=== PATIENT | female | born 1950 | race Caucasian/White ===

== ENCOUNTER → 2018-06-05 07:39 | Outpatient (CLI) | payer MEDICARE, SELFPAY ==
--- NOTE | 2018-06-05 07:43 | CT_ITS ---
CT abdomen pelvis wo con CLINICAL INDICATION: Right flank pain, hematuria ITS.REASON: RUQ PAIN, FLANK PAIN ORDERING PHYSICIAN: Camila Parekh PATIENT AGE: 67 years COMPARISON: 04/26/2016 TECHNIQUE: Axial images obtained with sagittal and coronal reformats. All CT scans at the facility use one or more dose reduction, viz: automated exposure control, ma/kV adjustment per patient size (including targeted exams where dose is matched to indication, i.e. head), or iterative reconstruction technique. PROCEDURE: Oral Contrast: None IV Contrast: None . FINDINGS: Lung bases are clear. Coronary artery calcifications. Prior cholecystectomy without ductal dilatation. The spleen, adrenal glands, and pancreas have an unremarkable unenhanced appearance. There are multiple bilateral nonobstructing renal calculi measuring up to 3 mm in the upper pole on the right and 4 mm in the mid polar region on the left is small bilateral renal cysts noted. No hydronephrosis. No ureteral calculi. No evidence of appendicitis. No intestinal obstruction or free air. Prior hysterectomy. No pelvic mass or abnormal fluid collection or focal inflammatory change evident. There is some sclerosis of the right SI joint with degenerative disc disease noted at the lumbosacral junction. IMPRESSION: 1. No acute finding. 2. Nonobstructing bilateral renal calculi. No hydronephrosis. No ureteral calculi.
== END ==
PROVIDERS: PCP Nurse Practitioner; Visit Provider Nurse Practitioner
DX: R10.9 Unspecified abdominal pain (principal); R10.11 Right upper quadrant pain
CPT/HCPCS: 74176

== ENCOUNTER 2018-07-14 15:21 | Outpatient (CLI) | payer MEDICARE, SELFPAY ==
[2018-07-14 14:10] VITALS: BP 144/72; PULSE 72; RESP 20; TEMP 36.9; O2SAT 98
[2018-07-14 15:00] VITALS: BP 138/74; PULSE 74; RESP 20; TEMP 36.9; O2SAT 97
[2018-07-14 16:10] VITALS: BP 152/74; PULSE 68; RESP 20; TEMP 37.1; O2SAT 95
== END 2018-07-14 16:25 | disposition home or self-care (01) ==
LOC: INF 15:21
PROVIDERS: Visit Provider Nurse Practitioner
DX: E86.0 Dehydration (principal)
CPT/HCPCS: 96360; 96361

== ENCOUNTER → 2019-02-16 13:39 | Outpatient (POV) | payer MEDICARE, SELFPAY | PROVIDERS: Visit Provider Dermatology | DX: Z00.00 Encounter for general adult medical examination without abnormal findings (principal) ==

== ENCOUNTER 2019-06-28 08:47 | Outpatient (CLI) | payer MEDICARE, SELFPAY ==
[2019-06-28 08:55] VITALS: BP 120/44; PULSE 77; RESP 20; TEMP 36.6; O2SAT 98
[2019-06-28 09:25] VITALS: BP 122/49; PULSE 79; RESP 20; O2SAT 97
[2019-06-28 09:55] VITALS: BP 118/50; PULSE 76; RESP 20; O2SAT 97
[2019-06-28 10:25] VITALS: BP 121/52; PULSE 74; RESP 20; O2SAT 98
[2019-06-28 10:55] VITALS: BP 120/47; PULSE 78; RESP 20; O2SAT 97
[2019-06-28 11:15] VITALS: BP 123/50; PULSE 74; RESP 20; O2SAT 98
[2019-06-28 11:43] LABS: POC Glucose,Bedside 386 (70-110)
[2019-06-28 13:14] LABS: POC Glucose,Bedside 510 (70-110)
== END 2019-06-28 11:15 | disposition home or self-care (01) ==
LOC: INF 08:48
PROVIDERS: PCP Family Medicine; Visit Provider Nurse Practitioner
DX: E11.65 Type 2 diabetes mellitus with hyperglycemia (principal); Z79.4 Long term (current) use of insulin
CPT/HCPCS: 82962; 96360; 96361; 96375

== ENCOUNTER 2019-12-15 08:54 | Outpatient (CLI) | payer MEDICARE, SELFPAY ==
[2019-12-15 08:59] VITALS: BMI 25.8
[2019-12-15 09:10] VITALS: BP 129/69; PULSE 67; RESP 18
[2019-12-15 09:22] LABS: Basophils # 0.1 K/mm3 (0-0.2); Basophils % 0.7 % (0.1-2.0); Eosinophils # 0.4 K/mm3 (0.0-0.4); Eosinophils % 3.7 % (0.1-12.0); Hematocrit 40.8 % (37.0-47.0); Hemoglobin 13.9 g/dL (12.2-16.2); Lymphocytes % 44.1 % (10-50); Mean Corpuscular HGB Conc 34.2 g/dL (31.8-35.4); Mean Corpuscular Hemoglobin 31.1 pg (27.0-31.2); Mean Corpuscular Volume 90.8 fl (81-99); Mean Platelet Volume 7.9 fl (7.4-10.4); Monocytes # 0.4 K/mm3 (0.1-1.0); Monocytes % 3.5 % (1.7-9.3); Neutrophils # 5.4 K/mm3 (1.8-7.8); Platelet Count 302 K/mm3 (142-424); Red Blood Count 4.49 M/mm3 (4.20-5.40); Red Cell Distribution Width 15.5 % (11.5-17.5); White Blood Count 11.2 K/mm3 (4.8-10.8)
[2019-12-15 09:34] LABS: Chloride 103 mmol/L (98-107); Potassium 5.1 mmoL/L (3.5-5.1); Sodium 136 mmol/L (136-145)
[2019-12-15 09:37] LABS: Alanine Aminotransferase 15 U/L (12-78); Albumin Level 4.1 g/dl (3.5-5.0); Albumin/Globulin Ratio 1.3 (1.1-1.8); Alkaline Phosphatase 112 U/L (38-126); Anion Gap 13.1 mEq/L (5-15); Aspartate Amino Transferase 18 U/L (14-36); Bilirubin,Total 0.4 mg/dl (0.2-1.3); Blood Urea Nitrogen 34 mg/dl (7-17); Carbon Dioxide 25 mmol/L (22.0-30.0); Creatinine Clearance Estimated 48 mL/min (50-200); Estimated Glomerular Filt Rate 40 ml/min (>60); GFR (African American) 49 ML/MIN (>60); Globulin 3.1 g/dL (1.3-3.2); Total Protein,Serum 7.2 g/dl (6.3-8.2)
[2019-12-15 09:38] LABS: Calcium 9.2 mg/dl (8.4-10.2); Glucose 374 mg/dl (74-100)
[2019-12-15 11:05] VITALS: BP 112/66; PULSE 63; RESP 18
== END 2019-12-15 11:05 | disposition home or self-care (01) ==
LOC: INF 08:56
PROVIDERS: PCP Nurse Practitioner; Visit Provider Nurse Practitioner
DX: E86.0 Dehydration (principal); R30.0 Dysuria
CPT/HCPCS: 80053; 85025; 96360; 96361; 96375; J2405

== ENCOUNTER 2020-03-17 11:25 | Inpatient (IN) | payer MEDICARE, SELFPAY ==
[2020-03-17] VITALS (11 sets, daily range): BP systolic 107–158; BP diastolic 56–78; PULSE 68–90; RESP 16–72; TEMP 36.9–38.8; O2SAT 94–99; BMI 25.9; BMI 34.0
--- NOTE | 2020-03-17 11:45 | ECG_ITS ---
APPROVED REPORT Exam: Resting ECG HR:85 bpm ECG Measurements Heart Rate 85 AXES IL 148 P 50 QRSd 88 QRS -3 QT 382 T 64 QTc 454 <Conclusion> Normal sinus rhythm Poor R Wave Progression Abnormal ECG Electronically signed by : Albert Cain, 03/17/2020 17:32:19
--- NOTE | 2020-03-17 11:52 | PC.NURSE ---
FSBS 507 pt states she drank 3 soft drinks this morning
[2020-03-17 11:53] LABS: POC Glucose,Bedside 507 (70-110)
--- NOTE | 2020-03-17 11:56 | PC.NURSE ---
Pt up to restroom
--- NOTE | 2020-03-17 12:02 | HMH.EDWEAK ---
ED Disposition Clinical Impression: DKA (diabetic ketoacidoses) Qualifiers: Diabetes mellitus type: type 2 Diabetes mellitus complication detail: without coma Qualified Code(s): E11.10 - Type 2 diabetes mellitus with ketoacidosis without coma UTI (urinary tract infection) Qualifiers: Urinary tract infection type: acute cystitis Hematuria presence: without hematuria Qualified Code(s): N30.00 - Acute cystitis without hematuria Disposition: Admitted As Inpatient Condition on Discharge: Serious - Critical Care Critical Care Time: Yes Attestation: On 03/17/20, the high probability of a clinically significant, sudden or life threatening deterioration of the following system(s) required my full and direct attention, intervention and personal management. The time I documented below is in addition to time spent performing reported procedures but includes the following listed in this critical care notation. Total Critical Care Time: 30 Vital system(s) involved:: Circulatory Failure, Metabolic Failure, Renal Failure My critical care processes included: Assessment & monitoring of V/S, Initial and Re-exams, Data Review/Interpretation, Coordinating Care, Medication Orders and management Medical Decision Making - Medical Records Medical records reviewed: Yes: I reviewed the patient's medical records. - Xu Inquiry Pt receiving controlled substance: No Vital Signs: 03/17/20 11:36 03/17/20 12:00 03/17/20 12:57 Temperature 101.6 F H Temperature Source Oral Pulse Rate Pulse Rate [Left Radial] 85 87 80 Respiratory Rate 16 Blood Pressure Blood Pressure [Right Arm] 158/65 H 139/57 L 135/56 L Blood Pressure Mean [Right Arm] 96 84 82 Blood Pressure Source [Right Arm] Automatic Cuff Automatic Cuff Blood Pressure Position Blood Pressure Position [Right Arm] Sitting Sitting Sitting 02 Sat by Pulse Oximetry 98 97 95 Oxygen Delivery Method Room Air Room Air 03/17/20 14:43 03/17/20 15:52 Temperature 98.6 F Temperature Source Oral Pulse Rate 68 Pulse Rate [Left Radial] 75 Respiratory Rate 16 Blood Pressure 121/78 Blood Pressure [Right Arm] 134/66 Blood Pressure Mean [Right Arm] 88 Blood Pressure Source [Right Arm] Automatic Cuff Blood Pressure Position Sitting Blood Pressure Position [Right Arm] Sitting 02 Sat by Pulse Oximetry 94 L Oxygen Delivery Method Room Air Room Air - Lab Data Lab Results 03/17/20 11:51: POC Glucose 507 H* 03/17/20 12:10: WBC 18.2 H, RBC 4.50, Hgb 13.9, Hct 41.8, MCV 92.9, MCH 30.9, MCHC 33.3, RDW 14.8, Plt Count 279, MPV 7.7, Neut % (Auto) 78.7, Lymph % (Auto) 16.8, [place] % (Auto) 3.3, Eos % (Auto) 0.9, Baso % (Auto) 0.3, Neut # (Auto) 14.3 H, Lymph # (Auto) 3.1, [place] # (Auto) 0.6, Eos # (Auto) 0.2, Baso # (Auto) 0.1, Total Counted 100, Neutrophils % (Manual) 79 H, Lymphocytes % (Manual) 15, Monocytes % (Manual) 5, Eosinophils % (Manual) 1, Platelet Estimate Normal, RBC Morphology Normal 03/17/20 12:10: Sodium 132 L, Potassium 4.6, Chloride 96 L, Carbon Dioxide 23, Anion Gap 17.6 H, BUN 16, Creatinine 1.00, Estimated Creat Clear 61, Estimated GFR 55 L, Est GFR ( Amer) 66, Glucose 547 H*, Calcium 9.8, Total Bilirubin 0.8, AST 24, ALT 18, Alkaline Phosphatase 141 H, Total Protein 7.0, Albumin 3.8, Globulin 3.2, Albumin/Globulin Ratio 1.2 03/17/20 12:10: Lactate 3.0 H 03/17/20 12:10: Acetone Level None detected 03/17/20 12:10: SARS-CoV-2 IgG Ab (Rapid) Negative, SARS-CoV-2 IgM Ab (Rapid) Negative 03/17/20 12:59: VBG pH 7.30 L, VBG pCO2 48.9, VBG pO2 42.2 H, VBG HCO3 23.4, VBG Total CO2 24.9, VBG O2 Saturation 75.3 H, VBG Base Excess -3.1 L 03/17/20 13:41: Urine Color Yellow, Urine Appearance Sl cloudy, Urine pH 5.5, Ur Specific [place] <= 1.005, Urine Protein Negative, Urine Glucose (UA) 3+, Urine Ketones Negative, Urine Blood Trace-i, Urine Nitrate Positive, Urine Bilirubin Negative, Urine Urobilinogen 0.2, Ur Leukocyte Esterase Negative, Urine RBC 5-10, Urine WBC 20-50, Ur Squamous
--- NOTE | 2020-03-17 12:06 | XR_ITS ---
PROCEDURE: XR CHEST PORTABLE CLINICAL HISTORY: cough COMPARISON: CR CXR CHEST(2 VIEWS-NOT PORTABLE) from 03/06/2013 CR CXR CHEST(2 VIEWS-NOT PORTABLE) from 10/06/2014 CR XR CHEST 2V from 07/06/2019 FINDINGS: The cardiomediastinal silhouette and pulmonary vascularity are within normal limits. The lungs are clear without infiltrates, suspicious nodules, or pleural effusions. No acute bony abnormalities. There is a small calcification or ossification projecting near the neck of the left humerus which could either represent a small exostoses or possibly a calcified node. IMPRESSION: No acute findings. Dictated by: Dr. Dagoberto Pineda MD 03/17/2020 12:51 Dr. Dagoberto Pineda MD in [place] 03/17/2020 12:51
[2020-03-17 12:25] LABS: Basophils # 0.1 K/mm3 (0-0.2); Basophils % 0.3 % (0.1-2.0); Eosinophils # 0.2 K/mm3 (0.0-0.4); Eosinophils % 0.9 % (0.1-12.0); Hematocrit 41.8 % (37.0-47.0); Hemoglobin 13.9 g/dL (12.2-16.2); Lymphocytes # 3.1 K/mm3 (0.7-4.5); Lymphocytes % 16.8 % (10-50); Mean Corpuscular HGB Conc 33.3 g/dL (31.8-35.4); Mean Corpuscular Hemoglobin 30.9 pg (27.0-31.2); Mean Corpuscular Volume 92.9 fl (81-99); Mean Platelet Volume 7.7 fl (7.4-10.4); Monocytes # 0.6 K/mm3 (0.1-1.0); Monocytes % 3.3 % (1.7-9.3); Neutrophils # 14.3 K/mm3 (1.8-7.8); Neutrophils % 78.7 % (37.0-80.0); Platelet Count 279 K/mm3 (142-424); Red Cell Distribution Width 14.8 % (11.5-17.5); White Blood Count 18.2 K/mm3 (4.8-10.8)
[2020-03-17 12:28] LABS: Chloride 96 mmol/L (98-107); MANUAL DIFFERENTIAL MANUAL DIFFERENTIAL (MANUAL DIFF); Potassium 4.6 mmoL/L (3.5-5.1); Sodium 132 mmol/L (136-145)
--- NOTE | 2020-03-17 12:29 | PC.NURSE ---
Rad at bedside
[2020-03-17 12:30] LABS: Blood Urea Nitrogen 16 mg/dl (7-17); Creatinine Clearance Estimated 61 mL/min (50-200); Estimated Glomerular Filt Rate 55 ml/min (>60); GFR (African American) 66 ML/MIN (>60)
[2020-03-17 12:31] LABS: Alanine Aminotransferase 18 U/L (12-78); Albumin Level 3.8 g/dl (3.5-5.0); Albumin/Globulin Ratio 1.2 (1.1-1.8); Alkaline Phosphatase 141 U/L (38-126); Anion Gap 17.6 mEq/L (5-15); Aspartate Amino Transferase 24 U/L (14-36); Bilirubin,Total 0.8 mg/dl (0.2-1.3); Calcium 9.8 mg/dl (8.4-10.2); Carbon Dioxide 23 mmol/L (22.0-30.0); Globulin 3.2 g/dL (1.3-3.2)
[2020-03-17 12:32] LABS: Glucose 547 mg/dl (74-100)
[2020-03-17 12:39] LABS: Eosinophils % 1 % (0-3); Lymphocytes % 15 % (10-50); Monocytes % 5 % (2-9); Neutrophils % 79 % (42-76); Platelet Estimate Normal; RBC Morphology Normal; Total Cells Counted 100
[2020-03-17 12:40] LABS: Acetone, Serum (Rapid) None Detected (None Detect)
[2020-03-17 13:11] LABS: VBG Base Excess -3.1 mmol/L (-2.4-2.3); VBG HCO3 23.4 mmol/L (23-30); VBG Oxygen Saturation 75.3 % (50-70); VBG PCO2 48.9 mmol/L (35-51); VBG PO2 42.2 mmol/L (28-40); VBG Total CO2 24.9 mmol/L (23-27)
[2020-03-17 14:10] LABS: Microscopic, Urine URINE MICROSCOPIC (MICROSCOPIC)
[2020-03-17 14:11] LABS: Appearance,Urine SL CLOUDY (Clear); Bilirubin,Urine Negative (Negative); Blood, Urine TRACE-I (Negative); Color,Urine YELLOW (Yellow); Glucose,Urine (UA) 3+ (Negative); Ketones,Urine Negative (Negative); Leukocyte Esterase,Urine Negative (Negative); Nitrate,Urine POSITIVE (Negative); PH,Urine 5.5 (5.0-8.5); Protein,Urine Negative (Negative); Specific Gravity, Urine <= 1.005 (1.005-1.030); Urobilinogen,Urine 0.2 EU/dl (0.2)
[2020-03-17 14:19] LABS: Bacteria,Urine 4+ /lpf; WBC,Urine 20-50 #/hpf (0-3)
--- NOTE | 2020-03-17 14:43 | PC.NURSE ---
calling dr carey at this time.
[2020-03-17 14:58] LABS: Coronavirus 19 IgG Antibody Negative (Negative); Coronavirus 19 IgM Antibody Negative (Negative)
--- NOTE | 2020-03-17 15:24 | PC.NURSE ---
REPORT CALLED TO FLOOR
[2020-03-17 16:16] LABS: Reflex Lactic Add Lactic Reflex
[2020-03-17 16:43] LABS: Lactic Acid Follow Up (RFLX 1) 2.4 mmol/L (0.7-2.1); Reflex Lactic (2 hrs) Add Lactic Reflex
--- NOTE | 2020-03-17 17:27 | HMH.HP ---
*Admission Date: 03/17/20 *Chief complaint: Weakness *History of present illness: 69-year-old female with long history of uncontrolled diabetes presented to the emergency department with generalized weakness and fever. Patient was found to have elevated blood sugars and was mildly acidotic on a venous blood gas and has been admitted for treatment of diabetic ketoacidosis. Patient reports blood sugars have been between 3 and 500 over the last several days. She has been taking her prescribed medications which does include insulin. She denies infectious symptoms of cough, shortness of breath, dysuria, urinary frequency or urgency, runny nose or sore throat, vomiting or diarrhea. Patient received fluid bolus in the emergency department and reports feeling improvement after receiving IV fluids. Patient apparently has a history of becoming dehydrated for which she will receive outpatient fluids periodically. Due to patient's fever, elevated white blood cell count, abnormal urinalysis and diabetic ketoacidosis patient was admitted for medical management. [facility] History I have reviewed the patient's past medical history: Yes Medical History: Reports:: Diabetes Mellitus Type 2, Hypertension Denies:: Diabetes Mellitus Type 1, Internal Pacemaker *Have you ever received a pneumonia vaccine?: Yes *Have you received a flu vaccine this season?: Yes Other Surgeries: No: Pacemaker - *Social History Last grade of school completed: High school graduate Smoking Status: Never smoker Alcohol Intake: never *Occupational Status:: employed Housing: house *Travel in the last 8 weeks: None Family Hx:: No significant family history Review of Systems - Review of Systems Review of systems:: pertinent systems reviewed and negative unless documented below - Constitutional Denies body ache(s), Denies chills - Eyes Denies blurry vision, Denies change in vision - *Cardiovascular Denies chest pain, Denies chest pain at rest - *Respiratory Denies change in phlegm color, Denies chest congestion, Denies cough - *Gastrointestinal Denies abdominal pain, Denies belching, Denies bloating - *Genitourinary Denies difficulty urinating, Denies frequent nighttime urination, Denies difficulty starting urination, Denies urinary incontinence - *Musculoskeletal Denies joint pain - *Neurologic Reports weakness, Denies abnormal walking, Denies abnormal hearing - Psychiatric Reports lack of enjoyment Meds Home Medications Medication Instructions Recorded Confirmed Type Aspirin [Aspirin EC 325mg Tab] 325 mg PO DAILY 10/21/18 03/17/20 History Insulin Glargine,Hum.rec.anlog 45 unit SQ DAILY 10/21/18 03/17/20 History [Lantus Insulin 100units/mL 10mL vial] Insulin Lispro [Humalog] 10 unit SQ AC 10/21/18 03/17/20 History Meloxicam [Mobic 15 mg tab] 15 mg PO DAILY 10/21/18 03/17/20 History allopurinoL [Allopurinol 300mg 300 mg PO DAILY 10/21/18 03/17/20 History tablet] Dapagliflozin/Metformin HCl 1 each PO DAILY 03/17/20 03/17/20 History [Xigduo Xr 10 mg-1,000 mg Tab] Levothyroxine Sodium 112 mcg PO DAILY 03/17/20 03/17/20 History [Levothyroxine 112mcg (0.112mg) Tab] Spironolactone 50 mg PO DAILY 03/17/20 03/17/20 History clonazePAM [Clonazepam] 1 mg PO DAILY PRN 03/17/20 03/17/20 History Allergies Allergy/AdvReac Type Severity Reaction Status Date / Time moxifloxacin Allergy Severe S-ANAPHYLAX Verified 07/06/19 15:53 IS Sulfa (Sulfonamide Allergy Mild NA-NAUSEA/V Verified 07/06/19 15:53 Antibiotics) OMITING Exam Vital signs and Labs for Last 24 Hours: Temp Pulse Resp BP Pulse Ox 98.4 F 72 72 H 107/64 L 97 03/17/20 16:00 03/17/20 16:00 03/17/20 16:00 03/17/20 16:00 03/17/20 16:00 Laboratory Results - last 24 hr 03/17/20 11:51: POC Glucose 507 H* 03/17/20 12:10: WBC 18.2 H, RBC 4.50, Hgb 13.9, Hct 41.8, MCV 92.9, MCH 30.9, MCHC 33.3, RDW 14.8, Plt Count 279, MPV 7.7, Neut % (Auto) 78.7, Ly
[2020-03-17 18:40] LABS: Chloride 105 mmol/L (98-107); Sodium 137 mmol/L (136-145)
[2020-03-17 18:41] LABS: Potassium 3.6 mmoL/L (3.5-5.1)
[2020-03-17 18:43] LABS: Anion Gap 12.6 mEq/L (5-15); Blood Urea Nitrogen 16 mg/dl (7-17); Carbon Dioxide 23 mmol/L (22.0-30.0); Creatinine Clearance Estimated 80 mL/min (50-200); Estimated Glomerular Filt Rate 55 ml/min (>60); GFR (African American) 66 ML/MIN (>60); Lactic Acid Follow up (RFLX 2) 2.5 mmol/L (0.7-2.1)
[2020-03-17 18:44] LABS: Glucose 133 mg/dl (74-100)
[2020-03-17 19:03] LABS: Calcium 8.6 mg/dl (8.4-10.2)
--- NOTE | 2020-03-17 19:15 | PC.NURSE ---
report given to donn
--- NOTE | 2020-03-17 20:24 | PC.NURSE ---
1600- FSBG 301, increased insulin gtt to 15.2units/hr 1700- fsbg 231- no changes to insulin gtt 1800- fsbg 175 no changes to insulin gtt 1900- fsbg 154 no changes to insulin gtt
[2020-03-17 22:13] LABS: POC Glucose,Bedside 301 (70-110)
[2020-03-17 22:13] LABS: POC Glucose,Bedside 231 (70-110)
[2020-03-17 22:13] LABS: POC Glucose,Bedside 154 (70-110)
[2020-03-17 22:13] LABS: POC Glucose,Bedside 175 (70-110)
[2020-03-17 22:13] LABS: POC Glucose,Bedside 142 (70-110)
[2020-03-17 22:22] LABS: POC Glucose,Bedside 129 (70-110)
[2020-03-17 22:22] LABS: POC Glucose,Bedside 98 (70-110)
[2020-03-17 23:23] LABS: POC Glucose,Bedside 150 (70-110)
[2020-03-18] VITALS (8 sets, daily range): BP systolic 107–146; BP diastolic 51–72; PULSE 66–92; RESP 16–24; TEMP 36.6–38.7; O2SAT 94–100; BMI 28.5
--- NOTE | 2020-03-18 00:23 | PC.NURSE ---
rn aware of hr, rr, and temp for 0000 vitals
[2020-03-18 00:45] LABS: Anion Gap 9.9 mEq/L (5-15); Blood Urea Nitrogen 16 mg/dl (7-17); Calcium 8.3 mg/dl (8.4-10.2); Carbon Dioxide 23 mmol/L (22.0-30.0); Chloride 107 mmol/L (98-107); Creatinine Clearance Estimated 80 mL/min (50-200); Estimated Glomerular Filt Rate 55 ml/min (>60); GFR (African American) 66 ML/MIN (>60); Glucose 209 mg/dl (74-100); Potassium 3.9 mmoL/L (3.5-5.1); Sodium 136 mmol/L (136-145)
[2020-03-18 01:21] LABS: POC Glucose,Bedside 184 (70-110)
[2020-03-18 01:21] LABS: POC Glucose,Bedside 192 (70-110)
[2020-03-18 02:41] LABS: POC Glucose,Bedside 342 (70-110)
--- NOTE | 2020-03-18 03:05 | PC.NURSE ---
Pt has been febrile this shift. Medicated per aug. notified of positive blood cultures. Repeat blood cultures per MD. Rocephin DC. Cefepime 2 GM Q12 ordered. No additional lactic at this time. Pt has been up to BR x2 this shift. Incontinent x1. Denies any discomfort with urination. During ambulation, pt noted to be unstable on feet. BSC placed at bedside. Pt has been educated on using call light when assistance is needed, but forgets. Reinforcement needed. Safety measures in place. Insulin gtt infusing @ 3.3 units/hr at this time. Titrated per protocol. No other needs. Will continue to monitor.
[2020-03-18 04:08] LABS: POC Glucose,Bedside 225 (70-110)
[2020-03-18 05:59] LABS: POC Glucose,Bedside 208 (70-110)
[2020-03-18 06:31] LABS: POC Glucose,Bedside 158 (70-110)
[2020-03-18 07:09] LABS: Basophils # 0.1 K/mm3 (0-0.2); Basophils % 0.4 % (0.1-2.0); Eosinophils % 0.1 % (0.1-12.0); Hematocrit 34.3 % (37.0-47.0); Lymphocytes # 2.7 K/mm3 (0.7-4.5); Lymphocytes % 22.9 % (10-50); Mean Corpuscular HGB Conc 33.2 g/dL (31.8-35.4); Mean Corpuscular Hemoglobin 30.6 pg (27.0-31.2); Mean Corpuscular Volume 92.2 fl (81-99); Mean Platelet Volume 7.9 fl (7.4-10.4); Monocytes # 0.5 K/mm3 (0.1-1.0); Monocytes % 4.3 % (1.7-9.3); Neutrophils # 8.7 K/mm3 (1.8-7.8); Neutrophils % 72.3 % (37.0-80.0); Red Blood Count 3.72 M/mm3 (4.20-5.40); Red Cell Distribution Width 15.1 % (11.5-17.5)
--- NOTE | 2020-03-18 08:01 | PC.NURSE ---
Insulin gtt titration 2000 - 7.6 units/hr 2100 - 3.3 units/hr 2200 1.65 units/hr 0200 - 3.3 units/hr
--- NOTE | 2020-03-18 08:09 | HMH.ACPN2 ---
Internal Medicine - PN: Subj *Date: 03/18/20 *Time: 08:09 Interval history: Patient had vomiting yesterday evening with supper. She had additional fevers overnight and blood culture appears to be growing Proteus. Exam Vital signs and Labs for Last 24 Hours: Temp Pulse Resp BP Pulse Ox 97.8 F 67 20 113/63 96 03/18/20 04:00 03/18/20 04:00 03/18/20 04:00 03/18/20 04:00 03/18/20 04:00 Laboratory Results - last 24 hr 03/17/20 11:51: POC Glucose 507 H* 03/17/20 12:10: WBC 18.2 H, RBC 4.50, Hgb 13.9, Hct 41.8, MCV 92.9, MCH 30.9, MCHC 33.3, RDW 14.8, Plt Count 279, MPV 7.7, Neut % (Auto) 78.7, Lymph % (Auto) 16.8, [place] % (Auto) 3.3, Eos % (Auto) 0.9, Baso % (Auto) 0.3, Neut # (Auto) 14.3 H, Lymph # (Auto) 3.1, [place] # (Auto) 0.6, Eos # (Auto) 0.2, Baso # (Auto) 0.1, Total Counted 100, Neutrophils % (Manual) 79 H, Lymphocytes % (Manual) 15, Monocytes % (Manual) 5, Eosinophils % (Manual) 1, Platelet Estimate Normal, RBC Morphology Normal 03/17/20 12:10: Sodium 132 L, Potassium 4.6, Chloride 96 L, Carbon Dioxide 23, Anion Gap 17.6 H, BUN 16, Creatinine 1.00, Estimated Creat Clear 61, Estimated GFR 55 L, Est GFR ( Amer) 66, Glucose 547 H*, Calcium 9.8, Total Bilirubin 0.8, AST 24, ALT 18, Alkaline Phosphatase 141 H, Total Protein 7.0, Albumin 3.8, Globulin 3.2, Albumin/Globulin Ratio 1.2 03/17/20 12:10: Lactate 3.0 H 03/17/20 12:10: Acetone Level None detected 03/17/20 12:10: SARS-CoV-2 IgG Ab (Rapid) Negative, SARS-CoV-2 IgM Ab (Rapid) Negative 03/17/20 12:59: VBG pH 7.30 L, VBG pCO2 48.9, VBG pO2 42.2 H, VBG HCO3 23.4, VBG Total CO2 24.9, VBG O2 Saturation 75.3 H, VBG Base Excess -3.1 L 03/17/20 13:41: Urine Color Yellow, Urine Appearance Sl cloudy, Urine pH 5.5, Ur Specific [place] <= 1.005, Urine Protein Negative, Urine Glucose (UA) 3+, Urine Ketones Negative, Urine Blood Trace-i, Urine Nitrate Positive, Urine Bilirubin Negative, Urine Urobilinogen 0.2, Ur Leukocyte Esterase Negative, Urine RBC 5-10, Urine WBC 20-50, Ur Squamous Epith Cells 5-10, Urine Bacteria 4+ 03/17/20 16:09: POC Glucose 301 H* 03/17/20 16:26: Lactate 2.4 H 03/17/20 17:07: POC Glucose 231 H 03/17/20 18:03: POC Glucose 175 H 03/17/20 18:28: Sodium 137, Potassium 3.6 D, Chloride 105, Carbon Dioxide 23, Anion Gap 12.6, BUN 16, Creatinine 1.00, Estimated Creat Clear 80, Estimated GFR 55 L, Est GFR ( Amer) 66, Glucose 133 H D, Calcium 8.6 D 03/17/20 18:28: Lactate 2.5 H 03/17/20 18:39: POC Glucose 154 H 03/17/20 19:21: POC Glucose 142 H 03/17/20 21:07: POC Glucose 98 03/17/20 22:12: POC Glucose 129 H 03/17/20 23:01: POC Glucose 150 H 03/18/20 00:08: POC Glucose 184 H 03/18/20 00:10: Sodium 136, Potassium 3.9, Chloride 107, Carbon Dioxide 23, Anion Gap 9.9, BUN 16, Creatinine 1.00, Estimated Creat Clear 80, Estimated GFR 55 L, Est GFR ( Amer) 66, Glucose 209 H D, Calcium 8.3 L 03/18/20 00:58: POC Glucose 192 H 03/18/20 02:13: POC Glucose 342 H* 03/18/20 03:55: POC Glucose 225 H 03/18/20 05:17: POC Glucose 208 H 03/18/20 06:19: POC Glucose 158 H 03/18/20 06:29: WBC 12.0 H D, RBC 3.72 L, Hct 34.3 L, MCV 92.2, MCH 30.6, MCHC 33.2, RDW 15.1, Plt Count 204 D, MPV 7.9, Neut % (Auto) 72.3, Lymph % (Auto) 22.9, [place] % (Auto) 4.3, Eos % (Auto) 0.1, Baso % (Auto) 0.4, Neut # (Auto) 8.7 H, Lymph # (Auto) 2.7, [place] # (Auto) 0.5, Eos # (Auto) 0.0, Baso # (Auto) 0.1 I & O for Last 24 hours: Intake & Output 03/15/20 03/16/20 03/17/20 03/18/20 11:59 11:59 11:59 11:59 Intake Total 0 / 0 Output Total 300 / 300 Balance -300 / -300 Weight 166 lb 182 lb 3 oz Microbiology Reports for the Last 24 Hours: Microbiology 03/17/20 12:13 Blood Blood Culture - Preliminary 03/17/20 12:13 Blood Blood Culture - Preliminary - Constitutional no acute distress - *Routine Neck Exam Present: supple. Absent: lymphadenopathy - *Routine Respiratory Exam Present: CTA bilaterally - *Routine Cardiovascular Exam Present: RRR Assessment a
[2020-03-18 08:28] LABS: POC Glucose,Bedside 141 (70-110)
[2020-03-18 08:29] LABS: Chloride 110 mmol/L (98-107); Sodium 138 mmol/L (136-145)
[2020-03-18 08:30] LABS: Potassium 3.8 mmoL/L (3.5-5.1)
[2020-03-18 08:32] LABS: Blood Urea Nitrogen 16 mg/dl (7-17); Creatinine Clearance Estimated 67 mL/min (50-200); Estimated Glomerular Filt Rate 62 ml/min (>60); GFR (African American) 75 ML/MIN (>60)
[2020-03-18 08:33] LABS: Anion Gap 9.8 mEq/L (5-15); Carbon Dioxide 22 mmol/L (22.0-30.0); Glucose 160 mg/dl (74-100)
[2020-03-18 10:30] LABS: Hemoglobin A1C 13.7 % (4.0-6.0)
[2020-03-18 11:53] LABS: Hemoglobin 11.4 g/dL (12.2-16.2)
[2020-03-18 11:54] LABS: Platelet Count 204 K/mm3 (142-424)
[2020-03-18 12:37] LABS: POC Glucose,Bedside 170 (70-110)
--- NOTE | 2020-03-18 14:59 | HMH.PHAVTE ---
[facility] Pharmacy VTE Monitoring - Patient Demographics Admission date: 03/17/20 Report Date: 03/18/20 Time: 14:59 Allergies/Adverse Reactions: Patient Allergies moxifloxacin Allergy (Severe, Verified 07/06/19 15:53) S-ANAPHYLAXIS Sulfa (Sulfonamide Antibiotics) Allergy (Mild, Verified 07/06/19 15:53) NA-NAUSEA/VOMITING Height: 1.7 m Weight: 82.639 kg Patient Problems: Current Active Problems DKA (diabetic ketoacidoses) (Acute) UTI (urinary tract infection) (Acute) Essential hypertension (Acute) Gram-negative bacteremia (Acute) - VTE Risk Labs: VTE Related Lab Results Hgb 11.4 g/dL (12.2-16.2) L D 03/18/20 06:29 Hct 34.3 % (37.0-47.0) L 03/18/20 06:29 Plt Count 204 K/mm3 (142-424) D 03/18/20 06:29 BUN 16 mg/dl (7-17) 03/18/20 06:29 Creatinine 0.90 mg/dl (0.52-1.04) 03/18/20 06:29 Estimated Creat Clear 67 mL/min (50-200) 03/18/20 06:29 Was VTE Risk Assessment Performed: Yes VTE Score: 2 VTE Risk Level: Low Risk - Prophylaxis VTE Prophylaxis Ordered?: Yes Types of VTE Prophylaxis: TEDS Knee High Location of Applied Device: Bilateral Lower Extremeties
--- NOTE | 2020-03-18 15:07 | HMH.PHAINT ---
MEDICATION RECONCILIATION COMPLETED ON PATIENT USING EXTERNAL FILL HISTORY FROM PHARMACY. -RITO RIOS, LORID
[2020-03-18 16:39] LABS: POC Glucose,Bedside 178 (70-110)
--- NOTE | 2020-03-18 18:10 | PC.NURSE ---
ALERT AND ORIENTED X4. PT AMBULATES INDEPENDENTLY TO BATHROOM. ADEQUATE PO INTAKE. ABDOMEN IS SOFT, NON-TENDER WITH ACTIVE BS IN ALL QUADS. PT VOIDS CLEAR DARK YELLOW URINE VIA COMMODE WITHOUT ISSUES. FSBS HAVE REMAINED STABLE. LUNGS CTA. PT DENIES PAIN. VSS. IV IS SECURE, PATENT, AND INFUSING IVF. FALL PREVENTION EDUCATION PROVIDED. SAFETY MEASURES IN PLACE, WILL CONTINUE TO MONITOR
[2020-03-18 20:41] LABS: POC Glucose,Bedside 232 (70-110)
[2020-03-19 04:43] VITALS: BP 115/55; PULSE 72; RESP 17; TEMP 37.3; O2SAT 96
[2020-03-19 05:05] VITALS: BMI 28.8
[2020-03-19 05:59] LABS: POC Glucose,Bedside 92 (70-110)
[2020-03-19 07:05] LABS: Basophils % 0.4 % (0.1-2.0); Eosinophils # 0.2 K/mm3 (0.0-0.4); Eosinophils % 2.3 % (0.1-12.0); Hematocrit 31.8 % (37.0-47.0); Lymphocytes # 3.3 K/mm3 (0.7-4.5); Lymphocytes % 38.2 % (10-50); Mean Corpuscular HGB Conc 34.7 g/dL (31.8-35.4); Mean Corpuscular Hemoglobin 31.2 pg (27.0-31.2); Mean Corpuscular Volume 89.9 fl (81-99); Mean Platelet Volume 7.9 fl (7.4-10.4); Monocytes # 0.5 K/mm3 (0.1-1.0); Monocytes % 5.3 % (1.7-9.3); Neutrophils # 4.7 K/mm3 (1.8-7.8); Neutrophils % 53.8 % (37.0-80.0); Platelet Count 189 K/mm3 (142-424); Red Blood Count 3.54 M/mm3 (4.20-5.40); Red Cell Distribution Width 15.2 % (11.5-17.5); White Blood Count 8.7 K/mm3 (4.8-10.8)
[2020-03-19 07:08] LABS: Chloride 110 mmol/L (98-107); Potassium 3.8 mmoL/L (3.5-5.1); Sodium 136 mmol/L (136-145)
[2020-03-19 07:11] LABS: Anion Gap 7.8 mEq/L (5-15); Blood Urea Nitrogen 11 mg/dl (7-17); Carbon Dioxide 22 mmol/L (22.0-30.0); Creatinine Clearance Estimated 68 mL/min (50-200); Estimated Glomerular Filt Rate 82 ml/min (>60); GFR (African American) 100 ML/MIN (>60)
[2020-03-19 07:12] LABS: Calcium 8.1 mg/dl (8.4-10.2)
[2020-03-19 07:16] LABS: Glucose 109 mg/dl (74-100)
[2020-03-19 07:41] VITALS: BP 121/55; PULSE 71; RESP 20; TEMP 36.9; O2SAT 97
--- NOTE | 2020-03-19 08:33 | HMH.DCSUM ---
General - General Admission date:: 03/17/20 Discharge date: 03/19/20 HPI HPI: 69-year-old female with long history of uncontrolled diabetes presented to the emergency department with generalized weakness and fever. Patient was found to have elevated blood sugars and was mildly acidotic on a venous blood gas and has been admitted for treatment of diabetic ketoacidosis. Patient reports blood sugars have been between 3 and 500 over the last several days. She has been taking her prescribed medications which does include insulin. She denies infectious symptoms of cough, shortness of breath, dysuria, urinary frequency or urgency, runny nose or sore throat, vomiting or diarrhea. Patient received fluid bolus in the emergency department and reports feeling improvement after receiving IV fluids. Patient apparently has a history of becoming dehydrated for which she will receive outpatient fluids periodically. Due to patient's fever, elevated white blood cell count, abnormal urinalysis and diabetic ketoacidosis patient was admitted for medical management. Hospital Course Hospital Course: Patient was admitted and initially placed on insulin drip and treated for diabetic ketoacidosis. Blood sugars responded appropriately and by the following morning patient was transitioned to a basal bolus regimen of insulin. Patient was placed on Lantus and lispro for sliding scale coverage. This kept her blood sugars in the low 200s to 100s. Patient was able to eat without incident. She was ambulating independently. Ketoacidosis resolved and on March 19 patient was discharged home. Patient had urinary tract infection identified on admission as well as fever. Patient was initially started on Rocephin but due to persistence of fevers was transitioned to cefepime. Fevers resolved within 24 hours of admission. Ultimately both urine and blood cultures grew Klebsiella pneumonia that was sensitive to Rocephin. Patient will need a 7-day course of IV Rocephin. Patient was given Rocephin on admission and continued cefepime. She was transitioned back to Rocephin on the day of discharge and will receive 5 additional doses ending on March 24 as an outpatient. Patient was discharged home on March 19. She will follow-up in the office with her primary care provider on March 22 Objective Vital signs: Temp Pulse Resp BP Pulse Ox 98.4 F 71 20 121/55 L 97 03/19/20 07:41 03/19/20 07:41 03/19/20 07:41 03/19/20 07:41 03/19/20 07:41 no acute distress - *Routine Respiratory Exam Present: CTA bilaterally - *Routine Cardiovascular Exam Present: RRR - *Routine Abdominal Exam Present: soft, normoactive bowel sounds. Absent: tenderness Results Labs on day of discharge: Labs from last 24 hours 03/19/20 03/19/20 03/19/20 06:21 06:21 05:49 WBC 8.7 D RBC 3.54 L Hgb 11.0 L Hct 31.8 L MCV 89.9 MCH 31.2 MCHC 34.7 RDW 15.2 Plt Count 189 MPV 7.9 Neut % (Auto) 53.8 Lymph % (Auto) 38.2 [place] % (Auto) 5.3 Eos % (Auto) 2.3 Baso % (Auto) 0.4 Neut # (Auto) 4.7 Lymph # (Auto) 3.3 [place] # (Auto) 0.5 Eos # (Auto) 0.2 Baso # (Auto) 0.0 Sodium 136 Potassium 3.8 Chloride 110 H Carbon Dioxide 22 Anion Gap 7.8 BUN 11 D Creatinine 0.70 D Estimated Creat Clear 68 Estimated GFR 82 Est GFR ( Amer) 100 D Glucose 109 H D POC Glucose 92 Hemoglobin A1c Calcium 8.1 L Urine Color Urine Appearance Urine pH Ur Specific [place] Urine Protein Urine Glucose (UA) Urine Ketones Urine Blood Urine Nitrate Urine Bilirubin Urine Urobilinogen Ur Leukocyte Esterase Urine RBC Urine WBC Ur Squamous Epith Cells Urine Bacteria 03/18/20 03/18/20 03/18/20 20:19 16:27 12:26 WBC RBC Hgb Hct MCV MCH MCHC RDW Plt Count MPV Neut % (Auto)
--- NOTE | 2020-03-19 09:30 | HMH.PHAINT ---
DISCHARGE COUNSELING COMPLETED ON PATIENT. NEW PRESCRIPTIONS INCLUDE ROCEPHIN TO BE GIVEN IN OUTPATIENT INFUSION AND METFORMIN WITH WILL BE REPLACING PATIENT'S XIGDUO. PATIENT IS TO CONTINUE ALL OTHER HOME MEDICATIONS. PATIENT VERBALIZED UNDERSTANDING AND HAD NO QUESTIONS AT THIS TIME. -RITO RIOS, LORID
== END 2020-03-19 09:45 | disposition home or self-care (01) | DRG 638 ==
LOC: ER 11:45 → 2ND 14:54
PROVIDERS: Admitting Provider Family Medicine; Emergency Provider Emergency Medicine; PCP Family Medicine; Visit Provider Family Medicine
DX: E11.10 Type 2 diabetes mellitus with ketoacidosis without coma (principal); N39.0 Urinary tract infection, site not specified; R78.81 Bacteremia; Z79.4 Long term (current) use of insulin; I10 Essential (primary) hypertension; E03.9 Hypothyroidism, unspecified
CPT/HCPCS: 36415; 71045; 80048; 80053; 81001; 82009; 82803; 82962; 83036; 83605; 85007; 85025; 86328; 87040; 87077; 87086; 87088; 87186; 93005; 96365; 96366; 96367; 96375; 99285; J2405

== ENCOUNTER 2020-03-20 09:15 | Outpatient (CLI) | payer MEDICARE, SELFPAY ==
[2020-03-20 09:30] VITALS: BP 133/77; PULSE 61; RESP 19; TEMP 36.7; O2SAT 100
[2020-03-20 10:21] VITALS: BP 125/68; PULSE 60; RESP 18
== END 2020-03-20 10:21 | disposition home or self-care (01) ==
LOC: INF 09:16
PROVIDERS: PCP Family Medicine; Visit Provider Family Medicine
DX: N39.0 Urinary tract infection, site not specified (principal); B96.1 Klebsiella pneumoniae [K. pneumoniae] as the cause of diseases classified elsewhere; R78.81 Bacteremia
CPT/HCPCS: 96365

== ENCOUNTER 2020-03-21 08:41 | Outpatient (CLI) | payer MEDICARE, SELFPAY ==
[2020-03-21 08:56] VITALS: BP 142/67; PULSE 56; RESP 18; TEMP 36.4; O2SAT 99
[2020-03-21 09:40] VITALS: BP 132/68; PULSE 58; RESP 18; TEMP 36.5; O2SAT 100
== END 2020-03-21 09:45 | disposition home or self-care (01) ==
LOC: INF 08:41
PROVIDERS: Visit Provider Family Medicine
DX: N39.0 Urinary tract infection, site not specified (principal); B96.1 Klebsiella pneumoniae [K. pneumoniae] as the cause of diseases classified elsewhere; R78.81 Bacteremia
CPT/HCPCS: 96365

== ENCOUNTER 2020-03-22 09:00 | Outpatient (CLI) | payer MEDICARE, SELFPAY ==
[2020-03-22 09:25] VITALS: BP 142/77; PULSE 62; RESP 20; TEMP 36.3; O2SAT 98
[2020-03-22 10:05] VITALS: BP 127/61; PULSE 60; RESP 18
== END 2020-03-22 10:20 | disposition home or self-care (01) ==
LOC: INF 09:04
PROVIDERS: Visit Provider Family Medicine
DX: N39.0 Urinary tract infection, site not specified (principal); B96.1 Klebsiella pneumoniae [K. pneumoniae] as the cause of diseases classified elsewhere; R78.81 Bacteremia
CPT/HCPCS: 96365

== ENCOUNTER 2020-03-23 08:25 | Outpatient (CLI) | payer MEDICARE, SELFPAY ==
[2020-03-23 08:37] VITALS: BP 137/68; PULSE 57; RESP 18; O2SAT 98
[2020-03-23 09:30] VITALS: BP 145/74; PULSE 59; RESP 18
== END 2020-03-23 09:30 | disposition home or self-care (01) ==
LOC: INF 08:27
PROVIDERS: Visit Provider Family Medicine
DX: N39.0 Urinary tract infection, site not specified (principal); B96.1 Klebsiella pneumoniae [K. pneumoniae] as the cause of diseases classified elsewhere; R78.81 Bacteremia
CPT/HCPCS: 96365

== ENCOUNTER 2020-03-24 08:20 | Outpatient (CLI) | payer MEDICARE, SELFPAY ==
[2020-03-24 08:50] VITALS: BP 152/65; PULSE 55; RESP 18; O2SAT 97
[2020-03-24 09:25] VITALS: BP 133/65; PULSE 48; RESP 18
== END 2020-03-24 09:40 | disposition home or self-care (01) ==
LOC: INF 08:30
PROVIDERS: Visit Provider Family Medicine
DX: N39.0 Urinary tract infection, site not specified (principal); B96.1 Klebsiella pneumoniae [K. pneumoniae] as the cause of diseases classified elsewhere; R78.81 Bacteremia
CPT/HCPCS: 96365

== ENCOUNTER → 2020-04-05 12:14 | Outpatient (CLI) | payer MEDICARE, SELFPAY | PROVIDERS: PCP Nurse Practitioner; Visit Provider Nurse Practitioner | DX: R00.1 Bradycardia, unspecified (principal) | CPT/HCPCS: 93225; 93226 ==

== ENCOUNTER → 2020-06-01 09:18 | Outpatient (CLI) | payer MEDICARE, SELFPAY ==
--- NOTE | 2020-06-01 09:24 | XR_ITS ---
PROCEDURE: XR RIBS LT MIN 3V W CXR1V CLINICAL INDICATION: LT RIB PAIN COMPARISON: CR CXR CHEST(2 VIEWS-NOT PORTABLE) from 10/06/2014 CR XR CHEST 2V from 07/06/2019 CR XR CHEST PORTABLE from 03/17/2020 FINDINGS: Frontal view of the chest shows no acute finding. Multiple views of the left ribs are obtained showing no acute fracture. No lytic or blastic change. There is some minimal atelectatic or fibrotic change in the left lung base IMPRESSION: No acute fracture apparent. Consider volumetric CT with 3D reformats if pain persists. Dictated by: Nakul Strickland MD 06/01/2020 17:37 Nakul Strickland MD in [facility] 06/01/2020 17:37
== END ==
PROVIDERS: PCP Nurse Practitioner; Visit Provider Nurse Practitioner
DX: R07.81 Pleurodynia (principal)
CPT/HCPCS: 71101

== ENCOUNTER 2020-07-17 10:26 | Emergency (ER) | payer MEDICARE, SELFPAY ==
[2020-07-17 10:34] VITALS: BP 129/67; PULSE 88; RESP 18; TEMP 36.6; O2SAT 98; BMI 24.3
[2020-07-17 10:42] VITALS: BMI 24.3
--- NOTE | 2020-07-17 10:44 | XR_ITS ---
PROCEDURE: XR CHEST PORTABLE CLINICAL HISTORY: cough COMPARISON: CR XR CHEST 2V from 07/06/2019 CR XR CHEST PORTABLE from 03/17/2020 CR XR RIBS LT MIN 3V W CXR1V from 06/01/2020 FINDINGS: The cardiomediastinal silhouette and pulmonary vascularity are within normal limits. The lungs are clear without infiltrates, suspicious nodules, or pleural effusions. No acute bony abnormalities. IMPRESSION: No acute findings. Dictated by: Nakul Strickland MD 07/17/2020 11:09 Nakul Strickland MD in [facility] 07/17/2020 11:09
--- NOTE | 2020-07-17 10:49 | HMH.EDGENADL ---
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 The time I documented below is in addition to time spent performing reported procedures but includes the following listed in this critical care notation. Medical Decision Making - Medical Records Medical records reviewed: Yes: I reviewed the patient's medical records. - Xu Inquiry Pt receiving controlled substance: No Vital Signs: 07/17/20 10:34 07/17/20 11:30 07/17/20 12:00 Temperature 97.9 F Temperature Source Oral Pulse Rate [Right Radial] 88 68 68 Respiratory Rate 18 Blood Pressure [Right Arm] 129/67 136/62 147/66 H Blood Pressure Mean [Right Arm] 87 86 93 Blood Pressure Source [Right Arm] Manual Cuff/ Doppler Automatic Cuff Blood Pressure Position [Right Arm] Sitting Sitting 02 Sat by Pulse Oximetry 98 99 97 Oxygen Delivery Method Room Air Room Air Room Air 07/17/20 12:30 07/17/20 13:00 Temperature Temperature Source Pulse Rate [Right Radial] 65 70 Respiratory Rate Blood Pressure [Right Arm] 141/70 H 136/68 Blood Pressure Mean [Right Arm] 93 90 Blood Pressure Source [Right Arm] Automatic Cuff Automatic Cuff Blood Pressure Position [Right Arm] Sitting Sitting 02 Sat by Pulse Oximetry 98 97 Oxygen Delivery Method Room Air Room Air - Lab Data Lab Results 07/17/20 10:50: Urine Color Yellow, Urine Appearance Cloudy, Urine pH 6.0, Ur Specific [place] >= 1.030, Urine Protein 1+, Urine Glucose (UA) 3+, Urine Ketones Negative, Urine Blood Negative, Urine Nitrate Negative, Urine Bilirubin Negative, Urine Urobilinogen 0.2, Ur Leukocyte Esterase Trace, Urine RBC Occasional, Urine WBC 5-10, Ur Squamous Epith Cells 5-10, Urine Bacteria 1+ 07/17/20 11:00: WBC 16.4 H, RBC 5.84 H, Hgb 17.2 H, Hct 52.9 H, MCV 90.7, MCH 29.4, MCHC 32.4, RDW 16.5, Plt Count 334, MPV 11.8 H, Neut % (Auto) 51.6, Lymph % (Auto) 42.2, [place] % (Auto) 2.8, Eos % (Auto) 2.1, Baso % (Auto) 1.3, Neut # (Auto) 8.5 H, Lymph # (Auto) 6.9 H, [place] # (Auto) 0.5, Eos # (Auto) 0.4, Baso # (Auto) 0.2, Total Counted 100, Neutrophils % (Manual) 57, Lymphocytes % (Manual) 38, Monocytes % (Manual) 4, Eosinophils % (Manual) 1, Platelet Estimate Normal, RBC Morphology Normal 07/17/20 11:00: Sodium 135 L, Potassium 3.6, Chloride 95 L, Carbon Dioxide 28, Anion Gap 15.6 H, BUN 36 H, Creatinine 1.80 H, Estimated Creat Clear 33, Estimated GFR 28 L, Est GFR ( Amer) 34 L, Glucose 304 H, Calcium 10.0, Total Bilirubin 0.5, AST 24, ALT 17, Alkaline Phosphatase 118, Total Protein 8.2, Albumin 4.7, Globulin 3.5 H, Albumin/Globulin Ratio 1.3, Lipase 208, Acetone Level None detected 07/17/20 11:00: SARS-CoV-2 IgG Ab (Rapid) Negative, SARS-CoV-2 IgM Ab (Rapid) Negative 07/17/20 11:00: Lactate 2.3 H Result diagrams: 07/17/20 11:00 07/17/20 11:00 Orders (Tests/Meds): ED MEDICATIONS Discontinued Medications Generic Name Dose Route Start Last Admin Trade Name Freq PRN Reason Stop Dose Admin Sodium Chloride 1,000 mls @ 999 mls/hr 07/17/20 10:45 07/17/20 10:57 Sod Chlor 0.9% 1000ml Bag IV 07/17/20 11:45 999 mls/hr .Q1H1M WILFREDO Administration ORDERS Category Date Time Status CT abd
[2020-07-17 10:56] LABS: Microscopic, Urine URINE MICROSCOPIC (MICROSCOPIC)
[2020-07-17 10:59] LABS: Appearance,Urine CLOUDY (Clear); Bilirubin,Urine Negative (Negative); Blood, Urine Negative (Negative); Color,Urine YELLOW (Yellow); Glucose,Urine (UA) 3+ (Negative); Ketones,Urine Negative (Negative); Leukocyte Esterase,Urine TRACE (Negative); Nitrate,Urine Negative (Negative); Protein,Urine 1+ (Negative); Specific Gravity, Urine >= 1.030 (1.005-1.030); Urobilinogen,Urine 0.2 EU/dl (0.2)
[2020-07-17 11:09] LABS: Bacteria,Urine 1+ /lpf; RBC,Urine Occasional #/hpf (0-3)
[2020-07-17 11:16] LABS: Basophils # 0.2 K/mm3 (0-0.2); Basophils % 1.3 % (0.1-2.0); Eosinophils # 0.4 K/mm3 (0.0-0.4); Eosinophils % 2.1 % (0.1-12.0); Hematocrit 52.9 % (37.0-47.0); Hemoglobin 17.2 g/dL (12.2-16.2); Lymphocytes # 6.9 K/mm3 (0.7-4.5); Lymphocytes % 42.2 % (10-50); Mean Corpuscular HGB Conc 32.4 g/dL (31.8-35.4); Mean Corpuscular Hemoglobin 29.4 pg (27.0-31.2); Mean Corpuscular Volume 90.7 fl (81-99); Mean Platelet Volume 11.8 fl (7.4-10.4); Monocytes # 0.5 K/mm3 (0.1-1.0); Monocytes % 2.8 % (1.7-9.3); Neutrophils # 8.5 K/mm3 (1.8-7.8); Neutrophils % 51.6 % (37.0-80.0); Platelet Count 334 K/mm3 (142-424); Red Blood Count 5.84 M/mm3 (4.20-5.40); Red Cell Distribution Width 16.5 % (11.5-17.5); White Blood Count 16.4 K/mm3 (4.8-10.8)
[2020-07-17 11:17] LABS: MANUAL DIFFERENTIAL MANUAL DIFFERENTIAL (MANUAL DIFF)
[2020-07-17 11:23] LABS: Eosinophils % 1 % (0-3); Lymphocytes % 38 % (10-50); Monocytes % 4 % (2-9); Neutrophils % 57 % (42-76); Platelet Estimate Normal; RBC Morphology Normal; Total Cells Counted 100
[2020-07-17 11:25] LABS: Acetone, Serum (Rapid) None Detected (None Detect)
[2020-07-17 11:27] LABS: Alanine Aminotransferase 17 U/L (12-78); Albumin Level 4.7 g/dl (3.5-5.0); Albumin/Globulin Ratio 1.3 (1.1-1.8); Alkaline Phosphatase 118 U/L (38-126); Anion Gap 15.6 mEq/L (5-15); Aspartate Amino Transferase 24 U/L (14-36); Bilirubin,Total 0.5 mg/dl (0.2-1.3); Blood Urea Nitrogen 36 mg/dl (7-17); Carbon Dioxide 28 mmol/L (22.0-30.0); Chloride 95 mmol/L (98-107); Creatinine Clearance Estimated 33 mL/min (50-200); Estimated Glomerular Filt Rate 28 ml/min (>60); GFR (African American) 34 ML/MIN (>60); Globulin 3.5 g/dL (1.3-3.2); Glucose 304 mg/dl (74-100); Lipase 208 U/L (23-300); Potassium 3.6 mmoL/L (3.5-5.1); Sodium 135 mmol/L (136-145); Total Protein,Serum 8.2 g/dl (6.3-8.2)
[2020-07-17 11:30] VITALS: BP 136/62; PULSE 68; O2SAT 99
[2020-07-17 11:43] LABS: Coronavirus 19 IgG Antibody Negative (Negative); Coronavirus 19 IgM Antibody Negative (Negative)
[2020-07-17 12:00] VITALS: BP 147/66; PULSE 68; O2SAT 97
[2020-07-17 12:22] LABS: Lactic Acid 2.3 mmol/L (0.7-2.1)
[2020-07-17 12:30] VITALS: BP 141/70; PULSE 65; O2SAT 98
--- NOTE | 2020-07-17 12:56 | CT_ITS ---
PROCEDURE: CT ABDOMEN PELVIS WO CON CLINICAL INDICATION: diarrhea COMPARISON: CT ABDPELWO CT abdomen pelvis wo con from 10/21/2018 TECHNIQUE: Axial images obtained with sagittal and coronal reformats. All CT scans at the facility use one or more dose reduction, viz: automated exposure control, ma/kV adjustment per patient size (including targeted exams where dose is matched to indication, i.e. head), or iterative reconstruction technique. FINDINGS: LOWER THORAX: No acute finding ABDOMEN & PELVIS: There has been a prior cholecystectomy. There is mild diffuse vascular calcification. The liver, spleen, adrenal glands, pancreas, have an unremarkable appearance. Nonobstructing renal calculi are noted bilaterally a 2 cm cyst is present in the lower pole of the right kidney. Nonobstructing bilateral renal calculi are present. No evidence of appendicitis. Has been a prior hysterectomy. Nondistended fluid-filled loops of small and large bowel noted with a few scattered air-fluid levels. Degenerative disc disease L5-S1. There are few scattered sclerotic foci within the pelvis which may be due to bone islands. IMPRESSION: 1. Possible enterocolitis 2. Nonobstructing bilateral renal calculi Dictated by: Nakul Strickland MD 07/17/2020 16:30 Nakul Strickland MD in [facility] 07/17/2020 16:30
[2020-07-17 13:00] VITALS: BP 136/68; PULSE 70; O2SAT 97
--- NOTE | 2020-07-17 13:08 | PC.NURSE ---
notified Rad of CT order
[2020-07-17 14:31] VITALS: BP 123/65; PULSE 65; RESP 18; TEMP 36.6; O2SAT 96
[2020-07-17 14:55] LABS: Reflex Lactic No Lactic Reflex
== END 2020-07-17 14:33 | disposition home or self-care (01) ==
PROVIDERS: Emergency Provider Emergency Medicine; PCP Family Medicine
DX: K52.9 Noninfective gastroenteritis and colitis, unspecified (principal); I10 Essential (primary) hypertension; E11.65 Type 2 diabetes mellitus with hyperglycemia; Z79.4 Long term (current) use of insulin; E03.9 Hypothyroidism, unspecified; Z01.84 Encounter for antibody response examination; Z79.899 Other long term (current) drug therapy
CPT/HCPCS: 71045; 74176; 80053; 81001; 82009; 83605; 83690; 85007; 85025; 86328; 87040; 96365; 99284

== ENCOUNTER 2020-07-24 11:10 | Outpatient (CLI) | payer MEDICARE, SELFPAY ==
[2020-07-24 11:15] VITALS: BP 130/81; PULSE 75; RESP 18; TEMP 36.9; O2SAT 98
[2020-07-24 13:20] VITALS: BP 157/76; PULSE 66; RESP 18
== END 2020-07-24 13:20 | disposition home or self-care (01) ==
LOC: INF 11:18
PROVIDERS: Visit Provider Nurse Practitioner
DX: E86.0 Dehydration (principal)
CPT/HCPCS: 96360; 96361

== ENCOUNTER → 2020-07-28 14:25 | Outpatient (CLI) | payer MEDICARE, SELFPAY ==
--- NOTE | 2020-07-28 14:28 | US_ITS ---
PROCEDURE: US KIDNEY CLINICAL INDICATION: KIDNEY CYSTS COMPARISON: CT CT ABDOMEN PELVIS WO CON from 07/17/2020 FINDINGS: The right kidney is 13 x 11 by cm. Left kidney is 16 12 x 5 cm. There is bilateral renal cortical thinning. There is a 2.6 x 1.8 cm cyst along the lower pole of the right kidney. No hydronephrosis. IMPRESSION: 1. Bilateral renal cortical thinning without hydronephrosis. 2. Small right renal cyst Dictated by: Nakul Strickland MD 07/28/2020 17:39 Nakul Strickland MD in [facility] 07/28/2020 17:39
== END ==
PROVIDERS: PCP Nurse Practitioner; Visit Provider Nurse Practitioner
DX: N28.1 Cyst of kidney, acquired (principal)
CPT/HCPCS: 76770

== ENCOUNTER → 2020-09-14 08:53 | Outpatient (CLI) | payer MEDICARE, SELFPAY ==
[2020-09-14 09:07] LABS: Basophils # 0.1 K/mm3 (0-0.2); Basophils % 0.6 % (0.1-2.0); Eosinophils # 0.4 K/mm3 (0.0-0.4); Eosinophils % 3.6 % (0.1-12.0); Hematocrit 41.6 % (37.0-47.0); Hemoglobin 13.7 g/dL (12.2-16.2); Lymphocytes # 6.1 K/mm3 (0.7-4.5); Lymphocytes % 51.6 % (10-50); Mean Corpuscular Hemoglobin 30.1 pg (27.0-31.2); Mean Corpuscular Volume 91.1 fl (81-99); Mean Platelet Volume 8.2 fl (7.4-10.4); Monocytes # 0.4 K/mm3 (0.1-1.0); Monocytes % 3.5 % (1.7-9.3); Neutrophils # 4.8 K/mm3 (1.8-7.8); Neutrophils % 40.8 % (37.0-80.0); Platelet Count 308 K/mm3 (142-424); Red Blood Count 4.57 M/mm3 (4.20-5.40); Red Cell Distribution Width 16.4 % (11.5-17.5); White Blood Count 11.8 K/mm3 (4.8-10.8)
[2020-09-14 09:10] LABS: MANUAL DIFFERENTIAL MANUAL DIFFERENTIAL (MANUAL DIFF)
[2020-09-14 09:23] LABS: Alanine Aminotransferase 15 U/L (12-78); Albumin Level 4.2 g/dl (3.5-5.0); Albumin/Globulin Ratio 1.3 (1.1-1.8); Alkaline Phosphatase 104 U/L (38-126); Anion Gap 14.8 mEq/L (5-15); Aspartate Amino Transferase 23 U/L (14-36); Bilirubin,Total 0.5 mg/dl (0.2-1.3); Blood Urea Nitrogen 25 mg/dl (7-17); Calcium 9.8 mg/dl (8.4-10.2); Carbon Dioxide 25 mmol/L (22.0-30.0); Chloride 100 mmol/L (98-107); Estimated Glomerular Filt Rate 49 ml/min (>60); GFR (African American) 59 ML/MIN (>60); Globulin 3.2 g/dL (1.3-3.2); Glucose 399 mg/dl (74-100); Potassium 4.8 mmoL/L (3.5-5.1); Sodium 135 mmol/L (136-145); Total Protein,Serum 7.4 g/dl (6.3-8.2)
[2020-09-14 09:31] LABS: Eosinophils % 2 % (0-3); Lymphocytes % 48 % (10-50); Monocytes % 3 % (2-9); Neutrophils % 47 % (42-76); Platelet Estimate Normal; RBC Morphology Normal; Total Cells Counted 100
[2020-09-22 13:33] LABS: Miscellaneous Test SCANNED RESULTS
== END ==
PROVIDERS: Visit Provider Internal Medicine Hematology & Oncology
DX: D64.9 Anemia, unspecified (principal); I10 Essential (primary) hypertension
CPT/HCPCS: 36415; 80053; 85007; 85025

== ENCOUNTER → 2021-01-15 12:39 | Outpatient (CLI) | payer MEDICARE, SELFPAY ==
--- NOTE | 2021-01-15 12:44 | US_ITS ---
PROCEDURE: US KIDNEY CLINICAL INDICATION: STAGE 3B CHRONIC KIDNEY DISEASE COMPARISON: US US KIDNEY from 07/28/2020 FINDINGS: The right kidney is 11 x 5.3 x 4.9 centimeters. No hydronephrosis, cortical thinning, or renal mass or perinephric fluid collection is evident. Focal anechoic lesion is noted in the inferior pole of the right kidney measuring 1.8 x 2.6 x 2.1 centimeters. Vascularity is within normal limits. The left kidney is 11 x 5.3 x 4.9 centimeters. No hydronephrosis, cortical thinning, or renal mass or perinephric fluid collection is evident. Spleen measures 12.6 centimeters in craniocaudal dimension, within normal limits. IMPRESSION: Cyst in the right kidney measuring 2.6 centimeters. Otherwise unremarkable study. Dictated by: Gaby Guzmán 01/15/2021 15:14 Gaby Guzmán in [facility] 01/15/2021 15:14
== END ==
PROVIDERS: PCP Nurse Practitioner Family; Visit Provider Nurse Practitioner Family
DX: N18.32 Chronic kidney disease, stage 3b (principal)
CPT/HCPCS: 76770

== ENCOUNTER → 2021-02-26 09:30 | Outpatient (CLI) | payer MEDICARE, SELFPAY ==
[2021-02-26 09:36] LABS: Microscopic, Urine URINE MICROSCOPIC (MICROSCOPIC)
[2021-02-26 10:07] LABS: Basophils # 0.1 K/mm3 (0-0.2); Basophils % 0.8 % (0.1-2.0); Eosinophils # 0.5 K/mm3 (0.0-0.4); Eosinophils % 3.8 % (0.1-12.0); Hematocrit 38.7 % (37.0-47.0); Hemoglobin 12.4 g/dL (12.2-16.2); Lymphocytes # 6.8 K/mm3 (0.7-4.5); Lymphocytes % 53.6 % (10-50); Mean Corpuscular Volume 93.6 fl (81-99); Mean Platelet Volume 8.3 fl (7.4-10.4); Monocytes # 0.4 K/mm3 (0.1-1.0); Monocytes % 2.8 % (1.7-9.3); Neutrophils # 4.9 K/mm3 (1.8-7.8); Platelet Count 277 K/mm3 (142-424); Red Blood Count 4.14 M/mm3 (4.20-5.40); Red Cell Distribution Width 15.7 % (11.5-17.5); White Blood Count 12.7 K/mm3 (4.8-10.8)
[2021-02-26 10:09] LABS: MANUAL DIFFERENTIAL MANUAL DIFFERENTIAL (MANUAL DIFF)
[2021-02-26 10:30] LABS: Eosinophils % 1 % (0-3); Lymphocytes % 56 % (10-50); Monocytes % 3 % (2-9); Neutrophils % 37 % (42-76); Platelet Estimate Normal; Total Cells Counted 100
[2021-02-26 11:23] LABS: Albumin Level 3.7 g/dl (3.5-5.0); Blood Urea Nitrogen 31 mg/dl (7-17); Carbon Dioxide 23 mmol/L (22.0-30.0); Chloride 104 mmol/L (98-107); Estimated Glomerular Filt Rate 40 ml/min (>60); GFR (African American) 49 ML/MIN (>60); Glucose 335 mg/dl (74-100); Phosphorous 3.3 mg/dl (2.5-4.5); Sodium 137 mmol/L (136-145)
[2021-02-26 11:30] LABS: Appearance,Urine CLEAR (Clear); Bilirubin,Urine Negative (Negative); Blood, Urine Negative (Negative); Color,Urine YELLOW (Yellow); Glucose,Urine (UA) 3+ (Negative); Ketones,Urine Negative (Negative); Leukocyte Esterase,Urine Negative (Negative); Nitrate,Urine Negative (Negative); PH,Urine 5.5 (5.0-8.5); Protein,Urine Negative (Negative); Urobilinogen,Urine 0.2 EU/dl (0.2)
[2021-02-26 11:34] LABS: Intact Parathyroid Hormone 36.5 pg/mL (7.5-53.5)
[2021-02-26 11:36] LABS: Creatinine,Urine Random 136 mg/dL (Not Estab.)
[2021-02-26 11:43] LABS: Squamous Epithelial Cell,Urine Occasional #/hpf (0-5)
== END ==
PROVIDERS: Internal Medicine Nephrology
DX: N18.30 Chronic kidney disease, stage 3 unspecified (principal); E55.9 Vitamin D deficiency, unspecified
CPT/HCPCS: 36415; 80069; 81001; 82306; 82570; 83970; 84155; 85007; 85025

== ENCOUNTER → 2021-03-01 13:55 | Outpatient (POV) | payer MEDICARE, SELFPAY | PROVIDERS: Visit Provider Internal Medicine Nephrology | DX: Z00.00 Encounter for general adult medical examination without abnormal findings (principal) ==

== ENCOUNTER → 2021-06-29 08:58 | Outpatient (CLI) | payer MEDICARE, SELFPAY ==
[2021-06-29 09:04] LABS: Microscopic, Urine URINE MICROSCOPIC (MICROSCOPIC)
[2021-06-29 09:34] LABS: Hematocrit 38.4 % (37.0-47.0); Hemoglobin 12.3 g/dL (12.2-16.2); Mean Corpuscular HGB Conc 31.9 g/dL (31.8-35.4); Mean Corpuscular Hemoglobin 30.2 pg (27.0-31.2); Mean Corpuscular Volume 94.5 fl (81-99); Platelet Count 318 K/mm3 (142-424); Red Blood Count 4.06 M/mm3 (4.20-5.40); Red Cell Distribution Width 16.3 % (11.5-17.5); White Blood Count 12.2 K/mm3 (4.8-10.8)
[2021-06-29 10:16] LABS: Chloride 99 mmol/L (98-107)
[2021-06-29 10:17] LABS: Albumin Level 3.8 g/dl (3.5-5.0); Potassium 4.3 mmoL/L (3.5-5.1); Sodium 136 mmol/L (136-145)
[2021-06-29 10:19] LABS: Blood Urea Nitrogen 26 mg/dl (7-17); Estimated Glomerular Filt Rate 40 ml/min (>60); GFR (African American) 49 ML/MIN (>60)
[2021-06-29 10:20] LABS: Anion Gap 12.3 mEq/L (5-15); Calcium 9.3 mg/dl (8.4-10.2); Carbon Dioxide 29 mmol/L (22.0-30.0); Glucose 331 mg/dl (74-100); Phosphorous 3.9 mg/dl (2.5-4.5)
[2021-06-29 14:05] LABS: Creatinine,Urine Random 55 mg/dL (Not Estab.)
[2021-06-29 19:35] LABS: Appearance,Urine SL CLOUDY (Clear); Bilirubin,Urine Negative (Negative); Blood, Urine 1+ (Negative); Color,Urine YELLOW (Yellow); Glucose,Urine (UA) 3+ (Negative); Ketones,Urine Negative (Negative); Leukocyte Esterase,Urine Negative (Negative); Nitrate,Urine POSITIVE (Negative); PH,Urine 5.5 (5.0-8.5); Protein,Urine Negative (Negative); Urobilinogen,Urine 0.2 EU/dl (0.2)
[2021-06-29 19:45] LABS: Bacteria,Urine 2+ /lpf; WBC,Urine Occasional #/hpf (0-3)
== END ==
PROVIDERS: PCP Nurse Practitioner Family; Visit Provider Internal Medicine Nephrology
DX: N18.30 Chronic kidney disease, stage 3 unspecified (principal); B96.20 Unspecified Escherichia coli [E. coli] as the cause of diseases classified elsewhere; R82.90 Unspecified abnormal findings in urine
CPT/HCPCS: 36415; 80069; 81001; 82570; 84155; 85014; 85018; 85048; 85049; 87086; 87088; 87186

== ENCOUNTER → 2021-07-05 12:03 | Outpatient (POV) | payer MEDICARE, SELFPAY | PROVIDERS: Visit Provider Internal Medicine Nephrology | DX: Z00.00 Encounter for general adult medical examination without abnormal findings (principal) ==

== ENCOUNTER → 2021-07-27 10:31 | Outpatient (CLI) | payer MEDICARE, SELFPAY ==
[2021-07-28 15:27] LABS: Covid-19 Nasal PCR Sendout Lex POSITIVE
== END ==
PROVIDERS: Visit Provider Nurse Practitioner
DX: U07.1 COVID-19 (principal)
CPT/HCPCS: C9803; U0004; U0005

== ENCOUNTER 2021-07-30 05:30 | Emergency (ER) | payer MEDICARE, SELFPAY ==
[2021-07-30 05:24] VITALS: BP 143/62; PULSE 65; RESP 18; TEMP 36.7; O2SAT 98; BMI 25.8
[2021-07-30 06:00] VITALS: BP 133/59; PULSE 61; RESP 18; O2SAT 97
[2021-07-30 06:03] LABS: Basophils # 0.2 K/mm3 (0-0.2); Basophils % 2.5 % (0.1-2.0); Eosinophils # 0.2 K/mm3 (0.0-0.4); Eosinophils % 2.2 % (0.1-12.0); Hematocrit 39.8 % (37.0-47.0); Hemoglobin 12.8 g/dL (12.2-16.2); Lymphocytes # 3.8 K/mm3 (0.7-4.5); Lymphocytes % 42.5 % (10-50); Mean Corpuscular HGB Conc 32.2 g/dL (31.8-35.4); Mean Corpuscular Hemoglobin 29.7 pg (27.0-31.2); Mean Corpuscular Volume 92.4 fl (81-99); Mean Platelet Volume 8.9 fl (7.4-10.4); Monocytes # 0.3 K/mm3 (0.1-1.0); Monocytes % 3.3 % (1.7-9.3); Neutrophils # 4.5 K/mm3 (1.8-7.8); Neutrophils % 49.4 % (37.0-80.0); Platelet Count 241 K/mm3 (142-424); Red Cell Distribution Width 16.1 % (11.5-17.5)
[2021-07-30 06:14] LABS: Alanine Aminotransferase 19 U/L (12-78); Albumin/Globulin Ratio 1.4 (1.1-1.8); Alkaline Phosphatase 139 U/L (38-126); Anion Gap 14.1 mEq/L (5-15); Aspartate Amino Transferase 27 U/L (14-36); Bilirubin,Total 0.4 mg/dl (0.2-1.3); Blood Urea Nitrogen 35 mg/dl (7-17); Calcium 9.1 mg/dl (8.4-10.2); Carbon Dioxide 25 mmol/L (22.0-30.0); Chloride 100 mmol/L (98-107); Creatinine Clearance Estimated 41 mL/min (50-200); Estimated Glomerular Filt Rate 34 ml/min (>60); GFR (African American) 41 ML/MIN (>60); Globulin 2.8 g/dL (1.3-3.2); Potassium 5.1 mmoL/L (3.5-5.1); Sodium 134 mmol/L (136-145); Total Protein,Serum 6.8 g/dl (6.3-8.2)
[2021-07-30 06:19] LABS: C-Reactive Protein 5.9 mg/L (0-4)
[2021-07-30 06:26] LABS: Erythrocyte Sedimentation Rate 61 mm/hr (0-30)
[2021-07-30 06:27] LABS: Glucose 440 mg/dl (74-100)
[2021-07-30 06:31] LABS: Procalcitonin 0.153 ng/mL (0.0-2.0)
--- NOTE | 2021-07-30 07:07 | HMH.EDNVD ---
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 The time I documented below is in addition to time spent performing reported procedures but includes the following listed in this critical care notation. Medical Decision Making - Medical Records Medical records reviewed: Yes: I reviewed the patient's medical records. - Xu Inquiry Pt receiving controlled substance: No Vital Signs: 07/30/21 05:24 07/30/21 06:00 07/30/21 07:30 Temperature 98.1 F Temperature Source Oral Pulse Rate 61 70 Pulse Rate [Right Radial] 65 Respiratory Rate 18 18 Blood Pressure 133/59 L 116/54 L Blood Pressure [Right Arm] 143/62 H Blood Pressure Mean 77 Blood Pressure Mean [Right Arm] 89 Blood Pressure Source [Right Arm] Automatic Cuff Blood Pressure Position [Right Arm] Sitting 02 Sat by Pulse Oximetry 98 97 97 Oxygen Delivery Method Room Air - Lab Data Lab results reviewed: Yes: I reviewed the patient's lab results. Lab Results 07/30/21 05:52: WBC 9.0, RBC 4.30, Hgb 12.8, Hct 39.8, MCV 92.4, MCH 29.7, MCHC 32.2, RDW 16.1, Plt Count 241, MPV 8.9, Neut % (Auto) 49.4, Lymph % (Auto) 42.5, [place] % (Auto) 3.3, Eos % (Auto) 2.2, Baso % (Auto) 2.5 H, Neut # (Auto) 4.5, Lymph # (Auto) 3.8, [place] # (Auto) 0.3, Eos # (Auto) 0.2, Baso # (Auto) 0.2, ESR 61 H 07/30/21 05:52: Sodium 134 L, Potassium 5.1, Chloride 100, Carbon Dioxide 25, Anion Gap 14.1, BUN 35 H, Creatinine 1.50 H, Estimated Creat Clear 41, Estimated GFR 34 L, Est GFR ( Amer) 41 L, Glucose 440 H*, Calcium 9.1, Total Bilirubin 0.4, AST 27, ALT 19, Alkaline Phosphatase 139 H, C-Reactive Protein 5.9 H, Total Protein 6.8, Albumin 4.0, Globulin 2.8, Albumin/Globulin Ratio 1.4, Procalcitonin 0.153 07/30/21 07:34: POC Glucose 334 H* Result diagrams: 07/30/21 05:52 07/30/21 05:52 Orders (Tests/Meds): ED MEDICATIONS Generic Name Dose Route Start Last Admin Trade Name Freq PRN Reason Stop Dose Admin Lactated Ringer's 1,000 mls @ 999 mls/hr 07/30/21 07:15 Lactated Ringer's 1000 Ml Bag IV 07/30/21 08:15 .Q1H1M WILFREDO Discontinued Medications Generic Name Dose Route Start Last Admin Trade Name Freq PRN Reason Stop Dose Admin Lactated Ringer's 1,000 mls @ 999 mls/hr 07/30/21 05:45 07/30/21 05:56 Lactated Ringer's 1000 Ml Bag IV 07/30/21 06:45 999 mls/hr .Q1H1M WILFREDO Administration Insulin Human Regular 10 unit 07/30/21 06:29 07/30/21 06:35 Insulin Human Regular 100 Units/Ml 10ml Vial IVP 07/30/21 06:30 10 unit ONCE ONE Administration ORDERS Category Date Time Status CXR --portable [XR chest portable] Stat Exams 07/30/21 07:31 Taken Diarrhea 23 Panel, PCR Stat Lab 07/30/21 05:42 Ordered Urinalysis and Microscopic Stat Lab 07/30/21 05:42 Ordered - Radiology Data #1 Image(s): Chest Image Reviewed: Yes I reviewed the patient's radiology image Preliminary Findings: Abnormal - Physician Consults Physician Consulted: aurelio Reason -: Pt condition Medical Decision Narrative: stable exam andlabs will need to take po fluids and monitor glu Nausea/Vomiting/Diarrhea HPI - General Chief complaint: Nausea/Vomiting/Diarrhea Stated complaint: Dizzy and diarrhea T
[2021-07-30 07:30] VITALS: BP 116/54; PULSE 70; O2SAT 97
--- NOTE | 2021-07-30 07:31 | XR_ITS ---
FINAL REPORT TECHNIQUE: Single view chest CLINICAL HISTORY: cough, covid + COMPARISON: 07/17/2020 FINDINGS: A single view of the chest was obtained. The heart and mediastinum are within normal limits. There are mild bibasilar opacities, favor atelectasis. There is no pneumothorax. Osseous structures are unremarkable. IMPRESSION: Mild bibasilar opacities, favor atelectasis. Reviewed, Interpreted and Dictated by Benja Yousif III, MD Transcribed by Abiola Worley Authenticated by Benja Yousif III, MD on 07/30/2021 08:57:44 AM [facility]
[2021-07-30 07:41] LABS: POC Glucose,Bedside 334 (70-110)
--- NOTE | 2021-07-30 08:01 | PC.NURSE ---
Radiology at bedside
[2021-07-30 08:34] VITALS: BP 99/53; PULSE 95; RESP 16; TEMP 36.7; O2SAT 96
== END 2021-07-30 08:50 | disposition home or self-care (01) ==
PROVIDERS: Emergency Provider Emergency Medicine
DX: E11.65 Type 2 diabetes mellitus with hyperglycemia (principal); U07.1 COVID-19; I10 Essential (primary) hypertension; E03.9 Hypothyroidism, unspecified
CPT/HCPCS: 71045; 80053; 82962; 84145; 85025; 85651; 86140; 96365; 96366; 96375; 99283

== ENCOUNTER → 2021-09-05 12:28 | Outpatient (CLI) | payer MEDICARE, SELFPAY ==
[2021-09-05 13:17] LABS: Basophils # 0.3 K/mm3 (0-0.2); Basophils % 2.2 % (0.1-2.0); Eosinophils # 0.2 K/mm3 (0.0-0.4); Eosinophils % 1.4 % (0.1-12.0); Hematocrit 39.8 % (37.0-47.0); Hemoglobin 12.6 g/dL (12.2-16.2); Lymphocytes # 6.3 K/mm3 (0.7-4.5); Lymphocytes % 50.4 % (10-50); Mean Corpuscular HGB Conc 31.6 g/dL (31.8-35.4); Mean Corpuscular Hemoglobin 29.6 pg (27.0-31.2); Mean Corpuscular Volume 93.7 fl (81-99); Mean Platelet Volume 8.7 fl (7.4-10.4); Monocytes # 0.3 K/mm3 (0.1-1.0); Monocytes % 2.6 % (1.7-9.3); Neutrophils # 5.4 K/mm3 (1.8-7.8); Neutrophils % 43.4 % (37.0-80.0); Platelet Count 343 K/mm3 (142-424); Red Blood Count 4.25 M/mm3 (4.20-5.40); Red Cell Distribution Width 16.1 % (11.5-17.5); White Blood Count 12.5 K/mm3 (4.8-10.8)
[2021-09-05 13:25] LABS: MANUAL DIFFERENTIAL MANUAL DIFFERENTIAL (MANUAL DIFF)
[2021-09-05 15:16] LABS: Anisocytosis 1+; Eosinophils % 2 % (0-3); Lymphocytes % 41 % (10-50); Monocytes % 3 % (2-9); Neutrophils % 53 % (42-76); Platelet Estimate Normal; Total Cells Counted 100
[2021-09-05 15:17] LABS: Hypochromasia 2+
== END ==
PROVIDERS: Visit Provider Internal Medicine Medical Oncology
DX: D64.9 Anemia, unspecified (principal)
CPT/HCPCS: 36415; 85007; 85025

== ENCOUNTER → 2021-09-25 09:56 | Outpatient (CLI) | payer MEDICARE, SELFPAY ==
[2021-09-25 11:48] LABS: Thyroid Stimulating Hormone 0.76 uIU/mL (0.465-4.68)
[2021-09-25 12:23] LABS: Vitamin B12 267 pg/mL (239-931)
[2021-09-25 12:39] LABS: Folate 9.15 ng/mL
== END ==
PROVIDERS: Visit Provider Nurse Practitioner Family
DX: R26.89 Other abnormalities of gait and mobility; R29.818 Other symptoms and signs involving the nervous system; R20.0 Anesthesia of skin; E11.65 Type 2 diabetes mellitus with hyperglycemia; Z79.4 Long term (current) use of insulin
CPT/HCPCS: 36415; 82607; 82746; 84443

== ENCOUNTER → 2021-10-02 16:25 | Outpatient (CLI) | payer MEDICARE, SELFPAY ==
--- NOTE | 2021-10-02 16:29 | MR_ITS ---
PROCEDURE INFORMATION: Exam: MR Head Without Contrast Exam date and time: 10/02/2021 4:56 PM Age: 70 years old Clinical indication: Headache. TECHNIQUE: Imaging protocol: MR of the head without contrast. COMPARISON: [facility] CT HEAD-W/WO CONTRAST 05/16/2017 9:14 AM FINDINGS: Brain: There are occasional nonspecific foci of high signal abnormality in the uriarte radiata and centrum semiovale. These are best seen on the flair images. These foci may represent areas of gliosis, demyelination, and/or chronic ischemic change. There is moderate cerebral and cerebellar atrophy. Cerebral ventricles: Normal. No ventriculomegaly. Bones/joints: Unremarkable. Paranasal sinuses: Normal as visualized. No acute sinusitis. Mastoid air cells: Normal as visualized. No mastoid effusion. Orbital cavities: Unremarkable. Soft tissues: Unremarkable. IMPRESSION: 1. There are occasional nonspecific foci of high signal abnormality in the uriarte radiata and centrum semiovale. These are best seen on the flair images. These foci may represent areas of gliosis, demyelination, and/or chronic ischemic change. No acute infarct is identified. 2. There is moderate cerebral and cerebellar atrophy.
== END ==
PROVIDERS: PCP Nurse Practitioner Family; Visit Provider Nurse Practitioner Family
DX: R26.89 Other abnormalities of gait and mobility (principal); R29.818 Other symptoms and signs involving the nervous system
CPT/HCPCS: 70551

== ENCOUNTER → 2021-10-15 12:12 | Outpatient (CLI) | payer MEDICARE, SELFPAY ==
[2021-10-15 12:22] LABS: MANUAL DIFFERENTIAL MANUAL DIFFERENTIAL (MANUAL DIFF)
[2021-10-15 13:20] LABS: Basophils # 0.2 K/mm3 (0-0.2); Basophils % 1.4 % (0.1-2.0); Eosinophils # 0.3 K/mm3 (0.0-0.4); Eosinophils % 2.2 % (0.1-12.0); Hematocrit 38.2 % (37.0-47.0); Hemoglobin 12.3 g/dL (12.2-16.2); Lymphocytes # 5.7 K/mm3 (0.7-4.5); Lymphocytes % 49.9 % (10-50); Mean Corpuscular HGB Conc 32.1 g/dL (31.8-35.4); Mean Corpuscular Hemoglobin 29.9 pg (27.0-31.2); Mean Corpuscular Volume 92.9 fl (81-99); Monocytes # 0.3 K/mm3 (0.1-1.0); Monocytes % 2.5 % (1.7-9.3); Platelet Count 392 K/mm3 (142-424); Red Blood Count 4.11 M/mm3 (4.20-5.40); Red Cell Distribution Width 16.2 % (11.5-17.5); White Blood Count 11.5 K/mm3 (4.8-10.8)
[2021-10-15 13:55] LABS: Lymphocytes % 39 % (10-50); Monocytes % 1 % (2-9); Neutrophils % 60 % (42-76); Total Cells Counted 100
[2021-10-15 13:56] LABS: Anisocytosis 1+; Hypochromasia 1+; Macrocytosis 1+; Platelet Estimate Normal
== END ==
PROVIDERS: PCP Nurse Practitioner Family; Visit Provider Nurse Practitioner Family
DX: S91.302A Unspecified open wound, left foot, initial encounter (principal)
CPT/HCPCS: 36415; 85007; 85014; 85018; 85048; 85049

== ENCOUNTER → 2021-10-24 13:24 | Outpatient (CLI) | payer MEDICARE, SELFPAY ==
--- NOTE | 2021-10-24 13:24 | MR_ITS ---
FINAL REPORT CLINICAL HISTORY: abnormal ncv-emg , imbalance , dec sensation lower back pain x 1 month no injury or trauma FINDINGS: Multiplanar MR imaging of the lumbar spine was performed without contrast. On the sagittal T2-weighted images, there is abnormal decreased signal throughout the lumbar discs. The vertebrae are of normal height. There is moderate loss of height at the L5-S1 disc space with grade 1 spondylolisthesis. L1-2: There is no significant canal stenosis or neural foraminal narrowing. L2-3: There is no significant canal stenosis or neural foraminal narrowing. L3-4: There is no significant canal stenosis or neural foraminal narrowing. L4-5: Mild diffuse disc bulge is present with mild bilateral neural foraminal narrowing. L5-S1: Moderate diffuse disc bulge is present accentuated by spondylolisthesis. There is a broad-based midline disc protrusion with moderate spinal and bilateral neural foraminal compromise. IMPRESSION: Broad-based midline disc protrusion at L5-S1 with moderate spinal and bilateral neural foraminal compromise. Reviewed, Interpreted and Dictated by Richy Reddy MD Transcribed by Shira Panchal Authenticated by Richy Reddy MD on 10/24/2021 03:50:34 PM [facility]
== END ==
PROVIDERS: PCP Nurse Practitioner Family; Visit Provider Nurse Practitioner Family
DX: G89.29 Other chronic pain (principal); M54.50 Low back pain, unspecified; R20.0 Anesthesia of skin; R20.8 Other disturbances of skin sensation; R26.89 Other abnormalities of gait and mobility; R94.130 Abnormal response to nerve stimulation, unspecified
CPT/HCPCS: 72148; 76376

== ENCOUNTER → 2022-03-06 09:29 | Outpatient (CLI) | payer MEDICARE, SELFPAY ==
[2022-03-06 10:17] LABS: Hematocrit 39.6 % (37.0-47.0); Hemoglobin 12.2 g/dL (12.2-16.2); Mean Corpuscular HGB Conc 30.8 g/dL (31.8-35.4); Mean Corpuscular Hemoglobin 29.2 pg (27.0-31.2); Mean Corpuscular Volume 94.9 fl (81-99); Platelet Count 317 K/mm3 (142-424); Red Blood Count 4.17 M/mm3 (4.20-5.40); Red Cell Distribution Width 16.3 % (11.5-17.5); White Blood Count 13.6 K/mm3 (4.8-10.8)
[2022-03-06 10:43] LABS: Albumin Level 3.8 g/dl (3.5-5.0); Anion Gap 13.1 mEq/L (5-15); Blood Urea Nitrogen 36 mg/dl (7-17); Calcium 8.8 mg/dl (8.4-10.2); Carbon Dioxide 25 mmol/L (22.0-30.0); Chloride 105 mmol/L (98-107); Estimated Glomerular Filt Rate 34 ml/min (>60); GFR (African American) 41 ML/MIN (>60); Glucose 216 mg/dl (74-100); Phosphorous 4.3 mg/dl (2.5-4.5); Potassium 5.1 mmoL/L (3.5-5.1); Sodium 138 mmol/L (136-145)
[2022-03-06 10:53] LABS: Intact Parathyroid Hormone 65.7 pg/mL (7.5-53.5)
[2022-03-06 12:28] LABS: Microscopic, Urine URINE MICROSCOPIC (MICROSCOPIC)
[2022-03-06 13:24] LABS: Bilirubin,Urine Negative (Negative); Blood, Urine 1+ (Negative); Color,Urine YELLOW (Yellow); Glucose,Urine (UA) 1+ (Negative); Ketones,Urine Negative (Negative); Leukocyte Esterase,Urine 2+ (Negative); Nitrate,Urine POSITIVE (Negative); Protein,Urine Negative (Negative); Urobilinogen,Urine 0.2 EU/dl (0.2)
[2022-03-06 13:25] LABS: Appearance,Urine Cloudy (Clear)
[2022-03-06 13:40] LABS: Bacteria,Urine 4+ /lpf; Creatinine,Urine Random 99 mg/dL (Not Estab.); RBC,Urine Occasional #/hpf (0-3); WBC,Urine 50-100 #/hpf (0-3)
== END ==
PROVIDERS: PCP Nurse Practitioner Family; Visit Provider Internal Medicine Nephrology
DX: N18.31 Chronic kidney disease, stage 3a (principal); N39.0 Urinary tract infection, site not specified; B96.29 Other Escherichia coli [E. coli] as the cause of diseases classified elsewhere
CPT/HCPCS: 36415; 80069; 81001; 82570; 83970; 84155; 85014; 85018; 85048; 85049; 87086; 87088; 87186

== ENCOUNTER → 2022-03-11 14:18 | Outpatient (POV) | payer MEDICARE, SELFPAY | PROVIDERS: Visit Provider Internal Medicine Nephrology | DX: Z00.00 Encounter for general adult medical examination without abnormal findings (principal) ==

== ENCOUNTER → 2022-03-20 11:36 | Outpatient (CLI) | payer MEDICARE, SELFPAY ==
[2022-03-20 12:50] LABS: Basophils # 0.1 K/mm3 (0-0.2); Basophils % 0.7 % (0.1-2.0); Eosinophils # 0.5 K/mm3 (0.0-0.4); Eosinophils % 3.5 % (0.1-12.0); Hematocrit 41.2 % (37.0-47.0); Hemoglobin 13.2 g/dL (12.2-16.2); Lymphocytes # 7.4 K/mm3 (0.7-4.5); Lymphocytes % 51.9 % (10-50); Mean Corpuscular Hemoglobin 30.1 pg (27.0-31.2); Mean Platelet Volume 8.2 fl (7.4-10.4); Monocytes # 0.5 K/mm3 (0.1-1.0); Monocytes % 3.2 % (1.7-9.3); Neutrophils # 5.8 K/mm3 (1.8-7.8); Neutrophils % 40.7 % (37.0-80.0); Platelet Count 339 K/mm3 (142-424); Red Blood Count 4.38 M/mm3 (4.20-5.40); Red Cell Distribution Width 16.6 % (11.5-17.5); White Blood Count 14.2 K/mm3 (4.8-10.8)
[2022-03-20 12:56] LABS: MANUAL DIFFERENTIAL MANUAL DIFFERENTIAL (MANUAL DIFF)
[2022-03-20 16:29] LABS: Eosinophils % 2 % (0-3); Lymphocytes % 54 % (10-50); Monocytes % 4 % (2-9); Neutrophils % 40 % (42-76); Total Cells Counted 100
[2022-03-20 16:30] LABS: Platelet Estimate Normal; RBC Morphology Normal
== END ==
PROVIDERS: PCP Nurse Practitioner Family; Visit Provider Internal Medicine Medical Oncology
DX: C91.10 Chronic lymphocytic leukemia of B-cell type not having achieved remission (principal)
CPT/HCPCS: 36415; 85007; 85025

== ENCOUNTER → 2022-04-01 09:20 | Outpatient (CLI) | payer MEDICARE, SELFPAY ==
--- NOTE | 2022-04-01 09:25 | XR_ITS ---
FINAL REPORT CLINICAL HISTORY: PRODUCTIVE COUGH X 1 MONTH FINDINGS: Two views of the chest were obtained. The heart size and pulmonary vascularity are within normal limits. The mediastinum is normal. Mild scarring or atelectasis in the left lung base. There is no pneumothorax. The bony thorax is intact. IMPRESSION: Scarring or atelectasis in the left lung base. Reviewed, Interpreted and Dictated by Benja Yousif III, MD Transcribed by Lesa Harper Authenticated and [facility]
== END ==
PROVIDERS: PCP Nurse Practitioner Family; Visit Provider Nurse Practitioner Family
DX: R05.9 Cough, unspecified (principal)
CPT/HCPCS: 71046

== ENCOUNTER → 2022-07-08 09:19 | Outpatient (CLI) | payer MEDICARE, SELFPAY ==
--- NOTE | 2022-07-08 09:25 | XR_ITS ---
FINAL REPORT CLINICAL HISTORY: LOW BACK PAIN FINDINGS: LUMBAR SPINE 5 views of the lumbar spine were obtained. There is no evidence of fracture or dislocation. The vertebral alignment is normal. There are moderate degenerative changes. There is disc space narrowing and vacuum disc phenomenon at L5-S1. There are vascular calcifications. IMPRESSION: Moderate degenerative changes with no acute bony abnormality. Reviewed, Interpreted and Dictated by Benja Yousif III, MD Transcribed by Yarelis Cope Authenticated and . [facility]
== END ==
PROVIDERS: PCP Nurse Practitioner Family; Visit Provider Nurse Practitioner Family
DX: M54.50 Low back pain, unspecified (principal)
CPT/HCPCS: 72110

== ENCOUNTER → 2022-08-12 06:39 | Outpatient (CLI) | payer MEDICARE, SELFPAY ==
--- NOTE | 2022-08-12 07:05 | CT_ITS ---
FINAL REPORT TECHNIQUE: Thin section axial images were obtained from skull base to vertex without contrast. Coronal reconstruction images were obtained from the axial data. Exam was performed using dose reduction technique. CLINICAL HISTORY: DIZZINESS COMPARISON: April 2017 FINDINGS: There is no mass effect or midline shift. There is no hydrocephalus. There is no intracranial hemorrhage. The posterior fossa is without acute abnormality. The basilar cisterns are preserved. The soft tissues are without acute abnormality. No acute osseous abnormality is identified. IMPRESSION: No acute intracranial abnormality. Reviewed, Interpreted and Dictated by Pauline Mar MD Transcribed by Abiola Worley Authenticated and . [facility]
== END ==
PROVIDERS: PCP Nurse Practitioner Family; Visit Provider Nurse Practitioner Family
DX: R42 Dizziness and giddiness (principal)
CPT/HCPCS: 70450

== ENCOUNTER → 2022-09-13 08:58 | Outpatient (CLI) | payer MEDICARE, SELFPAY ==
--- NOTE | 2022-09-13 09:03 | XR_ITS ---
FINAL REPORT CLINICAL HISTORY: LT RIB PAIN, fall yesterday COMPARISON: 06/01/2020 and chest xray 04/01/2022 FINDINGS: A single view of the chest with 3 views of the ribs were obtained. There is mild bibasilar atelectasis. No pneumothorax is identified. There are presumed chronic fractures of the left 5th, 6th, and 7th distal ribs. No definite rib fracture identified. IMPRESSION: No definite rib fracture identified. Presumed chronic fractures. Reviewed, Interpreted and Dictated by Benja Yousif III, MD Transcribed by Alba Huggins Authenticated and [facility]
== END ==
PROVIDERS: PCP Nurse Practitioner Family; Visit Provider Nurse Practitioner Family
DX: R07.81 Pleurodynia (principal); W19.XXXA Unspecified fall, initial encounter
CPT/HCPCS: 71101

== ENCOUNTER → 2022-09-30 07:38 | Outpatient (CLI) | payer MEDICARE, SELFPAY ==
[2022-09-30 07:56] LABS: Microscopic, Urine URINE MICROSCOPIC (MICROSCOPIC)
[2022-09-30 08:29] LABS: Appearance,Urine CLOUDY (Clear); Bilirubin,Urine Negative (Negative); Blood, Urine TRACE-L (Negative); Color,Urine YELLOW (Yellow); Glucose,Urine (UA) 3+ (Negative); Ketones,Urine Negative (Negative); Leukocyte Esterase,Urine 1+ (Negative); Nitrate,Urine POSITIVE (Negative); PH,Urine 5.5 (5.0-8.5); Protein,Urine Negative (Negative); Specific Gravity, Urine <= 1.005 (1.005-1.030); Urobilinogen,Urine 0.2 EU/dl (0.2)
[2022-09-30 08:34] LABS: Hemoglobin 12.5 g/dL (12.2-16.2); Mean Corpuscular HGB Conc 30.5 g/dL (31.8-35.4); Mean Corpuscular Hemoglobin 28.9 pg (27.0-31.2); Mean Corpuscular Volume 94.7 fl (81-99); Platelet Count 386 K/mm3 (142-424); Red Blood Count 4.33 M/mm3 (4.20-5.40); Red Cell Distribution Width 16.9 % (11.5-17.5)
[2022-09-30 08:35] LABS: MANUAL DIFFERENTIAL MANUAL DIFFERENTIAL (MANUAL DIFF)
[2022-09-30 08:38] LABS: Creatinine,Urine Random 76 mg/dL (Not Estab.)
[2022-09-30 09:08] LABS: Bacteria,Urine 1+ /lpf; RBC,Urine Occasional #/hpf (0-3); Yeast,Urine 1+ /lpf
[2022-09-30 09:17] LABS: Albumin Level 4.4 g/dl (3.5-5.0); Anion Gap 17.3 mEq/L (5-15); Blood Urea Nitrogen 54 mg/dl (7-17); Calcium 9.3 mg/dl (8.4-10.2); Carbon Dioxide 25 mmol/L (22.0-30.0); Chloride 98 mmol/L (98-107); Estimated Glomerular Filt Rate 28 ml/min (>60); GFR (African American) 33 ML/MIN (>60); Glucose 349 mg/dl (74-100); Phosphorous 5.1 mg/dl (2.5-4.5); Potassium 5.3 mmoL/L (3.5-5.1); Sodium 135 mmol/L (136-145)
[2022-09-30 09:39] LABS: Lymphocytes % 51 % (10-50); Monocytes % 4 % (2-9); Neutrophils % 45 % (42-76); Platelet Estimate Normal; RBC Morphology Normal; Total Cells Counted 100
== END ==
PROVIDERS: PCP Nurse Practitioner Family; Visit Provider Internal Medicine Nephrology
DX: N18.31 Chronic kidney disease, stage 3a (principal); A04.8 Other specified bacterial intestinal infections; R82.90 Unspecified abnormal findings in urine
CPT/HCPCS: 36415; 80069; 81001; 82570; 84155; 85007; 85014; 85018; 85048; 85049; 87086; 87088; 87186

== ENCOUNTER → 2022-10-03 13:02 | Outpatient (POV) | payer MEDICARE, SELFPAY | PROVIDERS: Visit Provider Internal Medicine Nephrology | DX: Z00.00 Encounter for general adult medical examination without abnormal findings (principal) ==

== ENCOUNTER 2022-11-20 11:00 | Outpatient (RCR) | payer MEDICARE, SELFPAY | END 2022-11-20 11:05 | disposition home or self-care (01) | LOC: PT 11:00 | PROVIDERS: PCP Nurse Practitioner Family; Visit Provider Nurse Practitioner Family | DX: L97.429 Non-pressure chronic ulcer of left heel and midfoot with unspecified severity (principal) | CPT/HCPCS: 97162 ==

== ENCOUNTER 2022-12-12 20:05 | Observation (INO) | payer MEDICARE, SELFPAY ==
[2022-12-12] VITALS (18 sets, daily range): BP systolic 119–161; BP diastolic 32–78; PULSE 53–67; RESP 17; TEMP 36.6; O2SAT 96–98; BMI 27.3
--- NOTE | 2022-12-12 20:43 | XR_ITS ---
PROCEDURE INFORMATION: Exam: XR Pelvis Exam date and time: 12/12/2022 9:48 PM Age: 71 years old Clinical indication: Injury or trauma; Fall; Blunt trauma (contusions or hematomas); Bilateral; Pelvic region TECHNIQUE: Imaging protocol: Radiologic exam of the pelvis. Views: 1 or 2 view. COMPARISON: CT ABDOMEN PELVIS WO CON 17/07/2020 13:12 FINDINGS: Bones/joints: No acute fracture or dislocation. Soft tissues: Unremarkable. IMPRESSION: No acute fracture or dislocation.
--- NOTE | 2022-12-12 20:43 | CT_ITS ---
PROCEDURE INFORMATION: Exam: CT Head Without Contrast Exam date and time: 12/12/2022 9:37 PM Age: 71 years old Clinical indication: Injury or trauma; Fall; Blunt trauma (contusions or hematomas); Consciousness not specified; Additional info: Dizziness. Increased falls TECHNIQUE: Imaging protocol: Computed tomography of the head without contrast. Radiation optimization: All CT scans at this facility use at least one of these dose optimization techniques: automated exposure control; mA and/or kV adjustment per patient size (includes targeted exams where dose is matched to clinical indication); or iterative reconstruction. REPORTING DATA: Count of CT and Cardiac NM exams in prior 12 months: This patient has received [address] and 0 known cardiac nuclear medicine studies in the 12 months prior to the current study. COMPARISON: CT HEAD/BRAIN WO CON 08/12/2022 7:07 AM FINDINGS: Brain: Moderate generalized cerebral atrophy. No intracranial mass, hemorrhage or evidence of acute ischemia. Diffuse white matter hypoattenuation suggests chronic microvascular ischemic change or demyelination. This appears slightly more pronounced than on prior studies. Cerebral ventricles: No ventriculomegaly. Paranasal sinuses: Visualized sinuses are unremarkable. No fluid levels. Mastoid air cells: Visualized mastoid air cells are well aerated. Bones/joints: Unremarkable. No acute fracture. Soft tissues: Unremarkable. IMPRESSION: No acute intracranial abnormality. Chronic appearing white matter changes appear slightly more pronounced than on prior studies.
--- NOTE | 2022-12-12 20:43 | CT_ITS ---
PROCEDURE INFORMATION: Exam: CT Chest Without Contrast; Diagnostic Exam date and time: 12/12/2022 9:43 PM Age: 71 years old Clinical indication: Injury or trauma; Fall; Blunt trauma (contusions or hematomas); Additional info: Right chest wall injury TECHNIQUE: Imaging protocol: Diagnostic computed tomography of the chest without contrast. Radiation optimization: All CT scans at this facility use at least one of these dose optimization techniques: automated exposure control; mA and/or kV adjustment per patient size (includes targeted exams where dose is matched to clinical indication); or iterative reconstruction. REPORTING DATA: Count of CT and Cardiac NM exams in prior 12 months: This patient has received [address] and 0 known cardiac nuclear medicine studies in the 12 months prior to the current study. COMPARISON: CR XR RIBS LT MIN 3V W CXR1V 13/09/2022 09:19 FINDINGS: Lungs: Mild scarring and atelectasis in the lower lungs. Pleural spaces: Unremarkable. No pneumothorax. No pleural effusion. Heart: Unremarkable. No cardiomegaly. No pericardial effusion. Coronary arteries: Coronary artery calcifications. Lymph nodes: Unremarkable. No enlarged lymph nodes. Vasculature: Enlarged pulmonary arteries likely represent chronic pulmonary arterial hypertension. The aorta demonstrates moderate atherosclerotic disease. Bones/joints: Free bodies in the left shoulder. Anterior right 8th through 10th rib fractures are age-indeterminate, possibly acute. T4 bone island. Soft tissues: Unremarkable. Other findings: Stigmata of old granulomatous disease. Please see separate report for abdomen/pelvis. IMPRESSION: 1. No acute intrathoracic organ injury. 2. Anterior right 8th through 10th rib fractures are age-indeterminate, possibly acute. Please correlate with point tenderness.
--- NOTE | 2022-12-12 20:49 | ECG_ITS ---
APPROVED REPORT Exam: Resting ECG HR:62 bpm ECG Measurements Heart Rate 62 AXES GA 179 P 77 QRSd 113 QRS -13 QT 406 T 62 QTc 412 Conclusion SINUS RHYTHM POSSIBLE ANTERIOR MYOCARDIAL INFARCTION , OF INDETERMINATE AGE [30 ms Q WAVE IN V3/V4, OR R < 0.2 mV IN V4] ABNORMAL ECG UNCONFIRMED REPORT Electronically signed by : Rashawn Cook MD 12/13/2022 16:19:12
--- NOTE | 2022-12-12 20:56 | CT_ITS ---
PROCEDURE INFORMATION: Exam: CT Cervical Spine Without Contrast Exam date and time: 12/12/2022 9:39 PM Age: 71 years old Clinical indication: Injury or trauma; Fall; Blunt trauma TECHNIQUE: Imaging protocol: Computed tomography of the cervical spine without contrast. Radiation optimization: All CT scans at this facility use at least one of these dose optimization techniques: automated exposure control; mA and/or kV adjustment per patient size (includes targeted exams where dose is matched to clinical indication); or iterative reconstruction. REPORTING DATA: Count of CT and Cardiac NM exams in prior 12 months: This patient has received [address] and 0 known cardiac nuclear medicine studies in the 12 months prior to the current study. COMPARISON: CR CS5 CERVICAL SPINE 4 OR 5 VIEWS 03/26/2017 11:02 AM FINDINGS: Bones/joints: Osseous alignment is normal. No acute fracture. Significant degenerative changes noted in the atlantoaxial joint. Moderate multilevel degenerative disc changes are noted, most pronounced at the C5-C6 disc level where there is moderate bilateral neural foramen narrowing. There is significant multilevel facet arthropathy with associated mild grade 1 anterolisthesis of C4 and C5. Lungs: Lung apices are normal. Soft tissues: Unremarkable. IMPRESSION: Degenerative changes of the cervical spine as described. No acute abnormality
--- NOTE | 2022-12-12 20:56 | XR_ITS ---
PROCEDURE INFORMATION: Exam: XR Chest Exam date and time: 12/12/2022 9:48 PM Age: 71 years old Clinical indication: Injury or trauma; Fall; Blunt trauma (contusions or hematomas); Additional info: Fall, right sided rib pain TECHNIQUE: Imaging protocol: Radiologic exam of the chest. Views: 1 view. COMPARISON: CT CHEST WO CON 12/12/2022 21:43 FINDINGS: Lungs: Unremarkable. No consolidation. Pleural spaces: Unremarkable. No pleural effusion. No pneumothorax. Heart/Mediastinum: Borderline cardiomegaly. Bones/joints: Left shoulder free bodies are noted. IMPRESSION: No acute intrathoracic organ injury.
--- NOTE | 2022-12-12 21:00 | CT_ITS ---
PROCEDURE INFORMATION: Exam: CT Abdomen And Pelvis Without Contrast Exam date and time: 12/12/2022 9:47 PM Age: 71 years old Clinical indication: Injury or trauma; Fall; Blunt; Generalized; Patient HX: Patient fell. ; Additional info: Ruq abdominal pain TECHNIQUE: Imaging protocol: Computed tomography of the abdomen and pelvis without contrast. Radiation optimization: All CT scans at this facility use at least one of these dose optimization techniques: automated exposure control; mA and/or kV adjustment per patient size (includes targeted exams where dose is matched to clinical indication); or iterative reconstruction. REPORTING DATA: Count of CT and Cardiac NM exams in prior 12 months: This patient has received [address] and 0 known cardiac nuclear medicine studies in the 12 months prior to the current study. COMPARISON: CT ABDOMEN PELVIS WO CON 17/07/2020 13:12 FINDINGS: Liver: There is a 2 cm low-attenuation right hepatic lesion that is more conspicuous than on prior study. This is favored to represent a benign lesion such as a hemangioma. Gallbladder and bile ducts: Gallbladder is absent. Pancreas: Normal. No ductal dilation. Spleen: Normal. No splenomegaly. Adrenal glands: Normal. No mass. Kidneys and ureters: Low attenuation renal lesions measuring up to 2.3 cm in diameter are incompletely characterized, but are likely cysts. No followup imaging is warranted. Nonobstructing bilateral nephrolithiasis. Stomach and bowel: Unremarkable. No obstruction. No mucosal thickening. Appendix: Unremarkable appendix. Intraperitoneal space: Unremarkable. No free air. No significant fluid collection. Vasculature: The arteries demonstrate moderate atherosclerotic disease. Lymph nodes: Unremarkable. No enlarged lymph nodes. Urinary bladder: Unremarkable as visualized. Reproductive: Status post hysterectomy. Bones/joints: Unremarkable. No acute fracture. Soft tissues: Intramuscular left gluteal lipoma measuring 4.5 cm. Other findings: Please see separate report for CT chest. IMPRESSION: 1. No acute intra-abdominal or intrapelvic organ injury. 2. Nonobstructing bilateral nephrolithiasis. COMMENTS: Consistent with the [employer]'s Incidental Findings Committee white paper (J Am Lior Radiol 2018): Any incidental renal lesion less than 1 cm or classified as too small to characterize, or any incidental cystic renal lesion characterized as simple-appearing, is likely benign. No follow-up imaging is recommended for these lesions per consensus recommendations based on imaging criteria.
[2022-12-12 21:07] LABS: Basophils # 0.1 K/mm3 (0-0.2); Basophils % 0.7 % (0.1-2.0); Eosinophils # 0.3 K/mm3 (0.0-0.4); Eosinophils % 2.1 % (0.1-12.0); Hematocrit 38.7 % (37.0-47.0); Hemoglobin 12.2 g/dL (12.2-16.2); Lymphocytes # 8.5 K/mm3 (0.7-4.5); Lymphocytes % 52.6 % (10-50); Mean Corpuscular HGB Conc 31.4 g/dL (31.8-35.4); Mean Corpuscular Hemoglobin 28.5 pg (27.0-31.2); Mean Corpuscular Volume 90.8 fl (81-99); Mean Platelet Volume 8.3 fl (7.4-10.4); Monocytes # 0.4 K/mm3 (0.1-1.0); Monocytes % 2.6 % (1.7-9.3); Neutrophils # 6.8 K/mm3 (1.8-7.8); Neutrophils % 41.9 % (37.0-80.0); Platelet Count 280 K/mm3 (142-424); Red Blood Count 4.26 M/mm3 (4.20-5.40); Red Cell Distribution Width 14.8 % (11.5-17.5); White Blood Count 16.2 K/mm3 (4.8-10.8)
[2022-12-12 21:09] LABS: Alanine Aminotransferase 21 U/L (12-78); Albumin Level 4.1 g/dl (3.5-5.0); Albumin/Globulin Ratio 1.4 (1.1-1.8); Alkaline Phosphatase 116 U/L (38-126); Anion Gap 20.3 mEq/L (5-15); Aspartate Amino Transferase 23 U/L (14-36); Bilirubin,Total 0.2 mg/dl (0.2-1.3); Calcium 8.8 mg/dl (8.4-10.2); Carbon Dioxide 24 mmol/L (22.0-30.0); Chloride 93 mmol/L (98-107); Creatinine Clearance Estimated 25 mL/min (50-200); Estimated Glomerular Filt Rate 19 ml/min (>60); GFR (African American) 23 ML/MIN (>60); Globulin 2.9 g/dL (1.3-3.2); Potassium 5.3 mmoL/L (3.5-5.1); Sodium 132 mmol/L (136-145)
[2022-12-12 21:10] LABS: MANUAL DIFFERENTIAL MANUAL DIFFERENTIAL (MANUAL DIFF)
[2022-12-12 21:14] LABS: Blood Urea Nitrogen 89 mg/dl (7-17); Glucose 472 mg/dl (74-100)
[2022-12-12 21:22] LABS: Creatine Kinase 185 U/L (30-135); Lipase 388 U/L (23-300)
[2022-12-12 21:28] LABS: Troponin I < 0.01 ng/ml (0.00-0.034)
--- NOTE | 2022-12-12 21:28 | PC.NURSE ---
notified of critical labs. Orders for ct abd and pelvis to be completed without contrast entered. Radiology (Denis) notified.
[2022-12-12 21:29] LABS: T4 (Thyroxine) 8.3 ug/dl (5.53-11.0)
--- NOTE | 2022-12-12 21:34 | HMH.EDFALL ---
Discharge Plan Disposition Patient Disposition: Admitted As Inpatient Clinical Impressions Clinical Impression: RANDY (acute kidney injury), Hyperglycemia due to type 2 diabetes mellitus, Fall, Closed rib fracture Discharge ED Provider: Froilan (ED)Gavin Fall HPI General Chief Complaint: Fall Stated Complaint: falling x2, rib pain Time Seen by Provider: 12/12/22 21:10 Mode of Arrival: Wheelchair Source of Information: Patient and Medical Record Limitations: No Limitations Description of Symptoms (Recalled from ER Triage Doc. by RN): 71 F presents from home with c/o increased falls. Her most recent was last night and she hurt her right posterior chest wall. Patient reports she has had issues with being dizzy, and believes that is the cause of her falls. History of Present Illness HPI Narrative: falls at home and dizzyness and rt rib pain MD complaint: fall Onset (ago): day(s) Fall witnessed: no Place fall occurred: home Loss of consciousness: none Prolonged down time: no Symptoms prior to fall: lightheadedness and dizziness Context: history of frequent falls Location of injury: chest Severity: moderate Related Data Home Medications Medication Instructions Recorded Confirmed clonazepam 1 mg tablet 1 mg PO BIDP PRN Anxiety 03/17/20 12/13/22 spironolactone 50 mg tablet 50 mg PO DAILY fluid retention 03/17/20 12/13/22 gabapentin 400 mg capsule 400 mg PO TID Neuropathy 09/14/20 12/13/22 insulin lispro 100 unit/mL 30 unit SQ DAILY Diabetes 09/14/20 12/12/22 subcutaneous pen (Humalog KwikPen (U-100) Insulin) lisinopril 20 1 tab PO DAILY High blood pressure 09/14/20 12/13/22 mg-hydrochlorothiazide 25 mg tablet insulin glargine 100 unit/mL (3 30 unit SQ DAILY Diabetes 09/25/21 12/13/22 mL) subcutaneous pen (Lantus Solostar U-100 Insulin) levothyroxine 88 mcg tablet 88 mcg PO DAILY hypothyroidism 10/15/21 12/13/22 pen needle, diabetic 31 gauge x #50 ea 11/13/21 12/12/2209/12 (BD Ultra-Fine Mini Pen Needle) metformin 500 mg tablet,extended 500 mg PO DAILY Diabetes 03/21/22 12/13/22 release 24 hr furosemide 20 mg tablet 20 mg PO DAILY PRN fluid retention 09/12/22 12/13/22 empagliflozin 10 mg tablet 10 mg PO DAILY diabetes/heart 12/13/22 12/13/22 (Jardiance) failure febuxostat 40 mg tablet (Uloric) 40 mg PO DAILY gout 12/13/22 12/13/22 Allergies Allergy/AdvReac Type Severity Reaction Status Date / Time moxifloxacin Allergy Severe S-ANAPHYLAX Verified 09/12/22 12:21 IS Sulfa (Sulfonamide Allergy Mild NA-NAUSEA/V Verified 09/12/22 12:21 Antibiotics) OMITING PFSH PFSH Disclaimer: The information contained in this section may have been updated after the patient was seen, as this information can be updated by other users. Medical History (Updated 12/13/22 @ 07:50 by Gavin Mcgovern (HUY)MD) CLL (chronic lymphocytic leukemia) Diabetes mellitus History of hypertension Surgical History (Updated 12/13/22 @ 00:22 by Luis Calvo DNP) H/O lithotripsy History of cholecystectomy Social History Smoking Status: Never smoker alcohol intake: never substance use type: denies use current occupational status: unemployed Travel in the last 8 weeks: None household members: none housing: house caffeine: Yes ROS Obtained: Yes All systems reviewed & no additional complaints except as documented Physical Exam General General appearance: alert Head Head exam: normocephalic Eye Eye exam: Present PERRL and EOMI; Absent nystagmus ENT ENT exam: Present normal exam Neck Neck exam: Present trachea midline Respiratory Respiratory exam: Present normal lung sounds bilaterally; Absent respiratory distress Cardiovascular Cardiovascular exam: Present regular rate and systolic murmur Abdominal Exam Abdominal exam: Present soft; Absent tenderness Extremities Exam Extremities exam: Present full ROM Neurological Exam Neuro
[2022-12-12 21:40] LABS: Thyroid Stimulating Hormone 1.75 uIU/mL (0.465-4.68)
[2022-12-12 22:00] LABS: Eosinophils % 2 % (0-3); Lymphocytes % 47 % (10-50); Monocytes % 1 % (2-9); Neutrophils % 49 % (42-76); Platelet Estimate Normal; RBC Morphology Normal; Total Cells Counted 100
[2022-12-12 23:40] LABS: Acetone, Serum (Rapid) None Detected (None Detect)
[2022-12-12 23:45] LABS: Microscopic, Urine URINE MICROSCOPIC (MICROSCOPIC)
[2022-12-12 23:55] LABS: Coronavirus 19, PCR Not Detected (NotDetected); Influenza A, PCR Not Detected (NotDetected); Influenza B, PCR Not Detected (NotDetected)
[2022-12-12 23:57] LABS: Appearance,Urine CLEAR (Clear); Bilirubin,Urine Negative (Negative); Blood, Urine Negative (Negative); Color,Urine YELLOW (Yellow); Glucose,Urine (UA) 2+ (Negative); Ketones,Urine Negative (Negative); Leukocyte Esterase,Urine TRACE (Negative); Nitrate,Urine Negative (Negative); PH,Urine 5.5 (5.0-8.5); Protein,Urine Negative (Negative); Urobilinogen,Urine 0.2 EU/dl (0.2)
[2022-12-13] VITALS (9 sets, daily range): BP systolic 96–165; BP diastolic 47–80; PULSE 51–68; RESP 16–20; TEMP 36.3–37; O2SAT 96–98; BMI 28.8; BMI 29.2
[2022-12-13 00:02] LABS: Bacteria,Urine Trace /lpf; WBC,Urine Occasional #/hpf (0-3); Yeast,Urine Occasional /lpf
--- NOTE | 2022-12-13 00:16 | EXP.HP ---
History of Present Illness *Admission Date: 12/13/22 *Reason for visit:: Fall *History of present illness: Ms. Rivas is a 71-year-old female with a past medical history of CLL, DM, CKD, HTN and Anxiety Disorder. She presents to [facility] due to right sided rib pain following a fall in the home from ground level the day prior to presentation, she also reports a recent fall approximately 1 week prior to that due to dizziness. In the ER, the patient underwent multiple imaging that included a CT of the abdomen and pelvis, Cxray, CT of the cervical spine, pelvic xray, Head CT and CT of the chest. All imaging showed no acute findings except the CT of the chest that showed right anterior 8th through 10th rib fractures. CBC showed an elevated WBC of 16.2, CMP showed a creatinine of 2.50, the patient's most recent baseline is 1.8 and blood glucose of 472. The patient will be admitted with initial impression: RANDY and Falls. The patient's diruetics will be held and she will be given iv fluids. [facility] Disclaimer: The information contained in this section may have been updated after the patient was seen, as this information can be updated by other users. Medical History (Updated 12/13/22 @ 07:50 by Gavin ESCOBEDO)MD) CLL (chronic lymphocytic leukemia) Diabetes mellitus History of hypertension Surgical History (Updated 12/13/22 @ 00:22 by Luis Calvo DNP) H/O lithotripsy History of cholecystectomy Social History Smoking Status: Never smoker alcohol intake: never substance use type: denies use current occupational status: unemployed Travel in the last 8 weeks: None household members: none housing: house caffeine: Yes Review of Systems Constitutional Constitutional: Reports system reviewed and no additional complaints, except as documented and Reports frequent falls Eyes Eyes: Reports system reviewed and no additional complaints, except as documented ENT Ears, Nose, Mouth, and Throat: Reports system reviewed and no additional complaints, except as documented and Reports vertigo *Cardiovascular Cardiovascular: Reports system reviewed and no additional complaints, except as documented *Respiratory Respiratory: Reports system reviewed and no additional complaints, except as documented *Gastrointestinal Gastrointestinal: Reports system reviewed and no additional complaints, except as documented *Genitourinary Genitourinary: Reports system reviewed and no additional complaints, except as documented *Musculoskeletal Musculoskeletal: Reports abnormal gait Integumentary/Breasts Skin/Breast: Reports system reviewed and no additional complaints, except as documented *Neurologic Neurologic: Reports abnormal gait, Reports frequent falls and Reports vertigo Psychiatric Psychiatric: Reports system reviewed and no additional complaints, except as documented Endocrine Endocrine: Reports system reviewed and no additional complaints, except as documented Hematologic/Lymphatic Hematologic/Lymphatic: Reports system reviewed and no additional complaints, except as documented Allergic/Immunologic Allergic/Immunologic: Reports system reviewed and no additional complaints, except as documented Meds Home Medications and Allergies Home Medications Medication Instructions Recorded Confirmed Type clonazepam 1 mg tablet 1 mg PO BIDP PRN Anxiety 03/17/20 12/13/22 History spironolactone 50 mg tablet 50 mg PO DAILY fluid retention 03/17/20 12/13/22 History gabapentin 400 mg capsule 400 mg PO TID Neuropathy 09/14/20 12/13/22 History insulin lispro 100 unit/mL 30 unit SQ DAILY Diabetes 09/14/20 12/12/22 History subcutaneous pen (Humalog KwikPen (U-100) Insulin) lisinopril 20 1 tab PO DAILY High blood pressure 09/14/20 12/13/22 History mg-hydrochlorothiazide 25 mg tablet insulin glargine 100 unit/mL (3 30 unit SQ DAILY Diabetes 09/25/21 12/13/22
[2022-12-13 00:20] LABS: Troponin I < 0.01 ng/ml (0.00-0.034)
--- NOTE | 2022-12-13 00:27 | PC.NURSE ---
at 0010 received phone report from [facility]/ED Nurse. 71 yo female admitting dx: Acute Kidney Injury/DM/ Increase Falls/Dizzy. To transfer per W/C to room 206.
--- NOTE | 2022-12-13 00:31 | PC.NURSE ---
Patient arrived at 0030 via w/c.
--- NOTE | 2022-12-13 00:32 | PC.NURSE ---
pt arrived via wheelchair @00;30
[2022-12-13 02:05] LABS: Creatinine,Urine Random 129 mg/dL (Not Estab.)
[2022-12-13 03:01] LABS: Troponin I < 0.01 ng/ml (0.00-0.034)
[2022-12-13 03:26] LABS: Hemoglobin A1C 10.8 % (4.0-6.0)
--- NOTE | 2022-12-13 04:48 | PC.NURSE ---
RESTING QUIETLY IN BED. ONLY COMPLAINT IS TENDERNESS IN RIGHT RIBS. BED ALARM ON. INSTRUCTED TO CALL FOR ASSIST IF NEEDS TO GET OOB. A/O X 4, COOPERATIVE. USES WALKER AT HOME.
[2022-12-13 05:33] LABS: POC Glucose,Bedside 277 (70-110)
--- NOTE | 2022-12-13 07:34 | HMH.PHAINT1 ---
Pharmacy Intervention Comments: verified home medication list using list from outpatient pharmacy and pt interview
[2022-12-13 08:11] LABS: Chloride 99 mmol/L (98-107); Potassium 4.5 mmoL/L (3.5-5.1); Sodium 131 mmol/L (136-145)
[2022-12-13 08:13] LABS: Basophils # 0.1 K/mm3 (0-0.2); Basophils % 0.5 % (0.1-2.0); Eosinophils # 0.4 K/mm3 (0.0-0.4); Eosinophils % 3.3 % (0.1-12.0); Hematocrit 33.9 % (37.0-47.0); Lymphocytes # 7.2 K/mm3 (0.7-4.5); Mean Corpuscular HGB Conc 31.9 g/dL (31.8-35.4); Mean Corpuscular Hemoglobin 29.1 pg (27.0-31.2); Mean Platelet Volume 8.9 fl (7.4-10.4); Monocytes # 0.4 K/mm3 (0.1-1.0); Monocytes % 3.4 % (1.7-9.3); Neutrophils # 4.1 K/mm3 (1.8-7.8); Neutrophils % 33.7 % (37.0-80.0); Platelet Count 259 K/mm3 (142-424); Red Blood Count 3.72 M/mm3 (4.20-5.40); Red Cell Distribution Width 14.8 % (11.5-17.5); White Blood Count 12.2 K/mm3 (4.8-10.8)
[2022-12-13 08:14] LABS: Anion Gap 13.5 mEq/L (5-15); Calcium 8.5 mg/dl (8.4-10.2); Carbon Dioxide 23 mmol/L (22.0-30.0); Creatinine Clearance Estimated 26 mL/min (50-200); Estimated Glomerular Filt Rate 18 ml/min (>60); GFR (African American) 22 ML/MIN (>60); Glucose 232 mg/dl (74-100)
[2022-12-13 08:15] LABS: MANUAL DIFFERENTIAL MANUAL DIFFERENTIAL (MANUAL DIFF)
[2022-12-13 08:25] LABS: Blood Urea Nitrogen 85 mg/dl (7-17)
--- NOTE | 2022-12-13 10:02 | PC.NURSE ---
COURTESY TECH NOTE; ROUNDED ON PT 0815,
--- NOTE | 2022-12-13 10:03 | PC.NURSE ---
COURTESY TECH NOTE; ROUNDED ON PT 0820, ASSISTED PT TO RESTROOM X1 ASSIST, PT AMBULATED FROM BATHROOM TO CHAIR TWICE, ACTIVITY TOLERATED WELL, PT DENIED NEED FOR DRINK OR NEED TO REPOSITION, CALL LIGHT WITHIN REACH, NO FURTHER REQUESTS AT THIS TIME Alicia VALLEJO, SRNA
--- NOTE | 2022-12-13 10:15 | HMH.PTEV ---
Physical Therapy Evaluation Rehab PT IP Evaluation Start: 12/13/22 00:31 Freq: ONCE Status: Active Protocol: Document 12/13/22 10:08 PHOJANE (Rec: 12/13/22 10:15 PHORNE [id number]) Subjective/History History History 71 yowf adm to [facility] after fall at home with resulting R side rib fxs. She has hx of CLL, DM , CKD, HTN, and previous falls at home. She reports she lives alone, 1 step inside the home, and she is generally independent with all mobility without AD. She reports she has a cane and a walker at home, but she does not usually use them for ambulation. Subjective Subjective Pt reports pain in the R flank , especially with deep inspirations, but agrees to mobility assessment. Rehab PT IP Eval Objective Appearance Patient Behavior Appropriate Patient Orientation Person,Place,Time Difficulty following instructions none Speech Pattern Clear Ambulation Patient Able to Ambulate Yes Ambulation Observation IP General Gait Pattern Observation Wide Based Gait Ambulation Distance (feet) 20 Ambulation Assistive Device None Ambulation Ability Contact Guard/Hand Hold Balance Ability to Arise Able, uses arms to help Sitting Balance Steady, safe Standing Balance Steady, wide stance Dynamic Sitting Balance Ability Good Dynamic Standing Balance Ability Poor Transfers Bed Transfer Ability Contact Guard/Hand Hold Chair Transfer Ability Contact Guard/Hand Hold Sit to Stand Bed Transfer Ability Contact Guard/Hand Hold Sit to Stand Chair Transfer Ability Contact Guard/Hand Hold ROM All Extremities PT ROM Status WFL MMT All Extremities PT MMT WFL Rehab PT IP prob,goals,plan Problems Date of Evaluation: 12/13/22 PT IP Problems Bed Mobility,Transfers,Gait Rehab Potential Rehab Potential Good Plan PT Intervention Plan Bed Mobility,Transfers,Gait, Therapeutic Exercise PT Plan Frequency Daily Duration LOS Discharge Goals Bed Transfer Ability Supervision/Stand by Sit to Stand Chair Transfer Ability Supervision/Stand by Ambulation Assistive Device Rolling Walker Ambulation Distance (feet) 30 Discharge Plan PT Discharge Plan Pt
[2022-12-13 10:29] LABS: POC Glucose,Bedside 256 (70-110)
--- NOTE | 2022-12-13 11:42 | SW/DCPLANNER ---
Addendum entered by Ximena Mendoza 12/16/22 10:00: Kat mon/ [facility] stated that services will begin this week for this patient. Addendum entered by Ximena Mendoza 12/16/22 09:13: Patient information/order has been faxed to [facility]. Original Note: The plan for this patient is to discharge home over the weekend. PT evaluated patient today and recommended returning home w/ home health services. Patient is agreeable to home health and prefers to use [facility]. Home health services will be set up at time of discharge. Patient could potentially be ready for discharge tomorrow.
[2022-12-13 14:09] LABS: Eosinophils % 2 % (0-3); Lymphocytes % 58 % (10-50); Monocytes % 5 % (2-9); Neutrophils % 35 % (42-76); Total Cells Counted 100
[2022-12-13 14:11] LABS: Platelet Estimate Normal; RBC Morphology Normal
[2022-12-13 14:23] LABS: Adenovirus F 40/41, stool Not Detected (NotDetected); Astrovirus Not Detected (NotDetected); Campylobacter Not Detected (NotDetected); Clostridium Difficile A/B, PCR Not Detected (NotDetected); Cryptosporidium Not Detected (NotDetected); Cyclospora Cayetanesis Not Detected (NotDetected); Entamoeba histolytica Not Detected (NotDetected); Enteroaggregative E coli Not Detected (NotDetected); Enteropathogenic E coli Not Detected (NotDetected); Enterotoxigenic E coli Not Detected (NotDetected); Giardia lamblia Not Detected (NotDetected); Norovirus Not Detected (NotDetected); Plesimonas Shigalloides, PCR Not Detected (NotDetected); Rotavirus A Not Detected (NotDetected); Salmonella, PCR Not Detected (NotDetected); Sapovirus Not Detected (NotDetected); Shiga-like toxin E coli Not Detected (NotDetected); Shigella Enterovasive E coli Not Detected (NotDetected); Vibrio Cholerae Not Detected (NotDetected); Vibrio, PCR Not Detected (NotDetected); Yersinia Entercolitica, PCR Not Detected (NotDetected)
--- NOTE | 2022-12-13 14:33 | PC.NURSE ---
COURTESY TECH NOTE; ROUNDED ON PT 1220, ASSISTED PT TO RESTROOM X1 ASSIST, ACTIVITY TOLERATED WELL. PT REFUSED BATHING TWICE, CALL LIGHT WITHIN REACH, NO FURTHER REQUESTS AT THIS TIME. Alicia VALLEJO, LINDSEY
[2022-12-13 16:19] LABS: POC Glucose,Bedside 206 (70-110)
--- NOTE | 2022-12-13 18:09 | PC.NURSE ---
Pt reports several episodes of diarrhea, stool sample sent.
[2022-12-13 18:50] LABS: Chloride 101 mmol/L (98-107); Sodium 132 mmol/L (136-145)
[2022-12-13 18:51] LABS: Potassium 5.7 mmoL/L (3.5-5.1)
[2022-12-13 18:53] LABS: Creatinine Clearance Estimated 30 mL/min (50-200); Estimated Glomerular Filt Rate 22 ml/min (>60); GFR (African American) 26 ML/MIN (>60)
[2022-12-13 18:54] LABS: Anion Gap 15.7 mEq/L (5-15); Calcium 8.5 mg/dl (8.4-10.2); Carbon Dioxide 21 mmol/L (22.0-30.0); Glucose 234 mg/dl (74-100)
[2022-12-13 19:13] LABS: Blood Urea Nitrogen 84 mg/dl (7-17)
--- NOTE | 2022-12-13 19:14 | PC.NURSE ---
GABRIELA MONTES NOTIFIED OF CRITICAL BUN OF 84. NO NEW ORDERS AT THIS TIME.
[2022-12-13 21:07] LABS: POC Glucose,Bedside 292 (70-110)
--- NOTE | 2022-12-13 23:04 | PC.NURSE ---
PATIENT ARRIVED ON THE FLOOR AT 2300. A/O X 4. ORIENTED TO ROOM AND EQUIPEMENT.
[2022-12-14] VITALS: BP 127/53; PULSE 60; RESP 18; TEMP 37.1; O2SAT 96
--- NOTE | 2022-12-14 03:53 | PC.NURSE ---
PATIENT HAS HAD A QUIET NIGHT. WAS MEDICATED AT 2157 WITH ZOFRAN IV AND CLONAZEPAM 1 MG PO FOR NERVES . HAS RESTED WELL SINCE THEN.
[2022-12-14 04:00] VITALS: BP 148/48; PULSE 61; RESP 16; TEMP 37.1; O2SAT 98; BMI 29.5
[2022-12-14 05:17] LABS: POC Glucose,Bedside 297 (70-110)
[2022-12-14 06:48] LABS: Basophils # 0.1 K/mm3 (0-0.2); Basophils % 0.4 % (0.1-2.0); Eosinophils # 0.4 K/mm3 (0.0-0.4); Eosinophils % 2.4 % (0.1-12.0); Hematocrit 37.4 % (37.0-47.0); Hemoglobin 11.9 g/dL (12.2-16.2); Lymphocytes # 6.2 K/mm3 (0.7-4.5); Lymphocytes % 42.4 % (10-50); Mean Corpuscular HGB Conc 31.7 g/dL (31.8-35.4); Mean Corpuscular Hemoglobin 28.8 pg (27.0-31.2); Monocytes # 0.4 K/mm3 (0.1-1.0); Monocytes % 2.4 % (1.7-9.3); Neutrophils # 7.6 K/mm3 (1.8-7.8); Neutrophils % 52.3 % (37.0-80.0); Platelet Count 267 K/mm3 (142-424); Red Blood Count 4.11 M/mm3 (4.20-5.40); Red Cell Distribution Width 14.8 % (11.5-17.5); White Blood Count 14.5 K/mm3 (4.8-10.8)
[2022-12-14 07:01] LABS: Chloride 106 mmol/L (98-107); Sodium 135 mmol/L (136-145)
[2022-12-14 07:04] LABS: Anion Gap 14.5 mEq/L (5-15); Blood Urea Nitrogen 70 mg/dl (7-17); Carbon Dioxide 21 mmol/L (22.0-30.0); Creatinine Clearance Estimated 38 mL/min (50-200); Estimated Glomerular Filt Rate 28 ml/min (>60); GFR (African American) 33 ML/MIN (>60)
[2022-12-14 07:05] LABS: Calcium 8.7 mg/dl (8.4-10.2); Glucose 283 mg/dl (74-100)
[2022-12-14 07:23] LABS: Potassium 6.5 mmoL/L (3.5-5.1)
[2022-12-14 07:44] VITALS: BP 129/54; PULSE 62; RESP 16; TEMP 36.5; O2SAT 98
--- NOTE | 2022-12-14 08:00 | PC.NURSE ---
spoke with MD regarding critical lab result. New orders received
[2022-12-14 09:43] LABS: POC Glucose,Bedside 180 (70-110)
[2022-12-14 10:18] LABS: Sodium, Urine 43 mmol/L (Not Estab.)
[2022-12-14 11:46] LABS: POC Glucose,Bedside 201 (70-110)
--- NOTE | 2022-12-14 15:04 | EXP.DC.SUM ---
General Admission date:: 12/13/22 HPI HPI HPI: Ms. Rivas is a 71-year-old female with a past medical history of CLL, DM, CKD, HTN and Anxiety Disorder. She presents to [facility] due to right sided rib pain following a fall in the home from ground level the day prior to presentation, she also reports a recent fall approximately 1 week prior to that due to dizziness. In the ER, the patient underwent multiple imaging that included a CT of the abdomen and pelvis, Cxray, CT of the cervical spine, pelvic xray, Head CT and CT of the chest. All imaging showed no acute findings except the CT of the chest that showed right anterior 8th through 10th rib fractures. CBC showed an elevated WBC of 16.2, CMP showed a creatinine of 2.50, the patient's most recent baseline is 1.8 and blood glucose of 472. The patient will be admitted with initial impression: RANDY and Falls. The patient's diruetics will be held and she will be given iv fluids. Hospital Course Hospital Course Hospital Course: Patient admitted status post fall, and diagnosed with acute kidney injury, weakness. Patient gently hydrated during hospitalization. Patient also suffer from hypoglycemia with insulin regimen adjusted during hospitalization. 12/14/2022 in a.m., patient suffered from hypokalemia with potassium of 6.5. Patient given 3 units regular insulin IV, 15 g Kayexalate, and [address] Brock for management of issue. Patient denied palpitations, confusion, muscle cramps. Patient counseled at length about Dr. Brock's recommendation for patient to discharge to assisted living facility or fpc. Patient declined assisted living facility or fpc placement, and accepted home health at time of hospital discharge. Patient understands that she is at high risk for recurrent falls given recent fall prior to hospitalization, and previous fall 3 months ago. Patient agrees to follow-up with primary care physician after hospital disposition. Patient also advised to withhold from taking Lasix for at least 5 days after hospital disposition. Patient advised to follow-up with primary care physician before contemplating resuming as needed Lasix therapy as outpatient. Of special note, patient also suffered from acute diarrhea during hospitalization most likely secondary to gastroenteritis. Given 15 g Kayexalate and patient's acute diarrhea issues, expect patient's potassium levels to continue a downward trend after hospital disposition. Patient had stool studies done during hospitalization which for negative by time of hospital discharge. Exam Data for Last 24 hours Vital signs and Labs for Last 24 Hours: Temp Pulse Resp BP Pulse Ox 97.7 F 62 16 129/54 L 98 12/14/22 07:44 12/14/22 07:44 12/14/22 07:44 12/14/22 07:44 12/14/22 07:44 Laboratory Results - last 24 hr 12/13/22 00:00: Urine Sodium 43 12/13/22 14:17: Stl Aeromonas (PCR) Not detected, Stl C. cayetanensis PCR Not detected, Stool Rotavirus (PCR) Not detected, Stl Adenov F 40/41 PCR Not detected, Stool Astrovirus (PCR) Not detected, Stool Campylobacter PCR Not detected, Stl C.difficile Tox PCR Not detected, Stool Cryptosporidium PCR Not detected, Stl E.coli Shiga Tox PCR Not detected, Stool E coli O157 PCR Not detected, Stl Enterotoxigenic E PCR Not detected, Stool EPEC (PCR) Not detected, Stool EAEC (PCR) Not detected, Stl E. histolytica PCR Not detected, Stool Giardia Lamblia PCR Not detected, Stool Salmonella PCR Not detected, Stool Sapovirus (PCR) Not detected, Stl P. shigelloides PCR Not detected, Stl Shigella/EIEC PCR Not detected, St Y.enterocolitica PCR Not detected, Stool Vibrio (PCR) Not detected, Stl Vibrio cholerae PCR Not detected, Stl Norovirus GI/GII PCR Not detected 12/13/22 16:12: POC Glucose 206 H 12/13/22 18:40: Sodium 132 L, Potassium 5.7 H D, Chloride 101, Carbon Dioxide 21 L, Anion Gap 15.7 H, BUN 84 H, Creatinine 2.20 H, Estimated Creat Clear 30, Estimated GFR 22
--- NOTE | 2022-12-14 15:48 | PC.NURSE ---
pt has been discharged form the facility. Took all belongings with her and voiced understanding of all discharge education and follow up apts. Pt will held lasix @ home for five days per dc instruction. pts son states he will help to make accommodations for his mom so that she is not alone until her gait has improved. Home health will see pt. Saline lock removed.
--- NOTE | 2022-12-16 15:11 | CARE MANAGER ---
Spoke with patient for post-discharge phone call, no issues noted.
== END 2022-12-14 15:30 | disposition home health service (06) ==
LOC: ER 22:18 → 2ND 12-13 00:20
PROVIDERS: Nurse Practitioner Family; Admitting Provider Internal Medicine Adolescent Medicine; Emergency Provider Emergency Medicine; PCP Nurse Practitioner Family; Visit Provider Internal Medicine Adolescent Medicine
DX: S22.31XA Fracture of one rib, right side, initial encounter for closed fracture (principal); N17.9 Acute kidney failure, unspecified; E03.9 Hypothyroidism, unspecified; Z79.4 Long term (current) use of insulin; E11.22 Type 2 diabetes mellitus with diabetic chronic kidney disease; N18.9 Chronic kidney disease, unspecified; F41.9 Anxiety disorder, unspecified; Z79.899 Other long term (current) drug therapy; K52.9 Noninfective gastroenteritis and colitis, unspecified; W01.0XXA Fall on same level from slipping, tripping and stumbling without subsequent striking against object, initial encounter; Z91.81 History of falling; Y92.018 Other place in single-family (private) house as the place of occurrence of the external cause
CPT/HCPCS: G0378; 36415; 70450; 71045; 71250; 72125; 72170; 74176; 80048; 80053; 81001; 82009; 82550; 82570; 82962; 83036; 83690; 83735; 84300; 84436; 84443; 84484; 85007; 85025; 87507; 87635; 87636; 93005; 97163; 97530; 99285; C9803; J2405; U0003; U0005

== ENCOUNTER 2023-03-13 10:29 | Outpatient (CLI) | payer MEDICARE, SELFPAY ==
[2023-03-13 10:39] VITALS: BMI 27.9
[2023-03-13 11:02] LABS: Basophils # 0.1 K/mm3 (0-0.2); Basophils % 0.7 % (0.1-2.0); Eosinophils # 0.5 K/mm3 (0.0-0.4); Eosinophils % 3.3 % (0.1-12.0); Hematocrit 40.3 % (37.0-47.0); Hemoglobin 12.7 g/dL (12.2-16.2); Lymphocytes # 8.4 K/mm3 (0.7-4.5); Lymphocytes % 53.8 % (10-50); Mean Corpuscular HGB Conc 31.5 g/dL (31.8-35.4); Mean Corpuscular Hemoglobin 28.3 pg (27.0-31.2); Mean Corpuscular Volume 89.8 fl (81-99); Mean Platelet Volume 7.8 fl (7.4-10.4); Monocytes # 0.4 K/mm3 (0.1-1.0); Monocytes % 2.7 % (1.7-9.3); Neutrophils # 6.2 K/mm3 (1.8-7.8); Neutrophils % 39.6 % (37.0-80.0); Platelet Count 273 K/mm3 (142-424); Red Blood Count 4.49 M/mm3 (4.20-5.40); White Blood Count 15.6 K/mm3 (4.8-10.8)
[2023-03-13 11:07] LABS: MANUAL DIFFERENTIAL MANUAL DIFFERENTIAL (MANUAL DIFF)
--- NOTE | 2023-03-13 11:22 | PC.NURSE ---
1045 - BLOOD DRAWN FROM LEFT AC TO CHECK LABS PRIOR TO DR PORTER APPT.
[2023-03-13 12:03] LABS: Eosinophils % 3 % (0-3); Lymphocytes % 62 % (10-50); Neutrophils % 29 % (42-76); Total Cells Counted 100
[2023-03-13 12:04] LABS: Platelet Estimate Normal; RBC Morphology Normal
== END 2023-03-13 10:50 | disposition home or self-care (01) ==
PROVIDERS: Internal Medicine Medical Oncology; PCP Nurse Practitioner Family; Visit Provider Nurse Practitioner Family
DX: C91.10 Chronic lymphocytic leukemia of B-cell type not having achieved remission (principal)
CPT/HCPCS: 36415; 85007; 85025

== ENCOUNTER → 2023-05-14 16:29 | Outpatient (CLI) | payer MEDICARE, SELFPAY ==
--- NOTE | 2023-05-14 | XR_ITS ---
PROCEDURE INFORMATION: Exam: XR Right Knee Exam date and time: 05/14/2023 4:39 PM Age: 72 years old Clinical indication: Pain; Knee; Right TECHNIQUE: Imaging protocol: Radiologic exam of the right knee. Views: 1 or 2 views. COMPARISON: CR LLR LOWER LEG-RT 09/06/2016 12:24 PM FINDINGS: Bones/joints: There is no evidence of acute fracture or dislocation. [id number] osteoarthritic degenerative changes involve the femoral tibial joint space, most prominent laterally where there is moderate joint space narrowing, subchondral sclerosis and marginal osteophytes. There is sharpening of the tibial spines. Minor medial femoral tibial joint space narrowing is present. There is mild patellofemoral degenerative changes with marginal osteophytes. Soft tissues: There is medial periarticular soft tissue prominence which may reflect mild edema. Correlate clinically. No subcutaneous emphysema or radiopaque foreign bodies. There is likely a small suprapatellar joint effusion. IMPRESSION: 1. No acute posttraumatic osseous injury. 2. Mild to moderate osteoarthritis. 3. Suspect minor joint effusion. 4. Suspect mild medial soft tissue edema.
== END ==
LOC: RAD 16:30
PROVIDERS: PCP Family Medicine; Visit Provider Family Medicine
DX: M25.561 Pain in right knee (principal)
CPT/HCPCS: 73560

== ENCOUNTER 2023-10-14 14:05 | Outpatient (CLI) | payer MEDICARE, SELFPAY ==
--- NOTE | 2023-10-14 14:15 | XR_ITS ---
FINAL REPORT CLINICAL HISTORY: Foot pain COMPARISON: None FINDINGS: 3 images of the right foot were obtained. There is a transverse fracture of the second proximal phalanx in its midportion without intra-articular extension. The joint spaces are intact. There is a linear metallic density measuring 4 mm in size in the soft tissues of the lateral aspect of the hindfoot. Osteopenia is present. IMPRESSION: Transverse fracture of the second proximal midportion of the phalanx, without intra-articular extension. Linear metallic density, 4 mm in size in the soft tissues of the lateral aspect of the hindfoot. Reviewed, Interpreted and Dictated by Richy Reddy MD Transcribed by Sandi Musa Authenticated and [facility]
== END 2023-10-14 23:59 ==
LOC: RAD 14:07
PROVIDERS: PCP Nurse Practitioner; Visit Provider Podiatrist
DX: M79.671 Pain in right foot (principal)
CPT/HCPCS: 73630

== ENCOUNTER 2023-11-01 12:54 | Emergency (ER) | payer MEDICARE, SELFPAY ==
[2023-11-01] VITALS (9 sets, daily range): BP systolic 125–163; BP diastolic 57–89; PULSE 54–63; RESP 16–18; TEMP 36.6; O2SAT 96–100; BMI 28.1
--- NOTE | 2023-11-01 13:04 | ECG_ITS ---
APPROVED REPORT Exam: Resting ECG HR:62 bpm ECG Measurements Heart Rate 62 AXES QRSd 94 QRS 69 QT 431 T -9 QTc 436 Conclusion SINUS RHYTHM WITH HIGH GRADE AV BLOCK POSSIBLE ANTERIOR MYOCARDIAL INFARCTION , PROBABLY OLD [30 ms Q WAVE IN V3/V4, OR R < 0.2 mV IN V4] CRITICAL TEST RESULT UNCONFIRMED REPORT Electronically signed by : ROMMEL MAURO, 11/05/2023 05:25:54
--- NOTE | 2023-11-01 13:10 | XR_ITS ---
PROCEDURE INFORMATION: Exam: XR Chest Exam date and time: 11/01/2023 1:30 PM Age: 72 years old Clinical indication: Other: Syncope TECHNIQUE: Imaging protocol: Radiologic exam of the chest. Views: 1 view. COMPARISON: CR XR CHEST PORTABLE 12/12/2022 9:48 PM FINDINGS: Tubes, catheters and devices: EKG leads. Lungs: Unremarkable. No consolidation. Pleural spaces: Unremarkable. No pleural effusion. No pneumothorax. Heart/Mediastinum: Unremarkable. No cardiomegaly. Vasculature: Atherosclerosis. Bones/joints: Left shoulder region calcified/ossified loose bodies again demonstrated. IMPRESSION: No acute findings.
--- NOTE | 2023-11-01 13:16 | PC.NURSE ---
pt arrived by EMS and transferred from stretcher to bed. Pt was given partial bath , put in clean brief and a gown.
[2023-11-01 13:17] LABS: Chloride 103 mmol/L (98-107); Potassium 4.3 mmoL/L (3.5-5.1); Sodium 139 mmol/L (136-145)
[2023-11-01 13:19] LABS: Blood Urea Nitrogen 47 mg/dl (7-17); Creatinine Clearance Estimated 29 mL/min (50-200); Estimated Glomerular Filt Rate 22 ml/min (>60); GFR (African American) 26 ML/MIN (>60)
[2023-11-01 13:20] LABS: Alanine Aminotransferase 18 U/L (12-78); Albumin Level 3.6 g/dl (3.5-5.0); Albumin/Globulin Ratio 1.2 (1.1-1.8); Alkaline Phosphatase 63 U/L (38-126); Anion Gap 14.3 mEq/L (5-15); Aspartate Amino Transferase 29 U/L (14-36); Bilirubin,Total 0.6 mg/dl (0.2-1.3); Calcium 9.1 mg/dl (8.4-10.2); Carbon Dioxide 26 mmol/L (22.0-30.0); Glucose 152 mg/dl (74-100); Total Protein,Serum 6.6 g/dl (6.3-8.2)
--- NOTE | 2023-11-01 13:21 | HMH.EDGENADL ---
Discharge Plan Disposition Patient Disposition: Home, Self-Care Prescriptions Prescriptions: New cefdinir 300 mg capsule 300 mg PO BID 7 Days Qty: 14 0RF No Action levothyroxine 88 mcg tablet 88 mcg PO DAILY hydrocodone-acetaminophen 5-325 mg tablet 1 tab PO Farxiga 10 mg tablet 10 mg PO DAILY lisinopril-hydrochlorothiazide 20-25 mg tablet 1 tab PO DAILY gabapentin 400 mg capsule 400 mg PO TID (DME) pen needle, diabetic [BD Ultra-Fine Mini Pen Needle] 31 gauge x 3/16 needle See Rx Instructions .ROUTE .MEDSUPPLY Qty: 50 Rx Instructions: As directed febuxostat [Uloric] 40 mg tablet 40 mg PO DAILY insulin lispro [Humalog KwikPen Insulin] 100 unit/mL insulin pen 0 - 14 unit SQ TIDWMEAL Qty: 10 10RF Rx Instructions: Per home sliding scale If blood sugar 151-200 take 4 units short acting insulin If blood sugar 200-250 take 8 units short acting insulin If blood sugar 251-300 take 12 units short acting insulin If blood sugar 301-350 take 14 units short acting insulin If blood sugar greater than 350 take 14 units insulin and call physician for further instructions. insulin glargine [Lantus Solostar U-100 Insulin] 100 unit/mL (3 mL) insulin pen 30 unit SQ BID Qty: 10 10RF clonazepam 1 MG tablet 1 mg PO BIDP PRN (Reason: Anxiety) spironolactone 50 MG tablet 50 mg PO DAILY Referrals Follow up/Referrals: Provider,Referral, MD [Primary Care Provider] - See instructions Activity Restrictions/Add. Instructions Additional Instructions/Restrictions: Call your family doctor to establish care for this visit to the emergency department and schedule follow-up within 48 hours to ensure improvement. If you have any worsening of your condition or any other concerning signs or symptoms, return to the emergency department or your primary care doctor for further evaluation. Also talk to family doctor about physical therapy and home strengthening exercises. Try to eat around 60 to 75 g of protein a day and stay plenty hydrated. Clinical Impressions Clinical Impression: Syncope UTI (urinary tract infection) Qualifiers: Urinary tract infection type: acute cystitis Hematuria presence: without hematuria Qualified Code(s): N30.00 - Acute cystitis without hematuria Instructions Patient Instructions: DI for Syncope in Adults (Fainting), DI for Syncope in Children (Fainting) Discharge ED Provider: Jesus Dias General Adult HPI <Vicente HoodDO - Last Filed: 11/01/23 15:30> General Chief complaint: Syncope Stated complaint: weakness Time Seen by Provider: 11/01/23 13:14 Mode of Arrival: EMS Source of Information: Patient and EMS Limitations: No Limitations Description of Symptoms (Recalled from ER Triage Doc. by RN): weakness,syncopal episode and fell in bathroom, low heart rate History of Present Illness HPI narrative: 72-year-old female with past medical history significant for CLL, hypertension, DM 2, CKD, chronic back pain, presents today for evaluation concerning syncopal episode prior to arrival. Patient also states that she has not felt well and has had generalized weakness over the past week. EMS found patient on the floor in her bathroom covered in feces. Patient states that she was attempting to use the restroom when she passed out. Has not had any fevers, chills, chest pain, shortness of breath, abdominal pain, dysuria or hematuria. She does note that she has slow heart rate at baseline in the 60s. No other complaints. She did receive 0.5 mg of atropine en route to ED by EMS for a heart rate of 40. Related Data Home Medications Medication Instructions Recorded Confirmed clonazepam 1 mg tablet 1 mg PO BIDP PRN Anxiety 03/17/20 10/14/23 spironolactone 50 mg tablet 50 mg PO DAILY fluid retention 03/17/20 10/14/23 gabapentin 400 mg capsule 400 mg PO TID Neuropathy 09/14/20 10/14/23 lisinopril 20 1 tab PO DAILY High blood pressure 09/14/20 10/14/23 mg-hydrochlorothiazide 25 mg tablet levothyroxine 88 mcg tablet 88 mcg PO DAILY hypothyroidism 10/15/21 10/14/23 pen needle, diabetic 31 gauge x #50 ea 11/13/21 10/14/2309/12 (BD Ultra-Fine Mini Pen Needle) febuxostat 40 mg tablet (Uloric) 40 mg PO DAILY gout 12/13/22 10/14/23 dapagliflozin propanediol 10 mg 10 mg PO DAILY 03/13/23 10/14/23 tablet (Farxiga) hydrocodone 5 mg-acetaminophen 325 1 tab PO 03/13/23 10/14/23 mg tablet Previous Rx's Medication Instructions Recorded insulin glargine 100 unit/mL (3 30 unit (0.3 mL) SQ BID Diabetes 12/14/22 mL) subcutaneous pen (Lantus #10 mL Solostar U-100 Insulin) insulin lispro 100 unit/mL 0 - 14 unit (0 - 0.14 mL) SQ 12/14/22 subcutaneous pen (Humalog KwikPen TIDWMEAL Diabetes #10 mL (U-100) Insulin) cefdinir 300 mg capsule 300 mg PO BID 7 days #14 caps 11/01/23 Allergies Allergy/AdvReac Type Severity Reaction Status Date / Time moxifloxacin Allergy Severe S-ANAPHYLAX Verified 10/14/23 14:54 IS Sulfa (Sulfonamide Allergy Mild NA-NAUSEA/V Verified 10/14/23 14:54 Antibiotics) OMITING PFSH <Vicente Hood DO - Last Filed: 11/01/23 15:30> PFSH Disclaimer: The information contained in this section may have been updated after the patient was seen, as this information can be updated by other users. Medical History CLL (chronic lymphocytic leukemia) History of hypertension Diabetes mellitus Surgical History H/O lithotripsy History of cholecystectomy Social History Smoking Status: Never smoker alcohol intake: never substance use type: denies use current occupational status: unemployed Travel in the last 8 weeks: None household members: none housing: house caffeine: Yes <Vicente Hood DO - Last Filed: 11/01/23 15:30> ROS Obtained: Yes All systems reviewed & no additional complaints except as documented Physical Exam <Vicente Hood DO - Last Filed: 11/01/23 15:30> General General appearance: alert and in no apparent distress Head Head exam: atraumatic and normocephalic Eye Eye exam: Present normal appearance, PERRL and EOMI ENT ENT exam: Present normal oropharynx and mucous membranes moist Neck Neck exam: Present full ROM; Absent meningismus Respiratory Respiratory exam: Absent respiratory distress, wheezes, stridor or accessory muscle use Cardiovascular Cardiovascular exam: Present normal rhythm Abdominal Exam Abdominal exam: Present soft; Absent distention, tenderness, guarding, rebound or rigidity Neurological Exam Neurological exam: Present alert, oriented X3 and CN II-XII intact; Absent motor sensory deficit Psychiatric Psychiatric exam: Present normal affect and normal mood Skin Skin exam: Present warm and dry Medical Decision Making <Vicente Hood DO - Last Filed: 11/01/23 15:30> Medical Records Medical records reviewed: Yes I reviewed the patient's medical records. Xu Inquiry Pt receiving controlled substance: No Xu was queried for this patient: No Vital Signs: 11/01/23 12:54 11/01/23 13:30 11/01/23 14:00 Temperature 98 F Temperature Source Oral Pulse Rate 60 57 L Pulse Rate [Right] 63 Respiratory Rate 18 18 16 Blood Pressure 132/89 135/61 Blood Pressure [Right Arm] 125/60 Blood Pressure Mean 97 85 Blood Pressure Mean [Right Arm] 81 02 Sat by Pulse Oximetry 98 96 100 Oxygen Delivery Method Room Air 11/01/23 14:30 11/01/23 15:00 11/01/23 15:30 Temperature Temperature Source Pulse Rate 54 L 55 L 55 L Pulse Rate [Right] Respiratory Rate 16 16 18 Blood Pressure 131/57 L 136/60 143/65 H Blood Pressure [Right Arm] Blood Pressure Mean 75 76 75 Blood Pressure Mean [Right Arm] 02 Sat by Pulse Oximetry 100 99 Oxygen Delivery Method Lab Data Lab Results 11/01/23 12:56: WBC 18.2 H, RBC 4.39, Hgb 13.1, Hct 40.5, MCV 92.2, MCH 29.8, MCHC 32.3, RDW 15.4, Plt Count 278, MPV 8.5, Neut % (Auto) 34.2 L, Lymph % (Auto) 60.8 H, [place] % (Auto) 2.6, Eos % (Auto) 1.5, Baso % (Auto) 0.8, Neut # (Auto) 6.2, Lymph # (Auto) 11.1 H, [place] # (Auto) 0.5, Eos # (Auto) 0.3, Baso # (Auto) 0.2, Total Counted 100, Neutrophils % (Manual) 28 L, Band Neutrophils % 4.0, Lymphocytes % (Manual) 63 H, Monocytes % (Manual) 5, Platelet Estimate Normal, RBC Morphology Normal, Sodium 139, Potassium 4.3, Chloride 103, Carbon Dioxide 26, Anion Gap 14.3, BUN 47 H, Creatinine 2.20 H, Estimated Creat Clear 29, Estimated GFR 22 L, Est GFR ( Amer) 26 L, Glucose 152 H, Calcium 9.1, Magnesium 2.2, Total Bilirubin 0.6, AST 29, ALT 18, Alkaline Phosphatase 63, Troponin I < 0.01, Total Protein 6.6, Albumin 3.6, Globulin 3.0, Albumin/Globulin Ratio 1.2 11/01/23 13:28: SARS-CoV-2 (PCR) Not detected, Influenza A Untype (PCR) Not detected, Influenza Type B (PCR) Not detected 11/01/23 15:52: Urine Color Yellow, Urine Appearance Sl cloudy, Urine pH 6.0, Ur Specific Red [place] 1.025, Urine Protein 2+, Urine Glucose (UA) 3+, Urine Ketones Negative, Urine Blood 2+, Urine Nitrate Negative, Urine Bilirubin Negative, Urine Urobilinogen 0.2, Ur Leukocyte Esterase 1+ A, Urine RBC 10-20, Urine WBC 10-20, Ur Squamous Epith Cells 3-5, Urine Bacteria 1+ 11/01/23 12:56 11/01/23 12:56 Orders (Tests/Meds): ED MEDICATIONS Discontinued Medications Generic Name Dose Route Start Last Admin Trade Name Cyrusq PRN Reason Stop Dose Admin Cefdinir 300 mg 11/01/23 16:13 11/01/23 16:26 Cefdinir 300mg Capsule PO 11/01/23 16:14 300 mg ONCE ONE Administration Sodium Chloride 500 mls @ 500 mls/hr 11/01/23 15:00 11/01/23 15:00 Sod Chloride 0.9% 500ml Bag IV 12/01/23 14:59 500 mls/hr .Q1H WILFREOD Administration Ondansetron HCl 4 mg 11/01/23 15:27 11/01/23 15:51 Ondansetron 4mg/2ml Vial IV 11/01/23 15:28 4 mg ONCE ONE Administration Sodium Chloride 500 ml 11/01/23 14:59 11/01/23 15:44 Sodium Chloride 0.9% 500ml Bag IV 11/01/23 15:00 Not Given ONCE ONE ORDERS Category Date Time Status CT cervical spine wo con Stat Cat Scan 11/01/23 15:[address] head/brain wo con Stat Cat Scan 11/01/23 14:52 Completed CXR --portable [XR chest portable] Stat Exams 11/01/23 13:10 Completed Complete Blood Count Auto Diff Stat Lab 11/01/23 12:56 Completed Comprehensive Metabolic Panel Stat Lab 11/01/23 12:56 Completed Magnesium Stat Lab 11/01/23 12:56 Completed Rapid PCR Covid and Flu A/B Stat Lab 11/01/23 13:28 Completed Troponin I Q3H Lab 11/01/23 16:15 Ordered Troponin I Q3H Lab 11/01/23 19:15 Ordered Troponin I Stat Lab 11/01/23 12:56 Completed UA [Urinalysis and Microscopic] Stat Lab 11/01/23 15:52 Completed Urine Culture Stat Micro 11/01/23 15:52 Received ECG Data Tracing #1: I reviewed this ECG and interpreted as documented below: EKG personally inter by me. Sinus bradycardia with a rate of 55 bpm. No ischemic changes. QTc is 448. QRS 109. HEART Score History (anamnesis): Slightly suspicious ECG: Normal Age: >65 years Risk factors: 1-2 risk factors Troponin: </= normal limit HEART Score: 3 Medical Decision Narrative: 72-year-old female with past medical history significant for CLL, hypertension, DM 2, CKD, chronic back pain, presents today for evaluation concerning syncopal episode prior to arrival. Patient also states that she has not felt well and has had generalized weakness over the past week. EMS found patient on the floor in her bathroom covered in feces. Patient states that she was attempting to use the restroom when she passed out. Has not had any fevers, chills, chest pain, shortness of breath, abdominal pain, dysuria or hematuria. She does note that she has slow heart rate at baseline in the 60s. On assessment she was medically stable and in no acute distress. Afebrile. Abdomen soft nondistended tender palpation. Chest clear to auscultation bilaterally. Neurological exam nonfocal. Otherwise exam findings are normal. Patient diagnoses include not limited to vagal response, orthostasis, electrolyte disturbance, ACS, intracranial abnormality, UTI, among others. Lab workup today remarkable for a WBC of 18.2. Creatinine 2.2 which appears to be at baseline. Initial troponin less than 0.01. Negative COVID and influenza swabs. EKG with no ischemic changes however sinus bradycardia was noted rate of 55. QTc of 448. Chest x-ray did not show any acute cardiopulmonary disease process. I did reassess patient and updated her on lab workup and results. She remained medically stable and in no acute distress at this time. At this time we are pending her CT head and CT C-spine to rule out any abnormalities as she was found on the floor after syncopal episode. It is my suspicion that patient may have had a vagal response which could have led to her syncope. She is also been behind on p.o. intake this week which likely contributes. Care at this time is signed out to oncoming provider pending CT imaging results and reassessment. <Jesus Dias MD - Last Filed: 11/01/23 16:38> Vital Signs: 11/01/23 12:54 11/01/23 13:30 11/01/23 14:00 Temperature 98 F Temperature Source Oral Pulse Rate 60 57 L Pulse Rate [Right] 63 Respiratory Rate 18 18 16 Blood Pressure 132/89 135/61 Blood Pressure [Right Arm] 125/60 Blood Pressure Mean 97 85 Blood Pressure Mean [Right Arm] 81 02 Sat by Pulse Oximetry 98 96 100 Oxygen Delivery Method Room Air 11/01/23 14:30 11/01/23 15:00 11/01/23 15:30 Temperature Temperature Source Pulse Rate 54 L 55 L 55 L Pulse Rate [Right] Respiratory Rate 16 16 18 Blood Pressure 131/57 L 136/60 143/65 H Blood Pressure [Right Arm] Blood Pressure Mean 75 76 75 Blood Pressure Mean [Right Arm] 02 Sat by Pulse Oximetry 100 99 Oxygen Delivery Method Lab Data Lab Results 11/01/23 12:56: WBC 18.2 H, RBC 4.39, Hgb 13.1, Hct 40.5, MCV 92.2, MCH 29.8, MCHC 32.3, RDW 15.4, Plt Count 278, MPV 8.5, Neut % (Auto) 34.2 L, Lymph % (Auto) 60.8 H, [place] % (Auto) 2.6, Eos % (Auto) 1.5, Baso % (Auto) 0.8, Neut # (Auto) 6.2, Lymph # (Auto) 11.1 H, [place] # (Auto) 0.5, Eos # (Auto) 0.3, Baso # (Auto) 0.2, Total Counted 100, Neutrophils % (Manual) 28 L, Band Neutrophils % 4.0, Lymphocytes % (Manual) 63 H, Monocytes % (Manual) 5, Platelet Estimate Normal, RBC Morphology Normal, Sodium 139, Potassium 4.3, Chloride 103, Carbon Dioxide 26, Anion Gap 14.3, BUN 47 H, Creatinine 2.20 H, Estimated Creat Clear 29, Estimated GFR 22 L, Est GFR ( Amer) 26 L, Glucose 152 H, Calcium 9.1, Magnesium 2.2, Total Bilirubin 0.6, AST 29, ALT 18, Alkaline Phosphatase 63, Troponin I < 0.01, Total Protein 6.6, Albumin 3.6, Globulin 3.0, Albumin/Globulin Ratio 1.2 11/01/23 13:28: SARS-CoV-2 (PCR) Not detected, Influenza A Untype (PCR) Not detected, Influenza Type B (PCR) Not detected 11/01/23 15:52: Urine Color Yellow, Urine Appearance Sl cloudy, Urine pH 6.0, Ur Specific Red [place] 1.025, Urine Protein 2+, Urine Glucose (UA) 3+, Urine Ketones Negative, Urine Blood 2+, Urine Nitrate Negative, Urine Bilirubin Negative, Urine Urobilinogen 0.2, Ur Leukocyte Esterase 1+ A, Urine RBC 10-20, Urine WBC 10-20, Ur Squamous Epith Cells 3-5, Urine Bacteria 1+ Orders (Tests/Meds): ED MEDICATIONS Discontinued Medications Generic Name Dose Route Start Last Admin Trade Name Freq PRN Reason Stop Dose Admin Cefdinir 300 mg 11/01/23 16:13 11/01/23 16:26 Cefdinir 300mg Capsule PO 11/01/23 16:14 300 mg ONCE ONE Administration Sodium Chloride 500 mls @ 500 mls/hr 11/01/23 15:00 11/01/23 15:00 Sod Chloride 0.9% 500ml Bag IV 12/01/23 14:59 500 mls/hr .Q1H WILFREDO Administration Ondansetron HCl 4 mg 11/01/23 15:27 11/01/23 15:51 Ondansetron 4mg/2ml Vial IV 11/01/23 15:28 4 mg ONCE ONE Administration Sodium Chloride 500 ml 11/01/23 14:59 11/01/23 15:44 Sodium Chloride 0.9% 500ml Bag IV 11/01/23 15:00 Not Given ONCE ONE ORDERS Category Date Time Status CT cervical spine wo con Stat Cat Scan 11/01/23 15:[address] head/brain wo con Stat Cat Scan 11/01/23 14:52 Completed CXR --portable [XR chest portable] Stat Exams 11/01/23 13:10 Completed Complete Blood Count Auto Diff Stat Lab 11/01/23 12:56 Completed Comprehensive Metabolic Panel Stat Lab 11/01/23 12:56 Completed Magnesium Stat Lab 11/01/23 12:56 Completed Rapid PCR Covid and Flu A/B Stat Lab 11/01/23 13:28 Completed Troponin I Q3H Lab 11/01/23 16:15 Ordered Troponin I Q3H Lab 11/01/23 19:15 Ordered Troponin I Stat Lab 11/01/23 12:56 Completed UA [Urinalysis and Microscopic] Stat Lab 11/01/23 15:52 Completed Urine Culture Stat Micro 11/01/23 15:52 Received HEART Score HEART Score: 3 Medical Decision Narrative: 72-year-old female with past medical history significant for CLL, hypertension, DM 2, CKD, chronic back pain, presents today for evaluation concerning syncopal episode prior to arrival. Patient also states that she has not felt well and has had generalized weakness over the past week. EMS found patient on the floor in her bathroom covered in feces. Patient states that she was attempting to use the restroom when she passed out. Has not had any fevers, chills, chest pain, shortness of breath, abdominal pain, dysuria or hematuria. She does note that she has slow heart rate at baseline in the 60s. On assessment she was medically stable and in no acute distress. Afebrile. Abdomen soft nondistended tender palpation. Chest clear to auscultation bilaterally. Neurological exam nonfocal. Otherwise exam findings are normal. Patient diagnoses include not limited to vagal response, orthostasis, electrolyte disturbance, ACS, intracranial abnormality, UTI, among others. Lab workup today remarkable for a WBC of 18.2. Creatinine 2.2 which appears to be at baseline. Initial troponin less than 0.01. Negative COVID and influenza swabs. EKG with no ischemic changes however sinus bradycardia was noted rate of 55. QTc of 448. Chest x-ray did not show any acute cardiopulmonary disease process. I did reassess patient and updated her on lab workup and results. She remained medically stable and in no acute distress at this time. At this time we are pending her CT head and CT C-spine to rule out any abnormalities as she was found on the floor after syncopal episode. It is my suspicion that patient may have had a vagal response which could have led to her syncope. She is also been behind on p.o. intake this week which likely contributes. Care at this time is signed out to oncoming provider pending CT imaging results and reassessment. Arun: I assumed primary responsibility for this patient after signout from previous physician. On my evaluation, patient able to ambulate, urinate. Independent to rotation of lab work with mild dehydration, patient was given fluids for this. She also has UTI on UA. Head and neck scans without acute abnormality. Because patient at baseline without signs or symptoms of clinical decompensation, deemed appropriate for discharge. Results were relayed to patient who voiced understanding and were agreeable to outpatient management and follow up. I discussed my clinical impression with patient and answered all questions. At this time, the evidence for any other entities in the differential is insufficient to warrant any further testing or ED observation. This was explained as well. Advisory was given that persistent or worsening symptoms require further evaluation. I confirmed the understanding of this discussion. Critical Care <Vicente Hood DO - Last Filed: 11/01/23 15:30> Critical Care Time Critical Care Time: No
[2023-11-01 13:24] LABS: Basophils # 0.2 K/mm3 (0-0.2); Basophils % 0.8 % (0.1-2.0); Eosinophils # 0.3 K/mm3 (0.0-0.4); Eosinophils % 1.5 % (0.1-12.0); Hematocrit 40.5 % (37.0-47.0); Hemoglobin 13.1 g/dL (12.2-16.2); Lymphocytes # 11.1 K/mm3 (0.7-4.5); Lymphocytes % 60.8 % (10-50); Mean Corpuscular HGB Conc 32.3 g/dL (31.8-35.4); Mean Corpuscular Hemoglobin 29.8 pg (27.0-31.2); Mean Corpuscular Volume 92.2 fl (81-99); Mean Platelet Volume 8.5 fl (7.4-10.4); Monocytes # 0.5 K/mm3 (0.1-1.0); Monocytes % 2.6 % (1.7-9.3); Neutrophils # 6.2 K/mm3 (1.8-7.8); Neutrophils % 34.2 % (37.0-80.0); Platelet Count 278 K/mm3 (142-424); Red Blood Count 4.39 M/mm3 (4.20-5.40); Red Cell Distribution Width 15.4 % (11.5-17.5); White Blood Count 18.2 K/mm3 (4.8-10.8)
[2023-11-01 13:26] LABS: MANUAL DIFFERENTIAL MANUAL DIFFERENTIAL (MANUAL DIFF)
[2023-11-01 13:32] LABS: Coronavirus 19, PCR Not Detected (NotDetected); Influenza A, PCR Not Detected (NotDetected); Influenza B, PCR Not Detected (NotDetected)
[2023-11-01 13:37] LABS: Troponin I < 0.01 ng/ml (0.00-0.034)
[2023-11-01 14:00] LABS: Magnesium 2.2 mg/dl (1.6-2.3)
--- NOTE | 2023-11-01 14:00 | ECG_ITS ---
APPROVED REPORT Exam: Resting ECG HR:55 bpm ECG Measurements Heart Rate 55 AXES SD 158 P 59 QRSd 109 QRS -16 QT 460 T 76 QTc 448 Conclusion SINUS BRADYCARDIA MINIMAL VOLTAGE CRITERIA FOR LVH, CONSIDER NORMAL VARIANT [MEETS CRITERIA IN ONE OF: R(aVL), S(V1), R(V5), R(V5/V6)+S(V1)] POSSIBLE ANTERIOR MYOCARDIAL INFARCTION , OF INDETERMINATE AGE [30 ms Q WAVE IN V3/V4, OR R < 0.2 mV IN V4] Electronically signed by : MARJAN DODD, 11/01/2023 16:20:14
--- NOTE | 2023-11-01 14:32 | PC.NURSE ---
family arrived to bedside
[2023-11-01 14:34] LABS: Lymphocytes % 63 % (10-50); Monocytes % 5 % (2-9); Neutrophils % 28 % (42-76); Total Cells Counted 100
[2023-11-01 14:35] LABS: Platelet Estimate Normal; RBC Morphology Normal
--- NOTE | 2023-11-01 14:52 | CT_ITS ---
PROCEDURE INFORMATION: Exam: CT Head Without Contrast Exam date and time: 11/01/2023 3:08 PM Age: 72 years old Clinical indication: Injury or trauma; Fall; Blunt trauma (contusions or hematomas); Additional info: Possible head injury TECHNIQUE: Imaging protocol: Computed tomography of the head without contrast. Radiation optimization: All CT scans at this facility use at least one of these dose optimization techniques: automated exposure control; mA and/or kV adjustment per patient size (includes targeted exams where dose is matched to clinical indication); or iterative reconstruction. COMPARISON: CT HEAD/BRAIN WO CON 12/12/2022 9:37 PM FINDINGS: Brain: No intracranial hemorrhage. Mild-moderate brain volume loss. Moderate white matter changes typical of hypertension or chronic small vessel ischemia. Cerebral ventricles: No ventriculomegaly. Paranasal sinuses: Visualized sinuses are unremarkable. No fluid levels. Mastoid air cells: Visualized mastoid air cells are well aerated. Orbital cavities: Bilateral lens replacements. Bones: Unremarkable. No acute fracture. Soft tissues: Unremarkable. Vasculature: Atherosclerosis. IMPRESSION: No intracranial hemorrhage or acute fracture.
[2023-11-01] MEDS: 0.9 % SODIUM CHLORIDE 500 ML IV (15:00)
--- NOTE | 2023-11-01 15:09 | CT_ITS ---
PROCEDURE INFORMATION: Exam: CT Cervical Spine Without Contrast Exam date and time: 11/01/2023 3:14 PM Age: 72 years old Clinical indication: Injury or trauma; Fall; Blunt trauma; Additional info: Found on floor TECHNIQUE: Imaging protocol: Computed tomography of the cervical spine without contrast. Radiation optimization: All CT scans at this facility use at least one of these dose optimization techniques: automated exposure control; mA and/or kV adjustment per patient size (includes targeted exams where dose is matched to clinical indication); or iterative reconstruction. COMPARISON: CT CERVICAL SPINE WO CON 12/12/2022 9:39 PM FINDINGS: Bones: No acute fracture or subluxation. Multilevel degenerative changes of the spine. Lungs: Lung apices are normal. Vasculature: Atherosclerosis. Soft tissues: Unremarkable. IMPRESSION: 1. No acute fracture or subluxation. 2. Multilevel degenerative changes of the spine.
--- NOTE | 2023-11-01 15:44 | PC.NURSE ---
PT RECEIVED 500ML OF NS BY EMS SO ANOTHER 500ML GIVEN IN ER
[2023-11-01] MEDS: ONDANSETRON 4MG/2ML VIAL 4 MG IV (15:51)
[2023-11-01 15:57] LABS: Microscopic, Urine URINE MICROSCOPIC (MICROSCOPIC)
[2023-11-01 15:59] LABS: Appearance,Urine SL CLOUDY (Clear); Bilirubin,Urine Negative (Negative); Blood, Urine 2+ (Negative); Color,Urine YELLOW (Yellow); Glucose,Urine (UA) 3+ (Negative); Ketones,Urine Negative (Negative); Leukocyte Esterase,Urine 1+ (Negative); Nitrate,Urine Negative (Negative); Protein,Urine 2+ (Negative); Specific Gravity, Urine 1.025 (1.005-1.030); Urobilinogen,Urine 0.2 EU/dl (0.2)
--- NOTE | 2023-11-01 15:59 | PC.NURSE ---
PT AMBULATED TO AND GAVE URINE SAMPLE WITH NO PROBLEMS
[2023-11-01 16:11] LABS: Bacteria,Urine 1+ /lpf
[2023-11-01] MEDS: CEFDINIR 300MG CAPSULE 300 MG PO (16:26)
== END 2023-11-01 17:18 | disposition home or self-care (01) ==
PROVIDERS: Emergency Medicine; Emergency Provider Emergency Medicine
DX: N39.0 Urinary tract infection, site not specified (principal); B95.2 Enterococcus as the cause of diseases classified elsewhere; B96.89 Other specified bacterial agents as the cause of diseases classified elsewhere; R00.1 Bradycardia, unspecified; R55 Syncope and collapse; E11.22 Type 2 diabetes mellitus with diabetic chronic kidney disease; N18.9 Chronic kidney disease, unspecified; I12.9 Hypertensive chronic kidney disease with stage 1 through stage 4 chronic kidney disease, or unspecified chronic kidney disease; C91.10 Chronic lymphocytic leukemia of B-cell type not having achieved remission; Z79.4 Long term (current) use of insulin; Z79.84 Long term (current) use of oral hypoglycemic drugs
CPT/HCPCS: 70450; 71045; 72125; 80053; 81001; 83735; 84484; 85007; 85025; 87086; 87636; 93005; 96361; 96374; 99285; J2405

== ENCOUNTER 2024-01-05 19:07 | Observation (INO) | payer MEDICARE, SELFPAY ==
[2024-01-05] VITALS (9 sets, daily range): BP systolic 148–173; BP diastolic 57–77; PULSE 50–60; RESP 10–18; TEMP 36.4–36.8; O2SAT 96–98; BMI 25.0
--- NOTE | 2024-01-05 19:13 | ECG_ITS ---
APPROVED REPORT Exam: Resting ECG HR:57 bpm ECG Measurements Heart Rate 57 AXES MI 168 P 90 QRSd 103 QRS -37 QT 431 T 69 QTc 426 Conclusion SINUS BRADYCARDIA LEFT AXIS DEVIATION [QRS AXIS < -30] POSSIBLE ANTERIOR MYOCARDIAL INFARCTION , PROBABLY OLD [30 ms Q WAVE IN V3/V4, OR R < 0.2 mV IN V4] Electronically signed by : TYRONE FINN, 01/07/2024 10:14:42
--- NOTE | 2024-01-05 19:16 | ED_ITS ---
<Statement entered by Alejandro Carranza MD - 01/05/24 23:25> I was consulted by the CHARLA, and we discussed the complexity of the problems being addressed. I approved the treatment and management plan for this patient's care in the emergency department, thus performing a substantive portion of the medical decision making. Alejandro Carranza MD Discharge Plan Disposition Patient Disposition: Admitted Condition: Good Chief Complaint: Syncope Prescriptions Prescriptions: No Action levothyroxine 88 mcg tablet 88 mcg PO DAILY hydrocodone-acetaminophen 5-325 mg tablet 1 tab PO Farxiga 10 mg tablet 10 mg PO DAILY lisinopril-hydrochlorothiazide 20-25 mg tablet 1 tab PO DAILY gabapentin 400 mg capsule 400 mg PO TID (DME) pen needle, diabetic [BD Ultra-Fine Mini Pen Needle] 31 gauge x 3/16 needle See Rx Instructions .ROUTE .MEDSUPPLY Qty: 50 Rx Instructions: As directed febuxostat [Uloric] 40 mg tablet 40 mg PO DAILY insulin lispro [Humalog KwikPen Insulin] 100 unit/mL insulin pen 0 - 14 unit SQ TIDWMEAL Qty: 10 10RF Rx Instructions: Per home sliding scale If blood sugar 151-200 take 4 units short acting insulin If blood sugar 200-250 take 8 units short acting insulin If blood sugar 251-300 take 12 units short acting insulin If blood sugar 301-350 take 14 units short acting insulin If blood sugar greater than 350 take 14 units insulin and call physician for further instructions. insulin glargine [Lantus Solostar U-100 Insulin] 100 unit/mL (3 mL) insulin pen 30 unit SQ BID Qty: 10 10RF cefdinir 300 mg capsule 300 mg PO BID 7 Days Qty: 14 0RF clonazepam 1 MG tablet 1 mg PO BIDP PRN (Reason: Anxiety) spironolactone 50 MG tablet 50 mg PO DAILY Clinical Impressions Clinical Impression: Syncope and collapse, Bradycardia Instructions Patient Instructions: DI for Syncope in Adults (Fainting), DI for Syncope in Children (Fainting) Discharge ED Provider: Alejandro Carranza General Adult HPI <FADI Coon - Last Filed: 01/05/24 21:38> General Chief complaint: Syncope Stated complaint: syncope Time Seen by Provider: 01/05/24 19:16 Mode of Arrival: EMS Source of Information: Patient and EMS Limitations: No Limitations Description of Symptoms (Recalled from ER Triage Doc. by RN): EMS reports the pt was at [facility] when she became dizzy and had a syncopal episode. pts son caught her so she did not hit the floor. pt reports she has had these episodes Friday, Friday and Friday as well. EMS reports her FS was 249 when they arrived. pt is an insulin dependent diabetic but states she does not take her insulin. pt reports having some R rib pain from a fall two days ago. History of Present Illness HPI narrative: Patient presents for syncopal episode. Patient was at a local restaurant when she had a sudden syncopal episode. Patient is an insulin-dependent diabetic and reports not taking her sugar like she showed however her sugar was over 200 at EMS arrival however. It was a witnessed syncopal event and she has had 1 every day since Friday. Patient has no heralding event and cannot explain why she is having passing out episodes. Patient reports that after when she hurt her right side of her chest but did not strike her head and has no headache has no chest pain fever chills hemoptysis hematochezia melena visual acuity changes Related Data Home Medications Medication Instructions Recorded Confirmed clonazepam 1 mg tablet 1 mg PO BIDP PRN Anxiety 03/17/20 10/14/23 spironolactone 50 mg tablet 50 mg PO DAILY fluid retention 03/17/20 10/14/23 gabapentin 400 mg capsule 400 mg PO TID Neuropathy 09/14/20 10/14/23 lisinopril 20 1 tab PO DAILY High blood pressure 09/14/20 10/14/23 mg-hydrochlorothiazide 25 mg tablet levothyroxine 88 mcg tablet 88 mcg PO DAILY hypothyroidism 10/15/21 10/14/23 pen needle, diabetic 31 gauge x #50 ea 11/13/21 10/14/2309/12 (BD Ultra-Fine Mini Pen Needle) febuxostat 40 mg tablet (Uloric) 40 mg PO DAILY gout 12/13/22 10/14/23 dapagliflozin propanediol 10 mg 10 mg PO DAILY 03/13/23 10/14/23 tablet (Farxiga) hydrocodone 5 mg-acetaminophen 325 1 tab PO 03/13/23 10/14/23 mg tablet Previous Rx's Medication Instructions Recorded insulin glargine 100 unit/mL (3 30 unit (0.3 mL) SQ BID Diabetes 12/14/22 mL) subcutaneous pen (Lantus #10 mL Solostar U-100 Insulin) insulin lispro 100 unit/mL 0 - 14 unit (0 - 0.14 mL) SQ 12/14/22 subcutaneous pen (Humalog KwikPen TIDWMEAL Diabetes #10 mL (U-100) Insulin) cefdinir 300 mg capsule 300 mg PO BID 7 days #14 caps 11/01/23 Allergies Allergy/AdvReac Type Severity Reaction Status Date / Time moxifloxacin Allergy Severe S-ANAPHYLAX Verified 10/14/23 14:54 IS Sulfa (Sulfonamide Allergy Mild NA-NAUSEA/V Verified 10/14/23 14:54 Antibiotics) OMITING PFSH <FADI Coon - Last Filed: 01/05/24 21:38> PFSH Disclaimer: The information contained in this section may have been updated after the patient was seen, as this information can be updated by other users. Medical History CLL (chronic lymphocytic leukemia) History of hypertension Diabetes mellitus Surgical History H/O lithotripsy History of cholecystectomy Social History Smoking Status: Never smoker alcohol intake: never substance use type: denies use current occupational status: unemployed Travel in the last 8 weeks: None household members: none housing: house caffeine: Yes <FADI Coon - Last Filed: 01/05/24 21:38> ROS Obtained: Yes Systems reviewed as appropriate & no additional complaints except as documented Physical Exam <FADI Coon - Last Filed: 01/05/24 21:38> General General appearance: alert and in no apparent distress Head Head exam: atraumatic and normal inspection Eye Eye exam: Present normal appearance, PERRL and EOMI Neck Neck exam: Present normal inspection, full ROM and other (No carotid bruits); Absent lymphadenopathy Chest Chest inspection: Present normal inspection, symmetric chest wall rise and tenderness (Right chest wall) Respiratory Respiratory exam: Present normal lung sounds bilaterally; Absent respiratory distress, wheezes, stridor or accessory muscle use Cardiovascular Cardiovascular exam: Present normal rhythm, bradycardia, normal heart sounds, +S1 and +S2 Abdominal Exam Abdominal exam: Present soft and normal bowel sounds; Absent tenderness Extremities Exam Extremities exam: Present normal inspection and full ROM; Absent tenderness Back Exam Back exam: Present normal inspection and full ROM; Absent tenderness Neurological Exam Neurological exam: Present alert, oriented X3, CN II-XII intact, normal gait and reflexes normal; Absent motor sensory deficit Psychiatric Psychiatric exam: Present normal affect and normal mood Skin Skin exam: Present warm, dry and normal color Medical Decision Making <FADI Coon - Last Filed: 01/05/24 21:38> Medical Records Medical records reviewed: Yes I reviewed the patient's medical records. Xu Inquiry Pt receiving controlled substance: No Vital Signs: 01/05/24 19:12 Temperature 98.2 F Temperature Source Oral Pulse Rate [Left] 60 Respiratory Rate 16 Blood Pressure [Right Arm] 170/66 H Blood Pressure Mean [Right Arm] 100 Blood Pressure Source [Right Arm] Automatic Cuff Blood Pressure Position [Right Arm] Sitting 02 Sat by Pulse Oximetry 96 Lab Data Lab results reviewed: Yes I reviewed the patient's lab results. Lab Results 01/05/24 19:20: WBC 15.1 H, RBC 3.89 L, Hgb 11.7 L, Hct 36.0 L, MCV 92.5, MCH 30.1, MCHC 32.5, RDW 14.9, Plt Count 235, MPV 8.1, Neut % (Auto) 27.4 L, Lymph % (Auto) 67.7 H, [place] % (Auto) 2.2, Eos % (Auto) 2.0, Baso % (Auto) 0.7, Neut # (Auto) 4.1, Lymph # (Auto) 10.2 H, [place] # (Auto) 0.3, Eos # (Auto) 0.3, Baso # (Auto) 0.1, Total Counted 100, Neutrophils % (Manual) 31 L, Lymphocytes % (Manual) 66 H, Monocytes % (Manual) 1 L, Eosinophils % (Manual) 2, Platelet Estimate Normal, RBC Morphology Normal, Sodium 135 L, Potassium 5.1, Chloride 104, Carbon Dioxide 23, Anion Gap 13.1, BUN 59 H, Creatinine 2.10 H, Estimated Creat Clear 27, Estimated GFR 23 L, Est GFR ( Amer) 28 L, Glucose 315 H, Calcium 9.3, Magnesium 2.3, Total Bilirubin 0.4, AST 19, ALT 16, Alkaline Phosphatase 81, Troponin I < 0.01, Total Protein 6.7, Albumin 3.8, Globulin 2.9, Albumin/Globulin Ratio 1.3, TSH 1.32, Thyroxine (T4) 6.4 01/05/24 20:38: Urine Color Yellow, Urine Appearance Clear, Urine pH 6.0, Ur Specific Sheldon 1.015, Urine Protein 2+, Urine Glucose (UA) 3+, Urine Ketones Negative, Urine Blood Trace-i, Urine Nitrate Negative, Urine Bilirubin Negative, Urine Urobilinogen 0.2, Ur Leukocyte Esterase Negative, Urine RBC 3-5, Urine WBC Occasional, Ur Squamous Epith Cells Occasional, Urine Bacteria Trace 01/05/24 19:20 01/05/24 19:20 Orders (Tests/Meds): ORDERS Category Date Time Status CT chest wo con Stat Cat Scan 01/05/24 20:[address] head/brain wo con Stat Cat Scan 01/05/24 20:10 Completed CXR --portable [XR chest portable] Stat Exams 01/05/24 19:31 Completed Complete Blood Count Auto Diff Stat Lab 01/05/24 19:20 Completed Comprehensive Metabolic Panel Stat Lab 01/05/24 19:20 Completed MG [Magnesium] Stat Lab 01/05/24 19:20 Completed T4 (Thyroxine) Stat Lab 01/05/24 19:20 Completed Thyroid Stimulating Hormone Stat Lab 01/05/24 19:20 Completed Troponin I Q3H Lab 01/05/24 22:30 Ordered Troponin I Q3H Lab 01/06/24 01:30 Ordered Troponin I Stat Lab 01/05/24 19:20 Completed Urinalysis and Microscopic Stat Lab 01/05/24 20:38 Completed Medical Decision Narrative: In summary patient is a 73-year-old female who presents to the emergency department for evaluation of syncope. Patient is normotensive bradycardic upon arrival, afebrile. Physical exam is remarkable for right chest wall tenderness without any bony deformity noted or ecchymosis noted. Glascow coma score is 15 and she has a normal neurologic exam with no focal deficits. Patient noted to be bradycardic on the bedside monitor.. Differential diagnosis includes vasovagal syncope versus hypoglycemia versus arrhythmia versus ACS versus sick sinus syndrome etc. Initial workup will be conducted with hematologic labs twelve-lead EKG CT scan head and chest. Initial interventions include crystalloid bolus Toradol Tylenol. Initial workup reviewed by me and her hematologic labs reveal chronic kidney disease with no changes from her baseline with the remainder of her hematologic labs being nonactionable and my informal interpretation of her CT scan of her head and chest shows no acute processes. Given her findings of unheralded syncope I had interactive discussion with hospital medicine who is agreed for admission for further evaluation and care. <Alejandro Carranza MD - Last Filed: 01/05/24 19:29> Vital Signs: 01/05/24 19:12 Temperature 98.2 F Temperature Source Oral Pulse Rate [Left] 60 Respiratory Rate 16 Blood Pressure [Right Arm] 170/66 H Blood Pressure Mean [Right Arm] 100 Blood Pressure Source [Right Arm] Automatic Cuff Blood Pressure Position [Right Arm] Sitting 02 Sat by Pulse Oximetry 96 Lab Data Lab Results 01/05/24 19:20: WBC 15.1 H, RBC 3.89 L, Hgb 11.7 L, Hct 36.0 L, MCV 92.5, MCH 30.1, MCHC 32.5, RDW 14.9, Plt Count 235, MPV 8.1, Neut % (Auto) 27.4 L, Lymph % (Auto) 67.7 H, [place] % (Auto) 2.2, Eos % (Auto) 2.0, Baso % (Auto) 0.7, Neut # (Auto) 4.1, Lymph # (Auto) 10.2 H, [place] # (Auto) 0.3, Eos # (Auto) 0.3, Baso # (Auto) 0.1, Total Counted 100, Neutrophils % (Manual) 31 L, Lymphocytes % (Manual) 66 H, Monocytes % (Manual) 1 L, Eosinophils % (Manual) 2, Platelet Estimate Normal, RBC Morphology Normal, Sodium 135 L, Potassium 5.1, Chloride 104, Carbon Dioxide 23, Anion Gap 13.1, BUN 59 H, Creatinine 2.10 H, Estimated Creat Clear 27, Estimated GFR 23 L, Est GFR ( Amer) 28 L, Glucose 315 H, Calcium 9.3, Magnesium 2.3, Total Bilirubin 0.4, AST 19, ALT 16, Alkaline Phosphatase 81, Troponin I < 0.01, Total Protein 6.7, Albumin 3.8, Globulin 2.9, Albumin/Globulin Ratio 1.3, TSH 1.32, Thyroxine (T4) 6.4 01/05/24 20:38: Urine Color Yellow, Urine Appearance Clear, Urine pH 6.0, Ur Specific Sheldon 1.015, Urine Protein 2+, Urine Glucose (UA) 3+, Urine Ketones Negative, Urine Blood Trace-i, Urine Nitrate Negative, Urine Bilirubin Negative, Urine Urobilinogen 0.2, Ur Leukocyte Esterase Negative, Urine RBC 3-5, Urine WBC Occasional, Ur Squamous Epith Cells Occasional, Urine Bacteria Trace Orders (Tests/Meds): ORDERS Category Date Time Status CT chest wo con Stat Cat Scan 01/05/24 20:[address] head/brain wo con Stat Cat Scan 01/05/24 20:10 Completed CXR --portable [XR chest portable] Stat Exams 01/05/24 19:31 Completed Complete Blood Count Auto Diff Stat Lab 01/05/24 19:20 Completed Comprehensive Metabolic Panel Stat Lab 01/05/24 19:20 Completed MG [Magnesium] Stat Lab 01/05/24 19:20 Completed T4 (Thyroxine) Stat Lab 01/05/24 19:20 Completed Thyroid Stimulating Hormone Stat Lab 01/05/24 19:20 Completed Troponin I Q3H Lab 01/05/24 22:30 Ordered Troponin I Q3H Lab 01/06/24 01:30 Ordered Troponin I Stat Lab 01/05/24 19:20 Completed Urinalysis and Microscopic Stat Lab 01/05/24 20:38 Completed ECG Data Tracing #1: Independently interpreted by me rate is 57, rhythm is regular, sinus bradycardia, no ST elevation in anatomical contiguous leads, QTc 426, no high degree AV block's. Critical Care <FADI Coon - Last Filed: 01/05/24 21:38> Critical Care Time Critical Care Time: No
--- NOTE | 2024-01-05 19:31 | XR_ITS ---
PROCEDURE INFORMATION: Exam: XR Chest Exam date and time: 01/05/2024 7:29 PM Age: 73 years old Clinical indication: Other: Syncope; Additional info: Recurrent syncope TECHNIQUE: Imaging protocol: Radiologic exam of the chest. Views: 1 view. COMPARISON: CR XR CHEST PORTABLE 11/01/2023 1:30 PM FINDINGS: Lungs: Mild bibasilar atelectasis. No consolidation. Pleural spaces: Normal. No pleural effusion. No pneumothorax. Heart/Mediastinum: Normal. No cardiomegaly. Vasculature: Atherosclerotic thoracic aorta. Bones/joints: Osteopenia. IMPRESSION: No acute findings.
[2024-01-05 19:42] LABS: Basophils # 0.1 K/mm3 (0-0.2); Basophils % 0.7 % (0.1-2.0); Eosinophils # 0.3 K/mm3 (0.0-0.4); Hemoglobin 11.7 g/dL (12.2-16.2); Lymphocytes # 10.2 K/mm3 (0.7-4.5); Lymphocytes % 67.7 % (10-50); Mean Corpuscular HGB Conc 32.5 g/dL (31.8-35.4); Mean Corpuscular Hemoglobin 30.1 pg (27.0-31.2); Mean Corpuscular Volume 92.5 fl (81-99); Mean Platelet Volume 8.1 fl (7.4-10.4); Monocytes # 0.3 K/mm3 (0.1-1.0); Monocytes % 2.2 % (1.7-9.3); Neutrophils # 4.1 K/mm3 (1.8-7.8); Neutrophils % 27.4 % (37.0-80.0); Platelet Count 235 K/mm3 (142-424); Red Blood Count 3.89 M/mm3 (4.20-5.40); Red Cell Distribution Width 14.9 % (11.5-17.5); White Blood Count 15.1 K/mm3 (4.8-10.8)
[2024-01-05 19:43] LABS: MANUAL DIFFERENTIAL MANUAL DIFFERENTIAL (MANUAL DIFF)
[2024-01-05 19:51] LABS: Magnesium 2.3 mg/dl (1.6-2.3)
[2024-01-05 19:52] LABS: Alanine Aminotransferase 16 U/L (12-78); Albumin Level 3.8 g/dl (3.5-5.0); Albumin/Globulin Ratio 1.3 (1.1-1.8); Alkaline Phosphatase 81 U/L (38-126); Anion Gap 13.1 mEq/L (5-15); Aspartate Amino Transferase 19 U/L (14-36); Bilirubin,Total 0.4 mg/dl (0.2-1.3); Blood Urea Nitrogen 59 mg/dl (7-17); Calcium 9.3 mg/dl (8.4-10.2); Carbon Dioxide 23 mmol/L (22.0-30.0); Chloride 104 mmol/L (98-107); Creatinine Clearance Estimated 27 mL/min (50-200); Estimated Glomerular Filt Rate 23 ml/min (>60); GFR (African American) 28 ML/MIN (>60); Globulin 2.9 g/dL (1.3-3.2); Glucose 315 mg/dl (74-100); Potassium 5.1 mmoL/L (3.5-5.1); Sodium 135 mmol/L (136-145); Total Protein,Serum 6.7 g/dl (6.3-8.2)
[2024-01-05 19:59] LABS: Eosinophils % 2 % (0-3); Lymphocytes % 66 % (10-50); Monocytes % 1 % (2-9); Neutrophils % 31 % (42-76); Platelet Estimate Normal; RBC Morphology Normal; Total Cells Counted 100
[2024-01-05 20:09] LABS: Troponin I < 0.01 ng/ml (0.00-0.034)
[2024-01-05 20:10] LABS: T4 (Thyroxine) 6.4 ug/dl (5.53-11.0)
--- NOTE | 2024-01-05 20:10 | CT_ITS ---
PROCEDURE INFORMATION: Exam: CT Head Without Contrast Exam date and time: 01/05/2024 8:20 PM Age: 73 years old Clinical indication: Syncope and collapse TECHNIQUE: Imaging protocol: Computed tomography of the head without contrast. Radiation optimization: All CT scans at this facility use at least one of these dose optimization techniques: automated exposure control; mA and/or kV adjustment per patient size (includes targeted exams where dose is matched to clinical indication); or iterative reconstruction. COMPARISON: CT HEAD/BRAIN WO CON 11/01/2023 3:08 PM FINDINGS: Brain: Mild supratentorial white matter hypodensities are likely the sequela of chronic small vessel ischemic disease. Mild atrophy. No hemorrhage, edema, or mass effect. Cerebral ventricles: No ventriculomegaly. Paranasal sinuses: Visualized sinuses are unremarkable. No fluid levels. Mastoid air cells: Visualized mastoid air cells are well aerated. Bones: Unremarkable. No acute fracture. Soft tissues: Unremarkable. IMPRESSION: No acute intracranial findings.
--- NOTE | 2024-01-05 20:10 | CT_ITS ---
PROCEDURE INFORMATION: Exam: CT Chest Without Contrast; Diagnostic Exam date and time: 01/05/2024 8:22 PM Age: 73 years old Clinical indication: Other: Syncope; Additional info: Syncope, chest wall pain on the right TECHNIQUE: Imaging protocol: Diagnostic computed tomography of the chest without contrast. Radiation optimization: All CT scans at this facility use at least one of these dose optimization techniques: automated exposure control; mA and/or kV adjustment per patient size (includes targeted exams where dose is matched to clinical indication); or iterative reconstruction. COMPARISON: CT CHEST WO CON 01/05/2024 8:22 PM FINDINGS: Lungs: Dependent bilateral lung base opacities favor atelectasis. Pleural spaces: Unremarkable. No pneumothorax. No pleural effusion. Heart: Unremarkable. No cardiomegaly. No pericardial effusion. Coronary arteries: Moderate three-vessel calcific atherosclerotic disease of the coronary arteries. Lymph nodes: Unremarkable. No enlarged lymph nodes. Vasculature: There is moderate calcific atherosclerotic disease of the thoracic aorta without aneurysmal dilatation. Liver: Indeterminate lesion of the right hepatic lobe measures 18 mm in diameter unchanged from 2022. Gallbladder and biliary ducts: There are surgical clips within the gallbladder fossa. Bones/joints: Favored bone island versus sclerosis osseous hemangioma of T4 measuring 13 mm in diameter. Soft tissues: Unremarkable. IMPRESSION: No CT findings that explain patient's symptoms.
--- NOTE | 2024-01-05 20:16 | PC.NURSE ---
Pt to CT at this time
[2024-01-05 20:23] LABS: Thyroid Stimulating Hormone 1.32 uIU/mL (0.465-4.68)
--- NOTE | 2024-01-05 20:24 | PC.NURSE ---
pt is back from CT
[2024-01-05 20:40] LABS: Microscopic, Urine URINE MICROSCOPIC (MICROSCOPIC)
[2024-01-05 20:52] LABS: Appearance,Urine CLEAR (Clear); Bilirubin,Urine Negative (Negative); Blood, Urine TRACE-I (Negative); Color,Urine YELLOW (Yellow); Glucose,Urine (UA) 3+ (Negative); Ketones,Urine Negative (Negative); Leukocyte Esterase,Urine Negative (Negative); Nitrate,Urine Negative (Negative); Protein,Urine 2+ (Negative); Specific Gravity, Urine 1.015 (1.005-1.030); Urobilinogen,Urine 0.2 EU/dl (0.2)
[2024-01-05 21:07] LABS: Bacteria,Urine Trace /lpf; Squamous Epithelial Cell,Urine Occasional #/hpf (0-5); WBC,Urine Occasional #/hpf (0-3)
--- NOTE | 2024-01-05 22:23 | PC.NURSE ---
report given to ELIZABETH Bertrand on second floor at this time.
--- NOTE | 2024-01-05 22:39 | PC.NURSE ---
Patient arrived to floor via wheelchair from ED at 22:27.
[2024-01-05 22:48] LABS: Troponin I < 0.01 ng/ml (0.00-0.034)
[2024-01-06] VITALS (7 sets, daily range): BP systolic 136–159; BP diastolic 62–79; PULSE 50–62; RESP 16–18; TEMP 36.4–37; O2SAT 97–99; BMI 26.0
[2024-01-06 01:50] LABS: Troponin I < 0.01 ng/ml (0.00-0.034)
[2024-01-06 06:18] LABS: POC Glucose,Bedside 270 (70-110)
--- NOTE | 2024-01-06 06:39 | PC.NURSE ---
new admit this shift, pt. A&OX4, ambulates with standby assistance, no episodes of syncope, no complaints of pain, pt. bradycardic with HR in the 50s, FSBS this am 270, MD Antonio Wiggins aware, orders to be put in.
--- NOTE | 2024-01-06 06:49 | CA_ITS ---
APPROVED REPORT EXAM: Comprehensive 2D, Doppler, and color-flow Echocardiogram Clerical Clerk: Eunice Alejandre RT(R) Ht: 5 ft 6 in Wt: 166lbs BSA: 1.85 BP: 136/66 mmHg Indications: syncope, HTN, DM, MVP 2D Dimensions Left Atrium 3.59 cm F: 2.7 - 3.8 LVEF (Garcia's) 59.70 % F: 54 - 74 LVOT 1.86 cm (M/F) 1.5-2.5 LV Volume 72.40 mL F: 46 - 106 LV Volume Index 39.1 mL/m2 F: 29 - 61 LA Volume 34.30 mL LA Volume Index 18.54 mL/m2 (M/F) 16-34 EF AP4 58.20 % EF AP2 60.8 % EF BP 59.7 % GL Strain -19.9 % M-Mode Dimensions RVDd 2.40 cm (0.9-2.6) LVDd 4.58 cm (3.5-5.7) Ao Diam 2.74 cm (2.0-3.7) LVDs 3.52 cm (3.5-5.7) IVSd 0.98 cm (0.6-1.1) PWd 0.98 cm (0.6-1.1) EF (Teich) 46.40% FS 23.10% EDV (Teich) 96.30 mL ESV (Teich) 51.60 mL LV Diastology E Decel Time 289 (160-240 msec) E/A Ratio 0.6 MED E' 5.3 (>= 7 cm/sec) E'/MED E' Ratio 13.85 (<= 14) LAT E' 5.6 (>= 10 cm/sec) E/LAT E' Ratio 13.11 (<= 14) Aortic Valve LVOT Max 121.0 (70-110 cm/s) CHAGO Index 1.27 cm2/m2 LVOT VTI 30.32 cm AoV Peak Dominick. 145.0 (50-130 cm/s) AO Mean GR. 4.10 (<5 mmHg) AO VTI 35.1 (18-25 cm) CHAGO (VTI) 2.35 (2.5-4.5 cm2) Mitral Valve MV E Max Dominick. 73.0 (40-130 cm/s) MV A Velocity 123.0 (40-130 cm/s) E/A Ratio 0.59 MV Decel. Time 289 (160-240 ms) Left Ventricle The left ventricle is normal size. The left ventricular systolic function is normal. The left ventricular ejection fraction is within the normal range. There is increased LV wall thickness. There is normal LV segmental wall motion. Transmitral Doppler flow pattern suggests impaired LV relaxation. LVEF is 60%. Right Ventricle Right ventricle is mildly dilated. The right ventricular systolic function is normal. Atria Left atrium is mildly dilated. The right atrium size is normal. There is no Doppler evidence of interatrial shunt. Aortic Valve The aortic valve is mildly thickened. There is no aortic valvular stenosis. Trace aortic regurgitation. Mitral Valve There is mild prolapse of the posterior mitral valve leaflet. No evidence of mitral annular disjunction. No evidence of mitral valve stenosis. Mild mitral regurgitation. Tricuspid Valve The tricuspid valve leaflets are thin and pliable. Trace tricuspid regurgitation. There is insufficient TR jet to estimate RVSP. Pulmonic Valve The pulmonary valve is normal in structure. Trace pulmonic regurgitation. Great Vessels The aortic root is normal in size. The ascending aorta is not well-visualized. IVC is normal in size and collapses >50% with inspiration. Pericardium There is no pericardial effusion. Other Information Study Quality: Fair Conclusion Normal biventricular systolic function. Mild RV dilation. Mild LA dilation. Mild prolapse of the posterior MV leaflet. Mild MR. No evidence of mitral annular disjunction. Electronically signed by : Nini Malin MD 01/09/2024 20:08:58
--- NOTE | 2024-01-06 06:53 | EXP.HP ---
History of Present Illness *Admission Date: 01/06/24 *Reason for visit:: Syncope *History of present illness: 73-year-old female presents to the emergency department after an episode of syncope. She had gotten out of her car was walking into [employer] [place] when she lost consciousness fell down. Unknown duration of unconsciousness. Had prodromal symptoms preceding syncope which were lightheadedness dizziness 10 seconds prior to syncope. No confusion upon awakening. No urinary or bowel incontinence upon wakening. She has had prior episodes of syncope within the last 6 months. All episodes were similar. In emergency department hyperglycemic and given insulin. EKG sinus claire. currently asymptomatic. Discussed ambulating on a treadmill to assess heart rate and patient would be unable to do so due to functional capacity and walker dependence [facility] Disclaimer: The information contained in this section may have been updated after the patient was seen, as this information can be updated by other users. Medical History CLL (chronic lymphocytic leukemia) History of hypertension Diabetes mellitus Surgical History H/O lithotripsy History of cholecystectomy Family History (Updated 01/05/24 @ 22:51 by Adry Ireland RN) Other Cancer Congestive heart failure (CHF) Heart disease Lymphoma Social History (Updated 01/05/24 @ 22:48 by Adry Ireland RN) Smoking Status: Never smoker alcohol intake: never substance use type: denies use current occupational status: unemployed Travel in the last 8 weeks: None household members: none housing: house caffeine: Yes Meds Home Medications and Allergies Home Medications Medication Instructions Recorded Confirmed Type clonazepam 1 mg tablet 1 mg PO BIDP PRN Anxiety 03/17/20 01/05/24 History spironolactone 50 mg tablet 50 mg PO DAILY fluid retention 03/17/20 01/05/24 History gabapentin 400 mg capsule 400 mg PO TID Neuropathy 09/14/20 01/05/24 History lisinopril 20 1 tab PO DAILY High blood pressure 09/14/20 01/05/24 History mg-hydrochlorothiazide 25 mg tablet levothyroxine 88 mcg tablet 88 mcg PO DAILY hypothyroidism 10/15/21 01/05/24 History pen needle, diabetic 31 gauge x #50 ea 11/13/21 10/14/23 History 09/12 (BD Ultra-Fine Mini Pen Needle) insulin glargine 100 unit/mL (3 30 unit (0.3 mL) SQ BID Diabetes 12/14/22 01/05/24 Rx mL) subcutaneous pen (Lantus #10 mL Solostar U-100 Insulin) insulin lispro 100 unit/mL 0 - 14 unit (0 - 0.14 mL) SQ 12/14/22 01/05/24 Rx subcutaneous pen (Humalog KwikPen TIDWMEAL Diabetes #10 mL (U-100) Insulin) dapagliflozin propanediol 10 mg 10 mg PO DAILY 03/13/23 01/05/24 History tablet (Farxiga) hydrocodone 5 mg-acetaminophen 325 1 tab PO DAILY PRN Pain 03/13/23 01/05/24 History mg tablet New Prescriptions to Start Prescriptions: Allergies Allergy/AdvReac Type Severity Reaction Status Date / Time moxifloxacin Allergy Severe S-ANAPHYLAX Verified 10/14/23 14:54 IS Sulfa (Sulfonamide Allergy Mild NA-NAUSEA/V Verified 10/14/23 14:54 Antibiotics) OMITING Exam Data for Last 24 hours Vital signs and Labs for Last 24 Hours: Temp Pulse Resp BP Pulse Ox O2 Del Method 97.5 F L 50 L 16 136/66 98 Room Air 01/06/24 00:00 01/06/24 04:00 01/06/24 00:00 01/06/24 00:00 01/06/24 00:00 01/06/24 06:38 Laboratory Results - last 24 hr 01/05/24 19:20: WBC 15.1 H, RBC 3.89 L, Hgb 11.7 L, Hct 36.0 L, MCV 92.5, MCH 30.1, MCHC 32.5, RDW 14.9, Plt Count 235, MPV 8.1, Neut % (Auto) 27.4 L, Lymph % (Auto) 67.7 H, [place] % (Auto) 2.2, Eos % (Auto) 2.0, Baso % (Auto) 0.7, Neut # (Auto) 4.1, Lymph # (Auto) 10.2 H, [place] # (Auto) 0.3, Eos # (Auto) 0.3, Baso # (Auto) 0.1, Total Counted 100, Neutrophils % (Manual) 31 L, Lymphocytes % (Manual) 66 H, Monocytes % (Manual) 1 L, Eosinophils % (Manual) 2, Platelet Estimate Normal, RBC Morphology Normal, Sodium 135 L, Potassium 5.1, Chloride 104, Carbon Dioxide 23, Anion Gap 13.1, BUN 59 H, Creatinine 2.10 H, Estimated Creat Clear 27, Estimated GFR 23 L, Est GFR ( Amer) 28 L, Glucose 315 H, Calcium 9.3, Magnesium 2.3, Total Bilirubin 0.4, AST 19, ALT 16, Alkaline Phosphatase 81, Troponin I < 0.01, Total Protein 6.7, Albumin 3.8, Globulin 2.9, Albumin/Globulin Ratio 1.3, TSH 1.32, Thyroxine (T4) 6.4 01/05/24 20:38: Urine Color Yellow, Urine Appearance Clear, Urine pH 6.0, Ur Specific [place] 1.015, Urine Protein 2+, Urine Glucose (UA) 3+, Urine Ketones Negative, Urine Blood Trace-i, Urine Nitrate Negative, Urine Bilirubin Negative, Urine Urobilinogen 0.2, Ur Leukocyte Esterase Negative, Urine RBC 3-5, Urine WBC Occasional, Ur Squamous Epith Cells Occasional, Urine Bacteria Trace 01/05/24 22:17: Troponin I < 0.01 01/06/24 01:25: Troponin I < 0.01 01/06/24 06:11: POC Glucose 270 H I & O for Last 24 hours: Intake & Output 01/03/24 01/04/24 01/05/24 01/06/24 23:59 23:59 23:59 23:59 Intake Total 240 / 240 Balance 240 / 240 Weight 72.575 kg 75.381 kg *Routine HEENT Exam Head: Present normocephalic Eye: Present EOMI ENT: Present mucous membranes moist *Routine Respiratory Exam Respiratory: Present CTA bilaterally *Routine Cardiovascular Exam Cardiovascular: Present RRR, Normal S1 and Normal S2 *Routine Abdominal Exam Abdominal: Present soft *Routine Rectal Exam Rectal:: deferred *Routine Genitalia Exam Genitalia:: deferred Assessment and Plan *Assessment and plan (1) Bradycardia: Status: Acute Category: Medical Code(s): R00.1 - Bradycardia, unspecified (2) Syncope: Status: Acute Qualifiers: Encounter type: subsequent encounter Category: Medical Code(s): R55 - Syncope and collapse Plan Syncope -Bradycardia versus vasovagal -Telemetry -Echo -Consult cardiology for sinus bradycardia, will need evaluation of chronotropic competence Consult PT Anemia -Monitor -Iron studies if echo shows LV dysfunction Diabetes Sliding scale Lantus home dose Hypertension Resume lisinopril hydrochlorothiazide Resume spironolactone
--- NOTE | 2024-01-06 08:10 | HMH.PHAINT1 ---
Pharmacy Intervention Comments: home medication list verified using list from outpatient pharmacy and pt interview
[2024-01-06] MEDS: DAPAGLIFLOZIN PROPANEDIOL 10 MG TABLET PO (08:50)
[2024-01-06] MEDS: LISINOPRIL 20MG TABLET 20 MG PO (08:50)
[2024-01-06] MEDS: GABAPENTIN 400MG CAPSULE 400 MG PO ×2 (08:50→13:21)
[2024-01-06] MEDS: ENOXAPARIN 30MG/0.3ML SYRINGE 30 MG SQ (08:50)
[2024-01-06] MEDS: LEVOTHYROXINE 88MCG (0.088MG) TAB 88 MCG PO (08:50)
[2024-01-06] MEDS: hydroCHLOROthiazide 25MG TABLET 25 MG PO (08:50)
[2024-01-06] MEDS: SPIRONOLACTONE 25MG TABLET 50 MG PO (08:51)
[2024-01-06] MEDS: INSULIN GLARGINE 100 UNITS/ML 3ML FLEXPEN 30 UNIT SQ (08:51)
--- NOTE | 2024-01-06 09:56 | PC.NURSE ---
Orthostatic BP's done. Pt tolerated well. No c/o dizziness, lightheadedness, or spots in eyes with change in position
[2024-01-06 11:17] LABS: POC Glucose,Bedside 326 (70-110)
[2024-01-06] MEDS: humaLOG 100 UNITS/ML 10ML VIAL (SSI) SQ (11:23)
--- NOTE | 2024-01-06 12:07 | P.CONCA_ITS ---
History of Present Illness History of Present Illness Consult date: 01/06/24 Requesting physician: Gerardo Wiggins Chief complaint: syncope History of present illness: 73-year-old white female without known cardiovascular disease presented to the emergency room last night with a single episode of syncope. Patient reports she was ambulating from her car into [employer] [place]. When she arrived in the lobby she felt weak and had complete loss of consciousness for approximately 2 minutes as witnessed by her son who helped her to the chair so she did not fall. Patient states she recovered quickly back to her baseline. She denies witnessed tremors, denies loss of bladder/bowel function and tongue biting. She says she had fallen at home in her bathroom 3 days prior. She cannot state clearly whether this was due to neuropathy and weakness in her legs or dizzy symptoms. She had no loss of consciousness with those episodes. [facility] Disclaimer: The information contained in this section may have been updated after the patient was seen, as this information can be updated by other users. Medical History CLL (chronic lymphocytic leukemia) History of hypertension Diabetes mellitus Surgical History H/O lithotripsy History of cholecystectomy Family History Other Cancer Congestive heart failure (CHF) Heart disease Lymphoma Social History Smoking Status: Never smoker alcohol intake: never substance use type: denies use current occupational status: unemployed Travel in the last 8 weeks: None household members: none housing: house caffeine: Yes Review of Systems Constitutional Constitutional: Denies fatigue and Reports weakness Eyes Eyes: Denies loss of vision ENT Ears, Nose, Mouth, and Throat: Denies hearing loss and Denies vertigo *Cardiovascular Cardiovascular: Denies chest pain, Denies dyspnea and Denies syncope *Respiratory Respiratory: Denies cough and Denies dyspnea *Gastrointestinal Gastrointestinal: Denies change in stool character, Denies nausea and Denies vomiting *Musculoskeletal Musculoskeletal: Denies muscle weakness Comments: BLE weakness/neuropathy Integumentary/Breasts Skin/Breast: Denies changing lesions *Neurologic Neurologic: Denies loss of vision, Denies syncope, Denies vertigo and Reports weakness Psychiatric Comments: syncope Endocrine Endocrine: Denies fatigue Exam Data for Last 24 hours Vital signs and Labs for Last 24 Hours: Temp Pulse Resp BP Pulse Ox O2 Del Method 98.2 F 62 16 153/67 H 97 Room Air 01/06/24 08:00 01/06/24 09:54 01/06/24 08:00 01/06/24 09:54 01/06/24 08:00 01/06/24 11:00 Laboratory Results - last 24 hr 01/05/24 19:20: WBC 15.1 H, RBC 3.89 L, Hgb 11.7 L, Hct 36.0 L, MCV 92.5, MCH 30.1, MCHC 32.5, RDW 14.9, Plt Count 235, MPV 8.1, Neut % (Auto) 27.4 L, Lymph % (Auto) 67.7 H, [place] % (Auto) 2.2, Eos % (Auto) 2.0, Baso % (Auto) 0.7, Neut # (Auto) 4.1, Lymph # (Auto) 10.2 H, [place] # (Auto) 0.3, Eos # (Auto) 0.3, Baso # (Auto) 0.1, Total Counted 100, Neutrophils % (Manual) 31 L, Lymphocytes % (Manual) 66 H, Monocytes % (Manual) 1 L, Eosinophils % (Manual) 2, Platelet Estimate Normal, RBC Morphology Normal, Sodium 135 L, Potassium 5.1, Chloride 104, Carbon Dioxide 23, Anion Gap 13.1, BUN 59 H, Creatinine 2.10 H, Estimated Creat Clear 27, Estimated GFR 23 L, Est GFR ( Amer) 28 L, Glucose 315 H, Calcium 9.3, Magnesium 2.3, Total Bilirubin 0.4, AST 19, ALT 16, Alkaline Phosphatase 81, Troponin I < 0.01, Total Protein 6.7, Albumin 3.8, Globulin 2.9, Albumin/Globulin Ratio 1.3, TSH 1.32, Thyroxine (T4) 6.4 01/05/24 20:38: Urine Color Yellow, Urine Appearance Clear, Urine pH 6.0, Ur Specific [place] 1.015, Urine Protein 2+, Urine Glucose (UA) 3+, Urine Ketones Negative, Urine Blood Trace-i, Urine Nitrate Negative, Urine Bilirubin Negative, Urine Urobilinogen 0.2, Ur Leukocyte Esterase Negative, Urine RBC 3-5, Urine WBC Occasional, Ur Squamous Epith Cells Occasional, Urine Bacteria Trace 01/05/24 22:17: Troponin I < 0.01 01/06/24 01:25: Troponin I < 0.01 01/06/24 06:11: POC Glucose 270 H 01/06/24 11:06: POC Glucose 326 H* I & O for Last 24 hours: Intake & Output 01/03/24 01/04/24 01/05/24 01/06/24 23:59 23:59 23:59 23:59 Intake Total 720 / 720 Balance 720 / 720 Weight 160 lb 166 lb 3 oz Constitutional Constitutional: no acute distress and cooperative *Routine HEENT Exam Eye: Present PERRL *Routine Respiratory Exam Respiratory: Present CTA bilaterally; Absent accessory muscle use, wheezes or crackles *Routine Cardiovascular Exam Cardiovascular: Present RRR, Normal S1 and Normal S2; Absent murmur, gallop or rubs *Routine Abdominal Exam Abdominal: Present soft; Absent tenderness *Routine Extremities Exam Extremities: Present pulses intact; Absent cyanosis or edema *Routine Skin Exam Skin: Present intact; Absent erythema or wounds *Routine Neurological Exam Neurological: Present alert and oriented X3 Routine Psychiatric Exam Psychiatric: Present cooperative Meds Home Medications and Allergies Home Medications Medication Instructions Recorded Confirmed Type clonazepam 1 mg tablet 1 mg PO TIDP PRN Anxiety 03/17/20 01/06/24 History spironolactone 50 mg tablet 50 mg PO DAILY 03/17/20 01/05/24 History gabapentin 400 mg capsule 400 mg PO TID 09/14/20 01/05/24 History lisinopril 20 1 tab PO DAILY 09/14/20 01/05/24 History mg-hydrochlorothiazide 25 mg tablet levothyroxine 88 mcg tablet 88 mcg PO DAILY 10/15/21 01/05/24 History insulin glargine 100 unit/mL (3 30 unit (0.3 mL) SQ BID Diabetes 12/14/22 01/06/24 Rx mL) subcutaneous pen (Lantus #10 mL Solostar U-100 Insulin) insulin lispro 100 unit/mL 0 - 14 unit (0 - 0.14 mL) SQ 12/14/22 01/06/24 Rx subcutaneous pen (Humalog KwikPen TIDWMEAL Diabetes #10 mL (U-100) Insulin) dapagliflozin propanediol 10 mg 10 mg PO DAILY 03/13/23 01/06/24 History tablet (Farxiga) hydrocodone 5 mg-acetaminophen 325 1 tab PO TIDP PRN Moderate Pain 03/13/23 01/06/24 History mg tablet (Scale Score 5-6) cholecalciferol (vitamin D3) 1,250 50,000 unit PO WEEKLY 01/06/24 01/06/24 History mcg (50,000 unit) capsule New Prescriptions to Start Prescriptions: Allergies Allergy/AdvReac Type Severity Reaction Status Date / Time moxifloxacin Allergy Severe S-ANAPHYLAX Verified 10/14/23 14:54 IS Sulfa (Sulfonamide Allergy Mild NA-NAUSEA/V Verified 10/14/23 14:54 Antibiotics) OMITING Assessment and Plan *Assessment and plan (1) Syncope: Status: Acute Qualifiers: Encounter type: subsequent encounter Category: Medical Code(s): R55 - Syncope and collapse (2) Neuropathy: Status: Acute Category: Medical Code(s): G62.9 - Polyneuropathy, unspecified (3) Fall: Status: Acute Category: Medical Code(s): W19.XXXA - Unspecified fall, initial encounter Plan Syncope - uncertain etiology - denies sz like symptoms - EKG SB 58 here otherwise unremarkable - Orthostatic Vitals - normal/negative - ECHO (prelim) - normal EF, no wall motion changes or valve dz - negative troponin - asymptomatic here - consider meds as contributing factor - she has severe neuropathy and takes Gabapentin, Hydrocodone, and Clonazepam daily - Plan: 2 week heart monitor and f/u in our office Neuropathy - severe BLE - plans per Neurology Recurrent Falls - recommend PT and Neuro evaluation 01/05: CV stable for DC home. She needs 2 week monitor placed prior to DC and office f/u with our office in 2 weeks.
[2024-01-06] MEDS: NYSTATIN TOPICAL POWDER 30GM TP (13:21)
--- NOTE | 2024-01-06 15:10 | EXP.DC.SUM ---
General Admission date:: 01/05/24 HPI HPI HPI: 73-year-old female presents to the emergency department after an episode of syncope. She had gotten out of her car was walking into [place] when she lost consciousness fell down. Unknown duration of unconsciousness. Had prodromal symptoms preceding syncope which were lightheadedness dizziness 10 seconds prior to syncope. No confusion upon awakening. No urinary or bowel incontinence upon wakening. She has had prior episodes of syncope within the last 6 months. All episodes were similar. In emergency department hyperglycemic and given insulin. EKG sinus claire. currently asymptomatic. Discussed ambulating on a treadmill to assess heart rate and patient would be unable to do so due to functional capacity and walker dependence Hospital Course Hospital Course Hospital Course: Bradycardia, and received full neurocardiogenic workup and hospitalization. Patient had CT head/chest done showing no acute abnormalities. Patient had echocardiogram done 01/06/2024 which was within normal limits per eap consultant. Patient's heart rate stayed in the 50s at its lowest during hospitalization. Patient showed no malignant arrhythmias on telemetry monitoring during hospitalization. Patient's troponin is within normal limits during hospitalization. Patient ultimately discharged with cardiac event monitor in place, and instructions to follow-up with cardiology/neurology on outpatient basis. Exam Data for Last 24 hours Vital signs and Labs for Last 24 Hours: Temp Pulse Resp BP Pulse Ox O2 Del Method 98.6 F 61 18 143/79 H 99 Room Air 01/06/24 12:00 01/06/24 12:00 01/06/24 12:00 01/06/24 12:00 01/06/24 12:00 01/06/24 13:00 Laboratory Results - last 24 hr 01/05/24 19:20: WBC 15.1 H, RBC 3.89 L, Hgb 11.7 L, Hct 36.0 L, MCV 92.5, MCH 30.1, MCHC 32.5, RDW 14.9, Plt Count 235, MPV 8.1, Neut % (Auto) 27.4 L, Lymph % (Auto) 67.7 H, [place] % (Auto) 2.2, Eos % (Auto) 2.0, Baso % (Auto) 0.7, Neut # (Auto) 4.1, Lymph # (Auto) 10.2 H, [place] # (Auto) 0.3, Eos # (Auto) 0.3, Baso # (Auto) 0.1, Total Counted 100, Neutrophils % (Manual) 31 L, Lymphocytes % (Manual) 66 H, Monocytes % (Manual) 1 L, Eosinophils % (Manual) 2, Platelet Estimate Normal, RBC Morphology Normal, Sodium 135 L, Potassium 5.1, Chloride 104, Carbon Dioxide 23, Anion Gap 13.1, BUN 59 H, Creatinine 2.10 H, Estimated Creat Clear 27, Estimated GFR 23 L, Est GFR ( Amer) 28 L, Glucose 315 H, Calcium 9.3, Magnesium 2.3, Total Bilirubin 0.4, AST 19, ALT 16, Alkaline Phosphatase 81, Troponin I < 0.01, Total Protein 6.7, Albumin 3.8, Globulin 2.9, Albumin/Globulin Ratio 1.3, TSH 1.32, Thyroxine (T4) 6.4 01/05/24 20:38: Urine Color Yellow, Urine Appearance Clear, Urine pH 6.0, Ur Specific [place] 1.015, Urine Protein 2+, Urine Glucose (UA) 3+, Urine Ketones Negative, Urine Blood Trace-i, Urine Nitrate Negative, Urine Bilirubin Negative, Urine Urobilinogen 0.2, Ur Leukocyte Esterase Negative, Urine RBC 3-5, Urine WBC Occasional, Ur Squamous Epith Cells Occasional, Urine Bacteria Trace 01/05/24 22:17: Troponin I < 0.01 01/06/24 01:25: Troponin I < 0.01 01/06/24 06:11: POC Glucose 270 H 01/06/24 11:06: POC Glucose 326 H* I & O for Last 24 hours: Intake & Output 01/03/24 01/04/24 01/05/24 01/06/24 23:59 23:59 23:59 23:59 Intake Total 1700 / 1700 Balance 1700 / 1700 Weight 72.575 kg 75.381 kg Constitutional Constitutional: no acute distress and cooperative *Routine HEENT Exam Head: Present normocephalic Eye: Present normal accommodation ENT: Present mucous membranes moist *Routine Neck Exam Neck: Present supple and full ROM *Routine Respiratory Exam Respiratory: Present accessory muscle use and CTA bilaterally *Routine Cardiovascular Exam Cardiovascular: Present Normal S1, Normal S2 and bradycardia *Routine Abdominal Exam Abdominal: Present soft and normoactive bowel sounds *Routine Extremities Exam Extremities: Present full ROM and normal capillary refill Routine Back/Spine/Pelvis Exam Back/Spine: Present full ROM and warmth *Routine Skin Exam Skin: Present intact and dry *Routine Neurological Exam Neurological: Present alert and oriented X3 Results Data Completed and Pending Labs on day of discharge: Labs from last 24 hours 01/06/24 01/06/24 01/06/24 11:06 06:11 01:25 WBC RBC Hgb Hct MCV MCH MCHC RDW Plt Count MPV Neut % (Auto) Lymph % (Auto) [place] % (Auto) Eos % (Auto) Baso % (Auto) Neut # (Auto) Lymph # (Auto) [place] # (Auto) Eos # (Auto) Baso # (Auto) Total Counted Neutrophils % (Manual) Lymphocytes % (Manual) Monocytes % (Manual) Eosinophils % (Manual) Platelet Estimate RBC Morphology Sodium Potassium Chloride Carbon Dioxide Anion Gap BUN Creatinine Estimated Creat Clear Estimated GFR Est GFR ( Amer) Glucose POC Glucose 326 H* 270 H Calcium Magnesium Total Bilirubin AST ALT Alkaline Phosphatase Troponin I < 0.01 Total Protein Albumin Globulin Albumin/Globulin Ratio TSH Thyroxine (T4) Urine Color Urine Appearance Urine pH Ur Specific [place] Urine Protein Urine Glucose (UA) Urine Ketones Urine Blood Urine Nitrate Urine Bilirubin Urine Urobilinogen Ur Leukocyte Esterase Urine RBC Urine WBC Ur Squamous Epith Cells Urine Bacteria 01/05/24 01/05/24 01/05/24 22:17 20:38 19:20 WBC 15.1 H RBC 3.89 L Hgb 11.7 L Hct 36.0 L MCV 92.5 MCH 30.1 MCHC 32.5 RDW 14.9 Plt Count 235 MPV 8.1 Neut % (Auto) 27.4 L Lymph % (Auto) 67.7 H [place] % (Auto) 2.2 Eos % (Auto) 2.0 Baso % (Auto) 0.7 Neut # (Auto) 4.1 Lymph # (Auto) 10.2 H [place] # (Auto) 0.3 Eos # (Auto) 0.3 Baso # (Auto) 0.1 Total Counted 100 Neutrophils % (Manual) 31 L Lymphocytes % (Manual) 66 H Monocytes % (Manual) 1 L Eosinophils % (Manual) 2 Platelet Estimate Normal RBC Morphology Normal Sodium 135 L Potassium 5.1 Chloride 104 Carbon Dioxide 23 Anion Gap 13.1 BUN 59 H Creatinine 2.10 H Estimated Creat Clear 27 Estimated GFR 23 L Est GFR ( Amer) 28 L Glucose 315 H POC Glucose Calcium 9.3 Magnesium 2.3 Total Bilirubin 0.4 AST 19 ALT 16 Alkaline Phosphatase 81 Troponin I < 0.01 < 0.01 Total Protein 6.7 Albumin 3.8 Globulin 2.9 Albumin/Globulin Ratio 1.3 TSH 1.32 Thyroxine (T4) 6.4 Urine Color Yellow Urine Appearance Clear Urine pH 6.0 Ur Specific [place] 1.015 Urine Protein 2+ Urine Glucose (UA) 3+ Urine Ketones Negative Urine Blood Trace-i Urine Nitrate Negative Urine Bilirubin Negative Urine Urobilinogen 0.2 Ur Leukocyte Esterase Negative Urine RBC 3-5 Urine WBC Occasional Ur Squamous Epith Cells Occasional Urine Bacteria Trace Imaging and Cardiology TESTING: Status: image reviewed by me Additional comments: Echocardiogram 01/06/2024: Within normal limits per cardiology PROCEDURE INFORMATION: Exam: CT Head Without Contrast Exam date and time: 01/05/2024 8:20 PM Age: 73 years old Clinical indication: Syncope and collapse TECHNIQUE: Imaging protocol: Computed tomography of the head without contrast. Radiation optimization: All CT scans at this facility use at least one of these dose optimization techniques: automated exposure control; mA and/or kV adjustment per patient size (includes targeted exams where dose is matched to clinical indication); or iterative reconstruction. COMPARISON: CT HEAD/BRAIN WO CON 11/01/2023 3:08 PM FINDINGS: Brain: Mild supratentorial white matter hypodensities are likely the sequela of chronic small vessel ischemic disease. Mild atrophy. No hemorrhage, edema, or mass effect. Cerebral ventricles: No ventriculomegaly. Paranasal sinuses: Visualized sinuses are unremarkable. No fluid levels. Mastoid air cells: Visualized mastoid air cells are well aerated. Bones: Unremarkable. No acute fracture. Soft tissues: Unremarkable. IMPRESSION: No acute intracranial findings. PROCEDURE INFORMATION: Exam: CT Chest Without Contrast; Diagnostic Exam date and time: 01/05/2024 8:22 PM Age: 73 years old Clinical indication: Other: Syncope; Additional info: Syncope, chest wall pain on the right TECHNIQUE: Imaging protocol: Diagnostic computed tomography of the chest without contrast. Radiation optimization: All CT scans at this facility use at least one of these dose optimization techniques: automated exposure control; mA and/or kV adjustment per patient size (includes targeted exams where dose is matched to clinical indication); or iterative reconstruction. COMPARISON: CT CHEST WO CON 01/05/2024 8:22 PM FINDINGS: Lungs: Dependent bilateral lung base opacities favor atelectasis. Pleural spaces: Unremarkable. No pneumothorax. No pleural effusion. Heart: Unremarkable. No cardiomegaly. No pericardial effusion. Coronary arteries: Moderate three-vessel calcific atherosclerotic disease of the coronary arteries. Lymph nodes: Unremarkable. No enlarged lymph nodes. Vasculature: There is moderate calcific atherosclerotic disease of the thoracic aorta without aneurysmal dilatation. Liver: Indeterminate lesion of the right hepatic lobe measures 18 mm in diameter unchanged from 2022. Gallbladder and biliary ducts: There are surgical clips within the gallbladder fossa. Bones/joints: Favored bone island versus sclerosis osseous hemangioma of T4 measuring 13 mm in diameter. Soft tissues: Unremarkable. IMPRESSION: No CT findings that explain patient's symptoms. PROCEDURE INFORMATION: Exam: XR Chest Exam date and time: 01/05/2024 7:29 PM Age: 73 years old Clinical indication: Other: Syncope; Additional info: Recurrent syncope DS: Diagnosis Discharge Diagnosis (1) Syncope: Status: Acute Code(s): R55 - Syncope and collapse Qualifiers: Encounter type: subsequent encounter (2) Neuropathy: Status: Acute Code(s): G62.9 - Polyneuropathy, unspecified (3) Fall: Status: Acute Code(s): W19.XXXA - Unspecified fall, initial encounter Meds Home Medications and Allergies Home Medications Medication Instructions Recorded Confirmed Type clonazepam 1 mg tablet 1 mg PO TIDP PRN Anxiety 03/17/20 01/06/24 History spironolactone 50 mg tablet 50 mg PO DAILY 03/17/20 01/05/24 History gabapentin 400 mg capsule 400 mg PO TID 09/14/20 01/05/24 History lisinopril 20 1 tab PO DAILY 09/14/20 01/05/24 History mg-hydrochlorothiazide 25 mg tablet levothyroxine 88 mcg tablet 88 mcg PO DAILY 10/15/21 01/05/24 History insulin glargine 100 unit/mL (3 30 unit (0.3 mL) SQ BID Diabetes 12/14/22 01/06/24 Rx mL) subcutaneous pen (Lantus #10 mL Solostar U-100 Insulin) insulin lispro 100 unit/mL 0 - 14 unit (0 - 0.14 mL) SQ 12/14/22 01/06/24 Rx subcutaneous pen (Humalog KwikPen TIDWMEAL Diabetes #10 mL (U-100) Insulin) dapagliflozin propanediol 10 mg 10 mg PO DAILY 03/13/23 01/06/24 History tablet (Farxiga) hydrocodone 5 mg-acetaminophen 325 1 tab PO TIDP PRN Moderate Pain 03/13/23 01/06/24 History mg tablet (Scale Score 5-6) cholecalciferol (vitamin D3) 1,250 50,000 unit PO WEEKLY 01/06/24 01/06/24 History mcg (50,000 unit) capsule New Prescriptions to Start Prescriptions: Allergies Allergy/AdvReac Type Severity Reaction Status Date / Time moxifloxacin Allergy Severe S-ANAPHYLAX Verified 10/14/23 14:54 IS Sulfa (Sulfonamide Allergy Mild NA-NAUSEA/V Verified 10/14/23 14:54 Antibiotics) OMITING Discharge Plan Disposition Patient Disposition: Home, Self-Care Condition: Fair Follow up Plan Follow up with: Camila Parekh APRN [Nurse Practitioner] - 01/13/24 10:30 am John Tamayo MBBS [Referring] - 1 month (The office will call you with an appt after reviewing your referral in 5-7 business days ) Talon Wiggins MD [Staff Physician] - 01/20/24 9:30 am Prescriptions/Medication Reconciliation: Continued levothyroxine 88 mcg tablet 88 mcg PO DAILY hydrocodone-acetaminophen 5-325 mg tablet 1 tab PO TIDP PRN (Reason: Moderate Pain (Scale Score 5-6)) Farxiga 10 mg tablet 10 mg PO DAILY lisinopril-hydrochlorothiazide 20-25 mg tablet 1 tab PO DAILY gabapentin 400 mg capsule 400 mg PO TID insulin lispro [Humalog KwikPen Insulin] 100 unit/mL insulin pen 0 - 14 unit SQ TIDWMEAL Qty: 10 10RF Rx Instructions: Per home sliding scale If blood sugar 151-200 take 4 units short acting insulin If blood sugar 200-250 take 8 units short acting insulin If blood sugar 251-300 take 12 units short acting insulin If blood sugar 301-350 take 14 units short acting insulin If blood sugar greater than 350 take 14 units insulin and call physician for further instructions. insulin glargine [Lantus Solostar U-100 Insulin] 100 unit/mL (3 mL) insulin pen 30 unit SQ BID Qty: 10 10RF cholecalciferol (vitamin D3) 1,250 mcg (50,000 unit) capsule 50,000 unit PO WEEKLY clonazepam 1 MG tablet 1 mg PO TIDP PRN (Reason: Anxiety) spironolactone 50 MG tablet 50 mg PO DAILY Problem Reconciliation Problems Reviewed?: Yes Patient Discharge Instructions ACTIVITY: Continue current activity DIET: continue same diet Patient Instructions: DI for Syncope in Adults (Fainting), DI for Bradycardia Print Language: Yi Providers Primary Care Provider: Provider,Referral Admit Provider: Prasanna Diaz Attending Provider: Prasanna Diaz
--- NOTE | 2024-01-07 13:38 | CARE MANAGER ---
Called and spoke with patient regarding recent discharge. Patient stated that she is doing well and was aware of scheduled f/u appts. Patient voiced no concerns at time of call.
== END 2024-01-06 15:31 | disposition home or self-care (01) ==
LOC: ER 21:38 → 2ND 22:31
PROVIDERS: Physician Assistant; Admitting Provider Family Medicine; Emergency Provider Emergency Medicine; Visit Provider Family Medicine
DX: R00.1 Bradycardia, unspecified (principal); R55 Syncope and collapse; W19.XXXA Unspecified fall, initial encounter; C91.10 Chronic lymphocytic leukemia of B-cell type not having achieved remission; I10 Essential (primary) hypertension; E11.42 Type 2 diabetes mellitus with diabetic polyneuropathy; Z79.4 Long term (current) use of insulin; D64.9 Anemia, unspecified
CPT/HCPCS: 36415; 70450; 71045; 71250; 80053; 81001; 82962; 83735; 84436; 84443; 84484; 85007; 85025; 93005; 93225; 93227; 93306; 99285; G0378; J1650

== ENCOUNTER 2024-01-08 14:47 | Outpatient (CLI) | payer MEDICARE, SELFPAY | END 2024-01-08 23:59 | disposition home or self-care (01) | LOC: RT 14:48 | PROVIDERS: PCP Nurse Practitioner; Visit Provider Internal Medicine | DX: R55 Syncope and collapse (principal) | CPT/HCPCS: 93270 ==

== ENCOUNTER 2024-04-14 14:42 | Emergency (ER) | payer MEDICARE, SELFPAY ==
[2024-04-14] VITALS (9 sets, daily range): BP systolic 147–185; BP diastolic 63–75; PULSE 51–57; RESP 20; TEMP 36.9; O2SAT 96–100; BMI 25.2
--- NOTE | 2024-04-14 14:43 | ED_ITS ---
<Statement entered by Melinda Adamson DO - 04/14/24 23:24> I was consulted by the CHARLA, and we discussed the complexity of the problems being addressed. I approved the treatment and management plan for this patient's care in the emergency department, thus performing a substantive portion of the medical decision making. Melinda Adamson DO Discharge Plan Disposition Patient Disposition: Home, Self-Care Condition: Good Prescriptions Prescriptions: No Action levothyroxine 88 mcg tablet 88 mcg PO DAILY furosemide 20 mg tablet 20 mg PO DAILY Qty: 90 1RF hydrocodone-acetaminophen 5-325 mg tablet 1 tab PO Q8H PRN (Reason: pain) Qty: 90 0RF dapagliflozin propanediol [Farxiga] 10 mg tablet 10 mg PO DAILY cephalexin 500 mg capsule 1,000 mg PO BID Qty: 40 0RF gabapentin 400 mg capsule 400 mg PO TID lisinopril 20 mg tablet 20 mg PO DAILY Qty: 30 2RF insulin lispro [Humalog KwikPen Insulin] 100 unit/mL insulin pen 0 - 14 unit SQ TIDWMEAL Qty: 10 10RF Rx Instructions: Per home sliding scale If blood sugar 151-200 take 4 units short acting insulin If blood sugar 200-250 take 8 units short acting insulin If blood sugar 251-300 take 12 units short acting insulin If blood sugar 301-350 take 14 units short acting insulin If blood sugar greater than 350 take 14 units insulin and call physician for further instructions. insulin glargine [Lantus Solostar U-100 Insulin] 100 unit/mL (3 mL) insulin pen 30 unit SQ BID Qty: 10 10RF cholecalciferol (vitamin D3) 1,250 mcg (50,000 unit) capsule 50,000 unit PO WEEKLY clonazepam 1 MG tablet 1 mg PO TIDP PRN (Reason: Anxiety) spironolactone 50 MG tablet 50 mg PO DAILY Referrals Follow up/Referrals: Lila Parekh APRN [Primary Care Provider] - See instructions Fidelia Jerez DPM [Staff Physician] - See instructions Activity Restrictions/Add. Instructions Additional Instructions/Restrictions: Follow-up with your PCP within 48 hours for recheck. Return to ER for any worsening signs or symptoms as needed. I have referred you to podiatry for evaluation of your heel ulcer. Please call in the morning to make an appointment. Clinical Impressions Clinical Impression: Hyperglycemia due to type 2 diabetes mellitus Qualifiers: Diabetes mellitus fdc insulin use: with termite treater use Qualified Code(s): E11.65 - Type 2 diabetes mellitus with hyperglycemia Diabetic foot ulcer Qualifiers: Diabetic foot ulcer location: heel Diabetes mellitus type: type 2 Laterality: l eft Print Language Print Language: Yakut Discharge ED Provider: Melinda Adamson General Adult HPI General Chief complaint: Recheck/Abnormal Lab/Rx Stated complaint: abnormal labs Time Seen by Provider: 04/14/24 14:43 History of Present Illness HPI narrative: Patient presents for evaluation of abnormal lab results. Patient had routine lab work done on Friday at her PCPs office. She was called and told to come to the ER today for abnormal lab results. She is not sure which lab results specifically were out of range. She has a past medical history of NC dependent type 2 diabetes mellitus with poor compliance, chronic kidney disease, diabetic dyslipidemia, hypertension, hyperlipidemia. She denies however any chest pain shortness of breath fever chills hemoptysis hematochezia melena nausea vomiting diarrhea. Related Data Home Medications ?Medication ?Instructions ?Recorded ?Confirmed clonazepam 1 mg tablet 1 mg PO TIDP PRN Anxiety 03/17/20 03/09/24 spironolactone 50 mg tablet 50 mg PO DAILY 03/17/20 02/10/24 gabapentin 400 mg capsule 400 mg PO TID 09/14/20 03/09/24 levothyroxine 88 mcg tablet 88 mcg PO DAILY 10/15/21 02/10/24 cholecalciferol (vitamin D3) 1,250 50,000 unit PO WEEKLY 01/06/24 03/09/24 mcg (50,000 unit) capsule dapagliflozin propanediol 10 mg 10 mg PO DAILY 03/09/24 03/09/24 tablet (Farxiga) Previous Rx's ?Medication ?Instructions ?Recorded insulin glargine 100 unit/mL (3 30 unit (0.3 mL) SQ BID Diabetes 12/14/22 mL) subcutaneous pen (Lantus #10 mL Solostar U-100 Insulin) insulin lispro 100 unit/mL 0 - 14 unit (0 - 0.14 mL) SQ 12/14/22 subcutaneous pen (Humalog KwikPen TIDWMEAL Diabetes #10 mL (U-100) Insulin) lisinopril 20 mg tablet 20 mg PO DAILY #30 tabs 01/20/24 cephalexin 500 mg capsule 1,000 mg (2 x 500 mg) PO BID #40 03/09/24 caps furosemide 20 mg tablet 20 mg PO DAILY #90 tabs 03/09/24 hydrocodone 5 mg-acetaminophen 325 1 tab PO Q8H PRN pain #90 tabs 03/09/24 mg tablet Allergies Allergy/AdvReac Type Severity Reaction Status Date / Time moxifloxacin Allergy Severe S-ANAPHYLAX Verified 03/09/24 14:48 IS Sulfa (Sulfonamide Allergy Mild NA-NAUSEA/V Verified 03/09/24 14:48 Antibiotics) OMITING PFSH PFSH Disclaimer: The information contained in this section may have been updated after the patient was seen, as this information can be updated by other users. Medical History Neuropathy Osteopenia Onychodystrophy Callus of foot Pain of toe of right foot Fracture of second toe, right, closed Edema of toe Acquired hammer toe Closed rib fracture Fall Hyperglycemia due to type 2 diabetes mellitus Bacteremia due to Klebsiella pneumoniae UTI due to Klebsiella species Gram-negative bacteremia DKA (diabetic ketoacidoses) Hyperglycemia due to type 2 diabetes mellitus CLL (chronic lymphocytic leukemia) History of hypertension Diabetes mellitus Surgical History H/O lithotripsy History of cholecystectomy Family History Other Cancer Congestive heart failure (CHF) Heart disease Lymphoma Social History Smoking Status: Never smoker alcohol intake: never substance use type: denies use current occupational status: unemployed Travel in the last 8 weeks: None household members: none housing: house caffeine: Yes Other Medical History Have you received the Flu Vaccine for this season: No Have you received the Pneumonia Vaccine: No ROS Obtained: Yes Systems reviewed as appropriate & no additional complaints except as documented Physical Exam General General appearance: alert and in no apparent distress Respiratory Respiratory exam: Present normal lung sounds bilaterally Cardiovascular Cardiovascular exam: Present regular rate Neurological Exam Neurological exam: Present alert and oriented X3 Medical Decision Making Medical Records Medical records reviewed: Yes I reviewed the patient's medical records. Screening: Per USPSTF and CDC recommendations, given the prevalence of disease in our region, it is our hospital?s policy to screen for HIV and viral Hepatitis for all patients aged 18 and over and those with ongoing risk factors. Xu Inquiry Pt receiving controlled substance: No Vital Signs: 04/14/24 14:43 04/14/24 15:30 Temperature 98.5 F Temperature Source Oral Pulse Rate 53 L Pulse Rate [Right Radial] 57 L Respiratory Rate 20 Blood Pressure 185/75 H Blood Pressure [Right Arm] 168/68 H Blood Pressure Mean [Right Arm] 101 02 Sat by Pulse Oximetry 100 97 Oxygen Delivery Method Room Air Room Air Lab Data Lab results reviewed: Yes I reviewed the patient's lab results. Lab Results 04/14/24 14:55: VBG pH 7.34, VBG pCO2 44.1, VBG pO2 44.0 H, VBG HCO3 23.2, VBG Total CO2 24.6, VBG O2 Saturation 80.1 H, VBG Base Excess -2.6 L, VBG Lactic Acid 2.1 H 04/14/24 15:04: WBC 13.7 H, RBC 3.68 L, Hgb 11.2 L, Hct 33.3 L, MCV 90.7, MCH 30.4, MCHC 33.5, RDW 14.4, Plt Count 263, MPV 7.9, Neut % (Auto) 31.3 L, Lymph % (Auto) 63.0 H, [place] % (Auto) 3.1, Eos % (Auto) 2.0, Baso % (Auto) 0.5, Neut # (Auto) 4.3, Lymph # (Auto) 8.6 H, [place] # (Auto) 0.4, Eos # (Auto) 0.3, Baso # (Auto) 0.1, Total Counted 100, Neutrophils % (Manual) 28 L, Lymphocytes % (Manual) 67 H, Monocytes % (Manual) 4, Eosinophils % (Manual) 1, Platelet Estimate Normal, Anisocytosis 1+, Microcytosis 1+, Macrocytosis 1+, Sodium 129 L , Potassium 4.5, Chloride 100, Carbon Dioxide 27, Anion Gap 6.5, BUN 54 H, C reatinine 1.80 H, Estimated Creat Clear 32, Estimated GFR 27 L, Est GFR ( Amer) 33 L, Glucose 469 H*, Hemoglobin A1c 12.3 H, Calcium 8.8, Magnesium 2.3, Total Bilirubin 0.5, AST 19, ALT 19, Alkaline Phosphatase 67, Total Protein 6.2 L, Albumin 3.6, Globulin 2.6, Albumin/Globulin Ratio 1.4, Lipase 220, Acetone Level None detected 04/14/24 15:49: Urine Color Yellow, Urine Appearance Clear, Urine pH 6.0, Ur Specific [place] 1.020, Urine Protein 1+ A, Urine Glucose (UA) 3+, Urine Ketones Negative, Urine Blood 1+ A, Urine Nitrate Negative, Urine Bilirubin Negative, Urine Urobilinogen 0.2, Ur Leukocyte Esterase Negative, Urine RBC 5-10, Urine WBC Occasional, Ur Squamous Epith Cells 5-10, Ur Transition Epith Cell 5-10, Urine Bacteria 2+, Urine Yeast 1+ 04/14/24 15:04 04/14/24 15:04 Orders (Tests/Meds): ED MEDICATIONS Discontinued Medications Generic Name Dose Route Start Last Admin Trade Name Freq PRN Reason Stop Dose Admin Insulin Human Regular 10 unit 04/14/24 15:54 04/14/24 16:07 Insulin Human Regular 100 Units/Ml 10ml Vial IVP 04/14/24 15:55 10 unit ONCE ONE Administration ORDERS Category Date Time Status Acetone, Serum (Rapid) Stat Lab 04/14/24 15:04 Completed CBC w/Auto Diff [Complete Blood Count Auto Diff] Stat Lab 04/14/24 15:04 Completed CMP [Comprehensive Metabolic Panel] Stat Lab 04/14/24 15:04 Completed Hemoglobin A1C Stat Lab 04/14/24 15:04 Completed Lipase Stat Lab 04/14/24 15:04 Completed Magnesium Stat Lab 04/14/24 15:04 Completed UA [Urinalysis and Microscopic] Stat Lab 04/14/24 15:49 Completed Urine Culture Stat Micro 04/14/24 15:49 Received VBG [Venous Blood Gas] Stat RT 04/14/24 14:55 Completed Medical Decision Narrative: In summary patient is a 73-year-old female who presents to the emergency department for evaluation of abnormal lab results. Patient is initially hypertensive with a blood pressure 168/68 but with a pulse of 57 respiratory rate of 20 satting at 100% on room air upon arrival, afebrile. Physical exam is mostly unremarkable and nonfocal with exception of a diabetic foot ulcer at her left heel that is not new and that she is currently on antibiotics for. Differential diagnosis includes without knowing what specific lab is out of range it is hard to predict but I suspect she may have worsening renal function versus electrolyte derangement versus hyperglycemia etc. Initial workup will be conducted with hematologic labs as we are unable to review her PCP lab results in our system and patient did not come with them, urinalysis. Initial interventions were considered however patient has no specific complaints thus deferred until lab results return. Initial workup reviewed by me shows the patient has hyperglycemia without DKA, pseudohyponatremia, leukocytosis however that looks to be volume contraction given her hyperosmolar state, normal pH on VBG, creatinine and GFR are at her baseline respectively given her chronic kidney disease.. Upon repeat evaluation I gave patient 10 units of IV push insulin for her hyperglycemia and her blood sugar now has come down to under 300. Given this patient patient is appropriate for discharge with close follow- up within 48 hours with her PCP for recheck. Critical Care Critical Care Time Critical Care Time: No
--- NOTE | 2024-04-14 15:09 | PC.NURSE ---
RT notified of VBG order
[2024-04-14 15:12] LABS: VBG Base Excess -2.6 mmol/L (-2.4-2.3); VBG HCO3 23.2 mmol/L (23-30); VBG Oxygen Saturation 80.1 % (50-70); VBG PCO2 44.1 mmol/L (35-51); VBG PH 7.34 mmol/L (7.31-7.41); VBG Total CO2 24.6 mmol/L (23-27)
[2024-04-14 15:14] LABS: Basophils # 0.1 K/mm3 (0-0.2); Basophils % 0.5 % (0.1-2.0); Eosinophils # 0.3 K/mm3 (0.0-0.4); Hematocrit 33.3 % (37.0-47.0); Hemoglobin 11.2 g/dL (12.2-16.2); Lymphocytes # 8.6 K/mm3 (0.7-4.5); Mean Corpuscular HGB Conc 33.5 g/dL (31.8-35.4); Mean Corpuscular Hemoglobin 30.4 pg (27.0-31.2); Mean Corpuscular Volume 90.7 fl (81-99); Mean Platelet Volume 7.9 fl (7.4-10.4); Monocytes # 0.4 K/mm3 (0.1-1.0); Monocytes % 3.1 % (1.7-9.3); Neutrophils # 4.3 K/mm3 (1.8-7.8); Neutrophils % 31.3 % (37.0-80.0); Platelet Count 263 K/mm3 (142-424); Red Blood Count 3.68 M/mm3 (4.20-5.40); Red Cell Distribution Width 14.4 % (11.5-17.5); White Blood Count 13.7 K/mm3 (4.8-10.8)
[2024-04-14 15:17] LABS: MANUAL DIFFERENTIAL MANUAL DIFFERENTIAL (MANUAL DIFF)
[2024-04-14 15:28] LABS: Alanine Aminotransferase 19 U/L (12-78); Albumin Level 3.6 g/dl (3.5-5.0); Albumin/Globulin Ratio 1.4 (1.1-1.8); Alkaline Phosphatase 67 U/L (38-126); Anion Gap 6.5 mEq/L (5-15); Aspartate Amino Transferase 19 U/L (14-36); Bilirubin,Total 0.5 mg/dl (0.2-1.3); Blood Urea Nitrogen 54 mg/dl (7-17); Calcium 8.8 mg/dl (8.4-10.2); Carbon Dioxide 27 mmol/L (22.0-30.0); Chloride 100 mmol/L (98-107); Creatinine Clearance Estimated 32 mL/min (50-200); Estimated Glomerular Filt Rate 27 ml/min (>60); GFR (African American) 33 ML/MIN (>60); Globulin 2.6 g/dL (1.3-3.2); Lipase 220 U/L (23-300); Magnesium 2.3 mg/dl (1.6-2.3); Potassium 4.5 mmoL/L (3.5-5.1); Sodium 129 mmol/L (136-145); Total Protein,Serum 6.2 g/dl (6.3-8.2)
[2024-04-14 15:33] LABS: Glucose 469 mg/dl (74-100)
[2024-04-14 15:41] LABS: Anisocytosis 1+; Eosinophils % 1 % (0-3); Lymphocytes % 67 % (10-50); Macrocytosis 1+; Microcytosis 1+; Monocytes % 4 % (2-9); Neutrophils % 28 % (42-76); Platelet Estimate Normal; Total Cells Counted 100
[2024-04-14 15:52] LABS: Lactate Venous 2.1 mmol/L (0.4-2.0)
[2024-04-14 15:58] LABS: Microscopic, Urine URINE MICROSCOPIC (MICROSCOPIC)
[2024-04-14 16:01] LABS: Appearance,Urine CLEAR (Clear); Bilirubin,Urine Negative (Negative); Blood, Urine 1+ (Negative); Color,Urine YELLOW (Yellow); Glucose,Urine (UA) 3+ (Negative); Ketones,Urine Negative (Negative); Leukocyte Esterase,Urine Negative (Negative); Nitrate,Urine Negative (Negative); Protein,Urine 1+ (Negative); Urobilinogen,Urine 0.2 EU/dl (0.2)
[2024-04-14] MEDS: INSULIN HUMAN REGULAR 100 UNITS/ML 10ML VIAL 10 UNIT IVP (16:07)
[2024-04-14 16:18] LABS: Hemoglobin A1C 12.3 % (4.0-6.0)
[2024-04-14 16:42] LABS: Bacteria,Urine 2+ /lpf; WBC,Urine Occasional #/hpf (0-3)
[2024-04-14 16:44] LABS: Yeast,Urine 1+ /lpf
[2024-04-14 16:58] LABS: Acetone, Serum (Rapid) None Detected (None Detect)
[2024-04-14 19:53] LABS: Reflex Lactic Add Lactic Reflex
== END 2024-04-14 17:22 | disposition home or self-care (01) ==
PROVIDERS: Physician Assistant; Emergency Provider Emergency Medicine; PCP Nurse Practitioner
DX: E11.65 Type 2 diabetes mellitus with hyperglycemia (principal)
CPT/HCPCS: 80053; 81001; 82009; 82803; 83036; 83690; 83735; 85007; 85025; 87086; 96374; 99284

== ENCOUNTER 2024-05-02 12:51 | Emergency (ER) | payer MEDICARE, SELFPAY ==
[2024-05-02 12:51] VITALS: BP 128/92; PULSE 70; RESP 16; TEMP 36.7; O2SAT 94; BMI 25.0
[2024-05-02 13:26] LABS: HIV (1&2) Antibody Rapid NONREACTIVE (NONREACTIVE)
--- NOTE | 2024-05-02 13:59 | CT_ITS ---
PROCEDURE INFORMATION: Exam: CT Cervical Spine Without Contrast Exam date and time: 05/02/2024 3:12 PM Age: 73 years old Clinical indication: Injury or trauma; Additional info: Fall >65 TECHNIQUE: Imaging protocol: Computed tomography of the cervical spine without contrast. Radiation optimization: All CT scans at this facility use at least one of these dose optimization techniques: automated exposure control; mA and/or kV adjustment per patient size (includes targeted exams where dose is matched to clinical indication); or iterative reconstruction. COMPARISON: CT CERVICAL SPINE WO CON 11/01/2023 3:14 PM FINDINGS: Bones: Straightening of the normal cervical lordosis may be related to patient position or due to muscle spasm. There is 2 mm of anterolisthesis at C4-C5. There is loss of disc space height at C5-C6 and C6-C7, related to degenerative disc disease. There are facet joint degenerative changes throughout. There is no acute cervical spine fracture. Lungs: Lung apices are normal. Thyroid: The thyroid is diminutive. Soft tissues: There is no prevertebral soft tissue swelling. IMPRESSION: 1. Degenerative changes throughout. 2. There is no acute cervical spine fracture.
--- NOTE | 2024-05-02 13:59 | CT_ITS ---
PROCEDURE INFORMATION: Exam: CT Head Without Contrast Exam date and time: 05/02/2024 3:10 PM Age: 73 years old Clinical indication: Injury or trauma; Additional info: Fall >65 TECHNIQUE: Imaging protocol: Computed tomography of the head without contrast. Radiation optimization: All CT scans at this facility use at least one of these dose optimization techniques: automated exposure control; mA and/or kV adjustment per patient size (includes targeted exams where dose is matched to clinical indication); or iterative reconstruction. COMPARISON: CT HEAD/BRAIN WO CON 05/02/2024 3:10 PM FINDINGS: Brain: The brain demonstrates diffuse volume loss. There is white matter hypodensity most consistent with chronic small vessel ischemic change. Cerebral ventricles: The ventricles and CSF spaces are proportionately enlarged. Paranasal sinuses: There is mucoperiosteal reaction involving the maxillary sinuses and ethmoid air cells. Mastoid air cells: Visualized mastoid air cells are well aerated. Orbital cavities: There are postoperative changes from prior cataract surgery. Bones: No acute fracture. Soft tissues: Unremarkable. IMPRESSION: 1. Atrophy and the sequela of prior small vessel ischemia. 2. No sequela of acute intracranial trauma.
--- NOTE | 2024-05-02 13:59 | CT_ITS ---
PROCEDURE INFORMATION: Exam: CT Chest Without Contrast; Diagnostic Exam date and time: 05/02/2024 3:14 PM Age: 73 years old Clinical indication: Injury or trauma; Additional info: Cough, SOA, fall TECHNIQUE: Imaging protocol: Diagnostic computed tomography of the chest without contrast. Radiation optimization: All CT scans at this facility use at least one of these dose optimization techniques: automated exposure control; mA and/or kV adjustment per patient size (includes targeted exams where dose is matched to clinical indication); or iterative reconstruction. COMPARISON: CT CHEST WO CON 01/05/2024 8:22 PM FINDINGS: Lungs: Unremarkable. No consolidation. No masses. Pleural spaces: Unremarkable. No pneumothorax. No pleural effusion. Heart: Unremarkable. No cardiomegaly. No pericardial effusion. Coronary arteries: Coronary artery calcification Lymph nodes: Calcified mediastinal lymph nodes Vasculature: Regions of atherosclerotic vascular calcification involving the aortic arch. Bones/joints: Unremarkable. No acute fracture. Soft tissues: Unremarkable. Other findings: Evidence of prior granulomatous disease. IMPRESSION: No evidence of acute intrathoracic abnormality.
[2024-05-02 14:00] VITALS: BP 153/67; PULSE 66; O2SAT 95
--- NOTE | 2024-05-02 14:02 | ED_ITS ---
Discharge Plan Disposition Patient Disposition: Home, Self-Care Condition: Good Prescriptions Prescriptions: No Action levothyroxine 88 mcg tablet 88 mcg PO DAILY furosemide 20 mg tablet 20 mg PO DAILY Qty: 90 1RF hydrocodone-acetaminophen 5-325 mg tablet 1 tab PO Q8H PRN (Reason: pain) Qty: 90 0RF dapagliflozin propanediol [Farxiga] 10 mg tablet 10 mg PO DAILY cephalexin 500 mg capsule 1,000 mg PO BID Qty: 40 0RF gabapentin 400 mg capsule 400 mg PO TID lisinopril 20 mg tablet 20 mg PO DAILY Qty: 30 2RF insulin lispro [Humalog KwikPen Insulin] 100 unit/mL insulin pen 0 - 14 unit SQ TIDWMEAL Qty: 10 10RF Rx Instructions: Per home sliding scale If blood sugar 151-200 take 4 units short acting insulin If blood sugar 200-250 take 8 units short acting insulin If blood sugar 251-300 take 12 units short acting insulin If blood sugar 301-350 take 14 units short acting insulin If blood sugar greater than 350 take 14 units insulin and call physician for further instructions. insulin glargine [Lantus Solostar U-100 Insulin] 100 unit/mL (3 mL) insulin pen 30 unit SQ BID Qty: 10 10RF cholecalciferol (vitamin D3) 1,250 mcg (50,000 unit) capsule 50,000 unit PO WEEKLY clonazepam 1 MG tablet 1 mg PO TIDP PRN (Reason: Anxiety) spironolactone 50 MG tablet 50 mg PO DAILY Referrals Follow up/Referrals: Lila Parekh APRN [Primary Care Provider] - See instructions Activity Restrictions/Add. Instructions Additional Instructions/Restrictions: You were evaluated in the emergency department today. At this time, we feel that your cough is likely viral in nature because CT scan does not show any evidence of pneumonia. Given this, we are not prescribing you antibiotics. Expect that cough may linger for several days. Please follow-up closely with your primary care provider for reassessment of this. Return to the emergency department for new or worsening symptoms Clinical Impressions Clinical Impression: Viral URI with cough, Falls frequently Instructions Patient Instructions: DI for Cough -- Adult, How to Prevent Falls Print Language Print Language: Kittitian Discharge ED Provider: Melinda Adamson General Adult HPI General Chief complaint: Weakness Stated complaint: weakness Time Seen by Provider: 05/02/24 12:52 Mode of Arrival: EMS Source of Information: Patient Limitations: No Limitations Description of Symptoms (Recalled from ER Triage Doc. by RN): Reports generally not feeling well and having frequent falls. Complaint of shortness of breath and cough that started yesterday. History of Present Illness HPI narrative: This patient is a 73-year-old female with a history of type 2 diabetes, peripheral neuropathy, CKD, CLL, hypertension, and frequent falls presented to the emergency department for evaluation with concern for fall and cough. Patient notes that she falls all the time and usually has a hard time getting back up on her own. She states that today, she was trying to sit in her chair when she missed the chair, falling down on her knees. She had a hard time getting up, which is normal for her. She called EMS and decided to come to the ED for evaluation with concern for cough as well. She notes that she feels like she may have croup. She states that she started having a barking dry cough yesterday. No history of COPD or lung issues. No other concerns noted at this time. During the fall, she did not hit her head or lose consciousness and she denies any injuries related to the fall. Related Data Home Medications ?Medication ?Instructions ?Recorded ?Confirmed clonazepam 1 mg tablet 1 mg PO TIDP PRN Anxiety 03/17/20 03/09/24 spironolactone 50 mg tablet 50 mg PO DAILY 03/17/20 02/10/24 gabapentin 400 mg capsule 400 mg PO TID 09/14/20 03/09/24 levothyroxine 88 mcg tablet 88 mcg PO DAILY 10/15/21 02/10/24 cholecalciferol (vitamin D3) 1,250 50,000 unit PO WEEKLY 01/06/24 03/09/24 mcg (50,000 unit) capsule dapagliflozin propanediol 10 mg 10 mg PO DAILY 03/09/24 03/09/24 tablet (Farxiga) Previous Rx's ?Medication ?Instructions ?Recorded insulin glargine 100 unit/mL (3 30 unit (0.3 mL) SQ BID Diabetes 12/14/22 mL) subcutaneous pen (Lantus #10 mL Solostar U-100 Insulin) insulin lispro 100 unit/mL 0 - 14 unit (0 - 0.14 mL) SQ 12/14/22 subcutaneous pen (Humalog KwikPen TIDWMEAL Diabetes #10 mL (U-100) Insulin) lisinopril 20 mg tablet 20 mg PO DAILY #30 tabs 01/20/24 cephalexin 500 mg capsule 1,000 mg (2 x 500 mg) PO BID #40 03/09/24 caps furosemide 20 mg tablet 20 mg PO DAILY #90 tabs 03/09/24 hydrocodone 5 mg-acetaminophen 325 1 tab PO Q8H PRN pain #90 tabs 03/09/24 mg tablet Allergies Allergy/AdvReac Type Severity Reaction Status Date / Time moxifloxacin Allergy Severe S-ANAPHYLAX Verified 03/09/24 14:48 IS Sulfa (Sulfonamide Allergy Mild NA-NAUSEA/V Verified 03/09/24 14:48 Antibiotics) OMITING PFSH PFSH Disclaimer: The information contained in this section may have been updated after the patient was seen, as this information can be updated by other users. Medical History Neuropathy Osteopenia Onychodystrophy Callus of foot Pain of toe of right foot Fracture of second toe, right, closed Edema of toe Acquired hammer toe Closed rib fracture Fall Hyperglycemia due to type 2 diabetes mellitus Bacteremia due to Klebsiella pneumoniae UTI due to Klebsiella species Gram-negative bacteremia DKA (diabetic ketoacidoses) Hyperglycemia due to type 2 diabetes mellitus CLL (chronic lymphocytic leukemia) History of hypertension Diabetes mellitus Surgical History H/O lithotripsy History of cholecystectomy Family History Other Cancer Congestive heart failure (CHF) Heart disease Lymphoma Social History Smoking Status: Never smoker alcohol intake: never substance use type: denies use current occupational status: unemployed Travel in the last 8 weeks: None household members: none housing: house caffeine: Yes Other Medical History Have you received the Flu Vaccine for this season: No Have you received the Pneumonia Vaccine: No ROS Obtained: Yes All systems reviewed & no additional complaints except as documented Physical Exam General General appearance: alert and in no apparent distress Head Head exam: atraumatic and normocephalic Eye Eye exam: Present normal appearance, PERRL and EOMI ENT ENT exam: Present normal exam, normal oropharynx, mucous membranes moist and normal external ear exam Neck Neck exam: Present normal inspection, full ROM and trachea midline; Absent tenderness Chest Chest inspection: Present normal inspection and symmetric chest wall rise; Absent tenderness Respiratory Respiratory exam: Present normal lung sounds bilaterally; Absent respiratory distress, wheezes, stridor or accessory muscle use Cardiovascular Cardiovascular exam: Present regular rate and normal rhythm Abdominal Exam Abdominal exam: Present soft; Absent distention, tenderness or guarding Extremities Exam Extremities exam: Present normal inspection, full ROM and normal capillary refill; Absent tenderness or edema Back Exam Back exam: Present normal inspection and full ROM; Absent tenderness Neurological Exam Neurological exam: Present alert, oriented X3, CN II-XII intact and normal gait; Absent motor sensory deficit Psychiatric Psychiatric exam: Present normal affect and normal mood Skin Skin exam: Present warm and dry Medical Decision Making Medical Records Medical records reviewed: Yes I reviewed the patient's medical records. Screening: Per USPSTF and CDC recommendations, given the prevalence of disease in our region, it is our hospital?s policy to screen for HIV and viral Hepatitis for all patients aged 18 and over and those with ongoing risk factors. Xu Inquiry Pt receiving controlled substance: No Vital Signs: 05/02/24 12:51 05/02/24 14:00 05/02/24 14:29 Temperature 98.0 F Temperature Source Oral Pulse Rate 66 65 Pulse Rate [Radial] 70 Respiratory Rate 16 Blood Pressure 153/67 H 149/92 H Blood Pressure [Right Arm] 128/92 H Blood Pressure Mean 88 Blood Pressure Mean [Right Arm] 104 Blood Pressure Source [Right Arm] Automatic Cuff Blood Pressure Position [Right Arm] Sitting 02 Sat by Pulse Oximetry 94 L 95 95 Oxygen Delivery Method Room Air Room Air Room Air 05/02/24 15:02 Temperature Temperature Source Pulse Rate 65 Pulse Rate [Radial] Respiratory Rate Blood Pressure 132/107 H Blood Pressure [Right Arm] Blood Pressure Mean 113 Blood Pressure Mean [Right Arm] Blood Pressure Source [Right Arm] Blood Pressure Position [Right Arm] 02 Sat by Pulse Oximetry 93 L Oxygen Delivery Method Room Air Lab Data Lab results reviewed: Yes I reviewed the patient's lab results. Lab Results 05/02/24 12:51: WBC 19.1 H, RBC 4.01 L, Hgb 11.8 L, Hct 36.3 L, MCV 90.5, MCH 29.4, MCHC 32.5, RDW 14.3, Plt Count 257, MPV 7.7, Neut % (Auto) 43.0, Lymph % (Auto) 50.4 H, [place] % (Auto) 3.5, Eos % (Auto) 2.5, Baso % (Auto) 0.7, Neut # (Auto) 8.2 H, Lymph # (Auto) 9.6 H, [place] # (Auto) 0.7, Eos # (Auto) 0.5 H, Baso # (Auto) 0.1, Total Counted 100, Neutrophils % (Manual) 45, Lymphocytes % (Manual) 50, Monocytes % (Manual) 3, Eosinophils % (Manual) 2, Platelet Estimate Normal, RBC Morphology Normal, Sodium 135 L, Potassium 4.8, Chloride 101, Carbon Dioxide 27, Anion Gap 11.8, BUN 29 H, Creatinine 2.10 H, Estimated Creat Clear 27, Estimated GFR 23 L, Est GFR ( Amer) 28 L, Glucose 343 H, Calcium 8.9, Total Bilirubin 0.5, AST 19, ALT 15, Alkaline Phosphatase 114, Total Protein 6.7, Albumin 3.7, Globulin 3.0, Albumin/Globulin Ratio 1.2, HIV 1&2 Antibody Rapid Nonreactive 05/02/24 12:51 05/02/24 12:51 Orders (Tests/Meds): ORDERS Category Date Time Status CT cervical spine wo con Stat Cat Scan 05/02/24 13:[address] chest wo con Stat Cat Scan 05/02/24 13:[address] head/brain wo con Stat Cat Scan 05/02/24 13:59 Completed CBC w/Auto Diff [Complete Blood Count Auto Diff] Stat Lab 05/02/24 12:51 Completed CMP [Comprehensive Metabolic Panel] Stat Lab 05/02/24 12:51 Completed HIV (1&2) Antibody Rapid Stat Lab 05/02/24 12:51 Completed Hep C Ab with Reflex to RNA Stat Lab 05/02/24 12:51 Received Rapid PCR Covid and Flu A/B Stat Lab 05/02/24 13:59 Received Medical Decision Narrative: In summary, this patient is a 73-year-old female presenting to the Emergency Department for evaluation of fall as well as cough that started yesterday. Differential diagnoses considered include but are not limited to head trauma, neck trauma, polytrauma, pneumonia, viral syndrome, bronchitis. Ruling out the most morbid conditions drove assessment. It should be noted patient's history includes diabetes, hypertension, hyperlipidemia, CLL, peripheral neuropathy which may or may not be at goal therapy. This complicates all aspects of care by increasing patient's risk for morbidity. On exam, the patient is lying in bed in no acute distress. She is alert and oriented x 4 and neurologically intact. Cardiopulmonary Víctor is reassuring. No obvious traumatic injuries noted on exam. Workup included CT head, CT C-spine, CT chest without contrast as well as basic lab evaluation. I independently interpreted CT scan prior to the radiologist read and noted no large pneumonia, no obvious intracranial hemorrhage, no obvious fracture. Please see their read for final interpretation. Labs were obtained that demonstrated leukocytosis, which is chronic in the setting of CLL. Labs otherwise around the patient's baseline with baseline CKD. At this time, no acutely concerning abnormalities that would warrant further evaluation noted on workup.. On reassessment, patient continues to lie comfortably in bed in no acute distress with normal vital signs on cardiac telemetry. Overall, workup and exam have been reassuring. I feel she likely has a viral syndrome as a cause of her cough, as symptoms just started yesterday and she has no findings concerning for pneumonia. She also has no traumatic injuries found. Patient was able to ambulate throughout the emergency department. Given this, I feel that she is appropriate for discharge back home. She was given strict return precautions, instructions for supportive management, and instructions for close follow-up with primary care. She was discharged after all questions were answered. Critical Care Critical Care Time Critical Care Time: No
[2024-05-02 14:06] LABS: Basophils # 0.1 K/mm3 (0-0.2); Basophils % 0.7 % (0.1-2.0); Eosinophils # 0.5 K/mm3 (0.0-0.4); Eosinophils % 2.5 % (0.1-12.0); Hematocrit 36.3 % (37.0-47.0); Hemoglobin 11.8 g/dL (12.2-16.2); Lymphocytes # 9.6 K/mm3 (0.7-4.5); Lymphocytes % 50.4 % (10-50); Mean Corpuscular HGB Conc 32.5 g/dL (31.8-35.4); Mean Corpuscular Hemoglobin 29.4 pg (27.0-31.2); Mean Corpuscular Volume 90.5 fl (81-99); Mean Platelet Volume 7.7 fl (7.4-10.4); Monocytes # 0.7 K/mm3 (0.1-1.0); Monocytes % 3.5 % (1.7-9.3); Neutrophils # 8.2 K/mm3 (1.8-7.8); Platelet Count 257 K/mm3 (142-424); Red Blood Count 4.01 M/mm3 (4.20-5.40); Red Cell Distribution Width 14.3 % (11.5-17.5); White Blood Count 19.1 K/mm3 (4.8-10.8)
[2024-05-02 14:08] LABS: MANUAL DIFFERENTIAL MANUAL DIFFERENTIAL (MANUAL DIFF)
[2024-05-02 14:12] LABS: Albumin Level 3.7 g/dl (3.5-5.0); Chloride 101 mmol/L (98-107)
[2024-05-02 14:13] LABS: Potassium 4.8 mmoL/L (3.5-5.1); Sodium 135 mmol/L (136-145)
[2024-05-02 14:14] LABS: Eosinophils % 2 % (0-3); Lymphocytes % 50 % (10-50); Monocytes % 3 % (2-9); Neutrophils % 45 % (42-76); Platelet Estimate Normal; RBC Morphology Normal; Total Cells Counted 100
[2024-05-02 14:15] LABS: Alanine Aminotransferase 15 U/L (12-78); Anion Gap 11.8 mEq/L (5-15); Aspartate Amino Transferase 19 U/L (14-36); Bilirubin,Total 0.5 mg/dl (0.2-1.3); Blood Urea Nitrogen 29 mg/dl (7-17); Carbon Dioxide 27 mmol/L (22.0-30.0); Creatinine Clearance Estimated 27 mL/min (50-200); Estimated Glomerular Filt Rate 23 ml/min (>60); GFR (African American) 28 ML/MIN (>60)
[2024-05-02 14:16] LABS: Albumin/Globulin Ratio 1.2 (1.1-1.8); Alkaline Phosphatase 114 U/L (38-126); Calcium 8.9 mg/dl (8.4-10.2); Glucose 343 mg/dl (74-100); Total Protein,Serum 6.7 g/dl (6.3-8.2)
[2024-05-02 14:29] VITALS: BP 149/92; PULSE 65; O2SAT 95
[2024-05-02 14:34] LABS: Coronavirus 19, PCR Not Detected (NotDetected); Influenza A, PCR Not Detected (NotDetected); Influenza B, PCR Not Detected (NotDetected)
[2024-05-02 15:02] VITALS: BP 132/107; PULSE 65; O2SAT 93
[2024-05-02 15:50] VITALS: BP 126/60; PULSE 65; RESP 18; TEMP 36.7; O2SAT 95
[2024-05-04 09:28] LABS: HCV Ab Non Reactive (Non Reactive)
== END 2024-05-02 15:52 | disposition home or self-care (01) ==
PROVIDERS: Emergency Provider Emergency Medicine; PCP Nurse Practitioner
DX: J06.9 Acute upper respiratory infection, unspecified (principal); R05.9 Cough, unspecified; R29.6 Repeated falls
CPT/HCPCS: 70450; 71250; 72125; 80053; 85007; 85025; 85027; 86803; 87389; 87636; 99285

== ENCOUNTER 2024-07-25 12:50 | Inpatient (IN) | payer MEDICARE, SELFPAY ==
[2024-07-25] VITALS (26 sets, daily range): BP systolic 100–167; BP diastolic 41–73; PULSE 55–68; RESP 10–20; TEMP 35.7–37.1; O2SAT 94–100; BMI 26.6; BMI 26.5
--- NOTE | 2024-07-25 12:55 | CT_ITS ---
PROCEDURE INFORMATION: Exam: CT Cervical Spine Without Contrast Exam date and time: 07/25/2024 1:12 PM Age: 73 years old Clinical indication: Injury or trauma; Fall TECHNIQUE: Imaging protocol: Computed tomography of the cervical spine without contrast. Radiation optimization: All CT scans at this facility use at least one of these dose optimization techniques: automated exposure control; mA and/or kV adjustment per patient size (includes targeted exams where dose is matched to clinical indication); or iterative reconstruction. COMPARISON: CT CERVICAL SPINE WO CON 07/25/2024 1:12 PM FINDINGS: Bones: Alignment normal. posterior vertebral line and the spinal laminar line normal. odontoid process normal. no fracture. Mild degenerative disc disease most pronounced C5-C6 and C6-C7 reflected as disk space narrowing and anterior osteophyte formation. Lungs: The lung apices are normal. Vasculature: Carotid calcifications Soft tissues: Unremarkable. IMPRESSION: 1. No fracture. 2. Mild degenerative disc disease most pronounced C5-C6 and C6-C7 reflected as disk space narrowing and anterior osteophyte formation.
--- NOTE | 2024-07-25 12:55 | CT_ITS ---
PROCEDURE INFORMATION: Exam: CT Lumbar Spine Without Contrast Exam date and time: 07/25/2024 1:17 PM Age: 73 years old Clinical indication: Injury or trauma; Fall; Additional info: Trauma, critical injury suspected TECHNIQUE: Imaging protocol: Computed tomography of the lumbar spine without contrast. Radiation optimization: All CT scans at this facility use at least one of these dose optimization techniques: automated exposure control; mA and/or kV adjustment per patient size (includes targeted exams where dose is matched to clinical indication); or iterative reconstruction. COMPARISON: CT THORACIC SPINE WO CON 07/25/2024 1:14 PM FINDINGS: Bones/joints: Lumbar curvature and alignment is unremarkable.. There are no compression fractures, spondylolysis or spondylolisthesis. There are moderate degenerative disc/endplate changes L5-S1 with diffuse disc space narrowing, endplate sclerosis and posterior osteophytic lipping. Resulting in mild stenosis of the central canal and moderate foraminal narrowing bilaterally. There is also mild degenerative spinal stenosis at L4-L5. Remaining disc heights are fairly well-maintained. Soft tissues: Unremarkable. IMPRESSION: No acute bony abnormalities.
--- NOTE | 2024-07-25 12:55 | CT_ITS ---
PROCEDURE INFORMATION: Exam: CT Head Without Contrast Exam date and time: 07/25/2024 1:11 PM Age: 73 years old Clinical indication: Injury or trauma; Fall TECHNIQUE: Imaging protocol: Computed tomography of the head without contrast. Radiation optimization: All CT scans at this facility use at least one of these dose optimization techniques: automated exposure control; mA and/or kV adjustment per patient size (includes targeted exams where dose is matched to clinical indication); or iterative reconstruction. COMPARISON: CT HEAD/BRAIN WO CON 05/02/2024 3:10 PM FINDINGS: Brain: Hypodensity is seen in the periventricular cerebral white matter. This change is nonspecific but is most likely secondary to chronic ischemia within microvascular distributions. No intra or extra-axial masses, lesions or collections. Brock white matter distinction is maintained throughout the brain. No radiographic evidence of intracranial hemorrhage. Cerebral ventricles: Ventricles are enlarged on the basis of mild diffuse cerebral volume loss. Paranasal sinuses: Visualized sinuses are unremarkable. No fluid levels. Mastoid air cells: Visualized mastoid air cells are well aerated. Bones: Severe degenerative changes left temporomandibular joint Soft tissues: Unremarkable. IMPRESSION: No radiographic evidence of acute intracranial pathology.
--- NOTE | 2024-07-25 12:55 | XR_ITS ---
PROCEDURE INFORMATION: Exam: XR Chest Exam date and time: 07/25/2024 1:20 PM Age: 73 years old Clinical indication: Chest wall pain; Additional info: Rib pain TECHNIQUE: Imaging protocol: Radiologic exam of the chest. Views: 1 view. COMPARISON: CT CHEST WO CON 05/02/2024 3:14 PM FINDINGS: Lungs: Unremarkable. No consolidation. Pleural spaces: Unremarkable. No pleural effusion. No pneumothorax. Heart/Mediastinum: Unremarkable. No cardiomegaly. Bones/joints: No acute bony abnormalities detected. IMPRESSION: Negative chest exam.
--- NOTE | 2024-07-25 12:55 | CT_ITS ---
PROCEDURE INFORMATION: Exam: CT Thoracic Spine Without Contrast Exam date and time: 07/25/2024 1:14 PM Age: 73 years old Clinical indication: Injury or trauma; Fall TECHNIQUE: Imaging protocol: Computed tomography of the thoracic spine without contrast. Radiation optimization: All CT scans at this facility use at least one of these dose optimization techniques: automated exposure control; mA and/or kV adjustment per patient size (includes targeted exams where dose is matched to clinical indication); or iterative reconstruction. COMPARISON: CT THORACIC SPINE WO CON 07/25/2024 1:14 PM FINDINGS: Bones/joints: Normal alignment. No spondylolisthesis. No compression fracture or acute bony abnormality. Disc heights are maintained. No severe spinal canal stenosis. No significant neural foraminal narrowing. Incidental benign bony hemangioma T9 vertebral body. Soft tissues: Unremarkable. IMPRESSION: No acute bony abnormalities.
--- NOTE | 2024-07-25 12:56 | CT_ITS ---
PROCEDURE INFORMATION: Exam: CT Pelvis Without Contrast, Skeleton Exam date and time: 07/25/2024 1:19 PM Age: 73 years old Clinical indication: Injury or trauma; Fall; Additional info: Trauma, critical injury suspected TECHNIQUE: Imaging protocol: Computed tomography of the pelvis without contrast. Exam focused on the skeleton. Radiation optimization: All CT scans at this facility use at least one of these dose optimization techniques: automated exposure control; mA and/or kV adjustment per patient size (includes targeted exams where dose is matched to clinical indication); or iterative reconstruction. COMPARISON: CT ABDOMEN PELVIS WO CON 12/12/2022 9:47 PM FINDINGS: Vasculature: Scattered atherosclerotic changes of the distal abdominal aorta and iliac vessels. Reproductive: Uterus has been removed. Urinary bladder: There is mild bladder wall thickening the may have progressed from previous exam and should be correlated to exclude acute cystitis.. There is a moderate amount of intravesicular air now present there may be a recent catheterization or incompetent urethra. Bones/joints: Mild degenerative changes both hip joints and pubic symphysis. There are more pronounced degenerative changes L5-S1 redemonstrated. Osseous structures are otherwise unremarkable. No fracture deformity or malalignment detected. Soft tissues: Unremarkable. IMPRESSION: 1. No acute bony abnormalities. 2. Nonspecific findings involving the urinary bladder as discussed above.
--- NOTE | 2024-07-25 12:57 | XR_ITS ---
PROCEDURE INFORMATION: Exam: XR Left Knee Exam date and time: 07/25/2024 1:20 PM Age: 73 years old Clinical indication: Injury or trauma; Fall; Blunt trauma; Knee; Left TECHNIQUE: Imaging protocol: Radiologic exam of the left knee. Views: 3 views. COMPARISON: No relevant prior studies available. FINDINGS: Bones/joints: Moderate tricompartmental osteoarthritis most pronounced within the medial knee compartment and patellofemoral joint with joint space narrowing, subchondral sclerosis and marginal spurring. No evidence of fracture, malalignment underlying bone lesion. Soft tissues: Unremarkable. IMPRESSION: No acute bony abnormalities.
--- NOTE | 2024-07-25 12:57 | XR_ITS ---
PROCEDURE INFORMATION: Exam: XR Right Knee Exam date and time: 07/25/2024 1:20 PM Age: 73 years old Clinical indication: Injury or trauma; Fall; Blunt trauma; Knee; Right TECHNIQUE: Imaging protocol: Radiologic exam of the right knee. Views: 3 views. COMPARISON: CR XR KNEE RT 2V 05/14/2023 4:39 PM FINDINGS: Bones/joints: There are moderate tricompartmental degenerative changes most pronounced lateral knee compartment with joint space narrowing, subchondral sclerosis and mild marginal spurring. The remaining osseous structures are unremarkable. There is no fracture or malalignment. Soft tissues: Normal. There is no joint effusion. IMPRESSION: Moderate tricompartmental osteoarthritis. No acute abnormalities.
--- NOTE | 2024-07-25 12:59 | ED_ITS ---
Discharge Plan Disposition Patient Disposition: Admitted Condition: Serious Prescriptions Prescriptions: No Action levothyroxine 88 mcg tablet 88 mcg PO DAILY dapagliflozin propanediol [Farxiga] 10 mg tablet 10 mg PO DAILY hydrocodone-acetaminophen 5-325 mg tablet 1 tab PO Q8H PRN (Reason: pain) Qty: 90 0RF gabapentin 400 mg capsule 400 mg PO TID lisinopril 20 mg tablet 20 mg PO DAILY Qty: 30 2RF furosemide 20 mg tablet 20 mg PO DAILY Qty: 90 1RF insulin lispro [Humalog KwikPen Insulin] 100 unit/mL insulin pen 0 - 14 unit SQ TIDWMEAL Qty: 10 10RF Rx Instructions: Per home sliding scale If blood sugar 151-200 take 4 units short acting insulin If blood sugar 200-250 take 8 units short acting insulin If blood sugar 251-300 take 12 units short acting insulin If blood sugar 301-350 take 14 units short acting insulin If blood sugar greater than 350 take 14 units insulin and call physician for further instructions. insulin glargine [Lantus Solostar U-100 Insulin] 100 unit/mL (3 mL) insulin pen 30 unit SQ BID Qty: 10 10RF cholecalciferol (vitamin D3) 1,250 mcg (50,000 unit) capsule 50,000 unit PO WEEKLY clonazepam 1 MG tablet 1 mg PO TIDP PRN (Reason: Anxiety) spironolactone 50 MG tablet 50 mg PO DAILY Referrals Follow up/Referrals: Lila Parekh APRN [Primary Care Provider] - See instructions Clinical Impressions Clinical Impression: DKA (diabetic ketoacidosis), Fall, Renal failure Print Language Print Language: Citizen Of [place] Discharge ED Provider: Jesus Dias General Adult HPI <Lila Parekh (ED), [place] - Last Filed: 07/25/24 14:46> General Chief complaint: Fall Stated complaint: weakness/fall Time Seen by Provider: 07/25/24 12:53 Mode of Arrival: EMS Source of Information: Patient Limitations: No Limitations Description of Symptoms (Recalled from ER Triage Doc. by RN): pt states she has felt good for the last week and has been suffering with generalized weakness, got dizzy today hit head on sink and passed out, hit right eyebrow area on sink/counter. pt betina blood thinners History of Present Illness HPI narrative: This is a 73-year-old female who arrived EMS after a fall. She told EMS that she hit the sink and then lost consciousness for an unknown amount of time. Patient is on no blood thinners. Patient did not initially complain of neck pain per EMS. Patient is alert and oriented x 4. Patient complains of back pain and bilateral knee pain. Patient does complain of weakness over the past week. She relates this to diarrhea over the past 2 days. She is not sure what this is from. Patient does have history of diabetes where she is noncompliant with her insulin. She tells that she has had glucose because she drinks soft drinks and does not take her insulin. She also has a history of renal failure, CLL, hypertension, hyperlipidemia. Patient does have history of falls. Patient denies any other symptoms at this time. Related Data Home Medications ?Medication ?Instructions ?Recorded ?Confirmed clonazepam 1 mg tablet 1 mg PO TIDP PRN Anxiety 03/17/20 03/09/24 spironolactone 50 mg tablet 50 mg PO DAILY 03/17/20 02/10/24 gabapentin 400 mg capsule 400 mg PO TID 09/14/20 03/09/24 levothyroxine 88 mcg tablet 88 mcg PO DAILY 10/15/21 02/10/24 cholecalciferol (vitamin D3) 1,250 50,000 unit PO WEEKLY 01/06/24 03/09/24 mcg (50,000 unit) capsule dapagliflozin propanediol 10 mg 10 mg PO DAILY 03/09/24 03/09/24 tablet (Farxiga) Previous Rx's ?Medication ?Instructions ?Recorded insulin glargine 100 unit/mL (3 30 unit (0.3 mL) SQ BID Diabetes 12/14/22 mL) subcutaneous pen (Lantus #10 mL Solostar U-100 Insulin) insulin lispro 100 unit/mL 0 - 14 unit (0 - 0.14 mL) SQ 12/14/22 subcutaneous pen (Humalog KwikPen TIDWMEAL Diabetes #10 mL (U-100) Insulin) lisinopril 20 mg tablet 20 mg PO DAILY #30 tabs 01/20/24 hydrocodone 5 mg-acetaminophen 325 1 tab PO Q8H PRN pain #90 tabs 06/14/24 mg tablet furosemide 20 mg tablet 20 mg PO DAILY #90 tabs 07/02/24 Allergies Allergy/AdvReac Type Severity Reaction Status Date / Time moxifloxacin Allergy Severe S-ANAPHYLAX Verified 06/14/24 11:05 IS Sulfa (Sulfonamide Allergy Mild NA-NAUSEA/V Verified 06/14/24 11:05 Antibiotics) OMITING PFSH <Lila Parekh (ED), [employer] - Last Filed: 07/25/24 14:46> PFS Disclaimer: The information contained in this section may have been updated after the patient was seen, as this information can be updated by other users. Medical History Neuropathy Osteopenia Onychodystrophy Callus of foot Pain of toe of right foot Fracture of second toe, right, closed Edema of toe Acquired hammer toe Closed rib fracture Fall Hyperglycemia due to type 2 diabetes mellitus Bacteremia due to Klebsiella pneumoniae UTI due to Klebsiella species Gram-negative bacteremia DKA (diabetic ketoacidoses) Hyperglycemia due to type 2 diabetes mellitus CLL (chronic lymphocytic leukemia) History of hypertension Diabetes mellitus Surgical History H/O lithotripsy History of cholecystectomy Family History Congestive heart failure (CHF) Heart disease Lymphoma Cancer Social History Smoking Status: Never smoker alcohol intake: never substance use type: denies use current occupational status: unemployed Travel in the last 8 weeks: None household members: none housing: house caffeine: Yes Have you lived/traveled outside US in past 30 days?: No Contact w/someone who lives/traveled outside US past 30 days?: No Exposure to someone with infectious disease in past 14 days?: No Do you have a fever (greater than 100.4 F or 38 C)?: No Have you tested positive for COVID-19: No Exposed to someone with COVID-19 in past 14 days?: No Do you have a sore throat?: No Do you have a cough?: No Do you have any weakness?: Yes Do you have any diarrhea?: No Are you experiencing any unusual bleeding?: No Do you have any muscle aches/pain?: No Do you have any abdominal pain?: No Are you experiencing loss of taste or smell?: No Other Medical History Have you received the Flu Vaccine for this season: No Have you received the Pneumonia Vaccine: No <Lila Kiljonatanmi (ED), [employer] AUDIT CLERK - Last Filed: 07/25/24 14:46> ROS Obtained: Yes Systems reviewed as appropriate & no additional complaints except as documented Constitutional Constitutional: Reports as per HPI Physical Exam <Lila Kilisaias (ED), [employer] AUDIT CLERK - Last Filed: 07/25/24 14:46> General General appearance: alert and anxious Head Head exam: normocephalic and other (Patient hit her right eyebrow on the sink) Eye Eye exam: Present normal appearance, PERRL and EOMI ENT ENT exam: Present mucous membranes moist Neck Neck exam: Present trachea midline and other (Patient arrived in c-collar) Chest Chest inspection: Present normal inspection Respiratory Respiratory exam: Present normal lung sounds bilaterally Cardiovascular Cardiovascular exam: Present normal rhythm, bradycardia, normal heart sounds, +S1 and +S2 Abdominal Exam Abdominal exam: Present soft and normal bowel sounds Extremities Exam Extremities exam: Present normal inspection, normal capillary refill and edema (To right knee) Neurological Exam Neurological exam: Present alert and oriented X3 Psychiatric Psychiatric exam: Present anxious Skin Skin exam: Present warm, dry and intact Medical Decision Making <[facility] ([facility]), [employer]VENUE AUDIT CLERK - Last Filed: 07/25/24 14:46> Medical Records Screening: Per USPSTF and CDC recommendations, given the prevalence of disease in our region, it is our hospital?s policy to screen for HIV and viral Hepatitis for all patients aged 18 and over and those with ongoing risk factors. Xu Inquiry Pt receiving controlled substance: No Xu was queried for this patient: No Vital Signs: 07/25/24 12:50 07/25/24 13:01 07/25/24 13:31 Temperature 98.1 F Temperature Source Oral Pulse Rate 56 L 58 L Pulse Rate [Left Radial] 57 L Respiratory Rate 14 11 L 12 Blood Pressure 122/61 143/46 H Blood Pressure [Right Arm] 138/46 L Blood Pressure Mean [Right Arm] 76 02 Sat by Pulse Oximetry 99 97 96 Oxygen Delivery Method Room Air Room Air Room Air 07/25/24 13:53 07/25/24 14:03 07/25/24 14:15 Temperature Temperature Source Pulse Rate 56 L 58 L Pulse Rate [Left Radial] Respiratory Rate 12 17 13 Blood Pressure 148/57 H 117/66 151/62 H Blood Pressure [Right Arm] Blood Pressure Mean [Right Arm] 02 Sat by Pulse Oximetry 99 99 Oxygen Delivery Method Room Air 07/25/24 14:30 07/25/24 14:45 07/25/24 15:00 Temperature 96.3 F L 97.0 F L 97.2 F L Temperature Source Pulse Rate 61 60 Pulse Rate [Left Radial] Respiratory Rate 15 17 11 L Blood Pressure 146/66 H 152/47 H 144/70 H Blood Pressure [Right Arm] Blood Pressure Mean [Right Arm] 02 Sat by Pulse Oximetry 100 98 Oxygen Delivery Method Lab Data Lab Results 07/25/24 12:45: WBC 18.9 H, RBC 3.64 L, Hgb 10.5 L, Hct 34.1 L, MCV 93.7, MCH 28.8, MCHC 30.8 L, RDW 14.7, Plt Count 307, MPV 10.5 H, Neut % (Auto) 38.7, L ymph % (Auto) 54.9 H, Bartholomew % (Auto) 3.8, Eos % (Auto) 2.0, Baso % (Auto) 0.3, Neut # (Auto) 7.3, Lymph # (Auto) 10.4 H, Bartholomew # (Auto) 0.7, Eos # (Auto) 0.4, Baso # (Auto) 0.1, Total Counted 100, Neutrophils % (Manual) 46, Lymphocytes % (Manual) 51 H, Monocytes % (Manual) 2, Eosinophils % (Manual) 1, Platelet Estimate Normal, Anisocytosis 1+, Macrocytosis 1+, Sodium 134 L, Potassium 6.2 H*, Chloride 103, Carbon Dioxide 17 L, Anion Gap 20.2 H, BUN 88 H, Creatinine 3.90 H, Estimated Creat Clear 16, Estimated GFR 11 L*, Est GFR ( Amer) 14 L*, Glucose 397 H, Hemoglobin A1c 12.1 H, Calcium 8.7, Phosphorus 6.3 H, M agnesium 2.5 H, Total Bilirubin 0.3, AST 22, ALT 19, Alkaline Phosphatase 110, Total Protein 7.2, Albumin 4.2, Globulin 3.0, Albumin/Globulin Ratio 1.4, Lipase 261 07/25/24 13:19: VBG pH 7.12 L, VBG pCO2 46.2, VBG pO2 42.8 H, VBG HCO3 14.6 L, V BG Total CO2 16.0 L, VBG O2 Saturation 69.1, VBG Base Excess -14.8 L, VBG Lactic Acid 2.4 H 07/25/24 14:24: Urine Color Yellow, Urine Appearance Cloudy, Urine pH 5.5, Ur Specific [place] 1.025, Urine Protein 2+ A, Urine Glucose (UA) 3+, Urine Ketones Negative, Urine Blood 2+ A, Urine Nitrate Negative, Urine Bilirubin Negative, Urine Urobilinogen 0.2, Ur Leukocyte Esterase 2+ A 07/25/24 12:45 07/25/24 12:45 Orders (Tests/Meds): ED MEDICATIONS Generic Name Dose Route Start Last Admin Trade Name Freq PRN Reason Stop Dose Admin Clonazepam 0.5 mg 07/25/24 14:50 Clonazepam 1mg Tablet PO 08/24/24 14:49 TIDP PRN Anxiety Dextrose 50 ml 07/25/24 14:46 Dextrose 50% 50ml Syringe (Crash Cart) IVP 08/24/24 14:45 NEEDED PRN Per Dka Protocol for FSBS </= 50 Calcium Gluconate/Sodium Chloride 2 gm in 100 mls @ 50 mls/hr 07/25/24 13:20 07/25/24 13:43 Calcium Gluconate 2,000mg/100ml Nacl Premix IV 07/25/24 15:19 50 mls/hr ONCE ONE Administration Insulin Human Regular 100 unit 101 mls @ 8.017 mls/hr 07/25/24 13:23 07/25/24 14:59 / Sodium Chloride IV 08/24/24 13:22 0.05 units/kg/hr .[id number] WILFREDO 4 mls/hr Titration Protocol 0.1 UNITS/KG/HR Sodium Chloride 1,000 mls @ 999 mls/hr 07/25/24 14:13 Sod Chlor 0.9% 1000ml Bag IV 07/25/24 15:13 .Q1H1M ONE Cefepime HCl 1 gm/ Sodium 50 mls @ 100 mls/hr 07/25/24 15:00 07/25/24 15:01 Chloride IV 08/04/24 14:59 100 mls/hr Q12H WILFREDO Administration Insulin Glargine 15 unit 07/25/24 21:00 Insulin Glargine 100 Units/Ml 3ml Flexpen SUBCUT 08/24/24 20:59 BID WILFREDO Levothyroxine Sodium 88 mcg 07/26/24 07:00 Levothyroxine 88mcg (0.088mg) Tab PO 08/25/24 06:59 DAILYDM WILFREDO Discontinued Medications Generic Name Dose Route Start Last Admin Trade Name Freq PRN Reason Stop Dose Admin Sodium Chloride 1,000 mls @ 999 mls/hr 07/25/24 12:55 07/25/24 13:42 Sod Chlor 0.9% 1000ml Bag IV 07/25/24 13:55 999 mls/hr .Q1H1M ONE Administration Insulin Human Regular 10 unit 07/25/24 13:20 07/25/24 13:43 Insulin Human Regular 100 Units/Ml 10ml Vial IV 07/25/24 13:21 10 unit ONCE ONE Administration ORDERS Category Date Time Status CT bony pelvis Stat Cat Scan 07/25/24 12:[address] cervical spine wo con Stat Cat Scan 07/25/24 12:[address] head/brain wo con Stat Cat Scan 07/25/24 12:[address] lumbar spine wo con Stat Cat Scan 07/25/24 12:[address] thoracic spine wo con Stat Cat Scan 07/25/24 12:55 Completed Nutrition Consult [CONS] Routine Cons 07/25/24 14:46 Active XR chest portable Stat Exams 07/25/24 12:55 Completed XR knee LT 3V Stat Exams 07/25/24 12:57 Completed XR knee RT 3V Stat Exams 07/25/24 12:57 Completed Acetone, Serum (Rapid) Stat Lab 07/25/24 12:45 Results Basic Metabolic Panel Q4H Lab 07/25/24 15:00 Ordered Basic Metabolic Panel Q4H Lab 07/25/24 19:00 Ordered Basic Metabolic Panel Q4H Lab 07/25/24 23:00 Ordered Basic Metabolic Panel Q4H Lab 07/26/24 03:00 Ordered Basic Metabolic Panel Q4H Lab 07/26/24 07:00 Ordered Basic Metabolic Panel Q4H Lab 07/26/24 11:00 Ordered CBC [Complete Blood Count Auto Diff] Stat Lab 07/25/24 12:45 Completed Comprehensive Metabolic Panel Stat Lab 07/25/24 12:45 Completed Diarrhea 23 Panel, PCR Stat Lab 07/25/24 13:11 Ordered Hemoglobin A1C Stat Lab 07/25/24 12:45 Completed Lipase Stat Lab 07/25/24 12:45 Completed Magnesium Q4H Lab 07/25/24 15:00 Ordered Magnesium Q4H Lab 07/25/24 19:00 Ordered Magnesium Q4H Lab 07/25/24 23:00 Ordered Magnesium Q4H Lab 07/26/24 03:00 Ordered Magnesium Q4H Lab 07/26/24 07:00 Ordered Magnesium Q4H Lab 07/26/24 11:00 Ordered Magnesium Stat Lab 07/25/24 12:45 Completed Phosphorous Q4H Lab 07/25/24 15:00 Ordered Phosphorous Q4H Lab 07/25/24 19:00 Ordered Phosphorous Q4H Lab 07/25/24 23:00 Ordered Phosphorous Q4H Lab 07/26/24 03:00 Ordered Phosphorous Q4H Lab 07/26/24 07:00 Ordered Phosphorous Q4H Lab 07/26/24 11:00 Ordered Phosphorous Stat Lab 07/25/24 12:45 Results Uric Acid Stat Lab 07/25/24 14:54 Ordered Urinalysis and Microscopic Stat Lab 07/25/24 14:24 Results Blood Culture Stat Micro 07/25/24 14:17 Received Urine Culture Stat Micro 07/25/24 14:24 Received VBG [Venous Blood Gas] Stat RT 07/25/24 13:19 Completed Medical Decision Narrative: Insert review patient is a 73-year-old female presenting to the emergency department for evaluation of fall into her sink with loss of consciousness for an unknown amount of time prior to arrival. Patient was brought in by EMS with c-collar intact. Patient also complains of weakness over the past week and diarrhea over the past 2 days. Patient is hemodynamically stable and nontoxic- appearing upon arrival, afebrile. Differential diagnosis includes septic, DKA, fractures related to fall, among others. Workup will be conducted with hematologic labs, specific imaging including CT scans for trauma protocol. Initial inventions include crystalloid bolus, CT scans. Initial workup reviewed by me potassium was 6.2, glucose was 397, white count 18, BUN 88, creatinine 3.90. Discussed with Dr. Dias and we started an insulin drip, gave 2 g of calcium gluconate and started 2 L of fluid. Imaging informally interpreted by me and remarkable for nothing acute. Formal imaging read remarkable see radiology report. Checked on patient and updated her on labs. Patient asked for a meal tray. Patient eating well. Had an interactive discussion with hospitalist Dr. Paulino who agreed to take the patient to the ICU but currently does not had the staff to staff the ICU so we we will be holding patient in the ER for further this moment. <Jesus Dias MD - Last Filed: 07/25/24 15:12> Vital Signs: 07/25/24 12:50 07/25/24 13:01 07/25/24 13:31 Temperature 98.1 F Temperature Source Oral Pulse Rate 56 L 58 L Pulse Rate [Left Radial] 57 L Respiratory Rate 14 11 L 12 Blood Pressure 122/61 143/46 H Blood Pressure [Right Arm] 138/46 L Blood Pressure Mean [Right Arm] 76 02 Sat by Pulse Oximetry 99 97 96 Oxygen Delivery Method Room Air Room Air Room Air 07/25/24 13:53 07/25/24 14:03 07/25/24 14:15 Temperature Temperature Source Pulse Rate 56 L 58 L Pulse Rate [Left Radial] Respiratory Rate 12 17 13 Blood Pressure 148/57 H 117/66 151/62 H Blood Pressure [Right Arm] Blood Pressure Mean [Right Arm] 02 Sat by Pulse Oximetry 99 99 Oxygen Delivery Method Room Air 07/25/24 14:30 07/25/24 14:45 07/25/24 15:00 Temperature 96.3 F L 97.0 F L 97.2 F L Temperature Source Pulse Rate 61 60 Pulse Rate [Left Radial] Respiratory Rate 15 17 11 L Blood Pressure 146/66 H 152/47 H 144/70 H Blood Pressure [Right Arm] Blood Pressure Mean [Right Arm] 02 Sat by Pulse Oximetry 100 98 Oxygen Delivery Method Lab Data Lab Results 07/25/24 12:45: WBC 18.9 H, RBC 3.64 L, Hgb 10.5 L, Hct 34.1 L, MCV 93.7, MCH 28.8, MCHC 30.8 L, RDW 14.7, Plt Count 307, MPV 10.5 H, Neut % (Auto) 38.7, L ymph % (Auto) 54.9 H, Bartholomew % (Auto) 3.8, Eos % (Auto) 2.0, Baso % (Auto) 0.3, Neut # (Auto) 7.3, Lymph # (Auto) 10.4 H, Bartholomew # (Auto) 0.7, Eos # (Auto) 0.4, Baso # (Auto) 0.1, Total Counted 100, Neutrophils % (Manual) 46, Lymphocytes % (Manual) 51 H, Monocytes % (Manual) 2, Eosinophils % (Manual) 1, Platelet Estimate Normal, Anisocytosis 1+, Macrocytosis 1+, Sodium 134 L, Potassium 6.2 H*, Chloride 103, Carbon Dioxide 17 L, Anion Gap 20.2 H, BUN 88 H, Creatinine 3.90 H, Estimated Creat Clear 16, Estimated GFR 11 L*, Est GFR ( Amer) 14 L*, Glucose 397 H, Hemoglobin A1c 12.1 H, Calcium 8.7, Phosphorus 6.3 H, M agnesium 2.5 H, Total Bilirubin 0.3, AST 22, ALT 19, Alkaline Phosphatase 110, Total Protein 7.2, Albumin 4.2, Globulin 3.0, Albumin/Globulin Ratio 1.4, Lipase 261 07/25/24 13:19: VBG pH 7.12 L, VBG pCO2 46.2, VBG pO2 42.8 H, VBG HCO3 14.6 L, V BG Total CO2 16.0 L, VBG O2 Saturation 69.1, VBG Base Excess -14.8 L, VBG Lactic Acid 2.4 H 07/25/24 14:24: Urine Color Yellow, Urine Appearance Cloudy, Urine pH 5.5, Ur Specific [place] 1.025, Urine Protein 2+ A, Urine Glucose (UA) 3+, Urine Ketones Negative, Urine Blood 2+ A, Urine Nitrate Negative, Urine Bilirubin Negative, Urine Urobilinogen 0.2, Ur Leukocyte Esterase 2+ A Orders (Tests/Meds): ED MEDICATIONS Generic Name Dose Route Start Last Admin Trade Name Freq PRN Reason Stop Dose Admin Clonazepam 0.5 mg 07/25/24 14:50 Clonazepam 1mg Tablet PO 08/24/24 14:49 TIDP PRN Anxiety Dextrose 50 ml 07/25/24 14:46 Dextrose 50% 50ml Syringe (Crash Cart) IVP 08/24/24 14:45 NEEDED PRN Per Dka Protocol for FSBS </= 50 Calcium Gluconate/Sodium Chloride 2 gm in 100 mls @ 50 mls/hr 07/25/24 13:20 07/25/24 13:43 Calcium Gluconate 2,000mg/100ml Nacl Premix IV 07/25/24 15:19 50 mls/hr ONCE ONE Administration Insulin Human Regular 100 unit 101 mls @ 8.017 mls/hr 07/25/24 13:23 07/25/24 14:59 / Sodium Chloride IV 08/24/24 13:22 0.05 units/kg/hr .[id number] WILFREDO 4 mls/hr Titration Protocol 0.1 UNITS/KG/HR Sodium Chloride 1,000 mls @ 999 mls/hr 07/25/24 14:13 Sod Chlor 0.9% 1000ml Bag IV 07/25/24 15:13 .Q1H1M ONE Cefepime HCl 1 gm/ Sodium 50 mls @ 100 mls/hr 07/25/24 15:00 07/25/24 15:01 Chloride IV 08/04/24 14:59 100 mls/hr Q12H WILFREDO Administration Insulin Glargine 15 unit 07/25/24 21:00 Insulin Glargine 100 Units/Ml 3ml Flexpen SUBCUT 08/24/24 20:59 BID WILFREDO Levothyroxine Sodium 88 mcg 07/26/24 07:00 Levothyroxine 88mcg (0.088mg) Tab PO 08/25/24 06:59 DAILYDM WILFREDO Discontinued Medications Generic Name Dose Route Start Last Admin Trade Name Freq PRN Reason Stop Dose Admin Sodium Chloride 1,000 mls @ 999 mls/hr 07/25/24 12:55 07/25/24 13:42 Sod Chlor 0.9% 1000ml Bag IV 07/25/24 13:55 999 mls/hr .Q1H1M ONE Administration Insulin Human Regular 10 unit 07/25/24 13:20 07/25/24 13:43 Insulin Human Regular 100 Units/Ml 10ml Vial IV 07/25/24 13:21 10 unit ONCE ONE Administration ORDERS Category Date Time Status CT bony pelvis Stat Cat Scan 07/25/24 12:[address] cervical spine wo con Stat Cat Scan 07/25/24 12:[address] head/brain wo con Stat Cat Scan 07/25/24 12:[address] lumbar spine wo con Stat Cat Scan 07/25/24 12:[address] thoracic spine wo con Stat Cat Scan 07/25/24 12:55 Completed Nutrition Consult [CONS] Routine Cons 07/25/24 14:46 Active XR chest portable Stat Exams 07/25/24 12:55 Completed XR knee LT 3V Stat Exams 07/25/24 12:57 Completed XR knee RT 3V Stat Exams 07/25/24 12:57 Completed Acetone, Serum (Rapid) Stat Lab 07/25/24 12:45 Results Basic Metabolic Panel Q4H Lab 07/25/24 15:00 Ordered Basic Metabolic Panel Q4H Lab 07/25/24 19:00 Ordered Basic Metabolic Panel Q4H Lab 07/25/24 23:00 Ordered Basic Metabolic Panel Q4H Lab 07/26/24 03:00 Ordered Basic Metabolic Panel Q4H Lab 07/26/24 07:00 Ordered Basic Metabolic Panel Q4H Lab 07/26/24 11:00 Ordered CBC [Complete Blood Count Auto Diff] Stat Lab 07/25/24 12:45 Completed Comprehensive Metabolic Panel Stat Lab 07/25/24 12:45 Completed Diarrhea 23 Panel, PCR Stat Lab 07/25/24 13:11 Ordered Hemoglobin A1C Stat Lab 07/25/24 12:45 Completed Lipase Stat Lab 07/25/24 12:45 Completed Magnesium Q4H Lab 07/25/24 15:00 Ordered Magnesium Q4H Lab 07/25/24 19:00 Ordered Magnesium Q4H Lab 07/25/24 23:00 Ordered Magnesium Q4H Lab 07/26/24 03:00 Ordered Magnesium Q4H Lab 07/26/24 07:00 Ordered Magnesium Q4H Lab 07/26/24 11:00 Ordered Magnesium Stat Lab 07/25/24 12:45 Completed Phosphorous Q4H Lab 07/25/24 15:00 Ordered Phosphorous Q4H Lab 07/25/24 19:00 Ordered Phosphorous Q4H Lab 07/25/24 23:00 Ordered Phosphorous Q4H Lab 07/26/24 03:00 Ordered Phosphorous Q4H Lab 07/26/24 07:00 Ordered Phosphorous Q4H Lab 07/26/24 11:00 Ordered Phosphorous Stat Lab 07/25/24 12:45 Results Uric Acid Stat Lab 07/25/24 14:54 Ordered Urinalysis and Microscopic Stat Lab 07/25/24 14:24 Results Blood Culture Stat Micro 07/25/24 14:17 Received Urine Culture Stat Micro 07/25/24 14:24 Received VBG [Venous Blood Gas] Stat RT 07/25/24 13:19 Completed ECG Data Tracing #1: I reviewed this ECG and interpreted as documented below: (Sinus bradycardia 56 bpm with NH interval 152, QRS 118, QTc 445. T waves are mildly peaked and symmetric as compared to previous EKGs in the system. Leftward axis) Medical Decision Narrative: Insert review patient is a 73-year-old female presenting to the emergency department for evaluation of fall into her sink with loss of consciousness for an unknown amount of time prior to arrival. Patient was brought in by EMS with c-collar intact. Patient also complains of weakness over the past week and diarrhea over the past 2 days. Patient is hemodynamically stable and nontoxic- appearing upon arrival, afebrile. Differential diagnosis includes septic, DKA, fractures related to fall, among others. Workup will be conducted with hematologic labs, specific imaging including CT scans for trauma protocol. Initial inventions include crystalloid bolus, CT scans. Initial workup reviewed by me potassium was 6.2, glucose was 397, white count 18, BUN 88, creatinine 3.90. Discussed with Dr. Dias and we started an insulin drip, gave 2 g of calcium gluconate and started 2 L of fluid. Imaging informally interpreted by me and remarkable for nothing acute. Formal imaging read remarkable see radiology report. Checked on patient and updated her on labs. Patient asked for a meal tray. Patient eating well. Had an interactive discussion with hospitalist Dr. Paulino who agreed to take the patient to the ICU but currently does not had the staff to staff the ICU so we we will be holding patient in the ER for further this moment. I was consulted by the CHARLA, and we discussed the complexity of the problems being addressed. I approved the treatment and management plan for this patient's care in the Emergency Department, thus performing a substantive portion of the medical decision making. Patient very well-appearing. Trauma scans were negative, however patient has peaked T waves on her EKG is compared to previous. 2 g calcium gluconate were administered. Also got placed on insulin drip and got sepsis fluid bolus. Patient also on RANDY and CKD with near acute renal failure. Anderson was placed, patient producing urine. Because patient high risk for clinical decompensation, deemed appropriate for inpatient admission. Results were relayed to patient who voiced understanding and patient was agreeable to inpatient admission and management. Patient was admitted to the hospital for further definitive management. Jesus Dias MD Critical Care <Jesus Dias MD - Last Filed: 07/25/24 15:12> Critical Care Time Critical Care Time: Yes (metabolic) Attestation: On 07/25/24, the high probability of a clinically significant, sudden or life threatening deterioration of the following system(s) required my full and direct attention, intervention and personal management. The time I documented below is in addition to time spent performing reported procedures but includes the following listed in this critical care notation. Total Time Total Critical Care Time: 45
[2024-07-25 13:09] LABS: Basophils # 0.1 K/mm3 (0-0.2); Basophils % 0.3 % (0.1-2.0); Eosinophils # 0.4 K/mm3 (0.0-0.4); Hematocrit 34.1 % (37.0-47.0); Hemoglobin 10.5 g/dL (12.2-16.2); Lymphocytes # 10.4 K/mm3 (0.7-4.5); Lymphocytes % 54.9 % (10-50); Mean Corpuscular HGB Conc 30.8 g/dL (31.8-35.4); Mean Corpuscular Hemoglobin 28.8 pg (27.0-31.2); Mean Corpuscular Volume 93.7 fl (81-99); Mean Platelet Volume 10.5 fl (7.4-10.4); Monocytes # 0.7 K/mm3 (0.1-1.0); Monocytes % 3.8 % (1.7-9.3); Neutrophils # 7.3 K/mm3 (1.8-7.8); Neutrophils % 38.7 % (37.0-80.0); Platelet Count 307 K/mm3 (142-424); Red Blood Count 3.64 M/mm3 (4.20-5.40); Red Cell Distribution Width 14.7 % (11.5-17.5); White Blood Count 18.9 K/mm3 (4.8-10.8)
[2024-07-25 13:11] LABS: Albumin Level 4.2 g/dl (3.5-5.0); Chloride 103 mmol/L (98-107); MANUAL DIFFERENTIAL MANUAL DIFFERENTIAL (MANUAL DIFF); Sodium 134 mmol/L (136-145)
[2024-07-25 13:13] LABS: Creatinine Clearance Estimated 16 mL/min (50-200); Estimated Glomerular Filt Rate 11 ml/min (>60); GFR (African American) 14 ML/MIN (>60)
[2024-07-25 13:14] LABS: Alanine Aminotransferase 19 U/L (12-78); Albumin/Globulin Ratio 1.4 (1.1-1.8); Alkaline Phosphatase 110 U/L (38-126); Anion Gap 20.2 mEq/L (5-15); Aspartate Amino Transferase 22 U/L (14-36); Bilirubin,Total 0.3 mg/dl (0.2-1.3); Carbon Dioxide 17 mmol/L (22.0-30.0); Glucose 397 mg/dl (74-100); Lipase 261 U/L (23-300); Total Protein,Serum 7.2 g/dl (6.3-8.2)
[2024-07-25 13:15] LABS: Calcium 8.7 mg/dl (8.4-10.2)
[2024-07-25 13:16] LABS: Blood Urea Nitrogen 88 mg/dl (7-17); Potassium 6.2 mmoL/L (3.5-5.1)
--- NOTE | 2024-07-25 13:17 | PC.NURSE ---
Lila Mead APRN notified of critical potassium & BUN as well as GFR & creatinine.
[2024-07-25 13:21] LABS: Anisocytosis 1+; Eosinophils % 1 % (0-3); Lymphocytes % 51 % (10-50); Macrocytosis 1+; Monocytes % 2 % (2-9); Neutrophils % 46 % (42-76); Platelet Estimate Normal; Total Cells Counted 100
[2024-07-25 13:25] LABS: VBG Base Excess -14.8 mmol/L (-2.4-2.3); VBG HCO3 14.6 mmol/L (23-30); VBG Oxygen Saturation 69.1 % (50-70); VBG PCO2 46.2 mmol/L (35-51); VBG PO2 42.8 mmol/L (28-40)
[2024-07-25 13:27] LABS: Lactate Venous 2.4 mmol/L (0.4-2.0); VBG PH 7.12 mmol/L (7.31-7.41)
[2024-07-25 13:29] LABS: Magnesium 2.5 mg/dl (1.6-2.3)
[2024-07-25] MEDS: INSULIN REGULAR, HUMAN 100 UNIT in 0.9 % SODIUM CHLORIDE 100 ML 8.02 UNIT IV (13:42)
[2024-07-25] MEDS: 0.9 % SODIUM CHLORIDE 1000ML 1,000 ML 999 ML IV ×2 (13:42→15:27)
[2024-07-25] MEDS: INSULIN HUMAN REGULAR 100 UNITS/ML 10ML VIAL 10 UNIT IV (13:43)
[2024-07-25] MEDS: CALCIUM GLUC IN NACL, ISO-OSM 2 GM/100 ML BAG IV (13:43)
--- NOTE | 2024-07-25 13:50 | PC.NURSE ---
fingerstick glucose 384 at 1347. nurse aware.
--- NOTE | 2024-07-25 14:08 | PC.NURSE ---
MARK SPEAKING WITH DR IBARRA FOR ADMISSION
[2024-07-25 14:24] LABS: Phosphorous 6.3 mg/dl (2.5-4.5)
[2024-07-25 14:31] LABS: Microscopic, Urine URINE MICROSCOPIC (MICROSCOPIC)
[2024-07-25 14:39] LABS: Appearance,Urine CLOUDY (Clear); Bilirubin,Urine Negative (Negative); Blood, Urine 2+ (Negative); Color,Urine YELLOW (Yellow); Glucose,Urine (UA) 3+ (Negative); Ketones,Urine Negative (Negative); Leukocyte Esterase,Urine 2+ (Negative); Nitrate,Urine Negative (Negative); PH,Urine 5.5 (5.0-8.5); Protein,Urine 2+ (Negative); Specific Gravity, Urine 1.025 (1.005-1.030); Urobilinogen,Urine 0.2 EU/dl (0.2)
--- NOTE | 2024-07-25 14:45 | PC.NURSE ---
gill speaking with dr stevenson for admission
--- NOTE | 2024-07-25 14:51 | PC.NURSE ---
FSBS is 209 @2544.
--- NOTE | 2024-07-25 14:52 | P.HP_ITS ---
History of Present Illness *Admission Date: 07/25/24 *Reason for visit:: falls, confusion *History of present illness: Ms. Davis is a 73-year-old female with history of diabetes that is poorly controlled, neuropathy, hypertension, hyperlipidemia, CLL, anxiety disorder, and CKD 4 at baseline. She presented to the ER due to having worsening generalized weakness over the past week. She got dizzy today, fell and hit her head and passed out at home. Not on any blood thinners. Is back to baseline consciousness in the ER. Patient denies any fever. Has had some abdominal discomfort. Has bad neuropathy and cannot feel her feet and is losing sensation in her hands. She is alert and oriented x 4. Workup in the ER concerning for DKA, severe sepsis, acute renal failure, and urinary tract infection. Also found to have hyperkalemia likely secondary to DKA. Initiated on insulin an tibiotics in the ER. Blood and urine cultures obtained. Medicine consulted for admission and further management. Patient admitted to the ICU for further care. Tolerating insulin drip. Able to answer questions. Denies any shortness of breath, chest pain, diarrhea. Has occasional flank pain and knows she has got a history of stones but no significant pain at this time. Denies any blood in her urine. States she knows she needs to do better with her diabetes. A1c today in the ER of 12. Noted to have a white count of 18, hypothermic with body temperature 96.3. Multiorgan dysfunction. Urinary tract infection. Meeting severe sepsis criteria. [facility] Disclaimer: The information contained in this section may have been updated after the patient was seen, as this information can be updated by other users. Medical History Neuropathy Osteopenia Onychodystrophy Callus of foot Pain of toe of right foot Fracture of second toe, right, closed Edema of toe Acquired hammer toe Closed rib fracture Fall Hyperglycemia due to type 2 diabetes mellitus Bacteremia due to Klebsiella pneumoniae UTI due to Klebsiella species Gram-negative bacteremia DKA (diabetic ketoacidoses) Hyperglycemia due to type 2 diabetes mellitus CLL (chronic lymphocytic leukemia) History of hypertension Diabetes mellitus Surgical History H/O lithotripsy History of cholecystectomy Family History Congestive heart failure (CHF) Heart disease Lymphoma Cancer Social History Smoking Status: Never smoker alcohol intake: never substance use type: denies use current occupational status: unemployed Travel in the last 8 weeks: None household members: none housing: house caffeine: Yes Have you lived/traveled outside US in past 30 days?: No Contact w/someone who lives/traveled outside US past 30 days?: No Exposure to someone with infectious disease in past 14 days?: No Do you have a fever (greater than 100.4 F or 38 C)?: No Have you tested positive for COVID-19: No Exposed to someone with COVID-19 in past 14 days?: No Do you have a sore throat?: No Do you have a cough?: No Do you have any weakness?: Yes Do you have any diarrhea?: No Are you experiencing any unusual bleeding?: No Do you have any muscle aches/pain?: No Do you have any abdominal pain?: No Are you experiencing loss of taste or smell?: No Other Medical History Have you received the Flu Vaccine for this season: No Have you received the Pneumonia Vaccine: No Review of Systems Review of Systems Review of systems (narrative): 14 point review of systems performed, pertinent positives and negatives as per HPI Meds Home Medications and Allergies Home Medications ?Medication ?Instructions ?Recorded ?Confirmed ?Type clonazepam 1 mg tablet 1 mg PO TIDP PRN Anxiety 03/17/20 07/25/24 History spironolactone 50 mg tablet 50 mg PO DAILY 03/17/20 07/25/24 History gabapentin 400 mg capsule 400 mg PO TID 09/14/20 07/25/24 History levothyroxine 88 mcg tablet 88 mcg PO DAILY 10/15/21 02/10/24 History insulin glargine 100 unit/mL (3 30 unit (0.3 mL) SQ BID Diabetes 12/14/22 02/10/24 Rx mL) subcutaneous pen (Lantus #10 mL Solostar U-100 Insulin) insulin lispro 100 unit/mL 0 - 14 unit (0 - 0.14 mL) SQ 12/14/22 02/10/24 Rx subcutaneous pen (Humalog KwikPen TIDWMEAL Diabetes #10 mL (U-100) Insulin) cholecalciferol (vitamin D3) 1,250 50,000 unit PO WEEKLY 01/06/24 03/09/24 History mcg (50,000 unit) capsule lisinopril 20 mg tablet 20 mg PO DAILY #30 tabs 01/20/24 07/25/24 Rx dapagliflozin propanediol 10 mg 10 mg PO DAILY 03/09/24 07/25/24 History tablet (Farxiga) hydrocodone 5 mg-acetaminophen 325 1 tab PO Q8H PRN pain #90 tabs 06/14/24 06/14/24 Rx mg tablet furosemide 20 mg tablet 20 mg PO DAILY #90 tabs 07/02/24 07/25/24 Rx New Prescriptions to Start Prescriptions: Allergies Allergy/AdvReac Type Severity Reaction Status Date / Time moxifloxacin Allergy Severe S-ANAPHYLAX Verified 06/14/24 11:05 IS Sulfa (Sulfonamide Allergy Mild NA-NAUSEA/V Verified 06/14/24 11:05 Antibiotics) OMITING Exam Data for Last 24 hours Vital signs and Labs for Last 24 Hours: Temp Pulse Resp BP Pulse Ox O2 Del Method 98.1 F 58 L 13 151/62 H 99 Room Air 07/25/24 12:50 07/25/24 14:03 07/25/24 14:15 07/25/24 14:15 07/25/24 14:03 07/25/24 13:53 Laboratory Results - last 24 hr 07/25/24 12:45: WBC 18.9 H, RBC 3.64 L, Hgb 10.5 L, Hct 34.1 L, MCV 93.7, MCH 28.8, MCHC 30.8 L, RDW 14.7, Plt Count 307, MPV 10.5 H, Neut % (Auto) 38.7, Lymph % (Auto) 54.9 H, Wetzel % (Auto) 3.8, Eos % (Auto) 2.0, Baso % (Auto) 0.3, Neut # (Auto) 7.3, Lymph # (Auto) 10.4 H, Wetzel # (Auto) 0.7, Eos # (Auto) 0.4, Baso # (Auto) 0.1, Total Counted 100, Neutrophils % (Manual) 46, Lymphocytes % (Manual) 51 H, Monocytes % (Manual) 2, Eosinophils % (Manual) 1, Platelet Estimate Normal, Anisocytosis 1+, Macrocytosis 1+, Sodium 134 L, Potassium 6.2 H*, Chloride 103, Carbon Dioxide 17 L, Anion Gap 20.2 H, BUN 88 H, Creatinine 3.90 H, Estimated Creat Clear 16, Estimated GFR 11 L*, Est GFR ( Amer) 14 L*, Glucose 397 H, Calcium 8.7, Phosphorus 6.3 H, Magnesium 2.5 H, Total Bilirubin 0.3, AST 22, ALT 19, Alkaline Phosphatase 110, Total Protein 7.2, Albumin 4.2, Globulin 3.0, Albumin/Globulin Ratio 1.4, Lipase 261 07/25/24 13:19: VBG pH 7.12 L, VBG pCO2 46.2, VBG pO2 42.8 H, VBG HCO3 14.6 L, VBG Total CO2 16.0 L, VBG O2 Saturation 69.1, VBG Base Excess -14.8 L, VBG L actic Acid 2.4 H 07/25/24 14:24: Urine Color Yellow, Urine Appearance Cloudy, Urine pH 5.5, Ur Specific Victor 1.025, Urine Protein 2+ A, Urine Glucose (UA) 3+, Urine Ketones Negative, Urine Blood 2+ A, Urine Nitrate Negative, Urine Bilirubin Negative, Urine Urobilinogen 0.2, Ur Leukocyte Esterase 2+ A I & O for Last 24 hours: Intake & Output 07/22/24 07/23/24 07/24/24 07/25/24 23:59 23:59 23:59 23:59 Weight 79.379 kg Constitutional Constitutional: mild distress, average body habitus and chronically ill appearing *Routine HEENT Exam Head: Present normocephalic Eye: Present normal accommodation ENT: Present mucous membranes dry *Routine Neck Exam Neck: Present trachea midline *Routine Respiratory Exam Respiratory: Present CTA bilaterally; Absent respiratory distress, rhonchi, wheezes or crackles *Routine Cardiovascular Exam Cardiovascular: Present RRR, Normal S1 and Normal S2 *Routine Abdominal Exam Abdominal: Present soft and normoactive bowel sounds; Absent tenderness *Routine Rectal Exam Rectal:: deferred *Routine Genitalia Exam Genitalia:: deferred *Routine Extremities Exam Extremities: Present edema (Trace); Absent cyanosis or clubbing Comments: Decree sensation in light *Routine Neurological Exam Neurological: Present alert, oriented X3, CN II-XII intact, sensory deficit and moving all extremities; Absent altered mental status Routine Psychiatric Exam Psychiatric: Present normal affect Assessment and Plan *Assessment and plan (1) High anion gap metabolic acidosis: Status: Acute Category: Medical Code(s): E87.29 - Other acidosis (2) Renal failure: Status: Acute Qualifiers: Renal failure chronicity: acute on chronic Chronic kidney disease stage: stage 4 (GFR 15-29) Acute renal failure type: unspecified Qualified Code(s): N17.9 - Acute kidney failure, unspecified; N18.4 - Chronic kidney disease, stage 4 (severe) Category: Medical Code(s): N19 - Unspecified kidney failure (3) DKA (diabetic ketoacidosis): Status: Acute Qualifiers: Diabetes mellitus type: type 2 Diabetes mellitus complication detail: without coma Qualified Code(s): E11.10 - Type 2 diabetes mellitus with ketoacid osis without coma Category: Medical Code(s): E11.10 - Type 2 diabetes mellitus with ketoacidosis without coma (4) Falls frequently: Status: Acute Category: Medical Code(s): R29.6 - Repeated falls (5) Hyperlipidemia: Status: Chronic Qualifiers: Hyperlipidemia type: mixed hyperlipidemia Qualified Code(s): E78.2 - Mixed hyperlipidemia Category: Medical Code(s): E78.5 - Hyperlipidemia, unspecified (6) Hypertension: Status: Chronic Qualifiers: Hypertension type: primary hypertension Qualified Code(s): I10 - Essential (primary) hypertension Category: Medical Code(s): I10 - Essential (primary) hypertension (7) 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 Qualifiers: Diabetes mellitus long term care social worker insulin use: with jail use Qualified C ode(s): E11.42 - Type 2 diabetes mellitus with diabetic polyneuropathy; Z79.4 - retirement (current) use of insulin Category: Medical Code(s): E11.42 - Type 2 diabetes mellitus with diabetic polyneuropathy (8) Anxiety disorder: Status: Chronic Qualifiers: Anxiety disorder type: generalized anxiety disorder Qualified Code(s): F41.1 - Generalized anxiety disorder Category: Medical Code(s): F41.9 - Anxiety disorder, unspecified (9) CKD (chronic kidney disease): Status: Chronic Qualifiers: Chronic kidney disease stage: stage 4 (GFR 15-29) Qualified Code(s): N18.4 - Chronic kidney disease, stage 4 (severe) Category: Medical Code(s): N18.9 - Chronic kidney disease, unspecified (10) CLL (chronic lymphocytic leukemia): Status: Chronic Category: Medical Code(s): C91.10 - Chronic lymphocytic leukemia of B-cell type not having achieved remission (11) Hyperkalemia: Status: Acute Category: Medical Code(s): E87.5 - Hyperkalemia Plan 73-year-old female multiple comorbidities including CLL and uncontrolled diabetes. Presents with DKA, severe sepsis, UTI. Medicine consulted for admission. Discussed case with ER physician, request admission for further treatment of her high anion gap metabolic acidosis, acute on chronic renal failure, and DKA. I agreed to admit to the ICU for further care. Patient condition tenuous. Has severe sepsis with hypothermia (96.3), leukocytosis of 18, organ dysfunction with renal failure, and grossly abnormal urine consistent with UTI. Cultures pending. On antibiotics and DKA protocol. Problems addressed as follows: Severe sepsis UTI Acute renal failure CKD 4 -Severe sepsis with hypothermia, leukocytosis, organ dysfunction. Initiated on cefepime 1 g twice daily renally dosed, blood and urine cultures pending -Urinalysis grossly abnormal with leuk esterase, nitrate positive, 4+ bacteria. Culture pending. Cefepime as above, 1 g twice daily renally dosed. - Baseline BUN and creatinine of approximately 54 and 1.8. BUN 88 and creatinine 3.9 on presentation. Oliguric. Anderson placed to monitor strict output. Potassium elevated at 6.2 on presentation. Monitor closely for improve ment with treatment of DKA. -Continue fluids per DKA protocol. Close monitoring of output. -If renal function decreases, will necessitate transfer for nephrology evaluation. DKA Hyperkalemia -Diabetes uncontrolled, A1c 12. Elevated in the double digits for at least the past 5 years. Does not comply with her insulin regimen at home. -Discontinue SGLT2 due to UTI as above -Initiated on DKA protocol with insulin drip and fluids per protocol. BMP ordered every 4 hours. Close monitoring of anion gap which was elevated in the 20s on arrival. -Once gap closes, initiate insulin glargine 15 units twice daily, this is half her home regimen, but unsure what her insulin needs actually are. -Nursing and provider to assist with diabetes teaching during admission. Patient already having endorgan damage, gets injections in her eyes. Has cortical thinning of her kidneys. Has significant neuropathy in her extremities. CLL -Complicates all aspects of her care. Patient relatively manage compromised. Monitor white count daily with CBC ordered for the morning. Uric acid elevated at 10. Will investigate potential for administering uricase medication to drop level. No signs of gout at this time. Monitoring phosphorus and potassium for tumor lysis syndrome. No treatment at this time however. Holding gabapentin due to her sydnee renal failure, reevaluate resumption patient has complaint of pain. Will renally dose and avoid 300 mg a day Continue levothyroxine 88 mcg daily for hypothyroid, TSH pending Holding lisinopril, spironolactone, and Lasix in the setting of RANDY and sepsis Resume Klonopin for anxiety at dose with 0.5 mg 3 times a day as needed Full code Lovenox 30 mg subcu daily Diabetic diet after gap closes
[2024-07-25] MEDS: CEFEPIME HCL 1 GM in 0.9 % SODIUM CHLORIDE 50 ML IV (15:01)
[2024-07-25 15:02] LABS: Hemoglobin A1C 12.1 % (4.0-6.0)
--- NOTE | 2024-07-25 15:04 | PC.NURSE ---
[facility] NOTIFIED OF ADMISSION
[2024-07-25 15:19] LABS: Acetone, Serum (Rapid) None Detected (None Detect)
[2024-07-25 15:30] LABS: Uric Acid 10.9 mg/dl (2.5-6.2)
[2024-07-25 15:35] LABS: Bacteria,Urine 4+ /lpf; Squamous Epithelial Cell,Urine Occasional #/hpf (0-5); WBC,Urine TNTC #/hpf (0-3)
[2024-07-25 16:06] LABS: Chloride 109 mmol/L (98-107); Potassium 4.8 mmoL/L (3.5-5.1); Sodium 137 mmol/L (136-145)
--- NOTE | 2024-07-25 16:07 | PC.NURSE ---
fingerstick glucose 137 at 1607. nurse aware
[2024-07-25 16:09] LABS: Anion Gap 13.8 mEq/L (5-15); Calcium 8.7 mg/dl (8.4-10.2); Carbon Dioxide 19 mmol/L (22.0-30.0); Creatinine Clearance Estimated 17 mL/min (50-200); Estimated Glomerular Filt Rate 13 ml/min (>60); GFR (African American) 15 ML/MIN (>60); Glucose 151 mg/dl (74-100); Phosphorous 5.2 mg/dl (2.5-4.5)
[2024-07-25 16:10] LABS: Magnesium 2.4 mg/dl (1.6-2.3)
[2024-07-25 16:11] LABS: Blood Urea Nitrogen 83 mg/dl (7-17)
--- NOTE | 2024-07-25 16:12 | PC.NURSE ---
CRITICAL BUN 83, PT NAME AND R/V. CATRINA NOTIFIED
[2024-07-25 17:08] LABS: POC Glucose,Bedside 129 (70-110)
[2024-07-25 17:25] LABS: Reflex Lactic Add Lactic Reflex
[2024-07-25] MEDS: Dextrose 5 % and 0.9 % NaCl 1,000 ML 75 ML IV (17:49)
[2024-07-25] MEDS: INSULIN GLARGINE 100 UNITS/ML 10ML VIAL 15 UNIT SUBCUT (17:56)
[2024-07-25 18:05] LABS: POC Glucose,Bedside 143 (70-110)
[2024-07-25 18:47] LABS: Chloride 109 mmol/L (98-107); Sodium 139 mmol/L (136-145)
[2024-07-25 18:50] LABS: Creatinine Clearance Estimated 18 mL/min (50-200); Estimated Glomerular Filt Rate 13 ml/min (>60); GFR (African American) 16 ML/MIN (>60)
[2024-07-25 18:51] LABS: Calcium 8.6 mg/dl (8.4-10.2); Glucose 120 mg/dl (74-100); Lactic Acid Follow Up (RFLX 1) 1.2 mmol/L (0.7-2.1); Phosphorous 5.5 mg/dl (2.5-4.5)
[2024-07-25 18:59] LABS: Potassium 4.7 mmoL/L (3.5-5.1)
[2024-07-25 19:00] LABS: POC Glucose,Bedside 161 (70-110)
[2024-07-25 19:02] LABS: Anion Gap 17.7 mEq/L (5-15); Carbon Dioxide 17 mmol/L (22.0-30.0); Magnesium 2.5 mg/dl (1.6-2.3)
[2024-07-25 19:11] LABS: Blood Urea Nitrogen 83 mg/dl (7-17)
--- NOTE | 2024-07-25 19:14 | PC.NURSE ---
Critical BUN received from [place] in lab. Patient BUN 83. Provider aware.
[2024-07-25 20:27] LABS: POC Glucose,Bedside 205 (70-110)
[2024-07-25 20:32] LABS: Thyroid Stimulating Hormone 2.05 uIU/mL (0.465-4.68)
[2024-07-25 22:17] LABS: POC Glucose,Bedside 255 (70-110)
[2024-07-25] MEDS: 0.9 % SODIUM CHLORIDE 1000ML 1,000 ML 75 ML IV (22:39)
[2024-07-25 23:12] LABS: Chloride 111 mmol/L (98-107); Potassium 4.7 mmoL/L (3.5-5.1); Sodium 137 mmol/L (136-145)
[2024-07-25 23:15] LABS: Anion Gap 14.7 mEq/L (5-15); Blood Urea Nitrogen 79 mg/dl (7-17); Calcium 7.9 mg/dl (8.4-10.2); Carbon Dioxide 16 mmol/L (22.0-30.0); Creatinine Clearance Estimated 19 mL/min (50-200); Estimated Glomerular Filt Rate 14 ml/min (>60); GFR (African American) 17 ML/MIN (>60); Glucose 240 mg/dl (74-100); Phosphorous 5.4 mg/dl (2.5-4.5)
[2024-07-25 23:16] LABS: Magnesium 2.3 mg/dl (1.6-2.3)
[2024-07-25 23:22] LABS: POC Glucose,Bedside 251 (70-110)
[2024-07-26] VITALS (23 sets, daily range): BP systolic 102–179; BP diastolic 38–68; PULSE 48–60; RESP 10–18; TEMP 36.6–37; O2SAT 95–99; BMI 28.0
[2024-07-26 00:19] LABS: POC Glucose,Bedside 204 (70-110)
[2024-07-26 02:09] LABS: POC Glucose,Bedside 179 (70-110)
[2024-07-26 02:39] LABS: POC Glucose,Bedside 98 (70-110)
[2024-07-26] MEDS: INSULIN REGULAR, HUMAN 100 UNIT in 0.9 % SODIUM CHLORIDE 100 ML IV ×2 (02:52→03:21)
[2024-07-26] MEDS: Dextrose 5 % and 0.9 % NaCl 1,000 ML 75 ML IV (03:09)
[2024-07-26 03:22] LABS: POC Glucose,Bedside 94 (70-110)
--- NOTE | 2024-07-26 03:28 | PC.NURSE ---
Spoke to Daniel from overnight pharmacy pertaining to pts insulin drip order. The order was for units/kg/hr , but we titrate by units/hr. Pharmacy was able to fix this.
[2024-07-26 03:48] LABS: Adenovirus F 40/41, stool Not Detected (NotDetected); Astrovirus Not Detected (NotDetected); Campylobacter Not Detected (NotDetected); Clostridium Difficile A/B, PCR Not Detected (NotDetected); Cryptosporidium Not Detected (NotDetected); Cyclospora Cayetanesis Not Detected (NotDetected); Entamoeba histolytica Not Detected (NotDetected); Enteroaggregative E coli Not Detected (NotDetected); Enteropathogenic E coli Not Detected (NotDetected); Enterotoxigenic E coli Not Detected (NotDetected); Giardia lamblia Not Detected (NotDetected); Norovirus Not Detected (NotDetected); Plesimonas Shigalloides, PCR Not Detected (NotDetected); Rotavirus A Not Detected (NotDetected); Salmonella, PCR Not Detected (NotDetected); Sapovirus Not Detected (NotDetected); Shiga-like toxin E coli Not Detected (NotDetected); Shigella Enterovasive E coli Not Detected (NotDetected); Vibrio Cholerae Not Detected (NotDetected); Vibrio, PCR Not Detected (NotDetected); Yersinia Entercolitica, PCR Not Detected (NotDetected)
[2024-07-26 04:02] LABS: Chloride 113 mmol/L (98-107); Sodium 139 mmol/L (136-145)
[2024-07-26 04:05] LABS: Blood Urea Nitrogen 77 mg/dl (7-17); Calcium 8.3 mg/dl (8.4-10.2); Carbon Dioxide 17 mmol/L (22.0-30.0); Creatinine Clearance Estimated 20 mL/min (50-200); Estimated Glomerular Filt Rate 15 ml/min (>60); GFR (African American) 18 ML/MIN (>60); Glucose 92 mg/dl (74-100); Magnesium 2.3 mg/dl (1.6-2.3); Phosphorous 4.9 mg/dl (2.5-4.5)
[2024-07-26] MEDS: CEFEPIME HCL 1 GM in 0.9 % SODIUM CHLORIDE 50 ML IV ×2 (04:12→15:43)
[2024-07-26 04:33] LABS: POC Glucose,Bedside 117 (70-110)
[2024-07-26 05:18] LABS: POC Glucose,Bedside 139 (70-110)
[2024-07-26 06:31] LABS: POC Glucose,Bedside 157 (70-110)
[2024-07-26 06:50] LABS: Blood Urea Nitrogen 74 mg/dl (7-17); Calcium 8.1 mg/dl (8.4-10.2); Carbon Dioxide 18 mmol/L (22.0-30.0); Chloride 114 mmol/L (98-107); Creatinine Clearance Estimated 21 mL/min (50-200); Estimated Glomerular Filt Rate 15 ml/min (>60); GFR (African American) 18 ML/MIN (>60); Glucose 133 mg/dl (74-100); Magnesium 2.3 mg/dl (1.6-2.3); Phosphorous 4.9 mg/dl (2.5-4.5); Sodium 137 mmol/L (136-145)
[2024-07-26 06:59] LABS: POC Glucose,Bedside 157 (70-110)
--- NOTE | 2024-07-26 07:34 | PC.NURSE ---
contacted pharmacy about lantus pen. stated they would bring one over shortly.
[2024-07-26] MEDS: LEVOTHYROXINE 88MCG (0.088MG) TAB 88 MCG PO (07:57)
[2024-07-26] MEDS: INSULIN GLARGINE 100 UNITS/ML 3ML FLEXPEN 15 UNIT SUBCUT ×2 (08:00→20:33)
[2024-07-26] MEDS: ENOXAPARIN 30MG/0.3ML SYRINGE 30 MG SUBCUT (08:00)
--- NOTE | 2024-07-26 08:17 | HMH.PHAINT1 ---
Pharmacy Intervention Comments: MEDICATION RECONCILIATION COMPLETED ON PATIENT USING EXTERNAL FILL HISTORY FROM PHARMACY AND LIST FROM PCP OFFICE. -RITO RIOS, LORID
--- NOTE | 2024-07-26 08:38 | PC.NURSE ---
DR IBARRA AT BEDSIDE
--- NOTE | 2024-07-26 09:00 | PC.NURSE ---
DR IBARRA AWARE OF FSBS 215 AND NOT ABLE TO TURN INSULIN DRIP OFF AT THIS TIME. PHARMACY ALSO AWARE.
--- NOTE | 2024-07-26 10:08 | SW/DCPLANNER ---
Addendum entered by Ariana Lee 07/27/24 15:36: Patient was accpeted at [facility]. [address] Sql Developer Addendum entered by Ariana Lee 07/27/24 14:01: Spoke with patient about home health services and patient stated that she would be interested in home health services. Faxed over patient's info to [facility]. Waiting for a response and will update when i hear back. Emily [address] Sql Developer Addendum entered by Ximena Mendoza 07/27/24 13:30: Patient has opted to discharge home rather than [facility]. I did engage in lengthy conversations w/ patient in regards to placement. I will discuss home health options w/ patient prior to discharge today. Addendum entered by Ximena Mendoza 07/27/24 10:20: Per Michelle patient has been approved SNF level of care. Addendum entered by Ximena Mendoza 07/26/24 15:33: Per Michlele mon/ [facility] precert will be started today for SNF level of care. Original Note: I spoke w/ patient this AM regarding plans once medically stable for discharge. PT/OT evaluated patient and recommended SNF level of care at time of discharge. Patient stated that her son currently lives w/ her and assist her. Patient is interested in placement and will consider this option at time of discharge. Patient is agreeable for information to be faxed to [facility] incase placement is still needed once medically stable for discharge. Patient information will be faxed to Michelle mon/ [facility] this AM. Discharge date is unknown at this time. I will continue to follow up w/ patrick, and [facility].
--- NOTE | 2024-07-26 10:27 | HMH.OTEV ---
OT Inpatient Evaluation Rehab OT IP Evaluation Start: 07/25/24 18:12 Freq: ONCE Status: Active Protocol: Document 07/26/24 10:21 RMARSHALL (Rec: 07/26/24 10:27 [facility] [id number]) Rehab OT IP Assessment Subjective History Pt oriented x 3 on arrival. Pt agreeable to engage in therapy evaluation. Pt admitted on 07/25/24 due to UTI , falls, confusion. History and physical: Ms. Davis is a 73-year-old female with history of diabetes that is poorly controlled, neuropathy, hypertension, hyperlipidemia, CLL, anxiety disorder, and CKD 4 at baseline. She presented to the ER due to having worsening generalized weakness over the past week. She got dizzy today, fell and hit her head and passed out at home. Not on any blood thinners. Is back to baseline consciousness in the ER. Patient denies any fever. Has had some abdominal discomfort . Has bad neuropathy and cannot feel her feet and is losing sensation in her hands. She is alert and oriented x 4. Workup in the ER concerning for DKA, severe sepsis, acute renal failure, and urinary tract infection. Also found to have hyperkalemia likely secondary to DKA. Initiated on insulin antibiotics in the ER. Blood and urine cultures obtained. Medicine consulted for admission and further management. Patient admitted to the ICU for further care. Tolerating insulin drip. Able to answer questions. Denies any shortness of breath, chest pain, diarrhea. Has occasional flank pain and knows she has got a history of stones but no significant pain at this time. Denies any blood in her urine. States she knows she needs to do better with her diabetes. A1c today in the ER of 12. Noted to have a white count of 18, hypothermic with body temperature 96.3. Multiorgan dysfunction. Urinary tract infection. Meeting severe sepsis criteria. Subjective Prior to being in the hospital , pt lived at home with her son. Pt claims normally she is independent with all ADLs. She is able to do simple IADL tasks such as cooking, but her son completes the heavier household tasks. Pt does use a rolling walker during functional transfers. Pt no longer drives. Objective Patient Orientation Person,Place,Birthday Right Upper Extremity Gross ROM Min Limitation <25% Left Upper Extremity Gross ROM Min Limitation <25% Shoulder ROM Limitations Muscle Weakness Elbow ROM Limitations Muscle Weakness Wrist Limitations of Range of Motion Muscle Weakness Bed Mobility bed mobility-scooting,bed mobility - supine/sit Assist Level Minimal x 1 (25% assist) Transfer Training Sit/Stand Transfer,Sit/Stand/ Step Transfer Assist Level Minimal x 1 (25% assist) Rehab OT IP prob,goals,plan Problems Date of Evaluation: 07/26/24 OT IP Problems Bed Mobility,Transfers,Balance ,Self care,Safety Rehab Potential Rehab Potential Good Equipment Needs Assistive Devices Rolling / Wheeled Walker Plan OT intervention Plan Bed Mobility,Transfers,Balance ,Self care,Safety,Therapeutic Exercise OT Plan Frequency Daily Duration LOS Discharge Goals Bed Mobility Ability Standby Assistance Sit to Stand Chair Transfer Ability Contact Guard/Hand Hold Chair Transfer Ability Contact Guard/Hand Hold Chair Transfer Technique Sit to/from Ambulatory Chair Transfer Assistive Devices Rolling Walker Lower Body Dressing Ability Minimal Assistance Upper Body Dressing Ability Contact Guard Bathing Ability Minimal Assistance Performing Toilet Hygiene Ability Contact Guard Overall Commode/Toilet Transfer Ability Contact Guard Commode/Toilet Transfer Technique Sit to/from Ambulatory Commode/Toilet Transfer Assistive Grab Bars Devices Discharge Plan OT Discharge Plan Pt will continue to be seen for OT services while at [facility]. At this time, pt would benefit most from short term rehab at [facility] for continued services. Pt's son is not able to care for her at this time due to being injured himself. Continued skilled therapy is important in order for patient to improve strength, safety, endurance, ADL independence, and functional transfers to reach PLOF. Eval Complexity Eval Charge Codes 93247 - Moderate Complexity PHYSICIAN CERTIFICATION: I certify the specified therapy services for Michelle Rivas are required, authorized, and reviewed every 30 days.
--- NOTE | 2024-07-26 12:11 | HMH.PTEV ---
Physical Therapy Evaluation Rehab PT IP Evaluation Start: 07/25/24 18:12 Freq: ONCE Status: Active Protocol: Document 07/26/24 11:29 JO ANN (Rec: 07/26/24 12:11 JO ANN [id number]) Subjective/History History History Pt is a 73 y/o female who was admitted on 07/25/24 due to UTI , falls, confusion. Subjective Subjective Pt reports she lives with her son and is usually IND with all mobility. Pt uses a RW. Pt reports hx of frequent falls. New diagnosis of cancer in past 12 No months? Rehab PT IP Eval Objective Appearance Patient Behavior Appropriate,Cooperative Patient Orientation Person,Place,Situation Difficulty following instructions none Speech Pattern Clear Ambulation Patient Able to Ambulate No Balance Ability to Arise Able, uses arms to help Sitting Balance Steady, safe Standing Balance Unsteady Dynamic Sitting Balance Ability Good Transfers Bed Transfer Ability Moderate x 1 (50% assist) Sit to Stand Bed Transfer Ability Minimal x 1 (25% assist) Rehab PT IP prob,goals,plan Problems Date of Evaluation: 07/26/24 PT IP Problems Bed Mobility,Transfers,Gait, Balance,Self care,Safety Rehab Potential Rehab Potential Good Equipment Needs Assistive Devices Rolling / Wheeled Walker Plan PT Intervention Plan Bed Mobility,Transfers,Gait, Balance,Self care,Safety, Therapeutic Exercise Other Intervention Plan 1-2 PT Plan Frequency Daily Duration LOS Discharge Goals Bed Transfer Ability Supervision/Stand by Sit to Stand Chair Transfer Ability Contact Guard/Hand Hold Ambulation Assistive Device Rolling Walker Ambulation Distance (feet) 10 Discharge Plan PT Discharge Plan Initial physical therapy evaluation performed. Patient presents below baseline at this time in functional mobility, transfers, and strength. Pt not safe to return home at this time d/t current level of functional mobility. PT recommending short-term rehabilitation stay upon d/c from [facility]. Pt would benefit from skilled PT while at [facility] to prevent further functional decline and maximize safety with mobility. Eval Complexity Eval Charge Codes 09580 - Moderate Complexity PHYSICIAN CERTIFICATION: I certify the specified therapy services for Michelle Rivas are required, authorized, and reviewed every 30 days.
[2024-07-26 12:58] LABS: Chloride 114 mmol/L (98-107); Sodium 140 mmol/L (136-145)
[2024-07-26 12:59] LABS: Potassium 5.6 mmoL/L (3.5-5.1)
[2024-07-26 13:01] LABS: Blood Urea Nitrogen 72 mg/dl (7-17); Creatinine Clearance Estimated 25 mL/min (50-200); Estimated Glomerular Filt Rate 18 ml/min (>60); GFR (African American) 22 ML/MIN (>60)
[2024-07-26 13:02] LABS: Anion Gap 15.6 mEq/L (5-15); Calcium 8.3 mg/dl (8.4-10.2); Carbon Dioxide 16 mmol/L (22.0-30.0); Glucose 189 mg/dl (74-100); Magnesium 2.2 mg/dl (1.6-2.3); Phosphorous 4.7 mg/dl (2.5-4.5)
--- NOTE | 2024-07-26 13:30 | PC.NURSE ---
SPOKE WITH DR IBARRA REGARDING PT. LAST FSBS AT 1300 WAS 181. HE STATED TO GO AHEAD AND TURN INSULIN DRIP OFF SINCE ANION GAP IS CLOSED AND FSBS LESS THAN 200. MOVE TO [facility]. MOVE PT FROM ICU TO MED SURG. REGISTRATION AWARE.
[2024-07-26] MEDS: humaLOG 100 UNITS/ML 10ML VIAL (SSI) SUBCUT ×2 (15:52→20:32)
--- NOTE | 2024-07-26 15:52 | DIET.NUTRFU ---
spoke to patient, he declined diabetic diet education. She stated she is aware of diet recommendations and does not want handouts. She likes to drink regular pop at home, but has been drinking diet during stay hoping to continue. Lives with son at home, he does not prepare many meals at home and she does not cook much. Going to [facility] for rehab, encouraged her to continue on recommended diet. No further dietary concerns at this time.
--- NOTE | 2024-07-26 16:39 | P.PN_ITS ---
Subjective *Date: 07/26/24 *Time: 20:22 Interval history: Stable on room air morning. Afebrile. Making good urine. No nausea or vomiting. Gap closed. Transitioned to basal bolus regimen this morning. Respiratory panel returned negative. Feeling a little better. Medical Exam Vital signs and Labs for Last 24 Hours: Vital Signs Temp Pulse Pulse Resp BP BP Pulse Ox 07/26/24 16:00 57 L 18 179/64 H 96 07/26/24 16:00 60 07/26/24 15:20 07/26/24 14:00 52 L 13 152/62 H 97 07/26/24 14:00 55 L 16 152/62 H 98 07/26/24 13:10 07/26/24 13:00 53 L 15 169/68 H 97 07/26/24 13:00 56 L 16 169/68 H 98 07/26/24 12:15 57 L 97 07/26/24 12:00 50 L 07/26/24 12:00 48 L 10 L 152/58 H 97 07/26/24 11:10 07/26/24 11:00 56 L 12 151/56 H 98 07/26/24 10:00 55 L 10 L 150/66 H 99 07/26/24 09:00 56 L 16 148/63 H 99 07/26/24 09:00 07/26/24 09:00 56 L 16 148/63 H 99 07/26/24 08:30 56 L 98 07/26/24 08:01 133/59 L 07/26/24 08:00 59 L 07/26/24 08:00 98 F 07/26/24 08:00 98.1 F 60 14 133/59 L 98 07/26/24 07:00 129/52 L 07/26/24 07:00 98.2 F 48 L 13 96 07/26/24 06:34 07/26/24 06:00 140/58 L 07/26/24 06:00 98.1 F 54 L 11 L 97 07/26/24 05:00 135/61 07/26/24 05:00 98.2 F 55 L 13 98 07/26/24 05:00 07/26/24 04:00 55 L 07/26/24 04:00 139/56 L 07/26/24 04:00 98.2 F 54 L 11 L 99 07/26/24 03:01 150/61 H 07/26/24 03:01 98.2 F 53 L 12 98 07/26/24 03:00 98.2 F 53 L 11 L 97 07/26/24 03:00 07/26/24 02:04 112/45 L 07/26/24 02:04 98.6 F 57 L 11 L 97 07/26/24 02:00 98.6 F 07/26/24 01:00 107/41 L 07/26/24 01:00 98.6 F 56 L 13 98 07/26/24 01:00 07/26/24 00:19 55 L 95 07/26/24 00:00 55 L 07/26/24 00:00 98.6 F 56 L 13 95 07/26/24 00:00 102/38 L 07/25/24 23:00 100/41 L 07/25/24 23:00 98.6 F 55 L 13 97 07/25/24 23:00 07/25/24 22:00 111/41 L 07/25/24 22:00 98.6 F 56 L 13 94 L 07/25/24 21:00 98.8 F 59 L 11 L 94 L 07/25/24 21:00 110/46 L 07/25/24 20:58 07/25/24 20:00 60 07/25/24 20:00 129/57 L 07/25/24 20:00 98.6 F 59 L 12 96 07/25/24 20:00 59 L 96 07/25/24 19:01 153/70 H 07/25/24 19:00 98.2 F 59 L 15 98 07/25/24 18:41 07/25/24 18:00 167/73 H 07/25/24 18:00 97.9 F 61 14 98 07/25/24 18:00 61 16 167/73 H 99 07/25/24 17:58 64 07/25/24 17:30 97.9 F 62 11 L 140/55 L 97 07/25/24 17:15 68 19 100 07/25/24 17:03 60 11 L 99 07/25/24 17:00 O2 Del Method 07/26/24 16:00 Room Air 07/26/24 16:00 07/26/24 15:20 Room Air 07/26/24 14:00 07/26/24 14:00 Room Air 07/26/24 13:10 Room Air 07/26/24 13:00 07/26/24 13:00 Room Air 07/26/24 12:15 Room Air 07/26/24 12:00 07/26/24 12:00 07/26/24 11:10 Room Air 07/26/24 11:00 07/26/24 10:00 07/26/24 09:00 Room Air 07/26/24 09:00 Room Air 07/26/24 09:00 Room Air 07/26/24 08:30 Room Air 07/26/24 08:01 07/26/24 08:00 07/26/24 08:00 07/26/24 08:00 07/26/24 07:00 07/26/24 07:00 07/26/24 06:34 Room Air 07/26/24 06:00 07/26/24 06:00 07/26/24 05:00 07/26/24 05:00 07/26/24 05:00 Room Air 07/26/24 04:00 07/26/24 04:00 07/26/24 04:00 07/26/24 03:01 07/26/24 03:01 07/26/24 03:00 07/26/24 03:00 Room Air 07/26/24 02:04 07/26/24 02:04 07/26/24 02:00 07/26/24 01:00 07/26/24 01:00 07/26/24 01:00 Room Air 07/26/24 00:19 Room Air 07/26/24 00:00 07/26/24 00:00 07/26/24 00:00 07/25/24 23:00 07/25/24 23:00 07/25/24 23:00 Room Air 07/25/24 22:00 07/25/24 22:00 07/25/24 21:00 07/25/24 21:00 07/25/24 20:58 Room Air 07/25/24 20:00 07/25/24 20:00 07/25/24 20:00 Room Air 07/25/24 20:00 Room Air 07/25/24 19:01 07/25/24 19:00 Room Air 07/25/24 18:41 Room Air 07/25/24 18:00 07/25/24 18:00 07/25/24 18:00 Room Air 07/25/24 17:58 07/25/24 17:30 07/25/24 17:15 07/25/24 17:03 07/25/24 17:00 Room Air Intake and Output 07/26/24 07/26/24 07/26/24 07:59 15:59 23:59 Intake Total 856.737 / 1381.887 525.15 / 1381.887 Output Total 495 / 695 200 / 695 Balance 361.737 / 686.887 325.15 / 686.887 Intake: Intake, Oral Amount 500 / 500 Intake, Total IV Amount 856.737 / 881.887 25.15 / 881.887 0.9 % Sodium Chloride 1000ML 1, 375 / 375 000 ml @ 75 mls/hr IV .[id number] [facility] Rx#:[id number] Cefepime HCl 1 gm In 0.9 % 50 / 50 Sodium Chloride 50 ml @ 100 mls /hr IV Q12H [facility] Rx#:[id number] Dextrose 5 % and 0.9 % NaCl 1, 428 / 428 000 ml @ 75 mls/hr IV .[id number] [facility] Rx#:[id number] Output: Output, Urine Amount 200 / 200 Output, Urine Amount (Catheter) 495 / 495 Anderson 495 / 495 Other: Number of Bowel Movements 1 1 Weight 84.005 kg Patient Weight 07/26/24 23:59 Weight 84.005 kg Laboratory Results - last 24 hr 07/25/24 02:00: Stl Aeromonas (PCR) Not detected, Stl C. cayetanensis PCR Not detected, Stool Rotavirus (PCR) Not detected, Stl Adenov F 40/41 PCR Not detected, Stool Astrovirus (PCR) Not detected, Stool Campylobacter PCR Not detected, Stl C.difficile Tox PCR Not detected, Stool Cryptosporidium PCR Not detected, Stl E.coli Shiga Tox PCR Not detected, Stool E coli O157 PCR Not detected, Stl Enterotoxigenic E PCR Not detected, Stool EPEC (PCR) Not detected, Stool EAEC (PCR) Not detected, Stl E. histolytica PCR Not detected, Stool Giardia Lamblia PCR Not detected, Stool Salmonella PCR Not detected, Stool Sapovirus (PCR) Not detected, Stl P. shigelloides PCR Not detected, Stl Shigella/EIEC PCR Not detected, St Y.enterocolitica PCR Not detected, Stool Vibrio (PCR) Not detected, Stl Vibrio cholerae PCR Not detected, Stl Norovirus GI/GII PCR Not detected 07/25/24 12:45: TSH 2.05 07/25/24 14:24: Urine Color Yellow, Urine Appearance Cloudy, Urine pH 5.5, Ur Specific [place] 1.025, Urine Protein 2+ A, Urine Glucose (UA) 3+, Urine Ketones Negative, Urine Blood 2+ A, Urine Nitrate Negative, Urine Bilirubin Negative, Urine Urobilinogen 0.2, Ur Leukocyte Esterase 2+ A, Urine RBC 5-10, Urine WBC Tntc, Ur Squamous Epith Cells Occasional, Urine Bacteria 4+ 07/25/24 17:00: POC Glucose 129 H 07/25/24 17:58: POC Glucose 143 H 07/25/24 18:35: Sodium 139, Potassium 4.7, Chloride 109 H, Carbon Dioxide 17 L, Anion Gap 17.7 H, BUN 83 H, Creatinine 3.40 H, Estimated Creat Clear 18, Estimated GFR 13 L*, Est GFR ( Amer) 16 L*, Glucose 120 H D, Lactate 1.2, Calcium 8.6, Phosphorus 5.5 H, Magnesium 2.5 H 07/25/24 18:52: POC Glucose 161 H 07/25/24 20:17: POC Glucose 205 H 07/25/24 22:11: POC Glucose 255 H 07/25/24 22:55: Sodium 137, Potassium 4.7, Chloride 111 H, Carbon Dioxide 16 L, Anion Gap 14.7, BUN 79 H, Creatinine 3.20 H, Estimated Creat Clear 19, Estimated GFR 14 L*, Est GFR ( Amer) 17 L*, Glucose 240 H D, Calcium 7.9 L, Phosphorus 5.4 H, Magnesium 2.3 07/25/24 23:15: POC Glucose 251 H 07/26/24 00:12: POC Glucose 204 H 07/26/24 01:07: POC Glucose 179 H 07/26/24 02:31: POC Glucose 98 07/26/24 03:15: POC Glucose 94 07/26/24 03:40: Sodium 139, Potassium 5.0, Chloride 113 H, Carbon Dioxide 17 L, Anion Gap 14.0, BUN 77 H, Creatinine 3.00 H, Estimated Creat Clear 20, Estimated GFR 15 L*, Est GFR ( Amer) 18 L*, Glucose 92 D, Calcium 8.3 L, Phosphorus 4.9 H, Magnesium 2.3 07/26/24 04:21: POC Glucose 117 H 07/26/24 05:11: POC Glucose 139 H 07/26/24 05:49: Sodium 137, Potassium 5.0, Chloride 114 H, Carbon Dioxide 18 L, Anion Gap 10.0, BUN 74 H, Creatinine 3.00 H, Estimated Creat Clear 21, Estimated GFR 15 L*, Est GFR ( Amer) 18 L*, Glucose 133 H D, Calcium 8.1 L, Phosphorus 4.9 H, Magnesium 2.3 07/26/24 06:22: POC Glucose 157 H 07/26/24 06:53: POC Glucose 157 H 07/26/24 11:29: Sodium 140, Potassium 5.6 H, Chloride 114 H, Carbon Dioxide 16 L , Anion Gap 15.6 H, BUN 72 H, Creatinine 2.60 H, Estimated Creat Clear 25, Estimated GFR 18 L*, Est GFR ( Amer) 22 L D, Glucose 189 H D, Calcium 8.3 L, Phosphorus 4.7 H, Magnesium 2.2 I & O for Labs for Last 24 Hours: Intake & Output 07/23/24 07/24/24 07/25/24 07/26/24 23:59 23:59 23:59 23:59 Intake Total 267.559 / 532.991 3057.887 / 1381.887 Output Total 700 / 750 695 / 695 Balance -432.441 / -482.441 686.887 / 686.887 Weight 79.379 kg 84.005 kg Microbiology Reports for the Last 24 Hours: Microbiology 07/25/24 14:17 Blood Blood Culture - Preliminary NO GROWTH AFTER 24 HOURS 07/25/24 14:16 Blood Blood Culture - Preliminary NO GROWTH AFTER 24 HOURS 07/25/24 14:24 Urine,Clean Catch Urine Culture - Preliminary Gram Negative Rods Constitutional: Present no acute distress, chronically ill appearing and cooperative Head: Present atraumatic and normocephalic ENT: Present normal exam Respiratory: Present normal respiratory effort; Absent rhonchi, wheezes or crackles Cardiac: Present Reg Rate and Rhythm GI: Present soft and normal bowel sounds; Absent distention or tenderness Extremities: Present normal inspection and full ROM Skin: Present intact; Absent erythema Neuro: Present Grossly Intact, alert, awake, oriented x 3 and moves all extremities Assessment and Plan *Assessment and plan (1) High anion gap metabolic acidosis: Status: Acute Category: Medical Code(s): E87.29 - Other acidosis (2) Renal failure: Status: Acute Qualifiers: Acute renal failure type: unspecified Chronic kidney disease stage: stage 4 (GFR 15-29) Renal failure chronicity: acute on chronic Qualified Code(s): N17.9 - Acute kidney failure, unspecified; N18.4 - Chronic kidney disease, stage 4 (severe) Category: Medical Code(s): N19 - Unspecified kidney failure (3) DKA (diabetic ketoacidosis): Status: Acute Qualifiers: Diabetes mellitus complication detail: without coma Diabetes mellitus type: type 2 Qualified Code(s): E11.10 - Type 2 diabetes mellitus with ketoacidosis without coma Category: Medical Code(s): E11.10 - Type 2 diabetes mellitus with ketoacidosis without coma (4) Falls frequently: Status: Acute Category: Medical Code(s): R29.6 - Repeated falls (5) Hyperlipidemia: Status: Chronic Qualifiers: Hyperlipidemia type: mixed hyperlipidemia Qualified Code(s): E78.2 - Mixed hyperlipidemia Category: Medical Code(s): E78.5 - Hyperlipidemia, unspecified (6) Hypertension: Status: Chronic Qualifiers: Hypertension type: primary hypertension Qualified Code(s): I10 - Essential (primary) hypertension Category: Medical Code(s): I10 - Essential (primary) hypertension (7) 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 Qualifiers: Diabetes mellitus correction insulin use: with correction use Qualified Code(s): E11.42 - Type 2 diabetes mellitus with diabetic polyneuropathy; Z79.4 - group home (current) use of insulin Category: Medical Code(s): E11.42 - Type 2 diabetes mellitus with diabetic polyneuropathy (8) Anxiety disorder: Status: Chronic Qualifiers: Anxiety disorder type: generalized anxiety disorder Qualified Code(s): F41.1 - Generalized anxiety disorder Category: Medical Code(s): F41.9 - Anxiety disorder, unspecified (9) CKD (chronic kidney disease): Status: Chronic Qualifiers: Chronic kidney disease stage: stage 4 (GFR 15-29) Qualified Code(s): N18.4 - Chronic kidney disease, stage 4 (severe) Category: Medical Code(s): N18.9 - Chronic kidney disease, unspecified (10) CLL (chronic lymphocytic leukemia): Status: Chronic Category: Medical Code(s): C91.10 - Chronic lymphocytic leukemia of B-cell type not having achieved remission (11) Hyperkalemia: Status: Acute Category: Medical Code(s): E87.5 - Hyperkalemia Plan 73-year-old female multiple comorbidities including CLL and uncontrolled diabetes. Presents with DKA, severe sepsis, UTI. Medicine consulted for admission. Discussed case with ER physician, request admission for further treatment of her high anion gap metabolic acidosis, acute on chronic renal failure, and DKA. I agreed to admit to the ICU for further care. Patient condition tenuous. Has severe sepsis with hypothermia (96.3), leukocytosis of 18, organ dysfunction with renal failure, and grossly abnormal urine consistent with UTI. Cultures pending. Responding to antibiotics and DKA protocol. Labs showing improvement. Off drip this morning. On basal bolus regimen. Problems addressed as follows: Severe sepsis UTI Acute renal failure CKD 4 -Severe sepsis with hypothermia, leukocytosis, organ dysfunction. Initiated on cefepime 1 g twice daily renally dosed, blood and urine cultures pending. Continue antibiotics as ordered. -Urinalysis grossly abnormal with leuk esterase, nitrate positive, 4+ bacteria. Urine culture growing greater than 100,000 gram-negative rods. Blood cultures remain negative - Baseline BUN and creatinine of approximately 54 and 1.8. BUN improved to 74, creatinine 3.0. Making urine. Anderson out today. Potassium 5.0. Magnesium 2.3. Phosphorus 4.9. -Tolerating p.o. intake. Discontinue IV fluids today. Close monitoring of out put. DKA Hyperkalemia -Diabetes uncontrolled, A1c 12. Elevated in the double digits for at least the past 5 years. Does not comply with her insulin regimen at home. -Discontinue SGLT2 due to UTI as above -Gap closed this morning. Transition to basal bolus regimen. - On insulin glargine 15 units subcu twice daily. Continue high intensity sliding scale with fingersticks ACHS. Morning glucose 133. -Nursing and provider to assist with diabetes teaching during admission. Patient already having endorgan damage, gets injections in her eyes. Has cortical thinning of her kidneys. Has significant neuropathy in her extremities. CLL -Complicates all aspects of her care. Patient relatively manage compromised. Monitor white count daily with CBC ordered for the morning. Uric acid elevated at 10. Will investigate potential for administering uricase medication to drop level. No signs of gout at this time. Monitoring phosphorus and potassium for tumor lysis syndrome. No treatment at this time however. Holding gabapentin due to her sydnee renal failure, reevaluate resumption patient has complaint of pain. Will renally dose and avoid more than 300 mg a day Continue levothyroxine 88 mcg daily for hypothyroid, TSH pending Holding lisinopril, spironolactone, and Lasix in the setting of RANDY and sepsis; initiate hydralazine 25 mg 3 times a day. Resume Klonopin for anxiety at dose with 0.5 mg 3 times a day as needed Full code Lovenox 30 mg subcu daily Diabetic diet after gap closes
--- NOTE | 2024-07-26 17:13 | PC.NURSE ---
called report to arely pandya
--- NOTE | 2024-07-26 17:47 | PC.NURSE ---
pt transported to the med surg floor room 204 via wheelchair
[2024-07-26] MEDS: HYDRALAZINE HCL 25MG TABLET 25 MG PO (23:42)
[2024-07-26] MEDS: clonazePAM 1MG TABLET 0.5 MG PO (23:46)
[2024-07-27] VITALS: BP 134/59; PULSE 52; RESP 18; TEMP 36.8; O2SAT 96
[2024-07-27] MEDS: CEFEPIME HCL 1 GM in 0.9 % SODIUM CHLORIDE 50 ML IV (02:53)
[2024-07-27 04:00] VITALS: BP 158/59; PULSE 56; RESP 18; TEMP 37.1; O2SAT 96; BMI 29.0
--- NOTE | 2024-07-27 05:15 | PC.NURSE ---
Pt. is alert and orientated x 4. Pt. was feeling anxious , she said she was scared and di not know what to do. Pt. reassured and medicated for anxiety. Pt. slept well after being medicated for the anxiety. Purewick in place and pt. is voiding well. Pt. recieved IV antibiotics. VSS Personal items and call edwards in reach.
[2024-07-27 06:43] LABS: POC Glucose,Bedside 154 (70-110)
[2024-07-27 06:49] LABS: Basophils # 0.1 K/mm3 (0-0.2); Basophils % 0.4 % (0.1-2.0); Eosinophils # 0.5 K/mm3 (0.0-0.4); Eosinophils % 4.1 % (0.1-12.0); Hematocrit 26.4 % (37.0-47.0); Hemoglobin 8.3 g/dL (12.2-16.2); Lymphocytes # 6.3 K/mm3 (0.7-4.5); Lymphocytes % 56.5 % (10-50); Mean Corpuscular HGB Conc 31.4 g/dL (31.8-35.4); Mean Corpuscular Hemoglobin 28.7 pg (27.0-31.2); Mean Corpuscular Volume 91.3 fl (81-99); Mean Platelet Volume 9.9 fl (7.4-10.4); Monocytes # 0.6 K/mm3 (0.1-1.0); Monocytes % 4.9 % (1.7-9.3); Neutrophils # 3.8 K/mm3 (1.8-7.8); Neutrophils % 33.8 % (37.0-80.0); Platelet Count 226 K/mm3 (142-424); Red Blood Count 2.89 M/mm3 (4.20-5.40); Red Cell Distribution Width 14.6 % (11.5-17.5); White Blood Count 11.2 K/mm3 (4.8-10.8)
[2024-07-27] MEDS: humaLOG 100 UNITS/ML 10ML VIAL (SSI) SUBCUT ×2 (06:51→11:19)
[2024-07-27 06:53] LABS: MANUAL DIFFERENTIAL MANUAL DIFFERENTIAL (MANUAL DIFF)
[2024-07-27] MEDS: LEVOTHYROXINE 88MCG (0.088MG) TAB 88 MCG PO (06:59)
[2024-07-27 07:06] LABS: Alanine Aminotransferase 12 U/L (12-78); Albumin Level 2.8 g/dl (3.5-5.0); Albumin/Globulin Ratio 1.1 (1.1-1.8); Alkaline Phosphatase 72 U/L (38-126); Anion Gap 11.3 mEq/L (5-15); Aspartate Amino Transferase 17 U/L (14-36); Blood Urea Nitrogen 59 mg/dl (7-17); Calcium 8.4 mg/dl (8.4-10.2); Carbon Dioxide 17 mmol/L (22.0-30.0); Chloride 115 mmol/L (98-107); Creatinine Clearance Estimated 30 mL/min (50-200); Estimated Glomerular Filt Rate 22 ml/min (>60); GFR (African American) 26 ML/MIN (>60); Globulin 2.5 g/dL (1.3-3.2); Glucose 151 mg/dl (74-100); Magnesium 2.2 mg/dl (1.6-2.3); Potassium 5.3 mmoL/L (3.5-5.1); Sodium 138 mmol/L (136-145); Total Protein,Serum 5.3 g/dl (6.3-8.2)
[2024-07-27 07:28] LABS: Bilirubin,Total < 0.1 mg/dl (0.2-1.3)
[2024-07-27 08:00] VITALS: BP 177/66; PULSE 57; RESP 16; TEMP 36.9; O2SAT 99
[2024-07-27 08:12] LABS: POC Glucose,Bedside 181 (70-110)
[2024-07-27 08:12] LABS: POC Glucose,Bedside 220 (70-110)
[2024-07-27 08:12] LABS: POC Glucose,Bedside 257 (70-110)
[2024-07-27 08:12] LABS: POC Glucose,Bedside 203 (70-110)
[2024-07-27 08:12] LABS: POC Glucose,Bedside 224 (70-110)
[2024-07-27 08:12] LABS: POC Glucose,Bedside 160 (70-110)
[2024-07-27 08:12] LABS: POC Glucose,Bedside 215 (70-110)
[2024-07-27 08:30] LABS: Eosinophils % 4 % (0-3); Lymphocytes % 55 % (10-50); Monocytes % 3 % (2-9); Neutrophils % 38 % (42-76); Total Cells Counted 100
[2024-07-27 08:31] LABS: Platelet Estimate Normal; RBC Morphology Normal
[2024-07-27] MEDS: ENOXAPARIN 30MG/0.3ML SYRINGE 30 MG SUBCUT (09:07)
[2024-07-27] MEDS: INSULIN GLARGINE 100 UNITS/ML 3ML FLEXPEN 15 UNIT SUBCUT (09:08)
[2024-07-27] MEDS: HYDRALAZINE HCL 25MG TABLET 25 MG PO ×2 (09:08→14:03)
[2024-07-27 11:15] LABS: POC Glucose,Bedside 158 (70-110)
[2024-07-27 11:48] VITALS: BP 176/76; PULSE 60; RESP 16; TEMP 36.7; O2SAT 98
--- NOTE | 2024-07-27 12:46 | P.DS_ITS ---
General Admission date:: 07/25/24 HPI HPI HPI: Ms. Davis is a 73-year-old female with history of diabetes that is poorly controlled, neuropathy, hypertension, hyperlipidemia, CLL, anxiety disorder, and CKD 4 at baseline. She presented to the ER due to having worsening generalized weakness over the past week. She got dizzy today, fell and hit her head and passed out at home. Not on any blood thinners. Is back to baseline conscio usness in the ER. Patient denies any fever. Has had some abdominal discomfort. Has bad neuropathy and cannot feel her feet and is losing sensation in her hands. She is alert and oriented x 4. Workup in the ER concerning for DKA, severe sepsis, acute renal failure, and urinary tract infection. Also found to have hyperkalemia likely secondary to DKA. Initiated on insulin antibiotics in the ER. Blood and urine cultures obtained. Medicine consulted for admission and further management. Patient admitted to the ICU for further care. Tolerating insulin drip. Able to answer questions. Denies any shortness of breath, chest pain, diarrhea. Has occasional flank pain and knows she has got a history of stones but no significant pain at this time. Denies any blood in her urine. States she knows she needs to do better with her diabetes. A1c today in the ER of 12. Noted to have a white count of 18, hypothermic with body temperature 96.3. Multiorgan dysfunction. Urinary tract infection. Meeting severe sepsis criteria. Hospital Course Hospital Course Hospital Course: Michelle Rivas 73-year-old female multiple comorbidities including CLL and uncontrolled diabetes. Presents with DKA, severe sepsis, UTI. Medicine consulted for admission. Discussed case with ER physician, request admission for further treatment of her high anion gap metabolic acidosis, acute on chronic renal failure, and DKA. I agreed to admit to the ICU for further care. Severe sepsis UTI Acute renal failure CKD 4 - Initially presented with severe sepsis with hypothermia, leukocytosis, organ dysfunction. ? UA grossly abnormal, urine culture growing Klebsiella pneumonia sensitive to third-generation cephalosporin. ? Clinically improved with cefepime, Levophed. Weaned to cefdinir. ? Renal function also improved with IV fluid resuscitation, creatinine 2.2 (peaked 3.9). ? Discharged with cefdinir for 5 more days. Advised to follow-up with PCP within 1 week. Holding spironolactone, lisinopril, hydrochlorothiazide in the setting of RANDY. Started hydralazine for now. DKA Hyperkalemia Peripheral neuropathy - Diabetes uncontrolled, A1c 12. Elevated in the double digits for at least the past 5 years. Does not comply with her insulin regimen at home. - Discontinue SGLT2 due to UTI as above ? DKA resolved with IV fluid resuscitation, insulin. ? Discharged with glargine 18 units twice daily. Previous intolerance to metformin, and contraindicated in CKD stage IV. ? Strongly advised patient to follow-up with PCP within 1 week for further management of diabetes. - Decrease gabapentin to 40 mg twice daily in the setting of CKD. CLL - Complicates all aspects of her care. Stable at this time. Continue levothyroxine 88 mcg daily for hypothyroid, TSH pending Resume Klonopin for anxiety at dose with 0.5 mg 3 times a day as needed Exam Data for Last 24 hours Vital signs and Labs for Last 24 Hours: Temp Pulse Resp BP Pulse Ox O2 Del Method 98.1 F 60 16 176/76 H 98 Room Air 07/27/24 11:48 07/27/24 11:48 07/27/24 11:48 07/27/24 11:48 07/27/24 11:48 07/27/24 07:00 Laboratory Results - last 24 hr 07/26/24 07:57: POC Glucose 160 H 07/26/24 09:00: POC Glucose 215 H 07/26/24 10:07: POC Glucose 220 H 07/26/24 11:12: POC Glucose 224 H 07/26/24 11:29: Sodium 140, Potassium 5.6 H, Chloride 114 H, Carbon Dioxide 16 L , Anion Gap 15.6 H, BUN 72 H, Creatinine 2.60 H, Estimated Creat Clear 25, Estimated GFR 18 L*, Est GFR ( Amer) 22 L D, Glucose 189 H D, Calcium 8.3 L, Phosphorus 4.7 H, Magnesium 2.2 07/26/24 12:03: POC Glucose 203 H 07/26/24 13:11: POC Glucose 181 H 07/26/24 15:48: POC Glucose 257 H 07/27/24 06:30: WBC 11.2 H D, RBC 2.89 L, Hgb 8.3 L, Hct 26.4 L, MCV 91.3, MCH 28.7, MCHC 31.4 L, RDW 14.6, Plt Count 226 D, MPV 9.9, Neut % (Auto) 33.8 L, Lymph % (Auto) 56.5 H, Barnes % (Auto) 4.9, Eos % (Auto) 4.1, Baso % (Auto) 0.4, N eut # (Auto) 3.8, Lymph # (Auto) 6.3 H, Barnes # (Auto) 0.6, Eos # (Auto) 0.5 H, Baso # (Auto) 0.1, Total Counted 100, Neutrophils % (Manual) 38 L, Lymphocytes % (Manual) 55 H, Monocytes % (Manual) 3, Eosinophils % (Manual) 4 H, Platelet Estimate Normal, RBC Morphology Normal, Sodium 138, Potassium 5.3 H, Chloride 115 H, Carbon Dioxide 17 L, Anion Gap 11.3, BUN 59 H, Creatinine 2.20 H, Estimated Creat Clear 30, Estimated GFR 22 L, Est GFR ( Amer) 26 L, Glucose 151 H D, Calcium 8.4, Magnesium 2.2, Total Bilirubin < 0.1 L, AST 17, ALT 12 D, Alkaline Phosphatase 72, Total Protein 5.3 L D, Albumin 2.8 L, Globulin 2.5, Albumin/Globulin Ratio 1.1 07/27/24 06:32: POC Glucose 154 H 07/27/24 11:06: POC Glucose 158 H I & O for Last 24 hours: Intake & Output 07/24/24 07/25/24 07/26/24 07/27/24 23:59 23:59 23:59 23:59 Intake Total 267.559 / 062.620 6142.887 / 1681.887 50 / 50 Output Total 700 / 750 1645 / 1645 750 / 750 Balance -432.441 / -482.441 36.887 / 36.887 -700 / -700 Weight 79.379 kg 84.005 kg 86.999 kg Microbiology Reports for the Last 24 Hours: Microbiology 07/25/24 18:03 Anus CRE Surveillance Culture - Final 07/25/24 14:24 Urine,Clean Catch Urine Culture - Final Klebsiella pneumoniae 07/25/24 14:17 Blood Blood Culture - Preliminary NO GROWTH AFTER 24 HOURS 07/25/24 14:16 Blood Blood Culture - Preliminary NO GROWTH AFTER 24 HOURS Constitutional Constitutional: no acute distress *Routine HEENT Exam Head: Present normocephalic Eye: Present EOMI and PERRL ENT: Present mucous membranes moist *Routine Neck Exam Neck: Present supple; Absent lymphadenopathy *Routine Respiratory Exam Respiratory: Present CTA bilaterally *Routine Cardiovascular Exam Cardiovascular: Present RRR *Routine Abdominal Exam Abdominal: Present soft and normoactive bowel sounds; Absent tenderness *Routine Extremities Exam Extremities: Absent cyanosis, clubbing or edema *Routine Skin Exam Skin: Present warm; Absent rash *Routine Neurological Exam Neurological: Present alert and oriented X3 Results Data Completed and Pending Labs on day of discharge: Labs from last 24 hours 07/27/24 07/27/24 07/27/24 11:06 06:32 06:30 WBC 11.2 H D RBC 2.89 L Hgb 8.3 L Hct 26.4 L MCV 91.3 MCH 28.7 MCHC 31.4 L RDW 14.6 Plt Count 226 D MPV 9.9 Neut % (Auto) 33.8 L Lymph % (Auto) 56.5 H Barnes % (Auto) 4.9 Eos % (Auto) 4.1 Baso % (Auto) 0.4 Neut # (Auto) 3.8 Lymph # (Auto) 6.3 H Barnes # (Auto) 0.6 Eos # (Auto) 0.5 H Baso # (Auto) 0.1 Total Counted 100 Neutrophils % (Manual) 38 L Lymphocytes % (Manual) 55 H Monocytes % (Manual) 3 Eosinophils % (Manual) 4 H Platelet Estimate Normal RBC Morphology Normal Sodium 138 Potassium 5.3 H Chloride 115 H Carbon Dioxide 17 L Anion Gap 11.3 BUN 59 H Creatinine 2.20 H Estimated Creat Clear 30 Estimated GFR 22 L Est GFR ( Amer) 26 L Glucose 151 H D POC Glucose 158 H 154 H Calcium 8.4 Phosphorus Magnesium 2.2 Total Bilirubin < 0.1 L AST 17 ALT 12 D Alkaline Phosphatase 72 Total Protein 5.3 L D Albumin 2.8 L Globulin 2.5 Albumin/Globulin Ratio 1.1 07/26/24 07/26/24 07/26/24 15:48 13:11 12:03 WBC RBC Hgb Hct MCV MCH MCHC RDW Plt Count MPV Neut % (Auto) Lymph % (Auto) Barnes % (Auto) Eos % (Auto) Baso % (Auto) Neut # (Auto) Lymph # (Auto) Barnes # (Auto) Eos # (Auto) Baso # (Auto) Total Counted Neutrophils % (Manual) Lymphocytes % (Manual) Monocytes % (Manual) Eosinophils % (Manual) Platelet Estimate RBC Morphology Sodium Potassium Chloride Carbon Dioxide Anion Gap BUN Creatinine Estimated Creat Clear Estimated GFR Est GFR ( Amer) Glucose POC Glucose 257 H 181 H 203 H Calcium Phosphorus Magnesium Total Bilirubin AST ALT Alkaline Phosphatase Total Protein Albumin Globulin Albumin/Globulin Ratio 07/26/24 07/26/24 07/26/24 11:29 11:12 10:07 WBC RBC Hgb Hct MCV MCH MCHC RDW Plt Count MPV Neut % (Auto) Lymph % (Auto) Barnes % (Auto) Eos % (Auto) Baso % (Auto) Neut # (Auto) Lymph # (Auto) Barnes # (Auto) Eos # (Auto) Baso # (Auto) Total Counted Neutrophils % (Manual) Lymphocytes % (Manual) Monocytes % (Manual) Eosinophils % (Manual) Platelet Estimate RBC Morphology Sodium 140 Potassium 5.6 H Chloride 114 H Carbon Dioxide 16 L Anion Gap 15.6 H BUN 72 H Creatinine 2.60 H Estimated Creat Clear 25 Estimated GFR 18 L* Est GFR ( Amer) 22 L D Glucose 189 H D POC Glucose 224 H 220 H Calcium 8.3 L Phosphorus 4.7 H Magnesium 2.2 Total Bilirubin AST ALT Alkaline Phosphatase Total Protein Albumin Globulin Albumin/Globulin Ratio 07/26/24 07/26/24 09:00 07:57 WBC RBC Hgb Hct MCV MCH MCHC RDW Plt Count MPV Neut % (Auto) Lymph % (Auto) Barnes % (Auto) Eos % (Auto) Baso % (Auto) Neut # (Auto) Lymph # (Auto) Barnes # (Auto) Eos # (Auto) Baso # (Auto) Total Counted Neutrophils % (Manual) Lymphocytes % (Manual) Monocytes % (Manual) Eosinophils % (Manual) Platelet Estimate RBC Morphology Sodium Potassium Chloride Carbon Dioxide Anion Gap BUN Creatinine Estimated Creat Clear Estimated GFR Est GFR ( Amer) Glucose POC Glucose 215 H 160 H Calcium Phosphorus Magnesium Total Bilirubin AST ALT Alkaline Phosphatase Total Protein Albumin Globulin Albumin/Globulin Ratio Preliminary micro results at discharge 07/25/24 14:17 Blood Culture - Preliminary Blood NO GROWTH AFTER 24 HOURS 07/25/24 14:16 Blood Culture - Preliminary Blood NO GROWTH AFTER 24 HOURS DS: Diagnosis Discharge Diagnosis (1) High anion gap metabolic acidosis: Status: Acute Code(s): E87.29 - Other acidosis (2) Renal failure: Status: Acute Code(s): N19 - Unspecified kidney failure Qualifiers: Acute renal failure type: unspecified Chronic kidney disease stage: stage 4 (GFR 15-29) Renal failure chronicity: acute on chronic Qualified Code(s): N17.9 - Acute kidney failure, unspecified; N18.4 - Chronic kidney disease, stage 4 (severe) (3) DKA (diabetic ketoacidosis): Status: Resolved Code(s): E11.10 - Type 2 diabetes mellitus with ketoacidosis without coma Qualifiers: Diabetes mellitus complication detail: without coma Diabetes mellitus type: type 2 Qualified Code(s): E11.10 - Type 2 diabetes mellitus with ketoacidosis without coma (4) Falls frequently: Status: Chronic Code(s): R29.6 - Repeated falls (5) Hyperlipidemia: Status: Chronic Code(s): E78.5 - Hyperlipidemia, unspecified Qualifiers: Hyperlipidemia type: mixed hyperlipidemia Qualified Code(s): E78.2 - Mixed hyperlipidemia (6) Hypertension: Status: Chronic Code(s): I10 - Essential (primary) hypertension Qualifiers: Hypertension type: primary hypertension Qualified Code(s): I10 - Essential (primary) hypertension (7) 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 Code(s): E11.42 - Type 2 diabetes mellitus with diabetic polyneuropathy Qualifiers: Diabetes mellitus fdc insulin use: with boat buffer plastic use Qualified Code(s): E11.42 - Type 2 diabetes mellitus with diabetic polyneuropathy; Z79.4 - supervisor type bar and segment (current) use of insulin (8) Anxiety disorder: Status: Chronic Code(s): F41.9 - Anxiety disorder, unspecified Qualifiers: Anxiety disorder type: generalized anxiety disorder Qualified Code(s): F41.1 - Generalized anxiety disorder (9) CKD (chronic kidney disease): Status: Chronic Code(s): N18.9 - Chronic kidney disease, unspecified Qualifiers: Chronic kidney disease stage: stage 4 (GFR 15-29) Qualified Code(s): N18.4 - Chronic kidney disease, stage 4 (severe) (10) CLL (chronic lymphocytic leukemia): Status: Chronic Code(s): C91.10 - Chronic lymphocytic leukemia of B-cell type not having achieved remission (11) Hyperkalemia: Status: Acute Code(s): E87.5 - Hyperkalemia Meds Home Medications and Allergies Home Medications ?Medication ?Instructions ?Recorded ?Confirmed ?Type clonazepam 1 mg tablet 1 mg PO TIDP PRN Anxiety 03/17/20 07/28/24 History spironolactone 50 mg tablet 50 mg PO DAILY 03/17/20 07/28/24 History insulin lispro 100 unit/mL 0 - 14 unit (0 - 0.14 mL) SQ 12/14/22 07/28/24 Rx subcutaneous pen (Humalog KwikPen TIDWMEAL Diabetes #10 mL (U-100) Insulin) levothyroxine 88 mcg tablet 88 mcg PO DAILY 07/26/24 07/28/24 History lisinopril 20 1 tab PO DAILY 07/26/24 07/28/24 History mg-hydrochlorothiazide 25 mg tablet cefdinir 300 mg capsule 300 mg PO BID 5 days #10 caps 07/27/24 07/28/24 Rx hydralazine 25 mg tablet 25 mg PO TID 30 days #90 tabs 07/27/24 07/28/24 Rx insulin glargine 100 unit/mL (3 18 unit (0.18 mL) SQ BID Diabetes 07/27/24 07/28/24 Rx mL) subcutaneous pen (Lantus #10 mL Solostar U-100 Insulin) dapagliflozin propanediol 10 mg 10 mg PO DAILY 07/28/24 07/28/24 History tablet (Farxiga) hydrocodone 5 mg-acetaminophen 325 1 tab PO Q8H PRN pain #90 tabs 07/28/24 07/28/24 Rx mg tablet furosemide 20 mg tablet 60 mg PO DAILY 08/02/24 History gabapentin 400 mg capsule 400 mg PO TID #90 caps 08/09/24 Rx New Prescriptions to Start Prescriptions: cefdinir Celso Dominguez hydralazine Celso Dominguez Allergies Allergy/AdvReac Type Severity Reaction Status Date / Time moxifloxacin Allergy Severe S-ANAPHYLAX Verified 08/02/24 11:46 IS Sulfa (Sulfonamide Allergy Mild NA-NAUSEA/V Verified 08/02/24 11:46 Antibiotics) OMITING Discharge Plan Disposition Patient Disposition: Home, Self-Care Condition: Fair Discharge Order Discharge Orders: Discharge Order (Routine); Ordered 07/27/24 Ordered By: Celso Dominguez Follow up Plan Follow up with: Albert Cain MD [Staff Physician] - 08/02/24 11:45 am Prescriptions/Medication Reconciliation: New hydralazine 25 mg Tablet 25 mg PO TID 30 Days Qty: 90 0RF cefdinir 300 mg capsule 300 mg PO BID 5 Days Qty: 10 0RF Continued insulin lispro [Humalog KwikPen Insulin] 100 unit/mL insulin pen 0 - 14 unit SQ TIDWMEAL Qty: 10 10RF Rx Instructions: Per home sliding scale If blood sugar 151-200 take 4 units short acting insulin If blood sugar 200-250 take 8 units short acting insulin If blood sugar 251-300 take 12 units short acting insulin If blood sugar 301-350 take 14 units short acting insulin If blood sugar greater than 350 take 14 units insulin and call physician for further instructions. levothyroxine 88 mcg tablet 88 mcg PO DAILY clonazepam 1 MG tablet 1 mg PO TIDP PRN (Reason: Anxiety) Changed insulin glargine [Lantus Solostar U-100 Insulin] 100 unit/mL (3 mL) insulin p en 18 unit SQ BID Qty: 10 10RF Held lisinopril-hydrochlorothiazide 20-25 mg tablet 1 tab PO DAILY Hold Instructions: Resume on 08/03/24. Holding due to RANDY. Repeat BMP in 4 days. spironolactone 50 MG tablet 50 mg PO DAILY Hold Instructions: Resume on 08/03/24. Holding due to RANDY. Repeat BMP in 4 days. Discontinued dapagliflozin propanediol [Farxiga] 10 mg tablet 10 mg PO DAILY gabapentin 400 mg capsule 400 mg PO TID furosemide 20 mg tablet 20 mg PO DAILY Qty: 90 1RF No Action dapagliflozin propanediol [Farxiga] 10 mg tablet 10 mg PO DAILY hydrocodone-acetaminophen 5-325 mg tablet 1 tab PO Q8H PRN (Reason: pain) Qty: 90 0RF furosemide 20 mg tablet 60 mg PO DAILY gabapentin 400 mg capsule 400 mg PO TID Qty: 90 0RF Problem Reconciliation Problems Reviewed?: Yes Patient Discharge Instructions Patient Instructions: Carbohydrate-Counting Diet, Using Nutrition Labels: Carbohydrate Diet Print Language: Citizen [place] Providers Primary Care Provider: Lila Parekh Admit Provider: Stef Paulino Attending Provider: Stef Paulino
--- NOTE | 2024-07-28 10:18 | SW/DCPLANNER ---
Spoke with patient on the phone. Patient stated that she is doing well. 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 Patient stated that she is aware of her upcoming appointment with her primary care provider. Patient stated that she has no concerns or questions at this time. Emily Devine
--- NOTE | 2024-07-29 09:07 | SW/DCPLANNER ---
Addendum entered by Ximena Mendoza 07/30/24 13:31: I have contact patient to let her [facility]. I will follow up w/ Mark and patient on Friday morning. Addendum entered by Ximena Mendoza 07/29/24 09:15: Patient is agreeable to placement at this time and prefers [facility]. I am waiting for [facility] regarding start of services for at home pt/ot evaluation. Original Note: I received a phone call from patient's son regarding the need for placement from home. Patient discharged home on 07/27 after being admitted to [facility] and received acceptance/approval at [facility]. Per son patient is needing placement and prefers to go to [facility]. Michelle mon/ [facility] has stated that since patient discharged home auth has been voided and she will require a new pt/ot evaluation. I am currently waiting to hear back from Mark mon/ [facility] as to when evaluation plans to be completed for this patient. I will continue to follow up w/ patient.
== END 2024-07-27 14:51 | disposition home health service (06) | DRG 871 ==
LOC: ER 14:48 → ICU 15:13 → 2ND 07-26 16:49
PROVIDERS: Admitting Provider Internal Medicine Adolescent Medicine; Emergency Provider Emergency Medicine; PCP Nurse Practitioner; Visit Provider Internal Medicine Adolescent Medicine
DX: A41.9 Sepsis, unspecified organism (principal); E11.10 Type 2 diabetes mellitus with ketoacidosis without coma; C91.10 Chronic lymphocytic leukemia of B-cell type not having achieved remission; R65.20 Severe sepsis without septic shock; G62.9 Polyneuropathy, unspecified; E11.22 Type 2 diabetes mellitus with diabetic chronic kidney disease; I12.9 Hypertensive chronic kidney disease with stage 1 through stage 4 chronic kidney disease, or unspecified chronic kidney disease; N18.9 Chronic kidney disease, unspecified; R68.0 Hypothermia, not associated with low environmental temperature; E87.5 Hyperkalemia; F41.9 Anxiety disorder, unspecified; E03.9 Hypothyroidism, unspecified
CPT/HCPCS: 36415; 51702; 70450; 71045; 72125; 72128; 72131; 72192; 73562; 80048; 80053; 81001; 82009; 82803; 82962; 83036; 83605; 83690; 83735; 84100; 84443; 84550; 85007; 85025; 87040; 87081; 87086; 87088; 87186; 87507; 97162; 97166; 97530; 99285; J0692; J1650; J7030; J7042

== ENCOUNTER 2024-08-02 14:06 | Outpatient (CLI) | payer MEDICARE, SELFPAY ==
[2024-08-02 14:17] LABS: Anion Gap 11.2 mEq/L (5-15); Blood Urea Nitrogen 51 mg/dl (7-17); Calcium 9.5 mg/dl (8.4-10.2); Carbon Dioxide 21 mmol/L (22.0-30.0); Chloride 109 mmol/L (98-107); Estimated Glomerular Filt Rate 31 ml/min (>60); GFR (African American) 38 ML/MIN (>60); Glucose 218 mg/dl (74-100); Sodium 135 mmol/L (136-145)
[2024-08-02 15:10] LABS: Potassium 6.2 mmoL/L (3.5-5.1)
== END 2024-08-02 23:59 | disposition home or self-care (01) ==
LOC: LAB.DROPOF 14:06
PROVIDERS: PCP Internal Medicine; Visit Provider Internal Medicine
DX: N17.9 Acute kidney failure, unspecified (principal); I12.9 Hypertensive chronic kidney disease with stage 1 through stage 4 chronic kidney disease, or unspecified chronic kidney disease
CPT/HCPCS: 80048

== ENCOUNTER 2024-08-19 15:21 | Outpatient (CLI) | payer MEDICARE, SELFPAY ==
[2024-08-19 13:24] LABS: Chloride 107 mmol/L (98-107); Potassium 4.5 mmoL/L (3.5-5.1); Sodium 141 mmol/L (136-145)
[2024-08-19 13:27] LABS: Anion Gap 11.5 mEq/L (5-15); Blood Urea Nitrogen 36 mg/dl (7-17); Calcium 8.7 mg/dl (8.4-10.2); Carbon Dioxide 27 mmol/L (22.0-30.0); Estimated Glomerular Filt Rate 26 ml/min (>60); GFR (African American) 31 ML/MIN (>60); Glucose 172 mg/dl (74-100)
== END 2024-08-19 23:59 | disposition home or self-care (01) ==
LOC: LAB.DROPOF 15:22
PROVIDERS: PCP Internal Medicine; Visit Provider Internal Medicine
DX: E87.5 Hyperkalemia (principal); R60.9 Edema, unspecified; N18.4 Chronic kidney disease, stage 4 (severe); E11.22 Type 2 diabetes mellitus with diabetic chronic kidney disease; Z79.4 Long term (current) use of insulin
CPT/HCPCS: 80048

== ENCOUNTER 2024-08-24 20:22 | Observation (INO) | payer MEDICARE, SELFPAY ==
[2024-08-24 20:22] VITALS: BP 201/83; PULSE 76; RESP 20; TEMP 36.9; O2SAT 93; BMI 29.9
--- NOTE | 2024-08-24 20:24 | ED_ITS ---
<Statement entered by Melinda Adamson DO - 08/24/24 21:26> I was consulted by the CHARLA, and we discussed the complexity of the problems being addressed. I approved the treatment and management plan for this patient's care in the emergency department, thus performing a substantive portion of the medical decision making. Melinda Adamson DO Discharge Plan Disposition Patient Disposition: Admitted Condition: Good Chief Complaint: Fall Prescriptions Prescriptions: No Action dapagliflozin propanediol [Farxiga] 10 mg tablet 10 mg PO DAILY hydrocodone-acetaminophen 5-325 mg tablet 1 tab PO Q8H PRN (Reason: pain) Qty: 90 0RF azithromycin 250 mg tablet See Rx Instructions PO .COMPLEX Qty: 6 0RF Rx Instructions: For 250 mg dose pack: take 500 mg today (day 1), then 250 mg for 4 days (days 2-5) PO guaifenesin [Mucinex] 1,200 mg tablet extended release 12hr 1,200 mg PO BID PRN (Reason: congestion) Qty: 10 0RF bumetanide 1 mg tablet 1 mg PO QAM Qty: 90 1RF furosemide 20 mg tablet 60 mg PO DAILY gabapentin 400 mg capsule 400 mg PO TID Qty: 90 0RF clonazepam 0.5 mg tablet 0.5 mg PO BID PRN (Reason: anxiety) Qty: 60 0RF insulin lispro [Humalog KwikPen Insulin] 100 unit/mL insulin pen 0 - 14 unit SQ TIDWMEAL Qty: 10 10RF Rx Instructions: Per home sliding scale If blood sugar 151-200 take 4 units short acting insulin If blood sugar 200-250 take 8 units short acting insulin If blood sugar 251-300 take 12 units short acting insulin If blood sugar 301-350 take 14 units short acting insulin If blood sugar greater than 350 take 14 units insulin and call physician for further instructions. levothyroxine 88 mcg tablet 88 mcg PO DAILY hydralazine 25 mg Tablet 25 mg PO TID 30 Days Qty: 90 0RF insulin glargine [Lantus Solostar U-100 Insulin] 100 unit/mL (3 mL) insulin pen 18 unit SQ BID Qty: 10 10RF Referrals Follow up/Referrals: Lila Parekh APRN [Primary Care Provider] - See instructions Clinical Impressions Clinical Impression: Sepsis without septic shock, Urinary tract infectious disease, Asthenia, Multiple falls Print Language Print Language: Chinese Discharge ED Provider: Melinda Adamson General Adult HPI General Chief complaint: Fall Stated complaint: Fall Time Seen by Provider: 08/24/24 20:22 History of Present Illness HPI narrative: Patient presents for evaluation of a fall. 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 Patient was recently admitted at our facility from 07/25/2024 to 07/27/2024 for urinary tract infection sepsis without septic shock and DKA. My understanding is her son wanted her admitted to [place] for rehab however patient declined. Patient reports that she has been feeling weak over the last 2 days however she has fallen twice today. The last 1 being the reason for the EMS call. She fell backwards striking her head on the ground. Patient reports that she has pain all over but no specific focal complaints. Patient moves all 4 extremities is neurovascularly intact with a GCS of 15 currently at the time of my exam. She denies chest pain shortness of breath fever chills hemoptysis hematochezia melena nausea vomiting diarrhea. She denies cough congestion or recent sick contacts. Related Data Home Medications ?Medication ?Instructions ?Recorded ?Confirmed levothyroxine 88 mcg tablet 88 mcg PO DAILY 07/26/24 08/24/24 dapagliflozin propanediol 10 mg 10 mg PO DAILY 07/28/24 08/24/24 tablet (Farxiga) furosemide 20 mg tablet 60 mg PO DAILY 08/02/24 08/24/24 Previous Rx's ?Medication ?Instructions ?Recorded insulin lispro 100 unit/mL 0 - 14 unit (0 - 0.14 mL) SQ 12/14/22 subcutaneous pen (Humalog KwikPen TIDWMEAL Diabetes #10 mL (U-100) Insulin) hydralazine 25 mg tablet 25 mg PO TID 30 days #90 tabs 07/27/24 insulin glargine 100 unit/mL (3 18 unit (0.18 mL) SQ BID Diabetes 07/27/24 mL) subcutaneous pen (Lantus #10 mL Solostar U-100 Insulin) hydrocodone 5 mg-acetaminophen 325 1 tab PO Q8H PRN pain #90 tabs 07/28/24 mg tablet gabapentin 400 mg capsule 400 mg PO TID #90 caps 08/09/24 clonazepam 0.5 mg tablet 0.5 mg PO BID PRN anxiety #60 tabs 08/19/24 bumetanide 1 mg tablet 1 mg PO QAM #90 tabs 08/20/24 azithromycin 250 mg tablet See Rx Instructions PO .COMPLEX #6 08/24/24 tabs guaifenesin 1,200 mg tablet, 1,200 mg PO BID PRN congestion #10 08/24/24 extended release 12 hr (Mucinex) tabs Allergies Allergy/AdvReac Type Severity Reaction Status Date / Time moxifloxacin Allergy Severe S-ANAPHYLAX Verified 08/24/24 12:09 IS Sulfa (Sulfonamide Allergy Mild NA-NAUSEA/V Verified 08/24/24 12:09 Antibiotics) OMITING PFSH PFSH Disclaimer: The information contained in this section may have been updated after the patient was seen, as this information can be updated by other users. Medical History (Updated 08/24/24 @ 21:18 by FADI Coon) Sinusitis Hyperkalemia Edema Urinary tract infection Hyperkalemia High anion gap metabolic acidosis Renal failure Falls frequently Viral URI with cough Skin infection, bacterial Avulsed toenail Ulcer of right great toe due to diabetes mellitus Frequent falls Statin intolerance Hyperlipidemia Bradycardia Syncope and collapse Syncope Falls Neuropathy Osteopenia Onychodystrophy Callus of foot Pain of toe of right foot Fracture of second toe, right, closed Edema of toe Acquired hammer toe Closed rib fracture Fall Hyperglycemia due to type 2 diabetes mellitus Bacteremia due to Klebsiella pneumoniae UTI due to Klebsiella species Gram-negative bacteremia DKA (diabetic ketoacidoses) Hyperglycemia due to type 2 diabetes mellitus CLL (chronic lymphocytic leukemia) History of hypertension Diabetes mellitus Surgical History H/O lithotripsy History of cholecystectomy Family History Other Cancer Congestive heart failure (CHF) Heart disease Lymphoma Social History Smoking Status: Never smoker alcohol intake: never substance use type: denies use current occupational status: unemployed Travel in the last 8 weeks: None household members: none housing: house caffeine: Yes Have you lived/traveled outside [place] in past 30 days?: No Contact w/someone who lives/traveled outside US past 30 days?: No Exposure to someone with infectious disease in past 14 days?: No Do you have a fever (greater than 100.4 F or 38 C)?: No Have you tested positive for COVID-19: No Exposed to someone with COVID-19 in past 14 days?: No Do you have a sore throat?: No Do you have a cough?: No Do you have any weakness?: No Do you have any diarrhea?: No Are you experiencing any unusual bleeding?: No Do you have any muscle aches/pain?: No Do you have any abdominal pain?: No Are you experiencing loss of taste or smell?: No Other Medical History Have you received the Flu Vaccine for this season: No Have you received the Pneumonia Vaccine: No ROS Obtained: Yes Systems reviewed as appropriate & no additional complaints except as documented Physical Exam General General appearance: alert and in no apparent distress Respiratory Respiratory exam: Present normal lung sounds bilaterally Cardiovascular Cardiovascular exam: Present regular rate Neurological Exam Neurological exam: Present alert, oriented X3 and CN II-XII intact; Absent motor sensory deficit Medical Decision Making Medical Records Medical records reviewed: Yes I reviewed the patient's medical records. Screening: Per USPSTF and CDC recommendations, given the prevalence of disease in our region, it is our hospital?s policy to screen for HIV and viral Hepatitis for all patients aged 18 and over and those with ongoing risk factors. Xu Inquiry Pt receiving controlled substance: No Vital Signs: 08/24/24 20:22 Temperature 98.4 F Temperature Source Oral Pulse Rate [Right Brachial] 76 Respiratory Rate 20 Blood Pressure [Right Arm] 201/83 H Blood Pressure Mean [Right Arm] 122 Blood Pressure Source [Right Arm] Automatic Cuff Blood Pressure Position [Right Arm] Sitting 02 Sat by Pulse Oximetry 93 L Oxygen Delivery Method Room Air Lab Data Lab results reviewed: Yes I reviewed the patient's lab results. Lab Results 08/24/24 20:20: WBC 14.0 H, RBC 3.16 L, Hgb 9.1 L, Hct 28.7 L, MCV 90.8, MCH 28.8, MCHC 31.7 L, RDW 14.4, Plt Count 220, MPV 10.3, Neut % (Auto) 48.8, Lymph % (Auto) 42.3, [place] % (Auto) 5.1, Eos % (Auto) 2.9, Baso % (Auto) 0.4, Neut # (Auto) 6.8, Lymph # (Auto) 5.9 H, [place] # (Auto) 0.7, Eos # (Auto) 0.4, Baso # (Auto) 0.1, Sodium 137, Potassium 3.9, Chloride 105, Carbon Dioxide 26, Anion Gap 9.9, BUN 31 H, Creatinine 1.90 H, Estimated Creat Clear 36, Estimated GFR 26 L, Est GFR ( Amer) 31 L, Glucose 257 H, Calcium 8.5, Total Bilirubin 0.2, AST 19, ALT 17, Alkaline Phosphatase 99, Total Protein 6.0 L, Albumin 3.4 L, Globulin 2.6, Albumin/Globulin Ratio 1.3 08/24/24 20:41: Urine Color Yellow, Urine Appearance Clear, Urine pH 6.0, Ur Specific [place] 1.020, Urine Protein 3+ A, Urine Glucose (UA) 2+, Urine Ketones Negative, Urine Blood 2+ A, Urine Nitrate Negative, Urine Bilirubin Negative, Urine Urobilinogen 0.2, Ur Leukocyte Esterase Negative 08/24/24 20:20 08/24/24 20:20 Orders (Tests/Meds): ED MEDICATIONS Generic Name Dose Route Start Last Admin Trade Name Freq PRN Reason Stop Dose Admin Lactated Ringer's 1,000 mls @ 999 mls/hr 08/24/24 20:24 08/24/24 20:34 Lactated Ringer's 1000 Ml Bag IV 08/24/24 21:24 999 mls/hr .Q1H1M ONE Administration Discontinued Medications Generic Name Dose Route Start Last Admin Trade Name Freq PRN Reason Stop Dose Admin Acetaminophen 1,000 mg 08/24/24 20:24 08/24/24 20:34 Acetaminophen 500mg Tab PO 08/24/24 20:25 1,000 mg ONCE ONE Administration Ondansetron HCl 4 mg 08/24/24 20:24 08/24/24 20:34 Ondansetron 4mg/2ml Vial IV 08/24/24 20:25 4 mg ONCE ONE Administration ORDERS Category Date Time Status CT bony pelvis Stat Cat Scan 08/24/24 20:[address] cervical spine wo con Stat Cat Scan 08/24/24 20:[address] head/brain wo con Stat Cat Scan 08/24/24 20:[address] lumbar spine wo con Stat Cat Scan 08/24/24 20:[address] thoracic spine wo con Stat Cat Scan 08/24/24 20:25 Ordered CBC w/Auto Diff [Complete Blood Count Auto Diff] Stat Lab 08/24/24 20:20 Completed CMP [Comprehensive Metabolic Panel] Stat Lab 08/24/24 20:20 Results Full Resp Panel w/COVID ([facility]) Routine Lab 08/24/24 20:54 Ordered Procalcitonin Stat Lab 08/24/24 20:20 Results UA [Urinalysis and Microscopic] Stat Lab 08/24/24 20:41 Results Medical Decision Narrative: In summary patient is a 73-year-old female who presents to the emergency department for evaluation of a fall and asthenia. Patient is actually hypertensive on arrival at 201/83 with a pulse of 76 with normal sinus rhythm on the bedside monitor breathing 20 times a minute satting at 93% on room air upon arrival, with a temperature of 98.4. Physical exam is remarkable for tenderness all over her body just about anywhere I touch however there is no palpable bony deformities there is actually no stigmata of a fall there is no hematomas ecchymosis abrasions contusions bony deformities. I palpated the entire dorsal spine without step-offs. Patient does not actually have C-spine tenderness on exam. Cranium is intact. Tasia Coma Score is currently 15 cranial nerves II through XII are intact grossly to exam patient appears to be awake alert and oriented to person place and circumstance. Patient has full range of motion of all 4 extremities with no focal neurologic deficits. Breath sounds clear and equal bilaterally to the bases there is no abdominal tenderness no rebound or guarding or rigidity normal bowel sounds. Differential diagnosis includes syncope versus failure to thrive versus dystonia versus infection versus fracture versus intracranial injury etc. Initial workup will be conducted with ED trauma scans however patient's GFR is significantly impaired at baseline this contrast currently is not indicated thus will defer unless her symptoms change currently. Initial interventions include crystalloid bolus and Tylenol and Zofran for now. Initial workup reviewed by me shows that her white count is 14,000 with a absolute neutrophil count of 5.9 BUN is 31 creatinine is 1.9 both of which are better her baseline GFR is 26 again at her baseline glucose is 257 she has no anion gap no acidosis and the remainder of her hematologic labs are nonactionable. Urinalysis shows 3 protein 2+ of blood nitrite negative leukocyte Estrace negative and microscopic exam shows 20-50 red cells 50-100 white cells 10-20 epithelial cells 2+ bacteria 2+ yeast however patient has no dysuria symptoms currently though this could be consistent with urinary tract infection. Review of her micro bio gram from her UA at the end of June shows that she had Klebsiella that was pansensitive. My informed interpretation of her CT imaging does not show evidence of acute bony injury or other acute processes prior to radiologist read. Please see their final report. Will start the patient on Rocephin and await culture speciation to tailor antibiotics. Given her multiple falls I had an indirect discussion with hospital medicine regarding patient MIRANDA findings and patient management and she will be admitted for further evaluation and care. Critical Care Critical Care Time Critical Care Time: Yes Attestation: On 08/24/24, the high probability of a clinically significant, sudden or life threatening deterioration of the following system(s) required my full and direct attention, intervention and personal management. The time I documented below is in addition to time spent performing reported procedures but includes the following listed in this critical care notation. Total Time Total Critical Care Time: 35
--- NOTE | 2024-08-24 20:25 | CT_ITS ---
PROCEDURE INFORMATION: Exam: CT Pelvis Without Contrast, Skeleton Exam date and time: 08/24/2024 9:01 PM Age: 73 years old Clinical indication: Injury or trauma; Additional info: Trauma, critical injury suspected TECHNIQUE: Imaging protocol: Computed tomography of the pelvis without contrast. Exam focused on the skeleton. Radiation optimization: All CT scans at this facility use at least one of these dose optimization techniques: automated exposure control; mA and/or kV adjustment per patient size (includes targeted exams where dose is matched to clinical indication); or iterative reconstruction. COMPARISON: CT BONY PELVIS 07/25/2024 1:19 PM FINDINGS: Appendix: Incidentally noted is a normal appendix Intraperitoneal space: No free fluid in the pelvis. Bones/joints: Chronic degenerative disc disease of the L5-S1 levels. Soft tissues: Mild anasarca IMPRESSION: 1. No visible acute fracture/malalignment. 2. Incidental findings above.
--- NOTE | 2024-08-24 20:25 | CT_ITS ---
PROCEDURE INFORMATION: Exam: CT Cervical Spine Without Contrast Exam date and time: 08/24/2024 8:54 PM Age: 73 years old Clinical indication: Injury or trauma; Additional info: Trauma, critical injury suspected TECHNIQUE: Imaging protocol: Computed tomography of the cervical spine without contrast. Radiation optimization: All CT scans at this facility use at least one of these dose optimization techniques: automated exposure control; mA and/or kV adjustment per patient size (includes targeted exams where dose is matched to clinical indication); or iterative reconstruction. COMPARISON: CT CERVICAL SPINE WO CON 07/25/2024 1:12 PM FINDINGS: Bones: No acute fracture. Normal alignment. No significant disc bulge or herniation. No severe spinal canal stenosis. No significant neural foraminal narrowing. Lungs: Lung apices are normal. Soft tissues: Unremarkable. IMPRESSION: No acute findings.
--- NOTE | 2024-08-24 20:25 | CT_ITS ---
PROCEDURE INFORMATION: Exam: CT Lumbar Spine Without Contrast Exam date and time: 08/24/2024 8:59 PM Age: 73 years old Clinical indication: Injury or trauma; Additional info: Trauma, critical injury suspected TECHNIQUE: Imaging protocol: Computed tomography of the lumbar spine without contrast. Radiation optimization: All CT scans at this facility use at least one of these dose optimization techniques: automated exposure control; mA and/or kV adjustment per patient size (includes targeted exams where dose is matched to clinical indication); or iterative reconstruction. COMPARISON: CT LUMBAR SPINE WO CON 07/25/2024 1:17 PM FINDINGS: Bones/joints: No acute fracture. Normal alignment. No significant disc bulge or herniation. No severe spinal canal stenosis. No significant neural foraminal narrowing. Decreased disc space height-chronic at the L5-S1 level without clearly defined bony central canal stenosis. Generalized osteopenia. Soft tissues: Unremarkable. IMPRESSION: No acute findings.
--- NOTE | 2024-08-24 20:25 | CT_ITS ---
PROCEDURE INFORMATION: Exam: CT Head Without Contrast Exam date and time: 08/24/2024 8:52 PM Age: 73 years old Clinical indication: Injury or trauma; Other: Trauma, critical injury suspected; Blunt trauma (contusions or hematomas) TECHNIQUE: Imaging protocol: Computed tomography of the head without contrast. Radiation optimization: All CT scans at this facility use at least one of these dose optimization techniques: automated exposure control; mA and/or kV adjustment per patient size (includes targeted exams where dose is matched to clinical indication); or iterative reconstruction. COMPARISON: CT HEAD/BRAIN WO CON 07/25/2024 1:11 PM FINDINGS: Brain: Mild cerebral and cerebellar atrophy. No hemorrhage. Symmetric hypoattenuation in the periventricular white matter. No mass or mass effect. Cerebral ventricles: Normal. Paranasal sinuses: Visualized sinuses are unremarkable. No fluid levels. Mastoid air cells: Visualized mastoid air cells are well aerated. Bones: Unremarkable. No acute fracture. Soft tissues: Unremarkable. IMPRESSION: 1. No acute intracranial abnormality. 2. Age-related cortical atrophy. 3. Hypoattenuation in the periventricular white matter, suspicious for small vessel ischemic disease.
--- NOTE | 2024-08-24 20:25 | CT_ITS ---
PROCEDURE INFORMATION: Exam: CT Thoracic Spine Without Contrast Exam date and time: 08/24/2024 8:57 PM Age: 73 years old Clinical indication: Injury or trauma; Additional info: Trauma, critical injury suspected TECHNIQUE: Imaging protocol: Computed tomography of the thoracic spine without contrast. Radiation optimization: All CT scans at this facility use at least one of these dose optimization techniques: automated exposure control; mA and/or kV adjustment per patient size (includes targeted exams where dose is matched to clinical indication); or iterative reconstruction. COMPARISON: CT THORACIC SPINE WO CON 07/25/2024 1:14 PM FINDINGS: Bones/joints: T9 incidentally noted hemangioma. Enostosis present at vertebral body T4. Osteopenia. Bony central canal is widely patent. No visible acute fracture. Soft tissues: Unremarkable. IMPRESSION: Incidental findings above. No visible acute fracture/malalignment.
[2024-08-24] MEDS: LACTATED RINGERS 1000ML 1,000 ML 999 ML IV (20:34)
[2024-08-24] MEDS: ONDANSETRON 4MG/2ML VIAL 4 MG IV (20:34)
[2024-08-24] MEDS: ACETAMINOPHEN 500MG TAB 1000 MG PO (20:34)
[2024-08-24 20:42] LABS: Basophils # 0.1 K/mm3 (0-0.2); Basophils % 0.4 % (0.1-2.0); Eosinophils # 0.4 K/mm3 (0.0-0.4); Eosinophils % 2.9 % (0.1-12.0); Hematocrit 28.7 % (37.0-47.0); Hemoglobin 9.1 g/dL (12.2-16.2); Lymphocytes # 5.9 K/mm3 (0.7-4.5); Lymphocytes % 42.3 % (10-50); Mean Corpuscular HGB Conc 31.7 g/dL (31.8-35.4); Mean Corpuscular Hemoglobin 28.8 pg (27.0-31.2); Mean Corpuscular Volume 90.8 fl (81-99); Mean Platelet Volume 10.3 fl (7.4-10.4); Monocytes # 0.7 K/mm3 (0.1-1.0); Monocytes % 5.1 % (1.7-9.3); Neutrophils # 6.8 K/mm3 (1.8-7.8); Neutrophils % 48.8 % (37.0-80.0); Platelet Count 220 K/mm3 (142-424); Red Blood Count 3.16 M/mm3 (4.20-5.40); Red Cell Distribution Width 14.4 % (11.5-17.5)
[2024-08-24 20:43] LABS: Albumin Level 3.4 g/dl (3.5-5.0); Chloride 105 mmol/L (98-107); Sodium 137 mmol/L (136-145)
[2024-08-24 20:44] LABS: Potassium 3.9 mmoL/L (3.5-5.1)
[2024-08-24 20:45] LABS: Microscopic, Urine URINE MICROSCOPIC (MICROSCOPIC)
[2024-08-24 20:46] LABS: Alanine Aminotransferase 17 U/L (12-78); Albumin/Globulin Ratio 1.3 (1.1-1.8); Alkaline Phosphatase 99 U/L (38-126); Anion Gap 9.9 mEq/L (5-15); Aspartate Amino Transferase 19 U/L (14-36); Bilirubin,Total 0.2 mg/dl (0.2-1.3); Blood Urea Nitrogen 31 mg/dl (7-17); Calcium 8.5 mg/dl (8.4-10.2); Carbon Dioxide 26 mmol/L (22.0-30.0); Creatinine Clearance Estimated 36 mL/min (50-200); Estimated Glomerular Filt Rate 26 ml/min (>60); GFR (African American) 31 ML/MIN (>60); Globulin 2.6 g/dL (1.3-3.2); Glucose 257 mg/dl (74-100)
[2024-08-24 20:48] LABS: Appearance,Urine CLEAR (Clear); Bilirubin,Urine Negative (Negative); Blood, Urine 2+ (Negative); Color,Urine YELLOW (Yellow); Glucose,Urine (UA) 2+ (Negative); Ketones,Urine Negative (Negative); Leukocyte Esterase,Urine Negative (Negative); Nitrate,Urine Negative (Negative); Protein,Urine 3+ (Negative); Urobilinogen,Urine 0.2 EU/dl (0.2)
--- NOTE | 2024-08-24 20:49 | PC.NURSE ---
Pt to CT scan via stretcher
[2024-08-24 21:01] LABS: Bacteria,Urine 2+ /lpf; RBC,Urine 20-50 #/hpf (0-3); WBC,Urine 50-100 #/hpf (0-3); Yeast,Urine 2+ /lpf
--- NOTE | 2024-08-24 21:08 | PC.NURSE ---
Pt back from CT scan
[2024-08-24 21:13] LABS: Procalcitonin 0.137 ng/mL (0.0-2.0)
[2024-08-24 21:15] LABS: Adenovirus,PCR Not Detected (NotDetected); Bordetella Pertussis Not Detected (NotDetected); Chlamydophila Pneumoniae, PCR Not Detected (NotDetected); Coronavirus 19, PCR Not Detected (NotDetected); Coronavirus 229E Not Detected (NotDetected); Coronavirus NL63 Not Detected (NotDetected); Coronovirus HKU1,PCR Not Detected (NotDetected); Human Metapneumovirus Not Detected (NotDetected); Influenza A, PCR Not Detected (NotDetected); Influenza AH1, 2009 Not Detected (NotDetected); Influenza AH1, PCR Not Detected (NotDetected); Influenza AH3,PCR Not Detected (NotDetected); Influenza B, PCR Not Detected (NotDetected); Mycoplasma Pneumoniae, PCR Not Detected (NotDetected); Parainfluenza 1, PCR Not Detected (NotDetected); Parainfluenza 2, PCR Not Detected (NotDetected); Parainfluenza 3, PCR Not Detected (NotDetected); Parainfluenza 4, PCR Not Detected (NotDetected); Respiratory Syncytial Virus Not Detected (NotDetected); Rhinovirus/Enterovirus Not Detected (NotDetected)
[2024-08-24] MEDS: CEFTRIAXONE 1 GM 1 GM in 0.9 % SODIUM CHLORIDE 50 ML IV (21:34)
--- NOTE | 2024-08-24 21:52 | P.HP_ITS ---
<Statement entered by Celso Dominguez MD - 08/30/24 22:57> Personally evaluated patient and agree with plan of care as outlined by the TRAVELING REPRESENTATIVE. History of Present Illness *Admission Date: 08/24/24 *Reason for visit:: Fall *History of present illness: This is a 73-year-old female who has a past medical history significant for stage IV chronic kidney disease, hyperlipidemia, bradycardia, syncope, neuropathy, osteopenia, CLL, and hypertension who presents after she fell twice today. Due to patient's symptoms, she presented to the emergency room for evaluation. While in emergency room, patient underwent multiple scans of the head, cervical spine, pelvis, thoracic spine, and lumbar spine-all imaging were without any acute findings. Urinalysis revealed a possible urinary tract infection. Patient did complain of some profound weakness and deconditio eliana, so she has been admitted for further management. During my evaluation of the patient, patient states that she fell twice today due to significant weakness. She states that it was difficult for her to get up out of her chair. She has been having longstanding weakness for the past 2 weeks. During my evaluation I noted the patient has significant edema to her bilateral lower extremities. She mentions that Dr. Cain started Lasix in the past and that was not helpful, so she recently was prescribed Bumex and she reports that she has been having some decrease in her swelling to her bilateral lower extremities. She mentions she has been retaining fluid for some time. She is currently denying any headache, upper or lower extremity unilateral weakness, lateral gaze deficit, heart failure, chest pain, shortness of breath, dyspnea, nausea, vomiting, fever, chills, rigors, or diarrhea. Additional pertinent vitals obtained include a white blood cell count of 14, red blood cell count of 3.16, hemoglobin of 9.1, hematocrit 28.7, BUN of 31, creatinine 1.90, GFR of 26, blood glucose of 257, total protein of 6, albumin 3.4, and urinalysis revealed 3+ protein/2+ blood/red blood cells 20-50/5 blood cells 50-100/2+ bacteria/2+ yeast. [facility] Disclaimer: The information contained in this section may have been updated after the patient was seen, as this information can be updated by other users. Medical History (Updated 08/24/24 @ 22:03 by Fabrizio Bowling APRN) Sinusitis Hyperkalemia Edema Urinary tract infection Hyperkalemia High anion gap metabolic acidosis Renal failure Falls frequently Viral URI with cough Skin infection, bacterial Avulsed toenail Ulcer of right great toe due to diabetes mellitus Frequent falls Statin intolerance Hyperlipidemia Bradycardia Syncope and collapse Syncope Falls Neuropathy Osteopenia Onychodystrophy Callus of foot Pain of toe of right foot Fracture of second toe, right, closed Edema of toe Acquired hammer toe Closed rib fracture Fall Hyperglycemia due to type 2 diabetes mellitus Bacteremia due to Klebsiella pneumoniae UTI due to Klebsiella species Gram-negative bacteremia DKA (diabetic ketoacidoses) Hyperglycemia due to type 2 diabetes mellitus CLL (chronic lymphocytic leukemia) History of hypertension Diabetes mellitus Surgical History H/O lithotripsy History of cholecystectomy Family History Other Cancer Congestive heart failure (CHF) Heart disease Lymphoma Social History Smoking Status: Never smoker alcohol intake: never substance use type: denies use current occupational status: unemployed Travel in the last 8 weeks: None household members: none housing: house caffeine: Yes Have you lived/traveled outside [place] in past 30 days?: No Contact w/someone who lives/traveled outside US past 30 days?: No Exposure to someone with infectious disease in past 14 days?: No Do you have a fever (greater than 100.4 F or 38 C)?: No Have you tested positive for COVID-19: No Exposed to someone with COVID-19 in past 14 days?: No Do you have a sore throat?: No Do you have a cough?: No Do you have any weakness?: No Do you have any diarrhea?: No Are you experiencing any unusual bleeding?: No Do you have any muscle aches/pain?: No Do you have any abdominal pain?: No Are you experiencing loss of taste or smell?: No Other Medical History Have you received the Flu Vaccine for this season: No Have you received the Pneumonia Vaccine: No Review of Systems Review of Systems Review of systems:: pertinent systems reviewed and negative unless documented below Constitutional Constitutional: Reports system reviewed and no additional complaints, except as documented Eyes Eyes: Reports system reviewed and no additional complaints, except as documented ENT Ears, Nose, Mouth, and Throat: Reports system reviewed and no additional complaints, except as documented *Cardiovascular Cardiovascular: Reports leg edema *Respiratory Respiratory: Reports system reviewed and no additional complaints, except as documented *Gastrointestinal Gastrointestinal: Reports system reviewed and no additional complaints, except as documented *Genitourinary Genitourinary: Reports system reviewed and no additional complaints, except as documented *Musculoskeletal Musculoskeletal: Reports muscle weakness and Reports myalgias Integumentary/Breasts Skin/Breast: Reports skin swelling *Neurologic Neurologic: Reports system reviewed and no additional complaints, except as documented Psychiatric Psychiatric: Reports system reviewed and no additional complaints, except as documented Endocrine Endocrine: Reports system reviewed and no additional complaints, except as documented Hematologic/Lymphatic Hematologic/Lymphatic: Reports system reviewed and no additional complaints, except as documented Allergic/Immunologic Allergic/Immunologic: Reports system reviewed and no additional complaints, except as documented Meds Home Medications and Allergies Home Medications ?Medication ?Instructions ?Recorded ?Confirmed ?Type insulin lispro 100 unit/mL 0 - 14 unit (0 - 0.14 mL) SQ 12/14/22 08/24/24 Rx subcutaneous pen (Humalog KwikPen TIDWMEAL Diabetes #10 mL (U-100) Insulin) levothyroxine 88 mcg tablet 88 mcg PO DAILY 07/26/24 08/24/24 History hydralazine 25 mg tablet 25 mg PO TID 30 days #90 tabs 07/27/24 08/24/24 Rx insulin glargine 100 unit/mL (3 18 unit (0.18 mL) SQ BID Diabetes 07/27/24 08/24/24 Rx mL) subcutaneous pen (Lantus #10 mL Solostar U-100 Insulin) dapagliflozin propanediol 10 mg 10 mg PO DAILY 07/28/24 08/24/24 History tablet (Farxiga) hydrocodone 5 mg-acetaminophen 325 1 tab PO Q8H PRN pain #90 tabs 07/28/24 08/24/24 Rx mg tablet furosemide 20 mg tablet 60 mg PO DAILY 08/02/24 08/24/24 History gabapentin 400 mg capsule 400 mg PO TID #90 caps 08/09/24 08/24/24 Rx clonazepam 0.5 mg tablet 0.5 mg PO BID PRN anxiety #60 tabs 08/19/24 08/24/24 Rx bumetanide 1 mg tablet 1 mg PO QAM #90 tabs 08/20/24 08/24/24 Rx azithromycin 250 mg tablet See Rx Instructions PO .COMPLEX #6 08/24/24 08/24/24 Rx tabs guaifenesin 1,200 mg tablet, 1,200 mg PO BID PRN congestion #10 08/24/24 08/24/24 Rx extended release 12 hr (Mucinex) tabs New Prescriptions to Start Prescriptions: Allergies Allergy/AdvReac Type Severity Reaction Status Date / Time moxifloxacin Allergy Severe S-ANAPHYLAX Verified 08/24/24 12:09 IS Sulfa (Sulfonamide Allergy Mild NA-NAUSEA/V Verified 08/24/24 12:09 Antibiotics) OMITING Exam Data for Last 24 hours Vital signs and Labs for Last 24 Hours: Temp Pulse Resp BP Pulse Ox O2 Del Method 98.4 F 76 20 201/83 H 93 L Room Air 08/24/24 20:22 08/24/24 20:22 08/24/24 20:22 08/24/24 20:22 08/24/24 20:22 08/24/24 20:22 Laboratory Results - last 24 hr 08/24/24 20:20: WBC 14.0 H, RBC 3.16 L, Hgb 9.1 L, Hct 28.7 L, MCV 90.8, MCH 28.8, MCHC 31.7 L, RDW 14.4, Plt Count 220, MPV 10.3, Neut % (Auto) 48.8, Lymph % (Auto) 42.3, [place] % (Auto) 5.1, Eos % (Auto) 2.9, Baso % (Auto) 0.4, Neut # (Auto) 6.8, Lymph # (Auto) 5.9 H, [place] # (Auto) 0.7, Eos # (Auto) 0.4, Baso # (Auto) 0.1, Sodium 137, Potassium 3.9, Chloride 105, Carbon Dioxide 26, Anion Gap 9.9, BUN 31 H, Creatinine 1.90 H, Estimated Creat Clear 36, Estimated GFR 26 L, Est GFR ( Amer) 31 L, Glucose 257 H, Calcium 8.5, Total Bilirubin 0.2, AST 19, ALT 17, Alkaline Phosphatase 99, Total Protein 6.0 L, Albumin 3.4 L, Globulin 2.6, Albumin/Globulin Ratio 1.3, Procalcitonin 0.137 08/24/24 20:41: Urine Color Yellow, Urine Appearance Clear, Urine pH 6.0, Ur Specific Supai 1.020, Urine Protein 3+ A, Urine Glucose (UA) 2+, Urine Ketones Negative, Urine Blood 2+ A, Urine Nitrate Negative, Urine Bilirubin Negative, Urine Urobilinogen 0.2, Ur Leukocyte Esterase Negative, Urine RBC 20-50, Urine WBC 50-100, Ur Squamous Epith Cells 10-20, Urine Bacteria 2+, Urine Yeast 2+ I & O for Last 24 hours: Intake & Output 08/21/24 08/22/24 08/23/24 08/24/24 23:59 23:59 23:59 23:59 Weight 89.358 kg Constitutional Constitutional: no acute distress and cooperative *Routine HEENT Exam Head: Present normocephalic and atraumatic Eye: Present EOMI, PERRL and normal accommodation ENT: Present mucous membranes moist *Routine Neck Exam Neck: Present supple and full ROM *Routine Respiratory Exam Respiratory: Present normal respiratory effort, able to speak in complete sentences and symmetric chest movement *Routine Cardiovascular Exam Cardiovascular: Present RRR, Normal S1 and Normal S2 *Routine Abdominal Exam Abdominal: Present soft and normoactive bowel sounds *Routine Rectal Exam Rectal:: deferred *Routine Genitalia Exam Genitalia:: deferred *Routine Extremities Exam Extremities: Present edema and normal capillary refill Comments: 4+ pitting edema noted bilateral lower extremities Routine Back/Spine/Pelvis Exam Back/Spine: Present full ROM *Routine Skin Exam Skin: Present intact, dry and warm *Routine Neurological Exam Neurological: Present alert, oriented X3, CN II-XII intact and normal speech Routine Psychiatric Exam Psychiatric: Present normal affect, normal thought process, cooperative, good insight and good judgment H&P: Result Impressions This is a 73-year-old female who presents with weakness that has been ongoing for at least 2 weeks. Noted to have significant hypervolemia with bilateral lower extremities having 3-4 months edema. Urinalysis has probable finding consistent with urinary tract infection Assessment and Plan *Assessment and plan (1) Multiple falls: Status: Acute Category: Medical Code(s): R29.6 - Repeated falls (2) Hypervolemia: Status: Acute Qualifiers: Hypervolemia type: unspecified Qualified Code(s): E87.70 - Fluid overload, unspecified Category: Medical Code(s): E87.70 - Fluid overload, unspecified (3) UTI (urinary tract infection): Status: Acute Qualifiers: Hematuria presence: without hematuria Urinary tract infection type: site unspecified Qualified Code(s): N39.0 - Urinary tract infection, site not specified Category: Medical Code(s): N39.0 - Urinary tract infection, site not specified (4) Leukocytosis: Status: Acute Qualifiers: Leukocytosis type: unspecified Qualified Code(s): D72.829 - Elevated white blood cell count, unspecified Category: Medical Code(s): D72.829 - Elevated white blood cell count, unspecified (5) CKD (chronic kidney disease): Status: Chronic Qualifiers: Chronic kidney disease stage: stage 4 (GFR 15-29) Qualified Code(s): N18.4 - Chronic kidney disease, stage 4 (severe) Category: Medical Code(s): N18.9 - Chronic kidney disease, unspecified (6) CLL (chronic lymphocytic leukemia): Status: Chronic Category: Medical Code(s): C91.10 - Chronic lymphocytic leukemia of B-cell type not having achieved remission (7) Weakness: Status: Acute Category: Medical Code(s): R53.1 - Weakness (8) Anemia: Status: Acute Qualifiers: Anemia type: unspecified type Qualified Code(s): D64.9 - Anemia, unspecified Category: Medical Code(s): D64.9 - Anemia, unspecified (9) Hyperglycemia due to type 2 diabetes mellitus: Status: Acute Qualifiers: Diabetes mellitus buttermaker helper insulin use: with buttermaker helper use Qualified Code(s): E11.65 - Type 2 diabetes mellitus with hyperglycemia; Z79.4 - termite inspector (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 Urinary tract infection/leukocytosis -Will continue Rocephin IV 1 g daily -Will monitor culture and sensitivity and once revealed we will tailor antibiotics towards sensitivity -Blood cultures -Obtain procalcitonin Chronic kidney disease -Patient appears to be at baseline creatinine -Will monitor BMP daily CLL -White blood cell count may be elevated due to CLL -Will monitor -May consider peripheral smear Weakness -Physical therapy -Occupational Therapy -Patient may benefit from rehab -Obtain TSH Normocytic normochromic anemia: May be in the setting of chronic kidney disease -Will obtain anemia profile Hyperglycemia: Most likely in setting of diabetes type 2 -Sliding scale insulin ACH S with mild scale coverage Plan: Admit patient to the MedSurg unit Up to chair twice daily Place patient on fall precaution SCDs to bilateral lower extreme Daily weight Saline lock 1800 ADA/cardiac diet CBC/BMP daily 5000 units of heparin subcu every 8 hours 25 mg of hydralazine p.o. 3 times daily as needed systolic blood pressure greater 180 or diastolic blood pressure greater than 110 5 mg [place] p.o. every 4 hours as needed moderate pain 2 mg morphine IV push every 4 hours as needed severe pain For milligram Zofran IV push every 8 hours. Nausea vomit Full code If patient weakness continue will consider MRI of the brain with and without contrast I will discuss this case with attending physician Dr. Dominguez and I look forward to more input
[2024-08-24 21:56] VITALS: BP 184/70; PULSE 68; RESP 20; TEMP 36.8; O2SAT 98
--- NOTE | 2024-08-24 21:58 | PC.NURSE ---
Report ELIZABETH Palomo . Soiled sheet removed from under patient and abelino care complete, new sheets and gown placed Pt taken to the floor at this time.
--- NOTE | 2024-08-24 22:02 | PC.NURSE ---
PAtient arrived to floor via stretcher from ED at 22:00.
[2024-08-24] MEDS: BUMETANIDE 1MG/4ML VIAL 2 MG IV (22:07)
[2024-08-24 22:10] VITALS: BP 170/79; PULSE 63; RESP 16; TEMP 36.7; O2SAT 94
[2024-08-24 22:50] VITALS: BMI 30.1
[2024-08-25] VITALS: BP 147/60; PULSE 60; RESP 16; TEMP 36.5; O2SAT 93
[2024-08-25 00:01] LABS: Coronavirus OC43 Detected (NotDetected)
[2024-08-25 04:00] VITALS: BP 160/61; PULSE 62; RESP 16; TEMP 36.7; O2SAT 96; BMI 30.2
[2024-08-25] MEDS: humaLOG 100 UNITS/ML 10ML VIAL (SSI) SUBCUT ×4 (05:35→20:11)
[2024-08-25 05:36] LABS: POC Glucose,Bedside 241 (70-110)
--- NOTE | 2024-08-25 06:00 | CA_ITS ---
APPROVED REPORT EXAM: Comprehensive 2D, Doppler, and color-flow Echocardiogram Books Binder: NOEL Cooper, RVS Ht: 5 ft 3 in Wt: 197lbs BSA: 1.92 BP: 200/89 mmHg Indications: Hypervolemia, Flu A, UTI, HTN, DM, HLD, Weakness, S/p fall Echo Enhancing Agent Comments: Pt scanned bedside in precautions, uncontrollable coughing 2D Dimensions IVSd 1.00 cm F: 0.6-1.0 LA Volume 68.00 mL PWd 1.00 cm F: 0.6 - 1.0 LA Volume Index 35.42 mL/m2 (M/F) 16-34 LVDd 4.98 cm F: 3.9 - 5.3 EF AP4 69.00 % LVDs 3.20 cm F: 2.2 - 3.5 Aortic Root 2.60 cm F: 2.7 - 3.3 Left Atrium 4.10 cm F: 2.7 - 3.8 RVID Base (AP4) 3.18 cm (M/F) 2.5-4.1 LVOT 1.92 cm (M/F) 1.5-2.5 M-Mode Dimensions RVDd 3.11 cm (0.9-2.6) LA Diam 4.76 cm (1.9-4.0) LVDd 4.98 cm (3.5-5.7) Ao Diam 3.25 cm (2.0-3.7) LVDs 3.27 cm (3.5-5.7) AV Cusp 1.51 cm (1.5-2.6) IVSd 1.10 cm (0.6-1.1) PWd 1.10 cm (0.6-1.1) EF (Teich) 63.00% EPSs 0.30 cm FS 34.00% TAPSE 2.71 (<1.7) LV Diastology E/A Ratio 1.0 MED E' 15.2 (>= 7 cm/sec) LAT E' 15.9 (>= 10 cm/sec) Mitral Valve MV E Max Dominick. 131.0 (40-130 cm/s) MV A Velocity 130.0 (40-130 cm/s) E/A Ratio 1.00 MV Decel. Time 157 (160-240 ms) MV Mean Gr. 2.70 (<2mmHg) Pulmonary Valve PV Peak Velocity 134.0 (50-150 cm/s) PA Accel Time 97.00 (>120 msec) Tricuspid Valve TR P. Velocity 247.00 cm/s RAP Estimate 10.00 mmHg RVSP 34.40 mmHg Left Ventricle The left ventricle is normal size. The left ventricular systolic function is normal. The left ventricular ejection fraction is within the normal range. There is increased LV wall thickness. There is normal LV segmental wall motion. Transmitral Doppler flow pattern suggests impaired LV relaxation. LVEF is 60%. Right Ventricle The right ventricle is normal size. The right ventricular systolic function is normal. Atria Left atrium is mildly dilated. Right atrium is mildly dilated. There is no Doppler evidence of interatrial shunt. Aortic Valve Aortic valve is mildly thickened. There is no aortic valvular stenosis. No aortic regurgitation is present. Mitral Valve The mitral valve is normal in structure. No evidence of mitral valve stenosis. Mild mitral regurgitation. Tricuspid Valve Tricuspid valve is grossly normal in structure and function. Mild tricuspid regurgitation. RVSP is 25-30 mmHg. Pulmonic Valve The pulmonary valve is normal in structure. Trace pulmonic regurgitation. Great Vessels The aortic root is normal in size. The ascending aorta is not well-visualized. IVC is normal in size and collapses >50% with inspiration. Pericardium There is no pericardial effusion. Other Information Study Quality: Fair Conclusion Normal biventricular systolic function. Mild biatrial dilation. Mild MR, mild TR. RVSP 25-30 mmHg. Electronically signed by : Nini Malin MD 08/25/2024 13:13:39
[2024-08-25 06:53] LABS: Chloride 106 mmol/L (98-107); Potassium 3.8 mmoL/L (3.5-5.1); Sodium 139 mmol/L (136-145)
[2024-08-25 06:56] LABS: Anion Gap 8.8 mEq/L (5-15); Blood Urea Nitrogen 34 mg/dl (7-17); Carbon Dioxide 28 mmol/L (22.0-30.0); Creatinine Clearance Estimated 33 mL/min (50-200); Estimated Glomerular Filt Rate 23 ml/min (>60); GFR (African American) 28 ML/MIN (>60)
[2024-08-25 06:57] LABS: Glucose 218 mg/dl (74-100)
[2024-08-25 07:00] LABS: Basophils % 0.3 % (0.1-2.0); Eosinophils # 0.4 K/mm3 (0.0-0.4); Eosinophils % 3.8 % (0.1-12.0); Hematocrit 26.2 % (37.0-47.0); Hemoglobin 8.2 g/dL (12.2-16.2); Lymphocytes % 46.8 % (10-50); Mean Corpuscular HGB Conc 31.3 g/dL (31.8-35.4); Mean Corpuscular Hemoglobin 28.6 pg (27.0-31.2); Mean Corpuscular Volume 91.3 fl (81-99); Mean Platelet Volume 10.1 fl (7.4-10.4); Monocytes # 0.7 K/mm3 (0.1-1.0); Monocytes % 6.5 % (1.7-9.3); Neutrophils # 4.5 K/mm3 (1.8-7.8); Neutrophils % 42.4 % (37.0-80.0); Platelet Count 204 K/mm3 (142-424); Red Blood Count 2.87 M/mm3 (4.20-5.40); Red Cell Distribution Width 14.5 % (11.5-17.5); Reticulocyte % (Auto) 1.6 % (0.9-3.2); White Blood Count 10.7 K/mm3 (4.8-10.8)
[2024-08-25 07:03] LABS: Iron 33 ug/dL (37-170)
[2024-08-25 07:13] LABS: Total Iron Binding Capacity 211 ug/dL (265-497)
[2024-08-25 07:35] LABS: Thyroid Stimulating Hormone 4.03 uIU/mL (0.465-4.68)
[2024-08-25 07:39] LABS: Ferritin 71.4 ng/ml (11.1-264)
--- NOTE | 2024-08-25 07:57 | HMH.PHAINT1 ---
Pharmacy Intervention Comments: home medication list verified using list from [facility], PCP office and recent discharge from this facility.
[2024-08-25 08:00] VITALS: BP 162/73; PULSE 56; RESP 18; TEMP 36.6; O2SAT 98
[2024-08-25 08:43] LABS: Procalcitonin 0.163 ng/mL (0.0-2.0)
[2024-08-25 09:16] LABS: Vitamin B12 224 pg/mL (239-931)
[2024-08-25] MEDS: BUMETANIDE 1MG/4ML VIAL 2 MG IV ×2 (09:20→15:43)
[2024-08-25] MEDS: HEPARIN SODIUM 5,000 UNIT/ML VIAL 5000 UNIT SUBCUT ×3 (09:23→20:11)
[2024-08-25 09:43] LABS: Folate 3.89 ng/mL
--- NOTE | 2024-08-25 10:22 | HMH.PTEV ---
Physical Therapy Evaluation Rehab PT IP Evaluation Start: 08/24/24 21:43 Freq: ONCE Status: Active Protocol: Document 08/25/24 10:16 RADHA (Rec: 08/25/24 10:22 RADHA [id number]) Subjective/History History History Per H&P, This is a 73-year-old female who has a past medical history significant for stage IV chronic kidney disease, hyperlipidemia, bradycardia, syncope, neuropathy, osteopenia, CLL, and hypertension who presents after she fell twice today. Due to patient's symptoms, she presented to the emergency room for evaluation. While in emergency room, patient underwent multiple scans of the head, cervical spine, pelvis, thoracic spine, and lumbar spine-all imaging were without any acute findings. Urinalysis revealed a possible urinary tract infection. Patient did complain of some profound weakness and deconditioning, so she has been admitted for further management. During my evaluation of the patient, patient states that she fell twice today due to significant weakness. She states that it was difficult for her to get up out of her chair. She has been having longstanding weakness for the past 2 weeks. During my evaluation I noted the patient has significant edema to her bilateral lower extremities. She mentions that Dr. Cain started Lasix in the past and that was not helpful, so she recently was prescribed Bumex and she reports that she has been having some decrease in her swelling to her bilateral lower extremities. She mentions she has been retaining fluid for some time. She is currently denying any headache, upper or lower extremity unilateral weakness, lateral gaze deficit, heart failure, chest pain, shortness of breath, dyspnea, nausea, vomiting, fever, chills, rigors, or diarrhea. Additional pertinent vitals obtained include a white blood cell count of 14, red blood cell count of 3.16, hemoglobin of 9.1, hematocrit 28.7, BUN of 31, creatinine 1.90, GFR of 26, blood glucose of 257, total protein of 6, albumin 3. 4, and urinalysis revealed 3+ protein/2+ blood/red blood cells 20-50/5 blood cells 50- 100/2+ bacteria/2+ yeast. Subjective Subjective The pt is oriented x3. She reports that she lives in a house with her son. She reports that she has stairs in her home and stairs to enter her home. She reports that at baseline, she is able to dress herself and requires little assistance with ADLs. She reports that she uses a standard walker for all mobility. She reports that she had two falls yesterday and has been getting progressively weaker for the last 3 weeks. New diagnosis of cancer in past 12 No months? Rehab PT IP Eval Objective Appearance Patient Behavior Appropriate,Patient Baseline Patient Orientation Person,Place,Time Difficulty following instructions none Speech Pattern Patient Baseline Ambulation Patient Able to Ambulate Yes Ambulation Observation IP General Gait Pattern Observation Shuffling Step Ambulation Distance (feet) 30 Ambulation Assistive Device None Ambulation Ability Minimal x 2 (25% assist) Balance Ability to Arise Able, uses arms to help Sitting Balance Steady, safe Standing Balance Steady, wide stance Dynamic Sitting Balance Ability Good Dynamic Standing Balance Ability Fair Transfers Bed Transfer Ability Moderate x 2 (50% assist) Chair Transfer Ability Moderate x 2 (50% assist) Sit to Stand Bed Transfer Ability Moderate x 2 (50% assist) Sit to Stand Chair Transfer Ability Moderate x 2 (50% assist) Rehab PT IP prob,goals,plan Problems Date of Evaluation: 08/25/24 PT IP Problems Bed Mobility,Transfers,Gait, Balance,Self care,Safety Rehab Potential Rehab Potential Fair Equipment Needs Assistive Devices None / NA Plan PT Intervention Plan Bed Mobility,Transfers,Gait, Balance,Self care,Safety, Therapeutic Exercise PT Plan Frequency BID Duration LOS Discharge Goals Bed Transfer Ability Contact Guard/Hand Hold Sit to Stand Chair Transfer Ability Contact Guard/Hand Hold Ambulation Assistive Device Standard Walker Ambulation Distance (feet) 100 Discharge Plan PT Discharge Plan PT is recommending discharge to home with 24 hour assistance from family, at this time. If the family is unable to provide 24 hour assistance, then the patient would better benefit from placement upon discharge from the hospital for further therapy. Skilled PT is indicated for this patient during her acute stay to prevent further injuries and to promote a return to her PLOF. Eval Complexity Eval Charge Codes 95745 - Moderate Complexity PHYSICIAN CERTIFICATION: I certify the specified therapy services for Michelle Rivas are required, authorized, and reviewed every 30 days.
--- NOTE | 2024-08-25 10:35 | HMH.OTEV ---
OT Inpatient Evaluation Rehab OT IP Evaluation Start: 08/24/24 21:43 Freq: ONCE Status: Active Protocol: Document 08/25/24 10:22 MOO (Rec: 08/25/24 10:32 MOO [id number]) Rehab OT IP Assessment Subjective History This is a 73-year-old female who has a past medical history significant for stage IV chronic kidney disease, hyperlipidemia, bradycardia, syncope, neuropathy, osteopenia, CLL, and hypertension who presents after she fell twice today. Due to patient's symptoms, she presented to the emergency room for evaluation. While in emergency room, patient underwent multiple scans of the head, cervical spine, pelvis, thoracic spine, and lumbar spine-all imaging were without any acute findings. Urinalysis revealed a possible urinary tract infection. Patient did complain of some profound weakness and deconditioning, so she has been admitted for further management. During my evaluation of the patient, patient states that she fell twice today due to significant weakness. She states that it was difficult for her to get up out of her chair. She has been having longstanding weakness for the past 2 weeks. During my evaluation I noted the patient has significant edema to her bilateral lower extremities. She mentions that Dr. Cain started Lasix in the past and that was not helpful, so she recently was prescribed Bumex and she reports that she has been having some decrease in her swelling to her bilateral lower extremities. She mentions she has been retaining fluid for some time. She is currently denying any headache, upper or lower extremity unilateral weakness, lateral gaze deficit, heart failure, chest pain, shortness of breath, dyspnea, nausea, vomiting, fever, chills, rigors, or diarrhea. Additional pertinent vitals obtained include a white blood cell count of 14, red blood cell count of 3.16, hemoglobin of 9.1, hematocrit 28.7, BUN of 31, creatinine 1.90, GFR of 26, blood glucose of 257, total protein of 6, albumin 3. 4, and urinalysis revealed 3+ protein/2+ blood/red blood cells 20-50/5 blood cells 50- 100/2+ bacteria/2+ yeast. Patient lives in 1 story home with 2-3 ALICE with son. Independent with ADLs and fx'l mobility. Hx of falling. Uses a RW to ambulate and transfers. Subjective I just feel weak. Instructed Patient on safety awareness to complete bed mobility from supine->sit @ EOB->stand with needing Min A x2. Patient maneuver within room ~20ft with Min A x2. No LOB noted. Max A For yoan socks. Left Patient sitting upright in chair with needs met at end of session. Objective Patient Orientation Person,Place,Name,Age,Birthday Right Upper Extremity Gross ROM WFL Left Upper Extremity Gross ROM WFL Bed Mobility bed mobility - supine/sit Assist Level Minimal x 1 (25% assist) Transfer Training Sit/Stand Transfer Assist Level Minimal x 2 (25% assist) Chair Transfer Ability Minimal x 2 (25% assist) Chair Transfer Technique Sit to/from Ambulatory Rehab OT IP prob,goals,plan Problems Date of Evaluation: 08/25/24 OT IP Problems Bed Mobility,Transfers,Balance ,Self care,Safety Rehab Potential Rehab Potential Good Equipment Needs Assistive Devices Rolling / Wheeled Walker Plan OT intervention Plan Bed Mobility,Transfers,Balance ,Self care,Safety,Therapeutic Exercise OT Plan Frequency Daily Duration LOS Discharge Goals Bed Mobility Ability Assistance x1 Sit to Stand Chair Transfer Ability Minimal x 1 (25% assist) Chair Transfer Ability Minimal x 1 (25% assist) Chair Transfer Technique Sit to/from Ambulatory Chair Transfer Assistive Devices Rolling Walker Discharge Plan OT Discharge Plan Recommend patient return home with son with services. If son is unable to provide 24/7 care at this time, recommend placement for rehab placement. Patient to continue skilled OT IP services here at [facility]. Eval Complexity Eval Charge Codes 86836 - Low Complexity PHYSICIAN CERTIFICATION: I certify the specified therapy services for Michelle Rivas are required, authorized, and reviewed every 30 days.
--- NOTE | 2024-08-25 11:19 | SW/DCPLANNER ---
Addendum entered by Ximena Osmond 08/26/24 11:51: Patient has been approved SNF level of care. I have updated MD regarding plan. Addendum entered by Ximena Osmond 08/26/24 07:37: Per Michelle mon/ Aldo Cameron auth has been started for SNF level of care. Addendum entered by Ximena Osmond 08/25/24 13:51: Patient is now interested in SNF level of care at [place]. Patient information has been faxed to Michelle mon/ Aldo Cameron. If accepted patient will require a precert prior to admission. I will continue to follow up w/ patrick, and Aldo Cameron. Original Note: I spoke w/ patrick this AM regarding plans once medically stable for discharge. PT/OT evaluated patient and they recommended placement OR home w/ 20/01 care and home health services. Patient stated that she is not interested in placement at this time. Patient prefers to return home w/ son and daughter in law present 20/01 and resume home health services w/ [facility]. I will fax updated information to [facility] and inform agency patient will return home today.
[2024-08-25 11:49] LABS: POC Glucose,Bedside 215 (70-110)
--- NOTE | 2024-08-25 11:58 | EXP.DC.SUM ---
General Admission date:: 08/24/24 HPI HPI HPI: This is a 73-year-old female who has a past medical history significant for stage IV chronic kidney disease, hyperlipidemia, bradycardia, syncope, neuropathy, osteopenia, CLL, and hypertension who presents after she fell twice today. Due to patient's symptoms, she presented to the emergency room for evaluation. While in emergency room, patient underwent multiple scans of the head, cervical spine, pelvis, thoracic spine, and lumbar spine-all imaging were without any acute findings. Urinalysis revealed a possible urinary tract infection. Patient did complain of some profound weakness and deconditioning, so she has been admitted for further management. During my evaluation of the patient, patient states that she fell twice today due to significant weakness. She states that it was difficult for her to get up out of her chair. She has been having longstanding weakness for the past 2 weeks. During my evaluation I noted the patient has significant edema to her bilateral lower extremities. She mentions that Dr. Cain started Lasix in the past and that was not helpful, so she recently was prescribed Bumex and she reports that she has been having some decrease in her swelling to her bilateral lower extremities. She mentions she has been retaining fluid for some time. She is currently denying any headache, upper or lower extremity unilateral weakness, lateral gaze deficit, heart failure, chest pain, shortness of breath, dyspnea, nausea, vomiting, fever, chills, rigors, or diarrhea. Additional pertinent vitals obtained include a white blood cell count of 14, red blood cell count of 3.16, hemoglobin of 9.1, hematocrit 28.7, BUN of 31, creatinine 1.90, GFR of 26, blood glucose of 257, total protein of 6, albumin 3.4, and urinalysis revealed 3+ protein/2+ blood/red blood cells 20-50/5 blood cells 50-100/2+ bacteria/2+ yeast. Hospital Course Hospital Course Hospital Course: Positive for old coronavirus, UTI. PT/PT recommended SNF versus home health with 24-hour care at home. Patient preferred home health. Lives with son at home. HFpEF, BNP 5000. Increase Bumex to 2 mg daily. On room air. Will follow-up with cardiology within 1 week. ? Discontinued Farxiga due to recurrent UTIs requiring hospitalization. Low folic acid vitamin B12. Supplementation. Will need tight glucose control with PCP. A1c 12 Exam Data for Last 24 hours Vital signs and Labs for Last 24 Hours: Temp Pulse Resp BP Pulse Ox O2 Del Method 98 F 56 L 18 162/73 H 98 Room Air 08/25/24 08:00 08/25/24 08:00 08/25/24 08:00 08/25/24 08:00 08/25/24 08:00 08/25/24 09:00 Laboratory Results - last 24 hr 08/24/24 20:20: WBC 14.0 H, RBC 3.16 L, Hgb 9.1 L, Hct 28.7 L, MCV 90.8, MCH 28.8, MCHC 31.7 L, RDW 14.4, Plt Count 220, MPV 10.3, Neut % (Auto) 48.8, Lymph % (Auto) 42.3, [place] % (Auto) 5.1, Eos % (Auto) 2.9, Baso % (Auto) 0.4, Neut # (Auto) 6.8, Lymph # (Auto) 5.9 H, [place] # (Auto) 0.7, Eos # (Auto) 0.4, Baso # (Auto) 0.1, Sodium 137, Potassium 3.9, Chloride 105, Carbon Dioxide 26, Anion Gap 9.9, BUN 31 H, Creatinine 1.90 H, Estimated Creat Clear 36, Estimated GFR 26 L, Est GFR ( Amer) 31 L, Glucose 257 H, Calcium 8.5, Total Bilirubin 0.2, AST 19, ALT 17, Alkaline Phosphatase 99, Total Protein 6.0 L, Albumin 3.4 L, Globulin 2.6, Albumin/Globulin Ratio 1.3, Procalcitonin 0.137 08/24/24 20:41: Urine Color Yellow, Urine Appearance Clear, Urine pH 6.0, Ur Specific Occidental 1.020, Urine Protein 3+ A, Urine Glucose (UA) 2+, Urine Ketones Negative, Urine Blood 2+ A, Urine Nitrate Negative, Urine Bilirubin Negative, Urine Urobilinogen 0.2, Ur Leukocyte Esterase Negative, Urine RBC 20-50, Urine WBC 50-100, Ur Squamous Epith Cells 10-20, Urine Bacteria 2+, Urine Yeast 2+ 08/24/24 21:07: Chlamy pneumoniae PCR Not detected, Adenovirus (PCR) Not detected, B. pertussis DNA (PCR) Not detected, Coronavirus OC43 (PCR) Detected A, Coronavirus HKU1 (PCR) Not detected, Coronavirus 229E (PCR) Not detected, SARS-CoV-2 (PCR) Not detected, Coronavirus NL63 (PCR) Not detected, Human Metapneumovir PCR Not detected, Influenza A (H1) PCR Not detected, Influ A (H1N1/09) PCR Not detected, Influenza A (H3) PCR Not detected, Influenza Type A (PCR) Not detected, Influenza Type B (PCR) Not detected, M. pneumoniae (PCR) Not detected, Parainfluenza 1 (PCR) Not detected, Parainfluenza 2 (PCR) Not detected, Parainfluenza 3 (PCR) Not detected, Parainfluenza 4 (PCR) Not detected, RSV (PCR) Not detected, Entero/Rhino (PCR) Not detected 08/25/24 05:29: POC Glucose 241 H 08/25/24 06:12: WBC 10.7, RBC 2.87 L, Hgb 8.2 L, Hct 26.2 L, MCV 91.3, MCH 28.6, MCHC 31.3 L, RDW 14.5, Plt Count 204, MPV 10.1, Neut % (Auto) 42.4, Lymph % (Auto) 46.8, [place] % (Auto) 6.5, Eos % (Auto) 3.8, Baso % (Auto) 0.3, Neut # (Auto) 4.5, Lymph # (Auto) 5.0 H, [place] # (Auto) 0.7, Eos # (Auto) 0.4, Baso # (Auto) 0.0, Retic Count (auto) 1.6, Sodium 139, Potassium 3.8, Chloride 106, Carbon Dioxide 28, Anion Gap 8.8, BUN 34 H, Creatinine 2.10 H, Estimated Creat Clear 33, Estimated GFR 23 L, Est GFR ( Amer) 28 L, Glucose 218 H, Calcium 8.0 L, Iron 33 L, TIBC 211 L, Iron Saturation 15.16917, Ferritin 71.4, Vitamin B12 224 L, Folate 3.89, Procalcitonin 0.163, TSH 4.03 08/25/24 11:37: POC Glucose 215 H I & O for Last 24 hours: Intake & Output 08/22/24 08/23/24 08/24/24 08/25/24 23:59 23:59 23:59 23:59 Intake Total 520 / 520 Output Total 500 / 500 Balance Weight 90.265 kg 90.673 kg Results Data Completed and Pending Labs on day of discharge: Labs from last 24 hours 08/25/24 08/25/24 08/25/24 11:37 06:12 05:29 WBC 10.7 RBC 2.87 L Hgb 8.2 L Hct 26.2 L MCV 91.3 MCH 28.6 MCHC 31.3 L RDW 14.5 Plt Count 204 MPV 10.1 Neut % (Auto) 42.4 Lymph % (Auto) 46.8 [place] % (Auto) 6.5 Eos % (Auto) 3.8 Baso % (Auto) 0.3 Neut # (Auto) 4.5 Lymph # (Auto) 5.0 H [place] # (Auto) 0.7 Eos # (Auto) 0.4 Baso # (Auto) 0.0 Retic Count (auto) 1.6 Sodium 139 Potassium 3.8 Chloride 106 Carbon Dioxide 28 Anion Gap 8.8 BUN 34 H Creatinine 2.10 H Estimated Creat Clear 33 Estimated GFR 23 L Est GFR ( Amer) 28 L Glucose 218 H POC Glucose 215 H 241 H Calcium 8.0 L Iron 33 L TIBC 211 L Iron Saturation 15.84541 Ferritin 71.4 Total Bilirubin AST ALT Alkaline Phosphatase Total Protein Albumin Globulin Albumin/Globulin Ratio Vitamin B12 224 L Folate 3.89 Procalcitonin 0.163 TSH 4.03 Urine Color Urine Appearance Urine pH Ur Specific Occidental Urine Protein Urine Glucose (UA) Urine Ketones Urine Blood Urine Nitrate Urine Bilirubin Urine Urobilinogen Ur Leukocyte Esterase Urine RBC Urine WBC Ur Squamous Epith Cells Urine Bacteria Urine Yeast Chlamy pneumoniae PCR Adenovirus (PCR) B. pertussis DNA (PCR) Coronavirus OC43 (PCR) Coronavirus HKU1 (PCR) Coronavirus 229E (PCR) SARS-CoV-2 (PCR) Coronavirus NL63 (PCR) Human Metapneumovir PCR Influenza A (H1) PCR Influ A (H1N1/09) PCR Influenza A (H3) PCR Influenza Type A (PCR) Influenza Type B (PCR) M. pneumoniae (PCR) Parainfluenza 1 (PCR) Parainfluenza 2 (PCR) Parainfluenza 3 (PCR) Parainfluenza 4 (PCR) RSV (PCR) Entero/Rhino (PCR) 08/24/24 08/24/24 08/24/24 21:07 20:41 20:20 WBC 14.0 H RBC 3.16 L Hgb 9.1 L Hct 28.7 L MCV 90.8 MCH 28.8 MCHC 31.7 L RDW 14.4 Plt Count 220 MPV 10.3 Neut % (Auto) 48.8 Lymph % (Auto) 42.3 [place] % (Auto) 5.1 Eos % (Auto) 2.9 Baso % (Auto) 0.4 Neut # (Auto) 6.8 Lymph # (Auto) 5.9 H [place] # (Auto) 0.7 Eos # (Auto) 0.4 Baso # (Auto) 0.1 Retic Count (auto) Sodium 137 Potassium 3.9 Chloride 105 Carbon Dioxide 26 Anion Gap 9.9 BUN 31 H Creatinine 1.90 H Estimated Creat Clear 36 Estimated GFR 26 L Est GFR ( Amer) 31 L Glucose 257 H POC Glucose Calcium 8.5 Iron TIBC Iron Saturation Ferritin Total Bilirubin 0.2 AST 19 ALT 17 Alkaline Phosphatase 99 Total Protein 6.0 L Albumin 3.4 L Globulin 2.6 Albumin/Globulin Ratio 1.3 Vitamin B12 Folate Procalcitonin 0.137 TSH Urine Color Yellow Urine Appearance Clear Urine pH 6.0 Ur Specific Occidental 1.020 Urine Protein 3+ A Urine Glucose (UA) 2+ Urine Ketones Negative Urine Blood 2+ A Urine Nitrate Negative Urine Bilirubin Negative Urine Urobilinogen 0.2 Ur Leukocyte Esterase Negative Urine RBC 20-50 Urine WBC 50-100 Ur Squamous Epith Cells 10-20 Urine Bacteria 2+ Urine Yeast 2+ Chlamy pneumoniae PCR Not detected Adenovirus (PCR) Not detected B. pertussis DNA (PCR) Not detected Coronavirus OC43 (PCR) Detected A Coronavirus HKU1 (PCR) Not detected Coronavirus 229E (PCR) Not detected SARS-CoV-2 (PCR) Not detected Coronavirus NL63 (PCR) Not detected Human Metapneumovir PCR Not detected Influenza A (H1) PCR Not detected Influ A (H1N1/09) PCR Not detected Influenza A (H3) PCR Not detected Influenza Type A (PCR) Not detected Influenza Type B (PCR) Not detected M. pneumoniae (PCR) Not detected Parainfluenza 1 (PCR) Not detected Parainfluenza 2 (PCR) Not detected Parainfluenza 3 (PCR) Not detected Parainfluenza 4 (PCR) Not detected RSV (PCR) Not detected Entero/Rhino (PCR) Not detected DS: Diagnosis Discharge Diagnosis (1) Multiple falls: Status: Acute Code(s): R29.6 - Repeated falls (2) Hypervolemia: Status: Acute Code(s): E87.70 - Fluid overload, unspecified Qualifiers: Hypervolemia type: unspecified Qualified Code(s): E87.70 - Fluid overload, unspecified (3) UTI (urinary tract infection): Status: Acute Code(s): N39.0 - Urinary tract infection, site not specified Qualifiers: Hematuria presence: without hematuria Urinary tract infection type: site unspecified Qualified Code(s): N39.0 - Urinary tract infection, site not specified (4) Leukocytosis: Status: Acute Code(s): D72.829 - Elevated white blood cell count, unspecified Qualifiers: Leukocytosis type: unspecified Qualified Code(s): D72.829 - Elevated white blood cell count, unspecified (5) CKD (chronic kidney disease): Status: Chronic Code(s): N18.9 - Chronic kidney disease, unspecified Qualifiers: Chronic kidney disease stage: stage 4 (GFR 15-29) Qualified Code(s): N18.4 - Chronic kidney disease, stage 4 (severe) (6) CLL (chronic lymphocytic leukemia): Status: Chronic Code(s): C91.10 - Chronic lymphocytic leukemia of B-cell type not having achieved remission (7) Weakness: Status: Acute Code(s): R53.1 - Weakness (8) Anemia: Status: Acute Code(s): D64.9 - Anemia, unspecified Qualifiers: Anemia type: unspecified type Qualified Code(s): D64.9 - Anemia, unspecified (9) Hyperglycemia due to type 2 diabetes mellitus: Status: Acute Code(s): E11.65 - Type 2 diabetes mellitus with hyperglycemia Qualifiers: Diabetes mellitus supervisor intermediates insulin use: with supervisor intermediates use Qualified Code(s): E11.65 - Type 2 diabetes mellitus with hyperglycemia; 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 - 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 Meds Home Medications and Allergies Home Medications ?Medication ?Instructions ?Recorded ?Confirmed ?Type insulin lispro 100 unit/mL 0 - 14 unit (0 - 0.14 mL) SQ 12/14/22 08/25/24 Rx subcutaneous pen (Humalog KwikPen TIDWMEAL Diabetes #10 mL (U-100) Insulin) levothyroxine 88 mcg tablet 88 mcg PO DAILY 07/26/24 08/24/24 History hydralazine 25 mg tablet 25 mg PO TID 30 days #90 tabs 07/27/24 08/24/24 Rx insulin glargine 100 unit/mL (3 18 unit (0.18 mL) SQ BID Diabetes 07/27/24 08/25/24 Rx mL) subcutaneous pen (Lantus #10 mL Solostar U-100 Insulin) gabapentin 400 mg capsule 400 mg PO TID #90 caps 08/09/24 08/24/24 Rx clonazepam 0.5 mg tablet 0.5 mg PO BID PRN anxiety #60 tabs 08/19/24 08/24/24 Rx guaifenesin 1,200 mg tablet, 1,200 mg PO BID PRN congestion #10 08/24/24 08/24/24 Rx extended release 12 hr (Mucinex) tabs bumetanide 1 mg tablet 2 mg (2 x 1 mg) PO DAILY 30 days 08/25/24 08/25/24 Rx #0 tabs cefdinir 300 mg capsule 300 mg PO BID 5 days #10 caps 08/25/24 Rx hydrocodone 5 mg-acetaminophen 325 1 tab PO Q8H PRN Moderate Pain 08/25/24 08/24/24 History mg tablet (Scale Score 5-6) New Prescriptions to Start Prescriptions: Celso Celeste Allergies Allergy/AdvReac Type Severity Reaction Status Date / Time moxifloxacin Allergy Severe S-ANAPHYLAX Verified 08/24/24 12:09 IS Sulfa (Sulfonamide Allergy Mild NA-NAUSEA/V Verified 08/24/24 12:09 Antibiotics) OMITING Discharge Plan Disposition Patient Disposition: Home Health Service Condition: Fair Discharge Order Discharge Orders: Discharge Order (Routine); Ordered 08/25/24 Ordered By: Celso Dominguez Follow up Plan Follow up with: Lila Parekh APRN [Primary Care Provider] - Enter time for follow up Talon Wiggins MD [Staff Physician] - 08/30/24 Prescriptions/Medication Reconciliation: New cefdinir 300 mg capsule 300 mg PO BID 5 Days Qty: 10 0RF Continued guaifenesin [Mucinex] 1,200 mg tablet extended release 12hr 1,200 mg PO BID PRN (Reason: congestion) Qty: 10 0RF gabapentin 400 mg capsule 400 mg PO TID Qty: 90 0RF clonazepam 0.5 mg tablet 0.5 mg PO BID PRN (Reason: anxiety) Qty: 60 0RF insulin lispro [Humalog KwikPen Insulin] 100 unit/mL insulin pen 0 - 14 unit SQ TIDWMEAL Qty: 10 10RF Rx Instructions: Per home sliding scale If blood sugar 151-200 take 4 units short acting insulin If blood sugar 200-250 take 8 units short acting insulin If blood sugar 251-300 take 12 units short acting insulin If blood sugar 301-350 take 14 units short acting insulin If blood sugar greater than 350 take 14 units insulin and call physician for further instructions. levothyroxine 88 mcg tablet 88 mcg PO DAILY hydralazine 25 mg Tablet 25 mg PO TID 30 Days Qty: 90 0RF insulin glargine [Lantus Solostar U-100 Insulin] 100 unit/mL (3 mL) insulin pen 18 unit SQ BID Qty: 10 10RF hydrocodone-acetaminophen 5-325 mg tablet 1 tab PO Q8H PRN (Reason: Moderate Pain (Scale Score 5-6)) Changed bumetanide 1 mg tablet 2 mg PO DAILY 30 Days Qty: 0 0RF Discontinued dapagliflozin propanediol [Farxiga] 10 mg tablet 10 mg PO DAILY Problem Reconciliation Problems Reviewed?: Yes Patient Discharge Instructions Patient Instructions: Urinary Tract Infection, Carbohydrate-Counting Diet, How to Prevent Falls, DI for Sepsis -- Adult, DI for Leukocytosis, Using Nutrition Labels: Carbohydrate Diet, Heart-Healthy Consistent Carbohydrate Diet Print Language: Marshallese Providers Primary Care Provider: Lila Parekh Admit Provider: Stef Paulino Attending Provider: Stef Paulino
--- NOTE | 2024-08-25 12:01 | XR_ITS ---
FINAL REPORT CLINICAL HISTORY: fall on knees COMPARISON: 07/25/2024 FINDINGS: RIGHT KNEE Two views demonstrate no acute fracture or dislocation. Visualized joint spaces are normally aligned. There are moderate degenerative changes of the patellofemoral joint and lateral compartment. The soft tissues are unremarkable. IMPRESSION: Degenerative changes without acute bony abnormality. Reviewed, Interpreted and Dictated by Indigo Sparks MD Transcribed by Abiola Worley Authenticated and . [facility]
--- NOTE | 2024-08-25 12:01 | XR_ITS ---
FINAL REPORT CLINICAL HISTORY: fall on knees COMPARISON: 05/14/2023 FINDINGS: LEFT KNEE Two views demonstrate no acute fracture or dislocation. Visualized joint spaces are normally aligned. There are mild diffuse degenerative changes. Unusual calcification projects posterior to the tibial spine, best seen on lateral view which may be related to old trauma. No joint effusion. The soft tissues are unremarkable. IMPRESSION: Chronic appearing changes without acute bony abnormality. Reviewed, Interpreted and Dictated by Indigo Sparks MD Transcribed by Abiola Worley Authenticated and . [facility]
--- NOTE | 2024-08-25 12:04 | DIET.NUTRFU ---
Spoke to patient today in regards to diabetic diet, her A1c is 12%. She takes insulin at home but only checks her BS 2x week, encouraged her to check more often. Also reviewed portion control and carb counting, she does most of the cooking at home. She tries to eat routine meals everyday with protein. Encouraged her to eat more fiber and add cinnamon in when possible to help regulate her BS reading. Will include handouts with discharge information and provide contact information for follow up as outpatient.
[2024-08-25 12:48] LABS: NT Pro Brain Natriuretic Pep. 5240 pg/mL (0-450)
--- NOTE | 2024-08-25 15:28 | EXP.PN ---
Subjective *Date: 08/25/24 *Time: 15:28 Exam Data for Last 24 hours Vital signs and Labs for Last 24 Hours: Temp Pulse Resp BP Pulse Ox O2 Del Method 98 F 56 L 18 162/73 H 98 Room Air 08/25/24 08:00 08/25/24 08:00 08/25/24 08:00 08/25/24 08:00 08/25/24 08:00 08/25/24 13:00 Laboratory Results - last 24 hr 08/24/24 20:20: WBC 14.0 H, RBC 3.16 L, Hgb 9.1 L, Hct 28.7 L, MCV 90.8, MCH 28.8, MCHC 31.7 L, RDW 14.4, Plt Count 220, MPV 10.3, Neut % (Auto) 48.8, Lymph % (Auto) 42.3, [place] % (Auto) 5.1, Eos % (Auto) 2.9, Baso % (Auto) 0.4, Neut # (Auto) 6.8, Lymph # (Auto) 5.9 H, [place] # (Auto) 0.7, Eos # (Auto) 0.4, Baso # (Auto) 0.1, Sodium 137, Potassium 3.9, Chloride 105, Carbon Dioxide 26, Anion Gap 9.9, BUN 31 H, Creatinine 1.90 H, Estimated Creat Clear 36, Estimated GFR 26 L, Est GFR ( Amer) 31 L, Glucose 257 H, Calcium 8.5, Total Bilirubin 0.2, AST 19, ALT 17, Alkaline Phosphatase 99, Total Protein 6.0 L, Albumin 3.4 L, Globulin 2.6, Albumin/Globulin Ratio 1.3, Procalcitonin 0.137 08/24/24 20:41: Urine Color Yellow, Urine Appearance Clear, Urine pH 6.0, Ur Specific [place] 1.020, Urine Protein 3+ A, Urine Glucose (UA) 2+, Urine Ketones Negative, Urine Blood 2+ A, Urine Nitrate Negative, Urine Bilirubin Negative, Urine Urobilinogen 0.2, Ur Leukocyte Esterase Negative, Urine RBC 20-50, Urine WBC 50-100, Ur Squamous Epith Cells 10-20, Urine Bacteria 2+, Urine Yeast 2+ 08/24/24 21:07: Chlamy pneumoniae PCR Not detected, Adenovirus (PCR) Not detected, B. pertussis DNA (PCR) Not detected, Coronavirus OC43 (PCR) Detected A, Coronavirus HKU1 (PCR) Not detected, Coronavirus 229E (PCR) Not detected, SARS-CoV-2 (PCR) Not detected, Coronavirus NL63 (PCR) Not detected, Human Metapneumovir PCR Not detected, Influenza A (H1) PCR Not detected, Influ A (H1N1/09) PCR Not detected, Influenza A (H3) PCR Not detected, Influenza Type A (PCR) Not detected, Influenza Type B (PCR) Not detected, M. pneumoniae (PCR) Not detected, Parainfluenza 1 (PCR) Not detected, Parainfluenza 2 (PCR) Not detected, Parainfluenza 3 (PCR) Not detected, Parainfluenza 4 (PCR) Not detected, RSV (PCR) Not detected, Entero/Rhino (PCR) Not detected 08/25/24 05:29: POC Glucose 241 H 08/25/24 06:12: WBC 10.7, RBC 2.87 L, Hgb 8.2 L, Hct 26.2 L, MCV 91.3, MCH 28.6, MCHC 31.3 L, RDW 14.5, Plt Count 204, MPV 10.1, Neut % (Auto) 42.4, Lymph % (Auto) 46.8, [place] % (Auto) 6.5, Eos % (Auto) 3.8, Baso % (Auto) 0.3, Neut # (Auto) 4.5, Lymph # (Auto) 5.0 H, [place] # (Auto) 0.7, Eos # (Auto) 0.4, Baso # (Auto) 0.0, Retic Count (auto) 1.6, Sodium 139, Potassium 3.8, Chloride 106, Carbon Dioxide 28, Anion Gap 8.8, BUN 34 H, Creatinine 2.10 H, Estimated Creat Clear 33, Estimated GFR 23 L, Est GFR ( Amer) 28 L, Glucose 218 H, Calcium 8.0 L, Iron 33 L, TIBC 211 L, Iron Saturation 15.22593, Ferritin 71.4, NT-Pro-B Natriuret Pep 5240 H, Vitamin B12 224 L, Folate 3.89, Procalcitonin 0.163, TSH 4.03 08/25/24 11:37: POC Glucose 215 H I & O for Last 24 hours: Intake & Output 08/22/24 08/23/24 08/24/24 08/25/24 23:59 23:59 23:59 23:59 Intake Total 1000 / 1000 Output Total 1100 / 1100 Balance -100 / -100 Weight 90.265 kg 90.673 kg Constitutional Constitutional: no acute distress *Routine HEENT Exam Head: Present normocephalic Eye: Present EOMI and PERRL ENT: Present mucous membranes moist *Routine Neck Exam Neck: Present supple; Absent lymphadenopathy *Routine Respiratory Exam Respiratory: Present CTA bilaterally *Routine Cardiovascular Exam Cardiovascular: Present RRR *Routine Abdominal Exam Abdominal: Present soft and normoactive bowel sounds; Absent tenderness *Routine Extremities Exam Extremities: Present edema; Absent cyanosis or clubbing *Routine Skin Exam Skin: Present warm; Absent rash *Routine Neurological Exam Neurological: Present alert Assessment and Plan *Assessment and plan (1) UTI (urinary tract infection): Status: Acute Qualifiers: Urinary tract infection type: site unspecified Hematuria presence: without hematuria Qualified Code(s): N39.0 - Urinary tract infection, site not specified Category: Medical Code(s): N39.0 - Urinary tract infection, site not specified (2) Weakness: Status: Acute Category: Medical Code(s): R53.1 - Weakness Plan Michelle Davis is a 73-year-old female who presented with generalized weakness and following twice at home and was admitted for the same along with coronavirus, UTI, HFpEF exacerbation. #Falls at home #UTI ? Falls likely multifactorial, with acute viral syndrome from coronavirus, UTI, and lower extremity edema. ? PT/OT consulted, recommended SNF versus home with home health and 24-hour care. Patient initially wanted to go home, but was amenable to SNF later in the afternoon. ? Case management assisting with placement. ? UA grossly abnormal, follow-up urine culture. ? Continue ceftriaxone day 2/5. ? WBC improved from 14-10.7. Continue to monitor. ? Discontinue Farxiga given recurrent UTIs. #HFpEF exacerbation ? Initial BNP 5240, with significant lower extremity edema 4+. On room air. ? ECHO during admission shows normal biventricular function, mild biatrial dilation. ? Recently switched from Lasix to Bumex by PCP with mild improvement in edema. ? Continue Bumex 2 mg twice daily. Follow-up urine output, renal function, electrolytes. ? Started spironolactone 25 mg. #Type 2 diabetes ? Hemoglobin A1c 12.1 in December 2024. ? Follow-up repeat A1c. ? Restarted home Lantus 18 units twice daily. #Hypertension ? Hold home hydralazine. Start spironolactone 25 mg. #Hypothyroidism ? Resume home levothyroxine 88 mcg. TFT stable during admission. Full code DVT prophylaxis: Heparin 5000
[2024-08-25] MEDS: SPIRONOLACTONE 25MG TABLET 50 MG PO (15:47)
[2024-08-25 15:56] LABS: POC Glucose,Bedside 217 (70-110)
[2024-08-25 16:00] VITALS: BP 170/62; PULSE 66; RESP 18; TEMP 37; O2SAT 96
[2024-08-25 19:22] VITALS: BP 186/74; PULSE 65; RESP 17; TEMP 37.1; O2SAT 95
[2024-08-25] MEDS: HYDRALAZINE HCL 25MG TABLET 25 MG PO (20:10)
[2024-08-25] MEDS: GABAPENTIN 100MG CAPSULE 200 MG PO (20:10)
[2024-08-25] MEDS: INSULIN GLARGINE 100 UNITS/ML 3ML FLEXPEN 18 UNIT SUBCUT (20:11)
[2024-08-25] MEDS: CEFTRIAXONE SODIUM 1 GM in 0.9 % SODIUM CHLORIDE 50 ML IV (20:12)
[2024-08-25 20:56] LABS: POC Glucose,Bedside 242 (70-110)
[2024-08-25] MEDS: BENZONATATE 100MG CAPSULE 200 MG PO (21:59)
[2024-08-26] VITALS: BP 105/71; PULSE 60; RESP 16; TEMP 36.9; O2SAT 94
[2024-08-26 04:00] VITALS: BMI 30.2
[2024-08-26 04:04] VITALS: BP 110/72; PULSE 67; RESP 15; TEMP 36.7; O2SAT 95
--- NOTE | 2024-08-26 04:29 | PC.NURSE ---
Pt has rested well this shift. Pt did c/o cough and was treated per AUG. Pt lung sounds remain diminished, and pt denies pain. No other acute changes to note at this time.
[2024-08-26] MEDS: humaLOG 100 UNITS/ML 10ML VIAL (SSI) SUBCUT ×2 (05:58→10:24)
[2024-08-26] MEDS: LEVOTHYROXINE 88MCG (0.088MG) TAB 88 MCG PO (06:02)
[2024-08-26 07:15] LABS: Basophils % 0.2 % (0.1-2.0); Eosinophils # 0.5 K/mm3 (0.0-0.4); Eosinophils % 4.6 % (0.1-12.0); Hematocrit 25.5 % (37.0-47.0); Hemoglobin 8.2 g/dL (12.2-16.2); Lymphocytes # 5.5 K/mm3 (0.7-4.5); Lymphocytes % 55.6 % (10-50); Mean Corpuscular HGB Conc 32.2 g/dL (31.8-35.4); Mean Corpuscular Hemoglobin 28.9 pg (27.0-31.2); Mean Corpuscular Volume 89.8 fl (81-99); Mean Platelet Volume 9.9 fl (7.4-10.4); Monocytes # 0.6 K/mm3 (0.1-1.0); Monocytes % 6.5 % (1.7-9.3); Neutrophils # 3.2 K/mm3 (1.8-7.8); Neutrophils % 32.7 % (37.0-80.0); Platelet Count 192 K/mm3 (142-424); Red Blood Count 2.84 M/mm3 (4.20-5.40); Red Cell Distribution Width 14.4 % (11.5-17.5); White Blood Count 9.9 K/mm3 (4.8-10.8)
[2024-08-26 07:23] LABS: MANUAL DIFFERENTIAL MANUAL DIFFERENTIAL (MANUAL DIFF)
[2024-08-26 07:48] VITALS: BP 186/75; PULSE 60; RESP 16; TEMP 36.7; O2SAT 96
[2024-08-26 07:49] LABS: Anion Gap 4.6 mEq/L (5-15); Blood Urea Nitrogen 36 mg/dl (7-17); Calcium 8.3 mg/dl (8.4-10.2); Carbon Dioxide 30 mmol/L (22.0-30.0); Chloride 105 mmol/L (98-107); Creatinine Clearance Estimated 33 mL/min (50-200); Estimated Glomerular Filt Rate 23 ml/min (>60); GFR (African American) 28 ML/MIN (>60); Glucose 140 mg/dl (74-100); Potassium 3.6 mmoL/L (3.5-5.1); Sodium 136 mmol/L (136-145)
[2024-08-26] MEDS: BUMETANIDE 1MG/4ML VIAL 2 MG IV (09:38)
[2024-08-26] MEDS: HEPARIN SODIUM 5,000 UNIT/ML VIAL 5000 UNIT SUBCUT (09:38)
[2024-08-26] MEDS: HYDRALAZINE HCL 25MG TABLET 25 MG PO ×2 (09:39→13:16)
[2024-08-26] MEDS: GABAPENTIN 100MG CAPSULE 200 MG PO ×2 (09:39→13:15)
[2024-08-26] MEDS: SPIRONOLACTONE 25MG TABLET 50 MG PO (09:39)
[2024-08-26] MEDS: INSULIN GLARGINE 100 UNITS/ML 3ML FLEXPEN 18 UNIT SUBCUT (09:40)
[2024-08-26 10:11] LABS: Eosinophils % 6 % (0-3); Lymphocytes % 57 % (10-50); Neutrophils % 32 % (42-76); Platelet Estimate Normal; RBC Morphology Normal; Total Cells Counted 100
[2024-08-26 10:19] LABS: POC Glucose,Bedside 193 (70-110)
--- NOTE | 2024-08-26 11:52 | P.DS_ITS ---
General Admission date:: 08/24/24 Hospital Course Hospital Course Hospital Course: Michelle Davis is a 73-year-old female who presented with generalized weakness and following twice at home and was admitted for the same along with hue navirus, UTI, HFpEF exacerbation. #Falls at home #UTI ? Falls likely multifactorial, with acute viral syndrome from coronavirus, UTI, and lower extremity edema. ? PT/OT consulted, recommended SNF. [facility] grac[facility] accepted patient. ? Case management assisting with placement. ? UA grossly abnormal, urine culture showed multiple organisms but did present with leukocytosis. Will continue with antibiotics ? Treated with ceftriaxone in the hospital, will discharge with cefdinir for 4 more days. ? Discontinue Farxiga given recurrent UTIs. #HFpEF exacerbation #Lower extremity venous sufficiency ? Initial BNP 5240, with significant lower extremity edema 3+. On room air. ? ECHO during admission shows normal biventricular function, mild biatrial dilation. ? Recently switched from Lasix to Bumex by PCP with mild improvement in edema. ? Increased Bumex to 2 mg twice daily. Started spironolactone 25 mg. ? Would recommend compression stockings, leg elevation for lower extremity edema. ? Will follow-up with cardiology within 1 week. #Type 2 diabetes ? Hemoglobin A1c 12.1 in June 2024. ? Restarted home Lantus 18 units twice daily. Discontinued Farxiga given recurrent UTIs. ? Will need further optimization by PCP. #Hypertension ? Continue with hydralazine, spironolactone. #Hypothyroidism ? Resume home levothyroxine 88 mcg. TFT stable during admission. Exam Data for Last 24 hours Vital signs and Labs for Last 24 Hours: Temp Pulse Resp BP Pulse Ox O2 Del Method 98.1 F 60 16 186/75 H 96 Room Air 08/26/24 07:48 08/26/24 07:48 08/26/24 07:48 08/26/24 07:48 08/26/24 07:48 08/26/24 10:14 Laboratory Results - last 24 hr 08/25/24 06:12: NT-Pro-B Natriuret Pep 5240 H 08/25/24 15:37: POC Glucose 217 H 08/25/24 20:06: POC Glucose 242 H 08/26/24 06:59: WBC 9.9, RBC 2.84 L, Hgb 8.2 L, Hct 25.5 L, MCV 89.8, MCH 28.9, MCHC 32.2, RDW 14.4, Plt Count 192, MPV 9.9, Neut % (Auto) 32.7 L, Lymph % (Auto) 55.6 H, [place] % (Auto) 6.5, Eos % (Auto) 4.6, Baso % (Auto) 0.2, Neut # (Auto) 3.2, Lymph # (Auto) 5.5 H, [place] # (Auto) 0.6, Eos # (Auto) 0.5 H, Baso # (Auto) 0.0, Total Counted 100, Neutrophils % (Manual) 32 L, Lymphocytes % (Manual) 57 H, Atypical Lymphs % 5.0, Eosinophils % (Manual) 6 H, Platelet Estimate Normal, RBC Morphology Normal, Sodium 136, Potassium 3.6, Chloride 105, Carbon Dioxide 30, Anion Gap 4.6 L, BUN 36 H, Creatinine 2.10 H, Estimated Creat Clear 33, Estimated GFR 23 L, Est GFR ( Amer) 28 L, Glucose 140 H, Calcium 8.3 L 08/26/24 10:12: POC Glucose 193 H I & O for Last 24 hours: Intake & Output 08/23/24 08/24/24 08/25/24 08/26/24 23:59 23:59 23:59 23:59 Intake Total 1360 / 1600 600 / 600 Output Total 2200 / 2200 550 / 550 Balance -840 / -600 50 / 50 Weight 90.265 kg 90.673 kg 90.615 kg Microbiology Reports for the Last 24 Hours: Microbiology 08/24/24 20:41 Urine,Clean Catch Urine Culture - Final Multiple organisms, suggests contamination. 08/24/24 21:35 Blood Blood Culture - Preliminary NO GROWTH AFTER 24 HOURS 08/24/24 21:30 Blood Blood Culture - Preliminary NO GROWTH AFTER 24 HOURS Constitutional Constitutional: no acute distress *Routine HEENT Exam Head: Present normocephalic Eye: Present EOMI and PERRL ENT: Present mucous membranes moist *Routine Neck Exam Neck: Present supple; Absent lymphadenopathy *Routine Respiratory Exam Respiratory: Present CTA bilaterally *Routine Cardiovascular Exam Cardiovascular: Present RRR *Routine Abdominal Exam Abdominal: Present soft and normoactive bowel sounds; Absent tenderness *Routine Extremities Exam Extremities: Present edema; Absent cyanosis or clubbing *Routine Skin Exam Skin: Present warm; Absent rash *Routine Neurological Exam Neurological: Present alert Results Data Completed and Pending Labs on day of discharge: Labs from last 24 hours 08/26/24 08/26/24 08/25/24 10:12 06:59 20:06 WBC 9.9 RBC 2.84 L Hgb 8.2 L Hct 25.5 L MCV 89.8 MCH 28.9 MCHC 32.2 RDW 14.4 Plt Count 192 MPV 9.9 Neut % (Auto) 32.7 L Lymph % (Auto) 55.6 H [place] % (Auto) 6.5 Eos % (Auto) 4.6 Baso % (Auto) 0.2 Neut # (Auto) 3.2 Lymph # (Auto) 5.5 H [place] # (Auto) 0.6 Eos # (Auto) 0.5 H Baso # (Auto) 0.0 Total Counted 100 Neutrophils % (Manual) 32 L Lymphocytes % (Manual) 57 H Atypical Lymphs % 5.0 Eosinophils % (Manual) 6 H Platelet Estimate Normal RBC Morphology Normal Sodium 136 Potassium 3.6 Chloride 105 Carbon Dioxide 30 Anion Gap 4.6 L BUN 36 H Creatinine 2.10 H Estimated Creat Clear 33 Estimated GFR 23 L Est GFR ( Amer) 28 L Glucose 140 H POC Glucose 193 H 242 H Calcium 8.3 L NT-Pro-B Natriuret Pep 08/25/24 08/25/24 15:37 06:12 WBC RBC Hgb Hct MCV MCH MCHC RDW Plt Count MPV Neut % (Auto) Lymph % (Auto) [place] % (Auto) Eos % (Auto) Baso % (Auto) Neut # (Auto) Lymph # (Auto) [place] # (Auto) Eos # (Auto) Baso # (Auto) Total Counted Neutrophils % (Manual) Lymphocytes % (Manual) Atypical Lymphs % Eosinophils % (Manual) Platelet Estimate RBC Morphology Sodium Potassium Chloride Carbon Dioxide Anion Gap BUN Creatinine Estimated Creat Clear Estimated GFR Est GFR ( Amer) Glucose POC Glucose 217 H Calcium NT-Pro-B Natriuret Pep 5240 H Preliminary micro results at discharge 08/24/24 21:35 Blood Culture - Preliminary Blood NO GROWTH AFTER 24 HOURS 08/24/24 21:30 Blood Culture - Preliminary Blood NO GROWTH AFTER 24 HOURS DS: Diagnosis Discharge Diagnosis (1) UTI (urinary tract infection): Status: Acute Code(s): N39.0 - Urinary tract infection, site not specified Qualifiers: Urinary tract infection type: site unspecified Hematuria presence: without hematuria Qualified Code(s): N39.0 - Urinary tract infection, site not specified (2) Weakness: Status: Acute Code(s): R53.1 - Weakness Meds Home Medications and Allergies Home Medications ?Medication ?Instructions ?Recorded ?Confirmed ?Type insulin lispro 100 unit/mL 0 - 14 unit (0 - 0.14 mL) SQ 12/14/22 08/25/24 Rx subcutaneous pen (Humalog KwikPen TIDWMEAL Diabetes #10 mL (U-100) Insulin) levothyroxine 88 mcg tablet 88 mcg PO DAILY 07/26/24 08/24/24 History hydralazine 25 mg tablet 25 mg PO TID 30 days #90 tabs 07/27/24 08/24/24 Rx insulin glargine 100 unit/mL (3 18 unit (0.18 mL) SQ BID Diabetes 07/27/24 08/25/24 Rx mL) subcutaneous pen (Lantus #10 mL Solostar U-100 Insulin) gabapentin 400 mg capsule 400 mg PO TID #90 caps 08/09/24 08/24/24 Rx clonazepam 0.5 mg tablet 0.5 mg PO BID PRN anxiety #60 tabs 08/19/24 08/24/24 Rx guaifenesin 1,200 mg tablet, 1,200 mg PO BID PRN congestion #10 08/24/24 08/24/24 Rx extended release 12 hr (Mucinex) tabs bumetanide 1 mg tablet 2 mg (2 x 1 mg) PO DAILY 30 days 08/25/24 08/25/24 Rx #0 tabs folic acid 1 mg tablet 1 mg PO DAILY #30 tabs 08/25/24 Rx mecobalamin (vitamin B12) 1,000 1,000 mcg PO DAILY #30 tabs 08/25/24 Rx mcg chewable tablet cefdinir 300 mg capsule 300 mg PO BID 4 days #8 caps 08/26/24 Rx hydrocodone 5 mg-acetaminophen 325 1 tab PO Q8H PRN Moderate Pain 08/26/24 Rx mg tablet (Scale Score 5-6) #90 tabs spironolactone 25 mg tablet 50 mg (2 x 25 mg) PO DAILY 30 days 08/26/24 Rx #60 tabs New Prescriptions to Start Prescriptions: cefdinir Celso Dominguez folic acid Celso Dominguez mecobalamin (vitamin B12) Celso Dominguez spironolactone Celso Dominguez Allergies Allergy/AdvReac Type Severity Reaction Status Date / Time moxifloxacin Allergy Severe S-ANAPHYLAX Verified 08/24/24 12:09 IS Sulfa (Sulfonamide Allergy Mild NA-NAUSEA/V Verified 08/24/24 12:09 Antibiotics) OMITING Discharge Plan Disposition Patient Disposition: er SNF Condition: Fair Discharge Order Discharge Orders: Discharge Order (Routine); Ordered 08/26/24 Ordered By: Celso Dominguez Follow up Plan Follow up with: Lila Parekh APRN [Primary Care Provider] - 09/02/24 10:00 am Talon Wiggins MD [Staff Physician] - 09/14/24 10:30 am Prescriptions/Medication Reconciliation: New folic acid 1 mg tablet 1 mg PO DAILY Qty: 30 0RF mecobalamin (vitamin B12) 1,000 mcg tablet,chewable 1,000 mcg PO DAILY Qty: 30 0RF spironolactone 25 mg Tablet 50 mg PO DAILY 30 Days Qty: 60 0RF cefdinir 300 mg capsule 300 mg PO BID 4 Days Qty: 8 0RF Continued guaifenesin [Mucinex] 1,200 mg tablet extended release 12hr 1,200 mg PO BID PRN (Reason: congestion) Qty: 10 0RF gabapentin 400 mg capsule 400 mg PO TID Qty: 90 0RF clonazepam 0.5 mg tablet 0.5 mg PO BID PRN (Reason: anxiety) Qty: 60 0RF hydrocodone-acetaminophen 5-325 mg tablet 1 tab PO Q8H PRN (Reason: Moderate Pain (Scale Score 5-6)) Qty: 90 0RF insulin lispro [Humalog KwikPen Insulin] 100 unit/mL insulin pen 0 - 14 unit SQ TIDWMEAL Qty: 10 10RF Rx Instructions: Per home sliding scale If blood sugar 151-200 take 4 units short acting insulin If blood sugar 200-250 take 8 units short acting insulin If blood sugar 251-300 take 12 units short acting insulin If blood sugar 301-350 take 14 units short acting insulin If blood sugar greater than 350 take 14 units insulin and call physician for further instructions. levothyroxine 88 mcg tablet 88 mcg PO DAILY hydralazine 25 mg Tablet 25 mg PO TID 30 Days Qty: 90 0RF insulin glargine [Lantus Solostar U-100 Insulin] 100 unit/mL (3 mL) insulin pen 18 unit SQ BID Qty: 10 10RF Changed bumetanide 1 mg tablet 2 mg PO DAILY 30 Days Qty: 0 0RF Discontinued dapagliflozin propanediol [Farxiga] 10 mg tablet 10 mg PO DAILY Problem Reconciliation Problems Reviewed?: Yes Patient Discharge Instructions Patient Instructions: Urinary Tract Infection, Carbohydrate-Counting Diet, How to Prevent Falls, DI for Sepsis -- Adult, DI for Leukocytosis, Using Nutrition Labels: Carbohydrate Diet, Heart-Healthy Consistent Carbohydrate Diet Print Language: Kiswahili Providers Primary Care Provider: Lila Parekh Provider: Stef Paulino Attending Provider: Stef Paulino
--- NOTE | 2024-08-26 13:41 | PC.NURSE ---
report called to jasen pandya.
[2024-08-26 13:51] VITALS: BMI 30.2
[2024-08-26 22:18] LABS: Peripheral Smear Review Scanned Result
[2024-08-30 01:13] LABS: Zinc 48 ug/dL (44-115)
== END 2024-08-26 14:05 ==
LOC: ER 21:18 → 2ND 21:48
PROVIDERS: Nurse Practitioner Family; Physician Assistant; Student in an Organized Health Care Education/Training Program; Admitting Provider Internal Medicine Adolescent Medicine; Emergency Provider Emergency Medicine; PCP Nurse Practitioner; Visit Provider Internal Medicine Adolescent Medicine
DX: N39.0 Urinary tract infection, site not specified (principal); R53.1 Weakness; R29.6 Repeated falls; E11.22 Type 2 diabetes mellitus with diabetic chronic kidney disease; N18.4 Chronic kidney disease, stage 4 (severe); I13.0 Hypertensive heart and chronic kidney disease with heart failure and stage 1 through stage 4 chronic kidney disease, or unspecified chronic kidney disease; I50.23 Acute on chronic systolic (congestive) heart failure; E87.70 Fluid overload, unspecified; D72.829 Elevated white blood cell count, unspecified; C91.10 Chronic lymphocytic leukemia of B-cell type not having achieved remission; D64.9 Anemia, unspecified; E11.65 Type 2 diabetes mellitus with hyperglycemia; Z79.4 Long term (current) use of insulin
CPT/HCPCS: 36415; 70450; 72125; 72128; 72131; 72192; 73560; 80048; 80053; 81001; 82607; 82728; 82746; 82962; 83540; 83550; 83880; 84145; 84443; 84630; 85007; 85025; 85044; 87040; 87086; 87633; 93306; 97162; 97165; 97530; 99291; G0378; J0696; J1644; J1939; J2405; J7120

== ENCOUNTER 2024-09-23 15:07 | Outpatient (CLI) | payer MEDICARE, SELFPAY ==
[2024-09-23 17:02] LABS: Chloride 104 mmol/L (98-107); Sodium 142 mmol/L (136-145)
[2024-09-23 17:03] LABS: Potassium 4.6 mmoL/L (3.5-5.1)
[2024-09-23 17:05] LABS: Blood Urea Nitrogen 59 mg/dl (7-17); Estimated Glomerular Filt Rate 18 ml/min (>60); GFR (African American) 22 ML/MIN (>60)
[2024-09-23 17:06] LABS: Anion Gap 16.6 mEq/L (5-15); Calcium 9.2 mg/dl (8.4-10.2); Carbon Dioxide 26 mmol/L (22.0-30.0); Glucose 217 mg/dl (74-100)
== END 2024-09-23 23:59 | disposition home or self-care (01) ==
LOC: LAB.DROPOF 15:08
PROVIDERS: PCP Internal Medicine; Visit Provider Internal Medicine
DX: I11.0 Hypertensive heart disease with heart failure (principal); I50.33 Acute on chronic diastolic (congestive) heart failure
CPT/HCPCS: 80048

== ENCOUNTER 2024-10-11 11:10 | Outpatient (CLI) | payer MEDICARE, SELFPAY ==
[2024-10-11 14:29] LABS: Anion Gap 17.6 mEq/L (5-15); Blood Urea Nitrogen 52 mg/dl (7-17); Calcium 8.9 mg/dl (8.4-10.2); Carbon Dioxide 22 mmol/L (22.0-30.0); Chloride 104 mmol/L (98-107); Estimated Glomerular Filt Rate 16 ml/min (>60); GFR (African American) 19 ML/MIN (>60); Glucose 193 mg/dl (74-100); Potassium 4.6 mmoL/L (3.5-5.1); Sodium 139 mmol/L (136-145)
== END 2024-10-11 23:59 | disposition home or self-care (01) ==
LOC: LAB.DROPOF 10-12 14:45
PROVIDERS: PCP Internal Medicine; Visit Provider Internal Medicine
DX: I13.0 Hypertensive heart and chronic kidney disease with heart failure and stage 1 through stage 4 chronic kidney disease, or unspecified chronic kidney disease (principal); N18.4 Chronic kidney disease, stage 4 (severe); I50.32 Chronic diastolic (congestive) heart failure
CPT/HCPCS: 80048

== ENCOUNTER 2024-10-24 16:45 | Observation (INO) | payer MEDICARE, SELFPAY ==
[2024-10-24] VITALS (8 sets, daily range): BP systolic 136–155; BP diastolic 54–69; PULSE 59–67; RESP 12–18; TEMP 36.6–36.7; O2SAT 96–98; BMI 31.1
--- NOTE | 2024-10-24 16:49 | ED_ITS ---
Discharge Plan Disposition Patient Disposition: Admitted Condition: Fair Clinical Impressions Clinical Impression: Acute kidney injury Discharge ED Provider: Pj Gordon General Adult HPI General Chief complaint: Weakness Stated complaint: nausea/diarrhea Time Seen by Provider: 10/24/24 16:48 History of Present Illness HPI narrative: Patient presents for evaluation of right lower quadrant pain and generalized weakness, acute in onset starting today. She was in her normal state of health yesterday. In the night she noticed some right lower quadrant pain that is largely resolved. She feels that her pain is somewhat similar to history of kidney stones which she has had in the past however denies dysuria. She has had associated nonbloody diarrhea. No fevers or chills or nausea or vomiting or chest pain. No sick contacts. Please note that above description of symptoms, in this electronic medical record under categorization of recalled from ER triage doctor by RN are reflective of an initial nursing assessment, however, is not reflective of my full history and physical exam that was personally taken and clarified. Consequentially, this preceding description of symptoms, which may include the patient's categorized chief complaint in the EMR, do not reflect my personal clinical impression, and the ultimate description of history of present illness and patient stated complaints should be deferred to this section of the note. Unless stated otherwise or congruent with this section of the note, additional signs, symptoms, or incongruence should be interpreted as inaccurate with my clinical impression. Related Data Home Medications ?Medication ?Instructions ?Recorded ?Confirmed levothyroxine 88 mcg tablet 88 mcg PO DAILY 07/26/24 10/24/24 spironolactone 50 mg tablet 50 mg PO DAILY 10/25/24 10/25/24 Previous Rx's ?Medication ?Instructions ?Recorded insulin lispro 100 unit/mL 0 - 14 unit (0 - 0.14 mL) SQ 12/14/22 subcutaneous pen (Humalog KwikPen TIDWMEAL Diabetes #10 mL (U-100) Insulin) gabapentin 400 mg capsule 400 mg PO TID #90 caps 10/14/24 clonazepam 0.5 mg tablet 0.5 mg PO BID PRN anxiety #60 tabs 10/18/24 hydralazine 50 mg tablet 50 mg PO TID #90 tabs 10/20/24 nifedipine 90 mg tablet,extended 90 mg PO DAILY #30 tabs 10/20/24 release hydrocodone 5 mg-acetaminophen 325 1 tab PO Q8H PRN Moderate Pain 10/22/24 mg tablet (Scale Score 5-6) #90 tabs bumetanide 1 mg tablet 2 mg (2 x 1 mg) PO BID 30 days #0 10/25/24 tabs insulin glargine 100 unit/mL (3 22 unit (0.22 mL) SQ BID Diabetes 10/25/24 mL) subcutaneous pen (Lantus #10 mL Solostar U-100 Insulin) Allergies Allergy/AdvReac Type Severity Reaction Status Date / Time moxifloxacin Allergy Severe S-ANAPHYLAX Verified 10/20/24 11:30 IS Sulfa (Sulfonamide Allergy Mild NA-NAUSEA/V Verified 10/20/24 11:30 Antibiotics) OMITING PFSH PFSH Disclaimer: The information contained in this section may have been updated after the patient was seen, as this information can be updated by other users. Medical History (Updated 10/25/24 @ 13:20 by Annemarie Henson APRN) Callus of foot Edema Hypervolemia Leukocytosis UTI (urinary tract infection) Urinary tract infectious disease Sepsis without septic shock Noncompliance Acute kidney injury superimposed on chronic kidney disease Diabetic foot ulcer Sinusitis Hyperkalemia Urinary tract infection Hyperkalemia High anion gap metabolic acidosis Renal failure Falls frequently Viral URI with cough Skin infection, bacterial Avulsed toenail Ulcer of right great toe due to diabetes mellitus Frequent falls Statin intolerance Hyperlipidemia Bradycardia Syncope and collapse Syncope Falls Neuropathy Osteopenia Onychodystrophy Pain of toe of right foot Fracture of second toe, right, closed Edema of toe Acquired hammer toe Closed rib fracture Fall Hyperglycemia due to type 2 diabetes mellitus Bacteremia due to Klebsiella pneumoniae UTI due to Klebsiella species Gram-negative bacteremia DKA (diabetic ketoacidoses) Hyperglycemia due to type 2 diabetes mellitus CLL (chronic lymphocytic leukemia) History of hypertension Diabetes mellitus Surgical History H/O lithotripsy History of cholecystectomy Family History Other Cancer Congestive heart failure (CHF) Heart disease Lymphoma Social History Smoking Status: Never smoker alcohol intake: never substance use type: denies use current occupational status: retired Travel in the last 8 weeks?: None household members: none housing: house caffeine: Yes Other Medical History Have you received the Flu Vaccine for this season: No Have you received the Pneumonia Vaccine: No ROS Obtained: Yes other As per HPI Physical Exam General General appearance: alert and in no apparent distress Head Head exam: atraumatic and normocephalic Eye Eye exam: Present normal appearance Neck Neck exam: Present normal inspection Chest Chest inspection: Present normal inspection and symmetric chest wall rise Respiratory Respiratory exam: Present normal lung sounds bilaterally; Absent respiratory distress Cardiovascular Cardiovascular exam: Present regular rate and normal rhythm Abdominal Exam Abdominal exam: Present soft Neurological Exam Neurological exam: Present alert and oriented X3 Psychiatric Psychiatric exam: Present normal affect and normal mood Skin Skin exam: Present warm and dry Medical Decision Making Medical Records Medical records reviewed: Yes I reviewed the patient's medical records. Screening: Per USPSTF and CDC recommendations, given the prevalence of disease in our region, it is our hospital?s policy to screen for HIV and viral Hepatitis for all patients aged 18 and over and those with ongoing risk factors. Xu Inquiry Pt receiving controlled substance: No Vital Signs: 10/24/24 16:45 10/24/24 17:00 10/24/24 18:18 Temperature 97.8 F Temperature Source Oral Pulse Rate 65 65 Pulse Rate [Right] 65 Respiratory Rate 18 14 17 Blood Pressure 147/63 H 151/56 H Blood Pressure [Right Arm] 136/55 L Blood Pressure Mean [Right Arm] 82 Blood Pressure Position 02 Sat by Pulse Oximetry 98 98 98 Oxygen Delivery Method Room Air 10/24/24 18:31 10/24/24 19:00 10/24/24 19:30 Temperature Temperature Source Pulse Rate 59 L 60 Pulse Rate [Right] 65 Respiratory Rate 16 12 15 Blood Pressure 140/54 L 155/63 H Blood Pressure [Right Arm] Blood Pressure Mean [Right Arm] Blood Pressure Position 02 Sat by Pulse Oximetry 96 96 96 Oxygen Delivery Method Room Air Room Air 10/24/24 19:35 Temperature 97.8 F Temperature Source Oral Pulse Rate 67 Pulse Rate [Right] Respiratory Rate 14 Blood Pressure 152/66 H Blood Pressure [Right Arm] Blood Pressure Mean [Right Arm] Blood Pressure Position Sitting 02 Sat by Pulse Oximetry Oxygen Delivery Method Room Air Lab Data Lab Results 10/24/24 08:20: Stl Aeromonas (PCR) Not detected, Stl C. cayetanensis PCR Not detected, Stool Rotavirus (PCR) Not detected, Stl Adenov F 40/41 PCR Not detected, Stool Astrovirus (PCR) Not detected, Stool Campylobacter PCR Not detected, Stl C.difficile Tox PCR Not detected, Stool Cryptosporidium PCR Not detected, Stl E.coli Shiga Tox PCR Not detected, Stool E coli O157 PCR Not detected, Stl Enterotoxigenic E PCR Not detected, Stool EPEC (PCR) Not detected, Stool EAEC (PCR) Not detected, Stl E. histolytica PCR Not detected, Stool Giardia Lamblia PCR Not detected, Stool Salmonella PCR Not detected, Stool Sapovirus (PCR) Not detected, Stl P. shigelloides PCR Not detected, Stl Shigella/EIEC PCR Not detected, St Y.enterocolitica PCR Not detected, Stool Vibrio (PCR) Not detected, Stl Vibrio cholerae PCR Not detected, Stl Norovirus GI/GII PCR Not detected 10/24/24 16:45: WBC 16.5 H, RBC 3.32 L, Hgb 9.5 L, Hct 29.0 L, MCV 87.3, MCH 28.6, MCHC 32.8, RDW 14.3, Plt Count 242, MPV 10.5 H, Neut % (Auto) 47.9, Lymph % (Auto) 46.5, [place] % (Auto) 3.3, Eos % (Auto) 1.6, Baso % (Auto) 0.3, Neut # (Auto) 7.9 H, Lymph # (Auto) 7.7 H, [place] # (Auto) 0.6, Eos # (Auto) 0.3, Baso # (Auto) 0.1, Total Counted 100, Neutrophils % (Manual) 49, Lymphocytes % (Manual) 46, Monocytes % (Manual) 2, Eosinophils % (Manual) 2, Blast Cells % 1.0, Platelet Estimate Normal, RBC Morphology Normal, Sodium 137, Potassium 4.7, Chloride 107, Carbon Dioxide 19 L, Anion Gap 15.7 H, BUN 53 H, Creatinine 3.90 H , Estimated Creat Clear 18, Estimated GFR 11 L*, Est GFR ( Amer) 14 L*, G lucose 275 H, Hemoglobin A1c 10.0 H D, Calcium 8.2 L, Total Bilirubin 0.2, AST 22, ALT 18, Alkaline Phosphatase 113, Total Protein 6.5, Albumin 3.5, Globulin 3.0, Albumin/Globulin Ratio 1.2, Lipase 82, HCV Ab CARO w/Rflx PCR Qn Negative, HIV Ag/Ab Combo Qual Negative 10/24/24 18:18: Urine Color Yellow, Urine Appearance Clear, Urine pH 5.5, Ur Specific [place] 1.024, Urine Protein 3+ A, Urine Glucose (UA) 2+, Urine Ketones Negative, Urine Blood 1+ A, Urine Nitrate Negative, Urine Bilirubin Negative, Urine Urobilinogen 0.2, Ur Leukocyte Esterase Negative, Urine RBC 3-5, Urine WBC Occasional, Ur Squamous Epith Cells 5-10, Ur Transition Epith Cell Occ, Urine Bacteria 2+, Fine Granular Casts Occasional, Coarse Granular Casts 3-5 10/24/24 19:09: VBG pH 7.30 L, VBG pCO2 37.7, VBG pO2 51.6 H, VBG HCO3 18.2 L, V BG Total CO2 19.4 L, VBG O2 Saturation 84.6 H, VBG Base Excess -8.2 L, VBG Lactic Acid 1.9 10/25/24 05:49 10/25/24 05:49 Orders (Tests/Meds): ED MEDICATIONS Discontinued Medications Generic Name Dose Route Start Last Admin Trade Name Freq PRN Reason Stop Dose Admin Hydrocodone Bitart/Acetaminophen 1 tab 10/24/24 20:35 Hydrocodone/Apap 5/325 Mg Tablet PO 11/23/24 20:34 Q8HP PRN Moderate Pain (Scale Score 5-6) Clonazepam 0.5 mg 10/24/24 20:35 Clonazepam 0.5mg Tablet PO 11/23/24 20:34 BID PRN anxiety Clonazepam 0.5 mg 10/25/24 15:14 Clonazepam 0.5mg Tablet PO 11/23/24 20:34 BIDP PRN anxiety Cyanocobalamin 1,000 mcg 10/25/24 07:54 10/25/24 08:22 Vitamin B-12 1,000 Mcg 1ml Vial IM 10/25/24 07:55 1,000 mcg ONCE ONE Administration Enoxaparin Sodium 30 mg 10/25/24 09:00 10/25/24 08:22 Enoxaparin 30mg/0.3ml Syringe SUBCUT 11/24/24 08:59 30 mg DAILY WILFREDO Administration Folic Acid 1 mg 10/25/24 09:00 10/25/24 08:22 Folic Acid 1mg Tablet PO 11/24/24 08:59 1 mg DAILY WILFREDO Administration Lactated Ringer's 1,000 mls @ 999 mls/hr 10/24/24 18:51 10/24/24 19:15 Lactated Ringer's 1000 Ml Bag IV 10/24/24 19:51 999 mls/hr .Q1H1M ONE Administration Insulin Glargine 18 unit 10/24/24 21:00 10/24/24 21:10 Insulin Glargine 100 Units/Ml 3ml Flexpen SUBCUT 11/23/24 20:59 18 units BID WILFREDO Administration Insulin Glargine 22 unit 10/25/24 09:00 10/25/24 08:23 Insulin Glargine 100 Units/Ml 3ml Flexpen SUBCUT 11/24/24 08:59 22 units BID WILFREDO Administration Insulin Human Lispro 0 unit 10/24/24 21:00 10/25/24 11:34 Humalog 100 Units/Ml 10ml Vial (Ssi) SUBCUT 11/23/24 20:59 Not Given ACHS WILFREDO Protocol Levothyroxine Sodium 88 mcg 10/25/24 09:00 10/25/24 08:21 Levothyroxine 88mcg (0.088mg) Tab PO 11/24/24 08:59 88 mcg DAILYDM WILFREDO Administration Levothyroxine Sodium 88 mcg 10/26/24 07:00 *Pat Own Med* Levothyroxine 88mcg (0.088mg) Tab PO 11/25/24 06:59 DAILYDM WILFREDO Nifedipine 90 mg 10/25/24 09:00 10/25/24 08:22 Nifedipine Xl 30mg Tablet PO 11/24/24 08:59 90 mg DAILY WILFREDO Administration *Pat Own Med* 1 each 10/26/24 09:00 Nifedipine Er 90mg PO 11/25/24 08:59 DAILY WILFREDO Nystatin 1 gm 10/24/24 21:00 10/24/24 21:00 Nystatin Topical Powder 30gm TP 11/23/24 20:59 1 gm QID WILFREDO Administration Nystatin 0 gm 10/25/24 07:13 10/25/24 13:18 Nystatin Topical Powder 30gm TP 11/23/24 20:59 1 dose QID WILFREDO Administration Vancomycin HCl 125 mg 10/25/24 09:00 10/25/24 08:29 Vancomycin Hcl 50mg/Ml 150ml Kit PO 11/03/24 21:01 125 mg QID WILFREDO Administration ORDERS Category Date Time Status CT abdomen pelvis wo con Stat Cat Scan 10/24/24 17:12 Completed CBC w/Auto Diff [Complete Blood Count Auto Diff] Stat Lab 10/24/24 16:45 Completed CMP [Comprehensive Metabolic Panel] Stat Lab 10/24/24 16:45 Completed Complete Blood Count Auto Diff AMLAB Lab 10/25/24 05:49 Completed Comprehensive Metabolic Panel AMLAB Lab 10/25/24 05:49 Completed HIV Combo Stat Lab 10/24/24 16:45 Completed Hepatitis C Ab Qual. W/ RFX Stat Lab 10/24/24 16:45 Completed Lipase Stat Lab 10/24/24 16:45 Completed Magnesium AMLAB Lab 10/25/24 05:49 Completed Urinalysis and Microscopic Stat Lab 10/24/24 18:18 Completed Urine Culture Stat Micro 10/24/24 18:19 Completed VBG [Venous Blood Gas] Stat RT 10/24/24 19:09 Completed Medical Decision Narrative: Patient with history and exam per above presenting for evaluation of multiple complaints including generalized weakness, decreased p.o. intake Diagnoses considered include ACS, electrolyte abnormality, RANDY, among others ED workup and treatment included: ED MEDICATIONS Discontinued Medications Generic Name Dose Route Start Last Admin Trade Name Freq PRN Reason Stop Dose Admin Hydrocodone Bitart/Acetaminophen 1 tab 10/24/24 20:35 Hydrocodone/Apap 5/325 Mg Tablet PO 11/23/24 20:34 Q8HP PRN Moderate Pain (Scale Score 5-6) Clonazepam 0.5 mg 10/24/24 20:35 Clonazepam 0.5mg Tablet PO 11/23/24 20:34 BID PRN anxiety Clonazepam 0.5 mg 10/25/24 15:14 Clonazepam 0.5mg Tablet PO 11/23/24 20:34 BIDP PRN anxiety Cyanocobalamin 1,000 mcg 10/25/24 07:54 10/25/24 08:22 Vitamin B-12 1,000 Mcg 1ml Vial IM 10/25/24 07:55 1,000 mcg ONCE ONE Administration Enoxaparin Sodium 30 mg 10/25/24 09:00 10/25/24 08:22 Enoxaparin 30mg/0.3ml Syringe SUBCUT 11/24/24 08:59 30 mg DAILY WILFREDO Administration Folic Acid 1 mg 10/25/24 09:00 10/25/24 08:22 Folic Acid 1mg Tablet PO 11/24/24 08:59 1 mg DAILY WILFREDO Administration Lactated Ringer's 1,000 mls @ 999 mls/hr 10/24/24 18:51 10/24/24 19:15 Lactated Ringer's 1000 Ml Bag IV 10/24/24 19:51 999 mls/hr .Q1H1M ONE Administration Insulin Glargine 18 unit 10/24/24 21:00 10/24/24 21:10 Insulin Glargine 100 Units/Ml 3ml Flexpen SUBCUT 11/23/24 20:59 18 units BID WILFREDO Administration Insulin Glargine 22 unit 10/25/24 09:00 10/25/24 08:23 Insulin Glargine 100 Units/Ml 3ml Flexpen SUBCUT 11/24/24 08:59 22 units BID WILFREDO Administration Insulin Human Lispro 0 unit 10/24/24 21:00 10/25/24 11:34 Humalog 100 Units/Ml 10ml Vial (Ssi) SUBCUT 11/23/24 20:59 Not Given ACHS WILFREDO Protocol Levothyroxine Sodium 88 mcg 10/25/24 09:00 10/25/24 08:21 Levothyroxine 88mcg (0.088mg) Tab PO 11/24/24 08:59 88 mcg DAILYDM WILFREDO Administration Levothyroxine Sodium 88 mcg 10/26/24 07:00 *Pat Own Med* Levothyroxine 88mcg (0.088mg) Tab PO 11/25/24 06:59 DAILYDM WILFREDO Nifedipine 90 mg 10/25/24 09:00 10/25/24 08:22 Nifedipine Xl 30mg Tablet PO 11/24/24 08:59 90 mg DAILY WILFREDO Administration *Pat Own Med* 1 each 10/26/24 09:00 Nifedipine Er 90mg PO 11/25/24 08:59 DAILY WILFREDO Nystatin 1 gm 10/24/24 21:00 10/24/24 21:00 Nystatin Topical Powder 30gm TP 11/23/24 20:59 1 gm QID WILFREDO Administration Nystatin 0 gm 10/25/24 07:13 10/25/24 13:18 Nystatin Topical Powder 30gm TP 11/23/24 20:59 1 dose QID WILFREDO Administration Vancomycin HCl 125 mg 10/25/24 09:00 10/25/24 08:29 Vancomycin Hcl 50mg/Ml 150ml Kit PO 11/03/24 21:01 125 mg QID WILFREDO Administration ORDERS Category Date Time Status CT abdomen pelvis wo con Stat Cat Scan 10/24/24 17:12 Completed CBC w/Auto Diff [Complete Blood Count Auto Diff] Stat Lab 10/24/24 16:45 Completed CMP [Comprehensive Metabolic Panel] Stat Lab 10/24/24 16:45 Completed Complete Blood Count Auto Diff AMLAB Lab 10/25/24 05:49 Completed Comprehensive Metabolic Panel AMLAB Lab 10/25/24 05:49 Completed HIV Combo Stat Lab 10/24/24 16:45 Completed Hepatitis C Ab Qual. W/ RFX Stat Lab 10/24/24 16:45 Completed Lipase Stat Lab 10/24/24 16:45 Completed Magnesium AMLAB Lab 10/25/24 05:49 Completed Urinalysis and Microscopic Stat Lab 10/24/24 18:18 Completed Urine Culture Stat Micro 10/24/24 18:19 Completed VBG [Venous Blood Gas] Stat RT 10/24/24 19:09 Completed Labs were independently interpreted by me, significant for acute kidney injury, leukocytosis, elevated anion gap Imaging was independently visualized and interpreted by me, significant for no acute findings Please refer to radiology report for full details. Patient will be admitted to hospital medicine service for further management of acute kidney injury. She was accepted for admission by hospitalist. Critical Care Critical Care Time Critical Care Time: No
--- NOTE | 2024-10-24 16:54 | ECG_ITS ---
APPROVED REPORT Exam: Resting ECG HR:64 bpm ECG Measurements Heart Rate 64 AXES QRSd 98 QRS 0 QT 457 T 79 QTc 466 Conclusion ATRIAL FIBRILLATION POSSIBLE ANTERIOR MYOCARDIAL INFARCTION , OF INDETERMINATE AGE [30 ms Q WAVE IN V3/V4, OR R < 0.2 mV IN V4] Electronically signed by : MARIA GUADALUPE AVALOS, 10/24/2024 23:12:53
--- NOTE | 2024-10-24 17:12 | CT_ITS ---
PROCEDURE INFORMATION: Exam: CT Abdomen And Pelvis Without Contrast Exam date and time: 10/24/2024 5:36 PM Age: 73 years old Clinical indication: Abdominal pain; Additional info: Rlq pain, HX urolithiasis TECHNIQUE: Imaging protocol: Computed tomography of the abdomen and pelvis without contrast. Radiation optimization: All CT scans at this facility use at least one of these dose optimization techniques: automated exposure control; mA and/or kV adjustment per patient size (includes targeted exams where dose is matched to clinical indication); or iterative reconstruction. COMPARISON: CT BONY PELVIS 08/24/2024 9:01 PM FINDINGS: Lungs: Dependent bilateral lung base opacities favor atelectasis. Heart: Small pericardial effusion. Liver: Hypoattenuating circumscribed cystic structure within the right hepatic lobe favors benign hepatic cyst measuring 1.2 cm. Gallbladder and biliary ducts: There are surgical clips within the gallbladder fossa. Pancreas: Normal. No ductal dilation. Spleen: Normal. No splenomegaly. Adrenal glands: Normal. No mass. Kidneys and ureters: Right renal Bosniak 2 cystic lesion defined as homogeneous cysts measuring 21-30 Hounsfield units with smooth thin septations. Measurement is 2.1 cm. No follow-up recommended. 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 Stomach and bowel: Unremarkable. No obstruction. No mucosal thickening. Appendix: No evidence of appendicitis. Intraperitoneal space: Unremarkable. No free air. No significant fluid collection. Vasculature: Moderate calcific atherosclerotic disease of the abdominal aorta without aneurysmal dilatation is present. Lymph nodes: Unremarkable. No enlarged lymph nodes. Urinary bladder: Unremarkable as visualized. Reproductive: The uterus appears surgically absent. Bones/joints: Moderate loss of intervertebral disc space with degenerative changes involving the lumbar spine greatest at L5-S1. Soft tissues: Normal. Other findings: Process report IMPRESSION: No CT evidence of nephrolithiasis or ureterolithiasis. COMMENTS: Consistent with the [employer] [place] [employer]'s Incidental Findings Committee white paper (J Am Lior Radiol 2018): Any incidental renal lesion less than 1 cm or classified as too small to characterize, or any incidental cystic renal lesion characterized as simple-appearing, is likely benign. No follow-up imaging is recommended for these lesions per consensus recommendations based on imaging criteria.
[2024-10-24 17:20] LABS: Albumin Level 3.5 g/dl (3.5-5.0); Chloride 107 mmol/L (98-107); Sodium 137 mmol/L (136-145)
[2024-10-24 17:21] LABS: Potassium 4.7 mmoL/L (3.5-5.1)
[2024-10-24 17:23] LABS: Alanine Aminotransferase 18 U/L (12-78); Albumin/Globulin Ratio 1.2 (1.1-1.8); Alkaline Phosphatase 113 U/L (38-126); Anion Gap 15.7 mEq/L (5-15); Aspartate Amino Transferase 22 U/L (14-36); Bilirubin,Total 0.2 mg/dl (0.2-1.3); Blood Urea Nitrogen 53 mg/dl (7-17); Carbon Dioxide 19 mmol/L (22.0-30.0); Creatinine Clearance Estimated 18 mL/min (50-200); Estimated Glomerular Filt Rate 11 ml/min (>60); GFR (African American) 14 ML/MIN (>60); Total Protein,Serum 6.5 g/dl (6.3-8.2)
[2024-10-24 17:24] LABS: Calcium 8.2 mg/dl (8.4-10.2); Glucose 275 mg/dl (74-100)
--- NOTE | 2024-10-24 17:29 | PC.NURSE ---
pt is gone to ct via stretcher
[2024-10-24 17:36] LABS: Lipase 82 U/L (23-300)
[2024-10-24 17:50] LABS: Basophils # 0.1 K/mm3 (0-0.2); Basophils % 0.3 % (0.1-2.0); Eosinophils # 0.3 Kmm3 (0.0-0.4); Eosinophils % 1.6 % (0.1-12.0); Hemoglobin 9.5 g/dL (12.2-16.2); Lymphocytes # 7.7 K/mm3 (0.7-4.5); Lymphocytes % 46.5 % (10-50); Mean Corpuscular HGB Conc 32.8 g/dL (31.8-35.4); Mean Corpuscular Hemoglobin 28.6 pg (27.0-31.2); Mean Corpuscular Volume 87.3 fl (81-99); Mean Platelet Volume 10.5 fl (7.4-10.4); Monocytes # 0.6 K/mm3 (0.1-1.0); Monocytes % 3.3 % (1.7-9.3); Neutrophils # 7.9 K/mm3 (1.8-7.8); Neutrophils % 47.9 % (37.0-80.0); Nucleated Red Blood Cells # 0 10^3/uL; Nucleated Red Blood Cells % 0 %; Platelet Count 242 K/mm3 (142-424); Red Blood Count 3.32 M/mm3 (4.20-5.40); Red Cell Distribution Width 14.3 % (11.5-17.5); Red Cell Distribution Width-SD 45.9 fL; White Blood Count 16.5 K/mm3 (4.8-10.8)
[2024-10-24 17:52] LABS: MANUAL DIFFERENTIAL MANUAL DIFFERENTIAL (MANUAL DIFF)
[2024-10-24 18:06] LABS: HIV Combo NEGATIVE (Negative)
[2024-10-24 18:11] LABS: Eosinophils % 2 % (0-3); Lymphocytes % 46 % (10-50); Monocytes % 2 % (2-9); Neutrophils % 49 % (42-76); Total Cells Counted 100
[2024-10-24 18:12] LABS: Platelet Estimate Normal; RBC Morphology Normal
[2024-10-24 18:22] LABS: Microscopic, Urine URINE MICROSCOPIC (MICROSCOPIC)
[2024-10-24 18:25] LABS: Hepatitis C Ab Qual. W/ RFX NEGATIVE (Negative)
[2024-10-24 18:30] LABS: Appearance,Urine CLEAR (Clear); Bilirubin,Urine Negative (Negative); Blood, Urine 1+ (Negative); Color,Urine YELLOW (Yellow); Glucose,Urine (UA) 2+ (Negative); Ketones,Urine Negative (Negative); Leukocyte Esterase,Urine Negative (Negative); Nitrate,Urine Negative (Negative); PH,Urine 5.5 (5.0-8.5); Protein,Urine 3+ (Negative); Urobilinogen,Urine 0.2 EU/dl (0.2)
[2024-10-24 18:40] LABS: Specific Gravity, Urine 1.024 (1.005-1.030)
[2024-10-24 18:44] LABS: Bacteria,Urine 2+ /lpf
[2024-10-24 18:47] LABS: Fine Granular Casts,Urine Occasional #/lpf (0); Transitional Epi Cells,Urine OCC #/lpf (0-3)
[2024-10-24 18:49] LABS: WBC,Urine Occasional #/hpf (0-3)
[2024-10-24 19:12] LABS: Lactate Venous 1.9 mmol/L (0.4-2.0); VBG Base Excess -8.2 mmol/L (-2.4-2.3); VBG HCO3 18.2 mmol/L (23-30); VBG Oxygen Saturation 84.6 % (50-70); VBG PCO2 37.7 mmol/L (35-51); VBG PO2 51.6 mmol/L (28-40); VBG Total CO2 19.4 mmol/L (23-27)
[2024-10-24] MEDS: LACTATED RINGERS 1000ML 1,000 ML 999 ML IV (19:15)
--- NOTE | 2024-10-24 19:33 | EXP.HP ---
History of Present Illness *Admission Date: 10/24/24 *Reason for visit:: diarrhea, weakness *History of present illness: Ms. Rivas 73-year-old female with history of stage IV chronic kidney disease, poorly controlled diabetes, hyperlipidemia, bradycardia, syncope, neuropathy, osteopenia, CLL, and hypertension who presents after having an unexpected episode of diarrhea and soiling herself accompanied by abdominal pain. States she has been on antibiotics for over a month since discharge from nursing facility due to wounds on her heels. Was admitted in July for UTI and profound weakness. Discharged to [facility] for 2 weeks. Since being home, developed wounds on her heels while in the hospital and nursing care. Her PCP has put her on antibiotics continuously for over the past month. She denies any nausea or vomiting. States she feels chilled but denies any sydnee fever. No dysuria. Episode of stool occurred without her knowledge, she said she soiled herself and is just not felt well today. Reports improved swelling in her legs though still quite swollen on exam today. Stable on room air. Workup in the ER concerning for persistently elevated white count consistent with her CLL. Worsening kidney function with creatinine 3.9, BUN stable. Potassium 4.7. Glucose elevated. Her diabetes is chronically poorly controlled. Medicine consulted for admission and management of her diarrhea and RANDY. On arrival to the floor, she is more comfortable after receiving multiple blankets. Has some intertriginous irritation of skin consistent with yeast infection. Stable on room air. Alert and oriented x 3. [facility] Disclaimer: The information contained in this section may have been updated after the patient was seen, as this information can be updated by other users. Medical History Edema Hypervolemia Leukocytosis UTI (urinary tract infection) Urinary tract infectious disease Sepsis without septic shock Noncompliance Acute kidney injury superimposed on chronic kidney disease Diabetic foot ulcer Sinusitis Hyperkalemia Urinary tract infection Hyperkalemia High anion gap metabolic acidosis Renal failure Falls frequently Viral URI with cough Skin infection, bacterial Avulsed toenail Ulcer of right great toe due to diabetes mellitus Frequent falls Statin intolerance Hyperlipidemia Bradycardia Syncope and collapse Syncope Falls Neuropathy Osteopenia Onychodystrophy Callus of foot Pain of toe of right foot Fracture of second toe, right, closed Edema of toe Acquired hammer toe Closed rib fracture Fall Hyperglycemia due to type 2 diabetes mellitus Bacteremia due to Klebsiella pneumoniae UTI due to Klebsiella species Gram-negative bacteremia DKA (diabetic ketoacidoses) Hyperglycemia due to type 2 diabetes mellitus CLL (chronic lymphocytic leukemia) History of hypertension Diabetes mellitus Surgical History H/O lithotripsy History of cholecystectomy Family History Other Cancer Congestive heart failure (CHF) Heart disease Lymphoma Social History Smoking Status: Never smoker alcohol intake: never substance use type: denies use current occupational status: retired Travel in the last 8 weeks: None household members: none housing: house caffeine: Yes Have you lived/traveled outside US in past 30 days?: No Contact w/someone who lives/traveled outside US past 30 days?: No Exposure to someone with infectious disease in past 14 days?: No Do you have a fever (greater than 100.4 F or 38 C)?: No Have you tested positive for COVID-19: No Exposed to someone with COVID-19 in past 14 days?: No Do you have a sore throat?: No Do you have a cough?: No Do you have any weakness?: No Are you experiencing any nausea/vomitting?: No Do you have any diarrhea?: No Are you experiencing any unusual bleeding?: No Do you have any muscle aches/pain?: No Do you have any abdominal pain?: No Are you experiencing loss of taste or smell?: No Other Medical History Have you received the Flu Vaccine for this season: No Have you received the Pneumonia Vaccine: No Review of Systems Review of Systems Review of systems (narrative): 14 point review of systems performed, pertinent positives and negatives as per HPI Meds Home Medications and Allergies Home Medications ?Medication ?Instructions ?Recorded ?Confirmed ?Type insulin lispro 100 unit/mL 0 - 14 unit (0 - 0.14 mL) SQ 12/14/22 10/24/24 Rx subcutaneous pen (Humalog KwikPen TIDWMEAL Diabetes #10 mL (U-100) Insulin) levothyroxine 88 mcg tablet 88 mcg PO DAILY 07/26/24 10/24/24 History insulin glargine 100 unit/mL (3 18 unit (0.18 mL) SQ BID Diabetes 07/27/24 10/24/24 Rx mL) subcutaneous pen (Lantus #10 mL Solostar U-100 Insulin) spironolactone 25 mg tablet 50 mg (2 x 25 mg) PO DAILY 30 days 08/26/24 10/24/24 Rx #60 tabs cephalexin 500 mg capsule 1,000 mg (2 x 500 mg) PO BID #60 09/15/24 10/24/24 Rx caps gabapentin 400 mg capsule 400 mg PO TID #90 caps 10/14/24 10/24/24 Rx clonazepam 0.5 mg tablet 0.5 mg PO BID PRN anxiety #60 tabs 10/18/24 10/24/24 Rx hydralazine 50 mg tablet 50 mg PO TID #90 tabs 10/20/24 10/24/24 Rx nifedipine 90 mg tablet,extended 90 mg PO DAILY #30 tabs 10/20/24 10/24/24 Rx release hydrocodone 5 mg-acetaminophen 325 1 tab PO Q8H PRN Moderate Pain 10/22/24 10/24/24 Rx mg tablet (Scale Score 5-6) #90 tabs bumetanide 1 mg tablet 2 mg PO BID 10/24/24 10/24/24 History New Prescriptions to Start Prescriptions: Allergies Allergy/AdvReac Type Severity Reaction Status Date / Time moxifloxacin Allergy Severe S-ANAPHYLAX Verified 10/20/24 11:30 IS Sulfa (Sulfonamide Allergy Mild NA-NAUSEA/V Verified 10/20/24 11:30 Antibiotics) OMITING Exam Data for Last 24 hours Vital signs and Labs for Last 24 Hours: Temp Pulse Resp BP Pulse Ox O2 Del Method 97.8 F 60 12 155/63 H 96 Room Air 10/24/24 16:45 10/24/24 19:00 10/24/24 19:00 10/24/24 19:00 10/24/24 19:00 10/24/24 18:31 Laboratory Results - last 24 hr 10/24/24 16:45: WBC 16.5 H, RBC 3.32 L, Hgb 9.5 L, Hct 29.0 L, MCV 87.3, MCH 28.6, MCHC 32.8, RDW 14.3, Plt Count 242, MPV 10.5 H, Neut % (Auto) 47.9, Lymph % (Auto) 46.5, [place] % (Auto) 3.3, Eos % (Auto) 1.6, Baso % (Auto) 0.3, Neut # (Auto) 7.9 H, Lymph # (Auto) 7.7 H, [place] # (Auto) 0.6, Eos # (Auto) 0.3, Baso # (Auto) 0.1, Total Counted 100, Neutrophils % (Manual) 49, Lymphocytes % (Manual) 46, Monocytes % (Manual) 2, Eosinophils % (Manual) 2, Blast Cells % 1.0, Platelet Estimate Normal, RBC Morphology Normal, Sodium 137, Potassium 4.7, Chloride 107, Carbon Dioxide 19 L, Anion Gap 15.7 H, BUN 53 H, Creatinine 3.90 H, Estimated Creat Clear 18, Estimated GFR 11 L*, Est GFR ( Amer) 14 L*, Glucose 275 H, Calcium 8.2 L, Total Bilirubin 0.2, AST 22, ALT 18, Alkaline Phosphatase 113, Total Protein 6.5, Albumin 3.5, Globulin 3.0, Albumin/Globulin Ratio 1.2, Lipase 82, HCV Ab CARO w/Rflx PCR Qn Negative, HIV Ag/Ab Combo Qual Negative 10/24/24 18:18: Urine Color Yellow, Urine Appearance Clear, Urine pH 5.5, Ur Specific [place] 1.024, Urine Protein 3+ A, Urine Glucose (UA) 2+, Urine Ketones Negative, Urine Blood 1+ A, Urine Nitrate Negative, Urine Bilirubin Negative, Urine Urobilinogen 0.2, Ur Leukocyte Esterase Negative, Urine RBC 3-5, Urine WBC Occasional, Ur Squamous Epith Cells 5-10, Ur Transition Epith Cell Occ, Urine Bacteria 2+, Fine Granular Casts Occasional, Coarse Granular Casts 3-5 10/24/24 19:09: VBG pH 7.30 L, VBG pCO2 37.7, VBG pO2 51.6 H, VBG HCO3 18.2 L, VBG Total CO2 19.4 L, VBG O2 Saturation 84.6 H, VBG Base Excess -8.2 L, VBG Lactic Acid 1.9 I & O for Last 24 hours: Intake & Output 10/21/24 10/22/24 10/23/24 10/24/24 23:59 23:59 23:59 23:59 Weight 92.986 kg Constitutional Constitutional: no acute distress, average body habitus, chronically ill appearing and cooperative *Routine HEENT Exam Head: Present normocephalic Eye: Present EOMI, PERRL and normal accommodation ENT: Present mucous membranes moist *Routine Neck Exam Neck: Present supple *Routine Respiratory Exam Respiratory: Present CTA bilaterally; Absent respiratory distress, rhonchi, wheezes or crackles *Routine Cardiovascular Exam Cardiovascular: Present RRR, Normal S1 and Normal S2 *Routine Abdominal Exam Abdominal: Present soft and normoactive bowel sounds; Absent tenderness *Routine Rectal Exam Rectal:: deferred *Routine Genitalia Exam Genitalia:: deferred *Routine Extremities Exam Extremities: Present edema (Trace 3+ to knees); Absent cyanosis or clubbing *Routine Skin Exam Skin: Present intact; Absent rash Comments: Wounds on heels, right heel with scabbing, left heel with absent epidermis but wounds clean dry and intact, no erythema, no drainage, and very stages of healing. *Routine Neurological Exam Neurological: Present alert, oriented X3, CN II-XII intact, sensory deficit and moving all extremities; Absent altered mental status Routine Psychiatric Exam Psychiatric: Present normal affect Assessment and Plan *Assessment and plan (1) Renal failure: Status: Inactive Qualifiers: Acute renal failure type: unspecified Chronic kidney disease stage: stage 4 (GFR 15-29) Renal failure chronicity: acute on chronic Qualified Code(s): N17.9 - Acute kidney failure, unspecified; N18.4 - Chronic kidney disease, stage 4 (severe) Category: Medical Code(s): N19 - Unspecified kidney failure (2) Falls frequently: Status: Inactive Category: Medical Code(s): R29.6 - Repeated falls (3) Diarrhea: Status: Acute Category: Medical Code(s): R19.7 - Diarrhea, unspecified (4) Hyperlipidemia: Status: Inactive Qualifiers: Hyperlipidemia type: mixed hyperlipidemia Qualified Code(s): E78.2 - Mixed hyperlipidemia Category: Medical Code(s): E78.5 - Hyperlipidemia, unspecified (5) Hypertension: Status: Chronic Qualifiers: Hypertension type: primary hypertension Qualified Code(s): I10 - Essential (primary) hypertension Category: Medical Code(s): I10 - Essential (primary) hypertension (6) 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 Qualifiers: 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: with fpc use Qualified Code(s): E11.42 - Type 2 diabetes mellitus with diabetic polyneuropathy; Z79.4 - long term care phlebotomist (current) use of insulin Category: Medical Code(s): E11.42 - Type 2 diabetes mellitus with diabetic polyneuropathy (7) Anxiety disorder: Status: Chronic Qualifiers: Anxiety disorder type: generalized anxiety disorder Qualified Code(s): F41.1 - Generalized anxiety disorder Category: Medical Code(s): F41.9 - Anxiety disorder, unspecified (8) CKD (chronic kidney disease): Problem Comment: Stage IV Status: Chronic Qualifiers: Chronic kidney disease stage: stage 4 (GFR 15-29) Qualified Code(s): N18.4 - Chronic kidney disease, stage 4 (severe) Category: Medical Code(s): N18.9 - Chronic kidney disease, unspecified (9) CLL (chronic lymphocytic leukemia): Status: Chronic Category: Medical Code(s): C91.10 - Chronic lymphocytic leukemia of B-cell type not having achieved remission (10) Hyperkalemia: Status: Inactive Category: Medical Code(s): E87.5 - Hyperkalemia (11) Decubitus ulcer of heel, bilateral: Status: Acute Category: Medical Code(s): L89.619 - Pressure ulcer of right heel, unspecified stage; L89.629 - Pressure ulcer of left heel, unspecified stage (12) Nephrotic syndrome: Status: Acute Category: Medical Code(s): N04.9 - Nephrotic syndrome with unspecified morphologic changes (13) (HFpEF) heart failure with preserved ejection fraction: Status: Acute Qualifiers: Heart failure chronicity: acute on chronic Qualified Code(s): I50.33 - Acute on chronic diastolic (congestive) heart failure Category: Medical Code(s): I50.30 - Unspecified diastolic (congestive) heart failure Plan 73-year-old female multiple comorbidities including CLL and uncontrolled diabetes. Presented with episode of diarrhea. Has been on prolonged antibiotics. Found to have RANDY. Discussed case with ER physician, request admission for further management of her RANDY on CKD and workup of her diarrhea. I agreed to admit for further care. Hemodynamically stable on arrival to the floor. Problems addressed as follows: UTI ?? Acute renal failure CKD 4 -Patient's BUN 53, consistent with last admission. Creatinine elevated however at 3.9, significant elevation of more than 30% since last admission. - Will hold Bumex and spironolactone in setting of RANDY - Gentle hydration with 1 L IV fluids administered at time of admission - Repeat CBC, CMP, magnesium ordered for the morning - Urinalysis abnormal with 1+ blood, negative nitrate, negative leuk esterase, 2+ bacteria and occasional granular casts. Concerning for nephrotic syndrome. Will hold on treatment of UTI given prolonged antibiotics over the past month. Culture pending. Asymptomatic at this time. -If renal function decreases, will consider transfer for nephrology evaluation. Diarrhea: Prolonged antibiotics over the past month. Concern for onset of diarrhea and abdominal pain. High risk for C. difficile due to prolonged antibiotics, immune deficiency with CLL. Will empirically initiate vancomycin 125 mg every 6 hours. Diarrhea panel pending. Will discontinue antibiotics if diarrhea panel negative. Diabetes - History of diabetes, last A1c of 12 in June. Repeat A1c 10. Increase Lantus to 22 units twice daily. Continue high intensity sliding scale insulin with fingersticks ACHS -Nursing and provider to assist with diabetes teaching during admission. Patient already having endorgan damage, gets injections in her eyes. Has cortical thinning of her kidneys. Has significant neuropathy in her extremities. CLL -Complicates all aspects of her care. Patient relatively manage compromised. Monitor white count daily with CBC ordered for the morning - Previous uric acid level of 10 in June, repeat pending for the morning. - No signs of gout at this time - Monitoring phosphorus and potassium for tumor lysis syndrome. No treatment at this time however. Holding gabapentin due to her sydnee renal failure, reevaluate resumption if patient has complaint of pain; continue home hydrocodone 5 mg every 8 hours as needed for moderate to severe pain Hypothyroid: TSH 2 in July. Continue levothyroxine 88 mcg daily Resume Klonopin for anxiety at dose with 0.5 mg 3 times a day as needed Full code Lovenox 30 mg subcu daily Diabetic diet
--- NOTE | 2024-10-24 19:35 | PC.NURSE ---
called report to Eileen JOHNSON at this time.
--- NOTE | 2024-10-24 19:58 | PC.NURSE ---
Patient arrived to floor via stretcher from ED at 19:55.
[2024-10-24 20:34] LABS: POC Glucose,Bedside 227 (70-110)
[2024-10-24] MEDS: NYSTATIN TOPICAL POWDER 30GM TP (21:00)
[2024-10-24] MEDS: humaLOG 100 UNITS/ML 10ML VIAL (SSI) SUBCUT (21:10)
[2024-10-24] MEDS: INSULIN GLARGINE 100 UNITS/ML 3ML FLEXPEN 18 UNIT SUBCUT (21:10)
--- NOTE | 2024-10-24 21:31 | PC.WOUNDNOTE ---
Top image shows the patient's left heel, with an open wound free of drainage or bleeding at this time; approximate dimensions are similar to that of a quarter coin. Bottom image shows the patient's right heel, with two small closed wounds + eschar noted. No odors. Skin is very dry and flaky on her bilateral lower extremities. Both heels were dressed with a foam flower pad dressing, and the patient's lower extremities are elevated.
[2024-10-25 04:00] VITALS: BP 143/58; PULSE 60; RESP 16; TEMP 37.2; O2SAT 95
[2024-10-25 05:31] LABS: POC Glucose,Bedside 154 (70-110)
[2024-10-25] MEDS: humaLOG 100 UNITS/ML 10ML VIAL (SSI) SUBCUT (05:53)
[2024-10-25 06:22] LABS: Basophils % 0.3 % (0.1-2.0); Mean Platelet Volume 10.5 fl (7.4-10.4); Monocytes # 0.5 K/mm3 (0.1-1.0); Neutrophils # 4.9 K/mm3 (1.8-7.8); Nucleated Red Blood Cells # 0 10^3/uL; Nucleated Red Blood Cells % 0 %
[2024-10-25 06:25] LABS: Albumin Level 2.5 g/dl (3.5-5.0); Chloride 111 mmol/L (98-107); Sodium 137 mmol/L (136-145)
[2024-10-25 06:28] LABS: Alanine Aminotransferase 11 U/L (12-78); Alkaline Phosphatase 87 U/L (38-126); Aspartate Amino Transferase 19 U/L (14-36); Blood Urea Nitrogen 55 mg/dl (7-17); Calcium 7.6 mg/dl (8.4-10.2); Carbon Dioxide 23 mmol/L (22.0-30.0); Creatinine Clearance Estimated 20 mL/min (50-200); Estimated Glomerular Filt Rate 13 ml/min (>60); GFR (African American) 16 ML/MIN (>60); Glucose 138 mg/dl (74-100); Total Protein,Serum 5.2 g/dl (6.3-8.2)
[2024-10-25 06:29] LABS: Magnesium 1.6 mg/dl (1.6-2.3)
[2024-10-25 06:30] LABS: Albumin/Globulin Ratio 0.9 (1.1-1.8); Bilirubin,Total 0.1 mg/dl (0.2-1.3); Globulin 2.7 g/dL (1.3-3.2)
[2024-10-25 06:36] LABS: Eosinophils # 0.3 Kmm3 (0.0-0.4); Eosinophils % 3.1 % (0.1-12.0); Hematocrit 23.7 % (37.0-47.0); Lymphocytes # 5.2 K/mm3 (0.7-4.5); Lymphocytes % 47.1 % (10-50); Mean Corpuscular HGB Conc 32.5 g/dL (31.8-35.4); Mean Corpuscular Volume 86.2 fl (81-99); Monocytes % 4.5 % (1.7-9.3); Neutrophils % 44.6 % (37.0-80.0); Platelet Count 194 K/mm3 (142-424); Red Blood Count 2.75 M/mm3 (4.20-5.40); Red Cell Distribution Width 14.4 % (11.5-17.5)
[2024-10-25 06:39] LABS: MANUAL DIFFERENTIAL MANUAL DIFFERENTIAL (MANUAL DIFF)
[2024-10-25 07:01] LABS: Phosphorous 4.9 mg/dl (2.5-4.5); Uric Acid 8.4 mg/dl (2.5-6.2)
[2024-10-25 07:22] VITALS: BP 144/73; PULSE 63; RESP 16; TEMP 36.9; O2SAT 97
[2024-10-25 07:32] LABS: Eosinophils % 2 % (0-3); Lymphocytes % 51 % (10-50); Monocytes % 3 % (2-9); Neutrophils % 44 % (42-76); Total Cells Counted 100
--- NOTE | 2024-10-25 07:32 | HMH.PHAINT1 ---
Pharmacy Intervention Comments: HOME MEDICATION LIST VERIFIED USING LIST FROM OUTPATIENT PHARMACY
[2024-10-25 07:33] LABS: Platelet Estimate Normal; RBC Morphology Normal
[2024-10-25 07:45] LABS: Hemoglobin 7.7 g/dL (12.2-16.2)
[2024-10-25] MEDS: LEVOTHYROXINE 88MCG (0.088MG) TAB 88 MCG PO (08:21)
[2024-10-25] MEDS: NIFEdipine XL 30MG TABLET 90 MG PO (08:22)
[2024-10-25] MEDS: ENOXAPARIN 30MG/0.3ML SYRINGE 30 MG SUBCUT (08:22)
[2024-10-25] MEDS: FOLIC ACID 1MG TABLET 1 MG PO (08:22)
[2024-10-25] MEDS: VITAMIN B-12 1,000 MCG 1ML VIAL 1000 MCG IM (08:22)
[2024-10-25] MEDS: INSULIN GLARGINE 100 UNITS/ML 3ML FLEXPEN 22 UNIT SUBCUT (08:23)
[2024-10-25] MEDS: NYSTATIN TOPICAL POWDER 30GM TP ×2 (08:23→13:18)
[2024-10-25 08:29] LABS: Adenovirus F 40/41, stool Not Detected (NotDetected); Astrovirus Not Detected (NotDetected); Campylobacter Not Detected (NotDetected); Clostridium Difficile A/B, PCR Not Detected (NotDetected); Cryptosporidium Not Detected (NotDetected); Cyclospora Cayetanesis Not Detected (NotDetected); Entamoeba histolytica Not Detected (NotDetected); Enteroaggregative E coli Not Detected (NotDetected); Enteropathogenic E coli Not Detected (NotDetected); Enterotoxigenic E coli Not Detected (NotDetected); Giardia lamblia Not Detected (NotDetected); Norovirus Not Detected (NotDetected); Plesimonas Shigalloides, PCR Not Detected (NotDetected); Rotavirus A Not Detected (NotDetected); Salmonella, PCR Not Detected (NotDetected); Sapovirus Not Detected (NotDetected); Shiga-like toxin E coli Not Detected (NotDetected); Shigella Enterovasive E coli Not Detected (NotDetected); Vibrio Cholerae Not Detected (NotDetected); Vibrio, PCR Not Detected (NotDetected); Yersinia Entercolitica, PCR Not Detected (NotDetected)
[2024-10-25] MEDS: VANCOMYCIN HCL 50MG/ML 150ML KIT 125 MG PO (08:29)
[2024-10-25 08:49] LABS: POC Glucose,Bedside 129 (70-110)
--- NOTE | 2024-10-25 09:34 | CA_ITS ---
FINAL REPORT CLINICAL HISTORY: WOUNDS BILATERAL HEELS,DM,HTN,HLD,EDEMA, FINDINGS: Right lower extremity, flow velocities (cm per second): Common femoral artery: 91 Proximal SFA: 140 Distal SFA: 82 Popliteal: 135 Anterior tibial artery: 59 Posterior tibial artery: 77 Peroneal: 82 There are triphasic and biphasic waveforms in the common femoral, proximal, and mid femoral arteries. There are monophasic waveforms in the popliteal and tibial vessels. Left lower extremity, flow velocities (cm per second): Common femoral artery: 110 Proximal SFA: 108 Distal SFA: 181 Popliteal: 136 Anterior tibial artery: 76 Posterior tibial artery: No flow visualized Peroneal: 148 Waveforms are monophasic throughout the left lower extremity with no flow visualized in the posterior tibial artery. 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 Monophasic waveforms from the common femoral artery throughout the tibial vessels concerning for a significant inflow lesion. CT angiogram could better characterize these findings. Reviewed, Interpreted and Dictated by Richy Reddy MD Transcribed by Lesa Harper Authenticated and [facility]
--- NOTE | 2024-10-25 09:41 | XR_ITS ---
FINAL REPORT CLINICAL HISTORY: Heel DFU COMPARISON: 10/14/2023 FINDINGS: RIGHT FOOT 3 views of the right foot were obtained. A dressing/bandage is present on the posterior calcaneus. There is no acute osseous abnormality. No evidence of bony erosion. Visualized joint spaces are normally aligned. Soft tissues are unremarkable. No radiopaque foreign body identified. IMPRESSION: No acute bony abnormality. Reviewed, Interpreted and Dictated by Richy Reddy MD Transcribed by Alba Huggins Authenticated and [facility]
--- NOTE | 2024-10-25 09:41 | XR_ITS ---
FINAL REPORT CLINICAL HISTORY: Heel DFU COMPARISON: none FINDINGS: LEFT FOOT Three views of the left foot demonstrate no acute osseous abnormality. No evidence of bony erosion. The visualized joint spaces are normally aligned. The soft tissues are unremarkable. No radiopaque foreign body identified. IMPRESSION: No acute bony abnormality. Reviewed, Interpreted and Dictated by Richy Reddy MD Transcribed by Alba Huggins Authenticated and [facility]
--- NOTE | 2024-10-25 10:33 | HMH.PTEV ---
Physical Therapy Evaluation Rehab PT IP Evaluation Start: 10/24/24 20:22 Freq: ONCE Status: Active Protocol: Document 10/25/24 09:30 EAMON (Rec: 10/25/24 10:33 PHOJANE [id number]) Subjective/History History History Ms. Rivas 73-year-old female with history of stage IV chronic kidney disease, poorly controlled diabetes, hyperlipidemia, bradycardia, syncope, neuropathy, osteopenia, CLL, and hypertension who presents after having an unexpected episode of diarrhea and soiling herself accompanied by abdominal pain. States she has been on antibiotics for over a month since discharge from nursing facility due to wounds on her heels. Pt currently lives with her daughter and son-in-law who help her with some ADLs. Pt uses a walker to ambulate in the house, which has 2 steps to enter. Subjective Subjective Pt presents resting supine in bed. She says that she was feeling very comfortable but is willing to ambulate with PT this am. She does not c/o pain at this time. Pt returned to supine in bed with pressure off of heels and call light in reach. [facility] How much help from another person do you currently need... Turning from your back to your side None while in a flat bed without using bedrails? Moving from lying on back to sitting on None the side of a flat bed without using bedrails? Moving to and from a bed to a chair ( None including a wheelchair)? Standing up from a chair using your arms A little ? (e.g., wheelchair, bedside chair) Walking in hospital room? A little Climbing 3-5 steps with a railing? A little Mobility Score 21 Mobility Level [facility] Mobility Calculator Mobility 6 Walk 10 steps or more Rehab PT IP Eval Objective Appearance Patient Behavior Appropriate,Cooperative Patient Orientation Person,Place Difficulty following instructions none Speech Pattern Clear,Appropriate Ambulation Patient Able to Ambulate Yes Ambulation Observation IP General Gait Pattern Observation Wide Based Gait,Hips Posterior to CORBY Ambulation Distance (feet) 25 Ambulation Assistive Device Rolling Walker Ambulation Ability Contact Guard/Hand Hold Balance Ability to Arise Able, uses arms to help Sitting Balance Steady, safe Standing Balance Steady, wide stance Dynamic Sitting Balance Ability Normal Dynamic Standing Balance Ability Normal Transfers Bed Transfer Ability Supervision/Stand by Sit to Stand Bed Transfer Ability Contact Guard/Hand Hold Rehab PT IP prob,goals,plan Problems Date of Evaluation: 10/25/24 PT IP Problems Bed Mobility,Transfers,Gait, Balance,Safety Rehab Potential Rehab Potential Good Equipment Needs Assistive Devices Rolling / Wheeled Walker Plan PT Intervention Plan Bed Mobility,Transfers,Gait, Balance,Safety,Therapeutic Exercise PT Plan Frequency Daily Duration LOS Discharge Goals Bed Transfer Ability Independent Sit to Stand Chair Transfer Ability Supervision/Stand by Ambulation Assistive Device Rolling Walker Ambulation Distance (feet) 50 Discharge Plan PT Discharge Plan Pt is currently most appropriate to return home with family assistance once medically stable for d/c as pt appears near stated baseline with all mobility. Skilled acute therapy is currently indicated to improve LE strength and endurance to return to PLOF with all mobility, decrease skin breakdown, and decrease caregiver burden. Home health therapy is recommended to further improve strength and endurance to increase independence with ambulation and ADLs. Eval Complexity Eval Charge Codes 94951 - High Complexity PHYSICIAN CERTIFICATION: I certify the specified therapy services for Michelle Rivas are required, authorized, and reviewed every 30 days.
--- NOTE | 2024-10-25 10:56 | SW/DCPLANNER ---
Spoke with patient about home health services once patient is medically stable for discharge and patient stated that she is currently with [facility] home health. Emily Devine
--- NOTE | 2024-10-25 10:58 | [facility]H.PTWOUND ---
Rehab Inpt Wound Evaluation Rehab IP Wound Evaluation Start: 10/24/24 21:09 Freq: ONCE Status: Active Protocol: Document 10/25/24 09:35 PHOJANE (Rec: 10/25/24 10:58 PHORNE [id number]) Rehab PT Wound Assessment Subjective Subjective Ms. Rivas 73-year-old female with history of stage IV chronic kidney disease, poorly controlled diabetes, hyperlipidemia, bradycardia, syncope, neuropathy, osteopenia, CLL, and hypertension who presents after having an unexpected episode of diarrhea and soiling herself accompanied by abdominal pain. States she has been on antibiotics for over a month since discharge from nursing facility due to wounds on her heels. Pt currently lives with her daughter and son-in-law who help her with some ADLs. Pt uses a walker to ambulate in the house, which has 2 steps to enter. Wound Left Heel Wound Type Pressure Ulcer Is This a Chronic Wound Yes Wound Staging Stage II Query Text:Stage I - Unbroken, red skin, no blanching. Stage II - Skin broken, superficial skin loss involving epidermis alone or also dermis. Partial loss of skin layers. Stage III - Pressure area involves epidermis, dermis and subcutaneous tissue, full thickness skin loss. Stage IV - Pressure area involves epidermis, subcutaneous tissue, bone and other supportive tissue. Full thickness skin loss with extensive destruction of underlying tissue and structures. Wound Length (cm) 1.8 Wound Width (cm) 2.5 Wound Depth (cm) 0.1 Wound Bed Appearance [place] Wound Margins Description Well Defined Surrounding Tissue Appearance [place] Wound Drainage Description Yellow Drainage Amount Scant Dressing Status Changed Primary Dressing Composite Comment bordered foam Dressing Change Patient Tolerance Tolerated Well Right Heel Wound Type Pressure Ulcer Is This a Chronic Wound Yes Wound Staging Stage II Query Text:Stage I - Unbroken, red skin, no blanching. Stage II - Skin broken, superficial skin loss involving epidermis alone or also dermis. Partial loss of skin layers. Stage III - Pressure area involves epidermis, dermis and subcutaneous tissue, full thickness skin loss. Stage IV - Pressure area involves epidermis, subcutaneous tissue, bone and other supportive tissue. Full thickness skin loss with extensive destruction of underlying tissue and structures. Wound Length (cm) 1.4 Wound Width (cm) 1.1 Wound Depth (cm) 0.1 Wound Bed Appearance [place] Wound Margins Description Well Defined Surrounding Tissue Appearance [place] Wound Drainage Description Serous Drainage Amount Scant Primary Dressing Composite Comment bordered foam Dressing Change Patient Tolerance Tolerated Well Plan/Recommendation Comment Nursing staff currently dressing wound appropriately. Wound care with sharp debridement is not currently indicated at this time. Continue with dressing as appropriate [place] [facility] [place] Eval Complexity Eval Charge Codes 82286 - High Complexity [place] Wound Assessment Tool Assessment Wound size 2=Length x Width 4--<16 sq cm Wound depth 2=Partial thickness skin loss involving epidermis &/or dermis Wound edges 2=Distinct, outline clearly visible, attached, even with wound base Wound undermining 1=None present Necrotic tissue type 1=Non visible Necrotic tissue amount 1=None visible Exudate type 4=Serous: thin, watery, clear Exudate amount 2=Scant, wound moist but no observable exudate Skin color surrounding wound 1=[place] or normal for ethnic group Peripheral tissue edema 1=No swelling or edema Peripheral tissue induration 1=None present Granulation tissue 1=Skin intact or partial thickness wound Epithelialization 5= < 25% wound covered Wound assessment total score 24 PHYSICIAN CERTIFICATION: I certify the specified therapy services for Michelle Rivas are required, authorized, and reviewed every 30 days.
[2024-10-25 11:33] LABS: POC Glucose,Bedside 130 (70-110)
--- NOTE | 2024-10-25 12:43 | EXP.POD.CONS ---
History of Present Illness *Admission Date: 10/24/24 *Reason for visit:: Patient was admitted for management of her diarrhea and RANDY. *History of present illness: Ms. Rivas 73-year-old female with history of stage IV chronic kidney disease, poorly controlled diabetes, hyperlipidemia, bradycardia, syncope, neuropathy, osteopenia, CLL, and hypertension who presents after having an unexpected episode of diarrhea and soiling herself accompanied by abdominal pain. States she has been on antibiotics for over a month since discharge from nursing facility due to wounds on her heels. Was admitted in July for UTI and profound weakness. Discharged to [facility] for 2 weeks. Since being home, developed wounds on her heels while in the hospital and nursing care. Her PCP has put her on antibiotics continuously for over the past month. She denies any nausea or vomiting. States she feels chilled but denies any sydnee fever. No dysuria. Episode of stool occurred without her knowledge, she said she soiled herself and is just not felt well today. Reports improved swelling in her legs though still quite swollen on exam today. Stable on room air. Workup in the ER concerning for persistently elevated white count consistent with her CLL. Worsening kidney function with creatinine 3.9, BUN stable. Potassium 4.7. Glucose elevated. Her diabetes is chronically poorly controlled. Medicine consulted for admission and management of her diarrhea and RANDY. On arrival to the floor, she is more comfortable after receiving multiple blankets. Has some intertriginous irritation of skin consistent with yeast infection. Stable on room air. Alert and oriented x 3. 10/25/24: Ms. Rivas is a patient of podiatry last saw once and it was in September of 2023. Today we were consulted for b/l heel diabetic wounds that has been present for 1 month, She had a polymem in place today, no drainage noted from either site, They appear to be superficial. Nails were long, so will trim them today. [facility] Disclaimer: The information contained in this section may have been updated after the patient was seen, as this information can be updated by other users. Medical History (Updated 10/25/24 @ 13:20 by Annemarie Henson APRN) Callus of foot Edema Hypervolemia Leukocytosis UTI (urinary tract infection) Urinary tract infectious disease Sepsis without septic shock Noncompliance Acute kidney injury superimposed on chronic kidney disease Diabetic foot ulcer Sinusitis Hyperkalemia Urinary tract infection Hyperkalemia High anion gap metabolic acidosis Renal failure Falls frequently Viral URI with cough Skin infection, bacterial Avulsed toenail Ulcer of right great toe due to diabetes mellitus Frequent falls Statin intolerance Hyperlipidemia Bradycardia Syncope and collapse Syncope Falls Neuropathy Osteopenia Onychodystrophy Pain of toe of right foot Fracture of second toe, right, closed Edema of toe Acquired hammer toe Closed rib fracture Fall Hyperglycemia due to type 2 diabetes mellitus Bacteremia due to Klebsiella pneumoniae UTI due to Klebsiella species Gram-negative bacteremia DKA (diabetic ketoacidoses) Hyperglycemia due to type 2 diabetes mellitus CLL (chronic lymphocytic leukemia) History of hypertension Diabetes mellitus Surgical History H/O lithotripsy History of cholecystectomy Family History Other Cancer Congestive heart failure (CHF) Heart disease Lymphoma Social History Smoking Status: Never smoker alcohol intake: never substance use type: denies use current occupational status: retired Travel in the last 8 weeks: None household members: none housing: house caffeine: Yes Meds Home Medications and Allergies Home Medications ?Medication ?Instructions ?Recorded ?Confirmed ?Type insulin lispro 100 unit/mL 0 - 14 unit (0 - 0.14 mL) SQ 12/14/22 10/24/24 Rx subcutaneous pen (Humalog KwikPen TIDWMEAL Diabetes #10 mL (U-100) Insulin) levothyroxine 88 mcg tablet 88 mcg PO DAILY 07/26/24 10/24/24 History gabapentin 400 mg capsule 400 mg PO TID #90 caps 10/14/24 10/24/24 Rx clonazepam 0.5 mg tablet 0.5 mg PO BID PRN anxiety #60 tabs 10/18/24 10/24/24 Rx hydralazine 50 mg tablet 50 mg PO TID #90 tabs 10/20/24 10/24/24 Rx nifedipine 90 mg tablet,extended 90 mg PO DAILY #30 tabs 10/20/24 10/24/24 Rx release hydrocodone 5 mg-acetaminophen 325 1 tab PO Q8H PRN Moderate Pain 10/22/24 10/24/24 Rx mg tablet (Scale Score 5-6) #90 tabs bumetanide 1 mg tablet 2 mg (2 x 1 mg) PO BID 30 days #0 10/25/24 10/25/24 Rx tabs insulin glargine 100 unit/mL (3 22 unit (0.22 mL) SQ BID Diabetes 10/25/24 10/24/24 Rx mL) subcutaneous pen (Lantus #10 mL Solostar U-100 Insulin) spironolactone 50 mg tablet 50 mg PO DAILY 10/25/24 10/25/24 History New Prescriptions to Start Prescriptions: Allergies Allergy/AdvReac Type Severity Reaction Status Date / Time moxifloxacin Allergy Severe S-ANAPHYLAX Verified 10/20/24 11:30 IS Sulfa (Sulfonamide Allergy Mild NA-NAUSEA/V Verified 10/20/24 11:30 Antibiotics) OMITING Exam (Inpt) Vital signs and Labs for Last 24 Hours: Temp Pulse Resp BP Pulse Ox O2 Del Method 98.4 F 63 16 144/73 H 97 Room Air 10/25/24 07:22 10/25/24 07:22 10/25/24 07:22 10/25/24 07:22 10/25/24 07:22 10/25/24 11:00 Laboratory Results - last 24 hr 10/24/24 08:20: Stl Aeromonas (PCR) Not detected, Stl C. cayetanensis PCR Not detected, Stool Rotavirus (PCR) Not detected, Stl Adenov F 40/41 PCR Not detected, Stool Astrovirus (PCR) Not detected, Stool Campylobacter PCR Not detected, Stl C.difficile Tox PCR Not detected, Stool Cryptosporidium PCR Not detected, Stl E.coli Shiga Tox PCR Not detected, Stool E coli O157 PCR Not detected, Stl Enterotoxigenic E PCR Not detected, Stool EPEC (PCR) Not detected, Stool EAEC (PCR) Not detected, Stl E. histolytica PCR Not detected, Stool Giardia Lamblia PCR Not detected, Stool Salmonella PCR Not detected, Stool Sapovirus (PCR) Not detected, Stl P. shigelloides PCR Not detected, Stl Shigella/EIEC PCR Not detected, St Y.enterocolitica PCR Not detected, Stool Vibrio (PCR) Not detected, Stl Vibrio cholerae PCR Not detected, Stl Norovirus GI/GII PCR Not detected 10/24/24 16:45: WBC 16.5 H, RBC 3.32 L, Hgb 9.5 L, Hct 29.0 L, MCV 87.3, MCH 28.6, MCHC 32.8, RDW 14.3, Plt Count 242, MPV 10.5 H, Neut % (Auto) 47.9, Lymph % (Auto) 46.5, [place] % (Auto) 3.3, Eos % (Auto) 1.6, Baso % (Auto) 0.3, Neut # (Auto) 7.9 H, Lymph # (Auto) 7.7 H, [place] # (Auto) 0.6, Eos # (Auto) 0.3, Baso # (Auto) 0.1, Total Counted 100, Neutrophils % (Manual) 49, Lymphocytes % (Manual) 46, Monocytes % (Manual) 2, Eosinophils % (Manual) 2, Blast Cells % 1.0, Platelet Estimate Normal, RBC Morphology Normal, Sodium 137, Potassium 4.7, Chloride 107, Carbon Dioxide 19 L, Anion Gap 15.7 H, BUN 53 H, Creatinine 3.90 H, Estimated Creat Clear 18, Estimated GFR 11 L*, Est GFR ( Amer) 14 L*, Glucose 275 H, Hemoglobin A1c 10.0 H D, Calcium 8.2 L, Total Bilirubin 0.2, AST 22, ALT 18, Alkaline Phosphatase 113, Total Protein 6.5, Albumin 3.5, Globulin 3.0, Albumin/Globulin Ratio 1.2, Lipase 82, HCV Ab CARO w/Rflx PCR Qn Negative, HIV Ag/Ab Combo Qual Negative 10/24/24 18:18: Urine Color Yellow, Urine Appearance Clear, Urine pH 5.5, Ur Specific [place] 1.024, Urine Protein 3+ A, Urine Glucose (UA) 2+, Urine Ketones Negative, Urine Blood 1+ A, Urine Nitrate Negative, Urine Bilirubin Negative, Urine Urobilinogen 0.2, Ur Leukocyte Esterase Negative, Urine RBC 3-5, Urine WBC Occasional, Ur Squamous Epith Cells 5-10, Ur Transition Epith Cell Occ, Urine Bacteria 2+, Fine Granular Casts Occasional, Coarse Granular Casts 3-5 10/24/24 19:09: VBG pH 7.30 L, VBG pCO2 37.7, VBG pO2 51.6 H, VBG HCO3 18.2 L, VBG Total CO2 19.4 L, VBG O2 Saturation 84.6 H, VBG Base Excess -8.2 L, VBG Lactic Acid 1.9 10/24/24 20:23: POC Glucose 227 H 10/25/24 05:23: POC Glucose 154 H 10/25/24 05:49: WBC 11.0 H D, RBC 2.75 L, Hgb 7.7 L D, Hct 23.7 L, MCV 86.2, MCH 28.0, MCHC 32.5, RDW 14.4, Plt Count 194, MPV 10.5 H, Neut % (Auto) 44.6, Lymph % (Auto) 47.1, [place] % (Auto) 4.5, Eos % (Auto) 3.1, Baso % (Auto) 0.3, Neut # (Auto) 4.9, Lymph # (Auto) 5.2 H, [place] # (Auto) 0.5, Eos # (Auto) 0.3, Baso # (Auto) 0.0, Total Counted 100, Neutrophils % (Manual) 44, Lymphocytes % (Manual) 51 H, Monocytes % (Manual) 3, Eosinophils % (Manual) 2, Platelet Estimate Normal, RBC Morphology Normal, Sodium 137, Potassium 4.0, Chloride 111 H, Carbon Dioxide 23, Anion Gap 7.0, BUN 55 H, Creatinine 3.40 H, Estimated Creat Clear 20, Estimated GFR 13 L*, Est GFR ( Amer) 16 L*, Glucose 138 H D, Uric Acid 8.4 H, Calcium 7.6 L, Phosphorus 4.9 H, Magnesium 1.6, Total Bilirubin 0.1 L, AST 19, ALT 11 L D, Alkaline Phosphatase 87, Total Protein 5.2 L, Albumin 2.5 L D, Globulin 2.7, Albumin/Globulin Ratio 0.9 L 10/25/24 08:20: POC Glucose 129 H 10/25/24 11:25: POC Glucose 130 H I & O for Labs for Last 24 Hours: Intake & Output 10/22/24 10/23/24 10/24/24 10/25/24 23:59 23:59 23:59 23:59 Intake Total 1534 / 1534 Output Total 400 / 400 Balance 1134 / 1134 Weight 198 lb 1.6 oz 198 lb 4.8 oz Constitutional: Present no acute distress and cooperative Head: Present normocephalic Eye: Present as per HPI Neck: Present trachea midline Cardiac: Present pedal pulses present Comments:: deferred Rectal (female): Present deferred (female): Present deferred Extremities: Present normal capillary refill and edema Comment:: 1+ B/L lower extremity and pedal edema. DP/PT pulses noted, but were difficult to palpate secondary to her edema. Skin: Present erythema, warm, lesions (right sub 1st callus no underlying ulcer. ) and wounds Comment:: Skin warm and dry, wounds to b/l heels, nail long and subungual debris (keratosis) noted under nails. -Nails trimmed x 9; Right 5th nail was already off prior to trimming no SOI. Right 4th toe bruising noted. -Right medial sub 1st callus debrided with a 15' blade sharply, excisionally through skin only, no bleeding and no underlying ulcer noted. -Right DFU cleaned and wound Debrided with a 15' blade sharply, excisionally through skin into the subcu layer. Fibrotic tissue was removed. Good bleeding was noted. Granular base was noted. Post debridement the wound measured 1.6 x 1.4 x 0.1 cm. -Left DFU cleaned and wound Debrided with a 15' blade sharply, excisionally through skin into the subcu layer. Fibrotic tissue was removed. Good bleeding was noted. Granular base was noted. Post debridement the wound measured 1.7 x 2.1 x 0.1 cm. -Sites dressed with betadine soaked gauze, dry 4x4, kerlix and grge wrap. Neuro: Present Sensory Function Intact, awake, tone normal and moves all extremities Ankle: bilateral: swelling (1+ bl lower extremities edema ) Feet/Toes: bilateral: hammer toe (reducible ), bilateral: nail abnormalities (thick, subungual debris under nails.), bilateral: swelling (1+ pedal and ankle edema, tender ) and bilateral: tenderness Feet Bottom: 1. Right Heel DFU- 1.6x1.4x0.1cm 2. Left Heel DFU- 1.7x2.1x0.1cm Inspection: Present foot deformity deformity: Present hammer toes, nail disorder, calluses/corns and ulceration (b/l heels DFU ) Pulses: L dorsalis pedis pulse: diminished (Present but decreased r/t edema), R dorsalis pedis pulse: diminished, L posterior tibial pulse: diminished and R posterior tibial pulse: diminished CFT: normal: CFT Results Labs 10/25/24 05:49 10/25/24 05:49 Labs: Abnormal lab results 10/24/24 10/24/24 10/24/24 Range/Units 16:45 18:18 19:09 WBC 16.5 H (4.8-10.8) K/mm3 RBC 3.32 L (4.20-5.40) M/mm3 Hgb 9.5 L (12.2-16.2) g/dL Hct 29.0 L (37.0-47.0) % MPV 10.5 H (7.4-10.4) fl Neut # (Auto) 7.9 H (1.8-7.8) K/mm3 Lymph # (Auto) 7.7 H (0.7-4.5) K/mm3 Lymphocytes % (Manual) (10-50) % VBG pH 7.30 L (7.31-7.41) mmol/L VBG pO2 51.6 H (28-40) mmol/L VBG HCO3 18.2 L (23-30) mmol/L VBG Total CO2 19.4 L (23-27) mmol/L VBG O2 Saturation 84.6 H (50-70) % VBG Base Excess -8.2 L (-2.4-2.3) mmol/L Chloride (98-107) mmol/L Carbon Dioxide 19 L (22.0-30.0) mmol/L Anion Gap 15.7 H (5-15) mEq/L BUN 53 H (7-17) mg/dl Creatinine 3.90 H (0.52-1.04) mg/dl Estimated GFR 11 L* (>60) ml/min Est GFR ( Amer) 14 L* (>60) ML/MIN Glucose 275 H (74-100) mg/dl POC Glucose (70-110) Hemoglobin A1c 10.0 H D (4.0-6.0) % Uric Acid (2.5-6.2) mg/dl Calcium 8.2 L (8.4-10.2) mg/dl Phosphorus (2.5-4.5) mg/dl Total Bilirubin (0.2-1.3) mg/dl ALT (12-78) U/L Total Protein (6.3-8.2) g/dl Albumin (3.5-5.0) g/dl Albumin/Globulin Ratio (1.1-1.8) Urine Protein 3+ A (Negative) Urine Blood 1+ A (Negative) 10/24/24 10/25/24 10/25/24 Range/Units 20:23 05:23 05:49 WBC 11.0 H D (4.8-10.8) K/mm3 RBC 2.75 L (4.20-5.40) M/mm3 Hgb 7.7 L D (12.2-16.2) g/dL Hct 23.7 L (37.0-47.0) % MPV 10.5 H (7.4-10.4) fl Neut # (Auto) (1.8-7.8) K/mm3 Lymph # (Auto) 5.2 H (0.7-4.5) K/mm3 Lymphocytes % (Manual) 51 H (10-50) % VBG pH (7.31-7.41) mmol/L VBG pO2 (28-40) mmol/L VBG HCO3 (23-30) mmol/L VBG Total CO2 (23-27) mmol/L VBG O2 Saturation (50-70) % VBG Base Excess (-2.4-2.3) mmol/L Chloride 111 H (98-107) mmol/L Carbon Dioxide (22.0-30.0) mmol/L Anion Gap (5-15) mEq/L BUN 55 H (7-17) mg/dl Creatinine 3.40 H (0.52-1.04) mg/dl Estimated GFR 13 L* (>60) ml/min Est GFR ( Amer) 16 L* (>60) ML/MIN Glucose 138 H D (74-100) mg/dl POC Glucose 227 H 154 H (70-110) Hemoglobin A1c (4.0-6.0) % Uric Acid 8.4 H (2.5-6.2) mg/dl Calcium 7.6 L (8.4-10.2) mg/dl Phosphorus 4.9 H (2.5-4.5) mg/dl Total Bilirubin 0.1 L (0.2-1.3) mg/dl ALT 11 L D (12-78) U/L Total Protein 5.2 L (6.3-8.2) g/dl Albumin 2.5 L D (3.5-5.0) g/dl Albumin/Globulin Ratio 0.9 L (1.1-1.8) Urine Protein (Negative) Urine Blood (Negative) 10/25/24 10/25/24 Range/Units 08:20 11:25 WBC (4.8-10.8) K/mm3 RBC (4.20-5.40) M/mm3 Hgb (12.2-16.2) g/dL Hct (37.0-47.0) % MPV (7.4-10.4) fl Neut # (Auto) (1.8-7.8) K/mm3 Lymph # (Auto) (0.7-4.5) K/mm3 Lymphocytes % (Manual) (10-50) % VBG pH (7.31-7.41) mmol/L VBG pO2 (28-40) mmol/L VBG HCO3 (23-30) mmol/L VBG Total CO2 (23-27) mmol/L VBG O2 Saturation (50-70) % VBG Base Excess (-2.4-2.3) mmol/L Chloride (98-107) mmol/L Carbon Dioxide (22.0-30.0) mmol/L Anion Gap (5-15) mEq/L BUN (7-17) mg/dl Creatinine (0.52-1.04) mg/dl Estimated GFR (>60) ml/min Est GFR ( Amer) (>60) ML/MIN Glucose (74-100) mg/dl POC Glucose 129 H 130 H (70-110) Hemoglobin A1c (4.0-6.0) % Uric Acid (2.5-6.2) mg/dl Calcium (8.4-10.2) mg/dl Phosphorus (2.5-4.5) mg/dl Total Bilirubin (0.2-1.3) mg/dl ALT (12-78) U/L Total Protein (6.3-8.2) g/dl Albumin (3.5-5.0) g/dl Albumin/Globulin Ratio (1.1-1.8) Urine Protein (Negative) Urine Blood (Negative) H & H 10/24/24 10/25/24 Range/Units 16:45 05:49 Hgb 9.5 L 7.7 L D (12.2-16.2) g/dL Hct 29.0 L 23.7 L (37.0-47.0) % All other labs normal. Assessment and Plan *Assessment and plan (1) 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 Qualifiers: Diabetes mellitus bed bug exterminator insulin use: with bed bug exterminator use Qualified Code(s): E11.42 - Type 2 diabetes mellitus with diabetic polyneuropathy; Z79.4 - termite exterminator (current) use of insulin Category: Medical Code(s): E11.42 - Type 2 diabetes mellitus with diabetic polyneuropathy (2) Diabetes: Status: Acute Qualifiers: Diabetes mellitus complication detail: with polyneuropathy Diabetes mellitus complication status: with neurologic complications Diabetes mellitus bed bug exterminator insulin use: with halfway use Diabetes mellitus type: type 2 Qualified Code(s): E11.42 - Type 2 diabetes mellitus with diabetic polyneuropathy; Z79.4 - termite exterminator (current) use of insulin Category: Medical Code(s): E11.9 - Type 2 diabetes mellitus without complications (3) Dystrophia unguium: Status: Acute Category: Medical Code(s): L60.3 - Nail dystrophy (4) Hammertoe: Status: Acute Qualifiers: Laterality: bilateral Qualified Code(s): M20.41 - Other hammer toe(s) (acquired), right foot; M20.42 - Other hammer toe(s) (acquired), left foot Category: Medical Code(s): M20.40 - Other hammer toe(s) (acquired), unspecified foot (5) Diabetic ulcer of left heel associated with diabetes mellitus due to underlying condition, limited to breakdown of skin: Status: Acute Category: Medical Code(s): E08.621 - Diabetes mellitus due to underlying condition with foot ulcer; L97.421 - Non-pressure chronic ulcer of left heel and midfoot limited to breakdown of skin (6) Diabetic ulcer of right heel associated with diabetes mellitus due to underlying condition, limited to breakdown of skin: Status: Acute Category: Medical Code(s): E08.621 - Diabetes mellitus due to underlying condition with foot ulcer; L97.411 - Non-pressure chronic ulcer of right heel and midfoot limited to breakdown of skin (7) Keratosis: Status: Acute Category: Medical Code(s): L57.0 - Actinic keratosis (8) Acute kidney injury: Status: Acute Category: Medical Code(s): N17.9 - Acute kidney failure, unspecified Plan 10/25/24: Reviewed Xrays 10/25/2024, left foot 3 views, demonstrate no acute osseous abnormality. No evidence of bony erosion. The visualized joint spaces are normally aligned. The soft tissues are unremarkable. No radiopaque foreign body identified. IMPRESSION: No acute bony abnormality. Reviewed, Interpreted and Dictated by Richy Reddy MD Transcribed by Alba Huggins Xrays 10/25/2024,Right foot 3 views, FINDINGS: RIGHT FOOT 3 views of the right foot were obtained. A dressing/bandage is present on the posterior calcaneus. There is no acute osseous abnormality. No evidence of bony erosion. Visualized joint spaces are normally aligned. Soft tissues are unremarkable. No radiopaque foreign body identified. IMPRESSION: No acute bony abnormality. Reviewed, Interpreted and Dictated by Richy Reddy MD Transcribed by Alba Huggins B/L heel DFU's: -Heels have b/l superficial wounds on them, no drainage noted, dry callused skin surrounding wound borders, Right heel has a dark eschar scab centrally, crosshatched, granular surrounding tissue. -See above for measurements. -Daily dressing changes: may use silver, betadine soaked gauze, kerlix and greg wrap -Keep heels offloaded on pillow while in bed or in chair -Nails trimmed x 9; right 5th nail previously self avulsed off -Callus to her Right medial sub-1st debrided; no underlying ulcer. -Follow up with Home Healthcare for dressing changes ([facility]) she thinks. -Patient will need b/l post op shoes to offload heel ulcers. -No Plans for any surgical procedures per podiatry wounds are stable. -Patient to follow-up with podiatry in 1 week - All orders per Dr. Jerez
--- NOTE | 2024-10-25 13:52 | EXP.DC.SUM ---
General Admission date:: 10/24/24 HPI HPI HPI: Ms. Rivas 73-year-old female with history of stage IV chronic kidney disease, poorly controlled diabetes, hyperlipidemia, bradycardia, syncope, neuropathy, osteopenia, CLL, and hypertension who presents after having an unexpected episode of diarrhea and soiling herself accompanied by abdominal pain. States she has been on antibiotics for over a month since discharge from nursing facility due to wounds on her heels. Was admitted in July for UTI and profound weakness. Discharged to [facility] for 2 weeks. Since being home, developed wounds on her heels while in the hospital and nursing care. Her PCP has put her on antibiotics continuously for over the past month. She denies any nausea or vomiting. States she feels chilled but denies any sydnee fever. No dysuria. Episode of stool occurred without her knowledge, she said she soiled herself and is just not felt well today. Reports improved swelling in her legs though still quite swollen on exam today. Stable on room air. Workup in the ER concerning for persistently elevated white count consistent with her CLL. Worsening kidney function with creatinine 3.9, BUN stable. Potassium 4.7. Glucose elevated. Her diabetes is chronically poorly controlled. Medicine consulted for admission and management of her diarrhea and RANDY. On arrival to the floor, she is more comfortable after receiving multiple blankets. Has some intertriginous irritation of skin consistent with yeast infection. Stable on room air. Alert and oriented x 3. 10/25/24: Ms. Rivas is a patient of podiatry last saw once and it was in September of 2023. Today we were consulted for b/l heel diabetic wounds that has been present for 1 month, She had a polymem in place today, no drainage noted from either site, They appear to be superficial. Nails were long, so will trim them today. Hospital Course Hospital Course Hospital Course: 73-year-old female multiple comorbidities including CLL and uncontrolled diabetes. Presented with episode of diarrhea. Has been on prolonged antibiotics. Found to have RANDY. Discussed case with ER physician, request admission for further management of her RANDY on CKD and workup of her diarrhea. I agreed to admit for further care. Hemodynamically stable on arrival to the floor. Problems addressed as follows: Acute renal failure CKD 4 - Renal function improved with gentle fluid rehydration, holding home Bumex. Improvement of creatinine 3.4, GFR 13. Diarrhea: Prolonged antibiotics over the past month. Concern for onset of diarrhea and abdominal pain. Initially started on empiric vancomycin due to concomitant CLL. However stool PCR negative for C. difficile. Will discontinue antibiotics. Diabetes Diabetic foot ulcers - History of diabetes, last A1c of 12 in June. Repeat A1c 10. Increase Lantus to 22 units twice daily. Continue high intensity sliding scale insulin with fingersticks ACHS -Nursing and provider to assist with diabetes teaching during admission. Patient already having endorgan damage, gets injections in her eyes. Has cortical thinning of her kidneys. Has significant neuropathy in her extremities. ? Has been on antibiotics for suspected diabetic foot ulcers for the past month. Podiatry consulted, did bedside debridement. Will follow-up with podiatry in 1 to 2 weeks. CLL -Complicates all aspects of her care. Patient relatively manage compromised. Monitor white count daily with CBC ordered for the morning - Previous uric acid level of 10 in June, 8.4 during admission. - No signs of gout at this time Hypothyroid: TSH 2 in July. Continue levothyroxine 88 mcg daily Resume Klonopin for anxiety at dose with 0.5 mg 3 times a day as needed Exam Data for Last 24 hours Vital signs and Labs for Last 24 Hours: Temp Pulse Resp BP Pulse Ox O2 Del Method 98.4 F 63 16 144/73 H 97 Room Air 10/25/24 07:22 10/25/24 07:22 10/25/24 07:22 10/25/24 07:22 10/25/24 07:22 10/25/24 11:00 Laboratory Results - last 24 hr 10/24/24 08:20: Stl Aeromonas (PCR) Not detected, Stl C. cayetanensis PCR Not detected, Stool Rotavirus (PCR) Not detected, Stl Adenov F 40/41 PCR Not detected, Stool Astrovirus (PCR) Not detected, Stool Campylobacter PCR Not detected, Stl C.difficile Tox PCR Not detected, Stool Cryptosporidium PCR Not detected, Stl E.coli Shiga Tox PCR Not detected, Stool E coli O157 PCR Not detected, Stl Enterotoxigenic E PCR Not detected, Stool EPEC (PCR) Not detected, Stool EAEC (PCR) Not detected, Stl E. histolytica PCR Not detected, Stool Giardia Lamblia PCR Not detected, Stool Salmonella PCR Not detected, Stool Sapovirus (PCR) Not detected, Stl P. shigelloides PCR Not detected, Stl Shigella/EIEC PCR Not detected, St Y.enterocolitica PCR Not detected, Stool Vibrio (PCR) Not detected, Stl Vibrio cholerae PCR Not detected, Stl Norovirus GI/GII PCR Not detected 10/24/24 16:45: WBC 16.5 H, RBC 3.32 L, Hgb 9.5 L, Hct 29.0 L, MCV 87.3, MCH 28.6, MCHC 32.8, RDW 14.3, Plt Count 242, MPV 10.5 H, Neut % (Auto) 47.9, Lymph % (Auto) 46.5, [place] % (Auto) 3.3, Eos % (Auto) 1.6, Baso % (Auto) 0.3, Neut # (Auto) 7.9 H, Lymph # (Auto) 7.7 H, [place] # (Auto) 0.6, Eos # (Auto) 0.3, Baso # (Auto) 0.1, Total Counted 100, Neutrophils % (Manual) 49, Lymphocytes % (Manual) 46, Monocytes % (Manual) 2, Eosinophils % (Manual) 2, Blast Cells % 1.0, Platelet Estimate Normal, RBC Morphology Normal, Sodium 137, Potassium 4.7, Chloride 107, Carbon Dioxide 19 L, Anion Gap 15.7 H, BUN 53 H, Creatinine 3.90 H, Estimated Creat Clear 18, Estimated GFR 11 L*, Est GFR ( Amer) 14 L*, Glucose 275 H, Hemoglobin A1c 10.0 H D, Calcium 8.2 L, Total Bilirubin 0.2, AST 22, ALT 18, Alkaline Phosphatase 113, Total Protein 6.5, Albumin 3.5, Globulin 3.0, Albumin/Globulin Ratio 1.2, Lipase 82, HCV Ab CARO w/Rflx PCR Qn Negative, HIV Ag/Ab Combo Qual Negative 10/24/24 18:18: Urine Color Yellow, Urine Appearance Clear, Urine pH 5.5, Ur Specific [place] 1.024, Urine Protein 3+ A, Urine Glucose (UA) 2+, Urine Ketones Negative, Urine Blood 1+ A, Urine Nitrate Negative, Urine Bilirubin Negative, Urine Urobilinogen 0.2, Ur Leukocyte Esterase Negative, Urine RBC 3-5, Urine WBC Occasional, Ur Squamous Epith Cells 5-10, Ur Transition Epith Cell Occ, Urine Bacteria 2+, Fine Granular Casts Occasional, Coarse Granular Casts 3-5 10/24/24 19:09: VBG pH 7.30 L, VBG pCO2 37.7, VBG pO2 51.6 H, VBG HCO3 18.2 L, VBG Total CO2 19.4 L, VBG O2 Saturation 84.6 H, VBG Base Excess -8.2 L, VBG Lactic Acid 1.9 10/24/24 20:23: POC Glucose 227 H 10/25/24 05:23: POC Glucose 154 H 10/25/24 05:49: WBC 11.0 H D, RBC 2.75 L, Hgb 7.7 L D, Hct 23.7 L, MCV 86.2, MCH 28.0, MCHC 32.5, RDW 14.4, Plt Count 194, MPV 10.5 H, Neut % (Auto) 44.6, Lymph % (Auto) 47.1, [place] % (Auto) 4.5, Eos % (Auto) 3.1, Baso % (Auto) 0.3, Neut # (Auto) 4.9, Lymph # (Auto) 5.2 H, [place] # (Auto) 0.5, Eos # (Auto) 0.3, Baso # (Auto) 0.0, Total Counted 100, Neutrophils % (Manual) 44, Lymphocytes % (Manual) 51 H, Monocytes % (Manual) 3, Eosinophils % (Manual) 2, Platelet Estimate Normal, RBC Morphology Normal, Sodium 137, Potassium 4.0, Chloride 111 H, Carbon Dioxide 23, Anion Gap 7.0, BUN 55 H, Creatinine 3.40 H, Estimated Creat Clear 20, Estimated GFR 13 L*, Est GFR ( Amer) 16 L*, Glucose 138 H D, Uric Acid 8.4 H, Calcium 7.6 L, Phosphorus 4.9 H, Magnesium 1.6, Total Bilirubin 0.1 L, AST 19, ALT 11 L D, Alkaline Phosphatase 87, Total Protein 5.2 L, Albumin 2.5 L D, Globulin 2.7, Albumin/Globulin Ratio 0.9 L 10/25/24 08:20: POC Glucose 129 H 10/25/24 11:25: POC Glucose 130 H I & O for Last 24 hours: Intake & Output 10/22/24 10/23/24 10/24/24 10/25/24 23:59 23:59 23:59 23:59 Intake Total 1534 / 1534 Output Total 400 / 400 Balance 1134 / 1134 Weight 89.857 kg 89.947 kg Constitutional Constitutional: no acute distress *Routine HEENT Exam Head: Present normocephalic Eye: Present EOMI and PERRL ENT: Present mucous membranes moist *Routine Neck Exam Neck: Present supple; Absent lymphadenopathy *Routine Respiratory Exam Respiratory: Present CTA bilaterally *Routine Cardiovascular Exam Cardiovascular: Present RRR *Routine Abdominal Exam Abdominal: Present soft and normoactive bowel sounds; Absent tenderness *Routine Extremities Exam Extremities: Present edema; Absent cyanosis or clubbing *Routine Skin Exam Skin: Present warm; Absent rash *Routine Neurological Exam Neurological: Present alert Results Data Completed and Pending Labs on day of discharge: Labs from last 24 hours 10/25/24 10/25/24 10/25/24 11:25 08:20 05:49 WBC 11.0 H D RBC 2.75 L Hgb 7.7 L D Hct 23.7 L MCV 86.2 MCH 28.0 MCHC 32.5 RDW 14.4 Plt Count 194 MPV 10.5 H Neut % (Auto) 44.6 Lymph % (Auto) 47.1 [place] % (Auto) 4.5 Eos % (Auto) 3.1 Baso % (Auto) 0.3 Neut # (Auto) 4.9 Lymph # (Auto) 5.2 H [place] # (Auto) 0.5 Eos # (Auto) 0.3 Baso # (Auto) 0.0 Total Counted 100 Neutrophils % (Manual) 44 Lymphocytes % (Manual) 51 H Monocytes % (Manual) 3 Eosinophils % (Manual) 2 Blast Cells % Platelet Estimate Normal RBC Morphology Normal VBG pH VBG pCO2 VBG pO2 VBG HCO3 VBG Total CO2 VBG O2 Saturation VBG Base Excess VBG Lactic Acid Sodium 137 Potassium 4.0 Chloride 111 H Carbon Dioxide 23 Anion Gap 7.0 BUN 55 H Creatinine 3.40 H Estimated Creat Clear 20 Estimated GFR 13 L* Est GFR ( Amer) 16 L* Glucose 138 H D POC Glucose 130 H 129 H Hemoglobin A1c Uric Acid 8.4 H Calcium 7.6 L Phosphorus 4.9 H Magnesium 1.6 Total Bilirubin 0.1 L AST 19 ALT 11 L D Alkaline Phosphatase 87 Total Protein 5.2 L Albumin 2.5 L D Globulin 2.7 Albumin/Globulin Ratio 0.9 L Lipase Urine Color Urine Appearance Urine pH Ur Specific [place] Urine Protein Urine Glucose (UA) Urine Ketones Urine Blood Urine Nitrate Urine Bilirubin Urine Urobilinogen Ur Leukocyte Esterase Urine RBC Urine WBC Ur Squamous Epith Cells Ur Transition Epith Cell Urine Bacteria Fine Granular Casts Coarse Granular Casts Stl Aeromonas (PCR) Stl C. cayetanensis PCR Stool Rotavirus (PCR) Stl Adenov F 40/41 PCR Stool Astrovirus (PCR) Stool Campylobacter PCR Stl C.difficile Tox PCR Stool Cryptosporidium PCR Stl E.coli Shiga Tox PCR Stool E coli O157 PCR Stl Enterotoxigenic E PCR Stool EPEC (PCR) Stool EAEC (PCR) Stl E. histolytica PCR Stool Giardia Lamblia PCR Stool Salmonella PCR Stool Sapovirus (PCR) Stl P. shigelloides PCR Stl Shigella/EIEC PCR St Y.enterocolitica PCR Stool Vibrio (PCR) Stl Vibrio cholerae PCR Stl Norovirus GI/GII PCR HCV Ab CARO w/Rflx PCR Qn HIV Ag/Ab Combo Qual 10/25/24 10/24/24 10/24/24 05:23 20:23 19:09 WBC RBC Hgb Hct MCV MCH MCHC RDW Plt Count MPV Neut % (Auto) Lymph % (Auto) [place] % (Auto) Eos % (Auto) Baso % (Auto) Neut # (Auto) Lymph # (Auto) [place] # (Auto) Eos # (Auto) Baso # (Auto) Total Counted Neutrophils % (Manual) Lymphocytes % (Manual) Monocytes % (Manual) Eosinophils % (Manual) Blast Cells % Platelet Estimate RBC Morphology VBG pH 7.30 L VBG pCO2 37.7 VBG pO2 51.6 H VBG HCO3 18.2 L VBG Total CO2 19.4 L VBG O2 Saturation 84.6 H VBG Base Excess -8.2 L VBG Lactic Acid 1.9 Sodium Potassium Chloride Carbon Dioxide Anion Gap BUN Creatinine Estimated Creat Clear Estimated GFR Est GFR ( Amer) Glucose POC Glucose 154 H 227 H Hemoglobin A1c Uric Acid Calcium Phosphorus Magnesium Total Bilirubin AST ALT Alkaline Phosphatase Total Protein Albumin Globulin Albumin/Globulin Ratio Lipase Urine Color Urine Appearance Urine pH Ur Specific [place] Urine Protein Urine Glucose (UA) Urine Ketones Urine Blood Urine Nitrate Urine Bilirubin Urine Urobilinogen Ur Leukocyte Esterase Urine RBC Urine WBC Ur Squamous Epith Cells Ur Transition Epith Cell Urine Bacteria Fine Granular Casts Coarse Granular Casts Stl Aeromonas (PCR) Stl C. cayetanensis PCR Stool Rotavirus (PCR) Stl Adenov F 40/ PCR Stool Astrovirus (PCR) Stool Campylobacter PCR Stl C.difficile Tox PCR Stool Cryptosporidium PCR Stl E.coli Shiga Tox PCR Stool E coli O157 PCR Stl Enterotoxigenic E PCR Stool EPEC (PCR) Stool EAEC (PCR) Stl E. histolytica PCR Stool Giardia Lamblia PCR Stool Salmonella PCR Stool Sapovirus (PCR) Stl P. shigelloides PCR Stl Shigella/EIEC PCR St Y.enterocolitica PCR Stool Vibrio (PCR) Stl Vibrio cholerae PCR Stl Norovirus GI/GII PCR HCV Ab CARO w/Rflx PCR Qn HIV Ag/Ab Combo Qual 10/24/24 10/24/24 10/24/24 18:18 16:45 08:20 WBC 16.5 H RBC 3.32 L Hgb 9.5 L Hct 29.0 L MCV 87.3 MCH 28.6 MCHC 32.8 RDW 14.3 Plt Count 242 MPV 10.5 H Neut % (Auto) 47.9 Lymph % (Auto) 46.5 [place] % (Auto) 3.3 Eos % (Auto) 1.6 Baso % (Auto) 0.3 Neut # (Auto) 7.9 H Lymph # (Auto) 7.7 H [place] # (Auto) 0.6 Eos # (Auto) 0.3 Baso # (Auto) 0.1 Total Counted 100 Neutrophils % (Manual) 49 Lymphocytes % (Manual) 46 Monocytes % (Manual) 2 Eosinophils % (Manual) 2 Blast Cells % 1.0 Platelet Estimate Normal RBC Morphology Normal VBG pH VBG pCO2 VBG pO2 VBG HCO3 VBG Total CO2 VBG O2 Saturation VBG Base Excess VBG Lactic Acid Sodium 137 Potassium 4.7 Chloride 107 Carbon Dioxide 19 L Anion Gap 15.7 H BUN 53 H Creatinine 3.90 H Estimated Creat Clear 18 Estimated GFR 11 L* Est GFR ( Amer) 14 L* Glucose 275 H POC Glucose Hemoglobin A1c 10.0 H D Uric Acid Calcium 8.2 L Phosphorus Magnesium Total Bilirubin 0.2 AST 22 ALT 18 Alkaline Phosphatase 113 Total Protein 6.5 Albumin 3.5 Globulin 3.0 Albumin/Globulin Ratio 1.2 Lipase 82 Urine Color Yellow Urine Appearance Clear Urine pH 5.5 Ur Specific [place] 1.024 Urine Protein 3+ A Urine Glucose (UA) 2+ Urine Ketones Negative Urine Blood 1+ A Urine Nitrate Negative Urine Bilirubin Negative Urine Urobilinogen 0.2 Ur Leukocyte Esterase Negative Urine RBC 3-5 Urine WBC Occasional Ur Squamous Epith Cells 5-10 Ur Transition Epith Cell Occ Urine Bacteria 2+ Fine Granular Casts Occasional Coarse Granular Casts 3-5 Stl Aeromonas (PCR) Not detected Stl C. cayetanensis PCR Not detected Stool Rotavirus (PCR) Not detected Stl Adenov F 40/41 PCR Not detected Stool Astrovirus (PCR) Not detected Stool Campylobacter PCR Not detected Stl C.difficile Tox PCR Not detected Stool Cryptosporidium PCR Not detected Stl E.coli Shiga Tox PCR Not detected Stool E coli O157 PCR Not detected Stl Enterotoxigenic E PCR Not detected Stool EPEC (PCR) Not detected Stool EAEC (PCR) Not detected Stl E. histolytica PCR Not detected Stool Giardia Lamblia PCR Not detected Stool Salmonella PCR Not detected Stool Sapovirus (PCR) Not detected Stl P. shigelloides PCR Not detected Stl Shigella/EIEC PCR Not detected St Y.enterocolitica PCR Not detected Stool Vibrio (PCR) Not detected Stl Vibrio cholerae PCR Not detected Stl Norovirus GI/GII PCR Not detected HCV Ab CARO w/Rflx PCR Qn Negative HIV Ag/Ab Combo Qual Negative DS: Diagnosis Discharge Diagnosis (1) 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 Code(s): E11.42 - Type 2 diabetes mellitus with diabetic polyneuropathy Qualifiers: Diabetes mellitus jail insulin use: with terminal clerk use Qualified Code(s): E11.42 - Type 2 diabetes mellitus with diabetic polyneuropathy; Z79.4 - terminal clerk (current) use of insulin (2) Diabetes: Status: Acute Code(s): E11.9 - Type 2 diabetes mellitus without complications Qualifiers: Diabetes mellitus complication detail: with polyneuropathy Diabetes mellitus complication status: with neurologic complications Diabetes mellitus terminal clerk insulin use: with terminal clerk use Diabetes mellitus type: type 2 Qualified Code(s): E11.42 - Type 2 diabetes mellitus with diabetic polyneuropathy; Z79.4 - penitentiary (current) use of insulin (3) Dystrophia unguium: Status: Acute Code(s): L60.3 - Nail dystrophy (4) Hammertoe: Status: Acute Code(s): M20.40 - Other hammer toe(s) (acquired), unspecified foot Qualifiers: Laterality: bilateral Qualified Code(s): M20.41 - Other hammer toe(s) (acquired), right foot; M20.42 - Other hammer toe(s) (acquired), left foot (5) Diabetic ulcer of left heel associated with diabetes mellitus due to underlying condition, limited to breakdown of skin: Status: Acute Code(s): E08.621 - Diabetes mellitus due to underlying condition with foot ulcer; L97.421 - Non-pressure chronic ulcer of left heel and midfoot limited to breakdown of skin (6) Diabetic ulcer of right heel associated with diabetes mellitus due to underlying condition, limited to breakdown of skin: Status: Acute Code(s): E08.621 - Diabetes mellitus due to underlying condition with foot ulcer; L97.411 - Non-pressure chronic ulcer of right heel and midfoot limited to breakdown of skin (7) Keratosis: Status: Acute Code(s): L57.0 - Actinic keratosis Meds Home Medications and Allergies Home Medications ?Medication ?Instructions ?Recorded ?Confirmed ?Type levothyroxine 88 mcg tablet 88 mcg PO DAILY 07/26/24 11/24/24 History gabapentin 400 mg capsule 400 mg PO TID #90 caps 10/14/24 11/24/24 Rx hydralazine 50 mg tablet 50 mg PO TID #90 tabs 10/20/24 11/24/24 Rx nifedipine 90 mg tablet,extended 90 mg PO DAILY #30 tabs 10/20/24 11/24/24 Rx release insulin glargine 100 unit/mL (3 22 unit (0.22 mL) SQ BID Diabetes 10/25/24 11/24/24 Rx mL) subcutaneous pen (Lantus #10 mL Solostar U-100 Insulin) aspirin 81 mg tablet,delayed 81 mg PO DAILY #30 tabs 10/28/24 11/24/24 Rx release (Adult Aspirin Regimen) clonazepam 0.5 mg tablet 0.5 mg PO BID PRN anxiety #60 tabs 11/16/24 11/24/24 Rx bumetanide 1 mg tablet 3 mg PO HS 11/24/24 11/24/24 History bumetanide 1 mg tablet 4 mg PO DAILY 11/24/24 11/24/24 History hydrocodone 7.5 mg-acetaminophen 1 tab PO Q8HP PRN Moderate Pain 11/24/24 11/24/24 History 325 mg tablet (Scale Score 5-6) insulin lispro 100 unit/mL 0 - 14 unit SQ TIDWMEAL 11/24/24 11/24/24 History subcutaneous pen (Humalog KwikPen (U-100) Insulin) spironolactone 50 mg tablet 50 mg PO DAILY 11/24/24 11/24/24 History New Prescriptions to Start Prescriptions: Allergies Allergy/AdvReac Type Severity Reaction Status Date / Time moxifloxacin Allergy Severe S-ANAPHYLAX Verified 11/17/24 22:20 IS Sulfa (Sulfonamide Allergy Mild NA-NAUSEA/V Verified 11/17/24 22:20 Antibiotics) OMITING atorvastatin AdvReac Severe Other Verified 11/17/24 22:20 Discharge Plan Disposition Patient Disposition: Home Health Service Condition: Fair Discharge Order Discharge Orders: Discharge Order (Routine); Ordered 10/25/24 Ordered By: Celso Dominguez Follow up Plan Follow up with: Loc Barry PA [Physician Bait Packer, Cardiology] - 10/28/24 1:00 pm Albert Cain MD [Staff Physician, Medical] - 11/01/24 2:45 pm Fidelia Jerez DPM [Staff Physician, Podiatry] - 11/03/24 11:30 am Prescriptions/Medication Reconciliation: Continued nifedipine 90 mg tablet extended release 90 mg PO DAILY Qty: 30 2RF hydralazine 50 mg tablet 50 mg PO TID Qty: 90 2RF gabapentin 400 mg capsule 400 mg PO TID Qty: 90 2RF levothyroxine 88 mcg tablet 88 mcg PO DAILY Changed insulin glargine [Lantus Solostar U-100 Insulin] 100 unit/mL (3 mL) insulin pen 22 unit SQ BID Qty: 10 10RF Discontinued cephalexin 500 mg capsule 1,000 mg PO BID Qty: 60 1RF Rx Instructions: LAST DOSE 11/02/24 bumetanide 1 mg tablet 3 mg PO BID No Action aspirin [Adult Aspirin Regimen] 81 mg tablet,delayed release (DR/EC) 81 mg PO DAILY Qty: 30 2RF clonazepam 0.5 mg tablet 0.5 mg PO BID PRN (Reason: anxiety) Qty: 60 0RF bumetanide 1 mg tablet 4 mg PO DAILY Patient Comments: TAKE 3 TABLETS BY MOUTH 2 TIMES A DAY spironolactone 50 mg tablet 50 mg PO DAILY Patient Comments: TAKE ONE TABLET BY MOUTH ONCE A DAY WITH FOOD hydrocodone-acetaminophen 7.5-325 mg tablet 1 tab PO Q8HP PRN (Reason: Moderate Pain (Scale Score 5-6)) insulin lispro [Humalog KwikPen Insulin] 100 unit/mL insulin pen 0 - 14 unit SQ TIDWMEAL Rx Instructions: Per home sliding scale If blood sugar 151-200 take 4 units short acting insulin If blood sugar 200-250 take 8 units short acting insulin If blood sugar 251-300 take 12 units short acting insulin If blood sugar 301-350 take 14 units short acting insulin If blood sugar greater than 350 take 14 units insulin and call physician for further instructions. bumetanide 1 mg tablet 3 mg PO HS Patient Comments: TAKE 3 TABLETS BY MOUTH 2 TIMES A DAY Other Ambulatory Orders: Basic Metabolic Panel (Routine) Timeframe: [id number] Facility: [facility] - Location: Laboratory Ordered By: Celso Dominguez Problem Reconciliation Problems Reviewed?: Yes Patient Discharge Instructions Additional Instructions: Please hold Bumex until Friday10/27/2024 after you get your blood work done. Patient Instructions: Diarrhea, Acute Kidney Injury, DI for Diabetic Foot Ulcer Print Language: Maldivian Providers Primary Care Provider: Provider,Referral Admit Provider: Celso Dominguez Attending Provider: Celso Dominguez
--- NOTE | 2024-10-25 15:24 | PC.NURSE ---
per dr. morillo office daily dressing changes to bilateral heels. Use betadine soaked gauze, then 4X4 dry gauze and greg wrap. Patient and family educated to change dressing everyday and how to change dressing
--- NOTE | 2024-10-26 10:10 | SW/DCPLANNER ---
Spoke with patient on the phone. Patient stated that she is doing okay and that she is just tired. Patient stated that she is aware of her upcoming appointments. Patient stated that she was not prescribed any new medicine. Patient denies any concerns or questions. Emily Devine
== END 2024-10-25 15:49 | disposition home health service (06) ==
LOC: ER 17:06 → 2ND 19:35
PROVIDERS: Internal Medicine Adolescent Medicine; Admitting Provider Student in an Organized Health Care Education/Training Program; Emergency Provider Emergency Medicine; Visit Provider Student in an Organized Health Care Education/Training Program
DX: N17.9 Acute kidney failure, unspecified (principal); I13.0 Hypertensive heart and chronic kidney disease with heart failure and stage 1 through stage 4 chronic kidney disease, or unspecified chronic kidney disease; E11.22 Type 2 diabetes mellitus with diabetic chronic kidney disease; N18.4 Chronic kidney disease, stage 4 (severe); I50.32 Chronic diastolic (congestive) heart failure; R19.7 Diarrhea, unspecified; E11.621 Type 2 diabetes mellitus with foot ulcer; C91.10 Chronic lymphocytic leukemia of B-cell type not having achieved remission; E03.9 Hypothyroidism, unspecified; F41.9 Anxiety disorder, unspecified; L60.3 Nail dystrophy; L97.421 Non-pressure chronic ulcer of left heel and midfoot limited to breakdown of skin; L97.411 Non-pressure chronic ulcer of right heel and midfoot limited to breakdown of skin; E11.42 Type 2 diabetes mellitus with diabetic polyneuropathy; Z79.4 Long term (current) use of insulin; M20.41 Other hammer toe(s) (acquired), right foot; L57.0 Actinic keratosis; Z79.899 Other long term (current) drug therapy; R29.6 Repeated falls; E78.5 Hyperlipidemia, unspecified; Z79.890 Hormone replacement therapy; Z79.82 Long term (current) use of aspirin; Z88.1 Allergy status to other antibiotic agents; Z88.2 Allergy status to sulfonamides
CPT/HCPCS: 11042; 96372; G0127; 36415; 73630; 74176; 80053; 81001; 82803; 82962; 83036; 83690; 83735; 84100; 84550; 85007; 85025; 85027; 86803; 87086; 87389; 87507; 93005; 93925; 97110; 97163; 99285; G0378; J1650; J3420; J7120

== ENCOUNTER 2024-11-01 16:00 | Outpatient (CLI) | payer MEDICARE, SELFPAY ==
[2024-11-01 17:28] LABS: Basophils # 0.1 K/mm3 (0-0.2); Basophils % 0.3 % (0.1-2.0); Eosinophils # 0.4 Kmm3 (0.0-0.4); Eosinophils % 2.6 % (0.1-12.0); Hematocrit 31.6 % (37.0-47.0); Lymphocytes # 7.9 K/mm3 (0.7-4.5); Lymphocytes % 52.6 % (10-50); Mean Corpuscular HGB Conc 31.6 g/dL (31.8-35.4); Mean Corpuscular Hemoglobin 27.9 pg (27.0-31.2); Mean Platelet Volume 9.8 fl (7.4-10.4); Monocytes # 0.6 K/mm3 (0.1-1.0); Monocytes % 3.7 % (1.7-9.3); Neutrophils # 6.1 K/mm3 (1.8-7.8); Neutrophils % 40.5 % (37.0-80.0); Nucleated Red Blood Cells # 0 10^3/uL; Nucleated Red Blood Cells % 0 %; Platelet Count 297 K/mm3 (142-424); Red Blood Count 3.59 M/mm3 (4.20-5.40); Red Cell Distribution Width 14.4 % (11.5-17.5); Red Cell Distribution Width-SD 46.5 fL
[2024-11-01 17:32] LABS: MANUAL DIFFERENTIAL MANUAL DIFFERENTIAL (MANUAL DIFF)
[2024-11-01 17:34] LABS: Albumin Level 3.6 g/dl (3.5-5.0); Chloride 108 mmol/L (98-107); Sodium 137 mmol/L (136-145)
[2024-11-01 17:35] LABS: Potassium 4.8 mmoL/L (3.5-5.1)
[2024-11-01 17:37] LABS: Alanine Aminotransferase 11 U/L (12-78); Albumin/Globulin Ratio 1.3 (1.1-1.8); Anion Gap 9.8 mEq/L (5-15); Aspartate Amino Transferase 15 U/L (14-36); Blood Urea Nitrogen 40 mg/dl (7-17); Carbon Dioxide 24 mmol/L (22.0-30.0); Estimated Glomerular Filt Rate 20 ml/min (>60); GFR (African American) 24 ML/MIN (>60); Globulin 2.8 g/dL (1.3-3.2); Total Protein,Serum 6.4 g/dl (6.3-8.2)
[2024-11-01 17:38] LABS: Alkaline Phosphatase 99 U/L (38-126); Bilirubin,Total 0.2 mg/dl (0.2-1.3); Calcium 9.1 mg/dl (8.4-10.2); Chol/HDL Ratio 7.8 (1-3.5); Cholesterol 288 mg/dl (140-200); Glucose 184 mg/dl (74-100); HDL Cholesterol 37 mg/dl (40-60); Triglycerides 275 mg/dl (30-150); VLDL Cholesterol 55 mg/dL (0-40)
[2024-11-01 17:49] LABS: Direct LDL Cholesterol 174.19 mg/dL (100-129)
[2024-11-01 18:21] LABS: Lymphocytes % 60 % (10-50); Monocytes % 1 % (2-9); Neutrophils % 39 % (42-76); Platelet Estimate Normal; RBC Morphology Normal; Total Cells Counted 100
[2024-11-01 18:47] LABS: Hemoglobin A1C 9.5 % (4.0-6.0)
== END 2024-11-01 23:59 | disposition home or self-care (01) ==
LOC: LAB.DROPOF 11-02 08:39
PROVIDERS: PCP Internal Medicine; Visit Provider Internal Medicine
DX: D64.9 Anemia, unspecified (principal); E11.42 Type 2 diabetes mellitus with diabetic polyneuropathy; Z79.4 Long term (current) use of insulin; N18.4 Chronic kidney disease, stage 4 (severe); I50.32 Chronic diastolic (congestive) heart failure; E78.5 Hyperlipidemia, unspecified
CPT/HCPCS: 80053; 80061; 83036; 85007; 85025

== ENCOUNTER 2024-11-17 22:08 | Emergency (ER) | payer MEDICARE, SELFPAY ==
[2024-11-17 22:17] VITALS: BP 216/94; PULSE 63; RESP 17; TEMP 36.8; O2SAT 98; BMI 29.3
--- NOTE | 2024-11-17 22:21 | CT_ITS ---
PROCEDURE INFORMATION: Exam: CT Cervical Spine Without Contrast Exam date and time: 11/17/2024 10:53 PM Age: 73 years old Clinical indication: Injury or trauma; Fall; Additional info: Fell backwards hitting head, + loc TECHNIQUE: Imaging protocol: Computed tomography of the cervical spine without contrast. Radiation optimization: All CT scans at this facility use at least one of these dose optimization techniques: automated exposure control; mA and/or kV adjustment per patient size (includes targeted exams where dose is matched to clinical indication); or iterative reconstruction. COMPARISON: CT HEAD/BRAIN WO CON 11/17/2024 10:51 PM FINDINGS: Bones: Spinal alignment is normal. No fracture or bone destruction. Diffuse osteopenia. Subtle fractures may be missed. Pre dens space narrowing consistent with arthritis. Multilevel mild degenerative disc disease predominantly at C4-C5, C5-C6, C6-C7 levels with small calcified disc and disc osteophyte complexes. [id number] multilevel facet arthropathy. Lungs: Lung apices are normal. Soft tissues: Unremarkable. IMPRESSION: 1. Spinal alignment is normal. 2. No fracture or bone destruction. 3. Diffuse osteopenia. Subtle fractures may be missed. 4. Pre dens space narrowing consistent with arthritis. 5. Multilevel mild degenerative disc disease predominantly at C4-C5, C5-C6, C6-C7 levels with small calcified disc and disc osteophyte complexes. 6. [id number] multilevel facet arthropathy.
--- NOTE | 2024-11-17 22:21 | CT_ITS ---
PROCEDURE INFORMATION: Exam: CT Thoracic Spine Without Contrast Exam date and time: 11/17/2024 10:55 PM Age: 73 years old Clinical indication: Injury or trauma; Fall; Additional info: Fell backwards hitting head, + loc TECHNIQUE: Imaging protocol: Computed tomography of the thoracic spine without contrast. Radiation optimization: All CT scans at this facility use at least one of these dose optimization techniques: automated exposure control; mA and/or kV adjustment per patient size (includes targeted exams where dose is matched to clinical indication); or iterative reconstruction. COMPARISON: CT THORACIC SPINE WO CON 07/25/2024 1:14 PM FINDINGS: Bones/joints: Spinal alignment is normal. No fracture or bone destruction. Severe osteopenia. Subtle fractures may be missed. Redemonstration sclerotic osseous lesion at T4 measuring 13 mm; unchanged compared with the previous exam; likely bone island. Re-demonstration of T9 vertebral body hemangioma unchanged compared with the previous exam Soft tissues: Unremarkable. Vasculature: The aorta demonstrates mild atherosclerotic calcification. Pleural spaces: Small left pleural effusion. IMPRESSION: 1. Spinal alignment is normal. 2. No fracture or bone destruction. 3. Severe osteopenia. Subtle fractures may be missed. 4. Redemonstration sclerotic osseous lesion at T4 measuring 13 mm; unchanged compared with the previous exam; likely bone island. 5. Re-demonstration of T9 vertebral body hemangioma unchanged compared with the previous exam 6. Small left pleural effusion. 7. The aorta demonstrates mild atherosclerotic calcification.
--- NOTE | 2024-11-17 22:21 | CT_ITS ---
PROCEDURE INFORMATION: Exam: CT Head Without Contrast Exam date and time: 11/17/2024 10:51 PM Age: 73 years old Clinical indication: Injury or trauma; Fall; Additional info: Fell backwards hitting head, + loc TECHNIQUE: Imaging protocol: Computed tomography of the head without contrast. Radiation optimization: All CT scans at this facility use at least one of these dose optimization techniques: automated exposure control; mA and/or kV adjustment per patient size (includes targeted exams where dose is matched to clinical indication); or iterative reconstruction. COMPARISON: CT HEAD/BRAIN WO CON 12/12/2022 9:37 PM FINDINGS: Brain: No evidence for intracranial hemorrhage, mass lesions or acute stroke. Intracranial vascular calcifications. Mild small vessel ischemic change in the periventricular white matter. Cerebral ventricles: No ventriculomegaly. Pituitary gland and sella: Negative Paranasal sinuses: Visualized sinuses are unremarkable. No fluid levels. Mastoid air cells: Visualized mastoid air cells are well aerated. Orbital cavities: Bilateral cataract extractions. Bones: Unremarkable. No acute fracture. Soft tissues: Left posterior parietal and occipital scalp hematoma image 5/105-180. Vasculature: Negative. Other findings: Mild generalized atrophy. IMPRESSION: 1. No evidence for intracranial hemorrhage, mass lesions or acute stroke. 2. Intracranial vascular calcifications. 3. Mild generalized atrophy. 4. Mild small vessel ischemic change in the periventricular white matter. 5. Left posterior parietal and occipital scalp hematoma image 5/105-180. 6. Bilateral cataract extractions.
--- NOTE | 2024-11-17 22:21 | CT_ITS ---
PROCEDURE INFORMATION: Exam: CT Lumbar Spine Without Contrast Exam date and time: 11/17/2024 10:58 PM Age: 73 years old Clinical indication: Injury or trauma; Fall; Additional info: Fell backwards hitting head, + loc TECHNIQUE: Imaging protocol: Computed tomography of the lumbar spine without contrast. Radiation optimization: All CT scans at this facility use at least one of these dose optimization techniques: automated exposure control; mA and/or kV adjustment per patient size (includes targeted exams where dose is matched to clinical indication); or iterative reconstruction. COMPARISON: CT THORACIC SPINE WO CON 11/17/2024 10:55 PM FINDINGS: Bones/joints: Projecting posteriorly at L5-S1 image 1002/46. Spinal alignment is normal. No fracture or bone destruction. Severe osteopenia. Subtle fractures may be missed. Multilevel degenerative disc disease predominantly at L4-L5 and L5-S1 with vacuum disc phenomenon and disc space narrowing at L5-S1 with small disc osteophyte complex. Vasculature: The aorta demonstrates moderate atherosclerotic calcification. The aorta demonstrates moderate atherosclerotic calcification. Soft tissues: Unremarkable. IMPRESSION: 1. Spinal alignment is normal. 2. No fracture or bone destruction. 3. Severe osteopenia. Subtle fractures may be missed. 4. Multilevel degenerative disc disease predominantly at L4-L5 and L5-S1 with vacuum disc phenomenon and disc space narrowing at L5-S1 with small disc osteophyte complex. 5. The aorta demonstrates moderate atherosclerotic calcification.
--- NOTE | 2024-11-17 22:21 | PC.NURSE ---
She denies knowing her home medications but states they should all be in the computer because I've been here alot.
[2024-11-17] MEDS: ACETAMINOPHEN 500MG TAB 1000 MG PO (22:29)
[2024-11-17 22:30] LABS: Chloride 109 mmol/L (98-107)
[2024-11-17] MEDS: ONDANSETRON 4MG/2ML VIAL 4 MG IV (22:30)
--- NOTE | 2024-11-17 22:30 | PC.NURSE ---
Pt was provided a warm blanket.
[2024-11-17 22:31] VITALS: BP 220/84; PULSE 64; O2SAT 98
[2024-11-17 22:31] LABS: Albumin Level 3.2 g/dl (3.5-5.0); Potassium 3.8 mmoL/L (3.5-5.1); Sodium 137 mmol/L (136-145)
[2024-11-17 22:33] LABS: Alanine Aminotransferase 12 U/L (12-78); Anion Gap 7.8 mEq/L (5-15); Aspartate Amino Transferase 19 U/L (14-36); Blood Urea Nitrogen 48 mg/dl (7-17); Carbon Dioxide 24 mmol/L (22.0-30.0); Creatinine Clearance Estimated 25 mL/min (50-200); Estimated Glomerular Filt Rate 17 ml/min (>60); GFR (African American) 21 ML/MIN (>60)
[2024-11-17 22:34] LABS: Albumin/Globulin Ratio 1.1 (1.1-1.8); Alkaline Phosphatase 90 U/L (38-126); Bilirubin,Total 0.2 mg/dl (0.2-1.3); Calcium 8.3 mg/dl (8.4-10.2); Globulin 2.8 g/dL (1.3-3.2); Glucose 214 mg/dl (74-100)
[2024-11-17 22:48] LABS: Basophils # 0.1 K/mm3 (0-0.2); Basophils % 0.4 % (0.1-2.0); Eosinophils # 0.5 Kmm3 (0.0-0.4); Eosinophils % 3.9 % (0.1-12.0); Hematocrit 28.1 % (37.0-47.0); Hemoglobin 8.9 g/dL (12.2-16.2); Immature Granulocytes # 0.05 10^3uL; Immature Granulocytes % 0.4 %; Lymphocytes # 7.1 K/mm3 (0.7-4.5); Lymphocytes % 54.8 % (10-50); Mean Corpuscular HGB Conc 31.7 g/dL (31.8-35.4); Mean Corpuscular Hemoglobin 27.8 pg (27.0-31.2); Mean Corpuscular Volume 87.8 fl (81-99); Mean Platelet Volume 9.8 fl (7.4-10.4); Monocytes # 0.6 K/mm3 (0.1-1.0); Monocytes % 4.2 % (1.7-9.3); Neutrophils # 4.7 K/mm3 (1.8-7.8); Neutrophils % 36.3 % (37.0-80.0); Nucleated Red Blood Cells # 0 10^3/uL; Nucleated Red Blood Cells % 0 %; Platelet Count 240 K/mm3 (142-424); Red Cell Distribution Width 15.3 % (11.5-17.5); Red Cell Distribution Width-SD 49.4 fL
[2024-11-17 22:51] LABS: MANUAL DIFFERENTIAL MANUAL DIFFERENTIAL (MANUAL DIFF)
[2024-11-17 23:02] LABS: INR 0.96 (0.9-1.1); Prothrombin Time 10.7 seconds (10.1-12.5)
[2024-11-17] MEDS: MORPHINE 4MG/ML SYRINGE 4 MG IV (23:16)
--- NOTE | 2024-11-17 23:24 | [facility].EDGENADL ---
Discharge Plan Disposition Patient Disposition: Home, Self-Care Prescriptions Prescriptions: No Action nifedipine 90 mg tablet extended release 90 mg PO DAILY Qty: 30 2RF hydralazine 50 mg tablet 50 mg PO TID Qty: 90 2RF aspirin [Adult Aspirin Regimen] 81 mg tablet,delayed release (DR/EC) 81 mg PO DAILY Qty: 30 2RF rosuvastatin [Crestor] 10 mg tablet 10 mg PO DAILY Qty: 30 2RF hydrocodone-acetaminophen 7.5-325 mg tablet 1 tab PO Q8H PRN (Reason: pain) Qty: 90 0RF gabapentin 400 mg capsule 400 mg PO TID Qty: 90 2RF bumetanide 1 mg tablet See Rx Instructions .ROUTE .COMPLEX Qty: 180 1RF Dose Instruction: TAKE 3 TABLETS BY MOUTH 2 TIMES A DAY Rx Instructions: TAKE 3 TABLETS BY MOUTH 2 TIMES A DAY clonazepam 0.5 mg tablet 0.5 mg PO BID PRN (Reason: anxiety) Qty: 60 0RF insulin lispro [Humalog KwikPen Insulin] 100 unit/mL insulin pen 0 - 14 unit SQ TIDWMEAL Qty: 10 10RF Rx Instructions: Per home sliding scale If blood sugar 151-200 take 4 units short acting insulin If blood sugar 200-250 take 8 units short acting insulin If blood sugar 251-300 take 12 units short acting insulin If blood sugar 301-350 take 14 units short acting insulin If blood sugar greater than 350 take 14 units insulin and call physician for further instructions. levothyroxine 88 mcg tablet 88 mcg PO DAILY spironolactone 50 mg tablet 50 mg PO DAILY Patient Comments: TAKE ONE TABLET BY MOUTH ONCE A DAY WITH FOOD insulin glargine [Lantus Solostar U-100 Insulin] 100 unit/mL (3 mL) insulin pen 22 unit SQ BID Qty: 10 10RF Referrals Follow up/Referrals: Albert Cain MD [Primary Care Provider] - See instructions Activity Restrictions/Add. Instructions Additional Instructions/Restrictions: Please follow-up with your primary care provider. Please return to the emergency department if you develop any new or worsening symptoms or become concerned for your health. Please take Tylenol as needed for pain. Clinical Impressions Clinical Impression: Hematoma of scalp Qualifiers: Encounter type: initial encounter Qualified Code(s): S00.03XA - Contusion of scalp, initial encounter Back pain Qualifiers: Back pain location: thoracic back pain Print Language Print Language: Singaporean Discharge ED Provider: Melinda Adamson General Adult HPI <Melinda Adamson DO - Last Filed: 11/17/24 23:37> General Chief complaint: Fall Stated complaint: Fall Time Seen by Provider: 11/17/24 22:19 Mode of Arrival: EMS Source of Information: Patient Description of Symptoms (Recalled from ER Triage Doc. by RN): States she was walking into her kitchen and there is a step up into her kitchen and she fell back and hit her head. She states she thinks lost consciousness. She denies being on blood thinners. History of Present Illness HPI narrative: This patient is a 73-year-old female with a history of obesity, type 2 diabetes, CHF, hyperlipidemia, CKD, CLL presented to the emergency department for evaluation with concern for fall. Patient states she was walking up into her kitchen and she missed the step up, falling backwards and hitting her head. She believes she might of lost consciousness briefly. She complains of head and low back pain. No other concerns or complaints. She reports she was feeling fine prior to the fall with no prodrome of dizziness or other concerns. No new numbness, tingling, saddle anesthesia, incontinence. She states she always has tingling in her lower extremities at baseline secondary to neuropathy. No blood thinners. EMS arrived with the patient. They placed c-collar prior to arrival. They confirm history and note the patient was alert and oriented and neurologically intact en route Related Data Home Medications ?Medication ?Instructions ?Recorded ?Confirmed levothyroxine 88 mcg tablet 88 mcg PO DAILY 07/26/24 11/16/24 spironolactone 50 mg tablet 50 mg PO DAILY 10/25/24 11/16/24 Previous Rx's ?Medication ?Instructions ?Recorded insulin lispro 100 unit/mL 0 - 14 unit (0 - 0.14 mL) SQ 12/14/22 subcutaneous pen (Humalog KwikPen TIDWMEAL Diabetes #10 mL (U-100) Insulin) gabapentin 400 mg capsule 400 mg PO TID #90 caps 10/14/24 hydralazine 50 mg tablet 50 mg PO TID #90 tabs 10/20/24 nifedipine 90 mg tablet,extended 90 mg PO DAILY #30 tabs 10/20/24 release insulin glargine 100 unit/mL (3 22 unit (0.22 mL) SQ BID Diabetes 10/25/24 mL) subcutaneous pen (Lantus #10 mL Solostar U-100 Insulin) aspirin 81 mg tablet,delayed 81 mg PO DAILY #30 tabs 10/28/24 release (Adult Aspirin Regimen) rosuvastatin 10 mg tablet (Crestor) 10 mg PO DAILY #30 tabs 10/28/24 bumetanide 1 mg tablet See Rx Instructions .Route 11/09/24 .COMPLEX #180 tabs clonazepam 0.5 mg tablet 0.5 mg PO BID PRN anxiety #60 tabs 11/16/24 hydrocodone 7.5 mg-acetaminophen 1 tab PO Q8H PRN pain #90 tabs 11/16/24 325 mg tablet Allergies Allergy/AdvReac Type Severity Reaction Status Date / Time moxifloxacin Allergy Severe S-ANAPHYLAX Verified 11/17/24 22:20 IS Sulfa (Sulfonamide Allergy Mild NA-NAUSEA/V Verified 11/17/24 22:20 Antibiotics) OMITING atorvastatin AdvReac Severe Other Verified 11/17/24 22:20 [facility] <Melinda Adamson DO - Last Filed: 11/17/24 23:37> [facility] Disclaimer: The information contained in this section may have been updated after the patient was seen, as this information can be updated by other users. Medical History Callus of foot Edema Hypervolemia Leukocytosis UTI (urinary tract infection) Urinary tract infectious disease Sepsis without septic shock Noncompliance Acute kidney injury superimposed on chronic kidney disease Diabetic foot ulcer Sinusitis Hyperkalemia Urinary tract infection Hyperkalemia High anion gap metabolic acidosis Renal failure Falls frequently Viral URI with cough Skin infection, bacterial Avulsed toenail Ulcer of right great toe due to diabetes mellitus Frequent falls Statin intolerance Hyperlipidemia Bradycardia Syncope and collapse Syncope Falls Neuropathy Osteopenia Onychodystrophy Pain of toe of right foot Fracture of second toe, right, closed Edema of toe Acquired hammer toe Closed rib fracture Fall Hyperglycemia due to type 2 diabetes mellitus Bacteremia due to Klebsiella pneumoniae UTI due to Klebsiella species Gram-negative bacteremia DKA (diabetic ketoacidoses) Hyperglycemia due to type 2 diabetes mellitus CLL (chronic lymphocytic leukemia) History of hypertension Diabetes mellitus Surgical History H/O lithotripsy History of cholecystectomy Family History Other Cancer Congestive heart failure (CHF) Heart disease Lymphoma Social History Smoking Status: Never smoker alcohol intake: never substance use type: denies use current occupational status: retired Travel in the last 8 weeks?: None household members: none housing: house caffeine: Yes Other Medical History Have you received the Flu Vaccine for this season: No Have you received the Pneumonia Vaccine: No <Melinda Adamson DO - Last Filed: 11/17/24 23:37> ROS Obtained: Yes All systems reviewed & no additional complaints except as documented Physical Exam <Melinda Adamson DO - Last Filed: 11/17/24 23:37> General General appearance: alert and in no apparent distress Head Head exam: normocephalic and other (Posterior scalp hematoma) Eye Eye exam: Present normal appearance, PERRL and EOMI ENT ENT exam: Present normal exam, normal oropharynx, mucous membranes moist and normal external ear exam Neck Neck exam: Present normal inspection, trachea midline and other (C-collar in place); Absent tenderness Chest Chest inspection: Present normal inspection and symmetric chest wall rise; Absent tenderness Respiratory Respiratory exam: Present normal lung sounds bilaterally; Absent respiratory distress, wheezes, stridor or accessory muscle use Cardiovascular Cardiovascular exam: Present regular rate and normal rhythm Abdominal Exam Abdominal exam: Present soft; Absent distention, tenderness or guarding Extremities Exam Extremities exam: Present normal inspection, full ROM and normal capillary refill; Absent tenderness or edema Back Exam Back exam: Present full ROM and tenderness (low back TTP with no step-offs or deformities) Neurological Exam Neurological exam: Present alert, oriented X3 and CN II-XII intact; Absent motor sensory deficit Psychiatric Psychiatric exam: Present normal affect and normal mood Skin Skin exam: Present warm and dry Medical Decision Making <Melinda Adamson DO - Last Filed: 11/17/24 23:37> Medical Records Medical records reviewed: Yes I reviewed the patient's medical records. Screening: Per USPSTF and CDC recommendations, given the prevalence of disease in our region, it is our hospital?s policy to screen for HIV and viral Hepatitis for all patients aged 18 and over and those with ongoing risk factors. Xu Inquiry Pt receiving controlled substance: No Vital Signs: 11/17/24 22:17 11/17/24 22:31 11/17/24 23:31 Temperature 98.2 F Temperature Source Oral Pulse Rate 64 Pulse Rate [Right Brachial] 63 Respiratory Rate 17 Blood Pressure 220/84 H 187/83 H Blood Pressure [Right Arm] 216/94 H Blood Pressure Mean 117 Blood Pressure Mean [Right Arm] 134 Blood Pressure Source [Right Arm] Automatic Cuff Blood Pressure Position [Right Arm] Sitting 02 Sat by Pulse Oximetry 98 98 Oxygen Delivery Method Room Air Room Air 11/17/24 23:31 11/18/24 00:03 Temperature 98.1 F Temperature Source Pulse Rate 62 62 Pulse Rate [Right Brachial] Respiratory Rate 18 Blood Pressure 187/83 H Blood Pressure [Right Arm] Blood Pressure Mean Blood Pressure Mean [Right Arm] Blood Pressure Source [Right Arm] Blood Pressure Position [Right Arm] 02 Sat by Pulse Oximetry 94 L Oxygen Delivery Method Room Air Lab Data Lab results reviewed: Yes I reviewed the patient's lab results. Lab Results 11/17/24 21:44: PT 10.7, INR 0.96, Sodium 137, Potassium 3.8, Chloride 109 H, Carbon Dioxide 24, Anion Gap 7.8, BUN 48 H, Creatinine 2.70 H, Estimated Creat Clear 25, Estimated GFR 17 L*, Est GFR ( Amer) 21 L, Glucose 214 H, Calcium 8.3 L, Total Bilirubin 0.2, AST 19, ALT 12, Alkaline Phosphatase 90, Total Protein 6.0 L, Albumin 3.2 L, Globulin 2.8, Albumin/Globulin Ratio 1.1 11/17/24 22:40: WBC 13.0 H, RBC 3.20 L, Hgb 8.9 L, Hct 28.1 L, MCV 87.8, MCH 27.8, MCHC 31.7 L, RDW 15.3, Plt Count 240, MPV 9.8, Neut % (Auto) 36.3 L, Lymph % (Auto) 54.8 H, Rabun % (Auto) 4.2, Eos % (Auto) 3.9, Baso % (Auto) 0.4, Neut # (Auto) 4.7, Lymph # (Auto) 7.1 H, Rabun # (Auto) 0.6, Eos # (Auto) 0.5 H, Baso # (Auto) 0.1, Total Counted 100, Neutrophils % (Manual) 42, Lymphocytes % (Manual) 47, Monocytes % (Manual) 3, Eosinophils % (Manual) 8 H, Platelet Estimate Normal, Poikilocytosis 1+, Anisocytosis 1+, Microcytosis 1+, Macrocytosis 1+, Target Cells 1+, Tear Drop Cells 1+, Ovalocytes 1+ 11/17/24 22:40 11/17/24 21:44 Orders (Tests/Meds): ED MEDICATIONS Discontinued Medications Generic Name Dose Route Start Last Admin Trade Name Cyrusq PRN Reason Stop Dose Admin Acetaminophen 1,000 mg 11/17/24 22:21 11/17/24 22:29 Acetaminophen 500mg Tab PO 11/17/24 22:22 1,000 mg ONCE ONE Administration Morphine Sulfate 4 mg 11/17/24 23:11 11/17/24 23:16 Morphine 4mg/Ml Syringe IV 11/17/24 23:12 4 mg ONCE ONE Administration Ondansetron HCl 4 mg 11/17/24 22:21 11/17/24 22:30 Ondansetron 4mg/2ml Vial IV 11/17/24 22:22 4 mg ONCE ONE Administration ORDERS Category Date Time Status CT cervical spine wo con Stat Cat Scan 11/17/24 22:[address] head/brain wo con Stat Cat Scan 11/17/24 22:[address] lumbar spine wo con Stat Cat Scan 11/17/24 22:[address] thoracic spine wo con Stat Cat Scan 11/17/24 22:21 Completed CBC w/Auto Diff [Complete Blood Count Auto Diff] Stat Lab 11/17/24 22:40 Completed CMP [Comprehensive Metabolic Panel] Stat Lab 11/17/24 21:44 Completed INR [Prothrombin Time INR] Stat Lab 11/17/24 21:44 Completed Medical Decision Narrative: In summary, this patient is a 73-year-old male presenting to the Emergency Department for evaluation of fall with head injury and low back pain. Differential diagnoses considered include but are not limited to head trauma, spine fracture, polytrauma. Ruling out the most morbid conditions drove assessment. It should be noted patient's history includes obesity, CKD, hypertension, hyperlipidemia, type 2 diabetes which may or may not be at goal therapy. This complicates all aspects of care by increasing patient's risk for morbidity. I reviewed patient's past medical records and noted prior evaluations by cardiology and primary care for maintenance of health and chronic anemia. On exam, the patient is lying in bed in no acute distress. She is alert, neurologically intact with posterior scalp hematoma and tenderness palpation of the low back. She is neurologically intact in her lower extremities at her baseline. Cardiopulmonary and abdominal exams are benign. Workup included CT head, CT C/T/L-spine without contrast, and basic lab evaluation. Patient was given IV morphine, Zofran, and acetaminophen for symptomatic improvement. Patient care was signed out to the oncoming provider, Dr. Richardson. <Quan Richardson MD - Last Filed: 11/18/24 02:10> Vital Signs: 11/17/24 22:17 11/17/24 22:31 11/17/24 23:31 Temperature 98.2 F Temperature Source Oral Pulse Rate 64 Pulse Rate [Right Brachial] 63 Respiratory Rate 17 Blood Pressure 220/84 H 187/83 H Blood Pressure [Right Arm] 216/94 H Blood Pressure Mean 117 Blood Pressure Mean [Right Arm] 134 Blood Pressure Source [Right Arm] Automatic Cuff Blood Pressure Position [Right Arm] Sitting 02 Sat by Pulse Oximetry 98 98 Oxygen Delivery Method Room Air Room Air 11/17/24 23:31 11/18/24 00:03 Temperature 98.1 F Temperature Source Pulse Rate 62 62 Pulse Rate [Right Brachial] Respiratory Rate 18 Blood Pressure 187/83 H Blood Pressure [Right Arm] Blood Pressure Mean Blood Pressure Mean [Right Arm] Blood Pressure Source [Right Arm] Blood Pressure Position [Right Arm] 02 Sat by Pulse Oximetry 94 L Oxygen Delivery Method Room Air Lab Data Lab Results 11/17/24 21:44: PT 10.7, INR 0.96, Sodium 137, Potassium 3.8, Chloride 109 H, Carbon Dioxide 24, Anion Gap 7.8, BUN 48 H, Creatinine 2.70 H, Estimated Creat Clear 25, Estimated GFR 17 L*, Est GFR ( Amer) 21 L, Glucose 214 H, Calcium 8.3 L, Total Bilirubin 0.2, AST 19, ALT 12, Alkaline Phosphatase 90, Total Protein 6.0 L, Albumin 3.2 L, Globulin 2.8, Albumin/Globulin Ratio 1.1 11/17/24 22:40: WBC 13.0 H, RBC 3.20 L, Hgb 8.9 L, Hct 28.1 L, MCV 87.8, MCH 27.8, MCHC 31.7 L, RDW 15.3, Plt Count 240, MPV 9.8, Neut % (Auto) 36.3 L, Lymph % (Auto) 54.8 H, Rabun % (Auto) 4.2, Eos % (Auto) 3.9, Baso % (Auto) 0.4, Neut # (Auto) 4.7, Lymph # (Auto) 7.1 H, Rabun # (Auto) 0.6, Eos # (Auto) 0.5 H, Baso # (Auto) 0.1, Total Counted 100, Neutrophils % (Manual) 42, Lymphocytes % (Manual) 47, Monocytes % (Manual) 3, Eosinophils % (Manual) 8 H, Platelet Estimate Normal, Poikilocytosis 1+, Anisocytosis 1+, Microcytosis 1+, Macrocytosis 1+, Target Cells 1+, Tear Drop Cells 1+, Ovalocytes 1+ Orders (Tests/Meds): ED MEDICATIONS Discontinued Medications Generic Name Dose Route Start Last Admin Trade Name Freq PRN Reason Stop Dose Admin Acetaminophen 1,000 mg 11/17/24 22:21 11/17/24 22:29 Acetaminophen 500mg Tab PO 11/17/24 22:22 1,000 mg ONCE ONE Administration Morphine Sulfate 4 mg 11/17/24 23:11 11/17/24 23:16 Morphine 4mg/Ml Syringe IV 11/17/24 23:12 4 mg ONCE ONE Administration Ondansetron HCl 4 mg 11/17/24 22:21 11/17/24 22:30 Ondansetron 4mg/2ml Vial IV 11/17/24 22:22 4 mg ONCE ONE Administration ORDERS Category Date Time Status CT cervical spine wo con Stat Cat Scan 11/17/24 22:[address] head/brain wo con Stat Cat Scan 11/17/24 22:[address] lumbar spine wo con Stat Cat Scan 11/17/24 22:[address] thoracic spine wo con Stat Cat Scan 11/17/24 22:21 Completed CBC w/Auto Diff [Complete Blood Count Auto Diff] Stat Lab 11/17/24 22:40 Completed CMP [Comprehensive Metabolic Panel] Stat Lab 11/17/24 21:44 Completed INR [Prothrombin Time INR] Stat Lab 11/17/24 21:44 Completed Medical Decision Narrative: In summary, this patient is a 73-year-old male presenting to the Emergency Department for evaluation of fall with head injury and low back pain. Differential diagnoses considered include but are not limited to head trauma, spine fracture, polytrauma. Ruling out the most morbid conditions drove assessment. It should be noted patient's history includes obesity, CKD, hypertension, hyperlipidemia, type 2 diabetes which may or may not be at goal therapy. This complicates all aspects of care by increasing patient's risk for morbidity. I reviewed patient's past medical records and noted prior evaluations by cardiology and primary care for maintenance of health and chronic anemia. On exam, the patient is lying in bed in no acute distress. She is alert, neurologically intact with posterior scalp hematoma and tenderness palpation of the low back. She is neurologically intact in her lower extremities at her baseline. Cardiopulmonary and abdominal exams are benign. Workup included CT head, CT C/T/L-spine without contrast, and basic lab evaluation. Patient was given IV morphine, Zofran, and acetaminophen for symptomatic improvement. Patient care was signed out to the oncoming provider, Dr. Richardson. Dylan SHEPHERD: I assumed care of the patient at the time of handoff from the prior provider. On reassessment patient reports symptomatic improvement. CT imaging was independently interpreted by me and shows no evidence of acute fracture of the spines, nor any intracranial bleeding. Labs were independently interpreted by me and show chronic anemia, chronic kidney disease, no significant electrolyte derangement. Patient c-collar was cleared at bedside. Patient was ambulated satisfactorily. After interactive succussion with patient and family, she was discharged in stable condition with return precautions. Critical Care <Melinda Adamson, DO - Last Filed: 11/17/24 23:37> Critical Care Time Critical Care Time: No
[2024-11-17 23:31] VITALS: BP 187/83; PULSE 62; O2SAT 94
[2024-11-17 23:32] LABS: Eosinophils % 8 % (0-3); Lymphocytes % 47 % (10-50); Monocytes % 3 % (2-9); Neutrophils % 42 % (42-76); Total Cells Counted 100
[2024-11-17 23:33] LABS: Ovalocytes 1+; Platelet Estimate Normal; Poikilocytosis 1+; Target Cells 1+; Tear Drop Cells 1+
[2024-11-17 23:34] LABS: Anisocytosis 1+; Macrocytosis 1+; Microcytosis 1+
[2024-11-18 00:03] VITALS: BP 187/83; PULSE 62; RESP 18; TEMP 36.7; O2SAT 97
== END 2024-11-18 00:18 | disposition home or self-care (01) ==
PROVIDERS: Physician Assistant; Emergency Provider Emergency Medicine; PCP Internal Medicine
DX: S00.03XA Contusion of scalp, initial encounter (principal); W01.10XA Fall on same level from slipping, tripping and stumbling with subsequent striking against unspecified object, initial encounter
CPT/HCPCS: 70450; 72125; 72128; 72131; 80053; 85007; 85025; 85027; 85610; 96374; 96375; 99285; J2270; J2405

== ENCOUNTER 2024-11-23 20:36 | Observation (INO) | payer MEDICARE, SELFPAY ==
[2024-11-23 21:04] VITALS: BP 210/77; PULSE 69; RESP 16; TEMP 36.4; O2SAT 98; BMI 30.9
--- NOTE | 2024-11-23 21:04 | CT_ITS ---
PROCEDURE INFORMATION: Exam: CT Abdomen And Pelvis Without Contrast Exam date and time: 11/23/2024 9:43 PM Age: 73 years old Clinical indication: Abdominal pain; Additional info: Gen abd pain, no bm x 7 days TECHNIQUE: Imaging protocol: Computed tomography of the abdomen and pelvis without contrast. Radiation optimization: All CT scans at this facility use at least one of these dose optimization techniques: automated exposure control; mA and/or kV adjustment per patient size (includes targeted exams where dose is matched to clinical indication); or iterative reconstruction. COMPARISON: 1. CT ABDOMEN PELVIS WO CON 10/24/2024 5:[address] ABDOMEN PELVIS WO CON 12/12/2022 9:47 PM FINDINGS: Lungs: Interval development of small left effusion associated posterior left lower lobe atelectasis. Liver: Stable 17 mm low-density lesion in the right lobe of the liver dating back to 12/12/2022 compatible with benign process. Gallbladder and biliary ducts: Status post cholecystectomy. No evident bile duct dilatation allowing for prior cholecystectomy. Pancreas: Normal. No ductal dilation. Spleen: Normal. No splenomegaly. Adrenal glands: Normal. No mass. Kidneys and ureters: Cyst in the inferior right kidney redemonstrated. No follow-up advised. Tiny nonobstructing stones left kidney. Kidneys and ureters otherwise unremarkable with no obstructing stones or uropathy. Stomach and bowel: Interval development of dilated stool-filled rectum measuring 8.7 cm in diameter with associated wall thickening and perirectal edema. Moderate amounts of well formed stool noted in the more proximal colon from the splenic flexure through the distal sigmoid. GI tract structures otherwise unremarkable with no evident wall thickening allowing for incomplete distention. Appendix: Appendix is normal. No evidence of appendicitis. Intraperitoneal space: Interval development of small amount of free fluid in the left lower quadrant region Vasculature: Unremarkable. No abdominal aortic aneurysm. Lymph nodes: Unremarkable. No enlarged lymph nodes. Urinary bladder: Unremarkable as visualized. Reproductive: Hysterectomy. Extraperitoneal space: [id number] body wall edema and edema of the intra-abdominal fat tissues including the presacral region compatible with anasarca with interval worsening. Bones/joints: Unremarkable. No acute fracture. Soft tissues: Unremarkable. IMPRESSION: 1. Interval development of dilated stool-filled rectum compatible with fecal impaction. Associated wall thickening and adjacent fat stranding raising concern for developing stercoral colitis of the rectum. Moderate amounts of fecal material in the more proximal colon. 2. Anasarca changes with significant interval worsening. Associated small amount of free fluid in the left lower quadrant. 3. Interval development of small left effusion and associated posterior left lower lobe atelectasis.
[2024-11-23 21:24] LABS: Basophils # 0.1 K/mm3 (0-0.2); Basophils % 0.4 % (0.1-2.0); Eosinophils # 0.4 Kmm3 (0.0-0.4); Eosinophils % 2.1 % (0.1-12.0); Hematocrit 26.9 % (37.0-47.0); Hemoglobin 8.6 g/dL (12.2-16.2); Immature Granulocytes # 0.08 10^3uL; Immature Granulocytes % 0.4 %; Lymphocytes # 8.6 K/mm3 (0.7-4.5); Lymphocytes % 47.7 % (10-50); Mean Corpuscular Hemoglobin 27.5 pg (27.0-31.2); Mean Corpuscular Volume 85.9 fl (81-99); Mean Platelet Volume 9.9 fl (7.4-10.4); Monocytes # 0.6 K/mm3 (0.1-1.0); Monocytes % 3.1 % (1.7-9.3); Neutrophils # 8.3 K/mm3 (1.8-7.8); Neutrophils % 46.3 % (37.0-80.0); Nucleated Red Blood Cells # 0 10^3/uL; Nucleated Red Blood Cells % 0 %; Platelet Count 291 K/mm3 (142-424); Red Blood Count 3.13 M/mm3 (4.20-5.40); Red Cell Distribution Width 15.3 % (11.5-17.5); Red Cell Distribution Width-SD 47.6 fL
[2024-11-23 21:25] LABS: MANUAL DIFFERENTIAL MANUAL DIFFERENTIAL (MANUAL DIFF)
[2024-11-23 21:27] LABS: Alanine Aminotransferase 14 U/L (12-78); Albumin Level 3.1 g/dl (3.5-5.0); Albumin/Globulin Ratio 1.1 (1.1-1.8); Alkaline Phosphatase 110 U/L (38-126); Anion Gap 7.3 mEq/L (5-15); Aspartate Amino Transferase 19 U/L (14-36); Bilirubin,Total 0.5 mg/dl (0.2-1.3); Blood Urea Nitrogen 45 mg/dl (7-17); Calcium 8.2 mg/dl (8.4-10.2); Carbon Dioxide 25 mmol/L (22.0-30.0); Chloride 107 mmol/L (98-107); Creatinine Clearance Estimated 28 mL/min (50-200); Estimated Glomerular Filt Rate 19 ml/min (>60); GFR (African American) 23 ML/MIN (>60); Globulin 2.7 g/dL (1.3-3.2); Glucose 238 mg/dl (74-100); Lipase 72 U/L (23-300); Potassium 3.3 mmoL/L (3.5-5.1); Sodium 136 mmol/L (136-145); Total Protein,Serum 5.8 g/dl (6.3-8.2)
--- NOTE | 2024-11-23 21:27 | HMH.EDGENADL ---
Discharge Plan Disposition Patient Disposition: Admitted Condition: Good Prescriptions Prescriptions: No Action nifedipine 90 mg tablet extended release 90 mg PO DAILY Qty: 30 2RF hydralazine 50 mg tablet 50 mg PO TID Qty: 90 2RF aspirin [Adult Aspirin Regimen] 81 mg tablet,delayed release (DR/EC) 81 mg PO DAILY Qty: 30 2RF rosuvastatin [Crestor] 10 mg tablet 10 mg PO DAILY Qty: 30 2RF hydrocodone-acetaminophen 7.5-325 mg tablet 1 tab PO Q8H PRN (Reason: pain) Qty: 90 0RF gabapentin 400 mg capsule 400 mg PO TID Qty: 90 2RF bumetanide 1 mg tablet See Rx Instructions .ROUTE .COMPLEX Qty: 180 1RF Dose Instruction: TAKE 3 TABLETS BY MOUTH 2 TIMES A DAY Rx Instructions: TAKE 3 TABLETS BY MOUTH 2 TIMES A DAY clonazepam 0.5 mg tablet 0.5 mg PO BID PRN (Reason: anxiety) Qty: 60 0RF insulin lispro [Humalog KwikPen Insulin] 100 unit/mL insulin pen 0 - 14 unit SQ TIDWMEAL Qty: 10 10RF Rx Instructions: Per home sliding scale If blood sugar 151-200 take 4 units short acting insulin If blood sugar 200-250 take 8 units short acting insulin If blood sugar 251-300 take 12 units short acting insulin If blood sugar 301-350 take 14 units short acting insulin If blood sugar greater than 350 take 14 units insulin and call physician for further instructions. levothyroxine 88 mcg tablet 88 mcg PO DAILY spironolactone 50 mg tablet 50 mg PO DAILY Patient Comments: TAKE ONE TABLET BY MOUTH ONCE A DAY WITH FOOD insulin glargine [Lantus Solostar U-100 Insulin] 100 unit/mL (3 mL) insulin pen 22 unit SQ BID Qty: 10 10RF Referrals Follow up/Referrals: Provider,Referral, MD [Primary Care Provider] - See instructions Clinical Impressions Clinical Impression: Stercoral colitis, Hypertension, Fecal impaction, Anasarca, Acute UTI Instructions Patient Instructions: DI for Acute Abdominal Pain Print Language Print Language: Bengali Discharge ED Provider: Melinda Adamson General Adult HPI General Chief complaint: Abdominal Pain Stated complaint: constipation Time Seen by Provider: 11/23/24 20:46 Mode of Arrival: EMS Source of Information: Patient Description of Symptoms (Recalled from ER Triage Doc. by RN): Pt reports constipation with 9/10 pain. Pt states nausea and last BM was approx 1 week ago. History of Present Illness HPI narrative: This patient is a 73-year-old female with a history of obesity, type 2 diabetes, hypertension, hyperlipidemia, CKD, hypothyroidism, CHF, peripheral edema on Bumex presenting to the emergency department for evaluation with concern for abdominal pain that is all over and 9 out of 10, nausea, and severe constipation. Patient notes that she has not had a bowel movement in over a week. She states that the only thing she is tried at home is Dulcolax, no MiraLAX, enemas, suppositories, or anything else tried at home. She denies fevers, cough, congestion. She does note that her leg swelling has been a little bit worse than normal as of late and her PCP is increased her Bumex because of this. No other concerns or complaints noted at this time. She arrives by EMS who noted she was stable en route. Related Data Home Medications ?Medication ?Instructions ?Recorded ?Confirmed levothyroxine 88 mcg tablet 88 mcg PO DAILY 07/26/24 11/16/24 spironolactone 50 mg tablet 50 mg PO DAILY 10/25/24 11/16/24 Previous Rx's ?Medication ?Instructions ?Recorded insulin lispro 100 unit/mL 0 - 14 unit (0 - 0.14 mL) SQ 12/14/22 subcutaneous pen (Humalog KwikPen TIDWMEAL Diabetes #10 mL (U-100) Insulin) gabapentin 400 mg capsule 400 mg PO TID #90 caps 10/14/24 hydralazine 50 mg tablet 50 mg PO TID #90 tabs 10/20/24 nifedipine 90 mg tablet,extended 90 mg PO DAILY #30 tabs 10/20/24 release insulin glargine 100 unit/mL (3 22 unit (0.22 mL) SQ BID Diabetes 10/25/24 mL) subcutaneous pen (Lantus #10 mL Solostar U-100 Insulin) aspirin 81 mg tablet,delayed 81 mg PO DAILY #30 tabs 10/28/24 release (Adult Aspirin Regimen) rosuvastatin 10 mg tablet (Crestor) 10 mg PO DAILY #30 tabs 10/28/24 bumetanide 1 mg tablet See Rx Instructions .Route 11/09/24 .COMPLEX #180 tabs clonazepam 0.5 mg tablet 0.5 mg PO BID PRN anxiety #60 tabs 11/16/24 hydrocodone 7.5 mg-acetaminophen 1 tab PO Q8H PRN pain #90 tabs 11/16/24 325 mg tablet Allergies Allergy/AdvReac Type Severity Reaction Status Date / Time moxifloxacin Allergy Severe S-ANAPHYLAX Verified 11/17/24 22:20 IS Sulfa (Sulfonamide Allergy Mild NA-NAUSEA/V Verified 11/17/24 22:20 Antibiotics) OMITING atorvastatin AdvReac Severe Other Verified 11/17/24 22:20 [facility] Disclaimer: The information contained in this section may have been updated after the patient was seen, as this information can be updated by other users. Medical History Callus of foot Edema Hypervolemia Leukocytosis UTI (urinary tract infection) Urinary tract infectious disease Sepsis without septic shock Noncompliance Acute kidney injury superimposed on chronic kidney disease Diabetic foot ulcer Sinusitis Hyperkalemia Urinary tract infection Hyperkalemia High anion gap metabolic acidosis Renal failure Falls frequently Viral URI with cough Skin infection, bacterial Avulsed toenail Ulcer of right great toe due to diabetes mellitus Frequent falls Statin intolerance Hyperlipidemia Bradycardia Syncope and collapse Syncope Falls Neuropathy Osteopenia Onychodystrophy Pain of toe of right foot Fracture of second toe, right, closed Edema of toe Acquired hammer toe Closed rib fracture Fall Hyperglycemia due to type 2 diabetes mellitus Bacteremia due to Klebsiella pneumoniae UTI due to Klebsiella species Gram-negative bacteremia DKA (diabetic ketoacidoses) Hyperglycemia due to type 2 diabetes mellitus CLL (chronic lymphocytic leukemia) History of hypertension Diabetes mellitus Surgical History H/O lithotripsy History of cholecystectomy Family History Other Cancer Congestive heart failure (CHF) Heart disease Lymphoma Social History Smoking Status: Never smoker alcohol intake: never substance use type: denies use current occupational status: retired Travel in the last 8 weeks?: None household members: none housing: house caffeine: Yes Have you lived/traveled outside [place] in past 30 days?: No Contact w/someone who lives/traveled outside [place] past 30 days?: No Exposure to someone with infectious disease in past 14 days?: No Do you have a fever (greater than 100.4 F or 38 C)?: No Have you tested positive for COVID-19?: No Exposed to someone with COVID-19 in past 14 days?: No Do you have a sore throat?: No Do you have a cough?: No Do you have any weakness?: No Do you have any diarrhea?: No Are you experiencing any unusual bleeding?: No Do you have any muscle aches/pain?: No Do you have any abdominal pain?: No Are you experiencing loss of taste or smell?: No Other Medical History Have you received the Flu Vaccine for this season: No Have you received the Pneumonia Vaccine: No ROS Obtained: Yes All systems reviewed & no additional complaints except as documented Physical Exam General General appearance: alert, in no apparent distress and obese Head Head exam: atraumatic and normocephalic Eye Eye exam: Present normal appearance, PERRL and EOMI ENT ENT exam: Present normal exam, normal oropharynx, mucous membranes moist and normal external ear exam Neck Neck exam: Present normal inspection, full ROM and trachea midline; Absent tenderness Chest Chest inspection: Present normal inspection and symmetric chest wall rise; Absent tenderness Respiratory Respiratory exam: Present normal lung sounds bilaterally; Absent respiratory distress, wheezes, stridor or accessory muscle use Cardiovascular Cardiovascular exam: Present regular rate and normal rhythm Abdominal Exam Abdominal exam: Present soft, distention and tenderness (generalized); Absent guarding Extremities Exam Extremities exam: Present full ROM, normal capillary refill and edema (symmetric BLE edema); Absent tenderness Back Exam Back exam: Present normal inspection and full ROM; Absent tenderness Neurological Exam Neurological exam: Present alert, oriented X3, CN II-XII intact and normal gait; Absent motor sensory deficit Psychiatric Psychiatric exam: Present normal affect and normal mood Skin Skin exam: Present warm and dry Medical Decision Making Medical Records Medical records reviewed: Yes I reviewed the patient's medical records. Screening: Per USPSTF and CDC recommendations, given the prevalence of disease in our region, it is our hospital?s policy to screen for HIV and viral Hepatitis for all patients aged 18 and over and those with ongoing risk factors. Xu Inquiry Pt receiving controlled substance: No Vital Signs: 11/23/24 21:04 Temperature 97.6 F Temperature Source Oral Pulse Rate [Left] 69 Respiratory Rate 16 Blood Pressure [Right Arm] 210/77 H Blood Pressure Mean [Right Arm] 121 Blood Pressure Source [Right Arm] Automatic Cuff Blood Pressure Position [Right Arm] Supine 02 Sat by Pulse Oximetry 98 Oxygen Delivery Method Room Air Lab Data Lab results reviewed: Yes I reviewed the patient's lab results. Lab Results 11/23/24 20:18: WBC 18.0 H, RBC 3.13 L, Hgb 8.6 L, Hct 26.9 L, MCV 85.9, MCH 27.5, MCHC 32.0, RDW 15.3, Plt Count 291, MPV 9.9, Neut % (Auto) 46.3, Lymph % (Auto) 47.7, [place] % (Auto) 3.1, Eos % (Auto) 2.1, Baso % (Auto) 0.4, Neut # (Auto) 8.3 H, Lymph # (Auto) 8.6 H, [place] # (Auto) 0.6, Eos # (Auto) 0.4, Baso # (Auto) 0.1, Total Counted 100, Neutrophils % (Manual) 55, Lymphocytes % (Manual) 39, Monocytes % (Manual) 3, Eosinophils % (Manual) 2, Basophils % (Manual) 1.0, Platelet Estimate Normal, Hypochromasia 1+, Sodium 136, Potassium 3.3 L, Chloride 107, Carbon Dioxide 25, Anion Gap 7.3, BUN 45 H, Creatinine 2.50 H, Estimated Creat Clear 28, Estimated GFR 19 L*, Est GFR ( Amer) 23 L, Glucose 238 H, Calcium 8.2 L, Total Bilirubin 0.5, AST 19, ALT 14, Alkaline Phosphatase 110, NT-Pro-B Natriuret Pep 4950 H, Total Protein 5.8 L, Albumin 3.1 L, Globulin 2.7, Albumin/Globulin Ratio 1.1, Lipase 72 11/23/24 21:37: Lactate 0.6 L 11/23/24 22:38: Urine Color Yellow, Urine Appearance Slightly cloudy, Urine pH 6.0, Ur Specific [place] 1.020, Urine Protein 3+ A, Urine Glucose (UA) 2+, Urine Ketones Negative, Urine Blood 2+ A, Urine Nitrate Negative, Urine Bilirubin Negative, Urine Urobilinogen 0.2, Ur Leukocyte Esterase Negative, Urine RBC 50-100, Urine WBC 50-100, Ur Squamous Epith Cells 20-50, Urine Bacteria 2+ 11/23/24 20:18 11/23/24 20:18 Orders (Tests/Meds): ED MEDICATIONS Discontinued Medications Generic Name Dose Route Start Last Admin Trade Name Freq PRN Reason Stop Dose Admin Bumetanide 2 mg 11/23/24 22:53 11/23/24 23:06 Bumetanide 1mg/4ml Vial IV 11/23/24 22:54 2 mg ONCE ONE Administration Hydralazine HCl 50 mg 11/23/24 22:13 11/23/24 23:23 Hydralazine Hcl 25mg Tablet PO 11/23/24 22:14 50 mg ONCE ONE Administration Piperacillin Sod/Tazobactam 50 mls @ 100 mls/hr 11/23/24 23:12 11/23/24 23:21 Sod 3.375 gm/ Sodium Chloride IV 11/23/24 23:41 100 mls/hr ONCE ONE Administration Lactulose 20 gm 11/23/24 21:58 11/23/24 23:06 Lactulose 20gm/30ml Udc PO 11/23/24 21:59 20 gm ONCE ONE Administration Ondansetron HCl 4 mg 11/23/24 23:06 11/23/24 23:20 Ondansetron 4mg/2ml Vial IV 11/23/24 23:07 4 mg ONCE ONE Administration Potassium Chloride 40 meq 11/23/24 22:13 11/23/24 23:06 Potassium Chloride 20meq Tab PO 11/23/24 22:14 40 meq ONCE ONE Administration ORDERS Category Date Time Status CT abdomen pelvis wo con Stat Cat Scan 11/23/24 21:04 Completed BNP [NT Pro Brain Natriuretic Pep.] Stat Lab 11/23/24 20:18 Completed Complete Blood Count Auto Diff Stat Lab 11/23/24 20:18 Completed Comprehensive Metabolic Panel Stat Lab 11/23/24 20:18 Completed Lactic Acid Stat Lab 11/23/24 21:37 Completed Lipase Stat Lab 11/23/24 20:18 Completed UA [Urinalysis and Microscopic] Stat Lab 11/23/24 22:38 Completed Blood Culture Stat Micro 11/23/24 23:12 Ordered Urine Culture Stat Micro 11/23/24 22:38 Received Medical Decision Narrative: In summary, this patient is a 73-year-old female presenting to the Emergency Department for evaluation of generalized abdominal pain and constipation with no bowel movement in a week. Differential diagnoses considered include but are not limited to constipation, fecal impaction, bowel obstruction, perforation, urinary tract infection, colitis. Ruling out the most morbid conditions drove assessment. It should be noted patient's history includes type 2 diabetes, obesity, hypertension, hyperlipidemia, CKD, CHF which may or may not be at goal therapy. This complicates all aspects of care by increasing patient's risk for morbidity. On exam, the patient is lying in bed in no acute distress with normal vitals on cardiac telemetry. She has mild abdominal distention and generalized tenderness without rebound, guarding, or rigidity. She is well-appearing. She does have symmetric bilateral lower extremity edema, which she states is chronic but slightly worsened than normal. Her PCP is working on this by increasing her Bumex. Workup included CBC, CMP, lipase, lactic acid, urinalysis, CT abdomen pelvis with IV contrast, and EKG given abdominal pain and age, though I doubt cardiac etiology. I independently interpreted CT scan prior to the radiologist read and noted fecal impaction with stercoral colitis. Please see their read for final interpretation. They also note worsening anasarca with left pleural effusion. Labs were obtained that demonstrated elevated BNP, not significantly worse from prior. She does have a leukocytosis and stable anemia as well. Kidney function is around her baseline. Urinalysis is concerning for infection, though it is grossly contaminated with squamous cells. On reassessment, patient is resting comfortably in bed in no acute distress. She is severely hypertensive here, but she had not taken her blood pressure medicine at home, so I did order her oral hydralazine. Given stercoral colitis, she was given enema for disimpaction and cleanout. She is also given oral lactulose. For her urinary tract infection as well as stercoral colitis, I administered IV Zosyn for empiric broad-spectrum antibiotic coverage for gram-negative's. Ultimately, given stercoral colitis, UTI, and worsening anasarca despite Bumex at home, I feel she would benefit from admission for further evaluation and management. I had an interactive discussion with the hospitalist who admitted the patient in stable condition. Critical Care Critical Care Time Critical Care Time: Yes Attestation: On 11/23/24, the high probability of a clinically significant, sudden or life threatening deterioration of the following system(s) required my full and direct attention, intervention and personal management. The time I documented below is in addition to time spent performing reported procedures but includes the following listed in this critical care notation. Total Time Total Critical Care Time: 35
[2024-11-23 21:36] LABS: NT Pro Brain Natriuretic Pep. 4950 pg/mL (0-450)
[2024-11-23 21:58] LABS: Lactic Acid 0.6 mmol/L (0.7-2.1)
[2024-11-23 22:29] LABS: Eosinophils % 2 % (0-3); Lymphocytes % 39 % (10-50); Monocytes % 3 % (2-9); Neutrophils % 55 % (42-76); Total Cells Counted 100
[2024-11-23 22:31] LABS: Hypochromasia 1+; Platelet Estimate Normal
[2024-11-23 22:43] LABS: Microscopic, Urine URINE MICROSCOPIC (MICROSCOPIC)
[2024-11-23 22:46] LABS: Bilirubin,Urine Negative (Negative); Blood, Urine 2+ (Negative); Color,Urine YELLOW (Yellow); Glucose,Urine (UA) 2+ (Negative); Ketones,Urine Negative (Negative); Leukocyte Esterase,Urine Negative (Negative); Nitrate,Urine Negative (Negative); Protein,Urine 3+ (Negative); Urobilinogen,Urine 0.2 EU/dl (0.2)
[2024-11-23 22:47] LABS: Appearance,Urine Slightly Cloudy (Clear)
[2024-11-23] MEDS: LACTULOSE 20GM/30ML UDC 20 GM PO (23:06)
[2024-11-23] MEDS: POTASSIUM CHLORIDE 20MEQ TAB 40 MEQ PO (23:06)
[2024-11-23] MEDS: BUMETANIDE 1MG/4ML VIAL 2 MG IV (23:06)
[2024-11-23 23:09] LABS: Bacteria,Urine 2+ /lpf; RBC,Urine 50-100 #/hpf (0-3); Squamous Epithelial Cell,Urine 20-50 #/hpf (0-5); WBC,Urine 50-100 #/hpf (0-3)
[2024-11-23] MEDS: ONDANSETRON 4MG/2ML VIAL 4 MG IV (23:20)
[2024-11-23] MEDS: PIPERACILLIN/TAZO 3.375 GM in 0.9 % SODIUM CHLORIDE 50 ML IV (23:21)
[2024-11-23] MEDS: HYDRALAZINE HCL 25MG TABLET 50 MG PO (23:23)
[2024-11-24] VITALS (7 sets, daily range): BP systolic 120–189; BP diastolic 49–82; PULSE 60–75; RESP 16–17; TEMP 36.6–36.9; O2SAT 91–97; BMI 31.6; BMI 31.5
--- NOTE | 2024-11-24 00:09 | P.HP_ITS ---
History of Present Illness *Admission Date: 11/24/24 *Reason for visit:: Abdominal pain *History of present illness: 73-year-old female with a history of obesity, type 2 diabetes, hypertension, hyperlipidemia, CKD, hypothyroidism, diastolic CHF, peripheral edema on Bumex presenting to the emergency department for evaluation with concern for abdominal pain that is all over and 9 out of 10, nausea, and severe constipation. Patient notes that she has not diet had a bowel movement in over a week. At home she has tried Dulcolax without success. She denies fevers, cough, congestion. 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 She does endorse significant swelling and dyspnea primarily with exertion but also occasionally at rest. NYHA II/III. Having abdominal distention. Uncertain about compliance with medication particularly her diuretic. She was supposed to see cardiology for peripheral artery testing however felt too bad to make it to her appointment. In the emergency department she MiraLAX. She did not have any bowel movements, prior to transfer upstairs. stercoral colitis diagnosed in the emergency department she received 1 dose of IV Zosyn. EKG sinus bradycardia no ST . deviations History independently obtained. Diagnostic laboratory eval independently interpreted. I reviewed old records. I discussed case with ER physician. [facility] Disclaimer: The information contained in this section may have been updated after the patient was seen, as this information can be updated by other users. Medical History Callus of foot Edema Hypervolemia Leukocytosis UTI (urinary tract infection) Urinary tract infectious disease Sepsis without septic shock Noncompliance Acute kidney injury superimposed on chronic kidney disease Diabetic foot ulcer Sinusitis Hyperkalemia Urinary tract infection Hyperkalemia High anion gap metabolic acidosis Renal failure Falls frequently Viral URI with cough Skin infection, bacterial Avulsed toenail Ulcer of right great toe due to diabetes mellitus Frequent falls Statin intolerance Hyperlipidemia Bradycardia Syncope and collapse Syncope Falls Neuropathy Osteopenia Onychodystrophy Pain of toe of right foot Fracture of second toe, right, closed Edema of toe Acquired hammer toe Closed rib fracture Fall Hyperglycemia due to type 2 diabetes mellitus Bacteremia due to Klebsiella pneumoniae UTI due to Klebsiella species Gram-negative bacteremia DKA (diabetic ketoacidoses) Hyperglycemia due to type 2 diabetes mellitus CLL (chronic lymphocytic leukemia) History of hypertension Diabetes mellitus Surgical History H/O lithotripsy History of cholecystectomy Family History Other Cancer Congestive heart failure (CHF) Heart disease Lymphoma Social History Smoking Status: Never smoker alcohol intake: never substance use type: denies use current occupational status: retired Travel in the last 8 weeks?: None household members: none housing: house caffeine: Yes Have you lived/traveled outside [place] in past 30 days?: No Contact w/someone who lives/traveled outside US past 30 days?: No Exposure to someone with infectious disease in past 14 days?: No Do you have a fever (greater than 100.4 F or 38 C)?: No Have you tested positive for COVID-19?: No Exposed to someone with COVID-19 in past 14 days?: No Do you have a sore throat?: No Do you have a cough?: No Do you have any weakness?: No Do you have any diarrhea?: No Are you experiencing any unusual bleeding?: No Do you have any muscle aches/pain?: No Do you have any abdominal pain?: No Are you experiencing loss of taste or smell?: No Other Medical History Have you received the Flu Vaccine for this season: No Have you received the Pneumonia Vaccine: No Meds Home Medications and Allergies Home Medications ?Medication ?Instructions ?Recorded ?Confirmed ?Type insulin lispro 100 unit/mL 0 - 14 unit (0 - 0.14 mL) SQ 12/14/22 11/16/24 Rx subcutaneous pen (Humalog KwikPen TIDWMEAL Diabetes #10 mL (U-100) Insulin) levothyroxine 88 mcg tablet 88 mcg PO DAILY 07/26/24 11/16/24 History gabapentin 400 mg capsule 400 mg PO TID #90 caps 10/14/24 11/16/24 Rx hydralazine 50 mg tablet 50 mg PO TID #90 tabs 10/20/24 11/16/24 Rx nifedipine 90 mg tablet,extended 90 mg PO DAILY #30 tabs 10/20/24 11/16/24 Rx release insulin glargine 100 unit/mL (3 22 unit (0.22 mL) SQ BID Diabetes 10/25/24 11/16/24 Rx mL) subcutaneous pen (Lantus #10 mL Solostar U-100 Insulin) spironolactone 50 mg tablet 50 mg PO DAILY 10/25/24 11/16/24 History aspirin 81 mg tablet,delayed 81 mg PO DAILY #30 tabs 10/28/24 11/16/24 Rx release (Adult Aspirin Regimen) rosuvastatin 10 mg tablet (Crestor) 10 mg PO DAILY #30 tabs 10/28/24 11/16/24 Rx bumetanide 1 mg tablet See Rx Instructions .Route 11/09/24 11/16/24 Rx .COMPLEX #180 tabs clonazepam 0.5 mg tablet 0.5 mg PO BID PRN anxiety #60 tabs 11/16/24 11/16/24 Rx hydrocodone 7.5 mg-acetaminophen 1 tab PO Q8H PRN pain #90 tabs 11/16/24 11/16/24 Rx 325 mg tablet New Prescriptions to Start Prescriptions: Allergies Allergy/AdvReac Type Severity Reaction Status Date / Time moxifloxacin Allergy Severe S-ANAPHYLAX Verified 11/17/24 22:20 IS Sulfa (Sulfonamide Allergy Mild NA-NAUSEA/V Verified 11/17/24 22:20 Antibiotics) OMITING atorvastatin AdvReac Severe Other Verified 11/17/24 22:20 Exam Data for Last 24 hours Vital signs and Labs for Last 24 Hours: Temp Pulse Resp BP Pulse Ox O2 Del Method 97.9 F 63 16 183/75 H 98 Room Air 11/24/24 00:03 11/24/24 00:03 11/24/24 00:03 11/24/24 00:03 11/23/24 21:04 11/24/24 00:03 Laboratory Results - last 24 hr 11/23/24 20:18: WBC 18.0 H, RBC 3.13 L, Hgb 8.6 L, Hct 26.9 L, MCV 85.9, MCH 27.5, MCHC 32.0, RDW 15.3, Plt Count 291, MPV 9.9, Neut % (Auto) 46.3, Lymph % (Auto) 47.7, [place] % (Auto) 3.1, Eos % (Auto) 2.1, Baso % (Auto) 0.4, Neut # (Auto) 8.3 H, Lymph # (Auto) 8.6 H, [place] # (Auto) 0.6, Eos # (Auto) 0.4, Baso # (Auto) 0.1, Total Counted 100, Neutrophils % (Manual) 55, Lymphocytes % (Manual) 39, Monocytes % (Manual) 3, Eosinophils % (Manual) 2, Basophils % (Manual) 1.0, Platelet Estimate Normal, Hypochromasia 1+, Sodium 136, Potassium 3.3 L, Chloride 107, Carbon Dioxide 25, Anion Gap 7.3, BUN 45 H, Creatinine 2.50 H, Estimated Creat Clear 28, Estimated GFR 19 L*, Est GFR ( Amer) 23 L, Glucose 238 H, Calcium 8.2 L, Total Bilirubin 0.5, AST 19, ALT 14, Alkaline Phosphatase 110, NT-Pro-B Natriuret Pep 4950 H, Total Protein 5.8 L, Albumin 3.1 L, Globulin 2.7, Albumin/Globulin Ratio 1.1, Lipase 72 11/23/24 21:37: Lactate 0.6 L 11/23/24 22:38: Urine Color Yellow, Urine Appearance Slightly cloudy, Urine pH 6.0, Ur Specific [place] 1.020, Urine Protein 3+ A, Urine Glucose (UA) 2+, Urine Ketones Negative, Urine Blood 2+ A, Urine Nitrate Negative, Urine Bilirubin Negative, Urine Urobilinogen 0.2, Ur Leukocyte Esterase Negative, Urine RBC 50- 100, Urine WBC 50-100, Ur Squamous Epith Cells 20-50, Urine Bacteria 2+ I & O for Last 24 hours: Intake & Output 11/21/24 11/22/24 11/23/24 11/24/24 23:59 23:59 23:59 23:59 Weight 92.079 kg Constitutional Constitutional: no acute distress *Routine HEENT Exam Head: Present normocephalic Eye: Present EOMI and PERRL ENT: Present mucous membranes moist *Routine Neck Exam Neck: Present supple; Absent lymphadenopathy *Routine Respiratory Exam Respiratory: Present CTA bilaterally *Routine Cardiovascular Exam Cardiovascular: Present RRR *Routine Abdominal Exam Abdominal: Present soft and normoactive bowel sounds; Absent tenderness *Routine Rectal Exam Rectal:: deferred *Routine Genitalia Exam Genitalia:: deferred *Routine Extremities Exam Extremities: Absent cyanosis, clubbing or edema *Routine Skin Exam Skin: Present warm; Absent rash *Routine Neurological Exam Neurological: Present alert and oriented X3 Assessment and Plan *Assessment and plan (1) Acute UTI: Status: Acute Category: Medical Code(s): N39.0 - Urinary tract infection, site not specified (2) Anasarca: Status: Acute Category: Medical Code(s): R60.1 - Generalized edema (3) Fecal impaction: Status: Acute Category: Medical Code(s): K56.41 - Fecal impaction (4) Hypertension: Status: Acute Category: Medical Code(s): I10 - Essential (primary) hypertension (5) Stercoral colitis: Status: Acute Category: Medical Code(s): K52.89 - Other specified noninfective gastroenteritis and colitis (6) Fall: Status: Acute Category: Medical Code(s): W19.XXXA - Unspecified fall, initial encounter (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 Category: Medical Code(s): E11.59 - Type 2 diabetes mellitus with other circulatory complications (8) Hyperlipidemia: Status: Chronic Category: Medical Code(s): E78.5 - Hyperlipidemia, unspecified (9) Diastolic heart failure: Status: Acute Category: Medical Code(s): I50.30 - Unspecified diastolic (congestive) heart failure Plan Grade 2 diastolic dysfunction - Impaired relaxation with LA enlargement for recent echo with normal LV systolic function - Elevated BNP - Resume diuretics - Would benefit from weight loss, consider Ozempic outpatient Leukocytosis Stercoral colitis -Received Zosyn in ER - Continue antibiotics Constipation - Enema - MiraLAX Hypertension - Discontinue clonidine - Discontinue hydralazine - Continue nifedipine - Spironolactone contraindicated due to CKD, creatinine greater than 2.5, discontinue Normocytic anemia, chronic - Monitor - Iron panel Hypokalemia - Replete CKD - At baseline - Monitor Neuropathy - Gabapentin Hypothyroid - Synthroid Anxiety - Continue home clonazepam Hyperlipidemia -Crestor, increased to high intensity 20 mg
--- NOTE | 2024-11-24 00:33 | PC.NURSE ---
Patient arrived to floor via stretcher from ED at 00:32.
--- NOTE | 2024-11-24 01:25 | PC.NURSE ---
Pt's med rec could not be completed due to pt not knowing for sure on certain meds. Some medication required RX instructions, which nurse was told not to place a comment in this section.
--- NOTE | 2024-11-24 03:57 | PC.WOUNDNOTE ---
top left foot top right foot bottom right foot bottom left foot
--- NOTE | 2024-11-24 06:33 | PC.NURSE ---
New Admit. Ox4, RA. Pt is having loose bowel movements due to medication for fecal impaction. Pt had soap suds enema which was effective. Pt had wounds, pics in chart. Plan of care ongoing.
[2024-11-24 06:45] LABS: Basophils % 0.2 % (0.1-2.0); Eosinophils % 0.1 % (0.1-12.0); Hematocrit 26.6 % (37.0-47.0); Hemoglobin 8.5 g/dL (12.2-16.2); Immature Granulocytes % 0.6 %; Lymphocytes # 6.8 K/mm3 (0.7-4.5); Lymphocytes % 40.4 % (10-50); Mean Corpuscular Hemoglobin 27.2 pg (27.0-31.2); Mean Corpuscular Volume 85.3 fl (81-99); Mean Platelet Volume 9.7 fl (7.4-10.4); Monocytes # 0.5 K/mm3 (0.1-1.0); Monocytes % 2.9 % (1.7-9.3); Neutrophils # 9.3 K/mm3 (1.8-7.8); Neutrophils % 55.8 % (37.0-80.0); Nucleated Red Blood Cells # 0 10^3/uL; Nucleated Red Blood Cells % 0 %; Platelet Count 280 K/mm3 (142-424); Red Blood Count 3.12 M/mm3 (4.20-5.40); Red Cell Distribution Width 15.1 % (11.5-17.5); Red Cell Distribution Width-SD 46.5 fL; White Blood Count 16.7 K/mm3 (4.8-10.8)
[2024-11-24 07:07] LABS: MANUAL DIFFERENTIAL MANUAL DIFFERENTIAL (MANUAL DIFF)
[2024-11-24 07:25] LABS: Alanine Aminotransferase 11 U/L (12-78); Albumin Level 2.8 g/dl (3.5-5.0); Albumin/Globulin Ratio 1.1 (1.1-1.8); Alkaline Phosphatase 106 U/L (38-126); Anion Gap 8.9 mEq/L (5-15); Aspartate Amino Transferase 17 U/L (14-36); Bilirubin,Total 0.5 mg/dl (0.2-1.3); Blood Urea Nitrogen 43 mg/dl (7-17); Calcium 8.2 mg/dl (8.4-10.2); Carbon Dioxide 23 mmol/L (22.0-30.0); Chloride 109 mmol/L (98-107); Chol/HDL Ratio 6.3 (1-3.5); Cholesterol 201 mg/dl (140-200); Creatinine Clearance Estimated 30 mL/min (50-200); Estimated Glomerular Filt Rate 20 ml/min (>60); GFR (African American) 24 ML/MIN (>60); Globulin 2.5 g/dL (1.3-3.2); Glucose 253 mg/dl (74-100); HDL Cholesterol 32 mg/dl (40-60); Magnesium 1.5 mg/dl (1.6-2.3); Phosphorous 3.9 mg/dl (2.5-4.5); Potassium 3.9 mmoL/L (3.5-5.1); Sodium 137 mmol/L (136-145); Total Protein,Serum 5.3 g/dl (6.3-8.2); Triglycerides 144 mg/dl (30-150); VLDL Cholesterol 29 mg/dL (0-40)
[2024-11-24 07:36] LABS: Direct LDL Cholesterol 140.87 mg/dL (100-129)
[2024-11-24 09:17] LABS: Lymphocytes % 31 % (10-50); Monocytes % 5 % (2-9); Neutrophils % 64 % (42-76); Ovalocytes 1+; Platelet Estimate Normal; Total Cells Counted 100
[2024-11-24] MEDS: DOCUSATE SODIUM 100 MG CAPSULE PO (09:54)
[2024-11-24] MEDS: NIFEdipine XL 30MG TABLET 90 MG PO (09:54)
[2024-11-24] MEDS: BUMETANIDE 1MG/4ML VIAL 3 MG IV ×2 (09:55→18:28)
[2024-11-24] MEDS: GABAPENTIN 400MG CAPSULE 400 MG PO ×3 (09:55→21:03)
[2024-11-24] MEDS: LEVOTHYROXINE 88MCG (0.088MG) TAB 88 MCG PO (09:55)
[2024-11-24] MEDS: HEPARIN SODIUM 5,000 UNIT/ML VIAL 5000 UNIT SUBCUT ×3 (09:55→21:03)
[2024-11-24] MEDS: ASPIRIN EC 81MG TABLET 81 MG PO (09:55)
--- NOTE | 2024-11-24 09:57 | HMH.PTEV ---
Physical Therapy Evaluation Rehab PT IP Evaluation Start: 11/24/24 09:32 Freq: ONCE Status: Active Protocol: Document 11/24/24 09:50 JO ANN (Rec: 11/24/24 09:56 JO ANN [id number]) Subjective/History History History Per H&P: 73-year-old female with a history of obesity, type 2 diabetes, hypertension, hyperlipidemia, CKD, hypothyroidism, diastolic CHF, peripheral edema on Bumex presenting to the emergency department for evaluation with concern for abdominal pain that is all over and 9 out of 10, nausea, and severe constipation. Patient notes that she has not diet had a bowel movement in over a week. Subjective Subjective Pt reports she lives with her son and DIL in a single-story home with one ALICE. Pt normally uses a RW and is IND with mobility. Pt reports she thinks she needs to be cleaned up. New diagnosis of cancer in past 12 No months? [facility] How much help from another person do you currently need... Turning from your back to your side A little while in a flat bed without using bedrails? Moving from lying on back to sitting on A lot the side of a flat bed without using bedrails? Moving to and from a bed to a chair ( A lot including a wheelchair)? Standing up from a chair using your arms A lot ? (e.g., wheelchair, bedside chair) Walking in hospital room? A lot Climbing 3-5 steps with a railing? A lot Mobility Score [address] [facility] Mobility Calculator Mobility 4 Move to chair/ commode Rehab PT IP Eval Objective Appearance Patient Behavior Appropriate,Cooperative Patient Orientation Person,Birthday,Situation Difficulty following instructions none Speech Pattern Clear Ambulation Patient Able to Ambulate No Balance Ability to Arise Able, uses arms to help Sitting Balance Steady, safe Standing Balance Unsteady Transfers Bed Transfer Ability Moderate x 1 (50% assist) Sit to Stand Bed Transfer Ability Moderate x 1 (50% assist) Rehab PT IP prob,goals,plan Problems Date of Evaluation: 11/24/24 PT IP Problems Bed Mobility,Transfers,Gait, Balance,Self care,Safety Rehab Potential Rehab Potential Good Plan PT Intervention Plan Bed Mobility,Transfers,Gait, Balance,Self care,Safety, Therapeutic Exercise Other Intervention Plan 1-2 times PT Plan Frequency Daily Duration LOS Discharge Goals Bed Transfer Ability Minimal x 1 (25% assist) Sit to Stand Chair Transfer Ability Minimal x 1 (25% assist) Discharge Plan PT Discharge Plan Initial physical therapy evaluation performed. Patient presents below baseline at this time in functional mobility, transfers, and strength. Pt not safe to return home at this time d/t current level of functional mobility. PT recommending short-term rehabilitation stay upon d/c from [facility]. Pt would benefit from skilled PT while at [facility] to prevent further functional decline and maximize safety with mobility. Pt found incontinent of bowels . MD notified of pt's bowel movement d/t history of severe constipation. Eval Complexity Eval Charge Codes 62947 - Moderate Complexity PHYSICIAN CERTIFICATION: I certify the specified therapy services for Michelle Lacho Rob are required, authorized, and reviewed every 30 days.
[2024-11-24] MEDS: INSULIN GLARGINE 100 UNITS/ML 3ML FLEXPEN 22 UNIT SUBCUT ×2 (09:59→21:03)
--- NOTE | 2024-11-24 10:10 | SW/DCPLANNER ---
Addendum entered by [facility] 11/26/24 11:22: I have updated David mon/ [facility] that patient will discharge SNF level of care tomorrow pending no setbacks. Per David auth is good till 11/29. Addendum entered by [facility] 11/25/24 12:33: Patient has been approved SNF level of care. Per MD patient may not be ready for discharge till tomorrow. I will continue to update David mon/ [facility]. Addendum entered by [facility] 11/25/24 07:26: Per David mon/ [facility] auth was started 11/24. Addendum entered by [facility] 11/24/24 11:10: Patient information has been faxed to [facility]. Original Note: I spoke w/ this patient regarding plans once medically stable for discharge. PT/OT evaluated patient and recommended SNF level of care. Patient is agreeable to placement and prefers [place]. Patient stated that if [facility] can not accept she would be agreeable to placement at [facility] or [facility]. I will continue to follow up w/ patient, MD and facilities. Per MD patient could be ready for discharge tomorrow pending no setbacks.
--- NOTE | 2024-11-24 10:12 | HMH.OTEV ---
OT Inpatient Evaluation Rehab OT IP Evaluation Start: 11/24/24 09:32 Freq: ONCE Status: Active Protocol: Document 11/24/24 10:01 ALYSON (Rec: 11/24/24 10:12 ALYSON [id number]) Rehab OT IP Assessment Subjective History Per H&P: 73-year-old female with a history of obesity, type 2 diabetes, hypertension, hyperlipidemia, CKD, hypothyroidism, diastolic CHF, peripheral edema on Bumex presenting to the emergency department for evaluation with concern for abdominal pain that is all over and 9 out of 10, nausea, and severe constipation. Patient notes that she has not diet had a bowel movement in over a week. Subjective I think I need to be changed. Pt was supine in bed when therapy arrived. Pt was orient x3. pt reported they live with son and daughter in law. pt reported they live in a single story home and have one step with no hand rail to enter home. pt reported they use a walker to complete transfers for functional mobility tasks. pt reported they are going to get grab bars installed in shower and toilet. pt reported they have a shower chair. pt reported they do no drive per DIL request and not having a car. pt reported son and DIL complete IADL tasks for pt such as cleaning and cooking. pt reported they need to be changed and agreed to complete a sit to stand transfer. pt went from supine to EOB with min assist. pt completed sit to stand transfer with walker with mod A. Pt able to tolerate static standing balance while therapy and nursing came to change pt. pt demo incontinence of bowel and did not know they had a bowel movement. pt then reported they needed to sit back on EOB . pt reported they felt like they were going again and demo another bowel movement while at EOB. At that time pt then reported they did not feel well and appeared pale. nursing and therapy moved pt from EOB to supine in bed and therapy got pt water. pt left by therapy supine in bed with nursing to perform bed change and bath while in supine in bed. Objective Patient Orientation Person,Place,Birthday Bed Mobility bed mobility-scooting,bed mobility - supine/sit Assist Level Minimal x 1 (25% assist) Transfer Training Sit/Stand Transfer Assist Level Moderate x 1 (50% assist) Chair Transfer Assistive Devices Standard Walker Bathing Ability Maximum Assistance Performing Toilet Hygiene Ability Maximum Assistance Decrease in Endurance Yes Rehab OT IP prob,goals,plan Problems Date of Evaluation: 11/24/24 OT IP Problems Bed Mobility,Transfers,Balance ,Self care,Safety Rehab Potential Rehab Potential Good Equipment Needs Assistive Devices Standard Walker Plan OT intervention Plan Bed Mobility,Transfers,Balance ,Self care,Safety,Therapeutic Exercise OT Plan Frequency Daily Duration LOS Discharge Goals Bed Mobility Ability Standby Assistance Sit to Stand Chair Transfer Ability Minimal x 1 (25% assist) Chair Transfer Assistive Devices Standard Walker Self care skills fully toilet trained,dressing/ undressing independently Feeding Ability Assist with Tray Set Up Performing Toilet Hygiene Ability Standby Assistance Overall Commode/Toilet Transfer Ability Standby Assistance Commode/Toilet Transfer Technique Sit to/from Ambulatory Commode/Toilet Transfer Assistive Raised Toilet Seat,Grab Bars Devices Decrease in Endurance No Discharge Plan OT Discharge Plan At this time, pt would benefit from skilled OT services and interventions to address functional limitations in occupational performance while being admitted at [facility]. Pt would also benefit from skilled OT services and interventions with Rehab to improve strength and endurance and improve functional occupational performance to meet PLOF of baseline. Eval Complexity Eval Charge Codes 67594 - Moderate Complexity PHYSICIAN CERTIFICATION: I certify the specified therapy services for Michelle Rivas are required, authorized, and reviewed every 30 days.
[2024-11-24 11:18] LABS: POC Glucose,Bedside 306 (70-110)
[2024-11-24] MEDS: MAGNESIUM SULFATE IN WATER 2 GM/50 ML PIGGYBACK IV ×2 (11:54→12:48)
--- NOTE | 2024-11-24 13:20 | HMH.PHAINT1 ---
Pharmacy Intervention Comments: MEDICATION RECONCILIATION COMPLETED ON PATIENT USING EXTERNAL FILL HISTORY FROM PHARMACY, LIST FROM PCP OFFICE, AND DISCHARGE SUMMARY FROM PREVIOUS ADMISSION. -RITO RIOS, PHARMD
[2024-11-24] MEDS: ATORVASTATIN 20MG TABLET 20 MG PO (21:03)
[2024-11-24] MEDS: humaLOG 100 UNITS/ML 10ML VIAL (SSI) SUBCUT (21:03)
[2024-11-25] VITALS (7 sets, daily range): BP systolic 100–154; BP diastolic 42–82; PULSE 66–83; RESP 16–18; TEMP 36.6–37.5; O2SAT 94–97; BMI 30.8
[2024-11-25 05:49] LABS: POC Glucose,Bedside 100 (70-110)
[2024-11-25] MEDS: LEVOTHYROXINE 88MCG (0.088MG) TAB 88 MCG PO (06:00)
[2024-11-25 06:58] LABS: Alanine Aminotransferase 10 U/L (12-78); Albumin Level 2.3 g/dl (3.5-5.0); Albumin/Globulin Ratio 0.9 (1.1-1.8); Alkaline Phosphatase 86 U/L (38-126); Anion Gap 6.2 mEq/L (5-15); Aspartate Amino Transferase 15 U/L (14-36); Bilirubin,Total 0.4 mg/dl (0.2-1.3); Blood Urea Nitrogen 47 mg/dl (7-17); Calcium 7.8 mg/dl (8.4-10.2); Carbon Dioxide 25 mmol/L (22.0-30.0); Chloride 108 mmol/L (98-107); Creatinine Clearance Estimated 24 mL/min (50-200); Estimated Glomerular Filt Rate 16 ml/min (>60); GFR (African American) 19 ML/MIN (>60); Globulin 2.5 g/dL (1.3-3.2); Glucose 83 mg/dl (74-100); Magnesium 1.8 mg/dl (1.6-2.3); Potassium 3.2 mmoL/L (3.5-5.1); Sodium 136 mmol/L (136-145); Total Protein,Serum 4.8 g/dl (6.3-8.2)
[2024-11-25 07:08] LABS: Basophils # 0.1 K/mm3 (0-0.2); Basophils % 0.3 % (0.1-2.0); Eosinophils # 0.2 Kmm3 (0.0-0.4); Eosinophils % 1.3 % (0.1-12.0); Hematocrit 23.7 % (37.0-47.0); Immature Granulocytes # 0.06 10^3uL; Immature Granulocytes % 0.4 %; Lymphocytes # 6.9 K/mm3 (0.7-4.5); Lymphocytes % 42.5 % (10-50); Mean Corpuscular HGB Conc 32.1 g/dL (31.8-35.4); Mean Corpuscular Hemoglobin 27.5 pg (27.0-31.2); Mean Corpuscular Volume 85.9 fl (81-99); Mean Platelet Volume 9.8 fl (7.4-10.4); Monocytes # 0.8 K/mm3 (0.1-1.0); Monocytes % 4.9 % (1.7-9.3); Neutrophils # 8.2 K/mm3 (1.8-7.8); Neutrophils % 50.6 % (37.0-80.0); Nucleated Red Blood Cells # 0 10^3/uL; Nucleated Red Blood Cells % 0 %; Platelet Count 280 K/mm3 (142-424); Red Blood Count 2.76 M/mm3 (4.20-5.40); Red Cell Distribution Width 15.7 % (11.5-17.5); Red Cell Distribution Width-SD 49.1 fL; White Blood Count 16.2 K/mm3 (4.8-10.8)
[2024-11-25 07:26] LABS: MANUAL DIFFERENTIAL MANUAL DIFFERENTIAL (MANUAL DIFF)
[2024-11-25 08:19] LABS: Eosinophils % 1 % (0-3); Lymphocytes % 28 % (10-50); Monocytes % 2 % (2-9); Neutrophils % 69 % (42-76); Total Cells Counted 100
[2024-11-25 08:20] LABS: Platelet Estimate Normal
[2024-11-25 08:23] LABS: Anisocytosis 1+; Ovalocytes 1+
[2024-11-25] MEDS: ASPIRIN EC 81MG TABLET 81 MG PO (09:02)
[2024-11-25] MEDS: GABAPENTIN 400MG CAPSULE 400 MG PO ×3 (09:02→20:56)
[2024-11-25] MEDS: HEPARIN SODIUM 5,000 UNIT/ML VIAL 5000 UNIT SUBCUT ×3 (09:03→20:57)
[2024-11-25] MEDS: INSULIN GLARGINE 100 UNITS/ML 3ML FLEXPEN 22 UNIT SUBCUT ×2 (09:05→20:57)
[2024-11-25] MEDS: DOCUSATE SODIUM 100 MG CAPSULE PO (09:06)
[2024-11-25] MEDS: BUMETANIDE 1MG/4ML VIAL 3 MG IV ×2 (09:06→16:59)
[2024-11-25 09:23] LABS: Hemoglobin 7.8 g/dL (12.2-16.2)
[2024-11-25 09:37] LABS: POC Glucose,Bedside 154 (70-110)
[2024-11-25] MEDS: NIFEdipine XL 30MG TABLET 90 MG PO (10:36)
[2024-11-25 10:48] LABS: POC Glucose,Bedside 137 (70-110)
[2024-11-25] MEDS: NITROFURANTOIN 100MG CAPSULE 100 MG PO ×3 (12:37→20:57)
[2024-11-25 16:54] LABS: POC Glucose,Bedside 192 (70-110)
[2024-11-25] MEDS: humaLOG 100 UNITS/ML 10ML VIAL (SSI) SUBCUT ×2 (16:59→20:57)
--- NOTE | 2024-11-25 17:42 | PC.NURSE ---
Patient is A&Ox4. Vital signs stable tolerating room air. IV bumex administered per AUG. FSBS glucose treated per AUG. No complaints of pain this shift. Patient worked with PT today and ambulated to the bathroom with a walker and assistance. Plan for SNF at discharge. Pt sitting up in bed with no further needs voiced at this time. Call light within reach
--- NOTE | 2024-11-25 19:04 | P.PN_ITS ---
Subjective *Date: 11/25/24 *Time: 23:13 Interval history: States she is feeling somewhat better. Still having loose stools. No longer dealing with constipation. Urine culture remains negative. Having some response to diuretics, voiding independently however, edema still present but improving. Stable on room air. No nausea or vomiting. Tolerating p.o. intake Medical Exam Vital signs and Labs for Last 24 Hours: Vital Signs Temp Pulse Resp BP Pulse Ox O2 Del Method 11/25/24 18:53 Room Air 11/25/24 17:00 Room Air 11/25/24 15:36 98 F 74 16 130/53 L 96 Room Air 11/25/24 15:00 Room Air 11/25/24 13:00 Room Air 11/25/24 13:00 Room Air 11/25/24 12:32 99.5 F 83 17 154/82 H 97 Room Air 11/25/24 11:00 Room Air 11/25/24 10:35 70 18 127/51 L 11/25/24 09:00 Room Air 11/25/24 08:00 Room Air 11/25/24 07:44 98.1 F 66 16 116/45 L 96 Room Air 11/25/24 06:45 Room Air 11/25/24 05:00 Room Air 11/25/24 04:00 98.4 F 67 16 107/42 L 94 L Room Air 11/25/24 03:00 Room Air 11/25/24 00:59 Room Air 11/25/24 00:00 98.3 F 68 16 100/53 L 95 Room Air 11/24/24 23:00 Room Air 11/24/24 21:00 Room Air 11/24/24 20:00 Room Air 11/24/24 20:00 98.4 F 75 16 120/49 L 94 L Room Air Intake and Output 11/25/24 11/25/24 11/25/24 07:59 15:59 23:59 Intake Total 240 / 970 370 / 970 360 / 970 Output Total 0 / 0 0 / 0 Balance 240 / 970 370 / 970 360 / 970 Intake: Intake, Oral Amount 240 / 970 370 / 970 360 / 970 Output: Output, Urine Amount 0 / 0 0 / 0 Other: Number of Unmeasured Voids 1 1 1 Number of Bowel Movements 1 1 1 Weight 92.278 kg Patient Weight 11/25/24 23:59 Weight 92.278 kg Laboratory Results - last 24 hr 11/23/24 22:38: Urine Color Yellow, Urine Appearance Slightly cloudy, Urine pH 6.0, Ur Specific [place] 1.020, Urine Protein 3+ A, Urine Glucose (UA) 2+, Urine Ketones Negative, Urine Blood 2+ A, Urine Nitrate Negative, Urine Bilirubin Negative, Urine Urobilinogen 0.2, Ur Leukocyte Esterase Negative, Urine RBC 50- 100, Urine WBC 50-100, Ur Squamous Epith Cells 20-50, Urine Bacteria 2+ 11/25/24 05:42: POC Glucose 100 11/25/24 06:15: WBC 16.2 H, RBC 2.76 L, Hgb 7.8 L, Hct 23.7 L, MCV 85.9, MCH 27.5, MCHC 32.1, RDW 15.7, Plt Count 280, MPV 9.8, Neut % (Auto) 50.6, Lymph % (Auto) 42.5, [place] % (Auto) 4.9, Eos % (Auto) 1.3, Baso % (Auto) 0.3, Neut # (Auto) 8.2 H, Lymph # (Auto) 6.9 H, [place] # (Auto) 0.8, Eos # (Auto) 0.2, Baso # (Auto) 0.1, Total Counted 100, Neutrophils % (Manual) 69, Lymphocytes % (Manual) 28, Monocytes % (Manual) 2, Eosinophils % (Manual) 1, Differential Comment , Platelet Estimate Normal, Anisocytosis 1+, Ovalocytes 1+, Sodium 136, Potassium 3.2 L, Chloride 108 H, Carbon Dioxide 25, Anion Gap 6.2, BUN 47 H, Creatinine 2.90 H D, Estimated Creat Clear 24, Estimated GFR 16 L*, Est GFR ( Amer) 19 L* D, Glucose 83 D, Calcium 7.8 L, Magnesium 1.8 D, Total Bilirubin 0.4, AST 15, ALT 10 L, Alkaline Phosphatase 86, Total Protein 4.8 L, Albumin 2.3 L D, Globulin 2.5, Albumin/Globulin Ratio 0.9 L 11/25/24 09:02: POC Glucose 154 H 11/25/24 10:41: POC Glucose 137 H 11/25/24 16:47: POC Glucose 192 H I & O for Labs for Last 24 Hours: Intake & Output 11/22/24 11/23/24 11/24/24 11/25/24 23:59 23:59 23:59 23:59 Intake Total 810 / 1050 970 / 970 Output Total 0 / 0 0 / 0 Balance 810 / 1050 970 / 970 Weight 92.079 kg 94.432 kg 92.278 kg Microbiology Reports for the Last 24 Hours: Microbiology 11/23/24 22:38 Urine,Clean Catch Urine Culture - Preliminary Gram Positive Cocci 11/24/24 00:10 Blood Blood Culture - Preliminary NO GROWTH AFTER 24 HOURS 11/24/24 00:15 Blood Blood Culture - Preliminary NO GROWTH AFTER 24 HOURS Constitutional: Present no acute distress, obese, chronically ill appearing and cooperative Head: Present atraumatic and normocephalic ENT: Present normal exam Respiratory: Present normal respiratory effort; Absent rhonchi, wheezes or crackles Cardiac: Present Reg Rate and Rhythm GI: Present soft and normal bowel sounds; Absent distention or tenderness Extremities: Present normal inspection, full ROM and edema (3+ to knees) Skin: Present intact; Absent erythema Neuro: Present Grossly Intact, alert, awake, oriented x 3 and moves all extremities Assessment and Plan *Assessment and plan (1) Acute UTI: Status: Acute Category: Medical Code(s): N39.0 - Urinary tract infection, site not specified (2) Anasarca: Status: Acute Category: Medical Code(s): R60.1 - Generalized edema (3) Fecal impaction: Status: Acute Category: Medical Code(s): K56.41 - Fecal impaction (4) Hypertension: Status: Acute Category: Medical Code(s): I10 - Essential (primary) hypertension (5) Stercoral colitis: Status: Acute Category: Medical Code(s): K52.89 - Other specified noninfective gastroenteritis and colitis (6) Fall: Status: Acute Category: Medical Code(s): W19.XXXA - Unspecified fall, initial encounter (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 Category: Medical Code(s): E11.59 - Type 2 diabetes mellitus with other circulatory complications (8) Hyperlipidemia: Status: Chronic Category: Medical Code(s): E78.5 - Hyperlipidemia, unspecified (9) Diastolic heart failure: Status: Acute Category: Medical Code(s): I50.30 - Unspecified diastolic (congestive) heart failure (10) CKD (chronic kidney disease) stage 4, GFR 15-29 ml/min: Status: Acute Category: Medical Code(s): N18.4 - Chronic kidney disease, stage 4 (severe) Plan 73-year-old female with stage IV chronic kidney disease who presented with st ercoral colitis, leukocytosis, volume overload. Having bowel movements. Continuing to aggressively diurese. Awaiting rehab placement. Problems addressed as follows: Grade 2 diastolic dysfunction - Impaired relaxation with LA enlargement for recent echo with normal LV systolic function - Elevated BNP. Continue aggressive diuresis with Bumex 3 mg IV twice daily. Urinating independently. Unsure exact output as it is: Measured -Kidney function stable but bad with BUN 47, creatinine 2.9. Potassium 3.2 with magnesium 1.8. -Stable on room air Leukocytosis Stercoral colitis -White count elevated at 16. No systemic signs of infection however. Discontinue IV antibiotics -Urine culture still pending. Negative to date -Initiate Macrobid 50 mg 4 times a day Constipation -Stercoral colitis improving, constipation resolved. Discontinue bowel regimen. Having multiple loose stools daily. Hypertension - Discontinue clonidine - Discontinue hydralazine - Continue nifedipine - Spironolactone contraindicated due to CKD, creatinine greater than 2.5, discontinue Normocytic anemia, chronic -Hemoglobin 7.8, iron panel pending. Transfusion threshold hemoglobin less than 7. Repeat CBC, CMP, magnesium ordered for the morning electrolyte disturbances: Potassium 3.2, magnesium 1.8, sodium 136. Replacing potassium per protocol Neuropathy: Continue gabapentin for 100 mg 3 times a day Diabetes: Continue Lantus 22 units daily with sliding scale insulin and fingersticks ACHS Hypothyroid: Continue levothyroxine 88 mcg daily Anxiety: Continue home clonazepam Hyperlipidemia: Continue Lipitor 20 mg nightly Therapy evaluated, would benefit from placement. Awaiting rehab acceptance at [place]. Dissipate discharge tomorrow
[2024-11-25 20:00] LABS: POC Glucose,Bedside 211 (70-110)
[2024-11-25] MEDS: ATORVASTATIN 20MG TABLET 20 MG PO (20:57)
[2024-11-26] VITALS (7 sets, daily range): BP systolic 116–160; BP diastolic 50–73; PULSE 60–74; RESP 16–23; TEMP 36.4–37.1; O2SAT 94–97; BMI 31.2
--- NOTE | 2024-11-26 05:32 | PC.NURSE ---
patient has rested well tonight. patient is able to ambulate to the toilet and was educated to ring out to use the bathroom - but declines getting up to use the toilet, while still heavily urinating and having bm's in the bed. patient is providing minimal assistance in turning in bed to bed changed and cleaned up.
[2024-11-26 06:19] LABS: Basophils % 0.3 % (0.1-2.0); Eosinophils # 0.4 Kmm3 (0.0-0.4); Eosinophils % 2.5 % (0.1-12.0); Hematocrit 23.9 % (37.0-47.0); Hemoglobin 7.5 g/dL (12.2-16.2); Immature Granulocytes # 0.12 10^3uL; Immature Granulocytes % 0.8 %; Lymphocytes # 5.5 K/mm3 (0.7-4.5); Lymphocytes % 37.5 % (10-50); Mean Corpuscular HGB Conc 31.4 g/dL (31.8-35.4); Mean Corpuscular Hemoglobin 27.4 pg (27.0-31.2); Mean Corpuscular Volume 87.2 fl (81-99); Mean Platelet Volume 9.6 fl (7.4-10.4); Monocytes # 0.6 K/mm3 (0.1-1.0); Monocytes % 3.9 % (1.7-9.3); Nucleated Red Blood Cells # 0 10^3/uL; Nucleated Red Blood Cells % 0 %; Platelet Count 256 K/mm3 (142-424); Red Blood Count 2.74 M/mm3 (4.20-5.40); Red Cell Distribution Width 15.5 % (11.5-17.5); Red Cell Distribution Width-SD 49.1 fL; White Blood Count 14.6 K/mm3 (4.8-10.8)
[2024-11-26 06:22] LABS: MANUAL DIFFERENTIAL MANUAL DIFFERENTIAL (MANUAL DIFF)
[2024-11-26 06:34] LABS: Alanine Aminotransferase 9 U/L (12-78); Albumin Level 2.4 g/dl (3.5-5.0); Alkaline Phosphatase 83 U/L (38-126); Anion Gap 6.9 mEq/L (5-15); Aspartate Amino Transferase 16 U/L (14-36); Bilirubin,Total 0.3 mg/dl (0.2-1.3); Blood Urea Nitrogen 52 mg/dl (7-17); Calcium 7.6 mg/dl (8.4-10.2); Carbon Dioxide 24 mmol/L (22.0-30.0); Chloride 109 mmol/L (98-107); Creatinine Clearance Estimated 23 mL/min (50-200); Estimated Glomerular Filt Rate 15 ml/min (>60); GFR (African American) 18 ML/MIN (>60); Globulin 2.5 g/dL (1.3-3.2); Glucose 52 mg/dl (74-100); Sodium 137 mmol/L (136-145); Total Protein,Serum 4.9 g/dl (6.3-8.2)
[2024-11-26] MEDS: LEVOTHYROXINE 88MCG (0.088MG) TAB 88 MCG PO (06:35)
[2024-11-26 06:43] LABS: Magnesium 1.7 mg/dl (1.6-2.3); Potassium 2.9 mmoL/L (3.5-5.1)
[2024-11-26 07:30] LABS: Eosinophils % 1 % (0-3); Lymphocytes % 26 % (10-50); Monocytes % 4 % (2-9); Neutrophils % 69 % (42-76); Total Cells Counted 100
[2024-11-26 07:31] LABS: Ovalocytes 1+; Platelet Estimate Normal; RBC Morphology Normal
[2024-11-26] MEDS: ASPIRIN EC 81MG TABLET 81 MG PO (09:06)
[2024-11-26] MEDS: MAGNESIUM SULFATE IN WATER 2 GM/50 ML PIGGYBACK IV ×2 (09:06→11:05)
[2024-11-26] MEDS: KCl 10mEq/100ml 100 ML 100 MEQ IV ×3 (09:06→14:48)
[2024-11-26] MEDS: NITROFURANTOIN 100MG CAPSULE 100 MG PO ×4 (09:06→20:00)
[2024-11-26] MEDS: HEPARIN SODIUM 5,000 UNIT/ML VIAL 5000 UNIT SUBCUT ×3 (09:07→20:00)
[2024-11-26] MEDS: POTASSIUM CHLORIDE 20MEQ TAB 40 MEQ PO ×3 (09:07→16:46)
[2024-11-26] MEDS: BUMETANIDE 1MG/4ML VIAL 3 MG IV ×2 (09:07→16:47)
[2024-11-26] MEDS: NIFEdipine XL 30MG TABLET 90 MG PO (09:09)
[2024-11-26] MEDS: INSULIN GLARGINE 100 UNITS/ML 3ML FLEXPEN 22 UNIT SUBCUT (09:09)
[2024-11-26] MEDS: GABAPENTIN 400MG CAPSULE 400 MG PO ×3 (09:14→20:00)
[2024-11-26 09:18] LABS: POC Glucose,Bedside 144 (70-110)
[2024-11-26 12:05] LABS: POC Glucose,Bedside 130 (70-110)
--- NOTE | 2024-11-26 16:17 | EXP.ACUTE.PN ---
Subjective *Date: 11/26/24 *Time: 16:17 Interval history: Feeling somewhat better. Still having loose stools. No longer dealing with constipation. Urine culture remains negative. Responding to diuretics, voiding independently. Edema marginally improved. Stable on room air. No nausea or vomiting. Tolerating p.o. intake Medical Exam Vital signs and Labs for Last 24 Hours: Vital Signs Temp Pulse Resp BP Pulse Ox O2 Del Method 11/26/24 16:00 98.4 F 68 19 118/73 95 11/26/24 15:00 Room Air 11/26/24 13:00 Room Air 11/26/24 12:00 98.4 F 64 16 124/60 94 L 11/26/24 11:00 Room Air 11/26/24 09:05 65 146/58 H 11/26/24 09:00 Room Air 11/26/24 08:00 Room Air 11/26/24 07:47 97.7 F 60 23 116/50 L 96 11/26/24 06:38 Room Air 11/26/24 05:00 Room Air 11/26/24 04:00 97.5 F L 62 16 117/56 L 95 Room Air 11/26/24 03:00 Room Air 11/26/24 01:00 Room Air 11/26/24 00:00 98.4 F 69 16 160/67 H 95 Room Air 11/25/24 23:00 Room Air 11/25/24 21:00 Room Air 11/25/24 20:00 Room Air 11/25/24 20:00 98.8 F 76 16 152/58 H 96 Room Air 11/25/24 18:53 Room Air 11/25/24 17:00 Room Air Intake and Output 11/26/24 11/26/24 11/26/24 07:59 15:59 23:59 Intake Total 520 / 520 Output Total 0 / 0 0 / 0 Balance 0 / 520 520 / 520 Intake: Intake, Oral Amount 520 / 520 Output: Output, Urine Amount 0 / 0 0 / 0 Other: Number of Unmeasured Voids 1 0 1 Number of Bowel Movements 1 1 Weight 93.61 kg Patient Weight 11/26/24 23:59 Weight 93.61 kg Laboratory Results - last 24 hr 11/25/24 16:47: POC Glucose 192 H 11/25/24 19:34: POC Glucose 211 H 11/26/24 06:01: WBC 14.6 H, RBC 2.74 L, Hgb 7.5 L, Hct 23.9 L, MCV 87.2, MCH 27.4, MCHC 31.4 L, RDW 15.5, Plt Count 256, MPV 9.6, Neut % (Auto) 55.0, Lymph % (Auto) 37.5, [place] % (Auto) 3.9, Eos % (Auto) 2.5, Baso % (Auto) 0.3, Neut # (Auto) 8.0 H, Lymph # (Auto) 5.5 H, [place] # (Auto) 0.6, Eos # (Auto) 0.4, Baso # (Auto) 0.0, Total Counted 100, Neutrophils % (Manual) 69, Lymphocytes % (Manual) 26, Monocytes % (Manual) 4, Eosinophils % (Manual) 1, Platelet Estimate Normal, RBC Morphology Normal, Ovalocytes 1+, Sodium 137, Potassium 2.9 L*, Chloride 109 H, Carbon Dioxide 24, Anion Gap 6.9, BUN 52 H, Creatinine 3.10 H, Estimated Creat Clear 23, Estimated GFR 15 L*, Est GFR ( Amer) 18 L*, Glucose 52 L D, Calcium 7.6 L, Magnesium 1.7, Total Bilirubin 0.3, AST 16, ALT 9 L, Alkaline Phosphatase 83, Total Protein 4.9 L, Albumin 2.4 L, Globulin 2.5, Albumin/Globulin Ratio 1.0 L 11/26/24 09:09: POC Glucose 144 H 11/26/24 11:58: POC Glucose 130 H I & O for Labs for Last 24 Hours: Intake & Output 11/23/24 11/24/24 11/25/24 11/26/24 23:59 23:59 23:59 23:59 Intake Total 810 / 1050 1210 / 1210 520 / 520 Output Total 0 / 0 0 / 0 0 / 0 Balance 810 / 1050 1210 / 1210 520 / 520 Weight 92.079 kg 94.432 kg 92.278 kg 93.61 kg Microbiology Reports for the Last 24 Hours: Microbiology 11/23/24 22:38 Urine,Clean Catch Urine Culture - Final Enterococcus faecalis 11/24/24 00:10 Blood Blood Culture - Preliminary NO GROWTH AFTER 48 HOURS 11/24/24 00:15 Blood Blood Culture - Preliminary NO GROWTH AFTER 48 HOURS Constitutional: Present no acute distress, obese, chronically ill appearing and cooperative Head: Present atraumatic and normocephalic ENT: Present normal exam Respiratory: Present normal respiratory effort; Absent rhonchi, wheezes or crackles Cardiac: Present Reg Rate and Rhythm GI: Present soft and normal bowel sounds; Absent distention or tenderness Extremities: Present normal inspection, full ROM and edema (3+ to knees) Skin: Present intact; Absent erythema Neuro: Present Grossly Intact, alert, awake, oriented x 3 and moves all extremities Assessment and Plan *Assessment and plan (1) Acute UTI: Status: Acute Category: Medical Code(s): N39.0 - Urinary tract infection, site not specified (2) Anasarca: Status: Acute Category: Medical Code(s): R60.1 - Generalized edema (3) Fecal impaction: Status: Acute Category: Medical Code(s): K56.41 - Fecal impaction (4) Hypertension: Status: Acute Category: Medical Code(s): I10 - Essential (primary) hypertension (5) Stercoral colitis: Status: Acute Category: Medical Code(s): K52.89 - Other specified noninfective gastroenteritis and colitis (6) Fall: Status: Acute Category: Medical Code(s): W19.XXXA - Unspecified fall, initial encounter (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 Category: Medical Code(s): E11.59 - Type 2 diabetes mellitus with other circulatory complications (8) Hyperlipidemia: Status: Chronic Category: Medical Code(s): E78.5 - Hyperlipidemia, unspecified (9) Diastolic heart failure: Status: Acute Category: Medical Code(s): I50.30 - Unspecified diastolic (congestive) heart failure (10) CKD (chronic kidney disease) stage 4, GFR 15-29 ml/min: Status: Acute Category: Medical Code(s): N18.4 - Chronic kidney disease, stage 4 (severe) Plan 73-year-old female with stage IV chronic kidney disease who presented with stercoral colitis, leukocytosis, volume overload. Having bowel movements. Continuing to aggressively diurese. Awaiting stability of electrolytes for rehab placement. Problems addressed as follows: Grade 2 diastolic dysfunction - Impaired relaxation with LA enlargement for recent echo with normal LV systolic function - Elevated BNP. Continue aggressive diuresis with Bumex 3 mg IV twice daily. Urinating independently. Unsure exact output as it is not measured -Kidney function stable and baseline range with BUN 52, creatinine 3.1. Magnesium 1.7. Potassium remains low at 2.9. Replacing aggressively with oral and IV replacement. -Stable on room air Leukocytosis Stercoral colitis -White count improved today at 14.6. Hemoglobin stable at 7.5. No systemic signs of infection. Continue Macrobid 50 mg 4 times a day for potential urinary source -Urine culture still pending. Negative to date Constipation: Resolved, Having multiple loose stools daily. Hypertension - Discontinue clonidine, hydralazine, nifedipine - Spironolactone contraindicated due to CKD, creatinine greater than 2.5, discontinue Normocytic anemia, chronic -Hemoglobin 7.5, iron panel pending. Transfusion threshold hemoglobin less than 7. Administer 200 mg Venofer x 1 repeat CBC, CMP, magnesium ordered for the morning Neuropathy: Continue gabapentin for 100 mg 3 times a day Diabetes: Continue Lantus decreased to 20 units twice daily along with sliding scale insulin and fingersticks ACHS. A1c elevated earlier this month at 9 Hypothyroid: Continue levothyroxine 88 mcg daily Anxiety: Continue home clonazepam Hyperlipidemia: Continue Lipitor 20 mg nightly Therapy evaluated, would benefit from placement. Awaiting rehab acceptance at [place]. anticipate discharge tomorrow
--- NOTE | 2024-11-26 16:26 | PC.WOUNDNOTE ---
Open area to the R upper foot Open area to the R upper foot Scabbed area on L Upper foot R Heel L lateral Heel
[2024-11-26 16:34] LABS: POC Glucose,Bedside 77 (70-110)
[2024-11-26 16:39] LABS: POC Glucose,Bedside 269 (70-110)
[2024-11-26 16:46] LABS: POC Glucose,Bedside 155 (70-110)
[2024-11-26] MEDS: IRON SUCROSE COMPLEX 200 MG in 0.9 % SODIUM CHLORIDE 100 ML 220 MG IV (16:47)
[2024-11-26] MEDS: humaLOG 100 UNITS/ML 10ML VIAL (SSI) SUBCUT ×2 (16:47→20:10)
--- NOTE | 2024-11-26 17:38 | PC.NURSE ---
Patient is A&Ox4. Vital signs stable tolerating room air. Potassium and magnesium replaced per protocol. IV bumex administered per AUG. FSBS glucose treated per AUG. Pt has sat up in the chair this morning and has ambulated multiple times to the bathroom. Pt resting comfortably supine in bed with no further needs voiced at this time. Call light within reach.
[2024-11-26] MEDS: ATORVASTATIN 20MG TABLET 20 MG PO (20:00)
[2024-11-26] MEDS: INSULIN GLARGINE 100 UNITS/ML 3ML FLEXPEN 20 UNIT SUBCUT (20:09)
[2024-11-26 20:26] LABS: POC Glucose,Bedside 176 (70-110)
[2024-11-27] VITALS (17 sets, daily range): BP systolic 121–146; BP diastolic 53–86; PULSE 58–91; RESP 12–18; TEMP 36.6–37.1; O2SAT 92–100; BMI 32.2
--- NOTE | 2024-11-27 02:40 | PC.NURSE ---
Pt AOx4. Denies pain or any additional needs at this time. Pt is on room air. 20g RAC, saline locked. Some 2+ edema to extremities. Pt was adjusted in bed with SQL ANALYST and RN. Pt is currently resting in bed with eyes open. Respirations even and unlabored. Bed is low, locked, and call light is in reach.
[2024-11-27 05:30] LABS: POC Glucose,Bedside 139 (70-110)
[2024-11-27] MEDS: LEVOTHYROXINE 88MCG (0.088MG) TAB 88 MCG PO (06:33)
[2024-11-27 06:39] LABS: Basophils # 0.1 K/mm3 (0-0.2); Basophils % 0.4 % (0.1-2.0); Eosinophils # 0.5 Kmm3 (0.0-0.4); Eosinophils % 3.8 % (0.1-12.0); Hemoglobin 7.1 g/dL (12.2-16.2); Immature Granulocytes # 0.14 10^3uL; Lymphocytes # 6.3 K/mm3 (0.7-4.5); Lymphocytes % 45.2 % (10-50); Mean Corpuscular HGB Conc 32.3 g/dL (31.8-35.4); Mean Corpuscular Hemoglobin 28.3 pg (27.0-31.2); Mean Corpuscular Volume 87.6 fl (81-99); Mean Platelet Volume 9.5 fl (7.4-10.4); Monocytes # 0.6 K/mm3 (0.1-1.0); Monocytes % 4.5 % (1.7-9.3); Neutrophils # 6.3 K/mm3 (1.8-7.8); Neutrophils % 45.1 % (37.0-80.0); Nucleated Red Blood Cells # 0 10^3/uL; Nucleated Red Blood Cells % 0 %; Platelet Count 263 K/mm3 (142-424); Red Blood Count 2.51 M/mm3 (4.20-5.40); Red Cell Distribution Width 15.6 % (11.5-17.5); White Blood Count 13.9 K/mm3 (4.8-10.8)
[2024-11-27 06:46] LABS: MANUAL DIFFERENTIAL MANUAL DIFFERENTIAL (MANUAL DIFF)
[2024-11-27 06:59] LABS: Alanine Aminotransferase 9 U/L (12-78); Albumin Level 2.4 g/dl (3.5-5.0); Alkaline Phosphatase 84 U/L (38-126); Anion Gap 7.5 mEq/L (5-15); Aspartate Amino Transferase 20 U/L (14-36); Bilirubin,Total 0.2 mg/dl (0.2-1.3); Blood Urea Nitrogen 58 mg/dl (7-17); Calcium 7.5 mg/dl (8.4-10.2); Carbon Dioxide 22 mmol/L (22.0-30.0); Chloride 111 mmol/L (98-107); Creatinine Clearance Estimated 22 mL/min (50-200); Estimated Glomerular Filt Rate 13 ml/min (>60); GFR (African American) 16 ML/MIN (>60); Globulin 2.4 g/dL (1.3-3.2); Glucose 113 mg/dl (74-100); Potassium 4.5 mmoL/L (3.5-5.1); Sodium 136 mmol/L (136-145); Total Protein,Serum 4.8 g/dl (6.3-8.2)
[2024-11-27 07:20] LABS: Magnesium 2.3 mg/dl (1.6-2.3)
[2024-11-27] MEDS: HEPARIN SODIUM 5,000 UNIT/ML VIAL 5000 UNIT SUBCUT ×3 (08:47→20:08)
[2024-11-27] MEDS: BUMETANIDE 1MG/4ML VIAL 3 MG IV (08:47)
[2024-11-27] MEDS: NITROFURANTOIN 100MG CAPSULE 100 MG PO ×4 (08:47→20:08)
[2024-11-27] MEDS: NIFEdipine XL 30MG TABLET 90 MG PO (08:47)
[2024-11-27] MEDS: ASPIRIN EC 81MG TABLET 81 MG PO (08:47)
[2024-11-27 09:02] LABS: POC Glucose,Bedside 158 (70-110)
[2024-11-27] MEDS: GABAPENTIN 400MG CAPSULE 400 MG PO ×3 (09:02→20:21)
[2024-11-27] MEDS: INSULIN GLARGINE 100 UNITS/ML 3ML FLEXPEN 20 UNIT SUBCUT ×2 (09:02→20:21)
[2024-11-27 10:03] LABS: Eosinophils % 3 % (0-3); Lymphocytes % 46 % (10-50); Monocytes % 4 % (2-9); Neutrophils % 47 % (42-76); Platelet Estimate Normal; RBC Morphology Normal; Total Cells Counted 100
--- NOTE | 2024-11-27 11:17 | P.PN_ITS ---
Subjective *Date: 11/27/24 *Time: 16:10 Interval history: Patient does not appear to be having a good response to diuresis. Still has significant edema. Feels short of breath and says she is wheezy when she lays down but is stable on room air tolerating p.o. intake. Afebrile.. Medical Exam Vital signs and Labs for Last 24 Hours: Vital Signs Temp Pulse Resp BP Pulse Ox O2 Del Method 11/27/24 11:00 Room Air 11/27/24 09:00 Room Air 11/27/24 08:00 Room Air 11/27/24 07:58 98.2 F 63 16 129/53 L 98 Room Air 11/27/24 06:43 Room Air 11/27/24 05:00 Room Air 11/27/24 04:00 98.7 F 58 L 16 122/53 L 96 Room Air 11/27/24 03:00 Room Air 11/27/24 01:00 Room Air 11/27/24 00:00 98.6 F 61 16 136/55 L 100 Room Air 11/26/24 23:00 Room Air 11/26/24 21:00 Room Air 11/26/24 20:00 Room Air 11/26/24 19:36 98.7 F 74 18 129/54 L 97 Room Air 11/26/24 18:48 Room Air 11/26/24 17:00 Room Air 11/26/24 16:00 98.4 F 68 19 118/73 95 11/26/24 15:00 Room Air 11/26/24 13:00 Room Air 11/26/24 12:00 98.4 F 64 16 124/60 94 L Intake and Output 11/26/24 11/27/24 11/27/24 23:59 07:59 15:59 Intake Total 240 / 760 0 / 480 480 / 480 Output Total 0 / 0 0 / 0 Balance 240 / 760 0 / 480 480 / 480 Intake: Intake, Oral Amount 240 / 760 0 / 480 480 / 480 Intake, Oral Supplement Amount 0 / 0 Output: Output, Urine Amount 0 / 0 0 / 0 Other: Number of Unmeasured Voids 2 1 Number of Urine Attends/Diapers 1 Number of Bowel Movements 1 1 Weight 96.388 kg Patient Weight 11/27/24 23:59 Weight 96.388 kg Laboratory Results - last 24 hr 11/24/24 19:56: POC Glucose 269 H 11/26/24 05:28: POC Glucose 77 11/26/24 11:58: POC Glucose 130 H 11/26/24 16:38: POC Glucose 155 H 11/26/24 20:02: POC Glucose 176 H 11/27/24 05:22: POC Glucose 139 H 11/27/24 06:20: WBC 13.9 H, RBC 2.51 L, Hgb 7.1 L, Hct 22.0 L, MCV 87.6, MCH 28.3, MCHC 32.3, RDW 15.6, Plt Count 263, MPV 9.5, Neut % (Auto) 45.1, Lymph % (Auto) 45.2, [place] % (Auto) 4.5, Eos % (Auto) 3.8, Baso % (Auto) 0.4, Neut # (Auto) 6.3, Lymph # (Auto) 6.3 H, [place] # (Auto) 0.6, Eos # (Auto) 0.5 H, Baso # (Auto) 0.1, Total Counted 100, Neutrophils % (Manual) 47, Lymphocytes % (Manual) 46, Monocytes % (Manual) 4, Eosinophils % (Manual) 3, Platelet Estimate Normal, RBC Morphology Normal, Sodium 136, Potassium 4.5 D, Chloride 111 H, Carbon Dioxide 22, Anion Gap 7.5, BUN 58 H, Creatinine 3.40 H, Estimated Creat Clear 22, Estimated GFR 13 L*, Est GFR ( Amer) 16 L*, Glucose 113 H, Calcium 7.5 L, Magnesium 2.3 D, Total Bilirubin 0.2, AST 20, ALT 9 L, Alkaline Phosphatase 84, Total Protein 4.8 L, Albumin 2.4 L, Globulin 2.4, Albumin/Globulin Ratio 1.0 L, Blood Type Confirm A Positive 11/27/24 08:35: Blood Type A Positive, Antibody Screen Negative, Crossmatch ([facility]) See Detail 11/27/24 08:46: POC Glucose 158 H I & O for Labs for Last 24 Hours: Intake & Output 11/24/24 11/25/24 11/26/24 11/27/24 23:59 23:59 23:59 23:59 Intake Total 810 / 1050 1210 / 1210 760 / 760 480 / 480 Output Total 0 / 0 0 / 0 0 / 0 0 / 0 Balance 810 / 1050 1210 / 1210 760 / 760 480 / 480 Weight 94.432 kg 92.278 kg 93.61 kg 96.388 kg Microbiology Reports for the Last 24 Hours: Microbiology 11/23/24 22:38 Urine,Clean Catch Urine Culture - Final Enterococcus faecalis Constitutional: Present no acute distress, obese, chronically ill appearing and cooperative Head: Present atraumatic and normocephalic ENT: Present normal exam Respiratory: Present normal respiratory effort; Absent rhonchi, wheezes or crackles Cardiac: Present Reg Rate and Rhythm GI: Present soft and normal bowel sounds; Absent distention or tenderness Extremities: Present normal inspection, full ROM and edema (3+ to knees, no improvement from yesterday.) Skin: Present intact; Absent erythema Comment:: Small weeping wound on dorsum of right foot approximately the size of a quarter Neuro: Present Grossly Intact, alert, awake, oriented x 3 and moves all extremities Assessment and Plan *Assessment and plan (1) Acute UTI: Status: Acute Category: Medical Code(s): N39.0 - Urinary tract infection, site not specified (2) Anasarca: Status: Acute Category: Medical Code(s): R60.1 - Generalized edema (3) Fecal impaction: Status: Acute Category: Medical Code(s): K56.41 - Fecal impaction (4) Hypertension: Status: Acute Category: Medical Code(s): I10 - Essential (primary) hypertension (5) Stercoral colitis: Status: Acute Category: Medical Code(s): K52.89 - Other specified noninfective gastroenteritis and colitis (6) Fall: Status: Acute Category: Medical Code(s): W19.XXXA - Unspecified fall, initial encounter (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 Category: Medical Code(s): E11.59 - Type 2 diabetes mellitus with other circulatory complications (8) Hyperlipidemia: Status: Chronic Category: Medical Code(s): E78.5 - Hyperlipidemia, unspecified (9) Diastolic heart failure: Status: Acute Category: Medical Code(s): I50.30 - Unspecified diastolic (congestive) heart failure (10) CKD (chronic kidney disease) stage 4, GFR 15-29 ml/min: Status: Acute Category: Medical Code(s): N18.4 - Chronic kidney disease, stage 4 (severe) Plan 73-year-old female with stage IV chronic kidney disease who presented with stercoral colitis, leukocytosis, volume overload. Having bowel movements. Continuing to aggressively diurese. Awaiting stability of electrolytes for rehab placement. Problems addressed as follows: Grade 2 diastolic dysfunction - Impaired relaxation with LA enlargement for recent echo with normal LV systolic function - Elevated BNP. Continue aggressive diuresis with Bumex 3 mg IV twice daily. Urinating independently. Unsure exact output as it is not measured - Still has significant edema. Will administer 50 g albumin today with Lasix challenge of 120 mg IV once. Discussed strict output monitoring with nursing. Repeat BMP ordered for this afternoon, repeat CBC, CMP, magnesium ordered for the morning -Potassium 4.5 today, BUN 58, creatinine 3.4. Sodium 136 - Stable on room air Leukocytosis Stercoral colitis -White count improved today at 13.9, hemoglobin dropped to 7.1. Given worsening kidney function, cardiac dysfunction, hypoalbuminemia, will administer 1 unit packed red blood cells to improve renal blood flow and potentially aid in diuresis. - Continue Macrobid 50 mg 4 times a day for potential urinary source -Urine culture still pending. Constipation: Resolved, Having multiple loose stools daily. Hypertension - Discontinue clonidine, hydralazine, nifedipine - Spironolactone contraindicated due to CKD, creatinine greater than 2.5, discontinue Normocytic anemia, chronic -Hemoglobin 7.1, secondary to renal dysfunction and chronic disease - Transfuse 1 unit today as above - Status post 200 mg Venofer x 1 Neuropathy: Continue gabapentin for 100 mg 3 times a day Diabetes: Morning glucose 113, continue Lantus 20 units twice daily along with sliding scale insulin and fingersticks ACHS. A1c elevated earlier this month at 9 Hypothyroid: Continue levothyroxine 88 mcg daily Anxiety: Continue home clonazepam Hyperlipidemia: Continue Lipitor 20 mg nightly Therapy evaluated, would benefit from placement. Has been accepted to [facility]. Unfortunately not appropriate to discharge today. Anticipate potential discharge in the next 48 hours.
[2024-11-27 11:22] LABS: POC Glucose,Bedside 124 (70-110)
[2024-11-27] MEDS: ALBUMIN HUMAN 12.5 GM/50 ML BAG IV ×4 (11:32→13:00)
[2024-11-27] MEDS: FUROSEMIDE 40MG/4ML VIAL 120 MG IV (11:59)
[2024-11-27] MEDS: SPIRONOLACTONE 25MG TABLET 50 MG PO (11:59)
[2024-11-27 16:07] LABS: POC Glucose,Bedside 147 (70-110)
--- NOTE | 2024-11-27 16:24 | PC.NURSE ---
pt resting in the chair at this time. a &ox4. received 1 unit blood this shift, along with albumin, diuretics and other medications per mar. tolerated transfusion well. dressings changed on bilateral feet/heels this shift. fsbs this shift did not require treatment with SSI. purewick in place to monitor strict output. hat placed in toilet. SCDS in place per provider to help push fluid from extremities. pt in good spirits. very good appetite this shift. no complaints of pain or discomfort. no needs at this time. call light within reach.
[2024-11-27 17:21] LABS: Hematocrit 25.9 % (37.0-47.0)
[2024-11-27 17:31] LABS: Hemoglobin 8.4 g/dL (12.2-16.2)
[2024-11-27 17:47] LABS: Albumin Level 3.2 g/dl (3.5-5.0); Chloride 110 mmol/L (98-107); Sodium 136 mmol/L (136-145)
[2024-11-27 17:48] LABS: Potassium 4.5 mmoL/L (3.5-5.1)
[2024-11-27 17:50] LABS: Alanine Aminotransferase 9 U/L (12-78); Albumin/Globulin Ratio 1.3 (1.1-1.8); Alkaline Phosphatase 83 U/L (38-126); Anion Gap 11.5 mEq/L (5-15); Aspartate Amino Transferase 22 U/L (14-36); Bilirubin,Total 0.3 mg/dl (0.2-1.3); Blood Urea Nitrogen 62 mg/dl (7-17); Carbon Dioxide 19 mmol/L (22.0-30.0); Creatinine Clearance Estimated 22 mL/min (50-200); Estimated Glomerular Filt Rate 13 ml/min (>60); GFR (African American) 16 ML/MIN (>60); Globulin 2.4 g/dL (1.3-3.2); Total Protein,Serum 5.6 g/dl (6.3-8.2)
[2024-11-27 17:51] LABS: Glucose 134 mg/dl (74-100)
[2024-11-27] MEDS: ATORVASTATIN 20MG TABLET 20 MG PO (20:08)
[2024-11-27] MEDS: humaLOG 100 UNITS/ML 10ML VIAL (SSI) SUBCUT (20:21)
[2024-11-27 20:22] LABS: POC Glucose,Bedside 178 (70-110)
[2024-11-28] VITALS: BP 146/89; PULSE 64; RESP 16; TEMP 36.6; O2SAT 98
--- NOTE | 2024-11-28 03:35 | PC.NURSE ---
Pt AOx4, pleasant. 2+ pitting edema to all [address] to measure output. Pt continually denies pain or additional needs. Currently resting in low, locked bed with call light in reach.
[2024-11-28 04:00] VITALS: BP 145/65; PULSE 61; RESP 14; TEMP 36.6; O2SAT 99; BMI 33.1
[2024-11-28 05:10] LABS: POC Glucose,Bedside 122 (70-110)
[2024-11-28] MEDS: LEVOTHYROXINE 88MCG (0.088MG) TAB 88 MCG PO (06:06)
[2024-11-28 06:20] LABS: Basophils % 0.3 % (0.1-2.0); Eosinophils # 0.6 Kmm3 (0.0-0.4); Eosinophils % 4.2 % (0.1-12.0); Hematocrit 24.8 % (37.0-47.0); Hemoglobin 7.8 g/dL (12.2-16.2); Immature Granulocytes # 0.18 10^3uL; Immature Granulocytes % 1.4 %; Lymphocytes # 5.8 K/mm3 (0.7-4.5); Lymphocytes % 44.3 % (10-50); Mean Corpuscular HGB Conc 31.5 g/dL (31.8-35.4); Mean Corpuscular Hemoglobin 28.1 pg (27.0-31.2); Mean Corpuscular Volume 89.2 fl (81-99); Monocytes # 0.7 K/mm3 (0.1-1.0); Monocytes % 5.5 % (1.7-9.3); Neutrophils # 5.8 K/mm3 (1.8-7.8); Neutrophils % 44.3 % (37.0-80.0); Nucleated Red Blood Cells # 0 10^3/uL; Nucleated Red Blood Cells % 0 %; Platelet Count 262 K/mm3 (142-424); Red Blood Count 2.78 M/mm3 (4.20-5.40); Red Cell Distribution Width 15.4 % (11.5-17.5); Red Cell Distribution Width-SD 50.4 fL; White Blood Count 13.2 K/mm3 (4.8-10.8)
[2024-11-28 06:24] LABS: MANUAL DIFFERENTIAL MANUAL DIFFERENTIAL (MANUAL DIFF)
[2024-11-28 06:31] LABS: Chloride 111 mmol/L (98-107)
[2024-11-28 06:32] LABS: Potassium 4.6 mmoL/L (3.5-5.1); Sodium 136 mmol/L (136-145)
[2024-11-28 06:34] LABS: Alanine Aminotransferase 9 U/L (12-78); Albumin/Globulin Ratio 1.2 (1.1-1.8); Anion Gap 9.6 mEq/L (5-15); Aspartate Amino Transferase 21 U/L (14-36); Blood Urea Nitrogen 68 mg/dl (7-17); Carbon Dioxide 20 mmol/L (22.0-30.0); Creatinine Clearance Estimated 25 mL/min (50-200); Estimated Glomerular Filt Rate 15 ml/min (>60); GFR (African American) 18 ML/MIN (>60); Globulin 2.5 g/dL (1.3-3.2); Total Protein,Serum 5.5 g/dl (6.3-8.2)
[2024-11-28 06:35] LABS: Alkaline Phosphatase 65 U/L (38-126); Bilirubin,Total 0.2 mg/dl (0.2-1.3); Glucose 117 mg/dl (74-100); Magnesium 2.2 mg/dl (1.6-2.3)
[2024-11-28 08:00] VITALS: BP 139/54; PULSE 61; RESP 18; TEMP 36.6; O2SAT 97
--- NOTE | 2024-11-28 08:02 | EXP.DC.SUM ---
General Admission date:: 11/24/24 Discharge date: 11/28/24 HPI HPI HPI: 73-year-old female with a history of obesity, type 2 diabetes, hypertension, hyperlipidemia, CKD, hypothyroidism, diastolic CHF, peripheral edema on Bumex presenting to the emergency department for evaluation with concern for abdominal pain that is all over and 9 out of 10, nausea, and severe constipation. Patient notes that she has not diet had a bowel movement in over a week. At home she has tried Dulcolax without success. She denies fevers, cough, congestion. 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 She does endorse significant swelling and dyspnea primarily with exertion but also occasionally at rest. NYHA II/III. Having abdominal distention. Uncertain about compliance with medication particularly her diuretic. She was supposed to see cardiology for peripheral artery testing however felt too bad to make it to her appointment. In the emergency department she MiraLAX. She did not have any bowel movements, prior to transfer upstairs. stercoral colitis diagnosed in the emergency department she received 1 dose of IV Zosyn. EKG sinus bradycardia no ST . deviations History independently obtained. Diagnostic laboratory eval independently interpreted. I reviewed old records. I discussed case with ER physician. Hospital Course Hospital Course Hospital Course: 73-year-old female with stage IV chronic kidney disease who presented with stercoral colitis, leukocytosis, volume overload. Having bowel movements. Continue diuresis. Kidney function stable. Will discharge to rehab today. Problems addressed as follows: Grade 2 diastolic dysfunction CKD 4 - Impaired relaxation with LA enlargement for recent echo with normal LV systolic function. Elevated BNP. Aggressively diuresed with IV Bumex. Day before discharge administered high-dose Lasix with albumin, responded well. Will transition back to Bumex to continue diuresis. Needs follow-up with cardiology and nephrology for further evaluation of her renal failure and diastolic dysfunction. Kidney function stable today with BUN 68, creatinine 3.1. Making urine. Repeat labs in 3 to 5 days. Remained stable on room air. Leukocytosis UTI/bacteria Stercoral colitis -White count elevated at 16 on admission. Improved to 13. Showing 20-30,000 CFU's of E faecalis. Will transition to Augmentin to complete 5 days of therapy. Blood cultures negative. Constipation: Resolved. Bowel regimen if needed. Having daily bowel movements. Hypertension: Discontinue clonidine, hydralazine. Discontinued spironolactone due to CKD and contraindication with creatinine greater than 2.5. Continuing home nifedipine and Bumex twice daily Normocytic anemia, chronic: Hemoglobin stable at 7.8. Transfused 1 unit during admission. Received iron infusion during admission. electrolyte disturbances: Electrolytes better this morning. Potassium 4.6, magnesium 2.2. Needs repeat labs with CBC, CMP, magnesium in 3 to 5 days. Neuropathy: Continue gabapentin 400 mg 3 times a day Diabetes: Continue Lantus 20 units daily with sliding scale insulin and fingersticks ACHS Hypothyroid: Continue levothyroxine 88 mcg daily Anxiety: Continue home clonazepam 5 mg twice daily as needed Hyperlipidemia: Due to intolerance, holding statin at this time. Therapy evaluated, recommended placement for rehab. Excepted to [place]. Stable to discharge. Total time spent on discharge 32 minutes in counseling, documentation, chart review, and direct care with patient. Exam Data for Last 24 hours Vital signs and Labs for Last 24 Hours: Temp Pulse Resp BP Pulse Ox O2 Del Method O2 Flow Rate 98.8 F 76 16 152/58 H 96 Room Air 4 11/25/24 20:00 11/25/24 20:00 11/25/24 20:00 11/25/24 20:00 11/25/24 20:00 11/25/24 21:00 11/24/24 04:00 Laboratory Results - last 24 hr 11/23/24 22:38: Urine Color Yellow, Urine Appearance Slightly cloudy, Urine pH 6.0, Ur Specific [place] 1.020, Urine Protein 3+ A, Urine Glucose (UA) 2+, Urine Ketones Negative, Urine Blood 2+ A, Urine Nitrate Negative, Urine Bilirubin Negative, Urine Urobilinogen 0.2, Ur Leukocyte Esterase Negative, Urine RBC 50-100, Urine WBC 50-100, Ur Squamous Epith Cells 20-50, Urine Bacteria 2+ 11/25/24 05:42: POC Glucose 100 11/25/24 06:15: WBC 16.2 H, RBC 2.76 L, Hgb 7.8 L, Hct 23.7 L, MCV 85.9, MCH 27.5, MCHC 32.1, RDW 15.7, Plt Count 280, MPV 9.8, Neut % (Auto) 50.6, Lymph % (Auto) 42.5, [place] % (Auto) 4.9, Eos % (Auto) 1.3, Baso % (Auto) 0.3, Neut # (Auto) 8.2 H, Lymph # (Auto) 6.9 H, [place] # (Auto) 0.8, Eos # (Auto) 0.2, Baso # (Auto) 0.1, Total Counted 100, Neutrophils % (Manual) 69, Lymphocytes % (Manual) 28, Monocytes % (Manual) 2, Eosinophils % (Manual) 1, Differential Comment , Platelet Estimate Normal, Anisocytosis 1+, Ovalocytes 1+, Sodium 136, Potassium 3.2 L, Chloride 108 H, Carbon Dioxide 25, Anion Gap 6.2, BUN 47 H, Creatinine 2.90 H D, Estimated Creat Clear 24, Estimated GFR 16 L*, Est GFR ( Amer) 19 L* D, Glucose 83 D, Calcium 7.8 L, Magnesium 1.8 D, Total Bilirubin 0.4, AST 15, ALT 10 L, Alkaline Phosphatase 86, Total Protein 4.8 L, Albumin 2.3 L D, Globulin 2.5, Albumin/Globulin Ratio 0.9 L 11/25/24 09:02: POC Glucose 154 H 11/25/24 10:41: POC Glucose 137 H 11/25/24 16:47: POC Glucose 192 H 11/25/24 19:34: POC Glucose 211 H I & O for Last 24 hours: Intake & Output 11/22/24 11/23/24 11/24/24 11/25/24 23:59 23:59 23:59 23:59 Intake Total 810 / 1050 970 / 970 Output Total 0 / 0 0 / 0 Balance 810 / 1050 970 / 970 Weight 92.079 kg 94.432 kg 92.278 kg Microbiology Reports for the Last 24 Hours: Microbiology 11/23/24 22:38 Urine,Clean Catch Urine Culture - Preliminary Gram Positive Cocci 11/24/24 00:10 Blood Blood Culture - Preliminary NO GROWTH AFTER 24 HOURS 11/24/24 00:15 Blood Blood Culture - Preliminary NO GROWTH AFTER 24 HOURS Constitutional Constitutional: no acute distress, obese, chronically ill appearing and cooperative *Routine HEENT Exam Head: Present normocephalic Eye: Present EOMI and PERRL ENT: Present mucous membranes moist *Routine Neck Exam Neck: Present supple; Absent lymphadenopathy *Routine Respiratory Exam Respiratory: Present CTA bilaterally; Absent respiratory distress, rhonchi, stridor, wheezes or crackles *Routine Cardiovascular Exam Cardiovascular: Present RRR *Routine Abdominal Exam Abdominal: Present soft and normoactive bowel sounds; Absent tenderness *Routine Rectal Exam Patient deferred: visual exam *Routine Exam Patient deferred: external exam *Routine Extremities Exam Extremities: Present edema (3+ to knees); Absent cyanosis or clubbing *Routine Skin Exam Skin: Present intact and warm; Absent rash Comments: Quarter sized weeping/open wound dorsum of right foot *Routine Neurological Exam Neurological: Present alert, oriented X3 and moving all extremities; Absent altered mental status Results Data Completed and Pending Labs on day of discharge: Labs from last 24 hours 11/25/24 11/25/24 11/25/24 19:34 16:47 10:41 WBC RBC Hgb Hct MCV MCH MCHC RDW Plt Count MPV Neut % (Auto) Lymph % (Auto) [place] % (Auto) Eos % (Auto) Baso % (Auto) Neut # (Auto) Lymph # (Auto) [place] # (Auto) Eos # (Auto) Baso # (Auto) Total Counted Neutrophils % (Manual) Lymphocytes % (Manual) Monocytes % (Manual) Eosinophils % (Manual) Differential Comment Platelet Estimate Anisocytosis Ovalocytes Sodium Potassium Chloride Carbon Dioxide Anion Gap BUN Creatinine Estimated Creat Clear Estimated GFR Est GFR ( Amer) Glucose POC Glucose 211 H 192 H 137 H Calcium Magnesium Total Bilirubin AST ALT Alkaline Phosphatase Total Protein Albumin Globulin Albumin/Globulin Ratio Urine Color Urine Appearance Urine pH Ur Specific [place] Urine Protein Urine Glucose (UA) Urine Ketones Urine Blood Urine Nitrate Urine Bilirubin Urine Urobilinogen Ur Leukocyte Esterase Urine RBC Urine WBC Ur Squamous Epith Cells Urine Bacteria 11/25/24 11/25/24 11/25/24 09:02 06:15 05:42 WBC 16.2 H RBC 2.76 L Hgb 7.8 L Hct 23.7 L MCV 85.9 MCH 27.5 MCHC 32.1 RDW 15.7 Plt Count 280 MPV 9.8 Neut % (Auto) 50.6 Lymph % (Auto) 42.5 [place] % (Auto) 4.9 Eos % (Auto) 1.3 Baso % (Auto) 0.3 Neut # (Auto) 8.2 H Lymph # (Auto) 6.9 H [place] # (Auto) 0.8 Eos # (Auto) 0.2 Baso # (Auto) 0.1 Total Counted 100 Neutrophils % (Manual) 69 Lymphocytes % (Manual) 28 Monocytes % (Manual) 2 Eosinophils % (Manual) 1 Differential Comment Platelet Estimate Normal Anisocytosis 1+ Ovalocytes 1+ Sodium 136 Potassium 3.2 L Chloride 108 H Carbon Dioxide 25 Anion Gap 6.2 BUN 47 H Creatinine 2.90 H D Estimated Creat Clear 24 Estimated GFR 16 L* Est GFR ( Amer) 19 L* D Glucose 83 D POC Glucose 154 H 100 Calcium 7.8 L Magnesium 1.8 D Total Bilirubin 0.4 AST 15 ALT 10 L Alkaline Phosphatase 86 Total Protein 4.8 L Albumin 2.3 L D Globulin 2.5 Albumin/Globulin Ratio 0.9 L Urine Color Urine Appearance Urine pH Ur Specific [place] Urine Protein Urine Glucose (UA) Urine Ketones Urine Blood Urine Nitrate Urine Bilirubin Urine Urobilinogen Ur Leukocyte Esterase Urine RBC Urine WBC Ur Squamous Epith Cells Urine Bacteria 11/23/24 22:38 WBC RBC Hgb Hct MCV MCH MCHC RDW Plt Count MPV Neut % (Auto) Lymph % (Auto) [place] % (Auto) Eos % (Auto) Baso % (Auto) Neut # (Auto) Lymph # (Auto) [place] # (Auto) Eos # (Auto) Baso # (Auto) Total Counted Neutrophils % (Manual) Lymphocytes % (Manual) Monocytes % (Manual) Eosinophils % (Manual) Differential Comment Platelet Estimate Anisocytosis Ovalocytes Sodium Potassium Chloride Carbon Dioxide Anion Gap BUN Creatinine Estimated Creat Clear Estimated GFR Est GFR ( Amer) Glucose POC Glucose Calcium Magnesium Total Bilirubin AST ALT Alkaline Phosphatase Total Protein Albumin Globulin Albumin/Globulin Ratio Urine Color Yellow Urine Appearance Slightly cloudy Urine pH 6.0 Ur Specific [place] 1.020 Urine Protein 3+ A Urine Glucose (UA) 2+ Urine Ketones Negative Urine Blood 2+ A Urine Nitrate Negative Urine Bilirubin Negative Urine Urobilinogen 0.2 Ur Leukocyte Esterase Negative Urine RBC 50-100 Urine WBC 50-100 Ur Squamous Epith Cells 20-50 Urine Bacteria 2+ Preliminary micro results at discharge 11/23/24 22:38 Urine Culture - Preliminary Urine,Clean Catch Gram Positive Cocci 11/24/24 00:10 Blood Culture - Preliminary Blood NO GROWTH AFTER 24 HOURS 11/24/24 00:15 Blood Culture - Preliminary Blood NO GROWTH AFTER 24 HOURS DS: Diagnosis Discharge Diagnosis (1) Acute UTI: Status: Acute Code(s): N39.0 - Urinary tract infection, site not specified (2) Anasarca: Status: Acute Code(s): R60.1 - Generalized edema (3) Fecal impaction: Status: Acute Code(s): K56.41 - Fecal impaction (4) Hypertension: Status: Acute Code(s): I10 - Essential (primary) hypertension (5) Stercoral colitis: Status: Acute Code(s): K52.89 - Other specified noninfective gastroenteritis and colitis (6) Fall: Status: Acute Code(s): W19.XXXA - Unspecified fall, initial encounter (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 Code(s): E11.59 - Type 2 diabetes mellitus with other circulatory complications (8) Hyperlipidemia: Status: Chronic Code(s): E78.5 - Hyperlipidemia, unspecified (9) Diastolic heart failure: Status: Acute Code(s): I50.30 - Unspecified diastolic (congestive) heart failure (10) CKD (chronic kidney disease) stage 4, GFR 15-29 ml/min: Status: Acute Code(s): N18.4 - Chronic kidney disease, stage 4 (severe) Meds Home Medications and Allergies Home Medications ?Medication ?Instructions ?Recorded ?Confirmed ?Type hydralazine 50 mg tablet 50 mg PO TID #90 tabs 10/20/24 11/24/24 Rx Held on 11/28/24. Instructions: re-evaluate as outpt, consider resuming if BP >140 amoxicillin 500 mg capsule 500 mg PO BID #9 caps 11/28/24 Rx aspirin 81 mg tablet,delayed 81 mg PO DAILY #30 tabs 11/28/24 Rx release (Adult Aspirin Regimen) bumetanide 1 mg tablet 4 mg (4 x 1 mg) PO BIDL 30 days 11/28/24 Rx #240 tabs gabapentin 400 mg capsule 400 mg PO TID #90 caps 11/28/24 Rx hydrocodone 5 mg-acetaminophen 325 1 tab PO Q8HP PRN moderate pain 11/28/24 Rx mg tablet (scale score 5-6) 10 days #30 tabs insulin glargine 100 unit/mL (3 22 unit (0.22 mL) SQ BID Diabetes 11/28/24 Rx mL) subcutaneous pen #10 mL insulin lispro 100 unit/mL 0 - 14 unit (0 - 0.14 mL) SQ 11/28/24 Rx subcutaneous pen (Humalog KwikPen TIDWMEAL #15 mL (U-100) Insulin) levothyroxine 88 mcg tablet 88 mcg PO DAILY #30 tabs 11/28/24 Rx nifedipine 90 mg tablet,extended 90 mg PO DAILY #30 tabs 11/28/24 Rx release New Prescriptions to Start Prescriptions: marga Paulino,Stef aspirin [Adult Aspirin Regimen] Lora,Stef bumetanide Lora,Stef gabapentin Lora,Stef hydrocodone-acetaminophen Lora,Stef insulin glargine Lora,Stef insulin lispro [Humalog KwikPen Insulin] Lora,Stef levothyroxine Lora,Stef nifedipine Lora,Stef Allergies Allergy/AdvReac Type Severity Reaction Status Date / Time moxifloxacin Allergy Severe S-ANAPHYLAX Verified 11/17/24 22:20 IS Sulfa (Sulfonamide Allergy Mild NA-NAUSEA/V Verified 11/17/24 22:20 Antibiotics) OMITING atorvastatin AdvReac Severe Other Verified 11/17/24 22:20 Discharge Plan Disposition Patient Disposition: [facility] Condition: Fair Discharge Order Discharge Orders: Discharge Order (Routine); Ordered 11/28/24 Ordered By: Stef Paulino Follow up Plan Follow up with: Albert Cain MD [Staff Physician, Medical] - 12/02/24 1:00 pm Elias Lewis MD [Consulting Physician, Nephrology] - Enter time for follow up Referral Note: see at [facility] Prescriptions/Medication Reconciliation: New hydrocodone-acetaminophen 5-325 mg Tablet 1 tab PO Q8HP PRN (Reason: moderate pain (scale score 5-6)) 10 Days Qty: 30 0RF amoxicillin 500 mg capsule 500 mg PO BID Qty: 9 0RF Continued nifedipine 90 mg tablet extended release 90 mg PO DAILY Qty: 30 2RF gabapentin 400 mg capsule 400 mg PO TID Qty: 90 0RF aspirin [Adult Aspirin Regimen] 81 mg tablet,delayed release (DR/EC) 81 mg PO DAILY Qty: 30 2RF levothyroxine 88 mcg tablet 88 mcg PO DAILY Qty: 30 0RF insulin lispro [Humalog KwikPen Insulin] 100 unit/mL insulin pen 0 - 14 unit SQ TIDWMEAL Qty: 15 0RF Rx Instructions: Per home sliding scale If blood sugar 151-200 take 4 units short acting insulin If blood sugar 200-250 take 8 units short acting insulin If blood sugar 251-300 take 12 units short acting insulin If blood sugar 301-350 take 14 units short acting insulin If blood sugar greater than 350 take 14 units insulin and call physician for further instructions. insulin glargine 100 unit/mL (3 mL) insulin pen 22 unit SQ BID Qty: 10 10RF Changed bumetanide 1 mg tablet 4 mg PO BIDL 30 Days Qty: 240 0RF Patient Comments: TAKE 3 TABLETS BY MOUTH 2 TIMES A DAY Held hydralazine 50 mg tablet 50 mg PO TID Qty: 90 2RF Hold Instructions: re-evaluate as outpt, consider resuming if BP >140 Discontinued hydrocodone-acetaminophen 7.5-325 mg tablet 1 tab PO Q8HP PRN (Reason: Moderate Pain (Scale Score 5-6)) bumetanide 1 mg tablet 3 mg PO HS Patient Comments: TAKE 3 TABLETS BY MOUTH 2 TIMES A DAY Problem Reconciliation Problems Reviewed?: Yes Patient Discharge Instructions ACTIVITY: Continue current activity DIET: continue same diet Patient Instructions: Urinary Tract Infection, DI for Heart Failure, DI for Fecal Impaction, Stop Light Heart Failure, Stop Light Infection Print Language: Ukrainian Providers Primary Care Provider: Provider,Referral Admit Provider: Stef Paulino Attending Provider: Stef Paulino
[2024-11-28] MEDS: ASPIRIN EC 81MG TABLET 81 MG PO (08:13)
[2024-11-28] MEDS: HEPARIN SODIUM 5,000 UNIT/ML VIAL 5000 UNIT SUBCUT (08:13)
[2024-11-28] MEDS: NIFEdipine XL 30MG TABLET 90 MG PO (08:13)
[2024-11-28] MEDS: INSULIN GLARGINE 100 UNITS/ML 3ML FLEXPEN 20 UNIT SUBCUT (08:14)
[2024-11-28] MEDS: NITROFURANTOIN 100MG CAPSULE 100 MG PO (08:14)
[2024-11-28] MEDS: GABAPENTIN 400MG CAPSULE 400 MG PO (08:14)
[2024-11-28 09:19] LABS: Eosinophils % 3 % (0-3); Lymphocytes % 44 % (10-50); Monocytes % 3 % (2-9); Neutrophils % 50 % (42-76); Platelet Estimate Normal; RBC Morphology Normal; Total Cells Counted 100
[2024-11-28] MEDS: AMOXICILLIN 500MG CAPSULE 500 MG PO (10:33)
--- NOTE | 2024-11-28 11:42 | PC.NURSE ---
Report called to nurse Slaughter at [facility].
== END 2024-11-28 13:00 ==
LOC: ER 23:41 → 2ND 11-24 00:20
PROVIDERS: Student in an Organized Health Care Education/Training Program; Admitting Provider Internal Medicine Adolescent Medicine; Emergency Provider Emergency Medicine; Visit Provider Internal Medicine Adolescent Medicine
DX: N39.0 Urinary tract infection, site not specified (principal); B95.2 Enterococcus as the cause of diseases classified elsewhere; R60.1 Generalized edema; K56.41 Fecal impaction; K52.89 Other specified noninfective gastroenteritis and colitis; E11.22 Type 2 diabetes mellitus with diabetic chronic kidney disease; I13.0 Hypertensive heart and chronic kidney disease with heart failure and stage 1 through stage 4 chronic kidney disease, or unspecified chronic kidney disease; I50.30 Unspecified diastolic (congestive) heart failure; N18.4 Chronic kidney disease, stage 4 (severe); D63.1 Anemia in chronic kidney disease; D64.9 Anemia, unspecified; Z79.4 Long term (current) use of insulin; E11.40 Type 2 diabetes mellitus with diabetic neuropathy, unspecified; E11.59 Type 2 diabetes mellitus with other circulatory complications; E03.9 Hypothyroidism, unspecified; F41.9 Anxiety disorder, unspecified; E78.5 Hyperlipidemia, unspecified; E66.9 Obesity, unspecified; Z68.33 Body mass index [BMI] 33.0-33.9, adult; Z79.82 Long term (current) use of aspirin; Z79.899 Other long term (current) drug therapy; Z79.890 Hormone replacement therapy; W19.XXXA Unspecified fall, initial encounter; Y92.481 Parking lot as the place of occurrence of the external cause; Z88.1 Allergy status to other antibiotic agents; Z88.2 Allergy status to sulfonamides; Z88.8 Allergy status to other drugs, medicaments and biological substances
CPT/HCPCS: 96365; 96367; 96375 ×5; 96376 ×2; 36415; 36430; 74176; 80053; 80061; 81001; 82962; 83605; 83690; 83735; 83880; 84100; 85007; 85014; 85018; 85025; 85027; 86850; 87040; 87086; 87088; 87186; 97110; 97116; 97162; 97166; 97530; 97535; 99291; G0378; J1644; J1756; J1938; J1939; J2405; J2543; J3475; J3480; P9016; P9047

== ENCOUNTER 2024-12-09 15:50 | Inpatient (IN) | payer MEDICARE, SELFPAY ==
--- OUTSIDE RECORDS SUMMARY | 2024-11-23 20:00 | XMS_ITS | Clinical Summary ---
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 Name Role Phone LINA SHEPHERD, VALENTIN Unavailable Unavailable ARMAND PT, ALINA Unavailable Unavailable TAVO COTE, JAI Unavailable Unavailable LARISSA JOHNSON, CHARITY Unavailable Unavailable Payers Payer Name Policy Type Policy Number Effective Date Expira tion Date MACEY.PPO.C.AUTH [id number] MEDICARE.[facility] [id number] Problems Condition Name Condition Details Condition Category Status Onset Date Resolution Date Last Treatment Date Treating Clinician Comments TYPE 2 DIABETES MELLITUS WITH FOOT ULCER Active 11-11 00:00: 00 NON-PRS CHR ULCER OF LEFT HEEL AND MIDFOOT W FAT LAYER EXPOS Active 11-11 00:00: 00 NON-PRS CHR ULCER OF RIGHT HEEL AND MIDFT W FAT LAYER EXPOS Active 11-11 00:00: 00 TYPE 2 DIABETES MELLITUS WITH DIABETIC POLYNEUROPAT HY Active 08-26 00:00: 00 TYPE 2 DIABETES W DIABETIC PERIPHERAL ANGIOPATH W/O GANGRENE Active 08-26 00:00: 00 HYP HRT AND CHR KDNY DIS W HRT FAIL AND STG 1-4/UNSP CHR KDNY Active 08-26 00:00: 00 HEART FAILURE, UNSPECIFIED Active 08-26 00:00: 00 TYPE 2 DIABETES MELLITUS W DIABETIC CHRONIC KIDNEY DISEASE Active 08-26 00:00: 00 CHRONIC KIDNEY DISEASE, STAGE 4 (SEVERE) Active 08-26 00:00: 00 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 08-26 00:00: 00 VENOUS INSUFFICIENC Y (CHRONIC) (PERIPHERAL) Active 08-26 00:00: 00 TYPE 2 DIABETES MELLITUS WITH HYPERGLYCEMI A Active 08-26 00:00: 00 CHRONIC LYMPHOCYTIC LEUK OF B-CELL TYPE NOT ACHIEVE REMIS Active 08-26 00:00: 00 GENERALIZED ANXIETY DISORDER Active 08-26 00:00: 00 HYPOTHYROIDI SM, UNSPECIFIED Active 08-26 00:00: 00 MIXED HYPERLIPIDEM IA Active 08-26 00:00: 00 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 Ordering Clinician Indication Dosage Frequency Signature (SIG) Comments Components cefdinir 300 mg capsule 07-27 00:00: 00 08-31 23:59 :00 No [id number] UTI 1 capsule 2 TIMES DAILY 1 capsule 2 TIMES DAILY (route: oral) Med Classific ation: Anti-Infe ctive Agents hydralazine 25 mg tablet 07-27 00:00: 00 10-21 23:59 :00 No [id number] HYPERTENSIO N 1 tablet 3 TIMES DAILY 1 tablet 3 TIMES DAILY (route: oral) Med Classific ation: Cardiovas cular Therapy Agents clonazepam 1 mg tablet 07-21 00:00: 00 Yes [id number] ANXIETY 1 tablet 3 TIMES DAILY 1 tablet 3 TIMES DAILY (route: oral) Med Classific ation: Central Nervous System Agents gabapentin 400 mg capsule 07-27 00:00: 00 Yes [id number] NERVE PAIN 1 capsule 3 TIMES DAILY 1 capsule 3 TIMES DAILY (route: oral) Med Classific ation: Central Nervous System Agents insulin glargine (U-100) 100 unit/mL (3 mL) subcutaneou s pen 1-28 00:00: 00 Yes [id number] DIABETES 18 unit 2 TIMES DAILY 18 unit 2 TIMES DAILY (route: [facility]) Med Classific ation: Endocrine insulin lispro (U-100) 100 unit/mL subcutaneou s pen 1- 00:00: 00 Yes [id number] DIABETES Per instruc tions 3 TIMES DAILY Per instructio ns 3 TIMES DAILY (route: [facility]) Med Classific ation: Endocrine levothyroxi ne 88 mcg tablet 8- 00:00: 00 Yes [id number] HYPOTHYROID 1 tablet DAILY 1 tablet DAILY (route: oral) Med Classific ation: Endocrine acetaminoph en 500 mg tablet 02-01 00:00: 00 Yes [id number] PAIN 2 tablet 3 TIMES DAILY 2 tablet 3 TIMES DAILY (route: oral) Med Classific ation: Analgesic , Anti-infl ammatory or Antipyret ic bumetanide 2 mg tablet -14 00:00: 00 Yes [id number] DIURETIC 1 tablet 3 TIMES DAILY 1 tablet 3 TIMES DAILY (route: oral) Med Classific ation: Cardiovas cular Therapy Agents cyanocobala min (vit B-12) 1,000 mcg sublingual tablet - 00:00: 00 Yes [id number] SUPPLIMENT 1 tablet DAILY 1 tablet DAILY (route: sublingual ) Med Classific ation: Electroly te Balance-N utritiona l Products hydrocodone 5 mg-acetamin ophen 325 mg tablet -14 00:00: 00 Yes [id number] PAIN 1 tablet EVERY 8 HOURS 1 tablet EVERY 8 HOURS (route: oral) Med Classific ation: Analgesic , Anti-infl ammatory or Antipyret ic spironolact one 50 mg tablet -14 00:00: 00 Yes [id number] DIURETIC 1 tablet DAILY 1 tablet DAILY (route: oral) Med Classific ation: Cardiovas cular Therapy Agents hydralazine 50 mg tablet 4-24 00:00: 00 Yes [id number] BLOOD PRESSURE 50 mg DAILY 50 mg DAILY (route: oral) Med Classific ation: Cardiovas cular Therapy Agents nifedipine ER 90 mg tablet,exte nded release 10-21 00:00: 00 Yes [id number] BLOOD PRESSURE 90 mg DAILY 90 mg DAILY (route: oral) Med Classific ation: Cardiovas cular Therapy Agents Vital Signs Vital Name Observation Time Observation Value Commen ts Temperature 2024-11-11 15::00.000 97.6 [degF] Pulse 2024-11-11 15:01:00.000 68 /min O2 Saturation (%) 2024-11-11 15:01:00.000 97 % Respirations 2024-11-11 15::00.000 18 /min Weight (lbs) 2024-11-11 15::00.000 193 [lb_av] Systolic Blood Pressure 2024-11-11 15::00.000 138 mm [Hg] Diastolic Blood Pressure 2024-11-11 15::00.000 90 mm [Hg] Plan of Treatment Planned Activity Planned Date Details Comments Future Scheduled Test RN TO OBSE RVE, ASSESS, EVALUATE, AND DEVELOP AN INDIVIDUALIZED PLAN OF CARE. AGENCY MAY ACCEPT ORDERS FROM CONSULTING PHYSICIANS RN TO OBSERVE AND ASSESS, SUPERVISOR NET MAKING/SERVICE STATION ATTENDANT TO OBSERVE FOR RISK FOR FALLS AND INSTRUCT IN FALL PREVENTION, HOME SAFETY, MEDICATION MANAGEMENT, INFECTION PREVENTION, AND NUTRITION MANAGEMENT. RN/SUPERVISOR NET MAKING/SERVICE STATION ATTENDANT NURSE MAY PERFORM O2 SATURATION LEVEL ON ADMISSION AND PRN FOR SOB FOR RN TO ASSESS/SUPERVISOR NET MAKING TO OBSERVE PATIENT, WITH NOTIFICATION TO THE PHYSICIAN IF SATURATION IS 90% IN THE ABSENCE OF MORE SPECIFIC PARAMETERS FROM THE PHYSICIAN. AGENCY MAY PERFORM A RESUMPTION OF CARE VISIT FOLLOWING ANY HOSPITAL ADMISSION. RN/SUPERVISOR NET MAKING/SERVICE STATION ATTENDANT TO MONITOR CO-MORBID CONDITIONS LISTED ON THE PLAN OF CARE AND ANY NEW CONDITIONS THAT PRESENT THEMSELVES DURING THIS EPISODE TO IDENTIFY CHANGES AND INTERVENE TO MINIMIZE COMPLICATIONS. [code = RN TO OBSERVE, ASSESS, EVALUATE, AND DEVELOP AN INDIVIDUALIZED PLAN OF CARE. AGENCY MAY ACCEPT ORDERS FROM CONSULTING PHYSICIANS RN TO OBSERVE AND ASSESS, SUPERVISOR NET MAKING/SERVICE STATION ATTENDANT TO OBSERVE FOR RISK FOR FALLS AND INSTRUCT IN FALL PREVENTION, HOME SAFETY, MEDICATION MANAGEMENT, INFECTION PREVENTION, AND NUTRITION MANAGEMENT. RN/SUPERVISOR NET MAKING/SERVICE STATION ATTENDANT NURSE MAY PERFORM O2 SATURATION LEVEL ON ADMISSION AND PRN FOR SOB FOR RN TO ASSESS/SUPERVISOR NET MAKING TO OBSERVE PATIENT, WITH NOTIFICATION TO THE PHYSICIAN IF SATURATION IS 90% IN THE ABSENCE OF MORE SPECIFIC PARAMETERS FROM THE PHYSICIAN. AGENCY MAY PERFORM A RESUMPTION OF CARE VISIT FOLLOWING ANY HOSPITAL ADMISSION. RN/SUPERVISOR NET MAKING/SERVICE STATION ATTENDANT TO MONITOR CO-MORBID CONDITIONS LISTED ON THE PLAN OF CARE AND ANY NEW CONDITIONS THAT PRESENT THEMSELVES DURING THIS EPISODE TO IDENTIFY CHANGES AND INTERVENE TO MINIMIZE COMPLICATIONS.] Future Scheduled Test HEART FAIL URE MONITORING RN/SERVICE STATION ATTENDANT/SUPERVISOR NET MAKING TO MONITOR PATIENT FOR SIGNS AND SYMPTOMS OF HEART FAILURE EXACERBATION, MONITOR FOR ADHERENCE WITH MEDICATION AND HEART FAILURE MANAGEMENT REGIMEN. [code = HEART FAILURE MONITORING RN/SERVICE STATION ATTENDANT/SUPERVISOR NET MAKING TO MONITOR PATIENT FOR SIGNS AND SYMPTOMS OF HEART FAILURE EXACERBATION, MONITOR FOR ADHERENCE WITH MEDICATION AND HEART FAILURE MANAGEMENT REGIMEN.] Future Scheduled Test DIABETES M ONITORING RN/SERVICE STATION ATTENDANT/SUPERVISOR NET MAKING TO MONITOR BLOOD SUGAR LOG FOR BLOOD SUGAR READINGS THAT ARE BEING CHECKED BY (PATIENT, CAREGIVER) 1 TIMES A DAY. PATIENT THERAPEUTIC BLOOD SUGAR PARAMETERS ARE 80-150 BEFORE MEALS. REPORT BLOOD SUGARS OUT OF RANGE TO PHYSICIAN. NURSE MAY PERFORM FINGER STICK BLOOD GLUCOSE NEEDED FOR SIGNS AND SYMPTOMS OF HYPO AND HYPERGLYCEMIA. RN/SERVICE STATION ATTENDANT/SUPERVISOR NET MAKING TO MONITOR ADHERENCE OF (PATIENT/CAREGIVER) PERFORMING DIABETIC FOOT CARE AND MAY PERFORM DIABETIC FOOT CARE PRN. RN/SERVICE STATION ATTENDANT/SUPERVISOR NET MAKING TO MONITOR FOR ADHERENCE TO DIABETIC SELF-CARE AND MANAGEMENT INCLUDING MEDICATIONS. [code = DIABETES MONITORING RN/SERVICE STATION ATTENDANT/SUPERVISOR NET MAKING TO MONITOR BLOOD SUGAR LOG FOR BLOOD SUGAR READINGS THAT ARE BEING CHECKED BY (PATIENT, CAREGIVER) 1 TIMES A DAY. PATIENT THERAPEUTIC BLOOD SUGAR PARAMETERS ARE 80-150 BEFORE MEALS. REPORT BLOOD SUGARS OUT OF RANGE TO PHYSICIAN. NURSE MAY PERFORM FINGER STICK BLOOD GLUCOSE NEEDED FOR SIGNS AND SYMPTOMS OF HYPO AND HYPERGLYCEMIA. RN/SERVICE STATION ATTENDANT/SUPERVISOR NET MAKING TO MONITOR ADHERENCE OF (PATIENT/CAREGIVER) PERFORMING DIABETIC FOOT CARE AND MAY PERFORM DIABETIC FOOT CARE PRN. RN/SERVICE STATION ATTENDANT/SUPERVISOR NET MAKING TO MONITOR FOR ADHERENCE TO DIABETIC SELF-CARE AND MANAGEMENT INCLUDING MEDICATIONS.] Future Scheduled Test MEDICATION MANAGEMENT; RN/SUPERVISOR NET MAKING/SERVICE STATION ATTENDANT TO REVIEW MEDICATIONS FOR INTERACTIONS, EFFECTIVENESS OF DRUG THERAPY, AND SIGNS/SYMPTOMS OF ADVERSE REACTIONS. MAY INSTRUCT AND REINFORCE MEDICATION TEACHING RELATED TO THE USE OF MEDICATIONS, DOSAGE, FREQUENCY, PURPOSE, SIDE EFFECTS, AND TO REPORT COMPLICATIONS. [code = MEDICATION MANAGEMENT; RN/SUPERVISOR NET MAKING/SERVICE STATION ATTENDANT TO REVIEW MEDICATIONS FOR INTERACTIONS, EFFECTIVENESS OF DRUG THERAPY, AND SIGNS/SYMPTOMS OF ADVERSE REACTIONS. MAY INSTRUCT AND REINFORCE MEDICATION TEACHING RELATED TO THE USE OF MEDICATIONS, DOSAGE, FREQUENCY, PURPOSE, SIDE EFFECTS, AND TO REPORT COMPLICATIONS.] Future Scheduled Test RISK FOR H OSPITALIZATION; RN TO ASSESS/TEACH, SERVICE STATION ATTENDANT/SUPERVISOR NET MAKING TO OBSERVE/TEACH PATIENT/CAREGIVER ON RISK FOR HOSPITALIZATION/EMERGENCY ROOM VISITS, TEACH SIGNS AND SYMPTOMS THAT PUT PATIENT AT RISK, WHEN TO NOTIFY NURSE/PHYSICIAN OF COMPLICATIONS/DECLINE, AND WHEN TO CALL 911. [code = RISK FOR HOSPITALIZATION; RN TO ASSESS/TEACH, SERVICE STATION ATTENDANT/SUPERVISOR NET MAKING TO OBSERVE/TEACH PATIENT/CAREGIVER ON RISK FOR HOSPITALIZATION/EMERGENCY ROOM VISITS, TEACH SIGNS AND SYMPTOMS THAT PUT PATIENT AT RISK, WHEN TO NOTIFY NURSE/PHYSICIAN OF COMPLICATIONS/DECLINE, AND WHEN TO CALL 911.] Future Scheduled Test CARDIOVASC ULAR SYSTEM; RN TO ASSESS/TEACH, SUPERVISOR NET MAKING/SERVICE STATION ATTENDANT TO OBSERVE/TEACH RELATED TO ALTERED CARDIOVASCULAR STATUS TO MINIMIZE COMPLICATIONS AND REDUCE HOSPITALIZATION. [code = CARDIOVASCULAR SYSTEM; RN TO ASSESS/TEACH, SUPERVISOR NET MAKING/SERVICE STATION ATTENDANT TO OBSERVE/TEACH RELATED TO ALTERED CARDIOVASCULAR STATUS TO MINIMIZE COMPLICATIONS AND REDUCE HOSPITALIZATION.] Future Scheduled Test HEART FAIL URE; RN TO ASSESS/TEACH, SUPERVISOR NET MAKING/SERVICE STATION ATTENDANT TO OBSERVE/TEACH CARDIOPULMONARY SYSTEM TO IDENTIFY SIGNS OF DECOMPENSATION AND INTERVENE TO MINIMIZE THE SEVERITY OF FLUID OVERLOAD. OBSERVE PATIENT ABILITY TO MONITOR AND RECORD DAILY WEIGHTS AND VITAL SIGNS, INCLUDING PULSE AND BLOOD PRESSURE; RECORD PATIENT REPORTED WEIGHT, OR WEIGH PATIENT NEEDED. REPORT INCREASED EDEMA OR WEIGHT GAIN OF >2 LBS IN 1 DAY OR >5 LBS IN 1 WEEK OR 5LBS OR MORE OVER TARGET WEIGHT. MAY MEASURE ABDOMINAL GIRTH IF UNABLE TO WEIGH. SCALES AND BP MONITOR TO BE PROVIDED IF NEEDED. [code = HEART FAILURE; RN TO ASSESS/TEACH, SUPERVISOR NET MAKING/SERVICE STATION ATTENDANT TO OBSERVE/TEACH CARDIOPULMONARY SYSTEM TO IDENTIFY SIGNS OF DECOMPENSATION AND INTERVENE TO MINIMIZE THE SEVERITY OF FLUID OVERLOAD. OBSERVE PATIENT ABILITY TO MONITOR AND RECORD DAILY WEIGHTS AND VITAL SIGNS, INCLUDING PULSE AND BLOOD PRESSURE; RECORD PATIENT REPORTED WEIGHT, OR WEIGH PATIENT NEEDED. REPORT INCREASED EDEMA OR WEIGHT GAIN OF >2 LBS IN 1 DAY OR >5 LBS IN 1 WEEK OR 5LBS OR MORE OVER TARGET WEIGHT. MAY MEASURE ABDOMINAL GIRTH IF UNABLE TO WEIGH. SCALES AND BP MONITOR TO BE PROVIDED IF NEEDED.] Future Scheduled Test HYPERTENSI ON MANAGEMENT; RN TO ASSESS AND TEACH, SUPERVISOR NET MAKING/SERVICE STATION ATTENDANT TO OBSERVE AND TEACH WARNING SIGNS AND SYMPTOMS TO AVOID HOSPITALIZATION. [code = HYPERTENSION MANAGEMENT; RN TO ASSESS AND TEACH, SUPERVISOR NET MAKING/SERVICE STATION ATTENDANT TO OBSERVE AND TEACH WARNING SIGNS AND SYMPTOMS TO AVOID HOSPITALIZATION.] Future Scheduled Test SKIN INTEG RITY RN TO ASSESS AND TEACH, SUPERVISOR NET MAKING/SERVICE STATION ATTENDANT TO OBSERVE AND TEACH INTEGUMENTARY STATUS TO IDENTIFY CHANGES AND INTERVENE TO MINIMIZE COMPLICATIONS. PROVIDE SKILLED TEACHING OF GENERAL WOUND AND SKIN CARE AND PREVENTION RELATED TO ACTUAL ALTERED SKIN INTEGRITY [code = SKIN INTEGRITY RN TO ASSESS AND TEACH, SUPERVISOR NET MAKING/SERVICE STATION ATTENDANT TO OBSERVE AND TEACH INTEGUMENTARY STATUS TO IDENTIFY CHANGES AND INTERVENE TO MINIMIZE COMPLICATIONS. PROVIDE SKILLED TEACHING OF GENERAL WOUND AND SKIN CARE AND PREVENTION RELATED TO ACTUAL ALTERED SKIN INTEGRITY] Future Scheduled Test RN/SUPERVISOR NET MAKING/SERVICE STATION ATTENDANT TO PERFORM/TEACH PATIENT/CAREGIVER WOUND CARE PRESSURE INJURY TO RIGHT HEAL: IRRIGATE/CLEANSE WITH WOUND CLEANSER, APPLY BETADINE SOAKED GAUZETOWOUNDBED, MAY APPLY SKIN BARRIER TO PERIWOUND PRN TO PREVENT MACERATION AND PROTECT PERIWOUND COVER WITH KERLEX AND THEN COBAN, CHANGE DRESSING 3 X WEEKLY AND PRN IF DISLODGED OR SOILED [code = RN/SUPERVISOR NET MAKING/SERVICE STATION ATTENDANT TO PERFORM/TEACH PATIENT/CAREGIVER WOUND CARE PRESSURE INJURY TO RIGHT HEAL: IRRIGATE/CLEANSE WITH WOUND CLEANSER, APPLY BETADINE SOAKED GAUZETOWOUNDBED, MAY APPLY SKIN BARRIER TO PERIWOUND PRN TO PREVENT MACERATION AND PROTECT PERIWOUND COVER WITH KERLEX AND THEN COBAN, CHANGE DRESSING 3 X WEEKLY AND PRN IF DISLODGED OR SOILED ] Future Scheduled Test PAIN MANAG EMENT; RN TO ASSESS AND TEACH, SERVICE STATION ATTENDANT/SUPERVISOR NET MAKING TO OBSERVE AND TEACH AND PROVIDE EDUCATION ON PAIN MANAGEMENT TECHNIQUES. [code = PAIN MANAGEMENT; RN TO ASSESS AND TEACH, SERVICE STATION ATTENDANT/SUPERVISOR NET MAKING TO OBSERVE AND TEACH AND PROVIDE EDUCATION ON PAIN MANAGEMENT TECHNIQUES.] Future Scheduled Test DIABETES M ANAGEMENT; RN TO ASSESS AND TEACH, SERVICE STATION ATTENDANT/SUPERVISOR NET MAKING TO OBSERVE AND TEACH INSTRUCTIONS OF DIABETIC CARE TO INCLUDE: DIET DIABETIC SKIN CARE, SIGNS AND SYMPTOMS OF HYPO/HYPERGLYCEMIA, PROPER ADMINISTRATION OF DIABETIC MEDICATION. RN/SERVICE STATION ATTENDANT/SUPERVISOR NET MAKING TO INSTRUCT ON DIABETIC FOOT CARE AND MONITOR FOR SKIN LESIONS ON LOWER EXTREMITIES. BLOOD GLUCOSE TESTING DAILY FREQ. RN TO ASSESS AND TEACH, SERVICE STATION ATTENDANT/SUPERVISOR NET MAKING TO OBSERVE AND TEACH PATIENT/CAREGIVER ABILITY TO PERFORM AND RECORD BLOOD GLUCOSE TESTING ORDERED AND TO REPORT ABNORMAL FINDINGS TO PHYSICIAN. RN/SERVICE STATION ATTENDANT/SUPERVISOR NET MAKING MAY PERFORM BLOOD GLUCOSE TEST NEEDED. RN/SERVICE STATION ATTENDANT/SUPERVISOR NET MAKING TO REPORT TO PHYSICIAN BLOOD GLUCOSE READINGS GREATER THAN 350 OR LESS THAN 60 RN/SERVICE STATION ATTENDANT/SUPERVISOR NET MAKING TO INSTRUCT PATIENT ON IMPORTANCE OF HGBA1C MONITORING, KIDNEY FUNCTION TEST, EYE AND FOOT EXAMS. [code = DIABETES MANAGEMENT; RN TO ASSESS AND TEACH, SERVICE STATION ATTENDANT/SUPERVISOR NET MAKING TO OBSERVE AND TEACH INSTRUCTIONS OF DIABETIC CARE TO INCLUDE: DIET DIABETIC SKIN CARE, SIGNS AND SYMPTOMS OF HYPO/HYPERGLYCEMIA, PROPER ADMINISTRATION OF DIABETIC MEDICATION. RN/SERVICE STATION ATTENDANT/SUPERVISOR NET MAKING TO INSTRUCT ON DIABETIC FOOT CARE AND MONITOR FOR SKIN LESIONS ON LOWER EXTREMITIES. BLOOD GLUCOSE TESTING DAILY FREQ. RN TO ASSESS AND TEACH, SERVICE STATION ATTENDANT/SUPERVISOR NET MAKING TO OBSERVE AND TEACH PATIENT/CAREGIVER ABILITY TO PERFORM AND RECORD BLOOD GLUCOSE TESTING ORDERED AND TO REPORT ABNORMAL FINDINGS TO PHYSICIAN. RN/SERVICE STATION ATTENDANT/SUPERVISOR NET MAKING MAY PERFORM BLOOD GLUCOSE TEST NEEDED. RN/SERVICE STATION ATTENDANT/SUPERVISOR NET MAKING TO REPORT TO PHYSICIAN BLOOD GLUCOSE READINGS GREATER THAN 350 OR LESS THAN 60 RN/SERVICE STATION ATTENDANT/SUPERVISOR NET MAKING TO INSTRUCT PATIENT ON IMPORTANCE OF HGBA1C MONITORING, KIDNEY FUNCTION TEST, EYE AND FOOT EXAMS.] Future Scheduled Test FALL REDUC TION MANAGEMENT; RN TO ASSESS AND OBSERVE, SUPERVISOR NET MAKING/SERVICE STATION ATTENDANT TO OBSERVE FALL RISK FACTORS AND EDUCATE PATIENT/CAREGIVER ON STRATEGIES TO MINIMIZE THE RISK OF FALLING. [code = FALL REDUCTION MANAGEMENT; RN TO ASSESS AND OBSERVE, SUPERVISOR NET MAKING/SERVICE STATION ATTENDANT TO OBSERVE FALL RISK FACTORS AND EDUCATE PATIENT/CAREGIVER ON STRATEGIES TO MINIMIZE THE RISK OF FALLING.] Goal 2024-11-24 Patient Goal - BETTER BALANC E Goal 2024-10-29 Patient Goal - BETTER BALANC E Goal 2024-11-11 Patient Goal - BETTER BALANC E Goal Provider Goal - A PLAN OF CARE WILL BE ESTABLISHED THAT MEETS THE PATIENTS NEEDS. PATIENT WILL DEMONSTRATE OXYGEN SATURATION WITHIN NORMAL LIMITS OR PATIENTS OPTIMAL LEVEL ESTABLISHED BY THE PHYSICIAN THROUGHOUT CARE. CHANGES TO CO-MORBID CONDITIONS AND ANY NEW CONDITIONS WILL BE IDENTIFIED AND REPORTED TO THE PHYSICIAN. Goal Provider Goal - HEART FAILURE CONDITION WILL BE CONTROLLED THROUGHOUT THE EPISODE. Goal Provider Goal - BLOOD SUGARS WILL REMAIN WITHIN ESTABLISHED RANGES AND DIABETES CONTROLLED THROUGHOUT EPISODE. Goal Provider Goal - PATIENT/CAREGIVER TO VERBALIZE, AND CONSISTENTLY DEMONSTRATE EFFECTIVE, SAFE MANAGEMENT OF MEDICATION INCLUDING KNOWLEDGE OF EFFECTIVENESS, POTENTIAL SIDE EFFECTS AND DRUG REACTIONS AND WHEN TO CONTACT THE APPROPRIATE CARE PROVIDER. PATIENT/CAREGIVER WILL BE ABLE TO VERBALIZE UNDERSTANDING OF MEDICATION REGIMEN AND ACCURATELY TAKE MEDICATIONS PRESCRIBED WITHOUT ADVERSE EFFECTS BY 7.18.25 Goal Provider Goal - PATIENT/CAREGIVER WILL VERBALIZE UNDERSTANDING OF SIGNS AND SYMPTOMS THAT PUT THE PATIENT AT RISK FOR HOSPITALIZATION /EMERGENCY ROOM VISITS, WHEN TO NOTIFY NURSE/PHYSICIAN OF COMPLICATIONS/DECLINE AND WHEN TO CALL 911. Goal Provider Goal - PATIENT / CAREGIVER WILL VERBALIZE/DEMONSTRATE UNDERSTANDING OF MEASURES TO MANAGE ALTERED CARDIOVASCULAR STATUS BY 7.18.25 Goal Provider Goal - PATIENT / CAREGIVER WILL VERBALIZE/DEMONSTRATE AN ABILITY TO ADHERE TO SELF-MANAGEMENT OF HF TO MINIMIZE COMPLICATIONS AND AVOID HOSPITALIZATION BY END OF EPISODE. Goal Provider Goal - PATIENT / CAREGIVER WILL VERBALIZE/DEMONSTRATE AN ABILITY TO ADHERE TO SELF-MANAGEMENT OF HTN TO MINIMIZE COMPLICATIONS AND AVOID HOSPITALIZATION BY END OF EPISODE. Goal Provider Goal - CHANGES IN SKIN INTEGRITY STATUS WILL BE IDENTIFIED AND REPORTED TO THE PHYSICIAN FOR PROMPT INTERVENTION. PATIENT / CAREGIVER WILL VERBALIZE/DEMONSTRATE ADEQUATE KNOWLEDGE OF INTEGUMENTARY STATUS AND APPROPRIATE MEASURES TO PROMOTE SKIN INTEGRITY AND PREVENT INJURY BY 7.18.25 Goal Provider Goal - PATIENT / CAREGIVER WILL VERBALIZE / DEMONSTRATE ABILITY TO PERFORM WOUND CARE. WOUND STATUS WILL IMPROVE EVIDENCED BY A DECREASE IN SIZE, DRAINAGE, ABSENCE OF INFECTION, AND DECREASED PAIN BY END OF EPISODE. Goal Provider Goal - PATIENT / CAREGIVER WILL VERBALIZE / DEMONSTRATE UNDERSTANDING OF PAIN CONTROL MEASURES BY 7.18.25 Goal Provider Goal - PATIENT / CAREGIVER WILL VERBALIZE / DEMONSTRATE AN ABILITY TO ADHERE TO SELF-MANAGEMENT OF DIABETES MANAGEMENT BY 7.18.25 Goal Provider Goal - PATIENT/CAREGIVER WILL VERBALIZE/DEMONSTRATE UNDERSTANDING OF FALL RISK FACTORS AND IMPLEMENT STRATEGIES TO MINIMIZE FALL RISK. PATIENT/CAREGIVER WILL VERBALIZE/DEMONSTRATE AN ABILITY TO ADHERE TO FALL REDUCTION SELF-MANAGEMENT AND LIFE-STYLE CHANGES BY 7.18.25 Reason for Visit MODERATE ASSIST WITH TRANSFER/AMBULATION/ADLS Encounters Start Date/Time End Date/Time Encounter Type Admission Type Attending [facility] Facility Care Department Encounter ID Discharge Date Discharge Status Discharge Condition Discharge Reason Percent Goals Met 2024-11-10 00:00:00 2024-11-24 00:00:00 Outpatient [facility] [id number] 2024-11-24 00:00:00 DISCHARGED /TRANSFERR ED TO A [facility] FACILITY (SNF) WITH MEDICARE CERTIFICAT ION IN ANTICIPATI ON OF SKILLED CARE MODERATE ASSIST WITH TRANSFER/A MBULATION/ ADLS HH ONLY - TRANSFER TO HOSPITAL 17.65
--- OUTSIDE RECORDS SUMMARY | 2024-11-23 20:00 | XMS_ITS | Clinical Summary ---
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 08-26 00:00: [...] 07-27 00:00: 00 08-31 23:59 :00 No [id number] UTI 1 capsule 2 TIMES DAILY 1 capsule 2 TIMES DAILY (route: oral) Med Classific ation: Anti-Infe ctive Agents hydralazine 25 mg tablet 07-27 00:00: 00 10-21 23:59 :00 No [id number] HYPERTENSIO N 1 tablet 3 TIMES DAILY 1 tablet 3 TIMES DAILY (route: oral) Med Classific ation: Cardiovas cular Therapy Agents clonazepam 1 mg tablet 07-21 00:00: 00 Yes [id number] ANXIETY 1 tablet 3 TIMES DAILY 1 tablet 3 TIMES DAILY (route: oral) Med Classific ation: Central Nervous System Agents gabapentin 400 mg capsule 07-27 00:00: 00 Yes [id number] NERVE PAIN 1 capsule 3 TIMES DAILY 1 capsule 3 TIMES DAILY (route: oral) Med Classific ation: Central Nervous System Agents insulin glargine (U-100) 100 unit/mL (3 mL) subcutaneou s pen 1-28 00:00: 00 Yes [id number] DIABETES 18 unit 2 TIMES DAILY 18 unit 2 TIMES DAILY (route: [facility]) Med Classific ation: Endocrine insulin lispro (U-100) 100 unit/mL subcutaneou s pen 1- 00:00: 00 Yes [id number] DIABETES Per instruc tions 3 TIMES DAILY Per instructio ns 3 TIMES DAILY (route: [facility]) Med Classific ation: Endocrine levothyroxi ne 88 mcg tablet 8- 00:00: 00 Yes [id number] HYPOTHYROID 1 tablet DAILY 1 tablet DAILY (route: oral) Med Classific ation: Endocrine acetaminoph en 500 mg tablet 02-01 00:00: 00 Yes [id number] PAIN 2 tablet 3 TIMES DAILY 2 tablet 3 TIMES DAILY (route: oral) Med Classific ation: Analgesic , Anti-infl ammatory or Antipyret ic bumetanide 2 mg tablet -14 00:00: 00 Yes [id number] DIURETIC 1 tablet 3 TIMES DAILY 1 tablet 3 TIMES DAILY (route: oral) Med Classific ation: Cardiovas cular Therapy Agents cyanocobala min (vit B-12) 1,000 mcg sublingual tablet 14 00:00: 00 Yes [id number] SUPPLIMENT 1 tablet DAILY 1 tablet DAILY (route: sublingual ) Med Classific ation: Electroly te Balance-N utritiona l Products hydrocodone 5 mg-acetamin ophen 325 mg tablet -14 00:00: 00 Yes [id number] PAIN 1 tablet EVERY 8 HOURS 1 tablet EVERY 8 HOURS (route: oral) Med Classific ation: Analgesic , Anti-infl ammatory or Antipyret ic spironolact one 50 mg tablet -14 00:00: 00 Yes [id number] DIURETIC 1 tablet DAILY 1 tablet DAILY (route: oral) Med Classific ation: Cardiovas cular Therapy Agents hydralazine 50 mg tablet 4-24 00:00: 00 Yes [id number] BLOOD PRESSURE 50 mg DAILY 50 mg DAILY (route: oral) Med Classific ation: Cardiovas cular Therapy Agents nifedipine ER 90 mg tablet,exte nded release 10-21 00:00: 00 Yes [id number] BLOOD PRESSURE 90 mg DAILY 90 mg [...] CONSULTING PHYSICIANS RN TO OBSERVE AND ASSESS, METAL NUMERICAL TOOL PROGRAMMER/LANDSCAPE CREW MEMBER TO OBSERVE FOR RISK FOR FALLS AND INSTRUCT IN FALL PREVENTION, HOME SAFETY, MEDICATION MANAGEMENT, INFECTION PREVENTION, AND NUTRITION MANAGEMENT. RN/METAL NUMERICAL TOOL PROGRAMMER/LANDSCAPE CREW MEMBER NURSE MAY PERFORM O2 SATURATION LEVEL ON ADMISSION AND PRN FOR SOB FOR RN TO ASSESS/METAL NUMERICAL TOOL PROGRAMMER TO OBSERVE PATIENT, WITH NOTIFICATION TO THE PHYSICIAN IF SATURATION IS 90% IN THE ABSENCE OF MORE SPECIFIC PARAMETERS FROM THE PHYSICIAN. AGENCY MAY PERFORM A RESUMPTION OF CARE VISIT FOLLOWING ANY HOSPITAL ADMISSION. RN/METAL NUMERICAL TOOL PROGRAMMER/LANDSCAPE CREW MEMBER TO MONITOR CO-MORBID CONDITIONS LISTED ON THE PLAN OF CARE AND ANY NEW CONDITIONS THAT PRESENT THEMSELVES DURING THIS EPISODE TO IDENTIFY CHANGES AND INTERVENE TO MINIMIZE COMPLICATIONS. [code = RN TO OBSERVE, ASSESS, EVALUATE, AND DEVELOP AN INDIVIDUALIZED PLAN OF CARE. AGENCY MAY ACCEPT ORDERS FROM CONSULTING PHYSICIANS RN TO OBSERVE AND ASSESS, METAL NUMERICAL TOOL PROGRAMMER/LANDSCAPE CREW MEMBER TO OBSERVE FOR RISK FOR FALLS AND INSTRUCT IN FALL PREVENTION, HOME SAFETY, MEDICATION MANAGEMENT, INFECTION PREVENTION, AND NUTRITION MANAGEMENT. RN/METAL NUMERICAL TOOL PROGRAMMER/LANDSCAPE CREW MEMBER NURSE MAY PERFORM O2 SATURATION LEVEL ON ADMISSION AND PRN FOR SOB FOR RN TO ASSESS/METAL NUMERICAL TOOL PROGRAMMER TO OBSERVE PATIENT, WITH NOTIFICATION TO THE PHYSICIAN IF SATURATION IS 90% IN THE ABSENCE OF MORE SPECIFIC PARAMETERS FROM THE PHYSICIAN. AGENCY MAY PERFORM A RESUMPTION OF CARE VISIT FOLLOWING ANY HOSPITAL ADMISSION. RN/METAL NUMERICAL TOOL PROGRAMMER/LANDSCAPE CREW MEMBER TO MONITOR CO-MORBID CONDITIONS LISTED ON THE PLAN OF CARE AND ANY NEW CONDITIONS THAT PRESENT THEMSELVES DURING THIS EPISODE TO IDENTIFY CHANGES AND INTERVENE TO MINIMIZE COMPLICATIONS.] Future Scheduled Test HEART FAIL URE MONITORING RN/LANDSCAPE CREW MEMBER/METAL NUMERICAL TOOL PROGRAMMER TO MONITOR PATIENT FOR SIGNS AND SYMPTOMS OF HEART FAILURE EXACERBATION, MONITOR FOR ADHERENCE WITH MEDICATION AND HEART FAILURE MANAGEMENT REGIMEN. [code = HEART FAILURE MONITORING RN/LANDSCAPE CREW MEMBER/METAL NUMERICAL TOOL PROGRAMMER TO MONITOR PATIENT FOR SIGNS AND SYMPTOMS OF HEART FAILURE EXACERBATION, MONITOR FOR ADHERENCE WITH MEDICATION AND HEART FAILURE MANAGEMENT REGIMEN.] Future Scheduled Test DIABETES M ONITORING RN/LANDSCAPE CREW MEMBER/METAL NUMERICAL TOOL PROGRAMMER TO MONITOR BLOOD SUGAR LOG FOR BLOOD SUGAR READINGS THAT ARE BEING CHECKED BY (PATIENT, CAREGIVER) 1 TIMES A DAY. PATIENT THERAPEUTIC BLOOD SUGAR PARAMETERS ARE 80-150 BEFORE MEALS. REPORT BLOOD SUGARS OUT OF RANGE TO PHYSICIAN. NURSE MAY PERFORM FINGER STICK BLOOD GLUCOSE NEEDED FOR SIGNS AND SYMPTOMS OF HYPO AND HYPERGLYCEMIA. RN/LANDSCAPE CREW MEMBER/METAL NUMERICAL TOOL PROGRAMMER TO MONITOR ADHERENCE OF (PATIENT/CAREGIVER) PERFORMING DIABETIC FOOT CARE AND MAY PERFORM DIABETIC FOOT CARE PRN. RN/LANDSCAPE CREW MEMBER/METAL NUMERICAL TOOL PROGRAMMER TO MONITOR FOR ADHERENCE TO DIABETIC SELF-CARE AND MANAGEMENT INCLUDING MEDICATIONS. [code = DIABETES MONITORING RN/LANDSCAPE CREW MEMBER/METAL NUMERICAL TOOL PROGRAMMER TO MONITOR BLOOD SUGAR LOG FOR BLOOD SUGAR READINGS THAT ARE BEING CHECKED BY (PATIENT, CAREGIVER) 1 TIMES A DAY. PATIENT THERAPEUTIC BLOOD SUGAR PARAMETERS ARE 80-150 BEFORE MEALS. REPORT BLOOD SUGARS OUT OF RANGE TO PHYSICIAN. NURSE MAY PERFORM FINGER STICK BLOOD GLUCOSE NEEDED FOR SIGNS AND SYMPTOMS OF HYPO AND HYPERGLYCEMIA. RN/LANDSCAPE CREW MEMBER/METAL NUMERICAL TOOL PROGRAMMER TO MONITOR ADHERENCE OF (PATIENT/CAREGIVER) PERFORMING DIABETIC FOOT CARE AND MAY PERFORM DIABETIC FOOT CARE PRN. RN/LANDSCAPE CREW MEMBER/METAL NUMERICAL TOOL PROGRAMMER TO MONITOR FOR ADHERENCE TO DIABETIC SELF-CARE AND MANAGEMENT INCLUDING MEDICATIONS.] Future Scheduled Test MEDICATION MANAGEMENT; RN/METAL NUMERICAL TOOL PROGRAMMER/LANDSCAPE CREW MEMBER TO REVIEW MEDICATIONS FOR INTERACTIONS, EFFECTIVENESS OF DRUG THERAPY, AND SIGNS/SYMPTOMS OF ADVERSE REACTIONS. MAY INSTRUCT AND REINFORCE MEDICATION TEACHING RELATED TO THE USE OF MEDICATIONS, DOSAGE, FREQUENCY, PURPOSE, SIDE EFFECTS, AND TO REPORT COMPLICATIONS. [code = MEDICATION MANAGEMENT; RN/METAL NUMERICAL TOOL PROGRAMMER/LANDSCAPE CREW MEMBER TO REVIEW MEDICATIONS FOR INTERACTIONS, EFFECTIVENESS OF DRUG THERAPY, AND SIGNS/SYMPTOMS OF ADVERSE REACTIONS. MAY INSTRUCT AND REINFORCE MEDICATION TEACHING RELATED TO THE USE OF MEDICATIONS, DOSAGE, FREQUENCY, PURPOSE, SIDE EFFECTS, AND TO REPORT COMPLICATIONS.] Future Scheduled Test RISK FOR H OSPITALIZATION; RN TO ASSESS/TEACH, LANDSCAPE CREW MEMBER/METAL NUMERICAL TOOL PROGRAMMER TO OBSERVE/TEACH PATIENT/CAREGIVER ON RISK FOR HOSPITALIZATION/EMERGENCY ROOM VISITS, TEACH SIGNS AND SYMPTOMS THAT PUT PATIENT AT RISK, WHEN TO NOTIFY NURSE/PHYSICIAN OF COMPLICATIONS/DECLINE, AND WHEN TO CALL 911. [code = RISK FOR HOSPITALIZATION; RN TO ASSESS/TEACH, LANDSCAPE CREW MEMBER/METAL NUMERICAL TOOL PROGRAMMER TO OBSERVE/TEACH PATIENT/CAREGIVER ON RISK FOR HOSPITALIZATION/EMERGENCY ROOM VISITS, TEACH SIGNS AND SYMPTOMS THAT PUT PATIENT AT RISK, WHEN TO NOTIFY NURSE/PHYSICIAN OF COMPLICATIONS/DECLINE, AND WHEN TO CALL 911.] Future Scheduled Test CARDIOVASC ULAR SYSTEM; RN TO ASSESS/TEACH, METAL NUMERICAL TOOL PROGRAMMER/LANDSCAPE CREW MEMBER TO OBSERVE/TEACH RELATED TO ALTERED CARDIOVASCULAR STATUS TO MINIMIZE COMPLICATIONS AND REDUCE HOSPITALIZATION. [code = CARDIOVASCULAR SYSTEM; RN TO ASSESS/TEACH, METAL NUMERICAL TOOL PROGRAMMER/LANDSCAPE CREW MEMBER TO OBSERVE/TEACH RELATED TO ALTERED CARDIOVASCULAR STATUS TO MINIMIZE COMPLICATIONS AND REDUCE HOSPITALIZATION.] Future Scheduled Test HEART FAIL URE; RN TO ASSESS/TEACH, METAL NUMERICAL TOOL PROGRAMMER/LANDSCAPE CREW MEMBER TO OBSERVE/TEACH CARDIOPULMONARY SYSTEM TO IDENTIFY SIGNS [...] [code = HEART FAILURE; RN TO ASSESS/TEACH, METAL NUMERICAL TOOL PROGRAMMER/LANDSCAPE CREW MEMBER TO OBSERVE/TEACH CARDIOPULMONARY SYSTEM TO IDENTIFY SIGNS [...] ON MANAGEMENT; RN TO ASSESS AND TEACH, METAL NUMERICAL TOOL PROGRAMMER/LANDSCAPE CREW MEMBER TO OBSERVE AND TEACH WARNING SIGNS AND SYMPTOMS TO AVOID HOSPITALIZATION. [code = HYPERTENSION MANAGEMENT; RN TO ASSESS AND TEACH, METAL NUMERICAL TOOL PROGRAMMER/LANDSCAPE CREW MEMBER TO OBSERVE AND TEACH WARNING SIGNS AND SYMPTOMS TO AVOID HOSPITALIZATION.] Future Scheduled Test SKIN INTEG RITY RN TO ASSESS AND TEACH, METAL NUMERICAL TOOL PROGRAMMER/LANDSCAPE CREW MEMBER TO OBSERVE AND TEACH INTEGUMENTARY STATUS TO IDENTIFY CHANGES AND INTERVENE TO MINIMIZE COMPLICATIONS. PROVIDE SKILLED TEACHING OF GENERAL WOUND AND SKIN CARE AND PREVENTION RELATED TO ACTUAL ALTERED SKIN INTEGRITY [code = SKIN INTEGRITY RN TO ASSESS AND TEACH, METAL NUMERICAL TOOL PROGRAMMER/LANDSCAPE CREW MEMBER TO OBSERVE AND TEACH INTEGUMENTARY STATUS TO IDENTIFY CHANGES AND INTERVENE TO MINIMIZE COMPLICATIONS. PROVIDE SKILLED TEACHING OF GENERAL WOUND AND SKIN CARE AND PREVENTION RELATED TO ACTUAL ALTERED SKIN INTEGRITY] Future Scheduled Test RN/METAL NUMERICAL TOOL PROGRAMMER/LANDSCAPE CREW MEMBER TO PERFORM/TEACH PATIENT/CAREGIVER WOUND CARE PRESSURE INJURY TO RIGHT HEAL: IRRIGATE/CLEANSE WITH WOUND CLEANSER, APPLY BETADINE SOAKED GAUZETOWOUNDBED, MAY APPLY SKIN BARRIER TO PERIWOUND PRN TO PREVENT MACERATION AND PROTECT PERIWOUND COVER WITH KERLEX AND THEN COBAN, CHANGE DRESSING 3 X WEEKLY AND PRN IF DISLODGED OR SOILED [code = RN/METAL NUMERICAL TOOL PROGRAMMER/LANDSCAPE CREW MEMBER TO PERFORM/TEACH PATIENT/CAREGIVER WOUND CARE PRESSURE INJURY TO RIGHT HEAL: IRRIGATE/CLEANSE WITH WOUND CLEANSER, APPLY BETADINE SOAKED GAUZETOWOUNDBED, MAY APPLY SKIN BARRIER TO PERIWOUND PRN TO PREVENT MACERATION AND PROTECT PERIWOUND COVER WITH KERLEX AND THEN COBAN, CHANGE DRESSING 3 X WEEKLY AND PRN IF DISLODGED OR SOILED ] Future Scheduled Test PAIN MANAG EMENT; RN TO ASSESS AND TEACH, LANDSCAPE CREW MEMBER/METAL NUMERICAL TOOL PROGRAMMER TO OBSERVE AND TEACH AND PROVIDE EDUCATION ON PAIN MANAGEMENT TECHNIQUES. [code = PAIN MANAGEMENT; RN TO ASSESS AND TEACH, LANDSCAPE CREW MEMBER/METAL NUMERICAL TOOL PROGRAMMER TO OBSERVE AND TEACH AND PROVIDE EDUCATION ON PAIN MANAGEMENT TECHNIQUES.] Future Scheduled Test DIABETES M ANAGEMENT; RN TO ASSESS AND TEACH, LANDSCAPE CREW MEMBER/METAL NUMERICAL TOOL PROGRAMMER TO OBSERVE AND TEACH INSTRUCTIONS OF DIABETIC CARE TO INCLUDE: DIET DIABETIC SKIN CARE, SIGNS AND SYMPTOMS OF HYPO/HYPERGLYCEMIA, PROPER ADMINISTRATION OF DIABETIC MEDICATION. RN/LANDSCAPE CREW MEMBER/METAL NUMERICAL TOOL PROGRAMMER TO INSTRUCT ON DIABETIC FOOT CARE AND MONITOR FOR SKIN LESIONS ON LOWER EXTREMITIES. BLOOD GLUCOSE TESTING DAILY FREQ. RN TO ASSESS AND TEACH, LANDSCAPE CREW MEMBER/METAL NUMERICAL TOOL PROGRAMMER TO OBSERVE AND TEACH PATIENT/CAREGIVER ABILITY TO PERFORM AND RECORD BLOOD GLUCOSE TESTING ORDERED AND TO REPORT ABNORMAL FINDINGS TO PHYSICIAN. RN/LANDSCAPE CREW MEMBER/METAL NUMERICAL TOOL PROGRAMMER MAY PERFORM BLOOD GLUCOSE TEST NEEDED. RN/LANDSCAPE CREW MEMBER/METAL NUMERICAL TOOL PROGRAMMER TO REPORT TO PHYSICIAN BLOOD GLUCOSE READINGS GREATER THAN 350 OR LESS THAN 60 RN/LANDSCAPE CREW MEMBER/METAL NUMERICAL TOOL PROGRAMMER TO INSTRUCT PATIENT ON IMPORTANCE OF HGBA1C MONITORING, KIDNEY FUNCTION TEST, EYE AND FOOT EXAMS. [code = DIABETES MANAGEMENT; RN TO ASSESS AND TEACH, LANDSCAPE CREW MEMBER/METAL NUMERICAL TOOL PROGRAMMER TO OBSERVE AND TEACH INSTRUCTIONS OF DIABETIC CARE TO INCLUDE: DIET DIABETIC SKIN CARE, SIGNS AND SYMPTOMS OF HYPO/HYPERGLYCEMIA, PROPER ADMINISTRATION OF DIABETIC MEDICATION. RN/LANDSCAPE CREW MEMBER/METAL NUMERICAL TOOL PROGRAMMER TO INSTRUCT ON DIABETIC FOOT CARE AND MONITOR FOR SKIN LESIONS ON LOWER EXTREMITIES. BLOOD GLUCOSE TESTING DAILY FREQ. RN TO ASSESS AND TEACH, LANDSCAPE CREW MEMBER/METAL NUMERICAL TOOL PROGRAMMER TO OBSERVE AND TEACH PATIENT/CAREGIVER ABILITY TO PERFORM AND RECORD BLOOD GLUCOSE TESTING ORDERED AND TO REPORT ABNORMAL FINDINGS TO PHYSICIAN. RN/LANDSCAPE CREW MEMBER/METAL NUMERICAL TOOL PROGRAMMER MAY PERFORM BLOOD GLUCOSE TEST NEEDED. RN/LANDSCAPE CREW MEMBER/METAL NUMERICAL TOOL PROGRAMMER TO REPORT TO PHYSICIAN BLOOD GLUCOSE READINGS GREATER THAN 350 OR LESS THAN 60 RN/LANDSCAPE CREW MEMBER/METAL NUMERICAL TOOL PROGRAMMER TO INSTRUCT PATIENT ON IMPORTANCE OF HGBA1C MONITORING, KIDNEY FUNCTION TEST, EYE AND FOOT EXAMS.] Future Scheduled Test FALL REDUC TION MANAGEMENT; RN TO ASSESS AND OBSERVE, METAL NUMERICAL TOOL PROGRAMMER/LANDSCAPE CREW MEMBER TO OBSERVE FALL RISK FACTORS AND EDUCATE PATIENT/CAREGIVER ON STRATEGIES TO MINIMIZE THE RISK OF FALLING. [code = FALL REDUCTION MANAGEMENT; RN TO ASSESS AND OBSERVE, METAL NUMERICAL TOOL PROGRAMMER/LANDSCAPE CREW MEMBER TO OBSERVE FALL RISK FACTORS AND EDUCATE [...] End Date/Time Encounter Type Admission Type Attending [facility] Care Department Encounter ID Discharge Date Discharge Status Discharge Condition Discharge Reason Percent Goals Met 2024-11-10 00:00:00 2024-11-24 00:00:00 Outpatient [facility] [id number] 2024-11-24 00:00:00 DISCHARGED /TRANSFERR ED TO A PRISON FACILITY (SNF) WITH MEDICARE CERTIFICAT ION IN ANTICIPATI ON OF SKILLED CARE MODERATE ASSIST WITH TRANSFER/A MBULATION/ [facility] ONLY - TRANSFER TO HOSPITAL 17.65
--- OUTSIDE RECORDS SUMMARY | 2024-11-23 20:00 | XMS_ITS | Clinical Summary ---
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 Active 08-26 00:00: [...] 07-27 00:00: 00 08-31 23:59 :00 No [id number] UTI 1 capsule 2 TIMES DAILY 1 capsule 2 TIMES DAILY (route: oral) Med Classific ation: Anti-Infe ctive Agents hydralazine 25 mg tablet 07-27 00:00: 00 10-21 23:59 :00 No [id number] HYPERTENSIO N 1 tablet 3 TIMES DAILY 1 tablet 3 TIMES DAILY (route: oral) Med Classific ation: Cardiovas cular Therapy Agents clonazepam 1 mg tablet 07-21 00:00: 00 Yes [id number] ANXIETY 1 tablet 3 TIMES DAILY 1 tablet 3 TIMES DAILY (route: oral) Med Classific ation: Central Nervous System Agents gabapentin 400 mg capsule 07-27 00:00: 00 Yes [id number] NERVE PAIN 1 capsule 3 TIMES DAILY 1 capsule 3 TIMES DAILY (route: oral) Med Classific ation: Central Nervous System Agents insulin glargine (U-100) 100 unit/mL (3 mL) subcutaneou s pen 1-28 00:00: 00 Yes [id number] DIABETES 18 unit 2 TIMES DAILY 18 unit 2 TIMES DAILY (route: [facility]) Med Classific ation: Endocrine insulin lispro (U-100) 100 unit/mL subcutaneou s pen 1- 00:00: 00 Yes [id number] DIABETES Per instruc tions 3 TIMES DAILY Per instructio ns 3 TIMES DAILY (route: [facility]) Med Classific ation: Endocrine levothyroxi ne 88 mcg tablet 8- 00:00: 00 Yes [id number] HYPOTHYROID 1 tablet DAILY 1 tablet DAILY (route: oral) Med Classific ation: Endocrine acetaminoph en 500 mg tablet 02-01 00:00: 00 Yes [id number] PAIN 2 tablet 3 TIMES DAILY 2 tablet 3 TIMES DAILY (route: oral) Med Classific ation: Analgesic , Anti-infl ammatory or Antipyret ic bumetanide 2 mg tablet -14 00:00: 00 Yes [id number] DIURETIC 1 tablet 3 TIMES DAILY 1 tablet 3 TIMES DAILY (route: oral) Med Classific ation: Cardiovas cular Therapy Agents cyanocobala min (vit B-12) 1,000 mcg sublingual tablet 14 00:00: 00 Yes [id number] SUPPLIMENT 1 tablet DAILY 1 tablet DAILY (route: sublingual ) Med Classific ation: Electroly te Balance-N utritiona l Products hydrocodone 5 mg-acetamin ophen 325 mg tablet -14 00:00: 00 Yes [id number] PAIN 1 tablet EVERY 8 HOURS 1 tablet EVERY 8 HOURS (route: oral) Med Classific ation: Analgesic , Anti-infl ammatory or Antipyret ic spironolact one 50 mg tablet -14 00:00: 00 Yes [id number] DIURETIC 1 tablet DAILY 1 tablet DAILY (route: oral) Med Classific ation: Cardiovas cular Therapy Agents hydralazine 50 mg tablet 4-24 00:00: 00 Yes [id number] BLOOD PRESSURE 50 mg DAILY 50 mg DAILY (route: oral) Med Classific ation: Cardiovas cular Therapy Agents nifedipine ER 90 mg tablet,exte nded release 10-21 00:00: 00 Yes [id number] BLOOD PRESSURE 90 mg DAILY 90 mg [...] CONSULTING PHYSICIANS RN TO OBSERVE AND ASSESS, STRAWHAT INSPECTOR AND PACKER/SCALE MECHANIC TO OBSERVE FOR RISK FOR FALLS AND INSTRUCT IN FALL PREVENTION, HOME SAFETY, MEDICATION MANAGEMENT, INFECTION PREVENTION, AND NUTRITION MANAGEMENT. RN/STRAWHAT INSPECTOR AND PACKER/SCALE MECHANIC NURSE MAY PERFORM O2 SATURATION LEVEL ON ADMISSION AND PRN FOR SOB FOR RN TO ASSESS/STRAWHAT INSPECTOR AND PACKER TO OBSERVE PATIENT, WITH NOTIFICATION TO THE PHYSICIAN IF SATURATION IS 90% IN THE ABSENCE OF MORE SPECIFIC PARAMETERS FROM THE PHYSICIAN. AGENCY MAY PERFORM A RESUMPTION OF CARE VISIT FOLLOWING ANY HOSPITAL ADMISSION. RN/STRAWHAT INSPECTOR AND PACKER/SCALE MECHANIC TO MONITOR CO-MORBID CONDITIONS LISTED ON THE PLAN OF CARE AND ANY NEW CONDITIONS THAT PRESENT THEMSELVES DURING THIS EPISODE TO IDENTIFY CHANGES AND INTERVENE TO MINIMIZE COMPLICATIONS. [code = RN TO OBSERVE, ASSESS, EVALUATE, AND DEVELOP AN INDIVIDUALIZED PLAN OF CARE. AGENCY MAY ACCEPT ORDERS FROM CONSULTING PHYSICIANS RN TO OBSERVE AND ASSESS, STRAWHAT INSPECTOR AND PACKER/SCALE MECHANIC TO OBSERVE FOR RISK FOR FALLS AND INSTRUCT IN FALL PREVENTION, HOME SAFETY, MEDICATION MANAGEMENT, INFECTION PREVENTION, AND NUTRITION MANAGEMENT. RN/STRAWHAT INSPECTOR AND PACKER/SCALE MECHANIC NURSE MAY PERFORM O2 SATURATION LEVEL ON ADMISSION AND PRN FOR SOB FOR RN TO ASSESS/STRAWHAT INSPECTOR AND PACKER TO OBSERVE PATIENT, WITH NOTIFICATION TO THE PHYSICIAN IF SATURATION IS 90% IN THE ABSENCE OF MORE SPECIFIC PARAMETERS FROM THE PHYSICIAN. AGENCY MAY PERFORM A RESUMPTION OF CARE VISIT FOLLOWING ANY HOSPITAL ADMISSION. RN/STRAWHAT INSPECTOR AND PACKER/SCALE MECHANIC TO MONITOR CO-MORBID CONDITIONS LISTED ON THE PLAN OF CARE AND ANY NEW CONDITIONS THAT PRESENT THEMSELVES DURING THIS EPISODE TO IDENTIFY CHANGES AND INTERVENE TO MINIMIZE COMPLICATIONS.] Future Scheduled Test HEART FAIL URE MONITORING RN/SCALE MECHANIC/STRAWHAT INSPECTOR AND PACKER TO MONITOR PATIENT FOR SIGNS AND SYMPTOMS OF HEART FAILURE EXACERBATION, MONITOR FOR ADHERENCE WITH MEDICATION AND HEART FAILURE MANAGEMENT REGIMEN. [code = HEART FAILURE MONITORING RN/SCALE MECHANIC/STRAWHAT INSPECTOR AND PACKER TO MONITOR PATIENT FOR SIGNS AND SYMPTOMS OF HEART FAILURE EXACERBATION, MONITOR FOR ADHERENCE WITH MEDICATION AND HEART FAILURE MANAGEMENT REGIMEN.] Future Scheduled Test DIABETES M ONITORING RN/SCALE MECHANIC/STRAWHAT INSPECTOR AND PACKER TO MONITOR BLOOD SUGAR LOG FOR BLOOD SUGAR READINGS THAT ARE BEING CHECKED BY (PATIENT, CAREGIVER) 1 TIMES A DAY. PATIENT THERAPEUTIC BLOOD SUGAR PARAMETERS ARE 80-150 BEFORE MEALS. REPORT BLOOD SUGARS OUT OF RANGE TO PHYSICIAN. NURSE MAY PERFORM FINGER STICK BLOOD GLUCOSE NEEDED FOR SIGNS AND SYMPTOMS OF HYPO AND HYPERGLYCEMIA. RN/SCALE MECHANIC/STRAWHAT INSPECTOR AND PACKER TO MONITOR ADHERENCE OF (PATIENT/CAREGIVER) PERFORMING DIABETIC FOOT CARE AND MAY PERFORM DIABETIC FOOT CARE PRN. RN/SCALE MECHANIC/STRAWHAT INSPECTOR AND PACKER TO MONITOR FOR ADHERENCE TO DIABETIC SELF-CARE AND MANAGEMENT INCLUDING MEDICATIONS. [code = DIABETES MONITORING RN/SCALE MECHANIC/STRAWHAT INSPECTOR AND PACKER TO MONITOR BLOOD SUGAR LOG FOR BLOOD SUGAR READINGS THAT ARE BEING CHECKED BY (PATIENT, CAREGIVER) 1 TIMES A DAY. PATIENT THERAPEUTIC BLOOD SUGAR PARAMETERS ARE 80-150 BEFORE MEALS. REPORT BLOOD SUGARS OUT OF RANGE TO PHYSICIAN. NURSE MAY PERFORM FINGER STICK BLOOD GLUCOSE NEEDED FOR SIGNS AND SYMPTOMS OF HYPO AND HYPERGLYCEMIA. RN/SCALE MECHANIC/STRAWHAT INSPECTOR AND PACKER TO MONITOR ADHERENCE OF (PATIENT/CAREGIVER) PERFORMING DIABETIC FOOT CARE AND MAY PERFORM DIABETIC FOOT CARE PRN. RN/SCALE MECHANIC/STRAWHAT INSPECTOR AND PACKER TO MONITOR FOR ADHERENCE TO DIABETIC SELF-CARE AND MANAGEMENT INCLUDING MEDICATIONS.] Future Scheduled Test MEDICATION MANAGEMENT; RN/STRAWHAT INSPECTOR AND PACKER/SCALE MECHANIC TO REVIEW MEDICATIONS FOR INTERACTIONS, EFFECTIVENESS OF DRUG THERAPY, AND SIGNS/SYMPTOMS OF ADVERSE REACTIONS. MAY INSTRUCT AND REINFORCE MEDICATION TEACHING RELATED TO THE USE OF MEDICATIONS, DOSAGE, FREQUENCY, PURPOSE, SIDE EFFECTS, AND TO REPORT COMPLICATIONS. [code = MEDICATION MANAGEMENT; RN/STRAWHAT INSPECTOR AND PACKER/SCALE MECHANIC TO REVIEW MEDICATIONS FOR INTERACTIONS, EFFECTIVENESS OF DRUG THERAPY, AND SIGNS/SYMPTOMS OF ADVERSE REACTIONS. MAY INSTRUCT AND REINFORCE MEDICATION TEACHING RELATED TO THE USE OF MEDICATIONS, DOSAGE, FREQUENCY, PURPOSE, SIDE EFFECTS, AND TO REPORT COMPLICATIONS.] Future Scheduled Test RISK FOR H OSPITALIZATION; RN TO ASSESS/TEACH, SCALE MECHANIC/STRAWHAT INSPECTOR AND PACKER TO OBSERVE/TEACH PATIENT/CAREGIVER ON RISK FOR HOSPITALIZATION/EMERGENCY ROOM VISITS, TEACH SIGNS AND SYMPTOMS THAT PUT PATIENT AT RISK, WHEN TO NOTIFY NURSE/PHYSICIAN OF COMPLICATIONS/DECLINE, AND WHEN TO CALL 911. [code = RISK FOR HOSPITALIZATION; RN TO ASSESS/TEACH, SCALE MECHANIC/STRAWHAT INSPECTOR AND PACKER TO OBSERVE/TEACH PATIENT/CAREGIVER ON RISK FOR HOSPITALIZATION/EMERGENCY ROOM VISITS, TEACH SIGNS AND SYMPTOMS THAT PUT PATIENT AT RISK, WHEN TO NOTIFY NURSE/PHYSICIAN OF COMPLICATIONS/DECLINE, AND WHEN TO CALL 911.] Future Scheduled Test CARDIOVASC ULAR SYSTEM; RN TO ASSESS/TEACH, STRAWHAT INSPECTOR AND PACKER/SCALE MECHANIC TO OBSERVE/TEACH RELATED TO ALTERED CARDIOVASCULAR STATUS TO MINIMIZE COMPLICATIONS AND REDUCE HOSPITALIZATION. [code = CARDIOVASCULAR SYSTEM; RN TO ASSESS/TEACH, STRAWHAT INSPECTOR AND PACKER/SCALE MECHANIC TO OBSERVE/TEACH RELATED TO ALTERED CARDIOVASCULAR STATUS TO MINIMIZE COMPLICATIONS AND REDUCE HOSPITALIZATION.] Future Scheduled Test HEART FAIL URE; RN TO ASSESS/TEACH, STRAWHAT INSPECTOR AND PACKER/SCALE MECHANIC TO OBSERVE/TEACH CARDIOPULMONARY SYSTEM TO IDENTIFY SIGNS [...] [code = HEART FAILURE; RN TO ASSESS/TEACH, STRAWHAT INSPECTOR AND PACKER/SCALE MECHANIC TO OBSERVE/TEACH CARDIOPULMONARY SYSTEM TO IDENTIFY SIGNS [...] ON MANAGEMENT; RN TO ASSESS AND TEACH, STRAWHAT INSPECTOR AND PACKER/SCALE MECHANIC TO OBSERVE AND TEACH WARNING SIGNS AND SYMPTOMS TO AVOID HOSPITALIZATION. [code = HYPERTENSION MANAGEMENT; RN TO ASSESS AND TEACH, STRAWHAT INSPECTOR AND PACKER/SCALE MECHANIC TO OBSERVE AND TEACH WARNING SIGNS AND SYMPTOMS TO AVOID HOSPITALIZATION.] Future Scheduled Test SKIN INTEG RITY RN TO ASSESS AND TEACH, STRAWHAT INSPECTOR AND PACKER/SCALE MECHANIC TO OBSERVE AND TEACH INTEGUMENTARY STATUS TO IDENTIFY CHANGES AND INTERVENE TO MINIMIZE COMPLICATIONS. PROVIDE SKILLED TEACHING OF GENERAL WOUND AND SKIN CARE AND PREVENTION RELATED TO ACTUAL ALTERED SKIN INTEGRITY [code = SKIN INTEGRITY RN TO ASSESS AND TEACH, STRAWHAT INSPECTOR AND PACKER/SCALE MECHANIC TO OBSERVE AND TEACH INTEGUMENTARY STATUS TO IDENTIFY CHANGES AND INTERVENE TO MINIMIZE COMPLICATIONS. PROVIDE SKILLED TEACHING OF GENERAL WOUND AND SKIN CARE AND PREVENTION RELATED TO ACTUAL ALTERED SKIN INTEGRITY] Future Scheduled Test RN/STRAWHAT INSPECTOR AND PACKER/SCALE MECHANIC TO PERFORM/TEACH PATIENT/CAREGIVER WOUND CARE PRESSURE INJURY TO RIGHT HEAL: IRRIGATE/CLEANSE WITH WOUND CLEANSER, APPLY BETADINE SOAKED GAUZETOWOUNDBED, MAY APPLY SKIN BARRIER TO PERIWOUND PRN TO PREVENT MACERATION AND PROTECT PERIWOUND COVER WITH KERLEX AND THEN COBAN, CHANGE DRESSING 3 X WEEKLY AND PRN IF DISLODGED OR SOILED [code = RN/STRAWHAT INSPECTOR AND PACKER/SCALE MECHANIC TO PERFORM/TEACH PATIENT/CAREGIVER WOUND CARE PRESSURE INJURY TO RIGHT HEAL: IRRIGATE/CLEANSE WITH WOUND CLEANSER, APPLY BETADINE SOAKED GAUZETOWOUNDBED, MAY APPLY SKIN BARRIER TO PERIWOUND PRN TO PREVENT MACERATION AND PROTECT PERIWOUND COVER WITH KERLEX AND THEN COBAN, CHANGE DRESSING 3 X WEEKLY AND PRN IF DISLODGED OR SOILED ] Future Scheduled Test PAIN MANAG EMENT; RN TO ASSESS AND TEACH, SCALE MECHANIC/STRAWHAT INSPECTOR AND PACKER TO OBSERVE AND TEACH AND PROVIDE EDUCATION ON PAIN MANAGEMENT TECHNIQUES. [code = PAIN MANAGEMENT; RN TO ASSESS AND TEACH, SCALE MECHANIC/STRAWHAT INSPECTOR AND PACKER TO OBSERVE AND TEACH AND PROVIDE EDUCATION ON PAIN MANAGEMENT TECHNIQUES.] Future Scheduled Test DIABETES M ANAGEMENT; RN TO ASSESS AND TEACH, SCALE MECHANIC/STRAWHAT INSPECTOR AND PACKER TO OBSERVE AND TEACH INSTRUCTIONS OF DIABETIC CARE TO INCLUDE: DIET DIABETIC SKIN CARE, SIGNS AND SYMPTOMS OF HYPO/HYPERGLYCEMIA, PROPER ADMINISTRATION OF DIABETIC MEDICATION. RN/SCALE MECHANIC/STRAWHAT INSPECTOR AND PACKER TO INSTRUCT ON DIABETIC FOOT CARE AND MONITOR FOR SKIN LESIONS ON LOWER EXTREMITIES. BLOOD GLUCOSE TESTING DAILY FREQ. RN TO ASSESS AND TEACH, SCALE MECHANIC/STRAWHAT INSPECTOR AND PACKER TO OBSERVE AND TEACH PATIENT/CAREGIVER ABILITY TO PERFORM AND RECORD BLOOD GLUCOSE TESTING ORDERED AND TO REPORT ABNORMAL FINDINGS TO PHYSICIAN. RN/SCALE MECHANIC/STRAWHAT INSPECTOR AND PACKER MAY PERFORM BLOOD GLUCOSE TEST NEEDED. RN/SCALE MECHANIC/STRAWHAT INSPECTOR AND PACKER TO REPORT TO PHYSICIAN BLOOD GLUCOSE READINGS GREATER THAN 350 OR LESS THAN 60 RN/SCALE MECHANIC/STRAWHAT INSPECTOR AND PACKER TO INSTRUCT PATIENT ON IMPORTANCE OF HGBA1C MONITORING, KIDNEY FUNCTION TEST, EYE AND FOOT EXAMS. [code = DIABETES MANAGEMENT; RN TO ASSESS AND TEACH, SCALE MECHANIC/STRAWHAT INSPECTOR AND PACKER TO OBSERVE AND TEACH INSTRUCTIONS OF DIABETIC CARE TO INCLUDE: DIET DIABETIC SKIN CARE, SIGNS AND SYMPTOMS OF HYPO/HYPERGLYCEMIA, PROPER ADMINISTRATION OF DIABETIC MEDICATION. RN/SCALE MECHANIC/STRAWHAT INSPECTOR AND PACKER TO INSTRUCT ON DIABETIC FOOT CARE AND MONITOR FOR SKIN LESIONS ON LOWER EXTREMITIES. BLOOD GLUCOSE TESTING DAILY FREQ. RN TO ASSESS AND TEACH, SCALE MECHANIC/STRAWHAT INSPECTOR AND PACKER TO OBSERVE AND TEACH PATIENT/CAREGIVER ABILITY TO PERFORM AND RECORD BLOOD GLUCOSE TESTING ORDERED AND TO REPORT ABNORMAL FINDINGS TO PHYSICIAN. RN/SCALE MECHANIC/STRAWHAT INSPECTOR AND PACKER MAY PERFORM BLOOD GLUCOSE TEST NEEDED. RN/SCALE MECHANIC/STRAWHAT INSPECTOR AND PACKER TO REPORT TO PHYSICIAN BLOOD GLUCOSE READINGS GREATER THAN 350 OR LESS THAN 60 RN/SCALE MECHANIC/STRAWHAT INSPECTOR AND PACKER TO INSTRUCT PATIENT ON IMPORTANCE OF HGBA1C MONITORING, KIDNEY FUNCTION TEST, EYE AND FOOT EXAMS.] Future Scheduled Test FALL REDUC TION MANAGEMENT; RN TO ASSESS AND OBSERVE, STRAWHAT INSPECTOR AND PACKER/SCALE MECHANIC TO OBSERVE FALL RISK FACTORS AND EDUCATE PATIENT/CAREGIVER ON STRATEGIES TO MINIMIZE THE RISK OF FALLING. [code = FALL REDUCTION MANAGEMENT; RN TO ASSESS AND OBSERVE, STRAWHAT INSPECTOR AND PACKER/SCALE MECHANIC TO OBSERVE FALL RISK FACTORS AND EDUCATE [...] Date/Time Encounter Type Admission Type Attending [facility] Facility Care Department Encounter ID Discharge Date Discharge Status Discharge Condition Discharge Reason Percent Goals Met 2024-11-10 00:00:00 2024-11-24 00:00:00 Outpatient [facility] [id number] 2024-11-24 00:00:00 DISCHARGED /TRANSFERR ED TO A HALF-WAY FACILITY (SNF) WITH MEDICARE CERTIFICAT ION IN [place] ON OF SKILLED CARE MODERATE ASSIST WITH TRANSFER/A MBULATION/ [facility] ONLY - TRANSFER TO HOSPITAL 17.65
[2024-12-09 15:53] VITALS: BP 135/53; PULSE 63; RESP 22; TEMP 36.6; O2SAT 96; BMI 34.3
--- NOTE | 2024-12-09 15:54 | XR_ITS ---
PROCEDURE INFORMATION: Exam: XR Right Foot Exam date and time: 12/09/2024 4:19 PM Age: 73 years old Clinical indication: Swelling, leg or foot; Additional info: Heel wounds, foul smelling TECHNIQUE: Imaging protocol: Radiologic exam of the right foot. Views: 3 or more views. COMPARISON: CR XR FOOT RT MIN 3V 10/25/2024 9:59 AM FINDINGS: Bones/joints: No bony abnormalities are demonstrated. Soft tissues: Mild diffuse soft tissue swelling. No air is seen in the soft tissues. IMPRESSION: Soft tissue swelling likely cellulitis. No osteomyelitis noted. Consider CT for further evaluation as clinically indicated.
--- NOTE | 2024-12-09 15:54 | XR_ITS ---
PROCEDURE INFORMATION: Exam: XR Chest Exam date and time: 12/09/2024 4:19 PM Age: 73 years old Clinical indication: Shortness of breath; Additional info: SOA, volume overload TECHNIQUE: Imaging protocol: Radiologic exam of the chest. Views: 1 view. COMPARISON: CT CHEST WO CON 01/05/2024 8:22 PM FINDINGS: Lungs: Pulmonary vascular prominence. No focal infiltrates. Chronic interstitial changes. Pleural spaces: Unremarkable. Left CP angle blunting possible small pleural effusion. No pneumothorax. Heart/Mediastinum: Unremarkable. Moderate stable cardiomegaly. Bones/joints: Unremarkable. IMPRESSION: Stable cardiomegaly. Left CP angle blunting may represent a small effusion. Mild pulmonary vascular prominence may represent volume overload.
--- NOTE | 2024-12-09 15:54 | XR_ITS ---
PROCEDURE INFORMATION: Exam: XR Left Foot Exam date and time: 12/09/2024 4:19 PM Age: 73 years old Clinical indication: Swelling, leg or foot; Additional info: Heel wounds, foul smelling TECHNIQUE: Imaging protocol: Radiologic exam of the left foot. Views: 3 or more views. COMPARISON: US CA ARTERIAL DUPLEX LE BI 10/25/2024 10:18 AM FINDINGS: Bones/joints: No bony erosions or obvious osteomyelitis identified. Soft tissues: You welcome mild diffuse soft tissue swelling is again noted. No air is seen in the soft tissues. IMPRESSION: You welcome mild diffuse soft tissue swelling is again noted. No air is seen in the soft tissues. No bony erosions or obvious osteomyelitis identified. Consider CT for further evaluation as clinically indicated.
--- OUTSIDE RECORDS SUMMARY | 2024-12-09 15:57 | XMS_ITS | Clinical Summary ---
Author Organization [facility] Address [address] [id number] Care Team Providers Care Chip Silo Tender Name Role Phone SilverAubree livingston Oksana ROSE Primary Care Provider [phone] Allergies Active Allergy Reactions Criticality Noted Date Comments Amoxicillin Unknown - Patient states they do not know rxn details Low 02/22/2021 Amoxicillin-Pot Clavulanate Other - please document in the comment field Low 11/17/2015 Pt. Cannot remember Ciprofloxacin Unknown - Patient states they do not know rxn details Low 02/22/2021 Levofloxacin Unknown - Patient states they do not know rxn details Low 02/22/2021 Moxifloxacin Anaphylaxis High 07/09/2012 Sulfa Drugs Unknown - Patient states they do not know rxn details Low 02/22/2021 Medications levothyroxine (Synthroid, Levoxyl) 88 MCG tablet 1 (one) time each day. 2 Active lisinopril-hydr oCHLOROthiazide 20-25 MG tablet TAKE 1 TABLET DAILY. 2 Active clonazePAM (KlonoPIN) 1 MG tablet prn 2 Active gabapentin (Neurontin) 400 MG capsule Take 400 mg by mouth 3 (three) times a day. Active spironolactone (Aldactone) 50 MG tablet Take 50 mg by mouth 1 (one) time each day. Active metFORMIN XR (Glucophage-XR) 500 MG 24 hr tablet Take 1 tablet (500 mg total) by mouth 1 (one) time each day with dinner. Do not crush, chew, or split. 30 tablet 11 1 Active furosemide (Lasix) 20 MG tablet 2 Active pen needle, diabetic (B-D UF III MINI PEN NEEDLES) 31G X 5 MM miscIndications :Type 2 diabetes mellitus with other specified complication, with long-term current use of insulin (CMS/HCC) USE DIRECTED UP TO 4 TIMES A DAY 100 each 9 3 Active insulin lispro (HumaLOG KWIKPEN) 100 UNIT/ML injection penIndications: Type 2 diabetes mellitus with other specified complication, with long-term current use of insulin (CMS/HCC) INJECT 30 UNITS TWICE A DAY WITH FOOD PLUS CORRECTIONS SCALE DIRECTED MAX DOSE 100 UNITS/DAY 30 mL 3 Active insulin glargine (Lantus SoloStar) 100 UNIT/ML injection pen Inject 40 units twice daily 75 mL 2 3 Active febuxostat (Uloric) 40 MG tablet 3 Active traMADol (Ultram) 50 MG tablet 3 Active Active Problems Problem Noted Date Diagnosed Date Stage 3a chronic kidney disease 07/05/2021 Persistent proteinuria 07/05/2021 CLL (chronic lymphocytic leukemia) 03/06/2021 Osteoarthritis 02/21/2015 Acid reflux 02/21/2015 Diabetes mellitus type 2, uncomplicated 07/09/19 13 Gout 07/09/2012 Disorder of thyroid 07/09/2012 Essential (primary) hypertension 07/09/2012 Family History Medical History Relation Name Comments Cancer Brother 1 Obesity Brother 2 Cancer Father Diabetes Father Heart disease Father Hypercholesterolemia Father Hypertension Father Obesity Father Parkinson Disease Maternal Grandmother Arthritis Mother Cancer Mother Heart disease Mother Hypertension Mother Obesity Mother Parkinson Disease Mother Thyroid disease Mother Arthritis Other 1 Heart disease Other 2 Hypertension Other 3 Obesity Other 4 Stroke Other 5 Thyroid disease Other 6 Diabetes Paternal Grandmother Relation Name Status Comments Brother 1 Brother 2 Father Maternal Grandmother Mother Other 1 Other 2 Other 3 Other 4 Other 5 Other 6 Paternal Grandmother Social History Tobacco Use Types Packs/Day Years Used Date Smoking Tobacco: Never Passive Smoke Exposure: Never Smokeless Tobacco: Never Alcohol Use Standard Drinks/Week Comments Never 0 (1 standard drink = 0.6 oz pure alcohol) Alcoholic Drinks/day: Never Drank Alcohol Comments Unknown Sex and Gender Information Value Date Recorded Sex Assigned at Not on file Legal Sex Female 7:41 PM EDT Gender Identity Not on file Sexual Orientation Not on file Last Filed Vital Signs Vital Sign Reading Time Taken Comments Blood Pressure 91/40 10/03/2022 1:11 PM EDT Pulse 64 10/03/2022 1:11 PM EDT Temperature - - Respiratory Rate - - Oxygen Saturation - - Inhaled Oxygen Concentration - - Weight 82 kg (180 lb 12.8 oz) 10/03/2022 1:11 PM EDT Height 172.7 cm (5' 8 ) 09/18/2022 9:24 AM EDT Body Mass Index 27.49 09/18/2022 9:24 AM EDT Plan of Treatment Upcoming Encounters Date Type Department Care Team (Late st Contact Info) Description 01/14/2025 10:20 AM EDT Office Visit [facility] [address] [place] [id number] Elias Lewis MD [address] [place] [address] Health Maintenance Due Date Last Done Comments [facility]-Bone Density Scan 1948 [facility]-Depression Screening 1948 [facility]-Hepatitis C Screening 1948 [facility]-Medicare Annual Wellness (AWV) 1948 [facility]-Infant/Child/Adol SDOH Screenings 1950 [id number] Vaccine (#1) 1953 Diabetes: Dental Exam 1958 [facility]- SDOH Screenings 1966 [facility]-Adult SDOH Screenings 1966 [facility]-DTaP,Tdap,and Td Vaccines (1 - Tdap) 12/28/1967 [facility]-Pneumococcal Vaccine: 50+ Years (1 of 2 - PCV) 12/28/1967 [facility]-Zoster Vaccines (1 of 2) 12/28/1967 CT Colonography 1993 Colonoscopy 1993 FIT-DNA 1993 FIT 1993 FOBT 1993 Sigmoidoscopy 1993 [facility]-Colorectal Cancer Screening 1993 [facility]-Diabetes: Hemoglobin A1C 01/05/202302/2023, 05/02/2022, 11/08/2021, Additional history exists [facility]-RSV Vaccine: 60+ Years or (1 - 1-dose 75+ series) 12/28/2023 [facility]-Influenza Vaccine (Season Ended) 2025 [facility]-Obesity Intervention Completed 023, 09/18/2022, 05/02/2022, Additional history exists HPV Vaccines Aged Out No longer eligi ble based on patient's age to complete this topic [facility]-HIB Vaccines Aged Out No longer e ligible based on patient's age to complete this topic [facility]-Hepatitis A Vaccines Aged Out No longer eligible based on patient's age to complete this topic [facility]-IPV Vaccines Aged Out No longer e ligible based on patient's age to complete this topic [facility]-Rotavirus Vaccines Aged Out No lo nger eligible based on patient's age to complete this topic Procedures Procedure Name Priority Date/Time Associated Diagnosis Comments POCT GLYCOSYLATED HEMOGLOBIN (HGB A1C) Routine 07/08/2022 from Last 3 Months or Most Recently Relevant to Health Maintenance Results * POCT glycosylated hemoglobin (Hb A1C) docked device (07/08/2022) Blood Venous blood specimen / Unknown Amanda Lutz MD POINT OF CARE TEST ENTER/E DIT ORDERABLES Final Result from Last 3 Months or Most Recently Relevant to Health Maintenance Insurance MEDICARE Care Teams Chip Silo Tender Relationship Specialty Start Date End Date Aubree Silver APRN [address] [place] [address] PCP - General 03/01/21
[2024-12-09 16:00] VITALS: BP 132/58; PULSE 63; RESP 14; O2SAT 96
[2024-12-09 16:01] LABS: Basophils # 0.1 K/mm3 (0-0.2); Basophils % 0.5 % (0.1-2.0); Eosinophils # 0.6 Kmm3 (0.0-0.4); Hematocrit 25.2 % (37.0-47.0); Immature Granulocytes % 0.6 %; Lymphocytes # 6.6 K/mm3 (0.7-4.5); Mean Corpuscular HGB Conc 31.7 g/dL (31.8-35.4); Mean Corpuscular Hemoglobin 27.8 pg (27.0-31.2); Mean Corpuscular Volume 87.5 fl (81-99); Mean Platelet Volume 9.6 fl (7.4-10.4); Monocytes # 0.8 K/mm3 (0.1-1.0); Monocytes % 4.9 % (1.7-9.3); Neutrophils # 7.3 K/mm3 (1.8-7.8); Nucleated Red Blood Cells # 0 10^3/uL; Nucleated Red Blood Cells % 0 %; Platelet Count 324 K/mm3 (142-424); Red Blood Count 2.88 M/mm3 (4.20-5.40); Red Cell Distribution Width 15.4 % (11.5-17.5); Red Cell Distribution Width-SD 49.4 fL; White Blood Count 15.4 K/mm3 (4.8-10.8)
[2024-12-09 16:04] LABS: VBG Base Excess -6.4 mmol/L (-2.4-2.3); VBG HCO3 19.2 mmol/L (23-30); VBG Oxygen Saturation 96.3 % (50-70); VBG PH 7.36 mmol/L (7.31-7.41); VBG Total CO2 20.2 mmol/L (23-27)
[2024-12-09 16:05] LABS: MANUAL DIFFERENTIAL MANUAL DIFFERENTIAL (MANUAL DIFF)
--- NOTE | 2024-12-09 16:05 | ED_ITS ---
Discharge Plan Disposition Patient Disposition: Admitted Condition: Fair Clinical Impressions Clinical Impression: Anasarca, CHF (congestive heart failure), CKD (chronic kidney disease), Hyperphosphatemia, Elevated BUN, Pressure ulcer, heel, right, unstageable, Chronic ulcer of left heel Discharge ED Provider: Melinda Adamson HPI General Chief Complaint: Shortness of Breath/Dyspnea Stated Complaint: Fluid Retention Time Seen by Provider: 12/09/24 15:52 Mode of Arrival: EMS Source of Information: Patient and EMS Description of Symptoms (Recalled from ER Triage Doc. by RN): pt noted to have generalized edema with SOA. krzysztof foot wounds with odor. gained 20 lbs in a couple weeks. History of Present Illness HPI narrative: This patient is a 73-year-old female with a history of CKD 4, CHF, chronic anasarca and fluid retention on Bumex, type 2 diabetes, hypertension, hyperlipidemia, and general debility presenting from [facility] for evaluation with concern for swelling and shortness of breath. Patient has gained 20 pounds since discharge from the hospital 11/28/2024 despite taking her Bumex. She also notes that she swollen up to her chest/abdomen and is feeling short of breath. She notes she cannot sleep lying flat because of the swelling. She also notes bilateral heel wounds, right is worse than left. No fevers, chest pain, abdominal pain, or other concerns noted. She has no making urine, though she states that she is not urinating very much despite taking the Bumex. Related Data Previous Rx's ?Medication ?Instructions ?Recorded hydralazine 50 mg tablet 50 mg PO TID #90 tabs Held on 11/28/24. Instructions: re-evaluate as outpt, consider resuming if BP >140 aspirin 81 mg tablet,delayed 81 mg PO DAILY #30 tabs 0 11/28/24 release (Adult Aspirin Regimen) bumetanide 1 mg tablet 4 mg (4 x 1 mg) PO BIDL 30 d ays 11/28/24 #240 tabs gabapentin 400 mg capsule 400 mg PO TID #90 caps 11/28 hydrocodone 5 mg-acetaminophen 325 1 tab PO Q8HP PRN m oderate pain 11/28/24 mg tablet (scale score 5-6) 10 days #3 0 tabs insulin glargine 100 unit/mL (3 22 unit (0.22 mL) SQ B ID Diabetes 11/28/24 mL) subcutaneous pen #10 mL insulin lispro 100 unit/mL 0 - 14 unit (0 - 0.14 mL) S Q 11/28/24 subcutaneous pen (Humalog KwikPen TIDWMEAL #15 mL (U-100) Insulin) levothyroxine 88 mcg tablet 88 mcg PO DAILY #30 tabs 0 11/28/24 nifedipine 90 mg tablet,extended 90 mg PO DAILY #30 ta bs 11/28/24 release Allergies Allergy/AdvReac Type Severity Reaction Status Date / Time moxifloxacin Allergy Severe S-ANAPHYLAX Verified 11/17/24 22:20 IS Sulfa (Sulfonamide Allergy Mild NA-NAUSEA/V Verified 11/17/24 22:20 Antibiotics) OMITING atorvastatin AdvReac Severe Other Verified 11/17/24 22:20 [facility] Disclaimer: The information contained in this section may have been updated after the patient was seen, as this information can be updated by other users. Medical History Callus of foot Edema Hypervolemia Leukocytosis UTI (urinary tract infection) Urinary tract infectious disease Sepsis without septic shock Noncompliance Acute kidney injury superimposed on chronic kidney disease Diabetic foot ulcer Sinusitis Hyperkalemia Urinary tract infection Hyperkalemia High anion gap metabolic acidosis Renal failure Falls frequently Viral URI with cough Skin infection, bacterial Avulsed toenail Ulcer of right great toe due to diabetes mellitus Frequent falls Statin intolerance Hyperlipidemia Bradycardia Syncope and collapse Syncope Falls Neuropathy Osteopenia Onychodystrophy Pain of toe of right foot Fracture of second toe, right, closed Edema of toe Acquired hammer toe Closed rib fracture Fall Hyperglycemia due to type 2 diabetes mellitus Bacteremia due to Klebsiella pneumoniae UTI due to Klebsiella species Gram-negative bacteremia DKA (diabetic ketoacidoses) Hyperglycemia due to type 2 diabetes mellitus CLL (chronic lymphocytic leukemia) History of hypertension Diabetes mellitus Surgical History H/O lithotripsy History of cholecystectomy Family History Other Cancer Congestive heart failure (CHF) Heart disease Lymphoma Social History Smoking Status: Never smoker alcohol intake: never substance use type: denies use current occupational status: retired Travel in the last 8 weeks?: None household members: none housing: house caffeine: Yes Have you lived/traveled outside [place] in past 30 days?: No Contact w/someone who lives/traveled outside US past 30 days?: No Exposure to someone with infectious disease in past 14 days?: No Do you have a fever (greater than 100.4 F or 38 C)?: No Have you tested positive for COVID-19?: No Exposed to someone with COVID-19 in past 14 days?: No Do you have a sore throat?: No Do you have a cough?: No Do you have any weakness?: No Do you have any diarrhea?: No Are you experiencing any unusual bleeding?: No Do you have any muscle aches/pain?: No Do you have any abdominal pain?: No Are you experiencing loss of taste or smell?: No Other Medical History Have you received the Flu Vaccine for this season: No Have you received the Pneumonia Vaccine: No ROS Obtained: Yes All systems reviewed & no additional complaints except as documented Physical Exam General General appearance: alert, in no apparent distress and obese Head Head exam: atraumatic and normocephalic Eye Eye exam: Present normal appearance, PERRL and EOMI ENT ENT exam: Present normal exam, normal oropharynx, mucous membranes moist and normal external ear exam Neck Neck exam: Present normal inspection, full ROM and trachea midline; Absent tenderness Chest Chest inspection: Present normal inspection and symmetric chest wall rise; Absent tenderness Respiratory Respiratory exam: Present normal lung sounds bilaterally; Absent respiratory distress, wheezes, stridor or accessory muscle use Cardiovascular Cardiovascular exam: Present regular rate and normal rhythm Abdominal Exam Abdominal exam: Present soft; Absent distention, tenderness or guarding Extremities Exam Extremities exam: Present normal capillary refill, edema and other (Significant anasarca. Bilateral heel wounds, right is worse than the left. Right heel wound has necrosis and very foul smell.); Absent tenderness Back Exam Back exam: Present normal inspection and full ROM; Absent tenderness Neurological Exam Neurological exam: Present alert, oriented X3, CN II-XII intact and other (Generally weak without any focal deficit); Absent motor sensory deficit Psychiatric Psychiatric exam: Present normal affect and normal mood Skin Skin exam: Present warm and dry HEART Score HEART Score HEART Score assessment performed?: Yes History (anamnesis): Slightly suspicious ECG: Normal Age: >65 years Risk factors: Atherosclerosis history Troponin: </= normal limit HEART Score: 4 Critical Care Critical Care Time Critical Care Time: Yes Attestation: On 12/09/24, the high probability of a clinically significant, sudden or life threatening deterioration of the following system(s) required my full and direct attention, intervention and personal management. The time I documented below is in addition to time spent performing reported procedures but includes the following listed in this critical care notation. Total Time Total Critical Care Time: 45 Medical Decision Making Xu Inquiry Pt receiving controlled substance: No Vital Signs Vital Signs: 12/09/24 15:53 12/09/24 16:00 12/09/24 16:31 Temperature 97.8 F Temperature Source Oral Pulse Rate 63 61 Pulse Rate [Right] 63 Respiratory Rate 22 14 13 Blood Pressure 132/58 L 142/58 H Blood Pressure [Right Arm] 135/53 L Blood Pressure Mean [Right Arm] 80 02 Sat by Pulse Oximetry 96 96 95 Oxygen Delivery Method 12/09/24 17:30 12/09/24 18:45 12/09/24 20:18 Temperature 98.7 F Temperature Source Oral Pulse Rate 61 65 60 Pulse Rate [Right] Respiratory Rate 14 18 15 Blood Pressure 172/85 H 166/83 H 140/60 Blood Pressure [Right Arm] Blood Pressure Mean [Right Arm] 02 Sat by Pulse Oximetry 95 93 L Oxygen Delivery Method Room Air Lab Data Labs: Lab Results 12/09/24 15:40: WBC 15.4 H, RBC 2.88 L, Hgb 8.0 L, Hct 25.2 L, MCV 87.5, MCH 27.8, MCHC 31.7 L, RDW 15.4, Plt Count 324, MPV 9.6, Neut % (Auto) 47.0, Lymph % (Auto) 43.0, [place] % (Auto) 4.9, Eos % (Auto) 4.0, Baso % (Auto) 0.5, Neut # (Auto) 7.3, Lymph # (Auto) 6.6 H, [place] # (Auto) 0.8, Eos # (Auto) 0.6 H, Baso # (Auto) 0.1, Total Counted 100, Neutrophils % (Manual) 48, Lymphocytes % (Manual) 43, Monocytes % (Manual) 4, Eosinophils % (Manual) 4 H, Basophils % (Manual) 1.0, Platelet Estimate Normal, Poikilocytosis 1+, Anisocytosis 1+, Microcytosis 1+, Target Cells 1+, Tear Drop Cells 1+, Ovalocytes 1+, João Cells 1+, ESR > 140 H, Sodium 138, Potassium 3.8, Chloride 107, Carbon Dioxide 21 L, Anion Gap 13.8, BUN 100 H, Creatinine 3.50 H, Estimated Creat Clear 22, Estimated GFR 13 L*, Est GFR ( Amer) 15 L*, Glucose 188 H, Calcium 9.6, Phosphorus 8.5 H, Magnesium 2.1, Total Bilirubin 0.2, AST 22, ALT 14, Alkaline Phosphatase 78, Troponin I < 0.01, C-Reactive Protein 57.7 H, NT-Pro-B Natriuret Pep 4590 H, Total Protein 6.5, Albumin 3.5, Globulin 3.0, Albumin/Globulin Ratio 1.2, TSH 3.89, Thyroxine (T4) 6.2 12/09/24 15:53: VBG pH 7.36, VBG pCO2 35.0, VBG pO2 87.0 H, VBG HCO3 19.2 L, VBG Total CO2 20.2 L, VBG O2 Saturation 96.3 H, VBG Base Excess -6.4 L, VBG Lactic Acid 2.0 12/09/24 17:30: Urine Color Yellow, Urine Appearance Clear, Urine pH 5.5, Ur Specific [place] 1.025, Urine Protein 2+ A, Urine Glucose (UA) Negative, Urine Ketones Negative, Urine Blood Trace-i, Urine Nitrate Negative, Urine Bilirubin Negative, Urine Urobilinogen 0.2, Ur Leukocyte Esterase Negative, Urine RBC Occasional, Urine WBC 5-10, Ur Squamous Epith Cells 3-5, Urine Bacteria 1+ 12/09/24 18:49: Troponin I 0.01 12/09/24 15:40 12/09/24 15:40 Response Orders (Tests/Meds): ED MEDICATIONS Generic Name Dose Route Start Last Admin Trade Name Freq PRN Reason Stop Dose Admin Albumin Human 50 gm in 200 mls @ 100 mls/hr 12/09/24 18:00 12/09/24 17:52 Albumin 25% (12.5gm) Soln 50ml Bag IV 01/08/25 17:59 60 mls/hr ONCE WILFREDO Administration Cefepime HCl 2 gm/ Sodium 100 mls @ 200 mls/hr 12/10/24 17:30 Chloride IV 12/20/24 17:29 Q24H WILFREDO Miscellaneous 1 each 12/09/24 16:45 12/09/24 18:46 Vancomycin Consult Request NOTAPPLIC 01/08/25 16:44 Not Given [facility] Discontinued Medications Generic Name Dose Route Start Last Admin Trade Name Freq PRN Reason Stop Dose Admin Furosemide 120 mg 12/09/24 16:28 12/09/24 17:28 Furosemide 100mg/10ml Vial IV 12/09/24 16:29 120 mg ONCE ONE Administration Albumin Human 12.5 gm in 50 mls @ 100 mls/hr 12/09/24 16:29 12/09/24 17:53 Albumin 25% (12.5gm) Soln 50ml Bag IV 12/09/24 17:28 Not Given Q30M [facility] Cefepime HCl 2 gm/ Sodium 100 mls @ 200 mls/hr 12/09/24 16:32 12/09/24 17:39 Chloride IV 12/09/24 17:01 200 mls/hr ONCE ONE Administration Vancomycin HCl 2,000 mg/ 250 mls @ 125 mls/hr 12/09/24 16:45 12/09/24 18:32 Sodium Chloride IV 12/09/24 18:44 125 mls/hr ONCE ONE Administration Cefepime HCl 2 gm/ Sodium 100 mls @ 200 mls/hr 12/10/24 18:30 Chloride IV 12/20/24 18:29 Q24H [facility] ORDERS Category Date Time Status CT foot LT wo con Stat Cat Scan 12/09/24 18:[address] foot RT wo con Stat Cat Scan 12/09/24 18:47 Completed Podiatry Consult [Consult to Podiatry] [CONS] Routine Cons 12/09/24 18:59 Active CXR --portable [XR chest portable] Stat Exams 12/09/24 15:54 Completed XR foot LT min 3V Stat Exams 12/09/24 15:54 Completed XR foot RT min 3V Stat Exams 12/09/24 15:54 Completed BNP [NT Pro Brain Natriuretic Pep.] Stat Lab 12/09/24 15:40 Completed CRP [C-Reactive Protein] AMLAB Lab 12/10/24 06:00 Ordered CRP [C-Reactive Protein] Stat Lab 12/09/24 15:40 Completed Complete Blood Count Auto Diff AMLAB Lab 12/10/24 06:00 Ordered Complete Blood Count Auto Diff Stat Lab 12/09/24 15:40 Completed Comprehensive Metabolic Panel AMLAB Lab 12/10/24 06:00 Ordered Comprehensive Metabolic Panel Stat Lab 12/09/24 15:40 Completed ESR [Erythrocyte Sedimentation Rate] Stat Lab 12/09/24 15:40 Completed Erythrocyte Sedimentation Rate AMLAB Lab 12/10/24 06:00 Ordered MAG [Magnesium] Stat Lab 12/09/24 15:40 Completed Magnesium AMLAB Lab 12/10/24 06:00 Ordered PHOS [Phosphorous] Stat Lab 12/09/24 15:40 Completed Phosphorous AMLAB Lab 12/10/24 06:00 Ordered T4 (Thyroxine) Stat Lab 12/09/24 15:40 Completed TSH [Thyroid Stimulating Hormone] Stat Lab 12/09/24 15:40 Completed Trop I [Troponin I] Stat Lab 12/09/24 15:40 Completed Troponin I Q3H Lab 12/09/24 18:49 Completed Troponin I Q3H Lab 12/09/24 22:06 Received UA [Urinalysis and Microscopic] Stat Lab 12/09/24 17:30 Completed Blood Culture Stat Micro 12/09/24 16:46 Received Wound Culture and Gram Stain Stat Micro 12/09/24 15:54 Results VBG [Venous Blood Gas] Stat RT 12/09/24 15:53 Completed ECG Data Tracing #1: Attestation: I reviewed this ECG and interpreted as documented below: ECG Narrative: Normal sinus rhythm with a ventricular rate of 60 bpm. Intraventricular conduction delay. No acute STEMI. Mildly prolonged QT with a QTc of 463 ms ECG initial impression date: 12/09/24 ECG initial impression time: 17:08 MDM Narrative Medical Decision Narrative: In summary, this patient is a 73-year-old female presenting to the Emergency Department for evaluation of swelling, 20 pound weight gain, shortness of breath. She also has bilateral heel wounds. Differential diagnoses considered include but are not limited to fluid retention, CHF exacerbation, worsening renal failure, pulmonary edema, respiratory failure, osteomyelitis of foot wounds, cellulitis. Ruling out the most morbid conditions drove assessment. It should be noted patient's history includes diabetes, CHF, CKD, hypertension, hyperlipidemia which are not at goal therapy. This complicates all aspects of care by increasing patient's risk for morbidity. I reviewed patient's past medical records and noted recent admission for anasarca at the end of October with discharge for to assisted facility. She was treated with albumin and Lasix while in the hospital and responded well to this prior to being transition back to Bumex.. On exam, the patient has anasarca. She is not in any respiratory distress. She has bilateral heel wounds, right worse than left, and right heel wound is very foul-smelling. Workup included evaluation to evaluate for infectious, metabolic, cardiac derangements as well as chest x-ray and x-rays of the bilateral feet.. I independently interpreted x-ray prior to the radiologist read and noted no obvious gas or osteomyelitis of the feet. She does have pulmonary edema on chest x-ray. Please see their read for final interpretation. Labs were obtained that demonstrated leukocytosis which is chronic, slightly worse than last evaluation. Hemoglobin is stable with chronic anemia. Chemistry demonstrates creatinine that is around her baseline, but her BUN is significantly higher than previous. She also has new hyperphosphatemia. She has CKD 4 and states that her urine output has been slightly decreased. Urinalysis obtained is not overtly concerning for infection. For her foot infection, I started the patient on IV vancomycin and cefepime. Ultimately at this time, patient has worsening fluid retention in setting of CKD and decreased urine output. I considered transfer to higher level of care with nephrology, but patient tolerated Lasix challenge with 120 mg of IV Lasix and 50 g of IV Bumex. She had about 700 mL urine out shortly afterward. Anderson catheter was placed for accurate I's and O's. Given she had adequate urine output and response to diuretics, I had an interactive discussion with the hospitalist who admitted the patient in stable condition.
[2024-12-09 16:06] LABS: Albumin Level 3.5 g/dl (3.5-5.0); Chloride 107 mmol/L (98-107); Sodium 138 mmol/L (136-145)
[2024-12-09 16:07] LABS: Potassium 3.8 mmoL/L (3.5-5.1)
[2024-12-09 16:09] LABS: Alanine Aminotransferase 14 U/L (12-78); Anion Gap 13.8 mEq/L (5-15); Aspartate Amino Transferase 22 U/L (14-36); Carbon Dioxide 21 mmol/L (22.0-30.0); Creatinine Clearance Estimated 22 mL/min (50-200); Estimated Glomerular Filt Rate 13 ml/min (>60); GFR (African American) 15 ML/MIN (>60)
[2024-12-09 16:10] LABS: Albumin/Globulin Ratio 1.2 (1.1-1.8); Alkaline Phosphatase 78 U/L (38-126); Bilirubin,Total 0.2 mg/dl (0.2-1.3); Calcium 9.6 mg/dl (8.4-10.2); Glucose 188 mg/dl (74-100); Magnesium 2.1 mg/dl (1.6-2.3); Phosphorous 8.5 mg/dl (2.5-4.5); Total Protein,Serum 6.5 g/dl (6.3-8.2)
[2024-12-09 16:11] LABS: Blood Urea Nitrogen 100 mg/dl (7-17)
[2024-12-09 16:15] LABS: C-Reactive Protein 57.7 mg/L (0-4)
[2024-12-09 16:21] LABS: NT Pro Brain Natriuretic Pep. 4590 pg/mL (0-450)
[2024-12-09 16:26] LABS: Troponin I < 0.01 ng/ml (0.00-0.034)
[2024-12-09 16:30] LABS: T4 (Thyroxine) 6.2 ug/dl (5.53-11.0)
[2024-12-09 16:31] VITALS: BP 142/58; PULSE 61; RESP 13; O2SAT 95
[2024-12-09 16:37] LABS: Anisocytosis 1+; Eosinophils % 4 % (0-3); Lymphocytes % 43 % (10-50); Monocytes % 4 % (2-9); Neutrophils % 48 % (42-76); Platelet Estimate Normal; Total Cells Counted 100
[2024-12-09 16:38] LABS: Microcytosis 1+; Poikilocytosis 1+
[2024-12-09 16:39] LABS: Burr Cells 1+; Ovalocytes 1+
[2024-12-09 16:40] LABS: Target Cells 1+; Tear Drop Cells 1+
[2024-12-09 16:43] LABS: Thyroid Stimulating Hormone 3.89 uIU/mL (0.465-4.68)
--- NOTE | 2024-12-09 17:06 | ECG_ITS ---
APPROVED REPORT Exam: Resting ECG HR:60 bpm ECG Measurements Heart Rate 60 AXES ME 174 P 78 QRSd 116 QRS 26 QT 461 T 75 QTc 463 Conclusion SINUS RHYTHM MODERATE INTRAVENTRICULAR CONDUCTION DELAY [110+ ms QRS DURATION] No sTEMI Electronically signed by : RADHA MELO, 12/09/2024 23:18:28
[2024-12-09] MEDS: FUROSEMIDE 100MG/10ML VIAL 120 MG IV (17:28)
[2024-12-09 17:30] VITALS: BP 172/85; PULSE 61; RESP 14; O2SAT 95
[2024-12-09] MEDS: CEFEPIME HCL 2 GM in 0.9 % SODIUM CHLORIDE 100 ML IV (17:39)
[2024-12-09 17:40] LABS: Microscopic, Urine URINE MICROSCOPIC (MICROSCOPIC)
[2024-12-09 17:42] LABS: Erythrocyte Sedimentation Rate > 140 mm/hr (0-30)
[2024-12-09] MEDS: ALBUMIN HUMAN 50 GM/200 ML BAG IV (17:52)
[2024-12-09 18:06] LABS: Appearance,Urine CLEAR (Clear); Bilirubin,Urine Negative (Negative); Blood, Urine TRACE-I (Negative); Color,Urine YELLOW (Yellow); Glucose,Urine (UA) Negative (Negative); Ketones,Urine Negative (Negative); Leukocyte Esterase,Urine Negative (Negative); Nitrate,Urine Negative (Negative); PH,Urine 5.5 (5.0-8.5); Protein,Urine 2+ (Negative); Specific Gravity, Urine 1.025 (1.005-1.030); Urobilinogen,Urine 0.2 EU/dl (0.2)
[2024-12-09] MEDS: VANCOMYCIN HCL 2,000 MG in 0.9 % SODIUM CHLORIDE 250 ML 125 MG IV (18:32)
[2024-12-09 18:43] LABS: Bacteria,Urine 1+ /lpf; RBC,Urine Occasional #/hpf (0-3)
[2024-12-09 18:45] VITALS: BP 166/83; PULSE 65; RESP 18; O2SAT 93
--- NOTE | 2024-12-09 18:47 | CT_ITS ---
PROCEDURE INFORMATION: Exam: CT Left Lower Extremity Without Contrast, Foot Exam date and time: 12/09/2024 7:07 PM Age: 73 years old Clinical indication: Other: Heel wounds TECHNIQUE: Imaging protocol: CT of the left lower extremity without contrast was performed. Exam focused on the foot. Radiation optimization: All CT scans at this facility use at least one of these dose optimization techniques: automated exposure control; mA and/or kV adjustment per patient size (includes targeted exams where dose is matched to clinical indication); or iterative reconstruction. COMPARISON: CR XR FOOT LT MIN 3V 12/09/2024 4:19 PM FINDINGS: Bones/joints: No bony changes to suggest osteomyelitis. Soft tissues: There is infiltrative subcutaneous edema which extends from the lower leg across the ankle onto the dorsum of the foot and inferiorly around the calcaneus. No air is identified. No evidence of abscess is noted. IMPRESSION: Diffuse subcutaneous edema, this could represent cellulitis, anasarca, lymphedema or other process. No air is seen in the soft tissues and no evidence of abscess or definite osteomyelitis identified.
--- NOTE | 2024-12-09 18:47 | CT_ITS ---
PROCEDURE INFORMATION: Exam: CT Right Lower Extremity Without Contrast, Foot Exam date and time: 12/09/2024 7:05 PM Age: 73 years old Clinical indication: Other: Heel wounds TECHNIQUE: Imaging protocol: CT of the right lower extremity without contrast was performed. Exam focused on the foot. Radiation optimization: All CT scans at this facility use at least one of these dose optimization techniques: automated exposure control; mA and/or kV adjustment per patient size (includes targeted exams where dose is matched to clinical indication); or iterative reconstruction. COMPARISON: CR XR FOOT RT MIN 3V 12/09/2024 4:19 PM FINDINGS: Bones/joints: No evidence of osteomyelitis is present. Soft tissues: Diffuse subcutaneous edema is seen extending from the lower leg across the ankle onto both the dorsum and volar portions of the foot. No air is identified and no evidence of abscess is demonstrated. IMPRESSION: Diffuse subcutaneous edema consistent with cellulitis, anasarca, lymphedema or other process. No subcutaneous air or abscess is identified and no evidence of osteomyelitis is present.
--- NOTE | 2024-12-09 18:47 | PC.NURSE ---
I notified HS of the need for a bed to admit to the hospitalist.
--- NOTE | 2024-12-09 19:13 | PC.NURSE ---
Assumed care of patient, Pt returned to room from CT. Awaiting to call report after shift change.
--- NOTE | 2024-12-09 19:20 | PC.NURSE ---
Attempt report at this time, shift report still going on.
--- NOTE | 2024-12-09 19:33 | PC.NURSE ---
report given to Marcie JOHNSON
[2024-12-09 19:56] LABS: Troponin I 0.01 ng/ml (0.00-0.034)
--- NOTE | 2024-12-09 20:11 | PC.NURSE ---
Assessment charted per the few interactions this RN has had with patient.
--- NOTE | 2024-12-09 20:14 | PC.NURSE ---
2nd albumin infusion complete. Still awaiting transportation upstairs.
[2024-12-09 20:18] VITALS: BP 140/60; PULSE 60; RESP 15; TEMP 37.1; O2SAT 95
--- NOTE | 2024-12-09 20:25 | PC.NURSE ---
pt arrived to floor at this time
[2024-12-09 22:34] LABS: Troponin I < 0.01 ng/ml (0.00-0.034)
--- NOTE | 2024-12-09 23:45 | P.HP_ITS ---
History of Present Illness *Admission Date: 12/09/24 *Reason for visit:: SOB *History of present illness: Patient is a 73-year-old male with past medical history of CKD stage IV, CHF, diabetes mellitus hypertension hyperlipidemia who presents to the hospital due to shortness of breath and swelling. Patient mentions she has been gaining weight lately she also has bilateral heel wounds right worse than left. Patient otherwise denied active chest pain, nausea vomiting diarrhea constipation dysuria. [facility] Disclaimer: The information contained in this section may have been updated after the patient was seen, as this information can be updated by other users. Medical History Callus of foot Edema Hypervolemia Leukocytosis UTI (urinary tract infection) Urinary tract infectious disease Sepsis without septic shock Noncompliance Acute kidney injury superimposed on chronic kidney disease Diabetic foot ulcer Sinusitis Hyperkalemia Urinary tract infection Hyperkalemia High anion gap metabolic acidosis Renal failure Falls frequently Viral URI with cough Skin infection, bacterial Avulsed toenail Ulcer of right great toe due to diabetes mellitus Frequent falls Statin intolerance Hyperlipidemia Bradycardia Syncope and collapse Syncope [place] Neuropathy Osteopenia Onychodystrophy Pain of toe of right foot Fracture of second toe, right, closed Edema of toe Acquired hammer toe Closed rib fracture Fall Hyperglycemia due to type 2 diabetes mellitus Bacteremia due to Klebsiella pneumoniae UTI due to Klebsiella species Gram-negative bacteremia DKA (diabetic ketoacidoses) Hyperglycemia due to type 2 diabetes mellitus CLL (chronic lymphocytic leukemia) History of hypertension Diabetes mellitus Surgical History H/O lithotripsy History of cholecystectomy Family History Other Cancer Congestive heart failure (CHF) Heart disease Lymphoma Social History Smoking Status: Never smoker alcohol intake: never substance use type: denies use current occupational status: retired Travel in the last 8 weeks?: None household members: none housing: house caffeine: Yes Have you lived/traveled outside US in past 30 days?: No Contact w/someone who lives/traveled outside US past 30 days?: No Exposure to someone with infectious disease in past 14 days?: No Do you have a fever (greater than 100.4 F or 38 C)?: No Have you tested positive for COVID-19?: No Exposed to someone with COVID-19 in past 14 days?: No Do you have a sore throat?: No Do you have a cough?: No Do you have any weakness?: No Do you have any diarrhea?: No Are you experiencing any unusual bleeding?: No Do you have any muscle aches/pain?: No Do you have any abdominal pain?: No Are you experiencing loss of taste or smell?: No Other Medical History Have you received the Flu Vaccine for this season: No Have you received the Pneumonia Vaccine: No Review of Systems Review of Systems Review of systems:: pertinent systems reviewed and negative unless documented below Meds Home Medications and Allergies Home Medications ?Medication ?Instructions ?Recorded ?Confirmed ?Type hydralazine 50 mg tablet 50 mg PO TID #90 tabs 12/09/24 Rx Held on 11/28/24. Instructions: re-evaluate as outpt, consider resuming if BP >140 aspirin 81 mg tablet,delayed 81 mg PO DAILY #30 tabs 0 11/28/24 12/09/24 Rx release (Adult Aspirin Regimen) bumetanide 1 mg tablet 4 mg (4 x 1 mg) PO BIDL 30 d ays 11/28/24 12/09/24 Rx #240 tabs gabapentin 400 mg capsule 400 mg PO TID #90 caps 11/2812/09/24 Rx hydrocodone 5 mg-acetaminophen 325 1 tab PO Q8HP PRN m oderate pain 11/28/24 12/09/24 Rx mg tablet (scale score 5-6) 10 days #3 0 tabs insulin glargine 100 unit/mL (3 22 unit (0.22 mL) SQ B ID Diabetes 11/28/24 12/09/24 Rx mL) subcutaneous pen #10 mL insulin lispro 100 unit/mL 0 - 14 unit (0 - 0.14 mL) S Q 11/28/24 12/09/24 Rx subcutaneous pen (Humalog KwikPen TIDWMEAL #15 mL (U-100) Insulin) levothyroxine 88 mcg tablet 88 mcg PO DAILY #30 tabs 0 11/28/24 12/09/24 Rx nifedipine 90 mg tablet,extended 90 mg PO DAILY #30 ta bs 11/28/24 12/09/24 Rx release New Prescriptions to Start Prescriptions: Allergies Allergy/AdvReac Type Severity Reaction Status Date / Time moxifloxacin Allergy Severe S-ANAPHYLAX Verified 11/17/24 22:20 IS Sulfa (Sulfonamide Allergy Mild NA-NAUSEA/V Verified 11/17/24 22:20 Antibiotics) OMITING atorvastatin AdvReac Severe Other Verified 11/17/24 22:20 Exam Data for Last 24 hours Vital signs and Labs for Last 24 Hours: Temp Pulse Resp BP Pulse Ox O2 Del Method 98.7 F 60 15 140/60 93 L Room Air 12/09/24 20:18 12/09/24 20:18 12/09/24 20:18 12/09/24 20:18 12/09/24 18:45 12/09/24 20:18 Laboratory Results - last 24 hr 12/09/24 15:40: WBC 15.4 H, RBC 2.88 L, Hgb 8.0 L, Hct 25.2 L, MCV 87.5, MCH 27.8, MCHC 31.7 L, RDW 15.4, Plt Count 324, MPV 9.6, Neut % (Auto) 47.0, Lymph % (Auto) 43.0, [place] % (Auto) 4.9, Eos % (Auto) 4.0, Baso % (Auto) 0.5, Neut # (Auto) 7.3, Lymph # (Auto) 6.6 H, [place] # (Auto) 0.8, Eos # (Auto) 0.6 H, Baso # (Auto) 0.1, Total Counted 100, Neutrophils % (Manual) 48, Lymphocytes % (Manual) 43, Monocytes % (Manual) 4, Eosinophils % (Manual) 4 H, Basophils % (Manual) 1.0, Platelet Estimate Normal, Poikilocytosis 1+, Anisocytosis 1+, Microcytosis 1+, Target Cells 1+, Tear Drop Cells 1+, Ovalocytes 1+, João Cells 1+, ESR > 140 H, Sodium 138, Potassium 3.8, Chloride 107, Carbon Dioxide 21 L, Anion Gap 13.8, BUN 100 H, Creatinine 3.50 H, Estimated Creat Clear 22, Estimated GFR 13 L*, Est GFR ( Amer) 15 L*, Glucose 188 H, Calcium 9.6, Phosphorus 8.5 H, Magnesium 2.1, Total Bilirubin 0.2, AST 22, ALT 14, Alkaline Phosphatase 78, Troponin I < 0.01, C-Reactive Protein 57.7 H, NT-Pro-B Natriuret Pep 4590 H, Total Protein 6.5, Albumin 3.5, Globulin 3.0, Albumin/Globulin Ratio 1.2, TSH 3.89, Thyroxine (T4) 6.2 12/09/24 15:53: VBG pH 7.36, VBG pCO2 35.0, VBG pO2 87.0 H, VBG HCO3 19.2 L, VBG Total CO2 20.2 L, VBG O2 Saturation 96.3 H, VBG Base Excess -6.4 L, VBG Lactic Acid 2.0 12/09/24 17:30: Urine Color Yellow, Urine Appearance Clear, Urine pH 5.5, Ur Specific [place] 1.025, Urine Protein 2+ A, Urine Glucose (UA) Negative, Urine Ketones Negative, Urine Blood Trace-i, Urine Nitrate Negative, Urine Bilirubin Negative, Urine Urobilinogen 0.2, Ur Leukocyte Esterase Negative, Urine RBC Occasional, Urine WBC 5-10, Ur Squamous Epith Cells 3-5, Urine Bacteria 1+ 12/09/24 18:49: Troponin I 0.01 12/09/24 22:06: Troponin I < 0.01 I & O for Last 24 hours: Intake & Output 12/06/24 12/07/24 12/08/24 12/09/24 23:59 23:59 23:59 23:59 Output Total 400 / 400 Balance -400 / -400 Weight 102.512 kg Microbiology Reports for the Last 24 Hours: Microbiology 12/09/24 15:54 Foot,Right Gram Stain - Final Constitutional Constitutional: no acute distress *Routine HEENT Exam Head: Present normocephalic Eye: Present EOMI and PERRL ENT: Present mucous membranes moist *Routine Neck Exam Neck: Present supple; Absent lymphadenopathy *Routine Respiratory Exam Respiratory: Present CTA bilaterally *Routine Cardiovascular Exam Cardiovascular: Present RRR *Routine Abdominal Exam Abdominal: Present soft and normoactive bowel sounds; Absent tenderness *Routine Rectal Exam Rectal:: deferred *Routine Genitalia Exam Genitalia:: deferred *Routine Extremities Exam Extremities: Present edema; Absent cyanosis or clubbing Comments: b/l heel ulcers *Routine Skin Exam Skin: Present warm; Absent rash *Routine Neurological Exam Neurological: Present alert and oriented X3 Assessment and Plan *Assessment and plan (1) Chronic ulcer of left heel: Status: Acute Category: Medical Code(s): L97.429 - Non-pressure chronic ulcer of left heel and midfoot with unspecified severity (2) CKD (chronic kidney disease): Status: Acute Category: Medical Code(s): N18.9 - Chronic kidney disease, unspecified (3) CHF (congestive heart failure): Status: Acute Category: Medical Code(s): I50.9 - Heart failure, unspecified (4) Anasarca: Status: Acute Category: Medical Code(s): R60.1 - Generalized edema (5) CKD (chronic kidney disease) stage 4, GFR 15-29 ml/min: Status: Acute Category: Medical Code(s): N18.4 - Chronic kidney disease, stage 4 (severe) (6) Diastolic heart failure: Status: Acute Category: Medical Code(s): I50.30 - Unspecified diastolic (congestive) heart failure (7) Acute on chronic diastolic (congestive) heart failure: Status: Acute Category: Medical Code(s): I50.33 - Acute on chronic diastolic (congestive) heart failure (8) Diabetes: Status: Acute Qualifiers: Diabetes mellitus type: type 2 Diabetes mellitus salvage determiner insulin use: with salvage determiner use Diabetes mellitus complication status: with neurologic complications Diabetes mellitus complication detail: with polyneuropathy Qualified Code(s): E11.42 - Type 2 diabetes mellitus with diabetic polyneuropathy; 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 Patient mentions she has been gaining weight lately she also has bilateral heel wounds right worse than left. Patient otherwise denied active chest pain, nausea vomiting diarrhea constipation dysuria. Assessment and plan Shortness of breath bilateral lower extremity swelling likely secondary to acute CHF Order 40 IV twice daily Lasix Closely monitor creatinine CKD stage IV Monitor creatinine Try to avoid nephrotoxic medications as much as possible Bilateral heel ulcers Consult podiatry *Vancomycin, cefepime Consult wound care Consult PT/OT Diabetes mellitus-ordered insulin sliding scale Chronic medical conditions Hypertension Hyperlipidemia Diet regular diet Resume home aspirin Neurontin, hydralazine, insulin glargine 22 units Levothyroxine, Procardia Chest x-ray reviewed does show pulmonary vascular congestion DVT prophylaxis--heparin
[2024-12-10] VITALS (16 sets, daily range): BP systolic 139–167; BP diastolic 54–81; PULSE 58–64; RESP 15–20; TEMP 36.3–37; O2SAT 83–97; BMI 35.2
[2024-12-10 06:29] LABS: Basophils % 0.4 % (0.1-2.0); Eosinophils # 0.4 Kmm3 (0.0-0.4); Immature Granulocytes % 0.6 %; Monocytes # 0.6 K/mm3 (0.1-1.0); Nucleated Red Blood Cells # 0 10^3/uL; Nucleated Red Blood Cells % 0 %; Red Blood Count 2.47 M/mm3 (4.20-5.40)
[2024-12-10 06:33] LABS: Albumin Level 3.3 g/dl (3.5-5.0); Chloride 109 mmol/L (98-107)
[2024-12-10 06:34] LABS: Potassium 3.3 mmoL/L (3.5-5.1); Sodium 139 mmol/L (136-145)
[2024-12-10 06:36] LABS: Alanine Aminotransferase 12 U/L (12-78); Albumin/Globulin Ratio 1.3 (1.1-1.8); Anion Gap 12.3 mEq/L (5-15); Aspartate Amino Transferase 21 U/L (14-36); Carbon Dioxide 21 mmol/L (22.0-30.0); Creatinine Clearance Estimated 24 mL/min (50-200); Estimated Glomerular Filt Rate 13 ml/min (>60); GFR (African American) 16 ML/MIN (>60); Globulin 2.5 g/dL (1.3-3.2); Total Protein,Serum 5.8 g/dl (6.3-8.2)
[2024-12-10 06:36] LABS: POC Glucose,Bedside 154 (70-110)
[2024-12-10 06:36] LABS: POC Glucose,Bedside 144 (70-110)
[2024-12-10 06:37] LABS: Alkaline Phosphatase 67 U/L (38-126); Bilirubin,Total 0.2 mg/dl (0.2-1.3); Calcium 8.4 mg/dl (8.4-10.2); Glucose 141 mg/dl (74-100); Magnesium 2.2 mg/dl (1.6-2.3); Phosphorous 8.5 mg/dl (2.5-4.5)
[2024-12-10 06:42] LABS: C-Reactive Protein 45.5 mg/L (0-4)
[2024-12-10] MEDS: CEFEPIME HCL 2 GM in 0.9 % SODIUM CHLORIDE 100 ML IV ×2 (06:45→17:33)
[2024-12-10 06:58] LABS: Blood Urea Nitrogen 99 mg/dl (7-17)
--- NOTE | 2024-12-10 07:23 | PC.NURSE ---
New Admit. v/s, ox4, RA. No acute events to report. Plan of care ongoing.
[2024-12-10 07:25] LABS: Eosinophils % 3.9 % (0.1-12.0); Hematocrit 21.6 % (37.0-47.0); Immature Granulocytes # 0.07 10^3uL; Lymphocytes # 3.5 K/mm3 (0.7-4.5); Lymphocytes % 32.1 % (10-50); Mean Corpuscular HGB Conc 31.9 g/dL (31.8-35.4); Mean Corpuscular Hemoglobin 27.9 pg (27.0-31.2); Mean Corpuscular Volume 87.4 fl (81-99); Mean Platelet Volume 9.8 fl (7.4-10.4); Monocytes % 5.2 % (1.7-9.3); Neutrophils # 6.3 K/mm3 (1.8-7.8); Neutrophils % 57.8 % (37.0-80.0); Platelet Count 280 K/mm3 (142-424); Red Cell Distribution Width 15.2 % (11.5-17.5); White Blood Count 10.9 K/mm3 (4.8-10.8)
--- NOTE | 2024-12-10 07:35 | EXP.PHA.CONS ---
Pharmacy Consult Date: 12/10/24 Time: 07:35 Referring provider: DR. ELISE Reason for Consult:: VANCOMYCIN DOSING Allergies Allergy/AdvReac Type Severity Reaction Status Date / Time moxifloxacin Allergy Severe S-ANAPHYLAX Verified 11/17/24 22:20 IS Sulfa (Sulfonamide Allergy Mild NA-NAUSEA/V Verified 11/17/24 22:20 Antibiotics) OMITING atorvastatin AdvReac Severe Other Verified 11/17/24 22:20 Home Medications ?Medication ?Instructions ?Recorded ?Confirmed ?Type hydralazine 50 mg tablet 50 mg PO TID #90 tabs 10/20/24 12/09/24 Rx Held on 11/28/24. Instructions: re-evaluate as outpt, consider resuming if BP >140 aspirin 81 mg tablet,delayed 81 mg PO DAILY #30 tabs 11/28/24 12/09/24 Rx release (Adult Aspirin Regimen) bumetanide 1 mg tablet 4 mg (4 x 1 mg) PO BIDL 30 days 11/28/24 12/09/24 Rx #240 tabs gabapentin 400 mg capsule 400 mg PO TID #90 caps 11/28/24 12/09/24 Rx hydrocodone 5 mg-acetaminophen 325 1 tab PO Q8HP PRN moderate pain 11/28/24 12/09/24 Rx mg tablet (scale score 5-6) 10 days #30 tabs insulin glargine 100 unit/mL (3 22 unit (0.22 mL) SQ BID Diabetes 11/28/24 12/09/24 Rx mL) subcutaneous pen #10 mL insulin lispro 100 unit/mL 0 - 14 unit (0 - 0.14 mL) SQ 11/28/24 12/09/24 Rx subcutaneous pen (Humalog KwikPen TIDWMEAL #15 mL (U-100) Insulin) levothyroxine 88 mcg tablet 88 mcg PO DAILY #30 tabs 11/28/24 12/09/24 Rx nifedipine 90 mg tablet,extended 90 mg PO DAILY #30 tabs 11/28/24 12/09/24 Rx release New Prescriptions to Start Prescriptions: Height: 1.73 m Weight: 105.489 kg Laboratory Results:: Laboratory Results - last 24 hr 12/09/24 15:40: WBC 15.4 H, RBC 2.88 L, Hgb 8.0 L, Hct 25.2 L, MCV 87.5, MCH 27.8, MCHC 31.7 L, RDW 15.4, Plt Count 324, MPV 9.6, Neut % (Auto) 47.0, Lymph % (Auto) 43.0, [place] % (Auto) 4.9, Eos % (Auto) 4.0, Baso % (Auto) 0.5, Neut # (Auto) 7.3, Lymph # (Auto) 6.6 H, [place] # (Auto) 0.8, Eos # (Auto) 0.6 H, Baso # (Auto) 0.1, Total Counted 100, Neutrophils % (Manual) 48, Lymphocytes % (Manual) 43, Monocytes % (Manual) 4, Eosinophils % (Manual) 4 H, Basophils % (Manual) 1.0, Platelet Estimate Normal, Poikilocytosis 1+, Anisocytosis 1+, Microcytosis 1+, Target Cells 1+, Tear Drop Cells 1+, Ovalocytes 1+, [place] Cells 1+, ESR > 140 H, Sodium 138, Potassium 3.8, Chloride 107, Carbon Dioxide 21 L, Anion Gap 13.8, BUN 100 H, Creatinine 3.50 H, Estimated Creat Clear 22, Estimated GFR 13 L*, Est GFR ( Amer) 15 L*, Glucose 188 H, Calcium 9.6, Phosphorus 8.5 H, Magnesium 2.1, Total Bilirubin 0.2, AST 22, ALT 14, Alkaline Phosphatase 78, Troponin I < 0.01, C-Reactive Protein 57.7 H, NT-Pro-B Natriuret Pep 4590 H, Total Protein 6.5, Albumin 3.5, Globulin 3.0, Albumin/Globulin Ratio 1.2, TSH 3.89, Thyroxine (T4) 6.2 12/09/24 15:53: VBG pH 7.36, VBG pCO2 35.0, VBG pO2 87.0 H, VBG HCO3 19.2 L, VBG Total CO2 20.2 L, VBG O2 Saturation 96.3 H, VBG Base Excess -6.4 L, VBG Lactic Acid 2.0 12/09/24 17:30: Urine Color Yellow, Urine Appearance Clear, Urine pH 5.5, Ur Specific [place] 1.025, Urine Protein 2+ A, Urine Glucose (UA) Negative, Urine Ketones Negative, Urine Blood Trace-i, Urine Nitrate Negative, Urine Bilirubin Negative, Urine Urobilinogen 0.2, Ur Leukocyte Esterase Negative, Urine RBC Occasional, Urine WBC 5-10, Ur Squamous Epith Cells 3-5, Urine Bacteria 1+ 12/09/24 18:49: Troponin I 0.01 12/09/24 22:06: Troponin I < 0.01 12/10/24 05:25: Sodium 139, Potassium 3.3 L, Chloride 109 H, Carbon Dioxide 21 L, Anion Gap 12.3, BUN 99 H, Creatinine 3.40 H, Estimated Creat Clear 24, Estimated GFR 13 L*, Est GFR ( Amer) 16 L*, Glucose 141 H D, Calcium 8.4, Phosphorus 8.5 H, Magnesium 2.2, Total Bilirubin 0.2, AST 21, ALT 12, Alkaline Phosphatase 67, C-Reactive Protein 45.5 H, Total Protein 5.8 L, Albumin 3.3 L, Globulin 2.5, Albumin/Globulin Ratio 1.3 12/10/24 06:14: POC Glucose 154 H 12/10/24 06:17: POC Glucose 144 H Medical History: Medical History (Updated 12/09/24 @ 18:49 by Melinda Adamson DO) Callus of foot Edema Hypervolemia Leukocytosis UTI (urinary tract infection) Urinary tract infectious disease Sepsis without septic shock Noncompliance Acute kidney injury superimposed on chronic kidney disease Diabetic foot ulcer Sinusitis Hyperkalemia Urinary tract infection Hyperkalemia High anion gap metabolic acidosis Renal failure Falls frequently Viral URI with cough Skin infection, bacterial Avulsed toenail Ulcer of right great toe due to diabetes mellitus Frequent falls Statin intolerance Hyperlipidemia Bradycardia Syncope and collapse [place] Neuropathy Osteopenia Onychodystrophy Pain of toe of right foot Fracture of second toe, right, closed Edema of toe Acquired hammer toe Closed rib fracture Fall Hyperglycemia due to type 2 diabetes mellitus Bacteremia due to Klebsiella pneumoniae UTI due to Klebsiella species Gram-negative bacteremia DKA (diabetic ketoacidoses) Hyperglycemia due to type 2 diabetes mellitus CLL (chronic lymphocytic leukemia) History of hypertension Diabetes mellitus Assessment and Plan Assessment and plan all Dx Assessment and Plan for all problems:: Pharmacokinetic dosing service Objective: Patient: Floor: Age: 73 yo Serum creatinine: 3.40 mg/dL Height: 68.1 Inches Weight (kg): 105.5 Assessment: IBW (kg): 64.13 Dosing wt(kg): 105.5 Estimated Creatinine clearance (ml/min): 14.5 CRCL method: Cockcroft and Gault using ibw(default). Drug selected: Vancomycin Loading dose (mg): Vd (liters): 84.4 (factor used: 0.8 L/kg) Otoniel (hr-1): 0.016 Half life (hrs): 43.32 CLvanco=?? 1.350 L/hr Recommended dose: 1500 mg Interval: 48 hrs Infusion time (hrs): 2.0 Predicted peak (mcg/mL): 32.6 Predicted trough (mcg/mL): 15.62 Total body weight is being used for vancomycin dosing. Recommendations: Give Vancomycin 1500 mg q 48 hrs with an expected Cpeak of 32.6 mcg/ml and an expected Ctrough of 15.62 mcg/ml AUC 0-24 /SEBASTIÁN Data: SEBASTIÁN 0.5 mcg/mL:?? AUC/SEBASTIÁN:? 1111.1 SEBASTIÁN 1.0 mcg/mL:?? AUC/SEBASTIÁN:? 555.6 --------- SEBASTIÁN 1.5 mcg/mL:?? AUC/SEBASTIÁN:? 370.4 SEBASTIÁN 2.0 mcg/mL:?? AUC/SEBASTIÁN:? 277.8 Thank you for the consult, will continue to follow. -RITO RIOS, LORID
[2024-12-10 07:57] LABS: Hemoglobin 6.9 g/dL (12.2-16.2)
--- NOTE | 2024-12-10 08:05 | PC.NURSE ---
notified hospitalist of critical hemoglobin 6.9
--- NOTE | 2024-12-10 08:10 | HMH.PHAINT1 ---
Pharmacy Intervention Comments: MEDICATION RECONCILIATION COMPLETED ON PATIENT USING EXTERNAL FILL HISTORY FROM PHARMACY AND DISCHARGE SUMMARY FROM PREVIOUS ADMISSION. -RITO RIOS, LORID
[2024-12-10 08:26] LABS: Erythrocyte Sedimentation Rate > 140 mm/hr (0-30)
[2024-12-10] MEDS: HYDRALAZINE HCL 25MG TABLET 25 MG PO ×3 (09:05→20:28)
[2024-12-10] MEDS: NIFEdipine XL 30MG TABLET 90 MG PO (09:05)
[2024-12-10] MEDS: ASPIRIN EC 81MG TABLET 81 MG PO (09:05)
[2024-12-10] MEDS: LEVOTHYROXINE 88MCG (0.088MG) TAB 88 MCG PO (09:05)
[2024-12-10] MEDS: FUROSEMIDE 40MG/4ML VIAL 40 MG IV ×2 (09:05→17:33)
[2024-12-10] MEDS: GABAPENTIN 400MG CAPSULE 400 MG PO ×3 (09:07→20:28)
--- NOTE | 2024-12-10 09:16 | SW/DCPLANNER ---
Addendum entered by Samantha Martinez RN 12/13/24 12:05: Spoke with David this morning. Patient is not medically stable for discharge today, likely in next 1-2 days if not transferred to short term hospital for dialysis. Original Note: Patient currently resides at [facility] level of care. I will continue to follow up w/ David at [place] until patient is medically stable for discharge. Updated patient information will be faxed. Discharge date is unknown at this time.
[2024-12-10] MEDS: SODIUM CHLORIDE 0.9% 10ML VIAL 10 ML IV (09:25)
[2024-12-10] MEDS: PANTOPRAZOLE 40MG VIAL 40 MG IV ×2 (09:25→20:29)
--- NOTE | 2024-12-10 10:18 | HMH.PTEV ---
Physical Therapy Evaluation Rehab PT IP Evaluation Start: 12/10/24 07:59 Freq: DAILY Status: Active Protocol: Document 12/10/24 10:12 JO ANN (Rec: 12/10/24 10:17 JO ANN [id number]) Subjective/History History History Per H&P: Patient is a 73-year-old male with past medical history of CKD stage IV, CHF, diabetes mellitus hypertension hyperlipidemia who presents to the hospital due to shortness of breath and swelling. Patient mentions she has been gaining weight lately she also has bilateral heel wounds right worse than left. Patient otherwise denied active chest pain, nausea vomiting diarrhea constipation dysuria. Subjective Subjective Pt reports she used to live with her son and DIL. Pt reports she now is at [facility] where she receives rehab services. Pt reports she used to be ambulatory with RW but has not been able to ambulate recently. New diagnosis of No cancer in past 12 months? [facility] How much help from another person do you currently need... Turning from your A lot back to your side while in a flat bed without using bedrails? Moving from lying on A lot back to sitting on the side of a flat bed without using bedrails? Moving to and from a A lot bed to a chair ( including a wheelchair)? Standing up from a A lot chair using your arms? (e.g., wheelchair, bedside chair) Walking in hospital A lot room? Climbing 3-5 steps A lot with a railing? Mobility Score 12 Mobility Level [facility] Mobility 4 Move to chair/commode Mobility Calculator Rehab PT IP Eval Objective Appearance Patient Behavior Appropriate,Cooperative Patient Orientation Person,Situation Difficulty following none instructions Speech Pattern Clear Ambulation Patient Able to No Ambulate Balance Ability to Arise Unable Sitting Balance Leans or slides in chair Transfers Bed Transfer Ability Moderate x 1 (50% assist) Rehab PT IP prob,goals,plan Problems Date of Evaluation: 12/10/24 PT IP Problems Bed Mobility,Transfers,Gait,Balance,Self care,Safety Rehab Potential Rehab Potential Good Plan PT Intervention Plan Bed Mobility,Transfers,Gait,Balance,Self care,Safety, Therapeutic Exercise Other Intervention 1-2 times Plan PT Plan Frequency Daily Duration LOS Discharge Goals Bed Transfer Ability Minimal x 1 (25% assist) Sit to Stand Chair Maximum x 1 (75% assist) Transfer Ability Discharge Plan PT Discharge Plan Pt refusing mobility assessment d/t fatigue. PT encouraged pt to at least perform bed mobility so PT can perform proper positioning d/t presence of wounds. Pt required Mod A for bed mobility. Pt most appropriate for rehabilitation placement. Pt would benefit from skilled acute care PT to address deficits. Eval Complexity Eval Charge Codes 11789 - Moderate Complexity PHYSICIAN CERTIFICATION: I certify the specified therapy services for Michelle Rivas are required, authorized, and reviewed every 30 days.
--- NOTE | 2024-12-10 11:50 | EXP.CARD.CON ---
History of Present Illness History of Present Illness Consult date: 12/10/24 Chief complaint: Shortness of breath and lower extremity edema History of present illness: 73-year-old white female established patient of our office with a history of 20+ years of poorly controlled/untreated diabetes and CKD. She presented here in July with UTI and septic shock with volume overload due to nephrotic syndrome and 3+ proteinuria. Her echo at that time was normal. Home blood pressures were averaging 200 and have been adjusted as an outpatient. She still has not followed up with nephrology and has not completed the cardiac stress test as recommended. She also has chronic nonhealing ulcerations to both heels. Outpatient arterial duplex did reveal severe bilateral lower extremity stenosis. This was left to medical management due to GFR of 13, CTA of her lower extremities and catheter-based procedures would almost certainly worsen her renal function requiring dialysis which she did not want at this time. She does take aspirin at times but does not take statin due to intolerance and her LDL is 174. Patient presented to the hospital yesterday with worsening shortness of breath and lower extremity edema. Her chest x-ray shows mild pulmonary vascular congestion with small left effusion and her proBNP is 4590 which appears largely unchanged for the past 4 months. Her nonhealing ulcers continue and she has a white blood cell count of 15,000 with undetectably high ESR and CRP. CT of both feet show edema but no osteomyelitis. Her feet are warm to touch but have necrotic lesions on her heels. Blood pressure here 140s over 50s, A1c 9.5, anemia is severe with a hemoglobin of 6.9, creatinine 3.4, GFR 13 with 2-3+ proteinuria. [facility] Disclaimer: The information contained in this section may have been updated after the patient was seen, as this information can be updated by other users. Medical History Callus of foot Edema Hypervolemia Leukocytosis UTI (urinary tract infection) Urinary tract infectious disease Sepsis without septic shock Noncompliance Acute kidney injury superimposed on chronic kidney disease Diabetic foot ulcer Sinusitis Hyperkalemia Urinary tract infection Hyperkalemia High anion gap metabolic acidosis Renal failure Falls frequently Viral URI with cough Skin infection, bacterial Avulsed toenail Ulcer of right great toe due to diabetes mellitus Frequent falls Statin intolerance Hyperlipidemia Bradycardia Syncope and collapse Syncope Falls Neuropathy Osteopenia Onychodystrophy Pain of toe of right foot Fracture of second toe, right, closed Edema of toe Acquired hammer toe Closed rib fracture Fall Hyperglycemia due to type 2 diabetes mellitus Bacteremia due to Klebsiella pneumoniae UTI due to Klebsiella species Gram-negative bacteremia DKA (diabetic ketoacidoses) Hyperglycemia due to type 2 diabetes mellitus CLL (chronic lymphocytic leukemia) History of hypertension Diabetes mellitus Surgical History H/O lithotripsy History of cholecystectomy Family History Other Cancer Congestive heart failure (CHF) Heart disease Lymphoma Social History Smoking Status: Never smoker alcohol intake: never substance use type: denies use current occupational status: retired Travel in the last 8 weeks?: None household members: none housing: house caffeine: Yes Have you lived/traveled outside [place] in past 30 days?: No Contact w/someone who lives/traveled outside US past 30 days?: No Exposure to someone with infectious disease in past 14 days?: No Do you have a fever (greater than 100.4 F or 38 C)?: No Have you tested positive for COVID-19?: No Exposed to someone with COVID-19 in past 14 days?: No Do you have a sore throat?: No Do you have a cough?: No Do you have any weakness?: No Do you have any diarrhea?: No Are you experiencing any unusual bleeding?: No Do you have any muscle aches/pain?: No Do you have any abdominal pain?: No Are you experiencing loss of taste or smell?: No Review of Systems Constitutional Constitutional: Reports fatigue and Reports weakness Eyes Eyes: Denies loss of vision ENT Ears, Nose, Mouth, and Throat: Denies hearing loss and Denies vertigo *Cardiovascular Cardiovascular: Denies chest pain, Reports dyspnea, Reports edema and Denies syncope *Respiratory Respiratory: Denies cough and Reports dyspnea *Gastrointestinal Gastrointestinal: Denies change in stool character, Denies nausea and Denies vomiting *Musculoskeletal Musculoskeletal: Denies muscle weakness Integumentary/Breasts Skin/Breast: Denies changing lesions *Neurologic Neurologic: Denies loss of vision, Denies syncope, Denies vertigo and Reports weakness Endocrine Endocrine: Reports fatigue Exam Data for Last 24 hours Vital signs and Labs for Last 24 Hours: Temp Pulse Resp BP Pulse Ox O2 Del Method 98.3 F 62 16 140/58 L 93 L Room Air 12/10/24 08:00 12/10/24 08:00 12/10/24 08:00 12/10/24 08:00 12/10/24 08:00 12/10/24 08:00 Laboratory Results - last 24 hr 12/09/24 15:40: WBC 15.4 H, RBC 2.88 L, Hgb 8.0 L, Hct 25.2 L, MCV 87.5, MCH 27.8, MCHC 31.7 L, RDW 15.4, Plt Count 324, MPV 9.6, Neut % (Auto) 47.0, Lymph % (Auto) 43.0, [place] % (Auto) 4.9, Eos % (Auto) 4.0, Baso % (Auto) 0.5, Neut # (Auto) 7.3, Lymph # (Auto) 6.6 H, [place] # (Auto) 0.8, Eos # (Auto) 0.6 H, Baso # (Auto) 0.1, Total Counted 100, Neutrophils % (Manual) 48, Lymphocytes % (Manual) 43, Monocytes % (Manual) 4, Eosinophils % (Manual) 4 H, Basophils % (Manual) 1.0, Platelet Estimate Normal, Poikilocytosis 1+, Anisocytosis 1+, Microcytosis 1+, Target Cells 1+, Tear Drop Cells 1+, Ovalocytes 1+, João Cells 1+, ESR > 140 H, Sodium 138, Potassium 3.8, Chloride 107, Carbon Dioxide 21 L, Anion Gap 13.8, BUN 100 H, Creatinine 3.50 H, Estimated Creat Clear 22, Estimated GFR 13 L*, Est GFR ( Amer) 15 L*, Glucose 188 H, Calcium 9.6, Phosphorus 8.5 H, Magnesium 2.1, Total Bilirubin 0.2, AST 22, ALT 14, Alkaline Phosphatase 78, Troponin I < 0.01, C-Reactive Protein 57.7 H, NT-Pro-B Natriuret Pep 4590 H, Total Protein 6.5, Albumin 3.5, Globulin 3.0, Albumin/Globulin Ratio 1.2, TSH 3.89, Thyroxine (T4) 6.2 12/09/24 15:53: VBG pH 7.36, VBG pCO2 35.0, VBG pO2 87.0 H, VBG HCO3 19.2 L, VBG Total CO2 20.2 L, VBG O2 Saturation 96.3 H, VBG Base Excess -6.4 L, VBG Lactic Acid 2.0 12/09/24 17:30: Urine Color Yellow, Urine Appearance Clear, Urine pH 5.5, Ur Specific [place] 1.025, Urine Protein 2+ A, Urine Glucose (UA) Negative, Urine Ketones Negative, Urine Blood Trace-i, Urine Nitrate Negative, Urine Bilirubin Negative, Urine Urobilinogen 0.2, Ur Leukocyte Esterase Negative, Urine RBC Occasional, Urine WBC 5-10, Ur Squamous Epith Cells 3-5, Urine Bacteria 1+ 12/09/24 18:49: Troponin I 0.01 12/09/24 22:06: Troponin I < 0.01 12/10/24 05:25: WBC 10.9 H D, RBC 2.47 L, Hgb 6.9 L, Hct 21.6 L, MCV 87.4, MCH 27.9, MCHC 31.9, RDW 15.2, Plt Count 280, MPV 9.8, Neut % (Auto) 57.8, Lymph % (Auto) 32.1, [place] % (Auto) 5.2, Eos % (Auto) 3.9, Baso % (Auto) 0.4, Neut # (Auto) 6.3, Lymph # (Auto) 3.5, [place] # (Auto) 0.6, Eos # (Auto) 0.4, Baso # (Auto) 0.0, ESR > 140 H, Sodium 139, Potassium 3.3 L, Chloride 109 H, Carbon Dioxide 21 L, Anion Gap 12.3, BUN 99 H, Creatinine 3.40 H, Estimated Creat Clear 24, Estimated GFR 13 L*, Est GFR ( Amer) 16 L*, Glucose 141 H D, Calcium 8.4, Phosphorus 8.5 H, Magnesium 2.2, Total Bilirubin 0.2, AST 21, ALT 12, Alkaline Phosphatase 67, C-Reactive Protein 45.5 H, Total Protein 5.8 L, Albumin 3.3 L, Globulin 2.5, Albumin/Globulin Ratio 1.3 12/10/24 06:14: POC Glucose 154 H 12/10/24 06:17: POC Glucose 144 H 12/10/24 10:03: Blood Type A Positive, Antibody Screen Negative, Crossmatch (AHG) See Detail I & O for Last 24 hours: Intake & Output 12/07/24 12/08/24 12/09/24 12/10/24 23:59 23:59 23:59 23:59 Intake Total Output Total 400 / 400 2200 / 2200 Balance -400 / -380 -2180 / -2180 Weight 226 lb 232 lb 9 oz Microbiology Reports for the Last 24 Hours: Microbiology 12/09/24 15:54 Foot,Right Gram Stain - Final 12/09/24 15:54 Foot,Right Wound Culture - Preliminary Gram Negative Rods Constitutional Constitutional: no acute distress and cooperative *Routine HEENT Exam Eye: Present PERRL *Routine Respiratory Exam Respiratory: Present CTA bilaterally; Absent accessory muscle use, wheezes or crackles *Routine Cardiovascular Exam Cardiovascular: Present RRR, Normal S1 and Normal S2; Absent murmur, gallop or rubs *Routine Abdominal Exam Abdominal: Present soft; Absent tenderness *Routine Extremities Exam Extremities: Present edema and pulses intact; Absent cyanosis *Routine Skin Exam Skin: Present intact; Absent erythema or wounds *Routine Neurological Exam Neurological: Present alert and oriented X3 Routine Psychiatric Exam Psychiatric: Present cooperative Meds Home Medications and Allergies Home Medications ?Medication ?Instructions ?Recorded ?Confirmed ?Type hydralazine 50 mg tablet 50 mg PO TID #90 tabs 10/20/24 12/09/24 Rx Held on 11/28/24. Instructions: re-evaluate as outpt, consider resuming if BP >140 aspirin 81 mg tablet,delayed 81 mg PO DAILY #30 tabs 11/28/24 12/09/24 Rx release (Adult Aspirin Regimen) bumetanide 1 mg tablet 4 mg (4 x 1 mg) PO BIDL 30 days 11/28/24 12/09/24 Rx #240 tabs gabapentin 400 mg capsule 400 mg PO TID #90 caps 11/28/24 12/09/24 Rx hydrocodone 5 mg-acetaminophen 325 1 tab PO Q8HP PRN moderate pain 11/28/24 12/09/24 Rx mg tablet (scale score 5-6) 10 days #30 tabs insulin glargine 100 unit/mL (3 22 unit (0.22 mL) SQ BID Diabetes 11/28/24 12/09/24 Rx mL) subcutaneous pen #10 mL levothyroxine 88 mcg tablet 88 mcg PO DAILY #30 tabs 11/28/24 12/09/24 Rx nifedipine 90 mg tablet,extended 90 mg PO DAILY #30 tabs 11/28/24 12/09/24 Rx release clonazepam 0.5 mg tablet 0.5 mg PO BIDP PRN Anxiety 12/10/24 12/10/24 History insulin lispro 100 unit/mL 0 - 14 unit SQ AC 12/10/24 12/10/24 History subcutaneous pen (Humalog KwikPen (U-100) Insulin) New Prescriptions to Start Prescriptions: Allergies Allergy/AdvReac Type Severity Reaction Status Date / Time moxifloxacin Allergy Severe S-ANAPHYLAX Verified 11/17/24 22:20 IS Sulfa (Sulfonamide Allergy Mild NA-NAUSEA/V Verified 11/17/24 22:20 Antibiotics) OMITING atorvastatin AdvReac Severe Other Verified 11/17/24 22:20 Assessment and Plan *Assessment and plan (1) Pressure ulcer, heel, right, unstageable: Status: Acute Category: Medical Code(s): L89.610 - Pressure ulcer of right heel, unstageable (2) CKD (chronic kidney disease): Status: Acute Category: Medical Code(s): N18.9 - Chronic kidney disease, unspecified (3) Anasarca: Status: Acute Category: Medical Code(s): R60.1 - Generalized edema (4) DM type 2 causing vascular disease: Status: Chronic Category: Medical Code(s): E11.59 - Type 2 diabetes mellitus with other circulatory complications (5) Peripheral artery disease: Status: Acute Category: Medical Code(s): I73.9 - Peripheral vascular disease, unspecified (6) Nephrotic syndrome: Status: Resolved Category: Medical Code(s): N04.9 - Nephrotic syndrome with unspecified morphologic changes Plan Anasarca/Vol Overlad - secondary to acute on chronic CKD-IV with nephrotic syndrome - recommend transfer to hospital with interventional nephrology PAD with non-healing BLE heel ulcers - severe PAD noted on Arterial duplex in September - she has WBC 15k and undetectbaly elevated ESR and CRP - CT feet - edema no osteomyelitis - pt needs further evaluation and vascular intervention on her feet, this cannot be done safely here without inpatient nephrology and dialsysis back up - recommend transfer to hospital with vascular surgery CHF - historically diagnosed with this due to elevated ProBNP, GANT, and peripheral edema but always in setting of CKD-IV and unremarkable ECHO (last was here 07/2024) so likely this is only renal in etiology - will repeat ECHO - Outpatient stress test ordered but never completed. This would be informational only as pt could not tolerate LHC due to renal failure and severe anemia Anemia - severe with Hgb 6 - suspect due to renal failure, need to eval for blood loss *As discussed above our recommendation is transfer to hospital that has both interventional nephrology and vascular surgery. Patient is agreeable to this.
--- NOTE | 2024-12-10 13:48 | HMH.OTEV ---
OT Inpatient Evaluation Rehab OT IP Evaluation Start: 12/10/24 07:59 Freq: DAILY Status: Active Protocol: Document 12/10/24 13:43 [facility] (Rec: 12/10/24 13:48 [facility] [id number]) Rehab OT IP Assessment Subjective History Pt oriented 3 on arrival. Pt agreeable to engage in therapy evaluation. Per H&P: Patient is a 73-year-old male with past medical history of CKD stage IV, CHF, diabetes mellitus hypertension hyperlipidemia who presents to the hospital due to shortness of breath and swelling. Patient mentions she has been gaining weight lately she also has bilateral heel wounds right worse than left. Patient otherwise denied active chest pain, nausea vomiting diarrhea constipation dysuria. Subjective Pt reports she used to live with her son and DIL. Pt reports she now is at [facility] where she receives rehab services. Pt reports she used to be able to complete functional transfers with RW but has not been able to transfer recently. Pt also claims she was independent with ADLs, but was dependent upon family for completion of all IADLs. Objective Patient Orientation Person,Place,Birthday Right Upper WFL Extremity Gross ROM Left Upper Extremity WFL Gross ROM Bed Mobility bed mobility-scooting,bed mobility - supine/sit Assist Level Maximum x 2 (75% assist) Rehab OT IP prob,goals,plan Problems Date of Evaluation: 12/10/24 OT IP Problems Bed Mobility,Transfers,Balance,Self care,Safety Rehab Potential Rehab Potential Good Equipment Needs Assistive Devices Rolling / Wheeled Walker Plan OT intervention Plan Bed Mobility,Transfers,Balance,Self care,Safety, Therapeutic Exercise OT Plan Frequency Daily Duration LOS Discharge Goals Bed Mobility Ability Assistance x1 Sit to Stand Chair Maximum x 1 (75% assist) Transfer Ability Chair Transfer Maximum x 1 (75% assist) Ability Chair Transfer Stand Pivot Technique Chair Transfer Rolling Walker Assistive Devices Lower Body Dressing Maximum Assistance Ability Upper Body Dressing Minimal Assistance Ability Performing Toilet Maximum Assistance Hygiene Ability Overall Commode/ Maximum Assistance Toilet Transfer Ability Commode/Toilet Sit to/from Ambulatory Transfer Technique Discharge Plan OT Discharge Plan Pt will continue to be seen for OT services while at [facility]. Pt is most appropriate for short term rehab at [facility] following discharge from hospitals. Continued skilled therapy is important in order for patient to improve strength, safety, endurance, ADL independence, and functional transfers to reach PLOF. Eval Complexity Eval Charge Codes 78217 - Moderate Complexity PHYSICIAN CERTIFICATION: I certify the specified therapy services for Micehlle Monk Rivas are required, authorized, and reviewed every 30 days.
[2024-12-10] MEDS: HYDROCODONE/APAP 5/325 MG TABLET 1 TAB PO (13:49)
--- NOTE | 2024-12-10 15:10 | PC.NURSE ---
patient O2 saturation was 83% on room air while sleeping. 2L NC applied to pt. pt O2 saturations 95% now.
--- NOTE | 2024-12-10 15:33 | HMH.PTWOUND ---
Rehab Inpt Wound Evaluation Rehab IP Wound Evaluation Start: 12/10/24 08:01 Freq: ONCE Status: Active Protocol: Document 12/10/24 13:00 [facility] (Rec: 12/10/24 15:33 PHORNE [id number]) Rehab PT Wound Assessment Subjective Subjective 73 yowf adm to [facility] with past medical history of CKD stage IV, CHF, diabetes mellitus hypertension hyperlipidemia who presents to the hospital due to shortness of breath and swelling. Patient mentions she has been gaining weight lately she also has bilateral heel wounds right worse than left. Patient otherwise denied active chest pain, nausea vomiting diarrhea constipation dysuria. Pt presents with B heel wounds upon admission. Wound Right Posterior Heel Wound Type Pressure Ulcer Is This a Chronic Yes Wound Wound Staging Stage II Query Text:Stage I - Unbroken, red skin, no blanching. Stage II - Skin broken, superficial skin loss involving epidermis alone or also dermis. Partial loss of skin layers. Stage III - Pressure area involves epidermis, dermis and subcutaneous tissue, full thickness skin loss. Stage IV - Pressure area involves epidermis, subcutaneous tissue, bone and other supportive tissue. Full thickness skin loss with extensive destruction of underlying tissue and structures. Wound Length (cm) 3.0 Wound Width (cm) 4.5 Wound Depth (cm) 0.2 Wound Bed Appearance Beefy Red,Prabhakar,White Wound Margins Well Defined Description Surrounding Tissue Blanched/Dull Appearance Edema Type Pitting Edema Degree 1+ Query Text:1+ Trace, Barely Detectable, Rebound 15-30 seconds 2+ Moderate, Slight Indentation, Rebound 10-20 seconds 3+ Deep, Deeper Indentation, Rebound > 30 seconds 4+ Very Deep, Rebound > 60 seconds Wound Drainage Serosanguineous Description Drainage Amount Moderate Drainage Odor Foul Odor Primary Dressing Absorbant Pad Comment calcium alginate Wound Secondary Composite Dressing Type Comment bordered foam Wound Debridement Gauze,Mechanical Method Wound Debridement Moderate Amount of Tissue Removed Dressing Change Tolerated Well Patient Tolerance Left Posterior Heel Wound Type Pressure Ulcer Is This a Chronic Yes Wound Wound Staging Stage II Query Text:Stage I - Unbroken, red skin, no blanching. Stage II - Skin broken, superficial skin loss involving epidermis alone or also dermis. Partial loss of skin layers. Stage III - Pressure area involves epidermis, dermis and subcutaneous tissue, full thickness skin loss. Stage IV - Pressure area involves epidermis, subcutaneous tissue, bone and other supportive tissue. Full thickness skin loss with extensive destruction of underlying tissue and structures. Wound Length (cm) 1.5 Wound Width (cm) 2.0 Wound Depth (cm) 0.1 Wound Bed Appearance Beefy Red Wound Margins Well Defined Description Surrounding Tissue Blanched/Dull Appearance Edema Type Pitting Edema Degree 1+ Query Text:1+ Trace, Barely Detectable, Rebound 15-30 seconds 2+ Moderate, Slight Indentation, Rebound 10-20 seconds 3+ Deep, Deeper Indentation, Rebound > 30 seconds 4+ Very Deep, Rebound > 60 seconds Edema Appearance Weeping Wound Drainage Serosanguineous Description Drainage Amount Small Wound Topical Saline Irrigant Solution/Irrigant Primary Dressing Absorbant Pad Comment calcium alginate Wound Secondary Composite Dressing Type Comment bordered foam Wound Debridement Gauze,Mechanical Method Wound Debridement Minimal Amount of Tissue Removed Dressing Change Tolerated Well Patient Tolerance Plan/Recommendation Comment R heel wound with foul odor despite cleansing and increased drainage vs L. Continue dressing changes every other day and pressure relief to B heels. Eval Complexity Eval Charge Codes 82204 - High Complexity Junior-Umana Wound Assessment Tool Assessment Wound size 2=Length x Width 4--<16 sq cm Wound depth 3=Full thickness skin loss involving damage or necrosis of Wound edges 3=Well-defined, not attached to wound base Wound undermining 1=None present Necrotic tissue type 2=White/prabhakar non-viable tissue &/or non-adherent yellow slough Necrotic tissue 4=>50% and <75% of wound covered amount Exudate type 3=Serosanguineous: thin, watery, pale red/pink Exudate amount 4=Moderate Skin color 3=White or prabhakar pallor or hypopigmented surrounding wound Peripheral tissue 4=Pitting edema extends <4 cm around wound edema Peripheral tissue 1=None present induration Granulation tissue 4=[place], &/or dull, dusky red &/or fills < or = 25% of wound Epithelialization 5= < 25% wound covered Wound assessment 39 total score PHYSICIAN CERTIFICATION: I certify the specified therapy services for Michelle Rivas are required, authorized, and reviewed every 30 days.
--- NOTE | 2024-12-10 16:50 | PC.WOUNDNOTE ---
TOP OF RIGHT FOOT RIGHT HEEL LEFT HEEL
[2024-12-10] MEDS: humaLOG 100 UNITS/ML 10ML VIAL (SSI) SUBCUT ×2 (17:33→20:29)
--- NOTE | 2024-12-10 18:23 | PC.NURSE ---
Pt is A&Ox4. Vital signs stable tolerating room air while awake. 2L NC applied while pt sleeps d/t de-satting. 1 unit of blood ordered and infused today. Pt tolerated well. Wound care consulted. Wounds to bilateral heels and right foot with dressings in place. Dressings changed multiple times today. See nursing wound care note. IV lasix given per MAR with adequate urinary output. Anderson in place. Pt resting comfortably in bed with no further needs voiced at this time. Call light within reach.
--- NOTE | 2024-12-10 18:37 | P.PN_ITS ---
Subjective *Date: 12/23/24 *Time: 14:52 Exam Data for Last 24 hours Vital signs and Labs for Last 24 Hours: Temp Pulse Resp BP Pulse Ox O2 Del Method O2 Flow Rate 97.4 F L 59 L 16 145/55 H 97 Nasal Cannula 2 12/10/24 16:46 12/10/24 16:46 12/10/24 16:46 12/10/24 16:46 12/10/24 16:46 12/10/24 18:27 12/10/24 18:27 Laboratory Results - last 24 hr 12/09/24 17:30: Urine RBC Occasional, Urine WBC 5-10, Ur Squamous Epith Cells 3- 5, Urine Bacteria 1+ 12/09/24 18:49: Troponin I 0.01 12/09/24 22:06: Troponin I < 0.01 12/10/24 05:25: WBC 10.9 H D, RBC 2.47 L, Hgb 6.9 L, Hct 21.6 L, MCV 87.4, MCH 27.9, MCHC 31.9, RDW 15.2, Plt Count 280, MPV 9.8, Neut % (Auto) 57.8, Lymph % (Auto) 32.1, [place] % (Auto) 5.2, Eos % (Auto) 3.9, Baso % (Auto) 0.4, Neut # (Auto) 6.3, Lymph # (Auto) 3.5, [place] # (Auto) 0.6, Eos # (Auto) 0.4, Baso # (Auto) 0.0, ESR > 140 H, Sodium 139, Potassium 3.3 L, Chloride 109 H, Carbon Dioxide 21 L, Anion Gap 12.3, BUN 99 H, Creatinine 3.40 H, Estimated Creat Clear 24, Estimated GFR 13 L*, Est GFR ( Amer) 16 L*, Glucose 141 H D, Calcium 8.4, Phosphorus 8.5 H, Magnesium 2.2, Total Bilirubin 0.2, AST 21, ALT 12, Alkaline Phosphatase 67, C-Reactive Protein 45.5 H, Total Protein 5.8 L, Albumin 3.3 L, Globulin 2.5, Albumin/Globulin Ratio 1.3 12/10/24 06:14: POC Glucose 154 H 12/10/24 06:17: POC Glucose 144 H 12/10/24 10:03: Blood Type A Positive, Antibody Screen Negative, Crossmatch (AHG) See Detail I & O for Last 24 hours: Intake & Output 12/07/24 12/08/24 12/09/24 12/10/24 23:59 23:59 23:59 23:59 Intake Total 270 / 270 Output Total 400 / 400 3050 / 3050 Balance -400 / -380 -2780 / -2780 Weight 102.512 kg 105.48 kg Microbiology Reports for the Last 24 Hours: Microbiology 12/09/24 16:46 Blood Blood Culture - Preliminary NO GROWTH AFTER 24 HOURS 12/09/24 16:46 Blood Blood Culture - Preliminary NO GROWTH AFTER 24 HOURS 12/09/24 15:54 Foot,Right Gram Stain - Final 12/09/24 15:54 Foot,Right Wound Culture - Preliminary Gram Negative Rods Assessment and Plan *Assessment and plan (1) Chronic ulcer of left heel: Status: Acute Category: Medical Code(s): L97.429 - Non-pressure chronic ulcer of left heel and midfoot with unspecified severity (2) CKD (chronic kidney disease): Status: Acute Category: Medical Code(s): N18.9 - Chronic kidney disease, unspecified (3) CHF (congestive heart failure): Status: Acute Category: Medical Code(s): I50.9 - Heart failure, unspecified (4) Anasarca: Status: Acute Category: Medical Code(s): R60.1 - Generalized edema (5) CKD (chronic kidney disease) stage 4, GFR 15-29 ml/min: Status: Acute Category: Medical Code(s): N18.4 - Chronic kidney disease, stage 4 (severe) (6) Diastolic heart failure: Status: Acute Category: Medical Code(s): I50.30 - Unspecified diastolic (congestive) heart failure (7) Acute on chronic diastolic (congestive) heart failure: Status: Acute Category: Medical Code(s): I50.33 - Acute on chronic diastolic (congestive) heart failure (8) Diabetes: Status: Acute Qualifiers: Diabetes mellitus complication detail: with polyneuropathy Diabetes mellitus complication status: with neurologic complications Diabetes mellitus long term acute care registered nurse insulin use: with long term acute care registered nurse use Diabetes mellitus type: type 2 Qualified Code(s): E11.42 - Type 2 diabetes mellitus with diabetic polyneuropathy; Z79.4 - residential (current) use of insulin Category: Medical Code(s): E11.9 - Type 2 diabetes mellitus without complications Plan iMchelle Davis is a 73-year-old female presented with shortness of breath and worsening lower extremity edema and was admitted for HFpEF exacerbation in the setting of CKD stage V. #HFpEF exacerbation #ESRD volume overload #Hyper uremia ? Presented with shortness of breath, worsening lower extremity swelling. BNP 4590. Creatinine 3.5, GFR 13. ? ECHO July 2024 revealed normal biventricular systolic, may have slight diastolic dysfunction with increased LV wall thickness. ? While there is mild heart failure, advanced CKD also seems to be big playing a factor in volume overload. At the same time, patient is diuresing well without electrolyte abnormalities. ? Uremia around 98 today, around 60 just 2 weeks ago. Highly concerning for rapidly worsening renal function. Elevated BNP could also be sequela of poor clearance from ESRD. Will continue diuresis at this time, if BUN worsens tomorrow we will consider transfer. ?Continue IV Lasix 40 mg twice daily. Net -2L. ? Avoid nephrotoxic medications, renally dose medications. #Type 2 diabetes ? Hemoglobin A1c 9.5. ? LDSSI, ACHS glucose checks. ? Continue Lantus 22 units nightly. #PAD #Bilateral diabetic foot ulcers ? Did not seem to be healing well in the setting of severe PAD on arterial Doppler. ESRD precludes catheterization in this time. ? Continue cefepime, wound culture showing E. coli and gram-positive cocci. ? Continue aspirin. #Hypothyroidism ? Continue home levothyroxine 88 mcg. TFT stable. #GERD ? Continue home PPI.
[2024-12-10 19:19] LABS: Hematocrit 24.8 % (37.0-47.0)
[2024-12-10 19:59] LABS: Hemoglobin 8.1 g/dL (12.2-16.2)
[2024-12-10 20:19] LABS: POC Glucose,Bedside 193 (70-110)
[2024-12-10 20:19] LABS: POC Glucose,Bedside 220 (70-110)
[2024-12-10 20:19] LABS: POC Glucose,Bedside 168 (70-110)
[2024-12-10 20:19] LABS: POC Glucose,Bedside 147 (70-110)
[2024-12-10] MEDS: HEPARIN SODIUM 5,000 UNIT/ML VIAL 5000 UNIT SUBCUT (20:30)
[2024-12-10] MEDS: INSULIN GLARGINE 100 UNITS/ML 3ML FLEXPEN 22 UNIT SUBCUT (20:30)
--- NOTE | 2024-12-11 03:14 | PC.NURSE ---
Pt AOx4. 20 RAC and 20 LAC, both saline locked. Pt is on room air and tolerating well. Bilateral wounds on heels. Pt is currently resting in bed with eyes closed. Respirations even and unlabored. Bed is low, locked, and call light is in reach.
[2024-12-11 04:00] VITALS: BP 141/56; PULSE 62; RESP 17; TEMP 36.9; O2SAT 92; BMI 35.3
[2024-12-11] MEDS: LEVOTHYROXINE 88MCG (0.088MG) TAB 88 MCG PO (06:09)
[2024-12-11 08:00] VITALS: BP 147/60; PULSE 62; RESP 16; TEMP 36.6; O2SAT 99
[2024-12-11] MEDS: HYDRALAZINE HCL 25MG TABLET 25 MG PO ×3 (08:27→21:02)
[2024-12-11] MEDS: GABAPENTIN 400MG CAPSULE 400 MG PO ×3 (08:28→21:07)
[2024-12-11] MEDS: ASPIRIN EC 81MG TABLET 81 MG PO (08:28)
[2024-12-11] MEDS: FUROSEMIDE 40MG/4ML VIAL 40 MG IV ×2 (08:28→16:27)
[2024-12-11] MEDS: HEPARIN SODIUM 5,000 UNIT/ML VIAL 5000 UNIT SUBCUT ×2 (08:28→21:01)
[2024-12-11] MEDS: PANTOPRAZOLE 40MG VIAL 40 MG IV ×2 (08:31→21:01)
[2024-12-11 08:44] LABS: POC Glucose,Bedside 104 (70-110)
[2024-12-11 09:17] LABS: POC Glucose,Bedside 110 (70-110)
[2024-12-11 10:01] LABS: Albumin Level 3.3 g/dl (3.5-5.0); Chloride 110 mmol/L (98-107); Sodium 141 mmol/L (136-145)
[2024-12-11 10:02] LABS: Basophils % 0.3 % (0.1-2.0); Eosinophils # 0.4 Kmm3 (0.0-0.4); Hematocrit 26.1 % (37.0-47.0); Hemoglobin 8.5 g/dL (12.2-16.2); Immature Granulocytes # 0.06 10^3uL; Immature Granulocytes % 0.5 %; Lymphocytes # 3.8 K/mm3 (0.7-4.5); Lymphocytes % 34.3 % (10-50); Mean Corpuscular HGB Conc 32.6 g/dL (31.8-35.4); Mean Corpuscular Hemoglobin 28.5 pg (27.0-31.2); Mean Corpuscular Volume 87.6 fl (81-99); Mean Platelet Volume 9.4 fl (7.4-10.4); Monocytes # 0.6 K/mm3 (0.1-1.0); Monocytes % 5.8 % (1.7-9.3); Neutrophils # 6.1 K/mm3 (1.8-7.8); Neutrophils % 55.1 % (37.0-80.0); Nucleated Red Blood Cells # 0 10^3/uL; Nucleated Red Blood Cells % 0 %; Platelet Count 266 K/mm3 (142-424); Potassium 3.2 mmoL/L (3.5-5.1); Red Blood Count 2.98 M/mm3 (4.20-5.40); Red Cell Distribution Width 15.1 % (11.5-17.5); Red Cell Distribution Width-SD 48.1 fL; White Blood Count 11.1 K/mm3 (4.8-10.8)
[2024-12-11 10:04] LABS: Alanine Aminotransferase 11 U/L (12-78); Albumin/Globulin Ratio 1.2 (1.1-1.8); Alkaline Phosphatase 77 U/L (38-126); Anion Gap 12.2 mEq/L (5-15); Aspartate Amino Transferase 15 U/L (14-36); Bilirubin,Total 0.3 mg/dl (0.2-1.3); Carbon Dioxide 22 mmol/L (22.0-30.0); Creatinine Clearance Estimated 23 mL/min (50-200); Estimated Glomerular Filt Rate 13 ml/min (>60); GFR (African American) 15 ML/MIN (>60); Globulin 2.7 g/dL (1.3-3.2)
[2024-12-11 10:05] LABS: Calcium 8.6 mg/dl (8.4-10.2); Glucose 124 mg/dl (74-100); Magnesium 2.2 mg/dl (1.6-2.3)
[2024-12-11 10:12] LABS: Blood Urea Nitrogen 95 mg/dl (7-17)
[2024-12-11] MEDS: humaLOG 100 UNITS/ML 10ML VIAL (SSI) SUBCUT ×3 (11:56→21:00)
[2024-12-11 12:04] LABS: POC Glucose,Bedside 172 (70-110)
[2024-12-11 16:00] VITALS: BP 140/61; PULSE 59; RESP 17; TEMP 36.6; O2SAT 96
[2024-12-11] MEDS: CEFEPIME HCL 2 GM in 0.9 % SODIUM CHLORIDE 100 ML IV (16:31)
--- NOTE | 2024-12-11 16:39 | PC.NURSE ---
AOX4, 2LNC FOR O2 SUPPORT. JAIME CATH IN PLACE TO BEDSIDE DRAIN. IV IN LEFT AC REMOVED TODAY R/T PRESENCE OF EDEMA TO LUE. DRESSING CHANGED TO TOP OF RIGHT FOOT.
[2024-12-11 16:41] LABS: POC Glucose,Bedside 193 (70-110)
[2024-12-11] MEDS: VANCOMYCIN/WATER FOR INJ (PEG) 1.5 GM/300 ML PIGGYBACK IV (17:30)
--- NOTE | 2024-12-11 18:30 | EXP.PN ---
Subjective *Date: 12/12/24 *Time: 22:56 Exam Data for Last 24 hours Vital signs and Labs for Last 24 Hours: Temp Pulse Resp BP Pulse Ox O2 Del Method O2 Flow Rate 98 F 59 L 17 140/61 96 Nasal Cannula 2 12/11/24 16:00 12/11/24 16:00 12/11/24 16:00 12/11/24 16:00 12/11/24 16:00 12/11/24 18:27 12/11/24 18:27 Laboratory Results - last 24 hr 12/10/24 09:09: POC Glucose 147 H 12/10/24 11:48: POC Glucose 168 H 12/10/24 17:26: POC Glucose 220 H 12/10/24 19:00: Hgb 8.1 L D, Hct 24.8 L 12/10/24 19:34: POC Glucose 193 H 12/11/24 05:05: POC Glucose 110 12/11/24 08:27: POC Glucose 104 12/11/24 09:30: WBC 11.1 H, RBC 2.98 L, Hgb 8.5 L, Hct 26.1 L, MCV 87.6, MCH 28.5, MCHC 32.6, RDW 15.1, Plt Count 266, MPV 9.4, Neut % (Auto) 55.1, Lymph % (Auto) 34.3, [place] % (Auto) 5.8, Eos % (Auto) 4.0, Baso % (Auto) 0.3, Neut # (Auto) 6.1, Lymph # (Auto) 3.8, [place] # (Auto) 0.6, Eos # (Auto) 0.4, Baso # (Auto) 0.0, Sodium 141, Potassium 3.2 L, Chloride 110 H, Carbon Dioxide 22, Anion Gap 12.2, BUN 95 H, Creatinine 3.50 H, Estimated Creat Clear 23, Estimated GFR 13 L*, Est GFR ( Amer) 15 L*, Glucose 124 H, Calcium 8.6, Magnesium 2.2, Total Bilirubin 0.3, AST 15 D, ALT 11 L, Alkaline Phosphatase 77, Total Protein 6.0 L, Albumin 3.3 L, Globulin 2.7, Albumin/Globulin Ratio 1.2 12/11/24 11:53: POC Glucose 172 H 12/11/24 16:26: POC Glucose 193 H I & O for Last 24 hours: Intake & Output 12/08/24 12/09/24 12/10/24 12/11/24 23:59 23:59 23:59 23:59 Intake Total 510 / 510 1200 / 1200 Output Total 400 / 400 3250 / 3250 1675 / 1675 Balance -400 / -380 -2740 / -2740 -475 / -475 Weight 102.512 kg 105.48 kg 105.823 kg Microbiology Reports for the Last 24 Hours: Microbiology 12/09/24 16:46 Blood Blood Culture - Preliminary NO GROWTH AFTER 48 HOURS 12/09/24 16:46 Blood Blood Culture - Preliminary NO GROWTH AFTER 48 HOURS 12/09/24 15:54 Foot,Right Gram Stain - Final 12/09/24 15:54 Foot,Right Wound Culture - Preliminary Escherichia coli Constitutional Constitutional: no acute distress *Routine HEENT Exam Head: Present normocephalic Eye: Present EOMI and PERRL ENT: Present mucous membranes moist *Routine Neck Exam Neck: Present supple; Absent lymphadenopathy *Routine Respiratory Exam Respiratory: Present CTA bilaterally *Routine Cardiovascular Exam Cardiovascular: Present RRR *Routine Abdominal Exam Abdominal: Present soft and normoactive bowel sounds; Absent tenderness *Routine Extremities Exam Extremities: Present edema; Absent cyanosis or clubbing *Routine Skin Exam Skin: Present warm; Absent rash *Routine Neurological Exam Neurological: Present alert and oriented X3 Assessment and Plan *Assessment and plan (1) ESRD (end stage renal disease): Status: Acute Category: Medical Code(s): N18.6 - End stage renal disease (2) Peripheral artery disease: Status: Acute Category: Medical Code(s): I73.9 - Peripheral vascular disease, unspecified (3) Chronic ulcer of left heel: Status: Acute Category: Medical Code(s): L97.429 - Non-pressure chronic ulcer of left heel and midfoot with unspecified severity (4) CHF (congestive heart failure): Status: Acute Category: Medical Code(s): I50.9 - Heart failure, unspecified Plan Michelle Davis is a 73-year-old female presented with shortness of breath and worsening lower extremity edema and was admitted for HFpEF exacerbation in the setting of CKD stage V. #HFpEF exacerbation #ESRD volume overload #Hyper uremia ? Presented with shortness of breath, worsening lower extremity swelling. BNP 4590. Creatinine 3.5, GFR 13. ? ECHO July 2024 revealed normal biventricular systolic, may have slight diastolic dysfunction with increased LV wall thickness. ? While there is mild heart failure, advanced CKD also seems to be big playing a factor in volume overload. At the same time, patient is diuresing well without electrolyte abnormalities. ? Uremia around 98 today, around 60 just 2 weeks ago. Highly concerning for rapidly worsening renal function. Elevated BNP could also be sequela of poor clearance from ESRD. Will continue diuresis at this time, if BUN worsens tomorrow we will consider transfer. ?Continue IV Lasix 40 mg twice daily. Net -3L. ? Avoid nephrotoxic medications, renally dose medications. #Type 2 diabetes ? Hemoglobin A1c 9.5. ? LDSSI, ACHS glucose checks. ? Continue Lantus 22 units nightly. #PAD #Bilateral diabetic foot ulcers ? Did not seem to be healing well in the setting of severe PAD on arterial Doppler. ESRD precludes catheterization in this time. ? Continue cefepime, wound culture showing E. coli and gram-positive cocci. ? Continue aspirin. #Hypothyroidism ? Continue home levothyroxine 88 mcg. TFT stable. #GERD ? Continue home PPI. Full code DVT prophylaxis: Heparin 5000 units 3 times daily
[2024-12-11 20:00] VITALS: BP 147/60; PULSE 61; RESP 16; TEMP 36.8; O2SAT 95
[2024-12-11 20:50] LABS: POC Glucose,Bedside 220 (70-110)
[2024-12-11] MEDS: INSULIN GLARGINE 100 UNITS/ML 3ML FLEXPEN 22 UNIT SUBCUT (21:00)
[2024-12-12 04:00] VITALS: BP 146/66; PULSE 65; RESP 16; TEMP 36.9; O2SAT 96; BMI 35.4
--- NOTE | 2024-12-12 04:05 | PC.NURSE ---
Pt AOx4. Wheezing throughout lung sounds. Dressings on heels changed and heels floated off of bed. Currently resting in bed with eyes closed. Respirations even and unlabored. 2L o2. Bed is low, locked and call light is in reach.
[2024-12-12 05:15] LABS: POC Glucose,Bedside 99 (70-110)
[2024-12-12] MEDS: LEVOTHYROXINE 88MCG (0.088MG) TAB 88 MCG PO (06:08)
[2024-12-12 08:00] VITALS: BP 151/56; PULSE 67; RESP 17; TEMP 36.7; O2SAT 95
[2024-12-12 08:08] LABS: Basophils % 0.3 % (0.1-2.0); Eosinophils # 0.6 Kmm3 (0.0-0.4); Eosinophils % 4.5 % (0.1-12.0); Hematocrit 26.4 % (37.0-47.0); Hemoglobin 8.5 g/dL (12.2-16.2); Immature Granulocytes # 0.05 10^3uL; Immature Granulocytes % 0.4 %; Lymphocytes # 3.9 K/mm3 (0.7-4.5); Mean Corpuscular HGB Conc 32.2 g/dL (31.8-35.4); Mean Corpuscular Hemoglobin 28.5 pg (27.0-31.2); Mean Corpuscular Volume 88.6 fl (81-99); Mean Platelet Volume 9.7 fl (7.4-10.4); Monocytes # 0.8 K/mm3 (0.1-1.0); Monocytes % 6.1 % (1.7-9.3); Neutrophils # 6.9 K/mm3 (1.8-7.8); Neutrophils % 56.7 % (37.0-80.0); Nucleated Red Blood Cells # 0 10^3/uL; Nucleated Red Blood Cells % 0 %; Platelet Count 261 K/mm3 (142-424); Red Blood Count 2.98 M/mm3 (4.20-5.40); Red Cell Distribution Width 15.1 % (11.5-17.5); Red Cell Distribution Width-SD 49.1 fL; White Blood Count 12.2 K/mm3 (4.8-10.8)
[2024-12-12 08:11] LABS: Alanine Aminotransferase 10 U/L (12-78); Albumin Level 3.2 g/dl (3.5-5.0); Albumin/Globulin Ratio 1.1 (1.1-1.8); Alkaline Phosphatase 72 U/L (38-126); Anion Gap 12.3 mEq/L (5-15); Aspartate Amino Transferase 18 U/L (14-36); Bilirubin,Total 0.4 mg/dl (0.2-1.3); Calcium 8.8 mg/dl (8.4-10.2); Carbon Dioxide 21 mmol/L (22.0-30.0); Chloride 109 mmol/L (98-107); Creatinine Clearance Estimated 23 mL/min (50-200); Estimated Glomerular Filt Rate 13 ml/min (>60); GFR (African American) 15 ML/MIN (>60); Globulin 2.8 g/dL (1.3-3.2); Glucose 116 mg/dl (74-100); Magnesium 2.2 mg/dl (1.6-2.3); Potassium 3.3 mmoL/L (3.5-5.1); Sodium 139 mmol/L (136-145)
[2024-12-12 08:23] LABS: Blood Urea Nitrogen 102 mg/dl (7-17)
[2024-12-12 09:10] LABS: Phosphorous 7.1 mg/dl (2.5-4.5)
[2024-12-12] MEDS: ASPIRIN EC 81MG TABLET 81 MG PO (09:14)
[2024-12-12] MEDS: GABAPENTIN 400MG CAPSULE 400 MG PO ×3 (09:14→20:30)
[2024-12-12] MEDS: FUROSEMIDE 100MG/10ML VIAL 80 MG IV ×2 (09:14→15:14)
[2024-12-12] MEDS: HEPARIN SODIUM 5,000 UNIT/ML VIAL 5000 UNIT SUBCUT ×2 (09:15→20:30)
[2024-12-12] MEDS: HYDRALAZINE HCL 25MG TABLET 25 MG PO ×3 (09:15→20:30)
[2024-12-12] MEDS: INSULIN GLARGINE 100 UNITS/ML 3ML FLEXPEN 22 UNIT SUBCUT ×2 (09:16→20:31)
[2024-12-12] MEDS: SODIUM CHLORIDE 0.9% 10ML VIAL 10 ML IV (09:20)
[2024-12-12] MEDS: PANTOPRAZOLE 40MG VIAL 40 MG IV ×2 (09:20→20:30)
[2024-12-12 12:01] LABS: POC Glucose,Bedside 141 (70-110)
[2024-12-12 12:59] VITALS: PULSE 64
[2024-12-12] MEDS: IPRATROPIUM/ALBUTEROL 3 ML NEB IH (12:59)
--- OUTSIDE RECORDS SUMMARY | 2024-12-12 15:34 | XMS_ITS ---
Author Name Auto Generated, Auto Generated Organization [facility] Address [address] [place] [address] Phone [phone] Care Team Providers Care Occupational Rehabilitation Aide Name Role Phone Denis Castillo Unavailable [phone] Functional Status No Results Mental Status No Results Allergies and Intolerances Name Onset Date Reaction Severity Sulfa (Sulfonamide Antibiotics) (Allergy) Fri 17:12:00 EST 2024 moxifloxacin (Allergy) FriAug 26 17:12:00 EST 2 025 Encounters Program Name Primary Diagnosis Admission Date/Time Dis charge Date/Time null FriNovember 27 20:00 :00 EDT 2024 null FriAug 25 19:00 :00 EST 2024Sep 10 19:59:59 EDT 2024 Problems No Known Problems Social History Social History Observation Description Date Smoking Status Never smoked FriAug 26 00:00 :00 EST 2024 Sex Female FriDec 27 00:00 :00 EDT 1950 Reason for Referral
--- OUTSIDE RECORDS SUMMARY | 2024-12-12 15:35 | XMS_ITS ---
Author Organization Unknown Problems Date Problem Result OnSetDate Icd10 SnomedCode Severity 01/13/2024 00:00:00 Falls frequently R29.6 02/16/2024 00:00:00 Hypertension I10 04/12/2024 00:00:00 Chronic kidney disease (CKD) N18.9
--- OUTSIDE RECORDS SUMMARY | 2024-12-12 15:35 | XMS_ITS | Clinical Summary ---
Author Organization [facility] Address [address] [id number] Care Team Providers Care Cafeteria Food Server Name Role Phone SilverAubree livingston Oksana ROSE Primary Care Provider [phone] Allergies Active Allergy Reactions Criticality Noted Date [...] Sign Reading Time Taken Comments Blood Pressure 146/66 12/12/2024 8:37 AM EDT Pulse 65 12/12/2024 8:37 AM EDT Temperature 36.9 C (98.4 F) 12/12/2024 8:37 AM EDT Respiratory Rate 16 12/12/2024 8:37 AM EDT Oxygen Saturation 96% 12/12/2024 8:37 AM EDT 2 LNC - Inhaled Oxygen Concentration - - Weight 82 kg (180 lb 12.8 oz) 10/03/2022 1:11 PM EDT Height 172.7 cm (5' 8 ) 09/18/2022 9:24 AM EDT Body Mass Index 27.49 09/18/2022 9:24 AM EDT Plan of Treatment Upcoming Encounters Date Type Department Care Team (Late st Contact Info) Description 01/14/2025 10:20 AM EDT Office Visit [facility] [address] [place] [address] Elias Lewis MD [address] [place] [phone] Health Maintenance Due Date Last Done Comments [facility]-Bone Density Scan 1950 [facility]-Depression Screening 1950 [facility]-Hepatitis C Screening 1950 [facility]Medicare Annual Wellness (AWV) 1950 [facility]-/Child/Adol SDOH Screenings 1950 [id number] Vaccine (#1) 1953 Diabetes: Dental Exam 1958 [...] to Health Maintenance Insurance MEDICARE Care Teams Cafeteria Food Server Relationship Specialty Start Date End Date Aubree Silver APRN [address] [place] [address] PCP - General 03/01/21
[2024-12-12 15:56] VITALS: PULSE 63; RESP 18; TEMP 36.8; O2SAT 97
[2024-12-12 16:24] LABS: POC Glucose,Bedside 149 (70-110)
[2024-12-12 16:24] LABS: POC Glucose,Bedside 206 (70-110)
[2024-12-12] MEDS: humaLOG 100 UNITS/ML 10ML VIAL (SSI) SUBCUT ×2 (16:33→20:30)
[2024-12-12] MEDS: CEFEPIME HCL 2 GM in 0.9 % SODIUM CHLORIDE 100 ML IV (16:34)
[2024-12-12 20:00] VITALS: BP 154/65; PULSE 64; RESP 16; TEMP 36.8; O2SAT 96
[2024-12-12 20:13] LABS: POC Glucose,Bedside 195 (70-110)
[2024-12-12] MEDS: HYDROCODONE/APAP 5/325 MG TABLET 1 TAB PO (20:49)
--- NOTE | 2024-12-12 21:58 | P.PN_ITS ---
Subjective *Date: 12/12/24 *Time: 22:43 Interval history: Patient doing well, nervous about dialysis. But understands that it is inevitable due to her worsening renal function. Exam Data for Last 24 hours Vital signs and Labs for Last 24 Hours: Temp Pulse Resp BP Pulse Ox O2 Del Method O2 Flow Rate 98.2 F 64 16 154/65 H 96 Room Air 2 12/12/24 20:00 12/12/24 20:00 12/12/24 20:00 12/12/24 20:00 12/12/24 20:00 12/12/24 20:00 12/12/24 17:54 Laboratory Results - last 24 hr 12/12/24 05:03: POC Glucose 99 12/12/24 07:50: WBC 12.2 H, RBC 2.98 L, Hgb 8.5 L, Hct 26.4 L, MCV 88.6, MCH 28.5, MCHC 32.2, RDW 15.1, Plt Count 261, MPV 9.7, Neut % (Auto) 56.7, Lymph % (Auto) 32.0, [place] % (Auto) 6.1, Eos % (Auto) 4.5, Baso % (Auto) 0.3, Neut # (Auto) 6.9, Lymph # (Auto) 3.9, [place] # (Auto) 0.8, Eos # (Auto) 0.6 H, Baso # (Auto) 0.0, Sodium 139, Potassium 3.3 L, Chloride 109 H, Carbon Dioxide 21 L, Anion Gap 12.3, BUN 102 H*, Creatinine 3.50 H, Estimated Creat Clear 23, Estimated GFR 13 L*, Est GFR ( Amer) 15 L*, Glucose 116 H, Calcium 8.8, Phosphorus 7.1 H, Magnesium 2.2, Total Bilirubin 0.4, AST 18, ALT 10 L, Alkaline Phosphatase 72, Total Protein 6.0 L, Albumin 3.2 L, Globulin 2.8, Albumin/Globulin Ratio 1.1 12/12/24 09:17: POC Glucose 149 H 12/12/24 11:52: POC Glucose 141 H 12/12/24 16:03: POC Glucose 206 H 12/12/24 20:01: POC Glucose 195 H I & O for Last 24 hours: Intake & Output 06/06/2312/10/24 12/11/24 12/12/24 23:59 23:59 23:59 23:59 Intake Total 510 / 510 1200 / 1200 900 / 900 Output Total 400 / 400 3250 / 3250 2200 / 2200 1775 / 1775 Balance -400 / -380 -2740 / -2740 -1000 / -1000 -875 / -875 Weight 102.512 kg 105.48 kg 105.823 kg 106.141 kg Microbiology Reports for the Last 24 Hours: Microbiology 12/09/24 15:54 Foot,Right Gram Stain - Final 12/09/24 15:54 Foot,Right Wound Culture - Preliminary Escherichia coli Gram Positive Cocci Gram Positive Cocci#2 Constitutional Constitutional: no acute distress *Routine HEENT Exam Head: Present normocephalic Eye: Present EOMI and PERRL ENT: Present mucous membranes moist *Routine Neck Exam Neck: Present supple; Absent lymphadenopathy *Routine Respiratory Exam Respiratory: Present CTA bilaterally *Routine Cardiovascular Exam Cardiovascular: Present RRR *Routine Abdominal Exam Abdominal: Present soft and normoactive bowel sounds; Absent tenderness *Routine Extremities Exam Extremities: Present edema; Absent cyanosis or clubbing *Routine Skin Exam Skin: Present warm; Absent rash *Routine Neurological Exam Neurological: Present alert and oriented X3 Assessment and Plan *Assessment and plan (1) ESRD (end stage renal disease): Status: Acute Category: Medical Code(s): N18.6 - End stage renal disease (2) Peripheral artery disease: Status: Acute Category: Medical Code(s): I73.9 - Peripheral vascular disease, unspecified (3) Chronic ulcer of left heel: Status: Acute Category: Medical Code(s): L97.429 - Non-pressure chronic ulcer of left heel and midfoot with unspecified severity (4) CHF (congestive heart failure): Status: Acute Category: Medical Code(s): I50.9 - Heart failure, unspecified Plan Michelle Davis is a 73-year-old female presented with shortness of breath and worsening lower extremity edema and was admitted for HFpEF exacerbation in the setting of CKD stage V. #HFpEF exacerbation #ESRD volume overload #Hyper uremia ? Presented with shortness of breath, worsening lower extremity swelling. BNP 4590. Creatinine 3.5, GFR 13. ? ECHO July 2024 revealed normal biventricular systolic, may have slight diastolic dysfunction with increased LV wall thickness. ? While there is mild heart failure, advanced CKD also seems to be big playing a factor in volume overload. At the same time, patient is diuresing well without electrolyte abnormalities. ? Uremia bumped to 102 today, around 60 just 2 weeks ago. Highly concerning for rapidly worsening renal function. Therefore decision was made to transfer patient to higher level facility for dialysis. Elevated BNP could also be sequela of poor clearance from ESRD. ? Patient is currently waitlisted at [facility] in [facility], awaiting bed placement at . ? Increased IV Lasix 80 mg twice daily, started metolazone 5 mg. Net -5L. ? Spoke with Dr. Wiggins, if patient is still here tomorrow and improving he will place tunneled catheter for dialysis for anticipated outpatient dialysis at [facility]. ? Avoid nephrotoxic medications, renally dose medications. #Type 2 diabetes ? Hemoglobin A1c 9.5. ? LDSSI, ACHS glucose checks. ? Continue Lantus 22 units nightly. ? Decrease gabapentin to 200 mg 3 times daily due to ESRD. #PAD #Bilateral diabetic foot ulcers ? Did not seem to be healing well in the setting of severe PAD on arterial Doppler. ESRD precludes catheterization in this time. ? Continue cefepime, wound culture showing E. coli and gram-positive cocci. ? Continue aspirin. #Hypothyroidism ? Continue home levothyroxine 88 mcg. TFT stable. #GERD ? Continue home PPI. Full code DVT prophylaxis: Heparin 5000 units 3 times daily
[2024-12-13] VITALS (12 sets, daily range): BP systolic 136–177; BP diastolic 64–115; PULSE 55–97; RESP 14–22; TEMP 36.6–36.7; O2SAT 90–98; BMI 35.0
--- NOTE | 2024-12-13 05:25 | PC.NURSE ---
Pt AOx4. No significant changes this shift. Spoke with [facility] and provided an update on pt. They stated that they do not have a bed available yet. Pt is currently resting in bed with eyes closed. Respirations even and unlabored. 2L O2. Bed low locked, and call light is in reach.
[2024-12-13] MEDS: IPRATROPIUM/ALBUTEROL 3 ML NEB IH ×2 (06:10→11:31)
[2024-12-13] MEDS: LEVOTHYROXINE 88MCG (0.088MG) TAB 88 MCG PO (06:16)
[2024-12-13 06:57] LABS: POC Glucose,Bedside 70 (70-110)
[2024-12-13 06:57] LABS: POC Glucose,Bedside 103 (70-110)
--- NOTE | 2024-12-13 07:03 | P.CONS_ITS ---
Documented by User: Annemarie Henson APRN 12/13/24 16:41 History of Present Illness *Admission Date: 12/09/24 *History of present illness: Patient is a 73-year-old male with past medical history of CKD stage IV, CHF, diabetes mellitus hypertension hyperlipidemia who presents to the hospital due to shortness of breath and swelling. Patient mentions she has been gaining weight lately she also has bilateral heel wounds right worse than left. Patient otherwise denied active chest pain, nausea vomiting diarrhea constipation dysuria. 12/13/24: -Podiatry Consulted, patient has bilateral heel wounds with right being worse than the left. Wound care has been seeing and dressing patient's wounds over the weekend. Dr. Jonathan Malin MD, Cardiology consulted with patient 12/10/2024, recommending further evaluation and vascular intervention on her feet, Recommending transfer to hospital with vascular surgery that will have inpatient nephrology and dialysis backup services. -Patient was made NPO for Podiatry to see and evaluate her B/L Foot wounds. [facility] Disclaimer: The information contained in this section may have been updated after the patient was seen, as this information can be updated by other users. Medical History (Updated 12/13/24 @ 11:35 by Michelle Pak APRN) Essential hypertension CLL (chronic lymphocytic leukemia) CKD (chronic kidney disease) Type 2 diabetes mellitus with diabetic polyneuropathy Hypertension (HFpEF) heart failure with preserved ejection fraction Peripheral arterial occlusive disease Hyperlipidemia CKD (chronic kidney disease) stage 4, GFR 15-29 ml/min Elevated BUN Callus of foot Edema Hypervolemia Leukocytosis UTI (urinary tract infection) Urinary tract infectious disease Sepsis without septic shock Noncompliance Acute kidney injury superimposed on chronic kidney disease Diabetic foot ulcer Sinusitis Hyperkalemia Urinary tract infection Hyperkalemia High anion gap metabolic acidosis Renal failure Falls frequently Viral URI with cough Skin infection, bacterial Avulsed toenail Ulcer of right great toe due to diabetes mellitus Frequent falls Statin intolerance Hyperlipidemia Bradycardia Syncope and collapse Syncope Falls Neuropathy Osteopenia Onychodystrophy Pain of toe of right foot Fracture of second toe, right, closed Edema of toe Acquired hammer toe Closed rib fracture Fall Hyperglycemia due to type 2 diabetes mellitus Bacteremia due to Klebsiella pneumoniae UTI due to Klebsiella species Gram-negative bacteremia DKA (diabetic ketoacidoses) Hyperglycemia due to type 2 diabetes mellitus CLL (chronic lymphocytic leukemia) History of hypertension Diabetes mellitus Surgical History H/O lithotripsy History of cholecystectomy Family History Other Cancer Congestive heart failure (CHF) Heart disease Lymphoma Social History Smoking Status: Never smoker alcohol intake: never substance use type: denies use current occupational status: retired Travel in the last 8 weeks?: None household members: none housing: house caffeine: Yes Review of Systems Constitutional Constitutional: Reports weakness Eyes Eyes: Denies loss of vision ENT Ears, Nose, Mouth, and Throat: Denies vertigo *Cardiovascular Cardiovascular: Denies syncope *Neurologic Neurologic: Denies loss of vision, Denies syncope, Denies vertigo and Reports weakness Meds Home Medications and Allergies Home Medications ?Medication ?Instructions ?Recorded ?Confirmed ?Type hydralazine 50 mg tablet 50 mg PO TID #90 tabs 12/09/24 Rx aspirin 81 mg tablet,delayed 81 mg PO DAILY #30 tabs 0 11/28/24 12/09/24 Rx release (Adult Aspirin Regimen) hydrocodone 5 mg-acetaminophen 325 1 tab PO Q8HP PRN m oderate pain 11/28/24 12/09/24 Rx mg tablet (scale score 5-6) 10 days #3 0 tabs insulin glargine 100 unit/mL (3 22 unit (0.22 mL) SQ B ID Diabetes 11/28/24 12/09/24 Rx mL) subcutaneous pen #10 mL levothyroxine 88 mcg tablet 88 mcg PO DAILY #30 tabs 0 11/28/24 12/09/24 Rx clonazepam 0.5 mg tablet 0.5 mg PO BIDP PRN Anxiety 0 12/10/24 12/10/24 History insulin lispro 100 unit/mL 0 - 14 unit SQ AC 12/10/24 12/10/24 History subcutaneous pen (Humalog KwikPen (U-100) Insulin) cefepime 2 gram solution for 2 g IV Q24H #0 ea 5 Rx injection furosemide 10 mg/mL injection 80 mg (8 mL) IV BIDL #0 mL 12/13/24 Rx solution gabapentin 100 mg capsule 200 mg (2 x 100 mg) PO TID # 0 caps 12/13/24 Rx isosorbide dinitrate 20 mg tablet 20 mg PO TID #0 tabs 12/13/24 Rx metolazone 2.5 mg tablet 5 mg (2 x 2.5 mg) PO DAILY # 0 tabs 12/13/24 Rx nystatin 100,000 unit/gram topical 1 applic topical QI DP PRN 12/13/24 Rx powder EXCORIATION #0 grams pantoprazole 40 mg tablet,delayed 40 mg PO HS #0 tabs 12/13/24 Rx release vancomycin 1.5 gram/300 mL in 1.5 g (300 mL) IV Q48H # 0 mL 12/13/24 Rx diluent combination IV piggyback New Prescriptions to Start Prescriptions: Allergies Allergy/AdvReac Type Severity Reaction Status Date / Time moxifloxacin Allergy Severe S-ANAPHYLAX Verified 11/17/24 22:20 IS Sulfa (Sulfonamide Allergy Mild NA-NAUSEA/V Verified 11/17/24 22:20 Antibiotics) OMITING atorvastatin AdvReac Severe Other Verified 11/17/24 22:20 Exam (Inpt) Vital signs and Labs for Last 24 Hours: Temp Pulse Resp BP Pulse Ox O2 Del Method O2 Flow Rate 98.0 F 55 L 14 157/67 H 96 Nasal Cannula 2 12/13/24 04:00 12/13/24 06:13 12/13/24 04:00 12/13/24 04:00 12/13/24 06:13 12/13/24 06:31 12/13/24 06:31 Laboratory Results - last 24 hr 12/12/24 07:50: WBC 12.2 H, RBC 2.98 L, Hgb 8.5 L, Hct 26.4 L, MCV 88.6, MCH 28.5, MCHC 32.2, RDW 15.1, Plt Count 261, MPV 9.7, Neut % (Auto) 56.7, Lymph % (Auto) 32.0, [place] % (Auto) 6.1, Eos % (Auto) 4.5, Baso % (Auto) 0.3, Neut # (Auto) 6.9, Lymph # (Auto) 3.9, [place] # (Auto) 0.8, Eos # (Auto) 0.6 H, Baso # (Auto) 0.0, Sodium 139, Potassium 3.3 L, Chloride 109 H, Carbon Dioxide 21 L, Anion Gap 12.3, BUN 102 H*, Creatinine 3.50 H, Estimated Creat Clear 23, E stimated GFR 13 L*, Est GFR ( Amer) 15 L*, Glucose 116 H, Calcium 8.8, P hosphorus 7.1 H, Magnesium 2.2, Total Bilirubin 0.4, AST 18, ALT 10 L, Alkaline Phosphatase 72, Total Protein 6.0 L, Albumin 3.2 L, Globulin 2.8, Albumin/Globulin Ratio 1.1 12/12/24 09:17: POC Glucose 149 H 12/12/24 11:52: POC Glucose 141 H 12/12/24 16:03: POC Glucose 206 H 12/12/24 20:01: POC Glucose 195 H 12/13/24 05:35: POC Glucose 70 12/13/24 06:47: POC Glucose 103 I & O for Labs for Last 24 Hours: Intake & Output 12/10/24 12/11/24 12/12/24 12/13/24 23:59 23:59 23:59 23:59 Intake Total 510 / 510 1200 / 1200 900 / 900 50 / 50 Output Total 3250 / 3250 2200 / 2200 1775 / 1775 1130 / 1130 Balance -2740 / -2740 -1000 / -1000 -875 / -875 -1080 / -1080 Weight 232 lb 8.697 oz 233 lb 4.8 oz 234 lb 231 lb 1.6 oz Microbiology Reports for the Last 24 Hours: Microbiology 12/09/24 15:54 Foot,Right Gram Stain - Final 12/09/24 15:54 Foot,Right Wound Culture - Preliminary Escherichia coli Gram Positive Cocci Gram Positive Cocci#2 Constitutional: Present no acute distress and cooperative Head: Present normocephalic Eye: Present as per HPI Neck: Present trachea midline Respiratory: Present normal respiratory effort and able to speak in complete sentences Cardiac: Present pedal pulses present (B/L DP faintly palpable ); Absent posterior tibial pulses present Comments:: deferred Rectal (female): Present deferred (female): Present deferred Extremities: Present tenderness and edema Comment:: B/L heel tenderness noted, -Right Heel lightly debrided with sterile curette, skin, macerated tissue debrided, brown eschar tissue noted centrally, post debridement measurement 5.0 x 4.5 x 0.1cm (slight malodor noted)scant bleeding noted. -Left heel lightly debrided with sterile curette, skin, macerated tissue post debridement measurement 2.3 x 2.1 x 0.0 cm, scant bleeding noted. -Small blister area that had popped, loose skin noted to her Right dorsal foot lightly debrided with sterile curette, removing scant amount of fibrotic tissue ~ 0.5 x 0.5x 0.0cm, no bleeding noted. Skin: Present warm and wounds Comment:: B/L foot DFU R>L. Neuro: Present oriented x 3 Comment:: Patient's feet and legs have a slight spontaneous jerking tremor while holding up legs for foot debridement. Patient denies RLS. Ankle: bilateral: swelling (1+ edema, patient states improvement ) and bilateral: wound (B/L heel wounds R>L ) Feet/Toes: bilateral: hammer toe and bilateral: wound (B/L heel ulcers, Right dorsal foot ulcer. ) Feet Bottom: 2 1. Right heel DFU, lightly debrided today with curette, painted with betadine, and dressed with Allevyn Life polymem. 2. Left heel DFU, lightly debrided today with curette, painted with betadine, and dressed with Allevyn Life polymem. Feet Top: 2 1. Right dorsal foot blister, debrided with curette lightly, painted with betadine and covered with a Bordered gauze adhesive dressing. Inspection: Present foot deformity deformity: Present hammer toes, infection and ulceration Pulses: L dorsalis pedis pulse: diminished (faintly palpable ), R dorsalis pedis pulse: diminished (faintly palpable ), L posterior tibial pulse: diminished (Absent ) and R posterior tibial pulse: diminished (Absent ) CFT: dim: CFT Results Labs 12/13/24 08:15 12/13/24 08:15 Labs: Abnormal lab results 12/12/24 12/12/24 12/12/24 Range/Units 07:50 09:17 11:52 WBC 12.2 H (4.8-10.8) K/mm3 RBC 2.98 L (4.20-5.40) M/mm3 Hgb 8.5 L (12.2-16.2) g/dL Hct 26.4 L (37.0-47.0) % Eos # (Auto) 0.6 H (0.0-0.4) Kmm3 Potassium 3.3 L (3.5-5.1) mmoL/L Chloride 109 H (98-107) mmol/L Carbon Dioxide 21 L (22.0-30.0) mmol/L BUN 102 H* (7-17) mg/dl Creatinine 3.50 H (0.52-1.04) mg/dl Estimated GFR 13 L* (>60) ml/min Est GFR ( Amer) 15 L* (>60) ML/MIN Glucose 116 H (74-100) mg/dl POC Glucose 149 H 141 H (70-110) Phosphorus 7.1 H (2.5-4.5) mg/dl ALT 10 L (12-78) U/L Total Protein 6.0 L (6.3-8.2) g/dl Albumin 3.2 L (3.5-5.0) g/dl 12/12/24 12/12/24 Range/Units 16:03 20:01 WBC (4.8-10.8) K/mm3 RBC (4.20-5.40) M/mm3 Hgb (12.2-16.2) g/dL Hct (37.0-47.0) % Eos # (Auto) (0.0-0.4) Kmm3 Potassium (3.5-5.1) mmoL/L Chloride (98-107) mmol/L Carbon Dioxide (22.0-30.0) mmol/L BUN (7-17) mg/dl Creatinine (0.52-1.04) mg/dl Estimated GFR (>60) ml/min Est GFR ( Amer) (>60) ML/MIN Glucose (74-100) mg/dl POC Glucose 206 H 195 H (70-110) Phosphorus (2.5-4.5) mg/dl ALT (12-78) U/L Total Protein (6.3-8.2) g/dl Albumin (3.5-5.0) g/dl H & H 12/09/24 12/10/2412/10/25 Range/Units 15:40 05:25 19:00 Hgb 8.0 L 6.9 L 8.1 L D (12.2-16.2) g/dL Hct 25.2 L 21.6 L 24.8 L (37.0-47.0) % 12/11/24 12/12/24 Range/Units 09:30 07:50 Hgb 8.5 L 8.5 L (12.2-16.2) g/dL Hct 26.1 L 26.4 L (37.0-47.0) % All other labs normal. Diagnostic results Ankle/Foot CT: report reviewed and image reviewed ( ) Assessment and Plan *Assessment and plan (1) 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 Qualifiers: Diabetes mellitus senior living insulin use: with joint terminal attack controller use Qualified Code(s): E11.42 - Type 2 diabetes mellitus with diabetic polyneuropathy; Z79.4 - snf (current) use of insulin Category: Medical Code(s): E11.42 - Type 2 diabetes mellitus with diabetic polyneuropathy (2) Diabetes: Status: Acute Qualifiers: Diabetes mellitus complication detail: with polyneuropathy Diabetes mellitus complication status: with neurologic complications Diabetes mellitus joint terminal attack controller insulin use: with senior living use Diabetes mellitus type: type 2 Q ualified Code(s): E11.42 - Type 2 diabetes mellitus with diabetic polyneuropathy; Z79.4 - snf (current) use of insulin Category: Medical Code(s): E11.9 - Type 2 diabetes mellitus without complications (3) Dystrophia unguium: Status: Acute Category: Medical Code(s): L60.3 - Nail dystrophy (4) Hammertoe: Status: Acute Qualifiers: Laterality: bilateral Qualified Code(s): M20.41 - Other hammer toe(s) (acquired), right foot; M20.42 - Other hammer toe(s) (acquired), left foot Category: Medical Code(s): M20.40 - Other hammer toe(s) (acquired), unspecified foot (5) Diabetic ulcer of left heel associated with diabetes mellitus due to underlying condition, limited to breakdown of skin: Status: Acute Category: Medical Code(s): E08.621 - Diabetes mellitus due to underlying condition with foot ulcer; L97.421 - Non-pressure chronic ulcer of left heel and midfoot limited to breakdown of skin (6) Diabetic ulcer of right heel associated with diabetes mellitus due to underlying condition, limited to breakdown of skin: Status: Acute Category: Medical Code(s): E08.621 - Diabetes mellitus due to underlying condition with foot ulcer; L97.411 - Non-pressure chronic ulcer of right heel and midfoot limited to breakdown of skin (7) Keratosis: Status: Acute Category: Medical Code(s): L57.0 - Actinic keratosis (8) Acute kidney injury: Status: Resolved Category: Medical Code(s): N17.9 - Acute kidney failure, unspecified (9) Skin ulcer of dorsum of foot: Status: Acute Category: Medical Code(s): L97.509 - Non-pressure chronic ulcer of other part of unspecified foot with unspecified severity Plan 12/13/24 12/09/24, CT foot RT wo con, COMPARISON: CR XR FOOT RT MIN 3V 12/09/2024 4:19 PM FINDINGS: Bones/joints: No evidence of osteomyelitis is present. Soft tissues: Diffuse subcutaneous edema is seen extending from the lower leg across the ankle onto both the dorsum and volar portions of the foot. No air is identified and no evidence of abscess is demonstrated. IMPRESSION: Diffuse subcutaneous edema consistent with cellulitis, anasarca, lymphedema or other process. No subcutaneous air or abscess is identified and no evidence of osteomyelitis is present. 12/09/24, CT foot LT wo con, COMPARISON: CR XR FOOT LT MIN 3V 12/09/2024 4:19 PM FINDINGS: Bones/joints: No bony changes to suggest osteomyelitis. Soft tissues: There is infiltrative subcutaneous edema which extends from the lower leg across the ankle onto the dorsum of the foot and inferiorly around the calcaneus. No air is identified. No evidence of abscess is noted. IMPRESSION: Diffuse subcutaneous edema, this could represent cellulitis, anasarca, lymphedema or other process. No air is seen in the soft tissues and no evidence of abscess or definite osteomyelitis identified. B/L heel DFU's: -Patient to be NPO until Podiatry consults and evaluates b/l heel wounds -B/L heels wounds cleaned and lightly debrided with sterile curette, due to poor blood flow did not want to create more trauma to the tissue -B/L heels ulcers and Right dorsal foot ulcer painted with betadine and dressed with Allevyn Life polymem.The Right dorsal foot was painted with betadine and appled a Bordered Gauze adhesive dressing -Dressing to be changed out daily. -Continue cefepime, wound culture showing E. coli and gram-positive cocci. -Keep heels offloaded on pillow while in bed or in chair -No Plans for any surgical procedures per podiatry wounds are stable. -Patient may resume a 1800 calorie diabetic diet for Breakfast -All orders per Dr. Jerez Documented by User: Fidelia Jerez DPM 12/13/24 09:03 [facility] Medical History (Updated 12/13/24 @ 11:35 by Michelle Pak APRN) Essential hypertension CLL (chronic lymphocytic leukemia) CKD (chronic kidney disease) Type 2 diabetes mellitus with diabetic polyneuropathy Hypertension (HFpEF) heart failure with preserved ejection fraction Peripheral arterial occlusive disease Hyperlipidemia CKD (chronic kidney disease) stage 4, GFR 15-29 ml/min Elevated BUN Callus of foot Edema Hypervolemia Leukocytosis UTI (urinary tract infection) Urinary tract infectious disease Sepsis without septic shock Noncompliance Acute kidney injury superimposed on chronic kidney disease Diabetic foot ulcer Sinusitis Hyperkalemia Urinary tract infection Hyperkalemia High anion gap metabolic acidosis Renal failure Falls frequently Viral URI with cough Skin infection, bacterial Avulsed toenail Ulcer of right great toe due to diabetes mellitus Frequent falls Statin intolerance Hyperlipidemia Bradycardia Syncope and collapse Syncope [place] Neuropathy Osteopenia Onychodystrophy Pain of toe of right foot Fracture of second toe, right, closed Edema of toe Acquired hammer toe Closed rib fracture Fall Hyperglycemia due to type 2 diabetes mellitus Bacteremia due to Klebsiella pneumoniae UTI due to Klebsiella species Gram-negative bacteremia DKA (diabetic ketoacidoses) Hyperglycemia due to type 2 diabetes mellitus CLL (chronic lymphocytic leukemia) History of hypertension Diabetes mellitus Surgical History H/O lithotripsy History of cholecystectomy Family History Other Cancer Congestive heart failure (CHF) Heart disease Lymphoma Social History Smoking Status: Never smoker alcohol intake: never substance use type: denies use current occupational status: retired Travel in the last 8 weeks?: None household members: none housing: house caffeine: Yes Meds Home Medications and Allergies Home Medications ?Medication ?Instructions ?Recorded ?Confirmed ?Type hydralazine 50 mg tablet 50 mg PO TID #90 tabs 12/09/24 Rx aspirin 81 mg tablet,delayed 81 mg PO DAILY #30 tabs 0 11/28/24 12/09/24 Rx release (Adult Aspirin Regimen) hydrocodone 5 mg-acetaminophen 325 1 tab PO Q8HP PRN m oderate pain 11/28/24 12/09/24 Rx mg tablet (scale score 5-6) 10 days #3 0 tabs insulin glargine 100 unit/mL (3 22 unit (0.22 mL) SQ B ID Diabetes 11/28/24 12/09/24 Rx mL) subcutaneous pen #10 mL levothyroxine 88 mcg tablet 88 mcg PO DAILY #30 tabs 0 11/28/24 12/09/24 Rx clonazepam 0.5 mg tablet 0.5 mg PO BIDP PRN Anxiety 0 12/10/24 12/10/24 History insulin lispro 100 unit/mL 0 - 14 unit SQ AC 12/10/24 12/10/24 History subcutaneous pen (Humalog KwikPen (U-100) Insulin) cefepime 2 gram solution for 2 g IV Q24H #0 ea 5 Rx injection furosemide 10 mg/mL injection 80 mg (8 mL) IV BIDL #0 mL 12/13/24 Rx solution gabapentin 100 mg capsule 200 mg (2 x 100 mg) PO TID # 0 caps 12/13/24 Rx isosorbide dinitrate 20 mg tablet 20 mg PO TID #0 tabs 12/13/24 Rx metolazone 2.5 mg tablet 5 mg (2 x 2.5 mg) PO DAILY # 0 tabs 12/13/24 Rx nystatin 100,000 unit/gram topical 1 applic topical QI DP PRN 12/13/24 Rx powder EXCORIATION #0 grams pantoprazole 40 mg tablet,delayed 40 mg PO HS #0 tabs 12/13/24 Rx release vancomycin 1.5 gram/300 mL in 1.5 g (300 mL) IV Q48H # 0 mL 12/13/24 Rx diluent combination IV piggyback New Prescriptions to Start Prescriptions: Allergies Allergy/AdvReac Type Severity Reaction Status Date / Time moxifloxacin Allergy Severe S-ANAPHYLAX Verified 11/17/24 22:20 IS Sulfa (Sulfonamide Allergy Mild NA-NAUSEA/V Verified 11/17/24 22:20 Antibiotics) OMITING atorvastatin AdvReac Severe Other Verified 11/17/24 22:20 Exam (Inpt) Feet Bottom: 2 1. Right heel DFU, lightly debrided today with curette, painted with betadine, and dressed with Allevyn Life polymem. 2. Left heel DFU, lightly debrided today with curette, painted with betadine, and dressed with Allevyn Life polymem. Feet Top: 2 1. Right dorsal foot blister, debrided with curette lightly, painted with betadine and covered with a Bordered gauze adhesive dressing. Results Labs 12/13/24 08:15 12/13/24 08:15 Assessment and Plan *Assessment and plan (1) 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 Qualifiers: Diabetes mellitus joint terminal attack controller insulin use: with joint terminal attack controller use Qualified Code(s): E11.42 - Type 2 diabetes mellitus with diabetic polyneuropathy; Z79.4 - buttermaker helper (current) use of insulin Category: Medical Code(s): E11.42 - Type 2 diabetes mellitus with diabetic polyneuropathy (2) Diabetes: Status: Acute Qualifiers: Diabetes mellitus complication detail: with polyneuropathy Diabetes mellitus complication status: with neurologic complications Diabetes mellitus joint terminal attack controller insulin use: with senior living use Diabetes mellitus type: type 2 Q ualified Code(s): E11.42 - Type 2 diabetes mellitus with diabetic polyneuropathy; Z79.4 - snf (current) use of insulin Category: Medical Code(s): E11.9 - Type 2 diabetes mellitus without complications (3) Dystrophia unguium: Status: Acute Category: Medical Code(s): L60.3 - Nail dystrophy (4) Hammertoe: Status: Acute Qualifiers: Laterality: bilateral Qualified Code(s): M20.41 - Other hammer toe(s) (acquired), right foot; M20.42 - Other hammer toe(s) (acquired), left foot Category: Medical Code(s): M20.40 - Other hammer toe(s) (acquired), unspecified foot (5) Diabetic ulcer of left heel associated with diabetes mellitus due to underlying condition, limited to breakdown of skin: Status: Acute Category: Medical Code(s): E08.621 - Diabetes mellitus due to underlying condition with foot ulcer; L97.421 - Non-pressure chronic ulcer of left heel and midfoot limited to breakdown of skin (6) Diabetic ulcer of right heel associated with diabetes mellitus due to underlying condition, limited to breakdown of skin: Status: Acute Category: Medical Code(s): E08.621 - Diabetes mellitus due to underlying condition with foot ulcer; L97.411 - Non-pressure chronic ulcer of right heel and midfoot limited to breakdown of skin (7) Keratosis: Status: Acute Category: Medical Code(s): L57.0 - Actinic keratosis (8) Acute kidney injury: Status: Resolved Category: Medical Code(s): N17.9 - Acute kidney failure, unspecified (9) Skin ulcer of dorsum of foot: Status: Acute Category: Medical Code(s): L97.509 - Non-pressure chronic ulcer of other part of unspecified foot with unspecified severity Plan Imagin10/25/24, CTA FINDINGS: Right lower extremity, flow velocities (cm per second): Common femoral artery: 91 Proximal SFA: 140 Distal SFA: 82 Popliteal: 135 Anterior tibial artery: 59 Posterior tibial artery: 77 Peroneal: 82 There are triphasic and biphasic waveforms in the common femoral, proximal, and mid femoral arteries. There are monophasic waveforms in the popliteal and tibial vessels. Left lower extremity, flow velocities (cm per second): Common femoral artery: 110 Proximal SFA: 108 Distal SFA: 181 Popliteal: 136 Anterior tibial artery: 76 Posterior tibial artery: No flow visualized Peroneal: 148 Waveforms are monophasic throughout the left lower extremity with no flow visualized in the posterior tibial artery. 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 Monophasic waveforms from the common femoral artery throughout the tibial vessels concerning for a significant inflow lesion. CT angiogram could better characterize these findings. Reviewed, Interpreted and Dictated by Richy Reddy MD. Transcribed by Lesa Jacob. 12/09/24, CT foot RT wo con, COMPARISON: CR XR FOOT RT MIN 3V 12/09/2024 4:19 PM FINDINGS: Bones/joints: No evidence of osteomyelitis is present. Soft tissues: Diffuse subcutaneous edema is seen extending from the lower leg across the ankle onto both the dorsum and volar portions of the foot. No air is identified and no evidence of abscess is demonstrated. IMPRESSION: Diffuse subcutaneous edema consistent with cellulitis, anasarca, lymphedema or other process. No subcutaneous air or abscess is identified and no evidence of osteomyelitis is present. 12/09/24, CT foot LT wo con, COMPARISON: CR XR FOOT LT MIN 3V 12/09/2024 4:19 PM FINDINGS: Bones/joints: No bony changes to suggest osteomyelitis. Soft tissues: There is infiltrative subcutaneous edema which extends from the lower leg across the ankle onto the dorsum of the foot and inferiorly around the calcaneus. No air is identified. No evidence of abscess is noted. IMPRESSION: Diffuse subcutaneous edema, this could represent cellulitis, anasarca, lymphedema or other process. No air is seen in the soft tissues and no evidence of abscess or definite osteomyelitis identified. Labs: 12/13/24: wbc 10.4, hgb 8.1, hct 25.8%, cr 3.4, bun 97, gfr 13, glucose 105, albumin 3.2 Specimens: 12/09/24, Right foot WCx: Escherichia coli, Staphylococcus aureus (MRSA), Enterococcus faecalis MRSA, E faecalis: S to Vanco, Dapto E coli: S to Cefepime, Ceftazidime, Ceftriaxone, Levo, Erta/Meropenem, Doxy, Zosyn B/L heel DFU's: -Patient to be NPO until Podiatry consults and evaluates b/l heel wounds -B/L heels wounds cleaned and lightly debrided with sterile curette, due to poor blood flow did not want to create more trauma to the tissue -B/L heels ulcers and Right dorsal foot ulcer painted with betadine and dressed with Allevyn Life polymem.The Right dorsal foot was painted with betadine and appled a Bordered Gauze adhesive dressing -Dressing to be changed out daily. -Continue cefepime, wound culture showing E. coli and gram-positive cocci. -Keep heels offloaded on pillow while in bed or in chair -No Plans for any surgical procedures per podiatry wounds are stable. -Patient may resume a 1800 calorie diabetic diet for Breakfast -All orders per Dr. Jerez 12/13/24: -Patient seen and evaluated by Podiatry EXTRUSION ENGINEER and myself. -Agree with documentation. -B/L heel pressure DFU, right dorsal foot DFU sharp excisional full thickness gentle debridement with curette (see skin section for measurements). Scant bleeding to left heel, no bleeding to right foot. -Did not want to aggressively debride due to PAD. Reviewed CTA from 10/25/24. -Agree with cardiology rec: transfer to nephrology evaluation for diaylsis and vascular surgery evaluation. -No plans for Podiatry surgery due to PAD and risk of gangrene secondary to trauma/surgical debridement. -Continue daily dsg changes: Allevyn foam to heels and right dorsal foot. -Continue to off load b/l heels, float off pillow, use heel protectors. -Rec IV abx: on Cefepime for E coli. Rec adding Vanco, Dapto for MRSA, E faecalis growth.
[2024-12-13 08:22] LABS: Basophils % 0.3 % (0.1-2.0); Eosinophils # 0.5 Kmm3 (0.0-0.4); Eosinophils % 4.3 % (0.1-12.0); Hematocrit 25.8 % (37.0-47.0); Hemoglobin 8.1 g/dL (12.2-16.2); Immature Granulocytes # 0.03 10^3uL; Immature Granulocytes % 0.3 %; Lymphocytes # 3.1 K/mm3 (0.7-4.5); Lymphocytes % 29.7 % (10-50); Mean Corpuscular HGB Conc 31.4 g/dL (31.8-35.4); Mean Corpuscular Hemoglobin 27.9 pg (27.0-31.2); Mean Platelet Volume 9.5 fl (7.4-10.4); Monocytes # 0.7 K/mm3 (0.1-1.0); Monocytes % 6.5 % (1.7-9.3); Neutrophils # 6.1 K/mm3 (1.8-7.8); Neutrophils % 58.9 % (37.0-80.0); Nucleated Red Blood Cells # 0 10^3/uL; Nucleated Red Blood Cells % 0 %; Platelet Count 236 K/mm3 (142-424); Red Cell Distribution Width 15.3 % (11.5-17.5); Red Cell Distribution Width-SD 49.9 fL; White Blood Count 10.4 K/mm3 (4.8-10.8)
[2024-12-13 08:29] LABS: Albumin Level 3.2 g/dl (3.5-5.0); Chloride 110 mmol/L (98-107); Potassium 3.3 mmoL/L (3.5-5.1)
[2024-12-13 08:32] LABS: Alanine Aminotransferase 11 U/L (12-78); Albumin/Globulin Ratio 1.2 (1.1-1.8); Alkaline Phosphatase 79 U/L (38-126); Aspartate Amino Transferase 13 U/L (14-36); Bilirubin,Total 0.2 mg/dl (0.2-1.3); Calcium 8.5 mg/dl (8.4-10.2); Carbon Dioxide 23 mmol/L (22.0-30.0); Creatinine Clearance Estimated 24 mL/min (50-200); Estimated Glomerular Filt Rate 13 ml/min (>60); GFR (African American) 16 ML/MIN (>60); Globulin 2.7 g/dL (1.3-3.2); Glucose 105 mg/dl (74-100); Total Protein,Serum 5.9 g/dl (6.3-8.2)
[2024-12-13 08:36] LABS: Blood Urea Nitrogen 97 mg/dl (7-17)
[2024-12-13 08:37] LABS: Anion Gap 13.3 mEq/L (5-15); Sodium 143 mmol/L (136-145)
--- NOTE | 2024-12-13 09:02 | P.PN_ITS ---
Subjective *Date: 12/13/24 *Time: 09:02 Medical Exam Vital signs and Labs for Last 24 Hours: Vital Signs Temp Pulse Pulse Resp BP Pulse Ox O2 Del Method 12/13/24 08:00 97.9 F 72 17 177/64 H 96 Nasal Cannula 12/13/24 06:31 Nasal Cannula 12/13/24 06:13 55 L 12/13/24 06:13 58 L 12/13/24 06:13 96 Nasal Cannula 12/13/24 05:00 Nasal Cannula 12/13/24 04:00 98.0 F 58 L 14 157/67 H 98 Nasal Cannula 12/13/24 03:00 Nasal Cannula 12/13/24 01:00 Nasal Cannula 12/12/24 23:00 Nasal Cannula 12/12/24 21:00 Nasal Cannula 12/12/24 20:00 98.2 F 64 16 154/65 H 96 Room Air 12/12/24 20:00 Nasal Cannula 12/12/24 17:54 Nasal Cannula 12/12/24 17:00 Nasal Cannula 12/12/24 15:56 98.2 F 63 18 97 Nasal Cannula 12/12/24 15:00 Nasal Cannula 12/12/24 13:00 Nasal Cannula 12/12/24 12:59 64 12/12/24 12:59 64 12/12/24 11:00 Nasal Cannula O2 Flow Rate 12/13/24 08:00 2 12/13/24 06:31 2 12/13/24 06:13 12/13/24 06:13 12/13/24 06:13 2 12/13/24 05:00 2 12/13/24 04:00 2 12/13/24 03:00 2 12/13/24 01:00 2 12/12/24 23:00 2 12/12/24 21:00 2 12/12/24 20:00 12/12/24 20:00 2 12/12/24 17:54 2 12/12/24 17:00 2 12/12/24 15:56 2 12/12/24 15:00 2 12/12/24 13:00 2 12/12/24 12:59 12/12/24 12:59 12/12/24 11:00 2 Intake and Output 12/12/24 12/13/24 12/13/24 23:59 07:59 15:59 Intake Total 240 / 950 50 / 50 Output Total 1130 / 1130 Balance 240 / -1625 -1080 / -1080 Intake: Intake, Oral Amount 240 / 950 50 / 50 Output: Output, Urine Amount 1130 / 1130 Other: Number of Unmeasured Voids 0 Weight 104.825 kg Patient Weight 12/13/24 23:59 Weight 104.825 kg Laboratory Results - last 24 hr 12/12/24 07:50: Phosphorus 7.1 H 12/12/24 09:17: POC Glucose 149 H 12/12/24 11:52: POC Glucose 141 H 12/12/24 16:03: POC Glucose 206 H 12/12/24 20:01: POC Glucose 195 H 12/13/24 05:35: POC Glucose 70 12/13/24 06:47: POC Glucose 103 12/13/24 08:15: WBC 10.4, RBC 2.90 L, Hgb 8.1 L, Hct 25.8 L, MCV 89.0, MCH 27.9, MCHC 31.4 L, RDW 15.3, Plt Count 236, MPV 9.5, Neut % (Auto) 58.9, Lymph % (Auto) 29.7, [place] % (Auto) 6.5, Eos % (Auto) 4.3, Baso % (Auto) 0.3, Neut # (Auto) 6.1, Lymph # (Auto) 3.1, [place] # (Auto) 0.7, Eos # (Auto) 0.5 H, Baso # (Auto) 0.0, Sodium 143, Potassium 3.3 L, Chloride 110 H, Carbon Dioxide 23, Anion Gap 13.3, BUN 97 H, Creatinine 3.40 H, Estimated Creat Clear 24, Estimated GFR 13 L*, Est GFR ( Amer) 16 L*, Glucose 105 H, Calcium 8.5, Magnesium 2.0, Total Bilirubin 0.2, AST 13 L D, ALT 11 L, Alkaline Phosphatase 79, Total Protein 5.9 L, Albumin 3.2 L, Globulin 2.7, Albumin/Globulin Ratio 1.2 I & O for Labs for Last 24 Hours: Intake & Output 12/10/24 12/11/24 12/12/24 12/13/24 23:59 23:59 23:59 23:59 Intake Total 510 / 510 1200 / 1200 900 / 950 50 / 50 Output Total 3250 / 3250 2200 / 2200 1775 / 2575 1130 / 1130 Balance -2740 / -2740 -1000 / -1000 -875 / -1625 -1080 / -1080 Weight 105.48 kg 105.823 kg 106.141 kg 104.825 kg Microbiology Reports for the Last 24 Hours: Microbiology 12/09/24 15:54 Foot,Right Gram Stain - Final 12/09/24 15:54 Foot,Right Wound Culture - Final Escherichia coli Staphylococcus aureus Enterococcus faecalis The patient's infection will respond to the chosen ABx?: Yes (FOOT WOUND E COLI COVERED WITH CEFEPIME, MRSA AND E FAECALIS NOT COVERED.) Is the patient receiving the right drug, dose, and route?: Yes Could a more targeted ABx be ordered?: No How long ABx needed (days)?: 14
[2024-12-13] MEDS: GABAPENTIN 100MG CAPSULE 200 MG PO ×2 (10:40→14:57)
[2024-12-13] MEDS: HYDRALAZINE HCL 25MG TABLET 25 MG PO ×2 (10:41→14:57)
[2024-12-13] MEDS: FUROSEMIDE 100MG/10ML VIAL 80 MG IV ×2 (10:41→15:42)
[2024-12-13] MEDS: metOLazone 2.5MG TABLET 5 MG PO (10:41)
[2024-12-13] MEDS: ASPIRIN EC 81MG TABLET 81 MG PO (10:41)
--- NOTE | 2024-12-13 10:51 | IR_ITS ---
APPROVED REPORT Patient Location: Inpatient Housing Grant Analyst: PAUL Phelps RT (R) PROCEDURES Placement of permanent hemodyalysis tunnel catheter into the right internal jugular vein INDICATION Acute on chronic renal failure, patient requiring hemodialysis. Informed consent was obtained prior to the procedure. TECHNIQUE The right anterior aspect of the neck right anterior chest was sterilely prepped and draped. 1% lidocaine was used to anesthetize the right anterior aspect of the right neck along the sternocleidomastoid triangle. Lidocaine was also used to anesthetize track originating close to the right axilla and extending toward the right sternocleidomastoid triangle. The right internal jugular vein was accessed via the Salinger technique. A scalpel was used to make a cutaneous incision next to the right axilla. A tunnel catheter was then used to advance the dialysis catheter under the subcutaneous tissue and then used to exit at the right internal jugular vein access site. A scalpel was used to make a larger incision at the wire site and the internal jugular access point. 3 dilators were used to upsize the space and venotomy site. A large sheath was then inserted into the internal jugular vein and the dialysis catheter was advanced. The sheath was then peeled away leaving the tunnel catheter inside the internal jugular vein ending just above the right atrium. Following this Dermabond was used to close the incision site at the internal jugular vein access site. The tunnel catheter was sewn into place. Concentrated heparin was used to flush the ports after the catheters had excellent blood return and flushing. Following instillation of heparin the area was sterilely prepped and bandaged and the patient was transferred to the postop holding her stable condition IMPRESSION Successful placement of permanent hemodyalysis tunnel catheter into the right internal jugular vein PLAN 1. Standard postoperative care 2. Hemodialysis per Nephrology Electronically signed by : Talon Wiggnis MD 12/13/2024 14:30:33
[2024-12-13] MEDS: NYSTATIN TOPICAL POWDER 30GM TP (10:52)
--- NOTE | 2024-12-13 11:11 | EXP.CARD.PN ---
Subjective Subjective Date: 12/13/24 Time: 10:00 Interval history: Patient is feeling better from a cardiac stand. She denies any shortness of breath or edema today. She denies any chest pain or pressure. She denies any fever, chills, nausea, vomiting or diarrhea. The patient's renal function has worsened and she is currently awaiting transfer to [facility] or for consideration of dialysis. However the patient remains on a waiting list for both facilities. Her vital signs are stable. Dr. Wiggins has offered to place a tunneled catheter for dialysis since that she has still not been transferred yet. Exam Data for Last 24 hours Vital signs and Labs for Last 24 Hours: Temp Pulse Resp BP Pulse Ox O2 Del Method O2 Flow Rate 97.9 F 72 17 177/64 H 96 Nasal Cannula 2 12/13/24 08:00 12/13/24 08:00 12/13/24 08:00 12/13/24 08:00 12/13/24 08:00 12/13/24 09:07 12/13/24 09:07 Laboratory Results - last 24 hr 12/12/24 09:17: POC Glucose 149 H 12/12/24 11:52: POC Glucose 141 H 12/12/24 16:03: POC Glucose 206 H 12/12/24 20:01: POC Glucose 195 H 12/13/24 05:35: POC Glucose 70 12/13/24 06:47: POC Glucose 103 12/13/24 08:15: WBC 10.4, RBC 2.90 L, Hgb 8.1 L, Hct 25.8 L, MCV 89.0, MCH 27.9, MCHC 31.4 L, RDW 15.3, Plt Count 236, MPV 9.5, Neut % (Auto) 58.9, Lymph % (Auto) 29.7, [place] % (Auto) 6.5, Eos % (Auto) 4.3, Baso % (Auto) 0.3, Neut # (Auto) 6.1, Lymph # (Auto) 3.1, [place] # (Auto) 0.7, Eos # (Auto) 0.5 H, Baso # (Auto) 0.0, Sodium 143, Potassium 3.3 L, Chloride 110 H, Carbon Dioxide 23, Anion Gap 13.3, BUN 97 H, Creatinine 3.40 H, Estimated Creat Clear 24, Estimated GFR 13 L*, Est GFR ( Amer) 16 L*, Glucose 105 H, Calcium 8.5, Magnesium 2.0, Total Bilirubin 0.2, AST 13 L D, ALT 11 L, Alkaline Phosphatase 79, Total Protein 5.9 L, Albumin 3.2 L, Globulin 2.7, Albumin/Globulin Ratio 1.2 I & O for Last 24 hours: Intake & Output 12/10/24 12/11/24 12/12/24 12/13/24 23:59 23:59 23:59 23:59 Intake Total 510 / 510 1200 / 1200 900 / 950 50 / 50 Output Total 3250 / 3250 2200 / 2200 1775 / 2575 1130 / 1130 Balance -2740 / -2740 -1000 / -1000 -875 / -1625 -1080 / -1080 Weight 232 lb 8.697 oz 233 lb 4.8 oz 234 lb 231 lb 1.6 oz Microbiology Reports for the Last 24 Hours: Microbiology 12/09/24 15:54 Foot,Right Gram Stain - Final 12/09/24 15:54 Foot,Right Wound Culture - Final Escherichia coli Staphylococcus aureus Enterococcus faecalis Constitutional Constitutional: no acute distress and cooperative *Routine HEENT Exam Eye: Present PERRL *Routine Respiratory Exam Respiratory: Present CTA bilaterally; Absent accessory muscle use, wheezes or crackles *Routine Cardiovascular Exam Cardiovascular: Present RRR, Normal S1 and Normal S2; Absent murmur, gallop or rubs *Routine Abdominal Exam Abdominal: Present soft; Absent tenderness *Routine Extremities Exam Extremities: Present edema and pulses intact; Absent cyanosis *Routine Skin Exam Skin: Present intact; Absent erythema or wounds *Routine Neurological Exam Neurological: Present alert and oriented X3 Routine Psychiatric Exam Psychiatric: Present cooperative Progress Note: A&P Assessment and plan (1) (HFpEF) heart failure with preserved ejection fraction: Status: Acute (2) CKD (chronic kidney disease) stage 4, GFR 15-29 ml/min: Status: Acute (3) 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 (4) Essential hypertension: Status: Chronic (5) CLL (chronic lymphocytic leukemia): Status: Chronic (6) Hypertension: Status: Chronic (7) Hyperlipidemia: Status: Chronic (8) Peripheral arterial occlusive disease: Status: Chronic (9) Elevated BUN: Status: Acute Assessment and Plan Assessment and Plan for All Diagnoses:: Plan: 1. The patient was admitted to the hospital for acute on chronic HFpEF. She has been diuresed with IV Lasix over the weekend. Her symptoms have improved. But her creatinine remains elevated at 3.4. Her GFR is 13. Continue with diuresis at this time with IV Lasix and oral metolazone. 2. The patient continues to have worsening renal function. She is currently awaiting transfer to or for consideration of dialysis. She has been accepted at both facilities but no beds are currently available. 3. While awaiting transfer we can place a tunneled dialysis catheter today in preparation for dialysis. I had a long discussion with the patient about placement of a tunneled catheter. We have discussed the risks and benefits of placing the catheter. The patient verbalizes understanding and is agreeable in proceeding with the procedure. 4. Following placement of the tunneled dialysis catheter we will await transfer to or . If no bed becomes available then we can consider trying to see if we can get her evaluated by nephrology on an outpatient basis this week to begin dialysis as an outpatient if transfer is not achieved. 5. Her blood pressure is slightly elevated. Continue hydralazine. Start Isordil 20 mg 3 times daily for better blood pressure control. 6. Her LDL goal is less than 55. Her LDL is 140. She is intolerant to Lipitor. Recommend starting Crestor as an outpatient. This is not formulary in the hospital. 7. The patient has history of PAD. This is currently stable. 8. She is diabetic. Will defer management of this to the hospitalist. 9. No further recommendations at this time from a cardiac standpoint. Please contact cardiology if any other cardiology issues arise throughout her hospitalization. Thank you for the opportunity to help participate in the care of this patient. All recommendations and orders are per Dr. Malin.
--- NOTE | 2024-12-13 13:03 | EXP.DC.SUM ---
General Admission date:: 12/09/24 Discharge date: 12/13/24 HPI HPI HPI: Patient is a 73-year-old male with past medical history of CKD stage IV, CHF, diabetes mellitus hypertension hyperlipidemia who presents to the hospital due to shortness of breath and swelling. Patient mentions she has been gaining weight lately she also has bilateral heel wounds right worse than left. Patient otherwise denied active chest pain, nausea vomiting diarrhea constipation dysuria. 12/13/24: -Podiatry Consulted, patient has bilateral heel wounds with right being worse than the left. Wound care has been seeing and dressing patient's wounds over the weekend. Dr. Jonathan Malin MD, Cardiology consulted with patient 12/10/2024, recommending further evaluation and vascular intervention on her feet, Recommending transfer to hospital with vascular surgery that will have inpatient nephrology and dialysis backup services. -Patient was made NPO for Podiatry to see and evaluate her B/L Foot wounds. Hospital Course Hospital Course Hospital Course: Michelle Davis is a 73-year-old female presented with shortness of breath and worsening lower extremity edema and was admitted for HFpEF exacerbation in the setting of CKD stage V. Failure to improve her volume overload even with good diuresis. BUN continuing to elevate. At this time it is deemed necessary to transfer patient for evaluation by nephrology and consideration for initiation of dialysis for volume overload and uremia. Cardiology assisted with care during management. Problems addressed as follows: #HFpEF exacerbation #ESRD volume overload #Hyper uremia ? Presented with shortness of breath, worsening lower extremity swelling. BNP 4590. Creatinine 3.5, GFR 13. ECHO July 2024 revealed normal biventricular systolic, may have slight diastolic dysfunction with increased LV wall thickness. While there is mild heart failure, advanced CKD also seems to be big playing a factor in volume overload. At the same time, patient is diuresing well without electrolyte abnormalities. Uremia has gradually increased over the past 2 months. It is gone from the mid 40s to a little over 100. Highly concerning for worsening renal function. Decision made to reach out to facilities for transfer for nephrology and consideration of dialysis. Discussed case with cardiology, placed dialysis catheter on morning of discharge. Patient was waitlisted at and [facility]. Contacted [facility], they graciously accepted patient for further care. Has continued to make urine and be negative at least 1 L a day on Lasix 80 mg IV twice daily and metolazone 5 mg daily. #Type 2 diabetes ? Hemoglobin A1c 9.5 on admission. Treated with sliding scale insulin and fingersticks ACHS. Continuing Lantus 22 units nightly. Morning glucose of 105 on day of discharge. Gabapentin was decreased to 200 mg 3 times a day due to her end-stage renal disease. #PAD #Bilateral diabetic foot ulcers ? Did not seem to be healing well in the setting of severe PAD on arterial Doppler. ESRD precludes catheterization in this time. Wounds present on admission. Podiatry was consulted. Appears to have bilateral heel pressure diabetic foot ulcers. Debridement performed by podiatry. Wound cultures growing E. coli, MRSA, E faecalis. Recommend continuing cefepime for 14 days to cover E. coli. 2 g once daily renally dosed. Also recommend vancomycin to complete 14 days of therapy for MRSA any faecalis. Last day of antibiotics would be 12/22 -Podiatry additionally continues daily dressing changes: Allevyn foam to heels and right dorsal foot. -Continue to off load b/l heels, float off pillow, use heel protectors. #CLL -Complicates all aspects of her care. Patient relatively stable. White count 10.4, hemoglobin 8.1. Anemia related to her underlying chronic blood dyscrasia. Uric acid has been elevated in the past. No signs of gout. No signs of tumor lysis syndrome. Has not been under any treatment for this condition and only monitored. No indication for treatment at this time. #Hypothyroidism: Continue home levothyroxine 88 mcg. TSH 3.9 this admission. #GERD: Continue home PPI. Patient stable to discharge to higher level of care for management of her renal failure. Dialysis catheter placed on morning of discharge (12/13/2024). Appreciate [facility]'s assistance in care of this patient. Patient was from [facility] and can return back to that facility at time of discharge. Total time spent on discharge 42 minutes in counseling, documentation, chart review, and direct care with patient. Exam Data for Last 24 hours Vital signs and Labs for Last 24 Hours: Temp Pulse Resp BP Pulse Ox O2 Del Method O2 Flow Rate 97.9 F 70 17 177/64 H 96 Nasal Cannula 2 12/13/24 08:00 12/13/24 11:31 12/13/24 08:00 12/13/24 08:00 12/13/24 08:00 12/13/24 11:10 12/13/24 11:10 Laboratory Results - last 24 hr 12/12/24 09:17: POC Glucose 149 H 12/12/24 16:03: POC Glucose 206 H 12/12/24 20:01: POC Glucose 195 H 12/13/24 05:35: POC Glucose 70 12/13/24 06:47: POC Glucose 103 12/13/24 08:15: WBC 10.4, RBC 2.90 L, Hgb 8.1 L, Hct 25.8 L, MCV 89.0, MCH 27.9, MCHC 31.4 L, RDW 15.3, Plt Count 236, MPV 9.5, Neut % (Auto) 58.9, Lymph % (Auto) 29.7, [place] % (Auto) 6.5, Eos % (Auto) 4.3, Baso % (Auto) 0.3, Neut # (Auto) 6.1, Lymph # (Auto) 3.1, [place] # (Auto) 0.7, Eos # (Auto) 0.5 H, Baso # (Auto) 0.0, Sodium 143, Potassium 3.3 L, Chloride 110 H, Carbon Dioxide 23, Anion Gap 13.3, BUN 97 H, Creatinine 3.40 H, Estimated Creat Clear 24, Estimated GFR 13 L*, Est GFR ( Amer) 16 L*, Glucose 105 H, Calcium 8.5, Magnesium 2.0, Total Bilirubin 0.2, AST 13 L D, ALT 11 L, Alkaline Phosphatase 79, Total Protein 5.9 L, Albumin 3.2 L, Globulin 2.7, Albumin/Globulin Ratio 1.2 I & O for Last 24 hours: Intake & Output 12/10/24 12/11/24 12/12/24 12/13/24 23:59 23:59 23:59 23:59 Intake Total 510 / 510 1200 / 1200 900 / 950 50 / 50 Output Total 3250 / 3250 2200 / 2200 1775 / 2575 1130 / 1130 Balance -2740 / -2740 -1000 / -1000 -875 / -1625 -1080 / -1080 Weight 105.48 kg 105.823 kg 106.141 kg 104.825 kg Microbiology Reports for the Last 24 Hours: Microbiology 12/09/24 15:54 Foot,Right Gram Stain - Final 12/09/24 15:54 Foot,Right Wound Culture - Final Escherichia coli Staphylococcus aureus Enterococcus faecalis Constitutional Constitutional: mild distress, obese, chronically ill appearing and cooperative *Routine HEENT Exam Head: Present normocephalic Eye: Present EOMI and PERRL ENT: Present mucous membranes moist *Routine Neck Exam Neck: Present supple; Absent lymphadenopathy *Routine Respiratory Exam Respiratory: Present crackles; Absent respiratory distress, rhonchi, stridor or wheezes *Routine Cardiovascular Exam Cardiovascular: Present RRR *Routine Abdominal Exam Abdominal: Present soft and normoactive bowel sounds; Absent tenderness *Routine Rectal Exam Patient deferred: visual exam *Routine Exam Patient deferred: external exam *Routine Extremities Exam Extremities: Present edema (anasarca; 3+ to lower abdomen); Absent cyanosis or clubbing *Routine Skin Exam Skin: Present pallor and warm; Absent intact or rash Comments: Wounds on her heels. Erythema improving. *Routine Neurological Exam Neurological: Present alert, oriented X3, sensory deficit (Decree sensation in feet) and moving all extremities; Absent altered mental status Results Data Completed and Pending Labs on day of discharge: Labs from last 24 hours 12/13/24 12/13/24 12/13/24 08:15 06:47 05:35 WBC 10.4 RBC 2.90 L Hgb 8.1 L Hct 25.8 L MCV 89.0 MCH 27.9 MCHC 31.4 L RDW 15.3 Plt Count 236 MPV 9.5 Neut % (Auto) 58.9 Lymph % (Auto) 29.7 [place] % (Auto) 6.5 Eos % (Auto) 4.3 Baso % (Auto) 0.3 Neut # (Auto) 6.1 Lymph # (Auto) 3.1 [place] # (Auto) 0.7 Eos # (Auto) 0.5 H Baso # (Auto) 0.0 Sodium 143 Potassium 3.3 L Chloride 110 H Carbon Dioxide 23 Anion Gap 13.3 BUN 97 H Creatinine 3.40 H Estimated Creat Clear 24 Estimated GFR 13 L* Est GFR ( Amer) 16 L* Glucose 105 H POC Glucose 103 70 Calcium 8.5 Magnesium 2.0 Total Bilirubin 0.2 AST 13 L D ALT 11 L Alkaline Phosphatase 79 Total Protein 5.9 L Albumin 3.2 L Globulin 2.7 Albumin/Globulin Ratio 1.2 12/12/24 12/12/24 12/12/24 20:01 16:03 09:17 WBC RBC Hgb Hct MCV MCH MCHC RDW Plt Count MPV Neut % (Auto) Lymph % (Auto) [place] % (Auto) Eos % (Auto) Baso % (Auto) Neut # (Auto) Lymph # (Auto) [place] # (Auto) Eos # (Auto) Baso # (Auto) Sodium Potassium Chloride Carbon Dioxide Anion Gap BUN Creatinine Estimated Creat Clear Estimated GFR Est GFR ( Amer) Glucose POC Glucose 195 H 206 H 149 H Calcium Magnesium Total Bilirubin AST ALT Alkaline Phosphatase Total Protein Albumin Globulin Albumin/Globulin Ratio Preliminary micro results at discharge 12/09/24 16:46 Blood Culture - Preliminary Blood NO GROWTH AFTER 48 HOURS 12/09/24 16:46 Blood Culture - Preliminary Blood NO GROWTH AFTER 48 HOURS DS: Diagnosis Discharge Diagnosis (1) (HFpEF) heart failure with preserved ejection fraction: Status: Acute Code(s): I50.30 - Unspecified diastolic (congestive) heart failure Qualifiers: Heart failure chronicity: acute on chronic Qualified Code(s): I50.33 - Acute on chronic diastolic (congestive) heart failure (2) CKD (chronic kidney disease) stage 4, GFR 15-29 ml/min: Status: Acute Code(s): N18.4 - Chronic kidney disease, stage 4 (severe) (3) 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 Code(s): E11.42 - Type 2 diabetes mellitus with diabetic polyneuropathy Qualifiers: Diabetes mellitus halfway insulin use: with halfway use Qualified Code(s): E11.42 - Type 2 diabetes mellitus with diabetic polyneuropathy; Z79.4 - correction (current) use of insulin (4) Essential hypertension: Status: Chronic Code(s): I10 - Essential (primary) hypertension (5) CLL (chronic lymphocytic leukemia): Status: Chronic Code(s): C91.10 - Chronic lymphocytic leukemia of B-cell type not having achieved remission (6) Hypertension: Status: Chronic Code(s): I10 - Essential (primary) hypertension Qualifiers: Hypertension type: primary hypertension Qualified Code(s): I10 - Essential (primary) hypertension (7) Hyperlipidemia: Status: Chronic Code(s): E78.5 - Hyperlipidemia, unspecified (8) Peripheral arterial occlusive disease: Status: Chronic Code(s): I77.9 - Disorder of arteries and arterioles, unspecified (9) Elevated BUN: Status: Acute Code(s): R79.9 - Abnormal finding of blood chemistry, unspecified (10) ESRD (end stage renal disease): Status: Acute Code(s): N18.6 - End stage renal disease (11) Skin ulcer of dorsum of foot: Status: Acute Code(s): L97.509 - Non-pressure chronic ulcer of other part of unspecified foot with unspecified severity (12) Peripheral artery disease: Status: Acute Code(s): I73.9 - Peripheral vascular disease, unspecified (13) Diabetic ulcer of right heel associated with diabetes mellitus due to underlying condition, limited to breakdown of skin: Status: Acute Code(s): E08.621 - Diabetes mellitus due to underlying condition with foot ulcer; L97.411 - Non-pressure chronic ulcer of right heel and midfoot limited to breakdown of skin (14) Diabetic ulcer of left heel associated with diabetes mellitus due to underlying condition, limited to breakdown of skin: Status: Acute Code(s): E08.621 - Diabetes mellitus due to underlying condition with foot ulcer; L97.421 - Non-pressure chronic ulcer of left heel and midfoot limited to breakdown of skin Meds Home Medications and Allergies Home Medications ?Medication ?Instructions ?Recorded ?Confirmed ?Type hydralazine 50 mg tablet 50 mg PO TID #90 tabs 10/20/24 12/09/24 Rx aspirin 81 mg tablet,delayed 81 mg PO DAILY #30 tabs 11/28/24 12/09/24 Rx release (Adult Aspirin Regimen) hydrocodone 5 mg-acetaminophen 325 1 tab PO Q8HP PRN moderate pain 11/28/24 12/09/24 Rx mg tablet (scale score 5-6) 10 days #30 tabs insulin glargine 100 unit/mL (3 22 unit (0.22 mL) SQ BID Diabetes 11/28/24 12/09/24 Rx mL) subcutaneous pen #10 mL levothyroxine 88 mcg tablet 88 mcg PO DAILY #30 tabs 11/28/24 12/09/24 Rx clonazepam 0.5 mg tablet 0.5 mg PO BIDP PRN Anxiety 12/10/24 12/10/24 History insulin lispro 100 unit/mL 0 - 14 unit SQ AC 12/10/24 12/10/24 History subcutaneous pen (Humalog KwikPen (U-100) Insulin) cefepime 2 gram solution for 2 g IV Q24H #0 ea 12/13/24 Rx injection furosemide 10 mg/mL injection 80 mg (8 mL) IV BIDL #0 mL 12/13/24 Rx solution gabapentin 100 mg capsule 200 mg (2 x 100 mg) PO TID #0 caps 12/13/24 Rx isosorbide dinitrate 20 mg tablet 20 mg PO TID #0 tabs 12/13/24 Rx metolazone 2.5 mg tablet 5 mg (2 x 2.5 mg) PO DAILY #0 tabs 12/13/24 Rx nystatin 100,000 unit/gram topical 1 applic topical QIDP PRN 12/13/24 Rx powder EXCORIATION #0 grams pantoprazole 40 mg tablet,delayed 40 mg PO HS #0 tabs 12/13/24 Rx release vancomycin 1.5 gram/300 mL in 1.5 g (300 mL) IV Q48H #0 mL 12/13/24 Rx diluent combination IV piggyback New Prescriptions to Start Prescriptions: Allergies Allergy/AdvReac Type Severity Reaction Status Date / Time moxifloxacin Allergy Severe S-ANAPHYLAX Verified 11/17/24 22:20 IS Sulfa (Sulfonamide Allergy Mild NA-NAUSEA/V Verified 11/17/24 22:20 Antibiotics) OMITING atorvastatin AdvReac Severe Other Verified 11/17/24 22:20 Discharge Plan Disposition Patient Disposition: Xfer Short-Term Hosp Condition: Fair Discharge Order Discharge Orders: Discharge Order (Routine); Ordered 12/13/24 Ordered By: Stef Paulino Follow up Plan Follow up with: Talon Wiggins MD [Staff Physician, Cardiology] - Enter time for follow up Rashawn Cook MD [Primary Care Provider, Internal Medicine] - Enter time for follow up Fidelia Jerez DPM [Staff Physician, Podiatry] - Enter time for follow up Prescriptions/Medication Reconciliation: New cefepime 2 gram Recon Soln 2 g IV Q24H Qty: 0 0RF metolazone 2.5 mg Tablet 5 mg PO DAILY Qty: 0 0RF furosemide 10 mg/mL Solution 80 mg IV BIDL Qty: 0 0RF isosorbide dinitrate 20 mg Tablet 20 mg PO TID Qty: 0 0RF gabapentin 100 mg Capsule 200 mg PO TID Qty: 0 0RF vancomycin-diluent combo no.1 1.5 gram/300 mL Piggyback 1.5 g IV Q48H Qty: 0 0RF pantoprazole 40 mg Tablet,Delayed Release (Dr/Ec) 40 mg PO HS Qty: 0 0RF nystatin 100,000 unit/gram Powder 1 applic topical QIDP PRN (Reason: EXCORIATION) Qty: 0 0RF Continued hydralazine 50 mg tablet 50 mg PO TID Qty: 90 2RF hydrocodone-acetaminophen 5-325 mg Tablet 1 tab PO Q8HP PRN (Reason: moderate pain (scale score 5-6)) 10 Days Qty: 30 0RF aspirin [Adult Aspirin Regimen] 81 mg tablet,delayed release (DR/EC) 81 mg PO DAILY Qty: 30 2RF levothyroxine 88 mcg tablet 88 mcg PO DAILY Qty: 30 0RF insulin glargine 100 unit/mL (3 mL) insulin pen 22 unit SQ BID Qty: 10 10RF clonazepam 0.5 mg tablet 0.5 mg PO BIDP PRN (Reason: Anxiety) Patient Comments: TAKE 1 TABLET BY MOUTH 2 TIMES A DAY NEEDED FOR anxiety insulin lispro [Humalog KwikPen Insulin] 100 unit/mL insulin pen 0 - 14 unit SQ AC Discontinued nifedipine 90 mg tablet extended release 90 mg PO DAILY Qty: 30 2RF gabapentin 400 mg capsule 400 mg PO TID Qty: 90 0RF bumetanide 1 mg tablet 4 mg PO BIDL 30 Days Qty: 240 0RF Problem Reconciliation Problems Reviewed?: Yes Patient Discharge Instructions ACTIVITY: Continue current activity DIET: continue same diet Patient Instructions: DI for Kidney Failure, DI for Diabetic Foot Ulcer, DI for Dependent Edema, Stop Light Heart Failure Print Language: Kosovan Providers Primary Care Provider: Rashawn Cook Admit Provider: Stef Paulino Attending Provider: Stef Paulino
[2024-12-13] MEDS: 0.9 % SODIUM CHLORIDE 1000ML 1,000 ML 25 ML IV (13:33)
[2024-12-13] MEDS: CEFAZOLIN SODIUM 1 GM in 0.9 % SODIUM CHLORIDE 50 ML IV (13:34)
[2024-12-13] MEDS: LIDOCAINE 1% W/EPI 1:100,000 20ML VIAL 20 ML SQ (13:34)
[2024-12-13] MEDS: HEPARIN SODIUM 5,000 UNIT/ML VIAL 5000 UNIT SUBCUT (13:35)
[2024-12-13] MEDS: FENTANYL 100MCG/2ML VIAL 50 MCG IV (13:48)
[2024-12-13] MEDS: MIDAZOLAM HCL 1MG/ML 5ML VIAL 1 MG IV ×2 (13:48→14:10)
--- NOTE | 2024-12-13 14:08 | PC.NURSE ---
Report called to emeka at [facility]. Attempted to call son to update with plan of care, no answer, called Janet on contact list, no answer. Will call again
[2024-12-13] MEDS: FENTANYL 100MCG/2ML VIAL 25 MCG IV (14:10)
[2024-12-13] MEDS: ISOSORBIDE DINITRATE 20 MG TABLET PO (14:57)
[2024-12-13] MEDS: HYDROCODONE/APAP 5/325 MG TABLET 1 TAB PO (15:40)
[2024-12-13] MEDS: humaLOG 100 UNITS/ML 10ML VIAL (SSI) SUBCUT (15:54)
[2024-12-13] MEDS: CEFEPIME HCL 2 GM in 0.9 % SODIUM CHLORIDE 100 ML IV (15:55)
[2024-12-13 16:23] LABS: POC Glucose,Bedside 214 (70-110)
[2024-12-13 16:23] LABS: POC Glucose,Bedside 159 (70-110)
== END 2024-12-13 18:05 | disposition short-term general hospital (02) ==
LOC: ER 18:49 → 2ND 19:33
PROVIDERS: Internal Medicine; Student in an Organized Health Care Education/Training Program; Admitting Provider Internal Medicine Adolescent Medicine; Emergency Provider Emergency Medicine; PCP Internal Medicine Adolescent Medicine; Visit Provider Internal Medicine Adolescent Medicine
PROC: 0JH63XZ Insertion of Tunneled Vascular Access Device into Chest Subcutaneous Tissue and Fascia, Percutaneous Approach (ICD-10-PCS; principal; 2024-12-13 11:05)
DX: I13.2 Hypertensive heart and chronic kidney disease with heart failure and with stage 5 chronic kidney disease, or end stage renal disease (principal); I50.33 Acute on chronic diastolic (congestive) heart failure; N18.6 End stage renal disease; C91.10 Chronic lymphocytic leukemia of B-cell type not having achieved remission; L97.421 Non-pressure chronic ulcer of left heel and midfoot limited to breakdown of skin; L97.411 Non-pressure chronic ulcer of right heel and midfoot limited to breakdown of skin; N17.9 Acute kidney failure, unspecified; E11.22 Type 2 diabetes mellitus with diabetic chronic kidney disease; E78.5 Hyperlipidemia, unspecified; E11.621 Type 2 diabetes mellitus with foot ulcer; E11.51 Type 2 diabetes mellitus with diabetic peripheral angiopathy without gangrene; E03.9 Hypothyroidism, unspecified; K21.9 Gastro-esophageal reflux disease without esophagitis; D63.1 Anemia in chronic kidney disease; Z79.4 Long term (current) use of insulin; Z79.82 Long term (current) use of aspirin; E11.42 Type 2 diabetes mellitus with diabetic polyneuropathy; E11.65 Type 2 diabetes mellitus with hyperglycemia; B96.20 Unspecified Escherichia coli [E. coli] as the cause of diseases classified elsewhere; B95.61 Methicillin susceptible Staphylococcus aureus infection as the cause of diseases classified elsewhere; B95.2 Enterococcus as the cause of diseases classified elsewhere
CPT/HCPCS: 36415; 36430; 71045; 73630; 73700; 80053; 81001; 82803; 82962; 83735; 83880; 84100; 84436; 84443; 84484; 85007; 85014; 85018; 85025; 85651; 86140; 86850; 87040; 87070; 87077; 87186; 87205; 93005; 94640; 97110; 97162; 97166; 97530; 99152; C1750; J0692; J1644; J1938; J2004; J2250; J2470; J3010; J3370; J3372; J7030; J7050; P9016; P9047

== ENCOUNTER 2025-01-19 11:56 | Outpatient (CLI) | payer MEDICARE, SELFPAY ==
--- OUTSIDE RECORDS SUMMARY | 2024-12-28 04:00 | XMS_ITS ---
Author Organization [facility] [place] Address [address] [place] [address] [place] [address] Care Team Providers Care Aquaculture Farmer Name Role Phone MARY GOODWIN Primary Care Provider REASON FOR VISIT [facility] DC 12/20 Problems Problem Type SNOMED Code ICD Code Onset Dates Problem Status W/U Status Risk Notes Problem Iron deficiency (92111531) Iron deficiency (E61.1) Active confirmed Problem 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) Active confirmed Problem Nephrotic syndrome (00222433) Nephrotic syndrome (N04.9) Active confirmed Problem Foot ulcer due to type 2 diabetes mellitus (3679386742483) Type 2 diabetes mellitus with foot ulcer (E11.621) Active confirmed Encounters Encounter Location Date Provider Diagnosis [facility] [place] [address] [place], [place] [id number] 12/28/2024 MARY GOODWIN Plan Of Treatment No Information Progress Notes * STACEY BOYD PDOB:[birth year] (74 yo F)Acc No.[id number]:12/28/2024 Progress Note Patient: Melania LANDRUMSTACEY SPANGLER Provider: Damon GOODWIN M.D., F.A.C.P. :1950 A ge:74 Y S ex:Female Date:12/28/2024 Address:[address] [place], [place] [id number] Subjective: * Chief Complaints: * 1 . [facility] DC 12/20. * Medical History: Objective: * Vitals: Assessment: Plan: * Treatment: * * Electronic signature of GLEN GOODWIN MD on 01/19/2025 at 11:59 AM EDT Sign off status: Pending * Provider: Damon GOODWIN M.D., F.A.C.P. Date: 12/28/2024 Generated for Sandy braxton/Donald/Sheyla on: 01/19/2025 11:59 AM EDT
--- NOTE | 2025-01-19 | CA_ITS ---
APPROVED REPORT Exam: Pharmacologic Technologist: Karlee Gonzalez Ht: 5 ft 8 in Wt: 188 lbs BSA: 1.99 m2 Medical History Medications: aspirin, atorvastatin, bumetanide, cefepine, clonazepam, clopidogrel, gabapentin, hydralazine, hydrocodone-tylenol, insulin glargine, humalog, imdur, levothyroxine, desenex, mirtazapine, nifedipine ER, xarelto, valsartan Stress Test Details Test: Lexiscan Reason for pharmacologic stress test: physical limitation. HR Resting HR: 70 bpm Max Heart Rate (APMHR): 144.635925 bpm Max HR Achieved: 74 bpm Target HR (85% APMHR): 122.580765 bpm % of APMHR: 51.39 Recovery HR: 71 bpm BP Resting BP: 105.0/53.0 mmHg Max BP: 105.0/53.0 mmHg Recovery BP: 96.0/46.0 mmHg ECG Resting ECG: SR Stress ECG Conclusion Symptoms: SOB with Lexiscan. Arrhythmias/Ectopy: None. ST-T Changes: unremarkable with Lexiscan. Electronically signed by : Nini Malin MD 01/20/2025 00:05:32
--- OUTSIDE RECORDS SUMMARY | 2025-01-19 11:57 | XMS_ITS ---
Author Name Auto Generated, Auto Generated Organization [facility] Address [address] [place] [address] Phone [phone] Care Team Providers Care Stock Drier Tender Name Role Phone Denis Castillo Unavailable [phone] Functional Status No Results Mental Status No [...]
--- OUTSIDE RECORDS SUMMARY | 2025-01-19 11:57 | XMS_ITS ---
Author Name Auto Generated, Auto Generated Organization [facility] Address [address] [place] [address] Phone [phone] Care Team Providers Care Stroke Program Coordinator Name Role Phone Denis Castillo Unavailable [phone] Functional Status No Results Mental Status No [...]
--- OUTSIDE RECORDS SUMMARY | 2025-01-19 11:59 | XMS_ITS | Clinical Summary ---
Author Organization [facility] Address [address] [id number] Care Team Providers Care Fashion Director Name Role Phone SilverAubree livingston Oksana ROSE Primary Care Provider [phone]- [phone] Allergies Active Allergy Reactions Criticality Noted Date [...] Sign Reading Time Taken Comments Blood Pressure 177/64 12/13/2024 8:52 AM EDT Pulse 72 12/13/2024 8:52 AM EDT Temperature 36.6 C (97.9 F) 12/13/2024 8:52 AM EDT Respiratory Rate 17 12/13/2024 8:52 AM EDT Oxygen Saturation 96% 12/13/2024 8:52 AM EDT 2L NC Inhaled Oxygen Concentration - - Weight 82 kg (180 lb 12.8 oz) 10/03/2022 1:11 P M EDT Height 172.7 cm (5' 8 ) 09/18/2022 9:24 AM EDT Body Mass Index 27.49 09/18/2022 9:24 AM EDT Plan of Treatment Health Maintenance Due Date Last Done Comments [facility]-Bone Density Scan 1948 UKY-Depression Screening 1948 [facility]-Hepatitis C Screening 1948 UKY-Medicare Annual Wellness (AWV) 1948 [facility]-Infant/Child/Adol SDOH Screenings 1948 [id number] Vaccine (#1) 1953 Diabetes: Dental Exam 1958 UKY- SDOH Screenings 1966 [facility]Y-Adult SDOH Screenings 1966 [facility]Y-DTaP,Tdap,and Td Vaccines (1 - Tdap) 12/28/1967 UKY-Pneumococcal Vaccine: 50+ Years (1 of 2 - PCV) 12/28/1967 UKY-Zoster Vaccines (1 of 2) 12/28/1967 [facility]Y-Diabetes: Hemoglobin A1C 01/05/2023 07/08/2022, 05/02/2022, 11/08/2021, Additional history exists UKY-RSV Vaccine: 60+ Years or (1 - 1-dose 75+ series) 12/28/2023 [facility]-Influenza Vaccine (#1) 2025 [facility]-Obesity Intervention Completed 023, 09/18/2022, 05/02/2022, [...] to Health Maintenance Insurance MEDICARE Care Teams Fashion Director Relationship Specialty Start Date End Date Aubree Silver APRN [address] [place] [address] PCP - General 03/01/21
--- OUTSIDE RECORDS SUMMARY | 2025-01-19 11:59 | XMS_ITS | Encounter Summary ---
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 - [facility] Social History Tobacco Use Types Packs/Day Years Used Date Smoking Tobacco: Never Assessed Comments Unknown Sex and Gender Information Value Date Recorded Sex Assigned at Not on file Legal Sex Female 10:06 AM EDT Gender Identity Not on file Sexual Orientation Not on file documented as of this encounter Plan of Treatment Not on file documented as of this encounter Visit Diagnoses Not on filedocumented in this encounter Care Teams Air Cargo Specialist Relationship Specialty Start Date End Date Lila Parekh APRN [address] [facility] [place] [id number] PCP - General Nurse Practitioner 01/14/24 documented as of this encounter
--- OUTSIDE RECORDS SUMMARY | 2025-01-19 11:59 | XMS_ITS | Encounter Summary ---
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
--- OUTSIDE RECORDS SUMMARY | 2025-01-19 11:59 | XMS_ITS | Encounter Summary ---
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
--- OUTSIDE RECORDS SUMMARY | 2025-01-19 11:59 | XMS_ITS | Encounter Summary ---
[facility] Address [address] [place] [address] Care Team Providers Care Flavorings Compounder Name Role Phone Lila Parekh APRN Primary Care Provider [phone] [phone] Encounter Details Date Type Department Care Team (Late st Contact Info) Description 03/02/2014 External CPT II GUEST SERVICES OFFICER - [facility] Social History Tobacco Use [...] on filedocumented in this encounter Care Teams Flavorings Compounder Relationship Specialty Start Date End Date Lila Parekh APRN [address] [facility] [place] [address] PCP - General Nurse Practitioner 01/14/24 documented as of this encounter
--- OUTSIDE RECORDS SUMMARY | 2025-01-19 11:59 | XMS_ITS | Continuity of Care Document ---
Author Organization [facility] Address [address] [place] [address] Care Team Providers Care Senior International Tax Manager Name Role Phone SANDRA MARINELLI Primary Care Provider Assessment No assessment recorded. Plan of Treatment Reminders Order Date Submit Date Provider Last Modified By Organization Details Last Modified Time Details Appointments Establish ed Visit 15 min 2024 10:45A M Nuris wilkes APRN Not available Not available Not available Lab CBC w/ diff 2024 07 025 [facility], [address] , [place], [address], 01/07/2025 15:17:25 Referral None recorded. Procedures None recorded. Surgeries None recorded. Imaging None recorded. Medication Orders None recorded. Patient TargetsNo targets recorded. Patient InstructionsNo instructions recorded. Reason for Referral None Reported. Results Created Date Observation Date Name Description Value Unit Range Abnormal Flag Note LastModifiedBy Organization Detail LastModifiedTime 01/08/2001/07/2025 CBC AUTO W DIFF WBC 13.6 K/uL 4.0-10 .5 high Not Available [facility] [address] , [place], [address], 01/07/2025 13:55:09 01/08/20 25 01/07/2025 CBC AUTO W DIFF RBC 3.5 M/mm3 4.2-6. 4 low Not Available [facility] ([facility]) [address] , [place], [address], 01/07/2025 13:55:09 01/08/20 25 01/07/2025 CBC AUTO W DIFF HGB 9.9 gm/dL 12.5-1 6.0 low Not Available [facility] ([facility]) [address] , [place], [address], 01/07/2025 13:55:09 01/08/20 25 01/07/2025 CBC AUTO W DIFF HCT 30.4 % 37.0-4 7.0 low Not Available [facility] ([facility]) [address], [place], [address], 01/07/2025 13:55:09 01/08/20 25 01/07/2025 CBC AUTO W DIFF MCV 86.9 fL 78-100 Not Available [facility] ([facility]) [address] , [place], [address], 01/07/2025 13:55:09 01/08/20 25 01/07/2025 CBC AUTO W DIFF MCH 28.3 pg 27-31 Not Available [facility] ([facility]) [address] , [place], [address], 01/07/2025 13:55:09 01/08/20 25 01/07/2025 CBC AUTO W DIFF MCHC 32.6 g/dL 32-36 Not Available [facility]) [address] , [place], [address], 01/07/2025 13:55:09 01/08/20 25 01/07/2025 CBC AUTO W DIFF RDW 14.2 % 11.5-1 4.0 high Not Available [facility] [address] , [place], [address], 01/07/2025 13:55:09 01/08/20 25 01/07/2025 CBC AUTO W DIFF platelet count 143 K/uL 150-45 0 low Not Available [facility]) [address] , [place], [address], 01/07/2025 13:55:09 01/08/20 25 01/07/2025 CBC AUTO W DIFF MPV 10.5 fL 6-9.5 high Not Available [facility]) [address] , [place], [address], 01/07/2025 13:55:09 01/08/20 25 01/07/2025 CBC AUTO W DIFF neutrophil% 44.8 % 43-65 Not Available [facility] ([facility]) [address], [place], [address], 01/07/2025 13:55:09 01/08/20 25 01/07/2025 CBC AUTO W DIFF lymphocyte% 44.4 % 20.5-4 5.5 Not Available [facility] ([facility]) [address] , [place], [address], 01/07/2025 13:55:09 01/08/20 25 01/07/2025 CBC AUTO W DIFF monocyte% 4.1 % 5.5-11 .7 low Not Available [facility]) [address] , [place], [address], 01/07/2025 13:55:09 01/08/20 25 01/07/2025 CBC AUTO W DIFF eosinophil% 6.0 % 0.9-2. 9 high Not Available [facility] ([facility]) [address] , [place], [address], 01/07/2025 13:55:09 01/08/20 25 01/07/2025 CBC AUTO W DIFF basophil% 0.5 % 0.2-1. 0 Not Available [facility] ([facility]) [address], [place], [address], 01/07/2025 13:55:09 01/08/20 25 01/07/2025 CBC AUTO W DIFF immature granulocytes % 0.2 % 0.0-0. 8 Not Available [facility] ([facility]) [address], [place], [address], 01/07/2025 13:55:09 01/08/20 25 01/07/2025 CBC AUTO W DIFF nucleated red blood cells % 0.0 % Not Available [facility] ([facility]) [address], [place], [address], 01/07/2025 13:55:09 01/08/20 25 01/07/2025 CBC AUTO W DIFF neutrophil# 6.1 K/uL 2.2-4. 8 high Not Available [facility] ([facility]) [address], [place], [address], 01/07/2025 13:55:09 01/08/20 25 01/07/2025 CBC AUTO W DIFF lymphocyte# 6.0 cell/ mcL 1.3-2. 9 high Not Available [facility] ([facility]) [address] [facility], [place], [address], 01/07/2025 13:55:09 01/08/20 25 01/07/2025 CBC AUTO W DIFF monocyte# 0.6 cell/ mcL 0.3-0. 8 Not Available [facility] ([facility]) [address] [place], [address], 01/07/2025 13:55:09 01/08/20 25 01/07/2025 CBC AUTO W DIFF eosinophil# 0.8 cell/ mcL 0-0.2 high Not Available [facility] ([facility]) [address] [place], [address], 01/07/2025 13:55:09 01/08/20 25 01/07/2025 CBC AUTO W DIFF basophil# 0.1 cell/ mcL 0.0-1. 0 Not Available [facility] ([facility]) [address] [place], [address], 01/07/2025 13:55:09 01/08/20 25 01/07/2025 CBC AUTO W DIFF immature gramulocytes # 0.03 K/uL Not Available [facility] ([facility]) [address], [place], [address], 01/07/2025 13:55:09 01/08/20 25 01/07/2025 CBC AUTO W DIFF nucleated red blood cells # 0.00 K/uL Not Available [facility] ([facility]) [address], [place], [address], 01/07/2025 13:55:09 01/08/20 25 01/07/2025 CBC AUTO W DIFF manual differential YES Not Available [facility] ([facility]) [address] [facility], [place], [address], 01/07/2025 13:55:09 01/08/20 25 01/07/2025 CBC AUTO W DIFF segmented neutrophil 35 % 42-76 low Not Available [facility] ([facility]) [address] [facility], [place], [address], 01/07/2025 13:55:09 01/08/20 25 01/07/2025 CBC AUTO W DIFF lymphocyte 55 % 15-41 high Not Available [facility] ([facility]) [address] [facility], [place], [address], 01/07/2025 13:55:09 01/08/20 25 01/07/2025 CBC AUTO W DIFF monocyte 2 % 2-9 Not Available [facility] ([facility]) [address], [place], [address], 01/07/2025 13:55:09 01/08/20 25 01/07/2025 CBC AUTO W DIFF eosinophil 7 % 0-3 high Not Available [facility]) [address] , [place], [address], 01/07/2025 13:55:09 01/08/20 25 01/07/2025 CBC AUTO W DIFF atypical lymphocyte 1 Not Available [facility] ([facility]) [address] , [place], [address], 01/07/2025 13:55:09 01/08/20 25 01/07/2025 CBC AUTO W DIFF platelet estimate SL DECREA SED adequa te Not Available [facility] ([facility]) [address], [place], [address], 01/07/2025 13:55:09 01/08/20 25 01/07/2025 CBC AUTO W DIFF platelet morphology NORMAL normal Not Available [facility] ([facility]) [address], [place], [address], 01/07/2025 13:55:09 01/08/20 25 01/07/2025 CBC AUTO W DIFF RBC morphology ABNORM AL normal delta Not Available [facility] ([facility]) [address] , [place], [address], 01/07/2025 13:55:09 01/08/20 25 01/07/2025 CBC AUTO W DIFF polychromasi a SLIGHT none seen Not Available [facility] ([facility]) [address], [place], [address], 01/07/2025 13:55:09 01/08/20 25 01/07/2025 CBC AUTO W DIFF ovalocytes SLIGHT none seen Not Available [facility] ([facility]) [address], [place], [address], 01/07/2025 13:55:09 01/08/20 25 01/07/2025 CBC AUTO W DIFF smudge cells FEW none seen Not Available [facility] ([facility]) [address], [place], [address], 01/07/2025 13:55:09 12/15/19 25 12/14/2024 trans -thor acic echoc ardio gram (TTE) (PROC ) No observ ation record ed. [facility] Registration [address] [place], [address], 12/19/2024 19:45:13 Result Notes None recorded. Medical Equipment None Reported. Medications Name Sig Start Date Stop Date Status Note LastModified by Organization Details LastModified Time tuberculin PPD 5 tub. unit/0.1 mL intradermal injection solution Inject by intraderm al route. active Not Available Not Available No t Available albuterol sulfate 2.5 mg/3 mL (0.083 %) solution for nebulizatio n Inhale 3 mL 4 times a day by nebulizat ion route. active Not Available Not Available No t Available hydrocodone 5 mg-acetamin ophen 325 mg tablet TAKE ONE TABLET BY MOUTH EVERY 8 HOURS NEEDED FOR moderate pain (scale score 5-6) MAY CAUSE DROWSINES S active Not Available Not Available No t Available Nystop 100,000 unit/gram topical powder 01/07 completed Not Available Not Available Not Available clonazepam 0.5 mg tablet TAKE ONE TABLET BY MOUTH TWICE DAILY NEEDED FOR ANXIETY MAY CAUSE DROWSINES S active Not Available Not Available No t Available gabapentin 400 mg capsule TAKE 1 CAPSULE BY MOUTH THREE TIMES DAILY active Not Available Not Available No t Available clonazepam 1 mg tablet TAKE 1 TABLET BY MOUTH THREE TIMES DAILY 01/07 completed Not Available Not Available Not Available miconazole nitrate 2 % topical powder APPLY TO THE AFFECTED AREA(S) BY TOPICAL ROUTE 2 TIMES PER DAY IN THEMORNIN G AND EVENING active Not Available Not Available No t Available hydralazine 25 mg tablet TAKE ONE TABLET BY MOUTH THREE TIMES DAILY 01/07 completed Not Available Not Available Not Available Taj-on Loperamide HCl 2 mg tablet Take 2 mg every 6 hours by oral route as needed. active Not Available Not Available No t Available tramadol 50 mg tablet 07/11 /2025 completed Not Available Not Available Not Available levothyroxi ne 88 mcg tablet active Not Available Not Available Not Available linezolid 600 mg tablet Take 1 tablet twice a day by oral route. active Not Available Not Available No t Available nifedipine ER 90 mg tablet,exte nded release 24 hr TAKE 1 TABLET BY MOUTH ONCE A DAY active Not Available Not Available No t Available hydrocodone 7.5 mg-acetamin ophen 325 mg tablet TAKE 1 TABLET BY MOUTH EVERY EIGHT HOURS NEEDED FOR PAIN 01/07 completed Not Available Not Available Not Available cephalexin 500 mg capsule TAKE 2 CAPSULES BY MOUTH TWICE DAILY FOR 15 DAYS 01/07 completed Not Available Not Available Not Available lisinopril 20 mg-hydrochl orothiazide 25 mg tablet 01/07 completed Not Available Not Available Not Available bumetanide 1 mg tablet TAKE 3 TABLETS BY MOUTH 2 TIMES A DAY active Not Available Not Available No t Available allopurinol 300 mg tablet 01/07 completed Not Available Not Available Not Available hydralazine 50 mg tablet TAKE 1 TABLET BY MOUTH THREE TIMES DAILY active Not Available Not Available No t Available furosemide 20 mg tablet 01/07 completed Not Available Not Available Not Available insulin lispro (U-100) 100 unit/mL subcutaneou s solution Inject as needed by subcutane ous route before meal(s). active Not Available Not Available No t Available cefdinir 300 mg capsule TAKE ONE CAPSULE BY MOUTH TWICE DAILY FOR 5 DAYS -- FINISH ALL MEDICINE -- 01/07 completed Not Available Not Available Not Available metformin ER 500 mg tablet,exte nded release 24 hr 01/07 completed Not Available Not Available Not Available spironolact one 50 mg tablet TAKE ONE TABLET BY MOUTH ONCE A DAY WITH FOOD 01/07 completed Not Available Not Available Not Available valsartan 160 mg tablet Take 1 tablet every day by oral route. active Not Available Not Available No t Available Normal Saline Flush 0.9 % injection syringe Take 10 mL every day by injection route. active Not Available Not Available No t Available mirtazapine 7.5 mg tablet Take 1 tablet every day by oral route. active Not Available Not Available No t Available nitrofurant oin monohydrate /macrocryst als 100 mg capsule active Not Available Not Available Not Available BD Ultra-Fine Mini Pen Needle 31 gauge x 3/16 01/07 completed Not Available Not Available Not Available atorvastati n active Not Available Not Available Not Available [facility] active Not Available Not Available Not Available insulin glargine (U-100) 100 unit/mL (3 mL) subcutaneou s pen Inject 10 units every day by subcutane ous route. active Not Available Not Available No t Available Humalog KwikPen (U-100) Insulin 100 unit/mL subcutaneou s active Not Available Not Available Not Available febuxostat 40 mg tablet 01/07 completed Not Available Not Available Not Available Jardiance 10 mg tablet 01/07 completed Not Available Not Available Not Available [facility] active Not Available Not Available Not Available clopidogrel bisulfate (bulk) active Not Available Not Available Not Available Xarelto 2.5 mg tablet Take 1 tablet twice a day by oral route. active Not Available Not Available No t Available aspirin 81 mg capsule Take 1 capsule every day by oral route. active Not Available Not Available No t Available Vitals Date Recorded Heart rate Body height Oxygen saturation Oxygen saturation in Arterial blood by Pulse oximetry Body temperature Body mass index (BMI) Body weight Systolic And Diastolic Provider Name and Address Organization Details Last Updated DateTime 5 76 /min 172.72 cm 96 % 96 % 96.4 [degF] 30.4 kg/m2 74073.4 7 g 137/62 mm[Hg] [facility] [place] 5 10:56:55 Social History None recorded. Functional Status None recorded. Mental Status None recorded. Family History Nothing Reported. Medical History No medical history recorded. Gynecological HistoryNo gynecological history recorded. Obstetrics History GPAL:G 0 P 0 0 0 0 Past Encounters Encounter ID Performer Location Encounter Start Date Encounter Closed Date Diagnosis/Indication Diagnosis SNOMED-CT Code Diagnosis ICD10 Code Diagnosis Note [id number] Nuris [place] in, HUMAN SERVICES SUPERVISOR [facility] [place] [address] 01/07/2025 10:45:15 01/07/2025 12:21:04 Chronic ulcer of heel 1382437287 6987567 L97.401 No active infection upon exam. Left looks good. Right needs debridemen t of tissue. Recommend wound care 2-3x weekly at facility. Follow up with podiatry as scheduled. Will check lab work. Will follow up in 2 weeks. Call my office if anything changes or worsens. Counseled at length of s/sx of concern. Dependence on renal dialysis 481853187 Z99.2 hemodialys is. T//S. Compliant. Dialysis cath in place right chest. Dressing in place. Peripheral ly inserted central venous catheter in situ [id number] [address] Z45[address] Pulled per protocol. Pressure applied per protocol and pressure dressing. Patient tolerated. Discharged stable. End-stage renal disease 04853082 N18.6 Follow with nephrology as scheduled. Health Concerns Section Related Observation LastModified by Organization Detai ls LastModified Time None Recorded Concern Status LastModified by Organization Details LastModified Time None Recorded Payers Encounter Date Sequence Insurance Name Policy Number Policy Deleon Covered Member ID Deleon Member ID Guarantor Name 01/07/2025 1 [employer] - GOLD PLUS (MEDICARE REPLACEMENT/ ADVANTAGE - HMO) Michelle Rivas [id number] Michelle Rivas Notes Date Note Type Note Provider Name and Address Organization Details Recorded Time 01/07/2025 text/html patient presents to clinic for bilateral heel ulcerations. These have been ongoing for a long time. Patient sees podiatry in [place]. She just completed a 14 day course of Cefepime and Vancomycin IV antibiotics. She still has the LUE picc in place. I am not sure who ordered the antibiotics. She was not seen by [facility] infectious disease while inpatient at [facility]. I do not know who is following the labs and medication orders. She is currently at [facility]. She reports some decreased appetite. She is tolerating the dialysis. Patient is on hemodialysis Friday, , Friday. Right chest dialysis cath in place. Dressing in place. She denies any vomiting/diarrhea. Nuris Thakkar, HUMAN SERVICES SUPERVISOR [address], [place], [address], [facility] [place] & [place] 01/12/2025 11:47:12 OBGyn Episode No OBEpisode recorded.
--- OUTSIDE RECORDS SUMMARY | 2025-01-19 11:59 | XMS_ITS | Data Portability ---
Author Organization ID - [facility] ADMIN Address [address] [place] [id number] Care Team Providers Care Barrel Liner Name Role Phone SANDRA MARINELLI Primary Care Provider Assessment No assessment recorded. Plan of Treatment Reminders Order Date Submit Date Provider Last Modified By Organization Details Last Modified Time Details Appointments Establish ed Visit 15 min 2024 10:45A M Nuris wilkes APRN Not available Not available Not available Lab CBC w/ diff 2024 025 [facility], [address] , [place], [address], 01/07/2025 15:17:25 Referral None recorded. Procedures None recorded. Surgeries None recorded. Imaging None recorded. Medication Orders None recorded. Patient TargetsNo targets recorded. Patient InstructionsNo instructions recorded. Reason for Referral None Reported. Results Created Date Observation Date Name Description Value Unit Range Abnormal Flag Note LastModifiedBy Organization Detail LastModifiedTime 01/08/2001/07/2025 CBC AUTO W DIFF WBC 13.6 K/uL 4.0-10 .5 high Not Available [facility] ([facility]) [address], [place], [address], 01/07/2025 13:55:09 01/08/20 25 01/07/2025 CBC AUTO W DIFF RBC 3.5 M/mm3 4.2-6. 4 low Not Available [facility] ([facility]) [address] , [place], [address], 01/07/2025 13:55:09 01/08/20 25 01/07/2025 CBC AUTO W DIFF HGB 9.9 gm/dL 12.5-1 6.0 low Not Available [facility] ([facility]) [address] , [place], [address], 01/07/2025 13:55:09 01/08/20 25 01/07/2025 CBC AUTO W DIFF HCT 30.4 % 37.0-4 7.0 low Not Available [facility] ([facility]) [address], [place], [address], 01/07/2025 13:55:09 01/08/20 25 01/07/2025 CBC AUTO W DIFF MCV 86.9 fL 78-100 Not Available [facility] ([facility]) [address] , [place], [address], 01/07/2025 13:55:09 01/08/20 25 01/07/2025 CBC AUTO W DIFF MCH 28.3 pg 27-31 Not Available [facility] ([facility]) [address] , [place], [address], 01/07/2025 13:55:09 01/08/20 25 01/07/2025 CBC AUTO W DIFF MCHC 32.6 g/dL 32-36 Not Available [facility] ([facility]) [address] , [place], [address], 01/07/2025 13:55:09 01/08/20 25 01/07/2025 CBC AUTO W DIFF RDW 14.2 % 11.5-1 4.0 high Not Available [facility] ([facility]) [address] , [place], [address], 01/07/2025 13:55:09 01/08/20 25 01/07/2025 CBC AUTO W DIFF platelet count 143 K/uL 150-45 0 low Not Available [facility] ([facility]) [address] , [place], [address], 01/07/2025 13:55:09 01/08/20 25 01/07/2025 CBC AUTO W DIFF MPV 10.5 fL 6-9.5 high Not Available [facility] ([facility]) [address] , [place], [address], 01/07/2025 13:55:09 01/08/20 25 01/07/2025 CBC AUTO W DIFF neutrophil% 44.8 % 43-65 Not Available [facility] ([facility]) [address], [place], [address], 01/07/2025 13:55:09 01/08/20 25 01/07/2025 CBC AUTO W DIFF lymphocyte% 44.4 % 20.5-4 5.5 Not Available [facility] ([facility]) [address] [place], [address], 01/07/2025 13:55:09 01/08/20 25 01/07/2025 CBC AUTO W DIFF monocyte% 4.1 % 5.5-11 .7 low Not Available [facility] ([facility]) [address] [place], [address], 01/07/2025 13:55:09 01/08/20 25 01/07/2025 CBC AUTO W DIFF eosinophil% 6.0 % 0.9-2. 9 high Not Available [facility] ([facility]) [address] [place], [address], 01/07/2025 13:55:09 01/08/20 25 01/07/2025 CBC AUTO W DIFF basophil% 0.5 % 0.2-1. 0 Not Available [facility] ([facility]) [address] [place], [address], 01/07/2025 13:55:09 01/08/20 25 01/07/2025 CBC AUTO W DIFF immature granulocytes % 0.2 % 0.0-0. 8 Not Available [facility] ([facility]) [address] , [place], [address], 01/07/2025 13:55:09 01/08/20 25 01/07/2025 CBC AUTO W DIFF nucleated red blood cells % 0.0 % Not Available [facility] ([facility]) [address], [place], [address], 01/07/2025 13:55:09 01/08/20 25 01/07/2025 CBC AUTO W DIFF neutrophil# 6.1 K/uL 2.2-4. 8 high Not Available [facility] ([facility]) [address], [place], [address], 01/07/2025 13:55:09 01/08/20 25 01/07/2025 CBC AUTO W DIFF lymphocyte# 6.0 cell/ mcL 1.3-2. 9 high Not Available [facility] ([facility]) [address], [place], [address], 01/07/2025 13:55:09 01/08/20 25 01/07/2025 CBC AUTO W DIFF monocyte# 0.6 cell/ mcL 0.3-0. 8 Not Available [facility] ([facility]) [address], [place], [address], 01/07/2025 13:55:09 01/08/20 25 01/07/2025 CBC AUTO W DIFF eosinophil# 0.8 cell/ mcL 0-0.2 high Not Available [facility] ([facility]) [address], [place], [address], 01/07/2025 13:55:09 01/08/20 25 01/07/2025 CBC AUTO W DIFF basophil# 0.1 cell/ mcL 0.0-1. 0 Not Available [facility] ([facility]) [address], [place], [address], 01/07/2025 13:55:09 01/08/20 25 01/07/2025 CBC AUTO W DIFF immature gramulocytes # 0.03 K/uL Not Available [facility] ([facility]) [address], [place], [address], 01/07/2025 13:55:09 01/08/20 25 01/07/2025 CBC AUTO W DIFF nucleated red blood cells # 0.00 K/uL Not Available [facility] ([facility]) [address] [facility], [place], [address], 01/07/2025 13:55:09 01/08/20 25 01/07/2025 CBC AUTO W DIFF manual differential YES Not Available [facility] ([facility]) [address] [facility], [place], [address], 01/07/2025 13:55:09 01/08/20 25 01/07/2025 CBC AUTO W DIFF segmented neutrophil 35 % 42-76 low Not Available [facility] ([facility]) [address] [place], [address], 01/07/2025 13:55:09 01/08/20 25 01/07/2025 CBC AUTO W DIFF lymphocyte 55 % 15-41 high Not Available [facility] ([facility]) [address] [place], [address], 01/07/2025 13:55:09 01/08/20 25 01/07/2025 CBC AUTO W DIFF monocyte 2 % 2-9 Not Available [facility] ([facility]) [address] [place], [address], 01/07/2025 13:55:09 01/08/20 25 01/07/2025 CBC AUTO W DIFF eosinophil 7 % 0-3 high Not Available [facility] ([facility]) [address] [place], [address], 01/07/2025 13:55:09 01/08/20 25 01/07/2025 CBC AUTO W DIFF atypical lymphocyte 1 Not Available [facility] ([facility]) [address] [facility], [place], [address], 01/07/2025 13:55:09 01/08/20 25 01/07/2025 CBC AUTO W DIFF platelet estimate SL DECREA SED adequa te Not Available [facility] ([facility]) [address] [facility], [place], [address], 01/07/2025 13:55:09 01/08/20 25 01/07/2025 CBC AUTO W DIFF platelet morphology NORMAL normal Not Available [facility] ([facility]) [address] [facility], [place], [address], 01/07/2025 13:55:09 01/08/20 25 01/07/2025 CBC AUTO W DIFF RBC morphology ABNORM AL normal delta Not Available [facility] ([facility]) [address] [facility], [place], [address], 01/07/2025 13:55:09 01/08/20 25 01/07/2025 CBC AUTO W DIFF polychromasi a SLIGHT none seen Not Available [facility] ([facility]) [address] [facility], [place], [address], 01/07/2025 13:55:09 01/08/20 25 01/07/2025 CBC AUTO W DIFF ovalocytes SLIGHT none seen Not Available [facility] ([facility]) [address] [facility], [place], [address], 01/07/2025 13:55:09 01/08/20 25 01/07/2025 CBC AUTO W DIFF smudge cells FEW none seen Not Available [facility] ([facility]) [address], [place], [address], 01/07/2025 13:55:09 12/15/19 25 12/14/2024 trans -thor acic echoc ardio gram (TTE) (PROC ) No observ ation record ed. [email or web address] [facility] [address] [facility] [place], [address], 12/19/2024 19:45:13 Result Notes None recorded. Medical [...] No t Available tramadol 50 mg tablet 01/07 completed Not Available Not [...] active Not Available Not Available Not Available [facility] active Not Available Not Available Not Available [...] completed Not Available Not Available Not Available [facility] active Not Available Not Available Not Available [...] % 96 % 96.4 [degF] 30.4 kg/m2 46342.4 7 g 137/62 mm[Hg] Gina Jacinto [facility] & [place] 5 10:56:55 Social History None recorded. Functional Status None recorded. Mental Status None recorded. Family History Nothing Reported. Medical History No medical history recorded. Gynecological HistoryNo gynecological history recorded. Obstetrics History GPAL:G 0 P 0 0 0 0 Past Encounters Encounter ID Performer Location Encounter Start Date Encounter Closed Date Diagnosis/Indication Diagnosis SNOMED-CT Code Diagnosis ICD10 Code Diagnosis Note [id number] Nuris Cope[place] in, [facility] Infectiou s Disease -[address] [place] [phone] 01/07/2025 10:45:15 01/07/2025 12:21:04 Chronic ulcer of heel 6304481686 2251685 L97.401 No active infection upon exam. Left looks good. Right needs debridemen t of tissue. Recommend wound care 2-3x weekly at facility. Follow up with podiatry as scheduled. Will check lab work. Will follow up in 2 weeks. Call my office if anything changes or worsens. Counseled at length of s/sx of concern. Dependence on renal dialysis 563043828 Z99.2 hemodialys is. T//S. Compliant. Dialysis cath in place right chest. Dressing in place. Peripheral ly inserted central venous catheter in situ 5618271563 [address]45[address] Pulled per protocol. Pressure applied per protocol and pressure dressing. Patient tolerated. Discharged stable. End-stage renal disease 55721335 N18.6 Follow with nephrology as scheduled. Health Concerns Section Related Observation LastModified by Organization Detai ls LastModified Time None Recorded Concern Status LastModified by Organization Details LastModified Time None Recorded Advance Directives Directive None Recorded Payers Insurance Date Sequence Insurance Name Policy Number Policy Deleon Covered Member ID Deleon Member ID Guarantor Name 01/18/2025 1 [employer] - GOLD [employer]US (MEDICARE REPLACEMENT/ ADVANTAGE - HMO) Michelle Rivas [id number] Michelle Rivas Notes Date Note Type Note Provider Name and Address Organization Details Recorded Time 01/07/2025 text/html patient presents to clinic for bilateral heel ulcerations. These have been ongoing for a long time. Patient sees podiatry in [place]. She just completed a 14 day course of Cefepime and Vancomycin IV antibiotics. She still has the LUE picc in place. I am not sure who ordered the antibiotics. She was not seen by [facility] infectious disease while inpatient at [facility]. I do not know who is following the labs and medication orders. She is currently at [facility]. She reports some decreased appetite. She is tolerating the dialysis. Patient is on hemodialysis Friday, , Friday. Right chest dialysis cath in place. Dressing in place. She denies any vomiting/diarrhea. Nuris Thakkar, [employer] [address], [place], [address], [facility] - [place] & [place] 01/12/2025 11:47:12 OBGyn Episode No OBEpisode recorded.
--- OUTSIDE RECORDS SUMMARY | 2025-01-19 11:59 | XMS_ITS | Clinical Summary ---
Author Organization [facility] Address [address] [place] [address] Care Team Providers Care District Commercial Superintendent Name Role Phone Lila Parekh APRN Primary Care Provider [phone] Allergies Active Allergy Reactions Criticality Noted Date Comments Amoxicillin-Pot Clavulanate Other (See Comments) 11/17/2015 Pt. Cannot remember Moxifloxacin Anaphylaxis High 11/17/2015 Sulfa Antibiotics Other (See Comments) 05/11/20 Patient cant remember what kind of reaction she gets from sulfa drugs Medications clonazePAM (KlonoPIN) 1 MG tablet Take 1 mg by mouth 2 (two) times a day as needed for seizures. Active levothyroxine (SYNTHROID, LEVOTHROID) 88 MCG tablet Take 1 tablet by mouth Daily. Active allopurinol (ZYLOPRIM) 300 MG tablet Take 300 mg by mouth daily. Active metFORMIN (GLUCOPHAGE) 500 MG tablet Take 500 mg by mouth Daily. 0 Active insulin glargine (LANTUS) 100 UNIT/ML injection Inject 45 Units under the skin into the appropriate area as directed Daily. Active insulin lispro (humaLOG) 100 UNIT/ML injection Inject 15 Units under the skin into the appropriate area as directed 3 (Three) Times a Day Before Meals. Active spironolactone (ALDACTONE) 50 MG tablet Take 50 mg by mouth Daily. Active furosemide (LASIX) 20 MG tablet Daily. 2 Active gabapentin (NEURONTIN) 400 MG capsule Daily. 2 Active lisinopril-hydr ochlorothiazide (PRINZIDE,ZESTO RETIC) 20-25 MG per tablet Daily. 2 Active Active Problems Problem Noted Date Diagnosed Date Abnormal stress test 03/10/2018 Overview (03/10/2018): Added automatically from request for surgery [id number] Type 2 diabetes mellitus 02/21/2015 Overview (02/14/2016): A1c of 2014. Diabetes poorly controlled, with A1c greater than 12 per last evaluation followed by Dr. Parekh with recent attempts at modification of therapy. Hypertension 02/21/2015 Overview (02/14/2016): controlled on current regimen. Coronary artery disease 02/21/2015 Overview (02/14/2016): Probable coronary artery disease with fixed anteroapical defect. If she has crescendo pattern of discomfort, catheterization will be necessary. With a fixed defect with no reversibility and preserved left ventricular function, medical management will be continued.2005, [facility] nonobstructive.November 2014, [facility] at [facility] with fixed anteroapical defect, EF 79%. Osteoarthritis 02/21/2015 Acid reflux 02/21/2015 Family History Medical History Relation Name Comments Lymphoma Brother 1 No Known Problems Brother 2 Cancer Father Parkinsonism Mother Relation Name Status Comments Brother 1 Brother 2 Alive Father Mother Social History Tobacco Use Types Packs/Day Years Used Date Smoking Tobacco: Never Smokeless Tobacco: Never Tobacco Cessation:Counseling Given: Not Answered Alcohol Use Standard Drinks/Week Comments No 0 (1 standard drink = 0.6 oz pur e alcohol) Abuse Screen Answer Date Recorded Unsafe at Home or Work/School Not on file Feels Threatened by Someone? Not on file 02/2023 Does Anyone Keep You from Co ntacting Others or Doint Things Outside the Home? Not on file 04/07/2023 Physical Sign of Abuse Present Not on file 1 Housing Stability Answer Date Recorded Current Living Arrangements Not on file 1002/2023 Potentially Unsafe Housing Conditions Not on onelia e 04/07/2023 Family and Community Support Answer Jorden e Recorded Help with Day-to-Day Activities Not on file 04/07/2023 Lonely or Isolated Not on file 04/07/2023 Employment Answer Date Recorded Do you want help finding or keeping work or a sunday b? Not on file 04/07/2023 Disabilities Answer Date Recorded Concentrating, Remembering, or Making Decisions Difficulty Not on file 04/07/2023 Doing Errands Independently Difficulty Not on fi le 04/07/2023 Education Answer Date Recorded Help with school or training? Not on file Preferred Language Not on file 04/07/2023 Comments No Sex and Gender Information Value Date Recorded Sex Assigned at Not on file Legal Sex Female 10:06 AM EDT Gender Identity Not on file Sexual Orientation Not on file Last Filed Vital Signs Vital Sign Reading Time Taken Comments Blood Pressure 180/82 04/18/2022 3:21 PM EDT Pulse 67 04/18/2022 3:21 PM EDT Temperature 36.8 C (98.2 F) 07/30/2021 6:31 PM EST Respiratory Rate 18 07/30/2021 6:31 PM EST Oxygen Saturation 97% 04/18/2022 3:21 PM EDT Inhaled Oxygen Concentration - - Weight 88 kg (194 lb) 04/18/2022 3:21 PM EDT Height 172.7 cm (5' 8 ) 04/18/2022 3:21 PM EDT Body Mass Index 29.5 04/18/2022 3:21 PM EDT Plan of Treatment Health Maintenance Due Date Last Done Comments DXA SCAN 1950 DIABETIC EYE EXAM 1958 DIABETIC FOOT EXAM 1958 URINE MICROALBUMIN-CREATININ E RATIO (uACR) 1958 Pneumococcal Vaccine 50+ (1 of 2 - PCV) 12/28/1967 TDAP/TD VACCINES (1 - Tdap) 12/28/1967 COLOGUARD 1993 COLON CANCER SCREENING 5 YEA R SIGMOIDOSCOPY 1993 COLONOSCOPY 1993 [address] CANCER SCREENING 1993 CT COLONOGRAPHY 1993 FECAL OCCULT BLOOD TEST 1993 FIT Testing (1 year) 1993 ZOSTER VACCINE (1 of 2) 1998 ANNUAL WELLNESS VISIT 03/11/2018 HEPATITIS C SCREENING 03/11/2018 LIPID PANEL 03/19/2019 03/19/2018 HEMOGLOBIN A1C 01/05/2023 07/08/2022, 11/0 08/2021, 11/08/2021, Additional history exists RSV Vaccine - Adults (1 - 1- dose 75+ series) 12/28/2023 COVID-19 Vaccine (2023-2 5 season) 2024 INFLUENZA VACCINE 03/30/2025 Procedures Procedure Name Priority Date/Time Associated Diagnosis Comments HEMOGLOBIN A1C STAT 03/19/2018 7:31 AM EDT LIPID PANEL STAT 03/19/2018 7:31 AM EDT from Last 3 Months or Most Recently Relevant to Health Maintenance Results * (ABNORMAL) Hemoglobin A1c (03/19/2018 7:31 AM EDT) Hemoglobin A1C 10.10(H) 4.80 - 5.60 % 03/19/2018 10:33 AM EDT [facility] Blood Line / Unknown 03/19/2018 7: 31 AM EDT 03/19/2018 9:37 AM EDT Narrative [facility] - 03/19/2018 10:33 AM EDT The [place] [employer] recommends maintenance of Hemoglobin A1C at 7.0% or lower. Goals for Hemoglobin A1C reduction may need to be modified if hypoglycemia is a problem. us Augustina Ray APRN LAB BLOOD ORDERABLES Final Result [facility]
[address] [place] [address], * (ABNORMAL) Lipid Panel (03/19/2018 7:31 AM EDT) Total Cholesterol 241(H) 0 - 200 mg/dL 03/19/2018 8:20 AM EDT [facility] Triglycerides 290(H) 0 - 150 mg/dL 03/19/2018 8:20 AM EDT [facility] HDL Cholesterol 46 40 - 60 mg/dL 03/19/2018 8:20 AM EDT [facility] LDL Cholesterol 169(H) 0 - 130 mg/dL 03/19/2018 8:20 AM EDT [facility] Blood Line / Unknown 03/19/2018 7: 31 AM EDT 03/19/2018 7:38 AM EDT Narrative [facility] - 03/19/2018 8:20 AM EDT Cholesterol Reference Ranges: Desirable < 200 mg/dL Borderline 200-239 mg/dL High Risk > 239 mg/dL Triglyceride Reference Ranges: Normal < 150 mg/dL Borderline 150-199 mg/dL High 200-499 mg/dL Very High > 499 mg/dL HDL Reference Ranges: Low < 40 mg/dL High > 59 mg/dL LDL Reference Ranges: Optimal < 100 mg/dL Near Optimal 100-129 mg/dL Borderline 130-159 mg/dL High 160-189 mg/dL Very High > 189 mg/dL Augustina Ray APRN LAB BLOOD ORDERABLES Final Result [facility]
[address] [place] [address], from Last 3 Months or Most Recently Relevant to Health Maintenance Insurance MEDICARE ADVANTAGE HMO Care Teams District Commercial Superintendent Relationship Specialty Start Date End Date Lila Parekh APRN [address] [place] [address] PCP - General Nurse Practitioner 01/14/24
--- NOTE | 2025-01-19 12:00 | NM_ITS ---
APPROVED REPORT Exam: Nuclear Stress Test Indication: Abnormal EKG, HTN, DM, High cholesterol, Family history Patient Location: Outpatient Stress Tech: Karlee Carballo [place] Tech:Gloria Rosario, ARRT, RT (R)(N) Ht: 5 ft 8 in Wt: 188 lbs Bra Size: B HR: 71 bpm BP: 105/53 mmHg BSA: 1.99 m2 TID: 1.20 BMI: 28.5 History: Abnormal EKG, HTN, DM, High cholesterol, Family history Procedure: Patient received 0.4 mg of intravenous Lexiscan, resting heart rate 71 bpm, resting blood pressure 105/53 mmHg, with Lexiscan maximum heart rate achieved was 76 bpm which is % of the maximum predicted heart rate and blood pressure was 100/44 mmHg. With Lexiscan, patient denied any complaint of chest pain. Cardiac Stress and Resting SPECT Images: Cardiac Stress and Resting SPECT images were obtained using technetium 99m Myoview 31.3 mCi stress and 9.95 mCi at rest. The patient was unable to lie on her abdomen. Therefore, prone stress imaging could not be performed. This may affect the diagnostic interpretation of the study findings. Resting and stress imaging in supine positions demonstrate no evidence of focal fixed or reversible perfusion defects. There is borderline increase in transient ischemic dilatation ratio (TID 1.20), which may be suggestive of possible multivessel disease or balanced ischemia. Gated imaging demonstrates normal global and regional LV systolic function. LVEF is calculated at >75%. Conclusion: No evidence of focal fixed or reversible perfusion defects. There is borderline increase in transient ischemic dilatation ratio (TID 1.20), which may be suggestive of possible multivessel disease or balanced ischemia. Gated imaging demonstrates normal global and regional LV systolic function. LVEF is calculated at >75%. Electronically signed by : Nini Malin MD 01/20/2025 00:05:08
--- OUTSIDE RECORDS SUMMARY | 2025-01-19 12:00 | XMS_ITS ---
Author Name Smita, Clinic Address [address] [place] [address] Phone [phone] Organization [facility] e, NA DOCUMENT DISCLAIMER Multiple document versions may exist, please be sure you review the latest version. The information in the [facility] Continuity of Care Document represents a summary of certain health and medical information. It may not contain the complete medical history for the patient and should be independently verified. The represented time in the document is Eastern Time. 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 Z79.82 Active December 21, 2024 skilled nursing (current) use of insulin Z79.4 Active December 21, 2024 skilled nursing (current) use of antithrombotics/antiplatele ts Z79.02 Active December 21, 2024 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 anticoagulants Z79.01 Active December 21, 2024 Peripheral vascular disease, unspecified I73.9 Active December 21, 2024 Chronic diastolic (congestive) heart failure I50.32 Active December 21, 2024 Atherosclerotic heart diseas e of [place] coronary artery without angina pectoris I25.10 Active December 21, 2024 Hypertensive heart and chron ic kidney disease with heart failure and with stage 5 chronic kidney disease, or end stage renal disease I13.2 Active December 21, 2024 Hyperlipidemia, unspecified E78.5 Active December 21, 2024 Morbid (severe) obesity due to excess calories E66.01 Active December 21, 2024 Hypothyroidism, unspecified E03.9 Active December 21, 2024 Other specified chronic obstructive pulmonary disease J44.89 Active December 20, 2024 Iron deficiency anemia, unspecified D50.9 Activ e December 20, 2024 Secondary hyperparathyroidism of renal origin N25.81 Active December 20, 2024 Encounter for change or alisia mikey of nonsurgical wound dressing Z48.00 Active December 20, 2024 Coagulation defect, unspecified D68.9 Active December 20, 2024 Dependence on renal dialysis Z99.2 Active December 20, 2024 Diabetes mellitus due to und erlying condition with other diabetic kidney complication E08.29 Active December 20 End stage renal disease N18.6 Active December 20, 2024 ALLERGIES AND ADVERSE REACTIONS No Known Allergies SOCIAL HISTORY Tobacco Use Status Tobacco Type Never smoker - Caregiver Characteristics Need Level ADL Type Relationship of Caregiver Requires some assistance Shopping Meal preparati on Laundry Care, Facility Characteristics of Home environment Housing Status Patient Resides With in rehab at [facility] Gender and Sex Information Gender Identity Sexual Orientation Female Heterosexual MEDICATIONS Prescribed Medications for Dialysis Treatments Medication Instructions Dosage Route Start Date End Date Status Heparin Sodium (Porcine) 1,000 Units/mL Catheter Lock Arterial Post Dialysis, Every Treatment 1600 units Arterial Red Port December 23, 2024 December 22, 2025 Active Heparin Sodium (Porcine) 1,000 Units/mL Catheter Lock Venous Post Dialysis, Every Treatment 1600 units Venous Blue Port December 23, 2024 December 22, 2025 Active Iron Sucrose (Venofer) During Dialysis, 3X Week 100 mg Intravenous - push December 25, 2024 January 15, 2025 Active Mircera During Dialysis, Every 2 weeks 50 mcg Intravenous - push January 15, 2025 January 14, 2026 Active Heparin Sodium (Porcine) 1,000 Units/mL Catheter Lock Arterial Post Dialysis, Every Treatment 2100 units Arterial Red Port December 21, 2024 December 20, 2025 Discontinued Heparin Sodium (Porcine) 1,000 Units/mL Catheter Lock Venous Post Dialysis, Every Treatment 2100 units Venous Blue Port December 21, 2024 December 20, 2025 Discontinued Tuberculin Purified Protein Derivative (Tubersol) Once 0.1 mL Intradermal December 23, 2024 Discontinued Home Medications Medication Instructions Dosage Route Start Date End Date Stat us albuterol sulfate 2.5 mg/3 mL (0.083 %) Inhale using nebulizer every four hours as needed 3 ml INHALATION December 29, 2024 Active aspirin 81 mg Take by mouth once a day 1 tablet ORAL December 29, 2024 Active atorvastatin 40 mg Take by mouth once a day 1 tablet ORAL December 29, 2024 Active bumetanide 1 mg Take ORAL December 29, 2024 Active cefepime 1 gram Administer intravenously once a day as directed 1 gram INJECTION December 29, 2024 Active clonazepam 0.5 mg Take by mouth twice a day as needed 1 tablet ORAL December 29, 2024 Active clopidogrel 75 mg Take by mouth once a day 1 tablet ORAL December 29, 2024 Active gabapentin 300 mg Take by mouth every night at bedtime 1 capsule ORAL December 29, 2024 Active hydralazine 50 mg Take by mouth once a day 1 tablet ORAL December 29, 2024 Active hydrocodone-acetam inophen 5-325 mg Take by mouth every eight hours as needed for pain 1 tablet ORAL December 29, 2024 Active insulin glargine 100 unit/mL Inject subcutaneously once a day 10 unit SUBCUTANEOUS December 29, 2024 Active insulin lispro 100 unit/mL Inject subcutaneously four times a day 10 unit SUBCUTANEOUS December 29, 2024 Active isosorbide mononitrate 60 mg Take by mouth once a day 1 tablet ORAL December 29, 2024 Active Lactobacillus acidoph-L.bulgar 1 million cell Take by mouth twice a day 1 tablet ORAL December 29, 2024 Active levothyroxine 88 mcg Take by mouth once a day 1 tablet ORAL December 29, 2024 Active linezolid 600 mg Take by mouth twice a day 1 tablet ORAL December 29, 2024 Active mirtazapine 7.5 mg Take by mouth every night at bedtime 1 tablet ORAL December 29, 2024 Active nifedipine 60 mg Take by mouth once a day 1 tablet ORAL December 29, 2024 Active valsartan 160 mg Take by mouth once a day 1 tablet ORAL December 29, 2024 Active Xarelto 2.5 mg Take by mouth twice a day 1 tablet ORAL December 29, 2024 Active VITAL SIGNS Post-Treatment Vital Signs Vital Sign Value Date / Time Blood Pressure-sitting 130/52 mmHg January 18, 2025 10:40 AM Heart Rate 57 beats per minute January 18 10:40 AM Respiratory Rate 20 breaths per minute January 18, 2025 10:40 AM Temperature 97.4 deg. F January 18, 2025 10 :40 AM Weight Vital Sign Value Date / Time Estimated Dry Weight 85.9 kg January 18 11:59 PM Pre-Dialysis 86.70 kg January 18, 2025 10 :40 AM Post-Dialysis 84.70 kg January 18, 2025 10 :40 AM Other Other Value Date / Time Height 160.02 cm December 23, 2024 12 :00 AM Body Mass Index 34.34 kg/m2 January 14, 2025 01 :43 PM HEALTH CONCERNS Tuberculosis Testing TST Date Administered TST Date Read TST Result 12/23/2024 12/25/2024 Negative (<5) mm LAB RESULTS Hematology Result Type Result Value Relevant Referen ce Range Interpretation Date TIBC 209 mcg/dL 185 - 515 mcg/dL - December 21, 2024 Transferrin Sat. (Calc) 21 % 20 - 55 % - December 21, 2024 Folate, Serum 5.2 ng/mL No Reference Ran ge Provided - December 21, 2024 Ferritin 258 ng/mL 10 - 291 ng/mL - December 21 Iron 43 mcg/dL 30 - 160 mcg/dL - December 21, 2024 UIBC (Calc) 166 mcg/dL 155 - 355 mcg/dL - November Platelets 231 1000/mcL 130 - 400 1000/mcL - December 21, 2024 Hemoglobin x 3 32.4 % 36.0 - 48.0 % Low November HGB 10.8 g/dL 12.0 - 16.0 g/dL Low December 21, 2024 HCT 33.5 % 37.0 - 47.0 % Low December 21 MCHC 32.1 g/dL 30.0 - 36.0 g/dL - December 21, 2024 MCH 29.2 pg 27.0 - 31.0 pg - December 21 ABISAI 3.4 % 0.0 - 4.0 % - December 21, 2024 Basophils 0.4 % 0.0 - 1.5 % - December 21, 2024 RBC 3.69 mill/mcL 4.20 - 5.40 mill/mcL Low December 21, 2024 WBC (No Diff) 11.92 1000/mcL 4.80 - 10.80 1000/mcL High December 21, 2024 Eosinophil 4.2 % 0.0 - 7.0 % - December 21, 2024 RDW 15.3 % 11.5 - 14.5 % High December 21 Neutrophils 58.8 % 40.0 - 75.0 % - December 21 Monocytes 3.7 % 3.0 - 10.0 % - December 21 Lymphocytes 29.5 % 19.0 - 48.0 % - December 21 Hemoglobin x 3 32.4 % 36.0 - 48.0 % Low December HGB 10.8 g/dL 12.0 - 16.0 g/dL Low December 28, 2024 Hemoglobin x 3 30.6 % 36.0 - 48.0 % Low December HGB 10.2 g/dL 12.0 - 16.0 g/dL Low January 04, 2025 UIBC (Calc) 30 mcg/dL 155 - 355 mcg/dL Low December Iron 159 mcg/dL 30 - 160 mcg/dL - January 11, 2025 Platelets 124 1000/mcL 130 - 400 1000/mcL Low January 11, 2025 Hemoglobin x 3 27.3 % 36.0 - 48.0 % Low December Transferrin Sat. (Calc) 84 % 20 - 55 % High January 11, 2025 TIBC 189 mcg/dL 185 - 515 mcg/dL - January 11, 2025 Eosinophil 5.2 % 0.0 - 7.0 % - January 11, 2025 Monocytes 2.0 % 3.0 - 10.0 % Low January 11 Lymphocytes 46.3 % 19.0 - 48.0 % - January 11 Neutrophils 43.8 % 40.0 - 75.0 % - January 11 HGB 9.1 g/dL 12.0 - 16.0 g/dL Low January 11, 2025 RDW 14.8 % 11.5 - 14.5 % High January 11 MCHC 33.0 g/dL 30.0 - 36.0 g/dL - January 11, 2025 MCH 28.9 pg 27.0 - 31.0 pg - January 11 HCT 27.6 % 37.0 - 47.0 % Low January 11 RBC 3.15 mill/mcL 4.20 - 5.40 mill/mcL Low January 11, 2025 WBC (No Diff) 14.56 1000/mcL 4.80 - 10.80 1000/mcL High January 11, 2025 ABISAI 2.1 % 0.0 - 4.0 % - January 11, 2025 Basophils 0.5 % 0.0 - 1.5 % - January 11, 2025 Hemoglobin x 3 24.3 % 36.0 - 48.0 % Low December HGB 8.1 g/dL 12.0 - 16.0 g/dL Low January 18, 2025 Metabolic/Renal Result Type Result Value Relevant Reference Range Interpre tation Date URR, Calc 68 % 65 - 80 % - December 21, 2024 Vitamin B12 546 pg/mL 211 - 911 pg/mL - December 21, 2024 BUN, Post 15 mg/dL 6 - 19 mg/dL - December 21 Sodium 140 mEq/L 136 - 145 mEq/L - December 21, 2024 Potassium 4.0 mEq/L 3.5 - 5.1 mEq/L - December 21, 2024 Chloride 105 mEq/L 96 - 108 mEq/L - December 21 025 Bicarbonate 25 mEq/L 20 - 31 mEq/L - December 21 BUN 47 mg/dL 6 - 19 mg/dL High December 21 Creatinine, Serum 2.94 mg/dL 0.60 - 1.30 mg/dL High December 21, 2024 BUN/Creat Ratio 16.0 10.0 - 20.0 - December 21, 2024 BUN, Post 13 mg/dL 6 - 19 mg/dL - January 11 URR, Calc 73 % 65 - 80 % - January 11, 2025 Vitamin B12 554 pg/mL 211 - 911 pg/mL - January 11, 2025 Bicarbonate 26 mEq/L 20 - 31 mEq/L - January 11 025 Chloride 102 mEq/L 96 - 108 mEq/L - January 11 025 Potassium 3.3 mEq/L 3.5 - 5.1 mEq/L Low January 11, 2025 Sodium 141 mEq/L 136 - 145 mEq/L - January 11, 2025 BUN/Creat Ratio 9.8 10.0 - 20.0 Low January 11, 2025 Creatinine, Serum 5.02 mg/dL 0.60 - 1.30 mg/dL High January 11, 2025 BUN 49 mg/dL 6 - 19 mg/dL High January 11 HD Adequacy Result Type Result Value Relevant Referen ce Range Interpretation Date wstdKt/V without residual 0.7 No Reference Range Provided - December 21, 2024 spKt/V ([place]ird[place] II) 1.28 No Referen ce Range Provided - December 21, 2024 eKt/V ([place]) 1.10 No Reference Range Provided - December 21, 2024 wstdKt/V 0.7 No Reference Ran ge Provided - December 21, 2024 wstdKt/V, residual 0.0 No Reference Range Provided - December 21, 2024 wstdKt/V 2.4 No Reference Ran ge Provided - January 11, 2025 spKt/V Gotch 1.43 No Reference Ran ge Provided - January 11, 2025 Krt/V 0.00 No Reference Ran ge Provided - January 11, 2025 wstdKt/V without residual 2.4 No Reference Range Provided - January 11, 2025 spKt/V ([place]augirdas II) 1.45 No Referen ce Range Provided - January 11, 2025 eKt/V ([place]) 1.24 No Reference Range Provided - January 11, 2025 wstdKt/V, residual 0.0 No Reference Range Provided - January 11, 2025 Bone/Mineral Result Type Result Value Relevant Referen ce Range Interpretation Date PTH-Intact, Plasma 171 pg/mL 16 - 80 pg/mL High Nov Vitamin D 25 Hydroxy 12.8 ng/mL 30.0 - 100.0 ng/mL Low December 21, 2024 Corrected Ca x P Product 29 0 - 54 - December 21, 2024 Magnesium 2.0 mg/dL 1.6 - 2.6 mg/dL - December 21, 2024 Alkaline Phosphatase 82 U/L 35 - 104 U/L - 2024 Calcium, Total 8.4 mg/dL 8.7 - 10.4 mg/dL Low December 21, 2024 Phosphorus 3.3 mg/dL 2.6 - 4.5 mg/dL - December 21, 2024 Ca x P Product 28 0 - 54 - December 21 025 Corrected Ca x P Product 34 0 - 54 - January 11, 2025 Ca x P Product 32 0 - 54 - January 11 025 Phosphorus 4.0 mg/dL 2.6 - 4.5 mg/dL - January 11, 2025 Calcium, Total 7.9 mg/dL 8.7 - 10.4 mg/dL Low January 11, 2025 Liver/Nutrition Result Type Result Value Relevant Reference Range Interpre tation Date Globulin (Calc) 2.3 g/dL 2.0 - 4.0 g/dL - December 21, 2024 A/G Ratio 1.5 1.0 - 2.0 - December 21, 2024 Total Protein 5.7 g/dL 6.0 - 8.5 g/dL Low November Albumin (BCG) 3.4 g/dL 3.5 - 5.2 g/dL Low November A/G Ratio 1.7 1.0 - 2.0 - January 11, 2025 Globulin (Calc) 2.0 g/dL 2.0 - 4.0 g/dL - January 11, 2025 Albumin (BCG) 3.3 g/dL 3.5 - 5.2 g/dL Low December Total Protein 5.3 g/dL 6.0 - 8.5 g/dL Low December eNPCR 0.66 No Reference Range Provided - January 11, 2025 Immunochemistry Result Type Result Value Relevant Reference Range Interpre tation Date HCV s/co ratio 0.07 0.00 - 0.79 - December 21, 2024 Trace Elements Result Type Result Value Relevant Reference Range Interpre tation Date Aluminum < 5 mcg/L 0 - 10 mcg/L - December 21 Infectious Diseases Result Type Result Value Relevant Referen ce Range Interpretation Date Hep B core Ab Total (anti-HBc) Negative No Reference Range Provided - December 21, 2024 HCV Ab (anti-HCV) Nonreactive No Reference R heron Provided - December 21, 2024 Hep B Surface Ab (anti-HBs) < 10 mIU/mL No Reference Range Provided - December 21, 2024 Hep B Surface Ag (HBsAg) Negative No Reference Range Provided - January 11, 2025 DIALYSIS PRESCRIPTION Conventional Hemodialysis Data Element Value Order Date/Time January 18, 2025 Frequency 3X Week Treatment Days TueThuSat Dialyzer 180NRe Optiflux Treatment Time (Total Minutes) 210 min Blood Flow Rate (mL/min) 400 mL/min Dialysate Flow Rate Manual 700 Estimated Dry Weight 85.9 kg Dialysate Concentrate 2.0 K, 2.5 Ca, 1.0 Mg, 100 Dextrose (G2251) Sodium (mEq/L) 140 mEq/L Bicarb Machine Setting (mEq/L) 30 mEq/L Dialysis Access Hemodialysis-CV Cath eter-Tunneled, Neck, Right Jugular Access Placed on December 20, 2024 TRANSPLANT WAITLIST STATUS No Information on Transplant Waitlist Status ADVANCE DIRECTIVES Directive Description Ordered By Effective Date Resuscitation status Full Code Ellie Valentine 24, 2025 DIALYSIS TREATMENTS Conventional Hemodialysis Date Pre-Treatment Vitals Post-Treatment Mirta ls Duration (hr) BFR (mL/min) Dialysate Dialyzer Dialysis Access Meds Admin January 13, 2025 Weight 88.00 kg Weight 87.90 kg 03:31:00 400 2.0 K, 2.5 Ca, 1.0 Mg, 100 Dextrose (G2251) 180nre Optifl ux Blood Pressure-sitting 122/46 mmHg Blood Pressure-sit ting 126/58 mmHg Heart Rate 74 beats per minute Heart Rate 61 beats per minute Respiratory Rate 18 breaths per minute Respiratory Rate 18 breaths per minute Temperature 97.1 deg. F Temperature 97.4 deg. F January 15, 2025 Weight 87.70 kg Weight 85.90 kg 03:32:00 400 2.0 K, 2.5 Ca, 1.0 Mg, 100 Dextrose (G2251) 180nre Optiflux Hemodialysis-CV Catheter-Tunneled, Neck, Right Jugular Access Placed on December 20, 2024 Heparin Sodium (Porcine) 1,000 Units/mL Catheter Lock Arterial; 1600units,Arterial Red Port Heparin Sodium (Porcine) 1,000 Units/mL Catheter Lock Venous; 1600units,Venous Blue Port Iron Sucrose (Venofer); 100mg,Intravenous - push Mircera; 50mcg,Intravenous - push Blood Pressure-sitting 114/51 mmHg Blood Pressure-sit ting 116/51 mmHg Heart Rate 70 beats per minute Heart Rate 60 beats per minute Respiratory Rate 20 breaths per minute Respiratory Rate 20 breaths per minute Temperature 97.4 deg. F Temperature 97.7 deg. F January 18, 2025 Weight 86.70 kg Weight 84.70 kg 03:32:00 400 2.0 K, 2.5 Ca, 1.0 Mg, 100 Dextrose (G2251) 180nre Optiflux Hemodialysis-CV Catheter-Tunneled, Neck, Right Jugular Access Placed on December 20, 2024 Heparin Sodium (Porcine) 1,000 Units/mL Catheter Lock Arterial; 1600units,Arterial Red Port Heparin Sodium (Porcine) 1,000 Units/mL Catheter Lock Venous; 1600units,Venous Blue Port Blood Pressure-sitting 103/43 mmHg Blood Pressure-sit ting 130/52 mmHg Heart Rate 79 beats per minute Heart Rate 57 beats per minute Respiratory Rate 20 breaths per minute Respiratory Rate 20 breaths per minute Temperature 97.4 deg. F Temperature 97.4 deg. F
--- OUTSIDE RECORDS SUMMARY | 2025-01-19 12:00 | XMS_ITS | Patient Health Record ---
Author Organization [facility] [place] Address [address] [address] Care Team Providers Care Gravedigger Name Role Phone MARY GOODWIN Primary Care Provider [phone] Ariana Puente Unavailable [phone] Reason For Referral No Information Medications Medication SIG (Take, Route, Frequency, Duration) Notes Start Date End Date Status HYDROcodone-Acetaminophen 5-325 MG 1 tablet as needed Orally EVERY 8 HOURS for 1 days FOR EMERGENCY DISPENSING EBOX USAGE ON 12/21/2024 12/22/2024 Active clonazePAM 0.5 MG 1/2 TABLET (0.25MG)A S NEEDED Orally EVERY 12 HOURS for 28 days 12/22/2024 Active Gabapentin 300 MG 1 capsule Orally AT BEDTIME for 28 days 12/22/2024 Active Problems Problem Type SNOMED Code ICD Code Onset Dates Problem Status W/U Status Risk Notes Problem Methicillin resistant Staphylococcus aureus infection (352635347) Methicillin resistant Staphylococcus aureus infection as the cause of diseases classified elsewhere (B95.62) Active confirmed Problem Diabetic renal disease (871212331) 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 confirmed Problem Foot ulcer due to type 2 diabetes mellitus (0765635697059) Type 2 diabetes mellitus with foot ulcer (E11.621) Active confirmed Problem Iron deficiency (08193246) Iron deficiency (E61.1) Active confirmed Problem Mixed hyperlipidemia (204151025) Mixed hyperlipidemia (E78.2) Active confirmed Problem Cellulitis of right lower limb (0843748236652483 4) Cellulitis of right lower limb (L03.115) Active confirmed Problem Cellulitis of left lower limb (2376988086359058 9) Cellulitis of left lower limb (L03.116) Active confirmed Problem 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) Active confirmed Problem End stage renal disease (56407699) End stage renal disease (N18.6) Active confirmed Problem Anxiety (94081918) Anxiety (F41.9) Active confirmed Problem Benign essential hypertension (5277862) Benign essential hypertension (I10) Active confirmed Problem Hypothyroidism (72469327) Hypothyroidism (E03.9) Active confirmed Problem Primary osteoarthritis (334145630) Primary osteoarthritis involving multiple joints (M15.0) Active confirmed Problem Peripheral vascular disease (636797841) Peripheral vascular disease (I73.9) Active confirmed Problem Nephrotic syndrome (44640749) Nephrotic syndrome (N04.9) Active confirmed Problem Dependence on hemodialysis (366227715) Dependence on hemodialysis (Z99.2) Active confirmed Problem Acute metabolic acidosis (E87.21) Active confirmed Encounters Encounter Location Date Provider Diagnosis [facility] [place] [address] 12/22/2024 Ariana Puente [facility] [place] [address] 12/22/2024 Ariana Puente Plan Of Treatment No Information Insurance Providers Payer Name Payer Address Payer Phone Subscriber Number Group Number Insured Name Patient Relationship to Insured Coverage Start Date Coverage End Date [employer] [address] [address] [place] [address] [id number] STACEY BOYD Self - patient is the insured
[2025-01-19] MEDS: ISOTOPE MYOVIEW (PER STUDY) 1 DOSE IV (13:42)
[2025-01-19] MEDS: SODIUM CHLORIDE 0.9% 10ML SYR (RAD ONLY) 10 ML IV ×2 (13:42)
== END 2025-01-19 23:59 | disposition home or self-care (01) ==
LOC: RAD 11:57
PROVIDERS: PCP Internal Medicine Adolescent Medicine; Visit Provider Nurse Practitioner Family
DX: R94.39 Abnormal result of other cardiovascular function study (principal); R42 Dizziness and giddiness; I10 Essential (primary) hypertension; R94.31 Abnormal electrocardiogram [ECG] [EKG]; R06.09 Other forms of dyspnea; E11.9 Type 2 diabetes mellitus without complications; E78.00 Pure hypercholesterolemia, unspecified
CPT/HCPCS: 78452; 93016; 93017; 93018; A9502; J2785

== ENCOUNTER 2025-01-30 16:55 | Emergency (ER) | payer MEDICARE, SELFPAY ==
--- OUTSIDE RECORDS SUMMARY | 2024-12-28 04:00 | XMS_ITS ---
Author Organization [facility] [place] Address [address] [place] [address] [place] [address] Care Team Providers Care Ophthalmology Technician Name Role Phone MARY GOODWIN Primary Care Provider [phone] REASON FOR VISIT [facility] DC 12/20 Problems Problem Type SNOMED Code ICD Code Onset Dates Problem Status W/U Status Risk Notes Problem Iron deficiency (28410065) Iron deficiency (E61.1) Active confirmed Problem 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) Active confirmed Problem Nephrotic syndrome (45127497) Nephrotic syndrome (N04.9) Active confirmed Problem Foot ulcer due to type 2 diabetes mellitus (6971396024185) Type 2 diabetes mellitus with foot ulcer (E11.621) Active confirmed Encounters Encounter Location Date Provider Diagnosis [facility] [place] [address] [place], [place] [id number] 12/28/2024 MARY GOODWIN Plan Of Treatment No Information Progress Notes * STACEY BOYD PDOB:[birth year] (74 yo F)Acc No.[id number]:12/28/2024 Progress Note Patient: Melania LANDRUMSTACEY SPANGLER Provider: Damon GOODWIN M.D., F.A.C.P. :1950 A ge:74 Y S ex:Female Date:12/28/2024 Address:[address] [place], [place] [address] Subjective: * Chief Complaints: * 1 . [facility] DC 12/20. * Medical History: Objective: * Vitals: Assessment: Plan: * Treatment: * * Electronic signature of GLEN GOODWIN MD on 01/30/2025 at 05:03 PM EDT Sign off status: Pending * Provider: Damon GOODWIN M.D., F.A.C.P. Date: 12/28/2024 Generated for Sandy braxton/Donald/Sheyla on: 01/30/2025 05:03 PM EDT
--- OUTSIDE RECORDS SUMMARY | 2025-01-27 10:13 | XMS_ITS | Encounter Summary ---
Author Organization [employer] ([place], [place], [place], [place]) Address [address] [place] [address] Care Team Providers Care Line Locator Name Role Phone Ellie Powell MD Primary Care Provider [phone] Reason for Visit * Reason Comments Generalized Weakness, Not As sociated With Extremities Decreased po intake, lost 60 lbs in 6 months. Weakness x several days. N/V occasionally. Encounter Details Date Type Department Care Team (Late st Contact Info) Description 01/27/2025 10:13 AM EDT - 01/27/2025 6:00 PM EDT Emergency [facility] Emergency Department [address] [place] [phone] Stef Senior DO [address] [place] [address] Generalized weakness (Primary Dx); Anemia, unspecified type Discharge Disposition: [facility] Social History Tobacco Use Types Packs/Day Years Used Date Smoking Tobacco: Never Smokeless Tobacco: Never Tobacco Cessation:Counseling Given: Not Answered Alcohol Use Standard Drinks/Week Comments Never 0 (1 standard drink = 0.6 oz pur e alcohol) Comments Unknown Sex and Gender Information Value Date Recorded Sex Assigned at Not on file Legal Sex Female 3:01 PM CDT Gender Identity Not on file Sexual Orientation Not on file documented as of this encounter Last Filed Vital Signs Vital Sign Reading Time Taken Comments Blood Pressure 140/67 01/27/2025 5:45 PM EDT Pulse 62 01/27/2025 5:45 PM EDT Temperature 36.8 C (98.2 F) 01/27/2025 5:15 PM EDT Respiratory Rate 20 01/27/2025 5:15 PM EDT Oxygen Saturation 93% 01/27/2025 5:45 PM EDT Inhaled Oxygen Concentration - - Weight 81.2 kg (179 lb) 01/27/2025 10:15 AM EDT Height 172.7 cm (5' 8 ) 01/27/2025 10:15 AM EDT Body Mass Index 27.22 01/27/2025 10:15 AM EDT documented in this encounter Discharge Instructions * Attachments The following attachments cannot be sent through Care Everywhere. * Anemia (Setswana) documented in this encounter ED Notes * Michael Stlil RN - 01/27/2025 6:12 PM EDT EMS given written discharge instructions to give to [facility]. Patient Patient was alert and oriented x 4 at discharge and vital signs were stable. Patient transported in stretcher. All belongingswere returned to patient. Michael Still RN 01/27/251813 * Stef Senior DO - 01/27/2025 10:26 AM EDTAssociated Order(s): Critical Care Subjective Chief Complaint: Generalized Weakness, Not Associated With Extremities (Decreased po intake, lost 60 lbs in 6 months. Weakness x several days. N/V occasionally. ) Pleasant 74-year-old female presents emerged from today from [facility] facility for evaluation of weakness. Patient reports feeling weak and unwell for the last several days. She has also had nausea and vomiting. She has some shortness of breath as well as orthopnea. She denies any abdominal pain. Denies any fevers or chills denies any chest pain. Denies any bloody stools. Patient does havehistory of end-stage renal disease and undergoes hemodialysis. She has not had dialysis since Friday. She was supposed to go today. On arrival to the emergency department she is awake alert and oriented with no signs of acute distress. History provided by: Patient and EMS personnel translator/interpreter used: No Generalized Weakness, Not Associated With Extremities Patient History Past Medical History: Diagnosis Date CHF (congestive heart failure) (HCC) Diabetes mellitus (HCC) Hypertension Renal disorder Past Surgical History: Procedure Laterality Date CHOLECYSTECTOMY HYSTERECTOMY No family history on file. Social History Tobacco Use Smoking status: Never Smokeless tobacco: Never Substance Use Topics Alcohol use: Never I reviewed the HPI, ROS and PFSH documentation recorded by others in the medical record and supplemented my note as needed. Review of Systems Review of Systems All other systems reviewed and are negative. Physical Exam ED Triage Vitals [01/27/25 1015] Encounter Vitals Group BP 117/56 Systolic BP Percentile Diastolic BP Percentile Pulse 71 Resp Temp 97.1 ??F (36.2 ??C) Temp src Temporal Art SpO2 93 % Weight 81.2 kg (179 lb) Height 1.727 m (5' 8 ) Head Circumference Peak Flow Pain Score Zero Pain Loc Pain Education Exclude from Growth Chart Physical Exam Vitals and nursing note reviewed. Constitutional: General: She is not in acute distress. Appearance: She is not toxic-appearing. HENT: Head: Normocephalic and atraumatic. Nose: Nose normal. Mouth/Throat: Mouth: Mucous membranes are moist. Eyes: Extraocular Movements: Extraocular movements intact. Pupils: Pupils are equal, round, and reactive to light. Cardiovascular: Rate and Rhythm: Normal rate and regular rhythm. Pulmonary: Effort: Pulmonary effort is normal. Breath sounds: Normal breath sounds. Abdominal: General: There is no distension. Palpations: Abdomen is soft. Tenderness: There is no abdominal tenderness. There is no guarding. Musculoskeletal: Cervical back: Normal range of motion and neck supple. Comments: Patient has pitting edema to the bilateral lower extremities Skin: General: Skin is warm and dry. Capillary Refill: Capillary refill takes less than 2 seconds. Neurological: General: No focal deficit present. Mental Status: She is alert and oriented to person, place, and time. Neurological Exam Mental Status Alert. Oriented to person, place, and time. Cranial Nerves CN III, IV, : Extraocular movements intact bilaterally. Pupils equal round and reactive to light bilaterally. Ortho Exam ED Course & MDM Medications sodium chloride 0.9 % infusion (20 mL/hr intravenous New Bag 01/27/25 6505) ondansetron (ZOFRAN) injection 4 mg (4 mg intravenous Given 01/27/25 1031) magnesium oxide (MAG-OX) tablet 400 mg (400 mg oral Given 01/27/25 1157) Results for orders placed or performed during the hospital encounter of 01/27/25 CBC with Auto Diff Result Value Ref Range WBC 14.1 (H) 4.8 - 10.8 K/??L RBC 2.47 (L) 3.50 - 5.20 M/??L Hemoglobin 7.0 (L) 11.7 - 15.8 GM/DL Hematocrit 21.0 (L) 35.0 - 47.0 % MCV 85 81 - 101 fL MCH 28.3 27.0 - 34.0 pg MCHC 33.3 32.0 - 36.0 GM/DL RDW 15.9 (H) 11.5 - 14.5 % Platelets 136 (L) 150 - 400 K/CU MM MPV 10.3 9.4 - 12.4 fL Nucleated Red Blood Cell 0.0 0 - 0.2 % NRBC Absolute <0.01 0 - 0.012 K/ul Comprehensive metabolic panel Result Value Ref Range Sodium 138 136 - 145 meq/L Potassium 3.6 3.5 - 5.1 meq/L Chloride 102 98 - 107 meq/L CO2 28 21 - 32 meq/L Calcium 7.8 (L) 8.5 - 10.1 mg/dL Glucose 126 (H) 74 - 100 mg/dL BUN 49 (H) 7 - 18 mg/dL Creatinine 3.60 (H) 0.55 - 1.10 mg/dL BUN/Creatinine 14 Albumin 2.6 (L) 3.4 - 5.0 g/dL Alkaline Phosphatase 82 46 - 116 U/L ALT 22 12 - 78 U/L AST 31 15 - 37 U/L Total Bilirubin 0.4 0.2 - 1.0 mg/dL Protein, Total 5.2 (L) 6.4 - 8.2 gm/dL Anion Gap 12 11 - 22 A/G Ratio 1.0 Globulin 2.6 g/dL Osmolality Calc 290.2 mOsm/kg eGFR (mL/min/1.73m2) 13 (L) >=60 mL/min/1.73m2 Magnesium Result Value Ref Range Magnesium 1.7 (L) 1.8 - 2.4 mg/dL High Sensitivity Troponin I Result Value Ref Range Troponin I High Sensitivity (pg/mL) 20.8 4 - 60.3 pg/mL PROBNP Result Value Ref Range ProBNP (pg/mL) 5,368 (H) 5 - 450 pg/mL Blue Top Extra Tubes Result Value Ref Range HOLD SPECIMEN (SJ - BKR) Hold for add-ons. Red Top Extra Tubes Result Value Ref Range HOLD SPECIMEN (SJ - BKR) Hold for add-ons. Manual Differential Result Value Ref Range Total Counted 100 % Neutros (manual) 55 15 - 67 % % Lymphs (manual) 40 10 - 50 % % Monos (manual) 2 2 - 10 % % Eos (manual) 1 0 - 7 % % Baso (manual) 2 0 - 2 % Variant LY Present (A) (none) Platelet Estimate Adequate Adequate Smudge Cells Present ANC# 7.76 K/??L ECG 12 lead Result Value Ref Range VENTRICULAR RATE EKG/MIN 68 BPM ATRIAL RATE (MCT) 68 BPM MN Interval 120 ms QRS-INTERVAL (MSEC) 98 ms QT Interval 456 ms QTC Interval 484 ms P [place] 58 degrees R AXIS (MCT) -42 degrees T Wave [place] 69 degrees [place] Diagnosis Normal sinus rhythm Left axis deviation Cannot rule out Anterior infarct , age undetermined Abnormal ECG No previous ECGs available Confirmed by Nikole HYATT RICHARD ([id number]) on 01/27/2025 12:29:56 PM Type and Screen Result Value Ref Range ABO/Rh A POSITIVE Antibody Screen NEGATIVE HISTCHK HIST CHECK PERFORMED Prepare RBC: 1 Units Result Value Ref Range Issue Date/Time [id number] Product Identification Red Blood Cells Product Code [id number] Status Information Transfused Unit Number [id number] Blood Type 6200 Cross Match Results Compatible ABO/RH CONFIRMATION/RETYPE Result Value Ref Range RETYPE A POSITIVE XR chest 1 view portable / bedside Final Result Bibasilar atelectasis. Mild cardiomegaly. Images reviewed, interpreted, and dictated by Dr. Richy Reddy. Transcribed by Laura Berry PA-C. ED Course as of 01/27/25 1741 [place] Jan 27, 2025 1037 EKG reviewed and interpreted by myself My interpretation: Sinus rhythm, rate of 68, no acute ST elevation [SONY] 1121 Chest x-ray reviewed and interpreted by myself My interpretation: No obvious large consolidation or effusion [SONY] [address] Chavez, electrical controls technician on-call. Was also able to determine. The dialysis center that patient's hemoglobin last week was 8.1. Dr. Chavez recommends giving patient 1 unit packed redblood cells sending back to the [facility]. [SONY] 1223 Patient reports feeling okay. She says she has not really had much of an appetite for the lastcouple of weeks. Not complaining of any abdominal pain not actively nauseous at the moment. She is not short of breath. Discussed with patient and family at bedside plan for blood transfusion and discharge back to prison and they are currently in agreement with this. [SONY] 1321 jail called stating they had an order for IV antibiotics for patient's foot ulcers. Patient has chronic foot ulcers. Family tells me that patient has had these for some time. She has dressing on both feet. I did remove the dressing and examine the ulcers. Patient does have ulcers on both heels as well as an ulcer on the top of the right foot. There does not appear to be any surrounding cellulitis or purulent drainage. Patient does not have any swelling of the foot. At this time I am not concerned that these are acutely infected. [SONY] 1740 Patient is feeling better. She is not short of breath she is comfortable. She has received 1 unit of packed red blood cells. Patient will be discharged back to [facility] facility. [SONY] ED Course User Index [SONY] Stef Senior DO Critical Care Performed by: Stef Senior DO Authorized by: Stef Senior DO Critical care provider statement: Critical care time (minutes): 30 Critical care was necessary to treat or prevent imminent or life-threatening deterioration of the following conditions: Anemia requiring blood transfusion. Critical care was time spent personally by me on the following activities: Discussions with consultants, ordering and review of laboratory studies, ordering and review of radiographic studies, re-evaluation of patient's condition, examination of patient and review of old charts Medical Decision Making Differential diagnosis includes hypervolemia, electrolyte disturbance, pulmonary edema, urinary tract infection Amount and/or Complexity of Data Reviewed Labs: ordered. Decision-making details documented in ED Course. Radiology: ordered and independent interpretation performed. Decision-making details documented in ED Course. ECG/medicine tests: ordered and independent interpretation performed. Decision- making details documented in ED Course. Risk OTC drugs. Prescription drug management. Assessment & Plan Clinical Impression Diagnosis Comment Added By Time Added Generalized weakness Stef Senior DO 01/27/2025 2:39 PM Anemia, unspecified type Stef Senior DO 01/27/2025 2:39 PM Disposition Discharge [1] - 01/27/2025 2:39 PM New Prescriptions No medications on file Contact information for follow-up Ellie Powell MD Specialty: Nephrology, Internal Medicine, Hospitalist Relationship: PCP - General [address] [place] [phone] Next Steps: Follow up Electronically Signed By Stef Senior DO 01/27/25 1741 * Jolene Solis RN - 01/27/2025 10:13 AM EDT Bed: [facility] Expected date: 01/27/25 Expected time: Means of arrival: Comments: [facility] Jolene Solis RN 01/27/25 1013 documented in this encounter Plan of Treatment Pending Results Name Type Priority Associated Diagnoses Date /Time Peripheral Smear Path Review Lab Routine 01/27/2025 10:24 AM EDT Scheduled Orders Name Type Priority Associated Diagnoses Orde r Schedule Peripheral Smear Path Review Lab STAT Once for 1 Occur rences starting 01/27/2025 until 01/27/2025 documented as of this encounter Procedures Procedure Name Priority Date/Time Associated Diagnosis Comments FS_MODEL_IP_TRANSFUSE RED BLOOD CELLS Routine 01/27/2025 2:12 PM EDT TYPE AND SCREEN (NAHED BKR) STAT 01/27/2025 1:06 PM EDT ABO/RH CONFIRMATION/RETYPE ([place] BKR) STAT 01/27/2025 12:32 PM EDT FS_MODEL_IP_PREPARE RBC STAT 01/27/2025 12:11 PM EDT XR CHEST 1 VIEW PORTABLE / BEDSIDE STAT 01/27/2025 10:55 AM EDT FS_[facility]_MODEL CRITICAL CARE Routine 01/27/2025 10:26 AM EDT [place] RED TOP (EXTRA TUBES) STAT 01/27/2025 10:24 AM EDT [place] BLUE TOP (EXTRA TUBES) STAT 01/27/2025 10:24 AM EDT [place] EXTRA TUBES STAT 01/27/2025 10:24 AM EDT CBC W/ AUTO DIFF STAT 01/27/2025 10:2 4 AM EDT MANUAL DIFFERENTIAL Routine 01/27/2025 1 0:24 AM EDT HIGH SENSITIVITY TROPONIN I STAT 01/27/2025 10:24 AM EDT PROBNP STAT 01/27/2025 10:24 AM EDT MAGNESIUM STAT 01/27/2025 10:24 AM EDT COMPREHENSIVE METABOLIC PANEL STAT 01/27/2025 10:24 AM EDT FS_MODEL_IP_ECG 12-LEAD STAT 01/27/2025 10:18 AM EDT documented in this encounter Results * Transfuse RBC (01/27/2025 5:30 PM EDT) us Stef Senior DO FS_MODEL_IP_BLOOD TRANSFUSION OR DERABLES Final Result * Transfuse RBC: 1 Units (01/27/2025 5:30 PM EDT) us Stef Senior DO FS_MODEL_IP_BLOOD TRANSFUSION OR DERABLES Final Result * Type and Screen (01/27/2025 1:06 PM EDT) ABO/Rh A POSITIVE 01/27/2025 12:11 PM EDT [facility] ([place]) Antibody Screen NEGATIVE 01/27/2025 12:11 PM EDT [facility] BLOOD [facility] ([place]) HISTCHK HIST CHECK PERFORMED 01/27/2025 12:11 PM EDT [facility] ([place]) Blood Venipuncture / Unknown 01/27/2025 1:06 PM EDT 01/27/2025 1:20 PM EDT [facility] BLOOD [facility] TEST ORDERABLES E dited Result - Final [facility] ([place]) [address] [facility] [place] [address], [facility] [phone] * ABO/RH CONFIRMATION/RETYPE (01/27/2025 12:32 PM EDT) RETYPE A POSITIVE 01/27/2025 12:34 PM EDT [facility] ([place]) Blood Venipuncture / Unknown 01/27/2025 12:32 PM EDT 01/27/2025 12:32 PM EDT [facility] BLOOD [facility] TEST ORDERABLES F inal Result [facility] ([place]) [address] [facility] [place] [address], [facility] [phone] * Prepare RBC: 1 Units (01/27/2025 12:11 PM EDT) Issue Date/Time [id number] [facility] ([place]) Product Identification Red Blood Cells [facility] ([place]) Product Code [id number] [facility] ([place]) Status Information Transfused [facility] ([place]) Unit Number [id number] LEONORA Greyson [facility] BLOOD [facility] ([place]) Blood Type 6200 [facility] BLOOD [facility] ([place]) Cross Match Results Compatible [facility] (NAHED) Stef Senior DO FS_MODEL_IP_BLOOD BANK PRODUCT O RDERABLES Final Result [facility] ([place]) [address] [place], [facility], [facility] [phone] * XR chest 1 view portable / bedside (01/27/2025 10:55 AM EDT) Anatomical Region Laterality Modality X-Ray 01/27/2025 1:53 PM EDT Impressions 01/27/2025 1:59 PM EDT Bibasilar atelectasis. Mild cardiomegaly. Images reviewed, interpreted, and dictated by Dr. Richy Reddy. Transcribed by Laura Berry PA-C. Narrative 01/27/2025 1:59 PM EDT PORTABLE CHEST 01/27/2025 10:20 AM HISTORY: Difficulty breathing, weight loss, weakness. COMPARISON: None. FINDINGS: The heart size is mildly enlarged. A right IJ dialysis catheter tip terminates in SVC. There is bibasilar atelectasis. There is no pneumothorax . Procedure Note Richy Reddy MD - 01/27/2025 PORTABLE CHEST 01/27/2025 10:20 AM HISTORY: Difficulty breathing, weight loss, weakness. COMPARISON: None. FINDINGS: The heart size is mildly enlarged. A right IJ dialysis catheter tip terminates in SVC. There is bibasilar atelectasis. There is no pneumothorax . IMPRESSION: Bibasilar atelectasis. Mild cardiomegaly. Images reviewed, interpreted, and dictated by Dr. Richy Reddy. Transcribed by Laura Berry PA-C. us Stef Senior DO IMG DIAGNOSTIC IMAGING ORDERABLE S Final Result * Critical Care (01/27/2025 10:26 AM EDT) Narrative Stef Senior DO - 01/27/2025 10:26 AM EDT Stef Senior DO 01/27/2025 5:41 PM Critical Care Performed by: Stef Senior DO Authorized by: Stef Senior DO Critical care provider statement: Critical care time (minutes): 30 Critical care was necessary to treat or prevent imminent or life-threatening deterioration of the following conditions: Anemia requiring blood transfusion. Critical care was time spent personally by me on the following activities: Discussions with consultants, ordering and review of laboratory studies, ordering and review of radiographic studies, re-evaluation of patient's condition, examination of patient and review of old charts us Stef Senior DO PROCEDURE/MINOR SURGICAL ORDERAB LES Final Result * (ABNORMAL) Manual Differential (01/27/2025 10:24 AM EDT) Total Counted 100 01/27/2025 11:00 AM EDT [facility] % Neutros (manual) 55 15 - 67 % 01/27/2025 11:00 AM EDT [facility] % Lymphs (manual) 40 10 - 50 % 01/27/2025 11:00 AM EDT [facility] % Monos (manual) 2 2 - 10 % 01/27/2025 11:00 AM EDT [facility] % Eos (manual) 1 0 - 7 % 01/27/2025 11:00 AM EDT [facility] % Baso (manual) 2 0 - 2 % 01/27/2025 11:00 AM EDT [facility] Variant LY Present(A) (none) 01/27/2025 11:00 AM EDT [facility] Platelet Estimate Adequate Adequate 01/27/2025 11:00 AM EDT [facility] Smudge Cells Present 01/27/2025 11:00 AM EDT [facility] ANC# 7.76 K/ L 01/27/2025 11:00 AM EDT [facility] Blood Venipuncture / Unknown 01/27/2025 10:24 AM EDT 01/27/2025 10:30 AM EDT Stef Senior DO LAB BLOOD ORDERABLES Final Resul t [facility] [address] [place] [address] * Red Top Extra Tubes (01/27/2025 10:24 AM EDT) HOLD SPECIMEN (SJ - BKR) Hold for add-ons. 01/27/2025 12:00 PM EDT [facility] Comment:Auto resulted. Blood Venipuncture / Unknown 01/27/2025 10:24 AM EDT 01/27/2025 10:30 AM EDT us Stef Senior DO LAB BLOOD ORDERABLES Final Resul t Performing Organization Address [facility] de Phone Number [facility] [address] [place] [address] * Blue Top Extra Tubes (01/27/2025 10:24 AM EDT) HOLD SPECIMEN (SJ - BKR) Hold for add-ons. 01/27/2025 12:00 PM EDT [facility] Comment:Auto resulted. Blood Venipuncture / Unknown 01/27/2025 10:24 AM EDT 01/27/2025 10:30 AM EDT us Stef Senior DO LAB BLOOD ORDERABLES Final Resul t Performing Organization Address [facility] Co de Phone Number [facility] [address] [place] [address] * (ABNORMAL) PROBNP (01/27/2025 10:24 AM EDT) ProBNP (pg/mL) 5,368(H) 5 - 450 pg/mL 01/27/2025 11:02 AM EDT [facility] Blood Venipuncture / Unknown 01/27/2025 10:24 AM EDT 01/27/2025 10:30 AM EDT [facility] LAB BLOOD ORDERABLES Final Resul t Performing Organization Address [facility] Co de Phone Number [facility] [address] [phone] * High Sensitivity Troponin I (01/27/2025 10:24 AM EDT) Troponin I High Sensitivity (pg/mL) 20.8 4 - 60.3 pg/mL 01/27/2025 11:02 AM EDT [facility] Comment: Troponin Result (pg/mL) *Interpretation 4-60.3 *Normal; less than 99th percentile of normal range >60.3 *Abnormal; greater than 99th percentile of normal range Biotin specimen concentration >300 ng/mL may lead to falsely depressed results for patient samples. Do not use this test for renal dysfunction patients (eGFR <60) unless it is confirmed that the patient is not taking Biotin. Blood Venipuncture / Unknown 01/27/2025 10:24 AM EDT 01/27/2025 10:30 AM EDT [facility] LAB BLOOD ORDERABLES Final Resul t Performing Organization Address [facility] de Phone Number [facility] [address] [place] [address] * (ABNORMAL) Magnesium (01/27/2025 10:24 AM EDT) Magnesium 1.7(L) 1.8 - 2.4 mg/dL 01/27/2025 11:02 AM EDT [facility] Blood Venipuncture / Unknown 01/27/2025 10:24 AM EDT 01/27/2025 10:30 AM EDT [facility] LAB BLOOD ORDERABLES Final Resul t Performing Organization Address City/[facility] Co de Phone Number [facility] [address] [phone] * (ABNORMAL) Comprehensive metabolic panel (01/27/2025 10:24 AM EDT) Sodium 138 136 - 145 meq/L 01/27/2025 11:03 AM EDT [facility] Potassium 3.6 3.5 - 5.1 meq/L 01/27/2025 11:03 AM EDT [facility] Chloride 102 98 - 107 meq/L 01/27/2025 11:03 AM EDT [facility] CO2 28 21 - 32 meq/L 01/27/2025 11:03 AM EDT [facility] Calcium 7.8(L) 8.5 - 10.1 mg/dL 01/27/2025 11:03 AM EDT [facility] Glucose 126(H) 74 - 100 mg/dL 01/27/2025 11:03 AM EDT [facility] BUN 49(H) 7 - 18 mg/dL 01/27/2025 11:03 AM EDT [facility] Creatinine 3.60(H) 0.55 - 1.10 mg/dL 01/27/2025 11:03 AM EDT [facility] BUN/Creatinine 14 01/27/2025 11:03 AM EDT [facility] Albumin 2.6(L) 3.4 - 5.0 g/dL 01/27/2025 11:03 AM EDT [facility] Alkaline Phosphatase 82 46 - 116 U/L 01/27/2025 11:03 AM EDT [facility] ALT 22 12 - 78 U/L 01/27/2025 11:03 AM EDT [facility] AST 31 15 - 37 U/L 01/27/2025 11:03 AM EDT [facility] Total Bilirubin 0.4 0.2 - 1.0 mg/dL 01/27/2025 11:03 AM EDT [facility] Protein, Total 5.2(L) 6.4 - 8.2 gm/dL 01/27/2025 11:03 AM EDT [facility] Anion Gap 12 11 - 22 01/27/2025 11:03 AM EDT [facility] A/G Ratio 1.0 01/27/2025 11:03 AM EDT [facility] Globulin 2.6 g/dL 01/27/2025 11:03 AM EDT [facility] Osmolality Calc 290.2 mOsm/kg 11:03 AM EDT [facility] eGFR (mL/min/1.73m2) 13(L) >=60 mL/min/1.7 3m2 01/27/2025 11:03 AM EDT [facility] Comment:ESTIMATED GFR IS NOT ACCURATE CREATININE CLEARANCE IN PREDICTING GLOMERULAR FILTRATION RATE. ESTIMATED GFR IS NOT APPLICABLE FOR DIALYSIS PATIENTS. Blood Venipuncture / Unknown 01/27/2025 10:24 AM EDT 01/27/2025 10:30 AM EDT us Stef Senior DO LAB BLOOD ORDERABLES Final Resul t Performing Organization Address City/State/[facility] Co de Phone Number [facility] [address] [place] [address] * (ABNORMAL) CBC with Auto Diff (01/27/2025 10:24 AM EDT) WBC 14.1(H) 4.8 - 10.8 K/ L 01/27/2025 10:40 AM EDT [facility] RBC 2.47(L) 3.50 - 5.20 M/ L 01/27/2025 10:40 AM EDT [facility] Hemoglobin 7.0(L) 11.7 - 15.8 GM/DL 01/27/2025 10:40 AM EDT [facility] Hematocrit 21.0(L) 35.0 - 47.0 % 01/27/2025 10:40 AM EDT [facility] MCV 85 81 - 101 fL 01/27/2025 10:40 AM EDT [facility] MCH 28.3 27.0 - 34.0 pg 01/27/2025 10:40 AM EDT [facility] MCHC 33.3 32.0 - 36.0 GM/DL 01/27/2025 10:40 AM EDT [facility] RDW 15.9(H) 11.5 - 14.5 % 01/27/2025 10:40 AM EDT [facility] Platelets 136(L) 150 - 400 K/CU MM 01/27/2025 10:40 AM EDT [facility] MPV 10.3 9.4 - 12.4 fL 01/27/2025 10:40 AM EDT [facility] Nucleated Red Blood Cell 0.0 0 - 0.2 % 01/27/2025 10:40 AM EDT [facility] NRBC Absolute <0.01 0 - 0.012 K/ul 01/27/2025 10:40 AM EDT [facility] Blood Venipuncture / Unknown 01/27/2025 10:24 AM EDT 01/27/2025 10:30 AM EDT Narrative [facility] - 01/27/2025 10:40 AM EDT When CBC w/ Auto Diff is ordered the lab will add a Manual Differential as a quality check at no additional charge if: Lymphocytes greater than seventy five percent with normal or increased WBC Monocytes greater than Fifteen percent Basophil greater than four percent Bands >10% or several immature myeloids are seen on scan Blast? Flag noted Atypical Lymph flag noted us Stef Senior DO LAB BLOOD ORDERABLES Final Resul t [facility] [address] [place] [address] * ECG 12 lead (01/27/2025 10:18 AM EDT) VENTRICULAR RATE EKG/MIN 68 BPM GE MUSE ATRIAL RATE (MCT) 68 BPM GE MUSE MN Interval 120 ms GE MUSE QRS-INTERVAL (MSEC) 98 ms GE MUSE QT Interval 456 ms GE MUSE QTC Interval 484 ms GE MUSE P [place] 58 degrees GE MUSE R AXIS (MCT) -42 degrees GE MUSE T Wave [place] 69 degrees GE MUSE [place] Diagnosis Normal sinus rhythm Left axis deviation Cannot rule out Anterior infarct , age undetermined Abnormal ECG No previous ECGs available Confirmed by Nikole HYATT RICHARD ([id number]) on 01/27/2025 12:29:56 PM GE MUSE 01/27/2025 10:1 8 AM EDT 01/27/2025 12:29 PM EDT us Stef Senior DO ECG ORDERABLES Final Result GE SUHAIL documented in this encounter Visit Diagnoses Diagnosis Generalized weakness- Primary Anemia, unspecified type documented in this encounter Administered Medications Inactive Administered Medications - up to 3 most recent administrations Medication Order MAR Action Action Date Dose Rate Site magnesium oxide (MAG-OX) tablet 400 mg 400 mg Once, oral, [place] 01/27/25 at 1125, For 1 dose Given 01/27/2025 11:57 AM EDT 400 mg ondansetron (ZOFRAN) injection 4 mg 4 mg Once, intravenous, [place] 01/27/25 at 1025, For 1 dose, For IV push, give over 2 - 5 minutes. Given 01/27/2025 10:31 AM EDT 4 mg sodium chloride 0.9 % infusion 20 mL/hr Once, intravenous, [place] 01/27/25 at 1215, For 1 dose, Used to prep and flush blood tubing before and in between units of blood. New Bag 01/27/2025 2:25 PM EDT 20 mL/hr 20 mL/hr documented in this encounter Active and Recently Administered Medications Times are shown in EDT. Scheduled Medication Order 01/25/2025 01/26/2025 01/27/2025 magnesium oxide (MAG-OX) tablet 400 mg (COMPLETED) 400 mg Once, oral, [place] 01/27/25 at 1125, For 1 dose 1157 (Given - Provid er: Genevieve Castillo RN) ondansetron (ZOFRAN) injection 4 mg (COMPLETED) 4 mg Once, intravenous, [place] 01/27/25 at 1025, For 1 dose, For IV push, give over 2 - 5 minutes. 1031 (Given - Provid er: Michael Still RN) sodium chloride 0.9 % infusion (COMPLETED)(Linked Group 1) 20 mL/hr Once, intravenous, [place] 01/27/25 at 1215, For 1 dose, Used to prep and flush blood tubing before and in between units of blood. 1425 (New Bag - Prov ider: Michael Still RN)1730 (Stopped - Provider: Michael Still RN) Linked Groups Order Group 1: Prepare RBC: 1 Units (COMPLETED) STAT, Prepare 1 Units And Transfuse RBC: 1 Units (COMPLETED) Routine, Transfuse 1 Units And sodium chloride 0.9 % infusion (COMPLETED)Jump to med 20 mL/hr Once, intravenous, [place] 01/27/25 at 1215, For 1 dose, Used to prep and flush blood tubing before and in between units of blood. documented in this encounter Care Teams Line Locator Relationship Specialty Start Date End Date Ellie Powell MD [address] [place] [id number] PCP - General Nephrology 01/27/25 documented as of this encounter
[2025-01-30] VITALS (26 sets, daily range): BP systolic 141–157; BP diastolic 58–75; PULSE 61–74; RESP 12–22; TEMP 36.9; O2SAT 95–97; BMI 25.7
--- OUTSIDE RECORDS SUMMARY | 2025-01-30 17:02 | XMS_ITS | Encounter Summary ---
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
--- OUTSIDE RECORDS SUMMARY | 2025-01-30 17:02 | XMS_ITS | Clinical Summary ---
Author Organization [facility] Address [address] [place] [address] Care Team Providers Care Inspector Receiving Name Role Phone Lila Parekh APRN Primary Care Provider [phone] [phone] Allergies Active Allergy Reactions Criticality Noted Date [...] (03/10/2018): Added automatically from request for surgery [id number] Type 2 diabetes mellitus 02/21/2015 Overview (02/14/2016): [...] ventricular function, medical management will be continued.2005, [facility] nonobstructive.November 2014, [facility] at [facility] with fixed anteroapical defect, EF 79%. Osteoarthritis [...] - 5.60 % 03/19/2018 10:33 AM EDT [facility] Blood Line / Unknown 03/19/2018 7: 31 AM EDT 03/19/2018 9:37 AM EDT Narrative [facility] - 03/19/2018 10:33 AM EDT The [place] [employer] recommends maintenance of Hemoglobin A1C at 7.0% or lower. Goals for Hemoglobin A1C reduction may need to be modified if hypoglycemia is a problem. us Augustina Ray APRN LAB BLOOD ORDERABLES Final Result [facility]
[address] [place] [address], * (ABNORMAL) Lipid Panel (03/19/2018 7:31 AM EDT) Total Cholesterol 241(H) 0 - 200 mg/dL 03/19/2018 8:20 AM EDT [facility] Triglycerides 290(H) 0 - 150 mg/dL 03/19/2018 8:20 AM EDT [facility] HDL Cholesterol 46 40 - 60 mg/dL 03/19/2018 8:20 AM EDT [facility] LDL Cholesterol 169(H) 0 - 130 mg/dL 03/19/2018 8:20 AM EDT [facility] Blood Line / Unknown 03/19/2018 7: 31 AM EDT 03/19/2018 7:38 AM EDT Narrative [facility] - 03/19/2018 8:20 AM EDT [...] Ray APRN LAB BLOOD ORDERABLES Final Result [facility]
[address] [place] [address], from Last 3 Months or Most Recently Relevant to Health Maintenance Insurance MEDICARE ADVANTAGE HMO Care Teams Inspector Receiving Relationship Specialty Start Date End Date Lila Parekh APRN [address] [place] [address] PCP - General Nurse Practitioner 01/14/24
--- OUTSIDE RECORDS SUMMARY | 2025-01-30 17:02 | XMS_ITS | Clinical Summary ---
Author Organization [facility] Address [address] [id number] Care Team Providers Care Lumber Handler Name Role Phone SilverAubree livingston Oksana ROSE Primary Care Provider [phone] Allergies Active Allergy Reactions Criticality Noted Date [...] Screening 1950 [facility]-Medicare Annual Wellness (AWV) 1950 [facility]-/Child/Adol SDOH Screenings 1950 [id number] Vaccine (#1) 1953 Diabetes: Dental Exam 1958 [...] to Health Maintenance Insurance MEDICARE Care Teams Lumber Handler Relationship Specialty Start Date End Date Aubree Silver APRN [address] [place] [address] PCP - General 03/01/21
--- OUTSIDE RECORDS SUMMARY | 2025-01-30 17:02 | XMS_ITS | Encounter Summary ---
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 [place] [phone] PCP - General Nurse Practitioner 01/14/24 documented as of this encounter
--- OUTSIDE RECORDS SUMMARY | 2025-01-30 17:02 | XMS_ITS ---
Author Name [facility] Address [address] [place] [address] Phone [phone] Organization [facility] e, NA DOCUMENT DISCLAIMER Multiple document versions may exist, please be sure you review the latest version. The information in the [facility] Continuity of Care Document represents a summary of certain health and medical information. It may not contain the complete medical history for the patient and should be independently verified. The represented time in the document is Eastern Time. PROBLEMS Problem Code Status Onset Date Hypotension of hemodialysis I95.3 Active January 20, 2025 Anemia, unspecified D64.9 Active January 13, 2025 Other disorders of phosphorus metabolism E83.39 Active December 30, 2024 Unspecified protein-calorie malnutrition E46 Active December 23, 2024 Encounter for screening for respiratory tuberculosis Z 11.1 Active December 22, 2024 Anemia in chronic kidney disease D63.1 Active December 21, 2024 assisted (current) use of aspirin Z79.82 Active December 21, 2024 assisted (current) use of insulin Z79.4 Active December 21, 2024 intermediate designer (current) use of antithrombotics/antiplatele ts Z79.02 Active December 21, 2024 intermediate designer (current) use of anticoagulants Z79.01 Active December 21, 2024 Peripheral vascular disease, unspecified I73.9 Active December 21, 2024 Chronic diastolic (congestive) heart failure I50.32 Active December 21, 2024 Atherosclerotic heart diseas e of [place] coronary artery without angina pectoris I25.10 Active [...] Tobacco Type Never smoker - Caregiver Characteristics No Information Available Characteristics of Home environment No Information Available Gender and Sex Information Gender Identity Sexual [...] 2025 Active Iron Sucrose (Venofer) During Dialysis, 1X Week 50 mg Intravenous - push January 22, 2025 January 21, 2026 Active Iron Sucrose (Venofer) During Dialysis, 3X Week 100 mg Intravenous - push December 25, 2024 January 15, 2025 Active Midodrine HCl (Proamatine) During Dialysis, PRN-october repeat x1 10 mg Oral January 20, 2025 January 19, 2026 Active Mircera Every 2 weeks 225 mcg Intravenous - push January 29, 2025 January 28, 2026 Active Mircera During Dialysis, Every 2 weeks 50 mcg Intravenous - push January 15, 2025 January 14, 2026 Discontinued Mircera During Dialysis, Every 2 weeks 150 mcg Intravenous - push January 22, 2025 January 21, 2026 Discontinued Home Medications Medication Instructions Dosage Route Start Date End Date Stat albuterol sulfate 2.5 mg/3 mL (0.083 %) [...] Sign Value Date / Time Blood Pressure-sitting 108/47 mmHg January 10:25 AM Heart Rate 62 beats per minute January 29 10:25 AM Respiratory Rate 18 breaths per minute January 10:25 AM Temperature 97.0 deg. F January 29, 2025 10:25 AM Weight Vital Sign Value Date / Time Estimated Dry Weight 77.2 kg January 25 11:59 PM Pre-Dialysis 76.30 kg January 29, 2025 10:25 AM Post-Dialysis 76.50 kg January 29, 2025 10:25 AM Other Other Value Date / Time [...] % 36.0 - 48.0 % Low November MCHC 32.1 g/dL 30.0 - 36.0 g/dL - December 21, 2024 MCH 29.2 pg 27.0 - 31.0 pg - December 21 ABISAI 3.4 % 0.0 - 4.0 % - December 21, 2024 Basophils 0.4 % 0.0 - 1.5 % - December 21, 2024 WBC (No Diff) 11.92 [...] % 36.0 - 48.0 % Low December Hemoglobin x 3 30.6 % 36.0 - [...] - 16.0 g/dL Low January 18, 2025 HGB 7.0 g/dL 12.0 - 16.0 g/dL Critically low January 25, 2025 Hemoglobin x 3 21.0 % 36.0 - 48.0 % Low December Metabolic/Renal Result Type Result Value Relevant Reference [...] 20 - 31 mEq/L - January 11 Chloride 102 mEq/L 96 - 108 mEq/L - January 11 Potassium 3.3 mEq/L 3.5 - 5.1 mEq/L [...] Product 28 0 - 54 - December 21, 025 Corrected Ca x P Product 34 0 - 54 - January 11, 2025 Ca x P Product 32 0 - 54 - January 11, 2 025 Phosphorus 4.0 mg/dL 2.6 - 4.5 [...] Hemodialysis Data Element Value Order Date/Time January 25, 2025 Frequency 3X Week Treatment Days TueThuSat Dialyzer [id number] Optiflux Treatment Time (Total Minutes) 210 min Blood Flow Rate (mL/min) 400 mL/min Dialysate Flow Rate Manual 700 Estimated Dry Weight 77.2 kg Dialysate Concentrate 2.0 K, 2.5 Ca, 1.0 Mg, 100 Dextrose (G2251) Sodium (mEq/L) 140 mEq/L Bicarb Machine Setting (mEq/L) 30 mEq/L Dialysis Access Hemodialysis-CV Cath eter-Tunneled, Neck, Right Jugular Access Placed on December 20, 2024 TRANSPLANT WAITLIST STATUS No Information on Transplant Waitlist Status ADVANCE DIRECTIVES Directive Description Ordered By Effective Date Resuscitation status Full Code Ellie Andre Dec 21, 2024 DIALYSIS TREATMENTS Conventional Hemodialysis Date Pre-Treatment Vitals Post-Treatment Mirta ls Duration (hr) BFR (mL/min) Dialysate Dialyzer Dialysis Access Meds Admin January 22, 2025 Weight 78.80 kg Weight 77.20 kg 03:32:00 400 2.0 K, 2.5 Ca, 1.0 Mg, 100 Dextrose (G2251) 180nre Optifl ux Blood Pressure-sitting 110/56 mmHg Blood Pressure-sit ting 126/54 mmHg Heart Rate 78 beats per minute Heart Rate 64 beats per minute Respiratory Rate 18 breaths per minute Respiratory Rate 20 breaths per minute Temperature 97.2 deg. F Temperature 97.4 deg. F January 25, 2025 Weight 79.70 kg Weight 78.43 kg 03:30:00 400 2.0 K, 2.5 Ca, 1.0 Mg, 100 Dextrose (G2251) 180nre Optiflux Hemodialysis-CV Catheter-Tunneled, Neck, Right Jugular Access Placed on December 20, 2024 Heparin Sodium (Porcine) 1,000 Units/mL Catheter Lock Arterial; 1600units,Arterial [place] Heparin Sodium (Porcine) 1,000 Units/mL Catheter Lock Venous; 1600units,Venous [place] Midodrine HCl (Proamatine); 10mg,Oral Blood Pressure-sitting 85/40 mmHg Blood Pressure-sit ting 118/49 mmHg Heart Rate 76 beats per minute Heart Rate 64 beats per minute Respiratory Rate 20 breaths per minute Respiratory Rate 18 breaths per minute Temperature 97.7 deg. F Temperature 97.5 deg. F January 29, 2025 Weight 76.30 kg Weight 76.50 kg 01:18:00 390 2.0 K, 2.5 Ca, 1.0 Mg, 100 Dextrose (G2251) 180nre Optiflux Hemodialysis-CV Catheter-Tunneled, Neck, Right Jugular Access Placed on December 20, 2024 Heparin Sodium (Porcine) 1,000 Units/mL Catheter Lock Arterial; 1600units,Arterial [place] Heparin Sodium (Porcine) 1,000 Units/mL Catheter Lock Venous; 1600units,Venous [place] Iron Sucrose (Venofer); 50mg,Intravenous - push Mircera; 225mcg,Intravenous - push Blood Pressure-sitting 82/43 mmHg Blood Pressure-sit ting 108/47 mmHg Heart Rate 78 beats per minute Heart Rate 62 beats per minute Respiratory Rate 18 breaths per minute Respiratory Rate 18 breaths per minute Temperature 97.3 deg. F Temperature 97.0 deg. F
--- OUTSIDE RECORDS SUMMARY | 2025-01-30 17:02 | XMS_ITS | Encounter Summary ---
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
--- OUTSIDE RECORDS SUMMARY | 2025-01-30 17:02 | XMS_ITS ---
Author Organization [facility] Care Team Providers Care Panel Machine Tender Name Role Phone Kenneth Powell Unavailable Unavailable Allergies and adverse reactions Code CodeSystem Substance Reaction Severity StartDate Concern Status 88608 RXNORM Lipitor Unknown 12/20/2024 active 723 RXNORM Amoxicillin Unknown 12/20/2024 active Care Team Name Role Address Phone Organization Dates Kenneth Powell PCP [address], [place], [address], [place] (Office): : (Pager): [facility] 12/20/2024 - 01/29/2025 Goals Section Goals Description Status Target Date Facility will implement desiree alarcon to reduce the risk of acquiring COVID-19 Active 03/23/2025 Resident will participate in activities of choice as tolerated with 1:1 staff visits 2 to 3 x per week. Active 03/23/2025 The resident has expressed the desire to return to the community . Active 03/23/2025 The resident will be able to make basic needs known on a daily basis through the review date. Active 03/23/2025 The resident will be complia nt with thyroid replacement therapy through the review date. Active 03/23/2025 The resident will be free fr om discomfort or adverse reactions related to anti-anxiety therapy through the review date. Active 03/23/2025 The resident will be free fr om s/sx of complications of cardiac problems through the review date. Active 03/23/2025 The resident will be free of adverse drug reactions through the review date. Active 03/23/2025 The resident will be free of any discomfort or adverse side effects of antibiotic therapy through the review date. Active 03/23/2025 The resident will be free of minor injury throug h the review date. Active 03/23/2025 The resident will be free of peripheral edema through the review date. Active 03/23/2025 The resident will be free of symptoms of dehydration and maintain moist mucous membranes, good skin turgor. Active 03/23/2025 The resident will be/remain free of complications related to arthritis ( contractures, joint stiffness, swelling, or decline in mobility) through review date. Active 03/23/2025 The resident will have no co mplications related to diabetes through the review date. Active 03/23/2025 The resident will have no co mplications related to ulcer through review date. Active 03/23/2025 The resident will have no co mplications resulting from the cellulitis through the review date. . Active 03/23/2025 The resident will have no complications through the review date. Active 03/23/2025 The resident will have no s/ sx of complications from dialysis through the review date. Active 03/23/2025 The resident will have not h ave any complications related to IV Therapy through the review date. Active 03/23/2025 The resident will improve cu rrent level of function in (sit to stand/Partial) through the review date. Active 03/23/2025 The resident will maintain a dequate nutritional status through review date. Active 03/23/2025 The resident will participat e in therapy to achieve their functional goals Active 03/23/2025 The resident will remain dimas e from discomfort, complications or s/sx related to dx of GERD through review date. Active 2024 The resident will remain dimas e of complications related to PVD through review date. Active 03/23/2025 The resident will remain dimas e of s/sx or complications related to anemia through review date. Active 03/23/2025 The resident will voice a le gera of comfort through the review date. Active 03/23/2025 The resident's advanced directives will be follo wed Active 03/23/2025 The resident's goal is to ma intain current weight/nutritional status Active 03/23/2025 Functional Status Code Name Recorded Time Value Entered By Feeding or Eating 01/29/2025 Independent - Toileting 01/29/2025 Limited Assistance angelito paula Transferring 01/29/2025 Limited Assistance angelito paula Immunizations Immunization Status Vaccine Details Vaccine Code CodeSystem Date Notes Influenza cancelled Influenza, high-dose, split virus, quadrivalent, injectable, preservative free 197 CVX created date: 12/23/2024 consent date: 12/23/2024 TB 1 Step Mantoux (PPD) completed tuberculin skin test; unspecified formulation expiry: 11/01/2026 Mfg: Tubercilin Purified protein derivative, diluted ap Given 0.1 ml Left Forearm intradermally 98 CVX created date: 12/23/2024 consent date: 12/22/2024 administere d date: 12/23/2024 TB 2 Step Mantoux Skin Test completed tuberculin skin test; unspecified formulation expiry: 11/01/2026 Mfg: Tubercilin Purified protein Given 0.1 ml Right Forearm intradermally Step 1 of Multi-step with next step required 98 CVX created date: 12/30/2024 consent date: 12/29/2024 administere d date: 12/30/2024 TB 2 Step Mantoux Skin Test new tuberculin skin test; unspecified formulation 98 CVX created date: 12/31/2024 consent date: 12/29/2024 PCV Prevnar 20 cancelled Pneumococcal conjugate vaccine 20-valent (PCV20), polysaccharide CHT702 conjugate, adjuvant, preservative free 216 CVX created date: 12/23/2024 consent date: 12/23/2024 Fall-2023/Winter- 2024 cancelled SARS-COV-2 (COVID-19) vaccine, mRNA, spike protein, LNP, preservative free, espinoza-sucrose, 30 mcg/0.3 mL dose 309 CVX created date: 12/23/2024 consent date: 12/23/2024 Medications Section Medication Name Status Code CodeSystem Dose Route Frequency Admin Type Sig Text Start Date End Date Bumetanide Tablet 1 MG aborted [id number] RXNORM 1 tablet Oral one time a day Routine Give 1 tablet by mouth one time a day for fluid retent ion 01/29 HYDROcodone-A cetaminophen Oral Tablet 5-325 MG aborted 319876 RXNORM 1 tablet Oral as needed PRN Give 1 tablet by mouth every 8 hours as needed for for modera te pain 4-6 01/29 Cefepime HCl Solution 1 GM/50ML complete d 861443 3 RXNORM 1 gram Intrave nous every 24 hours Routine Use 1 gram intrav enousl y every 24 hours for wound infect ion for 14 Days pharm contac papito to clarif y sendin g 1GM/ 100mg 01/04 clonazePAM Oral Tablet Disintegratin g 0.5 MG aborted 261813 RXNORM 0.5 mg Oral as needed PRN Give 0.5 mg by mouth every 12 hours as needed for anxiet y 01/27 Linezolid Oral Tablet 600 MG aborted 345178 RXNORM 1 tablet Oral two times a day Routine Give 1 tablet by mouth two times a day for chroni c foot ulcer 01/26 NIFEdipine ER Tablet Extended Release 24 Hour 60 MG aborted 167477 RXNORM 1 tablet Oral one time a day Routine Give 1 tablet by mouth one time a day for hypert ension 01/29 Lactobacillus Oral Tablet aborted 180790 5 RXNORM 1 tablet Oral two times a day Routine Give 1 tablet by mouth two times a day for PROBIO TIC 01/29 Albuterol Sulfate Nebulization Solution (2.5 MG/3ML) 0.083% aborted 405325 RXNORM 3 ml Inhalat ion as needed PRN 3 ml inhale orally via nebuli zer every 4 hours as needed for SOA 01/29 Normal Saline Flush Intravenous Solution 0.9 % aborted 10 ml Intrave nous every day and night time babysitter Routine Use 10 ml intrav enousl y every day and night time babysitter for PICC care 01/08 Desenex External Powder 2 % aborted 055327 RXNORM n/a n/a Topical every day and night time babysitter Routine Apply to folds topica lly every day and night time babysitter for rednes s 01/29 Isosorbide Mononitrate ER Tablet Extended Release 24 Hour 60 MG aborted 138554 RXNORM 1 tablet Oral one time a day Routine Give 1 tablet by mouth one time a day for hypert ension 01/29 Atorvastatin Calcium Oral Tablet 40 MG aborted 455781 RXNORM 1 tablet Oral at bedtime Routine Give 1 tablet by mouth at bedtim e for hyperc holest erolem ia 01/29 Insulin Glargine Solution 100 UNIT/ML aborted 479709 RXNORM 10 unit Subcuta neous one time a day Routine Inject 10 unit subcut aneous ly one time a day for diabet es 01/29 Levothyroxine Sodium Oral Tablet 88 MCG aborted 973609 RXNORM 1 tablet Oral in the morning Routine Give 1 tablet by mouth in the mornin g for hypoth yroidi sm 01/29 Xarelto Oral Tablet 2.5 MG aborted 148843 7 RXNORM 1 tablet Oral two times a day Routine Give 1 tablet by mouth two times a day relate d to PERIPH ERAL VASCUL AR DISEAS E, UNSPEC IFIED (I73.9 ) 01/29 Valsartan Oral Tablet 160 MG aborted 386149 RXNORM 1 tablet Oral one time a day Routine Give 1 tablet by mouth one time a day for hypert ension 01/25 Clopidogrel Bisulfate Oral Tablet 75 MG aborted 145579 RXNORM 75 mg Oral one time a day Routine Give 75 mg by mouth one time a day relate d to PERIPH ERAL VASCUL AR DISEAS E, UNSPEC IFIED (I73.9 ) 01/29 Tubersol Solution 5 UNIT/0.1ML aborted 671349 RXNORM 0.1 ml Intrade rmal every night time babysitter Routine Inject 0.1 ml intrad ermall y every night time babysitter every 12 month( s) starti ng on the for 1 day(s) for Assess for TB exposu re To be admini stered within 72 hours upon admiss ion. Record result s 48 hours post-a dminis ayano n. - Also record in Immuni zation Tab 01/29 Gabapentin Oral Capsule 300 MG aborted 405313 RXNORM 1 capsul e Oral at bedtime Routine Give 1 capsul e by mouth at bedtim e relate d to TYPE 2 DIABET ES [facility] WITH DIABET IC NEUROP ATHY, UNSPEC IFIED (E11.4 0) 01/29 Aspirin Oral Capsule 81 MG aborted 464674 RXNORM 1 capsul e Oral one time a day Routine Give 1 capsul e by mouth one time a day relate d to PERIPH ERAL VASCUL AR DISEAS E, UNSPEC IFIED (I73.9 ) 01/29 Insulin Lispro Subcutaneous Solution Cartridge 100 UNIT/ML aborted 531222 4 RXNORM n/a n/a Subcuta neous before meals and at bedtime Routine Inject as per slidin g scale: if 140 - 180 = 3 units; 181 - 220 = 6 units; 221 - 260 = 9 units; 261 - 300 = 12 units; 301 - 350 = 15 units; 351 - 400 = 18 units call Md if <60 or >400, subcut aneous ly before meals and at bedtim e relate d to TYPE 2 DIABET ES [facility] WITH DIABET IC NEUROP ATHY, UNSPEC IFIED (E11.4 0) 01/29 Mirtazapine Oral Tablet 7.5 MG aborted 936776 RXNORM 1 tablet Oral at bedtime Routine Give 1 tablet by mouth at bedtim e for poor appeti te 01/23 [facility] Wound/Burn External Pad aborted n/a n/a Topical every day shift Routine Apply to left heel topica lly every day shift for eschar left heel Cleans e with ns pat dry cover with ABD pad wrap with kerlix . 01/07 HydrALAZINE HCl Tablet 50 MG aborted 559943 RXNORM 1 tablet Oral three times a day Routine Give 1 tablet by mouth three times a day for hypert ension 01/11 Loperamide HCl Capsule 2 MG aborted 589581 RXNORM 1 capsul e Oral as needed PRN Give 1 capsul e by mouth every 6 hours as needed for diarrh ea 01/29 [facility] Wound/Burn External Pad aborted n/a n/a Topical every day shift Routine Apply to left heel topica lly every day shift every Mon, Wed, Fri for eschar left heel Cleans e with ns pat dry cover with ABD pad wrap with kerlix . 01/10 Ondansetron HCl Tablet 4 MG aborted 108055 RXNORM 1 tablet Oral as needed PRN Give 1 tablet by mouth every 8 hours as needed for Nausea and Vomiti ng 01/29 Potassium Chloride ER Tablet Extended Release 20 MEQ aborted 19800705 RXNORM 1 tablet Oral three times a day Routine Give 1 tablet by mouth three times a day for low potass ium for 3 Days 01/18 Potassium Chloride ER Tablet Extended Release 20 MEQ complete d 19800705 RXNORM 1 tablet Oral three times a day Routine Give 1 tablet by mouth three times a day for low potass ium for 2 Days 01/21 Zinc Sulfate Capsule 220 MG aborted 693325 RXNORM 1 capsul e Oral one time a day Routine Give 1 capsul e by mouth one time a day for wound healin g for 14 Days 01/29 Remeron Oral Tablet 15 MG aborted 665224 RXNORM 1 tablet Oral at bedtime Routine Give 1 tablet by mouth at bedtim e for appeti te relate d to END STAGE RENAL DISEAS E (N18.6 ) 01/29 Promethazine HCl Suppository 12.5 MG aborted 101389 RXNORM 1 suppos itory Rectal as needed PRN Insert 1 suppos itory rectal ly every 6 hours as needed for Nausea and Vomiti ng relate d to END STAGE RENAL DISEAS E (N18.6 );NEPH ROTIC SYNDRO ME WITH UNSPEC IFIED MORPHO LOGIC CHANGE S (N04.9 );ANXI ETY DISORD ER, UNSPEC IFIED (F41.9 );DEPE NDENCE ON RENAL DIALYS IS (Z99.2 ) 01/29 Potassium Chloride ER Tablet Extended Release 20 MEQ complete d 19800705 RXNORM 1 tablet Oral two times a day Routine Give 1 tablet by mouth two times a day for low potass ium for 2 Days 01/28 Valsartan Oral Tablet 160 MG aborted 133550 RXNORM 1 tablet Oral one time a day Routine Give 1 tablet by mouth one time a day for hypert ension may hold on dialys is days. 01/29 Mental Status Section Date Assessment Total Score Description 12/26/2024 BIMS 13 cognitively int act CAM 0 No delirium ind icated PHQ-9 03 minimal depress ion 12/26/2024 BIMS 13 cognitively int act CAM 0 No delirium ind icated PHQ-9 03 minimal depress ion Problems Problem # Description Date of onset Resolved Date Code CodeSystem Concern Status 1 ANEMIA IN OTHER CHRONIC DISEASES CLASSIFIED ELSEWHERE 12/21/[address] active 2 ANXIETY DISORDER, UNSPECIFIED 12/21/[address] active 3 CELLULITIS OF LEFT LOWER LIMB 12/21/[address] active 4 CELLULITIS OF RIGHT LOWER LIMB 12/21/[address] active 5 DEPENDENCE ON RENAL DIALYSIS 12/21/[address] active 6 ENCOUNTER FOR ADJUSTMENT AND MANAGEMENT OF VASCULAR ACCESS DEVICE 12/21/[address] active 7 ENCOUNTER FOR FITTING AND ADJUSTMENT OF EXTRACORPOREAL DIALYSIS CATHETER 12/21/[address] active 8 ENCOUNTER FOR FITTING AND ADJUSTMENT OF EXTRACORPOREAL DIALYSIS CATHETER 12/21/19 25 12/21/[address] completed 9 END STAGE RENAL DISEASE 12/21/[address] active 10 ENTEROCOCCUS THE CAUSE OF DISEASES CLASSIFIED ELSEWHERE 12/21/[address] active 11 HEART FAILURE, UNSPECIFIED 12/21/[address] active 12 HYPERLIPIDEMIA, UNSPECIFIED 12/21/[address] active 13 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 KIDNEY DISEASE, OR UNSPECIFIED CHRONIC KIDNEY DISEASE 12/21/[address] active 14 HYPOTHYROIDISM, UNSPECIFIED 12/21/[address] active 15 VISCOSE CELLAR CHARGE HAND (CURRENT) USE OF ANTICOAGULANTS 12/21/[address] active 16 VISCOSE CELLAR CHARGE HAND (CURRENT) USE OF INSULIN 12/21/[address] active 17 METHICILLIN RESISTANT STAPHYLOCOCCUS AUREUS INFECTION, UNSPECIFIED SITE 12/21/[address] active 18 NEPHROTIC SYNDROME WITH UNSPECIFIED MORPHOLOGIC CHANGES 12/21/[address] active 19 PERIPHERAL VASCULAR DISEASE, UNSPECIFIED 12/21/[address] active 20 PRESSURE ULCER OF RIGHT HEEL, UNSPECIFIED STAGE 12/21/19 25 12/20/[address] completed 21 TYPE 2 DIABETES MELLITUS WITH DIABETIC NEUROPATHY, UNSPECIFIED 12/21/[address] active 22 TYPE 2 DIABETES MELLITUS WITH FOOT ULCER 12/21/[address] active 23 UNSPECIFIED ESCHERICHIA COLI [E. COLI] THE CAUSE OF DISEASES CLASSIFIED ELSEWHERE 12/21/[address] active 24 UNSPECIFIED HEARING LOSS, UNSPECIFIED EAR 12/21/[address] active 25 UNSPECIFIED OSTEOARTHRITIS, UNSPECIFIED SITE 12/21/[address] active Reason for Referral No Reasons for Referral Entered Diagnostic Results Result Code Code System Date Test Result Interpretation Reference Range Status Notes [id number] [facility] 01/24 Basic Metabolic Panel (BMP) / PDFReport Completed Result for: Stacey Rivas ( 9, F) [id number] 99-9 [facility] 01/24 PDFReport Value: See Attachment Units: Normal Final 79389-3 [facility] 01/24 Calcium (Ca) Value: 7.8 Units: mg/dL Low 8.7-10.4 Final 2160-0 [facility] 01/24 Creatinine Value: 3.40 Units: mg/dL High .55-1.02 Final 2345-7 [facility] 01/24 Glucose Value: 99 Units: mg/dL Normal 74-106 Final 3094-0 [facility] 01/24 Blood Urea Nitrogen (BUN) Value: 37 Units: mg/dL High 9 - 23 Final 33628-1 [facility] 01/24 eGFR Value: 13.44 Units: mL/min/{1.7 3_m2} Low > 59 Final 28208-30 [facility] 01/24 Potassium (K) Value: 3.1 Units: mmol/L Low 3.4 - 5.1 Final 2950-07 [facility] 01/24 Sodium (Na) Value: 142 Units: mmol/L Normal 136-145 Final 2028-02 [facility] 01/24 Carbon Dioxide (ECO2) Value: 28 Units: mmol/L Normal 20 - 31 Final 2074-0 [facility] 01/24 Chloride (Cl) Value: 100 Units: mmol/L Normal 98 - 107 Final 3097-3 [facility] 01/24 BUN/Creatini ne Ratio Value: 10.88 Units: ratio Normal 9.00 - 20.00 Final MF2009- 6 [facility] 01/17 CBC with Differential / Platelets / CBC with Differential / Platelets / PDFReport / Complete Metabolic Panel (CMP) / TSH Completed Result for: Stacey Rivas ( [birth year], F) 6768-6 [facility] 01/17 Alkaline Phosphatase Value: 84 Units: U/L Normal 46 - 116 Final 1742-6 [facility] 01/17 ALT (SGPT) Value: 18 Units: U/L Normal 10 - 49 Final 1920 [facility] 01/17 AST (SGOT) Value: 20.0 Units: U/L Normal < 34.0 Final 12605-0 [facility] 01/17 TSH Value: 3.05 Units: u[IU]/mL Normal 0.55-4.78 Final 788-0 [facility] 01/17 RDW Value: 14.8 Units: % binding Normal 12.3 - 15.4 Final 789-8 [facility] 01/17 RBC Value: 2.49 Units: x10^6/UL Low 3.92 - 5.13 Final 295- [facility] 01/17 Sodium (Na) Value: 143 Units: mmol/L Normal 136-145 Final 2822-08 [facility] 01/17 Potassium (K) Value: 2.6 Units: mmol/L Low 3.4 - 5.1 Final 2028-02 [facility] 01/17 Carbon Dioxide (ECO2) Value: 29 Units: mmol/L Normal 20 - 31 Final [facility] 01/17 Chloride (Cl) Value: 103 Units: mmol/L Normal 98 - 107 Final [facility] 01/17 MCH Value: 28.9 Units: pg Normal 27.0 - 34.0 Final [facility] 01/17 MCH Value: 28.9 Units: pg Normal 27.0 - 34.0 Final [facility] 01/17 RBC Value: 2.49 Units: x10^6/UL Low 3.92 - 5.13 Final 6689-07 [facility] 01/17 WBC Value: 14.10 Units: 10*3/uL High 3.40 - 9.60 Final [facility] 01/17 Neutrophils (Absolute) Value: 5.90 Units: 10*3/uL Normal 1.60 - 7.70 Final [facility] 01/17 Platelets Value: 151 Units: 10*3/uL Normal 150.000 - 450.000 Final [facility] 01/17 Monocytes (Absolute) Value: 1.10 Units: 10*3/uL High 0.10 - 0.90 Final 6689-07 [facility] 01/17 WBC Value: 14.10 Units: 10*3/uL High 3.40 - 9.60 Final [facility] 01/17 Baso (Absolute) Value: 0.06 Units: 10*3/uL Normal 0.00 - 0.30 Final [facility] 01/17 Neutrophils (Absolute) Value: 5.90 Units: 10*3/uL Normal 1.60 - 7.70 Final [facility] 01/17 Platelets Value: 151 Units: 10*3/uL Normal 150.000 - 450.000 Final [facility] 01/17 Monocytes (Absolute) Value: 1.10 Units: 10*3/uL High 0.10 - 0.90 Final 0 [facility] 01/17 Lymphocytes (Absolute) Value: 5.97 Units: 10*3/uL High 1.00 - 4.80 Final 711-2 [facility] 01/17 Eos (Absolute) Value: 0.81 Units: 10*3/uL High 0.00 - 0.50 Final 704-7 [facility] 01/17 Baso (Absolute) Value: 0.06 Units: 10*3/uL Normal 0.00 - 0.30 Final 731-0 [facility] 01/17 Lymphocytes (Absolute) Value: 5.97 Units: 10*3/uL High 1.00 - 4.80 Final 711-2 [facility] 01/17 Eos (Absolute) Value: 0.81 Units: 10*3/uL High 0.00 - 0.50 Final 3097-3 [facility] 01/17 BUN/Creatini ne Ratio Value: 5.11 Units: ratio Low 9.00 - 20.00 Final 2345-7 [facility] 01/17 Glucose Value: 66 Units: mg/dL Low 74-106 Final 2160-0 [facility] 01/17 Creatinine Value: 3.13 Units: mg/dL High .55-1.02 Final 1975-2 [facility] 01/17 Bilirubin, Total Value: <0.2 Units: mg/dL Low 0.3 - 1.2 Final 3094-0 [facility] 01/17 Blood Urea Nitrogen (BUN) Value: 16 Units: mg/dL Normal 9 - 23 Final 45320-0 [facility] 01/17 Calcium (Ca) Value: 7.3 Units: mg/dL Low 8.7-10.4 Final 68908-4 [facility] 01/17 eGFR Value: 14.85 Units: mL/min/{1.7 3_m2} Low > 59 Final 788-0 [facility] 01/17 RDW Value: 14.8 Units: % binding Normal 12.3 - 15.4 Final 10768-6 [facility] 01/17 MPV Value: 10.1 Units: fL Normal 7.2-12.3 Final 786-4 [facility] 01/17 MCHC Value: 32.4 Units: g/dL Normal 32.0 - 36.0 Final 718-7 [facility] 01/17 Hemoglobin Value: 7.2 Units: g/dL Low 12.0 - 16.0 Final 786-4 [facility] 01/17 MCHC Value: 32.4 Units: g/dL Normal 32.0 - 36.0 Final 718-7 [facility] 01/17 Hemoglobin Value: 7.2 Units: g/dL Low 12.0 - 16.0 Final 1751-7 [facility] 01/17 Albumin Value: 2.9 Units: g/dL Low 3.2 - 4.8 Final 2885-2 [facility] 01/17 Protein, Total Value: 4.5 Units: g/dL Low 5.7 - 8.2 Final 123-999 99-9 [facility] 01/17 PDFReport Value: See Attachment Units: Normal Final 1759-0 [facility] 01/17 A/G Ratio Value: 1.8 Units: Normal 1.2 - 2.2 Final 38487-0 [facility] 01/17 Globulin, Total Value: 1.6 Units: Normal 1.5 - 4.5 Final 28216-8 [facility] 01/17 MPV Value: 10.1 Units: fL Normal 7.2-12.3 Final 787-2 [facility] 01/17 MCV Value: 89.2 Units: % Normal 80.0 - 100.0 Final 5905-5 [facility] 01/17 Monocytes Value: 7.8 Units: % Normal 3.5-9.0 Final 770-8 [facility] 01/17 Neutrophils Value: 42.00 Units: % Normal 40.00 - 75.00 Final 706-2 [facility] 01/17 Basos Value: 0.40 Units: % Normal 0.00 - 2.00 Final 713-8 [facility] 01/17 Eos Value: 5.7 Units: % Normal 1.0 - 7.0 Final 4544-3 [facility] 01/17 Hematocrit Value: 22.2 Units: % Low 36.0 - 46.0 Final 736-9 [facility] 01/17 Lymphocytes Value: 42.3 Units: % High 18.0 - 42.0 Final 787-2 [facility] 01/17 MCV Value: 89.2 Units: % Normal 80.0 - 100.0 Final 5905-5 [facility] 01/17 Monocytes Value: 7.8 Units: % Normal 3.5-9.0 Final 770-8 [facility] 01/17 Neutrophils Value: 42.00 Units: % Normal 40.00 - 75.00 Final 706-2 [facility] 01/17 Basos Value: 0.40 Units: % Normal 0.00 - 2.00 Final 713-8 [facility] 01/17 Eos Value: 5.7 Units: % Normal 1.0 - 7.0 Final 4-3 [facility] 01/17 Hematocrit Value: 22.2 Units: % Low 36.0 - 46.0 Final 7369 [facility] 01/17 Lymphocytes Value: 42.3 Units: % High 18.0 - 42.0 Final XS6404- 6 [facility] 01/10 CBC with Differential / Platelets / CBC with Differential / Platelets / PDFReport Completed Result for: Stacey Rivas ( [birth year] 9, F) 706-2 [facility] 01/10 Basos Value: 0.60 Units: % Normal 0.00 - 2.00 Final 62 [facility] 01/10 Basos Value: 0.60 Units: % Normal 0.00 - 2.00 Final 8 [facility] 01/10 Eos Value: 4.6 Units: % Normal 1.0 - 7.0 Final 8 [facility] 01/10 Eos Value: 4.6 Units: % Normal 1.0 - 7.0 Final 3 [facility] 01/10 Hematocrit Value: 23.6 Units: % Low 36.0 - 46.0 Final 3 [facility] 01/10 Hematocrit Value: 23.6 Units: % Low 36.0 - 46.0 Final 9 [facility] 01/10 Lymphocytes Value: 45.2 Units: % High 18.0 - 42.0 Final 9 [facility] 01/10 Lymphocytes Value: 45.2 Units: % High 18.0 - 42.0 Final 7-2 [facility] 01/10 MCV Value: 88.4 Units: % Normal 80.0 - 100.0 Final 787-2 [facility] 01/10 MCV Value: 88.4 Units: % Normal 80.0 - 100.0 Final 5904-10 [facility] 01/10 Monocytes Value: 4.3 Units: % Normal 3.5-9.0 Final 5904-10 [facility] 01/10 Monocytes Value: 4.3 Units: % Normal 3.5-9.0 Final 7708 [facility] 01/10 Neutrophils Value: 45.10 Units: % Normal 40.00 - 75.00 Final 770-8 [facility] 01/10 Neutrophils Value: 45.10 Units: % Normal 40.00 - 75.00 Final 7011-29 [facility] 01/10 Basos Value: 0.60 Units: % Normal 0.00 - 2.00 Final 2 [facility] 01/10 Basos Value: 0.60 Units: % Normal 0.00 - 2.00 Final [facility] 01/10 Eos Value: 4.6 Units: % Normal 1.0 - 7.0 Final 8 [facility] 01/10 Eos Value: 4.6 Units: % Normal 1.0 - 7.0 Final 4543-08 [facility] 01/10 Hematocrit Value: 23.6 Units: % Low 36.0 - 46.0 Final 3 [facility] 01/10 Hematocrit Value: 23.6 Units: % Low 36.0 - 46.0 Final [facility] 01/10 Lymphocytes Value: 45.2 Units: % High 18.0 - 42.0 Final 9 [facility] 01/10 Lymphocytes Value: 45.2 Units: % High 18.0 - 42.0 Final [facility] 01/10 MCV Value: 88.4 Units: % Normal 80.0 - 100.0 Final [facility] 01/10 MCV Value: 88.4 Units: % Normal 80.0 - 100.0 Final 5904-10 [facility] 01/10 Monocytes Value: 4.3 Units: % Normal 3.5-9.0 Final 5904-10 [facility] 01/10 Monocytes Value: 4.3 Units: % Normal 3.5-9.0 Final 770-8 [facility] 01/10 Neutrophils Value: 45.10 Units: % Normal 40.00 - 75.00 Final 770-8 [facility] 01/10 Neutrophils Value: 45.10 Units: % Normal 40.00 - 75.00 Final 788-0 [facility] 01/10 RDW Value: 14.5 Units: % binding Normal 12.3 - 15.4 Final -0 [facility] 01/10 RDW Value: 14.5 Units: % binding Normal 12.3 - 15.4 Final 30732-9 [facility] 01/10 MPV Value: 11.2 Units: fL Normal 7.2-12.3 Final [facility] 01/10 MPV Value: 11.2 Units: fL Normal 7.2-12.3 Final [facility] 01/10 Hemoglobin Value: 7.6 Units: g/dL Low 12.0 - 16.0 Final [facility] 01/10 Hemoglobin Value: 7.6 Units: g/dL Low 12.0 - 16.0 Final 4 [facility] 01/10 MCHC Value: 32.2 Units: g/dL Normal 32.0 - 36.0 Final 4 [facility] 01/10 MCHC Value: 32.2 Units: g/dL Normal 32.0 - 36.0 Final 4 [facility] 01/10 MCHC Value: 32.2 Units: g/dL Normal 32.0 - 36.0 Final 4 [facility] 01/10 MCHC Value: 32.2 Units: g/dL Normal 32.0 - 36.0 Final 7 [facility] 01/10 Hemoglobin Value: 7.6 Units: g/dL Low 12.0 - 16.0 Final [facility] 01/10 Hemoglobin Value: 7.6 Units: g/dL Low 12.0 - 16.0 Final 99-9 [facility] 01/10 PDFReport Value: See Attachment Units: Normal Final 99-9 [facility] 01/10 PDFReport Value: See Attachment Units: Normal Final [facility] 01/10 MPV Value: 11.2 Units: fL Normal 7.2-12.3 Final [facility] 01/10 MPV Value: 11.2 Units: fL Normal 7.2-12.3 Final 6689-07 [facility] 01/10 WBC Value: 11.84 Units: 10*3/uL High 3.40 - 9.60 Final 6689-07 [facility] 01/10 WBC Value: 11.84 Units: 10*3/uL High 3.40 - 9.60 Final 6689-07 [facility] 01/10 WBC Value: 11.84 Units: 10*3/uL High 3.40 - 9.60 Final 6689-07 [facility] 01/10 WBC Value: 11.84 Units: 10*3/uL High 3.40 - 9.60 Final [facility] 01/10 Baso (Absolute) Value: 0.07 Units: 10*3/uL Normal 0.00 - 0.30 Final [facility] 01/10 Baso (Absolute) Value: 0.07 Units: 10*3/uL Normal 0.00 - 0.30 Final [facility] 01/10 Eos (Absolute) Value: 0.55 Units: 10*3/uL High 0.00 - 0.50 Final [facility] 01/10 Eos (Absolute) Value: 0.55 Units: 10*3/uL High 0.00 - 0.50 Final 0 [facility] 01/10 Lymphocytes (Absolute) Value: 5.35 Units: 10*3/uL High 1.00 - 4.80 Final 0 [facility] 01/10 Lymphocytes (Absolute) Value: 5.35 Units: 10*3/uL High 1.00 - 4.80 Final [facility] 01/10 Neutrophils (Absolute) Value: 5.34 Units: 10*3/uL Normal 1.60 - 7.70 Final [facility] 01/10 Neutrophils (Absolute) Value: 5.34 Units: 10*3/uL Normal 1.60 - 7.70 Final 777-3 [facility] 01/10 Platelets Value: 103 Units: 10*3/uL Low 150.000 - 450.000 Final 7-3 [facility] 01/10 Platelets Value: 103 Units: 10*3/uL Low 150.000 - 450.000 Final -7 [facility] 01/10 Monocytes (Absolute) Value: 0.51 Units: 10*3/uL Normal 0.10 - 0.90 Final 7 [facility] 01/10 Monocytes (Absolute) Value: 0.51 Units: 10*3/uL Normal 0.10 - 0.90 Final -0 [facility] 01/10 Lymphocytes (Absolute) Value: 5.35 Units: 10*3/uL High 1.00 - 4.80 Final 0 [facility] 01/10 Lymphocytes (Absolute) Value: 5.35 Units: 10*3/uL High 1.00 - 4.80 Final 8 [facility] 01/10 Neutrophils (Absolute) Value: 5.34 Units: 10*3/uL Normal 1.60 - 7.70 Final 8 [facility] 01/10 Neutrophils (Absolute) Value: 5.34 Units: 10*3/uL Normal 1.60 - 7.70 Final 7-3 [facility] 01/10 Platelets Value: 103 Units: 10*3/uL Low 150.000 - 450.000 Final 3 [facility] 01/10 Platelets Value: 103 Units: 10*3/uL Low 150.000 - 450.000 Final [facility] 01/10 Monocytes (Absolute) Value: 0.51 Units: 10*3/uL Normal 0.10 - 0.90 Final 7 [facility] 01/10 Monocytes (Absolute) Value: 0.51 Units: 10*3/uL Normal 0.10 - 0.90 Final 2 [facility] 01/10 Eos (Absolute) Value: 0.55 Units: 10*3/uL High 0.00 - 0.50 Final [facility] 01/10 Eos (Absolute) Value: 0.55 Units: 10*3/uL High 0.00 - 0.50 Final [facility] 01/10 Baso (Absolute) Value: 0.07 Units: 10*3/uL Normal 0.00 - 0.30 Final [facility] 01/10 Baso (Absolute) Value: 0.07 Units: 10*3/uL Normal 0.00 - 0.30 Final [facility] 01/10 MCH Value: 28.5 Units: pg Normal 27.0 - 34.0 Final [facility] 01/10 MCH Value: 28.5 Units: pg Normal 27.0 - 34.0 Final [facility] 01/10 MCH Value: 28.5 Units: pg Normal 27.0 - 34.0 Final [facility] 01/10 MCH Value: 28.5 Units: pg Normal 27.0 - 34.0 Final [facility] 01/10 RBC Value: 2.67 Units: x10^6/UL Low 3.92 - 5.13 Final [facility] 01/10 RBC Value: 2.67 Units: x10^6/UL Low 3.92 - 5.13 Final 0 [facility] 01/10 RDW Value: 14.5 Units: % binding Normal 12.3 - 15.4 Final 80 [facility] 01/10 RDW Value: 14.5 Units: % binding Normal 12.3 - 15.4 Final [facility] 01/10 RBC Value: 2.67 Units: x10^6/UL Low 3.92 - 5.13 Final [facility] 01/10 RBC Value: 2.67 Units: x10^6/UL Low 3.92 - 5.13 Final Test Code Code System Name Date 01/24/2025 Basic Metabolic Panel (BMP) 01/24/2025 Complete Metabolic Panel (CM P) 01/17/2025 01/17/2025 CBC with Differential / Plat elets 01/17/2025 Complete Metabolic Panel (CM P) 01/17/2025 CBC with Differential / Plat elets 01/17/2025 Complete Metabolic Panel (CM P) 01/17/2025 CBC with Differential / Plat elets 01/17/2025 Complete Metabolic Panel (CM P) 01/17/2025 01/17/2025 Complete Metabolic Panel (CM P) 01/17/2025 CBC with Differential / Plat elets 01/17/2025 CBC with Differential / Plat elets 01/10/2025 01/10/2025 CBC with Differential / Plat elets 01/10/2025 Social History Social History Observation Description Start Date End Date Code Code System Current Smoking Status Tobacco smoking consumption unknown [id number] SNOMED CT Sex Assigned At Female 1950 92871-2 [facility] Gender Identity Female [id number] [id number] Vital Signs Code Code System Vitals Name Values and Units Timing Information 9279-1 [facility] Respiratory Rate Value=16.0 Units=/m in 01/29/2025 8462-4 [facility] Blood Pressure-Diastolic Value=58 Un its=mmHg 01/29/2025 8480-6 [facility] Blood Pressure-Systolic Uaiot=872 Un its=mmHg 01/29/2025 8310-5 [facility] Body Temperature Value=97.3 Units= F 01/29/2025 8867-4 [facility] Heart rate Value=73.0 Units=/min 07/2024 69541-5 [facility] O2 % BldC Oximetry Value=93.0 Units= % 01/29/2025 2339-0 [facility] Blood Sugar Utiip=834.0 Units=mg/dL 01/29/2025 37906-6 [facility] Pain Level Value=2.0 01/29/2025 28975-9 [facility] Weight Aqstt=529.2 Units=Lbs 8302-2 [facility] Height Value=68.0 Units=Inches 12/21/2024
--- OUTSIDE RECORDS SUMMARY | 2025-01-30 17:02 | XMS_ITS | Encounter Summary ---
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
--- OUTSIDE RECORDS SUMMARY | 2025-01-30 17:03 | XMS_ITS | Encounter Summary ---
Author Organization [employer] ([place], [place], [place], [place]) Address [address] [place] [address] Care Team Providers Care Outside Sales Executive Name Role Phone Ellie Powell MD Primary Care Provider [phone] Encounter Details Date Type Department Care Team (Latest Contact Info) Description 01/27/2025 Travel Social History Tobacco Use Types Packs/Day Years Used Date Smoking Tobacco: Never Smokeless Tobacco: Never Alcohol Use Standard [...] on filedocumented in this encounter Care Teams Outside Sales Executive Relationship Specialty Start Date End Date Ellie Powell MD [facility] [place] [address] PCP - General Nephrology 01/27/25 documented as of this encounter
--- OUTSIDE RECORDS SUMMARY | 2025-01-30 17:03 | XMS_ITS | Clinical Summary ---
Author Organization [employer] ([place], [place], [place], [place]) Address [address] [place] [address] Care Team Providers Care Watershed Tender Name Role Phone Ellie Powell MD Primary Care Provider [phone] Allergies Active Allergy Reactions Criticality Noted Date Comments Moxifloxacin Anaphylaxis High 01/27/2025 Medications No known medications Active Problems No known active problems Encounters Date Type Department Care Team Description 01/27/2025 10:13 AM EDT - 01/27/2025 6:00 PM EDT Emergency [facility] Emergency Department [address] [place] [id number] Stef Senior DO Generalized weakness (Primary Dx); Anemia, unspecified type Discharge Disposition: [facility] Facility 01/27/2025 Travel from Last 3 Months Social History Tobacco Use Types Packs/Day Years [...] Mass Index 27.22 01/27/2025 10:15 AM EDT Plan of Treatment Health Maintenance Due Date Last Done Comments DXA SCAN 1950 Depression Screening (12+) 1960 Hepatitis C Screening 1966 DTAP/TDAP/TD VACCINES (1 - Tdap) 12/28/1967 Pneumococcal 50+ years (1 of 1 - PCV) 1998 Shingles Vaccine (Zoster) (1 of 2) 1998 Respiratory Syncytial Virus (RSV) Adult or (1 - 1-dose 75+ series) 12/28/2023 COVID-19 VACCINE ( - season) 2024 Falls Risk Screening 06/30/2024 Medicare IPPE (Welcome to Medicare) [id number] 06/30/2024 Influenza Vaccine (#1) 2025 Tobacco Cessation Counseling and Screening (12+) 01/2701/27/2025 Procedures Procedure Name Priority Date/Time Associated Diagnosis Comments FS_MODEL_IP_TRANSFUSE RED BLOOD CELLS Routine 01/27/2025 2:12 PM EDT TYPE AND SCREEN (NAHED BKR) STAT 01/27/2025 1:06 PM EDT ABO/RH CONFIRMATION/RETYPE ([place] BKR) STAT 01/27/2025 12:32 PM EDT FS_MODEL_IP_PREPARE RBC STAT 01/27/2025 12:11 PM EDT XR CHEST 1 VIEW PORTABLE / BEDSIDE STAT 01/27/2025 10:55 AM EDT FS_SJ[facility]_MODEL CRITICAL CARE Routine 01/27/2025 10:26 AM EDT MANUAL DIFFERENTIAL Routine 01/27/2025 1 0:24 AM EDT [place] RED TOP (EXTRA TUBES) STAT 01/27/2025 10:24 AM EDT [place] BLUE TOP (EXTRA TUBES) STAT 01/27/2025 10:24 AM EDT [place] EXTRA TUBES STAT 01/27/2025 10:24 AM EDT PROBNP STAT 01/27/2025 10:24 AM EDT HIGH SENSITIVITY TROPONIN I STAT 01/27/2025 10:24 AM EDT MAGNESIUM STAT 01/27/2025 10:24 AM EDT COMPREHENSIVE METABOLIC PANEL STAT 01/27/2025 10:24 AM EDT CBC W/ AUTO DIFF STAT 01/27/2025 10:2 4 AM EDT FS_MODEL_IP_ECG 12-LEAD STAT 01/27/2025 10:18 AM EDT from Last 3 Months Results * Transfuse RBC (01/27/2025 5:30 PM EDT) us Finch Senior DO FS_MODEL_IP_BLOOD TRANSFUSION OR DERABLES Final Result * Type and Screen (01/27/2025 1:06 PM EDT) ABO/Rh A POSITIVE 01/27/2025 12:11 PM EDT [facility] ([facility] Antibody Screen NEGATIVE 01/27/2025 12:11 PM EDT [facility] ([facility]) HISTCHK HIST CHECK PERFORMED 01/27/2025 12:11 PM EDT [facility] ([place]) Blood Venipuncture / Unknown 01/27/2025 1:06 PM EDT 01/27/2025 1:20 PM EDT Stef Senior [facility] TEST ORDERABLES E dited Result - Final Performing Organization Address City/[facility]/ZIP Co de Phone Number [facility] ([place]) [address] [place] [address], [facility] [phone] * ABO/RH CONFIRMATION/RETYPE (01/27/2025 12:32 PM EDT) RETYPE A POSITIVE 01/27/2025 12:34 PM EDT [facility] ([place]) Blood Venipuncture / Unknown 01/27/2025 12:32 PM EDT 01/27/2025 12:32 PM EDT Stef Senior [facility] TEST ORDERABLES F inal Result Performing Organization Address [facility]/ZIP Co de Phone Number [facility] ([place]) [address] [facility] [place], [place] [id number] [place] [address] * Prepare RBC: 1 Units (01/27/2025 12:11 PM EDT) Issue Date/Time [id number] [facility] ([place]) Product Identification Red Blood Cells [facility] ([place]) Product Code [id number] [facility] ([place]) Status Information Transfused [facility] ([place]) Unit Number [id number] [facility] B[facility]OD [facility] ([place]) Blood Type 6200 [facility] ([place]) Cross Match Results Compatible [facility] ([place]) Stef Senior DO _MODEL_IP_BLOOD BANK PRODUCT O RDERABLES Final Result Performing Organization Address City/[facility]/ZIP Co de Phone Number [facility] ([place]) [address] [facility] [place] [address], [facility] [phone] * XR chest 1 view portable / [...] Richy Reddy. Transcribed by Laura Berry PA-C. Stef Senior DO IM DIAGNOSTIC IMAGING ORDERABLE S Final Result * [...] PROCEDURE/MINOR SURGICAL ORDERAB LES Final Result * Red Top Extra Tubes (01/27/2025 10:24 AM EDT) HOLD SPECIMEN (SJ - BKR) Hold for add-ons. 01/27/2025 12:00 PM EDT [facility] Comment:Auto resulted. Blood Venipuncture / Unknown 01/27/2025 10:24 AM EDT 01/27/2025 10:30 AM EDT us Stef Senior DO LAB BLOOD ORDERABLES Final Resul t Performing Organization Address [facility]/[place] Phone Number [facility] [address] [place] [address] * Blue Top Extra Tubes (01/27/2025 10:24 AM EDT) HOLD SPECIMEN (SJ - BKR) Hold for add-ons. 01/27/2025 12:00 PM EDT [facility] Comment:Auto resulted. Blood Venipuncture / Unknown 01/27/2025 10:24 AM EDT 01/27/2025 10:30 AM EDT us Finch Senior DO LAB BLOOD ORDERABLES Final Resul t Performing Organization Address City/[facility]/[place] Phone Number [facility] [address] [place] [address] * (ABNORMAL) CBC with Auto Diff (01/27/2025 10:24 AM EDT) WBC 14.1(H) 4.8 - 10.8 K/ L 01/27/2025 10:40 AM EDT [facility] RBC 2.47(L) 3.50 - 5.20 M/ L 01/27/2025 10:40 AM EDT [facility] Hemoglobin 7.0(L) 11.7 - 15.8 GM/DL 01/27/2025 10:40 AM EDT [facility] Hematocrit 21.0(L) 35.0 - 47.0 % 01/27/2025 10:40 AM EDT [facility] MCV 85 81 - 101 fL 01/27/2025 10:40 AM EDT [facility] MCH 28.3 27.0 - 34.0 pg 01/27/2025 10:40 AM EDT [facility] MCHC 33.3 32.0 - 36.0 GM/DL 01/27/2025 10:40 AM EDT [facility] RDW 15.9(H) 11.5 - 14.5 % 01/27/2025 10:40 AM EDT [facility] Platelets 136(L) 150 - 400 K/CU MM 01/27/2025 10:40 AM EDT [facility] MPV 10.3 9.4 - 12.4 fL 01/27/2025 10:40 AM EDT [facility] Nucleated Red Blood Cell 0.0 0 - 0.2 % 01/27/2025 10:40 AM EDT [facility] NRBC Absolute <0.01 0 - 0.012 K/ul 01/27/2025 10:40 AM EDT [facility] Blood Venipuncture / Unknown 01/27/2025 10:24 AM EDT 01/27/2025 10:30 AM EDT Narrative [facility] - 01/27/2025 10:40 AM EDT When [...] DO LAB BLOOD ORDERABLES Final Resul t [facility] [address] [id number] [phone] * (ABNORMAL) Manual Differential (01/27/2025 10:24 AM EDT) Pathologist [facility] Total Counted 100 01/27/2025 11:00 AM EDT [facility] % Neutros (manual) 55 15 - 67 % 01/27/2025 11:00 AM EDT [facility] % Lymphs (manual) 40 10 - 50 % 01/27/2025 11:00 AM EDT [facility] % Monos (manual) 2 2 - 10 % 01/27/2025 11:00 AM EDT [facility] % Eos (manual) 1 0 - 7 % 01/27/2025 11:00 AM EDT [facility] % Baso (manual) 2 0 - 2 % 01/27/2025 11:00 AM EDT [facility] Variant LY Present(A) (none) 01/27/2025 11:00 AM EDT [facility] Platelet Estimate Adequate Adequate 01/27/2025 11:00 AM EDT [facility] Smudge Cells Present 01/27/2025 11:00 AM EDT [facility] ANC# 7.76 K/ L 01/27/2025 11:00 AM EDT [facility] Blood Venipuncture / Unknown 01/27/2025 10:24 AM EDT 01/27/2025 10:30 AM EDT us Stef Senior DO LAB BLOOD ORDERABLES Final Resul t [facility] [address] [phone] * High Sensitivity Troponin I (01/27/2025 10:24 AM EDT) [facility] Troponin I High Sensitivity (pg/mL) 20.8 4 - 60.3 pg/mL 01/27/2025 11:02 AM EDT [facility] Comment: Troponin Result (pg/mL) *Interpretation 4-60.3 [...] 10:24 AM EDT 01/27/2025 10:30 AM EDT [facility] LAB BLOOD ORDERABLES Final Resul t Performing Organization Address [facility] Phone Number [facility] [address] [place] [address] * (ABNORMAL) PROBNP (01/27/2025 10:24 AM EDT) ProBNP (pg/mL) 5,368(H) 5 - 450 pg/mL 01/27/2025 11:02 AM EDT [facility] Blood Venipuncture / Unknown 01/27/2025 10:24 AM EDT 01/27/2025 10:30 AM EDT [facility] LAB BLOOD ORDERABLES Final Resul t Performing Organization Address [facility] Phone Number [facility] [address] [place] [address] * (ABNORMAL) Magnesium (01/27/2025 10:24 AM EDT) Magnesium 1.7(L) 1.8 - 2.4 mg/dL 01/27/2025 11:02 AM EDT [facility] Blood Venipuncture / Unknown 01/27/2025 10:24 AM EDT 01/27/2025 10:30 AM EDT [facility] LAB BLOOD ORDERABLES Final Resul t Performing Organization Address [facility] Phone Number [facility] [address] [place] [address] * (ABNORMAL) Comprehensive metabolic panel (01/27/2025 10:24 AM EDT) Sodium 138 136 - 145 meq/L 01/27/2025 11:03 AM EDT [facility] Potassium 3.6 3.5 - 5.1 meq/L 01/27/2025 11:03 AM EDT [facility] Chloride 102 98 - 107 meq/L 01/27/2025 11:03 AM EDT [facility] CO2 28 21 - 32 meq/L 01/27/2025 11:03 AM EDT [facility] Calcium 7.8(L) 8.5 - 10.1 mg/dL 01/27/2025 11:03 AM EDT [facility] Glucose 126(H) 74 - 100 mg/dL 01/27/2025 11:03 AM [facility] BUN 49(H) 7 - 18 mg/dL 01/27/2025 11:03 AM EDT [facility] Creatinine 3.60(H) 0.55 - 1.10 mg/dL 01/27/2025 11:03 AM T [facility] BUN/Creatinine 14 01/27/2025 11:03 AM [facility] Albumin 2.6(L) 3.4 - 5.0 g/dL 01/27/2025 11:03 AM [facility] Alkaline Phosphatase 82 46 - 116 U/L 01/27/2025 11:03 AM EDT [facility] ALT 22 12 - 78 U/L 01/27/2025 11:03 AM EDT [facility] AST 31 15 - 37 U/L 01/27/2025 11:03 AM EDT [facility] Total Bilirubin 0.4 0.2 - 1.0 mg/dL 01/27/2025 11:[facility] Protein, Total 5.2(L) 6.4 - 8.2 gm/dL 01/27/2025 11:03 AM EDT [facility] Anion Gap 12 11 - 22 01/27/2025 11:03 AM EDT [facility] A/G Ratio 1.0 01/27/2025 11:03 AM EDT [facility] Globulin 2.6 g/dL 01/27/2025 11:03 AM EDT [facility] Osmolality Calc 290.2 mOsm/kg 11:03 AM EDT [facility] eGFR (mL/min/1.73m2) 13(L) >=60 mL/min/1.7 3m2 01/27/2025 11:03 AM EDT [facility] Comment:ESTIMATED GFR IS NOT ACCURATE CREATININE CLEARANCE IN PREDICTING GLOMERULAR FILTRATION RATE. ESTIMATED GFR IS NOT APPLICABLE FOR DIALYSIS PATIENTS. Blood Venipuncture / Unknown 01/27/2025 10:24 AM EDT 01/27/2025 10:30 AM EDT [facility] LAB BLOOD ORDERABLES Final Resul t [facility] [address] [place] [address] * ECG 12 lead (01/27/2025 10:18 AM EDT) VENTRICULAR RATE EKG/MIN 68 BPM GE MUSE ATRIAL RATE (MCT) 68 BPM GE MUSE NE Interval 120 ms GE MUSE QRS-INTERVAL (MSEC) 98 ms GE MUSE QT Interval 456 ms GE MUSE QTC Interval 484 ms GE MUSE P Fonda 58 degrees GE MUSE R AXIS (MCT) -42 degrees GE MUSE T Wave Fonda 69 degrees GE MUSE Traer Diagnosis Normal sinus rhythm Left axis deviation Cannot rule out Anterior infarct , age undetermined Abnormal ECG No previous ECGs available Confirmed by Nikole HYATT RICHARD ([id number]) on 01/27/2025 12:29:56 PM GE MUSE 01/27/2025 10:1 8 AM EDT 01/27/2025 12:29 PM EDT [employer] DO ECG ORDERABLES Final Result GE SUHAIL from Last 3 Months Insurance [employer] MEDICARE HMO Care Teams Watershed Tender Relationship Specialty Start Date End Date Ellie Powell MD [address] [place] [id number] PCP - General Nephrology 01/27/25
--- OUTSIDE RECORDS SUMMARY | 2025-01-30 17:03 | XMS_ITS | Patient Health Record ---
Author Organization [facility] [place] Address [address] [place] [address] Care Team Providers Care French Polisher Name Role Phone MARY GOODWIN Primary Care Provider Ariana Puente Unavailable [phone] Reason For Referral No Information Medications Medication SIG (Take, Route, Frequency, Duration) Notes Start Date End Date Status NIFEdipine ER 60 MG 1 tablet on an empty stomach Orally Once a day; Duration: 7 days 01/28/2025 Active Lactobacillus - 1 tablet Orally twic e a day; Duration: 7 days 01/28/2025 Active Loperamide HCl 2 MG 1 tablet Orally ever y 6 hours; Duration: 7 days 01/28/2025 Active Isosorbide Mononitrate ER 60 MG 1 tablet in the morning Orally Once a day; Duration: 7 days 01/28/2025 Active Levothyroxine Sodium 88 MCG 1 capsule Or ally Once a day; Duration: 7 days 01/28/2025 Active Bumetanide 1 MG 1 tablet Orally Once a day; Duration: 7 days 01/28/2025 Active Clopidogrel Bisulfate 75 MG 1 tablet Ora lly Once a day; Duration: 7 days 01/28/2025 Active Aspirin 81 MG 1 tablet Orally Once a day; Duration: 7 days 01/28/2025 Active Valsartan 160 MG 1 tablet Orally Once a day; Duration: 7 days 01/28/2025 Active Atorvastatin Calcium 40 MG 1 tablet at b edtime Orally Once a day; Duration: 7 days 01/28/2025 Active Ondansetron HCl 4 MG 1 tablet Orally Onc e a day; Duration: 7 days 01/28/2025 Active Remeron 15 MG 1 tablet at bedtime Orally Once a day; Duration: 7 days 01/28/2025 Active clonazePAM 0.5 MG 1/2 TABLET (0.25MG)A S NEEDED Orally EVERY 12 HOURS; Duration: 28 days 12/22/2024 Active HYDROcodone-Acetaminophen 5-325 MG 1 tablet as needed Orally EVERY 8 HOURS; Duration: 7 days 12/22/2024 Active Gabapentin 300 MG 1 capsule Orally AT BEDTIME; Duration: 7 days 12/22/2024 Active Problems Problem Type SNOMED Code ICD Code Onset Dates Problem Status W/U Status Risk Notes Problem Methicillin resistant Staphylococcus aureus infection (235395522) Methicillin resistant Staphylococcus aureus infection as the cause of diseases classified elsewhere (B95.62) Active confirmed Problem Diabetic renal disease (129993535) 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 confirmed Problem Foot ulcer due to type 2 diabetes mellitus (0220797718440) Type 2 diabetes mellitus with foot ulcer (E11.621) Active confirmed Problem Iron deficiency (31577788) Iron deficiency (E61.1) Active confirmed Problem Mixed hyperlipidemia (367549096) Mixed hyperlipidemia (E78.2) Active confirmed Problem Cellulitis of right lower limb (9907539468313228 4) Cellulitis of right lower limb (L03.115) Active confirmed Problem Cellulitis of left lower limb (2817087923329577 9) Cellulitis of left lower limb (L03.116) Active confirmed Problem 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) Active confirmed Problem End stage renal disease (45612561) End stage renal disease (N18.6) Active confirmed Problem Anxiety (05507929) Anxiety (F41.9) Active confirmed Problem Benign essential hypertension (0860888) Benign essential hypertension (I10) Active confirmed Problem Hypothyroidism (65451454) Hypothyroidism (E03.9) Active confirmed Problem Primary osteoarthritis (555292166) Primary osteoarthritis involving multiple joints (M15.0) Active confirmed Problem Diabetes mellitus type 2 (20130957) Diabetes mellitus type 2, uncontrolled (E11.65) Active confirmed Problem Peripheral vascular disease (291673296) Peripheral vascular disease (I73.9) Active confirmed Problem Nephrotic syndrome (54097175) Nephrotic syndrome (N04.9) Active confirmed Problem Dependence on hemodialysis (791316823) Dependence on hemodialysis (Z99.2) Active confirmed Problem Acute metabolic acidosis (E87.21) Active confirmed Encounters Encounter Location Date Provider Diagnosis [facility] [address] [place] [address] 01/28/2025 MARY GOODWIN [facility] [address] [place] [address] 12/22/2024 Ariana Puente [facility] [address] [place] [address] 12/22/2024 Ariana Puente [facility] [address] [place] [address] 01/28/2025 MARY GOODWIN [facility] [address] [place] [address] 01/28/2025 MARY GOODWIN [facility] [address] [place] [address] 01/28/2025 MARY GOODWIN Plan Of Treatment No Information Insurance Providers Payer Name Payer Address Payer Phone Subscriber Number Group Number Insured Name Patient Relationship to Insured Coverage Start Date Coverage End Date [employer] MEDICARE [address] [address] [place] [phone] [id number] STACEY BOYD Self - patient is the insured
--- OUTSIDE RECORDS SUMMARY | 2025-01-30 17:03 | XMS_ITS | Referral Summary ---
Author Organization [facility] ([place], [place], [place], [place]) Address [address] [place] [address] Care Team Providers Care Assistant Superintendent Name Role Phone Ellie Powell MD Primary Care Provider [phone] Encounters Date Type Department Care Team Description 01/27/2025 Travel 01/27/2025 10:13 AM EDT - 01/27/2025 6:00 PM EDT Emergency [facility] Emergency Department [address] [place] [address] Stef Senior DO Generalized weakness (Primary Dx); Anemia, unspecified type Discharge Disposition: Nursing Home Facility from Last 3 Months Allergies Active Allergy Reactions Criticality Noted Date Comments Moxifloxacin Anaphylaxis High 01/27/2025 Medications No known medications Active Problems No known active problems Social History Tobacco Use Types Packs/Day Years [...] 01/27/2025 10:15 AM EDT Plan of Treatment Not on file Procedures Procedure Name Priority Date/Time Associated Diagnosis Comments FS_MODEL_IP_TRANSFUSE RED BLOOD CELLS Routine 01/27/2025 2:12 PM EDT TYPE AND SCREEN ([place] BKR) STAT 01/27/2025 1:06 PM EDT ABO/RH [...] ABO/Rh A POSITIVE 01/27/2025 12:11 PM EDT [facility] (ID) Antibody Screen NEGATIVE 01/27/2025 12:11 PM EDT [facility] ([place]) HISTCHK HIST CHECK PERFORMED 01/27/2025 12:11 PM EDT [facility] (ID) Blood Venipuncture / Unknown 01/27/2025 1:06 PM EDT 01/27/2025 1:20 PM EDT us Stef Senior DO [facility] TEST ORDERABLES E dited Result - Final [facility] (ID) [address] [place] [address], [facility] [phone] * ABO/RH CONFIRMATION/RETYPE (01/27/2025 12:32 PM EDT) RETYPE A POSITIVE 01/27/2025 12:34 PM EDT [facility] ([place]) Blood Venipuncture / Unknown 01/27/2025 12:32 PM EDT 01/27/2025 12:32 PM EDT Stef Parrish [facility] TEST ORDERABLES F inal Result [facility] (ID) [address] [place] [id number], [facility] [phone] * Prepare RBC: 1 Units (01/27/2025 12:11 PM EDT) Issue Date/Time [id number] [facility] (ID) Product Identification Red Blood Cells [facility] (ID) Product Code [id number] [facility] (ID) Status Information Transfused [facility] (ID) Unit Number [id number] [facility] (ID) Blood Type 6200 [facility] (ID) Cross Match Results Compatible [facility] (ID) Stef Senior DO FS_MODEL_IP_BLOOD BANK PRODUCT O RDERABLES Final Result [facility] (ID) [address] [place] [id number], [facility] [phone] * XR chest 1 view portable / [...] by Laura Berry PA-C. Stef Senior DO IMG DIAGNOSTIC IMAGING ORDERABLE [...] of patient and review of old charts Stef Senior DO PROCEDURE/MINOR SURGICAL ORDERAB LES Final Result * Red Top Extra Tubes (01/27/2025 10:24 AM EDT) HOLD SPECIMEN (SJ - BKR) Hold for add-ons. 01/27/2025 12:00 PM EDT [facility] Comment:Auto resulted. Blood Venipuncture / Unknown 01/27/2025 10:24 AM EDT 01/27/2025 10:30 AM EDT Stef Senior DO LAB BLOOD ORDERABLES Final Resul t [facility] [address] [phone] * Blue Top Extra Tubes (01/27/2025 10:24 AM EDT) HOLD SPECIMEN (SJ - BKR) Hold for add-ons. 01/27/2025 12:00 PM EDT [facility] Comment:Auto resulted. Blood Venipuncture / Unknown 01/27/2025 10:24 AM EDT 01/27/2025 10:30 AM EDT us Stef Senior DO LAB BLOOD ORDERABLES Final Resul t [facility] [address] [place] [address] * (ABNORMAL) CBC with Auto Diff (01/27/2025 10:24 AM EDT) WBC 14.1(H) 4.8 - 10.8 K/ L 01/27/2025 10:40 AM EDT [facility] RBC 2.47(L) 3.50 - 5.20 M/ L 01/27/2025 10:40 AM EDT [facility] Hemoglobin 7.0(L) 11.7 - 15.8 GM/DL 01/27/2025 10:40 AM EDT [facility] Hematocrit 21.0(L) 35.0 - 47.0 % 01/27/2025 10:40 AM EDT [facility] MCV 85 81 - 101 fL 01/27/2025 10:40 AM EDT [facility] MCH 28.3 27.0 - 34.0 pg 01/27/2025 10:40 AM EDT [facility] MCHC 33.3 32.0 - 36.0 GM/DL 01/27/2025 10:40 AM EDT [facility] RDW 15.9(H) 11.5 - 14.5 % 01/27/2025 10:40 AM EDT [facility] Platelets 136(L) 150 - 400 K/CU MM 01/27/2025 10:40 AM EDT [facility] MPV 10.3 9.4 - 12.4 fL 01/27/2025 10:40 AM EDT [facility] Nucleated Red Blood Cell 0.0 0 - 0.2 % 01/27/2025 10:40 AM EDT [facility] NRBC Absolute <0.01 0 - 0.012 K/ul 01/27/2025 10:40 AM EDT [facility] Blood Venipuncture / Unknown 01/27/2025 10:24 AM EDT 01/27/2025 10:30 AM EDT Narrative [facility] - 01/27/2025 10:40 AM [...] DO LAB BLOOD ORDERABLES Final Resul t [facility] [address] [place] [address] * (ABNORMAL) Manual Differential (01/27/2025 10:24 AM EDT) Total Counted 100 01/27/2025 11:00 AM EDT [facility] % Neutros (manual) 55 15 - 67 % 01/27/2025 11:00 AM EDT [facility] % Lymphs (manual) 40 10 - 50 % 01/27/2025 11:00 AM EDT [facility] % Monos (manual) 2 2 - 10 % 01/27/2025 11:00 AM EDT [facility] % Eos (manual) 1 0 - 7 % 01/27/2025 11:00 AM EDT [facility] % Baso (manual) 2 0 - 2 % 01/27/2025 11:00 AM EDT [facility] Variant LY Present(A) (none) 01/27/2025 11:00 AM EDT [facility] Platelet Estimate Adequate Adequate 01/27/2025 11:00 AM EDT [facility] Smudge Cells Present 01/27/2025 11:00 AM EDT [facility] ANC# 7.76 K/ L 01/27/2025 11:00 AM EDT [facility] Blood Venipuncture / Unknown 01/27/2025 10:24 AM EDT 01/27/2025 10:30 AM EDT [employer] LAB BLOOD ORDERABLES Final Resul t Performing Organization Address [facility] Co de Phone Number [facility] [address] [place] [address] * High Sensitivity Troponin I (01/27/2025 10:24 AM EDT) Troponin I High Sensitivity (pg/mL) 20.8 4 - 60.3 pg/mL 01/27/2025 11:02 AM EDT [facility] Comment: Troponin Result (pg/mL) [...] 10:24 AM EDT 01/27/2025 10:30 AM EDT [employer] LAB BLOOD ORDERABLES Final Resul t Performing Organization Address City/[facility]/ZIP Co de Phone Number [facility] [address] [place] [address] * (ABNORMAL) PROBNP (01/27/2025 10:24 AM EDT) [facility] ProBNP (pg/mL) 5,368(H) 5 - 450 pg/mL 01/27/2025 11:02 AM EDT [facility] Blood Venipuncture / Unknown 01/27/2025 10:24 AM EDT 01/27/2025 10:30 AM EDT Stef Senior LAB BLOOD ORDERABLES Final Resul t Performing Organization Address [facility] Co de Phone Number [facility] [address] [place] [address] * (ABNORMAL) Magnesium (01/27/2025 10:24 AM EDT) [facility] Magnesium 1.7(L) 1.8 - 2.4 mg/dL 01/27/2025 11:02 AM EDT [facility] Blood Venipuncture / Unknown 01/27/2025 10:24 AM EDT 01/27/2025 10:30 AM EDT Stef Senior DO LAB BLOOD ORDERABLES Final Resul t Performing Organization Address [facility] de Phone Number [facility] [address] [place] [address] * (ABNORMAL) Comprehensive metabolic panel (01/27/2025 10:24 AM EDT) [facility] Sodium 138 136 - 145 meq/L 01/27/2025 11:03 AM EDT [facility] Potassium 3.6 3.5 - 5.1 meq/L 01/27/2025 11:03 AM EDT [facility] Chloride 102 98 - 107 meq/L 01/27/2025 11:03 AM EDT [facility] CO2 28 21 - 32 meq/L 01/27/2025 11:03 AM EDT [facility] Calcium 7.8(L) 8.5 - 10.1 mg/dL 01/27/2025 11:03 AM [facility] Glucose 126(H) 74 - 100 mg/dL 01/27/2025 11:03 AM [facility] BUN 49(H) 7 - 18 mg/dL 01/27/2025 11:03 AM [facility] Creatinine 3.60(H) 0.55 - 1.10 mg/dL 01/27/2025 11:03 AM [facility] BUN/Creatinine 14 01/27/2025 11:03 AM [facility] Albumin 2.6(L) 3.4 - 5.0 g/dL 01/27/2025 11:03 AM [facility] Alkaline Phosphatase 82 46 - 116 U/L 01/27/2025 11:03 AM [facility] ALT 22 12 - 78 U/L 01/27/2025 11:03 AM [facility] AST 31 15 - 37 U/L 01/27/2025 11:03 AM [facility] Total Bilirubin 0.4 0.2 - 1.0 mg/dL 01/27/2025 11:03 AM [facility] Protein, Total 5.2(L) 6.4 - 8.2 gm/dL 01/27/2025 11:03 AM [facility] Anion Gap 12 11 - 22 01/27/2025 11:03 AM [facility] A/G Ratio 1.0 01/27/2025 11:03 AM [facility] Globulin 2.6 g/dL 01/27/2025 11:03 AM [facility] Osmolality Calc 290.2 mOsm/kg 11:03 AM [facility] eGFR (mL/min/1.73m2) 13(L) >=60 mL/min/1.7 3m2 01/27/2025 11:03 AM [facility] Comment:ESTIMATED GFR IS NOT ACCURATE CREATININE CLEARANCE IN PREDICTING GLOMERULAR FILTRATION RATE. ESTIMATED GFR IS NOT APPLICABLE FOR DIALYSIS PATIENTS. Blood Venipuncture / Unknown 01/27/2025 10:24 AM EDT 01/27/2025 10:30 AM EDT Stef Senior DO LAB BLOOD ORDERABLES Final Resul t Performing Organization Address City/State/[facility] Co de Phone Number [facility] [address] [place] [address], [facility] [phone] * ECG 12 lead (01/27/2025 10:18 AM EDT) VENTRICULAR RATE EKG/MIN 68 BPM GE MUSE ATRIAL RATE (MCT) 68 BPM GE MUSE DC Interval 120 ms GE MUSE QRS-INTERVAL (MSEC) 98 ms GE MUSE QT Interval 456 ms GE MUSE QTC Interval 484 ms GE MUSE P [place] 58 degrees GE MUSE R AXIS (MCT) -42 degrees GE MUSE T Wave [place] 69 degrees GE MUSE [place] Diagnosis Normal sinus rhythm Left axis deviation Cannot rule out Anterior infarct , age undetermined Abnormal ECG No previous ECGs available Confirmed by Nikole HYATT RICHARD ([id number]) on 01/27/2025 12:29:56 PM GE MUSE 01/27/2025 10:1 8 AM EDT 01/27/2025 12:29 PM EDT Stef Senior DO ECG ORDERABLES Final Result Performing Organization Address City/[facility] de Phone Number GE MUSE from Last 3 Months Insurance [facility] MEDICARE HMO Care Teams Assistant Superintendent Relationship Specialty Start Date End Date Ellie Powell MD [address] [facility] [place] [address] PCP - General Nephrology 01/27/25
--- OUTSIDE RECORDS SUMMARY | 2025-01-30 17:04 | XMS_ITS ---
Author Organization [facility] Care Team Providers Care Marketing Communications Leader Name Role Phone Kenneth Powell Unavailable Unavailable Allergies and adverse reactions Code CodeSystem Substance Reaction Severity StartDate Concern Status 59000 RXNORM Lipitor Unknown 12/20/2024 active 723 RXNORM Amoxicillin Unknown 12/20/2024 active Care Team Name Role Address Phone Organization Dates Kenneth Powell PCP [address] [place] [address], [id number], [place] States (Office): : (Pager): [facility] 12/20/2024 - present Goals Section Goals Description Status Target Date [...] Time Value Entered By Feeding or Eating 01/27/2025 Independent dgcombs Toileting 01/27/2025 Extensive Assistance dgcombs Transferring 01/27/2025 Extensive Assistance dgcombs Immunizations Immunization Status Vaccine Details Vaccine Code [...] cancelled Pneumococcal conjugate vaccine 20-valent (PCV20), polysaccharide EIC609 conjugate, adjuvant, preservative free 216 CVX created date: 12/23/2024 consent date: 12/23/2024 Fall-2023/Winter- 2024 cancelled SARS-COV-2 (COVID-19) vaccine, mRNA, spike protein, LNP, preservative free, espinoza-sucrose, 30 mcg/0.3 mL dose 309 CVX created date: 12/23/2024 consent date: 12/23/2024 Medications Section Medication Name Status Code CodeSystem Dose Route Frequency Admin Type Sig Text Start Date End Date HydrALAZINE HCl Tablet 50 MG aborted 993470 RXNORM 1 tablet Oral one time a day Routine Give 1 tablet by mouth one time a day for hypert ension 12/29 Bumetanide Tablet 1 MG active 212351 RXNORM 1 tablet Oral one time a day Routine Give 1 tablet by mouth one time a day for fluid retent ion 2024 - HYDROcodone-A cetaminophen Oral Tablet 5-325 MG active 564880 RXNORM 1 tablet Oral as needed PRN Give 1 tablet by mouth every 8 hours as needed for for modera te pain 4-6 2024 - Cefepime HCl Solution 1 GM/50ML complete d 649336 3 RXNORM 1 gram Intrave nous every 24 hours Routine Use 1 gram intrav enousl y every 24 hours for wound infect ion for 14 Days pharm contac papito to clarif y sendin g 1GM/ 100mg 01/04 clonazePAM Oral Tablet Disintegratin g 0.5 MG active 352024 RXNORM 0.5 mg Oral as needed PRN Give 0.5 mg by mouth every 12 hours as needed for anxiet y 2024 - Linezolid Oral Tablet 600 MG aborted 176164 RXNORM 1 tablet Oral two times a day Routine Give 1 tablet by mouth two times a day for chroni c foot ulcer 01/26 NIFEdipine ER Tablet Extended Release 24 Hour 60 MG active 377558 RXNORM 1 tablet Oral one time a day Routine Give 1 tablet by mouth one time a day for hypert ension 2024 - Lactobacillus Oral Tablet active 271773 5 RXNORM 1 tablet Oral two times a day Routine Give 1 tablet by mouth two times a day for PROBIO TIC 2024 - Albuterol Sulfate Nebulization Solution (2.5 MG/3ML) 0.083% active 700958 RXNORM 3 ml Inhalat ion as needed PRN 3 ml inhale orally via nebuli zer every 4 hours as needed for SOA 2024 - Normal Saline Flush Intravenous Solution 0.9 % aborted 10 ml Intrave nous every day and political organizer Routine Use 10 ml intrav enousl y every day and political organizer for PICC care 01/08 Desenex External Powder 2 % active 536917 RXNORM n/a n/a Topical every day and political organizer Routine Apply to folds topica lly every day and political organizer for rednes s 2024 - Isosorbide Mononitrate ER Tablet Extended Release 24 Hour 60 MG active 864895 RXNORM 1 tablet Oral one time a day Routine Give 1 tablet by mouth one time a day for hypert ension 2024 - Atorvastatin Calcium Oral Tablet 40 MG active 974916 RXNORM 1 tablet Oral at bedtime Routine Give 1 tablet by mouth at bedtim e for hyperc holest erolem ia 2024 - Insulin Glargine Solution 100 UNIT/ML active 565562 RXNORM 10 unit Subcuta neous one time a day Routine Inject 10 unit subcut aneous ly one time a day for diabet es 2024 - Levothyroxine Sodium Oral Tablet 88 MCG active 440454 RXNORM 1 tablet Oral in the morning Routine Give 1 tablet by mouth in the mornin g for hypoth yroidi sm 2024 - Xarelto Oral Tablet 2.5 MG active 347285 7 RXNORM 1 tablet Oral two times a day Routine Give 1 tablet by mouth two times a day relate d to PERIPH ERAL VASCUL AR DISEAS E, UNSPEC IFIED (I73.9 ) 2024 - Valsartan Oral Tablet 160 MG aborted 286525 RXNORM 1 tablet Oral one time a day Routine Give 1 tablet by mouth one time a day for hypert ension 01/25 Clopidogrel Bisulfate Oral Tablet 75 MG active 283141 RXNORM 75 mg Oral one time a day Routine Give 75 mg by mouth one time a day relate d to PERIPH ERAL VASCUL AR DISEAS E, UNSPEC IFIED (I73.9 ) 2024 - Tubersol Solution 5 UNIT/0.1ML active 761025 RXNORM 0.1 ml Intrade rmal every political organizer Routine Inject 0.1 ml intrad ermall y every political organizer every 12 month( s) starti ng on the for 1 day(s) for Assess for TB exposu re To be admini stered within 72 hours upon admiss ion. Record result s 48 hours post-a dminis tratio n. 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 12/29 Aspirin Oral Capsule 81 MG active 346853 RXNORM 1 capsul e Oral one time a day Routine Give 1 capsul e by mouth one time a day relate d to PERIPH ERAL VASCUL AR DISEAS E, UNSPEC IFIED (I73.9 ) 2024 - Tubersol Solution 5 UNIT/0.1ML complete d 528619 RXNORM 0.1 ml Intrade rmal one time only One Time Only Inject 0.1 ml intrad ermall y one time only for Assess for TB exposu re for 1 Day To be admini stered 7-10 days follow ing admini strati on of Step 1. Record result s 48 hours post-a dminis tratio n. - Also record in Immuni zation tab. 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, UNSPEC IFIED (E11.4 0) 2024 - Mirtazapine Oral Tablet 7.5 MG aborted 205551 RXNORM 1 tablet Oral at bedtime Routine Give 1 tablet by mouth at bedtim e for poor appeti te 01/23 [facility] Wound/Burn External Pad aborted n/a n/a Topical every day shift Routine Apply to right heel topica lly every day shift for eschar right heel Cleans e with ns pat dry cover with ABD pad cover with kerlix 12/29 [facility] Wound/Burn External Pad aborted n/a n/a Topical every day shift Routine Apply to left heel topica lly every day shift for eschar left heel Cleans e with ns pat dry cover with ABD pad wrap with kerlix . 01/07 HydrALAZINE HCl Tablet 50 MG aborted 465605 RXNORM 1 tablet Oral three times a day Routine Give 1 tablet by mouth three times a day for hypert ension 01/11 Loperamide HCl Capsule 2 MG active 687332 RXNORM 1 capsul e Oral as needed PRN Give 1 capsul e by mouth every 6 hours as needed for diarrh ea 2024 - [facility] Wound/Burn External Pad aborted n/a n/a Topical every day shift Routine Apply to left heel topica lly every day shift every Mon, Wed, Fri for eschar left heel Cleans e with ns pat dry cover with ABD pad wrap with kerlix . 01/10 Ondansetron HCl Tablet 4 MG active 173490 RXNORM 1 tablet Oral as needed PRN Give 1 tablet by mouth every 8 hours as needed for Nausea and Vomiti ng 2024 - Potassium Chloride ER Tablet Extended Release 20 [...] Days 01/21 Zinc Sulfate Capsule 220 MG active 716697 RXNORM 1 capsul e Oral one time a day Routine Give 1 capsul e by mouth one time a day for wound healin g for 14 Days 02/04 Remeron Oral Tablet 15 MG active 931805 RXNORM 1 tablet Oral at bedtime Routine Give 1 tablet by mouth at bedtim e for appeti te relate d to END STAGE RENAL DISEAS E (N18.6 ) 2024 - Promethazine HCl Suppository 12.5 MG active 583743 RXNORM 1 suppos itory Rectal as needed PRN Insert 1 suppos itory rectal ly every 6 hours as needed for Nausea and Vomiti ng relate d to END STAGE RENAL DISEAS E (N18.6 );NEPH ROTIC SYNDRO ME WITH UNSPEC IFIED MORPHO LOGIC CHANGE S (N04.9 );ANXI ETY DISORD ER, UNSPEC IFIED (F41.9 );DEPE NDENCE ON RENAL DIALYS IS (Z99.2 ) 2024 - Potassium Chloride ER Tablet Extended Release 20 MEQ active 462533 RXNORM 1 tablet Oral two times a day Routine Give 1 tablet by mouth two times a day for low potass ium for 2 Days 01/28 Valsartan Oral Tablet 160 MG active 933172 RXNORM 1 tablet Oral one time a day Routine Give 1 tablet by mouth one time a day for hypert ension may hold on dialys is days. 2024 - Mental Status Section Date Assessment Total Score [...] IN OTHER CHRONIC DISEASES CLASSIFIED ELSEWHERE 12/21/[id number] active 2 ANXIETY DISORDER, UNSPECIFIED 12/21/[address] active 3 CELLULITIS OF LEFT LOWER LIMB 12/21/[address] active 4 CELLULITIS OF RIGHT LOWER LIMB 12/21/[address] active 5 DEPENDENCE ON RENAL DIALYSIS 12/21/[address] active 6 ENCOUNTER FOR ADJUSTMENT AND MANAGEMENT OF VASCULAR ACCESS DEVICE 12/21/[address] active 7 ENCOUNTER FOR FITTING AND ADJUSTMENT OF EXTRACORPOREAL DIALYSIS CATHETER 12/21/[address] active 8 ENCOUNTER FOR FITTING AND ADJUSTMENT OF EXTRACORPOREAL DIALYSIS CATHETER 12/21/19 25 12/21/[address] completed 9 END STAGE RENAL DISEASE 12/21/[address] active 10 ENTEROCOCCUS THE CAUSE OF DISEASES CLASSIFIED ELSEWHERE 12/21/[address] active 11 HEART FAILURE, UNSPECIFIED 12/21/[address] active 12 HYPERLIPIDEMIA, UNSPECIFIED 12/21/[address] active 13 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 KIDNEY DISEASE, OR UNSPECIFIED CHRONIC KIDNEY DISEASE 12/21/[address] active 14 HYPOTHYROIDISM, UNSPECIFIED 12/21/[address] active 15 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 12/21/[address] active 16 [facility] (CURRENT) USE OF INSULIN 12/21/[address] active 17 METHICILLIN RESISTANT STAPHYLOCOCCUS AUREUS INFECTION, UNSPECIFIED SITE 12/21/[address] active 18 NEPHROTIC SYNDROME WITH UNSPECIFIED MORPHOLOGIC CHANGES 12/21/[address] active 19 PERIPHERAL VASCULAR DISEASE, UNSPECIFIED 12/21/[address] active 20 PRESSURE ULCER OF RIGHT HEEL, UNSPECIFIED STAGE 12/21/19 25 12/20/[address] completed 21 TYPE 2 DIABETES MELLITUS WITH DIABETIC NEUROPATHY, UNSPECIFIED 12/21/[address] active 22 TYPE 2 DIABETES MELLITUS WITH FOOT ULCER 12/21/[address] active 23 UNSPECIFIED ESCHERICHIA COLI [E. COLI] THE CAUSE OF DISEASES CLASSIFIED ELSEWHERE 12/21/[address] active 24 UNSPECIFIED HEARING LOSS, UNSPECIFIED EAR 12/21/[address] active 25 UNSPECIFIED OSTEOARTHRITIS, UNSPECIFIED SITE 12/21/[address] active Reason for Referral No Reasons for Referral Entered Diagnostic Results Result Code Code System Date Test Result Interpretation Reference Range Status Notes [id number] LOINC 01/24 Basic Metabolic Panel (BMP) / PDFReport Completed Result for: RivasStacey dykes ( 7, F) [phone] 99-9 [facility] 01/24 PDFReport Value: See Attachment Units: Normal Final 3094-0 [facility] 01/24 Blood Urea Nitrogen (BUN) Value: 37 Units: mg/dL High 9 - 23 Final 3097-3 [facility] 01/24 BUN/Creatini ne Ratio Value: 10.88 Units: ratio Normal 9.00 - 20.00 Final 23227-1 [facility] 01/24 Calcium (Ca) Value: 7.8 Units: mg/dL Low 8.7-10.4 Final 2027- [facility] 01/24 Carbon Dioxide (ECO2) Value: 28 Units: mmol/L Normal 20 - 31 Final 2074-0 [facility] 01/24 Chloride (Cl) Value: 100 Units: mmol/L Normal 98 - 107 Final 2160-0 [facility] 01/24 Creatinine Value: 3.40 Units: mg/dL High .55-1.02 Final 23770-3 [facility] 01/24 eGFR Value: 13.44 Units: mL/min/{1.7 3_m2} Low > 59 Final 2345-7 [facility] 01/24 Glucose Value: 99 Units: mg/dL Normal 74-106 Final 2823-3 [facility] 01/24 Potassium (K) Value: 3.1 Units: mmol/L Low 3.4 - 5.1 Final 2951-2 [facility] 01/24 Sodium (Na) Value: 142 Units: mmol/L Normal 136-145 Final DS9529- 6 [facility] 01/17 CBC with Differential / Platelets / CBC with Differential / Platelets / PDFReport / Complete Metabolic Panel (CMP) / TSH Completed Result for: Stacey Rivas ( 7, F) [phone] 99-9 [facility] 01/17 PDFReport Value: See Attachment Units: Normal Final 69344-7 [facility] 01/17 TSH Value: 3.05 Units: u[IU]/mL Normal 0.55-4.78 Final 704-7 [facility] 01/17 Baso (Absolute) Value: 0.06 Units: 10*3/uL Normal 0.00 - 0.30 Final 706-2 [facility] 01/17 Basos Value: 0.40 Units: % Normal 0.00 - 2.00 Final 713-8 [facility] 01/17 Eos Value: 5.7 Units: % Normal 1.0 - 7.0 Final 711-2 [facility] 01/17 Eos (Absolute) Value: 0.81 Units: 10*3/uL High 0.00 - 0.50 Final 4544-3 [facility] 01/17 Hematocrit Value: 22.2 Units: % Low 36.0 - 46.0 Final 718-7 [facility] 01/17 Hemoglobin Value: 7.2 Units: g/dL Low 12.0 - 16.0 Final 736-9 [facility] 01/17 Lymphocytes Value: 42.3 Units: % High 18.0 - 42.0 Final 731-0 [facility] 01/17 Lymphocytes (Absolute) Value: 5.97 Units: 10*3/uL High 1.00 - 4.80 Final 785-6 [facility] 01/17 MCH Value: 28.9 Units: pg Normal 27.0 - 34.0 Final 786-4 [facility] 01/17 MCHC Value: 32.4 Units: g/dL Normal 32.0 - 36.0 Final 787-2 [facility] 01/17 MCV Value: 89.2 Units: % Normal 80.0 - 100.0 Final 5905-5 [facility] 01/17 Monocytes Value: 7.8 Units: % Normal 3.5-9.0 Final 742-7 [facility] 01/17 Monocytes (Absolute) Value: 1.10 Units: 10*3/uL High 0.10 - 0.90 Final 30058-1 [facility] 01/17 MPV Value: 10.1 Units: fL Normal 7.2-12.3 Final 770-8 [facility] 01/17 Neutrophils Value: 42.00 Units: % Normal 40.00 - 75.00 Final 751-8 [facility] 01/17 Neutrophils (Absolute) Value: 5.90 Units: 10*3/uL Normal 1.60 - 7.70 Final 777-3 [facility] 01/17 Platelets Value: 151 Units: 10*3/uL Normal 150.000 - 450.000 Final 789-8 [facility] 01/17 RBC Value: 2.49 Units: x10^6/UL Low 3.92 - 5.13 Final 788-0 [facility] 01/17 RDW Value: 14.8 Units: % binding Normal 12.3 - 15.4 Final 6690-2 [facility] 01/17 WBC Value: 14.10 Units: 10*3/uL High 3.40 - 9.60 Final 704-7 [facility] 01/17 Baso (Absolute) Value: 0.06 Units: 10*3/uL Normal 0.00 - 0.30 Final 706-2 [facility] 01/17 Basos Value: 0.40 Units: % Normal 0.00 - 2.00 Final 713-8 [facility] 01/17 Eos Value: 5.7 Units: % Normal 1.0 - 7.0 Final 12 [facility] 01/17 Eos (Absolute) Value: 0.81 Units: 10*3/uL High 0.00 - 0.50 Final 4544-3 [facility] 01/17 Hematocrit Value: 22.2 Units: % Low 36.0 - 46.0 Final 87 [facility] 01/17 Hemoglobin Value: 7.2 Units: g/dL Low 12.0 - 16.0 Final 69 [facility] 01/17 Lymphocytes Value: 42.3 Units: % High 18.0 - 42.0 Final 731-0 [facility] 01/17 Lymphocytes (Absolute) Value: 5.97 Units: 10*3/uL High 1.00 - 4.80 Final 785-6 [facility] 01/17 MCH Value: 28.9 Units: pg Normal 27.0 - 34.0 Final 786-4 [facility] 01/17 MCHC Value: 32.4 Units: g/dL Normal 32.0 - 36.0 Final 7872 [facility] 01/17 MCV Value: 89.2 Units: % Normal 80.0 - 100.0 Final 59055 [facility] 01/17 Monocytes Value: 7.8 Units: % Normal 3.5-9.0 Final 742-7 [facility] 01/17 Monocytes (Absolute) Value: 1.10 Units: 10*3/uL High 0.10 - 0.90 Final 93258-6 [facility] 01/17 MPV Value: 10.1 Units: fL Normal 7.2-12.3 Final 770-8 [facility] 01/17 Neutrophils Value: 42.00 Units: % Normal 40.00 - 75.00 Final 7518 [facility] 01/17 Neutrophils (Absolute) Value: 5.90 Units: 10*3/uL Normal 1.60 - 7.70 Final 777-3 [facility] 01/17 Platelets Value: 151 Units: 10*3/uL Normal 150.000 - 450.000 Final 789 [facility] 01/17 RBC Value: 2.49 Units: x10^6/UL Low 3.92 - 5.13 Final 7880 [facility] 01/17 RDW Value: 14.8 Units: % binding Normal 12.3 - 15.4 Final 6690-2 [facility] 01/17 WBC Value: 14.10 Units: 10*3/uL High 3.40 - 9.60 Final 1759-0 [facility] 01/17 A/G Ratio Value: 1.8 Units: Normal 1.2 - 2.2 Final 1750-12 [facility] 01/17 Albumin Value: 2.9 Units: g/dL Low 3.2 - 4.8 Final 686 [facility] 01/17 Alkaline Phosphatase Value: 84 Units: U/L Normal 46 - 116 Final 1741-11 [facility] 01/17 ALT (SGPT) Value: 18 Units: U/L Normal 10 - 49 Final 1920-01 [facility] 01/17 AST (SGOT) Value: 20.0 Units: U/L Normal < 34.0 Final 1974-07 [facility] 01/17 Bilirubin, Total Value: <0.2 Units: mg/dL Low 0.3 - 1.2 Final 0 [facility] 01/17 Blood Urea Nitrogen (BUN) Value: 16 Units: mg/dL Normal 9 - 23 Final 3096-08 [facility] 01/17 BUN/Creatini ne Ratio Value: 5.11 Units: ratio Low 9.00 - 20.00 Final 58454-2 [facility] 01/17 Calcium (Ca) Value: 7.3 Units: mg/dL Low 8.7-10.4 Final 2027-9 [facility] 01/17 Carbon Dioxide (ECO2) Value: 29 Units: mmol/L Normal 20 - 31 Final 5-0 [facility] 01/17 Chloride (Cl) Value: 103 Units: mmol/L Normal 98 - 107 Final 2160-0 [facility] 01/17 Creatinine Value: 3.13 Units: mg/dL High .55-1.02 Final 98447-1 [facility] 01/17 eGFR Value: 14.85 Units: mL/min/{1.7 3_m2} Low > 59 Final 36651-4 [facility] 01/17 Globulin, Total Value: 1.6 Units: Normal 1.5 - 4.5 Final 2345-7 [facility] 01/17 Glucose Value: 66 Units: mg/dL Low 74-106 Final 2823-3 [facility] 01/17 Potassium (K) Value: 2.6 Units: mmol/L Low 3.4 - 5.1 Final 2885-2 [facility] 01/17 Protein, Total Value: 4.5 Units: g/dL Low 5.7 - 8.2 Final 2951-2 [facility] 01/17 Sodium (Na) Value: 143 Units: mmol/L Normal 136-145 Final UV6492- 6 [facility] 01/10 CBC with Differential / Platelets / CBC with Differential / Platelets / PDFReport Completed Result for: Stacey Rivas ( 7, F) [phone] 99-9 [facility] 01/10 PDFReport Value: See Attachment Units: Normal Final 704-7 [facility] 01/10 Baso (Absolute) Value: 0.07 Units: 10*3/uL Normal 0.00 - 0.30 Final 706-2 [facility] 01/10 Basos Value: 0.60 Units: % Normal 0.00 - 2.00 Final 713-8 [facility] 01/10 Eos Value: 4.6 Units: % Normal 1.0 - 7.0 Final 711-2 [facility] 01/10 Eos (Absolute) Value: 0.55 Units: 10*3/uL High 0.00 - 0.50 Final 4544-3 [facility] 01/10 Hematocrit Value: 23.6 Units: % Low 36.0 - 46.0 Final 718-7 [facility] 01/10 Hemoglobin Value: 7.6 Units: g/dL Low 12.0 - 16.0 Final 736-9 [facility] 01/10 Lymphocytes Value: 45.2 Units: % High 18.0 - 42.0 Final 731-0 [facility] 01/10 Lymphocytes (Absolute) Value: 5.35 Units: 10*3/uL High 1.00 - 4.80 Final 785-6 [facility] 01/10 MCH Value: 28.5 Units: pg Normal 27.0 - 34.0 Final 786-4 [facility] 01/10 MCHC Value: 32.2 Units: g/dL Normal 32.0 - 36.0 Final 787-2 [facility] 01/10 MCV Value: 88.4 Units: % Normal 80.0 - 100.0 Final 5905-5 [facility] 01/10 Monocytes Value: 4.3 Units: % Normal 3.5-9.0 Final 742-7 [facility] 01/10 Monocytes (Absolute) Value: 0.51 Units: 10*3/uL Normal 0.10 - 0.90 Final 32608-3 [facility] 01/10 MPV Value: 11.2 Units: fL Normal 7.2-12.3 Final 770-8 [facility] 01/10 Neutrophils Value: 45.10 Units: % Normal 40.00 - 75.00 Final 751-8 [facility] 01/10 Neutrophils (Absolute) Value: 5.34 Units: 10*3/uL Normal 1.60 - 7.70 Final 777-3 [facility] 01/10 Platelets Value: 103 Units: 10*3/uL Low 150.000 - 450.000 Final 789-8 [facility] 01/10 RBC Value: 2.67 Units: x10^6/UL Low 3.92 - 5.13 Final 788-0 [facility] 01/10 RDW Value: 14.5 Units: % binding Normal 12.3 - 15.4 Final 6690-2 [facility] 01/10 WBC Value: 11.84 Units: 10*3/uL High 3.40 - 9.60 Final 704-7 [facility] 01/10 Baso (Absolute) Value: 0.07 Units: 10*3/uL Normal 0.00 - 0.30 Final 706-2 [facility] 01/10 Basos Value: 0.60 Units: % Normal 0.00 - 2.00 Final 713-8 [facility] 01/10 Eos Value: 4.6 Units: % Normal 1.0 - 7.0 Final 711-2 [facility] 01/10 Eos (Absolute) Value: 0.55 Units: 10*3/uL High 0.00 - 0.50 Final 4544-3 [facility] 01/10 Hematocrit Value: 23.6 Units: % Low 36.0 - 46.0 Final 718-7 [facility] 01/10 Hemoglobin Value: 7.6 Units: g/dL Low 12.0 - 16.0 Final 736-9 [facility] 01/10 Lymphocytes Value: 45.2 Units: % High 18.0 - 42.0 Final 731-0 [facility] 01/10 Lymphocytes (Absolute) Value: 5.35 Units: 10*3/uL High 1.00 - 4.80 Final 785-6 [facility] 01/10 MCH Value: 28.5 Units: pg Normal 27.0 - 34.0 Final 786-4 [facility] 01/10 MCHC Value: 32.2 Units: g/dL Normal 32.0 - 36.0 Final 787-2 [facility] 01/10 MCV Value: 88.4 Units: % Normal 80.0 - 100.0 Final 5905-5 [facility] 01/10 Monocytes Value: 4.3 Units: % Normal 3.5-9.0 Final 742-7 [facility] 01/10 Monocytes (Absolute) Value: 0.51 Units: 10*3/uL Normal 0.10 - 0.90 Final 59904-2 [facility] 01/10 MPV Value: 11.2 Units: fL Normal 7.2-12.3 Final 770-8 [facility] 01/10 Neutrophils Value: 45.10 Units: % Normal 40.00 - 75.00 Final 751-8 [facility] 01/10 Neutrophils (Absolute) Value: 5.34 Units: 10*3/uL Normal 1.60 - 7.70 Final 777-3 [facility] 01/10 Platelets Value: 103 Units: 10*3/uL Low 150.000 - 450.000 Final 789-8 [facility] 01/10 RBC Value: 2.67 Units: x10^6/UL Low 3.92 - 5.13 Final 788-0 [facility] 01/10 RDW Value: 14.5 Units: % binding Normal 12.3 - 15.4 Final 6690-2 [facility] 01/10 WBC Value: 11.84 Units: 10*3/uL High 3.40 - 9.60 Final 123-999 99-9 [facility] 01/10 PDFReport Value: See Attachment Units: Normal Final 704-7 [facility] 01/10 Baso (Absolute) Value: 0.07 Units: 10*3/uL Normal 0.00 - 0.30 Final 706-2 [facility] 01/10 Basos Value: 0.60 Units: % Normal 0.00 - 2.00 Final 713-8 [facility] 01/10 Eos Value: 4.6 Units: % Normal 1.0 - 7.0 Final 711-2 [facility] 01/10 Eos (Absolute) Value: 0.55 Units: 10*3/uL High 0.00 - 0.50 Final 4544-3 [facility] 01/10 Hematocrit Value: 23.6 Units: % Low 36.0 - 46.0 Final 718-7 [facility] 01/10 Hemoglobin Value: 7.6 Units: g/dL Low 12.0 - 16.0 Final 736-9 [facility] 01/10 Lymphocytes Value: 45.2 Units: % High 18.0 - 42.0 Final 731-0 [facility] 01/10 Lymphocytes (Absolute) Value: 5.35 Units: 10*3/uL High 1.00 - 4.80 Final 785-6 [facility] 01/10 MCH Value: 28.5 Units: pg Normal 27.0 - 34.0 Final 786-4 [facility] 01/10 MCHC Value: 32.2 Units: g/dL Normal 32.0 - 36.0 Final 787-2 [facility] 01/10 MCV Value: 88.4 Units: % Normal 80.0 - 100.0 Final 5905-5 [facility] 01/10 Monocytes Value: 4.3 Units: % Normal 3.5-9.0 Final 742-7 [facility] 01/10 Monocytes (Absolute) Value: 0.51 Units: 10*3/uL Normal 0.10 - 0.90 Final 81999-2 [facility] 01/10 MPV Value: 11.2 Units: fL Normal 7.2-12.3 Final 770-8 [facility] 01/10 Neutrophils Value: 45.10 Units: % Normal 40.00 - 75.00 Final 751-8 [facility] 01/10 Neutrophils (Absolute) Value: 5.34 Units: 10*3/uL Normal 1.60 - 7.70 Final 777-3 [facility] 01/10 Platelets Value: 103 Units: 10*3/uL Low 150.000 - 450.000 Final 789-8 [facility] 01/10 RBC Value: 2.67 Units: x10^6/UL Low 3.92 - 5.13 Final 788-0 [facility] 01/10 RDW Value: 14.5 Units: % binding Normal 12.3 - 15.4 Final 6690-2 [facility] 01/10 WBC Value: 11.84 Units: 10*3/uL High 3.40 - 9.60 Final 704-7 [facility] 01/10 Baso (Absolute) Value: 0.07 Units: 10*3/uL Normal 0.00 - 0.30 Final 706-2 [facility] 01/10 Basos Value: 0.60 Units: % Normal 0.00 - 2.00 Final 713-8 [facility] 01/10 Eos Value: 4.6 Units: % Normal 1.0 - 7.0 Final 711-2 [facility] 01/10 Eos (Absolute) Value: 0.55 Units: 10*3/uL High 0.00 - 0.50 Final 4544-3 [facility] 01/10 Hematocrit Value: 23.6 Units: % Low 36.0 - 46.0 Final 718-7 [facility] 01/10 Hemoglobin Value: 7.6 Units: g/dL Low 12.0 - 16.0 Final 736-9 [facility] 01/10 Lymphocytes Value: 45.2 Units: % High 18.0 - 42.0 Final 731-0 [facility] 01/10 Lymphocytes (Absolute) Value: 5.35 Units: 10*3/uL High 1.00 - 4.80 Final 785-6 [facility] 01/10 MCH Value: 28.5 Units: pg Normal 27.0 - 34.0 Final 786-4 [facility] 01/10 MCHC Value: 32.2 Units: g/dL Normal 32.0 - 36.0 Final 787-2 [facility] 01/10 MCV Value: 88.4 Units: % Normal 80.0 - 100.0 Final 5905-5 [facility] 01/10 Monocytes Value: 4.3 Units: % Normal 3.5-9.0 Final 742-7 [facility] 01/10 Monocytes (Absolute) Value: 0.51 Units: 10*3/uL Normal 0.10 - 0.90 Final 00193-4 [facility] 01/10 MPV Value: 11.2 Units: fL Normal 7.2-12.3 Final 770-8 [facility] 01/10 Neutrophils Value: 45.10 Units: % Normal 40.00 - 75.00 Final 751-8 [facility] 01/10 Neutrophils (Absolute) Value: 5.34 Units: 10*3/uL Normal 1.60 - 7.70 Final 777-3 [facility] 01/10 Platelets Value: 103 Units: 10*3/uL Low 150.000 - 450.000 Final 789-8 [facility] 01/10 RBC Value: 2.67 Units: x10^6/UL Low 3.92 - 5.13 Final 788-0 [facility] 01/10 RDW Value: 14.5 Units: % binding Normal 12.3 - 15.4 Final 6690-2 [facility] 01/10 WBC Value: 11.84 Units: 10*3/uL High 3.40 - 9.60 Final Test Code Code System Name Date 01/24/2025 Basic Metabolic Panel (BMP) 01/24/2025 01/17/2025 CBC with Differential / Plat elets 01/17/2025 Complete Metabolic Panel (CM P) 01/17/2025 01/10/2025 CBC with Differential / Plat elets 01/10/2025 01/10/2025 CBC with Differential / Plat elets 01/10/2025 Social History Social History Observation Description Start Date End Date Code Code System Current Smoking Status Tobacco smoking consumption unknown 624800461 SNOMED CT Sex Assigned At Female 1950 11608-4 [facility] Gender Identity Female [id number] Vital Signs Code Code System Vitals Name Values and Units Timing Information 8462-4 [facility] Blood Pressure-Diastolic Value=58 Un its=mmHg 01/27/2025 8480-6 [facility] Blood Pressure-Systolic Value=97 Uni ts=mmHg 01/27/2025 28498-5 [facility] O2 % BldC Oximetry Value=95.0 Units= % 01/27/2025 9279-1 [facility] Respiratory Rate Value=18.0 Units=/m in 01/27/2025 8310-5 [facility] Body Temperature Value=97.9 Units= F 01/27/2025 8867-4 [facility] Heart rate Value=50.0 Units=/min 2339-0 [facility] Blood Sugar Wqltl=218.0 Units=mg/dL 01/27/2025 31097-8 [facility] Weight Jugak=520.2 Units=Lbs 73299-6 [facility] Pain Level Value=0.0 01/22/2025 8302-2 [facility] Height Value=68.0 Units=Inches 12/21/2024
--- NOTE | 2025-01-30 17:24 | ECG_ITS ---
APPROVED REPORT Exam: Resting ECG HR:67 bpm ECG Measurements Heart Rate 67 AXES QRSd 106 QRS -6 QT 430 T 73 QTc 445 Conclusion SUPRAVENTRICULAR RHYTHM POSSIBLE ANTERIOR MYOCARDIAL INFARCTION , PROBABLY OLD [30 ms Q WAVE IN V3/V4, OR R < 0.2 mV IN V4] ABNORMAL RHYTHM ECG UNCONFIRMED REPORT Electronically signed by : Stef Mendieta, 01/30/2025 23:35:14
--- NOTE | 2025-01-30 17:25 | XR_ITS ---
PROCEDURE INFORMATION: Exam: XR Chest Exam date and time: 01/30/2025 5:51 PM Age: 74 years old Clinical indication: Dyspnea TECHNIQUE: Imaging protocol: Radiologic exam of the chest. Views: 1 view. COMPARISON: CT ABDOMEN PELVIS WO CON 11/23/2024 9:43 PM FINDINGS: Tubes, catheters and devices: Right internal jugular dialysis catheter with tip terminating over the lower SVC. Lungs: Minimal bibasilar atelectasis. No consolidation. Pleural spaces: Small bilateral pleural effusions. Heart/Mediastinum: No cardiomegaly. Bones/joints: No acute findings. IMPRESSION: Small bilateral pleural effusions. Minimal bibasilar atelectasis.
--- NOTE | 2025-01-30 17:29 | PC.NURSE ---
Faxed [facility] records at [phone]
--- NOTE | 2025-01-30 17:35 | HMH.EDGENADL ---
Discharge Plan Disposition Patient Disposition: Home, Self-Care Prescriptions Prescriptions: No Action Santyl 250 unit/gram ointment 1 applic topical DAILY PRN (Reason: wound care) Qty: 30 1RF Rx Instructions: Wound size 2.5cm x 2.0 cm x 0 cm= 26 grams (give qty#1-30 gram tube) apply 2.58 cm per application x 30 days. cefepime 1 gram recon soln 1 g IM ONCE hydrocodone-acetaminophen 5-325 mg tablet 1 tab PO Q8H PRN miconazole nitrate [Desenex] 2 % powder 1 applic topical BID clopidogrel 75 mg tablet 75 mg PO DAILY gabapentin 300 mg capsule 300 mg PO HS isosorbide mononitrate 60 mg tablet extended release 24 hr 60 mg PO DAILY nifedipine 60 mg tablet extended release 60 mg PO DAILY valsartan 160 mg tablet 160 mg PO DAILY mirtazapine 7.5 mg tablet 7.5 mg PO HS rivaroxaban [Xarelto] 2.5 mg tablet 2.5 mg PO BID insulin glargine 100 unit/mL (3 mL) insulin pen 10 unit SQ ONCE hydralazine 50 mg tablet 50 mg PO TID 30 Days Qty: 90 3RF loperamide 2 mg capsule 2 mg PO Q6H PRN promethazine 12.5 mg tablet 12.5 mg PO Q6H PRN mirtazapine [Remeron] 15 mg tablet 15 mg PO DAILY zinc sulfate 220 mg capsule PO levothyroxine 88 mcg tablet 88 mcg PO DAILY Qty: 30 0RF insulin lispro [Humalog KwikPen Insulin] 100 unit/mL insulin pen 0 - 14 unit SQ AC Referrals Follow up/Referrals: Provider,Referral, [Primary Care Provider, Medical] - See instructions Activity Restrictions/Add. Instructions Additional Instructions/Restrictions: Please return to the emergency department if you develop any new or worsening symptoms or become concerned for your health. Clinical Impressions Clinical Impression: Generalized weakness, Unable to care for self, ESRD (end stage renal disease), Chronic anemia Print Language Print Language: Hungarian Discharge ED Provider: Quan Richardson Adult HPI <Jack Mendieta MD - Last Filed: 01/30/25 23:13> General Chief complaint: Weakness Stated complaint: Weakness Time Seen by Provider: 01/30/25 17:10 Mode of Arrival: EMS Source of Information: Patient Description of Symptoms (Recalled from ER Triage Doc. by RN): patient states she just got out of [facility] yesterday was in there for physical therpay for 2-3 months she reports they did not do any therapy while there, she reports she is unable to walk, has increase weakness, nausea and diarrhea. she is also a dialysis patient History of Present Illness HPI narrative: Patient is a 74-year-old female presented today with generalized weakness and inability to care for herself at home. States that since October of this year she has had multiple stays in nursing homes which have been secondary primarily to end-stage renal disease and lower extremity edema she has been on dialysis now for 2 months has a right permacath in her chest dialyzes Friday. Every time she gets dialysis she gets very lightheaded and potentially hypotensive at times. She dialyzed yesterday was only able to complete 1 hour of her normal 3-hour dialysis session because of hypotension. She states that she is also been anemic requiring multiple transfusions lately. She denies any melena no one has checked her stool to her knowledge. She does state that she is on anticoagulation or blood thinners but is unsure about which ones she is on from historical standpoint she is documented to have Plavix and Xarelto Intermatic agent list. Patient states that she got out of the assisted yesterday never actually improved from a symptomatic standpoint but she had to go home because she was unable to afford the incremental $500 a day incremental cost at which point she went home and could not care for herself therefore she came back to the emergency department. Related Data Home Medications ?Medication ?Instructions ?Recorded ?Confirmed insulin lispro 100 unit/mL 0 - 14 unit SQ AC 12/10/24 01/26/25 subcutaneous pen (Humalog KwikPen (U-100) Insulin) cefepime 1 gram solution for 1 g IM ONCE 12/29/24 01/26/25 injection clopidogrel 75 mg tablet 75 mg PO DAILY 12/29/24 01/26/25 gabapentin 300 mg capsule 300 mg PO HS 12/29/24 01/26/25 hydrocodone 5 mg-acetaminophen 325 1 tab PO Q8H PRN 12/29/24 01/26/25 mg tablet insulin glargine 100 unit/mL (3 10 unit SQ ONCE Diabetes 12/29/24 01/26/25 mL) subcutaneous pen isosorbide mononitrate 60 mg 60 mg PO DAILY 12/29/24 01/26/25 tablet,extended release 24 hr miconazole nitrate 2 % topical 1 applic topical BID 12/29/24 01/26/25 powder (Desenex) mirtazapine 7.5 mg tablet 7.5 mg PO HS 12/29/24 01/26/25 nifedipine 60 mg tablet,extended 60 mg PO DAILY 12/29/24 01/26/25 release rivaroxaban 2.5 mg tablet (Xarelto) 2.5 mg PO BID 12/29/24 01/26/25 valsartan 160 mg tablet 160 mg PO DAILY 12/29/24 01/26/25 loperamide 2 mg capsule 2 mg PO Q6H PRN 01/26/25 01/26/25 mirtazapine 15 mg tablet (Remeron) 15 mg PO DAILY 01/26/25 01/26/25 promethazine 12.5 mg tablet 12.5 mg PO Q6H PRN 01/26/25 01/26/25 zinc sulfate 220 mg capsule mg PO 01/26/25 01/26/25 Previous Rx's ?Medication ?Instructions ?Recorded levothyroxine 88 mcg tablet 88 mcg PO DAILY #30 tabs 11/28/24 collagenase clostridium histo. 250 1 applic topical DAILY PRN wound 12/29/24 unit/gram topical ointment (Santyl) care #30 grams hydralazine 50 mg tablet 50 mg PO TID 30 days #90 tabs 12/29/24 Allergies Allergy/AdvReac Type Severity Reaction Status Date / Time moxifloxacin Allergy Severe S-ANAPHYLAX Verified 01/26/25 10:32 IS Sulfa (Sulfonamide Allergy Mild NA-NAUSEA/V Verified 01/26/25 10:32 Antibiotics) OMITING atorvastatin AdvReac Severe Other Verified 01/26/25 10:32 [facility] <Jack Mendieta MD - Last Filed: 01/30/25 23:13> [facility] Disclaimer: The information contained in this section may have been updated after the patient was seen, as this information can be updated by other users. Medical History (Updated 01/30/25 @ 17:28 by Jack Mendieta MD) Atypical angina Fatigue Abnormal findings on diagnostic imaging of heart and coronary circulation Other forms of dyspnea Edema Dialysis patient SOB (shortness of breath) Essential hypertension CLL (chronic lymphocytic leukemia) CKD (chronic kidney disease) Type 2 diabetes mellitus with diabetic polyneuropathy Hypertension (HFpEF) heart failure with preserved ejection fraction Peripheral arterial occlusive disease Hyperlipidemia CKD (chronic kidney disease) stage 4, GFR 15-29 ml/min Elevated BUN Callus of foot Hypervolemia Leukocytosis UTI (urinary tract infection) Urinary tract infectious disease Sepsis without septic shock Noncompliance Acute kidney injury superimposed on chronic kidney disease Diabetic foot ulcer Sinusitis Hyperkalemia Urinary tract infection Hyperkalemia High anion gap metabolic acidosis Renal failure Falls frequently Viral URI with cough Skin infection, bacterial Avulsed toenail Ulcer of right great toe due to diabetes mellitus Frequent falls Statin intolerance Hyperlipidemia Bradycardia Syncope and collapse Syncope Falls Neuropathy Osteopenia Onychodystrophy Pain of toe of right foot Fracture of second toe, right, closed Edema of toe Acquired hammer toe Closed rib fracture Fall Hyperglycemia due to type 2 diabetes mellitus Bacteremia due to Klebsiella pneumoniae UTI due to Klebsiella species Gram-negative bacteremia DKA (diabetic ketoacidoses) Hyperglycemia due to type 2 diabetes mellitus CLL (chronic lymphocytic leukemia) History of hypertension Diabetes mellitus Surgical History H/O lithotripsy History of cholecystectomy Family History Other Cancer Congestive heart failure (CHF) Heart disease Lymphoma Social History Smoking Status: Never smoker alcohol intake: never substance use type: denies use current occupational status: retired Travel in the last 8 weeks?: None household members: none housing: house caffeine: Yes Have you lived/traveled outside [place] in past 30 days?: No Contact w/someone who lives/traveled outside US past 30 days?: No Exposure to someone with infectious disease in past 14 days?: No Do you have a fever (greater than 100.4 F or 38 C)?: No Have you tested positive for COVID-19?: No Exposed to someone with COVID-19 in past 14 days?: No Do you have a sore throat?: No Do you have a cough?: No Do you have any weakness?: Yes Do you have any diarrhea?: No Are you experiencing any unusual bleeding?: No Do you have any muscle aches/pain?: No Do you have any abdominal pain?: No Are you experiencing loss of taste or smell?: No Other Medical History Have you received the Flu Vaccine for this season: No Have you received the Pneumonia Vaccine: Yes <Jack Mendieta MD - Last Filed: 01/30/25 23:13> ROS Obtained: Yes All systems reviewed & no additional complaints except as documented Physical Exam <Jack Mendieta MD - Last Filed: 01/30/25 23:13> General General appearance: alert Respiratory Respiratory exam: Present normal lung sounds bilaterally Cardiovascular Cardiovascular exam: Present regular rate Neurological Exam Neurological exam: Present alert and oriented X3 Medical Decision Making <Jack Mendieta MD - Last Filed: 01/30/25 23:13> Medical Records Screening: Per USPSTF and CDC recommendations, given the prevalence of disease in our region, it is our hospital?s policy to screen for HIV and viral Hepatitis for all patients aged 18 and over and those with ongoing risk factors. Xu Inquiry Pt receiving controlled substance: No Vital Signs: 01/30/25 16:54 01/30/25 17:00 01/30/25 17:30 Temperature 98.4 F Temperature Source Oral Pulse Rate 73 74 Pulse Rate [Right Radial] 71 Respiratory Rate 16 Blood Pressure 145/62 H 157/71 H Blood Pressure [Right Arm] 144/75 H Blood Pressure Mean Blood Pressure Mean [Right Arm] 98 Blood Pressure Source Blood Pressure Source [Right Arm] Automatic Cuff Blood Pressure Position Blood Pressure Position [Right Arm] Sitting 02 Sat by Pulse Oximetry 97 95 95 Oxygen Delivery Method Room Air 01/30/25 18:26 01/30/25 19:00 01/30/25 19:00 Temperature Temperature Source Pulse Rate 64 Pulse Rate [Right Radial] Respiratory Rate 13 13 Blood Pressure 141/58 H 151/64 H Blood Pressure [Right Arm] Blood Pressure Mean 93 Blood Pressure Mean [Right Arm] Blood Pressure Source Blood Pressure Source [Right Arm] Blood Pressure Position Blood Pressure Position [Right Arm] 02 Sat by Pulse Oximetry 96 Oxygen Delivery Method Room Air 01/30/25 19:15 01/30/25 19:30 01/30/25 19:30 Temperature Temperature Source Pulse Rate Pulse Rate [Right Radial] Respiratory Rate 13 12 Blood Pressure 153/61 H Blood Pressure [Right Arm] Blood Pressure Mean 91 Blood Pressure Mean [Right Arm] Blood Pressure Source Blood Pressure Source [Right Arm] Blood Pressure Position Blood Pressure Position [Right Arm] 02 Sat by Pulse Oximetry Oxygen Delivery Method 01/30/25 19:45 01/30/25 19:52 01/30/25 20:00 Temperature Temperature Source Pulse Rate 63 Pulse Rate [Right Radial] Respiratory Rate 13 13 13 Blood Pressure 153/61 H Blood Pressure [Right Arm] Blood Pressure Mean Blood Pressure Mean [Right Arm] Blood Pressure Source Blood Pressure Source [Right Arm] Blood Pressure Position Blood Pressure Position [Right Arm] 02 Sat by Pulse Oximetry 96 Oxygen Delivery Method 01/30/25 20:00 01/30/25 20:15 01/30/25 20:30 Temperature Temperature Source Pulse Rate Pulse Rate [Right Radial] Respiratory Rate 15 13 Blood Pressure 147/60 H Blood Pressure [Right Arm] Blood Pressure Mean 93 Blood Pressure Mean [Right Arm] Blood Pressure Source Blood Pressure Source [Right Arm] Blood Pressure Position Blood Pressure Position [Right Arm] 02 Sat by Pulse Oximetry Oxygen Delivery Method 01/30/25 20:30 01/30/25 20:45 01/30/25 21:00 Temperature Temperature Source Pulse Rate Pulse Rate [Right Radial] Respiratory Rate 14 13 Blood Pressure 143/60 H Blood Pressure [Right Arm] Blood Pressure Mean 87 Blood Pressure Mean [Right Arm] Blood Pressure Source Blood Pressure Source [Right Arm] Blood Pressure Position Blood Pressure Position [Right Arm] 02 Sat by Pulse Oximetry Oxygen Delivery Method 01/30/25 21:00 01/30/25 21:15 01/30/25 21:30 Temperature Temperature Source Pulse Rate Pulse Rate [Right Radial] Respiratory Rate 15 13 Blood Pressure 146/60 H Blood Pressure [Right Arm] Blood Pressure Mean 88 Blood Pressure Mean [Right Arm] Blood Pressure Source Blood Pressure Source [Right Arm] Blood Pressure Position Blood Pressure Position [Right Arm] 02 Sat by Pulse Oximetry Oxygen Delivery Method 01/30/25 21:30 01/30/25 21:45 01/30/25 22:00 Temperature Temperature Source Pulse Rate Pulse Rate [Right Radial] Respiratory Rate 12 Blood Pressure 149/64 H 143/58 H Blood Pressure [Right Arm] Blood Pressure Mean 92 86 Blood Pressure Mean [Right Arm] Blood Pressure Source Blood Pressure Source [Right Arm] Blood Pressure Position Blood Pressure Position [Right Arm] 02 Sat by Pulse Oximetry Oxygen Delivery Method 01/30/25 22:00 01/30/25 22:15 01/30/25 22:30 Temperature Temperature Source Pulse Rate 62 Pulse Rate [Right Radial] Respiratory Rate 13 15 12 Blood Pressure Blood Pressure [Right Arm] Blood Pressure Mean Blood Pressure Mean [Right Arm] Blood Pressure Source Blood Pressure Source [Right Arm] Blood Pressure Position Blood Pressure Position [Right Arm] 02 Sat by Pulse Oximetry 96 Oxygen Delivery Method 01/30/25 22:30 01/30/25 22:42 01/30/25 22:45 Temperature Temperature Source Pulse Rate 63 62 Pulse Rate [Right Radial] Respiratory Rate 12 13 Blood Pressure 143/61 H 143/61 H Blood Pressure [Right Arm] Blood Pressure Mean 87 Blood Pressure Mean [Right Arm] Blood Pressure Source Blood Pressure Source [Right Arm] Blood Pressure Position Blood Pressure Position [Right Arm] 02 Sat by Pulse Oximetry 97 96 Oxygen Delivery Method 01/30/25 23:00 01/30/25 23:00 01/30/25 23:15 Temperature Temperature Source Pulse Rate 61 Pulse Rate [Right Radial] Respiratory Rate 13 22 Blood Pressure 155/71 H Blood Pressure [Right Arm] Blood Pressure Mean 99 Blood Pressure Mean [Right Arm] Blood Pressure Source Blood Pressure Source [Right Arm] Blood Pressure Position Blood Pressure Position [Right Arm] 02 Sat by Pulse Oximetry 95 Oxygen Delivery Method 01/30/25 23:30 01/30/25 23:30 01/30/25 23:45 Temperature Temperature Source Pulse Rate 62 63 Pulse Rate [Right Radial] Respiratory Rate 17 13 Blood Pressure 143/63 H Blood Pressure [Right Arm] Blood Pressure Mean 98 Blood Pressure Mean [Right Arm] Blood Pressure Source Blood Pressure Source [Right Arm] Blood Pressure Position Blood Pressure Position [Right Arm] 02 Sat by Pulse Oximetry 97 96 Oxygen Delivery Method 01/31/25 00:00 01/31/25 00:00 01/31/25 00:18 Temperature 98.4 F Temperature Source Oral Pulse Rate 61 61 Pulse Rate [Right Radial] Respiratory Rate 13 14 Blood Pressure 152/60 H 152/60 H Blood Pressure [Right Arm] Blood Pressure Mean 90 Blood Pressure Mean [Right Arm] Blood Pressure Source Automatic Cuff Blood Pressure Source [Right Arm] Blood Pressure Position Sitting Blood Pressure Position [Right Arm] 02 Sat by Pulse Oximetry 94 L Oxygen Delivery Method Room Air Lab Data Lab results reviewed: Yes I reviewed the patient's lab results. Lab Results 01/30/25 17:08: WBC 14.7 H, RBC 2.99 L, Hgb 8.4 L, Hct 26.3 L, MCV 88.0, MCH 28.1, MCHC 31.9, RDW 15.9, Plt Count 136 L, MPV 10.9 H, Neut % (Auto) 42.7, Lymph % (Auto) 45.1, [place] % (Auto) 6.1, Eos % (Auto) 4.6, Baso % (Auto) 0.4, Neut # (Auto) 6.3, Lymph # (Auto) 6.6 H, [place] # (Auto) 0.9, Eos # (Auto) 0.7 H, Baso # (Auto) 0.1, Total Counted 100, Neutrophils % (Manual) 47, Lymphocytes % (Manual) 43, Monocytes % (Manual) 7, Eosinophils % (Manual) 3, Platelet Estimate Normal, RBC Morphology Normal, PT 11.4, INR 1.03, APTT 24.8, Sodium 136, Potassium 3.6, Chloride 101, Carbon Dioxide 28, Anion Gap 10.6, BUN 42 H, Creatinine 2.10 H, Estimated Creat Clear 28, Estimated GFR 23 L, Est GFR ( Amer) 28 L, Glucose 173 H, Calcium 8.3 L, Phosphorus 1.9 L, Magnesium 1.7, Total Bilirubin 0.4, AST 43 H, ALT 20, Alkaline Phosphatase 91, Troponin I 0.01, NT-Pro-B Natriuret Pep 4580 H, Total Protein 5.9 L, Albumin 2.9 L, Globulin 3.0, Albumin/Globulin Ratio 1.0 L, TSH 3.61 01/30/25 17:08 01/30/25 17:08 Orders (Tests/Meds): ORDERS Category Date Time Status Consult to Case Management [CONS] Routine Cons 01/30/25 23:02 Active CXR --portable [XR chest portable] Stat Exams 01/30/25 17:25 Completed BNP [NT Pro Brain Natriuretic Pep.] Stat Lab 01/30/25 17:08 Completed CBC w/Auto Diff [Complete Blood Count Auto Diff] Stat Lab 01/30/25 17:08 Completed CMP [Comprehensive Metabolic Panel] Stat Lab 01/30/25 17:08 Completed Magnesium Stat Lab 01/30/25 17:08 Completed PT/PTT Stat Lab 01/30/25 17:08 Completed Phosphorous Stat Lab 01/30/25 17:08 Completed TSH [Thyroid Stimulating Hormone] Stat Lab 01/30/25 17:08 Completed Trop I [Troponin I] Stat Lab 01/30/25 17:08 Completed Medical Decision Narrative: Stable appearing 74-year-old with above history and physical very in a very difficult situation as she has multiple chronic medical problems leading to her decompensation over the last several months however from an insurance standpoint was unable to stay in the assisted as she was not able to afford the committal cost after 2 months. Therefore she returns to the emergency department. Will check her electrolytes H&H etc. However she states that she is really not having any new or different symptoms but has simply not improved from a medical standpoint over the last several months. Reassessment 8 PM labs at her baseline no indication from medical standpoint for definitive admission however patient is unable to care for herself at home this is a difficult situation. I had extensive discussions with her and her son Jose Luis and after giving multiple options we opted to discuss this case with hospice as she has no other options at the moment. I do not think that she needs to be transferred from a medical standpoint and largely she just needs care at home as this is getting to the end of her life with organ system dysfunction and just overall generalized decompensation. Patient is agreeable as is her son to have conversations with hospice and hospice will be coming later this evening to have an evaluation. The only major consideration is the fact that she is on dialysis still has a significant quality of life and is being maintained in life by her dialysis so whether not this will be considered palliative will be largely up to the hospice and her providers. Patient will be placed in ED observation until hospice is able to evaluate her and give us further recommendations. Reassessment 11:13 PM hospice is now here at the bedside care will be transitioned to Dr. Richardson pending hospice evaluation. <Quan Richardson MD - Last Filed: 01/31/25 02:17> Vital Signs: 01/30/25 16:54 01/30/25 17:00 01/30/25 17:30 Temperature 98.4 F Temperature Source Oral Pulse Rate 73 74 Pulse Rate [Right Radial] 71 Respiratory Rate 16 Blood Pressure 145/62 H 157/71 H Blood Pressure [Right Arm] 144/75 H Blood Pressure Mean Blood Pressure Mean [Right Arm] 98 Blood Pressure Source Blood Pressure Source [Right Arm] Automatic Cuff Blood Pressure Position Blood Pressure Position [Right Arm] Sitting 02 Sat by Pulse Oximetry 97 95 95 Oxygen Delivery Method Room Air 01/30/25 18:26 01/30/25 19:00 01/30/25 19:00 Temperature Temperature Source Pulse Rate 64 Pulse Rate [Right Radial] Respiratory Rate 13 13 Blood Pressure 141/58 H 151/64 H Blood Pressure [Right Arm] Blood Pressure Mean 93 Blood Pressure Mean [Right Arm] Blood Pressure Source Blood Pressure Source [Right Arm] Blood Pressure Position Blood Pressure Position [Right Arm] 02 Sat by Pulse Oximetry 96 Oxygen Delivery Method Room Air 01/30/25 19:15 01/30/25 19:30 01/30/25 19:30 Temperature Temperature Source Pulse Rate Pulse Rate [Right Radial] Respiratory Rate 13 12 Blood Pressure 153/61 H Blood Pressure [Right Arm] Blood Pressure Mean 91 Blood Pressure Mean [Right Arm] Blood Pressure Source Blood Pressure Source [Right Arm] Blood Pressure Position Blood Pressure Position [Right Arm] 02 Sat by Pulse Oximetry Oxygen Delivery Method 01/30/25 19:45 01/30/25 19:52 01/30/25 20:00 Temperature Temperature Source Pulse Rate 63 Pulse Rate [Right Radial] Respiratory Rate 13 13 13 Blood Pressure 153/61 H Blood Pressure [Right Arm] Blood Pressure Mean Blood Pressure Mean [Right Arm] Blood Pressure Source Blood Pressure Source [Right Arm] Blood Pressure Position Blood Pressure Position [Right Arm] 02 Sat by Pulse Oximetry 96 Oxygen Delivery Method 01/30/25 20:00 01/30/25 20:15 01/30/25 20:30 Temperature Temperature Source Pulse Rate Pulse Rate [Right Radial] Respiratory Rate 15 13 Blood Pressure 147/60 H Blood Pressure [Right Arm] Blood Pressure Mean 93 Blood Pressure Mean [Right Arm] Blood Pressure Source Blood Pressure Source [Right Arm] Blood Pressure Position Blood Pressure Position [Right Arm] 02 Sat by Pulse Oximetry Oxygen Delivery Method 01/30/25 20:30 01/30/25 20:45 01/30/25 21:00 Temperature Temperature Source Pulse Rate Pulse Rate [Right Radial] Respiratory Rate 14 13 Blood Pressure 143/60 H Blood Pressure [Right Arm] Blood Pressure Mean 87 Blood Pressure Mean [Right Arm] Blood Pressure Source Blood Pressure Source [Right Arm] Blood Pressure Position Blood Pressure Position [Right Arm] 02 Sat by Pulse Oximetry Oxygen Delivery Method 01/30/25 21:00 01/30/25 21:15 01/30/25 21:30 Temperature Temperature Source Pulse Rate Pulse Rate [Right Radial] Respiratory Rate 15 13 Blood Pressure 146/60 H Blood Pressure [Right Arm] Blood Pressure Mean 88 Blood Pressure Mean [Right Arm] Blood Pressure Source Blood Pressure Source [Right Arm] Blood Pressure Position Blood Pressure Position [Right Arm] 02 Sat by Pulse Oximetry Oxygen Delivery Method 01/30/25 21:30 01/30/25 21:45 01/30/25 22:00 Temperature Temperature Source Pulse Rate Pulse Rate [Right Radial] Respiratory Rate 12 Blood Pressure 149/64 H 143/58 H Blood Pressure [Right Arm] Blood Pressure Mean 92 86 Blood Pressure Mean [Right Arm] Blood Pressure Source Blood Pressure Source [Right Arm] Blood Pressure Position Blood Pressure Position [Right Arm] 02 Sat by Pulse Oximetry Oxygen Delivery Method 01/30/25 22:00 01/30/25 22:15 01/30/25 22:30 Temperature Temperature Source Pulse Rate 62 Pulse Rate [Right Radial] Respiratory Rate 13 15 12 Blood Pressure Blood Pressure [Right Arm] Blood Pressure Mean Blood Pressure Mean [Right Arm] Blood Pressure Source Blood Pressure Source [Right Arm] Blood Pressure Position Blood Pressure Position [Right Arm] 02 Sat by Pulse Oximetry 96 Oxygen Delivery Method 01/30/25 22:30 01/30/25 22:42 01/30/25 22:45 Temperature Temperature Source Pulse Rate 63 62 Pulse Rate [Right Radial] Respiratory Rate 12 13 Blood Pressure 143/61 H 143/61 H Blood Pressure [Right Arm] Blood Pressure Mean 87 Blood Pressure Mean [Right Arm] Blood Pressure Source Blood Pressure Source [Right Arm] Blood Pressure Position Blood Pressure Position [Right Arm] 02 Sat by Pulse Oximetry 97 96 Oxygen Delivery Method 01/30/25 23:00 01/30/25 23:00 01/30/25 23:15 Temperature Temperature Source Pulse Rate 61 Pulse Rate [Right Radial] Respiratory Rate 13 22 Blood Pressure 155/71 H Blood Pressure [Right Arm] Blood Pressure Mean 99 Blood Pressure Mean [Right Arm] Blood Pressure Source Blood Pressure Source [Right Arm] Blood Pressure Position Blood Pressure Position [Right Arm] 02 Sat by Pulse Oximetry 95 Oxygen Delivery Method 01/30/25 23:30 01/30/25 23:30 01/30/25 23:45 Temperature Temperature Source Pulse Rate 62 63 Pulse Rate [Right Radial] Respiratory Rate 17 13 Blood Pressure 143/63 H Blood Pressure [Right Arm] Blood Pressure Mean 98 Blood Pressure Mean [Right Arm] Blood Pressure Source Blood Pressure Source [Right Arm] Blood Pressure Position Blood Pressure Position [Right Arm] 02 Sat by Pulse Oximetry 97 96 Oxygen Delivery Method 01/31/25 00:00 01/31/25 00:00 01/31/25 00:18 Temperature 98.4 F Temperature Source Oral Pulse Rate 61 61 Pulse Rate [Right Radial] Respiratory Rate 13 14 Blood Pressure 152/60 H 152/60 H Blood Pressure [Right Arm] Blood Pressure Mean 90 Blood Pressure Mean [Right Arm] Blood Pressure Source Automatic Cuff Blood Pressure Source [Right Arm] Blood Pressure Position Sitting Blood Pressure Position [Right Arm] 02 Sat by Pulse Oximetry 94 L Oxygen Delivery Method Room Air Lab Data Lab Results 01/30/25 17:08: WBC 14.7 H, RBC 2.99 L, Hgb 8.4 L, Hct 26.3 L, MCV 88.0, MCH 28.1, MCHC 31.9, RDW 15.9, Plt Count 136 L, MPV 10.9 H, Neut % (Auto) 42.7, Lymph % (Auto) 45.1, [place] % (Auto) 6.1, Eos % (Auto) 4.6, Baso % (Auto) 0.4, Neut # (Auto) 6.3, Lymph # (Auto) 6.6 H, [place] # (Auto) 0.9, Eos # (Auto) 0.7 H, Baso # (Auto) 0.1, Total Counted 100, Neutrophils % (Manual) 47, Lymphocytes % (Manual) 43, Monocytes % (Manual) 7, Eosinophils % (Manual) 3, Platelet Estimate Normal, RBC Morphology Normal, PT 11.4, INR 1.03, APTT 24.8, Sodium 136, Potassium 3.6, Chloride 101, Carbon Dioxide 28, Anion Gap 10.6, BUN 42 H, Creatinine 2.10 H, Estimated Creat Clear 28, Estimated GFR 23 L, Est GFR ( Amer) 28 L, Glucose 173 H, Calcium 8.3 L, Phosphorus 1.9 L, Magnesium 1.7, Total Bilirubin 0.4, AST 43 H, ALT 20, Alkaline Phosphatase 91, Troponin I 0.01, NT-Pro-B Natriuret Pep 4580 H, Total Protein 5.9 L, Albumin 2.9 L, Globulin 3.0, Albumin/Globulin Ratio 1.0 L, TSH 3.61 Orders (Tests/Meds): ORDERS Category Date Time Status Consult to Case Management [CONS] Routine Cons 01/30/25 23:02 Active CXR --portable [XR chest portable] Stat Exams 01/30/25 17:25 Completed BNP [NT Pro Brain Natriuretic Pep.] Stat Lab 01/30/25 17:08 Completed CBC w/Auto Diff [Complete Blood Count Auto Diff] Stat Lab 01/30/25 17:08 Completed CMP [Comprehensive Metabolic Panel] Stat Lab 01/30/25 17:08 Completed Magnesium Stat Lab 01/30/25 17:08 Completed PT/PTT Stat Lab 01/30/25 17:08 Completed Phosphorous Stat Lab 01/30/25 17:08 Completed TSH [Thyroid Stimulating Hormone] Stat Lab 01/30/25 17:08 Completed Trop I [Troponin I] Stat Lab 01/30/25 17:08 Completed Medical Decision Narrative: Stable appearing 74-year-old with above history and physical very in a very difficult situation as she has multiple chronic medical problems leading to her decompensation over the last several months however from an insurance standpoint was unable to stay in the assisted as she was not able to afford the committal cost after 2 months. Therefore she returns to the emergency department. Will check her electrolytes H&H etc. However she states that she is really not having any new or different symptoms but has simply not improved from a medical standpoint over the last several months. Reassessment 8 PM labs at her baseline no indication from medical standpoint for definitive admission however patient is unable to care for herself at home this is a difficult situation. I had extensive discussions with her and her son Jose Luis and after giving multiple options we opted to discuss this case with hospice as she has no other options at the moment. I do not think that she needs to be transferred from a medical standpoint and largely she just needs care at home as this is getting to the end of her life with organ system dysfunction and just overall generalized decompensation. Patient is agreeable as is her son to have conversations with hospice and hospice will be coming later this evening to have an evaluation. The only major consideration is the fact that she is on dialysis still has a significant quality of life and is being maintained in life by her dialysis so whether not this will be considered palliative will be largely up to the hospice and her providers. Patient will be placed in ED observation until hospice is able to evaluate her and give us further recommendations. Reassessment 11:13 PM hospice is now here at the bedside care will be transitioned to Dr. Richardson pending hospice evaluation. Dylan SHEPHERD: I assumed care of the patient at the time of handoff from the prior provider. After extensive discussion, the plan between hospice and the patient's son was to have the patient go home via EMS pending hospice evaluation tomorrow. However, on discussion with patient, she reports that she only has help during parts of the day because her family member works during the day. She also reports that she does not have any plan or way to get to dialysis which she needs to obtain on Friday. Given this, it does not seem safe or appropriate to send the patient home. On further discussion, they have not tried to place her in a long-term group home facility as yet, only that she was kicked out of her rehab facility after running out of time. They are working on changing up her insurance as well. Unfortunately, we cannot admit her here for evaluation for long-term placement because we do not have dialysis capabilities. Given this, I called and spoke with [facility] who has dialysis capabilities and they graciously accepted the patient for further management. Critical Care <Jack Mendieta MD - Last Filed: 01/30/25 23:13> Critical Care Time Critical Care Time: No
[2025-01-30 17:50] LABS: Albumin Level 2.9 g/dl (3.5-5.0); Chloride 101 mmol/L (98-107); Potassium 3.6 mmoL/L (3.5-5.1); Sodium 136 mmol/L (136-145)
[2025-01-30 17:51] LABS: Hematocrit 26.3 % (37.0-47.0); Hemoglobin 8.4 g/dL (12.2-16.2); Immature Granulocytes % 1.1 %; Mean Corpuscular HGB Conc 31.9 g/dL (31.8-35.4); Mean Corpuscular Hemoglobin 28.1 pg (27.0-31.2); Mean Corpuscular Volume 88.0 fl (81-99); Nucleated Red Blood Cells % 0 %; Platelet Count 136 K/mm3 (142-424); Red Blood Count 2.99 M/mm3 (4.20-5.40); Red Cell Distribution Width-SD 48.4 fL; White Blood Count 14.7 K/mm3 (4.8-10.8)
[2025-01-30 17:52] LABS: Alanine Aminotransferase 20 U/L (12-78); Blood Urea Nitrogen 42 mg/dl (7-17); Creatinine Clearance Estimated 28 mL/min (50-200); Creatinine,Serum 2.10 mg/dl (0.52-1.04); Estimated Glomerular Filt Rate 23 ml/min (>60); GFR (African American) 28 ML/MIN (>60)
[2025-01-30 17:53] LABS: Albumin/Globulin Ratio 1.0 (1.1-1.8); Alkaline Phosphatase 91 U/L (38-126); Anion Gap 10.6 mEq/L (5-15); Aspartate Amino Transferase 43 U/L (14-36); Bilirubin,Total 0.4 mg/dl (0.2-1.3); Calcium 8.3 mg/dl (8.4-10.2); Carbon Dioxide 28 mmol/L (22.0-30.0); Globulin 3.0 g/dL (1.3-3.2); Glucose 173 mg/dl (74-100); Magnesium 1.7 mg/dl (1.6-2.3); Total Protein,Serum 5.9 g/dl (6.3-8.2)
[2025-01-30 17:57] LABS: Activated Partial Thrombo Time 24.8 seconds (22.8-30.6); INR 1.03 (0.9-1.1); Prothrombin Time 11.4 seconds (10.1-12.5)
[2025-01-30 18:03] LABS: NT Pro Brain Natriuretic Pep. 4580 pg/mL (0-450)
[2025-01-30 18:07] LABS: Troponin I 0.01 ng/ml (0.00-0.034)
[2025-01-30 18:09] LABS: Phosphorous 1.9 mg/dl (2.5-4.5)
[2025-01-30 18:24] LABS: RBC Morphology Normal; Total Cells Counted 100
[2025-01-30 18:27] LABS: Thyroid Stimulating Hormone 3.61 uIU/mL (0.465-4.68)
--- NOTE | 2025-01-30 18:44 | PC.NURSE ---
Provider sppoke to Jose Luis gordillo, r/t Pl;an of care
--- NOTE | 2025-01-30 18:54 | PC.NURSE ---
Contacted son, Jose Luis, r/t Hospice consult. Denies further questions at this time.
--- NOTE | 2025-01-30 19:05 | PC.NURSE ---
I spoke with Karla at Hospice requesting a consult. She is going to get all of the pts info entered and states she will have a nurse in contact with us. She states someone will come see her here tonight.
--- NOTE | 2025-01-30 21:10 | PC.NURSE ---
Hospice Nurse called at this time and reported that she is on her way from [facility].
[2025-01-31] VITALS: BP 152/60; PULSE 61; RESP 13; O2SAT 94
[2025-01-31 00:18] VITALS: BP 152/60; PULSE 63; RESP 16; TEMP 36.9; O2SAT 95
--- NOTE | 2025-01-31 00:20 | PC.NURSE ---
EMS arrived for pt transport back home. Upon entering the room pt stated she had no one to help care for her at home. Pt states her DIL is there but has to work at 8am. Pt states she would lay on the couch from 8am-5pm. Pt states she is unsbale to walk, unable to sit in a wheelchair, etc. Pt states she has one son in penitentiary and another son that works in [place] and is no help to her. Pt spoke with Hospice and Hospice is supposed to make a thorough assessment tomorrow. Pt states she doesn't think she wants hospice but also has no help at home and also has no way to get to dialysis appointments. After pt stated she was unable to walk, go to the restroom, etc it was determined that is was unsafe to d/c her home. This RN and Thalia, EMS spoke with Dr. Richardson and a call was placed to [facility] for possible dialysis and LTC placement.
--- NOTE | 2025-01-31 00:41 | PC.NURSE ---
Called [facility] regarding a transfer to [place]. stated they would call back
--- NOTE | 2025-01-31 02:08 | PC.NURSE ---
Pt has been accepted at [facility]. Awaiting bed assignment and admitting doc.
[2025-01-31 02:15] VITALS: PULSE 63; O2SAT 95
--- NOTE | 2025-01-31 13:15 | SW/DCPLANNER ---
I received a consult for this patient due to not being able to care for herself at home. Patient transferred to [facility] from ED.
== END 2025-01-31 02:42 | disposition home or self-care (01) ==
PROVIDERS: Student in an Organized Health Care Education/Training Program; Emergency Provider Emergency Medicine
DX: R53.1 Weakness (principal); D64.9 Anemia, unspecified; N18.6 End stage renal disease; Z78.9 Other specified health status; I10 Essential (primary) hypertension; E78.5 Hyperlipidemia, unspecified; E11.9 Type 2 diabetes mellitus without complications
CPT/HCPCS: 71045; 80053; 83735; 83880; 84100; 84443; 84484; 85007; 85025; 85027; 85610; 85730; 93005; 99284

== ENCOUNTER 2025-03-28 21:20 | Inpatient (IN) | payer MEDICARE, SELFPAY ==
--- OUTSIDE RECORDS SUMMARY | 2024-12-28 04:00 | XMS_ITS ---
Author Organization [facility] [place] Address [address] [place] [address] [place] [address] Care Team Providers Care Account General Manager Name Role Phone MARY GOODWIN Primary Care Provider REASON FOR VISIT [facility] DC 12/20 Problems Problem Type SNOMED Code ICD Code Onset Dates Problem Status W/U Status Risk Notes Problem Iron deficiency (34245273) Iron deficiency (E61.1) Active confirmed Problem 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) Active confirmed Problem Nephrotic syndrome (22313777) Nephrotic syndrome (N04.9) Active confirmed Problem Foot ulcer due to type 2 diabetes mellitus (1329389884227) Type 2 diabetes mellitus with foot ulcer (E11.621) Active confirmed Encounters Encounter Location Date Provider Diagnosis [facility] [place] [address] [place], [place] [id number] 12/28/2024 MARY GOODWIN Plan Of Treatment No Information Progress Notes * STACEY BOYD PDOB:[birth year] (74 yo F)Acc No.[id number]:12/28/2024 Progress Note Patient: Melania LANDRUMSTACEY SPANGLER Provider: Damon GOODWIN M.D., F.A.C.P. :1950 A ge:74 Y S ex:Female Date:12/28/2024 Address:[address] [place], [place] [address] Subjective: * Chief Complaints: * 1 . [facility] DC 12/20. * Medical History: Objective: * Vitals: Assessment: Plan: * Treatment: * * Electronic signature of GLEN GOODWIN MD on 03/29/2025 at 02:20 PM EDT Sign off status: Pending * Provider: Damon OGODWIN M.D., F.A.C.P. Date: 12/28/2024 Generated for Sandy braxton/Donald/Sheyla on: 0 03/29/2025 02:20 PM EDT
--- OUTSIDE RECORDS SUMMARY | 2024-12-28 04:00 | XMS_ITS ---
Author Organization [facility] [place] Address [address] [place] [address] [place] [address] Care Team Providers Care Operations Systems Specialist Name Role Phone MARY GOODWIN Primary Care Provider [phone] REASON FOR VISIT [facility] DC 12/20 Problems Problem Type SNOMED Code ICD Code Onset Dates Problem Status W/U Status Risk Notes Problem Iron deficiency (23533989) Iron deficiency (E61.1) Active confirmed Problem 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) Active confirmed Problem Nephrotic syndrome (55458029) Nephrotic syndrome (N04.9) Active confirmed Problem Foot ulcer due to type 2 diabetes mellitus (0894275778128) Type 2 diabetes mellitus with foot ulcer (E11.621) Active confirmed Encounters Encounter Location Date Provider Diagnosis [facility] [place] [address] [place], [place] [id number] 12/28/2024 AMRY GOODWIN Plan Of Treatment No Information Progress Notes * STACEY BOYD PDOB:[birth year] (74 yo F)Acc No.[id number]:12/28/2024 Progress Note Patient: Melania LANDRUMSTACEY SPANGLER Provider: Damon GOODWIN M.D., F.A.C.P. :1950 A ge:74 Y S ex:Female Date:12/28/2024 Address:[address] [place], [place] [address] Subjective: * Chief Complaints: * 1 . [facility] DC 12/20. * Medical History: Objective: * Vitals: Assessment: Plan: * Treatment: * * Electronic signature of GLEN GOODWIN MD on 03/28/2025 at 09:25 PM EDT Sign off status: Pending * Provider: Damon GOODWIN M.D., F.A.C.P. Date: 0 12/28/2024 Generated for Sandy braxton/Donald/Sheyla on: 0 03/28/2025 09:25 PM EDT
[2025-03-28] VITALS (14 sets, daily range): BP systolic 164–210; BP diastolic 67–104; PULSE 63–83; RESP 18; TEMP 36.9; O2SAT 95–100; BMI 30.4
--- NOTE | 2025-03-28 21:23 | CT_ITS ---
PROCEDURE INFORMATION: Exam: CT Abdomen And Pelvis Without Contrast Exam date and time: 03/28/2025 9:55 PM Age: 74 years old Clinical indication: Condition or disease; Kidney or ureter condition; Calculus (stone) in kidney; Additional info: Kidney stone TECHNIQUE: Imaging protocol: Computed tomography of the abdomen and pelvis without contrast. Radiation optimization: All CT scans at this facility use at least one of these dose optimization techniques: automated exposure control; mA and/or kV adjustment per patient size (includes targeted exams where dose is matched to clinical indication); or iterative reconstruction. COMPARISON: CT ABDOMEN PELVIS WO CON 11/23/2024 9:43 PM FINDINGS: Lungs: There are compressive changes at both lower lobes, left much greater than right. Pleural spaces: There are small right narrowed small to moderate left pleural effusions. Heart: There is a small pericardial effusion. Liver: Normal. No mass. Gallbladder and biliary ducts: The gallbladder is absent. There is no biliary ductal dilation. Pancreas: Normal. No ductal dilation. Spleen: Normal. No splenomegaly. Adrenal glands: Normal. No mass. Kidneys and ureters: No hydronephrosis. There are few tiny punctate calcifications within the left renal collecting system. The ureters are unremarkable. Stomach and bowel: Unremarkable. No obstruction. No mucosal thickening. Appendix: No evidence of appendicitis. Intraperitoneal space: Unremarkable. No free air. No significant fluid collection. Vasculature: Unremarkable. No abdominal aortic aneurysm. Lymph nodes: There are calcified granulomas within the left lung with associated calcified left hilar and mediastinal lymph nodes. Urinary bladder: There is intraluminal bladder air along foci of air in the posterior bladder wall. Reproductive: The uterus is absent. Bones/joints: There are moderate degenerative changes of the spine and hips. No acute fracture. Soft tissues: There is diffuse prominent dependent body wall edema. IMPRESSION: 1. Findings consistent with emphysematous cystitis. 2. Small right and small to moderate left pleural effusions with compressive changes of both lower lobes, left much greater than right. 3. Small pericardial effusion. 4. Other nonurgent findings as noted.
--- NOTE | 2025-03-28 21:24 | XR_ITS ---
PROCEDURE INFORMATION: Exam: XR Chest Exam date and time: 03/28/2025 9:49 PM Age: 74 years old Clinical indication: Shortness of breath; Additional info: Short of breath TECHNIQUE: Imaging protocol: Radiologic exam of the chest. Views: 1 view. COMPARISON: CR XR CHEST PORTABLE 01/30/2025 5:51 PM FINDINGS: Lungs: There is left retrocardiac density with obscuration of the left hemidiaphragm consistent with infiltrate and/or atelectasis. Pleural spaces: There is mild blunting of the lateral costophrenic angles, left greater than right, which may represent pleural thickening or pleural effusions. Heart/Mediastinum: Unremarkable. No cardiomegaly. Vasculature: Unremarkable. Bones/joints: Unremarkable. IMPRESSION: 1. Left retrocardiac infiltrate and/or atelectasis. 2. Suspected small bilateral effusions [id number].
--- OUTSIDE RECORDS SUMMARY | 2025-03-28 21:26 | XMS_ITS | Encounter Summary ---
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
--- OUTSIDE RECORDS SUMMARY | 2025-03-28 21:26 | XMS_ITS | Encounter Summary ---
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
--- OUTSIDE RECORDS SUMMARY | 2025-03-28 21:26 | XMS_ITS | Encounter Summary ---
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
--- OUTSIDE RECORDS SUMMARY | 2025-03-28 21:26 | XMS_ITS | Clinical Summary ---
Author Organization [facility] Address [address] [place] [address] Care Team Providers Care Front End Application Developer Name Role Phone Lila Parekh APRN Primary Care Provider +1 [phone] Allergies Active Allergy Reactions Criticality Noted Date [...] (03/10/2018): Added automatically from request for surgery [id number] Type 2 diabetes mellitus 02/21/2015 Overview (02/14/2016): [...] ventricular function, medical management will be continued.2005, [facility] nonobstructive.November 2014, [facility] at [facility] with fixed anteroapical defect, EF 79%. [...] (1 - 1- dose 75+ series) 12/28/2023 INFLUENZA VACCINE 01/28/2025 COVID-19 Vaccine ( - 2023-2 5 season) 2025 Procedures Procedure Name Priority Date/Time Associated Diagnosis Comments HEMOGLOBIN A1C STAT 03/19/2018 7:31 AM EDT LIPID PANEL STAT 03/19/2018 7:31 AM EDT from Last 3 Months or Most Recently Relevant to Health Maintenance Results * (ABNORMAL) Hemoglobin A1c (03/19/2018 7:31 AM EDT) Hemoglobin A1C 10.10(H) 4.80 - 5.60 % 03/19/2018 10:33 AM EDT [facility] Blood Line / Unknown 03/19/2018 7: 31 AM EDT 03/19/2018 9:37 AM EDT Narrative [facility] - 03/19/2018 10:33 AM EDT [place] [employer] recommends maintenance of Hemoglobin A1C at 7.0% or lower. Goals for Hemoglobin A1C reduction may need to be modified if hypoglycemia is a problem. us Augustina Ray APRN LAB BLOOD ORDERABLES Final Result [facility]
[address] [place] [address], * (ABNORMAL) Lipid Panel (03/19/2018 7:31 AM EDT) Total Cholesterol 241(H) 0 - 200 mg/dL 03/19/2018 8:20 AM EDT [facility] Triglycerides 290(H) 0 - 150 mg/dL 03/19/2018 8:20 AM EDT [facility] HDL Cholesterol 46 40 - 60 mg/dL 03/19/2018 8:20 AM EDT [facility] LDL Cholesterol 169(H) 0 - 130 mg/dL 03/19/2018 8:20 AM EDT [facility] Blood Line / Unknown 03/19/2018 7: 31 AM EDT 03/19/2018 7:38 AM EDT Narrative [facility] - 03/19/2018 8:20 AM EDT Cholesterol [...] Ray APRN LAB BLOOD ORDERABLES Final Result [facility]
[address] [place] [address], from Last 3 Months or Most Recently Relevant to Health Maintenance Insurance MEDICARE ADVANTAGE HMO Care Teams Front End Application Developer Relationship Specialty Start Date End Date Lial Parekh APRN [address] [place] [address] PCP - General Nurse Practitioner 01/14/24
--- OUTSIDE RECORDS SUMMARY | 2025-03-28 21:26 | XMS_ITS | Encounter Summary ---
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
--- OUTSIDE RECORDS SUMMARY | 2025-03-28 21:26 | XMS_ITS | Patient Health Record ---
Author Organization [facility] Address [address] [place] [address] Care Team Providers Care Offender Job Retention Specialist Name Role Phone MARY GOODWIN Primary Care Provider Ariana Puente Unavailable [phone] Reason For Referral No Information Medications Medication [...] Orally EVERY 8 HOURS; Duration: 7 days 01/31/2025 Active Gabapentin 300 MG 1 capsule Orally AT BEDTIME; Duration: 7 days 01/31/2025 Active Problems Problem Type SNOMED Code ICD Code Onset Dates Problem Status W/U Status Risk Notes Problem Methicillin resistant Staphylococcus aureus infection (251992053) Methicillin resistant Staphylococcus aureus infection as the cause of diseases classified elsewhere (B95.62) Active confirmed Problem Diabetic renal disease (972586460) 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 confirmed Problem Foot ulcer due to type 2 diabetes mellitus (4609569756578) Type 2 diabetes mellitus with foot ulcer (E11.621) Active confirmed Problem Iron deficiency (00089173) Iron deficiency (E61.1) Active confirmed Problem Mixed hyperlipidemia (885416442) Mixed hyperlipidemia (E78.2) Active confirmed Problem Cellulitis of right lower limb (9629523831386833 4) Cellulitis of right lower limb (L03.115) Active confirmed Problem Cellulitis of left lower limb (5614988407362943 9) Cellulitis of left lower limb (L03.116) Active confirmed Problem 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) Active confirmed Problem End stage renal disease (99152400) End stage renal disease (N18.6) Active confirmed Problem Anxiety (38484476) Anxiety (F41.9) Active confirmed Problem Benign essential hypertension (5009929) Benign essential hypertension (I10) Active confirmed Problem Hypothyroidism (18601150) Hypothyroidism (E03.9) Active confirmed Problem Primary osteoarthritis (090138779) Primary osteoarthritis involving multiple joints (M15.0) Active confirmed Problem Diabetes mellitus type 2 (94904400) Diabetes mellitus type 2, uncontrolled (E11.65) Active confirmed Problem Peripheral vascular disease (053683627) Peripheral vascular disease (I73.9) Active confirmed Problem Nephrotic syndrome (06551494) Nephrotic syndrome (N04.9) Active confirmed Problem Dependence on hemodialysis (353983293) Dependence on hemodialysis (Z99.2) Active confirmed Problem Acute metabolic acidosis (E87.21) Active confirmed Encounters Encounter Location Date Provider Diagnosis [facility] [place] [address] [place] [address] 12/22/2024 Ariana Kwame [facility] [place] [address] [place] [address] 12/22/2024 Ariana Puente [facility] [place] [address] [place] [address] 01/28/2025 MARY GOODWIN [facility] [place] [address] [place] [address] 01/28/2025 MARY GOODWIN [facility] [place] [address] [place] [address] 01/28/2025 MARY GOODWIN [facility] [place] [address] [place] [address] 01/28/2025 MARY GOODWIN Plan Of Treatment No Information Insurance Providers Payer Name Payer Address Payer Phone Subscriber Number Group Number Insured Name Patient Relationship to Insured Coverage Start Date Coverage End Date [employer] MEDICARE [address] [address] [place] [address] [id number] STACEY BOYD Self - patient is the insured
--- OUTSIDE RECORDS SUMMARY | 2025-03-28 21:26 | XMS_ITS | Clinical Summary ---
Author Organization [facility] Address [address] [id number] Care Team Providers Care Remarketing Rep Name Role Phone SilverAubree livingston Oksana ROSE Primary Care Provider [phone]- [phone] Allergies Active Allergy Reactions Criticality Noted Date [...] complication, with long-term current use of insulin USE DIRECTED UP TO 4 TIMES A DAY 100 each 9 3 Active insulin lispro (HumaLOG KWIKPEN) 100 UNIT/ML injection penIndications: Type 2 diabetes mellitus with other specified complication, with long-term current use of insulin INJECT 30 UNITS TWICE A DAY WITH [...] proteinuria 07/05/2021 CLL (chronic lymphocytic leukemia) 03/06/2021 Acid reflux 02/21/2015 Diabetes mellitus type 2, uncomplicated 07/09/19 13 Gout 07/09/2012 Disorder of thyroid 07/09/2012 Essential (primary) hypertension 07/09/2012 Resolved Problems Problem Noted Date Diagnosed Date Resolved Date Osteoarthritis 02/21/2015 03/20/2025 Family History Medical History Relation Name Comments [...] Health Maintenance Due Date Last Done Comments [facility]-Bone Density Scan 1950 [facility]-Depression Screening 1948 [facility]-Hepatitis C Screening 1950 [facility]-Medicare Annual Wellness (AWV) 1950 [facility]-/Child/Adol SDOH Screenings 1950 [facility]-YBVFL-50 Vaccine (#1) 1953 Diabetes: Dental Exam 1958 [...] to Health Maintenance Insurance MEDICARE Care Teams Remarketing Rep Relationship Specialty Start Date End Date Aubree Silver APRN [address] [place] [id number] PCP - General 03/01/21
--- NOTE | 2025-03-28 21:30 | HMH.EDCP ---
Discharge Plan Disposition Patient Disposition: Admitted Condition: Fair Clinical Impressions Clinical Impression: CHF (congestive heart failure), Fluid overload Discharge ED Provider: Rodri Eric HPI <Lila Parekh (ED), LUMBER RACKER - Last Filed: 03/28/25 22:07> General Chief Complaint: Urogenital-Female Stated Complaint: LEG SWELLING Time Seen by Provider: 03/28/25 21:23 History of Present Illness HPI narrative: 74-year-old female presents to the ED today via EMS for complaint of shortness of air, wheezing, bilateral lower extremity edema, blood in her urine and some possible kidney stones. She does have a history of kidney stones but has not had one in a long time. She says she has been in [facility] for couple months and then back home for 6 weeks. She had to do dialysis for a short amount of time. Then they took her port out because she got her renal function back improved enough to get off the dialysis. She has been having her right foot wrapped once a week by home health recently. She said they have been wrapping it for months. Her blood pressure is elevated today. Patient is a brittle diabetic. She has hypertension, renal failure, frequent UTIs. Patient is not on oxygen. She appears well overall. Related Data Home Medications ?Medication ?Instructions ?Recorded ?Confirmed insulin lispro 100 unit/mL 0 - 14 unit SQ AC 12/10/24 01/26/25 subcutaneous pen (Humalog KwikPen (U-100) Insulin) cefepime 1 gram solution for 1 g IM ONCE 12/29/24 01/26/25 injection hydrocodone 5 mg-acetaminophen 325 1 tab PO Q8H PRN 12/29/24 01/26/25 mg tablet miconazole nitrate 2 % topical 1 applic topical BID 12/29/24 01/26/25 powder (Desenex) mirtazapine 7.5 mg tablet 7.5 mg PO HS 12/29/24 01/26/25 nifedipine 60 mg tablet,extended 60 mg PO DAILY 12/29/24 01/26/25 release rivaroxaban 2.5 mg tablet (Xarelto) 2.5 mg PO BID 12/29/24 01/26/25 loperamide 2 mg capsule 2 mg PO Q6H PRN 01/26/25 01/26/25 mirtazapine 15 mg tablet (Remeron) 15 mg PO DAILY 01/26/25 01/26/25 promethazine 12.5 mg tablet 12.5 mg PO Q6H PRN 01/26/25 01/26/25 zinc sulfate 220 mg capsule mg PO 01/26/25 01/26/25 Previous Rx's ?Medication ?Instructions ?Recorded collagenase clostridium histo. 250 1 applic topical DAILY PRN wound 12/29/24 unit/gram topical ointment (Santyl) care #30 grams hydralazine 50 mg tablet 50 mg PO TID 30 days #90 tabs 12/29/24 clopidogrel 75 mg tablet 75 mg PO DAILY #90 tabs 02/11/25 insulin glargine 100 unit/mL (3 10 unit (0.1 mL) SQ ONCE Diabetes 02/11/25 mL) subcutaneous pen #15 mL isosorbide mononitrate 60 mg 60 mg PO DAILY #90 tabs 02/11/25 tablet,extended release 24 hr pen needle, diabetic 31 gauge x #100 ea 02/11/2511/12 (Ultra-Fine Pen Needle) valsartan 160 mg tablet 160 mg PO DAILY #90 tabs 02/11/25 gabapentin 300 mg capsule 300 mg PO HS #90 caps 03/17/25 levothyroxine 88 mcg tablet 88 mcg PO DAILY #90 tabs 03/17/25 Allergies Allergy/AdvReac Type Severity Reaction Status Date / Time moxifloxacin Allergy Severe S-ANAPHYLAX Verified 01/26/25 10:32 IS Sulfa (Sulfonamide Allergy Mild NA-NAUSEA/V Verified 01/26/25 10:32 Antibiotics) OMITING atorvastatin AdvReac Severe Other Verified 01/26/25 10:32 [facility] <Lila Parekh (ED), LUMBER RACKER - Last Filed: 03/28/25 22:07> [facility] Disclaimer: The information contained in this section may have been updated after the patient was seen, as this information can be updated by other users. Medical History (Updated 03/29/25 @ 00:47 by Renata Galaviz RN) Atypical angina Fatigue Abnormal findings on diagnostic imaging of heart and coronary circulation Other forms of dyspnea Edema Dialysis patient SOB (shortness of breath) Essential hypertension CLL (chronic lymphocytic leukemia) CKD (chronic kidney disease) Type 2 diabetes mellitus with diabetic polyneuropathy Hypertension (HFpEF) heart failure with preserved ejection fraction Peripheral arterial occlusive disease Hyperlipidemia CKD (chronic kidney disease) stage 4, GFR 15-29 ml/min Elevated BUN Callus of foot Hypervolemia Leukocytosis UTI (urinary tract infection) Urinary tract infectious disease Sepsis without septic shock Noncompliance Acute kidney injury superimposed on chronic kidney disease Diabetic foot ulcer Sinusitis Hyperkalemia Urinary tract infection Hyperkalemia High anion gap metabolic acidosis Renal failure Falls frequently Viral URI with cough Skin infection, bacterial Avulsed toenail Ulcer of right great toe due to diabetes mellitus Frequent falls Statin intolerance Hyperlipidemia Bradycardia Syncope and collapse Syncope Falls Neuropathy Osteopenia Onychodystrophy Pain of toe of right foot Fracture of second toe, right, closed Edema of toe Acquired hammer toe Closed rib fracture Fall Hyperglycemia due to type 2 diabetes mellitus Bacteremia due to Klebsiella pneumoniae UTI due to Klebsiella species Gram-negative bacteremia DKA (diabetic ketoacidoses) Hyperglycemia due to type 2 diabetes mellitus CLL (chronic lymphocytic leukemia) History of hypertension Diabetes mellitus Surgical History H/O lithotripsy History of cholecystectomy Family History Other Cancer Congestive heart failure (CHF) Heart disease Lymphoma Social History (Updated 03/29/25 @ 01:41 by Briana Krishnan RN) Smoking Status: Never smoker alcohol intake: never substance use type: denies use current occupational status: retired Travel in the last 8 weeks?: None household members: none housing: house caffeine: Yes Have you lived/traveled outside [place] in past 30 days?: No Contact w/someone who lives/traveled outside US past 30 days?: No Exposure to someone with infectious disease in past 14 days?: No Do you have a fever (greater than 100.4 F or 38 C)?: No Have you tested positive for COVID-19?: No Exposed to someone with COVID-19 in past 14 days?: No Do you have a sore throat?: No Do you have a cough?: No Do you have any weakness?: No Are you experiencing any nausea/vomitting?: No Do you have any diarrhea?: No Are you experiencing any unusual bleeding?: No Do you have any muscle aches/pain?: No Do you have any abdominal pain?: No Are you experiencing loss of taste or smell?: No Other Medical History Have you received the Flu Vaccine for this season: No Have you received the Pneumonia Vaccine: Yes <Lila Parekh (ED), [employer]UM[employer] RACKER - Last Filed: 03/28/25 22:07> ROS Obtained: Yes Systems reviewed as appropriate & no additional complaints except as documented Constitutional Constitutional: Reports as per HPI Physical Exam <Lilasamuel Parekh (ED), [employer]ACKER - Last Filed: 03/28/25 22:07> General General appearance: alert Head Head exam: normocephalic Eye Eye exam: Present PERRL and EOMI ENT ENT exam: Present normal oropharynx and mucous membranes moist Neck Neck exam: Present full ROM and trachea midline Respiratory Respiratory exam: Present wheezes (Mild) Cardiovascular Cardiovascular exam: Present normal rhythm, normal heart sounds, +S1 and +S2 Abdominal Exam Abdominal exam: Present soft and normal bowel sounds Extremities Exam Extremities exam: Present edema Neurological Exam Neurological exam: Present alert and oriented X3 Skin Skin exam: Present warm and dry HEART Score <Lilasamuel Parekh (ED), LUM[employer] RACKER - Last Filed: 03/28/25 22:07> HEART Score HEART Score assessment performed?: Yes History (anamnesis): Slightly suspicious ECG: Normal Age: >65 years Risk factors: 3 or more risk factors Troponin: </= normal limit HEART Score: 4 <Rodri Eric MD - Last Filed: 03/29/25 02:07> HEART Score HEART Score: 4 Critical Care <Lilasamuel Parekh (ED), [employer]UM[employer] RACKER - Last Filed: 03/28/25 22:07> Critical Care Time Critical Care Time: No Medical Decision Making <Lila [facility] (ED), LUMBER RACKER - Last Filed: 03/28/25 22:07> Xu Inquiry Pt receiving controlled substance: No Xu was queried for this patient: No Vital Signs Vital Signs: 03/28/25 21:25 03/28/25 21:45 03/28/25 21:59 Temperature 98.4 F Temperature Source Oral Pulse Rate 64 66 Pulse Rate [Right] 71 Respiratory Rate 18 Blood Pressure 198/83 H 200/83 H Blood Pressure [Right Arm] 210/93 H Blood Pressure Mean [Right Arm] 132 Blood Pressure Source Blood Pressure Source [Right Arm] Automatic Cuff Blood Pressure Position Blood Pressure Position [Right Arm] Sitting 02 Sat by Pulse Oximetry 95 95 96 Oxygen Delivery Method Room Air 03/28/25 22:06 03/28/25 22:11 03/28/25 22:16 Temperature Temperature Source Pulse Rate 64 63 66 Pulse Rate [Right] Respiratory Rate Blood Pressure 182/77 H 179/74 H 178/67 H Blood Pressure [Right Arm] Blood Pressure Mean [Right Arm] Blood Pressure Source Blood Pressure Source [Right Arm] Blood Pressure Position Blood Pressure Position [Right Arm] 02 Sat by Pulse Oximetry 100 100 100 Oxygen Delivery Method 03/28/25 22:21 03/28/25 22:26 03/28/25 22:31 Temperature Temperature Source Pulse Rate 68 71 71 Pulse Rate [Right] Respiratory Rate Blood Pressure 175/68 H 164/104 H 175/69 H Blood Pressure [Right Arm] Blood Pressure Mean [Right Arm] Blood Pressure Source Blood Pressure Source [Right Arm] Blood Pressure Position Blood Pressure Position [Right Arm] 02 Sat by Pulse Oximetry 100 99 99 Oxygen Delivery Method 03/28/25 22:36 03/28/25 22:51 03/28/25 22:55 Temperature Temperature Source Pulse Rate 74 83 79 Pulse Rate [Right] Respiratory Rate Blood Pressure 174/72 H 173/75 H 189/75 H Blood Pressure [Right Arm] Blood Pressure Mean [Right Arm] Blood Pressure Source Blood Pressure Source [Right Arm] Blood Pressure Position Blood Pressure Position [Right Arm] 02 Sat by Pulse Oximetry 99 96 98 Oxygen Delivery Method 03/28/25 23:15 03/28/25 23:30 03/29/25 00:05 Temperature Temperature Source Pulse Rate 80 81 76 Pulse Rate [Right] Respiratory Rate Blood Pressure 181/75 H 194/91 H 171/74 H Blood Pressure [Right Arm] Blood Pressure Mean [Right Arm] Blood Pressure Source Blood Pressure Source [Right Arm] Blood Pressure Position Blood Pressure Position [Right Arm] 02 Sat by Pulse Oximetry 95 97 94 L Oxygen Delivery Method 03/29/25 00:11 03/29/25 00:45 03/29/25 01:00 Temperature 98.2 F Temperature Source Oral Pulse Rate 74 Pulse Rate [Right] Respiratory Rate 16 Blood Pressure 174/79 H Blood Pressure [Right Arm] Blood Pressure Mean [Right Arm] Blood Pressure Source Automatic Cuff Blood Pressure Source [Right Arm] Blood Pressure Position Supine Blood Pressure Position [Right Arm] 02 Sat by Pulse Oximetry Oxygen Delivery Method Room Air Room Air Room Air Lab Data Labs: Lab Results 03/28/25 21:15: WBC 6.3, RBC 4.89, Hgb 12.2, Hct 40.4, MCV 82.6, MCH 24.9 L, MCHC 30.2 L, RDW 21.7 H, Plt Count 219, MPV 10.4, Neut % (Auto) 89.8 H, Lymph % (Auto) 5.7 L, Benson % (Auto) 2.4, Eos % (Auto) 0.2, Baso % (Auto) 1.1, Neut # (Auto) 5.7, Lymph # (Auto) 0.4 L, Benson # (Auto) 0.2, Eos # (Auto) 0.0, Baso # (Auto) 0.1, Total Counted 100, Neutrophils % (Manual) 63, Band Neutrophils % 30 H, Lymphocytes % (Manual) 2 L, Monocytes % (Manual) 5, D-Dimer 0.86 H, VBG pH 7.33, VBG pCO2 86.7 H, VBG pO2 92.1 H, VBG HCO3 44.4 H, VBG Total CO2 47.0 H, VBG O2 Saturation 97.1 H, VBG Base Excess 18.4 H, VBG Lactic Acid 1.1, Sodium 138, Potassium 5.1, Chloride 92 L, Carbon Dioxide 41 H*, Anion Gap 10.1, BUN 20 H, Creatinine 0.30 L, Estimated Creat Clear 69, Estimated GFR 216, Est GFR ( Amer) 262, Glucose 104 H, Calcium 9.5, Magnesium 1.9, Total Bilirubin 0.3, AST 54 H, ALT 51, Alkaline Phosphatase 82, Troponin I 0.01, NT-Pro-B Natriuret Pep 625 H, Total Protein 6.0 L, Albumin 2.9 L, Globulin 3.1, Albumin/Globulin Ratio 0.9 L, Lipase 37, Acetone Level None detected 03/28/25 22:45: Urine Color Yellow, Urine Appearance Clear, Urine pH 6.0, Ur Specific [place] 1.020, Urine Protein 3+ A, Urine Glucose (UA) Trace, Urine Ketones Negative, Urine Blood 3+ A, Urine Nitrate Positive A, Urine Bilirubin Negative, Urine Urobilinogen 0.2, Ur Leukocyte Esterase 1+ A, Urine RBC 10-20, Urine WBC 10-20, Ur Squamous Epith Cells 3-5, Urine Bacteria 3+ 03/28/25 21:15 03/28/25 21:15 Response Orders (Tests/Meds): ED MEDICATIONS Generic Name Dose Route Start Last Admin Trade Name Gay PRN Reason Stop Dose Admin Acetaminophen 650 mg 03/29/25 00:22 Acetaminophen 325mg Tab PO 04/28/25 00:21 Q4HP PRN Fever or Mild Pain (1-3) Enoxaparin Sodium 40 mg 03/29/25 09:00 Enoxaparin 40mg/0.4ml Syringe SUBCUT 04/28/25 08:59 DAILY WILFREDO Furosemide 40 mg 03/29/25 00:24 Furosemide 40mg/4ml Vial IV 03/29/25 00:25 ONCE ONE Piperacillin Sod/Tazobactam 50 mls @ 100 mls/hr 03/29/25 00:30 Sod 3.375 gm/ Sodium Chloride IV 04/08/25 00:29 Q8H [facility] Insulin Human Lispro 0 unit 03/29/25 06:00 Humalog 100 Units/Ml 10ml Vial (Ssi) SUBCUT 04/28/25 05:59 ACHS WILFREDO Protocol Ondansetron HCl 4 mg 03/29/25 00:22 Ondansetron 4mg/2ml Vial IV 04/28/25 00:21 Q6HP PRN Nausea Spironolactone 25 mg 03/29/25 00:25 Spironolactone 25mg Tablet PO 04/28/25 00:24 DAILY WILFREDO Discontinued Medications Generic Name Dose Route Start Last Admin Trade Name Gay PRN Reason Stop Dose Admin Albuterol/Ipratropium 9 ml 03/28/25 21:24 03/28/25 22:01 Ipratropium/Albuterol 3 Ml Neb IH 03/28/25 21:25 9 ml ONCE ONE Administration Furosemide 40 mg 03/28/25 21:27 03/28/25 21:48 Furosemide 40mg/4ml Vial IV 03/28/25 21:28 40 mg ONCE ONE Administration Magnesium Sulfate 2 gm in 50 mls @ 50 mls/hr 03/28/25 21:24 03/28/25 22:50 Magnesium Sulfate 2gm/50ml Premix IV 03/28/25 22:23 Infused ONCE ONE Infusion ORDERS Category Date Time Status CT abdomen pelvis wo con Stat Cat Scan 03/28/25 21:23 Completed Chest XR -- portable [XR chest portable] Stat Exams 03/28/25 21:24 Completed Acetone, Serum (Rapid) Stat Lab 03/28/25 21:15 Completed BNP [NT Pro Brain Natriuretic Pep.] Stat Lab 03/28/25 21:15 Completed CBC [Complete Blood Count Auto Diff] Stat Lab 03/28/25 21:15 Completed Comprehensive Metabolic Panel Stat Lab 03/28/25 21:15 Completed D-Dimer Stat Lab 03/28/25 21:15 Completed Lipase Stat Lab 03/28/25 21:15 Completed Magnesium Stat Lab 03/28/25 21:15 Completed Trop I [Troponin I] Stat Lab 03/28/25 21:15 Completed Troponin I Q3H Lab 03/29/25 00:50 Completed Urinalysis and Microscopic Stat Lab 03/28/25 22:45 Completed Urine Culture Stat Micro 03/28/25 22:45 Received Venous Blood Gas Stat RT 03/28/25 21:15 Completed MDM Narrative Medical Decision Narrative: patient is a 74-year-old presenting to the emergency department for evaluation of bilateral lower extremity edema, hypertension, possible kidney stones, hematuria. Patient is hemodynamically stable and nontoxic-appearing upon arrival, afebrile]. Differential diagnosis includes kidney failure, kidney stones, CHF, among others. Workup will be conducted with hematologic labs, specific imaging, provocative tests. Initial inventions include Lasix, labs, DuoNebs, mag. Patient is stable at this time. Will discuss with Dr. Eric. <Rodri Eric MD - Last Filed: 03/29/25 02:07> Vital Signs Vital Signs: 03/28/25 21:25 03/28/25 21:45 03/28/25 21:59 Temperature 98.4 F Temperature Source Oral Pulse Rate 64 66 Pulse Rate [Right] 71 Respiratory Rate 18 Blood Pressure 198/83 H 200/83 H Blood Pressure [Right Arm] 210/93 H Blood Pressure Mean [Right Arm] 132 Blood Pressure Source Blood Pressure Source [Right Arm] Automatic Cuff Blood Pressure Position Blood Pressure Position [Right Arm] Sitting 02 Sat by Pulse Oximetry 95 95 96 Oxygen Delivery Method Room Air 03/28/25 22:06 03/28/25 22:11 03/28/25 22:16 Temperature Temperature Source Pulse Rate 64 63 66 Pulse Rate [Right] Respiratory Rate Blood Pressure 182/77 H 179/74 H 178/67 H Blood Pressure [Right Arm] Blood Pressure Mean [Right Arm] Blood Pressure Source Blood Pressure Source [Right Arm] Blood Pressure Position Blood Pressure Position [Right Arm] 02 Sat by Pulse Oximetry 100 100 100 Oxygen Delivery Method 03/28/25 22:21 03/28/25 22:26 03/28/25 22:31 Temperature Temperature Source Pulse Rate 68 71 71 Pulse Rate [Right] Respiratory Rate Blood Pressure 175/68 H 164/104 H 175/69 H Blood Pressure [Right Arm] Blood Pressure Mean [Right Arm] Blood Pressure Source Blood Pressure Source [Right Arm] Blood Pressure Position Blood Pressure Position [Right Arm] 02 Sat by Pulse Oximetry 100 99 99 Oxygen Delivery Method 03/28/25 22:36 03/28/25 22:51 03/28/25 22:55 Temperature Temperature Source Pulse Rate 74 83 79 Pulse Rate [Right] Respiratory Rate Blood Pressure 174/72 H 173/75 H 189/75 H Blood Pressure [Right Arm] Blood Pressure Mean [Right Arm] Blood Pressure Source Blood Pressure Source [Right Arm] Blood Pressure Position Blood Pressure Position [Right Arm] 02 Sat by Pulse Oximetry 99 96 98 Oxygen Delivery Method 03/28/25 23:15 03/28/25 23:30 03/29/25 00:05 Temperature Temperature Source Pulse Rate 80 81 76 Pulse Rate [Right] Respiratory Rate Blood Pressure 181/75 H 194/91 H 171/74 H Blood Pressure [Right Arm] Blood Pressure Mean [Right Arm] Blood Pressure Source Blood Pressure Source [Right Arm] Blood Pressure Position Blood Pressure Position [Right Arm] 02 Sat by Pulse Oximetry 95 97 94 L Oxygen Delivery Method 03/29/25 00:11 03/29/25 00:45 03/29/25 01:00 Temperature 98.2 F Temperature Source Oral Pulse Rate 74 Pulse Rate [Right] Respiratory Rate 16 Blood Pressure 174/79 H Blood Pressure [Right Arm] Blood Pressure Mean [Right Arm] Blood Pressure Source Automatic Cuff Blood Pressure Source [Right Arm] Blood Pressure Position Supine Blood Pressure Position [Right Arm] 02 Sat by Pulse Oximetry Oxygen Delivery Method Room Air Room Air Room Air Lab Data Labs: Lab Results 03/28/25 21:15: WBC 6.3, RBC 4.89, Hgb 12.2, Hct 40.4, MCV 82.6, MCH 24.9 L, MCHC 30.2 L, RDW 21.7 H, Plt Count 219, MPV 10.4, Neut % (Auto) 89.8 H, Lymph % (Auto) 5.7 L, Benson % (Auto) 2.4, Eos % (Auto) 0.2, Baso % (Auto) 1.1, Neut # (Auto) 5.7, Lymph # (Auto) 0.4 L, Benson # (Auto) 0.2, Eos # (Auto) 0.0, Baso # (Auto) 0.1, Total Counted 100, Neutrophils % (Manual) 63, Band Neutrophils % 30 H, Lymphocytes % (Manual) 2 L, Monocytes % (Manual) 5, D-Dimer 0.86 H, VBG pH 7.33, VBG pCO2 86.7 H, VBG pO2 92.1 H, VBG HCO3 44.4 H, VBG Total CO2 47.0 H, VBG O2 Saturation 97.1 H, VBG Base Excess 18.4 H, VBG Lactic Acid 1.1, Sodium 138, Potassium 5.1, Chloride 92 L, Carbon Dioxide 41 H*, Anion Gap 10.1, BUN 20 H, Creatinine 0.30 L, Estimated Creat Clear 69, Estimated GFR 216, Est GFR ( Amer) 262, Glucose 104 H, Calcium 9.5, Magnesium 1.9, Total Bilirubin 0.3, AST 54 H, ALT 51, Alkaline Phosphatase 82, Troponin I 0.01, NT-Pro-B Natriuret Pep 625 H, Total Protein 6.0 L, Albumin 2.9 L, Globulin 3.1, Albumin/Globulin Ratio 0.9 L, Lipase 37, Acetone Level None detected 03/28/25 22:45: Urine Color Yellow, Urine Appearance Clear, Urine pH 6.0, Ur Specific [place] 1.020, Urine Protein 3+ A, Urine Glucose (UA) Trace, Urine Ketones Negative, Urine Blood 3+ A, Urine Nitrate Positive A, Urine Bilirubin Negative, Urine Urobilinogen 0.2, Ur Leukocyte Esterase 1+ A, Urine RBC 10-20, Urine WBC 10-20, Ur Squamous Epith Cells 3-5, Urine Bacteria 3+ Response Orders (Tests/Meds): ED MEDICATIONS Generic Name Dose Route Start Last Admin Trade Name Freq PRN Reason Stop Dose Admin Acetaminophen 650 mg 03/29/25 00:22 Acetaminophen 325mg Tab PO 04/28/25 00:21 Q4HP PRN Fever or Mild Pain (1-3) Enoxaparin Sodium 40 mg 03/29/25 09:00 Enoxaparin 40mg/0.4ml Syringe SUBCUT 04/28/25 08:59 DAILY WILFREDO Furosemide 40 mg 03/29/25 00:24 Furosemide 40mg/4ml Vial IV 03/29/25 00:25 ONCE ONE Piperacillin Sod/Tazobactam 50 mls @ 100 mls/hr 03/29/25 00:30 Sod 3.375 gm/ Sodium Chloride IV 04/08/25 00:29 Q8H WILFREDO Insulin Human Lispro 0 unit 03/29/25 06:00 Humalog 100 Units/Ml 10ml Vial (Ssi) SUBCUT 04/28/25 05:59 ACHS WILFREDO Protocol Ondansetron HCl 4 mg 03/29/25 00:22 Ondansetron 4mg/2ml Vial IV 04/28/25 00:21 Q6HP PRN Nausea Spironolactone 25 mg 03/29/25 00:25 Spironolactone 25mg Tablet PO 04/28/25 00:24 DAILY WILFREDO Discontinued Medications Generic Name Dose Route Start Last Admin Trade Name Freq PRN Reason Stop Dose Admin Albuterol/Ipratropium 9 ml 03/28/25 21:24 03/28/25 22:01 Ipratropium/Albuterol 3 Ml Neb IH 03/28/25 21:25 9 ml ONCE ONE Administration Furosemide 40 mg 03/28/25 21:27 03/28/25 21:48 Furosemide 40mg/4ml Vial IV 03/28/25 21:28 40 mg ONCE ONE Administration Magnesium Sulfate 2 gm in 50 mls @ 50 mls/hr 03/28/25 21:24 03/28/25 22:50 Magnesium Sulfate 2gm/50ml Premix IV 03/28/25 22:23 Infused ONCE ONE Infusion ORDERS Category Date Time Status CT abdomen pelvis wo con Stat Cat Scan 03/28/25 21:23 Completed Chest XR -- portable [XR chest portable] Stat Exams 03/28/25 21:24 Completed Acetone, Serum (Rapid) Stat Lab 03/28/25 21:15 Completed BNP [NT Pro Brain Natriuretic Pep.] Stat Lab 03/28/25 21:15 Completed CBC [Complete Blood Count Auto Diff] Stat Lab 03/28/25 21:15 Completed Comprehensive Metabolic Panel Stat Lab 03/28/25 21:15 Completed D-Dimer Stat Lab 03/28/25 21:15 Completed Lipase Stat Lab 03/28/25 21:15 Completed Magnesium Stat Lab 03/28/25 21:15 Completed Trop I [Troponin I] Stat Lab 03/28/25 21:15 Completed Troponin I Q3H Lab 03/29/25 00:50 Completed Urinalysis and Microscopic Stat Lab 03/28/25 22:45 Completed Urine Culture Stat Micro 03/28/25 22:45 Received Venous Blood Gas Stat RT 03/28/25 21:15 Completed
[2025-03-28 21:36] LABS: Lactate Venous 1.1 mmol/L (0.4-2.0); VBG HCO3 44.4 mmol/L (23-30); VBG PH 7.33 mmol/L (7.31-7.41); VBG PO2 92.1 mmol/L (28-40)
[2025-03-28 21:37] LABS: Hematocrit 40.4 % (37.0-47.0); Hemoglobin 12.2 g/dL (12.2-16.2); Immature Granulocytes % 0.8 %; Mean Corpuscular HGB Conc 30.2 g/dL (31.8-35.4); Mean Corpuscular Hemoglobin 24.9 pg (27.0-31.2); Mean Corpuscular Volume 82.6 fl (81-99); Nucleated Red Blood Cells % 0 %; Platelet Count 219 K/mm3 (142-424); Red Blood Count 4.89 M/mm3 (4.20-5.40); Red Cell Distribution Width-SD 63.4 fL; White Blood Count 6.3 K/mm3 (4.8-10.8)
[2025-03-28 21:38] LABS: VBG PCO2 86.7 mmol/L (35-51)
--- NOTE | 2025-03-28 21:38 | PC.NURSE ---
Notified sabiha Sharp of patients VBG results
--- NOTE | 2025-03-28 21:46 | ECG_ITS ---
APPROVED REPORT Exam: Resting ECG HR:65 bpm ECG Measurements Heart Rate 65 AXES MN 147 P 46 QRSd 101 QRS -4 QT 417 T -8 QTc 429 Conclusion SINUS RHYTHM NONSPECIFIC ST & T-WAVE ABNORMALITY BORDERLINE ECG UNCONFIRMED REPORT Electronically signed by : ROMMEL MAURO, 03/28/2025 22:58:17
[2025-03-28] MEDS: MAGNESIUM SULFATE IN WATER 2 GM/50 ML PIGGYBACK IV (21:48)
[2025-03-28] MEDS: FUROSEMIDE 40MG/4ML VIAL 40 MG IV (21:48)
[2025-03-28 21:57] LABS: Acetone, Serum (Rapid) None Detected (None Detect)
[2025-03-28 21:58] LABS: Albumin Level 2.9 g/dl (3.5-5.0); Chloride 92 mmol/L (98-107); Potassium 5.1 mmoL/L (3.5-5.1); Sodium 138 mmol/L (136-145)
[2025-03-28 22:00] LABS: D-Dimer 0.86 ug/mL (0.0-0.5)
[2025-03-28 22:01] LABS: Alanine Aminotransferase 51 U/L (12-78); Albumin/Globulin Ratio 0.9 (1.1-1.8); Alkaline Phosphatase 82 U/L (38-126); Aspartate Amino Transferase 54 U/L (14-36); Bilirubin,Total 0.3 mg/dl (0.2-1.3); Calcium 9.5 mg/dl (8.4-10.2); Globulin 3.1 g/dL (1.3-3.2); Glucose 104 mg/dl (74-100); Lipase 37 U/L (23-300); Magnesium 1.9 mg/dl (1.6-2.3); Total Protein,Serum 6.0 g/dl (6.3-8.2)
[2025-03-28] MEDS: IPRATROPIUM/ALBUTEROL 3 ML NEB 9 ML IH (22:01)
[2025-03-28 22:06] LABS: Total Cells Counted 100
[2025-03-28 22:09] LABS: NT Pro Brain Natriuretic Pep. 625 pg/mL (0-450)
[2025-03-28 22:12] LABS: Troponin I 0.01 ng/ml (0.00-0.034)
[2025-03-28 22:17] LABS: Blood Urea Nitrogen 20 mg/dl (7-17); Creatinine Clearance Estimated 69 mL/min (50-200); Creatinine,Serum 0.30 mg/dl (0.52-1.04); Estimated Glomerular Filt Rate 216 ml/min (>60); GFR (African American) 262 ML/MIN (>60)
[2025-03-28 22:34] LABS: Anion Gap 10.1 mEq/L (5-15); Carbon Dioxide 41 mmol/L (22.0-30.0)
[2025-03-28 22:55] LABS: Microscopic, Urine URINE MICROSCOPIC (MICROSCOPIC)
[2025-03-28 23:00] LABS: Bilirubin,Urine Negative (Negative); Color,Urine YELLOW (Yellow); Glucose,Urine (UA) TRACE (Negative); Ketones,Urine Negative (Negative); Leukocyte Esterase,Urine 1+ (Negative); PH,Urine 6.0 (5.0-8.5); Protein,Urine 3+ (Negative); Specific Gravity, Urine 1.020 (1.005-1.030); Urobilinogen,Urine 0.2 EU/dl (0.2)
[2025-03-29] VITALS (9 sets, daily range): BP systolic 134–183; BP diastolic 64–79; PULSE 57–79; RESP 16–19; TEMP 36.7–37.1; O2SAT 94–100; BMI 28.8
--- NOTE | 2025-03-29 00:22 | EXP.HP ---
History of Present Illness *Admission Date: 03/29/25 *Reason for visit:: Fluid overload, shortness of breath *History of present illness: Michelle Davis is a 74-year-old female with a medical history significant for HFpEF on room air, former renal failure requiring temporary dialysis, type 2 diabetes, PAD, diabetic foot ulcers, CLL, hypothyroidism, GERD who presents from home with shortness of breath and progressive bilateral pitting edema. She states lower extremity edema began about 1 to 2 weeks ago, and shortness of breath began a few days ago. Patient had previously been on temporary dialysis at [facility] due to acute renal failure, has and dialysis dependent for several months. Endorses intermittent clear productive phlegm but denies chest pain, fever/chills, abdominal pain. Does not take any diuretics at this time. Workup in the ED significant for VBG pH 7.33, pCO2 86.7, bicarb 41, BNP 625, UA grossly abnormal, CT abdomen revealing moderate left pleural effusion and small right pleural effusion. CXR confirms this. On room air. Given IV Lasix 40 mg, DuoNebs, IV magnesium in the ED. Though VBG pH is compensated, patient has significant hypercapnia and pH low normal concerning for hypoventilation from pleural effusion. Given these findings, ED provider and I discussed case and I decided to admit patient for suspected HFpEF exacerbation, symptomatic pleural effusion. [facility] Disclaimer: The information contained in this section may have been updated after the patient was seen, as this information can be updated by other users. Medical History (Updated 03/29/25 @ 00:47 by Renata Galaviz RN) Atypical angina Fatigue Abnormal findings on diagnostic imaging of heart and coronary circulation Other forms of dyspnea Edema Dialysis patient SOB (shortness of breath) Essential hypertension CLL (chronic lymphocytic leukemia) CKD (chronic kidney disease) Type 2 diabetes mellitus with diabetic polyneuropathy Hypertension (HFpEF) heart failure with preserved ejection fraction Peripheral arterial occlusive disease Hyperlipidemia CKD (chronic kidney disease) stage 4, GFR 15-29 ml/min Elevated BUN Callus of foot Hypervolemia Leukocytosis UTI (urinary tract infection) Urinary tract infectious disease Sepsis without septic shock Noncompliance Acute kidney injury superimposed on chronic kidney disease Diabetic foot ulcer Sinusitis Hyperkalemia Urinary tract infection Hyperkalemia High anion gap metabolic acidosis Renal failure Falls frequently Viral URI with cough Skin infection, bacterial Avulsed toenail Ulcer of right great toe due to diabetes mellitus Frequent falls Statin intolerance Hyperlipidemia Bradycardia Syncope and collapse Syncope Falls Neuropathy Osteopenia Onychodystrophy Pain of toe of right foot Fracture of second toe, right, closed Edema of toe Acquired hammer toe Closed rib fracture Fall Hyperglycemia due to type 2 diabetes mellitus Bacteremia due to Klebsiella pneumoniae UTI due to Klebsiella species Gram-negative bacteremia DKA (diabetic ketoacidoses) Hyperglycemia due to type 2 diabetes mellitus CLL (chronic lymphocytic leukemia) History of hypertension Diabetes mellitus Surgical History H/O lithotripsy History of cholecystectomy Family History Other Cancer Congestive heart failure (CHF) Heart disease Lymphoma Social History (Updated 03/29/25 @ 01:41 by Briana Krishnan RN) Smoking Status: Never smoker alcohol intake: never substance use type: denies use current occupational status: retired Travel in the last 8 weeks?: None household members: none housing: house caffeine: Yes Have you lived/traveled outside [place] in past 30 days?: No Contact w/someone who lives/traveled outside US past 30 days?: No Exposure to someone with infectious disease in past 14 days?: No Do you have a fever (greater than 100.4 F or 38 C)?: No Have you tested positive for COVID-19?: No Exposed to someone with COVID-19 in past 14 days?: No Do you have a sore throat?: No Do you have a cough?: No Do you have any weakness?: No Are you experiencing any nausea/vomitting?: No Do you have any diarrhea?: No Are you experiencing any unusual bleeding?: No Do you have any muscle aches/pain?: No Do you have any abdominal pain?: No Are you experiencing loss of taste or smell?: No Other Medical History Have you received the Flu Vaccine for this season: No Have you received the Pneumonia Vaccine: Yes Meds Home Medications and Allergies Home Medications ?Medication ?Instructions ?Recorded ?Confirmed ?Type insulin lispro 100 unit/mL 0 - 14 unit SQ AC 12/10/24 01/26/25 History subcutaneous pen (Humalog KwikPen (U-100) Insulin) cefepime 1 gram solution for 1 g IM ONCE 12/29/24 01/26/25 History injection collagenase clostridium histo. 250 1 applic topical DAILY PRN wound 12/29/24 01/26/25 Rx unit/gram topical ointment (Santyl) care #30 grams hydralazine 50 mg tablet 50 mg PO TID 30 days #90 tabs 12/29/24 01/26/25 Rx hydrocodone 5 mg-acetaminophen 325 1 tab PO Q8H PRN 12/29/24 01/26/25 History mg tablet miconazole nitrate 2 % topical 1 applic topical BID 12/29/24 01/26/25 History powder (Desenex) mirtazapine 7.5 mg tablet 7.5 mg PO HS 12/29/24 01/26/25 History nifedipine 60 mg tablet,extended 60 mg PO DAILY 12/29/24 01/26/25 History release rivaroxaban 2.5 mg tablet (Xarelto) 2.5 mg PO BID 12/29/24 01/26/25 History loperamide 2 mg capsule 2 mg PO Q6H PRN 01/26/25 01/26/25 History mirtazapine 15 mg tablet (Remeron) 15 mg PO DAILY 01/26/25 01/26/25 History promethazine 12.5 mg tablet 12.5 mg PO Q6H PRN 01/26/25 01/26/25 History zinc sulfate 220 mg capsule mg PO 01/26/25 01/26/25 History clopidogrel 75 mg tablet 75 mg PO DAILY #90 tabs 02/11/25 03/29/25 Rx insulin glargine 100 unit/mL (3 10 unit (0.1 mL) SQ ONCE Diabetes 02/11/25 Rx mL) subcutaneous pen #15 mL isosorbide mononitrate 60 mg 60 mg PO DAILY #90 tabs 02/11/25 03/29/25 Rx tablet,extended release 24 hr pen needle, diabetic 31 gauge x #100 ea 02/11/25 03/29/25 Rx 5/16 (Ultra-Fine Pen Needle) valsartan 160 mg tablet 160 mg PO DAILY #90 tabs 02/11/25 03/29/25 Rx gabapentin 300 mg capsule 300 mg PO HS #90 caps 03/17/25 03/29/25 Rx levothyroxine 88 mcg tablet 88 mcg PO DAILY #90 tabs 03/17/25 03/29/25 Rx New Prescriptions to Start Prescriptions: Allergies Allergy/AdvReac Type Severity Reaction Status Date / Time moxifloxacin Allergy Severe S-ANAPHYLAX Verified 01/26/25 10:32 IS Sulfa (Sulfonamide Allergy Mild NA-NAUSEA/V Verified 01/26/25 10:32 Antibiotics) OMITING atorvastatin AdvReac Severe Other Verified 01/26/25 10:32 Exam Data for Last 24 hours Vital signs and Labs for Last 24 Hours: Temp Pulse Resp BP Pulse Ox O2 Del Method 98.4 F 76 18 171/74 H 94 L Room Air 03/28/25 21:25 03/29/25 00:05 03/28/25 21:25 03/29/25 00:05 03/29/25 00:05 03/28/25 21: Laboratory Results - last 24 hr 03/28/25 21:15: WBC 6.3, RBC 4.89, Hgb 12.2, Hct 40.4, MCV 82.6, MCH 24.9 L, MCHC 30.2 L, RDW 21.7 H, Plt Count 219, MPV 10.4, Neut % (Auto) 89.8 H, Lymph % (Auto) 5.7 L, [place] % (Auto) 2.4, Eos % (Auto) 0.2, Baso % (Auto) 1.1, Neut # (Auto) 5.7, Lymph # (Auto) 0.4 L, [place] # (Auto) 0.2, Eos # (Auto) 0.0, Baso # (Auto) 0.1, Total Counted 100, Neutrophils % (Manual) 63, Band Neutrophils % 30 H, Lymphocytes % (Manual) 2 L, Monocytes % (Manual) 5, D-Dimer 0.86 H, VBG pH 7.33, VBG pCO2 86.7 H, VBG pO2 92.1 H, VBG HCO3 44.4 H, VBG Total CO2 47.0 H, VBG O2 Saturation 97.1 H, VBG Base Excess 18.4 H, VBG Lactic Acid 1.1, Sodium 138, Potassium 5.1, Chloride 92 L, Carbon Dioxide 41 H*, Anion Gap 10.1, BUN 20 H, Creatinine 0.30 L, Estimated Creat Clear 69, Estimated GFR 216, Est GFR ( Amer) 262, Glucose 104 H, Calcium 9.5, Magnesium 1.9, Total Bilirubin 0.3, AST 54 H, ALT 51, Alkaline Phosphatase 82, Troponin I 0.01, NT-Pro-B Natriuret Pep 625 H, Total Protein 6.0 L, Albumin 2.9 L, Globulin 3.1, Albumin/Globulin Ratio 0.9 L, Lipase 37, Acetone Level None detected 03/28/25 22:45: Urine Color Yellow, Urine Appearance Clear, Urine pH 6.0, Ur Specific [place] 1.020, Urine Protein 3+ A, Urine Glucose (UA) Trace, Urine Ketones Negative, Urine Blood 3+ A, Urine Nitrate Positive A, Urine Bilirubin Negative, Urine Urobilinogen 0.2, Ur Leukocyte Esterase 1+ A I & O for Last 24 hours: Intake & Output 03/26/25 03/27/25 03/28/25 03/29/25 23:59 23:59 23:59 23:59 Intake Total 50 / 50 Balance 50 / 50 Weight 90.718 kg Constitutional Constitutional: no acute distress *Routine HEENT Exam Head: Present normocephalic Eye: Present EOMI and PERRL ENT: Present mucous membranes moist *Routine Neck Exam Neck: Present supple; Absent lymphadenopathy *Routine Respiratory Exam Respiratory: Present CTA bilaterally *Routine Cardiovascular Exam Cardiovascular: Present RRR *Routine Abdominal Exam Abdominal: Present soft and normoactive bowel sounds; Absent tenderness *Routine Rectal Exam Rectal:: deferred *Routine Genitalia Exam Genitalia:: deferred *Routine Extremities Exam Extremities: Present edema; Absent cyanosis or clubbing Comments: Bilateral lower extremity 2+ pitting edema. *Routine Skin Exam Skin: Present warm; Absent rash *Routine Neurological Exam Neurological: Present alert and oriented X3 Assessment and Plan *Assessment and plan (1) CHF (congestive heart failure): Status: Acute Category: Medical Code(s): I50.9 - Heart failure, unspecified Plan Michelle Davis is a 74-year-old female with a medical history significant for HFpEF on room air, former renal failure requiring temporary dialysis, type 2 diabetes, PAD, diabetic foot ulcers, CLL, hypothyroidism, GERD who presents from home with shortness of breath and progressive bilateral pitting edema. She states lower extremity edema began about 1 to 2 weeks ago, and shortness of breath began a few days ago. Patient had previously been on temporary dialysis at [facility] due to acute renal failure, has and dialysis dependent for several months. Endorses intermittent clear productive phlegm but denies chest pain, fever/chills, abdominal pain. Does not take any diuretics at this time. Workup in the ED significant for VBG pH 7.33, pCO2 86.7, bicarb 41, BNP 625, UA grossly abnormal, CT abdomen revealing moderate left pleural effusion and small right pleural effusion. CXR confirms this. On room air. Given IV Lasix 40 mg, DuoNebs, IV magnesium in the ED. Though VBG pH is compensated, patient has significant hypercapnia and pH low normal concerning for hypoventilation from pleural effusion. Given these findings, ED provider and I discussed case and I decided to admit patient for suspected HFpEF exacerbation, symptomatic pleural effusion. #HFpEF exacerbation #Bilateral pleural effusions #Hypercapnia ? Presented with progressive lower extremity edema, shortness of breath. ? Initial VBG pH 7.33, pCO2 86.7, bicarb [address] abdomen concerning for moderate left pleural effusion, small right pleural effusion. ? ECHO July 2024 shows normal biventricular systolic function, without significant diastolic dysfunction. ? Started IV Bumex 1 mg twice daily, spironolactone 25 mg. Patient states Bumex works better than Lasix prior. ? DuoNebs every 6 hours scheduled. ? Follow-up ECHO. ? Cardiology consulted, pending further recommendations. ? Pulmonology consulted, pending recommendations on moderate symptomatic pleural effusion. ? Follow-up morning CMP. #UTI ? UA grossly abnormal, urine culture pending. ? Start IV Zosyn 3.375 grams every 8 hours after blood cultures were obtained. #Type 2 diabetes ? Hemoglobin A1c 9.5% in October 2024. Follow-up repeat A1c. ? LDSSI, ACHS glucose checks. #PAD #CAD ? Abnormal Lexiscan in December 2024, with known significant PAD. ? Cardiology was planning for outpatient staged LHC and peripheral revascularizations. ? Continue aspirin. Patient has had severe muscle aches with statins in the past, consider low-dose statin tomorrow. #Hypothyroidism ? Continue home levothyroxine once reconciled. Follow-up TFTs. #Hypertension ? Continue home medications once appropriate. Consider discontinuing nifedipine due to lower extremity edema. #GERD ? Continue PPI. Full code DVT prophylaxis: Hold morning Lovenox for possible cardiac intervention, avoid SCDs due to severe PAD.
[2025-03-29 00:29] LABS: Bacteria,Urine 3+ /lpf
[2025-03-29 01:23] LABS: Troponin I < 0.01 ng/ml (0.00-0.034)
--- NOTE | 2025-03-29 01:32 | PC.NURSE ---
Addendum entered by Briana Krishnan RN 03/29/25 01:34: Med rec done partially based on med rec Original Note: Patients daughter in law gives her all her medications at home and is unsure of what she takes.
--- NOTE | 2025-03-29 02:13 | PC.WOUNDNOTE ---
left heel, slough, eschar noted, light pink/white edges
--- NOTE | 2025-03-29 02:14 | PC.WOUNDNOTE ---
right heel, red open area, pink/white edges
--- NOTE | 2025-03-29 02:15 | PC.WOUNDNOTE ---
red area on top of right foot at the crease, no open area, light pink
--- NOTE | 2025-03-29 02:23 | CA_ITS ---
APPROVED REPORT EXAM: Comprehensive 2D, Doppler, and color-flow Echocardiogram [employer]: NOEL Cooper, RVS Ht: 5 ft 3 in Wt: 180lbs BSA: 1.85 BP: 171/74 mmHg Indications: HF, volume overload, CLL, Hypothyroidism, HTN, DM, HLD, CKD 2D Dimensions IVSd 1.20 cm LVEF (Visual) 65.80 % PWd 1.32 cm LA Volume 118.10 mL LVDd 4.01 cm LA Volume Index 62.50 mL/m2 (M/F) 16-34 LVDs 2.58 cm Left Atrium 4.13 cm M-Mode Dimensions LA Diam 4.96 cm (1.9-4.0) EPSs 0.30 cm TAPSE 2.02 (<1.7) LV Diastology E Decel Time 197 (160-240 msec) E/A Ratio 0.76 MED A' 11.00 cm/s LAT A' 13.20 cm/s Aortic Valve CHAGO Index 0.90 cm2/m2 AoV Peak Dominick. 179.0 (50-130 cm/s) AO Peak GR. 12.70 mmHg AO Mean GR. 8.00 (<5 mmHg) AO VTI 44.7 (18-25 cm) CHAGO (VTI) 1.70 (2.5-4.5 cm2) Mitral Valve MV A Velocity 144.0 (40-130 cm/s) E/A Ratio 0.76 MV Mean Gr. 3.20 (<2mmHg) Pulmonary Valve PV Peak Velocity 105.0 (50-150 cm/s) Tricuspid Valve TR P. Velocity 240.00 cm/s RAP Estimate 10.00 mmHg RVSP 33.00 mmHg Left Ventricle The left ventricle is normal size. Left ventricular systolic function is normal. The left ventricular ejection fraction is within the normal range. There is increased left ventricular wall thickness. There is normal LV segmental wall motion. The left ventricular diastolic function is indeterminate. LVEF is 55%. Right Ventricle The right ventricle is normal size. The right ventricular systolic function is normal. Atria The left atrium is severely dilated. The right atrium is mildly dilated. There is no color Doppler evidence of interatrial shunt. Aortic Valve The aortic valve is mildly thickened. There is no hemodynamically significant aortic valvular stenosis. Trace aortic regurgitation is present. Mitral Valve The mitral valve is normal in structure. No evidence of mitral valve stenosis. Mild mitral regurgitation is present. Tricuspid Valve The tricuspid valve leaflets are thin and pliable. Mild tricuspid regurgitation. There is insufficient TR jet to estimate RVSP. Pulmonic Valve The pulmonary valve is grossly normal in structure. Trace pulmonic valve regurgitation is present. Great Vessels The aortic root is normal in size. IVC is normal in size and collapses >50% with inspiration. Pericardium There is a small-sized, anterior pericardial effusion present. The largest pocket measures 0.2-0.3 cm in diastole. No evidence of chamber collapse. No echo indications of tamponade. Other Information Study Quality: Fair Conclusion Normal biventricular systolic function. Biatrial dilation. Mild MR, mild TR. There is a small-sized, anterior pericardial effusion present. The largest pocket measures 0.2-0.3 cm in diastole. No evidence of chamber collapse. No echo indications of tamponade. In the setting of small pericardial effusion, further serial limited TTEs are suggested. Clinical correlation is required. Electronically signed by : Nini Malin MD 03/30/2025 16:58:01
[2025-03-29] MEDS: BUMETANIDE 1MG/4ML VIAL 1 MG IV ×2 (02:28→08:08)
[2025-03-29] MEDS: SPIRONOLACTONE 25MG TABLET 25 MG PO (02:28)
--- NOTE | 2025-03-29 04:37 | PC.NURSE ---
Alert and oriented since arriving to floor. No complaints. Purewick in place for accurate I&Os. Ulcers noted to bilateral heels, cleaned and dressed, wound consult in. 3+ pitting edema to bilateral lower extremities. Bed alarm on. Call light in reach.
[2025-03-29] MEDS: humaLOG 100 UNITS/ML 10ML VIAL (SSI) SUBCUT ×3 (05:35→20:42)
[2025-03-29 05:49] LABS: POC Glucose,Bedside 160 gm/dL (70-110)
[2025-03-29 06:21] LABS: Hematocrit 23.3 % (37.0-47.0); Hemoglobin 7.0 g/dL (12.2-16.2); Immature Granulocytes % 0.3 %; Mean Corpuscular HGB Conc 30.0 g/dL (31.8-35.4); Mean Corpuscular Hemoglobin 27.2 pg (27.0-31.2); Mean Corpuscular Volume 90.7 fl (81-99); Nucleated Red Blood Cells % 0 %; Platelet Count 290 K/mm3 (142-424); Red Blood Count 2.57 M/mm3 (4.20-5.40); Red Cell Distribution Width-SD 60.4 fL; White Blood Count 10.7 K/mm3 (4.8-10.8)
[2025-03-29 06:35] LABS: Alanine Aminotransferase 10 U/L (12-78); Albumin Level 2.7 g/dl (3.5-5.0); Albumin/Globulin Ratio 1.0 (1.1-1.8); Alkaline Phosphatase 82 U/L (38-126); Anion Gap 10.0 mEq/L (5-15); Aspartate Amino Transferase 15 U/L (14-36); Bilirubin,Total 0.2 mg/dl (0.2-1.3); Blood Urea Nitrogen 42 mg/dl (7-17); Calcium 8.3 mg/dl (8.4-10.2); Carbon Dioxide 21 mmol/L (22.0-30.0); Chloride 110 mmol/L (98-107); Creatinine Clearance Estimated 36 mL/min (50-200); Creatinine,Serum 1.80 mg/dl (0.52-1.04); Estimated Glomerular Filt Rate 27 ml/min (>60); GFR (African American) 33 ML/MIN (>60); Globulin 2.7 g/dL (1.3-3.2); Glucose 145 mg/dl (74-100); Magnesium 2.2 mg/dl (1.6-2.3); Potassium 4.0 mmoL/L (3.5-5.1); Sodium 137 mmol/L (136-145); Total Protein,Serum 5.4 g/dl (6.3-8.2)
[2025-03-29] MEDS: IPRATROPIUM/ALBUTEROL 3 ML NEB IH (06:37)
[2025-03-29 07:21] LABS: VBG HCO3 20.5 mmol/L (23-30); VBG PCO2 38.6 mmol/L (35-51); VBG PH 7.34 mmol/L (7.31-7.41); VBG PO2 75.2 mmol/L (28-40)
[2025-03-29 07:28] LABS: Lactate Venous 2.4 mmol/L (0.4-2.0)
[2025-03-29] MEDS: ASPIRIN EC 81MG TABLET 81 MG PO (08:08)
[2025-03-29] MEDS: PIPERACILLIN/TAZO 2.25 GM in 0.9 % SODIUM CHLORIDE 50 ML IV ×3 (08:08→20:43)
--- NOTE | 2025-03-29 09:22 | HMH.PTEV ---
Physical Therapy Evaluation Rehab PT IP Evaluation Start: 03/29/25 01:41 Freq: ONCE Status: Active Protocol: Document 03/29/25 09:15 JO ANN (Rec: 03/29/25 09:22 JO ANN [id number]) Subjective/History History History Per H&P: Michelle Davis is a 74-year-old female with a medical history significant for HFpEF on room air, former renal failure requiring temporary dialysis, type 2 diabetes, PAD, diabetic foot ulcers, CLL, hypothyroidism, GERD who presents from home with shortness of breath and progressive bilateral pitting edema. She states lower extremity edema began about 1 to 2 weeks ago, and shortness of breath began a few days ago. Patient had previously been on temporary dialysis at [facility] due to acute renal failure, has and dialysis dependent for several months. Endorses intermittent clear productive phlegm but denies chest pain, fever/chills, abdominal pain. Does not take any diuretics at this time. Workup in the ED significant for VBG pH 7.33, pCO2 86.7, bicarb 41, BNP 625, UA grossly abnormal, CT abdomen revealing moderate left pleural effusion and small right pleural effusion . CXR confirms this. On room air. Given IV Lasix 40 mg, DuoNebs, IV magnesium in the ED. Though VBG pH is compensated, patient has significant hypercapnia and pH low normal concerning for hypoventilation from pleural effusion. Given these findings, ED provider and I discussed case and I decided to admit patient for suspected HFpEF exacerbation, symptomatic pleural effusion. Subjective Subjective Pt reports she lives with her DIL who works during the day. Pt reports she has a hospital bed, RW, and w/c. Pt reports she hasn't ambulated in a couple of weeks. [facility] How much help from another person do you currently need... Turning from your A little back to your side while in a flat bed without using bedrails? Moving from lying on A lot back to sitting on the side of a flat bed without using bedrails? Moving to and from a A little bed to a chair ( including a wheelchair)? Standing up from a A little chair using your arms? (e.g., wheelchair, bedside chair) Walking in hospital A little room? Climbing 3-5 steps A lot with a railing? Mobility Score 16 Mobility Level [facility] Mobility 5 Stand (1 or more minutes) Mobility Calculator Rehab PT IP Eval Objective Appearance Patient Behavior Appropriate,Cooperative Patient Orientation Person,Place Difficulty following none instructions Speech Pattern Clear Ambulation Patient Able to No Ambulate Balance Ability to Arise Able, uses arms to help Sitting Balance Steady, safe Standing Balance Steady, wide stance Dynamic Sitting Good Balance Ability Dynamic Standing Fair Balance Ability Transfers Bed Transfer Ability Moderate x 1 (50% assist) Sit to Stand Bed Minimal x 1 (25% assist) Transfer Ability Rehab PT IP prob,goals,plan Problems Date of Evaluation: 03/29/25 PT IP Problems Bed Mobility,Transfers,Gait,Balance,Self care,Safety Rehab Potential Rehab Potential Good Plan PT Intervention Plan Bed Mobility,Transfers,Gait,Balance,Self care,Safety, Therapeutic Exercise Other Intervention 1-2 times Plan PT Plan Frequency Daily Duration LOS Discharge Goals Bed Transfer Ability Minimal x 1 (25% assist) Sit to Stand Chair Contact Guard/Hand Hold Transfer Ability Ambulation Assistive Rolling Walker Device Ambulation Distance 10 (feet) Discharge Plan PT Discharge Plan Initial physical therapy evaluation performed. Patient presents below baseline at this time in functional mobility, transfers, and strength. Pt not safe to return home at this time d/t current level of functional mobility. PT recommending inpatient rehabilitation facility (IRF) placement upon d/c from [facility]. Pt would benefit from skilled PT while at [facility] to prevent further functional decline and maximize safety with mobility. Eval Complexity Eval Charge Codes 33586 - Moderate Complexity PHYSICIAN CERTIFICATION: I certify the specified therapy services for Michelle Rivas are required, authorized, and reviewed every 30 days.
--- NOTE | 2025-03-29 09:36 | EXP.PULM.CON ---
History of Present Illness History of present illness: Ms. Davis is a 74-year-old female never smoker, no prior respiratory complaints, not using any oxygen supplementation or inhaler therapy at with history of heart failure reduced ejection fraction renal dysfunction type 2 diabetes mellitus hypothyroidism presented to ER with worsening respiratory distress and progressively worsening bilateral lower extremity pulmonary edema and pulmonary was called for further evaluation and management. Denies any subjective fevers or chills but denies any worsening productive phlegm/sputum discoloration PFSH PFSH Disclaimer: The information contained in this section may have been updated after the patient was seen, as this information can be updated by other users. Medical History (Updated 03/29/25 @ 14:54 by Matt Bowman MD) Pleural effusion, bilateral Atypical angina Fatigue Abnormal findings on diagnostic imaging of heart and coronary circulation Other forms of dyspnea Edema Dialysis patient SOB (shortness of breath) Essential hypertension CLL (chronic lymphocytic leukemia) CKD (chronic kidney disease) Type 2 diabetes mellitus with diabetic polyneuropathy Hypertension (HFpEF) heart failure with preserved ejection fraction Peripheral arterial occlusive disease Hyperlipidemia CKD (chronic kidney disease) stage 4, GFR 15-29 ml/min Elevated BUN Callus of foot Hypervolemia Leukocytosis UTI (urinary tract infection) Urinary tract infectious disease Sepsis without septic shock Noncompliance Acute kidney injury superimposed on chronic kidney disease Diabetic foot ulcer Sinusitis Hyperkalemia Urinary tract infection Hyperkalemia High anion gap metabolic acidosis Renal failure Falls frequently Viral URI with cough Skin infection, bacterial Avulsed toenail Ulcer of right great toe due to diabetes mellitus Frequent falls Statin intolerance Hyperlipidemia Bradycardia Syncope and collapse Syncope Falls Neuropathy Osteopenia Onychodystrophy Pain of toe of right foot Fracture of second toe, right, closed Edema of toe Acquired hammer toe Closed rib fracture Fall Hyperglycemia due to type 2 diabetes mellitus Bacteremia due to Klebsiella pneumoniae UTI due to Klebsiella species Gram-negative bacteremia DKA (diabetic ketoacidoses) Hyperglycemia due to type 2 diabetes mellitus CLL (chronic lymphocytic leukemia) History of hypertension Diabetes mellitus Surgical History H/O lithotripsy History of cholecystectomy Family History Other Cancer Congestive heart failure (CHF) Heart disease Lymphoma Social History Smoking Status: Never smoker alcohol intake: never substance use type: denies use current occupational status: retired Travel in the last 8 weeks?: None household members: none housing: house caffeine: Yes Have you lived/traveled outside US in past 30 days?: No Contact w/someone who lives/traveled outside US past 30 days?: No Exposure to someone with infectious disease in past 14 days?: No Do you have a fever (greater than 100.4 F or 38 C)?: No Have you tested positive for COVID-19?: No Exposed to someone with COVID-19 in past 14 days?: No Do you have a sore throat?: No Do you have a cough?: No Do you have any weakness?: No Are you experiencing any nausea/vomitting?: No Do you have any diarrhea?: No Are you experiencing any unusual bleeding?: No Do you have any muscle aches/pain?: No Do you have any abdominal pain?: No Are you experiencing loss of taste or smell?: No Review of Systems Constitutional Constitutional: Reports anorexia, Reports body ache(s) and Reports fatigue Eyes Eyes: Denies eye discharge, Denies dry eyes, Denies irritation and Denies itchy eyes ENT Ears, Nose, Mouth, and Throat: Denies epistaxis, Denies facial pain, Denies lip swelling and Denies throat swelling *Cardiovascular Cardiovascular: Reports dyspnea, Reports dyspnea on exertion, Reports leg edema, Reports orthopnea and Reports pedal edema *Respiratory Respiratory: Denies change in phlegm color, Reports chest congestion, Reports cough, Reports dyspnea, Reports dyspnea on exertion, Denies excessive phlegm production, Denies hemoptysis, Denies pain on inspiration, Denies pain with cough and Denies wheezing *Gastrointestinal Gastrointestinal: Denies abdominal pain, Denies belching and Denies cramping *Musculoskeletal Musculoskeletal: Reports back pain, Reports myalgias and Reports other (No small joint swelling or Pain) Psychiatric Psychiatric: Denies homicidal ideation and Denies suicidal ideation Endocrine Endocrine: Reports fatigue and Denies heat intolerance Hematologic/Lymphatic Hematologic/Lymphatic: Denies easy bleeding and Denies lymphadenopathy Allergic/Immunologic Allergic/Immunologic: Denies itchy eyes, Denies lip swelling, Denies throat swelling and Denies wheezing Pulmonology Exam Inpatient Vital signs and Labs for Last 24 Hours: Temp Pulse Resp BP Pulse Ox O2 Del Method 98.2 F 73 19 179/73 H 99 Room Air 03/29/25 08:00 03/29/25 08:00 03/29/25 08:00 03/29/25 08:00 03/29/25 08:00 03/29/25 08:00 Laboratory Results - last 24 hr 03/28/25 21:15: WBC 6.3, RBC 4.89, Hgb 12.2, Hct 40.4, MCV 82.6, MCH 24.9 L, MCHC 30.2 L, RDW 21.7 H, Plt Count 219, MPV 10.4, Neut % (Auto) 89.8 H, Lymph % (Auto) 5.7 L, [place] % (Auto) 2.4, Eos % (Auto) 0.2, Baso % (Auto) 1.1, Neut # (Auto) 5.7, Lymph # (Auto) 0.4 L, [place] # (Auto) 0.2, Eos # (Auto) 0.0, Baso # (Auto) 0.1, Total Counted 100, Neutrophils % (Manual) 63, Band Neutrophils % 30 H, Lymphocytes % (Manual) 2 L, Monocytes % (Manual) 5, D-Dimer 0.86 H, VBG pH 7.33, VBG pCO2 86.7 H, VBG pO2 92.1 H, VBG HCO3 44.4 H, VBG Total CO2 47.0 H, VBG O2 Saturation 97.1 H, VBG Base Excess 18.4 H, VBG Lactic Acid 1.1, Sodium 138, Potassium 5.1, Chloride 92 L, Carbon Dioxide 41 H*, Anion Gap 10.1, BUN 20 H, Creatinine 0.30 L, Estimated Creat Clear 69, Estimated GFR 216, Est GFR ( Amer) 262, Glucose 104 H, Calcium 9.5, Magnesium 1.9, Total Bilirubin 0.3, AST 54 H, ALT 51, Alkaline Phosphatase 82, Troponin I 0.01, NT-Pro-B Natriuret Pep 625 H, Total Protein 6.0 L, Albumin 2.9 L, Globulin 3.1, Albumin/Globulin Ratio 0.9 L, Lipase 37, Acetone Level None detected 03/28/25 22:45: Urine Color Yellow, Urine Appearance Clear, Urine pH 6.0, Ur Specific [place] 1.020, Urine Protein 3+ A, Urine Glucose (UA) Trace, Urine Ketones Negative, Urine Blood 3+ A, Urine Nitrate Positive A, Urine Bilirubin Negative, Urine Urobilinogen 0.2, Ur Leukocyte Esterase 1+ A, Urine RBC 10-20, Urine WBC 10-20, Ur Squamous Epith Cells 3-5, Urine Bacteria 3+ 03/29/25 00:50: Troponin I < 0.01 03/29/25 05:01: WBC 10.7 D, RBC 2.57 L D, Hgb 7.0 L, Hct 23.3 L, MCV 90.7, MCH 27.2, MCHC 30.0 L, RDW 18.5 H, Plt Count 290 D, MPV 9.8, Neut % (Auto) 59.2, Lymph % (Auto) 31.9, [place] % (Auto) 6.0, Eos % (Auto) 2.2, Baso % (Auto) 0.4, Neut # (Auto) 6.3, Lymph # (Auto) 3.4, [place] # (Auto) 0.6, Eos # (Auto) 0.2, Baso # (Auto) 0.0, Sodium 137, Potassium 4.0 D, Chloride 110 H, Carbon Dioxide 21 L, Anion Gap 10.0, BUN 42 H D, Creatinine 1.80 H D, Estimated Creat Clear 36, Estimated GFR 27 L, Est GFR ( Amer) 33 L D, Glucose 145 H D, Calcium 8.3 L, Magnesium 2.2 D, Total Bilirubin 0.2, AST 15 D, ALT 10 L D, Alkaline Phosphatase 82, Total Protein 5.4 L, Albumin 2.7 L, Globulin 2.7, Albumin/Globulin Ratio 1.0 L 03/29/25 05:30: POC Glucose 160 H 03/29/25 07:10: VBG pH 7.34, VBG pCO2 38.6, VBG pO2 75.2 H, VBG HCO3 20.5 L, VBG Total CO2 21.7 L, VBG O2 Saturation 94.8 H, VBG Base Excess -5.2 L, VBG Lactic Acid 2.4 H I & O for Labs for Last 24 Hours: Intake & Output 03/26/25 03/27/25 03/28/25 03/29/25 23:59 23:59 23:59 23:59 Intake Total 50 / 50 360 / 360 Output Total 500 / 500 Balance 50 / 50 -140 / -140 Weight 200 lb 190 lb 9 oz Microbiology Reports for the Last 24 Hours: Microbiology 03/28/25 22:45 Urine,Clean Catch Urine Culture - Preliminary Constitutional: Present mild distress Head: Present normocephalic and atraumatic ENT: Present normal exam, normal oropharynx and mucous membranes moist Neck: Present normal inspection and full ROM Respiratory: Present crackles, diminished air movement, normal respiratory effort and able to speak in complete sentences; Absent prolonged expiratory phase, respiratory distress or wheezes Cardiac: Present S1/S2, Tachycardia and radial pulses present GI: Present soft and distention; Absent tenderness or guarding Rectal (female): Present deferred (female): Present deferred Skin: Present intact; Absent cyanosis or jaundice Neuro: Present alert, awake and oriented x 3 Extremities: Present normal inspection and edema; Absent clubbing or cyanosis Psychiatric: Present normal affect and cooperative Meds Home Medications and Allergies Home Medications ?Medication ?Instructions ?Recorded ?Confirmed ?Type nifedipine 60 mg tablet,extended 60 mg PO DAILY 12/29/24 03/29/25 History release mirtazapine 15 mg tablet (Remeron) 15 mg PO HS 01/26/25 03/29/25 History clopidogrel 75 mg tablet 75 mg PO DAILY #90 tabs 02/11/25 03/29/25 Rx isosorbide mononitrate 60 mg 60 mg PO DAILY #90 tabs 02/11/25 03/29/25 Rx tablet,extended release 24 hr pen needle, diabetic 31 gauge x #100 ea 02/11/25 03/29/25 Rx 5/16 (Ultra-Fine Pen Needle) valsartan 160 mg tablet 160 mg PO DAILY #90 tabs 02/11/25 03/29/25 Rx gabapentin 300 mg capsule 300 mg PO HS #90 caps 03/17/25 03/29/25 Rx levothyroxine 88 mcg tablet 88 mcg PO DAILY #90 tabs 03/17/25 03/29/25 Rx atorvastatin 40 mg tablet 40 mg PO HS 03/29/25 03/29/25 History bumetanide 1 mg tablet 1 mg PO DAILY 03/29/25 03/29/25 History insulin glargine 100 unit/mL (3 10 unit SQ DAILY Diabetes 03/29/25 03/29/25 History mL) subcutaneous pen New Prescriptions to Start Prescriptions: Allergies Allergy/AdvReac Type Severity Reaction Status Date / Time moxifloxacin Allergy Severe S-ANAPHYLAX Verified 01/26/25 10:32 IS Sulfa (Sulfonamide Allergy Mild NA-NAUSEA/V Verified 01/26/25 10:32 Antibiotics) OMITING atorvastatin AdvReac Severe Other Verified 01/26/25 10:32 Results Laboratory Findings 03/29/25 05:01 03/29/25 05:01 PT/INR, D-dimer D-Dimer 0.86 ug/mL (0.0-0.5) H 03/28/25 21:15 Abnormal lab findings: Abnormal Labs 03/28/25 03/28/25 03/29/25 21:15 22:45 05:01 RBC 2.57 L D Hgb 7.0 L Hct 23.3 L MCH 24.9 L MCHC 30.2 L 30.0 L RDW 21.7 H 18.5 H Neut % (Auto) 89.8 H Lymph % (Auto) 5.7 L Lymph # (Auto) 0.4 L Band Neutrophils % 30 H Lymphocytes % (Manual) 2 L D-Dimer 0.86 H VBG pCO2 86.7 H VBG pO2 92.1 H VBG HCO3 44.4 H VBG Total CO2 47.0 H VBG O2 Saturation 97.1 H VBG Base Excess 18.4 H VBG Lactic Acid Chloride 92 L 110 H Carbon Dioxide 41 H* 21 L BUN 20 H 42 H D Creatinine 0.30 L 1.80 H D Estimated GFR 27 L Est GFR ( Amer) 33 L D Glucose 104 H 145 H D POC Glucose Calcium 8.3 L AST 54 H ALT 10 L D NT-Pro-B Natriuret Pep 625 H Total Protein 6.0 L 5.4 L Albumin 2.9 L 2.7 L Albumin/Globulin Ratio 0.9 L 1.0 L Urine Protein 3+ A Urine Blood 3+ A Urine Nitrate Positive A Ur Leukocyte Esterase 1+ A 03/29/25 03/29/25 05:30 07:10 RBC Hgb Hct MCH MCHC RDW Neut % (Auto) Lymph % (Auto) Lymph # (Auto) Band Neutrophils % Lymphocytes % (Manual) D-Dimer VBG pCO2 VBG pO2 75.2 H VBG HCO3 20.5 L VBG Total CO2 21.7 L VBG O2 Saturation 94.8 H VBG Base Excess -5.2 L VBG Lactic Acid 2.4 H Chloride Carbon Dioxide BUN Creatinine Estimated GFR Est GFR ( Amer) Glucose POC Glucose 160 H Calcium AST ALT NT-Pro-B Natriuret Pep Total Protein Albumin Albumin/Globulin Ratio Urine Protein Urine Blood Urine Nitrate Ur Leukocyte Esterase Assessment and Plan *Assessment and plan (1) Pleural effusion, bilateral: Status: Acute Category: Medical Code(s): J90 - Pleural effusion, not elsewhere classified Plan Ms. Davis is a 74-year-old female never smoker, no prior respiratory complaints, not using any oxygen supplementation or inhaler therapy at with history of heart failure reduced ejection fraction renal dysfunction type 2 diabetes mellitus hypothyroidism presented to ER with worsening respiratory distress and progressively worsening bilateral lower extremity pulmonary edema and pulmonary was called for further evaluation and management. Denies any subjective fevers or chills but denies any worsening productive phlegm/sputum discoloration Chest x-ray upon admission no dense consolidative/airspace changes noted. Left pleural effusion noted. Increased vascular congestion. CT abdomen showed bilateral pleural effusions small right and moderate left. Blood gas upon admission did not show any evidence of hypoxic/hypercarbic respiratory failure Afebrile. Hemodynamically stable. Mild neutrophilic predominant leukocytosis. Currently receiving nebulization therapies with diuretics and antibiotics including Zosyn. On examination does not appear to be in any respiratory distress. No wheezing noted. Decreased breath sounds lower lung elliott. Etiology of this patient's bilateral pleural effusions likely from volume overload. Plan: No need for antibiotics from pulmonary standpoint DuoNebs 4 times daily as needed Volume optimization as per primary team and cardio Monitor clinically to determine the need for thoracentesis. # Thank you for involving pulmonary in this patient care. Will continue to follow.
--- NOTE | 2025-03-29 09:53 | HMH.OTEV ---
OT Evaluation Rehab OT IP Evaluation Start: 03/29/25 01:41 Freq: ONCE Status: Active Protocol: Document 03/29/25 09:48 [facility] (Rec: 03/29/25 09:52 [facility] [id number]) Rehab OT IP Assessment Subjective History Pt oriented x 3 on arrival. Pt agreeable to engage in therapy evaluation. Pt admitted on 03/29/25 due to fluid overload. Per H&P: Michelle Davis is a 74-year-old female with a medical history significant for HFpEF on room air, former renal failure requiring temporary dialysis, type 2 diabetes, PAD, diabetic foot ulcers, CLL, hypothyroidism, GERD who presents from home with shortness of breath and progressive bilateral pitting edema. She states lower extremity edema began about 1 to 2 weeks ago, and shortness of breath began a few days ago. Patient had previously been on temporary dialysis at [facility] due to acute renal failure, has and dialysis dependent for several months. Endorses intermittent clear productive phlegm but denies chest pain, fever/chills, abdominal pain. Does not take any diuretics at this time. Workup in the ED significant for VBG pH 7.33, pCO2 86.7, bicarb 41, BNP 625, UA grossly abnormal, CT abdomen revealing moderate left pleural effusion and small right pleural effusion . CXR confirms this. On room air. Given IV Lasix 40 mg, DuoNebs, IV magnesium in the ED. Though VBG pH is compensated, patient has significant hypercapnia and pH low normal concerning for hypoventilation from pleural effusion. Given these findings, ED provider and I discussed case and I decided to admit patient for suspected HFpEF exacerbation, symptomatic pleural effusion. Subjective Pt reports she lives with her DIL who works during the day. Pt reports she has a hospital bed, RW, and w/c. Pt reports she hasn't ambulated in a couple of weeks. Normally pt is independent with dressing and feeding. However does require assistance with bathing. She is dependent on family for all IADLS. Objective Patient Orientation Person,Place,Birthday Right Upper Min Limitation <25% Extremity Gross ROM Left Upper Extremity Min Limitation <25% Gross ROM Shoulder ROM Muscle Weakness Limitations Elbow ROM Muscle Weakness Limitations Wrist Limitations of Muscle Weakness Range of Motion Bed Mobility bed mobility-scooting,bed mobility - supine/sit Assist Level Minimal x 1 (25% assist) Transfer Training Sit/Stand/Step Transfer Assist Level Minimal x 2 (25% assist) Lower Body Dressing Maximum Assistance Ability Rehab OT IP prob,goals,plan Problems Date of Evaluation: 03/29/25 OT IP Problems Bed Mobility,Transfers,Balance,Self care,Safety Rehab Potential Rehab Potential Good Equipment Needs Assistive Devices Rolling / Wheeled Walker Plan OT intervention Plan Bed Mobility,Transfers,Balance,Self care,Safety, Therapeutic Exercise OT Plan Frequency Daily Duration LOS Discharge Goals Bed Mobility Ability Assistance x1 Sit to Stand Chair Contact Guard/Hand Hold,Minimal x 1 (25% assist) Transfer Ability Chair Transfer Contact Guard/Hand Hold,Minimal x 1 (25% assist) Ability Chair Transfer Sit to/from Ambulatory Technique Chair Transfer Rolling Walker Assistive Devices Lower Body Dressing Moderate Assistance Ability Upper Body Dressing Minimal Assistance Ability Bathing Ability Minimal Assistance Performing Toilet Minimal Assistance Hygiene Ability Overall Commode/ Minimal Assistance Toilet Transfer Ability Commode/Toilet Sit to/from Ambulatory Transfer Technique Discharge Plan OT Discharge Plan Pt will continue to be seen for OT services while at [facility]. Pt presents below baseline for functional transfers and ADL independence. Pt would benefit most from short term rehab following discharge from hospital . Continued skilled therapy is important in order for patient to improve strength, safety, endurance, ADL independence, and functional transfers to reach PLOF. Eval Complexity Eval Charge Codes 28534 - Moderate Complexity PHYSICIAN CERTIFICATION: I certify the specified therapy services for Michelle Rivas are required, authorized, and reviewed every 30 days.
--- NOTE | 2025-03-29 09:53 | SW/DCPLANNER ---
Addendum entered by [facility] 04/05/25 14:55: Patient has been approved SNF level of care and will discharge to [facility] today. Addendum entered by [facility] 04/05/25 11:26: Per [facility] precert is still pending at this time. Addendum entered by [facility] 04/04/25 15:18: [facility] will start auth today. Addendum entered by [facility] 04/04/25 12:31: Due to [facility] not having a bed till Friday patient is agreeable for information to be faxed to [facility]. Antwon mon/ Rebekah is currently reviewing information. I will follow up once information is reviewed. Per patient is medically stable for discharge today. Addendum entered by [facility] 03/31/25 11:10: I have updated [facility] that per Dr Paulino patient is not medically stable for discharge today. CM will continue to follow up. Addendum entered by [facility] 03/30/25 07:47: Updated patient information will be faxed to [facility] / [facility]. Per [facility] auth will be started today. I will confirm. CM will continue to follow up. Addendum entered by [facility] 03/29/25 12:29: Per [facility] he can accept this patient SNF level of care pending auth. [facility] will wait till tomorrow to start auth due to patient not being ready for discharge. CM will continue to follow up. Original Note: I spoke w/ this patient regarding plans once medically stable for discharge. PT/OT evaluated patient and recommended SNF level of care. Patient is agreeable to placement and prefers to stay in [place]. [facility] currently has a female bed open. Patient information will be faxed. [facility] does not have any beds open at this time. [facility] is not in network w/ patient's insurance. I will follow up w/ [facility] once information is reviewed. Discharge date is unknown at this time. CM will continue to follow up.
[2025-03-29 10:00] LABS: Hemoglobin A1C 5.3 % (4.0-6.0)
--- NOTE | 2025-03-29 10:16 | EXP.CARD.CON ---
History of Present Illness History of Present Illness Consult date: 03/29/25 Requesting physician: Celso Dominguez Chief complaint: SOA History of present illness: 74-year-old white female established patient of our office presented to the emergency room with shortness of breath. Admitted for volume overload and UTI. We are consulted for HFpEF. Ms. Davis is an established patient of our office with history of decades of poorly controlled diabetes with resulting critical bilateral lower extremity PAD w/non-healing wounds and end-stage renal disease. Recently short interval hemodialysis. Patient reports her port was removed recently and is no longer requiring dialysis. Creatinine on arrival 0.6 but this morning is 1.8. Initial was possibly dilutional. Our office last saw patient in December with an abnormal stress test indicating TID, left heart cath was ordered but patient states she did not present because she was at a intermediate and had poor ambulation. She denies anginal symptoms. Historically she has presented numerous times with volume overload but was in the setting of CKD 4/ESRD. Last 2D ECHO was in July and showed minimal age-related findings including mild biatrial dilation and mild MR TR. Patient presented here via EMS yesterday with complaints of shortness of breath and lower extremity edema worsening for 2 weeks. On workup she was found to have severe compensated hypercapnia mild bilateral lower lobe effusions, proBNP 625. Most notably her UA was positive for 3+ protein, 3+ blood, positive nitrates and leukocytes. She was started on antibiotics and admitted overnight. This morning patient reports she is feeling a bit stronger but still has significant bilateral lower extremity edema and mild shortness of breath at rest. 2D echo has been ordered and results pending. She denies anginal symptoms. [facility] Disclaimer: The information contained in this section may have been updated after the patient was seen, as this information can be updated by other users. Medical History Atypical angina Fatigue Abnormal findings on diagnostic imaging of heart and coronary circulation Other forms of dyspnea Edema Dialysis patient SOB (shortness of breath) Essential hypertension CLL (chronic lymphocytic leukemia) CKD (chronic kidney disease) Type 2 diabetes mellitus with diabetic polyneuropathy Hypertension (HFpEF) heart failure with preserved ejection fraction Peripheral arterial occlusive disease Hyperlipidemia CKD (chronic kidney disease) stage 4, GFR 15-29 ml/min Elevated BUN Callus of foot Hypervolemia Leukocytosis UTI (urinary tract infection) Urinary tract infectious disease Sepsis without septic shock Noncompliance Acute kidney injury superimposed on chronic kidney disease Diabetic foot ulcer Sinusitis Hyperkalemia Urinary tract infection Hyperkalemia High anion gap metabolic acidosis Renal failure Falls frequently Viral URI with cough Skin infection, bacterial Avulsed toenail Ulcer of right great toe due to diabetes mellitus Frequent falls Statin intolerance Hyperlipidemia Bradycardia Syncope and collapse Syncope Falls Neuropathy Osteopenia Onychodystrophy Pain of toe of right foot Fracture of second toe, right, closed Edema of toe Acquired hammer toe Closed rib fracture Fall Hyperglycemia due to type 2 diabetes mellitus Bacteremia due to Klebsiella pneumoniae UTI due to Klebsiella species Gram-negative bacteremia DKA (diabetic ketoacidoses) Hyperglycemia due to type 2 diabetes mellitus CLL (chronic lymphocytic leukemia) History of hypertension Diabetes mellitus Surgical History H/O lithotripsy History of cholecystectomy Family History Other Cancer Congestive heart failure (CHF) Heart disease Lymphoma Social History Smoking Status: Never smoker alcohol intake: never substance use type: denies use current occupational status: retired Travel in the last 8 weeks?: None household members: none housing: house caffeine: Yes Have you lived/traveled outside US in past 30 days?: No Contact w/someone who lives/traveled outside US past 30 days?: No Exposure to someone with infectious disease in past 14 days?: No Do you have a fever (greater than 100.4 F or 38 C)?: No Have you tested positive for COVID-19?: No Exposed to someone with COVID-19 in past 14 days?: No Do you have a sore throat?: No Do you have a cough?: No Do you have any weakness?: No Are you experiencing any nausea/vomitting?: No Do you have any diarrhea?: No Are you experiencing any unusual bleeding?: No Do you have any muscle aches/pain?: No Do you have any abdominal pain?: No Are you experiencing loss of taste or smell?: No Review of Systems Constitutional Constitutional: Reports fatigue and Reports weakness Eyes Eyes: Denies loss of vision ENT Ears, Nose, Mouth, and Throat: Denies hearing loss and Denies vertigo *Cardiovascular Cardiovascular: Denies chest pain, Denies dyspnea, Reports leg edema, Reports leg ulcers, Reports pedal edema and Denies syncope *Respiratory Respiratory: Denies cough and Denies dyspnea *Gastrointestinal Gastrointestinal: Denies change in stool character, Denies nausea and Denies vomiting *Musculoskeletal Musculoskeletal: Denies muscle weakness Integumentary/Breasts Skin/Breast: Denies changing lesions *Neurologic Neurologic: Denies loss of vision, Denies syncope, Denies vertigo and Reports weakness Endocrine Endocrine: Reports fatigue Exam Data for Last 24 hours Vital signs and Labs for Last 24 Hours: Temp Pulse Resp BP Pulse Ox O2 Del Method 98.2 F 73 19 179/73 H 99 Room Air 03/29/25 08:00 03/29/25 08:00 03/29/25 08:00 03/29/25 08:00 03/29/25 08:00 03/29/25 09:00 Laboratory Results - last 24 hr 03/28/25 21:15: WBC 6.3, RBC 4.89, Hgb 12.2, Hct 40.4, MCV 82.6, MCH 24.9 L, MCHC 30.2 L, RDW 21.7 H, Plt Count 219, MPV 10.4, Neut % (Auto) 89.8 H, Lymph % (Auto) 5.7 L, [place] % (Auto) 2.4, Eos % (Auto) 0.2, Baso % (Auto) 1.1, Neut # (Auto) 5.7, Lymph # (Auto) 0.4 L, [place] # (Auto) 0.2, Eos # (Auto) 0.0, Baso # (Auto) 0.1, Total Counted 100, Neutrophils % (Manual) 63, Band Neutrophils % 30 H, Lymphocytes % (Manual) 2 L, Monocytes % (Manual) 5, D-Dimer 0.86 H, VBG pH 7.33, VBG pCO2 86.7 H, VBG pO2 92.1 H, VBG HCO3 44.4 H, VBG Total CO2 47.0 H, VBG O2 Saturation 97.1 H, VBG Base Excess 18.4 H, VBG Lactic Acid 1.1, Sodium 138, Potassium 5.1, Chloride 92 L, Carbon Dioxide 41 H*, Anion Gap 10.1, BUN 20 H, Creatinine 0.30 L, Estimated Creat Clear 69, Estimated GFR 216, Est GFR ( Amer) 262, Glucose 104 H, Calcium 9.5, Magnesium 1.9, Total Bilirubin 0.3, AST 54 H, ALT 51, Alkaline Phosphatase 82, Troponin I 0.01, NT-Pro-B Natriuret Pep 625 H, Total Protein 6.0 L, Albumin 2.9 L, Globulin 3.1, Albumin/Globulin Ratio 0.9 L, Lipase 37, Acetone Level None detected 03/28/25 22:45: Urine Color Yellow, Urine Appearance Clear, Urine pH 6.0, Ur Specific [place] 1.020, Urine Protein 3+ A, Urine Glucose (UA) Trace, Urine Ketones Negative, Urine Blood 3+ A, Urine Nitrate Positive A, Urine Bilirubin Negative, Urine Urobilinogen 0.2, Ur Leukocyte Esterase 1+ A, Urine RBC 10-20, Urine WBC 10-20, Ur Squamous Epith Cells 3-5, Urine Bacteria 3+ 03/29/25 00:50: Troponin I < 0.01 03/29/25 05:01: WBC 10.7 D, RBC 2.57 L D, Hgb 7.0 L, Hct 23.3 L, MCV 90.7, MCH 27.2, MCHC 30.0 L, RDW 18.5 H, Plt Count 290 D, MPV 9.8, Neut % (Auto) 59.2, Lymph % (Auto) 31.9, [place] % (Auto) 6.0, Eos % (Auto) 2.2, Baso % (Auto) 0.4, Neut # (Auto) 6.3, Lymph # (Auto) 3.4, [place] # (Auto) 0.6, Eos # (Auto) 0.2, Baso # (Auto) 0.0, Sodium 137, Potassium 4.0 D, Chloride 110 H, Carbon Dioxide 21 L, Anion Gap 10.0, BUN 42 H D, Creatinine 1.80 H D, Estimated Creat Clear 36, Estimated GFR 27 L, Est GFR ( Amer) 33 L D, Glucose 145 H D, Hemoglobin A1c 5.3, Calcium 8.3 L, Magnesium 2.2 D, Total Bilirubin 0.2, AST 15 D, ALT 10 L D, Alkaline Phosphatase 82, Total Protein 5.4 L, Albumin 2.7 L, Globulin 2.7, Albumin/Globulin Ratio 1.0 L 03/29/25 05:30: POC Glucose 160 H 03/29/25 07:10: VBG pH 7.34, VBG pCO2 38.6, VBG pO2 75.2 H, VBG HCO3 20.5 L, VBG Total CO2 21.7 L, VBG O2 Saturation 94.8 H, VBG Base Excess -5.2 L, VBG Lactic Acid 2.4 H I & O for Last 24 hours: Intake & Output 03/26/25 03/27/25 03/28/25 03/29/25 23:59 23:59 23:59 23:59 Intake Total 50 / 50 360 / 360 Output Total 500 / 500 Balance 50 / 50 -140 / -140 Weight 200 lb 190 lb 9 oz Microbiology Reports for the Last 24 Hours: Microbiology 03/28/25 22:45 Urine,Clean Catch Urine Culture - Preliminary Meds Home Medications and Allergies Home Medications ?Medication ?Instructions ?Recorded ?Confirmed ?Type nifedipine 60 mg tablet,extended 60 mg PO DAILY 12/29/24 03/29/25 History release mirtazapine 15 mg tablet (Remeron) 15 mg PO HS 01/26/25 03/29/25 History clopidogrel 75 mg tablet 75 mg PO DAILY #90 tabs 02/11/25 03/29/25 Rx isosorbide mononitrate 60 mg 60 mg PO DAILY #90 tabs 02/11/25 03/29/25 Rx tablet,extended release 24 hr pen needle, diabetic 31 gauge x #100 ea 02/11/25 03/29/25 Rx 5/16 (Ultra-Fine Pen Needle) valsartan 160 mg tablet 160 mg PO DAILY #90 tabs 02/11/25 03/29/25 Rx gabapentin 300 mg capsule 300 mg PO HS #90 caps 03/17/25 03/29/25 Rx levothyroxine 88 mcg tablet 88 mcg PO DAILY #90 tabs 03/17/25 03/29/25 Rx atorvastatin 40 mg tablet 40 mg PO HS 03/29/25 03/29/25 History bumetanide 1 mg tablet 1 mg PO DAILY 03/29/25 03/29/25 History insulin glargine 100 unit/mL (3 10 unit SQ DAILY Diabetes 03/29/25 03/29/25 History mL) subcutaneous pen New Prescriptions to Start Prescriptions: Allergies Allergy/AdvReac Type Severity Reaction Status Date / Time moxifloxacin Allergy Severe S-ANAPHYLAX Verified 01/26/25 10:32 IS Sulfa (Sulfonamide Allergy Mild NA-NAUSEA/V Verified 01/26/25 10:32 Antibiotics) OMITING atorvastatin AdvReac Severe Other Verified 01/26/25 10:32 Assessment and Plan *Assessment and plan (1) Cardiorenal syndrome: Status: Acute Category: Medical Code(s): I13.10 - Hypertensive heart and chronic kidney disease without heart failure, with stage 1 through stage 4 chronic kidney disease, or unspecified chronic kidney disease (2) ESRD (end stage renal disease): Status: Acute Category: Medical Code(s): N18.6 - End stage renal disease (3) Unable to care for self: Status: Acute Category: Medical Code(s): Z78.9 - Other specified health status (4) Pressure ulcer of left heel: Status: Acute Qualifiers: Pressure injury stage: stage 3 Qualified Code(s): L89.623 - Pressure ulcer of left heel, stage 3 Category: Medical Code(s): L89.629 - Pressure ulcer of left heel, unspecified stage (5) Abnormal findings on diagnostic imaging of heart and coronary circulation: Status: Acute Category: Medical Code(s): R93.1 - Abnormal findings on diagnostic imaging of heart and coronary circulation Plan Acute on Chronic Cardiorenal Syndrome Type 4 - known severe CKD-IV/ESRD, recent dialysis port removed, details unclear - pt historically with only mild age related changes on ECHO - mild biatrial dilation and mild MR/TR - ProBNP 650 - severe pitting edema, knee high bilaterally - small pleural effusions - severe GANT - Plan: GDMT as tolerated (No ARB/ARNI due to recent ESRD. No SGLT-2 due to UTI. Consider Aldactone vs Karendia pending ECHO results. Repeat 2D ECHO. Diurese cautiously. She received Lasix 40mg x1, now on Bumex 1mg BID. Trend strict I/O. Daily BMP. Mild MR/TR and Biatrial Dilation - Details as above - Repeat 2D ECHO Abnl Stress test - Myoview 12/2024, no ischemia noted, borderline TID at 1.2 - known vasculopathy with decades of poorly controlled DM - likely has CAD but denies anginal symptoms and normal EF, normal Troponin. No indication for procedural intervention at this time as contrast dye would carry significant risk for her kidneys - cont ASA, add statin and BB PAD - extensive BLE dz w/non-healing wounds - has seen vascular surgery with intervention elsewhere, details unclear - cont ASA, Lovenox, resume statin, add wound care Diabetic Nephropathy with CKD-IV/ESRD - Cr historically 2-3, recently required dialysis, port removed, details unclear - here with Cr 0.6 then 1.8 - possibly dilutional initially - 3+ proteinuria - cautious diuresis, dose adjust meds, daily BMP DM - last A1C 9.5 - glucose control per primary service Htn - unknown baseline - consistently 150-170 here - cont Aldactone, diuresis, add Toprol, add Hydralazine UTI - urine pos for protein, blood, luekocytes, and nytrates - WBC nml - afebrile - Ab per primary service CV Summary 03/29: Complex pt with high risk for further decline. Recommendations as noted above. Likely another 2-3 day admission. No immediate plans for CV procedures.
[2025-03-29 11:26] LABS: Reflex Lactic Add Lactic Reflex
[2025-03-29 12:03] LABS: POC Glucose,Bedside 173 gm/dL (70-110)
[2025-03-29] MEDS: METOPROLOL SUCCINATE XL 25MG TABLET 25 MG PO (12:05)
[2025-03-29] MEDS: CLOPIDOGREL 75MG TAB 75 MG PO (12:06)
[2025-03-29] MEDS: BUMETANIDE 1 MG TABLET PO (12:06)
[2025-03-29] MEDS: ISOSORBIDE MONO 60MG TAB.ER.24H 60 MG PO (12:06)
[2025-03-29] MEDS: LEVOTHYROXINE 88MCG (0.088MG) TAB 88 MCG PO (12:07)
[2025-03-29] MEDS: HYDRALAZINE HCL 25MG TABLET 50 MG PO ×2 (12:08→20:43)
[2025-03-29 12:16] LABS: Lactic Acid Follow Up (RFLX 1) 1.3 mmol/L (0.7-2.1)
--- OUTSIDE RECORDS SUMMARY | 2025-03-29 14:20 | XMS_ITS | Encounter Summary ---
[facility] Address [address] [place] [address] Care Team Providers Care Manager Business Systems Name Role Phone Lila Parekh APRN Primary Care Provider [phone] Encounter Details Date Type Department Care Team (Late st Contact Info) Description 07/13/2014 External CPT II HARMONIC ANALYST - [facility] Social History Tobacco Use [...] on filedocumented in this encounter Care Teams Manager Business Systems Relationship Specialty Start Date End Date Lila Parekh APRN [address] [facility] [place] [id number] PCP - General Nurse Practitioner 01/14/24 documented as of this encounter
--- OUTSIDE RECORDS SUMMARY | 2025-03-29 14:20 | XMS_ITS | Encounter Summary ---
[facility] [address] [place] [address] Care Team Providers Care Body Hanger Name Role Phone Lila Parekh APRN Primary Care Provider [phone] Encounter Details Date Type Department Care Team (Late st Contact Info) Description 03/02/2014 External CPT II CLINICAL NURSE EDUCATOR - [facility] Social History Tobacco Use [...] on filedocumented in this encounter Care Teams Body Hanger Relationship Specialty Start Date End Date Lila Parekh APRN [address] [facility] [place] [address] PCP - General Nurse Practitioner 01/14/24 documented as of this encounter
--- OUTSIDE RECORDS SUMMARY | 2025-03-29 14:20 | XMS_ITS | Encounter Summary ---
[facility] Address [address] [place] [address] Care Team Providers Care Bus Attendant Name Role Phone Lila Parekh APRN Primary Care Provider [phone] Encounter Details Date Type Department Care Team (Late st Contact Info) Description 07/06/2015 External CPT II DIGITAL MEDIA SPECIALIST - [facility] Social History Tobacco Use [...] on filedocumented in this encounter Care Teams Bus Attendant Relationship Specialty Start Date End Date Lila Parekh APRN [address] [facility] [place] [address] PCP - General Nurse Practitioner 01/14/24 documented as of this encounter
--- OUTSIDE RECORDS SUMMARY | 2025-03-29 14:20 | XMS_ITS | Clinical Summary ---
Author Organization [facility] Address [address] [id number] Care Team Providers Care Onboarding Specialist Name Role Phone SilverAubree livingston Oksana ROSE Primary Care Provider [phone] Allergies Active Allergy Reactions Criticality Noted Date [...] Wellness (AWV) 1950 UKY-/Child/Adol SDOH Screenings 1950 [id number] Vaccine (#1) 1953 Diabetes: Dental Exam 1958 [...] to Health Maintenance Insurance MEDICARE Care Teams Onboarding Specialist Relationship Specialty Start Date End Date Aubree Silver APRN [address] [place] [id number] PCP - General 03/01/21
--- OUTSIDE RECORDS SUMMARY | 2025-03-29 14:20 | XMS_ITS | Patient Health Record ---
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 confirmed Problem Foot ulcer due to type 2 diabetes mellitus (9092173722484) Type 2 diabetes mellitus with foot ulcer (E11.621) Active confirmed Problem Iron deficiency (59929114) Iron deficiency (E61.1) Active confirmed Problem Mixed hyperlipidemia (194957701) Mixed hyperlipidemia (E78.2) Active confirmed Problem Cellulitis of right lower limb (0013314670554891 4) Cellulitis of right lower limb (L03.115) Active confirmed Problem Cellulitis of left lower limb (2046759617956332 9) Cellulitis of left lower limb (L03.116) Active confirmed Problem 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) Active confirmed Problem End stage renal disease (40412859) End stage renal disease (N18.6) Active confirmed Problem Anxiety (32006844) Anxiety (F41.9) Active confirmed Problem Benign essential hypertension (8797613) Benign essential hypertension (I10) Active confirmed Problem Hypothyroidism (67507453) Hypothyroidism (E03.9) Active confirmed Problem Primary osteoarthritis (767615832) Primary osteoarthritis involving multiple joints (M15.0) Active confirmed Problem Diabetes mellitus type 2 (37279687) Diabetes mellitus type 2, uncontrolled (E11.65) Active confirmed Problem Peripheral vascular disease (003246257) Peripheral vascular disease (I73.9) Active confirmed Problem Nephrotic syndrome (83066050) Nephrotic syndrome (N04.9) Active confirmed Problem Dependence on hemodialysis (164152489) Dependence on hemodialysis (Z99.2) Active confirmed Problem Acute metabolic acidosis (E87.21) Active confirmed Encounters Encounter Location Date Provider Diagnosis [facility] [address] [place] [address] 12/22/2024 Ariana Kwame [facility] [address] [place] [address] 12/22/2024 Ariana Puente [facility] [address] [place] [address] 01/28/2025 MARY GOODWIN [facility] [address] [place] [address] 01/28/2025 MARY GOODWIN [facility] [address] [place] [address] 01/28/2025 MARY GOODWIN [facility] [address] [place] [address] 01/28/2025 MARY GOODWIN Plan Of Treatment No Information Insurance Providers Payer Name Payer Address Payer Phone Subscriber Number Group Number Insured Name Patient Relationship to Insured Coverage Start Date Coverage End Date [employer] MEDICARE [address] [address] [place] [address] [id number] STACEY BOYD Self - patient is the insured
--- OUTSIDE RECORDS SUMMARY | 2025-03-29 14:20 | XMS_ITS | Encounter Summary ---
[facility] Address [address] [place] [address] Care Team Providers Care Horseradish Maker Name Role Phone Lila Parekh APRN Primary Care Provider [phone] Encounter Details Date Type Department Care Team (Late st Contact Info) Description 05/30/2017 External CPT II BRAKE HOLDER - [facility] Social History Tobacco Use [...] on filedocumented in this encounter Care Teams Horseradish Maker Relationship Specialty Start Date End Date Lila Parekh APRN [address] [facility] [place] [address] PCP - General Nurse Practitioner 01/14/24 documented as of this encounter
--- OUTSIDE RECORDS SUMMARY | 2025-03-29 14:20 | XMS_ITS | Clinical Summary ---
Author Organization [facility] Address [address] [place] [address] Care Team Providers Care Varnish Cooker Name Role Phone Lila Parekh APRN Primary Care Provider [phone] Allergies Active Allergy Reactions Criticality Noted Date [...] (03/10/2018): Added automatically from request for surgery [id number] Type 2 diabetes mellitus 02/21/2015 Overview (02/14/2016): [...] ventricular function, medical management will be continued.2005, [facility] nonobstructive.November 2014, [facility] at [facility] with fixed anteroapical defect, EF 79%. Osteoarthritis [...] - 5.60 % 03/19/2018 10:33 AM EDT [facility] Blood Line / Unknown 03/19/2018 7: 31 AM EDT 03/19/2018 9:37 AM EDT Narrative [facility] - 03/19/2018 10:33 AM EDT The [place] [employer] recommends maintenance of Hemoglobin A1C at 7.0% or lower. Goals for Hemoglobin A1C reduction may need to be modified if hypoglycemia is a problem. us Augustina Ray APRN LAB BLOOD ORDERABLES Final Result [facility]
[address] [place] [address], * (ABNORMAL) Lipid Panel (03/19/2018 7:31 AM EDT) Total Cholesterol 241(H) 0 - 200 mg/dL 03/19/2018 8:20 AM EDT [facility] Triglycerides 290(H) 0 - 150 mg/dL 03/19/2018 8:20 AM EDT [facility] HDL Cholesterol 46 40 - 60 mg/dL 03/19/2018 8:20 AM EDT [facility] LDL Cholesterol 169(H) 0 - 130 mg/dL 03/19/2018 8:20 AM EDT [facility] Blood Line / Unknown 03/19/2018 7: 31 AM EDT 03/19/2018 7:38 AM EDT Narrative [facility] - 03/19/2018 8:20 AM EDT Cholesterol [...] Ray APRN LAB BLOOD ORDERABLES Final Result [facility]
[address] [place] [address], from Last 3 Months or Most Recently Relevant to Health Maintenance Insurance MEDICARE ADVANTAGE HMO Care Teams Varnish Cooker Relationship Specialty Start Date End Date Lila Parekh APRN [address] [place] [address] PCP - General Nurse Practitioner 01/14/24
[2025-03-29] MEDS: BUMETANIDE 1MG/4ML VIAL 2 MG IV (17:32)
[2025-03-29 18:05] LABS: POC Glucose,Bedside 159 gm/dL (70-110)
[2025-03-29] MEDS: MIRTAZAPINE 15 MG TABLET PO (20:43)
[2025-03-29] MEDS: PRAVASTATIN 40MG TAB 40 MG PO (20:43)
[2025-03-29] MEDS: GABAPENTIN 300MG CAPSULE 300 MG PO (20:43)
[2025-03-30] VITALS (17 sets, daily range): BP systolic 112–148; BP diastolic 46–84; PULSE 47–63; RESP 16–20; TEMP 36.5–37; O2SAT 93–99; BMI 29.4
[2025-03-30] MEDS: PIPERACILLIN/TAZO 2.25 GM in 0.9 % SODIUM CHLORIDE 50 ML IV ×4 (01:23→20:38)
--- NOTE | 2025-03-30 04:06 | PC.NURSE ---
Alert and oriented. Up to chair at beginning of shift. Pivots to the bed with 1 assist. No complaints this shift. Fluid restriction. Purewick in place. Bilateral heel ulcers, foam dressing. Pitting edema noted to bilateral lower extremities. Room air. Call light in reach.
[2025-03-30 06:00] LABS: Hematocrit 21.8 % (37.0-47.0); Immature Granulocytes % 0.3 %; Mean Corpuscular HGB Conc 31.7 g/dL (31.8-35.4); Mean Corpuscular Hemoglobin 27.9 pg (27.0-31.2); Mean Corpuscular Volume 88.3 fl (81-99); Nucleated Red Blood Cells % 0 %; Platelet Count 257 K/mm3 (142-424); Red Blood Count 2.47 M/mm3 (4.20-5.40); Red Cell Distribution Width-SD 59.6 fL; White Blood Count 8.8 K/mm3 (4.8-10.8)
[2025-03-30 06:02] LABS: Hemoglobin 6.9 g/dL (12.2-16.2)
[2025-03-30 06:32] LABS: POC Glucose,Bedside 127 gm/dL (70-110)
[2025-03-30] MEDS: LEVOTHYROXINE 88MCG (0.088MG) TAB 88 MCG PO (06:46)
[2025-03-30] MEDS: METOPROLOL SUCCINATE XL 25MG TABLET 25 MG PO (08:46)
[2025-03-30] MEDS: HYDRALAZINE HCL 25MG TABLET 50 MG PO ×3 (08:46→20:38)
[2025-03-30] MEDS: ISOSORBIDE MONO 60MG TAB.ER.24H 60 MG PO (08:46)
[2025-03-30] MEDS: SPIRONOLACTONE 25MG TABLET 25 MG PO (08:46)
[2025-03-30 08:47] LABS: Alanine Aminotransferase 8 U/L (12-78); Albumin Level 2.3 g/dl (3.5-5.0); Albumin/Globulin Ratio 0.9 (1.1-1.8); Alkaline Phosphatase 83 U/L (38-126); Anion Gap 10.4 mEq/L (5-15); Aspartate Amino Transferase 15 U/L (14-36); Bilirubin,Total 0.3 mg/dl (0.2-1.3); Blood Urea Nitrogen 41 mg/dl (7-17); Calcium 7.6 mg/dl (8.4-10.2); Carbon Dioxide 20 mmol/L (22.0-30.0); Chloride 110 mmol/L (98-107); Creatinine Clearance Estimated 32 mL/min (50-200); Creatinine,Serum 2.10 mg/dl (0.52-1.04); Estimated Glomerular Filt Rate 23 ml/min (>60); GFR (African American) 28 ML/MIN (>60); Globulin 2.5 g/dL (1.3-3.2); Glucose 114 mg/dl (74-100); Magnesium 2.0 mg/dl (1.6-2.3); Potassium 4.4 mmoL/L (3.5-5.1); Sodium 136 mmol/L (136-145); Total Protein,Serum 4.8 g/dl (6.3-8.2)
[2025-03-30] MEDS: BUMETANIDE 1MG/4ML VIAL 2 MG IV ×2 (08:56→16:01)
[2025-03-30] MEDS: INSULIN GLARGINE 100 UNITS/ML 3ML FLEXPEN 10 UNIT SUBCUT (08:58)
--- NOTE | 2025-03-30 09:14 | P.PN_ITS ---
Subjective *Date: 03/30/25 *Time: 12:48 Interval history: No acute respiratory vents overnight. Patient admits improving respiratory symptoms. Pulmonology Exam Inpatient Vital signs and Labs for Last 24 Hours: Temp Pulse Resp BP Pulse Ox O2 Del Method 98.3 F 50 L 18 112/55 L 98 Room Air 03/30/25 08:00 03/30/25 08:00 03/30/25 08:00 03/30/25 08:00 03/30/25 08:00 03/30/25 09:00 Laboratory Results - last 24 hr 03/29/25 05:01: Hemoglobin A1c 5.3 03/29/25 10:48: POC Glucose 173 H 03/29/25 11:57: Lactate 1.3 03/29/25 17:29: POC Glucose 159 H 03/30/25 05:23: WBC 8.8, RBC 2.47 L, Hgb 6.9 L, Hct 21.8 L, MCV 88.3, MCH 27.9, MCHC 31.7 L, RDW 18.3 H, Plt Count 257, MPV 9.6, Neut % (Auto) 51.5, Lymph % (Auto) 37.5, [place] % (Auto) 6.8, Eos % (Auto) 3.4, Baso % (Auto) 0.5, Neut # (Auto) 4.5, Lymph # (Auto) 3.3, [place] # (Auto) 0.6, Eos # (Auto) 0.3, Baso # (Auto) 0.0, Sodium 136, Potassium 4.4, Chloride 110 H, Carbon Dioxide 20 L, Anion Gap 10.4, BUN 41 H, Creatinine 2.10 H, Estimated Creat Clear 32, Estimated GFR 23 L, Est GFR ( Amer) 28 L, Glucose 114 H, Calcium 7.6 L, Magnesium 2.0, Total Bilirubin 0.3, AST 15, ALT 8 L, Alkaline Phosphatase 83, Total Protein 4.8 L, Albumin 2.3 L D, Globulin 2.5, Albumin/Globulin Ratio 0.9 L 03/30/25 06:24: POC Glucose 127 H 03/30/25 06:53: Blood Type A Positive, Antibody Screen Negative, Crossmatch (AHG) See Detail Temp Pulse Resp BP Pulse Ox O2 Del Method 98.2 F 73 19 179/73 H 99 Room Air 03/29/25 08:00 03/29/25 08:00 03/29/25 08:00 03/29/25 08:00 03/29/25 08:00 03/29/25 08:00 Laboratory Results - last 24 hr 03/28/25 21:15: WBC 6.3, RBC 4.89, Hgb 12.2, Hct 40.4, MCV 82.6, MCH 24.9 L, MCHC 30.2 L, RDW 21.7 H, Plt Count 219, MPV 10.4, Neut % (Auto) 89.8 H, Lymph % (Auto) 5.7 L, [place] % (Auto) 2.4, Eos % (Auto) 0.2, Baso % (Auto) 1.1, Neut # (Auto) 5.7, Lymph # (Auto) 0.4 L, [place] # (Auto) 0.2, Eos # (Auto) 0.0, Baso # (Auto) 0.1, Total Counted 100, Neutrophils % (Manual) 63, Band Neutrophils % 30 H, Lymphocytes % (Manual) 2 L, Monocytes % (Manual) 5, D-Dimer 0.86 H, VBG pH 7.33, VBG pCO2 86.7 H, VBG pO2 92.1 H, VBG HCO3 44.4 H, VBG Total CO2 47.0 H, VBG O2 Saturation 97.1 H, VBG Base Excess 18.4 H, VBG Lactic Acid 1.1, Sodium 138, Potassium 5.1, Chloride 92 L, Carbon Dioxide 41 H*, Anion Gap 10.1, BUN 20 H, Creatinine 0.30 L, Estimated Creat Clear 69, Estimated GFR 216, Est GFR ( Amer) 262, Glucose 104 H, Calcium 9.5, Magnesium 1.9, Total Bilirubin 0.3, AST 54 H, ALT 51, Alkaline Phosphatase 82, Troponin I 0.01, NT-Pro-B Natriuret Pep 625 H, Total Protein 6.0 L, Albumin 2.9 L, Globulin 3.1, Albumin/Globulin Ratio 0.9 L, Lipase 37, Acetone Level None detected 03/28/25 22:45: Urine Color Yellow, Urine Appearance Clear, Urine pH 6.0, Ur Specific [place] 1.020, Urine Protein 3+ A, Urine Glucose (UA) Trace, Urine Ketones Negative, Urine Blood 3+ A, Urine Nitrate Positive A, Urine Bilirubin Negative, Urine Urobilinogen 0.2, Ur Leukocyte Esterase 1+ A, Urine RBC 10-20, Urine WBC 10-20, Ur Squamous Epith Cells 3-5, Urine Bacteria 3+ 03/29/25 00:50: Troponin I < 0.01 03/29/25 05:01: WBC 10.7 D, RBC 2.57 L D, Hgb 7.0 L, Hct 23.3 L, MCV 90.7, MCH 27.2, MCHC 30.0 L, RDW 18.5 H, Plt Count 290 D, MPV 9.8, Neut % (Auto) 59.2, Lymph % (Auto) 31.9, [place] % (Auto) 6.0, Eos % (Auto) 2.2, Baso % (Auto) 0.4, Neut # (Auto) 6.3, Lymph # (Auto) 3.4, [place] # (Auto) 0.6, Eos # (Auto) 0.2, Baso # (Auto) 0.0, Sodium 137, Potassium 4.0 D, Chloride 110 H, Carbon Dioxide 21 L, Anion Gap 10.0, BUN 42 H D, Creatinine 1.80 H D, Estimated Creat Clear 36, Estimated GFR 27 L, Est GFR ( Amer) 33 L D, Glucose 145 H D, Calcium 8.3 L, Magnesium 2.2 D, Total Bilirubin 0.2, AST 15 D, ALT 10 L D, Alkaline Phosphatase 82, Total Protein 5.4 L, Albumin 2.7 L, Globulin 2.7, Albumin/Globulin Ratio 1.0 L 03/29/25 05:30: POC Glucose 160 H 03/29/25 07:10: VBG pH 7.34, VBG pCO2 38.6, VBG pO2 75.2 H, VBG HCO3 20.5 L, VBG Total CO2 21.7 L, VBG O2 Saturation 94.8 H, VBG Base Excess -5.2 L, VBG Lactic Acid 2.4 H I & O for Labs for Last 24 Hours: Intake & Output 03/27/25 03/28/25 03/29/25 03/30/25 23:59 23:59 23:59 23:59 Intake Total 50 / 50 870 / 1050 470 / 470 Output Total 700 / 700 325 / 325 Balance 50 / 50 170 / 350 145 / 145 Weight 200 lb 190 lb 9 oz 194 lb 1.6 oz Intake & Output 03/26/25 03/27/25 03/28/25 03/29/25 23:59 23:59 23:59 23:59 Intake Total 50 / 50 360 / 360 Output Total 500 / 500 Balance 50 / 50 -140 / -140 Weight 200 lb 190 lb 9 oz Microbiology Reports for the Last 24 Hours: Microbiology 03/28/25 22:45 Urine,Clean Catch Urine Culture - Preliminary 03/29/25 05:01 Blood Blood Culture - Preliminary NO GROWTH AFTER 24 HOURS 03/29/25 05:01 Blood Blood Culture - Preliminary NO GROWTH AFTER 24 HOURS Microbiology 03/28/25 22:45 Urine,Clean Catch Urine Culture - Preliminary Constitutional: Present mild distress Head: Present normocephalic and atraumatic ENT: Present normal exam, normal oropharynx and mucous membranes moist Neck: Present normal inspection and full ROM Respiratory: Present diminished air movement, normal respiratory effort and able to speak in complete sentences; Absent prolonged expiratory phase, respiratory distress or wheezes Cardiac: Present S1/S2, Tachycardia and radial pulses present GI: Present soft and distention; Absent tenderness or guarding Rectal (female): Present deferred (female): Present deferred Skin: Present intact; Absent cyanosis or jaundice Neuro: Present alert, awake and oriented x 3 Extremities: Present normal inspection and edema; Absent clubbing or cyanosis Psychiatric: Present normal affect and cooperative Assessment and Plan *Assessment and plan (1) Pleural effusion, bilateral: Status: Acute Category: Medical Code(s): J90 - Pleural effusion, not elsewhere classified Plan Ms. Davis is a 74-year-old female never smoker, no prior respiratory complaints, not using any oxygen supplementation or inhaler therapy at with history of heart failure reduced ejection fraction renal dysfunction, previously on dialysis, recently transition off dialysis, type 2 diabetes mellitus hypothyroidism presented to ER with worsening respiratory distress and progressively worsening bilateral lower extremity pulmonary edema and pulmonary was called for further evaluation and management. Denies any subjective fevers or chills but denies any worsening productive phlegm/sputum discoloration Chest x-ray upon admission no dense consolidative/airspace changes noted. Left pleural effusion noted. Increased vascular congestion. CT abdomen showed bilateral pleural effusions small right and moderate left. Blood gas upon admission did not show any evidence of hypoxic/hypercarbic respiratory failure Afebrile. Hemodynamically stable. Mild neutrophilic predominant leukocytosis. Currently receiving nebulization therapies with diuretics and antibiotics including Zosyn. On initial examination does not appear to be in any respiratory distress. No wheezing noted. Decreased breath sounds lower lung [place]. Etiology of this p atient's bilateral pleural effusions likely from volume overload. Interval update No acute respiratory events overnight. Continue to remain on room air. Improving respiratory distress. Follow-up chest x-ray, improving effusions. Plan: No need for antibiotics from pulmonary standpoint DuoNebs 4 times daily as needed Monitor clinically to determine the need for thoracentesis. # Thank you for involving pulmonary in this patient care. Will continue to follow.
--- NOTE | 2025-03-30 09:15 | XR_ITS ---
FINAL REPORT CLINICAL HISTORY: Effusions COMPARISON: 03/28/2025 FINDINGS: SINGLE VIEW CHEST The heart is normal in size. The mediastinum is unremarkable. There is dense left lower lobe consolidation. Linear opacity at the bases consistent with atelectasis. There is no pneumothorax. IMPRESSION: Findings probably due to left lower lobe pneumonia Reviewed, Interpreted and Dictated by Richy Reddy MD Transcribed by Shira Panchal Authenticated and [facility]
[2025-03-30] MEDS: 0.9 % SODIUM CHLORIDE 250 ML 25 ML IV (09:46)
[2025-03-30 10:14] LABS: POC Glucose,Bedside 150 gm/dL (70-110)
--- NOTE | 2025-03-30 10:27 | EXP.CARD.PN ---
Subjective Subjective Date: 03/30/25 Time: 10:00 Interval history: Hgb down to 6.9 overnight, getting blood transfusion this morning. I/O cumulative +325 since admission despite 4-fold increase of diuretics from her home dose. Cr up from 0.6, 1.8, 2.1 Pt reports still fatigued/weak, no real change since admission. Exam Data for Last 24 hours Vital signs and Labs for Last 24 Hours: Temp Pulse Resp BP Pulse Ox O2 Del Method 98.2 F 49 L 20 121/46 L 95 Room Air 03/30/25 10:10 03/30/25 10:10 03/30/25 10:10 03/30/25 10:10 03/30/25 10:10 03/30/25 10:09 Laboratory Results - last 24 hr 03/29/25 10:48: POC Glucose 173 H 03/29/25 11:57: Lactate 1.3 03/29/25 17:29: POC Glucose 159 H 03/30/25 05:23: WBC 8.8, RBC 2.47 L, Hgb 6.9 L, Hct 21.8 L, MCV 88.3, MCH 27.9, MCHC 31.7 L, RDW 18.3 H, Plt Count 257, MPV 9.6, Neut % (Auto) 51.5, Lymph % (Auto) 37.5, [place] % (Auto) 6.8, Eos % (Auto) 3.4, Baso % (Auto) 0.5, Neut # (Auto) 4.5, Lymph # (Auto) 3.3, [place] # (Auto) 0.6, Eos # (Auto) 0.3, Baso # (Auto) 0.0, Sodium 136, Potassium 4.4, Chloride 110 H, Carbon Dioxide 20 L, Anion Gap 10.4, BUN 41 H, Creatinine 2.10 H, Estimated Creat Clear 32, Estimated GFR 23 L, Est GFR ( Amer) 28 L, Glucose 114 H, Calcium 7.6 L, Magnesium 2.0, Total Bilirubin 0.3, AST 15, ALT 8 L, Alkaline Phosphatase 83, Total Protein 4.8 L, Albumin 2.3 L D, Globulin 2.5, Albumin/Globulin Ratio 0.9 L 03/30/25 06:24: POC Glucose 127 H 03/30/25 06:53: Blood Type A Positive, Antibody Screen Negative, Crossmatch (AHG) See Detail 03/30/25 10:06: POC Glucose 150 H I & O for Last 24 hours: Intake & Output 03/27/25 03/28/25 03/29/25 03/30/25 23:59 23:59 23:59 23:59 Intake Total 50 / 50 870 / 1050 470 / 470 Output Total 700 / 700 325 / 325 Balance 50 / 50 170 / 350 145 / 145 Weight 200 lb 190 lb 9 oz 194 lb 1.6 oz Microbiology Reports for the Last 24 Hours: Microbiology 03/28/25 22:45 Urine,Clean Catch Urine Culture - Preliminary 03/29/25 05:01 Blood Blood Culture - Preliminary NO GROWTH AFTER 24 HOURS 03/29/25 05:01 Blood Blood Culture - Preliminary NO GROWTH AFTER 24 HOURS Constitutional Constitutional: no acute distress and cooperative *Routine HEENT Exam Eye: Present PERRL *Routine Respiratory Exam Respiratory: Present CTA bilaterally; Absent accessory muscle use, wheezes or crackles *Routine Cardiovascular Exam Cardiovascular: Present RRR, Normal S1 and Normal S2; Absent murmur, gallop or rubs *Routine Abdominal Exam Abdominal: Present soft; Absent tenderness *Routine Extremities Exam Extremities: Present edema (1-2+ pitting edema knee high bilaterally, subjectively mild improvement from day of admission) and pulses intact; Absent cyanosis *Routine Skin Exam Skin: Present intact; Absent erythema or wounds *Routine Neurological Exam Neurological: Present alert and oriented X3 Routine Psychiatric Exam Psychiatric: Present cooperative Progress Note: A&P Assessment and plan (1) Pleural effusion, bilateral: Status: Acute (2) Cardiorenal syndrome: Status: Acute (3) ESRD (end stage renal disease): Status: Acute (4) DM type 2 causing vascular disease: Status: Chronic (5) Peripheral arterial occlusive disease: Status: Chronic (6) Anemia in chronic kidney disease (CKD): Status: Acute Assessment and Plan Assessment and Plan for All Diagnoses:: Acute on Chronic Cardiorenal Syndrome Type 4 - known severe CKD-IV/ESRD, recent dialysis port removed, details unclear - pt historically with only mild age related changes on ECHO - mild biatrial dilation and mild MR/TR - ProBNP 650 - severe pitting edema, knee high bilaterally - small pleural effusions - severe GANT - Plan: GDMT as tolerated (No ARB/ARNI due to recent ESRD. No SGLT-2 due to UTI. Consider Aldactone vs Karendia pending ECHO results. Repeat 2D ECHO. Diurese cautiously. She received Lasix 40mg x1, now on Bumex 1mg BID. Trend strict I/O. Daily BMP. 03/30: ECHO pending, I/O shows +325, Cr worsening daily, consider increasing diuretics. Mild MR/TR and Biatrial Dilation - Details as above - Repeat 2D ECHO pending Abnl Stress test - Myoview 12/2024, no ischemia noted, borderline TID at 1.2 - known vasculopathy with decades of poorly controlled DM - likely has CAD but denies anginal symptoms and normal EF, normal Troponin. No indication for procedural intervention at this time as contrast dye would carry significant risk for her kidneys - cont ASA, add statin and BB PAD - extensive BLE dz w/non-healing wounds - has seen vascular surgery with intervention elsewhere, details unclear - cont ASA, Lovenox, resume statin, add wound care Diabetic Nephropathy with CKD-IV/ESRD - Cr historically 2-3, recently required dialysis, port removed, details unclear - here with Cr 0.6 then 1.8 - possibly dilutional initially - 3+ proteinuria - cautious diuresis, dose adjust meds, daily BMP 03/30: worsening up to 2.1 DM - last A1C 9.5 - glucose control per primary service Htn - unknown baseline - consistently 150-170 here - cont Aldactone, diuresis, add Toprol, add Hydralazine UTI - urine pos for protein, blood, luekocytes, and nytrates - WBC nml - afebrile - Ab per primary service 03/30: Pt not improving. Cr worsening. Further plans pending formal ECHO read.
--- NOTE | 2025-03-30 12:20 | XR_ITS ---
FINAL REPORT CLINICAL HISTORY: right heel DFU FINDINGS: RIGHT FOOT Three views were obtained. There is no fracture or dislocation. The joint spaces appear normal. There is hammertoe deformity of the 1st through 5th digits. Prominent soft tissue edema over the dorsum of the foot measures 2.4 cm. There is no evidence of bony erosion or periosteal reaction. IMPRESSION: Soft tissue edema without acute osseous abnormality. Reviewed, Interpreted and Dictated by Richy Reddy MD Transcribed by Shira Panchal Authenticated and [facility]
--- NOTE | 2025-03-30 12:20 | XR_ITS ---
FINAL REPORT CLINICAL HISTORY: left heel DFU FINDINGS: LEFT FOOT Three views were obtained. There is no fracture or dislocation. The joint spaces appear normal. There is hammertoe deformity of the 1st through 5th digits. Prominent soft tissue edema over the dorsum of the foot measures 2.2 cm. There is no evidence of bony erosion or periosteal reaction. IMPRESSION: Soft tissue edema without acute osseous abnormality. Reviewed, Interpreted and Dictated by Richy Reddy MD Transcribed by Shira Panchal Authenticated and [facility]
--- NOTE | 2025-03-30 12:28 | EXP.POD.CONS ---
History of Present Illness *Admission Date: 03/29/25 *History of present illness: Michelle Davis is a 74-year-old female with a medical history significant for HFpEF on room air, former renal failure requiring temporary dialysis, type 2 diabetes, PAD, diabetic foot ulcers, CLL, hypothyroidism, GERD who presents from home with shortness of breath and progressive bilateral pitting edema. She states lower extremity edema began about 1 to 2 weeks ago, and shortness of breath began a few days ago. Patient had previously been on temporary dialysis at [facility] due to acute renal failure, has and dialysis dependent for several months. Endorses intermittent clear productive phlegm but denies chest pain, fever/chills, abdominal pain. Does not take any diuretics at this time. Workup in the ED significant for VBG pH 7.33, pCO2 86.7, bicarb 41, BNP 625, UA grossly abnormal, CT abdomen revealing moderate left pleural effusion and small right pleural effusion. CXR confirms this. On room air. Given IV Lasix 40 mg, DuoNebs, IV magnesium in the ED. Though VBG pH is compensated, patient has significant hypercapnia and pH low normal concerning for hypoventilation from pleural effusion. Given these findings, ED provider and I discussed case and I decided to admit patient for suspected HFpEF exacerbation, symptomatic pleural effusion. 03/30/25: Podiatry Consult 74yr. female podiatry patient of ours we last saw in office 01/10/25 for her b/l heel DFU's. Patient was admitted to [facility] on 03/29/25 for her suspected HFpEF exacerbation, symptomatic pleural effusion. [facility] Disclaimer: The information contained in this section may have been updated after the patient was seen, as this information can be updated by other users. Medical History (Updated 03/30/25 @ 10:32 by FADI Gomes) Pleural effusion, bilateral Atypical angina Fatigue Abnormal findings on diagnostic imaging of heart and coronary circulation Other forms of dyspnea Edema Dialysis patient SOB (shortness of breath) Essential hypertension CLL (chronic lymphocytic leukemia) CKD (chronic kidney disease) Type 2 diabetes mellitus with diabetic polyneuropathy Hypertension (HFpEF) heart failure with preserved ejection fraction Peripheral arterial occlusive disease Hyperlipidemia CKD (chronic kidney disease) stage 4, GFR 15-29 ml/min Elevated BUN Callus of foot Hypervolemia Leukocytosis UTI (urinary tract infection) Urinary tract infectious disease Sepsis without septic shock Noncompliance Acute kidney injury superimposed on chronic kidney disease Diabetic foot ulcer Sinusitis Hyperkalemia Urinary tract infection Hyperkalemia High anion gap metabolic acidosis Renal failure Falls frequently Viral URI with cough Skin infection, bacterial Avulsed toenail Ulcer of right great toe due to diabetes mellitus Frequent falls Statin intolerance Hyperlipidemia Bradycardia Syncope and collapse Syncope Falls Neuropathy Osteopenia Onychodystrophy Pain of toe of right foot Fracture of second toe, right, closed Edema of toe Acquired hammer toe Closed rib fracture Fall Hyperglycemia due to type 2 diabetes mellitus Bacteremia due to Klebsiella pneumoniae UTI due to Klebsiella species Gram-negative bacteremia DKA (diabetic ketoacidoses) Hyperglycemia due to type 2 diabetes mellitus CLL (chronic lymphocytic leukemia) History of hypertension Diabetes mellitus Surgical History H/O lithotripsy History of cholecystectomy Family History Other Cancer Congestive heart failure (CHF) Heart disease Lymphoma Social History Smoking Status: Never smoker alcohol intake: never substance use type: denies use current occupational status: retired Travel in the last 8 weeks?: None household members: none housing: house caffeine: Yes Have you lived/traveled outside [place] in past 30 days?: No Contact w/someone who lives/traveled outside [place] past 30 days?: No Exposure to someone with infectious disease in past 14 days?: No Do you have a fever (greater than 100.4 F or 38 C)?: No Have you tested positive for COVID-19?: No Exposed to someone with COVID-19 in past 14 days?: No Do you have a sore throat?: No Do you have a cough?: No Do you have any weakness?: No Are you experiencing any nausea/vomitting?: No Do you have any diarrhea?: No Are you experiencing any unusual bleeding?: No Do you have any muscle aches/pain?: No Do you have any abdominal pain?: No Are you experiencing loss of taste or smell?: No Review of Systems Constitutional Constitutional: Reports weakness Eyes Eyes: Denies loss of vision ENT Ears, Nose, Mouth, and Throat: Denies vertigo *Cardiovascular Cardiovascular: Denies syncope *Neurologic Neurologic: Denies loss of vision, Denies syncope, Denies vertigo and Reports weakness Meds Home Medications and Allergies Home Medications ?Medication ?Instructions ?Recorded ?Confirmed ?Type nifedipine 60 mg tablet,extended 60 mg PO DAILY 12/29/24 03/29/25 History release mirtazapine 15 mg tablet (Remeron) 15 mg PO HS 01/26/25 03/29/25 History clopidogrel 75 mg tablet 75 mg PO DAILY #90 tabs 02/11/25 03/29/25 Rx isosorbide mononitrate 60 mg 60 mg PO DAILY #90 tabs 02/11/25 03/29/25 Rx tablet,extended release 24 hr pen needle, diabetic 31 gauge x #100 ea 02/11/25 03/29/25 Rx 5/16 (Ultra-Fine Pen Needle) valsartan 160 mg tablet 160 mg PO DAILY #90 tabs 02/11/25 03/29/25 Rx gabapentin 300 mg capsule 300 mg PO HS #90 caps 03/17/25 03/29/25 Rx levothyroxine 88 mcg tablet 88 mcg PO DAILY #90 tabs 03/17/25 03/29/25 Rx atorvastatin 40 mg tablet 40 mg PO HS 03/29/25 03/29/25 History bumetanide 1 mg tablet 1 mg PO DAILY 03/29/25 03/29/25 History insulin glargine 100 unit/mL (3 10 unit SQ DAILY Diabetes 03/29/25 03/29/25 History mL) subcutaneous pen New Prescriptions to Start Prescriptions: Allergies Allergy/AdvReac Type Severity Reaction Status Date / Time moxifloxacin Allergy Severe S-ANAPHYLAX Verified 01/26/25 10:32 IS Sulfa (Sulfonamide Allergy Mild NA-NAUSEA/V Verified 01/26/25 10:32 Antibiotics) OMITING atorvastatin AdvReac Severe Other Verified 01/26/25 10:32 Exam (Inpt) Vital signs and Labs for Last 24 Hours: Temp Pulse Resp BP Pulse Ox O2 Del Method 98.4 F 52 L 20 137/48 L 96 Room Air 03/30/25 10:55 03/30/25 10:55 03/30/25 10:55 03/30/25 10:55 03/30/25 10:55 03/30/25 12:12 Laboratory Results - last 24 hr 03/29/25 17:29: POC Glucose 159 H 03/30/25 05:23: WBC 8.8, RBC 2.47 L, Hgb 6.9 L, Hct 21.8 L, MCV 88.3, MCH 27.9, MCHC 31.7 L, RDW 18.3 H, Plt Count 257, MPV 9.6, Neut % (Auto) 51.5, Lymph % (Auto) 37.5, Rosebud % (Auto) 6.8, Eos % (Auto) 3.4, Baso % (Auto) 0.5, Neut # (Auto) 4.5, Lymph # (Auto) 3.3, Rosebud # (Auto) 0.6, Eos # (Auto) 0.3, Baso # (Auto) 0.0, Sodium 136, Potassium 4.4, Chloride 110 H, Carbon Dioxide 20 L, Anion Gap 10.4, BUN 41 H, Creatinine 2.10 H, Estimated Creat Clear 32, Estimated GFR 23 L, Est GFR ( Amer) 28 L, Glucose 114 H, Calcium 7.6 L, Magnesium 2.0, Total Bilirubin 0.3, AST 15, ALT 8 L, Alkaline Phosphatase 83, Total Protein 4.8 L, Albumin 2.3 L D, Globulin 2.5, Albumin/Globulin Ratio 0.9 L 03/30/25 06:24: POC Glucose 127 H 03/30/25 06:53: Blood Type A Positive, Antibody Screen Negative, Crossmatch ([facility]) See Detail 03/30/25 10:06: POC Glucose 150 H I & O for Labs for Last 24 Hours: Intake & Output 03/27/25 03/28/25 03/29/25 03/30/25 23:59 23:59 23:59 23:59 Intake Total 50 / 50 870 / 870 470 / 470 Output Total 700 / 700 575 / 575 Balance 50 / 50 170 / 170 -105 / -105 Weight 200 lb 190 lb 9 oz 194 lb 1.6 oz Microbiology Reports for the Last 24 Hours: Microbiology 03/28/25 22:45 Urine,Clean Catch Urine Culture - Preliminary 03/29/25 05:01 Blood Blood Culture - Preliminary NO GROWTH AFTER 24 HOURS 03/29/25 05:01 Blood Blood Culture - Preliminary NO GROWTH AFTER 24 HOURS Constitutional: Present no acute distress and cooperative Head: Present normocephalic Eye: Present as per HPI Neck: Present trachea midline Respiratory: Present normal respiratory effort and able to speak in complete sentences Cardiac: Present pedal pulses present (B/L DP faintly palpable ); Absent posterior tibial pulses present Comments:: deferred Rectal (female): Present deferred (female): Present deferred Extremities: Present tenderness and edema Comment:: B/L heel tenderness noted, -Right Heel wound culture obtained -Right Heel debrided with #15 blade, skin, macerated tissue debrided, yellowish/brown eschar tissue, post debridement measurement 3.3 x 2.7x 0.4 cm (slight malodor noted) scant bleeding noted. -Left heel lightly debrided with 15' blade sharply, excisionally through skin into the subcu layer. Fibrotic tissue was removed, post debridement measurement 1.2 x 2.1 x 0.1 cm, scant bleeding noted. -Proximal ulcer small, no drainage, 0.3x0.3x0cm Skin: Present warm and wounds Comment:: B/L foot DFU R>L. Neuro: Present oriented x 3 Comment:: Patient's feet and legs have a slight spontaneous jerking tremor while holding up legs for foot debridement. Patient denies RLS. Ankle: bilateral: swelling (1+ edema, patient states improvement ) and bilateral: wound (B/L heel wounds R>L ) Feet/Toes: bilateral: hammer toe and bilateral: wound (B/L heel ulcers R> L ) Inspection: Present foot deformity deformity: Present hammer toes, infection and ulceration Pulses: L dorsalis pedis pulse: diminished (faintly palpable ), R dorsalis pedis pulse: diminished (faintly palpable ), L posterior tibial pulse: diminished (Absent ) and R posterior tibial pulse: diminished (Absent ) CFT: dim: CFT Results Labs 03/30/25 05:23 03/30/25 05:23 Labs: Abnormal lab results 03/29/25 03/30/25 03/30/25 Range/Units 17:29 05:23 06:24 RBC 2.47 L (4.20-5.40) M/mm3 Hgb 6.9 L (12.2-16.2) g/dL Hct 21.8 L (37.0-47.0) % MCHC 31.7 L (31.8-35.4) g/dL RDW 18.3 H (11.5-17.5) % Chloride 110 H (98-107) mmol/L Carbon Dioxide 20 L (22.0-30.0) mmol/L BUN 41 H (7-17) mg/dl Creatinine 2.10 H (0.52-1.04) mg/dl Estimated GFR 23 L (>60) ml/min Est GFR ( Amer) 28 L (>60) ML/MIN Glucose 114 H (74-100) mg/dl POC Glucose 159 H 127 H (70-110) gm/dL Calcium 7.6 L (8.4-10.2) mg/dl ALT 8 L (12-78) U/L Total Protein 4.8 L (6.3-8.2) g/dl Albumin 2.3 L D (3.5-5.0) g/dl Albumin/Globulin Ratio 0.9 L (1.1-1.8) Crossmatch ([facility]) 03/30/25 03/30/25 Range/Units 06:53 10:06 RBC (4.20-5.40) M/mm3 Hgb (12.2-16.2) g/dL Hct (37.0-47.0) % MCHC (31.8-35.4) g/dL RDW (11.5-17.5) % Chloride (98-107) mmol/L Carbon Dioxide (22.0-30.0) mmol/L BUN (7-17) mg/dl Creatinine (0.52-1.04) mg/dl Estimated GFR (>60) ml/min Est GFR ( Amer) (>60) ML/MIN Glucose (74-100) mg/dl POC Glucose 150 H (70-110) gm/dL Calcium (8.4-10.2) mg/dl ALT (12-78) U/L Total Protein (6.3-8.2) g/dl Albumin (3.5-5.0) g/dl Albumin/Globulin Ratio (1.1-1.8) Crossmatch ([facility]) See Detail H & H 03/28/25 03/29/25 03/30/25 Range/Units 21:15 05:01 05:23 Hgb 12.2 7.0 L 6.9 L (12.2-16.2) g/dL Hct 40.4 23.3 L 21.8 L (37.0-47.0) % All other labs normal. Assessment and Plan *Assessment and plan (1) 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 Qualifiers: Diabetes mellitus terminal press operator insulin use: with group home use Qualified Code(s): E11.42 - Type 2 diabetes mellitus with diabetic polyneuropathy; Z79.4 - nursing home (current) use of insulin Category: Medical Code(s): E11.42 - Type 2 diabetes mellitus with diabetic polyneuropathy (2) Diabetes: Status: Acute Qualifiers: Diabetes mellitus complication detail: with polyneuropathy Diabetes mellitus complication status: with neurologic complications Diabetes mellitus group home insulin use: with terminal press operator use Diabetes mellitus type: type 2 Qualified Code(s): E11.42 - Type 2 diabetes mellitus with diabetic polyneuropathy; Z79.4 - nursing home (current) use of insulin Category: Medical Code(s): E11.9 - Type 2 diabetes mellitus without complications (3) Dystrophia unguium: Status: Acute Category: Medical Code(s): L60.3 - Nail dystrophy (4) Hammertoe: Status: Acute Qualifiers: Laterality: bilateral Qualified Code(s): M20.41 - Other hammer toe(s) (acquired), right foot; M20.42 - Other hammer toe(s) (acquired), left foot Category: Medical Code(s): M20.40 - Other hammer toe(s) (acquired), unspecified foot (5) Diabetic ulcer of left heel associated with diabetes mellitus due to underlying condition, limited to breakdown of skin: Status: Acute Category: Medical Code(s): E08.621 - Diabetes mellitus due to underlying condition with foot ulcer; L97.421 - Non-pressure chronic ulcer of left heel and midfoot limited to breakdown of skin (6) Diabetic ulcer of right heel associated with diabetes mellitus due to underlying condition, limited to breakdown of skin: Status: Acute Category: Medical Code(s): E08.621 - Diabetes mellitus due to underlying condition with foot ulcer; L97.411 - Non-pressure chronic ulcer of right heel and midfoot limited to breakdown of skin (7) Keratosis: Status: Acute Category: Medical Code(s): L57.0 - Actinic keratosis (8) Acute kidney injury: Status: Resolved Category: Medical Code(s): N17.9 - Acute kidney failure, unspecified Plan 03/30/25: B/L heel Diabetic Foot ulcers: -Patient resting in bed, getting a blood transfusion. -Wound culture obtained from her Right heel -On her Right heel there was no active drainage but had a malodor and wet with fibrotic mixed yellow/brownish tissue with some depth, does not probe to bone. -Left Heel wound is superficial no depth, no drainage and no malodor. -Wounds cleaned with wound overhead cleaner maintainer, then debrided non-viable tissue. See above for debridement measurements. -Daily dressing changes needed. Dressings to Right heel is Betadine soaked gauze, kerlix, and greg wrap. -When she gets discharged we can go back to using on the Right heel, RX Santyl, gauze, kerlix and greg wrap -Left heel dressed with site painted with betadine, then covered with a Darrow Allevyn Life polymem foam pad. -Keep heels offloaded on pillow while in bed or in chair. -Ok to WB in post op shoes, walker. -Patient states she is no longer getting Dialysis her kidney function has improved. -Plan to get new B/L foot 3V xrays to check for any new changes or underlying bone infections. -Patient may continue to have a diet as currently taking. -Continue IV antibiotics as ordered per Hospitalist -All orders per Dr. Jerez
--- NOTE | 2025-03-30 13:47 | PC.NURSE ---
Alert and oriented, Up to chair at beginning of shift, Pivots to the bed with 1 assist, Fluid restriction, Purewick in place, Bilateral heel ulcers, foam dressing, fsbg achs, Pitting edema noted to bilateral lower extremities, Room air, Call light in reach.
[2025-03-30 15:35] LABS: POC Glucose,Bedside 196 gm/dL (70-110)
--- NOTE | 2025-03-30 15:54 | EXP.ACUTE.PN ---
Subjective *Date: 03/30/25 *Time: 08:14 Interval history: Stable on room air. Afebrile. Appears to be diuresing well from her report however recorded urine output does not quite match. Legs do look better on exam today. No nausea or vomiting. Tolerating p.o. intake. Medical Exam Vital signs and Labs for Last 24 Hours: Vital Signs Temp Pulse Pulse Resp BP BP Pulse Ox 03/30/25 14:06 03/30/25 12:25 98.2 F 47 L 19 133/58 L 97 03/30/25 12:12 03/30/25 11:55 98.2 F 53 L 19 143/63 H 97 03/30/25 11:55 98.2 F 53 L 19 143/63 H 97 03/30/25 11:54 60 03/30/25 10:55 98.4 F 52 L 20 137/48 L 96 03/30/25 10:35 98.2 F 56 L 20 131/84 96 03/30/25 10:25 98.2 F 56 L 20 148/56 H 95 03/30/25 10:10 98.2 F 49 L 20 121/46 L 95 03/30/25 10:09 03/30/25 10:05 98.2 F 49 L 20 125/56 L 96 03/30/25 10:00 98.2 F 50 L 20 135/53 L 96 03/30/25 09:55 98.4 F 53 L 20 126/55 L 96 03/30/25 09:45 98.2 F 48 L 20 118/48 L 96 03/30/25 09:00 03/30/25 08:00 50 L 03/30/25 08:00 03/30/25 08:00 98.3 F 50 L 18 112/55 L 98 03/30/25 06:53 03/30/25 05:00 03/30/25 04:00 97.9 F 55 L 16 126/46 L 99 03/30/25 04:00 50 L 03/30/25 03:00 03/30/25 01:00 03/30/25 00:00 97.7 F 55 L 16 143/58 H 98 03/30/25 00:00 50 L 03/29/25 22:55 03/29/25 21:00 03/29/25 20:00 60 03/29/25 20:00 98.1 F 57 L 16 136/64 97 03/29/25 20:00 03/29/25 18:35 03/29/25 16:00 60 03/29/25 16:00 98.7 F 57 L 18 134/64 96 O2 Del Method 03/30/25 14:06 Room Air 03/30/25 12:25 03/30/25 12:12 Room Air 03/30/25 11:55 03/30/25 11:55 03/30/25 11:54 03/30/25 10:55 03/30/25 10:35 03/30/25 10:25 03/30/25 10:10 03/30/25 10:09 Room Air 03/30/25 10:05 03/30/25 10:00 03/30/25 09:55 03/30/25 09:45 03/30/25 09:00 Room Air 03/30/25 08:00 03/30/25 08:00 Room Air 03/30/25 08:00 Room Air 03/30/25 06:53 Room Air 03/30/25 05:00 Room Air 03/30/25 04:00 Room Air 03/30/25 04:00 03/30/25 03:00 Room Air 03/30/25 01:00 Room Air 03/30/25 00:00 Room Air 03/30/25 00:00 03/29/25 22:55 Room Air 03/29/25 21:00 Room Air 03/29/25 20:00 03/29/25 20:00 Room Air 03/29/25 20:00 Room Air 03/29/25 18:35 Room Air 03/29/25 16:00 03/29/25 16:00 Room Air Intake and Output 03/29/25 03/30/25 03/30/25 23:59 07:59 15:59 Intake Total 100 / 1050 280 / 930 650 / 930 Output Total 0 / 700 325 / 575 250 / 575 Balance 100 / 350 -45 / 355 400 / 355 Intake: Intake, Oral Amount 180 / 780 600 / 780 Intake, Total IV Amount 100 / 150 100 / 150 50 / 150 Piperacillin/Tazo 2.25 gm In 0. 100 / 150 100 / 150 50 / 150 9 % Sodium Chloride 50 ml @ 100 mls/hr IV Q6H [facility] Rx#:[id number] Intake (Blood Product) Amt 0 / 0 Red Blood Cells Unit 0 / 0 [id number] Output: Output, Urine Amount 0 / 700 325 / 575 250 / 575 Other: Number of Voids 0 Number of Unmeasured Voids 1 0 Weight 88.042 kg Patient Weight 03/30/25 23:59 Weight 88.042 kg Laboratory Results - last 24 hr 03/29/25 17:29: POC Glucose 159 H 03/29/25 20:40: POC Glucose 196 H 03/30/25 05:23: WBC 8.8, RBC 2.47 L, Hgb 6.9 L, Hct 21.8 L, MCV 88.3, MCH 27.9, MCHC 31.7 L, RDW 18.3 H, Plt Count 257, MPV 9.6, Neut % (Auto) 51.5, Lymph % (Auto) 37.5, [place] % (Auto) 6.8, Eos % (Auto) 3.4, Baso % (Auto) 0.5, Neut # (Auto) 4.5, Lymph # (Auto) 3.3, [place] # (Auto) 0.6, Eos # (Auto) 0.3, Baso # (Auto) 0.0, Sodium 136, Potassium 4.4, Chloride 110 H, Carbon Dioxide 20 L, Anion Gap 10.4, BUN 41 H, Creatinine 2.10 H, Estimated Creat Clear 32, Estimated GFR 23 L, Est GFR ( Amer) 28 L, Glucose 114 H, Calcium 7.6 L, Magnesium 2.0, Total Bilirubin 0.3, AST 15, ALT 8 L, Alkaline Phosphatase 83, Total Protein 4.8 L, Albumin 2.3 L D, Globulin 2.5, Albumin/Globulin Ratio 0.9 L 03/30/25 06:24: POC Glucose 127 H 03/30/25 06:53: Blood Type A Positive, Antibody Screen Negative, Crossmatch (AHG) See Detail 03/30/25 10:06: POC Glucose 150 H I & O for Labs for Last 24 Hours: Intake & Output 03/27/25 03/28/25 03/29/25 03/30/25 23:59 23:59 23:59 23:59 Intake Total 50 / 50 870 / 1050 930 / 930 Output Total 700 / 700 575 / 575 Balance 170 / 350 355 / 355 Weight 90.718 kg 86.438 kg 88.042 kg Microbiology Reports for the Last 24 Hours: Microbiology 03/28/25 22:45 Urine,Clean Catch Urine Culture - Preliminary 03/29/25 05:01 Blood Blood Culture - Preliminary NO GROWTH AFTER 24 HOURS 03/29/25 05:01 Blood Blood Culture - Preliminary NO GROWTH AFTER 24 HOURS Constitutional: Present no acute distress, obese, chronically ill appearing and cooperative Head: Present atraumatic and normocephalic ENT: Present normal exam Respiratory: Present normal respiratory effort; Absent rhonchi, wheezes or crackles Cardiac: Present Reg Rate and Rhythm GI: Present soft and normal bowel sounds; Absent distention or tenderness Extremities: Present normal inspection, full ROM and edema (3+ to thighs, very minimal improvement from yesterday.) Skin: Present intact; Absent erythema Comment:: Stage II wound left heel approximately nickel sized, unstageable wound right heel size of a silver dollar. Both present on admission Neuro: Present Grossly Intact, alert, awake, oriented x 3 and moves all extremities Assessment and Plan *Assessment and plan (1) CHF (congestive heart failure): Status: Acute Category: Medical Code(s): I50.9 - Heart failure, unspecified (2) Anemia in chronic kidney disease (CKD): Status: Acute Category: Medical Code(s): N18.9 - Chronic kidney disease, unspecified; D63.1 - Anemia in chronic kidney disease (3) Pleural effusion, bilateral: Status: Acute Category: Medical Code(s): J90 - Pleural effusion, not elsewhere classified (4) Cardiorenal syndrome: Status: Acute Category: Medical Code(s): I13.10 - Hypertensive heart and chronic kidney disease without heart failure, with stage 1 through stage 4 chronic kidney disease, or unspecified chronic kidney disease (5) Fluid overload: Status: Acute Category: Medical Code(s): E87.70 - Fluid overload, unspecified (6) Generalized weakness: Status: Acute Category: Medical Code(s): R53.1 - Weakness (7) Diabetic ulcer of right heel associated with diabetes mellitus due to underlying condition, limited to breakdown of skin: Status: Acute Category: Medical Code(s): E08.621 - Diabetes mellitus due to underlying condition with foot ulcer; L97.411 - Non-pressure chronic ulcer of right heel and midfoot limited to breakdown of skin (8) Diabetic ulcer of left heel associated with diabetes mellitus due to underlying condition, limited to breakdown of skin: Status: Acute Category: Medical Code(s): E08.621 - Diabetes mellitus due to underlying condition with foot ulcer; L97.421 - Non-pressure chronic ulcer of left heel and midfoot limited to breakdown of skin (9) (HFpEF) heart failure with preserved ejection fraction: Status: Acute Qualifiers: Heart failure chronicity: acute on chronic Qualified Code(s): I50.33 - Acute on chronic diastolic (congestive) heart failure Category: Medical Code(s): I50.30 - Unspecified diastolic (congestive) heart failure (10) 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 Qualifiers: Diabetes mellitus moth exterminator insulin use: with moth exterminator use Qualified Code(s): E11.42 - Type 2 diabetes mellitus with diabetic polyneuropathy; Z79.4 - care home (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 She states lower extremity edema began about 1 to 2 weeks ago, and shortness of breath began a few days ago. Patient had previously been on temporary dialysis at [facility] due to acute renal failure, has and dialysis dependent for several months. Endorses intermittent clear productive phlegm but denies chest pain, fever/chills, abdominal pain. Does not take any diuretics at this time. Workup in the ED significant for VBG pH 7.33, pCO2 86.7, bicarb 41, BNP 625, UA grossly abnormal, CT abdomen revealing moderate left pleural effusion and small right pleural effusion. CXR confirms this. On room air. Given IV Lasix 40 mg, DuoNebs, IV magnesium in the ED. Though VBG pH is compensated, patient has significant hypercapnia and pH low normal concerning for hypoventilation from pleural effusion. Given these findings, ED provider and I discussed case and I decided to admit patient for suspected HFpEF exacerbation, symptomatic pleural effusion. #HFpEF exacerbation #Bilateral pleural effusions #Hypercapnia ? Presented with progressive lower extremity edema, shortness of breath. ? Continue aggressive diuresis. Currently on Bumex 2 mg IV twice daily and 25 mg daily. - Cardiology and pulmonology consulted to assist with care. No plan for thoracentesis today. Repeat chest x-ray obtained showing stable if not slightly smaller pleural effusion. - DuoNebs every 6 hours scheduled. ? Echo showing normal BiV function. Small pericardial effusion less than 0.3 cm. No evidence of tamponade or indication of need for drainage. ? Discussed case with cardiology, recommend continuing diuresis. Will hold ARB/ARNI and SGLT2 due to kidney dysfunction and recurrent UTIs. -Repeat CBC, CMP, magnesium ordered for the morning - Potassium 4.4, creatinine 2.1. Up from 1.8. BUN 41. Magnesium 2.0. From review of patient's chart, the creatinine 0.6 does not appear in line with her known history and is concerning for an error with the lab. Baseline more consistent with 1.8. Kidney function not drastically different from her baseline at this time. Is making urine. Electrolytes stable. #UTI ? UA grossly abnormal, urine culture pending. ? Start IV Zosyn 3.375 grams every 8 hours after blood cultures were obtained. #Type 2 diabetes ? Hemoglobin A1c 9.5% in October 2024. Repeat A1c this visit 5.3. ? LDSSI, ACHS glucose checks. #PAD #CAD ? Abnormal Lexiscan in December 2024, with known significant PAD. ? Cardiology was planning for outpatient staged LHC and peripheral revascularizations. ? Continue aspirin. Patient has had severe muscle aches with statins in the past, consider low-dose statin tomorrow. #Hypothyroidism ? Continue home levothyroxine once reconciled. Follow-up TFTs. #Hypertension ? Continue hydralazine 50 mg 3 times a day, isosorbide mononitrate 60 mg daily, metoprolol succinate 25 mg daily, and nifedipine 60 mg daily. #GERD ? Continue PPI. Decubitus wounds of heels/diabetic ulcers of heels. Present on admission. Podiatry consulted. Debridement performed today. Acute on chronic anemia from chronic disease: Hemoglobin 6.9. Transfuse with goal hemoglobin greater than 7. 1 unit today. Repeat hemoglobin level ordered for the morning. Full code DVT prophylaxis: Hold morning Lovenox for possible cardiac intervention, avoid SCDs due to severe PAD.
[2025-03-30 16:10] LABS: POC Glucose,Bedside 200 gm/dL (70-110)
[2025-03-30 16:19] LABS: Hematocrit 27.2 % (37.0-47.0)
[2025-03-30] MEDS: humaLOG 100 UNITS/ML 10ML VIAL (SSI) SUBCUT ×2 (16:35→20:38)
[2025-03-30 17:26] LABS: Hemoglobin 8.5 g/dL (12.2-16.2)
[2025-03-30 20:06] LABS: POC Glucose,Bedside 206 gm/dL (70-110)
[2025-03-30] MEDS: PRAVASTATIN 40MG TAB 40 MG PO (20:38)
[2025-03-30] MEDS: GABAPENTIN 300MG CAPSULE 300 MG PO (20:38)
[2025-03-30] MEDS: MIRTAZAPINE 15 MG TABLET PO (20:38)
[2025-03-31] VITALS (7 sets, daily range): BP systolic 124–144; BP diastolic 56–92; PULSE 50–70; RESP 16–18; TEMP 36.4–37.2; O2SAT 95–96
[2025-03-31] MEDS: PIPERACILLIN/TAZO 2.25 GM in 0.9 % SODIUM CHLORIDE 50 ML IV ×4 (01:58→18:45)
--- NOTE | 2025-03-31 04:00 | PC.NURSE ---
Patient is alert and oriented x4. She was observed to be resting upright in bed with eyes closed, respirations even and unlabored on room air, and no apparent distress throughout the majority of the night. Patient has expressed feeling quite cold this shift; a plethora of blankets was provided and her room temperature was increased to promote warmth (successful). Body temperatures within desired range. Turning/repositioning offered, patient verbalized needs/refusals (wedge and pillows utilized). Patient gets up with assistance as tolerated. Moderate swelling noted to all four extremities. Bilateral lower extremities remain elevated, and both heels are floated and dressed due to ulcerations present. Reports pain [id number] for both heels. Low sodium diet + fluid restriction of [address] (one cup, 354 mL, was provided during this shift; patient did not consume all of it while awake) Intake/output documented accordingly. A female purewick is in place for urination needs. Diminished lung sounds heard upon auscultation. Sinus bradycardia/normal sinus rhythm on telemetry. ACHS glucose checks. Scheduled medications administered per AUG. At this time, the patient is resting in bed without any further complaints. No acute changes noted thus far. Call light within reach.
[2025-03-31 05:55] LABS: POC Glucose,Bedside 109 gm/dL (70-110)
[2025-03-31 06:02] LABS: Hematocrit 25.7 % (37.0-47.0); Hemoglobin 7.9 g/dL (12.2-16.2); Immature Granulocytes % 0.6 %; Mean Corpuscular HGB Conc 30.7 g/dL (31.8-35.4); Mean Corpuscular Hemoglobin 27.3 pg (27.0-31.2); Mean Corpuscular Volume 88.9 fl (81-99); Nucleated Red Blood Cells % 0 %; Platelet Count 255 K/mm3 (142-424); Red Blood Count 2.89 M/mm3 (4.20-5.40); Red Cell Distribution Width-SD 59.0 fL; White Blood Count 10.6 K/mm3 (4.8-10.8)
[2025-03-31 06:10] LABS: Alanine Aminotransferase 8 U/L (12-78); Albumin Level 2.5 g/dl (3.5-5.0); Albumin/Globulin Ratio 1.0 (1.1-1.8); Alkaline Phosphatase 85 U/L (38-126); Anion Gap 12.7 mEq/L (5-15); Aspartate Amino Transferase 12 U/L (14-36); Bilirubin,Total 0.3 mg/dl (0.2-1.3); Blood Urea Nitrogen 48 mg/dl (7-17); Calcium 7.8 mg/dl (8.4-10.2); Carbon Dioxide 19 mmol/L (22.0-30.0); Chloride 110 mmol/L (98-107); Creatinine Clearance Estimated 27 mL/min (50-200); Creatinine,Serum 2.50 mg/dl (0.52-1.04); Estimated Glomerular Filt Rate 19 ml/min (>60); GFR (African American) 23 ML/MIN (>60); Globulin 2.6 g/dL (1.3-3.2); Glucose 94 mg/dl (74-100); Magnesium 2.0 mg/dl (1.6-2.3); Potassium 4.7 mmoL/L (3.5-5.1); Sodium 137 mmol/L (136-145); Total Protein,Serum 5.1 g/dl (6.3-8.2)
[2025-03-31] MEDS: LEVOTHYROXINE 88MCG (0.088MG) TAB 88 MCG PO (06:22)
--- NOTE | 2025-03-31 06:42 | EXP.ORTH.PN ---
Subjective *Date: 03/31/25 *Time: 12:58 Interval history: 03/31/25: Podiatry follow up Patient is resting comfortably in bed eating breakfast. She reports no pain to the left foot and minimal/improved pain to the right heel. Heel protectors not in place, will request. Ortho Exam (Inpt) Vital signs and Labs for Last 24 Hours: Temp Pulse Resp BP Pulse Ox O2 Del Method 98.9 F 56 L 16 124/56 L 95 Room Air 03/31/25 04:00 03/31/25 04:00 03/31/25 04:00 03/31/25 04:00 03/31/25 04:00 03/31/25 06:35 Laboratory Results - last 24 hr 03/29/25 20:40: POC Glucose 196 H 03/30/25 05:23: Sodium 136, Potassium 4.4, Chloride 110 H, Carbon Dioxide 20 L, Anion Gap 10.4, BUN 41 H, Creatinine 2.10 H, Estimated Creat Clear 32, Estimated GFR 23 L, Est GFR ( Amer) 28 L, Glucose 114 H, Calcium 7.6 L, Magnesium 2.0, Total Bilirubin 0.3, AST 15, ALT 8 L, Alkaline Phosphatase 83, Total Protein 4.8 L, Albumin 2.3 L D, Globulin 2.5, Albumin/Globulin Ratio 0.9 L 03/30/25 06:53: Blood Type A Positive, Antibody Screen Negative, Crossmatch (AHG) See Detail 03/30/25 10:06: POC Glucose 150 H 03/30/25 16:03: POC Glucose 200 H 03/30/25 16:10: Hgb 8.5 L D, Hct 27.2 L 03/30/25 19:58: POC Glucose 206 H 03/31/25 05:18: WBC 10.6, RBC 2.89 L, Hgb 7.9 L, Hct 25.7 L, MCV 88.9, MCH 27.3, MCHC 30.7 L, RDW 17.9 H, Plt Count 255, MPV 9.4, Neut % (Auto) 54.5, Lymph % (Auto) 34.2, [place] % (Auto) 7.1, Eos % (Auto) 3.3, Baso % (Auto) 0.3, Neut # (Auto) 5.8, Lymph # (Auto) 3.6, [place] # (Auto) 0.8, Eos # (Auto) 0.4, Baso # (Auto) 0.0, Sodium 137, Potassium 4.7, Chloride 110 H, Carbon Dioxide 19 L, Anion Gap 12.7, BUN 48 H, Creatinine 2.50 H, Estimated Creat Clear 27, Estimated GFR 19 L*, Est GFR ( Amer) 23 L, Glucose 94, Calcium 7.8 L, Magnesium 2.0, Total Bilirubin 0.3, AST 12 L, ALT 8 L, Alkaline Phosphatase 85, Total Protein 5.1 L, Albumin 2.5 L, Globulin 2.6, Albumin/Globulin Ratio 1.0 L 03/31/25 05:40: POC Glucose 109 I & O for Labs for Last 24 Hours: Intake & Output 03/28/25 03/29/25 03/30/25 03/31/25 23:59 23:59 23:59 23:59 Intake Total 50 / 50 870 / 870 1476.25 / 1476.25 80 / 80 Output Total 700 / 700 825 / 825 150 / 150 Balance 50 / 50 170 / 170 651.25 / 651.25 -70 / -70 Weight 200 lb 190 lb 9 oz 194 lb 1.6 oz 198 lb 7 oz Microbiology Reports for the Last 24 Hours: Microbiology 03/29/25 05:01 Blood Blood Culture - Preliminary NO GROWTH AFTER 48 HOURS 03/29/25 05:01 Blood Blood Culture - Preliminary NO GROWTH AFTER 48 HOURS 03/30/25 11:50 Foot,Right - Wound Gram Stain - Final 03/28/25 22:45 Urine,Clean Catch Urine Culture - Preliminary Constitutional: Present no acute distress and cooperative Head: Present normocephalic Eyes: Present as per HPI Neck: Present normal inspection Respiratory: Present normal respiratory effort and able to speak in complete sentences Cardiac: Present pedal pulses present (B/L DP faintly palpable); Absent posterior tibial pulses present Comments:: Deferred Rectal (female): Present deferred (female): Present deferred Extremities: Present tenderness, edema and other (B/L heel tenderness) Skin: Present warm and wounds Comment:: 03/31/25: R>L heel tenderness noted. -Right Heel wound culture obtained 03/30/25. -Sharp excisional full-thickness debridement with 15 blade/curette through skin into/including subcutaneous tissue (left heel), into/including deep fascia (right heel). No new purulence malodor or drainage noted. -Post debridement: Left heel full-thickness thru subq: 100% granular, 1.2 x 2.1 x 0.1 cm, scant bleeding noted. -Left Heel wound-Alleyvn foam pad -Post debridement: Right heel full-thickness thru deep fascia (no exposed calc heel bone): 55% brown eschar, 40% yellow fibrotic slough, 5% granular, 3.2 x 2.6 x 0.4cm, scant bleeding noted. -Right heel wound-Opticel silver, betadine soaked gauze, dry gauze, carlo, greg. Neuro: Present oriented x 3 and moves all extremities Ankle: bilateral: swelling (1+ edema) Feet/Toes: bilateral: hammer toe (2-5th toes), bilateral: nail abnormalities, bilateral: swelling and bilateral: tenderness (b/l heel wounds R>L) Assessment and Plan *Assessment and plan (1) 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 Qualifiers: Diabetes mellitus ocean transportation intermediary insulin use: with ocean transportation intermediary use Qualified Code(s): E11.42 - Type 2 diabetes mellitus with diabetic polyneuropathy; Z79.4 - termite treater (current) use of insulin Category: Medical Code(s): E11.42 - Type 2 diabetes mellitus with diabetic polyneuropathy (2) Diabetes: Status: Acute Qualifiers: Diabetes mellitus complication detail: with polyneuropathy Diabetes mellitus complication status: with neurologic complications Diabetes mellitus longterm insulin use: with ocean transportation intermediary use Diabetes mellitus type: type 2 Qualified Code(s): E11.42 - Type 2 diabetes mellitus with diabetic polyneuropathy; Z79.4 - care home (current) use of insulin Category: Medical Code(s): E11.9 - Type 2 diabetes mellitus without complications (3) Dystrophia unguium: Status: Acute Category: Medical Code(s): L60.3 - Nail dystrophy (4) Hammertoe: Status: Acute Qualifiers: Laterality: bilateral Qualified Code(s): M20.41 - Other hammer toe(s) (acquired), right foot; M20.42 - Other hammer toe(s) (acquired), left foot Category: Medical Code(s): M20.40 - Other hammer toe(s) (acquired), unspecified foot (5) Diabetic ulcer of left heel associated with diabetes mellitus due to underlying condition, limited to breakdown of skin: Status: Acute Category: Medical Code(s): E08.621 - Diabetes mellitus due to underlying condition with foot ulcer; L97.421 - Non-pressure chronic ulcer of left heel and midfoot limited to breakdown of skin (6) Diabetic ulcer of right heel associated with diabetes mellitus due to underlying condition, limited to breakdown of skin: Status: Acute Category: Medical Code(s): E08.621 - Diabetes mellitus due to underlying condition with foot ulcer; L97.411 - Non-pressure chronic ulcer of right heel and midfoot limited to breakdown of skin (7) Keratosis: Status: Acute Category: Medical Code(s): L57.0 - Actinic keratosis (8) Acute kidney injury: Status: Resolved Category: Medical Code(s): N17.9 - Acute kidney failure, unspecified Plan 03/31/25: B/L heel Diabetic Foot ulcers: -Hemoglobin A1c 9.5% in October 2024 -Reviewed her B/L foot 3V WB x-rays from yesterday (03/30) No obvious cortical erosions or acute fractures noted. -FINDINGS: LEFT FOOT Three views were obtained. There is no fracture or dislocation. The joint spaces appear normal. There is hammertoe deformity of the 1st through 5th digits. Prominent soft tissue edema over the dorsum of the foot measures 2.2 cm. There is no evidence of bony erosion or periosteal reaction. IMPRESSION: Soft tissue edema without acute osseous abnormality. FINDINGS: RIGHT FOOT Three views were obtained. There is no fracture or dislocation. The joint spaces appear normal. There is hammertoe deformity of the 1st through 5th digits. Prominent soft tissue edema over the dorsum of the foot measures 2.4 cm. There is no evidence of bony erosion or periosteal reaction. IMPRESSION: Soft tissue edema without acute osseous abnormality. Reviewed, Interpreted and Dictated by Richy Reddy MD. Transcribed by Shira Panchal. -Patient resting in bed -As x-rays show no cortical erosion, no plans for surgery. -Need to off load heels, order heel protectors. -Wound culture obtained from her Right heel (03/30) gram stain showing gram neg. rods, final culture pending -Right heel wound-Opticel silver, betadine soaked gauze, dry gauze, carlo, greg. -Left Heel wound-Alleyvn foam pad -B/L DFU/Heel Wounds cleaned with wound floor cleaner, then debrided, sharp excisional full-thickness debridement x2. See above for debridement measurements. -Daily dressing changes needed. -Patient has [facility] services established -Patient has Santyl at home -Keep heels offloaded on pillow while in bed or in chair. -Ok to WB in post op shoes, walker. -Patient may continue to have a diet as currently taking. -Continue antibiotics IV Zosyn 3.375 grams every 8 hours as ordered per Hospitalist -All orders per Dr. Jerez 03/31/25, Dr Jerez: -Reviewed note by ONLINE TRADER above -Plan: Podiatry debridement at bedside this am. -B/L DFU/heel presssure ulcers: sharp excisional full-thickness debridement x2 -Right heel wound culture taken 03/30/25 -Previous wound culture right heel from 12/09/24: Escherichia coli, Staphylococcus aureus (MRSA), Enterococcus faecalis -New x-rays 3v b/l feet taken and evaluated by myself. No obvious cortical erosions or acute fractures noted. Report reviewed. FINDINGS: LEFT FOOT Three views were obtained. There is no fracture or dislocation. The joint spaces appear normal. There is hammertoe deformity of the 1st through 5th digits. Prominent soft tissue edema over the dorsum of the foot measures 2.2 cm. There is no evidence of bony erosion or periosteal reaction. IMPRESSION: Soft tissue edema without acute osseous abnormality. FINDINGS: RIGHT FOOT Three views were obtained. There is no fracture or dislocation. The joint spaces appear normal. There is hammertoe deformity of the 1st through 5th digits. Prominent soft tissue edema over the dorsum of the foot measures 2.4 cm. There is no evidence of bony erosion or periosteal reaction. IMPRESSION: Soft tissue edema without acute osseous abnormality. Reviewed, Interpreted and Dictated by Richy Reddy MD. Transcribed by Shira Panchal. -Plan: as x-rays show no cortical erosion, no plans for surgery. -Need to off load heels, order heel protectors. -Hold Santyl ointment. -Discussed need to dry out the wound. Overall looks better than yesterday with Betadine. Will plan to continue Betadine but add silver antimicrobial. -Left Heel wound-Alleyvn foam pad -Right heel wound-Opticel silver, betadine soaked gauze, dry gauze, carlo, greg. -Discussed abx with Hospitalist team: due to hx of E coli, MRSA, E faecalis to right heel DFU- will likely need continued abx therapy -If IV abx-possibly Dapto/Vanco + Zoysn/Cefepime. If oral-possibly linezolid + pencillin/ampicillin SNF Orders ([place]): -Off load b/l heels with foam heel protectors (suspended pillow behind calf, reduce pressure of heels on the bed) -Will need dressing changes every other day to left heel: Alleyvn foam pad -Daily dressing changes to right heel: Opticel silver (or calcium alginate w/silver), betadine soaked gauze, dry gauze, carlo, greg. -Rec continued abx (defer to Hospitalist) -Will need outpatient Podiatry follow up in 1-2 weeks
--- NOTE | 2025-03-31 08:22 | P.PN_ITS ---
Subjective *Date: 03/31/25 *Time: 14:22 Interval history: Stable on room air. Unclear her response to diuresis due to poor metabolic output but patient appears to report good urine output. Medical Exam Vital signs and Labs for Last 24 Hours: Vital Signs Temp Pulse Pulse Pulse Resp BP BP 03/31/25 07:45 98.2 F 59 L 16 144/62 H 03/31/25 06:35 03/31/25 05:00 03/31/25 04:00 60 03/31/25 04:00 98.9 F 56 L 16 124/56 L 03/31/25 03:00 03/31/25 01:00 03/31/25 00:00 50 L 03/30/25 23:00 03/30/25 21:00 03/30/25 20:00 03/30/25 20:00 60 03/30/25 20:00 98.6 F 63 16 132/51 L 03/30/25 18:04 03/30/25 16:08 03/30/25 16:00 50 L 03/30/25 16:00 98.2 F 58 L 16 120/60 03/30/25 14:06 03/30/25 13:25 98.3 F 50 L 18 135/60 03/30/25 12:25 98.2 F 47 L 19 133/58 L 03/30/25 12:12 03/30/25 11:55 98.2 F 53 L 19 143/63 H 03/30/25 11:55 98.2 F 53 L 19 143/63 H 03/30/25 11:54 60 03/30/25 10:55 98.4 F 52 L 20 137/48 L 03/30/25 10:35 98.2 F 56 L 20 131/84 03/30/25 10:25 98.2 F 56 L 20 148/56 H 03/30/25 10:10 98.2 F 49 L 20 121/46 L 03/30/25 10:09 03/30/25 10:05 98.2 F 49 L 20 125/56 L 03/30/25 10:00 98.2 F 50 L 20 135/53 L 03/30/25 09:55 98.4 F 53 L 20 126/55 L 03/30/25 09:45 98.2 F 48 L 20 118/48 L 03/30/25 09:00 Pulse Ox O2 Del Method 03/31/25 07:45 95 Room Air 03/31/25 06:35 Room Air 03/31/25 05:00 Room Air 03/31/25 04:00 03/31/25 04:00 95 Room Air 03/31/25 03:00 Room Air 03/31/25 01:00 Room Air 03/31/25 00:00 03/30/25 23:00 Room Air 03/30/25 21:00 Room Air 03/30/25 20:00 Room Air 03/30/25 20:00 03/30/25 20:00 93 L Room Air 03/30/25 18:04 Room Air 03/30/25 16:08 Room Air 03/30/25 16:00 03/30/25 16:00 93 L Room Air 03/30/25 14:06 Room Air 03/30/25 13:25 97 03/30/25 12:25 97 03/30/25 12:12 Room Air 03/30/25 11:55 97 03/30/25 11:55 97 03/30/25 11:54 03/30/25 10:55 96 03/30/25 10:35 96 03/30/25 10:25 95 03/30/25 10:10 95 03/30/25 10:09 Room Air 03/30/25 10:05 96 03/30/25 10:00 96 03/30/25 09:55 96 03/30/25 09:45 96 03/30/25 09:00 Room Air Intake and Output 03/30/25 03/31/25 03/31/25 23:59 07:59 15:59 Intake Total 480 / 1476.25 263.75 / 263.75 Output Total 250 / 825 150 / 150 Balance 230 / 651.25 113.75 / 113.75 Intake: Intake, Oral Amount 430 / 1210 30 / 30 Intake, Total IV Amount 50 / 266.25 233.75 / 233.75 0.9 % Sodium Chloride 250 ml @ 183.75 / 183.75 25 mls/hr IV .Q10H WILFREDO Rx#: [id number] Piperacillin/Tazo 2.25 gm In 0. 50 / 200 50 / 50 9 % Sodium Chloride 50 ml @ 100 mls/hr IV Q6H WILFREDO Rx#:[id number] Output: Output, Urine Amount 250 / 825 150 / 150 Other: Number of Unmeasured Voids 0 Number of Bowel Movements 1 Weight 90.01 kg Patient Weight 03/31/25 23:59 Weight 90.01 kg Laboratory Results - last 24 hr 03/29/25 20:40: POC Glucose 196 H 03/30/25 05:23: Sodium 136, Potassium 4.4, Chloride 110 H, Carbon Dioxide 20 L, Anion Gap 10.4, BUN 41 H, Creatinine 2.10 H, Estimated Creat Clear 32, Estimated GFR 23 L, Est GFR ( Amer) 28 L, Glucose 114 H, Calcium 7.6 L, Magnesium 2.0, Total Bilirubin 0.3, AST 15, ALT 8 L, Alkaline Phosphatase 83, Total Protein 4.8 L, Albumin 2.3 L D, Globulin 2.5, Albumin/Globulin Ratio 0.9 L 03/30/25 06:53: Blood Type A Positive, Antibody Screen Negative, Crossmatch (AHG) See Detail 03/30/25 10:06: POC Glucose 150 H 03/30/25 16:03: POC Glucose 200 H 03/30/25 16:10: Hgb 8.5 L D, Hct 27.2 L 03/30/25 19:58: POC Glucose 206 H 03/31/25 05:18: WBC 10.6, RBC 2.89 L, Hgb 7.9 L, Hct 25.7 L, MCV 88.9, MCH 27.3, MCHC 30.7 L, RDW 17.9 H, Plt Count 255, MPV 9.4, Neut % (Auto) 54.5, Lymph % (Auto) 34.2, [place] % (Auto) 7.1, Eos % (Auto) 3.3, Baso % (Auto) 0.3, Neut # (Auto) 5.8, Lymph # (Auto) 3.6, [place] # (Auto) 0.8, Eos # (Auto) 0.4, Baso # (Au to) 0.0, Sodium 137, Potassium 4.7, Chloride 110 H, Carbon Dioxide 19 L, Anion Gap 12.7, BUN 48 H, Creatinine 2.50 H, Estimated Creat Clear 27, Estimated GFR 19 L*, Est GFR ( Amer) 23 L, Glucose 94, Calcium 7.8 L, Magnesium 2.0, Total Bilirubin 0.3, AST 12 L, ALT 8 L, Alkaline Phosphatase 85, Total Protein 5.1 L, Albumin 2.5 L, Globulin 2.6, Albumin/Globulin Ratio 1.0 L 03/31/25 05:40: POC Glucose 109 I & O for Labs for Last 24 Hours: Intake & Output 03/28/25 03/29/25 03/30/25 03/31/25 23:59 23:59 23:59 23:59 Intake Total 50 / 50 870 / 1050 1476.25 / 1476.25 263.75 / 263.75 Output Total 700 / 700 825 / 825 150 / 150 Balance 50 / 50 170 / 350 651.25 / 651.25 113.75 / 113.75 Weight 90.718 kg 86.438 kg 88.042 kg 90.01 kg Microbiology Reports for the Last 24 Hours: Microbiology 03/29/25 05:01 Blood Blood Culture - Preliminary NO GROWTH AFTER 48 HOURS 03/29/25 05:01 Blood Blood Culture - Preliminary NO GROWTH AFTER 48 HOURS 03/30/25 11:50 Foot,Right - Wound Gram Stain - Final 03/28/25 22:45 Urine,Clean Catch Urine Culture - Preliminary Assessment and Plan *Assessment and plan (1) CHF (congestive heart failure): Status: Acute Category: Medical Code(s): I50.9 - Heart failure, unspecified (2) Anemia in chronic kidney disease (CKD): Status: Acute Category: Medical Code(s): N18.9 - Chronic kidney disease, unspecified; D63.1 - Anemia in chronic kidney disease (3) Pleural effusion, bilateral: Status: Acute Category: Medical Code(s): J90 - Pleural effusion, not elsewhere classified (4) Cardiorenal syndrome: Status: Acute Category: Medical Code(s): I13.10 - Hypertensive heart and chronic kidney disease without heart failure, with stage 1 through stage 4 chronic kidney disease, or unspecified chronic kidney disease (5) Fluid overload: Status: Acute Category: Medical Code(s): E87.70 - Fluid overload, unspecified (6) Generalized weakness: Status: Acute Category: Medical Code(s): R53.1 - Weakness (7) Diabetic ulcer of right heel associated with diabetes mellitus due to underlying condition, limited to breakdown of skin: Status: Acute Category: Medical Code(s): E08.621 - Diabetes mellitus due to underlying condition with foot ulcer; L97.411 - Non-pressure chronic ulcer of right heel and midfoot limited to breakdown of skin (8) Diabetic ulcer of left heel associated with diabetes mellitus due to underlying condition, limited to breakdown of skin: Status: Acute Category: Medical Code(s): E08.621 - Diabetes mellitus due to underlying condition with foot ulcer; L97.421 - Non-pressure chronic ulcer of left heel and midfoot limited to breakdown of skin (9) (HFpEF) heart failure with preserved ejection fraction: Status: Acute Qualifiers: Heart failure chronicity: acute on chronic Qualified Code(s): I50.33 - Acute on chronic diastolic (congestive) heart failure Category: Medical Code(s): I50.30 - Unspecified diastolic (congestive) heart failure (10) 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 Qualifiers: 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: with 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 use Qualified Code(s): E11.42 - Type 2 diabetes mellitus with diabetic polyneuropathy; Z79.4 - superintendent terminal (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 She states lower extremity edema began about 1 to 2 weeks ago, and shortness of breath began a few days ago. Patient had previously been on temporary dialysis at [facility] due to acute renal failure, has and dialysis dependent for several months. Endorses intermittent clear productive phlegm but denies chest pain, fever/chills, abdominal pain. Does not take any diuretics at this time. Workup in the ED significant for VBG pH 7.33, pCO2 86.7, bicarb 41, BNP 625, UA grossly abnormal, CT abdomen revealing moderate left pleural effusion and small right pleural effusion. CXR confirms this. On room air. Given IV Lasix 40 mg, DuoNebs, IV magnesium in the ED. Though VBG pH is compensated, patient has significant hypercapnia and pH low normal concerning for hypoventilation from pleural effusion. Given these findings, ED provider and I discussed case and I decided to admit patient for suspected HFpEF exacerbation, symptomatic pleural effusion. #HFpEF exacerbation #Bilateral pleural effusions #Hypercapnia ? Presented with progressive lower extremity edema, shortness of breath. ? Continue aggressive diuresis. Currently on Bumex 2 mg IV twice daily and 25 mg daily. - Cardiology and pulmonology consulted to assist with care. No plan for thoracentesis today. Repeat chest x-ray obtained showing stable if not slightly smaller pleural effusion. - DuoNebs every 6 hours scheduled. ? Echo showing normal BiV function. Small pericardial effusion less than 0.3 cm. No evidence of tamponade or indication of need for drainage. ? Discussed case with cardiology, recommend continuing diuresis. Will hold ARB/ARNI and SGLT2 due to kidney dysfunction and recurrent UTIs. -Repeat CBC, CMP, magnesium ordered for the morning - Potassium 4.4, creatinine 2.1. Up from 1.8. BUN 41. Magnesium 2.0. From review of patient's chart, the creatinine 0.6 does not appear in line with her known history and is concerning for an error with the lab. Baseline more consistent with 1.8. Kidney function not drastically different from her baseline at this time. Is making urine. Electrolytes stable. #UTI ? UA grossly abnormal, urine culture pending. ? Start IV Zosyn 3.375 grams every 8 hours after blood cultures were obtained. #Type 2 diabetes ? Hemoglobin A1c 9.5% in October 2024. Repeat A1c this visit 5.3. ? LDSSI, ACHS glucose checks. #PAD #CAD ? Abnormal Lexiscan in December 2024, with known significant PAD. ? Cardiology was planning for outpatient staged LHC and peripheral revascularizations. ? Continue aspirin. Patient has had severe muscle aches with statins in the past, consider low-dose statin tomorrow. #Hypothyroidism ? Continue home levothyroxine once reconciled. Follow-up TFTs. #Hypertension ? Continue hydralazine 50 mg 3 times a day, isosorbide mononitrate 60 mg daily, metoprolol succinate 25 mg daily, and nifedipine 60 mg daily. #GERD ? Continue PPI. Decubitus wounds of heels/diabetic ulcers of heels. Present on admission. Podiatry consulted. Debridement performed today. Acute on chronic anemia from chronic disease: Hemoglobin 6.9. Transfuse with goal hemoglobin greater than 7. 1 unit today. Repeat hemoglobin level ordered for the morning. Full code DVT prophylaxis: Hold morning Lovenox for possible cardiac intervention, avoid SCDs due to severe PAD.
[2025-03-31] MEDS: ISOSORBIDE MONO 60MG TAB.ER.24H 60 MG PO (09:01)
[2025-03-31] MEDS: HYDRALAZINE HCL 25MG TABLET 50 MG PO ×3 (09:01→20:37)
[2025-03-31] MEDS: SPIRONOLACTONE 25MG TABLET 25 MG PO (09:01)
[2025-03-31] MEDS: BUMETANIDE 1MG/4ML VIAL 2 MG IV (09:01)
[2025-03-31] MEDS: CLOPIDOGREL 75MG TAB 75 MG PO (09:01)
[2025-03-31] MEDS: ASPIRIN EC 81MG TABLET 81 MG PO (09:01)
[2025-03-31] MEDS: INSULIN GLARGINE 100 UNITS/ML 3ML FLEXPEN 10 UNIT SUBCUT (09:02)
--- NOTE | 2025-03-31 09:19 | P.PN_ITS ---
Subjective *Date: 03/31/25 *Time: 14:28 Interval history: No acute respiratory events overnight. Pulmonology Exam Inpatient Vital signs and Labs for Last 24 Hours: Temp Pulse Resp BP Pulse Ox O2 Del Method 98.2 F 60 16 144/62 H 95 Room Air 03/31/25 07:45 03/31/25 08:00 03/31/25 07:45 03/31/25 07:45 03/31/25 07:45 03/31/25 09:00 Laboratory Results - last 24 hr 03/29/25 20:40: POC Glucose 196 H 03/30/25 06:53: Blood Type A Positive, Antibody Screen Negative, Crossmatch (AHG) See Detail 03/30/25 10:06: POC Glucose 150 H 03/30/25 16:03: POC Glucose 200 H 03/30/25 16:10: Hgb 8.5 L D, Hct 27.2 L 03/30/25 19:58: POC Glucose 206 H 03/31/25 05:18: WBC 10.6, RBC 2.89 L, Hgb 7.9 L, Hct 25.7 L, MCV 88.9, MCH 27.3, MCHC 30.7 L, RDW 17.9 H, Plt Count 255, MPV 9.4, Neut % (Auto) 54.5, Lymph % (Auto) 34.2, [place] % (Auto) 7.1, Eos % (Auto) 3.3, Baso % (Auto) 0.3, Neut # (Auto) 5.8, Lymph # (Auto) 3.6, [place] # (Auto) 0.8, Eos # (Auto) 0.4, Baso # (Auto) 0.0, Sodium 137, Potassium 4.7, Chloride 110 H, Carbon Dioxide 19 L, Anion Gap 12.7, BUN 48 H, Creatinine 2.50 H, Estimated Creat Clear 27, Estimated GFR 19 L*, Est GFR ( Amer) 23 L, Glucose 94, Calcium 7.8 L, Magnesium 2.0, Total Bilirubin 0.3, AST 12 L, ALT 8 L, Alkaline Phosphatase 85, Total Protein 5.1 L, Albumin 2.5 L, Globulin 2.6, Albumin/Globulin Ratio 1.0 L 03/31/25 05:40: POC Glucose 109 Temp Pulse Resp BP Pulse Ox O2 Del Method 98.2 F 73 19 179/73 H 99 Room Air 03/29/25 08:00 03/29/25 08:00 03/29/25 08:00 03/29/25 08:00 03/29/25 08:00 03/29/25 08:00 Laboratory Results - last 24 hr 03/28/25 21:15: WBC 6.3, RBC 4.89, Hgb 12.2, Hct 40.4, MCV 82.6, MCH 24.9 L, MCHC 30.2 L, RDW 21.7 H, Plt Count 219, MPV 10.4, Neut % (Auto) 89.8 H, Lymph % (Auto) 5.7 L, [place] % (Auto) 2.4, Eos % (Auto) 0.2, Baso % (Auto) 1.1, Neut # (Auto) 5.7, Lymph # (Auto) 0.4 L, [place] # (Auto) 0.2, Eos # (Auto) 0.0, Baso # (Auto) 0.1, Total Counted 100, Neutrophils % (Manual) 63, Band Neutrophils % 30 H, Lymphocytes % (Manual) 2 L, Monocytes % (Manual) 5, D-Dimer 0.86 H, VBG pH 7.33, VBG pCO2 86.7 H, VBG pO2 92.1 H, VBG HCO3 44.4 H, VBG Total CO2 47.0 H, VBG O2 Saturation 97.1 H, VBG Base Excess 18.4 H, VBG Lactic Acid 1.1, Sodium 138, Potassium 5.1, Chloride 92 L, Carbon Dioxide 41 H*, Anion Gap 10.1, BUN 20 H, Creatinine 0.30 L, Estimated Creat Clear 69, Estimated GFR 216, Est GFR ( Amer) 262, Glucose 104 H, Calcium 9.5, Magnesium 1.9, Total Bilirubin 0.3, AST 54 H, ALT 51, Alkaline Phosphatase 82, Troponin I 0.01, NT-Pro-B Natriuret Pep 625 H, Total Protein 6.0 L, Albumin 2.9 L, Globulin 3.1, Albumin/Globulin Ratio 0.9 L, Lipase 37, Acetone Level None detected 03/28/25 22:45: Urine Color Yellow, Urine Appearance Clear, Urine pH 6.0, Ur Specific [place] 1.020, Urine Protein 3+ A, Urine Glucose (UA) Trace, Urine Ketones Negative, Urine Blood 3+ A, Urine Nitrate Positive A, Urine Bilirubin Negative, Urine Urobilinogen 0.2, Ur Leukocyte Esterase 1+ A, Urine RBC 10-20, Urine WBC 10-20, Ur Squamous Epith Cells 3-5, Urine Bacteria 3+ 03/29/25 00:50: Troponin I < 0.01 03/29/25 05:01: WBC 10.7 D, RBC 2.57 L D, Hgb 7.0 L, Hct 23.3 L, MCV 90.7, MCH 27.2, MCHC 30.0 L, RDW 18.5 H, Plt Count 290 D, MPV 9.8, Neut % (Auto) 59.2, Lymph % (Auto) 31.9, [place] % (Auto) 6.0, Eos % (Auto) 2.2, Baso % (Auto) 0.4, Neut # (Auto) 6.3, Lymph # (Auto) 3.4, [place] # (Auto) 0.6, Eos # (Auto) 0.2, Baso # (Auto) 0.0, Sodium 137, Potassium 4.0 D, Chloride 110 H, Carbon Dioxide 21 L, Anion Gap 10.0, BUN 42 H D, Creatinine 1.80 H D, Estimated Creat Clear 36, Estimated GFR 27 L, Est GFR ( Amer) 33 L D, Glucose 145 H D, Calcium 8.3 L, Magnesium 2.2 D, Total Bilirubin 0.2, AST 15 D, ALT 10 L D, Alkaline Phosphatase 82, Total Protein 5.4 L, Albumin 2.7 L, Globulin 2.7, Albumin/Globulin Ratio 1.0 L 03/29/25 05:30: POC Glucose 160 H 03/29/25 07:10: VBG pH 7.34, VBG pCO2 38.6, VBG pO2 75.2 H, VBG HCO3 20.5 L, VBG Total CO2 21.7 L, VBG O2 Saturation 94.8 H, VBG Base Excess -5.2 L, VBG Lactic Acid 2.4 H I & O for Labs for Last 24 Hours: Intake & Output 03/28/25 03/29/25 03/30/25 03/31/25 23:59 23:59 23:59 23:59 Intake Total 50 / 50 870 / 1050 1476.25 / 1476.25 263.75 / 263.75 Output Total 700 / 700 825 / 825 150 / 150 Balance 50 / 50 170 / 350 651.25 / 651.25 113.75 / 113.75 Weight 200 lb 190 lb 9 oz 194 lb 1.6 oz 198 lb 7 oz Intake & Output 03/26/25 03/27/25 03/28/25 03/29/25 23:59 23:59 23:59 23:59 Intake Total 50 / 50 360 / 360 Output Total 500 / 500 Balance 50 / 50 -140 / -140 Weight 200 lb 190 lb 9 oz Microbiology Reports for the Last 24 Hours: Microbiology 03/29/25 05:01 Blood Blood Culture - Preliminary NO GROWTH AFTER 48 HOURS 03/29/25 05:01 Blood Blood Culture - Preliminary NO GROWTH AFTER 48 HOURS 03/30/25 11:50 Foot,Right - Wound Gram Stain - Final 03/28/25 22:45 Urine,Clean Catch Urine Culture - Preliminary Microbiology 03/28/25 22:45 Urine,Clean Catch Urine Culture - Preliminary Constitutional: Present mild distress Head: Present normocephalic and atraumatic ENT: Present normal exam, normal oropharynx and mucous membranes moist Neck: Present normal inspection and full ROM Respiratory: Present diminished air movement, normal respiratory effort and able to speak in complete sentences; Absent prolonged expiratory phase, respiratory distress or wheezes Cardiac: Present S1/S2, Tachycardia and radial pulses present GI: Present soft and distention; Absent tenderness or guarding Rectal (female): Present deferred (female): Present deferred Skin: Present intact; Absent cyanosis or jaundice Neuro: Present alert, awake and oriented x 3 Extremities: Present normal inspection and edema; Absent clubbing or cyanosis Psychiatric: Present normal affect and cooperative Assessment and Plan *Assessment and plan (1) Pleural effusion, bilateral: Status: Acute Category: Medical Code(s): J90 - Pleural effusion, not elsewhere classified Plan Ms. Davis is a 74-year-old female never smoker, no prior respiratory complaints, not using any oxygen supplementation or inhaler therapy at with history of heart failure reduced ejection fraction renal dysfunction, previously on dialysis, recently transition off dialysis, type 2 diabetes mellitus hypothyroidism presented to ER with worsening respiratory distress and progressively worsening bilateral lower extremity pulmonary edema and pulmonary was called for further evaluation and management. Denies any subjective fevers or chills but denies any worsening productive phlegm/sputum discoloration Chest x-ray upon admission no dense consolidative/airspace changes noted. Left pleural effusion noted. Increased vascular congestion. CT abdomen showed bilateral pleural effusions small right and moderate left. Blood gas upon admission did not show any evidence of hypoxic/hypercarbic respiratory failure Afebrile. Hemodynamically stable. Mild neutrophilic predominant leukocytosis. Currently receiving nebulization therapies with diuretics and antibiotics including Zosyn. On initial examination does not appear to be in any respiratory distress. No wheezing noted. Decreased breath sounds lower lung [place]. Etiology of this patient's bilateral pleural effusions likely from volume overload. Repeat chest x-ray improving effusions. Continue to receive diuretics. Interval update No acute respiratory events overnight. Continue to remain on room air. Improving respiratory distress. Plan: No need for antibiotics from pulmonary standpoint DuoNebs 4 times daily as needed Monitor clinically to determine the need for thoracentesis. # Thank you for involving pulmonary in this patient care. Will follow the patient in pulmonary clinic 3 to 4 weeks post discharge
--- NOTE | 2025-03-31 09:57 | EXP.CARD.PN ---
Subjective Subjective Date: 03/31/25 Time: 09:57 Interval history: Patient denies symptom changes overnight. I/O still indicates +1L since admission. Anderson cath placed this morning. Creatinine worsening, up to 2.8 Exam Data for Last 24 hours Vital signs and Labs for Last 24 Hours: Temp Pulse Resp BP Pulse Ox O2 Del Method 98.2 F 60 16 144/62 H 95 Room Air 03/31/25 07:45 03/31/25 08:00 03/31/25 07:45 03/31/25 07:45 03/31/25 07:45 03/31/25 09:00 Laboratory Results - last 24 hr 03/29/25 20:40: POC Glucose 196 H 03/30/25 06:53: Crossmatch (AHG) See Detail 03/30/25 10:06: POC Glucose 150 H 03/30/25 16:03: POC Glucose 200 H 03/30/25 16:10: Hgb 8.5 L D, Hct 27.2 L 03/30/25 19:58: POC Glucose 206 H 03/31/25 05:18: WBC 10.6, RBC 2.89 L, Hgb 7.9 L, Hct 25.7 L, MCV 88.9, MCH 27.3, MCHC 30.7 L, RDW 17.9 H, Plt Count 255, MPV 9.4, Neut % (Auto) 54.5, Lymph % (Auto) 34.2, [place] % (Auto) 7.1, Eos % (Auto) 3.3, Baso % (Auto) 0.3, Neut # (Auto) 5.8, Lymph # (Auto) 3.6, [place] # (Auto) 0.8, Eos # (Auto) 0.4, Baso # (Auto) 0.0, Sodium 137, Potassium 4.7, Chloride 110 H, Carbon Dioxide 19 L, Anion Gap 12.7, BUN 48 H, Creatinine 2.50 H, Estimated Creat Clear 27, Estimated GFR 19 L*, Est GFR ( Amer) 23 L, Glucose 94, Calcium 7.8 L, Magnesium 2.0, Total Bilirubin 0.3, AST 12 L, ALT 8 L, Alkaline Phosphatase 85, Total Protein 5.1 L, Albumin 2.5 L, Globulin 2.6, Albumin/Globulin Ratio 1.0 L 03/31/25 05:40: POC Glucose 109 I & O for Last 24 hours: Intake & Output 03/28/25 03/29/25 03/30/25 03/31/25 23:59 23:59 23:59 23:59 Intake Total 50 / 50 870 / 1050 1476.25 / 1476.25 313.75 / 313.75 Output Total 700 / 700 825 / 825 150 / 150 Balance 50 / 50 170 / 350 651.25 / 651.25 163.75 / 163.75 Weight 200 lb 190 lb 9 oz 194 lb 1.6 oz 198 lb 7 oz Microbiology Reports for the Last 24 Hours: Microbiology 03/29/25 05:01 Blood Blood Culture - Preliminary NO GROWTH AFTER 48 HOURS 03/29/25 05:01 Blood Blood Culture - Preliminary NO GROWTH AFTER 48 HOURS 03/30/25 11:50 Foot,Right - Wound Gram Stain - Final 03/28/25 22:45 Urine,Clean Catch Urine Culture - Preliminary Constitutional Constitutional: no acute distress and cooperative Comments: pale *Routine HEENT Exam Eye: Present PERRL *Routine Respiratory Exam Respiratory: Present CTA bilaterally; Absent accessory muscle use, wheezes or crackles *Routine Cardiovascular Exam Cardiovascular: Present RRR, Normal S1 and Normal S2; Absent murmur, gallop or rubs *Routine Abdominal Exam Abdominal: Present soft; Absent tenderness *Routine Extremities Exam Extremities: Present pulses intact; Absent cyanosis or edema Comments: Mild edema noted left arm which is site of IV, no erythema or pain Bilateral lower extremity pitting edema 2+ knee-high *Routine Skin Exam Skin: Present intact; Absent erythema or wounds *Routine Neurological Exam Neurological: Present alert and oriented X3 Routine Psychiatric Exam Psychiatric: Present cooperative Progress Note: A&P Assessment and plan (1) Pleural effusion, bilateral: Status: Acute (2) Cardiorenal syndrome: Status: Acute (3) ESRD (end stage renal disease): Status: Acute (4) DM type 2 causing vascular disease: Status: Chronic (5) Peripheral arterial occlusive disease: Status: Chronic (6) Anemia in chronic kidney disease (CKD): Status: Acute Assessment and Plan Assessment and Plan for All Diagnoses:: Acute on Chronic Cardiorenal Syndrome Type 4 - known severe CKD-IV/ESRD, recent dialysis port removed, details unclear - pt historically with only mild age related changes on ECHO - mild biatrial dilation and mild MR/TR - ProBNP 650 - severe pitting edema, knee high bilaterally - small pleural effusions - severe GANT - Plan: GDMT as tolerated (No ARB/ARNI due to recent ESRD. No SGLT-2 due to UTI. Consider Aldactone vs Karendia pending ECHO results. Repeat 2D ECHO. Diurese cautiously. She received Lasix 40mg x1, now on Bumex 1mg BID. Trend strict I/O. Daily BMP. 03/30: ECHO pending, I/O shows +325, Cr worsening daily, consider increasing diuretics. 03/31: ECHO shows no significant change, mild findings out of proportion to her vol overload. Still suspect this is primarily a renally drive issue. Discussed with Hospitalist who is going to try Bumex challenge with IV meds and repeat labs. Depending on her urine output and labs she may need transfer to center with Nephrology. Mild MR/TR and Biatrial Dilation - Details as above - Repeat 2D ECHO here unchanged Pericardial Effusion - small noted on ECHO here, no tamponade - recommend repeat limited ECHO 2 weeks. Abnl Stress test - Myoview 12/2024, no ischemia noted, borderline TID at 1.2 - known vasculopathy with decades of poorly controlled DM - likely has CAD but denies anginal symptoms and normal EF, normal Troponin. No indication for procedural intervention at this time as contrast dye would carry significant risk for her kidneys - cont ASA, add statin and BB PAD - extensive BLE dz w/non-healing wounds - has seen vascular surgery with intervention elsewhere, details unclear - cont ASA, Lovenox, resume statin, add wound care Diabetic Nephropathy with CKD-IV/ESRD - Cr historically 2-3, recently required dialysis, port removed, details unclear - here with Cr 0.6 then 1.8 - possibly dilutional initially - 3+ proteinuria - cautious diuresis, dose adjust meds, daily BMP 03/30: worsening up to 2.1 03/31: worsening up to 2.8 - plan as outlined above DM - last A1C 9.5 - glucose control per primary service Htn - unknown baseline - consistently 150-170 here - cont Aldactone, diuresis, add Toprol, add Hydralazine UTI - urine pos for protein, blood, luekocytes, and nytrates - WBC nml - afebrile - Ab per primary service 03/31: No change subjectively with worsening Cr and no real diuresis. Bumex challenge pending per Hospitalist. No significant CV concerns at this time. Consider transfer to center with Nephrology.
[2025-03-31] MEDS: BUMETANIDE 10 MG in 0.9 % SODIUM CHLORIDE 60 ML IV ×2 (10:47→18:46)
[2025-03-31 11:04] LABS: POC Glucose,Bedside 113 gm/dL (70-110)
--- NOTE | 2025-03-31 14:33 | P.PN_ITS ---
Subjective *Date: 03/31/25 *Time: 14:33 Interval history: Stable on room air. Appears to had a poor response to diuretics however unsure her actual output. Do appear to be some unmeasured voids. Legs do look better on exam however. No nausea or vomiting. Afebrile. Discussed placing Anderson catheter today for strict output. Patient amenable. Working with therapy Medical Exam Vital signs and Labs for Last 24 Hours: Vital Signs Temp Pulse Pulse Pulse Resp BP Pulse Ox 03/31/25 12:00 98.2 F 61 17 139/60 95 03/31/25 11:00 03/31/25 09:00 03/31/25 08:00 03/31/25 08:00 60 03/31/25 07:45 98.2 F 59 L 16 144/62 H 95 03/31/25 06:35 03/31/25 05:00 03/31/25 04:00 60 03/31/25 04:00 98.9 F 56 L 16 124/56 L 95 03/31/25 03:00 03/31/25 01:00 03/31/25 00:00 50 L 03/30/25 23:00 03/30/25 21:00 03/30/25 20:00 03/30/25 20:00 60 03/30/25 20:00 98.6 F 63 16 132/51 L 93 L 03/30/25 18:04 03/30/25 16:08 03/30/25 16:00 50 L 03/30/25 16:00 98.2 F 58 L 16 120/60 93 L O2 Del Method 03/31/25 12:00 Room Air 03/31/25 11:00 Room Air 03/31/25 09:00 Room Air 03/31/25 08:00 Room Air 03/31/25 08:00 03/31/25 07:45 Room Air 03/31/25 06:35 Room Air 03/31/25 05:00 Room Air 03/31/25 04:00 03/31/25 04:00 Room Air 03/31/25 03:00 Room Air 03/31/25 01:00 Room Air 03/31/25 00:00 03/30/25 23:00 Room Air 03/30/25 21:00 Room Air 03/30/25 20:00 Room Air 03/30/25 20:00 03/30/25 20:00 Room Air 03/30/25 18:04 Room Air 03/30/25 16:08 Room Air 03/30/25 16:00 03/30/25 16:00 Room Air Intake and Output 03/30/25 03/31/25 03/31/25 23:59 07:59 15:59 Intake Total 480 / 1476.25 263.75 / 463.75 200 / 463.75 Output Total 250 / 825 150 / 150 Balance 230 / 651.25 113.75 / 313.75 200 / 313.75 Intake: Intake, Oral Amount 430 / 1210 30 / 180 150 / 180 Intake, Total IV Amount 50 / 266.25 233.75 / 283.75 50 / 283.75 0.9 % Sodium Chloride 250 ml @ 183.75 / 183.75 25 mls/hr IV .Q10H WILFREDO Rx#: [id number] Piperacillin/Tazo 2.25 gm In 0. 50 / 200 50 / 100 50 / 100 9 % Sodium Chloride 50 ml @ 100 mls/hr IV Q6H WILFREDO Rx#:[id number] Output: Output, Urine Amount 250 / 825 150 / 150 Other: Number of Unmeasured Voids 0 Number of Bowel Movements 1 1 Weight 90.01 kg Patient Weight 03/31/25 23:59 Weight 90.01 kg Laboratory Results - last 24 hr 03/28/25 22:45: Urine Color Yellow, Urine Appearance Clear, Urine pH 6.0, Ur Specific [place] 1.020, Urine Protein 3+ A, Urine Glucose (UA) Trace, Urine Ketones Negative, Urine Blood 3+ A, Urine Nitrate Positive A, Urine Bilirubin Negative, Urine Urobilinogen 0.2, Ur Leukocyte Esterase 1+ A, Urine RBC 10-20, Urine WBC 10-20, Ur Squamous Epith Cells 3-5, Urine Bacteria 3+ 03/29/25 20:40: POC Glucose 196 H 03/30/25 06:53: Crossmatch (AHG) See Detail 03/30/25 16:03: POC Glucose 200 H 03/30/25 16:10: Hgb 8.5 L D, Hct 27.2 L 03/30/25 19:58: POC Glucose 206 H 03/31/25 05:18: WBC 10.6, RBC 2.89 L, Hgb 7.9 L, Hct 25.7 L, MCV 88.9, MCH 27.3, MCHC 30.7 L, RDW 17.9 H, Plt Count 255, MPV 9.4, Neut % (Auto) 54.5, Lymph % (Auto) 34.2, [place] % (Auto) 7.1, Eos % (Auto) 3.3, Baso % (Auto) 0.3, Neut # (Auto) 5.8, Lymph # (Auto) 3.6, [place] # (Auto) 0.8, Eos # (Auto) 0.4, Baso # (Auto) 0.0, Sodium 137, Potassium 4.7, Chloride 110 H, Carbon Dioxide 19 L, Anion Gap 12.7, BUN 48 H, Creatinine 2.50 H, Estimated Creat Clear 27, Estimated GFR 19 L*, Est GFR ( Amer) 23 L, Glucose 94, Calcium 7.8 L, Magnesium 2.0, Total Bilirubin 0.3, AST 12 L, ALT 8 L, Alkaline Phosphatase 85, Total Protein 5.1 L, Albumin 2.5 L, Globulin 2.6, Albumin/Globulin Ratio 1.0 L 03/31/25 05:40: POC Glucose 109 03/31/25 10:48: POC Glucose 113 H I & O for Labs for Last 24 Hours: Intake & Output 03/28/25 03/29/25 03/30/25 03/31/25 23:59 23:59 23:59 23:59 Intake Total 50 / 50 870 / 1050 1476.25 / 1476.25 463.75 / 463.75 Output Total 700 / 700 825 / 825 150 / 150 Balance 50 / 50 170 / 350 651.25 / 651.25 313.75 / 313.75 Weight 90.718 kg 86.438 kg 88.042 kg 90.01 kg Microbiology Reports for the Last 24 Hours: Microbiology 03/30/25 11:50 Foot,Right - Wound Gram Stain - Final 03/30/25 11:50 Foot,Right - Wound Wound Culture - Preliminary 03/28/25 22:45 Urine,Clean Catch Urine Culture - Preliminary Gram Negative Rods Gram Negative Rods#2 03/29/25 05:01 Blood Blood Culture - Preliminary NO GROWTH AFTER 48 HOURS 03/29/25 05:01 Blood Blood Culture - Preliminary NO GROWTH AFTER 48 HOURS Constitutional: Present no acute distress, obese, chronically ill appearing and cooperative Head: Present atraumatic and normocephalic ENT: Present normal exam Respiratory: Present normal respiratory effort; Absent rhonchi, wheezes or crackles Cardiac: Present Reg Rate and Rhythm GI: Present soft and normal bowel sounds; Absent distention or tenderness Extremities: Present normal inspection, full ROM and edema (3+ to thighs, very minimal improvement from yesterday.) Skin: Present intact; Absent erythema Comment:: Stage II wound left heel approximately nickel sized, unstageable wound right heel size of a silver dollar. Both present on admission Neuro: Present Grossly Intact, alert, awake, oriented x 3 and moves all extremities Assessment and Plan *Assessment and plan (1) CHF (congestive heart failure): Status: Acute Category: Medical Code(s): I50.9 - Heart failure, unspecified (2) Anemia in chronic kidney disease (CKD): Status: Acute Category: Medical Code(s): N18.9 - Chronic kidney disease, unspecified; D63.1 - Anemia in chronic kidney disease (3) Pleural effusion, bilateral: Status: Acute Category: Medical Code(s): J90 - Pleural effusion, not elsewhere classified (4) Cardiorenal syndrome: Status: Acute Category: Medical Code(s): I13.10 - Hypertensive heart and chronic kidney disease without heart failure, with stage 1 through stage 4 chronic kidney disease, or unspecified chronic kidney disease (5) Fluid overload: Status: Acute Category: Medical Code(s): E87.70 - Fluid overload, unspecified (6) Generalized weakness: Status: Acute Category: Medical Code(s): R53.1 - Weakness (7) Diabetic ulcer of right heel associated with diabetes mellitus due to underlying condition, limited to breakdown of skin: Status: Acute Category: Medical Code(s): E08.621 - Diabetes mellitus due to underlying condition with foot ulcer; L97.411 - Non-pressure chronic ulcer of right heel and midfoot limited to breakdown of skin (8) Diabetic ulcer of left heel associated with diabetes mellitus due to underlying condition, limited to breakdown of skin: Status: Acute Category: Medical Code(s): E08.621 - Diabetes mellitus due to underlying condition with foot ulcer; L97.421 - Non-pressure chronic ulcer of left heel and midfoot limited to breakdown of skin (9) (HFpEF) heart failure with preserved ejection fraction: Status: Acute Qualifiers: Heart failure chronicity: acute on chronic Qualified Code(s): I50.33 - Acute on chronic diastolic (congestive) heart failure Category: Medical Code(s): I50.30 - Unspecified diastolic (congestive) heart failure (10) 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 Qualifiers: Diabetes mellitus retirement insulin use: with retirement use Qualified Code(s): E11.42 - Type 2 diabetes mellitus with diabetic polyneuropathy; Z79.4 - prison (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 She states lower extremity edema began about 1 to 2 weeks ago, and shortness of breath began a few days ago. Patient had previously been on temporary dialysis at [facility] due to acute renal failure, has and dialysis dependent for several months. Endorses intermittent clear productive phlegm but denies chest pain, fever/chills, abdominal pain. Does not take any diuretics at this time. Workup in the ED significant for VBG pH 7.33, pCO2 86.7, bicarb 41, BNP 625, UA grossly abnormal, CT abdomen revealing moderate left pleural effusion and small right pleural effusion. CXR confirms this. On room air. Given IV Lasix 40 mg, DuoNebs, IV magnesium in the ED. Though VBG pH is compensated, patient has significant hypercapnia and pH low normal concerning for hypoventilation from pleural effusion. Given these findings, ED provider and I discussed case and I decided to admit patient for suspected HFpEF exacerbation, symptomatic pleural effusion. Continuing diuresis. Escalate to Bumex drip today. Pulmonology and cardiology continue to assist with care. May necessitate transfer for dialysis if does not have improved response to diuretics. Problems addressed as follows: #HFpEF exacerbation #Bilateral pleural effusions #Hypercapnia RANDY CKD 4 ? Presented with progressive lower extremity edema, shortness of breath. ? Continue aggressive diuresis. Escalate to Bumex drip 1 mg/h. Anderson placed for strict output monitoring - Cardiology and pulmonology consulted to assist with care. No plan for thoracentesis today. Repeat chest x-ray obtained showing stable if not slightly smaller pleural effusion. - DuoNebs every 6 hours scheduled. ? Echo showing normal BiV function. Small pericardial effusion less than 0.3 cm. No evidence of tamponade or indication of need for drainage. ? Discussed case with cardiology, recommend continuing diuresis. Will hold ARB/ARNI and SGLT2 due to kidney dysfunction and recurrent UTIs. - Repeat CBC, CMP, magnesium ordered for the morning - Potassium 4.7, creatinine up to 2.5. BUN 48. Magnesium 2.0. Albumin low at 2.5. Complicates her edema. - Baseline creatinine consistent at about 1.8. - Repeat BMP ordered for the afternoon to monitor kidney function with aggressive diuresis. #UTI ? UA grossly abnormal, urine culture pending. ? Start IV Zosyn 3.375 grams every 8 hours after blood cultures were obtained. #Type 2 diabetes ? Hemoglobin A1c 9.5% in October 2024. Repeat A1c this visit 5.3. ? LDSSI, ACHS glucose checks. #PAD #CAD ? Abnormal Lexiscan in December 2024, with known significant PAD. ? Cardiology was planning for outpatient staged LHC and peripheral revascular izations. ? Continue aspirin. On Lipitor 40 mg nightly at home. Resume #Hypothyroidism: Continue home levothyroxine 88 mcg daily #Hypertension: Continue hydralazine 50 mg 3 times a day, isosorbide mononitrate 60 mg daily, metoprolol succinate 25 mg daily, and nifedipine 60 mg daily. #GERD: Continue PPI. Decubitus wounds of heels/diabetic ulcers of heels. Present on admission. Podiatry consulted. Debridement performed 03/30. Previous cultures were polymicrobial with staph, E. coli, E faecalis. Received antibiotics back in December when she was admitted and then transferred. Was on Vanco at that time. Will treat at this time for her known infection above with her UTI. Plan to transition to cefdinir at discharge. Awaiting urine and wound cultures for further management. Acute on chronic anemia from chronic disease: Hemoglobin responded well to transfusion. Stable at 7.9 today. Transfusion threshold hemoglobin less than 7. Repeat hemoglobin level ordered for the morning. Full code DVT prophylaxis: avoid SCDs due to severe PAD., Lovenox subcu 30 mg daily Diabetic diet
--- NOTE | 2025-03-31 15:53 | [facility].PTWOUND ---
Rehab Wound Evaluation Rehab IP Wound Evaluation Start: 03/29/25 01:42 Freq: ONCE Status: Active Protocol: Document 03/31/25 15:42 EAMON (Rec: 03/31/25 15:53 PHOJANE [id number]) Rehab PT Wound Assessment Subjective Subjective 74 yowf adm to [facility] with volume overload. She has PMH of renal failure and was previously undergoing dialysis, type 2 diabetes, PAD, diabetic foot ulcers, CLL, hypothyroidism. She has long hx of B chronic heel ulcers, L worse than R. Podiatry has been consulted and has performed bedside debridement on heel ulcers at this time. Will defer to their recommendations. No need for sharp debridement from therapy services at this time. Plan/Recommendation Comment Continue per podiatry recommendations. Contact therapy if additional wound care is needed. PHYSICIAN CERTIFICATION: I certify the specified therapy services for Michelle Rivas are required, authorized, and reviewed every 30 days.
[2025-03-31] MEDS: humaLOG 100 UNITS/ML 10ML VIAL (SSI) SUBCUT ×2 (16:25→20:37)
[2025-03-31 16:29] LABS: POC Glucose,Bedside 165 gm/dL (70-110)
--- NOTE | 2025-03-31 16:44 | PC.NURSE ---
pt has been up to the chair majority of the shift. worked with PT/OT. positioning wedge, pillows, heel protectors and foam dressing used to prevent pressure injuries. [place] placed this morning for accurate I&Os. bumex drip infusing at 10ml/hr. abx given per aug. pt has had no complaints of pain. no needs at this time. call light within reach.
[2025-03-31 17:40] LABS: Anion Gap 15.0 mEq/L (5-15); Blood Urea Nitrogen 50 mg/dl (7-17); Calcium 8.2 mg/dl (8.4-10.2); Carbon Dioxide 18 mmol/L (22.0-30.0); Chloride 109 mmol/L (98-107); Creatinine Clearance Estimated 25 mL/min (50-200); Creatinine,Serum 2.70 mg/dl (0.52-1.04); Estimated Glomerular Filt Rate 17 ml/min (>60); GFR (African American) 21 ML/MIN (>60); Glucose 167 mg/dl (74-100); Potassium 5.0 mmoL/L (3.5-5.1); Sodium 137 mmol/L (136-145)
[2025-03-31] MEDS: GABAPENTIN 300MG CAPSULE 300 MG PO (20:37)
[2025-03-31] MEDS: PRAVASTATIN 40MG TAB 40 MG PO (20:37)
[2025-03-31] MEDS: MIRTAZAPINE 15 MG TABLET PO (20:37)
[2025-03-31] MEDS: ALBUMIN HUMAN 12.5 GM/50 ML BAG IV ×2 (20:37→21:22)
[2025-03-31 21:17] LABS: POC Glucose,Bedside 176 gm/dL (70-110)
[2025-04-01] VITALS: BP 145/62; PULSE 70; PULSE 71; RESP 16; TEMP 36.9; O2SAT 95
[2025-04-01] MEDS: PIPERACILLIN/TAZO 2.25 GM in 0.9 % SODIUM CHLORIDE 50 ML IV ×4 (01:54→18:47)
[2025-04-01 04:00] VITALS: BP 146/60; PULSE 65; PULSE 70; RESP 16; TEMP 37.1; O2SAT 98; BMI 29.4
[2025-04-01 06:00] LABS: Hematocrit 24.2 % (37.0-47.0); Hemoglobin 7.6 g/dL (12.2-16.2); Immature Granulocytes % 0.4 %; Mean Corpuscular HGB Conc 31.4 g/dL (31.8-35.4); Mean Corpuscular Hemoglobin 27.8 pg (27.0-31.2); Mean Corpuscular Volume 88.6 fl (81-99); Nucleated Red Blood Cells % 0 %; Platelet Count 259 K/mm3 (142-424); Red Blood Count 2.73 M/mm3 (4.20-5.40); Red Cell Distribution Width-SD 57.7 fL; White Blood Count 9.5 K/mm3 (4.8-10.8)
[2025-04-01] MEDS: BUMETANIDE 10 MG in 0.9 % SODIUM CHLORIDE 60 ML IV ×2 (06:03→16:02)
[2025-04-01] MEDS: LEVOTHYROXINE 88MCG (0.088MG) TAB 88 MCG PO (06:04)
[2025-04-01 06:06] LABS: POC Glucose,Bedside 104 gm/dL (70-110)
[2025-04-01 06:10] LABS: Albumin Level 2.5 g/dl (3.5-5.0); Chloride 109 mmol/L (98-107); Sodium 138 mmol/L (136-145)
[2025-04-01 06:11] LABS: Potassium 4.6 mmoL/L (3.5-5.1)
[2025-04-01 06:13] LABS: Alanine Aminotransferase 8 U/L (12-78); Albumin/Globulin Ratio 0.9 (1.1-1.8); Alkaline Phosphatase 76 U/L (38-126); Anion Gap 11.6 mEq/L (5-15); Aspartate Amino Transferase 11 U/L (14-36); Blood Urea Nitrogen 50 mg/dl (7-17); Carbon Dioxide 22 mmol/L (22.0-30.0); Creatinine Clearance Estimated 24 mL/min (50-200); Creatinine,Serum 2.80 mg/dl (0.52-1.04); Estimated Glomerular Filt Rate 16 ml/min (>60); GFR (African American) 20 ML/MIN (>60); Globulin 2.7 g/dL (1.3-3.2); Total Protein,Serum 5.2 g/dl (6.3-8.2)
[2025-04-01 06:14] LABS: Calcium 8.0 mg/dl (8.4-10.2); Glucose 99 mg/dl (74-100); Magnesium 1.8 mg/dl (1.6-2.3)
[2025-04-01 06:50] LABS: Bilirubin,Total < 0.1 mg/dl (0.2-1.3)
[2025-04-01 08:00] VITALS: BP 160/67; PULSE 60; PULSE 65; RESP 16; TEMP 36.8; O2SAT 93
--- NOTE | 2025-04-01 08:02 | EXP.ACUTE.PN ---
Subjective *Date: 04/01/25 *Time: 13:38 Interval history: Patient appears somewhat depressed this morning. Denies chest pain or shortness of breath. Diuresing well. No nausea or vomiting. Tolerating p.o. intake. Medical Exam Vital signs and Labs for Last 24 Hours: Vital Signs Temp Pulse Pulse Resp BP Pulse Ox O2 Del Method 04/01/25 06:27 Room Air 04/01/25 05:00 Room Air 04/01/25 04:00 70 04/01/25 04:00 98.7 F 65 16 146/60 H 98 Room Air 04/01/25 03:00 Room Air 04/01/25 01:00 Room Air 04/01/25 00:00 70 04/01/25 00:00 98.5 F 71 16 145/62 H 95 Room Air 03/31/25 23:00 Room Air 03/31/25 21:00 Room Air 03/31/25 20:00 Room Air 03/31/25 20:00 70 03/31/25 20:00 98.4 F 70 16 125/92 H 96 Room Air 03/31/25 19:00 Room Air 03/31/25 17:00 Room Air 03/31/25 15:56 97.6 F 67 18 131/62 96 Room Air 03/31/25 15:00 Room Air 03/31/25 13:00 Room Air 03/31/25 12:00 98.2 F 61 17 139/60 95 Room Air 03/31/25 11:00 Room Air 03/31/25 09:00 Room Air Intake and Output 03/31/25 04/01/25 04/01/25 23:59 07:59 15:59 Intake Total 520 / 1513.75 390 / 390 Output Total 1700 / 1700 Balance 520 / -436.25 -1310 / -1310 Intake: Intake, Oral Amount 270 / 930 240 / 240 Intake, Total IV Amount 250 / 583.75 150 / 150 Albumin Human 12.5 gm In 50 ml 100 / 100 @ 100 mls/hr IV Q30M [facility] Rx#: [id number] Bumetanide 10 mg In 0.9 % 100 / 100 100 / 100 Sodium Chloride 60 ml @ 10 mls/ hr IV .Q10H [facility] Rx#:[id number] Piperacillin/Tazo 2.25 gm In 0. 50 / 200 50 / 50 9 % Sodium Chloride 50 ml @ 100 mls/hr IV Q6H [facility] Rx#:[id number] Output: Output, Urine Amount 1700 / 1700 Other: Number of Unmeasured Voids 0 Number of Bowel Movements 1 Weight 88.133 kg Patient Weight 04/01/25 23:59 Weight 88.133 kg Laboratory Results - last 24 hr 03/28/25 22:45: Urine Color Yellow, Urine Appearance Clear, Urine pH 6.0, Ur Specific [place] 1.020, Urine Protein 3+ A, Urine Glucose (UA) Trace, Urine Ketones Negative, Urine Blood 3+ A, Urine Nitrate Positive A, Urine Bilirubin Negative, Urine Urobilinogen 0.2, Ur Leukocyte Esterase 1+ A, Urine RBC 10-20, Urine WBC 10-20, Ur Squamous Epith Cells 3-5, Urine Bacteria 3+ 03/31/25 10:48: POC Glucose 113 H 03/31/25 16:21: POC Glucose 165 H 03/31/25 17:11: Sodium 137, Potassium 5.0, Chloride 109 H, Carbon Dioxide 18 L, Anion Gap 15.0, BUN 50 H, Creatinine 2.70 H, Estimated Creat Clear 25, Estimated GFR 17 L*, Est GFR ( Amer) 21 L, Glucose 167 H D, Calcium 8.2 L 03/31/25 20:27: POC Glucose 176 H 04/01/25 05:16: WBC 9.5, RBC 2.73 L, Hgb 7.6 L, Hct 24.2 L, MCV 88.6, MCH 27.8, MCHC 31.4 L, RDW 17.8 H, Plt Count 259, MPV 9.8, Neut % (Auto) 49.7, Lymph % (Auto) 39.8, [place] % (Auto) 6.0, Eos % (Auto) 3.7, Baso % (Auto) 0.4, Neut # (Auto) 4.7, Lymph # (Auto) 3.8, [place] # (Auto) 0.6, Eos # (Auto) 0.4, Baso # (Auto) 0.0, Sodium 138, Potassium 4.6, Chloride 109 H, Carbon Dioxide 22, Anion Gap 11.6, BUN 50 H, Creatinine 2.80 H, Estimated Creat Clear 24, Estimated GFR 16 L*, Est GFR ( Amer) 20 L, Glucose 99 D, Calcium 8.0 L, Magnesium 1.8, Total Bilirubin < 0.1 L, AST 11 L, ALT 8 L, Alkaline Phosphatase 76, Total Protein 5.2 L, Albumin 2.5 L, Globulin 2.7, Albumin/Globulin Ratio 0.9 L 04/01/25 05:58: POC Glucose 104 I & O for Labs for Last 24 Hours: Intake & Output 03/29/25 03/30/25 03/31/25 04/01/25 23:59 23:59 23:59 23:59 Intake Total 870 / 1050 1476.25 / 1476.25 1273.75 / 1513.75 390 / 390 Output Total 700 / 700 825 / 825 850 / 1950 1700 / 1700 Balance 170 / 350 651.25 / 651.25 423.75 / -436.25 -1310 / -1310 Weight 86.438 kg 88.042 kg 90.01 kg 88.133 kg Microbiology Reports for the Last 24 Hours: Microbiology 03/28/25 22:45 Urine,Clean Catch Urine Culture - Final Klebsiella oxytoca Escherichia coli 03/30/25 11:50 Foot,Right - Wound Gram Stain - Final 03/30/25 11:50 Foot,Right - Wound Wound Culture - Preliminary Gram Negative Rods Gram Negative Rods#2 Gram Positive Cocci 03/29/25 05:01 Blood Blood Culture - Preliminary NO GROWTH AFTER 48 HOURS 03/29/25 05:01 Blood Blood Culture - Preliminary NO GROWTH AFTER 48 HOURS Constitutional: Present no acute distress, obese, chronically ill appearing and cooperative Head: Present atraumatic and normocephalic ENT: Present normal exam Respiratory: Present normal respiratory effort; Absent rhonchi, wheezes or crackles Cardiac: Present Reg Rate and Rhythm GI: Present soft and normal bowel sounds; Absent distention or tenderness Extremities: Present normal inspection, full ROM and edema (2-3+ to thighs, mild improvement from yesterday.) Skin: Present intact; Absent erythema Comment:: Stage II wound left heel approximately nickel sized, unstageable wound right heel size of a silver dollar. Both present on admission Neuro: Present Grossly Intact, alert, awake, oriented x 3 and moves all extremities Assessment and Plan *Assessment and plan (1) CHF (congestive heart failure): Status: Acute Category: Medical Code(s): I50.9 - Heart failure, unspecified (2) Anemia in chronic kidney disease (CKD): Status: Acute Category: Medical Code(s): N18.9 - Chronic kidney disease, unspecified; D63.1 - Anemia in chronic kidney disease (3) Pleural effusion, bilateral: Status: Acute Category: Medical Code(s): J90 - Pleural effusion, not elsewhere classified (4) Cardiorenal syndrome: Status: Acute Category: Medical Code(s): I13.10 - Hypertensive heart and chronic kidney disease without heart failure, with stage 1 through stage 4 chronic kidney disease, or unspecified chronic kidney disease (5) Fluid overload: Status: Acute Category: Medical Code(s): E87.70 - Fluid overload, unspecified (6) Generalized weakness: Status: Acute Category: Medical Code(s): R53.1 - Weakness (7) Diabetic ulcer of right heel associated with diabetes mellitus due to underlying condition, limited to breakdown of skin: Status: Acute Category: Medical Code(s): E08.621 - Diabetes mellitus due to underlying condition with foot ulcer; L97.411 - Non-pressure chronic ulcer of right heel and midfoot limited to breakdown of skin (8) Diabetic ulcer of left heel associated with diabetes mellitus due to underlying condition, limited to breakdown of skin: Status: Acute Category: Medical Code(s): E08.621 - Diabetes mellitus due to underlying condition with foot ulcer; L97.421 - Non-pressure chronic ulcer of left heel and midfoot limited to breakdown of skin (9) (HFpEF) heart failure with preserved ejection fraction: Status: Acute Qualifiers: Heart failure chronicity: acute on chronic Qualified Code(s): I50.33 - Acute on chronic diastolic (congestive) heart failure Category: Medical Code(s): I50.30 - Unspecified diastolic (congestive) heart failure (10) 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 Qualifiers: Diabetes mellitus fci insulin use: with fci use Qualified Code(s): E11.42 - Type 2 diabetes mellitus with diabetic polyneuropathy; Z79.4 - master control operator (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 She states lower extremity edema began about 1 to 2 weeks ago, and shortness of breath began a few days ago. Patient had previously been on temporary dialysis at [facility] due to acute renal failure, has and dialysis dependent for several months. Endorses intermittent clear productive phlegm but denies chest pain, fever/chills, abdominal pain. Does not take any diuretics at this time. Workup in the ED significant for VBG pH 7.33, pCO2 86.7, bicarb 41, BNP 625, UA grossly abnormal, CT abdomen revealing moderate left pleural effusion and small right pleural effusion. CXR confirms this. On room air. Given IV Lasix 40 mg, DuoNebs, IV magnesium in the ED. Though VBG pH is compensated, patient has significant hypercapnia and pH low normal concerning for hypoventilation from pleural effusion. Given these findings, ED provider and I discussed case and I decided to admit patient for suspected HFpEF exacerbation, symptomatic pleural effusion. Continuing diuresis. Responding to Bumex drip. Negative at least 1 L in the past 24 hours. Pulmonology and cardiology continue to assist with care. May necessitate transfer for dialysis if does not have improved response to diuretics. Problems addressed as follows: #HFpEF exacerbation #Bilateral pleural effusions #Hypercapnia RANDY CKD 4 ? Presented with progressive lower extremity edema, shortness of breath. ? Continue aggressive diuresis. Continuing Bumex drip 1 mg/h. Negative at least 1 L in the past 24 hours. Continue [place]. - Kidney function relatively stable today with BUN 50, creatinine 2.8. Albumin 2.5. Will consider additional administration of albumin to assist with diuresis - Potassium 4.6. Repeat CBC, CMP, magnesium ordered for the morning, repeat BMP ordered for the afternoon to monitor kidney function closely - DuoNebs every 6 hours scheduled. ? Echo showing normal BiV function. Small pericardial effusion less than 0.3 cm. No evidence of tamponade or indication of need for drainage. - Baseline creatinine consistent at about 1.8. - Reviewed patient's records from previous transfer in November to [facility]. At that time she saw nephrology, was diagnosed with diabetic nephropathy. Also diagnosed with end-stage renal disease. Underwent 3 times a week dialysis even after discharge to nursing facility. Kidney function improved and she was discontinued on dialysis but is yet to follow-up with nephrology. Attempting to identify which professional organizer managed her and who she was supposed to follow with. #UTI -Urinalysis positive for Klebsiella and E. coli. Continue current antibiotic with Zosyn renally dosed at 3.375 g every 8 hours. Will consider de-escalating to Levaquin at discharge. #Type 2 diabetes ? Hemoglobin A1c 9.5% in October 2024. Repeat A1c this visit 5.3. ? LDSSI, ACHS glucose checks. #PAD #CAD ? Abnormal Lexiscan in December 2024, with known significant PAD. -Had PCI performed to right tibial artery on 12/17/2024 earlier this year per my review of records from [facility] ? Cardiology was planning for outpatient staged LHC and peripheral revascularizations. ? Continue aspirin. Holding statin due to intolerance #Hypothyroidism: Continue home levothyroxine 88 mcg daily #Hypertension: Continue hydralazine 50 mg 3 times a day, isosorbide mononitrate 60 mg daily, metoprolol succinate 25 mg daily, and nifedipine 60 mg daily. #GERD: Continue PPI. Decubitus wounds of heels/diabetic ulcers of heels. Present on admission. Podiatry consulted. Debridement performed 03/30. Previous cultures were polymicrobial with staph, E. coli, E faecalis. Received antibiotics back in December when she was admitted and then transferred. Awaiting urine and wound cultures for further management. - Previously completed antibiotics at outside facility per chart review. Received appropriate course based on cultures identified above. Will hold on further antibiotics specific for foot wounds pending wound cultures Acute on chronic anemia from chronic kidney disease: Hemoglobin responded well to transfusion. Stable at 7.6 today. Transfusion threshold hemoglobin less than 7. Repeat hemoglobin level ordered for the morning. Full code DVT prophylaxis: avoid SCDs due to severe PAD., Lovenox subcu 30 mg daily Diabetic diet
--- NOTE | 2025-04-01 08:06 | P.PN_ITS ---
Subjective *Date: 04/01/25 *Time: 08:06 Medical Exam Vital signs and Labs for Last 24 Hours: Vital Signs Temp Pulse Pulse Resp BP Pulse Ox O2 Del Method 04/01/25 06:27 Room Air 04/01/25 05:00 Room Air 04/01/25 04:00 70 04/01/25 04:00 98.7 F 65 16 146/60 H 98 Room Air 04/01/25 03:00 Room Air 04/01/25 01:00 Room Air 04/01/25 00:00 70 04/01/25 00:00 98.5 F 71 16 145/62 H 95 Room Air 03/31/25 23:00 Room Air 03/31/25 21:00 Room Air 03/31/25 20:00 Room Air 03/31/25 20:00 70 03/31/25 20:00 98.4 F 70 16 125/92 H 96 Room Air 03/31/25 19:00 Room Air 03/31/25 17:00 Room Air 03/31/25 15:56 97.6 F 67 18 131/62 96 Room Air 03/31/25 15:00 Room Air 03/31/25 13:00 Room Air 03/31/25 12:00 98.2 F 61 17 139/60 95 Room Air 03/31/25 11:00 Room Air 03/31/25 09:00 Room Air Intake and Output 03/31/25 04/01/25 04/01/25 23:59 07:59 15:59 Intake Total 520 / 1513.75 390 / 390 Output Total 1700 / 1700 Balance 520 / -436.25 -1310 / -1310 Intake: Intake, Oral Amount 270 / 930 240 / 240 Intake, Total IV Amount 250 / 583.75 150 / 150 Albumin Human 12.5 gm In 50 ml 100 / 100 @ 100 mls/hr IV Q30M [facility] Rx#: [id number] Bumetanide 10 mg In 0.9 % 100 / 100 100 / 100 Sodium Chloride 60 ml @ 10 mls/ hr IV .Q10H [facility] Rx#:[id number] Piperacillin/Tazo 2.25 gm In 0. 50 / 200 50 / 50 9 % Sodium Chloride 50 ml @ 100 mls/hr IV Q6H [facility] Rx#:[id number] Output: Output, Urine Amount 1700 / 1700 Other: Number of Unmeasured Voids 0 Number of Bowel Movements 1 Weight 88.133 kg Patient Weight 04/01/25 23:59 Weight 88.133 kg Laboratory Results - last 24 hr 03/28/25 22:45: Urine Color Yellow, Urine Appearance Clear, Urine pH 6.0, Ur Specific [place] 1.020, Urine Protein 3+ A, Urine Glucose (UA) Trace, Urine Ketones Negative, Urine Blood 3+ A, Urine Nitrate Positive A, Urine Bilirubin Negative, Urine Urobilinogen 0.2, Ur Leukocyte Esterase 1+ A, Urine RBC 10-20, Urine WBC 10-20, Ur Squamous Epith Cells 3-5, Urine Bacteria 3+ 03/31/25 10:48: POC Glucose 113 H 03/31/25 16:21: POC Glucose 165 H 03/31/25 17:11: Sodium 137, Potassium 5.0, Chloride 109 H, Carbon Dioxide 18 L, Anion Gap 15.0, BUN 50 H, Creatinine 2.70 H, Estimated Creat Clear 25, Estimated GFR 17 L*, Est GFR ( Amer) 21 L, Glucose 167 H D, Calcium 8.2 L 03/31/25 20:27: POC Glucose 176 H 04/01/25 05:16: WBC 9.5, RBC 2.73 L, Hgb 7.6 L, Hct 24.2 L, MCV 88.6, MCH 27.8, MCHC 31.4 L, RDW 17.8 H, Plt Count 259, MPV 9.8, Neut % (Auto) 49.7, Lymph % (Auto) 39.8, [place] % (Auto) 6.0, Eos % (Auto) 3.7, Baso % (Auto) 0.4, Neut # (Auto) 4.7, Lymph # (Auto) 3.8, [place] # (Auto) 0.6, Eos # (Auto) 0.4, Baso # (Auto) 0.0, Sodium 138, Potassium 4.6, Chloride 109 H, Carbon Dioxide 22, Anion Gap 11.6, BUN 50 H, Creatinine 2.80 H, Estimated Creat Clear 24, Estimated GFR 16 L*, Est GFR ( Amer) 20 L, Glucose 99 D, Calcium 8.0 L, Magnesium 1.8, Total Bilirubin < 0.1 L, AST 11 L, ALT 8 L, Alkaline Phosphatase 76, Total Protein 5.2 L, Albumin 2.5 L, Globulin 2.7, Albumin/Globulin Ratio 0.9 L 04/01/25 05:58: POC Glucose 104 I & O for Labs for Last 24 Hours: Intake & Output 03/29/25 03/30/25 03/31/25 04/01/25 23:59 23:59 23:59 23:59 Intake Total 870 / 1050 1476.25 / 1476.25 1273.75 / 1513.75 390 / 390 Output Total 700 / 700 825 / 825 850 / 1950 1700 / 1700 Balance 170 / 350 651.25 / 651.25 423.75 / -436.25 -1310 / -1310 Weight 86.438 kg 88.042 kg 90.01 kg 88.133 kg Microbiology Reports for the Last 24 Hours: Microbiology 03/28/25 22:45 Urine,Clean Catch Urine Culture - Final Klebsiella oxytoca Escherichia coli 03/30/25 11:50 Foot,Right - Wound Gram Stain - Final 03/30/25 11:50 Foot,Right - Wound Wound Culture - Preliminary Gram Negative Rods Gram Negative Rods#2 Gram Positive Cocci 03/29/25 05:01 Blood Blood Culture - Preliminary NO GROWTH AFTER 48 HOURS 03/29/25 05:01 Blood Blood Culture - Preliminary NO GROWTH AFTER 48 HOURS The patient's infection will respond to the chosen ABx?: Yes (URINE CX = K.OXYTOCA,E. COLI, RIGHT FOOT WOUND CX PENDING.) Is the patient receiving the right drug, dose, and route?: Yes Could a more targeted ABx be ordered?: No How long ABx needed (days)?: 7
--- NOTE | 2025-04-01 09:22 | HMH.PHAAMS2 ---
- Antimicrobial Stewardship Review reviewed - no change Stewardship interventions: reviewed - no change Comments: day 4 of therapy pipercillin appropriate for + urine culture and pending would culture
[2025-04-01] MEDS: INSULIN GLARGINE 100 UNITS/ML 3ML FLEXPEN 10 UNIT SUBCUT (09:30)
[2025-04-01] MEDS: SPIRONOLACTONE 25MG TABLET 25 MG PO (09:31)
[2025-04-01] MEDS: HYDRALAZINE HCL 25MG TABLET 50 MG PO ×3 (09:31→20:02)
[2025-04-01] MEDS: CLOPIDOGREL 75MG TAB 75 MG PO (09:31)
[2025-04-01] MEDS: METOPROLOL SUCCINATE XL 25MG TABLET 25 MG PO (09:31)
[2025-04-01] MEDS: ISOSORBIDE MONO 60MG TAB.ER.24H 60 MG PO (09:31)
[2025-04-01] MEDS: ASPIRIN EC 81MG TABLET 81 MG PO (09:31)
[2025-04-01 11:38] LABS: POC Glucose,Bedside 139 gm/dL (70-110)
[2025-04-01 12:00] VITALS: BP 152/55; PULSE 60; PULSE 68; RESP 18; TEMP 36.6; O2SAT 94
[2025-04-01 16:00] VITALS: BP 134/54; PULSE 59; RESP 16; TEMP 36.8; O2SAT 96
[2025-04-01] MEDS: ALBUMIN HUMAN 12.5 GM/50 ML BAG IV ×2 (16:01→19:59)
[2025-04-01] MEDS: PRO-STAT AWC 30ML LIQUID PACKET 30 ML PO (16:49)
--- NOTE | 2025-04-01 17:09 | PC.NURSE ---
pt has remained in the chair for the majority of the shift. skin integrity measures in place include: foam dressing to heels, pillows for positioning, a waffle mat in the chair, encouraging frequent repositioning, and a bath with lotion application. [place] remains in place draining clear yellow urine. abx given per aug. bumex infusing @ 10ml/hr. no needs at this time. call light within reach.
[2025-04-01 17:28] LABS: Chloride 107 mmol/L (98-107); Potassium 4.8 mmoL/L (3.5-5.1); Sodium 138 mmol/L (136-145)
[2025-04-01 17:31] LABS: Anion Gap 14.8 mEq/L (5-15); Blood Urea Nitrogen 54 mg/dl (7-17); Calcium 8.2 mg/dl (8.4-10.2); Carbon Dioxide 21 mmol/L (22.0-30.0); Creatinine Clearance Estimated 22 mL/min (50-200); Creatinine,Serum 3.00 mg/dl (0.52-1.04); Estimated Glomerular Filt Rate 15 ml/min (>60); GFR (African American) 18 ML/MIN (>60); Glucose 118 mg/dl (74-100)
[2025-04-01] MEDS: GABAPENTIN 300MG CAPSULE 300 MG PO (19:59)
[2025-04-01] MEDS: MIRTAZAPINE 15 MG TABLET PO (19:59)
[2025-04-01 20:00] VITALS: BP 133/54; PULSE 59; RESP 12; TEMP 36.8; O2SAT 96
[2025-04-01] MEDS: PRAVASTATIN 40MG TAB 40 MG PO (20:03)
[2025-04-01] MEDS: humaLOG 100 UNITS/ML 10ML VIAL (SSI) SUBCUT (20:15)
[2025-04-01 20:25] LABS: POC Glucose,Bedside 186 gm/dL (70-110)
[2025-04-02] VITALS: BP 141/59; PULSE 56; RESP 14; TEMP 36.9; O2SAT 95
[2025-04-02] MEDS: PIPERACILLIN/TAZO 2.25 GM in 0.9 % SODIUM CHLORIDE 50 ML IV ×4 (01:31→20:20)
[2025-04-02] MEDS: ALBUMIN HUMAN 12.5 GM/50 ML BAG IV ×2 (02:05→08:21)
[2025-04-02] MEDS: BUMETANIDE 10 MG in 0.9 % SODIUM CHLORIDE 60 ML IV ×3 (02:07→22:14)
--- NOTE | 2025-04-02 03:46 | PC.NURSE ---
AOx4. VSS. On bumex drip, abx, receiving albumin. Currently resting in bed with eyes closed. Respirations even and unlabored. Bed low, locked, and call light in reach.
[2025-04-02 04:00] VITALS: BP 145/64; PULSE 56; RESP 12; TEMP 36.9; O2SAT 95; BMI 29.0
[2025-04-02 05:31] LABS: POC Glucose,Bedside 107 gm/dL (70-110)
[2025-04-02] MEDS: LEVOTHYROXINE 88MCG (0.088MG) TAB 88 MCG PO (06:42)
[2025-04-02 06:53] LABS: Hematocrit 24.7 % (37.0-47.0); Hemoglobin 7.8 g/dL (12.2-16.2); Immature Granulocytes % 0.5 %; Mean Corpuscular HGB Conc 31.6 g/dL (31.8-35.4); Mean Corpuscular Hemoglobin 28.2 pg (27.0-31.2); Mean Corpuscular Volume 89.2 fl (81-99); Nucleated Red Blood Cells % 0 %; Platelet Count 253 K/mm3 (142-424); Red Blood Count 2.77 M/mm3 (4.20-5.40); Red Cell Distribution Width-SD 58.1 fL; White Blood Count 8.9 K/mm3 (4.8-10.8)
[2025-04-02 07:08] LABS: Albumin Level 3.0 g/dl (3.5-5.0); Chloride 109 mmol/L (98-107); Potassium 4.7 mmoL/L (3.5-5.1); Sodium 139 mmol/L (136-145)
[2025-04-02 07:11] LABS: Alanine Aminotransferase 8 U/L (12-78); Albumin/Globulin Ratio 1.1 (1.1-1.8); Alkaline Phosphatase 75 U/L (38-126); Anion Gap 13.7 mEq/L (5-15); Aspartate Amino Transferase 13 U/L (14-36); Bilirubin,Total 0.2 mg/dl (0.2-1.3); Calcium 8.2 mg/dl (8.4-10.2); Carbon Dioxide 21 mmol/L (22.0-30.0); Globulin 2.7 g/dL (1.3-3.2); Glucose 97 mg/dl (74-100); Magnesium 1.8 mg/dl (1.6-2.3); Total Protein,Serum 5.7 g/dl (6.3-8.2)
[2025-04-02 07:16] LABS: Creatinine Clearance Estimated 21 mL/min (50-200); Creatinine,Serum 3.10 mg/dl (0.52-1.04); Estimated Glomerular Filt Rate 15 ml/min (>60); GFR (African American) 18 ML/MIN (>60)
[2025-04-02 08:00] VITALS: BP 140/60; PULSE 55; RESP 16; TEMP 36.6; O2SAT 93
--- NOTE | 2025-04-02 08:07 | EXP.ACUTE.PN ---
Subjective *Date: 04/02/25 *Time: 12:24 Interval history: Reports just being achy today. Having diarrhea now that she has been on antibiotics for several days. No nausea or vomiting. Having good response to diuretics. -2 L in the past 24 hours. Stable on room air. Afebrile. Medical Exam Vital signs and Labs for Last 24 Hours: Vital Signs Temp Pulse Pulse Pulse Resp BP Pulse Ox 04/02/25 06:34 04/02/25 05:00 04/02/25 04:00 98.4 F 56 L 12 145/64 H 95 04/02/25 03:00 04/02/25 01:00 04/02/25 00:00 98.4 F 56 L 14 141/59 H 95 04/01/25 23:00 04/01/25 21:00 04/01/25 20:00 04/01/25 20:00 98.3 F 59 L 12 133/54 L 96 04/01/25 18:36 04/01/25 17:00 04/01/25 16:00 98.3 F 59 L 16 134/54 L 96 04/01/25 15:00 04/01/25 13:00 04/01/25 12:00 60 04/01/25 12:00 97.9 F 68 18 152/55 H 94 L 04/01/25 11:00 04/01/25 09:00 O2 Del Method 04/02/25 06:34 Room Air 04/02/25 05:00 Room Air 04/02/25 04:00 Room Air 04/02/25 03:00 Room Air 04/02/25 01:00 Room Air 04/02/25 00:00 Room Air 04/01/25 23:00 Room Air 04/01/25 21:00 Room Air 04/01/25 20:00 Room Air 04/01/25 20:00 Room Air 04/01/25 18:36 Room Air 04/01/25 17:00 Room Air 04/01/25 16:00 Room Air 04/01/25 15:00 Room Air 04/01/25 13:00 Room Air 04/01/25 12:00 04/01/25 12:00 Room Air 04/01/25 11:00 Room Air 04/01/25 09:00 Room Air Intake and Output 04/01/25 04/02/2504/02/25 23:59 07:59 15:59 Intake Total 250 / 1820 440 / 440 Output Total 1250 / 3900 850 / 850 Balance -1000 / -2080 -410 / -410 Intake: Intake, Oral Amount 240 / 240 Intake, Total IV Amount 250 / 500 200 / 200 Albumin Human 12.5 gm In 50 ml 100 / 100 50 / 50 @ 100 mls/hr IV Q6H [facility] Rx#: [id number] Bumetanide 10 mg In 0.9 % 100 / 200 100 / 100 Sodium Chloride 60 ml @ 10 mls/ hr IV .Q10H [facility] Rx#:[id number] Piperacillin/Tazo 2.25 gm In 0. 50 / 200 50 / 50 9 % Sodium Chloride 50 ml @ 100 mls/hr IV Q6H [facility] Rx#:[id number] Output: Output, Urine Amount 1250 / 3900 850 / 850 Other: Number of Unmeasured Voids 0 0 Weight 87.044 kg Patient Weight 04/02/25 23:59 Weight 87.044 kg Laboratory Results - last 24 hr 04/01/25 11:15: POC Glucose 139 H 04/01/25 16:45: Sodium 138, Potassium 4.8, Chloride 107, Carbon Dioxide 21 L, Anion Gap 14.8, BUN 54 H, Creatinine 3.00 H, Estimated Creat Clear 22, Estimated GFR 15 L*, Est GFR ( Amer) 18 L*, Glucose 118 H, Calcium 8.2 L 04/01/25 20:12: POC Glucose 186 H 04/02/25 05:23: POC Glucose 107 04/02/25 06:30: WBC 8.9, RBC 2.77 L, Hgb 7.8 L, Hct 24.7 L, MCV 89.2, MCH 28.2, MCHC 31.6 L, RDW 17.7 H, Plt Count 253, MPV 9.7, Neut % (Auto) 48.0, Lymph % (Auto) 40.5, [place] % (Auto) 6.0, Eos % (Auto) 4.5, Baso % (Auto) 0.5, Neut # (Auto) 4.3, Lymph # (Auto) 3.6, [place] # (Auto) 0.5, Eos # (Auto) 0.4, Baso # (Auto) 0.0, Sodium 139, Potassium 4.7, Chloride 109 H, Carbon Dioxide 21 L, Anion Gap 13.7, Creatinine 3.10 H, Estimated Creat Clear 21, Estimated GFR 15 L*, Est GFR ( Amer) 18 L*, Glucose 97, Calcium 8.2 L, Magnesium 1.8, Total Bilirubin 0.2, AST 13 L, ALT 8 L, Alkaline Phosphatase 75, Total Protein 5.7 L, Albumin 3.0 L D, Globulin 2.7, Albumin/Globulin Ratio 1.1 I & O for Labs for Last 24 Hours: Intake & Output 03/30/25 03/31/25 04/01/25 04/02/25 23:59 23:59 23:59 23:59 Intake Total 1476.25 / 1476.25 1273.75 / 1513.75 1580 / 1820 440 / 440 Output Total 825 / 825 850 / 1950 3850 / 3900 850 / 850 Balance 651.25 / 651.25 423.75 / -436.25 -2270 / -2080 -410 / -410 Weight 88.042 kg 90.01 kg 88.133 kg 87.044 kg Microbiology Reports for the Last 24 Hours: Microbiology 03/30/25 11:50 Foot,Right - Wound Gram Stain - Final 03/30/25 11:50 Foot,Right - Wound Wound Culture - Preliminary Escherichia coli Gram Negative Rods#2 Staphylococcus intermedius 03/29/25 05:01 Blood Blood Culture - Preliminary NO GROWTH AFTER 4 DAYS 03/29/25 05:01 Blood Blood Culture - Preliminary NO GROWTH AFTER 4 DAYS 03/28/25 22:45 Urine,Clean Catch Urine Culture - Final Klebsiella oxytoca Escherichia coli Constitutional: Present no acute distress, obese, chronically ill appearing and cooperative Head: Present atraumatic and normocephalic ENT: Present normal exam Respiratory: Present normal respiratory effort; Absent rhonchi, wheezes or crackles Cardiac: Present Reg Rate and Rhythm GI: Present soft and normal bowel sounds; Absent distention or tenderness Extremities: Present normal inspection, full ROM and edema (2+ to knees, 1+ in thighs. mild improvement from yesterday.) Skin: Present intact; Absent erythema Comment:: Stage II wound left heel approximately nickel sized, unstageable wound right heel size of a silver dollar. Both present on admission Neuro: Present Grossly Intact, alert, awake, oriented x 3 and moves all extremities Assessment and Plan *Assessment and plan (1) CHF (congestive heart failure): Status: Acute Category: Medical Code(s): I50.9 - Heart failure, unspecified (2) Anemia in chronic kidney disease (CKD): Status: Acute Category: Medical Code(s): N18.9 - Chronic kidney disease, unspecified; D63.1 - Anemia in chronic kidney disease (3) Pleural effusion, bilateral: Status: Acute Category: Medical Code(s): J90 - Pleural effusion, not elsewhere classified (4) Cardiorenal syndrome: Status: Acute Category: Medical Code(s): I13.10 - Hypertensive heart and chronic kidney disease without heart failure, with stage 1 through stage 4 chronic kidney disease, or unspecified chronic kidney disease (5) Fluid overload: Status: Acute Category: Medical Code(s): E87.70 - Fluid overload, unspecified (6) Generalized weakness: Status: Acute Category: Medical Code(s): R53.1 - Weakness (7) Diabetic ulcer of right heel associated with diabetes mellitus due to underlying condition, limited to breakdown of skin: Status: Acute Category: Medical Code(s): E08.621 - Diabetes mellitus due to underlying condition with foot ulcer; L97.411 - Non-pressure chronic ulcer of right heel and midfoot limited to breakdown of skin (8) Diabetic ulcer of left heel associated with diabetes mellitus due to underlying condition, limited to breakdown of skin: Status: Acute Category: Medical Code(s): E08.621 - Diabetes mellitus due to underlying condition with foot ulcer; L97.421 - Non-pressure chronic ulcer of left heel and midfoot limited to breakdown of skin (9) (HFpEF) heart failure with preserved ejection fraction: Status: Acute Qualifiers: Heart failure chronicity: acute on chronic Qualified Code(s): I50.33 - Acute on chronic diastolic (congestive) heart failure Category: Medical Code(s): I50.30 - Unspecified diastolic (congestive) heart failure (10) 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 Qualifiers: Diabetes mellitus watermelon harvesting supervisor insulin use: with watermelon harvesting supervisor use Qualified Code(s): E11.42 - Type 2 diabetes mellitus with diabetic polyneuropathy; Z79.4 - watermelon harvesting supervisor (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 She states lower extremity edema began about 1 to 2 weeks ago, and shortness of breath began a few days ago. Patient had previously been on temporary dialysis at [facility] due to acute renal failure, has and dialysis dependent for several months. Endorses intermittent clear productive phlegm but denies chest pain, fever/chills, abdominal pain. Does not take any diuretics at this time. Workup in the ED significant for VBG pH 7.33, pCO2 86.7, bicarb 41, BNP 625, UA grossly abnormal, CT abdomen revealing moderate left pleural effusion and small right pleural effusion. CXR confirms this. On room air. Given IV Lasix 40 mg, DuoNebs, IV magnesium in the ED. Though VBG pH is compensated, patient has significant hypercapnia and pH low normal concerning for hypoventilation from pleural effusion. Given these findings, ED provider and I discussed case and I decided to admit patient for suspected HFpEF exacerbation, symptomatic pleural effusion. Continuing diuresis. Responding to Bumex drip. Negative 2 L in the past 24 hours. Pulmonology and cardiology continue to assist with care. May necessitate transfer for dialysis if does not have improved response to diuretics. Problems addressed as follows: #HFpEF exacerbation #Bilateral pleural effusions #Hypercapnia RANDY CKD 4 ? Presented with progressive lower extremity edema, shortness of breath. ? Continue aggressive diuresis. Continuing Bumex drip 1 mg/h. Negative 2 L in the past 24 hours. Will continue Anderson for now. Transition to twice daily Bumex IV in the morning. - Kidney function relatively stable, BUN 58, creatinine 3.1, has increased 0.3 points in the past 36 hours. - Albumin 3.0 today, will consider repeat administration today of IV albumin to facilitate fluid mobilization and diuresis. - Potassium 4.7, magnesium 1.8, calcium 8.2. Repeat CBC, CMP, magnesium ordered for the morning. Repeat BMP ordered for the evening - DuoNebs every 6 hours scheduled. ? Echo showing normal BiV function. Small pericardial effusion less than 0.3 cm. No evidence of tamponade or indication of need for drainage. - Baseline creatinine consistent at about 1.8. - Reviewed patient's records from previous transfer in November to [facility]. At that time she saw nephrology, was diagnosed with diabetic nephropathy. Also diagnosed with end-stage renal disease. Underwent 3 times a week dialysis even after discharge to nursing facility. Kidney function improved and she was discontinued on dialysis but is yet to follow-up with nephrology. Will need referral back to nephrology prior to discharge due to her CKD 4 and previous end-stage with dialysis. May very well need dialysis again in the future if unable to manage fluid status with medications #UTI: Urinalysis positive for Klebsiella and E. coli. Continue current antibiotic with Zosyn renally dosed at 2.25 g every 6 hours. Will consider de-escalating to Levaquin at discharge. #Type 2 diabetes ? Repeat A1c this visit 5.3. LDSSI, ACHS glucose checks. #PAD #CAD ? Abnormal Lexiscan in December 2024, with known significant PAD. -Had PCI performed to right tibial artery on 12/17/2024 earlier this year per my review of records from [facility] ? Cardiology was planning for outpatient staged LHC and peripheral revascularizations. ? Continue aspirin. Holding statin due to intolerance #Hypothyroidism: Continue home levothyroxine 88 mcg daily #Hypertension: Continue hydralazine 50 mg 3 times a day, isosorbide mononitrate 60 mg daily, metoprolol succinate 25 mg daily, and nifedipine 60 mg daily. #GERD: Continue PPI. Decubitus wounds of heels/diabetic ulcers of heels. Present on admission. Podiatry consulted. Debridement performed 03/30. Previous cultures were polymicrobial with staph, E. coli, E faecalis. Received antibiotics back in December when she was admitted and then transferred. - Current culture positive for E. coli and staph. Will continue current antibiotics. - Previously completed antibiotics at outside facility per chart review. Received appropriate course based on cultures identified above. Acute on chronic anemia from chronic kidney disease: Hemoglobin responded well to transfusion. Stable at 7.8 today. Transfusion threshold hemoglobin less than 7. Repeat hemoglobin level ordered for the morning. Continuing to work with therapy, will need placement for rehab. Full code DVT prophylaxis: avoid SCDs due to severe PAD., Lovenox subcu 30 mg daily Diabetic diet
[2025-04-02] MEDS: INSULIN GLARGINE 100 UNITS/ML 3ML FLEXPEN 10 UNIT SUBCUT (08:21)
[2025-04-02] MEDS: SPIRONOLACTONE 25MG TABLET 25 MG PO (08:23)
[2025-04-02] MEDS: ASPIRIN EC 81MG TABLET 81 MG PO (08:23)
[2025-04-02] MEDS: CLOPIDOGREL 75MG TAB 75 MG PO (08:23)
[2025-04-02] MEDS: ISOSORBIDE MONO 60MG TAB.ER.24H 60 MG PO (08:24)
[2025-04-02] MEDS: HYDRALAZINE HCL 25MG TABLET 50 MG PO ×3 (08:24→20:22)
[2025-04-02 08:35] LABS: Blood Urea Nitrogen 58 mg/dl (7-17)
[2025-04-02 08:47] LABS: POC Glucose,Bedside 109 gm/dL (70-110)
--- NOTE | 2025-04-02 10:23 | PC.NURSE ---
notified MD of patients heart rate being 50-55 bpm. MD requested to hold metoprolol this AM
[2025-04-02 11:46] LABS: POC Glucose,Bedside 134 gm/dL (70-110)
[2025-04-02 12:00] VITALS: BP 139/51; PULSE 58; RESP 17; TEMP 37.6; O2SAT 97
[2025-04-02] MEDS: LACTOBACILLUS PROBIOTIC COMB CAPSULE 1 CAP PO (12:42)
--- NOTE | 2025-04-02 15:37 | PC.NURSE ---
IV in the left AC fell out, new IV placed in the left AC.
[2025-04-02 16:00] VITALS: BP 145/60; PULSE 54; RESP 18; TEMP 36.8; O2SAT 95
[2025-04-02 16:50] LABS: POC Glucose,Bedside 139 gm/dL (70-110)
[2025-04-02] MEDS: CALCIUM POLYCARBOPHIL 625MG TAB 1250 MG PO (16:56)
[2025-04-02 17:01] LABS: Chloride 107 mmol/L (98-107); Potassium 5.0 mmoL/L (3.5-5.1); Sodium 137 mmol/L (136-145)
[2025-04-02 17:04] LABS: Anion Gap 15.0 mEq/L (5-15); Blood Urea Nitrogen 60 mg/dl (7-17); Calcium 8.4 mg/dl (8.4-10.2); Carbon Dioxide 20 mmol/L (22.0-30.0); Creatinine Clearance Estimated 22 mL/min (50-200); Creatinine,Serum 3.00 mg/dl (0.52-1.04); Estimated Glomerular Filt Rate 15 ml/min (>60); GFR (African American) 18 ML/MIN (>60); Glucose 131 mg/dl (74-100)
--- NOTE | 2025-04-02 18:50 | PC.NURSE ---
bilateral heel DSG change completed at 1800 per order. patient has remained up to the chair for most of the shift. [place] in place. bumex infusing at 10mls/hr. wedge cushion in place, heel protectors, and pillows for repositioning used. call light within reach, no requests at this time.
[2025-04-02 20:00] VITALS: BP 155/67; PULSE 57; RESP 16; TEMP 36.8; O2SAT 96
[2025-04-02 20:20] LABS: POC Glucose,Bedside 233 gm/dL (70-110)
[2025-04-02] MEDS: MIRTAZAPINE 15 MG TABLET PO (20:20)
[2025-04-02] MEDS: GABAPENTIN 300MG CAPSULE 300 MG PO (20:21)
[2025-04-02] MEDS: humaLOG 100 UNITS/ML 10ML VIAL (SSI) SUBCUT (20:21)
[2025-04-02] MEDS: PRAVASTATIN 40MG TAB 40 MG PO (20:21)
[2025-04-03] VITALS: BP 156/82; PULSE 59; RESP 16; TEMP 36.7; O2SAT 96
[2025-04-03] MEDS: PIPERACILLIN/TAZO 2.25 GM in 0.9 % SODIUM CHLORIDE 50 ML IV ×4 (01:16→20:12)
--- NOTE | 2025-04-03 02:09 | PC.NURSE ---
Pt AOx4, pleasant. No acute changes this shift. VSS. Bumex drip running. Receiving IBABx. Currently resting in bed with eyes closed. Respirations even and unlabored. Bed is low, locked, and call light is in reach.
[2025-04-03 04:00] VITALS: BP 161/66; PULSE 63; RESP 16; TEMP 36.8; O2SAT 95; BMI 28.8
[2025-04-03 06:01] LABS: POC Glucose,Bedside 112 gm/dL (70-110)
[2025-04-03] MEDS: LEVOTHYROXINE 88MCG (0.088MG) TAB 88 MCG PO (06:08)
[2025-04-03 07:17] LABS: Hematocrit 25.3 % (37.0-47.0); Hemoglobin 8.0 g/dL (12.2-16.2); Immature Granulocytes % 0.4 %; Mean Corpuscular HGB Conc 31.6 g/dL (31.8-35.4); Mean Corpuscular Hemoglobin 27.9 pg (27.0-31.2); Mean Corpuscular Volume 88.2 fl (81-99); Nucleated Red Blood Cells % 0 %; Platelet Count 263 K/mm3 (142-424); Red Blood Count 2.87 M/mm3 (4.20-5.40); Red Cell Distribution Width-SD 56.8 fL; White Blood Count 9.8 K/mm3 (4.8-10.8)
[2025-04-03 07:33] VITALS: BP 162/65; PULSE 61; RESP 22; TEMP 37; O2SAT 95
[2025-04-03] MEDS: HYDRALAZINE HCL 25MG TABLET 50 MG PO ×3 (08:01→20:13)
[2025-04-03] MEDS: INSULIN GLARGINE 100 UNITS/ML 3ML FLEXPEN 10 UNIT SUBCUT (08:01)
[2025-04-03] MEDS: ASPIRIN EC 81MG TABLET 81 MG PO (08:02)
[2025-04-03] MEDS: METOPROLOL SUCCINATE XL 25MG TABLET 25 MG PO (08:02)
[2025-04-03] MEDS: CLOPIDOGREL 75MG TAB 75 MG PO (08:02)
[2025-04-03] MEDS: CALCIUM POLYCARBOPHIL 625MG TAB 1250 MG PO ×2 (08:02→16:50)
[2025-04-03] MEDS: LACTOBACILLUS PROBIOTIC COMB CAPSULE 1 CAP PO (08:02)
[2025-04-03] MEDS: ISOSORBIDE MONO 60MG TAB.ER.24H 60 MG PO (08:02)
[2025-04-03] MEDS: SPIRONOLACTONE 25MG TABLET 25 MG PO (08:02)
[2025-04-03] MEDS: BUMETANIDE 1MG/4ML VIAL 2 MG IV ×2 (08:07→16:09)
[2025-04-03 08:09] LABS: Chloride 106 mmol/L (98-107)
[2025-04-03 08:10] LABS: Albumin Level 2.8 g/dl (3.5-5.0); Potassium 4.5 mmoL/L (3.5-5.1); Sodium 138 mmol/L (136-145)
[2025-04-03 08:12] LABS: Anion Gap 14.5 mEq/L (5-15); Carbon Dioxide 22 mmol/L (22.0-30.0)
[2025-04-03 08:13] LABS: Alanine Aminotransferase 9 U/L (12-78); Albumin/Globulin Ratio 1.0 (1.1-1.8); Alkaline Phosphatase 72 U/L (38-126); Aspartate Amino Transferase 15 U/L (14-36); Calcium 8.2 mg/dl (8.4-10.2); Globulin 2.7 g/dL (1.3-3.2); Glucose 97 mg/dl (74-100); Magnesium 1.7 mg/dl (1.6-2.3); Total Protein,Serum 5.5 g/dl (6.3-8.2)
[2025-04-03 08:18] LABS: Blood Urea Nitrogen 61 mg/dl (7-17); Creatinine Clearance Estimated 20 mL/min (50-200); Creatinine,Serum 3.20 mg/dl (0.52-1.04); Estimated Glomerular Filt Rate 14 ml/min (>60); GFR (African American) 17 ML/MIN (>60)
[2025-04-03 08:24] LABS: POC Glucose,Bedside 161 gm/dL (70-110)
[2025-04-03 08:29] LABS: Bilirubin,Total < 0.1 mg/dl (0.2-1.3)
[2025-04-03 10:49] LABS: POC Glucose,Bedside 133 gm/dL (70-110)
[2025-04-03 11:29] VITALS: BP 147/55; PULSE 62; RESP 20; TEMP 37; O2SAT 95
--- NOTE | 2025-04-03 12:20 | EXP.ACUTE.PN ---
Subjective *Date: 04/03/25 *Time: 14:27 Interval history: Reports feeling little better today. Got up to the chair yesterday. Diarrhea slowing. Stable on room air. No nausea or vomiting. Negative greater than 1 L in the past 24 hours. Medical Exam Vital signs and Labs for Last 24 Hours: Vital Signs Temp Pulse Resp BP Pulse Ox O2 Del Method 04/03/25 11:29 98.6 F 62 20 147/55 H 95 Room Air 04/03/25 09:00 Room Air 04/03/25 08:00 Room Air 04/03/25 07:33 98.6 F 61 22 162/65 H 95 Room Air 04/03/25 06:50 Room Air 04/03/25 05:00 Room Air 04/03/25 04:00 98.2 F 63 16 161/66 H 95 Room Air 04/03/25 03:00 Room Air 04/03/25 01:00 Room Air 04/03/25 00:00 98.0 F 59 L 16 156/82 H 96 Room Air 04/02/25 23:00 Room Air 04/02/25 21:00 Room Air 04/02/25 20:00 98.2 F 57 L 16 155/67 H 96 Room Air 04/02/25 20:00 Room Air 04/02/25 18:48 Room Air 04/02/25 17:00 Room Air 04/02/25 16:00 98.2 F 54 L 18 145/60 H 95 Room Air 04/02/25 15:00 Room Air 04/02/25 13:00 Room Air Intake and Output 04/02/25 04/03/25 04/03/25 23:59 07:59 15:59 Intake Total 420 / 1710 469.5 / 759.5 290 / 759.5 Output Total 325 / 3050 2100 / 2450 350 / 2450 Balance 95 / -1340 -1630.5 / -1690.5 -60 / -1690.5 Intake: Intake, Oral Amount 270 / 1110 360 / 600 240 / 600 Intake, Total IV Amount 150 / 600 109.5 / 159.5 50 / 159.5 Bumetanide 10 mg In 0.9 % 100 / 300 59.5 / 59.5 Sodium Chloride 60 ml @ 10 mls/ hr IV .Q10H [facility] Rx#:[id number] Piperacillin/Tazo 2.25 gm In 0. 50 / 200 50 / 100 50 / 100 9 % Sodium Chloride 50 ml @ 100 mls/hr IV Q6H [facility] Rx#:[id number] Output: Output, Urine Amount 325 / 2425 2100 / 2450 350 / 2450 Other: Number of Unmeasured Voids 0 0 Number of Bowel Movements 1 1 Weight 86.183 kg Patient Weight 04/03/25 23:59 Weight 86.183 kg Laboratory Results - last 24 hr 04/02/25 16:43: POC Glucose 139 H 04/02/25 16:45: Sodium 137, Potassium 5.0, Chloride 107, Carbon Dioxide 20 L, Anion Gap 15.0, BUN 60 H, Creatinine 3.00 H, Estimated Creat Clear 22, Estimated GFR 15 L*, Est GFR ( Amer) 18 L*, Glucose 131 H D, Calcium 8.4 04/02/25 20:13: POC Glucose 233 H 04/03/25 05:53: POC Glucose 112 H 04/03/25 06:15: WBC 9.8, RBC 2.87 L, Hgb 8.0 L, Hct 25.3 L, MCV 88.2, MCH 27.9, MCHC 31.6 L, RDW 17.5, Plt Count 263, MPV 9.6, Neut % (Auto) 49.0, Lymph % (Auto) 40.1, [place] % (Auto) 5.8, Eos % (Auto) 4.3, Baso % (Auto) 0.4, Neut # (Auto) 4.8, Lymph # (Auto) 3.9, [place] # (Auto) 0.6, Eos # (Auto) 0.4, Baso # (Auto) 0.0, Sodium 138, Potassium 4.5, Chloride 106, Carbon Dioxide 22, Anion Gap 14.5, BUN 61 H, Creatinine 3.20 H, Estimated Creat Clear 20, Estimated GFR 14 L*, Est GFR ( Amer) 17 L*, Glucose 97 D, Calcium 8.2 L, Magnesium 1.7, Total Bilirubin < 0.1 L, AST 15, ALT 9 L, Alkaline Phosphatase 72, Total Protein 5.5 L, Albumin 2.8 L, Globulin 2.7, Albumin/Globulin Ratio 1.0 L 04/03/25 08:00: POC Glucose 161 H 04/03/25 10:41: POC Glucose 133 H I & O for Labs for Last 24 Hours: Intake & Output 03/31/25 04/01/25 04/02/25 04/03/25 23:59 23:59 23:59 23:59 Intake Total 1273.75 / 1513.75 1580 / 1820 1710 / 1710 759.5 / 759.5 Output Total 850 / 1950 3850 / 3900 2300 / 3050 2450 / 2450 Balance 423.75 / -436.25 -2270 / -2080 -590 / -1340 -1690.5 / -1690.5 Weight 90.01 kg 88.133 kg 87.044 kg 86.183 kg Microbiology Reports for the Last 24 Hours: Microbiology 03/29/25 05:01 Blood Blood Culture - Final NO GROWTH AFTER 5 DAYS 03/29/25 05:01 Blood Blood Culture - Final NO GROWTH AFTER 5 DAYS Constitutional: Present no acute distress, obese, chronically ill appearing and cooperative Head: Present atraumatic and normocephalic ENT: Present normal exam Respiratory: Present normal respiratory effort; Absent rhonchi, wheezes or crackles Cardiac: Present Reg Rate and Rhythm GI: Present soft and normal bowel sounds; Absent distention or tenderness Extremities: Present normal inspection, full ROM and edema (2+ to knees; mild improvement from yesterday.) Skin: Present intact; Absent erythema Comment:: Wounds bandaged, feet wrapped today. Neuro: Present Grossly Intact, alert, awake, oriented x 3 and moves all extremities Assessment and Plan *Assessment and plan (1) CHF (congestive heart failure): Status: Acute Category: Medical Code(s): I50.9 - Heart failure, unspecified (2) Anemia in chronic kidney disease (CKD): Status: Acute Category: Medical Code(s): N18.9 - Chronic kidney disease, unspecified; D63.1 - Anemia in chronic kidney disease (3) Pleural effusion, bilateral: Status: Acute Category: Medical Code(s): J90 - Pleural effusion, not elsewhere classified (4) Cardiorenal syndrome: Status: Acute Category: Medical Code(s): I13.10 - Hypertensive heart and chronic kidney disease without heart failure, with stage 1 through stage 4 chronic kidney disease, or unspecified chronic kidney disease (5) Fluid overload: Status: Acute Category: Medical Code(s): E87.70 - Fluid overload, unspecified (6) Generalized weakness: Status: Acute Category: Medical Code(s): R53.1 - Weakness (7) Diabetic ulcer of right heel associated with diabetes mellitus due to underlying condition, limited to breakdown of skin: Status: Acute Category: Medical Code(s): E08.621 - Diabetes mellitus due to underlying condition with foot ulcer; L97.411 - Non-pressure chronic ulcer of right heel and midfoot limited to breakdown of skin (8) Diabetic ulcer of left heel associated with diabetes mellitus due to underlying condition, limited to breakdown of skin: Status: Acute Category: Medical Code(s): E08.621 - Diabetes mellitus due to underlying condition with foot ulcer; L97.421 - Non-pressure chronic ulcer of left heel and midfoot limited to breakdown of skin (9) (HFpEF) heart failure with preserved ejection fraction: Status: Acute Qualifiers: Heart failure chronicity: acute on chronic Qualified Code(s): I50.33 - Acute on chronic diastolic (congestive) heart failure Category: Medical Code(s): I50.30 - Unspecified diastolic (congestive) heart failure (10) 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 Qualifiers: Diabetes mellitus retirement insulin use: with terminal gauger supervisor use Qualified Code(s): E11.42 - Type 2 diabetes mellitus with diabetic polyneuropathy; Z79.4 - custodial (current) use of insulin Category: Medical Code(s): E11.42 - Type 2 diabetes mellitus with diabetic polyneuropathy (11) CLL (chronic lymphocytic leukemia): Status: Chronic Category: Medical Code(s): C91.10 - Chronic lymphocytic leukemia of B-cell type not having achieved remission Plan Mihcelle Davis is a 74-year-old female with a medical history significant for HFpEF on room air, former renal failure requiring temporary dialysis, type 2 diabetes, PAD, diabetic foot ulcers, CLL, hypothyroidism, GERD who presents from home with shortness of breath and progressive bilateral pitting edema. She states lower extremity edema began about 1 to 2 weeks ago, and shortness of breath began a few days ago. Patient had previously been on temporary dialysis at [facility] due to acute renal failure, has and dialysis dependent for several months. Endorses intermittent clear productive phlegm but denies chest pain, fever/chills, abdominal pain. Does not take any diuretics at this time. Workup in the ED significant for VBG pH 7.33, pCO2 86.7, bicarb 41, BNP 625, UA grossly abnormal, CT abdomen revealing moderate left pleural effusion and small right pleural effusion. CXR confirms this. On room air. Given IV Lasix 40 mg, DuoNebs, IV magnesium in the ED. Though VBG pH is compensated, patient has significant hypercapnia and pH low normal concerning for hypoventilation from pleural effusion. Given these findings, ED provider and I discussed case and I decided to admit patient for suspected HFpEF exacerbation, symptomatic pleural effusion. Continuing diuresis. Responding to Bumex drip. Negative over 3 L during admission. Pulmonology and cardiology continue to assist with care. Problems addressed as follows: #HFpEF exacerbation #Bilateral pleural effusions #Hypercapnia RANDY CKD 4 ? Presented with progressive lower extremity edema, shortness of breath. ? Discontinue Bumex drip. Transition to IV 2 mg Bumex twice daily and monitor for response - Anderson removed today - Kidney function has slowly crept up during admission but is relatively flat over the past 24 to 36 hours. Creatinine 3.2, BUN 61. - Kidney function relatively stable, BUN 58, creatinine 3.1, has increased 0.3 points in the past 36 hours. - Albumin 2.8. Continue supplementation with Pro-Stat/boost - Potassium 4.5, magnesium 1.7. Repeat CBC, CMP, magnesium ordered for the morning. Repeat BMP ordered for the evening - DuoNebs every 6 hours scheduled. ? Echo showing normal BiV function. Small pericardial effusion less than 0.3 cm. No evidence of tamponade or indication of need for drainage. - Baseline creatinine consistent at about 1.8-2 - Reviewed patient's records from previous transfer in November to [facility]. At that time she saw nephrology, was diagnosed with diabetic nephropathy. Also diagnosed with end-stage renal disease. Underwent 3 times a week dialysis even after discharge to nursing facility. Kidney function improved and she was discontinued on dialysis but is yet to follow-up with nephrology. Will need referral back to nephrology prior to discharge due to her CKD 4 and previous end-stage with dialysis. May very well need dialysis again in the future if unable to manage fluid status with medications #UTI: Urinalysis positive for Klebsiella and E. coli. Continue current antibiotic with Zosyn renally dosed at 2.25 g every 6 hours. Will consider de-escalating to Levaquin at discharge. #Type 2 diabetes: Repeat A1c this visit 5.3. LDSSI, ACHS glucose checks. #PAD #CAD ? Abnormal Lexiscan in December 2024, with known significant PAD. -Had PCI performed to right tibial artery on 12/17/2024 earlier this year per my review of records from [facility] ? Cardiology was planning for outpatient staged LHC and peripheral revascularizations. ? Continue aspirin. Holding statin due to intolerance #Hypothyroidism: Continue home levothyroxine 88 mcg daily #Hypertension: Continue hydralazine 50 mg 3 times a day, isosorbide mononitrate 60 mg daily, metoprolol succinate 25 mg daily, and nifedipine 60 mg daily. #GERD: Continue PPI. Decubitus wounds of heels/diabetic ulcers of heels. Present on admission. Podiatry consulted. Debridement performed 03/30. Previous cultures were polymicrobial with staph, E. coli, E faecalis. Received antibiotics back in December when she was admitted and then transferred. - Current culture positive for E. coli and staph. Will continue current antibiotics. - Previously completed antibiotics at outside facility per chart review. Received appropriate course based on cultures identified above. Acute on chronic anemia from chronic kidney disease: Hemoglobin responded well to transfusion. Stable at 8.0 today. Transfusion threshold hemoglobin less than 7. Repeat hemoglobin level ordered for the morning. Continuing to work with therapy, will need placement for rehab. Full code DVT prophylaxis: avoid SCDs due to severe PAD., Lovenox subcu 30 mg daily Diabetic diet
[2025-04-03 15:48] VITALS: BP 129/56; PULSE 52; RESP 16; TEMP 36.7; O2SAT 97
[2025-04-03] MEDS: MAGNESIUM SULFATE IN WATER 2 GM/50 ML PIGGYBACK IV ×2 (16:09→17:11)
--- NOTE | 2025-04-03 16:23 | PC.NURSE ---
notified MD of mag 1.7 and creat clearance 20. stated to follow electrolyte protocol
[2025-04-03 16:27] LABS: POC Glucose,Bedside 218 gm/dL (70-110)
[2025-04-03] MEDS: humaLOG 100 UNITS/ML 10ML VIAL (SSI) SUBCUT ×2 (16:46→20:13)
[2025-04-03] MEDS: ACETAMINOPHEN 325MG TAB 650 MG PO (16:57)
--- NOTE | 2025-04-03 17:21 | PC.NURSE ---
A/Ox4, remains on RA. [place] d/c per , PW in place, patient has voided since [place] removal. IV mag infusing per electrolyte protocol. currently up to chair with BLE elevated eating dinner. pillows used for repositioning and elevation of BLE. receiving IV ABX. no needs at this time. call light within reach
--- NOTE | 2025-04-03 18:13 | PC.NURSE ---
bilateral heel DSG change completed per order at 1745. patient tolerated well.
[2025-04-03 18:36] LABS: Anion Gap 16.2 mEq/L (5-15); Blood Urea Nitrogen 60 mg/dl (7-17); Calcium 8.3 mg/dl (8.4-10.2); Carbon Dioxide 20 mmol/L (22.0-30.0); Chloride 105 mmol/L (98-107); Creatinine Clearance Estimated 20 mL/min (50-200); Creatinine,Serum 3.30 mg/dl (0.52-1.04); Estimated Glomerular Filt Rate 14 ml/min (>60); GFR (African American) 16 ML/MIN (>60); Glucose 192 mg/dl (74-100); Potassium 5.2 mmoL/L (3.5-5.1); Sodium 136 mmol/L (136-145)
[2025-04-03 20:00] VITALS: BP 131/56; PULSE 52; RESP 16; TEMP 36.6; O2SAT 97
[2025-04-03 20:02] LABS: POC Glucose,Bedside 225 gm/dL (70-110)
[2025-04-03] MEDS: GABAPENTIN 300MG CAPSULE 300 MG PO (20:12)
[2025-04-03] MEDS: PRAVASTATIN 40MG TAB 40 MG PO (20:12)
[2025-04-03] MEDS: MIRTAZAPINE 15 MG TABLET PO (20:13)
[2025-04-04] VITALS: BP 150/66; PULSE 51; RESP 16; TEMP 36.4; O2SAT 98
[2025-04-04] MEDS: PIPERACILLIN/TAZO 2.25 GM in 0.9 % SODIUM CHLORIDE 50 ML IV ×4 (00:46→18:55)
--- NOTE | 2025-04-04 02:36 | PC.NURSE ---
Pt AOx4. Still receiving IVABx. On room air, tolerating well. Tolerating purewick. Currently resting in bed with eyes closed. Respirations even and unlabored. Bed is low, locked, and call light is in reach.
[2025-04-04 04:00] VITALS: BP 122/66; PULSE 50; RESP 16; TEMP 36.5; O2SAT 98; BMI 29.0
[2025-04-04 04:58] LABS: POC Glucose,Bedside 136 gm/dL (70-110)
[2025-04-04] MEDS: LEVOTHYROXINE 88MCG (0.088MG) TAB 88 MCG PO (06:16)
[2025-04-04 06:32] LABS: Hematocrit 27.1 % (37.0-47.0); Hemoglobin 8.1 g/dL (12.2-16.2); Immature Granulocytes % 0.4 %; Mean Corpuscular HGB Conc 29.9 g/dL (31.8-35.4); Mean Corpuscular Hemoglobin 26.9 pg (27.0-31.2); Mean Corpuscular Volume 90.0 fl (81-99); Nucleated Red Blood Cells % 0 %; Platelet Count 269 K/mm3 (142-424); Red Blood Count 3.01 M/mm3 (4.20-5.40); Red Cell Distribution Width-SD 57.8 fL; White Blood Count 10.5 K/mm3 (4.8-10.8)
[2025-04-04 06:40] LABS: Magnesium 2.4 mg/dl (1.6-2.3)
[2025-04-04 07:35] VITALS: BP 118/76; PULSE 55; RESP 18; TEMP 36.4; O2SAT 98
[2025-04-04] MEDS: PRO-STAT AWC 30ML LIQUID PACKET 30 ML PO (08:23)
[2025-04-04] MEDS: ASPIRIN EC 81MG TABLET 81 MG PO (08:23)
[2025-04-04] MEDS: SPIRONOLACTONE 25MG TABLET 25 MG PO (08:23)
[2025-04-04] MEDS: METOPROLOL SUCCINATE XL 25MG TABLET 25 MG PO (08:23)
[2025-04-04] MEDS: HYDRALAZINE HCL 25MG TABLET 50 MG PO ×3 (08:23→20:59)
[2025-04-04] MEDS: CLOPIDOGREL 75MG TAB 75 MG PO (08:23)
[2025-04-04] MEDS: INSULIN GLARGINE 100 UNITS/ML 3ML FLEXPEN 10 UNIT SUBCUT (08:24)
[2025-04-04] MEDS: BUMETANIDE 1MG/4ML VIAL 2 MG IV (08:24)
[2025-04-04] MEDS: CALCIUM POLYCARBOPHIL 625MG TAB 1250 MG PO ×2 (08:24→16:47)
[2025-04-04] MEDS: LACTOBACILLUS PROBIOTIC COMB CAPSULE 1 CAP PO (08:24)
[2025-04-04] MEDS: ISOSORBIDE MONO 60MG TAB.ER.24H 60 MG PO (08:24)
[2025-04-04 08:35] LABS: Chloride 105 mmol/L (98-107)
[2025-04-04 08:36] LABS: Albumin Level 3.0 g/dl (3.5-5.0); Potassium 4.5 mmoL/L (3.5-5.1); Sodium 137 mmol/L (136-145)
[2025-04-04 08:38] LABS: Alanine Aminotransferase 9 U/L (12-78); Aspartate Amino Transferase 14 U/L (14-36); Blood Urea Nitrogen 63 mg/dl (7-17); Creatinine Clearance Estimated 20 mL/min (50-200); Creatinine,Serum 3.30 mg/dl (0.52-1.04); Estimated Glomerular Filt Rate 14 ml/min (>60); GFR (African American) 16 ML/MIN (>60)
[2025-04-04 08:39] LABS: Albumin/Globulin Ratio 1.1 (1.1-1.8); Alkaline Phosphatase 76 U/L (38-126); Anion Gap 15.5 mEq/L (5-15); Calcium 8.3 mg/dl (8.4-10.2); Carbon Dioxide 21 mmol/L (22.0-30.0); Globulin 2.8 g/dL (1.3-3.2); Glucose 122 mg/dl (74-100); Total Protein,Serum 5.8 g/dl (6.3-8.2)
[2025-04-04 08:43] LABS: Bilirubin,Total < 0.1 mg/dl (0.2-1.3)
--- NOTE | 2025-04-04 09:34 | EXP.PULM.PN ---
Subjective *Date: 04/04/25 *Time: 12:15 Interval history: No acute respiratory events overnight. Patient admits continued improvement in her respiratory symptoms Pulmonology Exam Inpatient Vital signs and Labs for Last 24 Hours: Temp Pulse Resp BP Pulse Ox O2 Del Method 97.6 F 55 L 18 118/76 98 Room Air 04/04/25 07:35 04/04/25 07:35 04/04/25 07:35 04/04/25 07:35 04/04/25 07:35 04/04/25 07:35 Laboratory Results - last 24 hr 04/03/25 10:41: POC Glucose 133 H 04/03/25 16:18: POC Glucose 218 H 04/03/25 18:15: Sodium 136, Potassium 5.2 H, Chloride 105, Carbon Dioxide 20 L, Anion Gap 16.2 H, BUN 60 H, Creatinine 3.30 H, Estimated Creat Clear 20, Estimated GFR 14 L*, Est GFR ( Amer) 16 L*, Glucose 192 H D, Calcium 8.3 L 04/03/25 19:49: POC Glucose 225 H 04/04/25 04:49: POC Glucose 136 H 04/04/25 05:24: WBC 10.5, RBC 3.01 L, Hgb 8.1 L, Hct 27.1 L, MCV 90.0, MCH 26.9 L, MCHC 29.9 L, RDW 17.4, Plt Count 269, MPV 9.9, Neut % (Auto) 49.2, Lymph % (Auto) 38.9, [place] % (Auto) 6.5, Eos % (Auto) 4.5, Baso % (Auto) 0.5, Neut # (Auto) 5.2, Lymph # (Auto) 4.1, [place] # (Auto) 0.7, Eos # (Auto) 0.5 H, Baso # (Auto) 0.1, Sodium 137, Potassium 4.5, Chloride 105, Carbon Dioxide 21 L, Anion Gap 15.5 H, BUN 63 H, Creatinine 3.30 H, Estimated Creat Clear 20, Estimated GFR 14 L*, Est GFR ( Amer) 16 L*, Glucose 122 H D, Calcium 8.3 L, Magnesium 2.4 H D, Total Bilirubin < 0.1 L, AST 14, ALT 9 L, Alkaline Phosphatase 76, Total Protein 5.8 L, Albumin 3.0 L, Globulin 2.8, Albumin/Globulin Ratio 1.1 Temp Pulse Resp BP Pulse Ox O2 Del Method 98.2 F 73 19 179/73 H 99 Room Air 03/29/25 08:00 03/29/25 08:00 03/29/25 08:00 03/29/25 08:00 03/29/25 08:00 03/29/25 08:00 Laboratory Results - last 24 hr 03/28/25 21:15: WBC 6.3, RBC 4.89, Hgb 12.2, Hct 40.4, MCV 82.6, MCH 24.9 L, MCHC 30.2 L, RDW 21.7 H, Plt Count 219, MPV 10.4, Neut % (Auto) 89.8 H, Lymph % (Auto) 5.7 L, [place] % (Auto) 2.4, Eos % (Auto) 0.2, Baso % (Auto) 1.1, Neut # (Auto) 5.7, Lymph # (Auto) 0.4 L, [place] # (Auto) 0.2, Eos # (Auto) 0.0, Baso # (Auto) 0.1, Total Counted 100, Neutrophils % (Manual) 63, Band Neutrophils % 30 H, Lymphocytes % (Manual) 2 L, Monocytes % (Manual) 5, D-Dimer 0.86 H, VBG pH 7.33, VBG pCO2 86.7 H, VBG pO2 92.1 H, VBG HCO3 44.4 H, VBG Total CO2 47.0 H, VBG O2 Saturation 97.1 H, VBG Base Excess 18.4 H, VBG Lactic Acid 1.1, Sodium 138, Potassium 5.1, Chloride 92 L, Carbon Dioxide 41 H*, Anion Gap 10.1, BUN 20 H, Creatinine 0.30 L, Estimated Creat Clear 69, Estimated GFR 216, Est GFR ( Amer) 262, Glucose 104 H, Calcium 9.5, Magnesium 1.9, Total Bilirubin 0.3, AST 54 H, ALT 51, Alkaline Phosphatase 82, Troponin I 0.01, NT-Pro-B Natriuret Pep 625 H, Total Protein 6.0 L, Albumin 2.9 L, Globulin 3.1, Albumin/Globulin Ratio 0.9 L, Lipase 37, Acetone Level None detected 03/28/25 22:45: Urine Color Yellow, Urine Appearance Clear, Urine pH 6.0, Ur Specific [place] 1.020, Urine Protein 3+ A, Urine Glucose (UA) Trace, Urine Ketones Negative, Urine Blood 3+ A, Urine Nitrate Positive A, Urine Bilirubin Negative, Urine Urobilinogen 0.2, Ur Leukocyte Esterase 1+ A, Urine RBC 10-20, Urine WBC 10-20, Ur Squamous Epith Cells 3-5, Urine Bacteria 3+ 03/29/25 00:50: Troponin I < 0.01 03/29/25 05:01: WBC 10.7 D, RBC 2.57 L D, Hgb 7.0 L, Hct 23.3 L, MCV 90.7, MCH 27.2, MCHC 30.0 L, RDW 18.5 H, Plt Count 290 D, MPV 9.8, Neut % (Auto) 59.2, Lymph % (Auto) 31.9, [place] % (Auto) 6.0, Eos % (Auto) 2.2, Baso % (Auto) 0.4, Neut # (Auto) 6.3, Lymph # (Auto) 3.4, [place] # (Auto) 0.6, Eos # (Auto) 0.2, Baso # (Auto) 0.0, Sodium 137, Potassium 4.0 D, Chloride 110 H, Carbon Dioxide 21 L, Anion Gap 10.0, BUN 42 H D, Creatinine 1.80 H D, Estimated Creat Clear 36, Estimated GFR 27 L, Est GFR ( Amer) 33 L D, Glucose 145 H D, Calcium 8.3 L, Magnesium 2.2 D, Total Bilirubin 0.2, AST 15 D, ALT 10 L D, Alkaline Phosphatase 82, Total Protein 5.4 L, Albumin 2.7 L, Globulin 2.7, Albumin/Globulin Ratio 1.0 L 03/29/25 05:30: POC Glucose 160 H 03/29/25 07:10: VBG pH 7.34, VBG pCO2 38.6, VBG pO2 75.2 H, VBG HCO3 20.5 L, VBG Total CO2 21.7 L, VBG O2 Saturation 94.8 H, VBG Base Excess -5.2 L, VBG Lactic Acid 2.4 H I & O for Labs for Last 24 Hours: Intake & Output 04/01/25 04/02/25 04/03/25 04/04/25 23:59 23:59 23:59 23:59 Intake Total 1580 / 1820 1710 / 1710 1559.5 / 1559.5 460 / 460 Output Total 3850 / 3900 2300 / 3050 2750 / 2750 700 / 700 Balance -2270 / -2080 -590 / -1340 -1190.5 / -1190.5 -240 / -240 Weight 194 lb 4.8 oz 191 lb 14.4 oz 190 lb 192 lb Intake & Output 03/26/25 03/27/25 03/28/25 03/29/25 23:59 23:59 23:59 23:59 Intake Total 50 / 50 360 / 360 Output Total 500 / 500 Balance 50 / 50 -140 / -140 Weight 200 lb 190 lb 9 oz Microbiology Reports for the Last 24 Hours: Microbiology 03/29/25 05:01 Blood Blood Culture - Final NO GROWTH AFTER 5 DAYS 03/29/25 05:01 Blood Blood Culture - Final NO GROWTH AFTER 5 DAYS Microbiology 03/28/25 22:45 Urine,Clean Catch Urine Culture - Preliminary Constitutional: Present mild distress Head: Present normocephalic and atraumatic ENT: Present normal exam, normal oropharynx and mucous membranes moist Neck: Present normal inspection and full ROM Respiratory: Present normal respiratory effort and able to speak in complete sentences; Absent prolonged expiratory phase, respiratory distress or wheezes Cardiac: Present S1/S2, Tachycardia and radial pulses present GI: Present soft and distention; Absent tenderness or guarding Rectal (female): Present deferred (female): Present deferred Skin: Present intact; Absent cyanosis or jaundice Neuro: Present alert, awake and oriented x 3 Extremities: Present normal inspection and edema; Absent clubbing or cyanosis Psychiatric: Present normal affect and cooperative Assessment and Plan *Assessment and plan (1) Pleural effusion, bilateral: Status: Acute Category: Medical Code(s): J90 - Pleural effusion, not elsewhere classified Plan Ms. Davis is a 74-year-old female never smoker, no prior respiratory complaints, not using any oxygen supplementation or inhaler therapy at with history of heart failure reduced ejection fraction renal dysfunction, previously on dialysis, recently transition off dialysis, type 2 diabetes mellitus hypothyroidism presented to ER with worsening respiratory distress and progressively worsening bilateral lower extremity pulmonary edema and pulmonary was called for further evaluation and management. Denies any subjective fevers or chills but denies any worsening productive phlegm/sputum discoloration Chest x-ray upon admission no dense consolidative/airspace changes noted. Left pleural effusion noted. Increased vascular congestion. CT abdomen showed bilateral pleural effusions small right and moderate left. Blood gas upon admission did not show any evidence of hypoxic/hypercarbic respiratory failure Afebrile. Hemodynamically stable. Mild neutrophilic predominant leukocytosis. Currently receiving nebulization therapies with diuretics and antibiotics including Zosyn. On initial examination does not appear to be in any respiratory distress. No wheezing noted. Decreased breath sounds lower lung [place]. Etiology of this patient's bilateral pleural effusions likely from volume overload. Repeat chest x-ray 03/30/25 improving effusions. Continue to receive diuretics. Interval update No acute respiratory vents overnight. Continue to remain on room air. No need for antibiotics from pulmonary standpoint. Urine cultures growing E. coli and strep intermedius, receiving vancomycin. Blood cultures from admission no growth Plan: [place] 4 times daily as needed Monitor clinically to determine the need for thoracentesis. # Thank you for involving pulmonary in this patient care. Will follow the patient in pulmonary clinic 3 to 4 weeks post discharge
[2025-04-04 09:44] LABS: INR 0.98 (0.9-1.1); Prothrombin Time 10.9 seconds (10.1-12.5)
--- NOTE | 2025-04-04 10:48 | P.PN_ITS ---
<Statement entered by Celso Dominguez MD - 04/08/25 12:05> Agree with plan of care as outlined by the ANESTHESIA ASSISTANT. Subjective *Date: 04/04/25 *Time: 14:37 Interval history: Patient doing well this a.m. Sitting up in bed. Currently awaiting placement, kidney function appears the same as yesterday, creatinine 3.3. Transitioning today to Bumex 2 mg daily. Medical Exam Vital signs and Labs for Last 24 Hours: Vital Signs Temp Pulse Resp BP Pulse Ox O2 Del Method 04/04/25 09:00 Room Air 04/04/25 08:00 Room Air 04/04/25 07:35 97.6 F 55 L 18 118/76 98 Room Air 04/04/25 06:47 Room Air 04/04/25 05:00 Room Air 04/04/25 04:00 97.7 F 50 L 16 122/66 98 Room Air 04/04/25 03:00 Room Air 04/04/25 01:00 Room Air 04/04/25 00:00 97.6 F 51 L 16 150/66 H 98 Room Air 04/03/25 23:00 Room Air 04/03/25 21:00 Room Air 04/03/25 20:00 97.9 F 52 L 16 131/56 L 97 Room Air 04/03/25 20:00 Room Air 04/03/25 18:28 Room Air 04/03/25 17:00 Room Air 04/03/25 15:48 98.1 F 52 L 16 129/56 L 97 Room Air 04/03/25 14:56 Room Air 04/03/25 13:00 Room Air 04/03/25 11:29 98.6 F 62 20 147/55 H 95 Room Air 04/03/25 11:00 Room Air Intake and Output 04/03/25 04/04/25 04/04/25 23:59 07:59 15:59 Intake Total 510 / 1559.5 50 / 460 410 / 460 Output Total 300 / 2750 700 / 700 Balance 210 / -1190.5 -650 / -240 410 / -240 Intake: Intake, Oral Amount 360 / 1200 360 / 360 Intake, Total IV Amount 150 / 359.5 50 / 100 50 / 100 Magnesium Sulfate in Water 2 gm 100 / 100 In 50 ml @ 50 mls/hr IV Q1H [facility] Rx#:[id number] Piperacillin/Tazo 2.25 gm In 0. 50 / 200 50 / 100 50 / 100 9 % Sodium Chloride 50 ml @ 100 mls/hr IV Q6H [facility] Rx#:[id number] Output: Output, Urine Amount 300 / 2750 700 / 700 Other: Number of Bowel Movements 1 Weight 87.09 kg Patient Weight 04/04/25 23:59 Weight 87.09 kg Laboratory Results - last 24 hr 04/03/25 10:41: POC Glucose 133 H 04/03/25 16:18: POC Glucose 218 H 04/03/25 18:15: Sodium 136, Potassium 5.2 H, Chloride 105, Carbon Dioxide 20 L, Anion Gap 16.2 H, BUN 60 H, Creatinine 3.30 H, Estimated Creat Clear 20, Estimated GFR 14 L*, Est GFR ( Amer) 16 L*, Glucose 192 H D, Calcium 8.3 L 04/03/25 19:49: POC Glucose 225 H 04/04/25 04:49: POC Glucose 136 H 04/04/25 05:24: WBC 10.5, RBC 3.01 L, Hgb 8.1 L, Hct 27.1 L, MCV 90.0, MCH 26.9 L, MCHC 29.9 L, RDW 17.4, Plt Count 269, MPV 9.9, Neut % (Auto) 49.2, Lymph % (Auto) 38.9, [place] % (Auto) 6.5, Eos % (Auto) 4.5, Baso % (Auto) 0.5, Neut # (Auto) 5.2, Lymph # (Auto) 4.1, [place] # (Auto) 0.7, Eos # (Auto) 0.5 H, Baso # (Auto) 0.1, Sodium 137, Potassium 4.5, Chloride 105, Carbon Dioxide 21 L, Anion Gap 15.5 H, BUN 63 H, Creatinine 3.30 H, Estimated Creat Clear 20, Estimated GFR 14 L*, Est GFR ( Amer) 16 L*, Glucose 122 H D, Calcium 8.3 L, Magnesium 2.4 H D, Total Bilirubin < 0.1 L, AST 14, ALT 9 L, Alkaline Phosphatase 76, Total Protein 5.8 L, Albumin 3.0 L, Globulin 2.8, Albumin/Globulin Ratio 1.1 04/04/25 09:18: PT 10.9, INR 0.98 I & O for Labs for Last 24 Hours: Intake & Output 04/01/25 04/02/25 04/03/25 04/04/25 23:59 23:59 23:59 23:59 Intake Total 1580 / 1820 1710 / 1710 1559.5 / 1559.5 460 / 460 Output Total 3850 / 3900 2300 / 3050 2750 / 2750 700 / 700 Balance -2270 / -2080 -590 / -1340 -1190.5 / -1190.5 -240 / -240 Weight 88.133 kg 87.044 kg 86.183 kg 87.09 kg Constitutional: Present no acute distress, obese, chronically ill appearing and cooperative Head: Present atraumatic and normocephalic ENT: Present normal exam Neck: Present normal inspection Respiratory: Present normal respiratory effort; Absent rhonchi, wheezes or crackles Cardiac: Present Reg Rate and Rhythm GI: Present soft and normal bowel sounds; Absent distention or tenderness (female): Present deferred Extremities: Present normal inspection, full ROM and edema (2+ to knees; mild improvement from yesterday.) Skin: Present intact; Absent erythema Comment:: Wounds bandaged, feet wrapped today. Neuro: Present Grossly Intact, alert, awake, oriented x 3 and moves all extremities Assessment and Plan *Assessment and plan (1) CHF (congestive heart failure): Status: Acute Category: Medical Code(s): I50.9 - Heart failure, unspecified (2) Anemia in chronic kidney disease (CKD): Status: Acute Category: Medical Code(s): N18.9 - Chronic kidney disease, unspecified; D63.1 - Anemia in chronic kidney disease (3) Pleural effusion, bilateral: Status: Acute Category: Medical Code(s): J90 - Pleural effusion, not elsewhere classified (4) Cardiorenal syndrome: Status: Acute Category: Medical Code(s): I13.10 - Hypertensive heart and chronic kidney disease without heart failure, with stage 1 through stage 4 chronic kidney disease, or unspecified chronic kidney disease (5) Fluid overload: Status: Acute Category: Medical Code(s): E87.70 - Fluid overload, unspecified (6) Generalized weakness: Status: Acute Category: Medical Code(s): R53.1 - Weakness (7) Diabetic ulcer of right heel associated with diabetes mellitus due to underlying condition, limited to breakdown of skin: Status: Acute Category: Medical Code(s): E08.621 - Diabetes mellitus due to underlying condition with foot ulcer; L97.411 - Non-pressure chronic ulcer of right heel and midfoot limited to breakdown of skin (8) Diabetic ulcer of left heel associated with diabetes mellitus due to underlying condition, limited to breakdown of skin: Status: Acute Category: Medical Code(s): E08.621 - Diabetes mellitus due to underlying condition with foot ulcer; L97.421 - Non-pressure chronic ulcer of left heel and midfoot limited to breakdown of skin (9) (HFpEF) heart failure with preserved ejection fraction: Status: Acute Qualifiers: Heart failure chronicity: acute on chronic Qualified Code(s): I50.33 - Acute on chronic diastolic (congestive) heart failure Category: Medical Code(s): I50.30 - Unspecified diastolic (congestive) heart failure (10) 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 Qualifiers: Diabetes mellitus terminal system operator insulin use: with assisted use Qualified Code(s): E11.42 - Type 2 diabetes mellitus with diabetic polyneuropathy; Z79.4 - [facility]CF (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 She states lower extremity edema began about 1 to 2 weeks ago, and shortness of breath began a few days ago. Patient had previously been on temporary dialysis at [facility] due to acute renal failure, has and dialysis dependent for several months. Endorses intermittent clear productive phlegm but denies chest pain, fever/chills, abdominal pain. Does not take any diuretics at this time. Workup in the ED significant for VBG pH 7.33, pCO2 86.7, bicarb 41, BNP 625, UA grossly abnormal, CT abdomen revealing moderate left pleural effusion and small right pleural effusion. CXR confirms this. On room air. Given IV Lasix 40 mg, DuoNebs, IV magnesium in the ED. Though VBG pH is compensated, patient has significant hypercapnia and pH low normal concerning for hypoventilation from pleural effusion. Given these findings, ED provider and I discussed case and I decided to admit patient for suspected HFpEF exacerbation, symptomatic pleural effusion. Continuing diuresis. Responding to Bumex drip. Negative over 3 L during admission. Pulmonology and cardiology continue to assist with care. Problems addressed as follows: #HFpEF exacerbation #Bilateral pleural effusions #Hypercapnia RANDY CKD 4 ? Presented with progressive lower extremity edema, shortness of breath. ? Discontinue Bumex drip. Transition to Bumex 2 mg once daily, monitoring for response. - Kidney function has slowly crept up during admission but is relatively flat over the past 24 to 36 hours. Creatinine today 3.3. - Kidney function relatively stable, BUN 63, creatinine 3.3, has increased 0.3 points in the past 72 hours. Baseline creatinine consistent at about 1.8-2 - Albumin 3.0. Continue supplementation with Pro-Stat/boost - Potassium 4.5, magnesium 2.4. Repeat CBC, CMP, magnesium ordered for the yoselin [place]. - DuoNebs every 6 hours scheduled. ? Echo showing normal BiV function. Small pericardial effusion less than 0.3 cm. No evidence of tamponade or indication of need for drainage. - Reviewed patient's records from previous transfer in November to [facility]. At that time she saw nephrology, was diagnosed with diabetic nephropathy. Also diagnosed with end-stage renal disease. Underwent 3 times a week dialysis even after discharge to nursing facility. Kidney function improved and she was discontinued on dialysis but is yet to follow-up with nephrology. Will need referral back to nephrology prior to discharge due to her CKD 4 and previous end-stage with dialysis. May very well need dialysis again in the future if unable to manage fluid status with medications #UTI: Urinalysis positive for Klebsiella and E. coli. Continue current antibiotic with Zosyn renally dosed at 2.25 g every 6 hours. Will consider de- escalating to Levaquin at discharge. #Type 2 diabetes: Repeat A1c this visit 5.3. LDSSI, ACHS glucose checks. #PAD #CAD ? Abnormal Lexiscan in December 2024, with known significant PAD. -Had PCI performed to right tibial artery on 12/17/2024 earlier this year per my review of records from [facility] ? Cardiology was planning for outpatient staged LHC and peripheral revascularizations. ? Continue aspirin. Holding statin due to intolerance #Hypothyroidism: Continue home levothyroxine 88 mcg daily #Hypertension: Continue hydralazine 50 mg 3 times a day, isosorbide mononitrate 60 mg daily, metoprolol succinate 25 mg daily, and nifedipine 60 mg daily. #GERD: Continue PPI. Decubitus wounds of heels/diabetic ulcers of heels. Present on admission. Podiatry consulted. Debridement performed 03/30. Previous cultures were polymicrobial with staph, E. coli, E faecalis. Received antibiotics back in December when she was admitted and then transferred. - Current culture positive for E. coli and staph. Will continue with Zosyn every 6 hours and additionally adding vancomycin IV for staph coverage. - Previously completed antibiotics at outside facility per chart review. Received appropriate course based on cultures identified above. Acute on chronic anemia from chronic kidney disease: Hemoglobin responded well to transfusion. Stable at 8.1 today. Transfusion threshold hemoglobin less than 7. Repeat hemoglobin level ordered for the morning. Continuing to work with therapy, will need placement for rehab. Full code DVT prophylaxis: avoid SCDs due to severe PAD., Lovenox subcu 30 mg daily Diabetic diet
--- NOTE | 2025-04-04 10:49 | EXP.PHA.CONS ---
Pharmacy Consult Date: 04/04/25 Time: 10:49 Referring provider: JERRI BULLARD APRN Reason for Consult:: VANCOMYCIN DOSING CONSULT Allergies Allergy/AdvReac Type Severity Reaction Status Date / Time moxifloxacin Allergy Severe S-ANAPHYLAX Verified 01/26/25 10:32 IS Sulfa (Sulfonamide Allergy Mild NA-NAUSEA/V Verified 01/26/25 10:32 Antibiotics) OMITING atorvastatin AdvReac Severe Other Verified 01/26/25 10:32 Home Medications ?Medication ?Instructions ?Recorded ?Confirmed ?Type nifedipine 60 mg tablet,extended 60 mg PO DAILY 12/29/24 03/29/25 History release mirtazapine 15 mg tablet (Remeron) 15 mg PO HS 01/26/25 03/29/25 History clopidogrel 75 mg tablet 75 mg PO DAILY #90 tabs 02/11/25 03/29/25 Rx isosorbide mononitrate 60 mg 60 mg PO DAILY #90 tabs 02/11/25 03/29/25 Rx tablet,extended release 24 hr pen needle, diabetic 31 gauge x #100 ea 02/11/25 03/29/25 Rx 5/16 (Ultra-Fine Pen Needle) valsartan 160 mg tablet 160 mg PO DAILY #90 tabs 02/11/25 03/29/25 Rx gabapentin 300 mg capsule 300 mg PO HS #90 caps 03/17/25 03/29/25 Rx levothyroxine 88 mcg tablet 88 mcg PO DAILY #90 tabs 03/17/25 03/29/25 Rx atorvastatin 40 mg tablet 40 mg PO HS 03/29/25 03/29/25 History bumetanide 1 mg tablet 1 mg PO DAILY 03/29/25 03/29/25 History insulin glargine 100 unit/mL (3 10 unit SQ DAILY Diabetes 03/29/25 03/29/25 History mL) subcutaneous pen New Prescriptions to Start Prescriptions: Height: 1.73 m Weight: 87.09 kg Laboratory Results:: Laboratory Results - last 24 hr 04/03/25 10:41: POC Glucose 133 H 04/03/25 16:18: POC Glucose 218 H 04/03/25 18:15: Sodium 136, Potassium 5.2 H, Chloride 105, Carbon Dioxide 20 L, Anion Gap 16.2 H, BUN 60 H, Creatinine 3.30 H, Estimated Creat Clear 20, Estimated GFR 14 L*, Est GFR ( Amer) 16 L*, Glucose 192 H D, Calcium 8.3 L 04/03/25 19:49: POC Glucose 225 H 04/04/25 04:49: POC Glucose 136 H 04/04/25 05:24: WBC 10.5, RBC 3.01 L, Hgb 8.1 L, Hct 27.1 L, MCV 90.0, MCH 26.9 L, MCHC 29.9 L, RDW 17.4, Plt Count 269, MPV 9.9, Neut % (Auto) 49.2, Lymph % (Auto) 38.9, [place] % (Auto) 6.5, Eos % (Auto) 4.5, Baso % (Auto) 0.5, Neut # (Auto) 5.2, Lymph # (Auto) 4.1, [place] # (Auto) 0.7, Eos # (Auto) 0.5 H, Baso # (Auto) 0.1, Sodium 137, Potassium 4.5, Chloride 105, Carbon Dioxide 21 L, Anion Gap 15.5 H, BUN 63 H, Creatinine 3.30 H, Estimated Creat Clear 20, Estimated GFR 14 L*, Est GFR ( Amer) 16 L*, Glucose 122 H D, Calcium 8.3 L, Magnesium 2.4 H D, Total Bilirubin < 0.1 L, AST 14, ALT 9 L, Alkaline Phosphatase 76, Total Protein 5.8 L, Albumin 3.0 L, Globulin 2.8, Albumin/Globulin Ratio 1.1 04/04/25 09:18: PT 10.9, INR 0.98 Medical History: Medical History (Updated 03/30/25 @ 10:32 by FADI Gomes) Pleural effusion, bilateral Atypical angina Fatigue Abnormal findings on diagnostic imaging of heart and coronary circulation Other forms of dyspnea Edema Dialysis patient SOB (shortness of breath) Essential hypertension CLL (chronic lymphocytic leukemia) CKD (chronic kidney disease) Type 2 diabetes mellitus with diabetic polyneuropathy Hypertension (HFpEF) heart failure with preserved ejection fraction Peripheral arterial occlusive disease Hyperlipidemia CKD (chronic kidney disease) stage 4, GFR 15-29 ml/min Elevated BUN Callus of foot Hypervolemia Leukocytosis UTI (urinary tract infection) Urinary tract infectious disease Sepsis without septic shock Noncompliance Acute kidney injury superimposed on chronic kidney disease Diabetic foot ulcer Sinusitis Hyperkalemia Urinary tract infection Hyperkalemia High anion gap metabolic acidosis Renal failure Falls frequently Viral URI with cough Skin infection, bacterial Avulsed toenail Ulcer of right great toe due to diabetes mellitus Frequent falls Statin intolerance Hyperlipidemia Bradycardia Syncope and collapse Syncope Falls Neuropathy Osteopenia Onychodystrophy Pain of toe of right foot Fracture of second toe, right, closed Edema of toe Acquired hammer toe Closed rib fracture Fall Hyperglycemia due to type 2 diabetes mellitus Bacteremia due to Klebsiella pneumoniae UTI due to Klebsiella species Gram-negative bacteremia DKA (diabetic ketoacidoses) Hyperglycemia due to type 2 diabetes mellitus CLL (chronic lymphocytic leukemia) History of hypertension Diabetes mellitus Assessment and Plan Assessment and plan all Dx Assessment and Plan for all problems:: Pharmacokinetic dosing service Objective: Age: 74 yo Serum creatinine: 3.3 mg/dL Height: 68.1 Inches Weight (kg): 87.09 Assessment: IBW (kg): 64.13 Dosing wt(kg): 87.09 Estimated Creatinine clearance (ml/min): 14.7 CRCL method: Cockcroft and Gault using ibw(default). Drug selected: Vancomycin Vd (liters): 65.3 (factor used: 0.75 L/kg) Otoniel (hr-1): 0.017 Half life (hrs): 40.77 CLvanco=?? 1.110 L/hr Recommended dose: 1250 mg Interval: 48 hrs Infusion time (hrs): 2.0 Predicted peak (mcg/mL): 33.7 Predicted trough (mcg/mL): 15.42 Total body weight is being used for vancomycin dosing. Recommendations: Give Vancomycin 1250 mg q 48 hrs with an expected Cpeak of 33.7 mcg/ml and an expected Ctrough of 15.42 mcg/ml AUC 0-24 /SEBASTIÁN Data: SEBASTIÁN 0.5 mcg/mL:?? AUC/SEBASTIÁN:? 1126.1 SEBASTIÁN 1.0 mcg/mL:?? AUC/SEBASTIÁN:? 563.1 --------- SEBASTIÁN 1.5 mcg/mL:?? AUC/SEBASTIÁN:? 375.4 SEBASTIÁN 2.0 mcg/mL:?? AUC/SEBASTIÁN:? 281.5 Thank you for the consult
[2025-04-04 11:30] VITALS: BP 158/59; PULSE 56; RESP 18; TEMP 36.7; O2SAT 96
[2025-04-04 11:32] LABS: POC Glucose,Bedside 153 gm/dL (70-110)
[2025-04-04] MEDS: VANCOMYCIN/WATER FOR INJ (PEG) 1.25 GM/250 ML PIGGYBACK IV (14:09)
[2025-04-04 16:00] VITALS: BP 131/60; PULSE 55; RESP 18; TEMP 36.6; O2SAT 95
[2025-04-04] MEDS: humaLOG 100 UNITS/ML 10ML VIAL (SSI) SUBCUT ×2 (16:50→20:59)
--- NOTE | 2025-04-04 17:03 | PC.NURSE ---
pt has remained up to the chair for the majority of the shift. abx given per mar. purewick in place draining light yellow urine. no complaints of pain. skin integrity measures in place. no needs at this time. call light within reach.
[2025-04-04 17:39] LABS: POC Glucose,Bedside 200 gm/dL (70-110)
[2025-04-04 20:00] VITALS: BP 125/51; PULSE 52; RESP 14; TEMP 37.1; O2SAT 96
[2025-04-04 20:45] LABS: POC Glucose,Bedside 252 gm/dL (70-110)
[2025-04-04] MEDS: PRAVASTATIN 40MG TAB 40 MG PO (20:58)
[2025-04-04] MEDS: GABAPENTIN 300MG CAPSULE 300 MG PO (20:58)
[2025-04-04] MEDS: MIRTAZAPINE 15 MG TABLET PO (20:58)
[2025-04-05] VITALS: BP 122/56; PULSE 54; RESP 12; TEMP 36.9; O2SAT 96
[2025-04-05] MEDS: PIPERACILLIN/TAZO 2.25 GM in 0.9 % SODIUM CHLORIDE 50 ML IV ×3 (01:38→13:25)
[2025-04-05 04:00] VITALS: BP 127/51; PULSE 50; RESP 12; TEMP 36.8; O2SAT 97; BMI 29.5
[2025-04-05] MEDS: LEVOTHYROXINE 88MCG (0.088MG) TAB 88 MCG PO (06:14)
[2025-04-05 06:20] LABS: Hematocrit 23.9 % (37.0-47.0); Hemoglobin 7.5 g/dL (12.2-16.2); Immature Granulocytes % 0.5 %; Mean Corpuscular HGB Conc 31.4 g/dL (31.8-35.4); Mean Corpuscular Hemoglobin 27.9 pg (27.0-31.2); Mean Corpuscular Volume 88.8 fl (81-99); Nucleated Red Blood Cells % 0 %; Platelet Count 259 K/mm3 (142-424); Red Blood Count 2.69 M/mm3 (4.20-5.40); Red Cell Distribution Width-SD 56.1 fL; White Blood Count 10.6 K/mm3 (4.8-10.8)
[2025-04-05 06:26] LABS: Albumin Level 2.7 g/dl (3.5-5.0); Chloride 104 mmol/L (98-107); Potassium 4.6 mmoL/L (3.5-5.1); Sodium 137 mmol/L (136-145)
[2025-04-05 06:28] LABS: POC Glucose,Bedside 117 gm/dL (70-110)
[2025-04-05 06:29] LABS: Alanine Aminotransferase 9 U/L (12-78); Albumin/Globulin Ratio 1.0 (1.1-1.8); Alkaline Phosphatase 68 U/L (38-126); Anion Gap 15.6 mEq/L (5-15); Aspartate Amino Transferase 12 U/L (14-36); Calcium 8.0 mg/dl (8.4-10.2); Carbon Dioxide 22 mmol/L (22.0-30.0); Globulin 2.7 g/dL (1.3-3.2); Glucose 101 mg/dl (74-100); Total Protein,Serum 5.4 g/dl (6.3-8.2)
[2025-04-05 06:34] LABS: Blood Urea Nitrogen 68 mg/dl (7-17); Creatinine Clearance Estimated 20 mL/min (50-200); Creatinine,Serum 3.30 mg/dl (0.52-1.04); Estimated Glomerular Filt Rate 14 ml/min (>60); GFR (African American) 16 ML/MIN (>60)
[2025-04-05 06:57] LABS: Bilirubin,Total < 0.1 mg/dl (0.2-1.3)
[2025-04-05 07:31] VITALS: BP 138/55; PULSE 57; RESP 18; TEMP 36.9; O2SAT 97
[2025-04-05] MEDS: LACTOBACILLUS PROBIOTIC COMB CAPSULE 1 CAP PO (09:01)
[2025-04-05] MEDS: ASPIRIN EC 81MG TABLET 81 MG PO (09:01)
[2025-04-05] MEDS: PRO-STAT AWC 30ML LIQUID PACKET 30 ML PO (09:01)
[2025-04-05] MEDS: BUMETANIDE 1 MG TABLET PO (09:02)
[2025-04-05] MEDS: CALCIUM POLYCARBOPHIL 625MG TAB 1250 MG PO (09:02)
[2025-04-05] MEDS: METOPROLOL SUCCINATE XL 25MG TABLET 25 MG PO (09:02)
[2025-04-05] MEDS: HYDRALAZINE HCL 25MG TABLET 50 MG PO ×2 (09:03→13:25)
[2025-04-05] MEDS: ISOSORBIDE MONO 60MG TAB.ER.24H 60 MG PO (09:03)
[2025-04-05] MEDS: SPIRONOLACTONE 25MG TABLET 25 MG PO (09:03)
[2025-04-05] MEDS: CLOPIDOGREL 75MG TAB 75 MG PO (09:03)
[2025-04-05] MEDS: INSULIN GLARGINE 100 UNITS/ML 3ML FLEXPEN 10 UNIT SUBCUT (09:04)
[2025-04-05 11:41] LABS: POC Glucose,Bedside 137 gm/dL (70-110)
[2025-04-05 12:00] VITALS: BP 136/66; PULSE 57; RESP 18; TEMP 37.1; O2SAT 96
--- NOTE | 2025-04-05 13:56 | P.PN_ITS ---
<Statement entered by Celso Dominguez MD - 04/08/25 12:04> Agree with plan of care as outlined by the MANAGEMENT ASSISTANT. Subjective *Date: 04/05/25 *Time: 14:14 Interval history: Patient doing well this morning, up to chair. States she is feeling well. Kidney function has remained stable, creatinine 3.3. Decrease Bumex to 1 mg daily. Patient still has 2+ edema bilateral lower extremity to knee. No shortness of breath, on room air. Receiving empiric antibiotics for UTI and heel wounds. Medical Exam Vital signs and Labs for Last 24 Hours: Vital Signs Temp Pulse Resp BP Pulse Ox O2 Del Method 04/05/25 13:00 Room Air 04/05/25 12:00 98.7 F 57 L 18 136/66 96 Room Air 04/05/25 11:00 Room Air 04/05/25 09:00 Room Air 04/05/25 08:00 Room Air 04/05/25 07:31 98.4 F 57 L 18 138/55 L 97 Room Air 04/05/25 05:00 Room Air 04/05/25 04:00 98.2 F 50 L 12 127/51 L 97 Room Air 04/05/25 03:00 Room Air 04/05/25 01:00 Room Air 04/05/25 00:00 98.4 F 54 L 12 122/56 L 96 Room Air 04/04/25 23:00 Room Air 04/04/25 21:00 Room Air 04/04/25 20:00 Room Air 04/04/25 20:00 98.8 F 52 L 14 125/51 L 96 Room Air 04/04/25 18:46 Room Air 04/04/25 17:00 Room Air 04/04/25 16:00 98 F 55 L 18 131/60 95 Room Air 04/04/25 15:00 Room Air Intake and Output 04/04/25 04/05/25 04/05/25 23:59 07:59 15:59 Intake Total 540 / 1530 290 / 820 530 / 820 Output Total 225 / 1375 700 / 700 Balance 315 / 155 -410 / 120 530 / 120 Intake: Intake, Oral Amount 240 / 1080 240 / 720 480 / 720 Intake, Total IV Amount 300 / 450 50 / 100 50 / 100 Piperacillin/Tazo 2.25 gm In 0. 50 / 200 50 / 100 50 / 100 9 % Sodium Chloride 50 ml @ 100 mls/hr IV Q6H [facility] Rx#:[id number] Vancomycin/Water For Inj (Peg) 250 / 250 1.25 gm In 250 ml @ 125 mls/hr IV Q48H [facility] Rx#:[id number] Output: Output, Urine Amount 225 / 1375 700 / 700 Other: Number of Unmeasured Voids 0 Number of Bowel Movements 1 Weight 88.314 kg Patient Weight 04/05/25 23:59 Weight 88.314 kg Laboratory Results - last 24 hr 04/04/25 16:46: POC Glucose 200 H 04/04/25 20:38: POC Glucose 252 H 04/05/25 05:32: WBC 10.6, RBC 2.69 L, Hgb 7.5 L, Hct 23.9 L, MCV 88.8, MCH 27.9, MCHC 31.4 L, RDW 17.4, Plt Count 259, MPV 9.7, Neut % (Auto) 51.1, Lymph % (Auto) 37.1, [place] % (Auto) 6.4, Eos % (Auto) 4.3, Baso % (Auto) 0.6, Neut # ( Auto) 5.4, Lymph # (Auto) 3.9, [place] # (Auto) 0.7, Eos # (Auto) 0.5 H, Baso # (Auto) 0.1, Sodium 137, Potassium 4.6, Chloride 104, Carbon Dioxide 22, Anion Gap 15.6 H, BUN 68 H, Creatinine 3.30 H, Estimated Creat Clear 20, Estimated GFR 14 L*, Est GFR ( Amer) 16 L*, Glucose 101 H, Calcium 8.0 L, Total Bilirubin < 0.1 L, AST 12 L, ALT 9 L, Alkaline Phosphatase 68, Total Protein 5.4 L, Albumin 2.7 L, Globulin 2.7, Albumin/Globulin Ratio 1.0 L 04/05/25 06:11: POC Glucose 117 H 04/05/25 11:33: POC Glucose 137 H I & O for Labs for Last 24 Hours: Intake & Output 04/02/25 04/03/25 04/04/25 04/05/25 23:59 23:59 23:59 23:59 Intake Total 1710 / 1710 1559.5 / 1559.5 1290 / 1530 820 / 820 Output Total 2300 / 3050 2750 / 2750 1375 / 1375 700 / 700 Balance -590 / -1340 -1190.5 / -1190.5 -85 / 155 120 / 120 Weight 87.044 kg 86.183 kg 87.09 kg 88.314 kg Constitutional: Present no acute distress, obese, chronically ill appearing and cooperative Head: Present atraumatic and normocephalic ENT: Present normal exam Neck: Present normal inspection Respiratory: Present normal respiratory effort; Absent rhonchi, wheezes or crackles Cardiac: Present Reg Rate and Rhythm GI: Present soft and normal bowel sounds; Absent distention or tenderness (female): Present deferred Extremities: Present normal inspection, full ROM and edema (2+ to knees; mild improvement from yesterday.) Skin: Present intact; Absent erythema Comment:: Wounds bandaged, feet wrapped today. Neuro: Present Grossly Intact, alert, awake, oriented x 3 and moves all extremities Assessment and Plan *Assessment and plan (1) CHF (congestive heart failure): Status: Acute Category: Medical Code(s): I50.9 - Heart failure, unspecified (2) Anemia in chronic kidney disease (CKD): Status: Acute Category: Medical Code(s): N18.9 - Chronic kidney disease, unspecified; D63.1 - Anemia in chronic kidney disease (3) Pleural effusion, bilateral: Status: Acute Category: Medical Code(s): J90 - Pleural effusion, not elsewhere classified (4) Cardiorenal syndrome: Status: Acute Category: Medical Code(s): I13.10 - Hypertensive heart and chronic kidney disease without heart failure, with stage 1 through stage 4 chronic kidney disease, or unspecified chronic kidney disease (5) Fluid overload: Status: Acute Category: Medical Code(s): E87.70 - Fluid overload, unspecified (6) Generalized weakness: Status: Acute Category: Medical Code(s): R53.1 - Weakness (7) Diabetic ulcer of right heel associated with diabetes mellitus due to underlying condition, limited to breakdown of skin: Status: Acute Category: Medical Code(s): E08.621 - Diabetes mellitus due to underlying condition with foot ulcer; L97.411 - Non-pressure chronic ulcer of right heel and midfoot limited to breakdown of skin (8) Diabetic ulcer of left heel associated with diabetes mellitus due to underlying condition, limited to breakdown of skin: Status: Acute Category: Medical Code(s): E08.621 - Diabetes mellitus due to underlying condition with foot ulcer; L97.421 - Non-pressure chronic ulcer of left heel and midfoot limited to breakdown of skin (9) (HFpEF) heart failure with preserved ejection fraction: Status: Acute Qualifiers: Heart failure chronicity: acute on chronic Qualified Code(s): I50.33 - Acute on chronic diastolic (congestive) heart failure Category: Medical Code(s): I50.30 - Unspecified diastolic (congestive) heart failure (10) 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 Qualifiers: 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 insulin use: with intermediate use Qualified Code(s): E11.42 - Type 2 diabetes mellitus with diabetic polyneuropathy; Z79.4 - assisted (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 She states lower extremity edema began about 1 to 2 weeks ago, and shortness of breath began a few days ago. Patient had previously been on temporary dialysis at [facility] [place] due to acute renal failure, has and dialysis dependent for several months. Endorses intermittent clear productive phlegm but denies chest pain, fever/chills, abdominal pain. Does not take any diuretics at this time. Workup in the ED significant for VBG pH 7.33, pCO2 86.7, bicarb 41, BNP 625, UA grossly abnormal, CT abdomen revealing moderate left pleural effusion and small right pleural effusion. CXR confirms this. On room air. Given IV Lasix 40 mg, DuoNebs, IV magnesium in the ED. Though VBG pH is compensated, patient has significant hypercapnia and pH low normal concerning for hypoventilation from pleural effusion. Given these findings, ED provider and I discussed case and I decided to admit patient for suspected HFpEF exacerbation, symptomatic pleural effusion. Continuing diuresis. Responding to Bumex drip. Negative over 3 L during admission. Pulmonology and cardiology continue to assist with care. Problems addressed as follows: #HFpEF exacerbation #Bilateral pleural effusions #Hypercapnia RANDY CKD 4 ? Presented with progressive lower extremity edema, shortness of breath. ? Discontinue Bumex drip. Transition to Bumex 1 mg once daily, monitoring for response. - Kidney function has slowly crept up during admission but is relatively flat over the past 24 to 36 hours. Creatinine today 3.3. - Kidney function relatively stable, BUN 68, creatinine 3.3, has increased 0.3 points in the past 4 days. Baseline creatinine consistent at about 1.8-2 - Albumin 2.7. Continue supplementation with Pro-Stat/boost. - Potassium 4.6. Repeat CBC, CMP, magnesium ordered for the morning. - DuoNebs every 6 hours scheduled. ? Echo showing normal BiV function. Small pericardial effusion less than 0.3 cm. No evidence of tamponade or indication of need for drainage. - Reviewed patient's records from previous transfer in November to [facility]. At that time she saw nephrology, was diagnosed with diabetic nephropathy. Also diagnosed with end-stage renal disease. Underwent 3 times a week dialysis even after discharge to nursing facility. Kidney function improved and she was discontinued on dialysis but is yet to follow-up with nephrology. Will need referral back to nephrology prior to discharge due to her CKD 4 and previous end-stage with dialysis. May very well need dialysis again in the future if unable to manage fluid status with medications. Appointment made with nephrology in [place] for 04/12/2025 at 1:30 PM. Records faxed to facility. #UTI: Urinalysis positive for Klebsiella and E. coli. Continue current antibiotic with Zosyn renally dosed at 2.25 g every 6 hours. Will consider de- escalating to Levaquin at discharge. #Type 2 diabetes: Repeat A1c this visit 5.3. LDSSI, ACHS glucose checks. #PAD #CAD ? Abnormal Lexiscan in December 2024, with known significant PAD. -Had PCI performed to right tibial artery on 12/17/2024 earlier this year per my review of records from [facility] ? Cardiology was planning for outpatient staged LHC and peripheral revascularizations. ? Continue aspirin. Holding statin due to intolerance #Hypothyroidism: Continue home levothyroxine 88 mcg daily #Hypertension: Continue hydralazine 50 mg 3 times a day, isosorbide mononitrate 60 mg daily, metoprolol succinate 25 mg daily, and nifedipine 60 mg daily. #GERD: Continue PPI. Decubitus wounds of heels/diabetic ulcers of heels. Present on admission. Podiatry consulted. Debridement performed 03/30. Previous cultures were polymicrobial with staph, E. coli, E faecalis. Received antibiotics back in December when she was admitted and then transferred. - Current culture positive for E. coli and staph. Will continue with Zosyn every 6 hours and additionally adding vancomycin IV for staph coverage. - Previously completed antibiotics at outside facility per chart review. Received appropriate course based on cultures identified above. Acute on chronic anemia from chronic kidney disease: Hemoglobin responded well to transfusion. Stable at 7.5. Transfusion threshold hemoglobin less than 7. Repeat hemoglobin level ordered for the morning. Continuing to work with therapy, will need placement for rehab. Awaiting placement at [facility] in [place]. Full code DVT prophylaxis: avoid SCDs due to severe PAD., Lovenox subcu 30 mg daily Diabetic diet
--- NOTE | 2025-04-05 14:48 | P.DS_ITS ---
<Statement entered by Celso Dominguez MD - 04/08/25 12:04> More aggressive diuresis held off due to advanced CKD and worsening renal function. Continue Bumex 1 mg daily. Close follow-up with nephrology to further management CKD and volume status. Agree with plan of care as outlined by the NUCLEAR CONTROL OPERATOR. General Admission date:: 03/29/25 Discharge date: 04/05/25 HPI HPI HPI: Michelle Davis is a 74-year-old female with a medical history significant for HFpEF on room air, former renal failure requiring temporary dialysis, type 2 diabetes, PAD, diabetic foot ulcers, CLL, hypothyroidism, GERD who presents from home with shortness of breath and progressive bilateral pitting edema. She states lower extremity edema began about 1 to 2 weeks ago, and shortness of breath began a few days ago. Patient had previously been on temporary dialysis at [facility] due to acute renal failure, has and dialysis dependent for several months. Endorses intermittent clear productive phlegm but denies chest pain, fever/chills, abdominal pain. Does not take any diuretics at this time. Workup in the ED significant for VBG pH 7.33, pCO2 86.7, bicarb 41, BNP 625, UA grossly abnormal, CT abdomen revealing moderate left pleural effusion and small right pleural effusion. CXR confirms this. On room air. Given IV Lasix 40 mg, DuoNebs, IV magnesium in the ED. Though VBG pH is compensated, patient has significant hypercapnia and pH low normal concerning for hypoventilation from pleural effusion. Given these findings, ED provider and I discussed case and I decided to admit patient for suspected HFpEF exacerbation, symptomatic pleural effusion. Hospital Course Hospital Course Hospital Course: Michelle Davis is a 74-year-old female with a medical history significant for HFpEF on room air, former renal failure requiring temporary dialysis, type 2 diabetes, PAD, diabetic foot ulcers, CLL, hypothyroidism, GERD who presents from home with shortness of breath and progressive bilateral pitting edema. She states lower extremity edema began about 2 weeks ago, and shortness of breath began a few days ago. Patient had previously been on temporary dialysis at [facility] due to acute renal failure, has and dialysis dependent for several months. Endorses intermittent clear productive phlegm but denies chest pain, fever/chills, abdominal pain. Does not take any diuretics at this time. Workup in the ED significant for VBG pH 7.33, pCO2 86.7, bicarb 41, BNP 625, UA grossly abnormal, CT abdomen revealing moderate left pleural effusion and small right pleural effusion. CXR confirms this. On room air. Given IV Lasix 40 mg, DuoNebs, IV magnesium in the ED. Though VBG pH is compensated, patient has significant hypercapnia and pH low normal concerning for hypoventilation from pleural effusion. Given these findings, ED provider and I discussed case and I decided to admit patient for suspected HFpEF exacerbation, symptomatic pleural effusion. Continuing diuresis. Responding to Bumex drip. Negative over 3 L during admission. Pulmonology and cardiology continue to assist with care. Patient was evaluated by PT/OT during admission and recommendations for SNF facility at discharge. Patient has been accepted to [facility]. Care was as follows during admission: #HFpEF exacerbation #Bilateral pleural effusions #Hypercapnia #RANDY #CKD 4 ? Presented with progressive lower extremity edema, shortness of breath. ? Initially started on a Bumex drip and then was transitioned to Bumex 2 mg twice daily IV. Transition to Bumex 1 mg once daily at discharge. - Kidney function relatively stable, BUN 68, creatinine 3.3, has increased 0.3 points in the past 4 days. Baseline creatinine consistent at about 1.8-2 - Albumin 2.7. Continue supplementation with Pro-Stat/boost at discharge. - Potassium 4.6. Repeat lab work in 2 to 3 days (BMP, CBC) ? Echo showing normal BiV function. Small pericardial effusion less than 0.3 cm. No evidence of tamponade or indication of need for drainage. - Reviewed patient's records from previous transfer in November to [facility]. At that time she saw nephrology, was diagnosed with diabetic nephropathy. Also diagnosed with end-stage renal disease. Underwent 3 times a week dialysis even after discharge to nursing facility. Kidney function improved and she was discontinued on dialysis but is yet to follow-up with nephrology. Will need referral back to nephrology prior to discharge due to her CKD 4 and previous end-stage with dialysis. May very well need dialysis again in the future if unable to manage fluid status with medications. Appointment made with Dr. Grayson nephforeign in [place] for 04/12/2025 at 1:30 PM. Records faxed to nephrology office. #UTI: Urinalysis positive for Klebsiella and E. coli. Patient received a total of 7 days of IV Zosyn 2.25 g every 6 hours renally dosed during admission. #Type 2 diabetes: Repeat A1c this visit 5.3%. Continue insulin glargine 10 units subcu daily at discharge. #PAD #CAD ? Abnormal Lexiscan in December 2024, with known significant PAD. ? Had PCI performed to right tibial artery on 12/17/2024 earlier this year per my review of records from [facility]. Continue Plavix 75 mg daily and aspirin 81 mg daily at discharge. ? Cardiology was planning for outpatient staged LHC and peripheral revascularizations. Patient will follow-up with cardiology in 3 to 5 days. ? Continue atorvastatin 40 mg at bedtime at discharge. #Hypothyroidism: Continue home levothyroxine 88 mcg daily at discharge. TSH 01/2025 was 3.61. #Hypertension: Continue hydralazine 50 mg 3 times a day, isosorbide mononitrate 60 mg daily, metoprolol succinate 25 mg daily, and nifedipine 60 mg daily at discharge. #Decubitus wounds of heels/diabetic ulcers of heels ? Present on admission. Podiatry consulted. Debridement performed 03/30. Previous cultures were polymicrobial with staph, E. coli, E faecalis. Received antibiotics back in December when she was admitted and then transferred. - Current culture positive for E. coli and staph. Patient received Zosyn every 6 hours and additionally adding vancomycin IV for staph coverage. - Previously completed antibiotics at outside facility per chart review. Received appropriate course based on cultures identified above. ? Per podiatry recommendation patient should have daily dressing changes. Patient should keep pressure off of heels, weightbearing with postop shoe and walker. Patient will be transition from vancomycin to clindamycin 300 mg 4 times daily for total of 7 days of antibiotics. Patient wound culture grew E. coli and staph intermedius sensitive to Zosyn (patient received course of Zosyn during admission) and clindamycin. #Acute on chronic anemia from chronic kidney disease ?Patient hemoglobin below 7 on admission, received transfusion. Hemoglobin responded well to transfusion. Stable at 7.5. Hemoglobin has remained anywhere from 7-8 during admission. Total time spent on discharge 48 minutes in counseling, documentation, chart review, and direct care with patient. Exam Data for Last 24 hours Vital signs and Labs for Last 24 Hours: Temp Pulse Resp BP Pulse Ox O2 Del Method 98.7 F 57 L 18 136/66 96 Room Air 04/05/25 12:00 04/05/25 12:00 04/05/25 12:00 04/05/25 12:00 04/05/25 12:00 04/05/25 14:34 Laboratory Results - last 24 hr 04/04/25 16:46: POC Glucose 200 H 04/04/25 20:38: POC Glucose 252 H 04/05/25 05:32: WBC 10.6, RBC 2.69 L, Hgb 7.5 L, Hct 23.9 L, MCV 88.8, MCH 27.9, MCHC 31.4 L, RDW 17.4, Plt Count 259, MPV 9.7, Neut % (Auto) 51.1, Lymph % (Auto) 37.1, [place] % (Auto) 6.4, Eos % (Auto) 4.3, Baso % (Auto) 0.6, Neut # (Auto) 5.4, Lymph # (Auto) 3.9, [place] # (Auto) 0.7, Eos # (Auto) 0.5 H, Baso # (Auto) 0.1, Sodium 137, Potassium 4.6, Chloride 104, Carbon Dioxide 22, Anion Gap 15.6 H, BUN 68 H, Creatinine 3.30 H, Estimated Creat Clear 20, Estimated GFR 14 L*, Est GFR ( Amer) 16 L*, Glucose 101 H, Calcium 8.0 L, Total Bilirubin < 0.1 L, AST 12 L, ALT 9 L, Alkaline Phosphatase 68, Total Protein 5.4 L, Albumin 2.7 L, Globulin 2.7, Albumin/Globulin Ratio 1.0 L 04/05/25 06:11: POC Glucose 117 H 04/05/25 11:33: POC Glucose 137 H I & O for Last 24 hours: Intake & Output 04/02/25 04/03/25 04/04/25 04/05/25 23:59 23:59 23:59 23:59 Intake Total 1710 / 1710 1559.5 / 1559.5 1290 / 1530 870 / 870 Output Total 2300 / 3050 2750 / 2750 1375 / 1375 700 / 700 Balance -590 / -1340 -1190.5 / -1190.5 -85 / 155 170 / 170 Weight 87.044 kg 86.183 kg 87.09 kg 88.314 kg Constitutional Constitutional: no acute distress, average body habitus, chronically ill appearing and cooperative Comments: pale *Routine HEENT Exam Head: Present normocephalic Eye: Present PERRL ENT: Present mucous membranes moist *Routine Neck Exam Neck: Present supple and full ROM *Routine Respiratory Exam Respiratory: Present CTA bilaterally, prolonged expiratory phase, normal respiratory effort and able to speak in complete sentences; Absent accessory muscle use, wheezes or crackles *Routine Cardiovascular Exam Cardiovascular: Present RRR, Normal S1 and Normal S2; Absent murmur, gallop or rubs *Routine Abdominal Exam Abdominal: Present soft and normoactive bowel sounds; Absent tenderness or distended *Routine Extremities Exam Extremities: Present pallor; Absent cyanosis or edema Comments: Bilateral lower extremity pitting edema 2+ knee-high *Routine Skin Exam Skin: Present intact; Absent erythema or wounds *Routine Neurological Exam Neurological: Present alert, oriented X3, vision grossly intact, hearing grossly intact and normal speech Routine Psychiatric Exam Psychiatric: Present normal affect and cooperative Results Data Completed and Pending Labs on day of discharge: Labs from last 24 hours 04/05/25 04/05/25 04/05/25 11:33 06:11 05:32 WBC 10.6 RBC 2.69 L Hgb 7.5 L Hct 23.9 L MCV 88.8 MCH 27.9 MCHC 31.4 L RDW 17.4 Plt Count 259 MPV 9.7 Neut % (Auto) 51.1 Lymph % (Auto) 37.1 [place] % (Auto) 6.4 Eos % (Auto) 4.3 Baso % (Auto) 0.6 Neut # (Auto) 5.4 Lymph # (Auto) 3.9 [place] # (Auto) 0.7 Eos # (Auto) 0.5 H Baso # (Auto) 0.1 Sodium 137 Potassium 4.6 Chloride 104 Carbon Dioxide 22 Anion Gap 15.6 H BUN 68 H Creatinine 3.30 H Estimated Creat Clear 20 Estimated GFR 14 L* Est GFR ( Amer) 16 L* Glucose 101 H POC Glucose 137 H 117 H Calcium 8.0 L Total Bilirubin < 0.1 L AST 12 L ALT 9 L Alkaline Phosphatase 68 Total Protein 5.4 L Albumin 2.7 L Globulin 2.7 Albumin/Globulin Ratio 1.0 L 04/04/25 04/04/25 20:38 16:46 WBC RBC Hgb Hct MCV MCH MCHC RDW Plt Count MPV Neut % (Auto) Lymph % (Auto) [place] % (Auto) Eos % (Auto) Baso % (Auto) Neut # (Auto) Lymph # (Auto) [place] # (Auto) Eos # (Auto) Baso # (Auto) Sodium Potassium Chloride Carbon Dioxide Anion Gap BUN Creatinine Estimated Creat Clear Estimated GFR Est GFR ( Amer) Glucose POC Glucose 252 H 200 H Calcium Total Bilirubin AST ALT Alkaline Phosphatase Total Protein Albumin Globulin Albumin/Globulin Ratio Preliminary micro results at discharge 03/30/25 11:50 Wound Culture - Preliminary Foot,Right - Wound Escherichia coli Gram Negative Rods#2 Staphylococcus intermedius DS: Diagnosis Discharge Diagnosis (1) CHF (congestive heart failure): Status: Acute Code(s): I50.9 - Heart failure, unspecified (2) Anemia in chronic kidney disease (CKD): Status: Acute Code(s): N18.9 - Chronic kidney disease, unspecified; D63.1 - Anemia in chronic kidney disease (3) Pleural effusion, bilateral: Status: Acute Code(s): J90 - Pleural effusion, not elsewhere classified (4) Cardiorenal syndrome: Status: Acute Code(s): I13.10 - Hypertensive heart and chronic kidney disease without heart failure, with stage 1 through stage 4 chronic kidney disease, or unspecified chronic kidney disease (5) Fluid overload: Status: Acute Code(s): E87.70 - Fluid overload, unspecified (6) Generalized weakness: Status: Acute Code(s): R53.1 - Weakness (7) Diabetic ulcer of right heel associated with diabetes mellitus due to underlying condition, limited to breakdown of skin: Status: Acute Code(s): E08.621 - Diabetes mellitus due to underlying condition with foot ulcer; L97.411 - Non-pressure chronic ulcer of right heel and midfoot limited to breakdown of skin (8) Diabetic ulcer of left heel associated with diabetes mellitus due to underlying condition, limited to breakdown of skin: Status: Acute Code(s): E08.621 - Diabetes mellitus due to underlying condition with foot ulcer; L97.421 - Non-pressure chronic ulcer of left heel and midfoot limited to breakdown of skin (9) (HFpEF) heart failure with preserved ejection fraction: Status: Acute Code(s): I50.30 - Unspecified diastolic (congestive) heart failure Qualifiers: Heart failure chronicity: acute on chronic Qualified Code(s): I50.33 - Acute on chronic diastolic (congestive) heart failure (10) 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 Code(s): E11.42 - Type 2 diabetes mellitus with diabetic polyneuropathy Qualifiers: Diabetes mellitus buttermilk 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 insulin use: with buttermilk 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 use Qualified Code(s): E11.42 - Type 2 diabetes mellitus with diabetic polyneuropathy; Z79.4 - bed bug exterminator (current) use of insulin (11) CLL (chronic lymphocytic leukemia): Status: Chronic Code(s): C91.10 - Chronic lymphocytic leukemia of B-cell type not having achieved remission Meds Home Medications and Allergies Home Medications ?Medication ?Instructions ?Recorded ?Confirmed ?Type nifedipine 60 mg tablet,extended 60 mg PO DAILY 03/29/25 History release mirtazapine 15 mg tablet (Remeron) 15 mg PO HS 03/29/25 History clopidogrel 75 mg tablet 75 mg PO DAILY #90 tabs 01/2803/29/25 Rx isosorbide mononitrate 60 mg 60 mg PO DAILY #90 tabs 0 02/11/25 03/29/25 Rx tablet,extended release 24 hr pen needle, diabetic 31 gauge x #100 ea 02/11/2503/29 Rx 5/16 (Ultra-Fine Pen Needle) valsartan 160 mg tablet 160 mg PO DAILY #90 tabs 03/29/25 Rx gabapentin 300 mg capsule 300 mg PO HS #90 caps 03/29/25 Rx levothyroxine 88 mcg tablet 88 mcg PO DAILY #90 tabs 0 03/17/25 03/29/25 Rx insulin glargine 100 unit/mL (3 10 unit SQ DAILY Diabe evin 03/29/25 03/29/25 History mL) subcutaneous pen amino acids-protein hydrolysate 17 1 ea PO BID #2,880 mL 04/05/25 Rx gram-100 kcal/30 mL liquid packet (Pro-Stat AWC) aspirin 81 mg tablet,delayed 81 mg PO DAILY #0 tabs Rx release atorvastatin 40 mg tablet 40 mg PO HS 30 days #0 tabs 04/05/25 03/29/25 Rx bumetanide 1 mg tablet 1 mg PO DAILY 30 days #0 tab s 04/05/25 03/29/25 Rx calcium polycarbophil 625 mg 1,250 mg (2 x 625 mg) PO BIDWMEAL 04/05/25 Rx tablet (FiberCon) #0 tabs clindamycin HCl 300 mg capsule 300 mg PO Q6H #20 caps 04/05/25 Rx (Cleocin HCl) hydralazine 25 mg tablet 50 mg (2 x 25 mg) PO TID 30 days 04/05/25 Rx #180 tabs metoprolol succinate 25 mg 25 mg PO DAILY 30 days #30 tabs 04/05/25 Rx tablet,extended release 24 hr spironolactone 25 mg tablet 25 mg PO DAILY 30 days #30 tabs 04/05/25 Rx New Prescriptions to Start Prescriptions: clindamycin HCl [Cleocin HCl] Aleksandra Newberry hydralazine Aleksandra Newberry metoprolol succinate Aleksandra Newberry spironolactone Aleksandra Newberry Allergies Allergy/AdvReac Type Severity Reaction Status Date / Time moxifloxacin Allergy Severe S-ANAPHYLAX Verified 01/26/25 10:32 IS Sulfa (Sulfonamide Allergy Mild NA-NAUSEA/V Verified 01/26/25 10:32 Antibiotics) OMITING atorvastatin AdvReac Severe Other Verified 01/26/25 10:32 Discharge Plan Disposition Patient Disposition: [facility] Condition: Fair Discharge Order Discharge Orders: Discharge Order (Routine); Ordered 04/05/25 Ordered By: Aleksandra Newberry Follow up Plan Follow up with: Albert Cain MD [Primary Care Provider, Medical] - Enter time for follow up Matt Bowman MD [Physician, Pulmonology] - Enter time for follow up Jonathan Malin MD [Staff Physician, Cardiology] - Enter time for follow up Referral Note: 3-5 days Renuka Riddle MD [Referring, Medical] - 04/12/25 1:30 pm Problems: ESRD (end stage renal disease) Prescriptions/Medication Reconciliation: New hydralazine 25 mg Tablet 50 mg PO TID 30 Days Qty: 180 0RF aspirin 81 mg Tablet,Delayed Release (Dr/Ec) 81 mg PO DAILY Qty: 0 0RF calcium polycarbophil [FiberCon] 625 mg Tablet 1,250 mg PO BIDWMEAL Qty: 0 0RF metoprolol succinate 25 mg Tablet Extended Release 24 Hr 25 mg PO DAILY 30 Days Qty: 30 0RF Pro-Stat AWC 17-100 gram-kcal/30 mL Liquid In Packet 1 ea PO BID Qty: 2880 0RF spironolactone 25 mg Tablet 25 mg PO DAILY 30 Days Qty: 30 0RF clindamycin HCl [Cleocin HCl] 300 mg capsule 300 mg PO Q6H Qty: 20 0RF Continued nifedipine 60 mg tablet extended release 60 mg PO DAILY mirtazapine [Remeron] 15 mg tablet 15 mg PO HS clopidogrel 75 mg tablet 75 mg PO DAILY Qty: 90 1RF isosorbide mononitrate 60 mg tablet extended release 24 hr 60 mg PO DAILY Qty: 90 1RF valsartan 160 mg tablet 160 mg PO DAILY Qty: 90 1RF gabapentin 300 mg capsule 300 mg PO HS Qty: 90 0RF levothyroxine 88 mcg tablet 88 mcg PO DAILY Qty: 90 1RF insulin glargine 100 unit/mL (3 mL) insulin pen 10 unit SQ DAILY atorvastatin 40 mg tablet 40 mg PO HS 30 Days Qty: 0 0RF bumetanide 1 mg tablet 1 mg PO DAILY 30 Days Qty: 0 0RF No Action (DME) pen needle, diabetic [Ultra-Fine Pen Needle] 31 gauge x 5/16 needle See Rx Instructions .Route Qty: 100 0RF Rx Instructions: once a day Problem Reconciliation Problems Reviewed?: Yes Patient Discharge Instructions ACTIVITY: Continue current activity and Up with assistance DIET: continue same diet Patient Instructions: Heart Failure, DI for Heart Failure, DI for Urinary Tract Infection (UTI), Catheter-Associated Urinary Tract Infection, WM High Calorie High Protein Diet Recipes, High-Protein Diet Foods List, Stop Light Heart Failure Print Language: American Providers Primary Care Provider: Albert Cain Admit Provider: Celso Dominguez Attending Provider: Celso Dominguez
--- NOTE | 2025-04-05 17:32 | PC.NURSE ---
report called to [facility]. ambulance contacted for transfer. awaiting transfer
--- OUTSIDE RECORDS SUMMARY | 2025-04-14 20:00 | XMS_ITS | Clinical Summary ---
Author Organization Unknown Care Team Providers Care Cloth Opener Hand Name Role Phone GELY PA, ZACHARY Unavailable Unavailable ARMAND PT, ALINA Unavailable Unavailable TAVO LANGUAGE TUTOR, JAI Unavailable Unavailable ELISE OT, ELENO Unavailable Unavailable ANNE RN, KESEHA Unavailable Unavailable JOSE CABRERA, JOSE E Unavailable Unavailable Payers Payer Name Policy Type Policy Number Effective Date Expira tion Date [employer].STEFF.PP[employer].C.AUTH [id number] Problems Condition Name Condition Details Condition Category Status Onset Date Resolution Date Last Treatment Date Treating Clinician Comments TYPE 2 DIABETES MELLITUS W DIABETIC CHRONIC KIDNEY DISEASE Active 01-31 00:00: 00 HYP HRT AND CHR KDNY DIS W HRT FAIL AND STG 1-4/UNSP CHR KDNY Active 01-31 00:00: 00 CHRONIC KIDNEY DISEASE, STAGE 4 (SEVERE) Active 01-31 00:00: 00 HEART FAILURE, UNSPECIFIED Active 01-31 00:00: 00 TYPE 2 DIABETES MELLITUS WITH FOOT ULCER Active 01-28 00:00: 00 NON-PRS CHR ULCER OF RIGHT HEEL AND MIDFT W FAT LAYER EXPOS Active 01-28 00:00: 00 NON-PRS CHR ULCER OF LEFT HEEL AND MIDFOOT W FAT LAYER EXPOS Active 01-28 00:00: 00 TYPE 2 DIABETES MELLITUS WITH HYPERGLYCEMI A Active 01-31 00:00: 00 TYPE 2 DIABETES W DIABETIC PERIPHERAL ANGIOPATH W/O GANGRENE Active 01-28 00:00: 00 ADULT FAILURE TO THRIVE Active 01-31 00:00: 00 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 01-28 00:00: 00 HYPOMAGNESEM IA Active 01-28 00:00: 00 HISTORICAL SITE GUIDE (CURRENT) USE OF INSULIN Active 01-28 00:00: 00 HISTORICAL SITE GUIDE (CURRENT) USE OF ANTITHROMBOT ICS/ANTIPLAT ELETS Active 01-28 00:00: 00 HISTORY OF FALLING Active 01-28 00:00: 00 Allergies, Adverse Reactions, Alerts Allergy Name Allergy Type Status Severity Reaction(s) Onset Date Inactive Date Treating Clinician Comments NO KNOWN ALLERGIES Propensity to adverse reactions Active 02-16 09:41: 56 Medications Ordered Medication Name Filled Medication Name Start Date Stop Date Current Medication? Ordering Clinician Indication Dosage Frequency Signature (SIG) Comments Components cefdinir 300 mg capsule 07-27 00:00: 00 08-31 23:59 :00 No [id number] UTI 1 capsule 2 TIMES DAILY 1 capsule 2 TIMES DAILY (route: oral) Med Classific ation: Anti-Infe ctive Agents hydralazine 25 mg tablet 07-27 00:00: 00 10-21 23:59 :00 No [id number] HYPERTENSIO N 1 tablet 3 TIMES DAILY 1 tablet 3 TIMES DAILY (route: oral) Med Classific ation: Cardiovas cular Therapy Agents clonazepam 1 mg tablet 07-21 00:00: 00 02-10 23:59 :00 No [id number] ANXIETY 1 tablet 3 TIMES DAILY 1 tablet 3 TIMES DAILY (route: oral) Med Classific ation: Central Nervous System Agents gabapentin 400 mg capsule 07-27 00:00: 00 02-10 23:59 :00 No [id number] NERVE PAIN 1 capsule 3 TIMES DAILY 1 capsule 3 TIMES DAILY (route: oral) Med Classific ation: Central Nervous System Agents insulin glargine (U-100) 100 unit/mL (3 mL) subcutaneou s pen 07-27 00:00: 00 02-10 23:59 :00 No [id number] DIABETES 18 unit 2 TIMES DAILY 18 unit 2 TIMES DAILY (route: subcutaneo us) Med Classific ation: Endocrine insulin lispro (U-100) 100 unit/mL subcutaneou s pen 1- 00:00: 00 02-10 23:59 :00 No [id number] DIABETES Per instruc tions 3 TIMES DAILY Per instructio ns 3 TIMES DAILY (route: subcutaneo us) Med Classific ation: Endocrine levothyroxi ne 88 mcg tablet 02-01 00:00: 00 02-10 23:59 :00 No [id number] HYPOTHYROID 1 tablet DAILY 1 tablet DAILY (route: oral) Med Classific ation: Endocrine acetaminoph en 500 mg tablet 02-01 00:00: 00 02-10 23:59 :00 No [id number] PAIN 2 tablet 3 TIMES DAILY 2 tablet 3 TIMES DAILY (route: oral) Med Classific ation: Analgesic , Anti-infl ammatory or Antipyret ic bumetanide 2 mg tablet 09-10 00:00: 00 02-10 23:59 :00 No [id number] DIURETIC 1 tablet 3 TIMES DAILY 1 tablet 3 TIMES DAILY (route: oral) Med Classific ation: Cardiovas cular Therapy Agents cyanocobala min (vit B-12) 1,000 mcg sublingual tablet 09-10 00:00: 00 02-10 23:59 :00 No [id number] SUPPLIMENT 1 tablet DAILY 1 tablet DAILY (route: sublingual ) Med Classific ation: Electroly te Balance-N utritiona l Products hydrocodone 5 mg-acetamin ophen 325 mg tablet 09-10 00:00: 00 02-10 23:59 :00 No [id number] PAIN 1 tablet EVERY 8 HOURS 1 tablet EVERY 8 HOURS (route: oral) Med Classific ation: Analgesic , Anti-infl ammatory or Antipyret ic spironolact one 50 mg tablet 09-10 00:00: 00 02-10 23:59 :00 No [id number] DIURETIC 1 tablet DAILY 1 tablet DAILY (route: oral) Med Classific ation: Cardiovas cular Therapy Agents hydralazine 50 mg tablet 4-24 00:00: 00 02-10 23:59 :00 No [id number] BLOOD PRESSURE 50 mg DAILY 50 mg DAILY (route: oral) Med Classific ation: Cardiovas cular Therapy Agents nifedipine ER 90 mg tablet,exte nded release 4-24 00:00: 00 02-10 23:59 :00 No [id number] BLOOD PRESSURE 90 mg DAILY 90 mg DAILY (route: oral) Med Classific ation: Cardiovas cular Therapy Agents clopidogrel 75 mg tablet 15 00:00: 00 02-15 00:00 :00 No [id number] Per instruc tions Per instructio ns (route: oral) Med Classific ation: Hematolog ical Agents isosorbide mononitrate ER 60 mg tablet,exte nded release 24 hr 02-11 00:00: 00 Yes [id number] HEART 1 tablet DAILY 1 tablet DAILY (route: oral) Med Classific ation: Cardiovas cular Therapy Agents Lantus Solostar U-100 Insulin 100 unit/mL (3 mL) subcutaneou s pen 02-11 00:00: 00 Yes [id number] T2DM 10 unit DAILY 10 unit DAILY (route: subcutaneo us) Med Classific ation: Endocrine levothyroxi ne 88 mcg tablet 02-11 00:00: 00 Yes [id number] THYROID 1 tablet DAILY 1 tablet DAILY (route: oral) Med Classific ation: Endocrine Ultra-Fine Pen Needle 31 gauge x /16 15 00:00: 00 Yes [id number] T2DM Per instruc tions DIRECTED Per instructio ns DIRECTED (route: miscellane ous) Med Classific ation: Medical Supplies and Durable Medical Equipment (DME) valsartan 160 mg tablet 15 00:00: 00 02-15 00:00 :00 No [id number] Per instruc tions Per instructio ns (route: oral) Med Classific ation: Cardiovas cular Therapy Agents gabapentin 300 mg capsule 8-04 00:00: 00 Yes [id number] NERVE PAIN 1 capsule BEDTIME 1 capsule BEDTIME (route: oral) Med Classific ation: Central Nervous System Agents hydrocodone 5 mg-acetamin ophen 325 mg tablet 01-31 00:00: 00 02-15 00:00 :00 No [id number] Per instruc tions Per instructio ns (route: oral) Med Classific ation: Analgesic , Anti-infl ammatory or Antipyret ic atorvastati n 40 mg tablet 01-28 00:00: 00 02-15 00:00 :00 No [id number] Per instruc tions Per instructio ns (route: oral) Med Classific ation: Cardiovas cular Therapy Agents bumetanide 1 mg tablet 01-28 00:00: 00 Yes [id number] EDEMA 1 tablet DAILY 1 tablet DAILY (route: oral) Med Classific ation: Cardiovas cular Therapy Agents clopidogrel 75 mg tablet 01-28 00:00: 00 02-15 00:00 :00 No [id number] Per instruc tions Per instructio ns (route: oral) Med Classific ation: Hematolog ical Agents levothyroxi ne 88 mcg tablet 01-28 00:00: 00 02-15 00:00 :00 No [id number] Per instruc tions Per instructio ns (route: oral) Med Classific ation: Endocrine loperamide 2 mg capsule 01-28 00:00: 00 Yes [id number] DIAHREAH 1 capsule EVERY 6 HOURS 1 capsule EVERY 6 HOURS (route: oral) Med Classific ation: Gastroint estinal Therapy Agents mirtazapine 15 mg tablet 01-28 00:00: 00 Yes [id number] DEPRESSION 1 tablet DAILY 1 tablet DAILY (route: oral) Med Classific ation: Central Nervous System Agents nifedipine ER 60 mg tablet,exte nded release 01-28 00:00: 00 Yes [id number] BLOOD PRESSURE 1 tablet DAILY 1 tablet DAILY (route: oral) Med Classific ation: Cardiovas cular Therapy Agents ondansetron HCl 4 mg tablet 01-28 00:00: 00 Yes [id number] NAUSEA 1 tablet DAILY 1 tablet DAILY (route: oral) Med Classific ation: Gastroint estinal Therapy Agents clonazepam 0.5 mg tablet 01-18 00:00: 00 02-15 00:00 :00 No [id number] Per instruc tions TWICE DAILY NEEDED Per instructio ns TWICE DAILY NEEDED (route: oral) Med Classific ation: Central Nervous System Agents Aspirin Childrens 81 mg chewable tablet 02-15 00:00: 00 Yes [id number] HEART 1 tablet DAILY 1 tablet DAILY (route: oral) Med Classific ation: Hematolog ical Agents Lipitor 40 mg tablet 02-15 00:00: 00 Yes [id number] CHOLESTEROL 1 tablet BEDTIME 1 tablet BEDTIME (route: oral) Med Classific ation: Cardiovas cular Therapy Agents Plavix 75 mg tablet 02-15 00:00: 00 Yes [id number] HEART 1 tablet DAILY 1 tablet DAILY (route: oral) Med Classific ation: Hematolog ical Agents Vital Signs Vital Name Observation Time Observation Value Commen ts Temperature 2025-03-24 12:40:00.000 98.2 [degF] Temperature 2025-03-17 18:12:00.000 97.4 [degF] Temperature 2025-03-09 13:58:00.000 98.3 [degF] Temperature 2025-03-04 14:24:00.000 98.5 [degF] Temperature 2025-03-02 11:27:00.000 97.4 [degF] Temperature 2025-03-01 14:44:00.000 97.6 [degF] Temperature 2025-02-24 13:05:00.000 97.2 [degF] Temperature 2025-02-22 15:04:00.000 97.8 [degF] Temperature 2025-02-22 14:04:00.000 97.8 [degF] Temperature 2025-02-21 13:13:00.000 98.2 [degF] Temperature 2025-02-17 15:45:00.000 97.7 [degF] Temperature 2025-02-15 15:21:00.000 98.9 [degF] BMI (%) 2025-02-15 14:57:35.000 27 kg/m2 Height 2025-02-15 14:57:24.000 68 [in_us] Pulse 2025-03-24 12:40:00.000 68 /min Pulse 2025-03-22 11:43:00.000 67 /min Pulse 2025-03-17 18:12:00.000 64 /min Pulse 2025-03-16 13:11:00.000 98 /min Pulse 2025-03-10 14:36:00.000 66 /min Pulse 2025-03-09 13:58:00.000 64 /min Pulse 2025-03-04 14:24:00.000 62 /min Pulse 2025-03-02 11:27:00.000 60 /min Pulse 2025-03-01 14:44:00.000 64 /min Pulse 2025-02-24 13:05:00.000 60 /min Pulse 2025-02-22 15:04:00.000 69 /min Pulse 2025-02-22 14:04:00.000 69 /min Pulse 2025-02-21 13:13:00.000 64 /min Pulse 2025-02-17 15:45:00.000 66 /min Pulse 2025-02-15 15:21:00.000 72 /min O2 Saturation (%) 2025-03-22 11:43:00.000 97 % O2 Saturation (%) 2025-03-17 18:12:00.000 98 % O2 Saturation (%) 2025-03-16 13:11:00.000 98 % O2 Saturation (%) 2025-03-10 14:36:00.000 97 % O2 Saturation (%) 2025-03-09 13:58:00.000 97 % O2 Saturation (%) 2025-03-04 14:24:00.000 98 % O2 Saturation (%) 2025-03-02 11:27:00.000 98 % O2 Saturation (%) 2025-03-01 14:44:00.000 98 % O2 Saturation (%) 2025-02-24 13:05:00.000 98 % O2 Saturation (%) 2025-02-22 15:04:00.000 97 % O2 Saturation (%) 2025-02-22 14:04:00.000 97 % O2 Saturation (%) 2025-02-17 15:45:00.000 97 % O2 Saturation (%) 2025-02-15 15:21:00.000 95 % Respirations 2025-03-24 12:40:00.000 18 /min Respirations 2025-03-22 11:43:00.000 18 /min Respirations 2025-03-17 18:12:00.000 18 /min Respirations 2025-03-16 13:11:00.000 18 /min Respirations 2025-03-10 14:36:00.000 18 /min Respirations 2025-03-09 13:58:00.000 18 /min Respirations 2025-03-04 14:24:00.000 18 /min Respirations 2025-03-02 11:27:00.000 18 /min Respirations 2025-03-01 14:44:00.000 18 /min Respirations 2025-02-24 13:05:00.000 18 /min Respirations 2025-02-22 15:04:00.000 18 /min Respirations 2025-02-22 14:04:00.000 18 /min Respirations 2025-02-21 13:13:00.000 18 /min Respirations 2025-02-17 15:45:00.000 18 /min Respirations 2025-02-15 15:21:00.000 18 /min Weight (lbs) 2025-02-15 14:57:35.000 178 [lb_av] Systolic Blood Pressure 2025-03-24 12:40:00.000 162 mm [Hg] Systolic Blood Pressure 2025-03-22 12:27:00.000 188 mm [Hg] Systolic Blood Pressure 2025-03-17 18:12:00.000 160 mm [Hg] Systolic Blood Pressure 2025-03-16 13:11:00.000 140 mm [Hg] Systolic Blood Pressure 2025-03-10 14:36:00.000 150 mm [Hg] Systolic Blood Pressure 2025-03-09 13:58:00.000 142 mm [Hg] Systolic Blood Pressure 2025-03-04 14:24:00.000 142 mm [Hg] Systolic Blood Pressure 2025-03-02 11:27:00.000 140 mm [Hg] Systolic Blood Pressure 2025-03-01 14:44:00.000 140 mm [Hg] Systolic Blood Pressure 2025-02-24 13:05:00.000 130 mm [Hg] Systolic Blood Pressure 2025-02-22 15:04:00.000 140 mm [Hg] Systolic Blood Pressure 2025-02-22 14:04:00.000 140 mm [Hg] Systolic Blood Pressure 2025-02-21 13:13:00.000 180 mm [Hg] Systolic Blood Pressure 2025-02-17 15:45:00.000 140 mm [Hg] Systolic Blood Pressure 2025-02-15 15:21:00.000 142 mm [Hg] Diastolic Blood Pressure 2025-03-24 12:40:00.000 91 mm [Hg] Diastolic Blood Pressure 2025-03-22 12:27:00.000 83 mm [Hg] Diastolic Blood Pressure 2025-03-17 18:12:00.000 108 m m[Hg] Diastolic Blood Pressure 2025-03-16 13:11:00.000 80 mm [Hg] Diastolic Blood Pressure 2025-03-10 14:36:00.000 90 mm [Hg] Diastolic Blood Pressure 2025-03-09 13:58:00.000 90 mm [Hg] Diastolic Blood Pressure 2025-03-04 14:24:00.000 72 mm [Hg] Diastolic Blood Pressure 2025-03-02 11:27:00.000 84 mm [Hg] Diastolic Blood Pressure 2025-03-01 14:44:00.000 80 mm [Hg] Diastolic Blood Pressure 2025-02-24 13:05:00.000 84 mm [Hg] Diastolic Blood Pressure 2025-02-22 15:04:00.000 88 mm [Hg] Diastolic Blood Pressure 2025-02-22 14:04:00.000 88 mm [Hg] Diastolic Blood Pressure 2025-02-21 13:13:00.000 90 mm [Hg] Diastolic Blood Pressure 2025-02-17 15:45:00.000 72 mm [Hg] Diastolic Blood Pressure 2025-02-15 15:21:00.000 82 mm [Hg] Plan of Treatment Planned Activity Planned Date Details Comments Future Scheduled Test AGENCY MAY PERFORM A RESUMPTION OF CARE VISIT FOLLOWING ANY HOSPITAL ADMISSION. PT TO EVALUATE, OBSERVE / ASSESS, AND MONITOR, LANGUAGE TUTOR TO OBSERVE AND MONITOR, PROVIDE SKILLED THERAPEUTIC INTERVENTION, ACTIVITY, EDUCATION, AND TRAINING TO ADDRESS; [code = AGENCY MAY PERFORM A RESUMPTION OF CARE VISIT FOLLOWING ANY HOSPITAL ADMISSION. PT TO EVALUATE, OBSERVE / ASSESS, AND MONITOR, LANGUAGE TUTOR TO OBSERVE AND MONITOR, PROVIDE SKILLED THERAPEUTIC INTERVENTION, ACTIVITY, EDUCATION, AND TRAINING TO ADDRESS;] Future Scheduled Test BED MOBILI TY (PT/LANGUAGE TUTOR) [code = BED MOBILITY (PT/LANGUAGE TUTOR)] Future Scheduled Test SIT TO/FRO M STAND TRANSFERS (PT/LANGUAGE TUTOR) [code = SIT TO/FROM STAND TRANSFERS (PT/LANGUAGE TUTOR)] Future Scheduled Test PT/LANGUAGE TUTOR TO PROVIDE GAIT TRAINING FOR IMPROVED MOBILITY AND /OR TO NORMALIZE GAIT PATTERN [code = PT/LANGUAGE TUTOR TO PROVIDE GAIT TRAINING FOR IMPROVED MOBILITY AND /OR TO NORMALIZE GAIT PATTERN] Future Scheduled Test THERAPEUTI C EXERCISES AND ESTABLISHING A HOME EXERCISE PROGRAM (PT/LANGUAGE TUTOR) [code = THERAPEUTIC EXERCISES AND ESTABLISHING A HOME EXERCISE PROGRAM (PT/LANGUAGE TUTOR)] Future Scheduled Test PT/LANGUAGE TUTOR TO IDENTIFY FALL RISK FACTORS; EDUCATE THE PATIENT/CAREGIVER ON WAYS TO REDUCE FALL RISK FACTORS AND ESTABLISH HOME EXERCISE PROGRAM TO MINIMIZE FALL RISK. MAY TEACH THE PATIENT FLOOR RECOVERY WHEN CLINICALLY APPROPRIATE [code = PT/LANGUAGE TUTOR TO IDENTIFY FALL RISK FACTORS; EDUCATE THE PATIENT/CAREGIVER ON WAYS TO REDUCE FALL RISK FACTORS AND ESTABLISH HOME EXERCISE PROGRAM TO MINIMIZE FALL RISK. MAY TEACH THE PATIENT FLOOR RECOVERY WHEN CLINICALLY APPROPRIATE] Future Scheduled Test PT / LANGUAGE TUTOR T O EDUCATE ON DIABETES SELF- MANAGEMENT [code = PT / LANGUAGE TUTOR TO EDUCATE ON DIABETES SELF- MANAGEMENT] Future Scheduled Test PT / LANGUAGE TUTOR T O INSTRUCT PATIENT/CAREGIVER ON RISK FOR HOSPITALIZATION/EMERGENCY ROOM VISITS, TEACH SIGNS AND SYMPTOMS THAT PUT PATIENT AT RISK, WHEN TO NOTIFY NURSE/PHYSICIAN OF COMPLICATIONS/DECLINE, AND WHEN TO CALL 911. [code = PT / LANGUAGE TUTOR TO INSTRUCT PATIENT/CAREGIVER ON RISK FOR HOSPITALIZATION/EMERGENCY ROOM VISITS, TEACH SIGNS AND SYMPTOMS THAT PUT PATIENT AT RISK, WHEN TO NOTIFY NURSE/PHYSICIAN OF COMPLICATIONS/DECLINE, AND WHEN TO CALL 911.] Future Scheduled Test PT / LANGUAGE TUTOR T O MONITOR AND EDUCATE ON OXYGEN SATURATION DURING ADLS/IADLS, NOTIFY PHYSICIAN AND/OR THE RN CLINICAL PRODUCTION POTTER FOR PHYSICIAN NOTIFICATION AND IF O2 SATS BELOW PHYSICIAN ORDERED PARAMETERS AFTER 10 MIN OF REST [code = PT / LANGUAGE TUTOR TO MONITOR AND EDUCATE ON OXYGEN SATURATION DURING ADLS/IADLS, NOTIFY PHYSICIAN AND/OR THE RN CLINICAL PRODUCTION POTTER FOR PHYSICIAN NOTIFICATION AND IF O2 SATS BELOW PHYSICIAN ORDERED PARAMETERS AFTER 10 MIN OF REST] Future Scheduled Test SKILLED NU RSING TO EVALUATE FOR WOUND ASSESSMENT, MEDICATION MANAGEMENT, BS CONTROL. [code = NURSING HOME TO EVALUATE FOR WOUND ASSESSMENT, MEDICATION MANAGEMENT, BS CONTROL.] Future Scheduled Test MEDICAL SO CIAL WORKER TO EVALUATE FOR COMMUNITY SERVICES [code = PESTICIDE USE MEDICAL COORDINATOR TO EVALUATE FOR COMMUNITY SERVICES] Future Scheduled Test HOME HEALT H AGENCY MAY ACCEPT ORDERS FROM THE FOLLOWING PHYSICIANS: DR MILLS [code = HOME HEALTH AGENCY MAY ACCEPT ORDERS FROM THE FOLLOWING PHYSICIANS: DR MILLS] Future Scheduled Test AGENCY MAY PERFORM A RESUMPTION OF CARE VISIT FOLLOWING ANY HOSPITAL ADMISSION. OT TO EVALUATE, OBSERVE / ASSESS, AND MONITOR, DOMINGO TO OBSERVE AND MONITOR, PROVIDE SKILLED THERAPEUTIC INTERVENTION, ACTIVITY, EDUCATION, AND TRAINING TO ADDRESS; IMPROVEMENT OF STRENGTH, ACTIVITY TOLERANCE, BALANCE, FOR SAFE IMPROVED FUNCTIONAL TRANSFERS, FUNCTIONAL MOBILITY AND SELF-CARE PERFORMANCE DRESSING (OT/DOMINGO) ACTIVITIES OF DAILY LIVING (OT/CITY JAILER) BED TRANSFERS (OT/DOMINGO) WHEELCHAIR TRANSFER (OT/DOMINGO) WHEELCHAIR MANAGEMENT(OT/CITY JAILER) POSTURAL CONTROL/BALANCE (OT/CITY JAILER) THERAPEUTIC EXERCISE (OT/CITY JAILER) OT TO ASSESS / DOMINGO TO MONITOR FOR HEART FAILURE EXACERBATION AND RECORD PATIENT REPORTED WEIGHT, AND NOTIFY THE PHYSICIAN AND/OR THE RN CLINICAL PRODUCTION POTTER FOR PHYSICIAN NOTIFICATION OF HF EXACERBATION (2LB WEIGHT GAIN IN 1 DAY, 5LBS IN A WEEK OR 5 LBS OVER BASELINE; INCREASED SOB, EDEMA, NEEDING MORE PILLOWS AT NIGHT, CRACKLES IN BASIS OF THE LUNGS OR PMI SHIFT). OT/CITY JAILER TO MONITOR FOR HYPO/HYPERGLYCEMIA AND CONDUCT ROUTINE FOOT INSPECTIONS. RECORD PATIENT REPORTED BLOOD SUGAR LEVELS AND NOTIFY PHYSICIAN AND/OR THE RN CLINICAL PRODUCTION POTTER FOR PHYSICIAN NOTIFICATION IF BLOOD SUGAR LEVELS ARE OUTSIDE ORDERED PARAMETERS. TEACH PATIENT/CAREGIVER ON DAILY FOOT INSPECTIONS. [code = AGENCY MAY PERFORM A RESUMPTION OF CARE VISIT FOLLOWING ANY HOSPITAL ADMISSION. OT TO EVALUATE, OBSERVE / ASSESS, AND MONITOR, CITY JAILER TO OBSERVE AND MONITOR, PROVIDE SKILLED THERAPEUTIC INTERVENTION, ACTIVITY, EDUCATION, AND TRAINING TO ADDRESS; IMPROVEMENT OF STRENGTH, ACTIVITY TOLERANCE, BALANCE, FOR SAFE IMPROVED FUNCTIONAL TRANSFERS, FUNCTIONAL MOBILITY AND SELF-CARE PERFORMANCE DRESSING (OT/CITY JAILER) ACTIVITIES OF DAILY LIVING (OT/CITY JAILER) BED TRANSFERS (OT/CITY JAILER) WHEELCHAIR TRANSFER (OT/CITY JAILER) WHEELCHAIR MANAGEMENT(OT/DOMINGO) POSTURAL CONTROL/BALANCE (OT/DOMINGO) THERAPEUTIC EXERCISE (OT/DOMINGO) OT TO ASSESS / CITY JAILER TO MONITOR FOR HEART FAILURE EXACERBATION AND RECORD PATIENT REPORTED WEIGHT, AND NOTIFY THE PHYSICIAN AND/OR THE RN CLINICAL PRODUCTION POTTER FOR PHYSICIAN NOTIFICATION OF HF EXACERBATION (2LB WEIGHT GAIN IN 1 DAY, 5LBS IN A WEEK OR 5 LBS OVER BASELINE; INCREASED SOB, EDEMA, NEEDING MORE PILLOWS AT NIGHT, CRACKLES IN BASIS OF THE LUNGS OR PMI SHIFT). OT/CITY JAILER TO MONITOR FOR HYPO/HYPERGLYCEMIA AND CONDUCT ROUTINE FOOT INSPECTIONS. RECORD PATIENT REPORTED BLOOD SUGAR LEVELS AND NOTIFY PHYSICIAN AND/OR THE RN CLINICAL PRODUCTION POTTER FOR PHYSICIAN NOTIFICATION IF BLOOD SUGAR LEVELS ARE OUTSIDE ORDERED PARAMETERS. TEACH PATIENT/CAREGIVER ON DAILY FOOT INSPECTIONS.] Future Scheduled Test MEDICAL SO CIAL SERVICES FOR COMMUNITY RESOURCE PLANNING. [code = MEDICAL INSURANCE APPLICATION INVESTIGATOR FOR COMMUNITY RESOURCE PLANNING.] Future Scheduled Test RN TO OBSE RVE, ASSESS, EVALUATE, AND DEVELOP AN INDIVIDUALIZED PLAN OF CARE. AGENCY MAY ACCEPT ORDERS FROM CONSULTING PHYSICIANS RN TO OBSERVE AND ASSESS, LINKING MACHINE OPERATOR/DEPARTMENT SUPERVISOR TO OBSERVE FOR RISK FOR FALLS AND INSTRUCT IN FALL PREVENTION, HOME SAFETY, MEDICATION MANAGEMENT, INFECTION PREVENTION, AND NUTRITION MANAGEMENT. RN/LINKING MACHINE OPERATOR/DEPARTMENT SUPERVISOR NURSE MAY PERFORM O2 SATURATION LEVEL ON ADMISSION AND PRN FOR RN TO ASSESS/LINKING MACHINE OPERATOR TO OBSERVE PATIENT, WITH NOTIFICATION TO THE PHYSICIAN IF SATURATION IS 90% IN THE ABSENCE OF MORE SPECIFIC PARAMETERS FROM THE PHYSICIAN. AGENCY MAY PERFORM A RESUMPTION OF CARE VISIT FOLLOWING ANY HOSPITAL ADMISSION. RN/LINKING MACHINE OPERATOR/DEPARTMENT SUPERVISOR TO MONITOR CO-MORBID CONDITIONS LISTED ON THE PLAN OF CARE AND ANY NEW CONDITIONS THAT PRESENT THEMSELVES DURING THIS EPISODE TO IDENTIFY CHANGES AND INTERVENE TO MINIMIZE COMPLICATIONS. FALL REDUCTION MANAGEMENT; RN TO ASSESS AND OBSERVE, LINKING MACHINE OPERATOR/DEPARTMENT SUPERVISOR TO OBSERVE FALL RISK FACTORS AND EDUCATE PATIENT/CAREGIVER ON STRATEGIES TO MINIMIZE THE RISK OF FALLING. RISK FOR HOSPITALIZATION; RN TO ASSESS/TEACH, DEPARTMENT SUPERVISOR/LINKING MACHINE OPERATOR TO OBSERVE/TEACH PATIENT/CAREGIVER ON RISK FOR HOSPITALIZATION/EMERGENCY ROOM VISITS, TEACH SIGNS AND SYMPTOMS THAT PUT PATIENT AT RISK, WHEN TO NOTIFY NURSE/PHYSICIAN OF COMPLICATIONS/DECLINE, AND WHEN TO CALL 911. RN/LINKING MACHINE OPERATOR/DEPARTMENT SUPERVISOR TO PERFORM/TEACH PATIENT/CAREGIVER WOUND CARE PRESSURE INJURY TO LEFT AND R HEELS UNSTAGEABLE PRESSURE ULCERS IRRIGATE/CLEANSE WITH SALINE OR WOUND CLEANSER APPLY MEDIHONEY MAY APPLY SKIN BARRIER TO PERIWOUND PRN TO PREVENT MACERATION AND PROTECT PERIWOUND COVER WITH FOAM DRESSING CHANGE DRESSING EVERY DAY AND PRN FOR SOILED, CG TO PERFORM WHEN SN NOT VISITING [code = RN TO OBSERVE, ASSESS, EVALUATE, AND DEVELOP AN INDIVIDUALIZED PLAN OF CARE. AGENCY MAY ACCEPT ORDERS FROM CONSULTING PHYSICIANS RN TO OBSERVE AND ASSESS, LINKING MACHINE OPERATOR/DEPARTMENT SUPERVISOR TO OBSERVE FOR RISK FOR FALLS AND INSTRUCT IN FALL PREVENTION, HOME SAFETY, MEDICATION MANAGEMENT, INFECTION PREVENTION, AND NUTRITION MANAGEMENT. RN/LINKING MACHINE OPERATOR/DEPARTMENT SUPERVISOR NURSE MAY PERFORM O2 SATURATION LEVEL ON ADMISSION AND PRN FOR RN TO ASSESS/LINKING MACHINE OPERATOR TO OBSERVE PATIENT, WITH NOTIFICATION TO THE PHYSICIAN IF SATURATION IS 90% IN THE ABSENCE OF MORE SPECIFIC PARAMETERS FROM THE PHYSICIAN. AGENCY MAY PERFORM A RESUMPTION OF CARE VISIT FOLLOWING ANY HOSPITAL ADMISSION. RN/LINKING MACHINE OPERATOR/DEPARTMENT SUPERVISOR TO MONITOR CO-MORBID CONDITIONS LISTED ON THE PLAN OF CARE AND ANY NEW CONDITIONS THAT PRESENT THEMSELVES DURING THIS EPISODE TO IDENTIFY CHANGES AND INTERVENE TO MINIMIZE COMPLICATIONS. FALL REDUCTION MANAGEMENT; RN TO ASSESS AND OBSERVE, LINKING MACHINE OPERATOR/DEPARTMENT SUPERVISOR TO OBSERVE FALL RISK FACTORS AND EDUCATE PATIENT/CAREGIVER ON STRATEGIES TO MINIMIZE THE RISK OF FALLING. RISK FOR HOSPITALIZATION; RN TO ASSESS/TEACH, DEPARTMENT SUPERVISOR/LINKING MACHINE OPERATOR TO OBSERVE/TEACH PATIENT/CAREGIVER ON RISK FOR HOSPITALIZATION/EMERGENCY ROOM VISITS, TEACH SIGNS AND SYMPTOMS THAT PUT PATIENT AT RISK, WHEN TO NOTIFY NURSE/PHYSICIAN OF COMPLICATIONS/DECLINE, AND WHEN TO CALL 911. RN/LINKING MACHINE OPERATOR/DEPARTMENT SUPERVISOR TO PERFORM/TEACH PATIENT/CAREGIVER WOUND CARE PRESSURE INJURY TO LEFT AND R HEELS UNSTAGEABLE PRESSURE ULCERS IRRIGATE/CLEANSE WITH SALINE OR WOUND CLEANSER APPLY MEDIHONEY MAY APPLY SKIN BARRIER TO PERIWOUND PRN TO PREVENT MACERATION AND PROTECT PERIWOUND COVER WITH FOAM DRESSING CHANGE DRESSING EVERY DAY AND PRN FOR SOILED, CG TO PERFORM WHEN SN NOT VISITING] Goal Patient Goal - R ETURN BACK TO BEING ABLE TO CARE FOR HERSELF Goal Provider Goal - Goal Provider Goal - PT LTG: PATIENT WILL DEMONSTRATE IMPROVED BED MOBILITY TO REDUCE THE RISK OF SKIN INTEGRITY ISSUES AND/OR PAIN FROM CGA TO IND WITHIN 8 WEEKS Goal Provider Goal - PT STG: PATIENT WILL DEMONSTRATE IMPROVED ABILITY TO PERFORM SIT TO/FROM STAND TRANSFERS TO REDUCE THE RISK OF SKIN BREAKDOWN AND REDUCE FALL RISK FROM MAX TO MOD WITHIN 4 WEEKS PT LTG: PATIENT WILL DEMONSTRATE IMPROVED ABILITY TO PERFORM SIT TO/FROM STAND TRANSFERS TO REDUCE THE RISK OF SKIN BREAKDOWN AND REDUCE FALL RISK FROM MAX TO IND WITHIN 8 WEEKS Goal Provider Goal - PT STG: PATIENT WILL DEMONSTRATE IMPROVED AMBULATION FROM UNABLE TO MOD FOR 10 FT WITH APPROPRIATE AD WITHIN 4 WEEKS. PT LTG: PATIENT WILL DEMONSTRATE IMPROVED AMBULATION FROM UNABLE TO IND FOR 150 FT WITH APPROPRIATE AD WITHIN 8 WEEKS. Goal Provider Goal - PT STG: PATIENT WILL DEMONSTRATE IMPROVEMENT ON CHAIR RISE TEST FROM 0 TO 2 INDICATING DECREASED FALL RISK WITHIN 4 WEEKS. PT LTG: PATIENT WILL DEMONSTRATE IMPROVEMENT ON CHAIR RISE TEST FROM 0 TO 5 INDICATING DECREASED FALL RISK WITHIN 8 WEEKS. PT LTG: PATIENT WILL DEMONSTRATE INDEPENDENCE AND COMPLIANCE WITH HEP WITHIN 4 WEEKS Goal Provider Goal - PT LTG: PATIENT/CAREGIVER WILL DEMONSTRATE ADHERENCE TO FALL REDUCTION SELF-MANAGEMENT AND REDUCING FALL RISK FACTORS TO MINIMIZE FALL RISK BY END OF EPISODE. Goal Provider Goal - PATIENT/CAREGIVER WILL BE ABLE TO IDENTIFY SIGNS OF HYPER- AND HYPOGLYCEMIA AND VERBALIZE HOW TO MANAGE SYMPTOMS. Goal Provider Goal - PT GOAL: PATIENT/CAREGIVER WILL VERBALIZE UNDERSTANDING OF SIGNS AND SYMPTOMS THAT PUT THE PATIENT AT RISK FOR HOSPITALIZATION /EMERGENCY ROOM VISITS, WHEN TO NOTIFY NURSE/PHYSICIAN OF COMPLICATIONS/DECLINE AND WHEN TO CALL 911. Goal Provider Goal - PT LTG: PATIENT WILL MAINTAIN OXYGEN SATURATION WITHIN PHYSICIAN ORDERED PARAMETERS THROUGHOUT EPISODE OF CARE. Goal Provider Goal - Goal Provider Goal - Goal Provider Goal - ADDITIONAL ORDERS WILL BE RECEIVED FROM ALTERNATE PHYSICIAN IN A TIMELY MANNER. Goal Provider Goal - OT STG: PATIENT WILL DEMONSTRATE AND PROVED ABILITY TO PERFORM UPPER BODY DRESSING TO REDUCE CAREGIVER BURDEN OF CARE FROM MINIMAL ASSISTANCE TO STAND BY ASSISTANCE WITHIN 5 WEEKS OT LTG: PATIENT WILL DEMONSTRATE IMPROVED ABILITY TO PERFORM UPPER BODY DRESSING TO REDUCE CAREGIVER BURDEN FROM MINIMAL ASSISTANCE TO INDEPENDENT STATUS WITHIN 9 WEEKS OT STG: PATIENT WILL DEMONSTRATE IMPROVED ABILITY TO PERFORM LOWER BODY DRESSING TO REDUCE CAREGIVER BURDEN OF CARE FROM DEPENDENT STATUS TO MINIMAL ASSISTANCE WITHIN 5 WEEKS OT LTG: PATIENT WILL DEMONSTRATE IMPROVED ABILITY TO PERFORM LOWER BODY DRESSING TO REDUCE CAREGIVER BURDEN FROM DEPENDENT STATUS TO CONTACT GUARD ASSISTANCE WITHIN 9 WEEKS OT LTG: PATIENT WILL DEMONSTRATE IMPROVEMENT IN MODIFIED MAX INDEX SCORE FROM 14 TO 60 INDICATING DECREASED DEPENDENCY ON CAREGIVER ASSISTANCE WITH ACTIVITIES OF DAILY LIVING WITHIN 8 WEEKS OT STG: PATIENT WILL DEMONSTRATE IMPROVED ABILITY TO PERFORM BED TO AND FROM BEDSIDE FROM UNABLE TO MODERATE ASSISTANCE WITHIN 5 WEEKS OT LTG: PATIENT WILL DEMONSTRATE IMPROVED ABILITY TO PERFORM BED TRANSFERS IN ORDER TO REDUCE RISK OF SKIN BREAKDOWN AND TO IMPROVE PARTICIPATION IN ADLS FROM UNABLE TO CONTACT GUARD ASSISTANCE WITHIN 9 WEEKS OT STG: PATIENT WILL DEMONSTRATE IMPROVED ABILITY TO COMPLETE WHEELCHAIR TRANSFER FROM BEDSIDE COMMODE FROM UNABLE TO MINIMAL ASSISTANCE WITHIN 5 WEEKS. OT LTG: PATIENT WILL DEMONSTRATE IMPROVED ABILITY TO COMPLETE WHEELCHAIR PRESSURE RELIEF TECHNIQUES FROM UNABLE TO INDEPENDENT WITHIN 9 WEEKS OT STG: PATIENT WILL DEMONSTRATE IMPROVED WHEELCHAIR MOBILITY FROM UNABLE TO MINIMAL ASSISTANCE WHEN NAVIGATING AROUND OBSTACLES WITHIN 5 WEEKS OT LTG: PATIENT WILL DEMONSTRATE IMPROVED WHEELCHAIR MOBILITY FROM UNABLE TO INDEPENDENT INCLUDING NAVIGATING AROUND OBSTACLES WITHIN HER ENVIRONMENT WITHIN 9 WEEKS OT STG: PATIENT WILL DEMONSTRATE IMPROVED POSTURAL CONTROL AND DECREASED FALL RISK EVIDENCED BY AN IMPROVEMENT IN FUNCTIONAL REACH SCORE FROM UNABLE TO 6 INCHES WITHIN 6 WEEKS IN ORDER TO IMLROVE SELF CARE PERFORMANCE OT LTG: PATIENT WILL DEMONSTRATE IMPROVED POSTURAL CONTROL AND DECREASED FALL RISK EVIDENCED BY AN IMPROVEMENT IN FUNCTIONAL REACH SCORE FROM UNABLE TO 8 INCHES WITHIN 9 WEEKS IN ORDER TO IMLROVE SELF CARE PERFORMANCE OT STG: PATIENT WILL PERFORM HER BILATERAL UPPER EXTREMITY STRENGTHENING HOME EXERCISE PROGRAM FROM UNABLE TO INDEPENDENT WITHIN 4 WEEKS IN ORDER TO IMPROVE FUNCTIONAL TRANSFERS AND SELF-CARE PERFORMANCE OT LTG: PATIENT WILL DEMONSTRATE IMPROVED RUE STRENGTH FROM 3+/5 TO 4/5, LUE STRENGTH FROM 3/5 TO 3+/5 IN ORDER TO IMPROVE SELF CARE ABILITY TO PERFORM PRESSURE RELIEF WITHIN 9 WEEKS LTG OT: PATIENT S HEART FAILURE WILL REMAIN WELL CONTROLLED THROUGHOUT THE EPISODE OF CARE. OT LTG: PATIENT S BLOOD SUGAR WILL REMAIN WELL CONTROLLED THROUGHOUT EPISODE OF CARE AND PATIENT WILL NOT HAVE ANY SIGNS OF SKIN BREAKDOWN OR COMPLICATIONS THROUGHOUT EPISODE OF CARE. Goal Provider Goal - PATIENT / CAREGIVERS WILL DEMONSTRATE EFFECTIVE COMMUNITY RESOURCE PLANNING, EVIDENCED BY ACCEPTANCE OF ASSISTANCE FROM THOSE SERVICES FOR WHICH THEY ARE ELIGIBLE, EXTENDING THE PERIOD OF INDEPENDENCE IN THE HOME. Goal Provider Goal - A PLAN OF CARE WILL BE ESTABLISHED THAT MEETS THE PATIENT S NEEDS. PATIENT WILL DEMONSTRATE OXYGEN SATURATION WITHIN NORMAL LIMITS OR PATIENT S OPTIMAL LEVEL ESTABLISHED BY THE PHYSICIAN THROUGHOUT CARE. CHANGES TO CO-MORBID CONDITIONS AND ANY NEW CONDITIONS WILL BE IDENTIFIED AND REPORTED TO THE PHYSICIAN. PATIENT/CAREGIVER WILL VERBALIZE/DEMONSTRATE UNDERSTANDING OF FALL RISK FACTORS AND IMPLEMENT STRATEGIES TO MINIMIZE FALL RISK. PATIENT/CAREGIVER WILL VERBALIZE/DEMONSTRATE AN ABILITY TO ADHERE TO FALL REDUCTION SELF-MANAGEMENT AND LIFE-STYLE CHANGES BY 60 DAYS PATIENT/CAREGIVER WILL VERBALIZE UNDERSTANDING OF SIGNS AND SYMPTOMS THAT PUT THE PATIENT AT RISK FOR HOSPITALIZATION /EMERGENCY ROOM VISITS, WHEN TO NOTIFY NURSE/PHYSICIAN OF COMPLICATIONS/DECLINE AND WHEN TO CALL 911. PATIENT / CAREGIVER WILL VERBALIZE / DEMONSTRATE ABILITY TO PERFORM WOUND CARE. WOUND STATUS WILL IMPROVE EVIDENCED BY A DECREASE IN SIZE, DRAINAGE, ABSENCE OF INFECTION, AND DECREASED PAIN BY END OF EPISODE. Encounters Start Date/Time End Date/Time Encounter Type Admission Type Attending [facility] Care Department Encounter ID Discharge Date Discharge Status Discharge Condition Discharge Reason Percent Goals Met 2025-02-15 00:00:00 2025-04-15 00:00:00 Outpatient KEESHA GUERRERO [facility] [id number] 50.00
--- OUTSIDE RECORDS SUMMARY | 2025-04-14 20:00 | XMS_ITS | Clinical Summary ---
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 OF INSULIN Active 01-28 00:00: 00 BODY AND FENDER MECHANIC APPRENTICE (CURRENT) USE OF ANTITHROMBOT ICS/ANTIPLAT ELETS Active [...] 07-27 00:00: 00 08-31 23:59 :00 No [id number] UTI 1 capsule 2 TIMES DAILY 1 capsule 2 TIMES DAILY (route: oral) Med Classific ation: Anti-Infe ctive Agents hydralazine 25 mg tablet 07-27 00:00: 00 10-21 23:59 :00 No [id number] HYPERTENSIO N 1 tablet 3 TIMES DAILY 1 tablet 3 TIMES DAILY (route: oral) Med Classific ation: Cardiovas cular Therapy Agents clonazepam 1 mg tablet 07-21 00:00: 00 02-10 23:59 :00 No [id number] ANXIETY 1 tablet 3 TIMES DAILY 1 tablet 3 TIMES DAILY (route: oral) Med Classific ation: Central Nervous System Agents gabapentin 400 mg capsule 07-27 00:00: 00 02-10 23:59 :00 No [id number] NERVE PAIN 1 capsule 3 TIMES DAILY 1 capsule 3 TIMES DAILY (route: oral) Med Classific ation: Central Nervous System Agents insulin glargine (U-100) 100 unit/mL (3 mL) subcutaneou s pen 07-27 00:00: 00 02-10 23:59 :00 No [id number] DIABETES 18 unit 2 TIMES DAILY 18 unit 2 TIMES DAILY (route: subcutaneo us) Med Classific ation: Endocrine insulin lispro (U-100) 100 unit/mL subcutaneou s pen 1- 00:00: 00 02-10 23:59 :00 No [id number] DIABETES Per instruc tions 3 TIMES DAILY Per instructio ns 3 TIMES DAILY (route: subcutaneo us) Med Classific ation: Endocrine levothyroxi ne 88 mcg tablet 02-01 00:00: 00 02-10 23:59 :00 No [id number] HYPOTHYROID 1 tablet DAILY 1 tablet DAILY (route: oral) Med Classific ation: Endocrine acetaminoph en 500 mg tablet 02-01 00:00: 00 02-10 23:59 :00 No [id number] PAIN 2 tablet 3 TIMES DAILY 2 tablet 3 TIMES DAILY (route: oral) Med Classific ation: Analgesic , Anti-infl ammatory or Antipyret ic bumetanide 2 mg tablet 09-10 00:00: 00 02-10 23:59 :00 No [id number] DIURETIC 1 tablet 3 TIMES DAILY 1 tablet 3 TIMES DAILY (route: oral) Med Classific ation: Cardiovas cular Therapy Agents cyanocobala min (vit B-12) 1,000 mcg sublingual tablet 09-10 00:00: 00 02-10 23:59 :00 No [id number] SUPPLIMENT 1 tablet DAILY 1 tablet DAILY (route: sublingual ) Med Classific ation: Electroly te Balance-N utritiona l Products hydrocodone 5 mg-acetamin ophen 325 mg tablet 09-10 00:00: 00 02-10 23:59 :00 No [id number] PAIN 1 tablet EVERY 8 HOURS 1 tablet EVERY 8 HOURS (route: oral) Med Classific ation: Analgesic , Anti-infl ammatory or Antipyret ic spironolact one 50 mg tablet 09-10 00:00: 00 02-10 23:59 :00 No [id number] DIURETIC 1 tablet DAILY 1 tablet DAILY (route: oral) Med Classific ation: Cardiovas cular Therapy Agents hydralazine 50 mg tablet 4-24 00:00: 00 02-10 23:59 :00 No [id number] BLOOD PRESSURE 50 mg DAILY 50 mg DAILY (route: oral) Med Classific ation: Cardiovas cular Therapy Agents nifedipine ER 90 mg tablet,exte nded release 4-24 00:00: 00 02-10 23:59 :00 No [id number] BLOOD PRESSURE 90 mg DAILY 90 mg DAILY (route: oral) Med Classific ation: Cardiovas cular Therapy Agents clopidogrel 75 mg tablet 15 00:00: 00 02-15 00:00 :00 No [id number] Per instruc tions Per instructio ns (route: oral) Med Classific ation: Hematolog ical Agents isosorbide mononitrate ER 60 mg tablet,exte nded release 24 hr 02-11 00:00: 00 Yes [id number] HEART 1 tablet DAILY 1 tablet DAILY (route: oral) Med Classific ation: Cardiovas cular Therapy Agents Lantus Solostar U-100 Insulin 100 unit/mL (3 mL) subcutaneou s pen 02-11 00:00: 00 Yes [id number] T2DM 10 unit DAILY 10 unit DAILY (route: subcutaneo us) Med Classific ation: Endocrine levothyroxi ne 88 mcg tablet 02-11 00:00: 00 Yes [id number] THYROID 1 tablet DAILY 1 tablet DAILY (route: oral) Med Classific ation: Endocrine Ultra-Fine Pen Needle 31 gauge x /16 15 00:00: 00 Yes [id number] T2DM Per instruc tions DIRECTED Per instructio ns DIRECTED (route: miscellane ous) Med Classific ation: Medical Supplies and Durable Medical Equipment (DME) valsartan 160 mg tablet 15 00:00: 00 02-15 00:00 :00 No [id number] Per instruc tions Per instructio ns (route: oral) Med Classific ation: Cardiovas cular Therapy Agents gabapentin 300 mg capsule 8-04 00:00: 00 Yes [id number] NERVE PAIN 1 capsule BEDTIME 1 capsule BEDTIME (route: oral) Med Classific ation: Central Nervous System Agents hydrocodone 5 mg-acetamin ophen 325 mg tablet 01-31 00:00: 00 02-15 00:00 :00 No [id number] Per instruc tions Per instructio ns (route: oral) Med Classific ation: Analgesic , Anti-infl ammatory or Antipyret ic atorvastati n 40 mg tablet 01-28 00:00: 00 02-15 00:00 :00 No [id number] Per instruc tions Per instructio ns (route: oral) Med Classific ation: Cardiovas cular Therapy Agents bumetanide 1 mg tablet 01-28 00:00: 00 Yes [id number] EDEMA 1 tablet DAILY 1 tablet DAILY (route: oral) Med Classific ation: Cardiovas cular Therapy Agents clopidogrel 75 mg tablet 01-28 00:00: 00 02-15 00:00 :00 No [id number] Per instruc tions Per instructio ns (route: oral) Med Classific ation: Hematolog ical Agents levothyroxi ne 88 mcg tablet 01-28 00:00: 00 02-15 00:00 :00 No [id number] Per instruc tions Per instructio ns (route: oral) Med Classific ation: Endocrine loperamide 2 mg capsule 01-28 00:00: 00 Yes [id number] DIAHREAH 1 capsule EVERY 6 HOURS 1 capsule EVERY 6 HOURS (route: oral) Med Classific ation: Gastroint estinal Therapy Agents mirtazapine 15 mg tablet 01-28 00:00: 00 Yes [id number] DEPRESSION 1 tablet DAILY 1 tablet DAILY (route: oral) Med Classific ation: Central Nervous System Agents nifedipine ER 60 mg tablet,exte nded release 01-28 00:00: 00 Yes [id number] BLOOD PRESSURE 1 tablet DAILY 1 tablet DAILY (route: oral) Med Classific ation: Cardiovas cular Therapy Agents ondansetron HCl 4 mg tablet 01-28 00:00: 00 Yes [id number] NAUSEA 1 tablet DAILY 1 tablet DAILY (route: oral) Med Classific ation: Gastroint estinal Therapy Agents clonazepam 0.5 mg tablet 01-18 00:00: 00 02-15 00:00 :00 No [id number] Per instruc tions TWICE DAILY NEEDED Per instructio ns TWICE DAILY NEEDED (route: oral) Med Classific ation: Central Nervous System Agents Aspirin Childrens 81 mg chewable tablet 02-15 00:00: 00 Yes [id number] HEART 1 tablet DAILY 1 tablet DAILY (route: oral) Med Classific ation: Hematolog ical Agents Lipitor 40 mg tablet 02-15 00:00: 00 Yes [id number] CHOLESTEROL 1 tablet BEDTIME 1 tablet BEDTIME (route: oral) Med Classific ation: Cardiovas cular Therapy Agents Plavix 75 mg tablet 02-15 00:00: 00 Yes [id number] HEART 1 tablet DAILY 1 tablet DAILY [...] TO EVALUATE, OBSERVE / ASSESS, AND MONITOR, POWER PLANT OPERATOR APPRENTICE TO OBSERVE AND MONITOR, PROVIDE SKILLED THERAPEUTIC INTERVENTION, ACTIVITY, EDUCATION, AND TRAINING TO ADDRESS; [code = AGENCY MAY PERFORM A RESUMPTION OF CARE VISIT FOLLOWING ANY HOSPITAL ADMISSION. PT TO EVALUATE, OBSERVE / ASSESS, AND MONITOR, POWER PLANT OPERATOR APPRENTICE TO OBSERVE AND MONITOR, PROVIDE SKILLED THERAPEUTIC INTERVENTION, ACTIVITY, EDUCATION, AND TRAINING TO ADDRESS;] Future Scheduled Test BED MOBILI TY (PT/POWER PLANT OPERATOR APPRENTICE) [code = BED MOBILITY (PT/POWER PLANT OPERATOR APPRENTICE)] Future Scheduled Test SIT TO/FRO M STAND TRANSFERS (PT/POWER PLANT OPERATOR APPRENTICE) [code = SIT TO/FROM STAND TRANSFERS (PT/POWER PLANT OPERATOR APPRENTICE)] Future Scheduled Test PT/POWER PLANT OPERATOR APPRENTICE TO PROVIDE GAIT TRAINING FOR IMPROVED MOBILITY AND /OR TO NORMALIZE GAIT PATTERN [code = PT/POWER PLANT OPERATOR APPRENTICE TO PROVIDE GAIT TRAINING FOR IMPROVED MOBILITY AND /OR TO NORMALIZE GAIT PATTERN] Future Scheduled Test THERAPEUTI C EXERCISES AND ESTABLISHING A HOME EXERCISE PROGRAM (PT/POWER PLANT OPERATOR APPRENTICE) [code = THERAPEUTIC EXERCISES AND ESTABLISHING A HOME EXERCISE PROGRAM (PT/POWER PLANT OPERATOR APPRENTICE)] Future Scheduled Test PT/POWER PLANT OPERATOR APPRENTICE TO IDENTIFY FALL RISK FACTORS; EDUCATE THE PATIENT/CAREGIVER ON WAYS TO REDUCE FALL RISK FACTORS AND ESTABLISH HOME EXERCISE PROGRAM TO MINIMIZE FALL RISK. MAY TEACH THE PATIENT FLOOR RECOVERY WHEN CLINICALLY APPROPRIATE [code = PT/POWER PLANT OPERATOR APPRENTICE TO IDENTIFY FALL RISK FACTORS; EDUCATE THE PATIENT/CAREGIVER ON WAYS TO REDUCE FALL RISK FACTORS AND ESTABLISH HOME EXERCISE PROGRAM TO MINIMIZE FALL RISK. MAY TEACH THE PATIENT FLOOR RECOVERY WHEN CLINICALLY APPROPRIATE] Future Scheduled Test PT / POWER PLANT OPERATOR APPRENTICE T O EDUCATE ON DIABETES SELF- MANAGEMENT [code = PT / POWER PLANT OPERATOR APPRENTICE TO EDUCATE ON DIABETES SELF- MANAGEMENT] Future Scheduled Test PT / POWER PLANT OPERATOR APPRENTICE T O INSTRUCT PATIENT/CAREGIVER ON RISK FOR HOSPITALIZATION/EMERGENCY ROOM VISITS, TEACH SIGNS AND SYMPTOMS THAT PUT PATIENT AT RISK, WHEN TO NOTIFY NURSE/PHYSICIAN OF COMPLICATIONS/DECLINE, AND WHEN TO CALL 911. [code = PT / POWER PLANT OPERATOR APPRENTICE TO INSTRUCT PATIENT/CAREGIVER ON RISK FOR HOSPITALIZATION/EMERGENCY ROOM VISITS, TEACH SIGNS AND SYMPTOMS THAT PUT PATIENT AT RISK, WHEN TO NOTIFY NURSE/PHYSICIAN OF COMPLICATIONS/DECLINE, AND WHEN TO CALL 911.] Future Scheduled Test PT / POWER PLANT OPERATOR APPRENTICE T O MONITOR AND EDUCATE ON OXYGEN SATURATION DURING ADLS/IADLS, NOTIFY PHYSICIAN AND/OR THE RN CLINICAL SEWER FOR PHYSICIAN NOTIFICATION AND IF O2 SATS BELOW PHYSICIAN ORDERED PARAMETERS AFTER 10 MIN OF REST [code = PT / POWER PLANT OPERATOR APPRENTICE TO MONITOR AND EDUCATE ON OXYGEN SATURATION DURING ADLS/IADLS, NOTIFY PHYSICIAN AND/OR THE RN CLINICAL SEWER FOR PHYSICIAN NOTIFICATION AND IF O2 SATS BELOW PHYSICIAN ORDERED PARAMETERS AFTER 10 MIN OF REST] Future Scheduled Test SKILLED NU RSING TO EVALUATE FOR WOUND ASSESSMENT, MEDICATION MANAGEMENT, BS CONTROL. [code = LONG-TERM TO EVALUATE FOR WOUND ASSESSMENT, MEDICATION MANAGEMENT, BS CONTROL.] Future Scheduled Test MEDICAL SO CIAL WORKER TO EVALUATE FOR COMMUNITY SERVICES [code = WORKDAY MANAGER TO EVALUATE FOR COMMUNITY SERVICES] Future Scheduled [...] PERFORMANCE DRESSING (OT/DOMINGO) ACTIVITIES OF DAILY LIVING (OT/SLUMBER ROOM ATTENDANT) BED TRANSFERS (OT/DOMINGO) WHEELCHAIR TRANSFER (OT/DOMINGO) WHEELCHAIR MANAGEMENT(OT/SLUMBER ROOM ATTENDANT) POSTURAL CONTROL/BALANCE (OT/SLUMBER ROOM ATTENDANT) THERAPEUTIC EXERCISE (OT/SLUMBER ROOM ATTENDANT) OT TO ASSESS / DOMINGO TO MONITOR FOR HEART FAILURE EXACERBATION AND RECORD PATIENT REPORTED WEIGHT, AND NOTIFY THE PHYSICIAN AND/OR THE RN CLINICAL SEWER FOR PHYSICIAN NOTIFICATION OF HF EXACERBATION (2LB WEIGHT GAIN IN 1 DAY, 5LBS IN A WEEK OR 5 LBS OVER BASELINE; INCREASED SOB, EDEMA, NEEDING MORE PILLOWS AT NIGHT, CRACKLES IN BASIS OF THE LUNGS OR PMI SHIFT). OT/SLUMBER ROOM ATTENDANT TO MONITOR FOR HYPO/HYPERGLYCEMIA AND CONDUCT ROUTINE FOOT INSPECTIONS. RECORD PATIENT REPORTED BLOOD SUGAR LEVELS AND NOTIFY PHYSICIAN AND/OR THE RN CLINICAL SEWER FOR PHYSICIAN NOTIFICATION IF BLOOD SUGAR LEVELS ARE OUTSIDE ORDERED PARAMETERS. TEACH PATIENT/CAREGIVER ON DAILY FOOT INSPECTIONS. [code = AGENCY MAY PERFORM A RESUMPTION OF CARE VISIT FOLLOWING ANY HOSPITAL ADMISSION. OT TO EVALUATE, OBSERVE / ASSESS, AND MONITOR, SLUMBER ROOM ATTENDANT TO OBSERVE AND MONITOR, PROVIDE SKILLED THERAPEUTIC INTERVENTION, ACTIVITY, EDUCATION, AND TRAINING TO ADDRESS; IMPROVEMENT OF STRENGTH, ACTIVITY TOLERANCE, BALANCE, FOR SAFE IMPROVED FUNCTIONAL TRANSFERS, FUNCTIONAL MOBILITY AND SELF-CARE PERFORMANCE DRESSING (OT/SLUMBER ROOM ATTENDANT) ACTIVITIES OF DAILY LIVING (OT/SLUMBER ROOM ATTENDANT) BED TRANSFERS (OT/SLUMBER ROOM ATTENDANT) WHEELCHAIR TRANSFER (OT/SLUMBER ROOM ATTENDANT) WHEELCHAIR MANAGEMENT(OT/DOMINGO) POSTURAL CONTROL/BALANCE (OT/DOMINGO) THERAPEUTIC EXERCISE (OT/DOMINGO) OT TO ASSESS / SLUMBER ROOM ATTENDANT TO MONITOR FOR HEART FAILURE EXACERBATION AND RECORD PATIENT REPORTED WEIGHT, AND NOTIFY THE PHYSICIAN AND/OR THE RN CLINICAL SEWER FOR PHYSICIAN NOTIFICATION OF HF EXACERBATION (2LB WEIGHT GAIN IN 1 DAY, 5LBS IN A WEEK OR 5 LBS OVER BASELINE; INCREASED SOB, EDEMA, NEEDING MORE PILLOWS AT NIGHT, CRACKLES IN BASIS OF THE LUNGS OR PMI SHIFT). OT/SLUMBER ROOM ATTENDANT TO MONITOR FOR HYPO/HYPERGLYCEMIA AND CONDUCT ROUTINE FOOT INSPECTIONS. RECORD PATIENT REPORTED BLOOD SUGAR LEVELS AND NOTIFY PHYSICIAN AND/OR THE RN CLINICAL SEWER FOR PHYSICIAN NOTIFICATION IF BLOOD SUGAR LEVELS ARE OUTSIDE ORDERED PARAMETERS. TEACH PATIENT/CAREGIVER ON DAILY FOOT INSPECTIONS.] Future Scheduled Test MEDICAL SO CIAL SERVICES FOR COMMUNITY RESOURCE PLANNING. [code = MEDICAL COLOR DEPOSITING MACHINE TENDER FOR COMMUNITY RESOURCE PLANNING.] Future Scheduled Test RN TO OBSE RVE, ASSESS, EVALUATE, AND DEVELOP AN INDIVIDUALIZED PLAN OF CARE. AGENCY MAY ACCEPT ORDERS FROM CONSULTING PHYSICIANS RN TO OBSERVE AND ASSESS, TUBE BALANCER/MAINTENANCE WORKER TO OBSERVE FOR RISK FOR FALLS AND INSTRUCT IN FALL PREVENTION, HOME SAFETY, MEDICATION MANAGEMENT, INFECTION PREVENTION, AND NUTRITION MANAGEMENT. RN/TUBE BALANCER/MAINTENANCE WORKER NURSE MAY PERFORM O2 SATURATION LEVEL ON ADMISSION AND PRN FOR RN TO ASSESS/TUBE BALANCER TO OBSERVE PATIENT, WITH NOTIFICATION TO THE PHYSICIAN IF SATURATION IS 90% IN THE ABSENCE OF MORE SPECIFIC PARAMETERS FROM THE PHYSICIAN. AGENCY MAY PERFORM A RESUMPTION OF CARE VISIT FOLLOWING ANY HOSPITAL ADMISSION. RN/TUBE BALANCER/MAINTENANCE WORKER TO MONITOR CO-MORBID CONDITIONS LISTED ON THE PLAN OF CARE AND ANY NEW CONDITIONS THAT PRESENT THEMSELVES DURING THIS EPISODE TO IDENTIFY CHANGES AND INTERVENE TO MINIMIZE COMPLICATIONS. FALL REDUCTION MANAGEMENT; RN TO ASSESS AND OBSERVE, TUBE BALANCER/MAINTENANCE WORKER TO OBSERVE FALL RISK FACTORS AND EDUCATE PATIENT/CAREGIVER ON STRATEGIES TO MINIMIZE THE RISK OF FALLING. RISK FOR HOSPITALIZATION; RN TO ASSESS/TEACH, MAINTENANCE WORKER/TUBE BALANCER TO OBSERVE/TEACH PATIENT/CAREGIVER ON RISK FOR HOSPITALIZATION/EMERGENCY ROOM VISITS, TEACH SIGNS AND SYMPTOMS THAT PUT PATIENT AT RISK, WHEN TO NOTIFY NURSE/PHYSICIAN OF COMPLICATIONS/DECLINE, AND WHEN TO CALL 911. RN/TUBE BALANCER/MAINTENANCE WORKER TO PERFORM/TEACH PATIENT/CAREGIVER WOUND CARE PRESSURE INJURY [...] CONSULTING PHYSICIANS RN TO OBSERVE AND ASSESS, TUBE BALANCER/MAINTENANCE WORKER TO OBSERVE FOR RISK FOR FALLS AND INSTRUCT IN FALL PREVENTION, HOME SAFETY, MEDICATION MANAGEMENT, INFECTION PREVENTION, AND NUTRITION MANAGEMENT. RN/TUBE BALANCER/MAINTENANCE WORKER NURSE MAY PERFORM O2 SATURATION LEVEL ON ADMISSION AND PRN FOR RN TO ASSESS/TUBE BALANCER TO OBSERVE PATIENT, WITH NOTIFICATION TO THE PHYSICIAN IF SATURATION IS 90% IN THE ABSENCE OF MORE SPECIFIC PARAMETERS FROM THE PHYSICIAN. AGENCY MAY PERFORM A RESUMPTION OF CARE VISIT FOLLOWING ANY HOSPITAL ADMISSION. RN/TUBE BALANCER/MAINTENANCE WORKER TO MONITOR CO-MORBID CONDITIONS LISTED ON THE PLAN OF CARE AND ANY NEW CONDITIONS THAT PRESENT THEMSELVES DURING THIS EPISODE TO IDENTIFY CHANGES AND INTERVENE TO MINIMIZE COMPLICATIONS. FALL REDUCTION MANAGEMENT; RN TO ASSESS AND OBSERVE, TUBE BALANCER/MAINTENANCE WORKER TO OBSERVE FALL RISK FACTORS AND EDUCATE PATIENT/CAREGIVER ON STRATEGIES TO MINIMIZE THE RISK OF FALLING. RISK FOR HOSPITALIZATION; RN TO ASSESS/TEACH, MAINTENANCE WORKER/TUBE BALANCER TO OBSERVE/TEACH PATIENT/CAREGIVER ON RISK FOR HOSPITALIZATION/EMERGENCY ROOM VISITS, TEACH SIGNS AND SYMPTOMS THAT PUT PATIENT AT RISK, WHEN TO NOTIFY NURSE/PHYSICIAN OF COMPLICATIONS/DECLINE, AND WHEN TO CALL 911. RN/TUBE BALANCER/MAINTENANCE WORKER TO PERFORM/TEACH PATIENT/CAREGIVER WOUND CARE PRESSURE INJURY [...] End Date/Time Encounter Type Admission Type Attending [facility] Care Department Encounter ID Discharge Date Discharge Status Discharge Condition Discharge Reason Percent Goals Met 2025-02-15 00:00:00 2025-04-15 00:00:00 Outpatient KEESHA GUERRERO [facility] [id number] 50.00
--- OUTSIDE RECORDS SUMMARY | 2025-04-14 20:00 | XMS_ITS | Clinical Summary ---
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 Active 01-28 00:00: 00 DIE LAY OUT WORKER (CURRENT) USE OF ANTITHROMBOT ICS/ANTIPLAT ELETS Active [...] 07-27 00:00: 00 08-31 23:59 :00 No [id number] UTI 1 capsule 2 TIMES DAILY 1 capsule 2 TIMES DAILY (route: oral) Med Classific ation: Anti-Infe ctive Agents hydralazine 25 mg tablet 07-27 00:00: 00 10-21 23:59 :00 No [id number] HYPERTENSIO N 1 tablet 3 TIMES DAILY 1 tablet 3 TIMES DAILY (route: oral) Med Classific ation: Cardiovas cular Therapy Agents clonazepam 1 mg tablet 07-21 00:00: 00 02-10 23:59 :00 No [id number] ANXIETY 1 tablet 3 TIMES DAILY 1 tablet 3 TIMES DAILY (route: oral) Med Classific ation: Central Nervous System Agents gabapentin 400 mg capsule 07-27 00:00: 00 02-10 23:59 :00 No [id number] NERVE PAIN 1 capsule 3 TIMES DAILY 1 capsule 3 TIMES DAILY (route: oral) Med Classific ation: Central Nervous System Agents insulin glargine (U-100) 100 unit/mL (3 mL) subcutaneou s pen 07-27 00:00: 00 02-10 23:59 :00 No [id number] DIABETES 18 unit 2 TIMES DAILY 18 unit 2 TIMES DAILY (route: subcutaneo us) Med Classific ation: Endocrine insulin lispro (U-100) 100 unit/mL subcutaneou s pen 1- 00:00: 00 02-10 23:59 :00 No [id number] DIABETES Per instruc tions 3 TIMES DAILY Per instructio ns 3 TIMES DAILY (route: subcutaneo us) Med Classific ation: Endocrine levothyroxi ne 88 mcg tablet 02-01 00:00: 00 02-10 23:59 :00 No [id number] HYPOTHYROID 1 tablet DAILY 1 tablet DAILY (route: oral) Med Classific ation: Endocrine acetaminoph en 500 mg tablet 02-01 00:00: 00 02-10 23:59 :00 No [id number] PAIN 2 tablet 3 TIMES DAILY 2 tablet 3 TIMES DAILY (route: oral) Med Classific ation: Analgesic , Anti-infl ammatory or Antipyret ic bumetanide 2 mg tablet 09-10 00:00: 00 02-10 23:59 :00 No [id number] DIURETIC 1 tablet 3 TIMES DAILY 1 tablet 3 TIMES DAILY (route: oral) Med Classific ation: Cardiovas cular Therapy Agents cyanocobala min (vit B-12) 1,000 mcg sublingual tablet 09-10 00:00: 00 02-10 23:59 :00 No [id number] SUPPLIMENT 1 tablet DAILY 1 tablet DAILY (route: sublingual ) Med Classific ation: Electroly te Balance-N utritiona l Products hydrocodone 5 mg-acetamin ophen 325 mg tablet 09-10 00:00: 00 02-10 23:59 :00 No [id number] PAIN 1 tablet EVERY 8 HOURS 1 tablet EVERY 8 HOURS (route: oral) Med Classific ation: Analgesic , Anti-infl ammatory or Antipyret ic spironolact one 50 mg tablet 09-10 00:00: 00 02-10 23:59 :00 No [id number] DIURETIC 1 tablet DAILY 1 tablet DAILY (route: oral) Med Classific ation: Cardiovas cular Therapy Agents hydralazine 50 mg tablet 4-24 00:00: 00 02-10 23:59 :00 No [id number] BLOOD PRESSURE 50 mg DAILY 50 mg DAILY (route: oral) Med Classific ation: Cardiovas cular Therapy Agents nifedipine ER 90 mg tablet,exte nded release 4-24 00:00: 00 02-10 23:59 :00 No [id number] BLOOD PRESSURE 90 mg DAILY 90 mg DAILY (route: oral) Med Classific ation: Cardiovas cular Therapy Agents clopidogrel 75 mg tablet 15 00:00: 00 02-15 00:00 :00 No [id number] Per instruc tions Per instructio ns (route: oral) Med Classific ation: Hematolog ical Agents isosorbide mononitrate ER 60 mg tablet,exte nded release 24 hr 02-11 00:00: 00 Yes [id number] HEART 1 tablet DAILY 1 tablet DAILY (route: oral) Med Classific ation: Cardiovas cular Therapy Agents Lantus Solostar U-100 Insulin 100 unit/mL (3 mL) subcutaneou s pen 02-11 00:00: 00 Yes [id number] T2DM 10 unit DAILY 10 unit DAILY (route: subcutaneo us) Med Classific ation: Endocrine levothyroxi ne 88 mcg tablet 02-11 00:00: 00 Yes [id number] THYROID 1 tablet DAILY 1 tablet DAILY (route: oral) Med Classific ation: Endocrine Ultra-Fine Pen Needle 31 gauge x /16 15 00:00: 00 Yes [id number] T2DM Per instruc tions DIRECTED Per instructio ns DIRECTED (route: miscellane ous) Med Classific ation: Medical Supplies and Durable Medical Equipment (DME) valsartan 160 mg tablet 15 00:00: 00 02-15 00:00 :00 No [id number] Per instruc tions Per instructio ns (route: oral) Med Classific ation: Cardiovas cular Therapy Agents gabapentin 300 mg capsule 8-04 00:00: 00 Yes [id number] NERVE PAIN 1 capsule BEDTIME 1 capsule BEDTIME (route: oral) Med Classific ation: Central Nervous System Agents hydrocodone 5 mg-acetamin ophen 325 mg tablet 01-31 00:00: 00 02-15 00:00 :00 No [id number] Per instruc tions Per instructio ns (route: oral) Med Classific ation: Analgesic , Anti-infl ammatory or Antipyret ic atorvastati n 40 mg tablet 01-28 00:00: 00 02-15 00:00 :00 No [id number] Per instruc tions Per instructio ns (route: oral) Med Classific ation: Cardiovas cular Therapy Agents bumetanide 1 mg tablet 01-28 00:00: 00 Yes [id number] EDEMA 1 tablet DAILY 1 tablet DAILY (route: oral) Med Classific ation: Cardiovas cular Therapy Agents clopidogrel 75 mg tablet 01-28 00:00: 00 02-15 00:00 :00 No [id number] Per instruc tions Per instructio ns (route: oral) Med Classific ation: Hematolog ical Agents levothyroxi ne 88 mcg tablet 01-28 00:00: 00 02-15 00:00 :00 No [id number] Per instruc tions Per instructio ns (route: oral) Med Classific ation: Endocrine loperamide 2 mg capsule 01-28 00:00: 00 Yes [id number] DIAHREAH 1 capsule EVERY 6 HOURS 1 capsule EVERY 6 HOURS (route: oral) Med Classific ation: Gastroint estinal Therapy Agents mirtazapine 15 mg tablet 01-28 00:00: 00 Yes [id number] DEPRESSION 1 tablet DAILY 1 tablet DAILY (route: oral) Med Classific ation: Central Nervous System Agents nifedipine ER 60 mg tablet,exte nded release 01-28 00:00: 00 Yes [id number] BLOOD PRESSURE 1 tablet DAILY 1 tablet DAILY (route: oral) Med Classific ation: Cardiovas cular Therapy Agents ondansetron HCl 4 mg tablet 01-28 00:00: 00 Yes [id number] NAUSEA 1 tablet DAILY 1 tablet DAILY (route: oral) Med Classific ation: Gastroint estinal Therapy Agents clonazepam 0.5 mg tablet 01-18 00:00: 00 02-15 00:00 :00 No [id number] Per instruc tions TWICE DAILY NEEDED Per instructio ns TWICE DAILY NEEDED (route: oral) Med Classific ation: Central Nervous System Agents Aspirin Childrens 81 mg chewable tablet 02-15 00:00: 00 Yes [id number] HEART 1 tablet DAILY 1 tablet DAILY (route: oral) Med Classific ation: Hematolog ical Agents Lipitor 40 mg tablet 02-15 00:00: 00 Yes [id number] CHOLESTEROL 1 tablet BEDTIME 1 tablet BEDTIME (route: oral) Med Classific ation: Cardiovas cular Therapy Agents Plavix 75 mg tablet 02-15 00:00: 00 Yes [id number] HEART 1 tablet DAILY 1 tablet DAILY [...] TO EVALUATE, OBSERVE / ASSESS, AND MONITOR, PRODUCT CONTROL AND LOGISTICS ANALYST TO OBSERVE AND MONITOR, PROVIDE SKILLED THERAPEUTIC INTERVENTION, ACTIVITY, EDUCATION, AND TRAINING TO ADDRESS; [code = AGENCY MAY PERFORM A RESUMPTION OF CARE VISIT FOLLOWING ANY HOSPITAL ADMISSION. PT TO EVALUATE, OBSERVE / ASSESS, AND MONITOR, PRODUCT CONTROL AND LOGISTICS ANALYST TO OBSERVE AND MONITOR, PROVIDE SKILLED THERAPEUTIC INTERVENTION, ACTIVITY, EDUCATION, AND TRAINING TO ADDRESS;] Future Scheduled Test BED MOBILI TY (PT/PRODUCT CONTROL AND LOGISTICS ANALYST) [code = BED MOBILITY (PT/PRODUCT CONTROL AND LOGISTICS ANALYST)] Future Scheduled Test SIT TO/FRO M STAND TRANSFERS (PT/PRODUCT CONTROL AND LOGISTICS ANALYST) [code = SIT TO/FROM STAND TRANSFERS (PT/PRODUCT CONTROL AND LOGISTICS ANALYST)] Future Scheduled Test PT/PRODUCT CONTROL AND LOGISTICS ANALYST TO PROVIDE GAIT TRAINING FOR IMPROVED MOBILITY AND /OR TO NORMALIZE GAIT PATTERN [code = PT/PRODUCT CONTROL AND LOGISTICS ANALYST TO PROVIDE GAIT TRAINING FOR IMPROVED MOBILITY AND /OR TO NORMALIZE GAIT PATTERN] Future Scheduled Test THERAPEUTI C EXERCISES AND ESTABLISHING A HOME EXERCISE PROGRAM (PT/PRODUCT CONTROL AND LOGISTICS ANALYST) [code = THERAPEUTIC EXERCISES AND ESTABLISHING A HOME EXERCISE PROGRAM (PT/PRODUCT CONTROL AND LOGISTICS ANALYST)] Future Scheduled Test PT/PRODUCT CONTROL AND LOGISTICS ANALYST TO IDENTIFY FALL RISK FACTORS; EDUCATE THE PATIENT/CAREGIVER ON WAYS TO REDUCE FALL RISK FACTORS AND ESTABLISH HOME EXERCISE PROGRAM TO MINIMIZE FALL RISK. MAY TEACH THE PATIENT FLOOR RECOVERY WHEN CLINICALLY APPROPRIATE [code = PT/PRODUCT CONTROL AND LOGISTICS ANALYST TO IDENTIFY FALL RISK FACTORS; EDUCATE THE PATIENT/CAREGIVER ON WAYS TO REDUCE FALL RISK FACTORS AND ESTABLISH HOME EXERCISE PROGRAM TO MINIMIZE FALL RISK. MAY TEACH THE PATIENT FLOOR RECOVERY WHEN CLINICALLY APPROPRIATE] Future Scheduled Test PT / PRODUCT CONTROL AND LOGISTICS ANALYST T O EDUCATE ON DIABETES SELF- MANAGEMENT [code = PT / PRODUCT CONTROL AND LOGISTICS ANALYST TO EDUCATE ON DIABETES SELF- MANAGEMENT] Future Scheduled Test PT / PRODUCT CONTROL AND LOGISTICS ANALYST T O INSTRUCT PATIENT/CAREGIVER ON RISK FOR HOSPITALIZATION/EMERGENCY ROOM VISITS, TEACH SIGNS AND SYMPTOMS THAT PUT PATIENT AT RISK, WHEN TO NOTIFY NURSE/PHYSICIAN OF COMPLICATIONS/DECLINE, AND WHEN TO CALL 911. [code = PT / PRODUCT CONTROL AND LOGISTICS ANALYST TO INSTRUCT PATIENT/CAREGIVER ON RISK FOR HOSPITALIZATION/EMERGENCY ROOM VISITS, TEACH SIGNS AND SYMPTOMS THAT PUT PATIENT AT RISK, WHEN TO NOTIFY NURSE/PHYSICIAN OF COMPLICATIONS/DECLINE, AND WHEN TO CALL 911.] Future Scheduled Test PT / PRODUCT CONTROL AND LOGISTICS ANALYST T O MONITOR AND EDUCATE ON OXYGEN SATURATION DURING ADLS/IADLS, NOTIFY PHYSICIAN AND/OR THE RN CLINICAL AIRPLANE NAVIGATOR FOR PHYSICIAN NOTIFICATION AND IF O2 SATS BELOW PHYSICIAN ORDERED PARAMETERS AFTER 10 MIN OF REST [code = PT / PRODUCT CONTROL AND LOGISTICS ANALYST TO MONITOR AND EDUCATE ON OXYGEN SATURATION DURING ADLS/IADLS, NOTIFY PHYSICIAN AND/OR THE RN CLINICAL AIRPLANE NAVIGATOR FOR PHYSICIAN NOTIFICATION AND IF O2 SATS BELOW PHYSICIAN ORDERED PARAMETERS AFTER 10 MIN OF REST] Future Scheduled Test SKILLED NU RSING TO EVALUATE FOR WOUND ASSESSMENT, MEDICATION MANAGEMENT, BS CONTROL. [code = INTERMEDIATE TO EVALUATE FOR WOUND ASSESSMENT, MEDICATION MANAGEMENT, BS CONTROL.] Future Scheduled Test MEDICAL SO CIAL WORKER TO EVALUATE FOR COMMUNITY SERVICES [code = MARKET STALL VENDOR TO EVALUATE FOR COMMUNITY SERVICES] Future Scheduled [...] PERFORMANCE DRESSING (OT/DOMINGO) ACTIVITIES OF DAILY LIVING (OT/FEATHER STITCHER) BED TRANSFERS (OT/DOMINGO) WHEELCHAIR TRANSFER (OT/DOMINGO) WHEELCHAIR MANAGEMENT(OT/FEATHER STITCHER) POSTURAL CONTROL/BALANCE (OT/FEATHER STITCHER) THERAPEUTIC EXERCISE (OT/FEATHER STITCHER) OT TO ASSESS / DOMINGO TO MONITOR FOR HEART FAILURE EXACERBATION AND RECORD PATIENT REPORTED WEIGHT, AND NOTIFY THE PHYSICIAN AND/OR THE RN CLINICAL AIRPLANE NAVIGATOR FOR PHYSICIAN NOTIFICATION OF HF EXACERBATION (2LB WEIGHT GAIN IN 1 DAY, 5LBS IN A WEEK OR 5 LBS OVER BASELINE; INCREASED SOB, EDEMA, NEEDING MORE PILLOWS AT NIGHT, CRACKLES IN BASIS OF THE LUNGS OR PMI SHIFT). OT/FEATHER STITCHER TO MONITOR FOR HYPO/HYPERGLYCEMIA AND CONDUCT ROUTINE FOOT INSPECTIONS. RECORD PATIENT REPORTED BLOOD SUGAR LEVELS AND NOTIFY PHYSICIAN AND/OR THE RN CLINICAL AIRPLANE NAVIGATOR FOR PHYSICIAN NOTIFICATION IF BLOOD SUGAR LEVELS ARE OUTSIDE ORDERED PARAMETERS. TEACH PATIENT/CAREGIVER ON DAILY FOOT INSPECTIONS. [code = AGENCY MAY PERFORM A RESUMPTION OF CARE VISIT FOLLOWING ANY HOSPITAL ADMISSION. OT TO EVALUATE, OBSERVE / ASSESS, AND MONITOR, FEATHER STITCHER TO OBSERVE AND MONITOR, PROVIDE SKILLED THERAPEUTIC INTERVENTION, ACTIVITY, EDUCATION, AND TRAINING TO ADDRESS; IMPROVEMENT OF STRENGTH, ACTIVITY TOLERANCE, BALANCE, FOR SAFE IMPROVED FUNCTIONAL TRANSFERS, FUNCTIONAL MOBILITY AND SELF-CARE PERFORMANCE DRESSING (OT/FEATHER STITCHER) ACTIVITIES OF DAILY LIVING (OT/FEATHER STITCHER) BED TRANSFERS (OT/FEATHER STITCHER) WHEELCHAIR TRANSFER (OT/FEATHER STITCHER) WHEELCHAIR MANAGEMENT(OT/DOMINGO) POSTURAL CONTROL/BALANCE (OT/DOMINGO) THERAPEUTIC EXERCISE (OT/DOMINGO) OT TO ASSESS / FEATHER STITCHER TO MONITOR FOR HEART FAILURE EXACERBATION AND RECORD PATIENT REPORTED WEIGHT, AND NOTIFY THE PHYSICIAN AND/OR THE RN CLINICAL AIRPLANE NAVIGATOR FOR PHYSICIAN NOTIFICATION OF HF EXACERBATION (2LB WEIGHT GAIN IN 1 DAY, 5LBS IN A WEEK OR 5 LBS OVER BASELINE; INCREASED SOB, EDEMA, NEEDING MORE PILLOWS AT NIGHT, CRACKLES IN BASIS OF THE LUNGS OR PMI SHIFT). OT/FEATHER STITCHER TO MONITOR FOR HYPO/HYPERGLYCEMIA AND CONDUCT ROUTINE FOOT INSPECTIONS. RECORD PATIENT REPORTED BLOOD SUGAR LEVELS AND NOTIFY PHYSICIAN AND/OR THE RN CLINICAL AIRPLANE NAVIGATOR FOR PHYSICIAN NOTIFICATION IF BLOOD SUGAR LEVELS ARE OUTSIDE ORDERED PARAMETERS. TEACH PATIENT/CAREGIVER ON DAILY FOOT INSPECTIONS.] Future Scheduled Test MEDICAL SO CIAL SERVICES FOR COMMUNITY RESOURCE PLANNING. [code = MEDICAL FLAKE MILLER HELPER FOR COMMUNITY RESOURCE PLANNING.] Future Scheduled Test RN TO OBSE RVE, ASSESS, EVALUATE, AND DEVELOP AN INDIVIDUALIZED PLAN OF CARE. AGENCY MAY ACCEPT ORDERS FROM CONSULTING PHYSICIANS RN TO OBSERVE AND ASSESS, HELICOPTER PILOT INSTRUCTOR/BELT TENDER TO OBSERVE FOR RISK FOR FALLS AND INSTRUCT IN FALL PREVENTION, HOME SAFETY, MEDICATION MANAGEMENT, INFECTION PREVENTION, AND NUTRITION MANAGEMENT. RN/HELICOPTER PILOT INSTRUCTOR/BELT TENDER NURSE MAY PERFORM O2 SATURATION LEVEL ON ADMISSION AND PRN FOR RN TO ASSESS/HELICOPTER PILOT INSTRUCTOR TO OBSERVE PATIENT, WITH NOTIFICATION TO THE PHYSICIAN IF SATURATION IS 90% IN THE ABSENCE OF MORE SPECIFIC PARAMETERS FROM THE PHYSICIAN. AGENCY MAY PERFORM A RESUMPTION OF CARE VISIT FOLLOWING ANY HOSPITAL ADMISSION. RN/HELICOPTER PILOT INSTRUCTOR/BELT TENDER TO MONITOR CO-MORBID CONDITIONS LISTED ON THE PLAN OF CARE AND ANY NEW CONDITIONS THAT PRESENT THEMSELVES DURING THIS EPISODE TO IDENTIFY CHANGES AND INTERVENE TO MINIMIZE COMPLICATIONS. FALL REDUCTION MANAGEMENT; RN TO ASSESS AND OBSERVE, HELICOPTER PILOT INSTRUCTOR/BELT TENDER TO OBSERVE FALL RISK FACTORS AND EDUCATE PATIENT/CAREGIVER ON STRATEGIES TO MINIMIZE THE RISK OF FALLING. RISK FOR HOSPITALIZATION; RN TO ASSESS/TEACH, BELT TENDER/HELICOPTER PILOT INSTRUCTOR TO OBSERVE/TEACH PATIENT/CAREGIVER ON RISK FOR HOSPITALIZATION/EMERGENCY ROOM VISITS, TEACH SIGNS AND SYMPTOMS THAT PUT PATIENT AT RISK, WHEN TO NOTIFY NURSE/PHYSICIAN OF COMPLICATIONS/DECLINE, AND WHEN TO CALL 911. RN/HELICOPTER PILOT INSTRUCTOR/BELT TENDER TO PERFORM/TEACH PATIENT/CAREGIVER WOUND CARE PRESSURE INJURY [...] CONSULTING PHYSICIANS RN TO OBSERVE AND ASSESS, HELICOPTER PILOT INSTRUCTOR/BELT TENDER TO OBSERVE FOR RISK FOR FALLS AND INSTRUCT IN FALL PREVENTION, HOME SAFETY, MEDICATION MANAGEMENT, INFECTION PREVENTION, AND NUTRITION MANAGEMENT. RN/HELICOPTER PILOT INSTRUCTOR/BELT TENDER NURSE MAY PERFORM O2 SATURATION LEVEL ON ADMISSION AND PRN FOR RN TO ASSESS/HELICOPTER PILOT INSTRUCTOR TO OBSERVE PATIENT, WITH NOTIFICATION TO THE PHYSICIAN IF SATURATION IS 90% IN THE ABSENCE OF MORE SPECIFIC PARAMETERS FROM THE PHYSICIAN. AGENCY MAY PERFORM A RESUMPTION OF CARE VISIT FOLLOWING ANY HOSPITAL ADMISSION. RN/HELICOPTER PILOT INSTRUCTOR/BELT TENDER TO MONITOR CO-MORBID CONDITIONS LISTED ON THE PLAN OF CARE AND ANY NEW CONDITIONS THAT PRESENT THEMSELVES DURING THIS EPISODE TO IDENTIFY CHANGES AND INTERVENE TO MINIMIZE COMPLICATIONS. FALL REDUCTION MANAGEMENT; RN TO ASSESS AND OBSERVE, HELICOPTER PILOT INSTRUCTOR/BELT TENDER TO OBSERVE FALL RISK FACTORS AND EDUCATE PATIENT/CAREGIVER ON STRATEGIES TO MINIMIZE THE RISK OF FALLING. RISK FOR HOSPITALIZATION; RN TO ASSESS/TEACH, BELT TENDER/HELICOPTER PILOT INSTRUCTOR TO OBSERVE/TEACH PATIENT/CAREGIVER ON RISK FOR HOSPITALIZATION/EMERGENCY ROOM VISITS, TEACH SIGNS AND SYMPTOMS THAT PUT PATIENT AT RISK, WHEN TO NOTIFY NURSE/PHYSICIAN OF COMPLICATIONS/DECLINE, AND WHEN TO CALL 911. RN/HELICOPTER PILOT INSTRUCTOR/BELT TENDER TO PERFORM/TEACH PATIENT/CAREGIVER WOUND CARE PRESSURE INJURY [...] End Date/Time Encounter Type Admission Type Attending [facility] Care Department Encounter ID Discharge Date Discharge Status Discharge Condition Discharge Reason Percent Goals Met 2025-02-15 00:00:00 2025-04-15 00:00:00 Outpatient KEESHA GUERRERO [facility] [id number] [id number]
== END 2025-04-05 18:56 | DRG 264 ==
LOC: ER 22:10 → 2ND 03-29 00:47
PROVIDERS: Internal Medicine Adolescent Medicine; Nurse Practitioner; Admitting Provider Student in an Organized Health Care Education/Training Program; Emergency Provider Student in an Organized Health Care Education/Training Program; PCP Internal Medicine; Visit Provider Student in an Organized Health Care Education/Training Program
DX: I13.0 Hypertensive heart and chronic kidney disease with heart failure and stage 1 through stage 4 chronic kidney disease, or unspecified chronic kidney disease (principal); L89.623 Pressure ulcer of left heel, stage 3; I50.33 Acute on chronic diastolic (congestive) heart failure; N18.4 Chronic kidney disease, stage 4 (severe); N17.9 Acute kidney failure, unspecified; N39.0 Urinary tract infection, site not specified; L97.411 Non-pressure chronic ulcer of right heel and midfoot limited to breakdown of skin; L97.421 Non-pressure chronic ulcer of left heel and midfoot limited to breakdown of skin; C91.10 Chronic lymphocytic leukemia of B-cell type not having achieved remission; I31.39 Other pericardial effusion (noninflammatory); E11.22 Type 2 diabetes mellitus with diabetic chronic kidney disease; E11.51 Type 2 diabetes mellitus with diabetic peripheral angiopathy without gangrene; E03.9 Hypothyroidism, unspecified; E11.621 Type 2 diabetes mellitus with foot ulcer; D63.1 Anemia in chronic kidney disease; I08.1 Rheumatic disorders of both mitral and tricuspid valves; I25.10 Atherosclerotic heart disease of native coronary artery without angina pectoris; K21.9 Gastro-esophageal reflux disease without esophagitis; M20.41 Other hammer toe(s) (acquired), right foot; M20.42 Other hammer toe(s) (acquired), left foot; L89.610 Pressure ulcer of right heel, unstageable; L57.0 Actinic keratosis; L60.3 Nail dystrophy; B96.20 Unspecified Escherichia coli [E. coli] as the cause of diseases classified elsewhere; B96.89 Other specified bacterial agents as the cause of diseases classified elsewhere; B95.7 Other staphylococcus as the cause of diseases classified elsewhere; R53.1 Weakness; R06.89 Other abnormalities of breathing; R93.1 Abnormal findings on diagnostic imaging of heart and coronary circulation; Z74.1 Need for assistance with personal care; Z98.62 Peripheral vascular angioplasty status; Z79.01 Long term (current) use of anticoagulants; Z79.4 Long term (current) use of insulin; Z79.02 Long term (current) use of antithrombotics/antiplatelets; Z79.890 Hormone replacement therapy; Z79.899 Other long term (current) drug therapy; Z88.1 Allergy status to other antibiotic agents; Z88.2 Allergy status to sulfonamides; Z88.8 Allergy status to other drugs, medicaments and biological substances
CPT/HCPCS: 36415; 36430; 51702; 71045; 73630; 74176; 80048; 80053; 81001; 82009; 82803; 82962; 83036; 83605; 83690; 83735; 83880; 84484; 85007; 85014; 85018; 85025; 85378; 85610; 86850; 87040; 87070; 87077; 87086; 87088; 87186; 87205; 93005; 93306; 94640; 97110; 97162; 97166; 97530; 99285; J1650; J1938; J1939; J2543; J3375; J3475; J7050; P9016; P9047